=== PATIENT | male | born 1945 | race Caucasian/White ===

== ENCOUNTER 2017-06-11 12:09 | Inpatient (IN) | payer OTHER, MEDICARE ==
--- NOTE | 2017-06-11 15:01 | PDOC ---
History of Present Illness - General Chief Complaint: Weakness Stated Complaint: PCP SENT Time Seen by Provider: 06/11/17 13:31 History Source: Patient, Parent(s) Exam Limitations: No Limitations - History of Present Illness Initial Comments: This is a 71 YOM with h/o chronic worsening anemia, worsening renal function now CKD stage 4, IDDM, CAD with PR, HTN, and HLD who presents with generalized weakness, dizziness, exacerbated chronic dyspnea on exertion, fatigue, and mild intermittent LLQ pain. He was sent by Dr. Leslie with plan for admission for inpatient workup of his worsening anemia and worsening renal function. Reportedly the patient had a colonoscopy scheduled for Sunday which had to be cancelled because his providers did not believe he was stable to do this procedure as an outpatient. The patient's family reports that he has occasional blood in the stool but this is rare to their knowledge. He had an occult blood test positive recently. Past History - Past Medical History Allergies/Adverse Reactions: Allergies Allergy/AdvReac Type Severity Reaction Status Date / Time acetaminophen [From Percocet] AdvReac Intermediate nausea Verified 06/11/17 12: 28 oxycodone HCl [From Percocet] AdvReac Intermediate nausea Verified 06/11/17 12: 28 ticagrelor [From BRILINTA] AdvReac Intermediate Verified 06/11/17 12:28 Home Medications: Ambulatory Orders Cholecalciferol (Vitamin D3) [Vitamin D3] 1,000 unit PO DAILY tablet 09/02/12 Clopidogrel Bisulfate [Clopidogrel] 75 mg PO DAILY #90 tablet 01/10/16 Tamsulosin HCl 0.4 mg PO 2 QPM 05/19/16 Furosemide 40 mg PO DAILY tablet 08/14/16 Aspirin [ASA -] 81 mg PO DAILY 06/11/17 Carvedilol 12.5 mg PO BID 06/11/17 Famotidine 20 mg PO ASDIR 06/11/17 Anemia: Yes (taking iron) Asthma: No Cancer: No Cardiac Disorders: Yes (CAD) CVA: No COPD: No CHF: No Dementia: No Diabetes: Yes (x41 yrs) GI Disorders: Yes (GERD) Disorders: No HTN: Yes Hypercholesterolemia: Yes Liver Disease: No Seizures: No Thyroid Disease: No - Surgical History Abdominal Surgery: Yes (Left Inguinal Hernia Repair) Appendectomy: No Cardiac Surgery: Yes (Bypass Surgery 18 yrs ago, Followed by Stents placement x2 ) Cholecystectomy: No Lung Surgery: No Neurologic Surgery: No Orthopedic Surgery: Yes (Laminectomy) - Immunization History Immunization Up to Date: Yes - Suicide/Smoking/Psychosocial Hx Smoking History: Former smoker Have you smoked in the past 12 months: No If you are a former smoker, when did you quit?: 30YRS Information on smoking cessation initiated: No Hx Alcohol Use: No Drug/Substance Use Hx: No Substance Use Type: None Hx Substance Use Treatment: No Review of Systems - Review of Systems Constitutional: Yes: Weakness. No: Chills, Fever, Unexplained wgt Loss HEENTM: No: Nose Congestion, Throat Pain Respiratory: Yes: SOB with Exertion. No: Cough, Productive cough Cardiac (ROS): Yes: Lightheadedness. No: Chest Pain, Palpitations, Syncope ABD/GI: Yes: Other (mild left lower abdominal pain). No: Constipated, Diarrhea , Nausea, Vomiting : No: Burning, Dysuria Musculoskeletal: Yes: Back Pain (chronic). No: Neck Pain Integumentary: No: Bruising, Rash Neurological: Yes: Dizziness. No: Headache, Numbness, Tingling, Weakness Endocrine: No: Unexplained Weight Gain, Unexplained Weight Loss *Physical Exam - Vital Signs Last Vital Signs Temp Pulse Resp BP Pulse Ox 97.6 F 56 L 18 147/63 97 06/11/17 12:29 06/11/17 12:29 06/11/17 12:29 06/11/17 12:29 06/11/17 12:29 - Physical Exam General Appearance: Yes: Nourished, Appropriately Dressed, Other (pale, conversive, answering questions appropriately). No: Apparent Distress HEENT: positive: EOMI, SRINIVASAN, Normal ENT Inspection, Normal Voice, Hearing Grossly Normal. negative: Scleral Icterus (R), Scleral Icterus (L), Nasal Congestion Neck: positive: Trachea midline, Supple. negative: Tender, Rigid Respiratory/Chest: positive: Lungs Clear, Normal Breath Sounds. negative: Respiratory Distress, Crackles, Rhonchi, Stridor, Wheezing Cardiovascular: positive: Regular Rhythm, Regular Rate. negative: Edema, Murmur Gastrointestinal/Abdominal: positive: Normal Bowel Sounds, Soft. negative: Tender, Organomegaly, Pulsatile Mass, Guarding Musculoskeletal: positive: Normal Inspection. negative: CVA Tenderness, Decreased Range of Motion, Vertebral Tenderness Extremity: positive: Normal Capillary Refill, Normal Inspection, Normal Range of Motion. negative: Tender, Cyanosis Integumentary: positive: Normal Color, Dry, Warm, Pale. negative: Erythema, Rash, Bruising Neurologic: positive: building mover II-XII NML intact (grossly), Fully Oriented, Alert, Normal Mood/Affect, Normal Response, Motor Strength / ED Treatment Course - LABORATORY CBC & Chemistry Diagram: 06/12/17 06:00 06/12/17 06:00 Medical Decision Making - Medical Decision Making 71 YOM with worsening chronic anemia, CKD 4, IDDM, HTN, HLD, CAD with PR. Sent by his OP providers with instructions from Dr. Isac Leslie for admission an inpatient workup. Pt not stable for outpatient workup, colonoscopy cancelled recently for this reason. Pt and family note insidiously worsening pallor, TUCKER, fatigue, dizziness. On exam Pt is pale but otherwise normal exam, no tenderness. Ordered is CBCD, CMP, Mg, Phos, EKG, coags, lactate, FOB, UA cx. 06/11/17 15:[address] Del Valle, Pt's OP provider, who notes patient is to be admitted to hospitalist. Pending lab results. 06/11/17 17:06 Hgb 9.9, INR 1.25, BUN/Cr 104/4.5. Symphony microblogged and Pt admitted. *DC/Admit/Observation/Transfer Diagnosis at time of Disposition: Anemia Qualifiers: Anemia type: unspecified type Qualified Code(s): D64.9 - Anemia, unspecified Chronic kidney disease Qualifiers: Chronic kidney disease stage: stage 4 (severe) Qualified Code(s): N18.4 - Chronic kidney disease, stage 4 (severe) - Discharge Dispostion Condition at time of disposition: Guarded Admit: Yes
[2017-06-11 15:45] LABS: MCHC 33.8 g/dl (32.0-35.9); MEAN CELL VOLUME 85.7 fl (80-96); MEAN PLT VOLUME 7.1 fl (7.5-11.1); NEUTROPHILS 67.5 % (42.8-82.8); PLATELET COUNT 182 K/MM3 (134-434); RDW 15.5 % (11.9-15.9); WHITE BLOOD COUNT 4.7 K/mm3 (4.0-10.0)
[2017-06-11 16:13] LABS: ALBUMIN 3.4 g/dl (3.4-5.0); ANION GAP 13 (8-16); CALCIUM 7.9 mg/dL (8.5-10.1); CO2 23 mmol/L (21-32); CREATININE 4.5 mg/dL (0.7-1.3); GLUCOSE,RANDOM 249 mg/dL (74-106); MAGNESIUM 2.5 mg/dL (1.8-2.4); PHOSPHOROUS 5.6 mg/dL (2.5-4.9); SGOT/AST 16 U/L (15-37); SGPT/ALT 23 U/L (12-78)
[2017-06-11 16:15] LABS: ALK PHOS 108 U/L (45-117); BILIRUBIN,TOTAL 0.4 mg/dL (0.2-1.0); TOT PROT 7.2 g/dl (6.4-8.2)
[2017-06-11 16:36] LABS: INR 1.25 (0.82-1.09); PROTHROMBIN TIME (PATIENT) 14.1 SEC (9.98-11.88)
[2017-06-11 16:39] LABS: ACTIVATED PTT 31.8 SECONDS (26.9-34.4)
--- NOTE | 2017-06-11 17:02 | PDOC ---
Attending Attestation - HPI HPI: 06/11/17 17:05 71 y/o M with a PMHx of HTN, HLD, DM, CKD stage IV sent to ED by wool hanker for worsening anemia and renal function. Patient complains of fatigue and SOB, with occasional chest pain. He also reports LLQ pain and dark red blood per rectum. Patient had a colonoscopy scheduled for Sunday which had to be cancelled because his providers did not believe he was stable to do this procedure as an outpatient. Denies fever, chills. Denies nausea, vomiting, diarrhea. PCP: Dr. Bernardo Del Valle Director Of Restaurant Operations: Dr. Isac Leslie - Physicial Exam PE: 06/11/17 17:05 GENERAL: Awake, alert, and fully oriented, in no acute distress HEAD: No signs of trauma EYES: PERRLA, EOMI, sclera anicteric, conjunctiva clear ENT: Auricles normal inspection, hearing grossly normal, nares patent, oropharynx clear without exudates. Moist mucosa NECK: Normal ROM, supple, no lymphadenopathy, JVD, or masses LUNGS: Breath sounds equal, clear to auscultation bilaterally. No wheezes, and no crackles HEART: Regular rate and rhythm, normal S1 and S2, no murmurs, rubs or gallops ABDOMEN: Mild LLQ tenderness. Soft, normoactive bowel sounds. No guarding, no rebound. No masses EXTREMITIES: Warm, well perfused NEUROLOGICAL: A&Ox3 SKIN: Warm, Dry, normal turgor, no rashes or lesions noted. Pale. - Medical Decision Making 06/11/17 17:05 Documentation prepared by Kierra Zamarripa, acting as diagnostic medical sonographer for Alma Higginbotham MD. <Kierra Zamarripa - Last Filed: 06/11/17 17:05> - Resident Resident Name: Shameka Carver - ED Attending Attestation I have performed the following: I have examined & evaluated the patient, The case was reviewed & discussed with the resident, I agree w/resident's findings & plan, Exceptions are as noted - HPI HPI: 06/11/17 17:01 - Medical Decision Making 06/11/17 17:01 71 YOM with h/o chronic worsening anemia, worsening renal function now CKD stage 4, IDDM, CAD with [place], HTN, and HLD. only c/o worsening fatigue and pallor. denies melena. no f/c no chest pain. differential worsening renal function, gi bleed, electrolyte abnormality, acs. plan ekg labs cxr, will admit . <Alma Higginbotham - Last Filed: 06/11/17 17:09> Heart Score/ECG Review #1 General ECG Interpretation: Sinus Rhythm, Normal Rate, Normal Intervals, No acute ischemic changes (TWi I, AVL) Compared to previous ECG there are: No significant change (comparison 07/23/15) <Alma Higginbotham - Last Filed: 06/11/17 17:09>
[2017-06-11 17:13] LABS: PH,URINE 5.5 (5.0-8.0); URINE APPEARANCE CLEAR; URINE BILIRUBIN NEGATIVE (NEGATIVE); URINE BLOOD 1+ (NEGATIVE); URINE COLOR LT. YELLOW; URINE GLUCOSE (UA) 1+ (NEGATIVE); URINE KETONE NEGATIVE (NEGATIVE); URINE NITRITE NEGATIVE (NEGATIVE); URINE UROBILINOGEN 0.2 mg/dL (0.2-1.0)
[2017-06-11 17:17] LABS: URINE PROTEIN 2+ (NEGATIVE)
--- NOTE | 2017-06-11 18:24 | HP ---
Admitting History and Physical - Primary Care Physician PCP: Bernardo Del Valle - Admission Chief Complaint: sent by PCP History of Present Illness: 71M PMH of chronic anemia on iron, CKD stage 4, IDDM, [place] in the past CAD s/p CABG and subsequent stent x2, HTN, and HLD who presents to the ED sent in by Dr. Fernandez for further work up. Patient was supposed to have EGD/colonoscopy today but that was held as outpatient providers feel like he is too high of a risk to have procedures done as outpatient. patient is also currently being worked up for malignancy, anemia and GI bleed. other than EGD/Colonoscopy patient was supposed to have bone marrow biopsy by Dr. Lisa. According to Dr. Fernandez patient has been having worsening of his renal failure and anemia. He has also been having occasional blood with his stools. The patient reports generalized weakness, dizziness, exacerbated chronic dyspnea on exertion, fatigue, and mild intermittent LLQ pain. Per ED chart the patient's family reports that he has occasional blood in the stool. Patient stated he was told the testing on his stool was positive for blood recently. On review of his recent labs within the last 6 months the patient's Creatinine has been worsening. He also had a positive urine protein electrophoresis in November and January of this year. He denies nausea vomiting fevers chills chest pain or shortness of breath. He does endorse he occasionally coughs up blood. Of note patient seems to be a poor historian. Patient has had his plavix held since 06/07 in anticipation for procedures. History Source: Patient, Medical Record Limitations to Obtaining History: Clinical Condition, Poor Historian - Past Medical History Additional Past Medical History: HTN HLD CAD history of [place] s/p CAG and stent x2 CKD stage 4 iron deficiency anemia GI bleed possible malignancy ? Multiple myeloma - Past Surgical History Additional Past Surgical History: CABG and cath with stent x 2 - Smoking History Smoking history: Former smoker Have you smoked in the past 12 months: No If you are a former smoker, when did you quit?: 30YRS - Alcohol/Substance Use Hx Alcohol Use: No Home Medications - Allergies Allergies/Adverse Reactions: Allergies Allergy/AdvReac Type Severity Reaction Status Date / Time acetaminophen [From Percocet] AdvReac Intermediate nausea Verified 06/11/17 12: 28 oxycodone HCl [From Percocet] AdvReac Intermediate nausea Verified 06/11/17 12: 28 ticagrelor [From BRILINTA] AdvReac Intermediate Verified 06/11/17 12:28 - Home Medications Home Medications: Ambulatory Orders Cholecalciferol (Vitamin D3) [Vitamin D3] 1,000 unit PO DAILY tablet 09/02/12 Clopidogrel Bisulfate [Clopidogrel] 75 mg PO DAILY #90 tablet 01/10/16 Tamsulosin HCl 0.4 mg PO 2 QPM 05/19/16 Furosemide 40 mg PO DAILY tablet 08/14/16 Aspirin [ASA -] 81 mg PO DAILY 06/11/17 Carvedilol 12.5 mg PO BID 06/11/17 Famotidine 20 mg PO ASDIR 06/11/17 Family Disease History - Family Disease History Family Disease History: CA: Mother, Sister Review of Systems Findings/Remarks: ROS positive for weakness dizziness constipation likely from iron dyspnea on exertion LLQ pain fatigue Physical Examination Vital Signs: Vital Signs Temperature 98.4 F 06/11/17 16:33 Pulse Rate 71 06/11/17 16:33 Respiratory Rate 16 06/11/17 16:33 Blood Pressure 184/70 06/11/17 16:33 O2 Sat by Pulse Oximetry (%) 98 06/11/17 16:33 Constitutional: Yes: Well Nourished, No Distress, Other (pale appearing skin) Eyes: Yes: Other (conjunctival pallor) HENT: Yes: Atraumatic Neck: Yes: Supple Cardiovascular: Yes: Regular Rate and Rhythm Respiratory: Yes: CTA Bilaterally Gastrointestinal: Yes: Soft, Other (patient vaguely complained on diffuse tenderness on exama mostly in the LLQ) ...Rectal Exam: Yes: Other (see attending note) Edema: No ...Motor Strength: WNL Psychiatric: Yes: Alert Labs: CBC, BMP 06/11/17 14:50 06/11/17 14:50 Imaging - Results Chest X-ray: Other (ordered) EKG: Report Reviewed, Image Reviewed Assessment/Plan 71M with multiple medical problems presents to the ED for continued evaluation of his worsening anemia and worsening CKD. Problem list: Worsening CKD although it could be CHIARA on CKD Anemia-iron deficiency vs anemia of chronic disease rectal Bleed-likely lower GI bleed-diverticulosis vs fissure vs hemorrhoids HTN HLD IDDM CAD Possible Cancer constipation uremia possibly minimally volume overloaded hemoptysis Plan: Admit to inpatient services Med/surg Hold plavix hold aspirin consult GI for EGD/Colonoscopy consult vascular for AVF consult heme/onc for bone marrow biopsy consult renal for continued evaluation of worsening CKD and evaluation for future dialysis start stool softeners patient possible having platelet dysfunction from uremia hold IVF hold lasix for now but may need it in the near future during this hospital stay CXR Urinalysis urine protein to creatinine ratio renal ultrasound bladder ultrasound will need to verify home meds and restart hold nephrotoxic drugs such as NSAIDs LUZMARIA-inhibitors/ARBs etc no IVF DVT PPx PT consult BGM ISS B12 folate fecal occult repeat Iron studies Case disussed with attending Dr Spicer Case disussed with Dr. Michelle Fernandez Case discussed with admitting partner marketing intern Full H&P to follow Visit type - Emergency Visit Emergency Visit: Yes ED Registration Date: 06/11/17 Care time: The patient presented to the Emergency Department on the above date and was hospitalized for further evaluation of their emergent condition. - New Patient This patient is new to me today: Yes Date on this admission: 06/11/17 - Critical Care Critical Care patient: No
[2017-06-11] MEDS ORDERED: POLYETHYLENE GLYCOL 3350 119 GM BTL PO PRN (19:45)
--- NOTE | 2017-06-11 19:48 | PN ---
Teaching Attending Note Name of Resident: Manuela Chang ATTENDING PHYSICIAN STATEMENT I saw and evaluated the patient. I reviewed the resident's note and discussed the case with the resident. I agree with the resident's findings and plan as documented. SUBJECTIVE: CC: sent by Dr. Henry Fernandez for w/u of anemia and worsening renal failure . he is a poor historian HPI: 71 y/o pleasant gentleman with h/o hypertension, hyperlipidemia, osteomyletis, polyneuropathy,IDDM , CAD status post MD status post CABG status post stents, and status post right hip replacement surgery, who presented for w /u of his anemia and worsening renal failur e He recently had w/u as outpt which indicated worsening labs. he had SPEP and UPEP done in 01/20, and last iron studies in system from 2010.He complains of BRBPR only when he wipes himself. He complains of constipation, he denies hematuria. he reported broan sputum and sometimes hemoptysis , minimal amounts . He has intermittent chronic abd pain in L side , which feels like shooting pain , that lasts 2 min. reports TUCKER. no fever or cough, reports chills. OBJECTIVE: NAD, pleasant and cooperative HEENT: NC, AT. MMM, no JVD. EOMI, round equal pupils , reactive to light . CV: RRR, no MRG Lungs: CTAB Abd: soft, minimal tenderness to palpationin all quadrants, no rebound tenderness or guarding. NL bS Ext: 1+ pitting edema. no tenia pedis. no ulcers on feet Neuro : EOMI, round equal pupils , reactive to light . no facial droop.Nl facial sensation . tongue and uvula at midline . Strength 5/5 in upper and lower extremities proximally and distally. sensation to light touch NL . reflexes 1+ knee jerk and 2+ biceps reflexes b/l Recta: nl hair distribution, no external hemorrhoids , no internal hemorrhoids, . small balls of stool felt in rectum. guaiac + ASSESSMENT AND PLAN: 71 y/o pleasant gentleman with h/o hypertension, hyperlipidemia, osteomyletis, polyneuropathy,IDDM , CAD status post MD status post CABG status post stents, and status post right hip replacement surgery, who presented for w/u of his anemia and worsening renal failure 1- Worsening renal failure: Cr 3.7 in 6/17. Doubt CHIARA. likely progression of his CKD. No renal bx was done before Likely cause of renal disease is HTN and DM, but given his anemia and his age , MM is in DDx. He is not on NSAIDs or ACEi/ARBS. - check renal US ( last one insystem 08/22) - check Urine protein / cr ratio - check UA - renal consult - He has signs and sx of mild fluid overload. but no indication of acute HD now - consult vascular to evaluate for graft - No IVF . - hold home lasix, will probably resume soon 2- Chronic normocytic anemia: Hb at base line. likely due to Dm and renal disease. As above, WARD is in DDX. SPEP in 02/19 with Nl immunofixation. reported rectal bleed could be due to hemorrhoidal bleed in setting of constipation. rectal exam with + OB . no hemorrhoids or masses felt No recent iron studies in system. - check iron studies, B12, folate - Heme consult . - GI consult for colonoscopy - No need to repeat SPEP and UPEP. had a skeletal survey 02/19 no lytic lesions 3- Rectal bleed: likely lower GI bleed from an internal hemorrhoids. I do not suspect diverticular bleed or any ischemic colitis . colon cancer can't be r/o dysfunctional plt might be contributing . - GI consult , will need colonoscopy and EGD - monitor HB 4- reported occasional Hemoptysis. former smoker. - cxray - observe .stable HB . rest as out pt 5- DM : - levemir 20 HS - SSI AC 6- HTN: will confirm meds. - cont coreg - No ARBs or ACEI at this time 7- h/o CAD: - cont BB - hold ASA and plavix for any procedure .( plavix taken 06/07) 8- DVT PX : heparin sq HLOC Will confirm meds
[2017-06-11 20:31] VITALS: BMI 27.5
--- NOTE | 2017-06-11 21:23 | HP ---
CHIEF COMPLAINT: sent by Cable Former PCP: Dr. Del Valle Cable Former: Dr. Isac Seymour Heme-Oncologist: Dr. Lisa HISTORY OF PRESENT ILLNESS: 71yo M with PMH of chronic anemia, worsening CKD stage IV, IDDM, CAD with CO, htn, hld, presents for work-up of his worsening kidney function and chronic anemia. SPEP adn UPEP showing no M spike in 01/2017. Iron studies wnl, last assessed in 2010. Pt reports exacerbated chronic dyspnea on exertion and fatigue. Pt also reports intermittent hemoptysis, intermittent brbpr (small amount on toilet tissue), and intermittent abdominal pain (worse on movement, not present on exam). Pt denies sick contacts. Pt is a poor historian. ER course was notable for: (1) cbc -> H/H 9.9/29.3, cmp -> BUN/Cr 103/4.5, elevated phos and mg (2) UA (-) for UTI Recent Travel: denies PAST MEDICAL HISTORY: chronic anemia CKD Stage IV CAD with CO IDDM x 41 yrs, with neuropathy htn hld GERD osteomyelitis PAST SURGICAL HISTORY: Left inguinal hernia repair CABG s/p 2 stents laminectomy Right hip replacement Social History: Smoking: former, quit 30 yrs ago Alcohol: denies Drugs: denies Family History: mom - DM, of cancer (unknown type) at age 69 sister - of cancer (unknown type) at age 62 son - htn Allergies acetaminophen [From Percocet] Adverse Reaction (Intermediate, Verified 06/11/17 12:28) nausea oxycodone HCl [From Percocet] Adverse Reaction (Intermediate, Verified 06/11/17 12:28) nausea ticagrelor [From BRILINTA] Adverse Reaction (Intermediate, Verified 06/11/17 12: 28) HOME MEDICATIONS: Home Medications Medication Instructions Recorded Cholecalciferol (Vitamin D3) 1,000 unit PO DAILY tablet 09/02/12 [Vitamin D3] Clopidogrel Bisulfate [Clopidogrel] 75 mg PO DAILY #90 tablet 01/10/16 Tamsulosin HCl 0.4 mg PO 2 QPM 05/19/16 Furosemide 40 mg PO DAILY tablet 08/14/16 Aspirin [ASA -] 81 mg PO DAILY 06/11/17 Carvedilol 12.5 mg PO BID 06/11/17 Famotidine 20 mg PO ASDIR 06/11/17 REVIEW OF SYSTEMS CONSTITUTIONAL: Present: generalized weakness Absent: fever, chills, diaphoresis, weight change HEENT: Absent: rhinorrhea, nasal congestion, throat pain,ear pain, eye pain, visual changes CARDIOVASCULAR: Absent: chest pain, syncope, palpitations, irregular heart rate, lightheadedness , peripheral edema RESPIRATORY: Present: dyspnea on exertion (chronic), hemoptysis (intermittent, small amount) Absent: cough, shortness of breath, wheezing, stridor GASTROINTESTINAL: Present: abdominal pain (intermittent), constipation (chronic), hematochezia ( intermittent, small amount) Absent: abdominal distension, nausea, vomiting, diarrhea, melena GENITOURINARY: Absent: dysuria, hematuria SKIN: Absent: rash, itching, pallor HEMATOLOGIC/IMMUNOLOGIC: Absent: easy bleeding, easy bruising PHYSICAL EXAMINATION Vital Signs - 24 hr 06/11/17 18:26 Temperature 97.8 F Pulse Rate [ 60 Left Apical] Respiratory 16 Rate Blood Pressure 185/79 [Right Arm] O2 Sat by Pulse 96 Oximetry (%) GENERAL: Awake, alert, and fully oriented, in no acute distress. HEAD: Normal with no signs of trauma. EYES: Pupils equal, round and reactive to light, extraocular movements intact, sclera anicteric. EARS, NOSE, THROAT: Ears normal, nares patent, oropharynx clear without exudates. Moist mucous membranes. NECK: Supple without lymphadenopathy, JVD, or masses. LUNGS: Breath sounds equal, clear to auscultation bilaterally. No wheezes, and no crackles. No accessory muscle use. HEART: Regular rate and rhythm, normal S1 and S2 without murmur, rub or gallop. ABDOMEN: Soft, nontender, not distended, normoactive bowel sounds, no guarding, no rebound, no masses. MUSCULOSKELETAL: No bony deformities or tenderness. Muscle strength 5/5 for hip flexion, plantar flexion, dorsiflextion, shoulder abduction, elbow flexion/ extension, hand squeeze. UPPER EXTREMITIES: Warm, well-perfused. No cyanosis. No clubbing. No peripheral edema. LOWER EXTREMITIES: 2+ pulses, warm, well-perfused. No calf tenderness. No peripheral edema. NEUROLOGICAL: Sensation intact throughout. Slight decrease in sensation to kylie feet, symmetric. PSYCHIATRIC: Cooperative. Good eye contact. Appropriate mood and affect. SKIN: Warm, dry, normal turgor, no rashes or lesions noted. Laboratory Results - last 24 hr 06/11/17 06/11/17 06/11/17 14:50 14:50 14:50 WBC 4.7 RBC 3.42 L Hgb 9.9 L Hct 29.3 L MCV 85.7 MCH 29.0 MCHC 33.8 RDW 15.5 Plt Count 182 MPV 7.1 L Neutrophils % 67.5 Lymphocytes % 13.6 Monocytes % 14.9 H Eosinophils % 3.0 Basophils % 1.0 Total Absolute Neuts 3.20 PT with INR INR PTT (Actin FS) Sodium 137 Potassium 4.1 Chloride 101 Carbon Dioxide 23 Anion Gap 13 BUN 103 H Creatinine 4.5 H Creat Clearance w eGFR 12.98 Random Glucose 249 H Lactic Acid Calcium 7.9 L Phosphorus 5.6 H Magnesium 2.5 H Total Bilirubin 0.4 AST 16 ALT 23 Alkaline Phosphatase 108 Total Protein 7.2 Albumin 3.4 Urine Color Urine Appearance Urine pH Ur Specific [place] Urine Protein Urine Glucose (UA) Urine Ketones Urine Blood Urine Nitrite Urine Bilirubin Urine Urobilinogen Urine RBC Urine WBC Ur Epithelial Cells Stool Occult Blood Blood Type Antibody Screen 06/11/17 06/11/17 06/11/17 14:50 14:50 14:50 WBC RBC Hgb Hct MCV MCH MCHC RDW Plt Count MPV Neutrophils % Lymphocytes % Monocytes % Eosinophils % Basophils % Total Absolute Neuts PT with INR 14.10 H INR 1.25 H PTT (Actin FS) 31.8 Sodium Potassium Chloride Carbon Dioxide Anion Gap BUN Creatinine Creat Clearance w eGFR Random Glucose Lactic Acid 1.3 Calcium Phosphorus Magnesium Total Bilirubin AST ALT Alkaline Phosphatase Total Protein Albumin Urine Color Urine Appearance Urine pH Ur Specific [place] Urine Protein Urine Glucose (UA) Urine Ketones Urine Blood Urine Nitrite Urine Bilirubin Urine Urobilinogen Urine RBC Urine WBC Ur Epithelial Cells Stool Occult Blood Blood Type B POSITIVE Antibody Screen Negative 06/11/17 06/11/17 17:00 Unknown WBC RBC Hgb Hct MCV MCH MCHC RDW Plt Count MPV Neutrophils % Lymphocytes % Monocytes % Eosinophils % Basophils % Total Absolute Neuts PT with INR INR PTT (Actin FS) Sodium Potassium Chloride Carbon Dioxide Anion Gap BUN Creatinine Creat Clearance w eGFR Random Glucose Lactic Acid Calcium Phosphorus Magnesium Total Bilirubin AST ALT Alkaline Phosphatase Total Protein Albumin Urine Color Lt. yellow Urine Appearance Clear Urine pH 5.5 Ur Specific [place] 1.015 Urine Protein 2+ H Urine Glucose (UA) 1+ H Urine Ketones Negative Urine Blood 1+ H Urine Nitrite Negative Urine Bilirubin Negative Urine Urobilinogen 0.2 Urine RBC 2-5 Urine WBC None Ur Epithelial Cells Rare Stool Occult Blood Negative Blood Type Antibody Screen ASSESSMENT/PLAN: 71yo M with PMH of chronic anemia, worsening CKD stage IV, IDDM, CAD with CO, htn, hld, presents for work-up of his worsening kidney function and chronic anemia. 1) worsening renal failure - likely progressive, Cr 3.7 (01/2017) and 2.1 (07/2015) - Renal Consult - Vascular Surgery Consult - to assess for AV fistula - hold IVFs and diuretics at this time - f/u renal US, compare to most recent (from 08/2016) - f/u Urine Protein:Cr ratio 2) chronic normocytic anemia - likely 2/2 anemia of chronic disease and renal failure causing lack of epogen and bone marrow suppression. Although Ddx includes MM. - hgb at baseline - Heme-Oncology Consult - for bone marrow biopsy - f/u iron studies, vit B12, folate - GI Consult - for EGD 3) bright red blood per rectum - likely lower GI bleed, possibly 2/2 internal hemorrhoidal bleeding due to strain with chronic constipation - per rectal exam performed by Dr. Spicer: no hemorrhoids or masses, bedside stool for occult blood (+) - repeat stool for occult blood - GI Consult - for colonoscopy - GI ppx 4) constipation - add Colace, Senna, and Miralax - monitor for rectal bleeding 5) hemoptysis - former smoker - f/u CXR -> if normal, defer further work-up for outpatient 6) IDDM - Levemir 20U SQ HS - Novolog SSI - BGMs - continue home med of Neurontin for neuropathy - hold Glimepiride 7) htn - continue home med of Carvedilol - hold any ACEi/ARBs 8) hld - continue home med of Lipitor 9) CAD - continue home med of Carvedilol - hold Plavix and ASA 10) FEN - Fluids: po - Electrolytes: hypermagnesemia and hyperphosphatemia noted, continue to monitor - Nutrition: npo, for possible procedure tomorrow 11) Prophylaxis - DVT ppx with Heparin 5,000U SQ TID - GI ppx with Protonix 20mg daily - deconditioning ppx with PT Consult Visit type - Emergency Visit Emergency Visit: Yes ED Registration Date: 06/11/17 Care time: The patient presented to the Emergency Department on the above date and was hospitalized for further evaluation of their emergent condition. - New Patient This patient is new to me today: Yes Date on this admission: 06/11/17 - Critical Care Critical Care patient: No
[2017-06-11] MEDS: DOCUSATE SODIUM 100 MG CAPSULE (FP) PO SCH (21:40)
[2017-06-11] MEDS: SENNOSIDES 8.6MG TABLET (FP) PO SCH (21:41)
[2017-06-11] MEDS: CARVEDILOL 12.5 MG TABLET (FP) PO SCH (21:41)
[2017-06-11] MEDS: TAMSULOSIN HCL 0.4 MG CAP.ER.24H (FP) PO SCH (21:41)
[2017-06-11] MEDS: ATORVASTATIN CA 20 MG TABLET (FP) PO SCH (21:42)
[2017-06-11] MEDS: HEPARIN NA (PORCINE) 5,000 UNITS/ML 1ML VIAL SQ SCH (21:44)
[2017-06-11 21:55] LABS: URINE LEUK ESTERASE Negative (NEGATIVE)
[2017-06-11] MEDS ORDERED: INSULIN DETEMIR 100 UNITS/ML MDV SQ SCH ×2 (22:00)
[2017-06-12] MEDS: DOCUSATE SODIUM 100 MG CAPSULE (FP) PO SCH ×3 (06:10→21:14)
[2017-06-12] MEDS: HEPARIN NA (PORCINE) 5,000 UNITS/ML 1ML VIAL SQ SCH ×3 (06:10→21:14)
[2017-06-12] MEDS: INSULIN SLIDING SCALE (NOVOLOG) 1 VIAL SQ SCH ×3 (06:12→17:14)
[2017-06-12 07:37] LABS: EOSINOPHIL 3.3 % (0-4.5); MCH 28.8 pg (25.7-33.7); MCHC 34.2 g/dl (32.0-35.9); MEAN CELL VOLUME 84.2 fl (80-96); MEAN PLT VOLUME 6.8 fl (7.5-11.1); NEUTROPHILS 66.2 % (42.8-82.8); PLATELET COUNT 176 K/MM3 (134-434); WHITE BLOOD COUNT 4.2 K/mm3 (4.0-10.0)
--- NOTE | 2017-06-12 07:38 | EKG ---
Test Reason : Blood Pressure : / mmHG Vent. Rate : 057 BPM Atrial Rate : 057 BPM P-R Int : 194 ms QRS Dur : 104 ms QT Int : 482 ms P-R-T Axes : 056 -11 141 degrees QTc Int : 469 ms SINUS BRADYCARDIA LEFT VENTRICULAR HYPERTROPHY WITH REPOLARIZATION ABNORMALITY ABNORMAL ECG WHEN COMPARED WITH ECG OF 28-OCT-2010 15:34, NO SIGNIFICANT CHANGE WAS FOUND Confirmed by GERALD AZEVEDO MD ([id number]) on 06/12/2017 7:38:19 AM Referred By: Confirmed By:GERALD AZEVEDO MD
[2017-06-12 07:46] LABS: ANION GAP 9 (8-16); CALCIUM 8.3 mg/dL (8.5-10.1); CO2 28 mmol/L (21-32); GLUCOSE,RANDOM 74 mg/dL (74-106); MAGNESIUM 2.5 mg/dL (1.8-2.4)
[2017-06-12 07:47] LABS: CREATININE 4.1 mg/dL (0.7-1.3); PHOSPHOROUS 4.9 mg/dL (2.5-4.9)
[2017-06-12 07:50] LABS: FERRITIN 45.404 ng/ml (16.4-293.9)
[2017-06-12 08:10] LABS: INR 1.26 (0.82-1.09); PROTHROMBIN TIME (PATIENT) 14.2 SEC (9.98-11.88)
[2017-06-12] MEDS: PANTOPRAZOLE 40 MG TABLET (FP) PO SCH (11:00)
[2017-06-12] MEDS: CITALOPRAM HYDROBROMIDE 20 MG TABLET (FP) PO SCH (11:00)
[2017-06-12] MEDS: amLODIPine BESYLATE 5 MG TABLET (FP) PO SCH (11:00)
[2017-06-12] MEDS: GABAPENTIN 100 MG CAPSULE (FP) PO SCH (11:00)
[2017-06-12] MEDS: SENNOSIDES 8.6MG TABLET (FP) PO SCH ×2 (11:00→21:14)
[2017-06-12] MEDS: CARVEDILOL 12.5 MG TABLET (FP) PO SCH ×2 (11:00→21:14)
--- NOTE | 2017-06-12 11:39 | CON.GI ---
Consult Consult Specialty:: GI Referred by:: service Reason for Consultation:: anemia, hematochezia - History of Present Illness History of Present Illness: Chart, ED, H&P reviewed. A 71 yom with chronic anemia, stage IV CKD, IDDM, CAD with MT, HTN, admitted for worsening anemia, intermittent, painless hematiochezia and generalized, on/ off, mild abdominal pain w/o alleviating, or aggravating factors. No nausea, vomiting, melena, dyspesia, dysphagia, odynophagia, jaundice, fever. The patient has 2 episodes of non-spontaneous, painless, small amounts of BRBPR with brown, formed stools. - History Source History Provided By: Patient, Medical Record - Alcohol/Substance Use Hx Alcohol Use: No - Smoking History Smoking history: Former smoker Have you smoked in the past 12 months: No If you are a former smoker, when did you quit?: 30YRS Home Medications - Allergies Allergies/Adverse Reactions: Allergies Allergy/AdvReac Type Severity Reaction Status Date / Time acetaminophen [From Percocet] AdvReac Intermediate nausea Verified 06/11/17 12: 28 oxycodone HCl [From Percocet] AdvReac Intermediate nausea Verified 06/11/17 12: 28 ticagrelor [From BRILINTA] AdvReac Intermediate Verified 06/11/17 12:28 - Home Medications Home Medications: Ambulatory Orders Cholecalciferol (Vitamin D3) [Vitamin D3] 1,000 unit PO DAILY tablet 09/02/12 Clopidogrel Bisulfate [Clopidogrel] 75 mg PO DAILY #90 tablet 01/10/16 Tamsulosin HCl 0.4 mg PO 2 QPM 05/19/16 Furosemide 40 mg PO DAILY tablet 08/14/16 Aspirin [ASA -] 81 mg PO DAILY 06/11/17 Carvedilol 12.5 mg PO BID 06/11/17 Famotidine 20 mg PO ASDIR 06/11/17 Family Disease History - Family Disease History Family History: Unremarkable Family Disease History: CA: Mother, Sister Review of Systems Findings/Remarks: Jake refer to HPI, ED and H&P records Physical Exam-GI Vital Signs: Vital Signs Temperature 98.2 F 06/12/17 09:00 Pulse Rate 59 L 06/12/17 09:00 Respiratory Rate 18 06/12/17 09:00 Blood Pressure 164/68 06/12/17 09:00 O2 Sat by Pulse Oximetry (%) 96 06/11/17 18:26 Constitutional: Yes: No Distress, Calm Eyes: Yes: Conjunctiva Clear HENT: Yes: Atraumatic Neck: Yes: Supple Cardiovascular: Yes: Regular Rate and Rhythm Respiratory: Yes: Regular Gastrointestinal Inspection: No: Distention ...Auscultate: Yes: Normoactive Bowel Sounds ...Palpate: Yes: Soft. No: Firm/Rigid, Guarding, Mass, Tenderness Neurological: Yes: Alert, Oriented Labs: CBC, BMP 06/12/17 06:00 06/12/17 06:00 INR, PTT INR 1.26 (0.82-1.09) H 06/12/17 06:00 CBCD WBC 4.2 K/mm3 (4.0-10.0) 06/12/17 06:00 RBC 3.52 M/mm3 (4.00-5.60) L 06/12/17 06:00 Hgb 10.1 GM/dL (11.7-16.9) L 06/12/17 06:00 Hct 29.6 % (35.4-49) L 06/12/17 06:00 MCV 84.2 fl (80-96) 06/12/17 06:00 MCHC 34.2 g/dl (32.0-35.9) 06/12/17 06:00 RDW 16.0 % (11.9-15.9) H 06/12/17 06:00 Plt Count 176 K/MM3 (134-434) 06/12/17 06:00 MPV 6.8 fl (7.5-11.1) L 06/12/17 06:00 CMP Sodium 143 mmol/L (136-145) 06/12/17 06:00 Potassium 4.4 mmol/L (3.5-5.1) 06/12/17 06:00 Chloride 106 mmol/L (98-107) 06/12/17 06:00 Carbon Dioxide 28 mmol/L (21-32) D 06/12/17 06:00 Anion Gap 9 (8-16) 06/12/17 06:00 BUN 90 mg/dL (7-18) H 06/12/17 06:00 Creatinine 4.1 mg/dL (0.7-1.3) H 06/12/17 06:00 Creat Clearance w eGFR 12.98 (>60) 06/11/17 14:50 Calcium 8.3 mg/dL (8.5-10.1) L 06/12/17 06:00 Total Bilirubin 0.4 mg/dL (0.2-1.0) 06/11/17 14:50 AST 16 U/L (15-37) 06/11/17 14:50 ALT 23 U/L (12-78) 06/11/17 14:50 Alkaline Phosphatase 108 U/L (45-117) 06/11/17 14:50 Total Protein 7.2 g/dl (6.4-8.2) 06/11/17 14:50 Albumin 3.4 g/dl (3.4-5.0) 06/11/17 14:50 Problem List - Problems (1) Anemia Code(s): D64.9 - ANEMIA, UNSPECIFIED Qualifiers: Anemia type: unspecified type Qualified Code(s): D64.9 - Anemia, unspecified; D64.9 - Anemia, unspecified (2) Hematochezia Code(s): K92.1 - MELENA (3) Chronic anemia Code(s): D64.9 - ANEMIA, UNSPECIFIED (4) Chronic disease anemia Code(s): D63.8 - ANEMIA IN OTHER CHRONIC DISEASES CLASSIFIED ELSEWHERE (5) Generalized abdominal pain Code(s): R10.84 - GENERALIZED ABDOMINAL PAIN Assessment/Plan A 71 yom with multiple, advanced, active medical issues including chronic anemia (CKD, anemia of chronic disease), now presents with hematochezia and mild , nonspecific abdominal pain. Evaluate for upper GI inflammatory states, angiectasia, diverticulosis, colitis , neoplasm. Plan EGD and colonoscopy tomorrow Clear liquid diet to day Agree with PPI other acute issues as per primary team Monitor for bleeding GI plan of care discussed with the patient.
[2017-06-12 13:55] LABS: URINE CREATININE 56.7 mg/dL (20-370)
--- NOTE | 2017-06-12 13:58 | CONSULT ---
Consult Consult Specialty:: Nephrology Reason for Consultation:: CKD - History of Present Illness Chief Complaint: send in for anemia and worsening of renal function History of Present Illness: Pt is a 71 year old male with pmhx of CKD, DM. CAD, HTN, and chol who was sent in to the ER for worsening renal function and anemia. He was scheduled for an outpt endoscopy however was though to be unstable. He has CKD and follows with Dr Fernandez. He does see blood in his stool at times. He complains of malaise and fatigue with ambulation. He does get shortness of breath when exerted. He denies dysuria or hematuria. He says he has appetite. He denies nsaid use. - History Source History Provided By: Patient, Medical Record - Past Medical History Cardio/Vascular: Yes: CAD, HTN, Hyperlipdemia Gastrointestinal: Yes: GI Bleed Renal/: Yes: Renal Inusuff - Alcohol/Substance Use Hx Alcohol Use: No - Smoking History Smoking history: Former smoker Have you smoked in the past 12 months: No If you are a former smoker, when did you quit?: 30YRS Home Medications - Allergies Allergies/Adverse Reactions: Allergies Allergy/AdvReac Type Severity Reaction Status Date / Time acetaminophen [From Percocet] AdvReac Intermediate nausea Verified 06/11/17 12: 28 oxycodone HCl [From Percocet] AdvReac Intermediate nausea Verified 06/11/17 12: 28 ticagrelor [From BRILINTA] AdvReac Intermediate Verified 06/11/17 12:28 - Home Medications Home Medications: Ambulatory Orders Cholecalciferol (Vitamin D3) [Vitamin D3] 1,000 unit PO DAILY tablet 09/02/12 Clopidogrel Bisulfate [Clopidogrel] 75 mg PO DAILY #90 tablet 01/10/16 Tamsulosin HCl 0.4 mg PO 2 QPM 05/19/16 Furosemide 40 mg PO DAILY tablet 08/14/16 Aspirin [ASA -] 81 mg PO DAILY 06/11/17 Carvedilol 12.5 mg PO BID 06/11/17 Famotidine 20 mg PO ASDIR 06/11/17 Family Disease History - Family Disease History Family Disease History: CA: Mother, Sister Review of Systems - Review of Systems Constitutional: reports: Malaise. denies: Loss of Appetite Eyes: reports: No Symptoms HENT: reports: No Symptoms Neck: reports: No Symptoms Cardiovascular: reports: No Symptoms Respiratory: reports: SOB on Exertion Gastrointestinal: reports: Rectal Bleeding Genitourinary: reports: No Symptoms Musculoskeletal: reports: No Symptoms Neurological: reports: No Symptoms Endocrine: reports: No Symptoms Hematology/Lymphatic: reports: No Symptoms Physical Exam Vital Signs: Vital Signs Temperature 98.2 F 06/12/17 09:00 Pulse Rate 59 L 06/12/17 09:00 Respiratory Rate 18 06/12/17 09:00 Blood Pressure 164/68 06/12/17 09:00 O2 Sat by Pulse Oximetry (%) 97 06/12/17 09:00 Constitutional: Yes: Calm Eyes: Yes: Conjunctiva Clear HENT: Yes: Atraumatic Cardiovascular: Yes: S1, S2 Respiratory: Yes: CTA Bilaterally Gastrointestinal: Yes: Soft Renal/: Yes: WNL. No: CVA Tenderness - Left, CVA Tenderness - Right Musculoskeletal: Yes: WNL Edema: No Neurological: Yes: Oriented Psychiatric: Yes: Oriented Labs: CBC, BMP 06/12/17 06:00 06/12/17 06:00 Laboratory Tests 01/29/17 06/11/17 06/11/17 15:19 14:50 14:50 Hgb 9.9 L Sodium Potassium Chloride Carbon Dioxide Anion Gap BUN 103 H Creatinine 4.5 H Phosphorus Urine Protein Urine Blood Stool Occult Blood WILLIAN M-Abel Not observed 06/11/17 06/11/17 06/12/17 17:00 Unknown 06:00 Hgb 10.1 L Sodium Potassium Chloride Carbon Dioxide Anion Gap BUN Creatinine Phosphorus Urine Protein 2+ H Urine Blood 1+ H Stool Occult Blood Negative WILLIAN M-Abel 06/12/17 06:00 Hgb Sodium 143 Potassium 4.4 Chloride 106 Carbon Dioxide 28 D Anion Gap 9 BUN 90 H Creatinine 4.1 H Phosphorus 4.9 Urine Protein Urine Blood Stool Occult Blood WILLIAN M-Abel Imaging - Results Ultrasound: Report Reviewed Assessment/Plan Current Medications Generic Name Dose Route Start Last Admin Trade Name Freq PRN Reason Stop Dose Admin Amlodipine Besylate 5 mg 06/12/17 10:00 06/12/17 11:00 Norvasc - PO 5 mg DAILY ROSIE Administration Atorvastatin Calcium 20 mg 06/11/17 22:00 06/11/17 21:42 Lipitor - PO 20 mg HS ROSIE Administration Carvedilol 12.5 mg 06/11/17 22:00 06/12/17 11:00 Coreg - PO 12.5 mg BID ROSIE Administration Citalopram Hydrobromide 20 mg 06/12/17 10:00 06/12/17 11:00 Celexa - PO 20 mg DAILY ROSIE Administration Docusate Sodium 100 mg 06/11/17 22:00 06/12/17 15:00 Colace - PO 100 mg TID ROSIE Administration Gabapentin 100 mg 06/12/17 10:00 06/12/17 11:00 Neurontin - PO 100 mg DAILY ROSIE Administration Heparin Sodium (Porcine) 5,000 unit 06/11/17 22:00 06/12/17 15:00 Heparin - SQ 5,000 unit TID ROSIE Administration Insulin Aspart 1 vial 06/12/17 07:00 06/12/17 11:00 Novolog Vial Sliding Scale - SQ Not Given TIDAC [facility] Protocol Pantoprazole Sodium 40 mg 06/12/17 11:45 06/12/17 11:00 Protonix - PO 40 mg DAILY ROSIE Administration Polyethylene Glycol 17 gm 06/11/17 19:45 Miralax (For Daily Use) - PO DAILY PRN Senna 1 tab 06/11/17 22:00 06/12/17 11:00 Senna - PO 1 tab BID ROSIE Administration Tamsulosin HCl 0.4 mg 06/11/17 22:00 06/11/17 21:41 Flomax - PO 0.4 mg HS ROSIE Administration Impression 1. CKD 2. anemia 3. HTN 4. Chol 5. DM 6. BPH 7. CAD Plan - renal functions is improved today - renal ultrasound neg for hydro - will obtain outpt labs to review renal workup - hematology follow up - cont current meds - avoid nsaids - will follow Dr Donovan
--- NOTE | 2017-06-12 16:00 | PN ---
Teaching Attending Note Name of Resident: Manuela Chang ATTENDING PHYSICIAN STATEMENT I saw and evaluated the patient. I reviewed the resident's note and discussed the case with the resident. I agree with the resident's findings and plan as documented. SUBJECTIVE: no fever or chills , has no pain. SOB when he lies down OBJECTIVE: NAD, pleasant and cooperative HEENT: NC, AT. MMM, no JVD. CV: RRR, no MRG Lungs: CTAB Abd: soft, NT, NL BD , ND Ext: 1+ pitting edema. no tenia pedis. no ulcers on feet ASSESSMENT AND PLAN: 71 y/o pleasant gentleman with h/o hypertension, hyperlipidemia, osteomyletis, polyneuropathy,IDDM , CAD status post MA status post CABG status post stents, and status post right hip replacement surgery, who presented for w/u of his anemia and worsening renal failure 1- Worsening renal failure: Cr 3.7 in 01/20. likely progression of his CKD. No renal bx was done before Likely cause of renal disease is HTN and DM. SPEP neg 01/20 He is not on NSAIDs or ACEi /ARBS. renal US with no obstruction, but with post void residual - Check post void residula - No indication for urgent HD - protein to Cr ratio dose not indicate nephrotic range protein uria - ? urine sediment - cont to hold lasix , monitor off IVF pending renal Consult - vascular consult 2- Chronic normocytic anemia: Hb at base line. likely anemia of chronic disease and due to renal disease. SPEP neg 01/20, unlikely MM - iron studies pending - B12, folate NL - minimal GI bleed reported with Positive OB on rectal exam , is likely due to hemorrhoidal bleed . Colon cancer can't be r/o fro a scope tomorrow - Heme consult pending 3- Rectal bleed: likely lower GI bleed from internal hemorrhoids. rectal exam with OB + - GI consult appreciated . NPO after MN fro a scope - monitor HB 4- reported occasional Hemoptysis. former smoker. - cxray with no masses - out pt work up 5- DM : hypoglycemic this am , as NPO hold long acting insulin tonight. as NPO after mid night - SSI AC - can resume lower dose of levemir after procedure 6- HTN: will confirm meds. - cont coreg - add norvasc 7- h/o CAD: - cont BB - hold ASA and plavix for any procedure .( plavix taken 06/07) 8- DVT PX : heparin sq HLOC
--- NOTE | 2017-06-12 16:32 | CONSULT ---
Consult - Past Medical History Cardio/Vascular: Yes: CAD, HTN, Hyperlipdemia Gastrointestinal: Yes: GI Bleed Renal/: Yes: Renal Inusuff - Alcohol/Substance Use Hx Alcohol Use: No - Smoking History Smoking history: Former smoker Have you smoked in the past 12 months: No If you are a former smoker, when did you quit?: 30YRS Home Medications - Allergies Allergies/Adverse Reactions: Allergies Allergy/AdvReac Type Severity Reaction Status Date / Time acetaminophen [From Percocet] AdvReac Intermediate nausea Verified 06/11/17 12: 28 oxycodone HCl [From Percocet] AdvReac Intermediate nausea Verified 06/11/17 12: 28 ticagrelor [From BRILINTA] AdvReac Intermediate Verified 06/11/17 12:28 - Home Medications Home Medications: Ambulatory Orders Cholecalciferol (Vitamin D3) [Vitamin D3] 1,000 unit PO DAILY tablet 09/02/12 Clopidogrel Bisulfate [Clopidogrel] 75 mg PO DAILY #90 tablet 01/10/16 Tamsulosin HCl 0.4 mg PO 2 QPM 05/19/16 Furosemide 40 mg PO DAILY tablet 08/14/16 Aspirin [ASA -] 81 mg PO DAILY 06/11/17 Carvedilol 12.5 mg PO BID 06/11/17 Famotidine 20 mg PO ASDIR 06/11/17 Family Disease History - Family Disease History Family Disease History: CA: Mother, Sister Physical Exam Vital Signs: Vital Signs Temperature 97.5 F L 06/12/17 14:36 Pulse Rate 64 06/12/17 14:36 Respiratory Rate 18 06/12/17 14:36 Blood Pressure 149/72 06/12/17 14:36 O2 Sat by Pulse Oximetry (%) 97 06/12/17 09:00 Labs: CBC, BMP 06/12/17 06:00 06/12/17 06:00 Assessment/Plan Vascular Surgery This is a 71 YOM with h/o chronic worsening anemia, worsening renal function now CKD stage 4, IDDM, CAD with NV, HTN, and HLD who presents with generalized weakness, dizziness, exacerbated chronic dyspnea on exertion, fatigue, and mild intermittent LLQ pain. He was sent by Dr. Leslie with plan for admission for inpatient workup of his worsening anemia and worsening renal function. Reportedly the patient had a colonoscopy scheduled for Sunday which had to be cancelled because his providers did not believe he was stable to do this procedure as an outpatient. The patient's family reports that he has occasional blood in the stool but this is rare to their knowledge. He had an occult blood test positive recently. Past History - Past Medical History Allergies/Adverse Reactions: Allergies Allergy/AdvReac Type Severity Reaction Status Date / Time acetaminophen [From Percocet] AdvReac Intermediate nausea Verified 06/11/17 12: 28 oxycodone HCl [From Percocet] AdvReac Intermediate nausea Verified 06/11/17 12: 28 ticagrelor [From BRILINTA] AdvReac Intermediate Verified 06/11/17 12:28 Home Medications: Ambulatory Orders Cholecalciferol (Vitamin D3) [Vitamin D3] 1,000 unit PO DAILY tablet 09/02/12 Clopidogrel Bisulfate [Clopidogrel] 75 mg PO DAILY #90 tablet 01/10/16 Tamsulosin HCl 0.4 mg PO 2 QPM 05/19/16 Furosemide 40 mg PO DAILY tablet 08/14/16 Aspirin [ASA -] 81 mg PO DAILY 06/11/17 Carvedilol 12.5 mg PO BID 06/11/17 Famotidine 20 mg PO ASDIR 06/11/17 PE Head - NC/AT Lung - cTA heart - RRR abd - soft,nt,nd ext -- warm, pink. Pt is right handed. A/P CRF 1. Vein mapping for avf placement 2. Please save left arm. Praful lorenzo DO
--- NOTE | 2017-06-12 16:46 | PN ---
Physical Exam: SUBJECTIVE: Patient seen and examined. Pt denies fever, chills, chest pain. Pt reports feeling fine. No events overnight. OBJECTIVE: Vital Signs Period Temp Pulse Resp BP Sys/Rodriguez Pulse Ox Last 24 Hr 97.5 F-98.2 F 58-66 16-18 149-191/66-80 96-97 GENERAL: The patient is awake, alert, and fully oriented, in no acute distress. HEAD: Normal with no signs of trauma. EYES: PERRL, extraocular movements intact, sclera anicteric, conjunctiva clear. No ptosis. ENT: Ears normal, nares patent, oropharynx clear without exudates, moist mucous membranes. NECK: (-) JVD. Trachea midline, full range of motion, supple. LUNGS: Breath sounds equal, clear to auscultation bilaterally, no wheezes, no crackles, no accessory muscle use. HEART: Regular rate and rhythm, S1, S2 without murmur, rub or gallop. ABDOMEN: Soft, nontender, nondistended, normoactive bowel sounds, no guarding, no rebound, no hepatosplenomegaly, no masses. EXTREMITIES: 2+ pulses, warm, well-perfused, no edema. NEUROLOGICAL: Cranial nerves II through XII grossly intact. Normal speech, gait not observed. PSYCH: Normal mood, normal affect. SKIN: Warm, dry, normal turgor, no rashes or lesions noted ENERAL: Awake, alert, and fully oriented, in no acute distress. HEAD: Normal with no signs of trauma. EYES: Pupils equal, round and reactive to light, extraocular movements intact, sclera anicteric. EARS, NOSE, THROAT: Ears normal, nares patent, oropharynx clear without exudates. Moist mucous membranes. NECK: Supple without lymphadenopathy, JVD, or masses. LUNGS: Breath sounds equal, clear to auscultation bilaterally. No wheezes, and no crackles. No accessory muscle use. HEART: Regular rate and rhythm, normal S1 and S2 without murmur, rub or gallop. ABDOMEN: Soft, nontender, not distended, normoactive bowel sounds, no guarding, no rebound, no masses. MUSCULOSKELETAL: No bony deformities or tenderness. Muscle strength 5/5 for hip flexion, plantar flexion, dorsiflextion, shoulder abduction, elbow flexion/ extension, hand squeeze. UPPER EXTREMITIES: Warm, well-perfused. No cyanosis. No clubbing. No peripheral edema. LOWER EXTREMITIES: 2+ pulses, warm, well-perfused. No calf tenderness. No peripheral edema. NEUROLOGICAL: Sensation intact throughout. Slight decrease in sensation to kylie feet, symmetric. PSYCHIATRIC: Cooperative. Good eye contact. Appropriate mood and affect. SKIN: Warm, dry, normal turgor, no rashes or lesions noted. Laboratory Results - last 24 hr 06/11/17 06/11/17 06/12/17 21:40 Unknown 06:00 WBC 4.2 RBC 3.52 L Hgb 10.1 L Hct 29.6 L MCV 84.2 MCH 28.8 MCHC 34.2 RDW 16.0 H Plt Count 176 MPV 6.8 L Neutrophils % 66.2 Lymphocytes % 17.0 D Monocytes % 12.5 H Eosinophils % 3.3 Basophils % 1.0 PT with INR INR Sodium Potassium Chloride Carbon Dioxide Anion Gap BUN Creatinine POC Glucometer 135 Random Glucose Calcium Phosphorus Magnesium Ferritin Vitamin B12 U Random Total Protein Urine Creatinine Protein/Creatinin Ratio Stool Occult Blood Negative 06/12/17 06/12/17 06/12/17 06:00 06:00 06:00 WBC RBC Hgb Hct MCV MCH MCHC RDW Plt Count MPV Neutrophils % Lymphocytes % Monocytes % Eosinophils % Basophils % PT with INR 14.20 H INR 1.26 H Sodium 143 Potassium 4.4 Chloride 106 Carbon Dioxide 28 D Anion Gap 9 BUN 90 H Creatinine 4.1 H POC Glucometer Random Glucose 74 D Calcium 8.3 L Phosphorus 4.9 Magnesium 2.5 H Ferritin 45.404 Vitamin B12 1249 H D U Random Total Protein Urine Creatinine Protein/Creatinin Ratio Stool Occult Blood 06/12/17 06/12/17 06:07 10:20 WBC RBC Hgb Hct MCV MCH MCHC RDW Plt Count MPV Neutrophils % Lymphocytes % Monocytes % Eosinophils % Basophils % PT with INR INR Sodium Potassium Chloride Carbon Dioxide Anion Gap BUN Creatinine POC Glucometer 88 Random Glucose Calcium Phosphorus Magnesium Ferritin Vitamin B12 U Random Total Protein 132 H Urine Creatinine 56.7 Protein/Creatinin Ratio 2.32 Stool Occult Blood Active Medications Generic Name Dose Route Start Last Admin Trade Name Freq PRN Reason Stop Dose Admin Amlodipine Besylate 5 mg 06/12/17 10:00 06/12/17 11:00 Norvasc - PO 5 mg DAILY ROSIE Administration Atorvastatin Calcium 20 mg 06/11/17 22:00 06/11/17 21:42 Lipitor - PO 20 mg HS ROSIE Administration Carvedilol 12.5 mg 06/11/17 22:00 06/12/17 11:00 Coreg - PO 12.5 mg BID ROSIE Administration Citalopram Hydrobromide 20 mg 06/12/17 10:00 06/12/17 11:00 Celexa - PO 20 mg DAILY ROSIE Administration Docusate Sodium 100 mg 06/11/17 22:00 06/12/17 15:00 Colace - PO 100 mg TID ROSIE Administration Gabapentin 100 mg 06/12/17 10:00 06/12/17 11:00 Neurontin - PO 100 mg DAILY ROSIE Administration Heparin Sodium (Porcine) 5,000 unit 06/11/17 22:00 06/12/17 15:00 Heparin - SQ 5,000 unit TID ROSIE Administration Insulin Aspart 1 vial 06/12/17 07:00 06/12/17 11:00 Novolog Vial Sliding Scale - SQ Not Given TIDAC [facility] Protocol Pantoprazole Sodium 40 mg 06/12/17 11:45 06/12/17 11:00 Protonix - PO 40 mg DAILY ROSIE Administration Polyethylene Glycol 17 gm 06/11/17 19:45 Miralax (For Daily Use) - PO DAILY PRN Senna 1 tab 06/11/17 22:00 06/12/17 11:00 Senna - PO 1 tab BID ROSIE Administration Tamsulosin HCl 0.4 mg 06/11/17 22:00 06/11/17 21:41 Flomax - PO 0.4 mg HS ROSIE Administration IMAGIN06/11/17 CXR -> no acute pathology 06/11/17 Bladder US -> moderate postvoid residual ASSESSMENT/PLAN: 71yo M with PMH of chronic anemia, worsening CKD stage IV, IDDM, CAD with ID, htn, hld, presents for work-up of his worsening kidney function and chronic anemia. 1) worsening renal failure - Renal (Dr. Donovan) recs appreciated: - avoid NSAIDs - continue to hold diuretics - Urine Protein:Cr ratio wnl 2) chronic normocytic anemia - likely 2/2 anemia of chronic disease and renal failure causing lack of epogen and bone marrow suppression. Although Ddx includes MM. - hgb at baseline - Heme-Oncology Consult - for bone marrow biopsy - f/u iron studies, vit B12, folate - GI (Dr. Taylor) recs appreciated: - schedule EGD for tomorrow to assess for upper GI inflammatory states, angiectasia, diverticulosis, colitis, neoplasm - schedule colonoscopy for tomorrow 3) bright red blood per rectum - likely lower GI bleed, possibly 2/2 internal hemorrhoidal bleeding due to strain with chronic constipation - GI ppx 4) constipation - add Colace, Senna, and Miralax - monitor for rectal bleeding 5) IDDM - Levemir 20U SQ HS - Novolog SSI - BGMs - continue home med of Neurontin for neuropathy - hold Glimepiride 6) htn - continue home med of Carvedilol - hold any ACEi/ARBs 7) hld - continue home med of Lipitor 8) CAD - continue home med of Carvedilol - hold Plavix and ASA 9) FEN - Fluids: po - Electrolytes: hypermagnesemia and hyperphosphatemia noted, continue to monitor - Nutrition: clear liquid diet 10) Prophylaxis - DVT ppx with Heparin 5,000U SQ TID - GI ppx with Protonix 20mg daily - deconditioning ppx with PT Consult Visit type - Emergency Visit Emergency Visit: Yes ED Registration Date: 06/11/17 Care time: The patient presented to the Emergency Department on the above date and was hospitalized for further evaluation of their emergent condition. - New Patient This patient is new to me today: No - Critical Care Critical Care patient: No
[2017-06-12] MEDS ORDERED: PEG3350/SOD SULF,BICARB,CL/KCL 4,000 ML SOLN.RECON PO ONE (18:00)
--- NOTE | 2017-06-12 20:11 | PN ---
Progress Note (short form) - Note Progress Note: Patient seen, examined, and consult dictated. Seen in office with progressive renal insufficiency, progressive anemia, mild increase in free kappa/ free lambda light chain ratio. Will check urine light chain ratio in office. Has had some hematest positive stool. Is scheduled for fistulae, GI assessment, probable bone marrow and possible renal biopsy. Likely chronic disease with some component of blood loss. To follow.
[2017-06-12] MEDS: TAMSULOSIN HCL 0.4 MG CAP.ER.24H (FP) PO SCH (21:14)
[2017-06-12] MEDS: ATORVASTATIN CA 20 MG TABLET (FP) PO SCH (21:14)
[2017-06-12] MEDS ORDERED: PT OWN MED DRAWER 7, Y5N ONE (21:30)
--- NOTE | 2017-06-13 00:10 | CONS ---
DATE OF CONSULTATION: 06/12/2017 This 71-year-old presents with progressive anemia and renal insufficiency. Patient has been seen as an outpatient. He has a history of progressive anemia. He has had Hematest positive stools. Has had progressive renal insufficiency and now has stage 4 disease with decreased GFR. He has a history of ASHD, coronary artery disease. There is a history of type 2 diabetes with diabetic retinopathy. He has a history of hypertension, hypercholesterolemia, [place]. There is a history of peripheral vascular disease. PAST SURGICAL HISTORY: Includes fusion of the lumbar spine. There is a history of a bypass graft to the right lower extremity. There is a history of coronary angioplasty with stenting. He has had 5 stents. There is a history of coronary artery bypass graft. He has a history of hip surgery, vascular stents, and hernia repair. FAMILY HISTORY: Includes a mother with stomach cancer, father with stroke, sister with stomach cancer, another sister with liver cancer. SOCIAL HISTORY: Patient is former smoker 3 packs per day for 13 years. He started in 1963, discontinued in 1983. ALLERGIES: Include some vomiting, not true allergy, with PERCOCET. REVIEW OF SYSTEMS: Tired and fatigued. The patient had decreased vision. Patient has shortness of breath with dyspnea on exertion. Patient has had intermittent chest pressure. The patient has had abdominal pain as well as Hematest positive stools. Endocrine negative. Patient has had back pain. Patient's skin negative. Allergies negative. Neurologic negative . PHYSICAL EXAMINATION: Vital signs: Blood pressure 146/65, pulse 60, respirations 18, afebrile. HEENT: [place], EOM intact. Oropharynx unremarkable. No pharyngitis, mucositis. Eyes, no ptosis. Clear conjunctivae. Anicteric sclerae. Neck: Supple. No masses. Trachea midline. No thyromegaly. No cervical supraclavicular, axillary adenopathy . Cardiac: RSR. Systolic murmur . Chest: Clear to percussion and auscultation with no rales or rhonchi. Abdomen: Soft. No masses. Genitourinary: Normal external genitalia. Musculoskeletal: Full range of motion. Skin: Intact without rashes. Extremities: Lower extremity scars. Psychiatric: Alert and cooperative. LABORATORY: Sodium 143, potassium 4.4, chloride 106, CO2 of 28, BUN 90, creatinine 4.5, and now 4.1, glucose 74, calcium 8.3, phosphorus 4.9, magnesium 2.5, AST 16, ALT 23, alkaline phosphatase 108, B12 of 1249, hematocrit 29, WBC 4.2, platelets 176,000, with 66 polycytes, 17 lymphocytes, 12 monocytes. INR 1.26. Chest x-ray, no acute infiltration. MEDICINE: Flomax 0.4, heparin, Neurontin 100, Celexa 20, Coreg 12.5 b.i.d., Colace 100 t.i.d., Miralax, senna, Norvasc 5 a day, Lipitor 20 a day, insulin sliding scale, Protonix 40 a day. Additional laboratory on the outside, patient had been on Plavix IGA 287 which is normal, IGG 1590 which is normal, IGM 57 which is normal. Serum 142, serum free lambda 75, free kappa to lambda ratio 1.88, upper limit of normal 1.65. Uric acid 9.0. IMPRESSION: This 71-year-old male has multiple medical problems. He presents with progressive anemia, Hematest positive stools. He presents with a progressive renal insufficiency. His kappa to lambda ratio is mildly elevated. It is unclear if his anemia is related to his progressive renal failure. Gastrointestinal assessment is to be performed. Progressive renal insufficiency if noted then patient will require fistula. A bone marrow aspiration and possible renal biopsy as well is being entertained. KALLIE LUNDY M.D. LYNN/[id number]
[2017-06-13 07:59] LABS: INR 1.23 (0.82-1.09); PROTHROMBIN TIME (PATIENT) 13.9 SEC (9.98-11.88)
[2017-06-13 08:14] LABS: MCH 28.7 pg (25.7-33.7); MCHC 33.7 g/dl (32.0-35.9); MEAN CELL VOLUME 85.1 fl (80-96); MEAN PLT VOLUME 6.8 fl (7.5-11.1); PLATELET COUNT 171 K/MM3 (134-434); RDW 15.6 % (11.9-15.9)
--- NOTE | 2017-06-13 08:41 | PN ---
Teaching Attending Note Name of Resident: Manuela Chang ATTENDING PHYSICIAN STATEMENT I saw and evaluated the patient. I reviewed the resident's note and discussed the case with the resident. I agree with the resident's findings and plan as documented. SUBJECTIVE: Patient is feeling better with no acute distress. Patient is going for EGD and colonoscopy today. OBJECTIVE: Vital Signs Temperature 97.8 F 06/13/17 01:25 Pulse Rate 54 L 06/13/17 01:25 Respiratory Rate 18 06/13/17 01:25 Blood Pressure 148/69 06/13/17 01:25 O2 Sat by Pulse Oximetry (%) 98 06/12/17 21:00 CBCD WBC 5.0 K/mm3 (4.0-10.0) 06/13/17 07:00 RBC 3.55 M/mm3 (4.00-5.60) L 06/13/17 07:00 Hgb 10.2 GM/dL (11.7-16.9) L 06/13/17 07:00 Hct 30.2 % (35.4-49) L 06/13/17 07:00 MCV 85.1 fl (80-96) 06/13/17 07:00 MCHC 33.7 g/dl (32.0-35.9) 06/13/17 07:00 RDW 15.6 % (11.9-15.9) 06/13/17 07:00 Plt Count 171 K/MM3 (134-434) 06/13/17 07:00 MPV 6.8 fl (7.5-11.1) L 06/13/17 07:00 CMP Sodium 143 mmol/L (136-145) 06/12/17 06:00 Potassium 4.4 mmol/L (3.5-5.1) 06/12/17 06:00 Chloride 106 mmol/L (98-107) 06/12/17 06:00 Carbon Dioxide 28 mmol/L (21-32) D 06/12/17 06:00 Anion Gap 9 (8-16) 06/12/17 06:00 BUN 90 mg/dL (7-18) H 06/12/17 06:00 Creatinine 4.1 mg/dL (0.7-1.3) H 06/12/17 06:00 Creat Clearance w eGFR 12.98 (>60) 06/11/17 14:50 Random Glucose 74 mg/dL (74-106) D 06/12/17 06:00 Calcium 8.3 mg/dL (8.5-10.1) L 06/12/17 06:00 Total Bilirubin 0.4 mg/dL (0.2-1.0) 06/11/17 14:50 AST 16 U/L (15-37) 06/11/17 14:50 ALT 23 U/L (12-78) 06/11/17 14:50 Alkaline Phosphatase 108 U/L (45-117) 06/11/17 14:50 Total Protein 7.2 g/dl (6.4-8.2) 06/11/17 14:50 Albumin 3.4 g/dl (3.4-5.0) 06/11/17 14:50 Current Medications Generic Name Dose Route Start Last Admin Trade Name Freq PRN Reason Stop Dose Admin Amlodipine Besylate 5 mg 06/12/17 10:00 06/12/17 11:00 Norvasc - PO 5 mg DAILY ROSIE Administration Atorvastatin Calcium 20 mg 06/11/17 22:00 06/12/17 21:14 Lipitor - PO 20 mg HS ROSIE Administration Carvedilol 12.5 mg 06/11/17 22:00 06/12/17 21:14 Coreg - PO 12.5 mg BID ROSIE Administration Citalopram Hydrobromide 20 mg 06/12/17 10:00 06/12/17 11:00 Celexa - PO 20 mg DAILY ROSIE Administration Docusate Sodium 100 mg 06/11/17 22:00 06/12/17 21:14 Colace - PO 100 mg TID ROSIE Administration Gabapentin 100 mg 06/12/17 10:00 06/12/17 11:00 Neurontin - PO 100 mg DAILY ROSIE Administration Heparin Sodium (Porcine) 5,000 unit 06/11/17 22:00 06/12/17 21:14 Heparin - SQ 5,000 unit TID ROSIE Administration Insulin Aspart 1 vial 06/12/17 07:00 06/12/17 17:14 Novolog Vial Sliding Scale - SQ 8 units TIDAC ROSIE Administration Protocol Pantoprazole Sodium 40 mg 06/12/17 11:45 06/12/17 11:00 Protonix - PO 40 mg DAILY ROSIE Administration Polyethylene Glycol 17 gm 06/11/17 19:45 Miralax (For Daily Use) - PO DAILY PRN Senna 1 tab 06/11/17 22:00 06/12/17 21:14 Senna - PO 1 tab BID ROSIE Administration Tamsulosin HCl 0.4 mg 06/11/17 22:00 06/12/17 21:14 Flomax - PO 0.4 mg HS ROSIE Administration Home Medications Medication Instructions Recorded Cholecalciferol (Vitamin D3) 1,000 unit PO DAILY tablet 09/02/12 [Vitamin D3] Clopidogrel Bisulfate [Clopidogrel] 75 mg PO DAILY #90 tablet 01/10/16 Tamsulosin HCl 0.4 mg PO 2 QPM 05/19/16 Furosemide 40 mg PO DAILY tablet 08/14/16 Aspirin [ASA -] 81 mg PO DAILY 06/11/17 Carvedilol 12.5 mg PO BID 06/11/17 Famotidine 20 mg PO ASDIR 06/11/17 PE: per resident's note ASSESSMENT AND PLAN: 71 y/o pleasant gentleman with h/o hypertension, hyperlipidemia, osteomyletis, polyneuropathy,IDDM , CAD status post UT status post CABG status post stents, and status post right hip replacement surgery, who presented for w/u of his anemia and worsening renal failure # Acute over chronic Renal Failure , patient has a transplant Kidney on Immunosuppressive therapy continue. # Chronic normocytic anemia: likely anemia of chronic disease and due to renal disease. SPEP neg 01/20, unlikely MM , iron studies pending , B12, folate NL, with minimal GI bleed reported with Positive OB on rectal exam , is likely due to hemorrhoidal bleed . Colon cancer can't be r/o . Patient is going for EGD and colonoscopy today. # Rectal bleed: likely lower GI bleed from internal hemorrhoids. rectal exam with OB + , going for EGD and colonoscopy by dr. Taylor today # DM : SS with coverage # HTN: on coreg and norvasc continue # h/o CAD: cont BB , hold ASA and plavix for any procedure. DVT PX : Hold heparin today
[2017-06-13 08:46] LABS: ANION GAP 14 (8-16); CALCIUM 7.7 mg/dL (8.5-10.1); CO2 25 mmol/L (21-32); CREATININE 3.8 mg/dL (0.7-1.3); GLUCOSE,RANDOM 179 mg/dL (74-106); URIC ACID 8.9 mg/dL (2.6-7.2)
[2017-06-13 08:47] LABS: LDH 266 U/L (87-241)
[2017-06-13] MEDS: PANTOPRAZOLE 40 MG TABLET (FP) PO SCH (10:35)
[2017-06-13] MEDS: CITALOPRAM HYDROBROMIDE 20 MG TABLET (FP) PO SCH (10:35)
[2017-06-13] MEDS: SENNOSIDES 8.6MG TABLET (FP) PO SCH ×2 (10:35→21:26)
[2017-06-13] MEDS: CARVEDILOL 12.5 MG TABLET (FP) PO SCH ×2 (10:35→21:25)
[2017-06-13] MEDS: amLODIPine BESYLATE 5 MG TABLET (FP) PO SCH (10:35)
[2017-06-13] MEDS: GABAPENTIN 100 MG CAPSULE (FP) PO SCH (10:35)
[2017-06-13] MEDS: INSULIN SLIDING SCALE (NOVOLOG) 1 VIAL SQ SCH ×2 (11:28→16:33)
[2017-06-13] MEDS ORDERED: PHENYLEPHRINE HCL 10 MG/1 ML SINGLE DOSE VIAL ONE (11:50)
[2017-06-13] MEDS ORDERED: TETRACAINE/BENZOCAINE/BUTAMBEN 20 GM SPR TP ONE (11:50)
[2017-06-13] MEDS ORDERED: hydrALAZINE HCL 20 MG/ML VIAL ONE (12:07)
--- NOTE | 2017-06-13 12:28 | PN ---
Progress Note, Physician History of Present Illness: Pt seen and examined at bedside. He is awake and alert. He denies shortness of breath or lower ext edema. - Current Medication List Current Medications: Active Medications Amlodipine Besylate (Norvasc -) 5 mg PO DAILY [facility] Last Admin: 06/13/17 10:35 Dose: 5 mg Atorvastatin Calcium (Lipitor -) 20 mg PO HS [facility] Last Admin: 06/12/17 21:14 Dose: 20 mg Carvedilol (Coreg -) 12.5 mg PO BID [facility] Last Admin: 06/13/17 10:35 Dose: 12.5 mg Citalopram Hydrobromide (Celexa -) 20 mg PO DAILY [facility] Last Admin: 06/13/17 10:35 Dose: 20 mg Docusate Sodium (Colace -) 100 mg PO TID [facility] Last Admin: 06/12/17 21:14 Dose: 100 mg Gabapentin (Neurontin -) 100 mg PO DAILY [facility] Last Admin: 06/13/17 10:35 Dose: 100 mg Heparin Sodium (Porcine) (Heparin -) 5,000 unit SQ TID [facility] Last Admin: 06/12/17 21:14 Dose: 5,000 unit Insulin Aspart (Novolog Vial Sliding Scale -) 1 vial SQ TIDAC [facility] PRN Reason: Protocol Last Admin: 06/13/17 11:28 Dose: Not Given Pantoprazole Sodium (Protonix -) 40 mg PO DAILY [facility] Last Admin: 06/13/17 10:35 Dose: 40 mg Polyethylene Glycol (Miralax (For Daily Use) -) 17 gm PO DAILY PRN Senna (Senna -) 1 tab PO BID [facility] Last Admin: 06/13/17 10:35 Dose: 1 tab Tamsulosin HCl (Flomax -) 0.4 mg PO [facility] Last Admin: 06/12/17 21:14 Dose: 0.4 mg - Objective Vital Signs: Vital Signs Temperature 97.8 F 06/13/17 01:25 Pulse Rate 54 L 06/13/17 01:25 Respiratory Rate 18 06/13/17 01:25 Blood Pressure 148/69 06/13/17 01:25 O2 Sat by Pulse Oximetry (%) 98 06/12/17 21:00 Constitutional: Yes: Calm Eyes: Yes: Conjunctiva Clear HENT: Yes: Atraumatic Cardiovascular: Yes: S1, S2 Respiratory: Yes: CTA Bilaterally Gastrointestinal: Yes: Soft Genitourinary: Yes: WNL Musculoskeletal: Yes: WNL Edema: No Integumentary: Yes: WNL Neurological: Yes: Oriented Psychiatric: Yes: Oriented Labs: CBC, BMP 06/13/17 07:00 06/13/17 08:00 INR, PTT INR 1.23 (0.82-1.09) H 06/13/17 07:00 Problem List - Problems (1) Chronic anemia Code(s): D64.9 - ANEMIA, UNSPECIFIED (2) Chronic kidney disease Code(s): N18.9 - CHRONIC KIDNEY DISEASE, UNSPECIFIED Qualifiers: Chronic kidney disease stage: stage 4 (severe) Qualified Code(s): N18.4 - Chronic kidney disease, stage 4 (severe) (3) CAD (coronary artery disease) Code(s): I25.10 - ATHSCL HEART DISEASE OF [place] CORONARY ARTERY W/O ANG PCTRS (4) Hyperlipidemia Code(s): E78.5 - HYPERLIPIDEMIA, UNSPECIFIED Assessment/Plan Current Medications Generic Name Dose Route Start Last Admin Trade Name Freq PRN Reason Stop Dose Admin Amlodipine Besylate 5 mg 06/12/17 10:00 06/13/17 10:35 Norvasc - PO 5 mg DAILY ROSIE Administration Atorvastatin Calcium 20 mg 06/11/17 22:00 06/12/17 21:14 Lipitor - PO 20 mg HS ROSIE Administration Carvedilol 12.5 mg 06/11/17 22:00 06/13/17 10:35 Coreg - PO 12.5 mg BID ROSIE Administration Citalopram Hydrobromide 20 mg 06/12/17 10:00 06/13/17 10:35 Celexa - PO 20 mg DAILY ROSIE Administration Docusate Sodium 100 mg 06/11/17 22:00 06/12/17 21:14 Colace - PO 100 mg TID ROSIE Administration Gabapentin 100 mg 06/12/17 10:00 06/13/17 10:35 Neurontin - PO 100 mg DAILY ROSIE Administration Heparin Sodium (Porcine) 5,000 unit 06/11/17 22:00 06/12/17 21:14 Heparin - SQ 5,000 unit TID ROSIE Administration Insulin Aspart 1 vial 06/12/17 07:00 06/13/17 11:28 Novolog Vial Sliding Scale - SQ Not Given TIDAC [facility] Protocol Pantoprazole Sodium 40 mg 06/12/17 11:45 06/13/17 10:35 Protonix - PO 40 mg DAILY ROSIE Administration Polyethylene Glycol 17 gm 06/11/17 19:45 Miralax (For Daily Use) - PO DAILY PRN Senna 1 tab 06/11/17 22:00 06/13/17 10:35 Senna - PO 1 tab BID ROSIE Administration Tamsulosin HCl 0.4 mg 06/11/17 22:00 06/12/17 21:14 Flomax - PO 0.4 mg HS ROSIE Administration Impression 1. CKD 2. anemia 3. HTN 4. Chol 5. DM 6. BPH 7. CAD Plan - renal function continues to improve - lasix is still on hold, pt appears euvolemic - repeat labs in am - discussed with heme, likely bone marrow on Sunday - pt getting endoscopy today - cont current meds - avoid nsaids - will follow Dr Donovan
--- NOTE | 2017-06-13 12:50 | PROC ---
Endoscopy Procedure Endoscopy procedure completed. Please see scanned procedure report. Normal EGD 0.8 cm ascending colon polyp, removed. Internal hemorrhoids - likey source of hematochezia - otherwise normal colonoscopy.
[2017-06-13] MEDS: DOCUSATE SODIUM 100 MG CAPSULE (FP) PO SCH ×2 (15:54→21:26)
[2017-06-13] MEDS: HEPARIN NA (PORCINE) 5,000 UNITS/ML 1ML VIAL SQ SCH ×2 (15:54→21:27)
--- NOTE | 2017-06-13 18:25 | PN ---
Physical Exam: SUBJECTIVE: Patient seen and examined. Pt denies fever, chills, chest pain, abdominal pain. No events overnight. OBJECTIVE: Vital Signs Period Temp Pulse Resp BP Sys/Rodriguez Pulse Ox Last 24 Hr 97.3 F-98.3 F 54-62 12-18 148-191/64-89 98-100 GENERAL: The patient is awake, alert, and fully oriented, in no acute distress. LUNGS: Breath sounds equal, clear to auscultation bilaterally, no wheezes, no crackles, no accessory muscle use. HEART: Regular rate and rhythm, S1, S2 without murmur, rub or gallop. EXTREMITIES: Warm, well-perfused, no edema. PSYCH: Normal mood, normal affect. SKIN: Warm, dry, normal turgor, no rashes or lesions noted Laboratory Results - last 24 hr 06/12/17 06/12/17 06/12/17 06:00 12:05 17:10 WBC RBC Hgb Hct MCV MCH MCHC RDW Plt Count MPV PT with INR INR Sodium Potassium Chloride Carbon Dioxide Anion Gap BUN Creatinine POC Glucometer 77 305 Random Glucose Uric Acid Calcium Iron 31 L TIBC 314 Iron Saturation 10 L Transferrin 241 LD Total 06/13/17 06/13/17 06/13/17 06:20 07:00 07:00 WBC 5.0 RBC 3.55 L Hgb 10.2 L Hct 30.2 L MCV 85.1 MCH 28.7 MCHC 33.7 RDW 15.6 Plt Count 171 MPV 6.8 L PT with INR 13.90 H INR 1.23 H Sodium Potassium Chloride Carbon Dioxide Anion Gap BUN Creatinine POC Glucometer 186 Random Glucose Uric Acid Calcium Iron TIBC Iron Saturation Transferrin LD Total 06/13/17 06/13/17 06/13/17 08:00 11:27 16:32 WBC RBC Hgb Hct MCV MCH MCHC RDW Plt Count MPV PT with INR INR Sodium 142 Potassium 3.9 Chloride 103 Carbon Dioxide 25 Anion Gap 14 BUN 73 H Creatinine 3.8 H POC Glucometer 181 128 Random Glucose 179 H D Uric Acid 8.9 H Calcium 7.7 L Iron TIBC Iron Saturation Transferrin LD Total 266 H Active Medications Generic Name Dose Route Start Last Admin Trade Name Freq PRN Reason Stop Dose Admin Amlodipine Besylate 5 mg 06/12/17 10:00 06/13/17 10:35 Norvasc - PO 5 mg DAILY ROSIE Administration Atorvastatin Calcium 20 mg 06/11/17 22:00 06/12/17 21:14 Lipitor - PO 20 mg HS ROSIE Administration Carvedilol 12.5 mg 06/11/17 22:00 06/13/17 10:35 Coreg - PO 12.5 mg BID ROSIE Administration Citalopram Hydrobromide 20 mg 06/12/17 10:00 06/13/17 10:35 Celexa - PO 20 mg DAILY ROSIE Administration Docusate Sodium 100 mg 06/11/17 22:00 06/13/17 15:54 Colace - PO Not Given TID ROSIE Gabapentin 100 mg 06/12/17 10:00 06/13/17 10:35 Neurontin - PO 100 mg DAILY ROSIE Administration Heparin Sodium (Porcine) 5,000 unit 06/11/17 22:00 06/13/17 15:54 Heparin - SQ Not Given TID [facility] Insulin Aspart 1 vial 06/12/17 07:00 06/13/17 16:33 Novolog Vial Sliding Scale - SQ Not Given TIDAC [facility] Protocol Pantoprazole Sodium 40 mg 06/12/17 11:45 06/13/17 10:35 Protonix - PO 40 mg DAILY ROSIE Administration Polyethylene Glycol 17 gm 06/11/17 19:45 Miralax (For Daily Use) - PO DAILY PRN Senna 1 tab 06/11/17 22:00 06/13/17 10:35 Senna - PO 1 tab BID ROSIE Administration Tamsulosin HCl 0.4 mg 06/11/17 22:00 06/12/17 21:14 Flomax - PO 0.4 mg HS ROSIE Administration IMAGIN06/13/17 Duplex UE -> patent Left UE vasculature ASSESSMENT/PLAN: 71yo M with PMH of chronic anemia, worsening CKD stage IV, IDDM, CAD with UT, htn, hld, presents for work-up of his worsening kidney function and chronic anemia. 1) worsening renal failure - likely progressive CKD 2/2 DM and htn - pt is not on any NSAIDs or ACEi/ARBS - protein to Cr ratio dose not indicate nephrotic range protein uria - renal function continues to improve - lasix is still on hold, pt appears euvolemic - Vascular Surgery Consult -> Duplex UE -> Left UE vasculature patent for a fistula when needed - Renal following 2) chronic normocytic anemia - likely 2/2 anemia of chronic disease and renal failure causing lack of epogen and bone marrow suppression. Although Ddx includes MM. - hgb at baseline - Heme-Oncology Consult - for bone marrow biopsy, possibly Sunday - EGD normal per GI (Dr. Taylor) 3) bright red blood per rectum - likely lower GI bleed, possibly 2/2 internal hemorrhoidal bleeding due to strain with chronic constipation - Colonoscopy today revealed internal hemorrhoids - likely source of hematochezia - otherwise normal colonoscopy. - GI ppx 4) constipation - add Colace, Senna, and Miralax - monitor for rectal bleeding 5) IDDM - Novolog SSI - BGMs - continue home med of Neurontin for neuropathy - hold Glimepiride 6) htn - continue home med of Carvedilol - Norvasc added - hold any ACEi/ARBs 7) hld - continue home med of Lipitor 8) CAD - continue home med of Carvedilol - hold Plavix and ASA 9) FEN - Fluids: po - Electrolytes: continue to monitor - Nutrition: renal diet 10) Prophylaxis - DVT ppx with Heparin 5,000U SQ TID - GI ppx with Protonix 20mg daily - deconditioning ppx with PT Consult Visit type - Emergency Visit Emergency Visit: Yes ED Registration Date: 06/11/17 Care time: The patient presented to the Emergency Department on the above date and was hospitalized for further evaluation of their emergent condition. - New Patient This patient is new to me today: No - Critical Care Critical Care patient: No
[2017-06-13] MEDS ORDERED: INSULIN (NOVOLOG) ASPART 100 UNITS/ML 10ML VIAL ONE (20:52)
[2017-06-13] MEDS: TAMSULOSIN HCL 0.4 MG CAP.ER.24H (FP) PO SCH (21:26)
[2017-06-13] MEDS: ATORVASTATIN CA 20 MG TABLET (FP) PO SCH (21:26)
[2017-06-14 07:10] LABS: BASOPHIL 0.9 % (0-2.0); EOSINOPHIL 1.9 % (0-4.5); MCH 28.9 pg (25.7-33.7); MCHC 33.4 g/dl (32.0-35.9); MEAN CELL VOLUME 86.7 fl (80-96); MEAN PLT VOLUME 6.8 fl (7.5-11.1); NEUTROPHILS 74.7 % (42.8-82.8); PLATELET COUNT 150 K/MM3 (134-434); RDW 15.5 % (11.9-15.9); WHITE BLOOD COUNT 5.5 K/mm3 (4.0-10.0)
[2017-06-14] MEDS: INSULIN SLIDING SCALE (NOVOLOG) 1 VIAL SQ SCH ×3 (07:20→16:49)
[2017-06-14] MEDS: DOCUSATE SODIUM 100 MG CAPSULE (FP) PO SCH ×3 (07:20→21:40)
[2017-06-14] MEDS: HEPARIN NA (PORCINE) 5,000 UNITS/ML 1ML VIAL SQ SCH ×3 (07:20→21:40)
[2017-06-14 08:09] LABS: HEMATOCRIT 30.8 % (37.5-51.0)
[2017-06-14 08:36] LABS: ANION GAP 5 (8-16); CALCIUM 7.8 mg/dL (8.5-10.1); CO2 30 mmol/L (21-32); CREATININE 3.6 mg/dL (0.7-1.3); GLUCOSE,RANDOM 220 mg/dL (74-106)
--- NOTE | 2017-06-14 10:02 | PN ---
Physical Exam: SUBJECTIVE: Patient seen and examined. No fever, chills. Pt resting comfortably. No events overnight. OBJECTIVE: Vital Signs Period Temp Pulse Resp BP Sys/Rodriguez Pulse Ox Last 24 Hr 97 F-98.9 F 54-72 12-20 130-187/62-89 99-100 GENERAL: The patient is awake, alert, and fully oriented, in no acute distress. LUNGS: Breath sounds equal, clear to auscultation bilaterally, no wheezes, no crackles, no accessory muscle use. HEART: Regular rate and rhythm, S1, S2 without murmur, rub or gallop. EXTREMITIES: Warm, well-perfused, no edema. PSYCH: Normal mood, normal affect. SKIN: Warm, dry, normal turgor, no rashes or lesions noted Laboratory Results - last 24 hr 06/14/17 06/14/17 06/14/17 06:00 06:00 07:19 WBC 5.5 RBC 3.39 L Hgb 9.8 L Hct 29.4 L MCV 86.7 MCH 28.9 MCHC 33.4 RDW 15.5 Plt Count 150 MPV 6.8 L Neutrophils % 74.7 Lymphocytes % 11.7 D Monocytes % 10.8 H Eosinophils % 1.9 Basophils % 0.9 Sodium 142 Potassium 4.6 Chloride 107 Carbon Dioxide 30 Anion Gap 5 L BUN 61 H Creatinine 3.6 H POC Glucometer 211 Random Glucose 220 H D Calcium 7.8 L Transferrin Folate Folate Hemolysate Active Medications Generic Name Dose Route Start Last Admin Trade Name Freq PRN Reason Stop Dose Admin Amlodipine Besylate 5 mg 06/12/17 10:00 06/13/17 10:35 Norvasc - PO 5 mg DAILY ROSIE Administration Atorvastatin Calcium 20 mg 06/11/17 22:00 06/13/17 21:26 Lipitor - PO 20 mg HS ROSIE Administration Carvedilol 12.5 mg 06/11/17 22:00 06/13/17 21:25 Coreg - PO 12.5 mg BID ROSIE Administration Citalopram Hydrobromide 20 mg 06/12/17 10:00 06/13/17 10:35 Celexa - PO 20 mg DAILY ROSIE Administration Docusate Sodium 100 mg 06/11/17 22:00 06/14/17 07:20 Colace - PO 100 mg TID ROSIE Administration Gabapentin 100 mg 06/12/17 10:00 06/13/17 10:35 Neurontin - PO 100 mg DAILY ROSIE Administration Heparin Sodium (Porcine) 5,000 unit 06/11/17 22:00 06/14/17 07:20 Heparin - SQ 5,000 unit TID ROSIE Administration Insulin Aspart 1 vial 06/12/17 07:00 06/14/17 07:20 Novolog Vial Sliding Scale - SQ 4 units TIDAC ROSIE Administration Protocol Pantoprazole Sodium 40 mg 06/12/17 11:45 06/13/17 10:35 Protonix - PO 40 mg DAILY ROSIE Administration Polyethylene Glycol 17 gm 06/11/17 19:45 Miralax (For Daily Use) - PO DAILY PRN Senna 1 tab 06/11/17 22:00 06/13/17 21:26 Senna - PO 1 tab BID ROSIE Administration Tamsulosin HCl 0.4 mg 06/11/17 22:00 06/13/17 21:26 Flomax - PO 0.4 mg HS ROSIE Administration ASSESSMENT/PLAN: 71yo M with PMH of chronic anemia, worsening CKD stage IV, IDDM, CAD with AR, htn, hld, presents for work-up of his worsening kidney function and chronic anemia. 1) worsening renal failure - likely progressive CKD 2/2 DM and htn - pt is not on any NSAIDs or ACEi/ARBS - renal function continues to improve - lasix is still on hold, pt appears euvolemic - Renal following 2) chronic normocytic anemia - likely 2/2 anemia of chronic disease and renal failure causing lack of epogen and bone marrow suppression. Although Ddx includes MM. - hgb stable at baseline - Heme-Oncology Consult - for bone marrow biopsy, possibly Sunday 3) bright red blood per rectum - likely lower GI bleed 2/2 internal hemorrhoids, s/p colonoscopy 06/13/17 - GI ppx 4) constipation - add Colace, Senna, and Miralax - monitor for rectal bleeding 5) IDDM - HS Levemir resumed - Novolog SSI - BGMs - continue home med of Neurontin for neuropathy - hold Glimepiride 6) htn - continue Carvedilol and Norvasc - hold any ACEi/ARBs 7) hld - continue home med of Lipitor 8) CAD - continue home med of Carvedilol - hold Plavix and ASA 9) FEN - Fluids: po - Electrolytes: continue to monitor - Nutrition: renal diet 10) Prophylaxis - DVT ppx with Heparin 5,000U SQ TID - GI ppx with Protonix - deconditioning ppx with PT Consult Visit type - Emergency Visit Emergency Visit: Yes ED Registration Date: 06/11/17 Care time: The patient presented to the Emergency Department on the above date and was hospitalized for further evaluation of their emergent condition. - New Patient This patient is new to me today: No - Critical Care Critical Care patient: No
[2017-06-14] MEDS: GABAPENTIN 100 MG CAPSULE (FP) PO SCH (10:09)
[2017-06-14] MEDS: amLODIPine BESYLATE 5 MG TABLET (FP) PO SCH (10:09)
[2017-06-14] MEDS: CARVEDILOL 12.5 MG TABLET (FP) PO SCH ×2 (10:09→21:40)
[2017-06-14] MEDS: CITALOPRAM HYDROBROMIDE 20 MG TABLET (FP) PO SCH (10:09)
[2017-06-14] MEDS: PANTOPRAZOLE 40 MG TABLET (FP) PO SCH (10:09)
[2017-06-14] MEDS: SENNOSIDES 8.6MG TABLET (FP) PO SCH ×2 (10:09→21:41)
--- NOTE | 2017-06-14 11:01 | PN ---
Progress Note, Physician History of Present Illness: Chart reviewed. No events, No bleeding. Comfortable. - Current Medication List Current Medications: Active Medications Amlodipine Besylate (Norvasc -) 5 mg PO DAILY [facility] Last Admin: 06/14/17 10:09 Dose: 5 mg Atorvastatin Calcium (Lipitor -) 20 mg PO HS [facility] Last Admin: 06/13/17 21:26 Dose: 20 mg Carvedilol (Coreg -) 12.5 mg PO BID [facility] Last Admin: 06/14/17 10:09 Dose: 12.5 mg Citalopram Hydrobromide (Celexa -) 20 mg PO DAILY [facility] Last Admin: 06/14/17 10:09 Dose: 20 mg Docusate Sodium (Colace -) 100 mg PO TID [facility] Last Admin: 06/14/17 07:20 Dose: 100 mg Gabapentin (Neurontin -) 100 mg PO DAILY [facility] Last Admin: 06/14/17 10:09 Dose: 100 mg Heparin Sodium (Porcine) (Heparin -) 5,000 unit SQ TID [facility] Last Admin: 06/14/17 07:20 Dose: 5,000 unit Insulin Aspart (Novolog Vial Sliding Scale -) 1 vial SQ TIDAC [facility] PRN Reason: Protocol Last Admin: 06/14/17 07:20 Dose: 4 units Pantoprazole Sodium (Protonix -) 40 mg PO DAILY [facility] Last Admin: 06/14/17 10:09 Dose: 40 mg Polyethylene Glycol (Miralax (For Daily Use) -) 17 gm PO DAILY PRN Senna (Senna -) 1 tab PO BID [facility] Last Admin: 06/14/17 10:09 Dose: 1 tab Tamsulosin HCl (Flomax -) 0.4 mg PO [facility] Last Admin: 06/13/17 21:26 Dose: 0.4 mg - Objective Vital Signs: Vital Signs Temperature 98.6 F 06/14/17 08:53 Pulse Rate 60 06/14/17 08:53 Respiratory Rate 18 06/14/17 08:53 Blood Pressure 151/62 06/14/17 08:53 O2 Sat by Pulse Oximetry (%) 99 06/13/17 21:15 Constitutional: Yes: No Distress, Calm Eyes: Yes: Conjunctiva Clear Gastrointestinal: Yes: Normal Bowel Sounds, Soft. No: Tenderness Neurological: Yes: Alert, Oriented Labs: CBC, BMP 06/14/17 06:00 11/09/17 06:00 INR, PTT INR 1.23 (0.82-1.09) H 06/13/17 07:00 Problem List - Problems (1) Anemia Code(s): D64.9 - ANEMIA, UNSPECIFIED Qualifiers: Anemia type: unspecified type Qualified Code(s): D64.9 - Anemia, unspecified (2) Chronic disease anemia Code(s): D63.8 - ANEMIA IN OTHER CHRONIC DISEASES CLASSIFIED ELSEWHERE (3) Hematochezia Code(s): K92.1 - MELENA (4) Chronic anemia Code(s): D64.9 - ANEMIA, UNSPECIFIED (5) Generalized abdominal pain Code(s): R10.84 - GENERALIZED ABDOMINAL PAIN Assessment/Plan A 71 yom with multiple, advanced, active medical issues including chronic anemia (CKD, anemia of chronic disease), now presents with hematochezia and mild , nonspecific abdominal pain. Normal EGD, random biopsies taken A polyp was found and removed. Grade II, uncomplicated, internal hemorrhoids noted, otherwise normal colonoscopy. Renal Diet, fiber supplements, or laxatives (i.e Miralax) as needed to avoid hard stools, constipation Follow path results
--- NOTE | 2017-06-14 11:59 | PATH ---
Surgical Pathology Report Patient Name: WILLA FRANCIS [facility]. Rec. #: [id number] /Age/Gender: 1945 (Age: 71) / M Account: [id number] Location: [facility] MED/SURG Taken: 06/13/2017 Received: 06/13/2017 Reported: 06/14/2017 Physicians: Artie Taylor M.D. Specimen(s) Received A: BX SECOND PORTION DUODENUM B: BX ANTRUM / BODY C: ASCENDING COLON POLYP D: BX ASCENDING COLON E: BX DESCENDING COLON Clinical History Anemia, hematochezia Colon polyp, internal hemorrhoids, anemia Final Diagnosis A. DUODENUM, SECOND PORTION, BIOPSY: DUODENAL MUCOSA WITH NO PATHOLOGIC CHANGES. NO HISTOLOGIC EVIDENCE OF GLUTEN SENSITIVE ENTEROPATHY (CELIAC SPRUE) IDENTIFIED. B. STOMACH, ANTRUM AND BODY, BIOPSY: GASTRIC MUCOSA WITH NO PATHOLOGIC CHANGES. IMMUNOSTAIN FOR H. PYLORI IS NEGATIVE. C. COLON, ASCENDING, POLYPECTOMY: MULTIPLE PORTIONS OF TUBULAR ADENOMA. D. COLON, ASCENDING, BIOPSY: COLONIC MUCOSA WITH NO PATHOLOGIC CHANGES. NO ACTIVE COLITIS, ARCHITECTURAL DISTORTION, GRANULOMATA, OR DYSPLASIA IDENTIFIED. NO MICROSCOPIC COLITIS IDENTIFIED (NO LYMPHOCYTIC OR COLLAGENOUS COLITIS IDENTIFIED). E. COLON, DESCENDING, BIOPSY: COLONIC MUCOSA WITH NO PATHOLOGIC CHANGES. NO ACTIVE COLITIS, ARCHITECTURAL DISTORTION, GRANULOMATA, OR DYSPLASIA IDENTIFIED. NO MICROSCOPIC COLITIS IDENTIFIED (NO LYMPHOCYTIC OR COLLAGENOUS COLITIS IDENTIFIED). Comment: Recommend correlation with clinical findings and follow up as clinically indicated. Electronically Signed [place] Thomas M.D. Gross Description A. Received in formalin, labeled "biopsy second portion of duodenum" are 2 jean-baptiste, irregular portions of soft tissue averaging 0.3 cm. in greatest dimension. The specimens are submitted in toto in one cassette. B. Received in formalin, labeled "biopsy antrum/body" are 2 jean-baptiste, irregular portions of soft tissue measuring 0.2 and 0.3 cm. in greatest dimension. The specimens are submitted in toto in one cassette. C. Received in formalin labeled "polyp ascending colon," is a 1.5 x 1.3 x 0.3 cm aggregate of multiple jean-baptiste, irregular to polypoid soft tissue fragments. The formalin is filtered and the specimen is entirely submitted in one cassette. D. Received in formalin, labeled "biopsy ascending colon" are 2 jean-baptiste, irregular portions of soft tissue measuring 0.1 and 0.2 cm. in greatest dimension. The specimens are submitted in toto in one cassette. E. Received in formalin, labeled "biopsy descending colon" are 3 jean-baptiste, irregular portions of soft tissue ranging from 0.2-0.4 cm. in greatest dimension. The specimens are submitted in toto in one cassette. 06/13/201706/13/2017
--- NOTE | 2017-06-14 14:52 | PN ---
Progress Note (short form) - Note Progress Note: Pt seen and examined. Walking in the room Denies any complains. O/E: AAOx3 CTA b/l RRR No LLE edema Last Vital Signs Temp Pulse Resp BP Pulse Ox 97.5 F L 57 L 18 146/58 98 06/14/17 14:26 06/14/17 14:40 06/14/17 14:26 06/14/17 14:40 06/14/17 08:55 CBC, BMP 06/14/17 06:00 06/14/17 06:00 Current Medications Generic Name Dose Route Start Last Admin Trade Name Freq PRN Reason Stop Dose Admin Amlodipine Besylate 5 mg 06/12/17 10:00 06/14/17 10:09 Norvasc - PO 5 mg DAILY ROSIE Administration Atorvastatin Calcium 20 mg 06/11/17 22:00 06/13/17 21:26 Lipitor - PO 20 mg HS ROSIE Administration Carvedilol 12.5 mg 06/11/17 22:00 06/14/17 10:09 Coreg - PO 12.5 mg BID ROSIE Administration Citalopram Hydrobromide 20 mg 06/12/17 10:00 06/14/17 10:09 Celexa - PO 20 mg DAILY ROSIE Administration Docusate Sodium 100 mg 06/11/17 22:00 06/14/17 14:23 Colace - PO 100 mg TID ROSIE Administration Gabapentin 100 mg 06/12/17 10:00 06/14/17 10:09 Neurontin - PO 100 mg DAILY ROSIE Administration Heparin Sodium (Porcine) 5,000 unit 06/11/17 22:00 06/14/17 14:23 Heparin - SQ 5,000 unit TID ROSIE Administration Insulin Aspart 1 vial 06/12/17 07:00 06/14/17 11:27 Novolog Vial Sliding Scale - SQ 2 units TIDAC [facility] Administration Protocol Insulin Detemir 15 units 06/14/17 12:15 Levemir Vial SQ HS [facility] Pantoprazole Sodium 40 mg 06/12/17 11:45 06/14/17 10:09 Protonix - PO 40 mg DAILY ROSIE Administration Polyethylene Glycol 17 gm 06/11/17 19:45 Miralax (For Daily Use) - PO DAILY PRN Senna 1 tab 06/11/17 22:00 06/14/17 10:09 Senna - PO 1 tab BID ROSIE Administration Tamsulosin HCl 0.4 mg 06/11/17 22:00 06/13/17 21:26 Flomax - PO 0.4 mg HS ROSIE Administration Assessment/Plan: CKD stage IV DM CAD htn hld -anemia, 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
[2017-06-14] MEDS ORDERED: FUROSEMIDE 40 MG TABLET (FP) PO ONE (16:28)
--- NOTE | 2017-06-14 16:30 | EKG ---
Test Reason : Blood Pressure : / mmHG Vent. Rate : 059 BPM Atrial Rate : 059 BPM P-R Int : 188 ms QRS Dur : 102 ms QT Int : 476 ms P-R-T Axes : 063 -08 147 degrees QTc Int : 471 ms SINUS BRADYCARDIA LEFT VENTRICULAR HYPERTROPHY WITH REPOLARIZATION ABNORMALITY CANNOT RULE OUT SEPTAL INFARCT , AGE UNDETERMINED ABNORMAL ECG WHEN COMPARED WITH ECG OF 11-JUN-2017 14:39, MINIMAL CRITERIA FOR SEPTAL INFARCT ARE NOW PRESENT Confirmed by SOFY PAUL MD ([id number]) on 06/14/2017 4:30:04 PM Referred By: Confirmed By:SOFY PAUL MD
--- NOTE | 2017-06-14 16:32 | PN ---
Progress Note, Physician History of Present Illness: Pt seen and examined at bedside. He is awake and alert. He had chest discomfort earlier today. He denies shortness of breath. - Current Medication List Current Medications: Active Medications Amlodipine Besylate (Norvasc -) 5 mg PO DAILY [facility] Last Admin: 06/14/17 10:09 Dose: 5 mg Atorvastatin Calcium (Lipitor -) 20 mg PO HS [facility] Last Admin: 06/13/17 21:26 Dose: 20 mg Carvedilol (Coreg -) 12.5 mg PO BID [facility] Last Admin: 06/14/17 10:09 Dose: 12.5 mg Citalopram Hydrobromide (Celexa -) 20 mg PO DAILY [facility] Last Admin: 06/14/17 10:09 Dose: 20 mg Docusate Sodium (Colace -) 100 mg PO TID [facility] Last Admin: 06/14/17 14:23 Dose: 100 mg Furosemide (Lasix -) 40 mg PO ONCE ONE Stop: 06/14/17 16:29 Gabapentin (Neurontin -) 100 mg PO DAILY [facility] Last Admin: 06/14/17 10:09 Dose: 100 mg Heparin Sodium (Porcine) (Heparin -) 5,000 unit SQ TID [facility] Last Admin: 06/14/17 14:23 Dose: 5,000 unit Insulin Aspart (Novolog Vial Sliding Scale -) 1 vial SQ TIDAC [facility] PRN Reason: Protocol Last Admin: 06/14/17 11:27 Dose: 2 units Insulin Detemir (Levemir Vial) 15 units SQ [facility] Pantoprazole Sodium (Protonix -) 40 mg PO DAILY [facility] Last Admin: 06/14/17 10:09 Dose: 40 mg Polyethylene Glycol (Miralax (For Daily Use) -) 17 gm PO DAILY PRN Senna (Senna -) 1 tab PO BID [facility] Last Admin: 06/14/17 10:09 Dose: 1 tab Tamsulosin HCl (Flomax -) 0.4 mg PO [facility] Last Admin: 06/13/17 21:26 Dose: 0.4 mg - Objective Vital Signs: Vital Signs Temperature 97.5 F L 06/14/17 14:26 Pulse Rate 57 L 06/14/17 14:40 Respiratory Rate 18 06/14/17 14:26 Blood Pressure 146/58 06/14/17 14:40 O2 Sat by Pulse Oximetry (%) 98 06/14/17 08:55 Constitutional: Yes: Calm Eyes: Yes: Conjunctiva Clear HENT: Yes: Atraumatic Neck: Yes: Supple Cardiovascular: Yes: S1, S2 Respiratory: Yes: CTA Bilaterally Gastrointestinal: Yes: Normal Bowel Sounds, Soft Genitourinary: Yes: WNL Musculoskeletal: Yes: WNL Edema: Yes Edema: LLE: Trace, RLE: Trace Neurological: Yes: Oriented Psychiatric: Yes: Oriented Labs: CBC, BMP 06/14/17 06:00 06/14/17 06:00 INR, PTT INR 1.23 (0.82-1.09) H 06/13/17 07:00 Problem List - Problems (1) Chronic anemia Code(s): D64.9 - ANEMIA, UNSPECIFIED (2) Chronic kidney disease Code(s): N18.9 - CHRONIC KIDNEY DISEASE, UNSPECIFIED Qualifiers: Chronic kidney disease stage: stage 4 (severe) Qualified Code(s): N18.4 - Chronic kidney disease, stage 4 (severe) (3) CAD (coronary artery disease) Code(s): I25.10 - ATHSCL HEART DISEASE OF CIRCLE CORONARY ARTERY W/O ANG PCTRS (4) Hyperlipidemia Code(s): E78.5 - HYPERLIPIDEMIA, UNSPECIFIED Assessment/Plan Current Medications Generic Name Dose Route Start Last Admin Trade Name David PRN Reason Stop Dose Admin Amlodipine Besylate 5 mg 06/12/17 10:00 06/14/17 10:09 Norvasc - PO 5 mg DAILY ROSIE Administration Atorvastatin Calcium 20 mg 06/11/17 22:00 06/13/17 21:26 Lipitor - PO 20 mg HS ROSIE Administration Carvedilol 12.5 mg 06/11/17 22:00 06/14/17 10:09 Coreg - PO 12.5 mg BID ROSIE Administration Citalopram Hydrobromide 20 mg 06/12/17 10:00 06/14/17 10:09 Celexa - PO 20 mg DAILY ROSIE Administration Docusate Sodium 100 mg 06/11/17 22:00 06/14/17 14:23 Colace - PO 100 mg TID ROSIE Administration Furosemide 40 mg 06/14/17 16:28 Lasix - PO 06/14/17 16:29 ONCE ONE Gabapentin 100 mg 06/12/17 10:00 06/14/17 10:09 Neurontin - PO 100 mg DAILY [facility]IE Administration Heparin Sodium (Porcine) 5,000 unit 06/11/17 22:00 06/14/17 14:23 Heparin - SQ 5,000 unit TID ROSIE Administration Insulin Aspart 1 vial 06/12/17 07:00 06/14/17 11:27 Novolog Vial Sliding Scale - SQ 2 units TIDAC [facility] Administration Protocol Insulin Detemir 15 units 06/14/17 12:15 Levemir Vial SQ HS [facility] Pantoprazole Sodium 40 mg 06/12/17 11:45 06/14/17 10:09 Protonix - PO 40 mg DAILY [facility] Administration Polyethylene Glycol 17 gm 06/11/17 19:45 Miralax (For Daily Use) - PO DAILY PRN Senna 1 tab 06/11/17 22:00 06/14/17 10:09 Senna - PO 1 tab BID ROSIE Administration Tamsulosin HCl 0.4 mg 06/11/17 22:00 06/13/17 21:26 Flomax - PO 0.4 mg HS [facility]IE Administration Impression 1. CKD 2. anemia 3. HTN 4. Chol 5. DM 6. BPH 7. CAD Plan - will give dose of lasix today and evaluate tomorrow - pt for bone marrow biopsy tomorrow - repeat labs in am - follow path from endoscopy - outpt renal workup had a positive spep - will plan further renal workup after reviewing bone marrow - discussed with vascular surgery, they will review vein mapping and follow him as outpt - cont current meds - avoid nsaids - will follow Dr Donovan
[2017-06-14] MEDS ORDERED: INSULIN DETEMIR 100 UNITS/ML MDV SQ ONE (16:50)
[2017-06-14] MEDS: INSULIN DETEMIR 100 UNITS/ML MDV SQ SCH ×2 (16:51→21:41)
[2017-06-14 18:54] LABS: TROPONIN I 0.54 ng/ml (0.00-0.05)
--- NOTE | 2017-06-14 20:25 | PN ---
Teaching Attending Note Name of Resident: Manuela Chang ATTENDING PHYSICIAN STATEMENT I saw and evaluated the patient. I reviewed the resident's note and discussed the case with the resident. I agree with the resident's findings and plan as documented. SUBJECTIVE: Patient is feeling better, going for Bone marrow Bx in am. otherwise no acute distress. OBJECTIVE: Vital Signs Temperature 98 F 06/14/17 18:36 Pulse Rate 61 06/14/17 18:36 Respiratory Rate 20 06/14/17 18:36 Blood Pressure 159/62 06/14/17 18:36 O2 Sat by Pulse Oximetry (%) 98 06/14/17 08:55 CBCD WBC 5.5 K/mm3 (4.0-10.0) 06/14/17 06:00 RBC 3.39 M/mm3 (4.00-5.60) L 06/14/17 06:00 Hgb 9.8 GM/dL (11.7-16.9) L 06/14/17 06:00 Hct 29.4 % (35.4-49) L 06/14/17 06:00 MCV 86.7 fl (80-96) 06/14/17 06:00 MCHC 33.4 g/dl (32.0-35.9) 06/14/17 06:00 RDW 15.5 % (11.9-15.9) 06/14/17 06:00 Plt Count 150 K/MM3 (134-434) 06/14/17 06:00 MPV 6.8 fl (7.5-11.1) L 06/14/17 06:00 CMP Sodium 142 mmol/L (136-145) 06/14/17 06:00 Potassium 4.6 mmol/L (3.5-5.1) 06/14/17 06:00 Chloride 107 mmol/L (98-107) 06/14/17 06:00 Carbon Dioxide 30 mmol/L (21-32) 06/14/17 06:00 Anion Gap 5 (8-16) L 06/14/17 06:00 BUN 61 mg/dL (7-18) H 06/14/17 06:00 Creatinine 3.6 mg/dL (0.7-1.3) H 06/14/17 06:00 Creat Clearance w eGFR 12.98 (>60) 06/11/17 14:50 Random Glucose 220 mg/dL (74-106) H D 06/14/17 06:00 Calcium 7.8 mg/dL (8.5-10.1) L 06/14/17 06:00 Total Bilirubin 0.4 mg/dL (0.2-1.0) 06/11/17 14:50 AST 16 U/L (15-37) 06/11/17 14:50 ALT 23 U/L (12-78) 06/11/17 14:50 Alkaline Phosphatase 108 U/L (45-117) 06/11/17 14:50 Total Protein 7.2 g/dl (6.4-8.2) 06/11/17 14:50 Albumin 3.4 g/dl (3.4-5.0) 06/11/17 14:50 CARDIAC ENZYMES Creatine Kinase 466 IU/L (39-308) H 06/14/17 17:00 Troponin I 0.54 ng/ml (0.00-0.05) H 06/14/17 17:00 Current Medications Generic Name Dose Route Start Last Admin Trade Name Andrzejq PRN Reason Stop Dose Admin Amlodipine Besylate 5 mg 06/12/17 10:00 06/14/17 10:09 Norvasc - PO 5 mg DAILY ROSIE Administration Atorvastatin Calcium 20 mg 06/11/17 22:00 06/13/17 21:26 Lipitor - PO 20 mg HS ROSIE Administration Carvedilol 12.5 mg 06/11/17 22:00 06/14/17 10:09 Coreg - PO 12.5 mg BID ROSIE Administration Citalopram Hydrobromide 20 mg 06/12/17 10:00 06/14/17 10:09 Celexa - PO 20 mg DAILY ROSIE Administration Docusate Sodium 100 mg 06/11/17 22:00 06/14/17 14:23 Colace - PO 100 mg TID ROSIE Administration Gabapentin 100 mg 06/12/17 10:00 06/14/17 10:09 Neurontin - PO 100 mg DAILY ROSIE Administration Heparin Sodium (Porcine) 5,000 unit 06/11/17 22:00 06/14/17 14:23 Heparin - SQ 5,000 unit TID ROSIE Administration Insulin Aspart 1 vial 06/12/17 07:00 06/14/17 16:49 Novolog Vial Sliding Scale - SQ 8 units TIDAC ROSIE Administration Protocol Insulin Detemir 15 units 06/14/17 12:15 06/14/17 16:51 Levemir Vial SQ 15 units HS ROSIE Administration Pantoprazole Sodium 40 mg 06/12/17 11:45 06/14/17 10:09 Protonix - PO 40 mg DAILY ROSIE Administration Polyethylene Glycol 17 gm 06/11/17 19:45 Miralax (For Daily Use) - PO DAILY PRN Senna 1 tab 06/11/17 22:00 06/14/17 10:09 Senna - PO 1 tab BID ROSIE Administration Tamsulosin HCl 0.4 mg 06/11/17 22:00 06/13/17 21:26 Flomax - PO 0.4 mg HS ROSIE Administration Home Medications Medication Instructions Recorded Cholecalciferol (Vitamin D3) 1,000 unit PO DAILY tablet 09/02/12 [Vitamin D3] Clopidogrel Bisulfate [Clopidogrel] 75 mg PO DAILY #90 tablet 01/10/16 Tamsulosin HCl 0.4 mg PO 2 QPM 05/19/16 Furosemide 40 mg PO DAILY tablet 08/14/16 Aspirin [ASA -] 81 mg PO DAILY 06/11/17 Carvedilol 12.5 mg PO BID 06/11/17 Famotidine 20 mg PO ASDIR 06/11/17 PE: per resident's note ASSESSMENT AND PLAN: 71 y/o pleasant gentleman with h/o hypertension, hyperlipidemia, osteomyletis, polyneuropathy,IDDM , CAD status post [place] status post CABG status post stents, and status post right hip replacement surgery, who presented for w/u of his anemia and worsening renal failure # Acute over chronic Renal Failure with transplanted Kidney on Immunosuppressive therapy continue. Nephro on the case will trend Creatinine. # Chronic normocytic anemia: s/p EGD and Colonscopy with negative result. report in the chart. # Rectal bleed: likely lower GI bleed from internal hemorrhoids. s/p EGd and colonoscopy with negative report. # DM : SS with coverage # HTN: on coreg and norvasc continue # h/o CAD: cont BB , hold ASA and plavix since going for Bone marrow Bx ,s/p EGD and colonoscopy DVT PX : heparin sq
[2017-06-14] MEDS: TAMSULOSIN HCL 0.4 MG CAP.ER.24H (FP) PO SCH (21:40)
[2017-06-14] MEDS: ATORVASTATIN CA 20 MG TABLET (FP) PO SCH (21:40)
[2017-06-14 23:30] LABS: TROPONIN I 0.52 ng/ml (0.00-0.05)
[2017-06-15] MEDS: DOCUSATE SODIUM 100 MG CAPSULE (FP) PO SCH ×2 (06:27→15:26)
[2017-06-15] MEDS: HEPARIN NA (PORCINE) 5,000 UNITS/ML 1ML VIAL SQ SCH ×2 (06:27→15:27)
[2017-06-15] MEDS: INSULIN SLIDING SCALE (NOVOLOG) 1 VIAL SQ SCH ×3 (06:28→18:33)
--- NOTE | 2017-06-15 07:24 | PN ---
Progress Note, Physician History of Present Illness: Chart reviewed. Polyp pathology: Tubular Adenoma. Discussed with the patient No events, No bleeding. Comfortable. Bone marrow biopsy today - Current Medication List Current Medications: Active Medications Amlodipine Besylate (Norvasc -) 5 mg PO DAILY [facility] Last Admin: 06/14/17 10:09 Dose: 5 mg Atorvastatin Calcium (Lipitor -) 20 mg PO HS [facility] Last Admin: 06/14/17 21:40 Dose: 20 mg Carvedilol (Coreg -) 12.5 mg PO BID [facility] Last Admin: 06/14/17 21:40 Dose: 12.5 mg Citalopram Hydrobromide (Celexa -) 20 mg PO DAILY [facility] Last Admin: 06/14/17 10:09 Dose: 20 mg Docusate Sodium (Colace -) 100 mg PO TID [facility] Last Admin: 06/15/17 06:27 Dose: 100 mg Gabapentin (Neurontin -) 100 mg PO DAILY [facility] Last Admin: 06/14/17 10:09 Dose: 100 mg Heparin Sodium (Porcine) (Heparin -) 5,000 unit SQ TID [facility] Last Admin: 06/15/17 06:27 Dose: 5,000 unit Insulin Aspart (Novolog Vial Sliding Scale -) 1 vial SQ TIDAC [facility] PRN Reason: Protocol Last Admin: 06/15/17 06:28 Dose: Not Given Insulin Detemir (Levemir Vial) 15 units SQ [facility] Last Admin: 06/14/17 21:41 Dose: 15 units Pantoprazole Sodium (Protonix -) 40 mg PO DAILY [facility] Last Admin: 06/14/17 10:09 Dose: 40 mg Polyethylene Glycol (Miralax (For Daily Use) -) 17 gm PO DAILY PRN Senna (Senna -) 1 tab PO BID [facility] Last Admin: 06/14/17 21:41 Dose: 1 tab Tamsulosin HCl (Flomax -) 0.4 mg PO [facility] Last Admin: 06/14/17 21:40 Dose: 0.4 mg - Objective Vital Signs: Vital Signs Temperature 98.2 F 06/15/17 05:33 Pulse Rate 55 L 06/15/17 05:33 Respiratory Rate 20 06/15/17 02:00 Blood Pressure 157/58 06/15/17 05:33 O2 Sat by Pulse Oximetry (%) 94 L 06/14/17 21:00 Constitutional: Yes: No Distress, Calm Gastrointestinal: Yes: Soft. No: Melena, Rectal Bleeding, Tenderness Neurological: Yes: Alert, Oriented Labs: INR, PTT INR 1.23 (0.82-1.09) H 06/13/17 07:00 CBCD WBC 5.5 K/mm3 (4.0-10.0) 06/14/17 06:00 RBC 3.39 M/mm3 (4.00-5.60) L 06/14/17 06:00 Hgb 9.8 GM/dL (11.7-16.9) L 06/14/17 06:00 Hct 29.4 % (35.4-49) L 06/14/17 06:00 MCV 86.7 fl (80-96) 06/14/17 06:00 MCHC 33.4 g/dl (32.0-35.9) 06/14/17 06:00 RDW 15.5 % (11.9-15.9) 06/14/17 06:00 Plt Count 150 K/MM3 (134-434) 06/14/17 06:00 MPV 6.8 fl (7.5-11.1) L 06/14/17 06:00 CMP Sodium 142 mmol/L (136-145) 06/14/17 06:00 Potassium 4.6 mmol/L (3.5-5.1) 06/14/17 06:00 Chloride 107 mmol/L (98-107) 06/14/17 06:00 Carbon Dioxide 30 mmol/L (21-32) 06/14/17 06:00 Anion Gap 5 (8-16) L 06/14/17 06:00 BUN 61 mg/dL (7-18) H 06/14/17 06:00 Creatinine 3.6 mg/dL (0.7-1.3) H 06/14/17 06:00 Creat Clearance w eGFR 12.98 (>60) 06/11/17 14:50 Calcium 7.8 mg/dL (8.5-10.1) L 06/14/17 06:00 Total Bilirubin 0.4 mg/dL (0.2-1.0) 06/11/17 14:50 AST 16 U/L (15-37) 06/11/17 14:50 ALT 23 U/L (12-78) 06/11/17 14:50 Alkaline Phosphatase 108 U/L (45-117) 06/11/17 14:50 Total Protein 7.2 g/dl (6.4-8.2) 06/11/17 14:50 Albumin 3.4 g/dl (3.4-5.0) 06/11/17 14:50 Problem List - Problems (1) Tubular adenoma of colon Code(s): D12.6 - BENIGN NEOPLASM OF COLON, UNSPECIFIED (2) Anemia Code(s): D64.9 - ANEMIA, UNSPECIFIED Qualifiers: Anemia type: unspecified type Qualified Code(s): D64.9 - Anemia, unspecified (3) Chronic disease anemia Code(s): D63.8 - ANEMIA IN OTHER CHRONIC DISEASES CLASSIFIED ELSEWHERE (4) Hematochezia Code(s): K92.1 - MELENA (5) Chronic anemia Code(s): D64.9 - ANEMIA, UNSPECIFIED (6) Generalized abdominal pain Code(s): R10.84 - GENERALIZED ABDOMINAL PAIN Assessment/Plan Polyp pathology: Tubular Adenoma. Repeat screening colonooscopy in 5 years. Discussed with the patient and he verbalized understanding. Renal Diet, fiber supplements, or laxatives (i.e Miralax) as needed to avoid hard stools, constipation Please recall GI as needed.
[2017-06-15 08:22] LABS: ALBUMIN 2.9 g/dl (3.4-5.0); ANION GAP 11 (8-16); BILIRUBIN,TOTAL 0.4 mg/dL (0.2-1.0); CALCIUM 7.9 mg/dL (8.5-10.1); CO2 24 mmol/L (21-32); CREATININE 3.7 mg/dL (0.7-1.3); GLUCOSE,RANDOM 78 mg/dL (74-106); SGOT/AST 36 U/L (15-37); SGPT/ALT 28 U/L (12-78); TOT PROT 6.3 g/dl (6.4-8.2)
[2017-06-15 08:23] LABS: ALK PHOS 82 U/L (45-117)
[2017-06-15] MEDS: PANTOPRAZOLE 40 MG TABLET (FP) PO SCH (09:16)
[2017-06-15] MEDS: GABAPENTIN 100 MG CAPSULE (FP) PO SCH (09:16)
[2017-06-15] MEDS: amLODIPine BESYLATE 5 MG TABLET (FP) PO SCH (09:16)
[2017-06-15] MEDS: CITALOPRAM HYDROBROMIDE 20 MG TABLET (FP) PO SCH (09:16)
[2017-06-15] MEDS: CARVEDILOL 12.5 MG TABLET (FP) PO SCH (09:17)
[2017-06-15] MEDS: SENNOSIDES 8.6MG TABLET (FP) PO SCH (09:17)
--- NOTE | 2017-06-15 09:30 | PN ---
Progress Note (short form) - Note Progress Note: Renal note appreciated. Vein mapping. Informed to f/u as out-patient for elective out-patient AV fistula.
[2017-06-15 10:34] LABS: BASOPHIL 0.8 % (0-2.0); EOSINOPHIL 4.3 % (0-4.5); MCH 28.5 pg (25.7-33.7); MCHC 33.3 g/dl (32.0-35.9); MEAN CELL VOLUME 85.5 fl (80-96); MEAN PLT VOLUME 7.2 fl (7.5-11.1); NEUTROPHILS 64.7 % (42.8-82.8); PLATELET COUNT 150 K/MM3 (134-434); RDW 15.3 % (11.9-15.9); WHITE BLOOD COUNT 5.3 K/mm3 (4.0-10.0)
[2017-06-15] MEDS ORDERED: LIDOCAINE HCL 1%, 10 MG/ML (20ML VIAL) ONE (11:59)
--- NOTE | 2017-06-15 12:42 | PN ---
Progress Note (short form) - Note Progress Note: Patient seen and examined No specific complaints Last Vital Signs Temp Pulse Resp BP Pulse Ox 97.9 F 56 L 18 160/65 94 L 06/15/17 09:38 06/15/17 09:38 06/15/17 09:38 06/15/17 09:38 06/14/17 21:00 HEENT: ROSEMARY, EOM Intact Oropharynx: No thrush, No mucositis Cor: RSR, No murmurs, No gallops Lungs: Clear to P&A Abd: Soft, Normal bowel sounds, No organomegaly Ext:No significant edema Skin: No rashes, Integument intact 06/15/17 06:00 06/15/17 06:00 Current Medications Generic Name Dose Route Start Last Admin Trade Name Freq PRN Reason Stop Dose Admin Amlodipine Besylate 5 mg 06/12/17 10:00 06/15/17 09:16 Norvasc - PO 5 mg DAILY ROSIE Administration Atorvastatin Calcium 20 mg 06/11/17 22:00 06/14/17 21:40 Lipitor - PO 20 mg HS ROSIE Administration Carvedilol 12.5 mg 06/11/17 22:00 06/15/17 09:17 Coreg - PO 12.5 mg BID ROSIE Administration Citalopram Hydrobromide 20 mg 06/12/17 10:00 06/15/17 09:16 Celexa - PO 20 mg DAILY ROSIE Administration Docusate Sodium 100 mg 06/11/17 22:00 06/15/17 06:27 Colace - PO 100 mg TID ROSIE Administration Gabapentin 100 mg 06/12/17 10:00 06/15/17 09:16 Neurontin - PO 100 mg DAILY ROSIE Administration Heparin Sodium (Porcine) 5,000 unit 06/11/17 22:00 06/15/17 06:27 Heparin - SQ 5,000 unit TID ROSIE Administration Insulin Aspart 1 vial 06/12/17 07:00 06/15/17 06:28 Novolog Vial Sliding Scale - SQ Not Given TIDAC [facility] Protocol Insulin Detemir 15 units 06/14/17 12:15 06/14/17 21:41 Levemir Vial SQ 15 units HS ROSIE Administration Pantoprazole Sodium 40 mg 06/12/17 11:45 06/15/17 09:16 Protonix - PO 40 mg DAILY ROSIE Administration Polyethylene Glycol 17 gm 06/11/17 19:45 Miralax (For Daily Use) - PO DAILY PRN Senna 1 tab 06/11/17 22:00 06/15/17 09:17 Senna - PO 1 tab BID ROSIE Administration Tamsulosin HCl 0.4 mg 06/11/17 22:00 06/14/17 21:40 Flomax - PO 0.4 mg HS ROSIE Administration Impression: Anemia- multifactorial hematest positive stool ;CHIARA, CKD Tubular adenoma DM HPL Plan BM asp and biopsy Renal and follow up
--- NOTE | 2017-06-15 12:43 | PROC ---
Bone Marrow Aspiration/Biopsy - Consent Risks and Benefits Explained: Yes Consent on Chart: Yes - Procedure Location: Right Iliac Crest Anesthesia: 1% Lidocaine Specimen: Obtained Position: Other (decubitus) Patient tolerated procedure: Well with minimal pain Sterile Dressing Applied: Yes (outpatient follow up. )
--- NOTE | 2017-06-15 13:27 | PN ---
Teaching Attending Note Name of Resident: Manuela Chang ATTENDING PHYSICIAN STATEMENT I saw and evaluated the patient. I reviewed the resident's note and discussed the case with the resident. I agree with the resident's findings and plan as documented. SUBJECTIVE: Patient had the Bone marrow Bx by today. comfortable with no acute distress. OBJECTIVE: Vital Signs Temperature 97.9 F 06/15/17 09:38 Pulse Rate 56 L 06/15/17 09:38 Respiratory Rate 18 06/15/17 09:38 Blood Pressure 160/65 06/15/17 09:38 O2 Sat by Pulse Oximetry (%) 94 L 06/14/17 21:00 CBCD WBC 5.3 K/mm3 (4.0-10.0) 06/15/17 06:00 RBC 3.35 M/mm3 (4.00-5.60) L 06/15/17 06:00 Hgb 9.6 GM/dL (11.7-16.9) L 06/15/17 06:00 Hct 28.7 % (35.4-49) L 06/15/17 06:00 MCV 85.5 fl (80-96) 06/15/17 06:00 MCHC 33.3 g/dl (32.0-35.9) 06/15/17 06:00 RDW 15.3 % (11.9-15.9) 06/15/17 06:00 Plt Count 150 K/MM3 (134-434) 06/15/17 06:00 MPV 7.2 fl (7.5-11.1) L 06/15/17 06:00 CMP Sodium 146 mmol/L (136-145) H 06/15/17 06:00 Potassium 4.3 mmol/L (3.5-5.1) 06/15/17 06:00 Chloride 111 mmol/L (98-107) H 06/15/17 06:00 Carbon Dioxide 24 mmol/L (21-32) 06/15/17 06:00 Anion Gap 11 (8-16) 06/15/17 06:00 BUN 62 mg/dL (7-18) H 06/15/17 06:00 Creatinine 3.7 mg/dL (0.7-1.3) H 06/15/17 06:00 Creat Clearance w eGFR 16.28 (>60) 06/15/17 06:00 Random Glucose 78 mg/dL (74-106) D 06/15/17 06:00 Calcium 7.9 mg/dL (8.5-10.1) L 06/15/17 06:00 Total Bilirubin 0.4 mg/dL (0.2-1.0) 06/15/17 06:00 AST 36 U/L (15-37) D 06/15/17 06:00 ALT 28 U/L (12-78) D 06/15/17 06:00 Alkaline Phosphatase 82 U/L (45-117) D 06/15/17 06:00 Total Protein 6.3 g/dl (6.4-8.2) L 06/15/17 06:00 Albumin 2.9 g/dl (3.4-5.0) L 06/15/17 06:00 CARDIAC ENZYMES Creatine Kinase 469 IU/L (39-308) H 06/14/17 20:30 Troponin I 0.52 ng/ml (0.00-0.05) H 06/14/17 20:30 Current Medications Generic Name Dose Route Start Last Admin Trade Name Andrzejq PRN Reason Stop Dose Admin Amlodipine Besylate 5 mg 06/12/17 10:00 06/15/17 09:16 Norvasc - PO 5 mg DAILY ROSIE Administration Atorvastatin Calcium 20 mg 06/11/17 22:00 06/14/17 21:40 Lipitor - PO 20 mg HS ROSIE Administration Carvedilol 12.5 mg 06/11/17 22:00 06/15/17 09:17 Coreg - PO 12.5 mg BID ROSIE Administration Citalopram Hydrobromide 20 mg 06/12/17 10:00 06/15/17 09:16 Celexa - PO 20 mg DAILY ROSIE Administration Docusate Sodium 100 mg 06/11/17 22:00 06/15/17 06:27 Colace - PO 100 mg TID ROSIE Administration Gabapentin 100 mg 06/12/17 10:00 06/15/17 09:16 Neurontin - PO 100 mg DAILY ROSIE Administration Heparin Sodium (Porcine) 5,000 unit 06/11/17 22:00 06/15/17 06:27 Heparin - SQ 5,000 unit TID ROSIE Administration Insulin Aspart 1 vial 06/12/17 07:00 06/15/17 06:28 Novolog Vial Sliding Scale - SQ Not Given TIDAC ROSIE Protocol Insulin Detemir 15 units 06/14/17 12:15 06/14/17 21:41 Levemir Vial SQ 15 units HS ROSIE Administration Pantoprazole Sodium 40 mg 06/12/17 11:45 06/15/17 09:16 Protonix - PO 40 mg DAILY ROSIE Administration Polyethylene Glycol 17 gm 06/11/17 19:45 Miralax (For Daily Use) - PO DAILY PRN Senna 1 tab 06/11/17 22:00 06/15/17 09:17 Senna - PO 1 tab BID ROSIE Administration Tamsulosin HCl 0.4 mg 06/11/17 22:00 06/14/17 21:40 Flomax - PO 0.4 mg HS ROSIE Administration PE: as per resident's note ASSESSMENT AND PLAN: 71 y/o pleasant gentleman with h/o hypertension, hyperlipidemia, osteomyletis, polyneuropathy,IDDM , CAD status post [place] status post CABG status post stents, and status post right hip replacement surgery, who presented for w/u of his anemia and worsening renal failure # s/p Bone Marrow Bx today due to progressive renal insufficiency, progressive anemia, mild increase in free kappa/ free lambda light chain ratio. r/o MM patient will follow with within 10 days. # Acute over chronic Renal Failure with transplanted Kidney on Immunosuppressive therapy continue. Nephro follow up with within a week. # Chronic normocytic anemia: s/p EGD and Colonscopy with negative result. report in the chart. # Rectal bleed: likely lower GI bleed from internal hemorrhoids. s/p EGd and colonoscopy with negative report. # DM : SS with coverage # HTN: on coreg and norvasc continue # h/o CAD: cont BB , hold ASA and plavix for now, restart plavix and ASA TOMORROW.
[2017-06-15] MEDS ORDERED: EPOETIN ALFA 2,000 UNITS/1 ML VIAL SQ ONE (15:11)
[2017-06-15] MEDS ORDERED: EPOETIN ALFA 20,000 UNIT/1 ML VIAL SQ ONE (15:32)
--- NOTE | 2017-06-15 15:37 | PN ---
Progress Note, Physician History of Present Illness: Pt seen and examined at bedside. He is awake and alert. He had the bone marrow done today. - Current Medication List Current Medications: Active Medications Amlodipine Besylate (Norvasc -) 5 mg PO DAILY [facility] Last Admin: 06/15/17 09:16 Dose: 5 mg Atorvastatin Calcium (Lipitor -) 20 mg PO HS [facility] Last Admin: 06/14/17 21:40 Dose: 20 mg Carvedilol (Coreg -) 12.5 mg PO BID [facility] Last Admin: 06/15/17 09:17 Dose: 12.5 mg Citalopram Hydrobromide (Celexa -) 20 mg PO DAILY [facility] Last Admin: 06/15/17 09:16 Dose: 20 mg Docusate Sodium (Colace -) 100 mg PO TID [facility] Last Admin: 06/15/17 15:26 Dose: 100 mg Epoetin Jose Francisco (Epogen -) 20,000 units SQ ONCE ONE Stop: 06/15/17 15:33 Gabapentin (Neurontin -) 100 mg PO DAILY [facility] Last Admin: 06/15/17 09:16 Dose: 100 mg Heparin Sodium (Porcine) (Heparin -) 5,000 unit SQ TID [facility] Last Admin: 06/15/17 15:27 Dose: 5,000 unit Insulin Aspart (Novolog Vial Sliding Scale -) 1 vial SQ TIDAC [facility] PRN Reason: Protocol Last Admin: 06/15/17 11:00 Dose: Not Given Insulin Detemir (Levemir Vial) 15 units SQ [facility] Last Admin: 06/14/17 21:41 Dose: 15 units Pantoprazole Sodium (Protonix -) 40 mg PO DAILY [facility] Last Admin: 06/15/17 09:16 Dose: 40 mg Polyethylene Glycol (Miralax (For Daily Use) -) 17 gm PO DAILY PRN Senna (Senna -) 1 tab PO BID [facility] Last Admin: 06/15/17 09:17 Dose: 1 tab Tamsulosin HCl (Flomax -) 0.4 mg PO HS [facility] Last Admin: 06/14/17 21:40 Dose: 0.4 mg - Objective Vital Signs: Vital Signs Temperature 97.7 F 06/15/17 13:41 Pulse Rate 56 L 06/15/17 13:41 Respiratory Rate 20 06/15/17 13:41 Blood Pressure 120/56 06/15/17 13:41 O2 Sat by Pulse Oximetry (%) 94 L 06/14/17 21:00 Constitutional: Yes: Calm Eyes: Yes: Conjunctiva Clear HENT: Yes: Atraumatic Neck: Yes: Supple Cardiovascular: Yes: S1, S2 Respiratory: Yes: CTA Bilaterally Gastrointestinal: Yes: Soft Genitourinary: Yes: WNL Musculoskeletal: Yes: WNL Edema: Yes Edema: LLE: Trace, RLE: Trace Neurological: Yes: Oriented Psychiatric: Yes: Oriented Labs: CBC, BMP 06/15/17 06:00 06/15/17 06:00 INR, PTT INR 1.23 (0.82-1.09) H 06/13/17 07:00 Problem List - Problems (1) Chronic anemia Code(s): D64.9 - ANEMIA, UNSPECIFIED (2) Chronic kidney disease Code(s): N18.9 - CHRONIC KIDNEY DISEASE, UNSPECIFIED Qualifiers: Chronic kidney disease stage: stage 4 (severe) Qualified Code(s): N18.4 - Chronic kidney disease, stage 4 (severe) (3) CAD (coronary artery disease) Code(s): I25.10 - ATHSCL HEART DISEASE OF [place] CORONARY ARTERY W/O ANG PCTRS (4) Hyperlipidemia Code(s): E78.5 - HYPERLIPIDEMIA, UNSPECIFIED Assessment/Plan Current Medications Generic Name Dose Route Start Last Admin Trade Name Freq PRN Reason Stop Dose Admin Amlodipine Besylate 5 mg 06/12/17 10:00 06/15/17 09:16 Norvasc - PO 5 mg DAILY ROSIE Administration Atorvastatin Calcium 20 mg 06/11/17 22:00 06/14/17 21:40 Lipitor - PO 20 mg HS ROSIE Administration Carvedilol 12.5 mg 06/11/17 22:00 06/15/17 09:17 Coreg - PO 12.5 mg BID ROSIE Administration Citalopram Hydrobromide 20 mg 06/12/17 10:00 06/15/17 09:16 Celexa - PO 20 mg DAILY ROSIE Administration Docusate Sodium 100 mg 06/11/17 22:00 06/15/17 15:26 Colace - PO 100 mg TID ROSIE Administration Epoetin Jose Francisco 20,000 units 06/15/17 15:32 Epogen - SQ 06/15/17 15:33 ONCE ONE Furosemide 60 mg 06/15/17 15:45 Lasix - PO DAILY ROSIE Gabapentin 100 mg 06/12/17 10:00 06/15/17 09:16 Neurontin - PO 100 mg DAILY ROSIE Administration Heparin Sodium (Porcine) 5,000 unit 06/11/17 22:00 06/15/17 15:27 Heparin - SQ 5,000 unit TID ROSIE Administration Insulin Aspart 1 vial 06/12/17 07:00 06/15/17 11:00 Novolog Vial Sliding Scale - SQ Not Given TIDAC [facility] Protocol Insulin Detemir 15 units 06/14/17 12:15 06/14/17 21:41 Levemir Vial SQ 15 units HS ROSIE Administration Pantoprazole Sodium 40 mg 06/12/17 11:45 06/15/17 09:16 Protonix - PO 40 mg DAILY ROSIE Administration Polyethylene Glycol 17 gm 06/11/17 19:45 Miralax (For Daily Use) - PO DAILY PRN Senna 1 tab 06/11/17 22:00 06/15/17 09:17 Senna - PO 1 tab BID ROSIE Administration Tamsulosin HCl 0.4 mg 06/11/17 22:00 06/14/17 21:40 Flomax - PO 0.4 mg HS ROSIE Administration Impression 1. CKD 2. anemia 3. HTN 4. Chol 5. DM 6. BPH 7. CAD Plan - pt had bone marrow done today, follow results - he will follow with Dr Fernandez in the office - procrit dose today - can restart lasix - follow path from endoscopy - outpt renal workup had a positive spep - cont current meds - avoid nsaids - will follow Dr Donovan
[2017-06-15] MEDS ORDERED: FUROSEMIDE 40 MG TABLET (FP) PO SCH ×2 (15:45)
[2017-06-15 16:55] VITALS: BP 153/66; PULSE 62; TEMP 97.8
--- NOTE | 2017-06-15 22:34 | DS ---
Physical Exam: SUBJECTIVE: Patient seen and examined. Pt denies fever, chills, chest pain, abdominal pain. Pt feeling fine and wants to go home today. No events overnight. OBJECTIVE: Vital Signs Period Temp Pulse Resp BP Sys/Rodriguez Pulse Ox Last 24 Hr 97.7 F-98.2 F 55-64 18-20 120-183/56-70 97 PHYSICAL EXAM GENERAL: The patient is awake, alert, and fully oriented, in no acute distress. HEAD: Normal with no signs of trauma. EYES: Extraocular movements intact, sclera anicteric, conjunctiva clear. ENT: EMoist mucous membranes. NECK: Trachea midline, supple. LUNGS: Breath sounds equal, clear to auscultation bilaterally, no wheezes, no crackles, no accessory muscle use. HEART: Regular rate and rhythm, S1, S2 without murmur, rub or gallop. ABDOMEN: Soft, nontender, nondistended, normoactive bowel sounds, no guarding, no rebound, no masses. EXTREMITIES: Warm, well-perfused, no edema. NEUROLOGICAL: Cranial nerves II through XII grossly intact. Normal speech, gait not observed. PSYCH: Normal mood, normal affect. SKIN: Warm, dry, normal turgor, no rashes or lesions noted. LABS Laboratory Results - last 24 hr 06/14/17 06/15/17 06/15/17 20:30 06:00 06:00 WBC 5.3 RBC 3.35 L Hgb 9.6 L Hct 28.7 L MCV 85.5 MCH 28.5 MCHC 33.3 RDW 15.3 Plt Count 150 MPV 7.2 L Neutrophils % 64.7 Lymphocytes % 17.4 D Monocytes % 12.8 H Eosinophils % 4.3 D Basophils % 0.8 Sodium 146 H Potassium 4.3 Chloride 111 H Carbon Dioxide 24 Anion Gap 11 BUN 62 H Creatinine 3.7 H Creat Clearance w eGFR 16.28 POC Glucometer Random Glucose 78 D Calcium 7.9 L Total Bilirubin 0.4 AST 36 D ALT 28 D Alkaline Phosphatase 82 D Creatine Kinase 469 H Creatine Kinase Index 1.1 CK-MB (CK-2) 5.414 H Troponin I 0.52 H Total Protein 6.3 L Albumin 2.9 L 06/15/17 06/15/17 06:26 11:46 WBC RBC Hgb Hct MCV MCH MCHC RDW Plt Count MPV Neutrophils % Lymphocytes % Monocytes % Eosinophils % Basophils % Sodium Potassium Chloride Carbon Dioxide Anion Gap BUN Creatinine Creat Clearance w eGFR POC Glucometer 81 123 Random Glucose Calcium Total Bilirubin AST ALT Alkaline Phosphatase Creatine Kinase Creatine Kinase Index CK-MB (CK-2) Troponin I Total Protein Albumin HOSPITAL COURSE: Date of Admission:06/11/17 Date of Discharge: 06/15/17 71yo M with PMH of chronic anemia, worsening CKD stage IV, IDDM, CAD with [place], htn, hld, presents for work-up of his worsening kidney function and chronic anemia. Hypertroponemia noted, likely 2/2 demand ischemia related to chronic kidney disease and chronic anemia. Troponins trending down prior to discharge. 06/11/17 CXR -> no active disease 06/11/17 US bladder -> moderate post void residual noted 06/13/17 Duplex kylie UE -> patent Left UE vasculature for future fistula 06/13/17 EGD -> multiple random biopsies taken, normal EGD 06/13/17 Colonoscopy -> polyp removed -> Tubular Adenoma. Repeat screening colonoscopy in 5 yrs. Internal hemorrhoids noted, otherwise normal colonoscopy. 06/15/17 Bone Marrow Biopsy -> pending. Pt to f/u with Heme/Onc (Dr. Lisa) as an outpatient. Nephrology (Dr. Donovan) recommends avoid NSAIDs. Chronic constipation treated with Colace, Senna, and prn Miralax. Pt ambulated 200 feet with PT on 06/15/17. Pt stable for discharge home. Minutes to complete discharge: 35 Discharge Summary Reason For Visit: ANEMIA, CKD Condition: Improved - Instructions Diet, Activity, Other Instructions: You were treated for progressive kidney disease and chronic anemia. You received an EsophagoGastroDuodenoscopy (EGD), a colonoscopy, and a bone marrow biopsy. Your EGD was normal. During your colonoscopy a polyp was found and removed. The polyp was biopsied and found to be Tubular Adenoma, a follow up colonoscopy is recommended in 5 years. The results of your bone marrow biopsy are still pending. Please continue to take your medications as prescribed. The Norvasc is a new medication you should take once a day to help decrease your blood pressure. Colace is a stool soften and Miralax is a laxative to help with your chronic constipation. Please resume your Plavix and Aspirin tomorrow. Please eat a renal, diabetic diet. Please resume physical activity as tolerated. Please schedule a follow-up appointment with your Primary Care Physician (Dr. Del Valle) within 1 week of leaving the hospital. Please schedule a follow-up appointment with your Fire Tower Keeper (Dr. Leslie) within 1 week of leaving the hospital. Please return to the hospital immediately if you experience persistent or increased weakness, difficulty breathing, abdominal pain, or for any medical emergency. Referrals: Isac Leslie MD [Staff Physician] - 1 Week Bernardo Del Valle MD [Primary Care Provider] - 1 Week Disposition: HOME - Home Medications Comprehensive Discharge Medication List: Ambulatory Orders Cholecalciferol (Vitamin D3) [Vitamin D3] 1,000 unit PO DAILY tablet 09/02/12 Clopidogrel Bisulfate [Clopidogrel] 75 mg PO DAILY #90 tablet 01/10/16 Tamsulosin HCl 0.4 mg PO 2 QPM 05/19/16 Furosemide 40 mg PO DAILY tablet 08/14/16 Aspirin [ASA -] 81 mg PO DAILY 06/11/17 Carvedilol 12.5 mg PO BID 06/11/17 Famotidine 20 mg PO ASDIR 06/11/17 Amlodipine Besylate [Norvasc -] 5 mg PO DAILY #30 tablet 06/15/17 Docusate Sodium [Colace -] 100 mg PO TID #90 capsule 06/15/17 Polyethylene Glycol 3350 [Miralax 119 gm Btl -] 17 gm PO DAILY PRN #1 bottle 05/22 This patient is new to me today: No Emergency Visit: Yes ED Registration Date: 06/11/17 Care time: The patient presented to the Emergency Department on the above date and was hospitalized for further evaluation of their emergent condition. Critical Care patient: No - Discharge Referral Referred to [facility] Yes Physician Referral: Isac Leslie DO (Neph)
--- NOTE | 2017-06-22 20:12 | PATH ---
Surgical Pathology Report Patient Name: WILLA FRANCIS Med. Rec. #: [id number] /Age/Gender: 1945 (Age: 71) / M Account: [id number] Location: [facility] MED/SURG Taken: 06/15/2017 Received: 06/15/2017 Reported: 06/22/2017 Physicians: Manish Lisa M.D. Specimen(s) Received A: BONE MARROW BIOPSY B: BONE MARROW ASPIRATION SMEARS C: BONE MARROW BLOOD Clinical History Dysproteinemia, renal failure, anemia Final Diagnosis A & B. BONE MARROW, CORE BIOPSY AND ASPIRATE SMEARS: NORMOCELLULAR BONE MARROW WITH ADEQUATELY MATURING TRILINEAGE HEMATOPOIESIS. NO EVIDENCE OF PLASMA CELL NEOPLASM OR OVERT DYSPLASIA, SEE COMMENT. DECREASED STAINABLE STORAGE IRON. Comment: This case was seen in consultation with Dr. David Thomas, staff hematopathologist, from [place], [place] ([id number]). The diagnosis above reflects the consultation opinion. The plasma cells represent <5% of the bone marrow elements and clonal populations cannot be demonstrated by flow cytometry immunophenotyping or immunohistochemistry. Serum immuno fixation and quantitative immuno globulins may be a more sensitive methodology for detection of low plasma cell gammopathies. Although no overt or advance myelodysplastic changes are evident, these results should be correlated with cytogenetic studies for complete diagnostic interpretation. Evolving low grade myelodysplastic process cannot be completely ruled out. Unable to perform Congo red stain due to tissue loss (attempted twice). Aspirate smear: Cellularity: cellular, spicular Myeloid Precursors; Complete granulocytic maturation to segmented neutrophils without significant shift or dysplasia. Myeloblasts are not increased. Erythroid precursors: with mild NC asynchrony and focal dyspoiesis. Megakaryocytes: Unremarkable. Lymphoid cells: Focally slightly increased, small-medium sized. Plasma cells: Mildly increased, mature-appearing, polymorphous, including forms and abundant basophilic cytoplasm. Iron: Decreased (1+, focal). No ringed sideroblasts are seen. Core Biopsy /clot: Normocellular (25-30%) bone marrow with adequately maturing trilineage hematopoiesis. The M:E ratio is within normal limits to focally slightly decreased. CD34 + myeloblasts are not increased. The megakaryocytes are morphologically unremarkable, proportional to the cellularity, highlighted with CD61 immunostain. No significant lymphoid or plasma cell infiltrates are present. Immunostains for CD138 and MUM-1 have been performed. The plasma cells are 2-3% of bone marrow elements, with focal cluster formation. The bony trabeculae are unremarkable. Reticulin: Not increased. Iron: Stainable iron is not detected. Iron stain core biopsy may not be as sensitive as on the aspirate smear partially due to decalcification artifact. C. BONE MARROW FLOW CYTOMETRY COMPREHENSIVE FLOW PANEL performed and interpreted at [place], [place] ([id number]) shows the following: INTERPRETATION: In the sample analyzed, there is no evidence for abnormal myeloid maturation or an increased blast population. There is no evidence for a lymphoproliferative disorder or plasma cell dyscrasia. MULTIPLE MYELOMA FISH PANEL performed and interpreted at [place], [place] ([id number]) shows the following: INTERPRETATION: No evidence of deletion of RB1 (13q14) No evidence of a deletion of the p53 (17p13) locus. No evidence of duplication of 1q21 is present No CCND1/IGH t(11;14) translocation is detected No FGFR3/IGH t(4;14) translocation is detected No IGH/MAF t(14;16) translocation is detected. See [facility] reports for additional details. Cytogenetics report pending and will be reported as an addendum. Electronically Signed Erin Zavaleta M.D. Addendum Reported: 06/26/2017 Addendum Diagnosis Cytogenetic Karyotype Analysis performed and interpreted at [place], [place] ([id number]) shows the following: RESULTS: 46,XY[20] INTERPRETATION: Normal karyotype. Within the limits of the cytogenetic methods, the chromosomes had normal G-banding patterns with no evidence of an acquired clonal numerical or structural abnormality. This normal result does not rule out a neoplasm. Subtle rearrangements or the presence of an aberrant clone in a low proportion of cells cannot be ruled out. Correlation with other clinical and hematologic data is suggested. Analysis was performed on cells from an unstimulated tissue culture and a tissue culture that was stimulated with lymphoid mitogens. See [facility] report for additional details. Erin Zavaleta M.D. Gross Description A. Received in formalin, labeled with the patient's name and indicated on the requisition to be a bone marrow biopsy are 2 jean-baptiste, cylindrical portions of bone averaging 1.1 cm in length and 0.2 cm in diameter, with attached blood clot. The specimen is submitted in toto in one cassette, following decalcification. B. Received are 8 bone marrow aspiration smear slides. C. Received are 2 green top tubes of bone marrow blood which are sent to [facility]. 06/15/2017 [facility]/2017
== END 2017-06-15 18:45 | disposition home or self-care (01) | DRG 683 ==
LOC: JER 12:09 → JERBED 17:23 → J7W 19:37
PROVIDERS: ADMIT Internal Medicine; ATTEND Internal Medicine
PROC: 0DBK8ZX Excision of Ascending Colon, Via Natural or Artificial Opening Endoscopic, Diagnostic (ICD-10-PCS; 2017-06-13)
PROC: 0DDK8ZX Extraction of Ascending Colon, Via Natural or Artificial Opening Endoscopic, Diagnostic (ICD-10-PCS; 2017-06-13)
PROC: 0DDM8ZX Extraction of Descending Colon, Via Natural or Artificial Opening Endoscopic, Diagnostic (ICD-10-PCS; 2017-06-13)
PROC: 0DD68ZX Extraction of Stomach, Via Natural or Artificial Opening Endoscopic, Diagnostic (ICD-10-PCS; principal; 2017-06-13 12:00)
PROC: 07DR3ZX Extraction of Iliac Bone Marrow, Percutaneous Approach, Diagnostic (ICD-10-PCS; 2017-06-15)
DX: N17.9 Acute kidney failure, unspecified (principal); R04.2 Hemoptysis; K92.1 Melena; D63.1 Anemia in chronic kidney disease; N18.4 Chronic kidney disease, stage 4 (severe); I25.10 Atherosclerotic heart disease of native coronary artery without angina pectoris; K21.9 Gastro-esophageal reflux disease without esophagitis; E78.00 Pure hypercholesterolemia, unspecified; M54.89 Other dorsalgia; I12.9 Hypertensive chronic kidney disease with stage 1 through stage 4 chronic kidney disease, or unspecified chronic kidney disease; E11.22 Type 2 diabetes mellitus with diabetic chronic kidney disease; I25.2 Old myocardial infarction; K64.8 Other hemorrhoids; E83.41 Hypermagnesemia; E83.39 Other disorders of phosphorus metabolism; D12.6 Benign neoplasm of colon, unspecified; K59.09 Other constipation; D63.8 Anemia in other chronic diseases classified elsewhere; R10.84 Generalized abdominal pain; E11.40 Type 2 diabetes mellitus with diabetic neuropathy, unspecified; Z96.641 Presence of right artificial hip joint; Z87.891 Personal history of nicotine dependence; Z95.1 Presence of aortocoronary bypass graft; Z95.5 Presence of coronary angioplasty implant and graft
CPT/HCPCS: 36415; 71020-TC; 76775-TC; 76856-TC; 80048; 80053; 81003; 81015; 82272; 82550; 82553; 82570; 82607; 82728; 82747; 83540; 83550; 83605; 83615; 83735; 84100; 84156; 84466; 84484; 84550; 85014; 85025; 85027; 85610; 85730; 86850; 86900; 86901; 88300-TC; 88305-TC; 88311-TC; 88313-TC; 93005; 93010; 93931; 93971; 97116-GP; 97161-GP; 99285-25; J0885; J1644

== ENCOUNTER 2017-07-14 16:47 | Observation (INO) | payer OTHER, MEDICARE ==
--- NOTE | 2017-07-14 17:08 | PDOC ---
History of Present Illness - General History Source: Patient Exam Limitations: No Limitations - History of Present Illness Initial Comments: 07/14/17 18:21 Patient is a 71 year old male with a significant past medical history of stage 4 CKD, chronic anemia (on iron), IDDM, [place] in the past CAD s/p CABG and subsequent stents x2, HTN, and HLD who presents to the ED with complaints of back pain that began last night. Patient reports getting discharged from hospital home, afternoon s/p chronic kidney disease. He than reports returning to work sunday, requiring him to stand all day, before experiencing intense lower back pain after returning home. Patient does not rate pain on a scale but does state he is unable to walk properly or move in any direction without causing pain. As per patient's , patient's PCP was called and advised patient to get admitted to the hospital if the pain is severe. Patient states experiencing bilateral hip pain secondary to lower back pain and state back pain radiates down his left leg. Patient reports experiencing episodes of constipation stating that is increased the pain of his lower back. As per patient's , patient went to see chiropractor this morning but states that only made the problem worse. Denies Allergies: acetaminophen , oxycodone HCl , ticagrelor Social history: Lives with . Former smoker (30 years). No alcohol. No illicit drugs. Surgical history: Lumbar surgery, Right hip surgery. PMD: Dr. lambert Burning Supervisor: Dr. Isac Leslie Mail List Librarian: Dr. Lisa Cab Driver: not affiliated <Frederick Cifuentes - Last Filed: 07/14/17 18:21> <Emilio Ball - Last Filed: 07/14/17 19:01> - General Chief Complaint: Back Pain Stated Complaint: BACK PAIN Time Seen by Provider: 07/14/17 16:58 Past History <Frederick Cifuentes - Last Filed: 07/14/17 18:21> - Past Medical History Anemia: Yes (taking iron) Asthma: No Cancer: No Cardiac Disorders: Yes (CAD, CABG, stents) CVA: No COPD: No CHF: No DVT: No Dementia: No Diabetes: Yes (x41 yrs) GI Disorders: Yes (GERD, G-I bleed) Disorders: No HTN: Yes Hypercholesterolemia: Yes Liver Disease: No Seizures: No Thyroid Disease: No - Surgical History Abdominal Surgery: Yes (Left Inguinal Hernia Repair) Appendectomy: No Cardiac Surgery: Yes (Bypass Surgery 18 yrs ago, Followed by Stents placement x2 ) Cholecystectomy: No Lung Surgery: No Neurologic Surgery: No Orthopedic Surgery: Yes (Laminectomy) - Immunization History Immunization Up to Date: Yes - Suicide/Smoking/Psychosocial Hx Smoking History: Never smoked Have you smoked in the past 12 months: No If you are a former smoker, when did you quit?: 30YRS Information on smoking cessation initiated: No Hx Alcohol Use: No Drug/Substance Use Hx: No Substance Use Type: None Hx Substance Use Treatment: No <Emilio Ball - Last Filed: 07/14/17 19:01> - Past Medical History Allergies/Adverse Reactions: Allergies Allergy/AdvReac Type Severity Reaction Status Date / Time acetaminophen [From Percocet] AdvReac Intermediate nausea Verified 07/14/17 16: 48 oxycodone HCl [From Percocet] AdvReac Intermediate nausea Verified 07/14/17 16: 48 ticagrelor [From BRILINTA] AdvReac Intermediate Verified 07/14/17 16:48 Home Medications: Ambulatory Orders Cholecalciferol (Vitamin D3) [Vitamin D3] 1,000 unit PO DAILY tablet 09/02/12 Clopidogrel Bisulfate [Clopidogrel] 75 mg PO HS #90 tablet 01/10/16 Tamsulosin HCl 0.8 mg PO HS 05/19/16 Aspirin [ASA -] 81 mg PO DAILY 06/11/17 Carvedilol 12.5 mg PO BID 06/11/17 Famotidine 20 mg PO ASDIR 06/11/17 Ferrous Sulfate [Feosol] 325 mg PO DAILY ud 07/12/17 Furosemide [Lasix -] 40 mg PO BID #60 tablet 07/12/17 Docusate Sodium [Colace -] 100 mg PO TID PRN 07/14/17 Insulin Glargine,Hum.rec.anlog [Lantus Solostar PEN (NF)] 15 units SQ HS Review of Systems - Review of Systems Able to Perform ROS?: Yes Comments:: 07/14/17 18:22 CONSTITUTIONAL: Absent: Fever, Chills, Diaphoresis, Generalized Weakness, Malaise, Loss of Appetite HEENT: Absent: Rhinorrhea, Nasal Congestion, Throat Pain, Throat Swelling, Difficulty Swallowing, Mouth Swelling, Ear Pain, Eye Pain, Visual Changes CARDIOVASCULAR: Absent: Chest Pain, Syncope, Palpitations, Irregular Heart Rate, Lightheadedness , Peripheral Edema RESPIRATORY: Absent: Cough, Shortness of Breath, SOB with Exertion, Orthopnea, Wheezing, Stridor, Hemoptysis GASTROINTESTINAL: Absent: Abdominal pain, Abdominal Distension, Nausea, Vomiting, Diarrhea, Constipation, Melena, Hematochezia GENITOURINARY: Absent: Dysuria, Frequency, Urgency, Hesitancy, Flank Pain, Genital Pain MUSCULOSKELETAL: +Lower back pain. +Bilateral hip pain. +Left leg pain. Absent: Myalgia, Arthralgia, Joint Swelling, Neck Pain SKIN: Absent: Rash, Itching, PalloR HEMATOLOGIC/IMMUNOLOGIC: Absent: Easy Bleeding, Easy Bruising, Lymphadenopathy, Frequent infections ENDOCRINE: Absent: Unexplained Weight Gain, Unexplained Weight Loss, Heat Intolerance, Cold Intolerance NEUROLOGIC: Absent: Headache, Focal Weakness, Paresthesias, Vertigo, Lightheadedness, Unsteady Gait, Seizure, Mental Status Changes, Incontinence PSYCHIATRIC: Absent: Anxiety, Depression All Other Systems: Reviewed and Negative <Frederick Cifuentes - Last Filed: 07/14/17 18:21> *Physical Exam - Vital Signs Last Vital Signs Temp Pulse Resp BP Pulse Ox 97.7 F 75 16 143/67 95 07/14/17 16:48 07/14/17 16:48 07/14/17 16:48 07/14/17 16:48 07/14/17 16:48 - Physical Exam Comments: 07/14/17 18:22 GENERAL: The patient is awake, alert, and fully oriented, in no acute distress while lying still on the stretcher. When attempting to sit up patient has extreme lumbar pain and difficulty moving due to pain on motion. HEAD: Normal with no signs of trauma. EYES: Pupils equal, round and reactive to light, extraocular movements intact, sclera anicteric, conjunctiva clear. ENT: Ears normal, nares patent, oropharynx clear without exudates. Moist mucous membranes. NECK: Normal range of motion, supple without lymphadenopathy, JVD, or masses. LUNGS: Breath sounds equal, clear to auscultation bilaterally. No wheezes, and no crackles. HEART: Regular rate and rhythm, normal S1 and S2 without murmur, rub or gallop. ABDOMEN: Soft, nontender, normoactive bowel sounds. No guarding, no rebound. No masses. BACK: +Well healed lumbar surgical scar. +Diffuse lumbar and paralumbar tenderness bilaterally. EXTREMITIES: Normal range of motion, no edema. No clubbing or cyanosis. No cords , erythema, or tenderness. NEUROLOGICAL: Cranial nerves II through XII grossly intact. Normal speech, normal gait. PSYCH: Normal mood, normal affect. SKIN: Warm, Dry, normal turgor, no rashes or lesions noted. <Frederick Cifuentes - Last Filed: 07/14/17 18:21> - Vital Signs Last Vital Signs Temp Pulse Resp BP Pulse Ox 97.7 F 75 16 143/67 95 07/14/17 16:48 07/14/17 16:48 07/14/17 16:48 07/14/17 16:48 07/14/17 16:48 <Emilio Ball - Last Filed: 07/14/17 19:01> ED Treatment Course - LABORATORY CBC & Chemistry Diagram: 07/14/17 18:40 07/14/17 18:40 <Emilio Ball - Last Filed: 07/14/17 19:01> Medical Decision Making - Medical Decision Making 07/14/17 18:59 Patient was recently admitted for volume overload in the setting of progressive renal failure. He was discharged 2 days ago. He now comes in after having tried to go back to work yesterday. Last night he developed lumbar back pain radiating to both hips. He has extreme pain when he tries to sit up or move or change position. When he tries to stand, the lumbar pain becomes excruciating. He tried Tylenol without relief. He cannot take nonsteroidals due to his severe renal disease. He is ALLERGIC to oxycodone. On examination, there is diffuse lumbar and paralumbar pain and tenderness. There is no point tenderness. His neurological examination of the lower extremities reveals no sensory deficits, and no motor deficits. His left leg is not quite as strong as the right, but this is limited by severe pain in his lumbar region. Impression: Chronic kidney disease Lumbar back pain Plan: Pain medication given, start with hydrocodone 0.5 mg Follow-up labs for renal failure Lumbosacral spine x-rays 07/14/17 19:[address] Aida Jean at change of shift 7 PM. <Emilio Ball - Last Filed: 07/14/17 19:01> *DC/Admit/Observation/Transfer - Attestations Scribe Attestion: 07/14/17 18:23 Documentation prepared by Frederick Cifuentes, acting as medical illustrator for Emilio Ball MD/DO. <Frederick Cifuentes - Last Filed: 07/14/17 18:21> - Attestations Physician Attestion: 07/14/17 19:01 The scribe's documentation has been prepared under my direction and personally reviewed by me in its entirety. I have confirmed that the note above accurately reflects all work, treatment, procedures, and medical decision- making performed by me. <Emilio Ball - Last Filed: 07/14/17 19:01> Diagnosis at time of Disposition: Lumbar back pain Chronic kidney disease Qualifiers: Chronic kidney disease stage: unspecified stage Qualified Code(s): N18.9 - Chronic kidney disease, unspecified - Discharge Dispostion Condition at time of disposition: Fair
[2017-07-14] MEDS ORDERED: HYDROmorphone HCL CARPU-JECT 1 MG/1 ML DISP.SYRIN IVPUSH ONE (18:24)
[2017-07-14] MEDS ORDERED: HYDROmorphone HCL CARPU-JECT 1 MG/1 ML DISP.SYRIN ONE (18:30)
[2017-07-14 18:58] LABS: EOSINOPHIL 0.5 % (0-4.5); MCH 28.5 pg (25.7-33.7); MCHC 33.4 g/dl (32.0-35.9); MEAN CELL VOLUME 85.4 fl (80-96); MEAN PLT VOLUME 7.5 fl (7.5-11.1); NEUTROPHILS 87.8 % (42.8-82.8); PLATELET COUNT 210 K/MM3 (134-434); RDW 15.8 % (11.9-15.9); WHITE BLOOD COUNT 6.7 K/mm3 (4.0-10.8)
[2017-07-14 19:07] LABS: ANION GAP 12 (8-16); CALCIUM 8.3 mg/dl (8.4-10.2); CO2 21 mmol/L (22-28); CREATININE 4.3 mg/dl (0.6-1.3); GLUCOSE,RANDOM 279 mg/dl (74-106)
--- NOTE | 2017-07-14 20:06 | PDOC ---
*Physical Exam - Vital Signs Last Vital Signs Temp Pulse Resp BP Pulse Ox 97.7 F 75 16 143/67 95 07/14/17 16:48 07/14/17 16:48 07/14/17 16:48 07/14/17 16:48 07/14/17 16:48 ED Treatment Course - LABORATORY CBC & Chemistry Diagram: 07/14/17 18:40 07/14/17 18:40 - ADDITIONAL ORDERS Additional order review: Laboratory Results 07/14/17 07/14/17 18:40 18:40 WBC 6.7 RBC 3.01 L Hgb 8.6 L Hct 25.7 L MCV 85.4 MCH 28.5 MCHC 33.4 RDW 15.8 Plt Count 210 MPV 7.5 Neutrophils % 87.8 H Lymphocytes % 5.5 L D Monocytes % 6.2 Eosinophils % 0.5 Basophils % 0.0 Sodium 134 L Potassium 4.4 Chloride 101 Carbon Dioxide 21 L Anion Gap 12 BUN 116 H* Creatinine 4.3 H Random Glucose 279 H D Calcium 8.3 L 07/14/17 18:40 RBC 3.01 L MCV 85.4 MCHC 33.4 RDW 15.8 MPV 7.5 Neutrophils % 87.8 H Lymphocytes % 5.5 L D Monocytes % 6.2 Eosinophils % 0.5 Basophils % 0.0 - Medications Given in the ED: ED Medications Discontinued Medications Generic Name Dose Route Start Last Admin Trade Name Freq PRN Reason Stop Dose Admin Hydromorphone HCl 0.5 mg 07/14/17 18:24 07/14/17 18:39 Dilaudid Injection - IVPUSH 07/14/17 18:25 0.5 mg ONCE ONE Administration Medical Decision Making - Medical Decision Making 07/14/17 20:18 Care of this patient received from Dr. Ball Lumbosacral x-rays show extensive DJD and evidence of previous L5-S1 surgical procedure; hardware appears intact No evidence of acute compression fracture Patient somnolent after dose of Dilaudid 0.5 milligrams IV 07/14/17 20:29 Case discussed with from [facility] service. Patient will be admitted under observation status for further diagnostic evaluation and treatment of his intractable lower back pain 07/14/17 21:24 Portable chest x-ray reveals no evidence of infiltrate/effusion or other acute process. Cardiomegaly present. 12-lead electrocardiogram is performed and interpreted by me. Normal sinus rhythm at 77 bpm is present. No significant difference from EKG tracing dated 07/09/70 *DC/Admit/Observation/Transfer Diagnosis at time of Disposition: Lumbar back pain, Intractable back pain Chronic kidney disease Qualifiers: Chronic kidney disease stage: unspecified stage Qualified Code(s): N18.9 - Chronic kidney disease, unspecified - Discharge Dispostion Condition at time of disposition: Fair Admit: Yes - Referrals - Patient Instructions - Post Discharge Activity
--- NOTE | 2017-07-14 22:16 | HP ---
CHIEF COMPLAINT: Back Pain PCP: Dr. Del Valle HISTORY OF PRESENT ILLNESS: This is a 71 y/o man with a past medical history of DJD, CKD Stage 4, DM. Who presents to the ED with lower back pain,B/L hip pain, radiating to left leg since Sunday night. Patient also reports difficulty ambulating secondary to back pain. Patient reports recent admission- 07/09-07/12 for CKD. Patient reports returning to work on Sunday with periods of prolonged standing which aggravated his back. Patient reports going to a Chiropractor today with no relief. Patient denies fall or trauma. Patient denies fever, cough, chills, SOB, dizziness, CP, AP, N/V/D, dysuria. ER course was notable for: (1) LSP Xray- No acute fx or dislocation (2) CKD- BUN 116, Cr 4.3 (3) Recent Travel: None PAST MEDICAL HISTORY: CAD HTN CKD Stage 4 HLD DM PAD PAST SURGICAL HISTORY: Triple Bypass Angiography Social History: Smoking: None Alcohol: None Drugs: None Lives with spouse, employed [employer] Family History: Non-contributory Allergies acetaminophen [From Percocet] Adverse Reaction (Intermediate, Verified 07/14/17 16:48) nausea oxycodone HCl [From Percocet] Adverse Reaction (Intermediate, Verified 07/14/17 16:48) nausea ticagrelor [From BRILINTA] Adverse Reaction (Intermediate, Verified 07/14/17 16: 48) HOME MEDICATIONS: Home Medications Medication Instructions Recorded Cholecalciferol (Vitamin D3) 1,000 unit PO DAILY tablet 09/02/12 [Vitamin D3] Clopidogrel Bisulfate [Clopidogrel] 75 mg PO HS #90 tablet 01/10/16 Tamsulosin HCl 0.8 mg PO HS 05/19/16 Aspirin [ASA -] 81 mg PO DAILY 06/11/17 Carvedilol 12.5 mg PO BID 06/11/17 Famotidine 20 mg PO ASDIR 06/11/17 Ferrous Sulfate [Feosol] 325 mg PO DAILY ud 07/12/17 Furosemide [Lasix -] 40 mg PO BID #60 tablet 07/12/17 Docusate Sodium [Colace -] 100 mg PO TID PRN 07/14/17 Insulin Glargine,Hum.rec.anlog 15 units SQ HS 07/14/17 [Lantus Solostar PEN (NF)] REVIEW OF SYSTEMS CONSTITUTIONAL: Absent: fever, chills, diaphoresis, generalized weakness, malaise, loss of appetite, weight change HEENT: Absent: rhinorrhea, nasal congestion, throat pain, throat swelling, difficulty swallowing, mouth swelling, ear pain, eye pain, visual changes CARDIOVASCULAR: Absent: chest pain, syncope, palpitations, irregular heart rate, lightheadedness , peripheral edema RESPIRATORY: Absent: cough, shortness of breath, dyspnea with exertion, orthopnea, wheezing, stridor, hemoptysis GASTROINTESTINAL: Absent: abdominal pain, abdominal distension, nausea, vomiting, diarrhea, constipation, melena, hematochezia GENITOURINARY: Absent: dysuria, frequency, urgency, hesitancy, hematuria, flank pain, genital pain MUSCULOSKELETAL: back pain, left leg pain Absent: myalgia, arthralgia, joint swelling, neck pain SKIN: Absent: rash, itching, pallor HEMATOLOGIC/IMMUNOLOGIC: Absent: easy bleeding, easy bruising, lymphadenopathy, frequent infections ENDOCRINE: Absent: unexplained weight gain, unexplained weight loss, heat intolerance, cold intolerance NEUROLOGIC: Absent: headache, focal weakness or paresthesias, dizziness, unsteady gait, seizure, mental status changes, bladder or bowel incontinence PSYCHIATRIC: Absent: anxiety, depression, suicidal or homicidal ideation, hallucinations. PHYSICAL EXAMINATION Vital Signs - 24 hr 07/14/17 07/14/17 16:48 22:02 Temperature 97.7 F Pulse Rate 75 Pulse Rate [ 75 Left Radial] Respiratory 16 18 Rate Blood Pressure 143/67 Blood Pressure 172/72 [Left Arm] O2 Sat by Pulse 95 99 Oximetry (%) GENERAL: Awake, alert, and fully oriented, in no acute distress. HEAD: Normal with no signs of trauma. EYES: Pupils equal, round and reactive to light, extraocular movements intact, sclera anicteric, conjunctiva clear. No lid lag. EARS, NOSE, THROAT: Ears normal, nares patent, oropharynx clear without exudates. Dry mucous membranes. NECK: Normal range of motion, supple without lymphadenopathy, JVD, or masses. LUNGS: Breath sounds equal, clear to auscultation bilaterally. No wheezes, and no crackles. No accessory muscle use. HEART: Regular rate and rhythm, normal S1 and S2 without murmur, rub or gallop. ABDOMEN: Obese, soft, nontender, not distended, normoactive bowel sounds, no guarding, no rebound, no masses. No hepatomegaly or splenomegaly. MUSCULOSKELETAL: Normal range of motion at all joints. No bony deformities. No CVA tenderness +tenderness to lower lumbar on palpation. +SLR test UPPER EXTREMITIES: 2+ pulses, warm, well-perfused. No cyanosis. No clubbing. No peripheral edema. LOWER EXTREMITIES: 2+ pulses, warm, well-perfused. No calf tenderness. +2 pitting L>R peripheral edema. NEUROLOGICAL: Cranial nerves II-XII intact. Normal speech. Gait not observed. PSYCHIATRIC: Cooperative. Good eye contact. Appropriate mood and affect. SKIN: Warm, dry, normal turgor, no rashes or lesions noted, normal capillary refill. Laboratory Results - last 24 hr 07/14/17 07/14/17 18:40 18:40 WBC 6.7 RBC 3.01 L Hgb 8.6 L Hct 25.7 L MCV 85.4 MCH 28.5 MCHC 33.4 RDW 15.8 Plt Count 210 MPV 7.5 Neutrophils % 87.8 H Lymphocytes % 5.5 L D Monocytes % 6.2 Eosinophils % 0.5 Basophils % 0.0 Sodium 134 L Potassium 4.4 Chloride 101 Carbon Dioxide 21 L Anion Gap 12 BUN 116 H* Creatinine 4.3 H Random Glucose 279 H D Calcium 8.3 L ASSESSMENT/PLAN: This is a 71 y/o man with a PMHx of: HTN, HLD, CAD s/p stent (PCI), CKD Stage 4 , Anemia, GI Bleed. Placed in Observation for Intractable Back Pain, Acute on Chronic Renal Failure. Plan: 1. Intractable Back Pain - Likely secondary to overuse vs DJD vs Infection vs Malignancy - s/p Laminectomy 12 yrs ago for disc herniation - LSP Xray- no fx, no cord compression - Dilaudid given in ED - Pain Mgmt- Lidoderm Patch, Tylenol - Consider Dilaudid only for periods of breakthrough pain, no NSAIDs secondary to CKD - PT for gait strengthening and conditioning - Monitor vitals - f/u with ortho in outpatient - Repeat CBC, BMP in am 2. Acute on Chronic Renal Failure - CKD Stage 4 hx - BUN 116 above baseline - Cr 4.3 above baseline - Appreciate Nephrology Consult - Avoid Nephrotoxic drugs - Monitor renal function 3. Anemia - Secondary to CKD - Hgb 8.6 at baseline - Will transfuse if Hgb < 7.0 - Continue Ferrous Sulfate - Monitor CBC 4. HTN - Controlled - Monitor BP - Continue Carvedilol 5. CAD - s/p PCI stent - Continue Plavix, Carvedilol - EKG reviewed 6. HLD - Continue Lipitor 7. Diabetes Mellitus - Not Controlled - Serum glucose- 279 - BGMs - ISS with meals 8. FEN - Replete lytes prn - Low Na, Diabetic Diet 9. DVT Prophylaxis - SCDs - Consider ACs if LOS > 48 hrs Code Status: Full Code Dispo: Observation Problem List - Problem (1) Intractable back pain Assessment/Plan: - Likely secondary to overuse - On exam: TN to palpation, +SLR - LSP Xray- Code(s): M54.9 - DORSALGIA, UNSPECIFIED (2) CKD (chronic kidney disease) Code(s): N18.9 - CHRONIC KIDNEY DISEASE, UNSPECIFIED Qualifiers: Chronic kidney disease stage: unspecified stage Qualified Code(s): N18.9 - Chronic kidney disease, unspecified (3) Acute on chronic renal failure Code(s): N17.9 - ACUTE KIDNEY FAILURE, UNSPECIFIED; N18.9 - CHRONIC KIDNEY DISEASE, UNSPECIFIED (4) Diabetes Code(s): E11.9 - TYPE 2 DIABETES MELLITUS WITHOUT COMPLICATIONS Qualifiers: (5) Hx of CABG Code(s): Z95.1 - PRESENCE OF AORTOCORONARY BYPASS GRAFT (6) PAD (peripheral artery disease) Code(s): I73.9 - PERIPHERAL VASCULAR DISEASE, UNSPECIFIED Visit type - Emergency Visit Emergency Visit: Yes ED Registration Date: 07/14/17 Care time: The patient presented to the Emergency Department on the above date and was hospitalized for further evaluation of their emergent condition. - New Patient This patient is new to me today: Yes Date on this admission: 07/14/17 - Critical Care Critical Care patient: No
[2017-07-14 23:34] VITALS: BMI 28.3
[2017-07-15] MEDS ORDERED: DOCUSATE SODIUM 100 MG CAPSULE (FP) PO PRN (00:15)
[2017-07-15] MEDS ORDERED: CLOPIDOGREL BISULFATE 75 MG TABLET (FP) PO ONE (00:21)
[2017-07-15] MEDS: INSULIN SLIDING SCALE (NOVOLOG) 1 VIAL SQ SCH ×5 (00:33→16:56)
[2017-07-15] MEDS ORDERED: INSULIN (NOVOLOG) ASPART 100 UNITS/ML 10ML VIAL ONE ×3 (00:36→16:53)
[2017-07-15] MEDS: CARVEDILOL 12.5 MG TABLET (FP) PO SCH ×3 (00:39→21:40)
[2017-07-15] MEDS: FUROSEMIDE 40 MG TABLET (FP) PO SCH ×3 (00:40→21:41)
--- NOTE | 2017-07-15 08:18 | EKG ---
Test Reason : Blood Pressure : / mmHG Vent. Rate : 077 BPM Atrial Rate : 077 BPM P-R Int : 186 ms QRS Dur : 100 ms QT Int : 430 ms P-R-T Axes : 058 -25 127 degrees QTc Int : 486 ms NORMAL SINUS RHYTHM LEFT VENTRICULAR HYPERTROPHY WITH REPOLARIZATION ABNORMALITY CANNOT RULE OUT SEPTAL INFARCT , AGE UNDETERMINED ABNORMAL ECG WHEN COMPARED WITH ECG OF 09-JUL-2017 17:14, NO SIGNIFICANT CHANGE WAS FOUND Confirmed by ALVERTO ROSALES, OMKAR ([id number]) on 07/15/2017 8:18:12 AM Referred By: EDD ROPER Confirmed By:OMKAR DEL TORO MD
[2017-07-15 09:08] LABS: BASOPHIL 0.7 % (0-2.0); EOSINOPHIL 2.4 % (0-4.5); MCHC 33.2 g/dl (32.0-35.9); MEAN CELL VOLUME 87.4 fl (80-96); NEUTROPHILS 80.8 % (42.8-82.8); RDW 16.1 % (11.9-15.9)
[2017-07-15 09:14] LABS: MEAN PLT VOLUME 7.6 fl (7.5-11.1); PLATELET COUNT 222 K/MM3 (134-434)
[2017-07-15 09:59] LABS: ANION GAP 12 (8-16); CALCIUM 8.6 mg/dl (8.4-10.2); CO2 22 mmol/L (22-28); CREATININE 4.1 mg/dl (0.6-1.3); GLUCOSE,RANDOM 116 mg/dl (74-106)
[2017-07-15] MEDS: CITALOPRAM HYDROBROMIDE 20 MG TABLET (FP) PO SCH (10:00)
[2017-07-15] MEDS: CHOLECALCIFEROL (VITAMIN D3) 1,000 UNIT TABLET (FP) PO SCH (10:00)
[2017-07-15] MEDS: FERROUS SO4 325 MG TABLET (FP) PO SCH (10:00)
[2017-07-15] MEDS: LIDOCAINE 5% TOPICAL PATCH TP SCH (10:00)
[2017-07-15] MEDS: ATORVASTATIN CA 20 MG TABLET (FP) PO SCH (10:00)
[2017-07-15] MEDS: GABAPENTIN 100 MG CAPSULE (FP) PO SCH (10:00)
[2017-07-15] MEDS: FAMOTIDINE 20 MG TABLET PO SCH (10:00)
[2017-07-15] MEDS ORDERED: oxyCODONE HCL 5 MG TABLET PO PRN (12:28)
--- NOTE | 2017-07-15 12:34 | DS ---
Physical Exam: SUBJECTIVE: Patient seen and examined. Back pain improved. OBJECTIVE: Vital Signs Period Temp Pulse Resp BP Sys/Rodriguez Pulse Ox Last 24 Hr 97.7 F-98.1 F 67-75 16-19 143-172/62-72 94-99 PHYSICAL EXAM GENERAL: The patient is awake, alert, and fully oriented, in no acute distress. HEAD: Normal with no signs of trauma. EYES: PERRL, extraocular movements intact, sclera anicteric, conjunctiva clear. ENT: Ears normal, nares patent, oropharynx clear without exudates, moist mucous membranes. NECK: Trachea midline, full range of motion, supple. LUNGS: Breath sounds equal, clear to auscultation bilaterally, no wheezes, no crackles, no accessory muscle use. HEART: Regular rate and rhythm, S1, S2 without murmur, rub or gallop. ABDOMEN: Soft, nontender, nondistended, normoactive bowel sounds, no guarding, no rebound, no hepatosplenomegaly, no masses. EXTREMITIES: 2+ pulses, warm, well-perfused, no edema. NEUROLOGICAL: Cranial nerves II through XII grossly intact. Normal speech, gait not observed. PSYCH: Normal mood, normal affect. SKIN: Warm, dry, normal turgor, no rashes or lesions noted. LABS Laboratory Results - last 24 hr 07/14/17 07/14/17 07/14/17 18:40 18:40 22:58 WBC 6.7 RBC 3.01 L Hgb 8.6 L Hct 25.7 L MCV 85.4 MCH 28.5 MCHC 33.4 RDW 15.8 Plt Count 210 MPV 7.5 Neutrophils % 87.8 H Lymphocytes % 5.5 L D Monocytes % 6.2 Eosinophils % 0.5 Basophils % 0.0 Sodium 134 L Potassium 4.4 Chloride 101 Carbon Dioxide 21 L Anion Gap 12 BUN 116 H* Creatinine 4.3 H POC Glucometer 219 Random Glucose 279 H D Calcium 8.3 L 07/15/17 07/15/17 07/15/17 06:30 06:30 06:56 WBC 6.0 RBC 2.91 L Hgb 8.4 L Hct 25.4 L MCV 87.4 MCH 29.0 MCHC 33.2 RDW 16.1 H Plt Count 222 MPV 7.6 Neutrophils % 80.8 Lymphocytes % 7.1 L D Monocytes % 9.0 Eosinophils % 2.4 D Basophils % 0.7 D Sodium 142 Potassium 4.0 Chloride 108 H Carbon Dioxide 22 Anion Gap 12 BUN 92 H D Creatinine 4.1 H POC Glucometer 123 Random Glucose 116 H D Calcium 8.6 07/15/17 11:30 WBC RBC Hgb Hct MCV MCH MCHC RDW Plt Count MPV Neutrophils % Lymphocytes % Monocytes % Eosinophils % Basophils % Sodium Potassium Chloride Carbon Dioxide Anion Gap BUN Creatinine POC Glucometer 303 Random Glucose Calcium HOSPITAL COURSE: This is a 71 year old male with a history of DJD, CKD Stage 4 s /p recent admission for volume overload, and IDDM who presented to the ED on with low back pain after standing all day at work. He did not have lower extremity weakness, numbness, or change in bladder/bowel function. He was placed in observation. Course was notable for: 1) Anemia and CKD, baseline 2) LS spine xray: degenerative changes 3) Improved with Lidocaine patch, Tramadol, and diazepam 4) Ambulatory without difficulty Will dc with PCP followup, suggestion for PT, and Tramadol/lidocaine rx. Return precautions reviewed. Date of Admission:07/14/17 Date of Discharge: 07/15/17 Discharge Summary Reason For Visit: INTRACTABLE BACK PAIN,CKD & LUMBAR BACK PAIN Current Active Problems CKD (chronic kidney disease) (Acute) Intractable back pain (Acute) Lumbar back pain (Acute) Condition: Fair - Instructions - Home Medications Comprehensive Discharge Medication List: Ambulatory Orders Cholecalciferol (Vitamin D3) [Vitamin D3] 1,000 unit PO DAILY tablet 09/02/12 Clopidogrel Bisulfate [Clopidogrel] 75 mg PO HS #90 tablet 01/10/16 Tamsulosin HCl 0.8 mg PO HS 05/19/16 Aspirin [ASA -] 81 mg PO DAILY 06/11/17 Carvedilol 12.5 mg PO BID 06/11/17 Famotidine 20 mg PO ASDIR 06/11/17 Ferrous Sulfate [Feosol] 325 mg PO DAILY ud 07/12/17 Furosemide [Lasix -] 40 mg PO BID #60 tablet 07/12/17 Docusate Sodium [Colace -] 100 mg PO TID PRN 07/14/17 Insulin Glargine,Hum.rec.anlog [Lantus Solostar PEN (NF)] 15 units SQ HS
[2017-07-15] MEDS ORDERED: traMADol HCL 50 MG TABLET PO PRN (12:38)
[2017-07-15] MEDS ORDERED: diazePAM 2 MG TABLET PO ONE (13:48)
[2017-07-15] MEDS ORDERED: LIDOCAINE PATCH REMOVAL MC SCH (22:00)
[2017-07-15] MEDS ORDERED: TAMSULOSIN HCL 0.4 MG CAP.ER.24H (FP) PO SCH (22:00)
[2017-07-15] MEDS ORDERED: CLOPIDOGREL BISULFATE 75 MG TABLET (FP) PO SCH (22:00)
[2017-07-16] MEDS: INSULIN SLIDING SCALE (NOVOLOG) 1 VIAL SQ SCH ×3 (06:08→17:20)
[2017-07-16] MEDS ORDERED: INSULIN (NOVOLOG) ASPART 100 UNITS/ML 10ML VIAL ONE ×3 (06:35→17:10)
[2017-07-16] MEDS: FUROSEMIDE 40 MG TABLET (FP) PO SCH (10:36)
[2017-07-16] MEDS: FERROUS SO4 325 MG TABLET (FP) PO SCH (10:36)
[2017-07-16] MEDS: ATORVASTATIN CA 20 MG TABLET (FP) PO SCH (10:36)
[2017-07-16] MEDS: FAMOTIDINE 20 MG TABLET PO SCH (10:36)
[2017-07-16] MEDS: CHOLECALCIFEROL (VITAMIN D3) 1,000 UNIT TABLET (FP) PO SCH (10:36)
[2017-07-16] MEDS: CARVEDILOL 12.5 MG TABLET (FP) PO SCH (10:36)
[2017-07-16] MEDS: GABAPENTIN 100 MG CAPSULE (FP) PO SCH (10:36)
[2017-07-16] MEDS: CITALOPRAM HYDROBROMIDE 20 MG TABLET (FP) PO SCH (10:36)
[2017-07-16] MEDS: LIDOCAINE 5% TOPICAL PATCH TP SCH (10:37)
[2017-07-16 14:33] VITALS: BP 147/58; PULSE 59; TEMP 97.3
[2017-07-16] MEDS ORDERED: PT OWN MED DRAWER 7, Y5N ONE (18:54)
== END 2017-07-16 17:40 | disposition home or self-care (01) ==
LOC: FER 16:47 → FM/S 21:50
PROVIDERS: ADMIT Internal Medicine; ATTEND Nurse Practitioner Family
PROC: 3E033NZ Introduction of Analgesics, Hypnotics, Sedatives into Peripheral Vein, Percutaneous Approach (ICD-10-PCS; principal; 2017-07-13)
DX: M54.5 Low back pain (principal); I25.10 Atherosclerotic heart disease of native coronary artery without angina pectoris; I13.10 Hypertensive heart and chronic kidney disease without heart failure, with stage 1 through stage 4 chronic kidney disease, or unspecified chronic kidney disease; N18.4 Chronic kidney disease, stage 4 (severe); Z95.1 Presence of aortocoronary bypass graft; Z95.5 Presence of coronary angioplasty implant and graft; E11.9 Type 2 diabetes mellitus without complications; Z79.4 Long term (current) use of insulin; I73.9 Peripheral vascular disease, unspecified; M25.551 Pain in right hip; M25.552 Pain in left hip
CPT/HCPCS: 36415; 71010-TC; 72100-TC; 80048; 85025; 93005; 96374; 99283-25; G0378

== ENCOUNTER 2017-07-18 15:29 | Inpatient (IN) | payer OTHER, MEDICARE ==
--- NOTE | 2017-07-18 16:19 | PDOC ---
History of Present Illness - General History Source: Patient (Presents with 5 days of urinary urgency, urinary retention, constipation, ESRD and abdominal pain.) Exam Limitations: No Limitations - History of Present Illness Severity: moderate Associated Symptoms: reports: weakness <Frederick Cfiuentes - Last Filed: 07/18/17 16:19> <Davon Christie - Last Filed: 07/27/17 13:00> - General Chief Complaint: Constipation Stated Complaint: CONSTIPATION, BACK PAIN Time Seen by Provider: 07/18/17 15:43 Past History <Frederick Cifuentes - Last Filed: 07/18/17 16:19> - Past Medical History Anemia: Yes (taking iron) Asthma: No Cancer: No Cardiac Disorders: Yes (CAD, CABG, stents) CVA: No COPD: No CHF: No DVT: No Dementia: No Diabetes: Yes (x41 yrs) GI Disorders: Yes (GERD, G-I bleed) Disorders: No HTN: Yes Hypercholesterolemia: Yes Liver Disease: No Seizures: No Thyroid Disease: No - Surgical History Abdominal Surgery: Yes (Left Inguinal Hernia Repair) Appendectomy: No Cardiac Surgery: Yes (Bypass Surgery 18 yrs ago, Followed by Stents placement x2 ) Cholecystectomy: No Lung Surgery: No Neurologic Surgery: No Orthopedic Surgery: Yes (Laminectomy) - Immunization History Immunization Up to Date: Yes - Suicide/Smoking/Psychosocial Hx Smoking History: Never smoked Have you smoked in the past 12 months: No If you are a former smoker, when did you quit?: 30YRS Hx Alcohol Use: No Drug/Substance Use Hx: No Substance Use Type: None Hx Substance Use Treatment: No <Davon Christie - Last Filed: 07/27/17 13:00> - Past Medical History Allergies/Adverse Reactions: Allergies Allergy/AdvReac Type Severity Reaction Status Date / Time tramadol Allergy Verified 07/23/17 07:06 acetaminophen [From Percocet] AdvReac Intermediate nausea Verified 07/23/17 07: 06 oxycodone HCl [From Percocet] AdvReac Intermediate nausea Verified 07/23/17 07: 06 ticagrelor [From BRILINTA] AdvReac Intermediate Verified 07/23/17 07:06 Home Medications: Ambulatory Orders Cholecalciferol (Vitamin D3) [Vitamin D3] 1,000 unit PO DAILY tablet 09/02/12 Clopidogrel Bisulfate [Clopidogrel] 75 mg PO HS #90 tablet 01/10/16 Carvedilol 12.5 mg PO BID 06/11/17 Ferrous Sulfate [Feosol] 325 mg PO DAILY ud 07/12/17 Docusate Sodium [Colace -] 300 mg PO HS 07/14/17 Insulin Glargine,Hum.rec.anlog [Lantus Solostar PEN -] 15 units SQ HS 07/14/17 Lidocaine 5% Patch [Lidoderm -] 1 patch TP DAILY #7 patch 07/15/17 Nifedipine ER [Procardia XL -] 30 mg PO DAILY tab.er.24 07/22/17 Polyethylene Glycol 3350 [Miralax 119 gm Btl -] 17 gm PO DAILY bottle 07/22/17 Acetaminophen [Non-Aspirin Pain Relief] 650 mg PO Q6H PRN 07/23/17 Furosemide [Lasix -] 40 mg PO BID 07/23/17 Insulin Sliding Scale [Novolog Vial Sliding Scale -] 1 vial SQ TIDAC PRN Simvastatin 40 mg PO HS 07/23/17 Pantoprazole Sodium [Protonix -] 40 mg PO DAILY #30 tablet.ec 07/25/17 Sucralfate [Carafate -] 1 gm PO BID #60 tablet 07/25/17 Tamsulosin HCl [Flomax -] 0.4 mg PO HS cap.er.24h 07/25/17 Review of Systems - Review of Systems Able to Perform ROS?: Yes Constitutional: Yes: Weakness HEENTM: Yes: Blurred Vision, Double Vision ABD/GI: Yes: Other (Abdominal pain. ) : Yes: Urgency, Other (Urinary Retention) Musculoskeletal: Yes: Back Pain All Other Systems: Reviewed and Negative <Frederick Cifuentes - Last Filed: 07/18/17 16:19> *Physical Exam - Physical Exam Gastrointestinal/Abdominal: positive: Distended <Frederick Cifuentes - Last Filed: 07/18/17 16:19> - Physical Exam General Appearance: Yes: Moderate Distress, Thin HEENT: positive: SRINIVASAN Neck: positive: Trachea midline Respiratory/Chest: positive: Decreased Breath Sounds Cardiovascular: positive: S1, S2 Gastrointestinal/Abdominal: positive: Distended (Distended abdomen, mainly in the suprapubic area) <Moucha,Remus S - Last Filed: 07/27/17 13:00> ED Treatment Course - LABORATORY CBC & Chemistry Diagram: 07/21/17 07:40 07/22/17 06:00 <Davon Christie - Last Filed: 07/27/17 13:00> Medical Decision Making - Medical Decision Making 07/18/17 16:25 urinary catheter inserted, 1.3 liters of urine released. 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
[2017-07-18] MEDS ORDERED: DOCUSATE SODIUM 100 MG CAPSULE (FP) PO ONE ×2 (16:38→17:22)
[2017-07-18 16:39] VITALS: BMI 28.2
[2017-07-18 16:53] LABS: PH,URINE 5.5 (4.5-8); URINE APPEARANCE Clear; URINE BILIRUBIN Negative (NEGATIVE); URINE BLOOD 1+ (NEGATIVE); URINE COLOR YELLOW; URINE GLUCOSE (UA) 1+ (NEGATIVE); URINE KETONE Negative (NEGATIVE); URINE NITRITE Negative (NEGATIVE); URINE PROTEIN 2+ (NEGATIVE); URINE UROBILINOGEN 0.2 (0.2-1.0)
[2017-07-18 18:07] LABS: URINE BACTERIA FEW /hpf (NEGATIVE); URINE WBC 0-1 (0-2)
--- NOTE | 2017-07-18 19:13 | PDOC ---
*Physical Exam - Vital Signs Last Vital Signs Temp Pulse Resp BP Pulse Ox 98.5 F 63 20 153/73 98 07/18/17 15:36 07/18/17 15:36 07/18/17 15:36 07/18/17 15:36 07/18/17 15:36 ED Treatment Course - LABORATORY CBC & Chemistry Diagram: 07/18/17 19:21 07/18/17 19:21 - ADDITIONAL ORDERS Additional order review: Laboratory Results 07/18/17 16:30 Urine Color Yellow Urine Appearance Clear Urine pH 5.5 Ur Specific [place] 1.015 Urine Protein 2+ H Urine Glucose (UA) 1+ H Urine Ketones Negative Urine Blood 1+ H Urine Nitrite Negative Urine Bilirubin Negative Urine Urobilinogen 0.2 Ur Leukocyte Esterase Negative Urine RBC 2-5 Urine WBC 0-1 Urine Bacteria Few - Medications Given in the ED: ED Medications Discontinued Medications Generic Name Dose Route Start Last Admin Trade Name Freq PRN Reason Stop Dose Admin Docusate Sodium 200 mg 07/18/17 16:38 07/18/17 17:24 Colace - PO 07/18/17 16:39 200 mg ONCE ONE Administration Progress Note - Progress Note Progress Note: This is an elderly male with multiple chronic medical problems including renal failure, constipation, urinary retention who came in evening for urinary retention and constipation. Patient had a workup and was discharged shortly after I arrived in the emergency room. However prior to discharge patient vomited and his was concerned that she would be unable to manage him at home if he continued to vomit. Patient will be admitted to an observation bed overnight. I will also discuss with the admitting doctor placement for this patient as he does not appear to be able to be at home anymore and his does not appear to be able to take care of him at home anymore. As patient was admitted for observation a few days ago and it took him 2 days to leave the facility after he was discharged. 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 Qualified Code(s): E11.21 - Type 2 diabetes mellitus with diabetic nephropathy Constipation Qualifiers: Constipation type: unspecified constipation type Qualified Code(s): K59.00 - Constipation, unspecified - Discharge Dispostion Condition at time of disposition: Improved Admit: Yes - Referrals Referrals: Bernardo Del Valle MD [Primary Care Provider] - Steven Elizabeth MD [Staff Physician] - - Patient Instructions Printed Discharge Instructions: Constipation, DI for Urinary Retention in Men Additional Instructions: Follow up with your doctor , A Ivon and your Urologist Take Miralax as directed everyday to treat your constipation. - Post Discharge Activity
[2017-07-18 19:49] LABS: BASO % 0.3 % (0-2.0); EOS % 0.9 % (0-4.5); HEMATOCRIT 27.6 % (35.4-49); HEMOGLOBIN 9.1 GM/dl (11.7-16.9); LYMPH % 6.2 % (8-40); MCH 28.4 pg (25.7-33.7); MEAN CELL VOLUME 86.1 fl (80-96); MONO % 8.1 % (3.8-10.2); NEUT % 84.5 % (42.8-82.8); PLATELET COUNT 255 K/MM3 (134-434); RBC 3.21 M/mm3 (4.00-5.60); RDW 15.3 % (11.9-15.9); WHITE BLOOD COUNT 6.6 K/mm3 (4.0-10.8)
[2017-07-18 20:03] LABS: ALBUMIN 3.6 g/dl (3.5-5.0); ALK PHOS 88 U/L (32-92); ANION GAP 11 (8-16); BILIRUBIN,TOTAL 0.6 mg/dl (0.2-1.0); BLOOD UREA NITROGEN 102 mg/dl (7-18); CALCIUM 8.6 mg/dl (8.4-10.2); CHLORIDE 100 mmol/L (98-107); CO2 21 mmol/L (22-28); CREATININE 3.9 mg/dl (0.6-1.3); GLUCOSE,RANDOM 245 mg/dl (74-106); POTASSIUM 4.1 mmol/L (3.5-5.1); SGOT/AST 24 U/L (10-42); SGPT/ALT 20 U/L (10-40); SODIUM 132 mmol/L (136-145); TOT PROT 6.6 g/dl (6.4-8.3)
[2017-07-18 20:41] LABS: TROPONIN I (DFP) 1.22 ng/ml (0.03-0.50)
--- NOTE | 2017-07-18 23:56 | HP ---
Admitting History and Physical - Primary Care Physician PCP: Bernardo Del Valle - Admission Chief Complaint: Constipation, Vomiting History of Present Illness: This is a 71 y/o man with a significant past medical history of CAD (stent x2, CABG), PAD, HTN, Hypercholesterolermia, CKD Stage 4 ( no HD), Urinary Retention , Chronic Back Pain(s/p laminectomy, fusions), Constipation, 3 hospital admissions 06/11-06/15 Anemia, CD, 07/09-07/12 ARF,SOB, 07/14-07/16 Intractable Lumbar Pain, CKD. Who presents to the ED for urinary retention and constipation. Patient was seen and treated in the ED, d/c, patient had an episode of vomiting, and per the ED record, the patient's , did not feel she would be able to care for him at home in his current condition. During further workup, patient was found to have an elevated Troponin I 1.07. Patient denies chest pain, palpitations or SOB on exam. Will admit the patient to Telemetry, for Elevated Troponin, CKD, Urinary retention and Constipation, for further evaluation of their emergent condition History Source: Patient, Medical Record Limitations to Obtaining History: No Limitations - Past Medical History Cardiovascular: Yes: CAD, CHF, HTN, Hyperlipdemia, [place] Gastrointestinal: Yes: GI Bleed Renal/: Yes: Renal Inusuff, Other (Urinary Retention) Heme/Onc: Yes: Anemia Endocrine: Yes: Diabetes Mellitus - Past Surgical History Past Surgical History: Yes: Bypass (Lower extremity), CABG, Hernia Repair, Stent (PCI) - Smoking History Smoking history: Former smoker Have you smoked in the past 12 months: No If you are a former smoker, when did you quit?: 30YRS - Alcohol/Substance Use Hx Alcohol Use: No History of Substance Use: reports: None - Social History Usual Living Arrangement: Yes: With Spouse ADL: Family Assistance History of Recent Travel: No Home Medications - Allergies Allergies/Adverse Reactions: Allergies Allergy/AdvReac Type Severity Reaction Status Date / Time tramadol Allergy Verified 07/18/17 19:54 acetaminophen [From Percocet] AdvReac Intermediate nausea Verified 07/14/17 16: 48 oxycodone HCl [From Percocet] AdvReac Intermediate nausea Verified 07/14/17 16: 48 ticagrelor [From BRILINTA] AdvReac Intermediate Verified 07/14/17 16:48 - Home Medications Home Medications: Ambulatory Orders Cholecalciferol (Vitamin D3) [Vitamin D3] 1,000 unit PO DAILY tablet 09/02/12 Clopidogrel Bisulfate [Clopidogrel] 75 mg PO HS #90 tablet 01/10/16 Tamsulosin HCl 0.8 mg PO HS 05/19/16 Aspirin [ASA -] 81 mg PO DAILY 06/11/17 Carvedilol 12.5 mg PO BID 06/11/17 Famotidine 20 mg PO ASDIR 06/11/17 Ferrous Sulfate [Feosol] 325 mg PO DAILY ud 07/12/17 Furosemide [Lasix -] 40 mg PO BID #60 tablet 07/12/17 Docusate Sodium [Colace -] 100 mg PO TID PRN 07/14/17 Insulin Glargine,Hum.rec.anlog [Lantus Solostar PEN -] 15 units SQ HS 07/14/17 Insulin Sliding Scale [Novolog Vial Sliding Scale -] 1 vial SQ TIDAC units 05/22 Lidocaine 5% Patch [Lidoderm Patch -] 1 patch TP DAILY #7 patch 07/15/17 Family Disease History - Family Disease History Family Disease History: [place]: Mother, Sister Review of Systems - Review of Systems Constitutional: reports: No Symptoms Eyes: reports: No Symptoms HENT: reports: No Symptoms Neck: reports: No Symptoms Cardiovascular: reports: No Symptoms Respiratory: reports: No Symptoms Gastrointestinal: reports: Bloating, Constipation, Vomiting Genitourinary: reports: Other (urinary retention) Breasts: reports: No Symptoms Reported Musculoskeletal: reports: Back Pain, Decreased ROM Neurological: reports: Unsteady Gait Endocrine: reports: No Symptoms Hematology/Lymphatic: reports: No Symptoms Psychiatric: reports: No Symptoms Physical Examination Vital Signs: Vital Signs Temperature 98.5 F 07/18/17 15:36 Pulse Rate 63 07/18/17 15:36 Respiratory Rate 14 07/18/17 23:37 Blood Pressure 153/73 07/18/17 15:36 O2 Sat by Pulse Oximetry (%) 98 07/18/17 15:36 Constitutional: Yes: Well Nourished, No Distress, Obese Eyes: Yes: WNL, Conjunctiva Clear, EOM Intact, PERRL HENT: Yes: WNL, Atraumatic, Normocephalic Neck: Yes: WNL, Supple, Trachea Midline Cardiovascular: Yes: WNL, Regular Rate and Rhythm, Murmur (grade 1), S1, S2 Respiratory: Yes: WNL, Regular, CTA Bilaterally Gastrointestinal: Yes: Normal Bowel Sounds, Soft, Abdomen, Obese ...Rectal Exam: Yes: Deferred Renal/: Yes: Chen Present (with yellow urine in leg bag) Breast(s): Yes: WNL Musculoskeletal: Yes: Back Pain Extremities: Yes: WNL Edema: No Peripheral Pulses WNL: Yes Integumentary: Yes: Venous Stasis Changes (b/l legs) Neurological: Yes: WNL, Alert, Oriented, Cran Nerves II-XII Intact, Other (gait not observed) ...Motor Strength: WNL Psychiatric: Yes: WNL, Alert, Oriented Labs: CBC, BMP 07/18/17 19:21 07/18/17 19:21 Laboratory Results - last 24 hr 07/18/17 07/18/17 07/18/17 16:30 19:21 19:21 WBC 6.6 RBC 3.21 L Hgb 9.1 L Hct 27.6 L MCV 86.1 MCH 28.4 MCHC 33.0 RDW 15.3 Plt Count 255 MPV 7.0 L Neutrophils % 84.5 H Lymphocytes % 6.2 L Monocytes % 8.1 Eosinophils % 0.9 Basophils % 0.3 Sodium 132 L Potassium 4.1 Chloride 100 Carbon Dioxide 21 L Anion Gap 11 BUN 102 H Creatinine 3.9 H Creat Clearance w eGFR 15.32 POC Glucometer Random Glucose 245 H D Calcium 8.6 Phosphorus Magnesium Total Bilirubin 0.6 D AST 24 ALT 20 D Alkaline Phosphatase 88 Creatine Kinase Creatine Kinase Index CK-MB (CK-2) Troponin I B-Natriuretic Peptide Total Protein 6.6 Albumin 3.6 Urine Color Yellow Urine Appearance Clear Urine pH 5.5 Ur Specific [place] 1.015 Urine Protein 2+ H Urine Glucose (UA) 1+ H Urine Ketones Negative Urine Blood 1+ H Urine Nitrite Negative Urine Bilirubin Negative Urine Urobilinogen 0.2 Ur Leukocyte Esterase Negative Urine RBC 2-5 Urine WBC 0-1 Urine Bacteria Few 07/18/17 19:21 WBC RBC Hgb Hct MCV MCH MCHC RDW Plt Count MPV Neutrophils % Lymphocytes % Monocytes % Eosinophils % Basophils % Sodium Potassium Chloride Carbon Dioxide Anion Gap BUN Creatinine Creat Clearance w eGFR POC Glucometer Random Glucose Calcium Phosphorus Magnesium Total Bilirubin AST ALT Alkaline Phosphatase Creatine Kinase 237 Creatine Kinase Index 3.4 CK-MB (CK-2) 8.1 H Troponin I 1.22 H* B-Natriuretic Peptide Total Protein Albumin Urine Color Urine Appearance Urine pH Ur Specific [place] Urine Protein Urine Glucose (UA) Urine Ketones Urine Blood Urine Nitrite Urine Bilirubin Urine Urobilinogen Ur Leukocyte Esterase Urine RBC Urine WBC Urine Bacteria Intake & Output 07/16/17 07/17/17 07/18/17 07/19/17 23:59 23:59 23:59 23:59 Output Total 1275 Balance -1275 Weight 77 kg 77 kg Imaging - Results Chest X-ray: Report Reviewed, Image Reviewed EKG: Image Reviewed Problem List - Problems (1) Elevated troponin I level Code(s): R74.8 - ABNORMAL LEVELS OF OTHER SERUM ENZYMES (2) CAD (coronary artery disease) Code(s): I25.10 - ATHSCL HEART DISEASE OF [place] CORONARY ARTERY W/O ANG PCTRS Qualifiers: Coronary Disease-Associated Artery/Lesion type: [place] artery [place] vs. transplanted heart: [place] heart Associated angina: without angina Qualified Code(s): I25.10 - Atherosclerotic heart disease of [place] coronary artery without angina pectoris (3) HTN (hypertension) Code(s): I10 - ESSENTIAL (PRIMARY) HYPERTENSION Qualifiers: Hypertension type: essential hypertension Qualified Code(s): I10 - Essential (primary) hypertension (4) CKD (chronic kidney disease) Code(s): N18.9 - CHRONIC KIDNEY DISEASE, UNSPECIFIED Qualifiers: Chronic kidney disease stage: unspecified stage Qualified Code(s): N18.9 - Chronic kidney disease, unspecified (5) Urinary retention Code(s): R33.9 - RETENTION OF URINE, UNSPECIFIED (6) Constipation Code(s): K59.00 - CONSTIPATION, UNSPECIFIED Qualifiers: Constipation type: unspecified constipation type Qualified Code(s): K59.00 - Constipation, unspecified (7) Hypercholesterolemia Code(s): E78.00 - PURE HYPERCHOLESTEROLEMIA, UNSPECIFIED (8) Diabetes Code(s): E11.9 - TYPE 2 DIABETES MELLITUS WITHOUT COMPLICATIONS Qualifiers: 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 type: type 2 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 complication status: with kidney complications 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 complication detail: with nephropathy 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 group home insulin use: unspecified [place] insulin use status Qualified Code(s): E11.21 - Type 2 diabetes mellitus with diabetic nephropathy (9) Hx of CABG Code(s): Z95.1 - PRESENCE OF AORTOCORONARY BYPASS GRAFT (10) PAD (peripheral artery disease) Code(s): I73.9 - PERIPHERAL VASCULAR DISEASE, UNSPECIFIED (11) DVT prophylaxis Code(s): CYM8474 - Assessment/Plan This is a 71 y/o man with a PMHx of: CAD (s/p stent x2, CABG), HTN, Hypercholesterolemia, CKD Stage 4, DM, PAD, Anemia, Chronic Back Pain. Admitted to Telemetry for Elevated Troponin I, CKD, Urinary Retention, Constipation. Plan: 1. Cardiology: Elevated Troponin CAD Acute/Chronic HF HTN HLD PAD - s/p stents x2 - s/p CABG - Elevated Troponin likely secondary to demand ischemia vs CKD - Serial Cardiac Enzymes, continued - EKG reviewed- non specific ST segment in Anterior leads - Appreciate Cardiology Consult - Continue Asa, Plavix, Lasix - Continue Coreg - Continue Cardiac Monitoring - Echo 07/2017- LV, Severe Pulmonary HTN, Severe TR 2. Nephrology: CKD - Cr 3.9 at baseline -Appreciate Renal Consult - Monitor BMP 3. Urology: Urinary Retention - Chen Cath with leg bag noted - Continue Flomax - Monitor INOs - UA - f/u with Urology in outpatient 4. GI: Constipation - On exam: abd soft, BS present - Continue Colace - Miralax prn 5. Endocrinology: Diabetes Mellitus - Not Controlled - BGMs - ISS - Lantus HS - HgbA1C 6. Heme: Anemia - Secondary to CKD - 9.4 at baseline - Continue Ferrous Sulfate - Will transfuse if Hgb < 7.0 7. Chronic Back Pain - Continue Lidoderm Patch 8. FEN - Fluid Restriction - Replete lytes prn - Renal, Diabetic, Low Na Diet 9. DVT Prophylaxis - Heparin SQ Code Status: Full Code Dispo: Requires Inpatient Care Visit type - Emergency Visit Emergency Visit: Yes ED Registration Date: 07/18/17 Care time: The patient presented to the Emergency Department on the above date and was hospitalized for further evaluation of their emergent condition. - New Patient This patient is new to me today: Yes Date on this admission: 07/18/17 - Critical Care Critical Care patient: No
[2017-07-19] MEDS ORDERED: DOCUSATE SODIUM 100 MG CAPSULE (FP) PO PRN (03:22)
[2017-07-19] MEDS ORDERED: CLOPIDOGREL BISULFATE 75 MG TABLET (FP) PO ONE (03:25)
[2017-07-19] MEDS: FUROSEMIDE 40 MG TABLET (FP) PO SCH ×2 (06:11→14:24)
[2017-07-19] MEDS: INSULIN SLIDING SCALE (NOVOLOG) 1 VIAL SQ SCH ×3 (06:11→17:03)
--- NOTE | 2017-07-19 07:43 | PN ---
Physical Exam: SUBJECTIVE: Patient seen and examined, resting comfortably in bed, reports lower back pain, denies any chest pain or shortness of breath. OBJECTIVE: patient is a 71 y/o male with a past medical history of CAD (stent x 2, cabag), hypertension, lower back pain (s/p laminictomy and fusions), and hernia repair. Patient was admitted from the emergency department for elevated troponins. Vital Signs Period Temp Pulse Resp BP Sys/Rodriguez Pulse Ox Last 24 Hr 97.8 F-98.5 F 60-67 14-20 153-168/61-73 95-98 GENERAL: The patient is awake, alert, and fully oriented, in no acute distress. HEAD: Normal with no signs of trauma. EYES: PERRL, extraocular movements intact, sclera anicteric, conjunctiva clear. No ptosis. ENT: Ears normal, nares patent, oropharynx clear without exudates, moist mucous membranes. NECK: Trachea midline, full range of motion, supple. LUNGS: Breath sounds equal, clear to auscultation bilaterally, no wheezes, no crackles, no accessory muscle use. HEART: Regular rate and rhythm, S1, S2 without murmur, rub or gallop. ABDOMEN: Soft, nontender, nondistended, normoactive bowel sounds, no guarding, no rebound, no hepatosplenomegaly, no masses. : witt cather in place, clear yellow urine draining. EXTREMITIES: 2+ pulses, warm, well-perfused, no edema. NEUROLOGICAL: Cranial nerves II through XII grossly intact. Normal speech, gait not observed. PSYCH: Normal mood, normal affect. SKIN: Warm, dry, normal turgor, no rashes or lesions noted Laboratory Results - last 24 hr 07/18/17 07/18/17 07/18/17 16:30 19:21 19:21 WBC 6.6 RBC 3.21 L Hgb 9.1 L Hct 27.6 L MCV 86.1 MCH 28.4 MCHC 33.0 RDW 15.3 Plt Count 255 MPV 7.0 L Neutrophils % 84.5 H Lymphocytes % 6.2 L Monocytes % 8.1 Eosinophils % 0.9 Basophils % 0.3 Sodium 132 L Potassium 4.1 Chloride 100 Carbon Dioxide 21 L Anion Gap 11 BUN 102 H Creatinine 3.9 H Creat Clearance w eGFR 15.32 POC Glucometer Random Glucose 245 H D Calcium 8.6 Total Bilirubin 0.6 D AST 24 ALT 20 D Alkaline Phosphatase 88 Creatine Kinase Creatine Kinase Index CK-MB (CK-2) Troponin I Total Protein 6.6 Albumin 3.6 Urine Color Yellow Urine Appearance Clear Urine pH 5.5 Ur Specific [place] 1.015 Urine Protein 2+ H Urine Glucose (UA) 1+ H Urine Ketones Negative Urine Blood 1+ H Urine Nitrite Negative Urine Bilirubin Negative Urine Urobilinogen 0.2 Ur Leukocyte Esterase Negative Urine RBC 2-5 Urine WBC 0-1 Urine Bacteria Few 07/18/17 07/19/17 07/19/17 19:21 02:00 05:58 WBC RBC Hgb Hct MCV MCH MCHC RDW Plt Count MPV Neutrophils % Lymphocytes % Monocytes % Eosinophils % Basophils % Sodium Potassium Chloride Carbon Dioxide Anion Gap BUN Creatinine Creat Clearance w eGFR POC Glucometer 190 Random Glucose Calcium Total Bilirubin AST ALT Alkaline Phosphatase Creatine Kinase 237 177 Creatine Kinase Index 3.4 2.4 CK-MB (CK-2) 8.1 H 4.416 H Troponin I 1.22 H* 2.74 H* D Total Protein Albumin Urine Color Urine Appearance Urine pH Ur Specific [place] Urine Protein Urine Glucose (UA) Urine Ketones Urine Blood Urine Nitrite Urine Bilirubin Urine Urobilinogen Ur Leukocyte Esterase Urine RBC Urine WBC Urine Bacteria Active Medications Generic Name Dose Route Start Last Admin Trade Name Freq PRN Reason Stop Dose Admin Aspirin 81 mg 07/19/17 10:00 Asa - PO DAILY [facility] Atorvastatin Calcium 20 mg 07/19/17 10:00 Lipitor - PO DAILY [facility] Carvedilol 12.5 mg 07/19/17 10:00 Coreg - PO BID [facility] Cholecalciferol 1,000 unit 07/19/17 10:00 Vitamin D3 - PO DAILY [facility] Citalopram Hydrobromide 20 mg 07/19/17 10:00 Celexa - PO DAILY [facility] Clopidogrel Bisulfate 75 mg 07/19/17 22:00 Plavix - PO HS [facility] Docusate Sodium 100 mg 07/19/17 03:22 Colace - PO TID PRN CONSTIPATION Ferrous Sulfate 325 mg 07/19/17 10:00 Feosol - PO DAILY [facility] Furosemide 40 mg 07/19/17 06:00 07/19/17 06:11 Lasix - PO 40 mg BIDLASIX ROSIE Administration Gabapentin 100 mg 07/19/17 10:00 Neurontin - PO DAILY ROSIE Insulin Aspart 1 vial 07/19/17 07:00 07/19/17 06:11 Novolog Vial Sliding Scale - SQ 2 units TIDAC ROSIE Administration Protocol Tamsulosin HCl 0.8 mg 07/19/17 22:00 Flomax - PO HS [facility] IMAGING chest xray: no acute pathology ASSESSMENT/PLAN: 1) cardiovascular elevated troponin - troponin 2.74, likely secondary to ischemic demand and ckd, repeat ekg nsr, lvh unchanged from prior ekg continuous cardiac monitoring, - continue plavix and asa - echo 07/22, lv, severe pulmonary hypertension, severe TR - case discussed with Dr Brothers, astronautical engineer, will evaluate patient today hypertension - b/p above goal, increase coreg, strict monitoring, b/p q4h. cad - continue plavix, lipitor and asa diastolic congestive heart failure - pt appears euvolemic on exam, continue home dose lasix 2) nephrology chronic kidney disease - creatine 3.9 unchanged from baseline of 3.7 - appreciate nephrology input, Dr Overton 3) MS chronic lower back pain - avoid nsaids, continue neurontin and lidoderm patch 4) niddm - continue home dose lantus, fingersticks achs - pending hemoglobin a1c 5) chronic urinary retention - continue witt cather and flomax, will require outpatient follow up with urology 6) heme normocytic anemia -hgb 9.1 baseline 10, secondary to anemia of chronic disease - continue iron supplements, strict monitoring, will transfuse if less than 7. f/e/n - diabetic/low sodium renal diet - replete lytes prn ppx - oob - pt - scd dispo: requires inpatient admission Visit type - Emergency Visit Emergency Visit: Yes ED Registration Date: 07/18/17 Care time: The patient presented to the Emergency Department on the above date and was hospitalized for further evaluation of their emergent condition. - New Patient This patient is new to me today: No - Critical Care Critical Care patient: No - Discharge Referral Referred to [facility] Med P.C.: No
[2017-07-19 09:21] LABS: BASO % 0.4 % (0-2.0); EOS % 2.1 % (0-4.5); HEMATOCRIT 25.4 % (35.4-49); HEMOGLOBIN 8.4 GM/dl (11.7-16.9); MCH 28.8 pg (25.7-33.7); MCHC 33.3 g/dl (32.0-35.9); MEAN CELL VOLUME 86.5 fl (80-96); MEAN PLT VOLUME 7.6 fl (7.5-11.1); MONO % 11.3 % (3.8-10.2); NEUT % 79.2 % (42.8-82.8); PLATELET COUNT 226 K/MM3 (134-434); RBC 2.94 M/mm3 (4.00-5.60); RDW 15.4 % (11.9-15.9); WHITE BLOOD COUNT 5.9 K/mm3 (4.0-10.8)
[2017-07-19 09:44] LABS: ANION GAP 9 (8-16); BLOOD UREA NITROGEN 92 mg/dl (7-18); CALCIUM 8.5 mg/dl (8.4-10.2); CHLORIDE 104 mmol/L (98-107); CO2 24 mmol/L (22-28); CREATININE 3.6 mg/dl (0.6-1.3); GLUCOSE,RANDOM 150 mg/dl (74-106); POTASSIUM 3.6 mmol/L (3.5-5.1); SODIUM 137 mmol/L (136-145)
[2017-07-19] MEDS ORDERED: PT OWN MED DRAWER 7, Y5N ONE (09:55)
[2017-07-19] MEDS: GABAPENTIN 100 MG CAPSULE (FP) PO SCH (09:58)
[2017-07-19] MEDS: ASPIRIN 81 MG CHEWABLE TABLETS PO SCH (09:59)
[2017-07-19] MEDS: ATORVASTATIN CA 20 MG TABLET (FP) PO SCH (09:59)
[2017-07-19] MEDS: CHOLECALCIFEROL (VITAMIN D3) 1,000 UNIT TABLET (FP) PO SCH (09:59)
[2017-07-19] MEDS: CARVEDILOL 25 MG TABLET (FP) PO SCH ×2 (09:59→21:21)
[2017-07-19] MEDS: FERROUS SO4 325 MG TABLET (FP) PO SCH (09:59)
[2017-07-19] MEDS: FAMOTIDINE 20 MG TABLET PO SCH ×2 (09:59→21:21)
[2017-07-19] MEDS: LIDOCAINE 5% TOPICAL PATCH TP SCH (10:00)
[2017-07-19] MEDS ORDERED: CARVEDILOL 12.5 MG TABLET (FP) PO SCH (10:00)
[2017-07-19] MEDS: CITALOPRAM HYDROBROMIDE 20 MG TABLET (FP) PO SCH (10:00)
[2017-07-19 10:14] LABS: TROPONIN I (DFP) 1.07 ng/ml (0.03-0.50)
--- NOTE | 2017-07-19 10:19 | CON.CARD ---
Consult Consult Specialty:: Cardiology Referred by:: Hospitalist Reason for Consultation:: Cardiac evaluation - History of Present Illness Chief Complaint: Elevated troponin, admitted with urinary retention and back pain History of Present Illness: Patient is a 71 year old male who was seen in the beginning of the month at [facility], underlying history of CAD, CABG, angina pectoris, [place] ( followed by Dr. Ángel Murguia of [facility]), history of PCI/stents, hypertension, hypercholesterolemia, diabetes mellitus (Insulin requiring), PAD post bypass surgery, anemia and CKD (not on HD). He presents to [facility] with urinary retention and constipation. He complains of back pain and body ache. He denies chest pain, shortness of breath or palpitations. He denies paroxysmal nocturnal dyspnea or orthopnea. He denies fever or chills. Patient had an episode of nausea and vomiting. Denies diarrhea or abdominal pain. Denies headache or lightheadedness. Blood work revealed elevation of troponin to 2.74 now reduced to 1.07. Cardiology consultation was called for further evaluation. - History Source History Provided By: Patient, Medical Record Limitations to Obtaining History: No Limitations - Past Medical History Cardio/Vascular: Yes: CAD, CHF, HTN, Hyperlipdemia, [place] Gastrointestinal: Yes: GI Bleed Renal/: Yes: Renal Inusuff Heme/Onc: Yes: Anemia Endocrine: Yes: Diabetes Mellitus - Past Surgical History Past Surgical History: Yes: Bypass (Lower extremity), CABG, Hernia Repair, Stent (PCI) - Alcohol/Substance Use Hx Alcohol Use: No History of Substance Use: reports: None - Smoking History Smoking history: Never smoked Have you smoked in the past 12 months: No If you are a former smoker, when did you quit?: 30YRS Home Medications - Allergies Allergies/Adverse Reactions: Allergies Allergy/AdvReac Type Severity Reaction Status Date / Time tramadol Allergy Verified 07/18/17 19:54 acetaminophen [From Percocet] AdvReac Intermediate nausea Verified 07/14/17 16: 48 oxycodone HCl [From Percocet] AdvReac Intermediate nausea Verified 07/14/17 16: 48 ticagrelor [From BRILINTA] AdvReac Intermediate Verified 07/14/17 16:48 - Home Medications Home Medications: Ambulatory Orders Cholecalciferol (Vitamin D3) [Vitamin D3] 1,000 unit PO DAILY tablet 09/02/12 Clopidogrel Bisulfate [Clopidogrel] 75 mg PO HS #90 tablet 01/10/16 Tamsulosin HCl 0.8 mg PO HS 05/19/16 Aspirin [ASA -] 81 mg PO DAILY 06/11/17 Carvedilol 12.5 mg PO BID 06/11/17 Famotidine 20 mg PO ASDIR 06/11/17 Ferrous Sulfate [Feosol] 325 mg PO DAILY ud 07/12/17 Furosemide [Lasix -] 40 mg PO BID #60 tablet 07/12/17 Docusate Sodium [Colace -] 100 mg PO TID PRN 07/14/17 Insulin Glargine,Hum.rec.anlog [Lantus Solostar PEN -] 15 units SQ HS 07/14/17 Insulin Sliding Scale [Novolog Vial Sliding Scale -] 1 vial SQ TIDAC units 05/22 Lidocaine 5% Patch [Lidoderm Patch -] 1 patch TP DAILY #7 patch 07/15/17 Family Disease History - Family Disease History Family Disease History: [place]: Mother, Sister Review of Systems - Review of Systems Constitutional: denies: Chills, Fever Cardiovascular: denies: Chest Pain, Palpitations, Shortness of Breath Respiratory: denies: Cough, Hemoptysis, Orthopnea, PND, SOB, SOB on Exertion Gastrointestinal: reports: Constipation, Vomiting. denies: Abdominal Pain, Diarrhea, Dysphagia, Melena, Nausea, Rectal Bleeding Genitourinary: denies: Dysuria, Hematuria Neurological: denies: Dizziness, Headache, Seizure, Syncope Vital Signs: Vital Signs Temperature 97.8 F 07/19/17 06:00 Pulse Rate 60 07/19/17 06:00 Respiratory Rate 20 07/19/17 06:00 Blood Pressure 162/61 07/19/17 06:00 O2 Sat by Pulse Oximetry (%) 97 07/19/17 08:28 Eyes: Yes: PERRL HENT: Yes: Atraumatic Neck: Yes: Supple Respiratory: Yes: Diminished Gastrointestinal: Yes: Normal Bowel Sounds, Soft. No: Tenderness Cardiovascular: Yes: Regular Rate and Rhythm JVD: No Carotid Bruit: No PMI: Non-Displaced Heart Sounds: Yes: S1, S2. No: Gallop Murmur: Yes: Systolic Murmur, Grade 1 Edema: No - Other Data Labs, Other Data: CBC, BMP 07/19/17 07:30 07/19/17 07:30 Troponin, BNP 07/18/17 07/19/17 07/19/17 19:21 02:00 07:30 Troponin I 1.22 H* 2.74 H* D 1.07 H* Laboratory Results - last 24 hr 07/18/17 07/18/17 07/18/17 16:30 19:21 19:21 WBC 6.6 RBC 3.21 L Hgb 9.1 L Hct 27.6 L MCV 86.1 MCH 28.4 MCHC 33.0 RDW 15.3 Plt Count 255 MPV 7.0 L Neutrophils % 84.5 H Lymphocytes % 6.2 L Monocytes % 8.1 Eosinophils % 0.9 Basophils % 0.3 Sodium 132 L Potassium 4.1 Chloride 100 Carbon Dioxide 21 L Anion Gap 11 BUN 102 H Creatinine 3.9 H Creat Clearance w eGFR 15.32 POC Glucometer Random Glucose 245 H D Calcium 8.6 Total Bilirubin 0.6 D AST 24 ALT 20 D Alkaline Phosphatase 88 Creatine Kinase Creatine Kinase Index CK-MB (CK-2) Troponin I Total Protein 6.6 Albumin 3.6 Urine Color Yellow Urine Appearance Clear Urine pH 5.5 Ur Specific [place] 1.015 Urine Protein 2+ H Urine Glucose (UA) 1+ H Urine Ketones Negative Urine Blood 1+ H Urine Nitrite Negative Urine Bilirubin Negative Urine Urobilinogen 0.2 Ur Leukocyte Esterase Negative Urine RBC 2-5 Urine WBC 0-1 Urine Bacteria Few 07/18/17 07/19/17 07/19/17 19:21 02:00 05:58 WBC RBC Hgb Hct MCV MCH MCHC RDW Plt Count MPV Neutrophils % Lymphocytes % Monocytes % Eosinophils % Basophils % Sodium Potassium Chloride Carbon Dioxide Anion Gap BUN Creatinine Creat Clearance w eGFR POC Glucometer 190 Random Glucose Calcium Total Bilirubin AST ALT Alkaline Phosphatase Creatine Kinase 237 177 Creatine Kinase Index 3.4 2.4 CK-MB (CK-2) 8.1 H 4.416 H Troponin I 1.22 H* 2.74 H* D Total Protein Albumin Urine Color Urine Appearance Urine pH Ur Specific Biggers Urine Protein Urine Glucose (UA) Urine Ketones Urine Blood Urine Nitrite Urine Bilirubin Urine Urobilinogen Ur Leukocyte Esterase Urine RBC Urine WBC Urine Bacteria 07/19/17 07/19/17 07/19/17 07:30 07:30 07:30 WBC 5.9 RBC 2.94 L Hgb 8.4 L Hct 25.4 L MCV 86.5 MCH 28.8 MCHC 33.3 RDW 15.4 Plt Count 226 MPV 7.6 Neutrophils % 79.2 Lymphocytes % 7.0 L Monocytes % 11.3 H Eosinophils % 2.1 D Basophils % 0.4 Sodium 137 Potassium 3.6 Chloride 104 Carbon Dioxide 24 Anion Gap 9 BUN 92 H Creatinine 3.6 H Creat Clearance w eGFR POC Glucometer Random Glucose 150 H D Calcium 8.5 Total Bilirubin AST ALT Alkaline Phosphatase Creatine Kinase 144 Creatine Kinase Index CK-MB (CK-2) Troponin I 1.07 H* Total Protein Albumin Urine Color Urine Appearance Urine pH Ur Specific Biggers Urine Protein Urine Glucose (UA) Urine Ketones Urine Blood Urine Nitrite Urine Bilirubin Urine Urobilinogen Ur Leukocyte Esterase Urine RBC Urine WBC Urine Bacteria Sinus rhythm with nonspecific ST-T abnormalithy Imaging - Results Chest X-ray: Report Reviewed (Unremarkable) EKG: Report Reviewed Problem List - Problems (1) CAD (coronary artery disease) Code(s): I25.10 - ATHSCL HEART DISEASE OF [place] CORONARY ARTERY W/O ANG PCTRS Qualifiers: Coronary Disease-Associated Artery/Lesion type: [place] artery [place] vs. transplanted heart: [place] heart Associated angina: without angina Qualified Code(s): I25.10 - Atherosclerotic heart disease of [place] coronary artery without angina pectoris (2) HTN (hypertension) Code(s): I10 - ESSENTIAL (PRIMARY) HYPERTENSION Qualifiers: Hypertension type: essential hypertension Qualified Code(s): I10 - Essential (primary) hypertension (3) Hypercholesterolemia Code(s): E78.00 - PURE HYPERCHOLESTEROLEMIA, UNSPECIFIED (4) Constipation Code(s): K59.00 - CONSTIPATION, UNSPECIFIED Qualifiers: Constipation type: unspecified constipation type Qualified Code(s): K59.00 - Constipation, unspecified (5) ESRD (end stage renal disease) Code(s): N18.6 - END STAGE RENAL DISEASE (6) Urinary retention Code(s): R33.9 - RETENTION OF URINE, UNSPECIFIED (7) CKD (chronic kidney disease) Code(s): N18.9 - CHRONIC KIDNEY DISEASE, UNSPECIFIED Qualifiers: Chronic kidney disease stage: unspecified stage Qualified Code(s): N18.9 - Chronic kidney disease, unspecified (8) Diabetes Code(s): E11.9 - TYPE 2 DIABETES MELLITUS WITHOUT COMPLICATIONS Qualifiers: 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 type: type 2 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 complication status: with kidney complications 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 complication detail: with nephropathy 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 combat 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 insulin use: unspecified retirement insulin use status Qualified Code(s): E11.21 - Type 2 diabetes mellitus with diabetic nephropathy (9) Hx of CABG Code(s): Z95.1 - PRESENCE OF AORTOCORONARY BYPASS GRAFT (10) PAD (peripheral artery disease) Code(s): I73.9 - PERIPHERAL VASCULAR DISEASE, UNSPECIFIED (11) Lumbar back pain Code(s): M54.5 - LOW BACK PAIN (12) Acute on chronic diastolic heart failure Code(s): I50.33 - ACUTE ON CHRONIC DIASTOLIC (CONGESTIVE) HEART FAILURE (13) Acute on chronic renal failure Code(s): N17.9 - ACUTE KIDNEY FAILURE, UNSPECIFIED; N18.9 - CHRONIC KIDNEY DISEASE, UNSPECIFIED Assessment/Plan 1. CAD, s/p CABG, angina pectoris - demand ischemia 2. Hypertension 3. Hypercholesterolemia 4. 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 5. PAD s/p bypass surgery 6. CKD 7. Anemia PLAN: 1. Trend cardiac enzyme. Would favor optimizing medical therapy. Patient remains asymptomatic and troponins are trending down and in view of CKD, would not pursue further cardiac intervention at this time 2. Carvedilol was increased - continue as tolerated 3. Continue ASA and Plavix 4. Continue Atorvastatin 5. Chen catheter in place. Monitor urine output (I/Os) and renal function. Monitor electrolytes 6. Continue diuretics - Lasix 7. 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 Further plans are to follow Magno Hernandez MD
[2017-07-19 10:30] LABS: MAGNESIUM 2.2 mg/dL (1.8-2.4); PHOSPHOROUS 5.2 mg/dl (2.5-4.6)
--- NOTE | 2017-07-19 12:47 | EKG ---
Test Reason : Blood Pressure : / mmHG Vent. Rate : 063 BPM Atrial Rate : 063 BPM P-R Int : 182 ms QRS Dur : 114 ms QT Int : 436 ms P-R-T Axes : 055 -18 153 degrees QTc Int : 446 ms POOR DATA QUALITY, INTERPRETATION MAY BE ADVERSELY AFFECTED NORMAL SINUS RHYTHM LEFT VENTRICULAR HYPERTROPHY WITH REPOLARIZATION ABNORMALITY POOR R WAVE PROGRESSION ABNORMAL ECG WHEN COMPARED WITH ECG OF 14-JUL-2017 21:15, MINIMAL CRITERIA FOR SEPTAL INFARCT ARE NO LONGER PRESENT NON-SPECIFIC CHANGE IN ST SEGMENT IN ANTERIOR LEADS Confirmed by OMKAR DEL TORO MD ([id number]) on 07/19/2017 12:47:18 PM Referred By: MD CONTRERAS Confirmed By:OMKAR DEL TORO MD
--- NOTE | 2017-07-19 12:49 | EKG ---
Test Reason : Blood Pressure : / mmHG Vent. Rate : 062 BPM Atrial Rate : 062 BPM P-R Int : 188 ms QRS Dur : 110 ms QT Int : 400 ms P-R-T Axes : 063 -18 144 degrees QTc Int : 407 ms NORMAL SINUS RHYTHM CANNOT RULE OUT SEPTAL INFARCT LEFT VENTRICULAR HYPERTROPHY WITH REPOLARIZATION ABNORMALITY POOR R WAVE PROGRESSION ABNORMAL ECG WHEN COMPARED WITH ECG OF 18-JUL-2017 19:44, NO SIGNIFICANT CHANGE WAS FOUND Loss of R wave in V2 (possibly due to lead placement) Confirmed by OMKAR DEL TORO MD ([id number]) on 07/19/2017 12:49:00 PM Referred By: Confirmed By:OMKAR DEL TORO MD
--- NOTE | 2017-07-19 13:00 | CONSULT ---
Consult Consult Specialty:: Nephrology Reason for Consultation:: CKD with acute component - History of Present Illness Chief Complaint: abdominal pain History of Present Illness: Pt is a 71 year old male with pmhx of CAD, PAD, HTN, chol, CKD, and anemia who presents to the ER with abdominal pain. He was found to have urinary retention. A witt was placed and he started to feel better. He has history of CKD but is not yet on HD. He denies shortness of breath. He denies chest pain or palpitations. He denies nsaid use. He was found to have elevated troponins. I was called to evaluate him for elevated creatinine. - History Source History Provided By: Patient, Medical Record - Past Medical History Cardio/Vascular: Yes: CAD, CHF, HTN, Hyperlipdemia, [place] Gastrointestinal: Yes: GI Bleed Renal/: Yes: Renal Inusuff Endocrine: Yes: Diabetes Mellitus - Past Surgical History Past Surgical History: Yes: Bypass (Lower extremity), CABG, Hernia Repair, Stent (PCI) - Alcohol/Substance Use Hx Alcohol Use: No History of Substance Use: reports: None - Smoking History Smoking history: Never smoked Have you smoked in the past 12 months: No If you are a former smoker, when did you quit?: 30YRS Home Medications - Allergies Allergies/Adverse Reactions: Allergies Allergy/AdvReac Type Severity Reaction Status Date / Time tramadol Allergy Verified 07/18/17 19:54 acetaminophen [From Percocet] AdvReac Intermediate nausea Verified 07/14/17 16: 48 oxycodone HCl [From Percocet] AdvReac Intermediate nausea Verified 07/14/17 16: 48 ticagrelor [From BRILINTA] AdvReac Intermediate Verified 07/14/17 16:48 - Home Medications Home Medications: Ambulatory Orders Cholecalciferol (Vitamin D3) [Vitamin D3] 1,000 unit PO DAILY tablet 09/02/12 Clopidogrel Bisulfate [Clopidogrel] 75 mg PO HS #90 tablet 01/10/16 Tamsulosin HCl 0.8 mg PO HS 05/19/16 Aspirin [ASA -] 81 mg PO DAILY 06/11/17 Carvedilol 12.5 mg PO BID 06/11/17 Famotidine 20 mg PO ASDIR 06/11/17 Ferrous Sulfate [Feosol] 325 mg PO DAILY ud 07/12/17 Furosemide [Lasix -] 40 mg PO BID #60 tablet 07/12/17 Docusate Sodium [Colace -] 100 mg PO TID PRN 07/14/17 Insulin Glargine,Hum.rec.anlog [Lantus Solostar PEN -] 15 units SQ HS 07/14/17 Insulin Sliding Scale [Novolog Vial Sliding Scale -] 1 vial SQ TIDAC units 05/22 Lidocaine 5% Patch [Lidoderm Patch -] 1 patch TP DAILY #7 patch 07/15/17 Family Disease History - Family Disease History Family Disease History: [place]: Mother, Sister Review of Systems - Review of Systems Constitutional: reports: Malaise Eyes: reports: No Symptoms HENT: reports: No Symptoms Neck: reports: No Symptoms Cardiovascular: reports: No Symptoms Respiratory: reports: No Symptoms Gastrointestinal: reports: Abdominal Pain Genitourinary: reports: Other Musculoskeletal: reports: No Symptoms Integumentary: reports: No Symptoms Neurological: reports: No Symptoms Endocrine: reports: No Symptoms Hematology/Lymphatic: reports: No Symptoms Psychiatric: reports: No Symptoms Physical Exam Vital Signs: Vital Signs Temperature 97.8 F 07/19/17 06:00 Pulse Rate 60 07/19/17 06:00 Respiratory Rate 20 07/19/17 06:00 Blood Pressure 162/61 07/19/17 06:00 O2 Sat by Pulse Oximetry (%) 97 07/19/17 08:28 Constitutional: Yes: Calm Eyes: Yes: Conjunctiva Clear HENT: Yes: Atraumatic Neck: Yes: Supple Cardiovascular: Yes: S1, S2 Respiratory: Yes: CTA Bilaterally Gastrointestinal: Yes: Soft Renal/: Yes: Witt Present Musculoskeletal: Yes: WNL Extremities: Yes: WNL Edema: No Neurological: Yes: Oriented Psychiatric: Yes: Oriented Labs: CBC, BMP 07/19/17 07:30 07/19/17 07:30 Laboratory Tests 07/09/17 07/10/17 07/11/17 17:30 07:20 07:20 Hgb Creatinine 4.2 H 4.3 H 4.0 H 07/12/17 07/14/17 07/15/17 06:35 18:40 06:30 Hgb Creatinine 4.0 H 4.3 H 4.1 H 07/18/17 07/18/17 07/19/17 19:21 19:21 07:30 Hgb 9.1 L 8.4 L Creatinine 3.9 H 07/19/17 07:30 Hgb Creatinine 3.6 H Imaging - Results Chest X-ray: Report Reviewed Problem List - Problems (1) CAD (coronary artery disease) Code(s): I25.10 - ATHSCL HEART DISEASE OF [place] CORONARY ARTERY W/O ANG PCTRS Qualifiers: Coronary Disease-Associated Artery/Lesion type: [place] artery [place] vs. transplanted heart: [place] heart Associated angina: without angina Qualified Code(s): I25.10 - Atherosclerotic heart disease of [place] coronary artery without angina pectoris (2) DVT prophylaxis Code(s): [id number] - (3) HTN (hypertension) Code(s): I10 - ESSENTIAL (PRIMARY) HYPERTENSION Qualifiers: Hypertension type: essential hypertension Qualified Code(s): I10 - Essential (primary) hypertension (4) Hypercholesterolemia Code(s): E78.00 - PURE HYPERCHOLESTEROLEMIA, UNSPECIFIED (5) Constipation Code(s): K59.00 - CONSTIPATION, UNSPECIFIED Qualifiers: Constipation type: unspecified constipation type Qualified Code(s): K59.00 - Constipation, unspecified (6) Urinary retention Code(s): R33.9 - RETENTION OF URINE, UNSPECIFIED Assessment/Plan Current Medications Generic Name Dose Route Start Last Admin Trade Name Freq PRN Reason Stop Dose Admin Aspirin 81 mg 07/19/17 10:00 07/19/17 09:59 Asa - PO 81 mg DAILY ROSIE Administration Atorvastatin Calcium 20 mg 07/19/17 10:00 07/19/17 09:59 Lipitor - PO 20 mg DAILY ROSIE Administration Carvedilol 25 mg 07/19/17 10:00 07/19/17 09:59 Coreg - PO 25 mg BID ROSIE Administration Cholecalciferol 1,000 unit 07/19/17 10:00 07/19/17 09:59 Vitamin D3 - PO 1,000 unit DAILY ROSIE Administration Citalopram Hydrobromide 20 mg 07/19/17 10:00 07/19/17 10:00 Celexa - PO 20 mg DAILY ROSIE Administration Clopidogrel Bisulfate 75 mg 07/19/17 22:00 Plavix - PO HS ROSIE Docusate Sodium 100 mg 07/19/17 03:22 Colace - PO TID PRN CONSTIPATION Famotidine 20 mg 07/19/17 10:00 07/19/17 09:59 Pepcid - PO 20 mg BID ROSIE Administration Ferrous Sulfate 325 mg 07/19/17 10:00 07/19/17 09:59 Feosol - PO 325 mg DAILY ROSIE Administration Furosemide 40 mg 07/19/17 06:00 07/19/17 06:11 Lasix - PO 40 mg BIDLASIX ROSIE Administration Gabapentin 100 mg 07/19/17 10:00 07/19/17 09:58 Neurontin - PO 100 mg DAILY ROSIE Administration Insulin Aspart 1 vial 07/19/17 07:00 07/19/17 11:23 Novolog Vial Sliding Scale - SQ 4 units TIDAC ROSIE Administration Protocol Insulin Detemir 15 units 07/19/17 22:00 Levemir Vial SQ HS ROSIE Lidocaine 1 patch 07/19/17 10:00 07/19/17 10:00 Lidoderm Patch - TP 1 patch DAILY ROSIE Administration Miscellaneous 1 each 07/19/17 22:00 Lidoderm Patch Removal MC DAILY@2200 RSOIE Tamsulosin HCl 0.8 mg 07/19/17 22:00 Flomax - PO HS ROSIE Impression 1. CKD 2. anemia 3. HTN 4. Chol 5. DM 6. BPH 7. CAD 8. urinary retention Plan - renal function is stable - maintain witt - recommend urology eval - follow up cardiology - cont lasix - daily weights - renal diet Dr Donovan
[2017-07-19] MEDS: CLOPIDOGREL BISULFATE 75 MG TABLET (FP) PO SCH (21:21)
[2017-07-19] MEDS: TAMSULOSIN HCL 0.4 MG CAP.ER.24H (FP) PO SCH (21:21)
[2017-07-19] MEDS: INSULIN DETEMIR 100 UNITS/ML MDV SQ SCH (21:21)
[2017-07-19] MEDS: LIDOCAINE PATCH REMOVAL MC SCH (21:22)
[2017-07-19] MEDS ORDERED: PATIENT'S OWN MEDICATION (NON-FORMULARY) (Insulin Glargine,Hum.Rec.Anlog 15 UNITS) SQ SCH (22:00)
[2017-07-20] MEDS: FUROSEMIDE 40 MG TABLET (FP) PO SCH ×2 (06:15→13:54)
[2017-07-20] MEDS: INSULIN SLIDING SCALE (NOVOLOG) 1 VIAL SQ SCH ×3 (06:16→16:57)
--- NOTE | 2017-07-20 08:30 | CON.GU ---
Consult Consult Specialty:: Referred by:: Medicine Reason for Consultation:: urinary retention - History of Present Illness Chief Complaint: urinary retention History of Present Illness: 71 year old male with severe constipation and urinary retention. He has an extensive spinal history with multiple fusion surgeries and uses a walker to assist in ambulation. He had an MRI earlier this year which also noted a very distended bladder. He has chronic renal insufficiency and here has a creatinine of 3.6. He notes that for the last few days he has not had a bowel movement and that urination has also been more difficult than usual - History Source History Provided By: Patient, Medical Record Limitations to Obtaining History: No Limitations - Past Medical History Cardio/Vascular: Yes: CAD, CHF, HTN, Hyperlipdemia, [place] Gastrointestinal: Yes: Constipation, GI Bleed Renal/: Yes: Renal Inusuff, Neurogenic Bladder Endocrine: Yes: Diabetes Mellitus - Past Surgical History Past Surgical History: Yes: Bypass (Lower extremity), CABG, Hernia Repair, Stent (PCI) - Alcohol/Substance Use Hx Alcohol Use: No History of Substance Use: reports: None - Smoking History Smoking history: Never smoked Have you smoked in the past 12 months: No If you are a former smoker, when did you quit?: 30YRS - Social History ADL: Family Assistance History of Recent Travel: No Home Medications - Allergies Allergies/Adverse Reactions: Allergies Allergy/AdvReac Type Severity Reaction Status Date / Time tramadol Allergy Verified 07/18/17 19:54 acetaminophen [From Percocet] AdvReac Intermediate nausea Verified 07/14/17 16: 48 oxycodone HCl [From Percocet] AdvReac Intermediate nausea Verified 07/14/17 16: 48 ticagrelor [From BRILINTA] AdvReac Intermediate Verified 07/14/17 16:48 - Home Medications Home Medications: Ambulatory Orders Cholecalciferol (Vitamin D3) [Vitamin D3] 1,000 unit PO DAILY tablet 09/02/12 Clopidogrel Bisulfate [Clopidogrel] 75 mg PO HS #90 tablet 01/10/16 Tamsulosin HCl 0.8 mg PO HS 05/19/16 Aspirin [ASA -] 81 mg PO DAILY 06/11/17 Carvedilol 12.5 mg PO BID 06/11/17 Famotidine 20 mg PO ASDIR 06/11/17 Ferrous Sulfate [Feosol] 325 mg PO DAILY ud 07/12/17 Furosemide [Lasix -] 40 mg PO BID #60 tablet 07/12/17 Docusate Sodium [Colace -] 100 mg PO TID PRN 07/14/17 Insulin Glargine,Hum.rec.anlog [Lantus Solostar PEN -] 15 units SQ HS 07/14/17 Insulin Sliding Scale [Novolog Vial Sliding Scale -] 1 vial SQ TIDAC units 05/22 Lidocaine 5% Patch [Lidoderm Patch -] 1 patch TP DAILY #7 patch 07/15/17 Family Disease History - Family Disease History Family Disease History: [place]: Mother, Sister Review of Systems - Review of Systems Gastrointestinal: reports: Constipation Genitourinary: reports: Frequency, Urgency Physical Exam- Vital Signs: Vital Signs Temperature 97.8 F 07/20/17 06:00 Pulse Rate 57 L 07/20/17 06:00 Respiratory Rate 07/20/17 06:00 Blood Pressure 156/52 07/20/17 06:00 O2 Sat by Pulse Oximetry (%) 96 07/19/17 22:08 Constitutional: Yes: Well Nourished, No Distress, Calm Gastrointestinal: Yes: Soft Renal/: Yes: Witt Present. No: Bladder Distention, CVA Tenderness - Left, CVA Tenderness - Right, Hematuria Labs: CBC, BMP 07/19/17 07:30 07/19/17 07:30 Imaging - Results MRI: Report Reviewed Problem List - Problems (1) Urinary retention Assessment/Plan: by history patient likely has a neurogenic bladder with renal insufficiency. Recommend leaving in the current witt cath until he is disimpacted/has BMs and until his creatinine nadirs. He will benefit from outpatient cystometric/ Urodynamics. Code(s): R33.9 - RETENTION OF URINE, UNSPECIFIED (2) Neurogenic bladder Assessment/Plan: as above./ flomax and bethanechol Code(s): N31.9 - NEUROMUSCULAR DYSFUNCTION OF BLADDER, UNSPECIFIED (3) Constipation Assessment/Plan: aggressive bowel management Code(s): K59.00 - CONSTIPATION, UNSPECIFIED Qualifiers: Constipation type: unspecified constipation type Qualified Code(s): K59.00 - Constipation, unspecified
[2017-07-20] MEDS: CHOLECALCIFEROL (VITAMIN D3) 1,000 UNIT TABLET (FP) PO SCH (09:40)
[2017-07-20] MEDS: CITALOPRAM HYDROBROMIDE 20 MG TABLET (FP) PO SCH (09:40)
[2017-07-20] MEDS: FERROUS SO4 325 MG TABLET (FP) PO SCH (09:41)
[2017-07-20] MEDS: LIDOCAINE 5% TOPICAL PATCH TP SCH (09:41)
[2017-07-20] MEDS: GABAPENTIN 100 MG CAPSULE (FP) PO SCH (09:41)
[2017-07-20] MEDS: ASPIRIN 81 MG CHEWABLE TABLETS PO SCH (09:41)
[2017-07-20] MEDS: ATORVASTATIN CA 20 MG TABLET (FP) PO SCH (09:41)
[2017-07-20] MEDS: FAMOTIDINE 20 MG TABLET PO SCH ×2 (09:41→21:39)
[2017-07-20] MEDS: CARVEDILOL 25 MG TABLET (FP) PO SCH ×2 (09:41→21:40)
--- NOTE | 2017-07-20 10:25 | PN ---
Physical Exam: SUBJECTIVE: Patient seen and examined, reports feeling well, denies any chest pain or shortness of breath. OBJECTIVE: patient is a 71 y/o male with a past medical history of CAD (stent x 2, cabag), hypertension, lower back pain (s/p laminictomy and fusions), and hernia repair. Patient was admitted from the emergency department for elevated troponins. Vital Signs Period Temp Pulse Resp BP Sys/Rodriguez Pulse Ox Last 24 Hr 97.8 F-98.8 F 57-64 17-18 152-156/46-52 96-96 GENERAL: The patient is awake, alert, and fully oriented, in no acute distress. HEAD: Normal with no signs of trauma. EYES: PERRL, extraocular movements intact, sclera anicteric, conjunctiva clear. No ptosis. ENT: Ears normal, nares patent, oropharynx clear without exudates, moist mucous membranes. NECK: Trachea midline, full range of motion, supple. LUNGS: Breath sounds equal, clear to auscultation bilaterally, no wheezes, no crackles, no accessory muscle use. HEART: Regular rate and rhythm, S1, S2 without murmur, rub or gallop. ABDOMEN: Soft, nontender, nondistended, normoactive bowel sounds, no guarding, no rebound, no hepatosplenomegaly, no masses. : witt cather in place, clear yellow urine draining. EXTREMITIES: 2+ pulses, warm, well-perfused, no edema. NEUROLOGICAL: Cranial nerves II through XII grossly intact. Normal speech, gait not observed. PSYCH: Normal mood, normal affect. SKIN: Warm, dry, normal turgor, no rashes or lesions noted Laboratory Results - last 24 hr 07/19/17 07/19/17 07/19/17 07:30 07:30 11:22 POC Glucometer 222 Phosphorus 5.2 H Magnesium 2.2 B-Natriuretic Peptide 10685.96 H 07/19/17 07/19/17 07/20/17 17:02 20:21 05:59 POC Glucometer 310 218 108 Phosphorus Magnesium B-Natriuretic Peptide CBC WBC 6.9 K/mm3 (4.0-10.8) 07/20/17 10:30 RBC 3.09 M/mm3 (4.00-5.60) L 07/20/17 10:30 Hgb 8.8 GM/dl (11.7-16.9) L 07/20/17 10:30 Hct 26.6 % (35.4-49) L 07/20/17 10:30 MCV 86.1 fl (80-96) 07/20/17 10:30 MCH 28.5 pg (25.7-33.7) 07/20/17 10:30 MCHC 33.1 g/dl (32.0-35.9) 07/20/17 10:30 RDW 15.9 % (11.9-15.9) 07/20/17 10:30 Plt Count 246 K/MM3 (134-434) 07/20/17 10:30 MPV 7.5 fl (7.5-11.1) 07/20/17 10:30 Neutrophils % 81.5 % (42.8-82.8) 07/20/17 10:30 Lymphocytes % 7.3 % (8-40) L 07/20/17 10:30 Monocytes % 8.0 % (3.8-10.2) 07/20/17 10:30 Eosinophils % 2.4 % (0-4.5) 07/20/17 10:30 Basophils % 0.8 % (0-2.0) 07/20/17 10:30 CMP Sodium 135 mmol/L (136-145) L 07/20/17 10:30 Potassium 4.0 mmol/L (3.5-5.1) 07/20/17 10:30 Chloride 103 mmol/L (98-107) 07/20/17 10:30 Carbon Dioxide 24 mmol/L (22-28) 07/20/17 10:30 Anion Gap 8 (8-16) 07/20/17 10:30 BUN 87 mg/dl (7-18) H 07/20/17 10:30 Creatinine 3.8 mg/dl (0.6-1.3) H 07/20/17 10:30 Creat Clearance w eGFR 15.78 (>60) 07/20/17 10:30 POC Glucometer 363 UNITS (80-120) 07/20/17 12:41 Random Glucose 273 mg/dl (74-106) H D 07/20/17 10:30 Calcium 8.2 mg/dl (8.4-10.2) L 07/20/17 10:30 Phosphorus 5.2 mg/dl (2.5-4.6) H 07/19/17 07:30 Magnesium 2.2 mg/dL (1.8-2.4) 07/19/17 07:30 Total Bilirubin 0.5 mg/dl (0.2-1.0) 07/20/17 10:30 AST 17 U/L (10-42) D 07/20/17 10:30 ALT 17 U/L (10-40) 07/20/17 10:30 Alkaline Phosphatase 90 U/L (32-92) 07/20/17 10:30 Creatine Kinase 89 IU/L (39-308) 07/20/17 10:24 Creatine Kinase Index 2.4 % (0.0-5.0) 07/19/17 02:00 CK-MB (CK-2) 4.416 ng/mL (0.5-3.6) H 07/19/17 02:00 Troponin I 0.71 ng/ml (0.03-0.50) H* D 07/20/17 10:24 B-Natriuretic Peptide 95472.96 pg/ml (5-125) H 07/19/17 07:30 Total Protein 6.0 g/dl (6.4-8.3) L 07/20/17 10:30 Albumin 3.0 g/dl (3.5-5.0) L 07/20/17 10:30 Active Medications Generic Name Dose Route Start Last Admin Trade Name Freq PRN Reason Stop Dose Admin Aspirin 81 mg 07/19/17 10:00 07/20/17 09:41 Asa - PO 81 mg DAILY ROSIE Administration Atorvastatin Calcium 20 mg 07/19/17 10:00 07/20/17 09:41 Lipitor - PO 20 mg DAILY ROSIE Administration Bethanechol Chloride 10 mg 07/20/17 14:00 Urecholine - PO TID ROSIE Carvedilol 25 mg 07/19/17 10:00 07/20/17 09:41 Coreg - PO 25 mg BID ROSIE Administration Cholecalciferol 1,000 unit 07/19/17 10:00 07/20/17 09:40 Vitamin D3 - PO 1,000 unit DAILY ROSIE Administration Citalopram Hydrobromide 20 mg 07/19/17 10:00 07/20/17 09:40 Celexa - PO 20 mg DAILY ROSIE Administration Clopidogrel Bisulfate 75 mg 07/19/17 22:00 07/19/17 21:21 Plavix - PO 75 mg HS ROSIE Administration Docusate Sodium 100 mg 07/19/17 03:22 Colace - PO TID PRN CONSTIPATION Famotidine 20 mg 07/19/17 10:00 07/20/17 09:41 Pepcid - PO 20 mg BID ROSIE Administration Ferrous Sulfate 325 mg 07/19/17 10:00 07/20/17 09:41 Feosol - PO 325 mg DAILY ROSIE Administration Furosemide 40 mg 07/19/17 06:00 07/20/17 06:15 Lasix - PO 40 mg BIDLASIX ROSIE Administration Gabapentin 100 mg 07/19/17 10:00 07/20/17 09:41 Neurontin - PO 100 mg DAILY ROSIE Administration Insulin Aspart 1 vial 07/19/17 07:00 07/20/17 06:16 Novolog Vial Sliding Scale - SQ Not Given TIDAC [facility] Protocol Insulin Detemir 15 units 07/19/17 22:00 07/19/17 21:21 Levemir Vial SQ 15 units HS ROSIE Administration Lidocaine 1 patch 07/19/17 10:00 07/20/17 09:41 Lidoderm Patch - TP 1 patch DAILY ROSIE Administration Miscellaneous 1 each 07/19/17 22:00 07/19/17 21:22 Lidoderm Patch Removal MC 1 each DAILY@2200 ROSIE Administration Tamsulosin HCl 0.8 mg 07/19/17 22:00 07/19/17 21:21 Flomax - PO 0.8 mg HS ROSIE Administration Microbiology 07/18/17 16:30 Urine - Urine Witt Urine Culture - Final NO GROWTH OBTAINED IMAGING ekg nsr 07/19, nsr w/lvh chest xray: no infilitrate no effusions abd xray: air distention consistent with constipation ASSESSMENT/PLAN: 1) cardiovascular elevated troponin - troponin downtrending 0.71, , likely secondary to ischemic demand and ckd, continue to trend - echo 07/22, lv, severe pulmonary hypertension, severe TR - cardiology, Dr Brothers, consulted and following hypertension - b/p above goal, continue coreg and start procardia as per cardiology. - strict b/p monitoring q4h. 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 7) GI constipation - mag citrate and enema ordered, miralax daily f/e/n - diabetic/low sodium renal diet - replete lytes prn ppx - oob - pt - scd dispo: lengthy discussion in patient and , requesting short term rehab, requesting [facility], bed available on 07/22/17 requires inpatient admission Visit type - Emergency Visit Emergency Visit: Yes ED Registration Date: 07/18/17 Care time: The patient presented to the Emergency Department on the above date and was hospitalized for further evaluation of their emergent condition. - New Patient This patient is new to me today: No - Critical Care Critical Care patient: No - Discharge Referral Referred to [facility] Med P.C.: No
--- NOTE | 2017-07-20 10:51 | PN ---
Progress Note, Physician History of Present Illness: Feels better after witt catheter bladder decompression, denies chest pain or dyspnea. Constipated for last 5 days, previously on Ultram, suspect side effects. - Current Medication List Current Medications: Active Medications Aspirin (Asa -) 81 mg PO DAILY [facility] Last Admin: 07/20/17 09:41 Dose: 81 mg Atorvastatin Calcium (Lipitor -) 20 mg PO DAILY [facility] Last Admin: 07/20/17 09:41 Dose: 20 mg Bethanechol Chloride (Urecholine -) 10 mg PO TID [facility] Carvedilol (Coreg -) 25 mg PO BID [facility] Last Admin: 07/20/17 09:41 Dose: 25 mg Cholecalciferol (Vitamin D3 -) 1,000 unit PO DAILY [facility] Last Admin: 07/20/17 09:40 Dose: 1,000 unit Citalopram Hydrobromide (Celexa -) 20 mg PO DAILY [facility] Last Admin: 07/20/17 09:40 Dose: 20 mg Clopidogrel Bisulfate (Plavix -) 75 mg PO HS [facility] Last Admin: 07/19/17 21:21 Dose: 75 mg Docusate Sodium (Colace -) 100 mg PO TID PRN PRN Reason: CONSTIPATION Famotidine (Pepcid -) 20 mg PO BID [facility] Last Admin: 07/20/17 09:41 Dose: 20 mg Ferrous Sulfate (Feosol -) 325 mg PO DAILY [facility] Last Admin: 07/20/17 09:41 Dose: 325 mg Furosemide (Lasix -) 40 mg PO BIDLASIX [facility] Last Admin: 07/20/17 06:15 Dose: 40 mg Gabapentin (Neurontin -) 100 mg PO DAILY [facility] Last Admin: 07/20/17 09:41 Dose: 100 mg Insulin Aspart (Novolog Vial Sliding Scale -) 1 vial SQ TIDAC [facility] PRN Reason: Protocol Last Admin: 07/20/17 06:16 Dose: Not Given Insulin Detemir (Levemir Vial) 15 units SQ [facility] Last Admin: 07/19/17 21:21 Dose: 15 units Lidocaine (Lidoderm Patch -) 1 patch TP DAILY [facility] Last Admin: 07/20/17 09:41 Dose: 1 patch Miscellaneous (Lidoderm Patch Removal) 1 each MC DAILY@2200 [facility] Last Admin: 07/19/17 21:22 Dose: 1 each Tamsulosin HCl (Flomax -) 0.8 mg PO HS [facility] Last Admin: 07/19/17 21:21 Dose: 0.8 mg - Objective Vital Signs: Vital Signs Temperature 97.8 F 07/20/17 06:00 Pulse Rate 57 L 07/20/17 06:00 Respiratory Rate 07/20/17 06:00 Blood Pressure 156/52 07/20/17 06:00 O2 Sat by Pulse Oximetry (%) 96 07/19/17 22:08 Constitutional: Yes: No Distress, Calm Neck: Yes: Supple Cardiovascular: Yes: Regular Rate and Rhythm Respiratory: Yes: Regular, CTA Bilaterally Gastrointestinal: Yes: Normal Bowel Sounds, Soft Edema: No Labs: CBC, BMP 07/19/17 07:30 07/19/17 07:30 - ....Imaging EKG: Report Reviewed (Tele: SR) Problem List - Problems (1) Demand ischemia Code(s): I24.8 - OTHER FORMS OF ACUTE ISCHEMIC HEART DISEASE (2) Anemia Code(s): D64.9 - ANEMIA, UNSPECIFIED Qualifiers: Anemia type: due to chronic kidney disease Chronic kidney disease stage: stage 4 (severe) Qualified Code(s): N18.4 - Chronic kidney disease, stage 4 ( severe); D63.1 - Anemia in chronic kidney disease; D63.1 - Anemia in chronic kidney disease (3) CAD (coronary artery disease) Code(s): I25.10 - ATHSCL HEART DISEASE OF [place] CORONARY ARTERY W/O ANG PCTRS Qualifiers: Coronary Disease-Associated Artery/Lesion type: [place] artery [place] vs. transplanted heart: [place] heart Associated angina: without angina Qualified Code(s): I25.10 - Atherosclerotic heart disease of [place] coronary artery without angina pectoris (4) Elevated troponin I level Code(s): R74.8 - ABNORMAL LEVELS OF OTHER SERUM ENZYMES (5) HTN (hypertension) Code(s): I10 - ESSENTIAL (PRIMARY) HYPERTENSION Qualifiers: Hypertension type: essential hypertension Qualified Code(s): I10 - Essential (primary) hypertension (6) Hypercholesterolemia Code(s): E78.00 - PURE HYPERCHOLESTEROLEMIA, UNSPECIFIED (7) Neurogenic bladder Code(s): N31.9 - NEUROMUSCULAR DYSFUNCTION OF [place], UNSPECIFIED (8) Constipation Code(s): K59.00 - CONSTIPATION, UNSPECIFIED Qualifiers: Constipation type: unspecified constipation type Qualified Code(s): K59.00 - Constipation, unspecified (9) Urinary retention Code(s): R33.9 - RETENTION OF URINE, UNSPECIFIED (10) CKD (chronic kidney disease) Code(s): N18.9 - CHRONIC KIDNEY DISEASE, UNSPECIFIED Qualifiers: Chronic kidney disease stage: unspecified stage Qualified Code(s): N18.9 - Chronic kidney disease, unspecified (11) Diabetes Code(s): E11.9 - TYPE 2 DIABETES MELLITUS WITHOUT COMPLICATIONS Qualifiers: 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 type: type 2 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 complication status: with kidney complications 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 complication detail: with nephropathy 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 CAD, s/p CABG, angina pectoris - demand ischemia 2. Hypertension/HCVD, BP not at goal 3. Hypercholesterolemia 4. 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 5. PAD s/p bypass surgery 6. CKD 7. Anemia of CKD 8. BPH, urinary retention with neurogenic bladder due to Ultram 9. Constipation due to Ultram PLAN: 1. Cardiac enzyme have peaked. Would favor optimizing medical therapy. Patient remains asymptomatic and troponins are trending down and in view of CKD, would not pursue further cardiac intervention at this time 2. Continue Carvedilol 25 bid and add Procardia XL 30 qd with uptitration as tolerated 3. Continue ASA 81 qd and Plavix 75 qd 4. Continue Atorvastatin 20 qd 5. Witt catheter in place. Monitor urine output (I/Os) and renal function. Monitor electrolytes 6. Continue Lasix 40 bid 7. Urology input appreciated, would benefit from outpatient cystometric/ Urodynamics. 8. Aggressive bowel regimen like Miralax, avoid opiod agonists Upon discharge, patient is to follow up with electrophysiology scientist: Dr. Ángel Murguia ( [facility])
[2017-07-20 11:47] LABS: BASO % 0.8 % (0-2.0); EOS % 2.4 % (0-4.5); HEMATOCRIT 26.6 % (35.4-49); HEMOGLOBIN 8.8 GM/dl (11.7-16.9); LYMPH % 7.3 % (8-40); MCH 28.5 pg (25.7-33.7); MCHC 33.1 g/dl (32.0-35.9); MEAN CELL VOLUME 86.1 fl (80-96); MEAN PLT VOLUME 7.5 fl (7.5-11.1); NEUT % 81.5 % (42.8-82.8); PLATELET COUNT 246 K/MM3 (134-434); RBC 3.09 M/mm3 (4.00-5.60); RDW 15.9 % (11.9-15.9); WHITE BLOOD COUNT 6.9 K/mm3 (4.0-10.8)
[2017-07-20 11:58] LABS: ALK PHOS 90 U/L (32-92); ANION GAP 8 (8-16); BILIRUBIN,TOTAL 0.5 mg/dl (0.2-1.0); BLOOD UREA NITROGEN 87 mg/dl (7-18); CALCIUM 8.2 mg/dl (8.4-10.2); CHLORIDE 103 mmol/L (98-107); CO2 24 mmol/L (22-28); CREATININE 3.8 mg/dl (0.6-1.3); GLUCOSE,RANDOM 273 mg/dl (74-106); SGOT/AST 17 U/L (10-42); SGPT/ALT 17 U/L (10-40); SODIUM 135 mmol/L (136-145)
[2017-07-20] MEDS ORDERED: MAGNESIUM CITRATE 300 ML BOTTLE PO ONE (12:00)
[2017-07-20 12:01] LABS: TROPONIN I (DFP) 0.71 ng/ml (0.03-0.50)
[2017-07-20] MEDS: NIFEdipine E.R. 30 MG TABLET (FP) PO SCH (12:48)
[2017-07-20] MEDS ORDERED: PT OWN MED DRAWER 7, Y5N ONE ×2 (13:51→21:37)
[2017-07-20] MEDS: BETHANECHOL CHLORIDE 10 MG TABLET PO SCH ×2 (13:54→21:39)
[2017-07-20] MEDS: CLOPIDOGREL BISULFATE 75 MG TABLET (FP) PO SCH (21:39)
[2017-07-20] MEDS: LIDOCAINE PATCH REMOVAL MC SCH (21:40)
[2017-07-20] MEDS: INSULIN DETEMIR 100 UNITS/ML MDV SQ SCH (21:40)
[2017-07-20] MEDS: TAMSULOSIN HCL 0.4 MG CAP.ER.24H (FP) PO SCH (21:40)
[2017-07-21] MEDS ORDERED: PT OWN MED DRAWER 7, Y5N ONE ×2 (06:37→21:05)
[2017-07-21] MEDS: FUROSEMIDE 40 MG TABLET (FP) PO SCH (06:41)
[2017-07-21] MEDS: BETHANECHOL CHLORIDE 10 MG TABLET PO SCH ×3 (06:42→21:08)
[2017-07-21] MEDS: INSULIN SLIDING SCALE (NOVOLOG) 1 VIAL SQ SCH ×3 (06:42→17:00)
[2017-07-21 08:27] LABS: BASO % 0.7 % (0-2.0); EOS % 3.2 % (0-4.5); HEMOGLOBIN 8.9 GM/dl (11.7-16.9); MCH 28.5 pg (25.7-33.7); MCHC 32.8 g/dl (32.0-35.9); MEAN CELL VOLUME 86.8 fl (80-96); MEAN PLT VOLUME 7.3 fl (7.5-11.1); MONO % 8.2 % (3.8-10.2); NEUT % 79.9 % (42.8-82.8); PLATELET COUNT 255 K/MM3 (134-434); RBC 3.12 M/mm3 (4.00-5.60); RDW 15.5 % (11.9-15.9); WHITE BLOOD COUNT 6.7 K/mm3 (4.0-10.8)
[2017-07-21 08:28] LABS: ANION GAP 9 (8-16); BLOOD UREA NITROGEN 88 mg/dl (7-18); CALCIUM 8.3 mg/dl (8.4-10.2); CHLORIDE 103 mmol/L (98-107); CO2 26 mmol/L (22-28); GLUCOSE,RANDOM 150 mg/dl (74-106); POTASSIUM 4.1 mmol/L (3.5-5.1); SODIUM 138 mmol/L (136-145)
[2017-07-21] MEDS: ASPIRIN 81 MG CHEWABLE TABLETS PO SCH (10:05)
[2017-07-21] MEDS: CITALOPRAM HYDROBROMIDE 20 MG TABLET (FP) PO SCH (10:05)
[2017-07-21] MEDS: CARVEDILOL 25 MG TABLET (FP) PO SCH ×2 (10:05→21:08)
--- NOTE | 2017-07-21 10:05 | PN ---
Physical Exam: SUBJECTIVE: Patient seen and examined No pain constipation resolved OBJECTIVE: Vital Signs Period Temp Pulse Resp BP Sys/Rodriguez Pulse Ox Last 24 Hr 97.3 F-98.6 F 58-64 18-19 121-156/51-55 96-97 Eyes: Yes: PERRL HENT: Yes: Atraumatic Neck: Yes: Supple Respiratory: Yes: Diminished Gastrointestinal: Yes: Normal Bowel Sounds, Soft. No: Tenderness Cardiovascular: Yes: Regular Rate and Rhythm JVD: No Carotid Bruit: No PMI: Non-Displaced Heart Sounds: Yes: S1, S2. No: Gallop Murmur: Yes: Systolic Murmur, Grade 1 Edema: No Laboratory Results - last 24 hr 07/21/17 07/21/17 07:40 07:40 WBC 6.7 RBC 3.12 L Hgb 8.9 L Hct 27.0 L MCV 86.8 MCH 28.5 MCHC 32.8 RDW 15.5 Plt Count 255 MPV 7.3 L Neutrophils % 79.9 Lymphocytes % 8.0 Monocytes % 8.2 Eosinophils % 3.2 Basophils % 0.7 Sodium 138 Potassium 4.1 Chloride 103 Carbon Dioxide 26 Anion Gap 9 BUN 88 H Creatinine 4.0 H Creat Clearance w eGFR POC Glucometer Random Glucose 150 H D Calcium 8.3 L Total Bilirubin AST ALT Alkaline Phosphatase Creatine Kinase Troponin I Total Protein Albumin Active Medications Generic Name Dose Route Start Last Admin Trade Name Freq PRN Reason Stop Dose Admin Aspirin 81 mg 07/19/17 10:00 07/20/17 09:41 Asa - PO 81 mg DAILY ROSIE Administration Atorvastatin Calcium 20 mg 07/19/17 10:00 07/20/17 09:41 Lipitor - PO 20 mg DAILY ROSIE Administration Bethanechol Chloride 10 mg 07/20/17 14:00 07/21/17 06:42 Urecholine - PO 10 mg TID ROSIE Administration Carvedilol 25 mg 07/19/17 10:00 07/20/17 21:40 Coreg - PO 25 mg BID ROSIE Administration Cholecalciferol 1,000 unit 07/19/17 10:00 07/20/17 09:40 Vitamin D3 - PO 1,000 unit DAILY ROSIE Administration Citalopram Hydrobromide 20 mg 07/19/17 10:00 07/20/17 09:40 Celexa - PO 20 mg DAILY ROSIE Administration Clopidogrel Bisulfate 75 mg 07/19/17 22:00 07/20/17 21:39 Plavix - PO 75 mg HS ROSIE Administration Docusate Sodium 100 mg 07/19/17 03:22 Colace - PO TID PRN CONSTIPATION Famotidine 20 mg 07/19/17 10:00 07/20/17 21:39 Pepcid - PO 20 mg BID ROSIE Administration Ferrous Sulfate 325 mg 07/19/17 10:00 07/20/17 09:41 Feosol - PO 325 mg DAILY ROSIE Administration Furosemide 40 mg 07/19/17 06:00 07/21/17 06:41 Lasix - PO 40 mg BIDLASIX ROSIE Administration Gabapentin 100 mg 07/19/17 10:00 07/20/17 09:41 Neurontin - PO 100 mg DAILY ROSIE Administration Insulin Aspart 1 vial 07/19/17 07:00 07/21/17 06:42 Novolog Vial Sliding Scale - SQ 2 units TIDAC ROSIE Administration Protocol Insulin Detemir 15 units 07/19/17 22:00 07/20/17 21:40 Levemir Vial SQ 15 units HS ROSIE Administration Lidocaine 1 patch 07/19/17 10:00 07/20/17 09:41 Lidoderm Patch - TP 1 patch DAILY ROSIE Administration Miscellaneous 1 each 07/19/17 22:00 07/20/17 21:40 Lidoderm Patch Removal MC 1 each DAILY@2200 ROSIE Administration Nifedipine 30 mg 07/20/17 11:15 07/20/17 12:48 Procardia Xl - PO 30 mg DAILY ROSIE Administration Polyethylene Glycol 17 gm 07/21/17 10:00 Miralax (For Daily Use) - PO DAILY ROSIE Tamsulosin HCl 0.8 mg 07/19/17 22:00 07/20/17 21:40 Flomax - PO 0.8 mg HS ROSIE Administration ASSESSMENT/PLAN: 1. Acute on Chronic Renal Failure - likely secondary to neurogenic bladder/ BPH / urinary retention and underlyiong DM nephropathy - obstruction is now relieved and Witt catheter should remain in place . Despite this his creatinine has increased today . This could be due to diuretics . - witt to remain inserted - urodynamics as outpatient - fomax PO - decrease dose of lasix to 40 daily in view of worsening cretinine - nephrology evaluation 2. Constipation- resolved , patient had BM this morning - PRN laxatives 3. NSTEMI / Demand ischemia - elevated troponin upon presentation in the setting of acute renal failure. History of CAD . Remains asymptomatic. No acute EKG changes. - Continue medical management and optimization of BP - c/w carvedilol / ASA/ statins/ plavix - optimize DM control and continue DM diet 4. DM - uncontrolled - will avoid increasing lantus in the setting of worsening creatinine - manage with sliding scale for now 5. HTN - better controlled Visit type - Emergency Visit Emergency Visit: Yes ED Registration Date: 07/18/17 Care time: The patient presented to the Emergency Department on the above date and was hospitalized for further evaluation of their emergent condition. - New Patient This patient is new to me today: Yes Date on this admission: 07/21/17 - Critical Care Critical Care patient: No - Discharge Referral Referred to [facility] Med P.C.: No
[2017-07-21] MEDS: CHOLECALCIFEROL (VITAMIN D3) 1,000 UNIT TABLET (FP) PO SCH (10:06)
[2017-07-21] MEDS: FAMOTIDINE 20 MG TABLET PO SCH ×2 (10:06→21:08)
[2017-07-21] MEDS: GABAPENTIN 100 MG CAPSULE (FP) PO SCH (10:06)
[2017-07-21] MEDS: FERROUS SO4 325 MG TABLET (FP) PO SCH (10:06)
[2017-07-21] MEDS: NIFEdipine E.R. 30 MG TABLET (FP) PO SCH (10:06)
[2017-07-21] MEDS: ATORVASTATIN CA 20 MG TABLET (FP) PO SCH (10:06)
[2017-07-21] MEDS: LIDOCAINE 5% TOPICAL PATCH TP SCH (10:07)
[2017-07-21] MEDS: POLYETHYLENE GLYCOL 3350 119 GM BTL PO SCH (10:07)
--- NOTE | 2017-07-21 12:26 | PN ---
Progress Note, Physician Chief Complaint: Feels better History of Present Illness: Patient was seen and examined. Awake and alert. Chart was reviewed Denies chest pain, SOB or palpitations - Current Medication List Current Medications: Active Medications Aspirin (Asa -) 81 mg PO DAILY [facility] Last Admin: 07/21/17 10:05 Dose: 81 mg Atorvastatin Calcium (Lipitor -) 20 mg PO DAILY [facility] Last Admin: 07/21/17 10:06 Dose: 20 mg Bethanechol Chloride (Urecholine -) 10 mg PO TID [facility] Last Admin: 07/21/17 06:42 Dose: 10 mg Carvedilol (Coreg -) 25 mg PO BID [facility] Last Admin: 07/21/17 10:05 Dose: 25 mg Cholecalciferol (Vitamin D3 -) 1,000 unit PO DAILY [facility] Last Admin: 07/21/17 10:06 Dose: 1,000 unit Citalopram Hydrobromide (Celexa -) 20 mg PO DAILY [facility] Last Admin: 07/21/17 10:05 Dose: 20 mg Clopidogrel Bisulfate (Plavix -) 75 mg PO HS [facility] Last Admin: 07/20/17 21:39 Dose: 75 mg Docusate Sodium (Colace -) 100 mg PO TID PRN PRN Reason: CONSTIPATION Famotidine (Pepcid -) 20 mg PO BID [facility] Last Admin: 07/21/17 10:06 Dose: 20 mg Ferrous Sulfate (Feosol -) 325 mg PO DAILY [facility] Last Admin: 07/21/17 10:06 Dose: 325 mg Furosemide (Lasix -) 40 mg PO DAILY [facility] Gabapentin (Neurontin -) 100 mg PO DAILY [facility] Last Admin: 07/21/17 10:06 Dose: 100 mg Insulin Aspart (Novolog Vial Sliding Scale -) 1 vial SQ TIDAC [facility] PRN Reason: Protocol Last Admin: 07/21/17 11:38 Dose: 4 units Insulin Detemir (Levemir Vial) 15 units SQ HS [facility] Last Admin: 07/20/17 21:40 Dose: 15 units Lidocaine (Lidoderm Patch -) 1 patch TP DAILY [facility] Last Admin: 07/21/17 10:07 Dose: 1 patch Miscellaneous (Lidoderm Patch Removal) 1 each MC DAILY@2200 [facility] Last Admin: 07/20/17 21:40 Dose: 1 each Nifedipine (Procardia Xl -) 30 mg PO DAILY [facility] Last Admin: 07/21/17 10:06 Dose: 30 mg Polyethylene Glycol (Miralax (For Daily Use) -) 17 gm PO DAILY [facility] Last Admin: 07/21/17 10:07 Dose: Not Given Tamsulosin HCl (Flomax -) 0.8 mg PO HS [facility] Last Admin: 07/20/17 21:40 Dose: 0.8 mg - Objective Vital Signs: Vital Signs Temperature 97.8 F 07/21/17 06:00 Pulse Rate 58 L 07/21/17 06:00 Respiratory Rate 18 07/21/17 08:49 Blood Pressure 121/51 07/21/17 06:00 O2 Sat by Pulse Oximetry (%) 97 07/21/17 08:49 Constitutional: Yes: Well Nourished Eyes: Yes: PERRL HENT: Yes: Atraumatic Neck: Yes: Supple Cardiovascular: Yes: Regular Rate and Rhythm, S1, S2 Respiratory: Yes: CTA Bilaterally Gastrointestinal: Yes: Normal Bowel Sounds, Soft. No: Tenderness Edema: No Additional Findings/Remarks: - Review of Systems Constitutional: denies: Chills, Fever Cardiovascular: denies: Chest Pain, Palpitations, Shortness of Breath Respiratory: denies: Cough, Hemoptysis, Orthopnea, PND, SOB, SOB on Exertion Gastrointestinal: reports: Constipation, Vomiting. denies: Abdominal Pain, Diarrhea, Dysphagia, Melena, Nausea, Rectal Bleeding Genitourinary: denies: Dysuria, Hematuria Neurological: denies: Dizziness, Headache, Seizure, Syncope Labs: CBC, BMP 07/21/17 07:40 07/21/17 07:40 Problem List - Problems (1) CAD (coronary artery disease) Code(s): I25.10 - ATHSCL HEART DISEASE OF [place] CORONARY ARTERY W/O ANG PCTRS Qualifiers: Coronary Disease-Associated Artery/Lesion type: [place] artery [place] vs. transplanted heart: [place] heart Associated angina: without angina Qualified Code(s): I25.10 - Atherosclerotic heart disease of [place] coronary artery without angina pectoris (2) HTN (hypertension) Code(s): I10 - ESSENTIAL (PRIMARY) HYPERTENSION Qualifiers: Hypertension type: essential hypertension Qualified Code(s): I10 - Essential (primary) hypertension (3) Hypercholesterolemia Code(s): E78.00 - PURE HYPERCHOLESTEROLEMIA, UNSPECIFIED (4) Constipation Code(s): K59.00 - CONSTIPATION, UNSPECIFIED Qualifiers: Constipation type: unspecified constipation type Qualified Code(s): K59.00 - Constipation, unspecified (5) ESRD (end stage renal disease) Code(s): N18.6 - END STAGE RENAL DISEASE (6) Urinary retention Code(s): R33.9 - RETENTION OF URINE, UNSPECIFIED (7) CKD (chronic kidney disease) Code(s): N18.9 - CHRONIC KIDNEY DISEASE, UNSPECIFIED Qualifiers: Chronic kidney disease stage: unspecified stage Qualified Code(s): N18.9 - Chronic kidney disease, unspecified (8) Diabetes Code(s): E11.9 - TYPE 2 DIABETES MELLITUS WITHOUT COMPLICATIONS Qualifiers: 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 type: type 2 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 complication status: with kidney complications 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 complication detail: with nephropathy 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 half-way insulin use: unspecified half-way insulin use status Qualified Code(s): E11.21 - Type 2 diabetes mellitus with diabetic nephropathy (9) Hx of CABG Code(s): Z95.1 - PRESENCE OF AORTOCORONARY BYPASS GRAFT (10) PAD (peripheral artery disease) Code(s): I73.9 - PERIPHERAL VASCULAR DISEASE, UNSPECIFIED (11) Lumbar back pain Code(s): M54.5 - LOW BACK PAIN (12) Acute on chronic diastolic heart failure Code(s): I50.33 - ACUTE ON CHRONIC DIASTOLIC (CONGESTIVE) HEART FAILURE (13) Acute on chronic renal failure Code(s): N17.9 - ACUTE KIDNEY FAILURE, UNSPECIFIED; N18.9 - CHRONIC KIDNEY DISEASE, UNSPECIFIED Assessment/Plan 1. CAD, s/p CABG, angina pectoris - demand ischemia 2. Hypertension 3. Hypercholesterolemia 4. 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 5. PAD s/p bypass surgery 6. CKD 7. Anemia PLAN: 1. Would favor optimizing medical therapy. 2. Continue Carvedilol 3. Continue ASA and Plavix 4. Continue Atorvastatin 5. 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 Ángel Murguia ( [facility]) Further plans are to follow Magno Hernandez MD
[2017-07-21] MEDS: TAMSULOSIN HCL 0.4 MG CAP.ER.24H (FP) PO SCH (21:08)
[2017-07-21] MEDS: CLOPIDOGREL BISULFATE 75 MG TABLET (FP) PO SCH (21:08)
[2017-07-21] MEDS: INSULIN DETEMIR 100 UNITS/ML MDV SQ SCH (21:09)
[2017-07-21] MEDS: LIDOCAINE PATCH REMOVAL MC SCH (21:09)
[2017-07-22 06:14] VITALS: BP 134/51; PULSE 74; TEMP 97.6
[2017-07-22] MEDS ORDERED: PT OWN MED DRAWER 7, Y5N ONE (06:18)
[2017-07-22] MEDS: BETHANECHOL CHLORIDE 10 MG TABLET PO SCH (06:20)
[2017-07-22] MEDS ORDERED: INSULIN (NOVOLOG) ASPART 100 UNITS/ML 10ML VIAL ONE (06:54)
[2017-07-22] MEDS: INSULIN SLIDING SCALE (NOVOLOG) 1 VIAL SQ SCH (06:55)
[2017-07-22 09:07] LABS: ANION GAP 10 (8-16); BLOOD UREA NITROGEN 95 mg/dl (7-18); CALCIUM 8.1 mg/dl (8.4-10.2); CHLORIDE 103 mmol/L (98-107); CO2 23 mmol/L (22-28); CREATININE 4.3 mg/dl (0.6-1.3); GLUCOSE,RANDOM 173 mg/dl (74-106); POTASSIUM 4.5 mmol/L (3.5-5.1); SODIUM 136 mmol/L (136-145)
--- NOTE | 2017-07-22 09:20 | DS ---
Physical Exam: SUBJECTIVE: Patient seen and examined. Had a BM this morning but complains that it is still "hard." No abdominal pain. OBJECTIVE: Vital Signs Period Temp Pulse Resp BP Sys/Rodriguez Pulse Ox Last 24 Hr 97.6 F-98.4 F 55-74 18-18 117-136/47-55 96-98 PHYSICAL EXAM GENERAL: The patient is awake, alert, and fully oriented, in no acute distress. HEAD: Normal with no signs of trauma. EYES: PERRL, extraocular movements intact, sclera anicteric, conjunctiva clear. ENT: Ears normal, nares patent, oropharynx clear without exudates, moist mucous membranes. NECK: Trachea midline, full range of motion, supple. LUNGS: Breath sounds equal, clear to auscultation bilaterally, no wheezes, no crackles, no accessory muscle use. HEART: Regular rate and rhythm, S1, S2 without murmur, rub or gallop. ABDOMEN: Soft, nontender, nondistended, normoactive bowel sounds, no guarding, no rebound, no hepatosplenomegaly, no masses. EXTREMITIES: 2+ pulses, warm, well-perfused, no edema. NEUROLOGICAL: Cranial nerves II through XII grossly intact. Normal speech, gait not observed. PSYCH: Normal mood, normal affect. SKIN: Warm, dry, normal turgor, no rashes or lesions noted. LABS Laboratory Results - last 24 hr 07/21/17 07/21/17 07/21/17 11:36 16:33 20:59 Sodium Potassium Chloride Carbon Dioxide Anion Gap BUN Creatinine POC Glucometer 246 271 178 Random Glucose Calcium 07/22/17 07/22/17 06:00 06:22 Sodium 136 Potassium 4.5 Chloride 103 Carbon Dioxide 23 Anion Gap 10 BUN 95 H Creatinine 4.3 H POC Glucometer 181 Random Glucose 173 H Calcium 8.1 L HOSPITAL COURSE: This is a 71 year old male with CAD (s/p stent x2, CABG), PAD, HTN, HLD, CKD 4, and chronic back pain (s/p laminectomy, fusions), and chronic constipation. He has had three recent hospital admissions: 06/11-06/15 for anemia and CHIARA-on CKD, 07/09-07/12 with SOB and CHIARA-on CKD, and 07/14-07/16 with intractable back pain. He presented to the ED on 07/18 with urinary retention and constipation. As During further workup, patient was found to have an elevated Troponin I of 1.07. He did not have chest pain, palpitations, or SOB on exam. He was admitted to telemetry and remained asymptomatic. Troponin peaked at 2.74 and then trended down to 0.71. Cardiology was consulted and determined no further intervention was necessary, particularly in light of CKD. Microbiology 07/18/17 16:30 Urine - Urine Witt Urine Culture - Final NO GROWTH OBTAINED IMAGING ekg nsr 07/19, nsr w/lvh chest xray: no infilitrate no effusions abd xray: some small bowel distention consistent with constipation ASSESSMENT/PLAN: 1) cardiovascular elevated troponin - trended down - medical management only per cardiology - continue plavix, lipitor and asa - echo 07/22, lv, severe pulmonary hypertension, severe TR - pt appears euvolemic on exam, continue Lasix 40mg once daily 2) renal chronic kidney disease - creatine 3.8 unchanged from baseline of 3.7 - evaluated by nephrology team; creatinine stable, no further intervention necessary 3) musculoskeletal chronic lower back pain - avoid nsaids, continue neurontin and lidoderm patch 4) niddm - continue home dose lantus, fingersticks achs - diabetic diet 5) chronic urinary retention - evaluated by neurology; likely secondary to neurogenic bladder - continue witt cather and flomax - will require outpatient follow up with urology 6) heme normocytic anemia -hgb 8.8 baseline 10, secondary to anemia of chronic disease - continue iron supplements, strict monitoring, will transfuse if less than 7. 7) GI constipation - mag citrate and enema ordered, miralax daily f/e/n - diabetic/low sodium renal diet - replete lytes prn For discharge to [facility] today. Date of Admission:07/18/17 Date of Discharge: 07/22/17 Minutes to complete discharge: 35 Discharge Summary Reason For Visit: CONSTIPATION/URINE RETENTION/DIABETES MELLITUS Current Active Problems Anemia (Acute) CAD (coronary artery disease) (Acute) DVT prophylaxis (Acute) Demand ischemia (Acute) Elevated troponin I level (Acute) HTN (hypertension) (Acute) Hypercholesterolemia (Acute) Neurogenic bladder (Acute) Condition: Improved - Instructions Diet, Activity, Other Instructions: Continue daily Miralax Keep Witt catheter in place until followup with a urologist can be arranged Return for weakness/numbness in the legs or incontinence of stool as these could be signs of a serious condition Referrals: Bernardo Del Valle MD [Primary Care Provider] - Steven Elizabeth MD [Staff Physician] - Disposition: [facility] - Home Medications Comprehensive Discharge Medication List: Ambulatory Orders Cholecalciferol (Vitamin D3) [Vitamin D3] 1,000 unit PO DAILY tablet 09/02/12 Clopidogrel Bisulfate [Clopidogrel] 75 mg PO HS #90 tablet 01/10/16 Tamsulosin HCl 0.8 mg PO HS 05/19/16 Aspirin [ASA -] 81 mg PO DAILY 06/11/17 Carvedilol 12.5 mg PO BID 06/11/17 Famotidine 20 mg PO ASDIR 06/11/17 Ferrous Sulfate [Feosol] 325 mg PO DAILY ud 07/12/17 Furosemide [Lasix -] 40 mg PO BID #60 tablet 07/12/17 Docusate Sodium [Colace -] 100 mg PO TID PRN 07/14/17 Insulin Glargine,Hum.rec.anlog [Lantus Solostar PEN -] 15 units SQ HS 07/14/17 Insulin Sliding Scale [Novolog Vial Sliding Scale -] 1 vial SQ TIDAC units 05/22 Lidocaine 5% Patch [Lidoderm Patch -] 1 patch TP DAILY #7 patch 07/15/17 This patient is new to me today: Yes Date on this admission: 07/22/17 Emergency Visit: Yes ED Registration Date: 07/18/17 Care time: The patient presented to the Emergency Department on the above date and was hospitalized for further evaluation of their emergent condition. Critical Care patient: No - Discharge Referral Referred to [facility] Med [facility] No
[2017-07-22] MEDS: FAMOTIDINE 20 MG TABLET PO SCH (09:57)
[2017-07-22] MEDS: FERROUS SO4 325 MG TABLET (FP) PO SCH (09:57)
[2017-07-22] MEDS: GABAPENTIN 100 MG CAPSULE (FP) PO SCH (09:58)
[2017-07-22] MEDS: CHOLECALCIFEROL (VITAMIN D3) 1,000 UNIT TABLET (FP) PO SCH (09:58)
[2017-07-22] MEDS: ATORVASTATIN CA 20 MG TABLET (FP) PO SCH (09:58)
[2017-07-22] MEDS: CARVEDILOL 25 MG TABLET (FP) PO SCH (09:58)
[2017-07-22] MEDS: NIFEdipine E.R. 30 MG TABLET (FP) PO SCH (09:58)
[2017-07-22] MEDS: CITALOPRAM HYDROBROMIDE 20 MG TABLET (FP) PO SCH (09:58)
[2017-07-22] MEDS: LIDOCAINE 5% TOPICAL PATCH TP SCH (09:58)
[2017-07-22] MEDS: ASPIRIN 81 MG CHEWABLE TABLETS PO SCH (09:58)
[2017-07-22] MEDS ORDERED: FUROSEMIDE 40 MG TABLET (FP) PO SCH (10:00)
[2017-07-22] MEDS: POLYETHYLENE GLYCOL 3350 119 GM BTL PO SCH (10:01)
--- NOTE | 2017-07-22 17:31 | EKG ---
Test Reason : Blood Pressure : / mmHG Vent. Rate : 059 BPM Atrial Rate : 170 BPM P-R Int : 190 ms QRS Dur : 100 ms QT Int : 456 ms P-R-T Axes : 054 -11 167 degrees QTc Int : 451 ms SINUS TACHYCARDIA LEFT VENTRICULAR HYPERTROPHY WITH REPOLARIZATION ABNORMALITY POOR R WAVE PROGRESSION ABNORMAL ECG WHEN COMPARED WITH ECG OF 19-JUL-2017 03:22, Criteria for septal infarct is no longer present Confirmed by OMKAR DEL TORO MD ([id number] on 07/22/2017 5:30:56 PM Referred By: VERONIKA AYALA Confirmed By:OMKAR DEL TORO MD
== END 2017-07-22 11:19 | DRG 281 ==
LOC: SUPCPDRO 15:29 → FER 15:29 → FM/S 20:11 → UNDOADMIN 07-19 00:38 → FM/S 07-19 00:38
PROVIDERS: ADMIT Internal Medicine; ATTEND Registered Nurse Emergency
DX: I21.A1 Myocardial infarction type 2 (principal); I13.0 Hypertensive heart and chronic kidney disease with heart failure and stage 1 through stage 4 chronic kidney disease, or unspecified chronic kidney disease; N18.4 Chronic kidney disease, stage 4 (severe); N17.9 Acute kidney failure, unspecified; I50.32 Chronic diastolic (congestive) heart failure; I25.10 Atherosclerotic heart disease of native coronary artery without angina pectoris; Z95.1 Presence of aortocoronary bypass graft; E11.21 Type 2 diabetes mellitus with diabetic nephropathy; K59.00 Constipation, unspecified; E78.00 Pure hypercholesterolemia, unspecified; Z79.4 Long term (current) use of insulin; E66.9 Obesity, unspecified; R33.9 Retention of urine, unspecified; E11.22 Type 2 diabetes mellitus with diabetic chronic kidney disease; D63.1 Anemia in chronic kidney disease; N31.9 Neuromuscular dysfunction of bladder, unspecified; I27.20 Pulmonary hypertension, unspecified; I36.1 Nonrheumatic tricuspid (valve) insufficiency; M54.5 Low back pain; D64.9 Anemia, unspecified; E11.65 Type 2 diabetes mellitus with hyperglycemia; Z68.27 Body mass index [BMI] 27.0-27.9, adult
CPT/HCPCS: 36415; 71010-TC; 72100-TC; 72131-TC; 74020-TC; 80048; 80053; 81003; 81015; 82550; 82553; 83735; 83880; 84100; 84484; 85025; 87086; 93005; 96374; 97116-GP; 97162-GP; 99283-25; G0378

== ENCOUNTER 2017-07-23 07:00 | Observation (INO) | payer OTHER, MEDICARE ==
[2017-07-23 07:08] VITALS: BMI 26.8
--- NOTE | 2017-07-23 08:20 | PDOC ---
History of Present Illness - General Chief Complaint: Rectal Bleed Stated Complaint: GI BLEED Time Seen by Provider: 07/23/17 07:09 History Source: Patient Exam Limitations: No Limitations - History of Present Illness Initial Comments: 07/23/17 08:14 The patient is a 71M with a PMH of CAD s/p stents with CABG, PAD, HTN, HLD, CKD 4, chronic anemia and constipation who presented to the ED after having 2 bouts of coffee ground emesis at 0500 this morning. [facility], recently discharged from our facility yesterday, when he felt a heartburn sensation overnight and was given a liquid. He has had both upper and lower GI scopes with nothing abnormal found on upper GI scope and polyps removed from colonoscopy. He denies LOC, CP, SOB, abd pain, headache, changes in vision. He only complains of generalized weakness. Soc: quit smoking 30 years ago, occasional drinking, no drugs Allergies: listed Past History - Past Medical History Allergies/Adverse Reactions: Allergies Allergy/AdvReac Type Severity Reaction Status Date / Time tramadol Allergy Verified 07/23/17 07:06 acetaminophen [From Percocet] AdvReac Intermediate nausea Verified 07/23/17 07: 06 oxycodone HCl [From Percocet] AdvReac Intermediate nausea Verified 07/23/17 07: 06 ticagrelor [From BRILINTA] AdvReac Intermediate Verified 07/23/17 07:06 Home Medications: Ambulatory Orders Cholecalciferol (Vitamin D3) [Vitamin D3] 1,000 unit PO DAILY tablet 09/02/12 Clopidogrel Bisulfate [Clopidogrel] 75 mg PO HS #90 tablet 01/10/16 Tamsulosin HCl 2 cap PO HS 05/19/16 Aspirin [ASA -] 81 mg PO DAILY 06/11/17 Carvedilol 12.5 mg PO BID 06/11/17 Ferrous Sulfate [Feosol] 325 mg PO DAILY ud 07/12/17 Docusate Sodium [Colace -] 300 mg PO HS 07/14/17 Insulin Glargine,Hum.rec.anlog [Lantus Solostar PEN -] 15 units SQ HS 07/14/17 Lidocaine 5% Patch [Lidoderm -] 1 patch TP DAILY #7 patch 07/15/17 Nifedipine ER [Procardia XL -] 30 mg PO DAILY tab.er.24 07/22/17 Polyethylene Glycol 3350 [Miralax 119 gm Btl -] 17 gm PO DAILY bottle 07/22/17 Acetaminophen [Non-Aspirin Pain Relief] 650 mg PO Q6H PRN 07/23/17 Famotidine 2.5 ml PO DAILY PRN 07/23/17 Furosemide [Lasix -] 40 mg PO BID 07/23/17 Insulin Sliding Scale [Novolog Vial Sliding Scale -] 1 vial SQ TIDAC PRN Simvastatin 40 mg PO HS 07/23/17 Anemia: Yes (taking iron) Asthma: No Cancer: No Cardiac Disorders: Yes (CAD, CABG, stents) CVA: No COPD: No CHF: No DVT: No Dementia: No Diabetes: Yes (x41 yrs) GI Disorders: Yes (GERD, G-I bleed) Disorders: No HTN: Yes Hypercholesterolemia: Yes Liver Disease: No Seizures: No Thyroid Disease: No - Surgical History Abdominal Surgery: Yes (Left Inguinal Hernia Repair) Appendectomy: No Cardiac Surgery: Yes (Bypass Surgery 18 yrs ago, Followed by Stents placement x2 ) Cholecystectomy: No Lung Surgery: No Neurologic Surgery: No Orthopedic Surgery: Yes (Laminectomy) - Immunization History Immunization Up to Date: Yes - Suicide/Smoking/Psychosocial Hx Smoking History: Never smoked Have you smoked in the past 12 months: No If you are a former smoker, when did you quit?: 30YRS Information on smoking cessation initiated: No Hx Alcohol Use: No Drug/Substance Use Hx: No Substance Use Type: None Hx Substance Use Treatment: No Review of Systems - Review of Systems Able to Perform ROS?: Yes Is the patient limited Sinhala proficient: No Constitutional: No: Chills, Fever HEENTM: No: Blurred Vision, Recent change in vision Respiratory: No: Cough, Shortness of Breath, SOB at Rest Cardiac (ROS): No: Chest Pain, Lightheadedness, Syncope ABD/GI: Yes: Constipated, Vomiting. No: Nausea Musculoskeletal: Yes: Back Pain (chronic), Muscle Pain Integumentary: No: Bruising, Rash Neurological: Yes: Weakness (generalized). No: Headache, Numbness Hematologic/Lymphatic: Yes: Anemia (chronic). No: Easy Bleeding *Physical Exam - Vital Signs Last Vital Signs Temp Pulse Resp BP Pulse Ox 98.1 F 59 L 14 144/66 95 07/23/17 07:06 07/23/17 07:06 07/23/17 07:06 07/23/17 07:06 07/23/17 07:06 - Physical Exam Comments: 07/23/17 08:19 GENERAL: Well developed, well nourished. Awake and alert. No acute distress. Pale. HEENT: Normocephalic, atraumatic. Hearing grossly normal. Moist mucous membranes. PERRLA, EOMI. No conjunctival pallor. Sclera are non-icteric. Oropharynx is clear. CARDIOVASCULAR: Regular rate and rhythm. No murmurs, rubs, or gallops. Distal pulses are 2+ and symmetric. PULMONARY: No evidence of respiratory distress. Lungs clear to auscultation bilaterally. No wheezing, rales or rhonchi. ABDOMINAL: Soft. Non-tender. Non-distended. No rebound or guarding. No organomegaly. Normoactive bowel sounds. MUSCULOSKELETAL: Normal range of motion at all joints. No bony deformities or tenderness. EXTREMITIES: No cyanosis. No clubbing. No edema. No calf tenderness. SKIN: Warm and dry. Normal capillary refill. No rashes. No jaundice. NEUROLOGICAL: Alert, awake, appropriate. Cranial nerves 2-12 intact. No motor deficits in the in face, upper extremities and lower extremities. Normal speech. Gait is unobserved. PSYCHIATRIC: Cooperative. Good eye contact. Appropriate mood and affect. Heart Score/ECG Review #1 ECG reviewed & interpreted by me at: 08:21 General ECG Interpretation: Sinus Rhythm, Normal Rate, Normal Intervals, No acute ischemic changes Compared to previous ECG there are: Changes noted (new q waves in v1 and v2; likely old septal infarct) 07/23/17 08:22 New q wave changes in V1 and V2 Rate 60 QRS 96 QTc 446 ED Treatment Course - LABORATORY CBC & Chemistry Diagram: 07/24/17 05:05 07/23/17 08:15 - RADIOLOGY Radiology Studies Ordered: Category Date Time Status CHEST X-RAY PORTABLE* [RAD] Stat Radiology 07/23/17 07:41 Ordered Medical Decision Making - Medical Decision Making 07/23/17 08:23 The patient is a 71M with an extensive PMH who presents to the ED after 2 bouts of coffee ground emesis. The patient was recently discharged from our facility after having an increase in his troponins, which eventually were downtrending, and sent to [facility]. I am concerned from an UGIB, as well as ACS. EKG shows new q waves in V1 and V2 concerning for an old infarct. Labs pending: - CBC, CMP, PT, PTT, cardiac profile - EKG, CXR Will reassess when labs/imaging return. 07/23/17 08:30 Stool occult negative. 07/23/17 08:56 Trop 0.97. Will discuss results with attending. 07/23/17 09:33 CXR negative. Hgb stable at 8.9, CHIRAA worsening. Will admit to tele-obs for cardiac workup. Will consult Dr. Fernandez for nephrology. *DC/Admit/Observation/Transfer Diagnosis at time of Disposition: Troponin level elevated Anemia Qualifiers: Anemia type: iron deficiency Iron deficiency anemia type: other iron deficiency Qualified Code(s): D50.8 - Other iron deficiency anemias - Discharge Dispostion Condition at time of disposition: Stable Admit: Yes - Referrals - Patient Instructions - Post Discharge Activity
[2017-07-23 08:27] LABS: BASO % 0.7 % (0-2.0); EOS % 1.5 % (0-4.5); MCH 28.4 pg (25.7-33.7); MCHC 33.1 g/dl (32.0-35.9); MEAN CELL VOLUME 85.8 fl (80-96); MEAN PLT VOLUME 6.8 fl (7.5-11.1); PLATELET COUNT 231 K/MM3 (134-434); RDW 16.3 % (11.9-15.9); WHITE BLOOD COUNT 7.3 K/mm3 (4.0-10.0)
[2017-07-23 08:39] LABS: ANION GAP 11 (8-16); BILIRUBIN,TOTAL 0.3 mg/dL (0.2-1.0); CALCIUM 8.5 mg/dL (8.5-10.1); CO2 25 mmol/L (21-32); CREATININE 4.7 mg/dL (0.7-1.3); GLUCOSE,RANDOM 255 mg/dL (74-106); SGOT/AST 11 U/L (15-37); SGPT/ALT 25 U/L (12-78); TOT PROT 6.6 g/dl (6.4-8.2)
[2017-07-23 08:40] LABS: ALK PHOS 126 U/L (45-117)
[2017-07-23 08:42] LABS: INR 1.27 (0.82-1.09); PROTHROMBIN TIME (PATIENT) 14.3 SEC (9.98-11.88)
[2017-07-23 08:45] LABS: ACTIVATED PTT 31.9 SECONDS (26.9-34.4)
--- NOTE | 2017-07-23 08:54 | PDOC ---
Attending Attestation - Resident Resident Name: Ángel Che - ED Attending Attestation I have performed the following: I have examined & evaluated the patient, The case was reviewed & discussed with the resident, I agree w/resident's findings & plan, Exceptions are as noted - HPI HPI: 07/23/17 08:53 71-year-old male with multiple medical problems presents from rehabilitation facility complaining of heartburn followed by 2 episodes of dark vomit this morning. Patient was recently discharged yesterday after 4 day hospitalization for elevated troponins attributed to his chronic kidney disease. Patient reports lightheadedness with this episode, now improved. - Physicial Exam PE: 07/23/17 09:00 VSS, HR 60 pale skin abdomen benign/soft neuro nonfocal - Medical Decision Making 07/23/17 09:01 Patient seen and evaluated with the resident. I agree with the overall evaluation, assessment, and management with the following summary of visit: 71-year-old male with recent hospitalization and multiple medical problems including CK D and heart disease presents with episode of heartburn/chest discomfort followed by 2 episodes of dark vomiting. Symptoms now improved, vital signs within normal limits. EKG done immediately on arrival, some concern for Q waves in the septal leads that were not present on prior admission. Labs, EKG Chest x-ray Transfuse as needed, check troponin given recent elevated levels Reassess, likely readmission
[2017-07-23 08:56] LABS: TROPONIN I 0.97 ng/ml (0.00-0.05)
[2017-07-23] MEDS ORDERED: FAMOTIDINE PO PRN (10:53)
[2017-07-23] MEDS ORDERED: DOCUSATE SODIUM 100 MG CAPSULE (FP) PO PRN (10:53)
--- NOTE | 2017-07-23 10:53 | HP ---
CHIEF COMPLAINT: vomiting coffee ground emesis PCP: HISTORY OF PRESENT ILLNESS: Patient is a 71 year old male with a significant past medical history of CKD stage 4, CAD s/p CABG (s/p stent x2, CABG), [place], diabetes, chronic back pain (s/ p laminectomy, fusions) and chronic constipation. He presented to the ER from rehab facility after complaining of heartburn followed by 2 episodes of dark vomitus this morning. Patient was recently discharged from [facility] yesterday after 4 day hospitalization for elevated troponins attributed to his chronic kidney disease. On admission patient reported feeling lightheaded, now improved. Patient was recently admitted on 07/18/17 with urinary retention and constipation and was found to have an elevated troponin of 1.07. Troponin peaked at 2.74 and then trended down to 0.71. Cardiology followed patient during hospitalization and no further intervention was necessary due to CKD. Upon discharge, patient was to follow up with electrical tech/project manager Dr. Ángel Murguia. ER course was notable for: (1) hmg/hct 8.9/26.8 (2) trop 0.97 (3) bun 94/4.7 (4) EKG ST with 2nd degree AV block with 3.1 AV conduction Recent Travel: none PAST MEDICAL HISTORY: CKD stage 4, CAD s/p CABG, MN and diabetes PAST SURGICAL HISTORY: Social History: Smoking: n/a Alcohol: n/a Drugs: n/a Family History: Allergies tramadol Allergy (Verified 07/23/17 07:06) acetaminophen [From Percocet] Adverse Reaction (Intermediate, Verified 07/23/17 07:06) nausea oxycodone HCl [From Percocet] Adverse Reaction (Intermediate, Verified 07/23/17 07:06) nausea ticagrelor [From BRILINTA] Adverse Reaction (Intermediate, Verified 07/23/17 07: 06) HOME MEDICATIONS: Home Medications Medication Instructions Recorded Cholecalciferol (Vitamin D3) 1,000 unit PO DAILY tablet 09/02/12 [Vitamin D3] Clopidogrel Bisulfate [Clopidogrel] 75 mg PO HS #90 tablet 01/10/16 Tamsulosin HCl 0.4 mg PO HS 05/19/16 Aspirin [ASA -] 81 mg PO DAILY 06/11/17 Carvedilol 12.5 mg PO BID 06/11/17 Ferrous Sulfate [Feosol] 325 mg PO DAILY ud 07/12/17 Docusate Sodium [Colace -] 100 mg PO TID PRN 07/14/17 Insulin Glargine,Hum.rec.anlog 15 units SQ HS 07/14/17 [Lantus Solostar PEN -] Lidocaine 5% Patch [Lidoderm -] 1 patch TP DAILY #7 patch 07/15/17 Furosemide [Lasix -] 40 mg PO DAILY tablet 07/22/17 Insulin Sliding Scale [Novolog 1 vial SQ TIDAC units 07/22/17 Vial Sliding Scale -] Lidocaine Patch Removal [Lidoderm 1 each MC DAILY@2200 each 07/22/17 Patch Removal] Nifedipine ER [Procardia XL -] 30 mg PO DAILY tab.er.24 07/22/17 Polyethylene Glycol 3350 [Miralax 17 gm PO DAILY bottle 07/22/17 119 gm Btl -] Famotidine 50 ml PO DAILY PRN 07/23/17 Simvastatin 40 mg PO HS 07/23/17 REVIEW OF SYSTEMS CONSTITUTIONAL: Absent: fever, chills, diaphoresis, generalized weakness, malaise, loss of appetite, weight change HEENT: Absent: rhinorrhea, nasal congestion, throat pain, throat swelling, difficulty swallowing, mouth swelling, ear pain, eye pain, visual changes CARDIOVASCULAR: Absent: chest pain, syncope, palpitations, irregular heart rate, lightheadedness , peripheral edema RESPIRATORY: Absent: cough, shortness of breath, dyspnea with exertion, orthopnea, wheezing, stridor, hemoptysis GASTROINTESTINAL: Absent: abdominal pain, abdominal distension, nausea, vomiting, diarrhea, constipation, melena, hematochezia GENITOURINARY: Absent: dysuria, frequency, urgency, hesitancy, hematuria, flank pain, genital pain MUSCULOSKELETAL: Absent: myalgia, arthralgia, joint swelling, back pain, neck pain SKIN: Absent: rash, itching, pallor HEMATOLOGIC/IMMUNOLOGIC: Absent: easy bleeding, easy bruising, lymphadenopathy, frequent infections ENDOCRINE: Absent: unexplained weight gain, unexplained weight loss, heat intolerance, cold intolerance NEUROLOGIC: Absent: headache, focal weakness or paresthesias, dizziness, unsteady gait, seizure, mental status changes, bladder or bowel incontinence PSYCHIATRIC: Absent: anxiety, depression, suicidal or homicidal ideation, hallucinations. PHYSICAL EXAMINATION Vital Signs - 24 hr 07/23/17 07:06 Temperature 98.1 F Pulse Rate 59 L Respiratory 14 Rate Blood Pressure 144/66 O2 Sat by Pulse 95 Oximetry (%) GENERAL: Awake, alert, and fully oriented, in no acute distress. HEAD: Normal with no signs of trauma. EYES: Pupils equal, round and reactive to light, extraocular movements intact, sclera anicteric, conjunctiva clear. No lid lag. EARS, NOSE, THROAT: Ears normal, nares patent, oropharynx clear without exudates. Moist mucous membranes. NECK: Normal range of motion, supple without lymphadenopathy, JVD, or masses. LUNGS: Breath sounds equal, clear to auscultation bilaterally. No wheezes, and no crackles. No accessory muscle use. HEART: Regular rate and rhythm ABDOMEN: Soft, nontender, not distended, + bowel sounds MUSCULOSKELETAL: Normal range of motion at all joints. No bony deformities or tenderness. No CVA tenderness. UPPER EXTREMITIES: No peripheral edema. LOWER EXTREMITIES: No peripheral edema. NEUROLOGICAL: Normal speech. Normal gait. PSYCHIATRIC: Cooperative. Good eye contact. Appropriate mood and affect. SKIN: Warm, dry, normal turgor, no rashes or lesions noted, normal capillary refill. Laboratory Results - last 24 hr 07/23/17 07/23/17 07/23/17 08:00 08:15 08:15 WBC 7.3 D RBC 3.13 L Hgb 8.9 L Hct 26.8 L MCV 85.8 MCH 28.4 MCHC 33.1 RDW 16.3 H Plt Count 231 D MPV 6.8 L Neutrophils % 83.0 H D Lymphocytes % 6.2 L D Monocytes % 8.6 Eosinophils % 1.5 Basophils % 0.7 PT with INR 14.30 H INR 1.27 H PTT (Actin FS) 31.9 Sodium Potassium Chloride Carbon Dioxide Anion Gap BUN Creatinine Creat Clearance w eGFR Random Glucose Calcium Total Bilirubin AST ALT Alkaline Phosphatase Creatine Kinase Troponin I Total Protein Albumin Stool Occult Blood Negative Blood Type Antibody Screen 07/23/17 07/23/17 07/23/17 08:15 08:15 08:15 WBC RBC Hgb Hct MCV MCH MCHC RDW Plt Count MPV Neutrophils % Lymphocytes % Monocytes % Eosinophils % Basophils % PT with INR INR PTT (Actin FS) Sodium 142 Potassium 4.8 Chloride 106 Carbon Dioxide 25 Anion Gap 11 BUN 94 H Creatinine 4.7 H Creat Clearance w eGFR 12.35 Random Glucose 255 H D Calcium 8.5 Total Bilirubin 0.3 D AST 11 L ALT 25 Alkaline Phosphatase 126 H D Creatine Kinase 74 Troponin I 0.97 H* D Total Protein 6.6 Albumin 3.0 L Stool Occult Blood Blood Type B POSITIVE Antibody Screen Negative ASSESSMENT/PLAN: Patient is a 71 year old male with a significant past medical history of CKD stage 4, CAD s/p CABG (s/p stent x2, CABG), [place], diabetes, chronic back pain (s/ p laminectomy, fusions) and chronic constipation. He presented to the ER from rehab facility after complaining of heartburn followed by 2 episodes of dark vomitus this morning. Patient was recently discharged from [facility] yesterday after 4 day hospitalization for elevated troponins attributed to his chronic kidney disease. On admission patient reported feeling lightheaded, now improved. Cardiology Elevated troponin @ 0.97, on previous admission was found to have an elevated troponin of 1.07. Troponin peaked at 2.74 and then trended down to 0.71. EKG ST with 2nd degree AV block with 3.1 AV conduction Sinus concepcion 60s on radiographer cardiac catheterization Trending troponins 0.71, 0.88 Cardiology consulted On Plavix and ASA, but ASA on hold secondary to possible coffee ground emesis Echo on 07/22 shows severe pulmonary hypertension, severe TR Lasix on hold 2/2 to worsening CKD GI: Coffee Ground emesis, acute Reported to have had 2 episodes of coffee ground emesis at nursing facility, none since On IV Protonix daily GI consult CT scan of abdomen ordered on Clears for now Renal CKD Baseline creatinen 3.7, presents to ER with creat of 4.7 Nephrology consulted and following Hold lasix Chronic urinary retention Neurogenic bladder history Has indwelling chronic witt catheter UA and UC ordered Skeletal Chronic back pain On Neurontin, Lidoderm patches Endocrine Diabetes Langus, Novolog diabetic diet Hematology Anemia hmg/hct, low at 8.9/26.8 On iron supplements Monitor and transfuse if hmg <7 F.E.N. Fluids: PO intake Electrolytes: monitor Nutrition: clears Prophylaxis DVT: SCDS Gi: Protonix Full code
[2017-07-23] MEDS ORDERED: INSULIN SLIDING SCALE (NOVOLOG) 1 VIAL SQ SCH (11:00)
--- NOTE | 2017-07-23 12:05 | CON.CARD ---
Consult Consult Specialty:: Cardiology Referred by:: Hospitalist Medicine Reason for Consultation:: Elevated troponins - History of Present Illness Chief Complaint: hematemesis History of Present Illness: Patient is a 71 year old male with history of CAD s/p CABG, angina pectoris, [place] (followed by Dr. Ángel Murguia of [facility]), history of PCI/stents, hypertension, hypercholesterolemia, insulin requiring diabetes mellitus, PAD post bypass surgery, anemia of CKD, and CKD recent discharge from hospital due to urinary retention with neurogenic bladder and constipation due to Ultram, transferred from SNF for 2 bouts of coffee ground emesis at 0500 this morning. Patient felt a heartburn sensation overnight and was given antacid with relief. He has had both upper and lower GI scopes 1 month ago with nothing abnormal found on upper GI scope and polyps removed from colonoscopy. He denies LOC, CP, SOB, abd pain, orthopnea, PND or LE edema. Nausea and emesis since resolved, patient is hungry. - History Source History Provided By: Patient Limitations to Obtaining History: No Limitations - Past Medical History Cardio/Vascular: Yes: CAD, CHF, HTN, Hyperlipdemia, [place] Gastrointestinal: Yes: Constipation, GI Bleed Renal/: Yes: Renal Inusuff, Neurogenic Bladder Endocrine: Yes: Diabetes Mellitus - Past Surgical History Past Surgical History: Yes: Bypass (Lower extremity), CABG, Hernia Repair, Stent (PCI) - Alcohol/Substance Use Hx Alcohol Use: No History of Substance Use: reports: None - Smoking History Smoking history: Never smoked Have you smoked in the past 12 months: No If you are a former smoker, when did you quit?: 30YRS - Social History ADL: Family Assistance History of Recent Travel: No Home Medications - Allergies Allergies/Adverse Reactions: Allergies Allergy/AdvReac Type Severity Reaction Status Date / Time tramadol Allergy Verified 07/23/17 07:06 acetaminophen [From Percocet] AdvReac Intermediate nausea Verified 07/23/17 07: 06 oxycodone HCl [From Percocet] AdvReac Intermediate nausea Verified 07/23/17 07: 06 ticagrelor [From BRILINTA] AdvReac Intermediate Verified 07/23/17 07:06 - Home Medications Home Medications: Ambulatory Orders Cholecalciferol (Vitamin D3) [Vitamin D3] 1,000 unit PO DAILY tablet 09/02/12 Clopidogrel Bisulfate [Clopidogrel] 75 mg PO HS #90 tablet 01/10/16 Tamsulosin HCl 0.4 mg PO HS 05/19/16 Aspirin [ASA -] 81 mg PO DAILY 06/11/17 Carvedilol 12.5 mg PO BID 06/11/17 Ferrous Sulfate [Feosol] 325 mg PO DAILY ud 07/12/17 Docusate Sodium [Colace -] 100 mg PO TID PRN 07/14/17 Insulin Glargine,Hum.rec.anlog [Lantus Solostar PEN -] 15 units SQ HS 07/14/17 Lidocaine 5% Patch [Lidoderm -] 1 patch TP DAILY #7 patch 07/15/17 Furosemide [Lasix -] 40 mg PO DAILY tablet 07/22/17 Insulin Sliding Scale [Novolog Vial Sliding Scale -] 1 vial SQ TIDAC units Lidocaine Patch Removal [Lidoderm Patch Removal] 1 each MC DAILY@2200 each Nifedipine ER [Procardia XL -] 30 mg PO DAILY tab.er.24 07/22/17 Polyethylene Glycol 3350 [Miralax 119 gm Btl -] 17 gm PO DAILY bottle 07/22/17 Famotidine 50 ml PO DAILY PRN 07/23/17 Simvastatin 40 mg PO HS 07/23/17 Family Disease History - Family Disease History Family Disease History: [place]: Mother, Sister Review of Systems - Review of Systems Gastrointestinal: reports: Indigestion, Nausea, Vomiting Vital Signs: Vital Signs Temperature 98.1 F 07/23/17 07:06 Pulse Rate 59 L 07/23/17 07:06 Respiratory Rate 14 07/23/17 07:06 Blood Pressure 144/66 07/23/17 07:06 O2 Sat by Pulse Oximetry (%) 95 07/23/17 07:06 Constitutional: Yes: No Distress, Calm Neck: Yes: Supple Respiratory: Yes: Regular, CTA Bilaterally Gastrointestinal: Yes: Normal Bowel Sounds, Soft Cardiovascular: Yes: Regular Rate and Rhythm JVD: No Carotid Bruit: No Heart Sounds: Yes: S1, S2 Murmur: Yes: Systolic Murmur, Grade 1 Edema: No - Other Data Labs, Other Data: CBC, BMP 07/23/17 08:15 07/23/17 08:15 INR, PTT INR 1.27 (0.82-1.09) H 07/23/17 08:15 Troponin, BNP 07/23/17 08:15 Troponin I 0.97 H* D Troponin, BNP 07/23/17 08:15 Troponin I 0.97 H* D NSR @ 61 LVH with repol abnl Imaging - Results Chest X-ray: Report Reviewed (NAD) Problem List - Problems (1) Troponin level elevated Code(s): R74.8 - ABNORMAL LEVELS OF OTHER SERUM ENZYMES (2) Anemia Code(s): D64.9 - ANEMIA, UNSPECIFIED Qualifiers: Anemia type: iron deficiency Iron deficiency anemia type: other iron deficiency Qualified Code(s): D50.8 - Other iron deficiency anemias (3) Urinary retention Code(s): R33.9 - RETENTION OF URINE, UNSPECIFIED (4) CAD (coronary artery disease) Code(s): I25.10 - ATHSCL HEART DISEASE OF [place] CORONARY ARTERY W/O ANG PCTRS Qualifiers: Coronary Disease-Associated Artery/Lesion type: [place] artery [place] vs. transplanted heart: [place] heart Associated angina: without angina Qualified Code(s): I25.10 - Atherosclerotic heart disease of [place] coronary artery without angina pectoris (5) CKD (chronic kidney disease) Code(s): N18.9 - CHRONIC KIDNEY DISEASE, UNSPECIFIED Qualifiers: Chronic kidney disease stage: unspecified stage Qualified Code(s): N18.9 - Chronic kidney disease, unspecified (6) Diabetes Code(s): E11.9 - TYPE 2 DIABETES MELLITUS WITHOUT COMPLICATIONS Qualifiers: 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 type: type 2 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 complication status: with kidney complications 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 complication detail: with nephropathy 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 use: unspecified mcc insulin use status Qualified Code(s): E11.21 - Type 2 diabetes mellitus with diabetic nephropathy (7) ESRD (end stage renal disease) Code(s): N18.6 - END STAGE RENAL DISEASE (8) HTN (hypertension) Code(s): I10 - ESSENTIAL (PRIMARY) HYPERTENSION Qualifiers: Hypertension type: essential hypertension Qualified Code(s): I10 - Essential (primary) hypertension (9) Hx of CABG Code(s): Z95.1 - PRESENCE OF AORTOCORONARY BYPASS GRAFT (10) Hypercholesterolemia Code(s): E78.00 - PURE HYPERCHOLESTEROLEMIA, UNSPECIFIED (11) PAD (peripheral artery disease) Code(s): I73.9 - PERIPHERAL VASCULAR DISEASE, UNSPECIFIED (12) Neurogenic bladder Code(s): N31.9 - NEUROMUSCULAR DYSFUNCTION OF BLAD[place], UNSPECIFIED (13) Demand ischemia Code(s): I24.8 - OTHER FORMS OF ACUTE ISCHEMIC HEART DISEASE (14) Acute on chronic renal failure Code(s): N17.9 - ACUTE KIDNEY FAILURE, UNSPECIFIED; N18.9 - CHRONIC KIDNEY DISEASE, UNSPECIFIED Qualifiers: Chronic kidney disease stage: stage 4 (severe) Assessment/Plan 1. Hematemesis r/o UGI bleed, ASA-associated gastritis 2. CAD, s/p CABG, angina pectoris - demand ischemia 3. Hypertension/HCVD 4. Hypercholesterolemia 5. 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 6. PAD s/p bypass surgery 7. Acute on CKD 8. Anemia of CKD 9. BPH, urinary retention with neurogenic bladder due to Ultram 10. Constipation due to Ultram PLAN: 1. Trend cardiac enzymes. Would favor optimizing medical therapy. Patient remains asymptomatic and troponins are trending down and in view of CKD, would not pursue further cardiac intervention at this time 2. Continue Carvedilol 25 bid and Procardia XL 30 qd with uptitration as tolerated 3. D/c ASA 81 qd and continue Plavix 75 qd and Lasix 40 qd with caution, continue Atorvastatin 20 qd 4. Chen catheter in place. Monitor urine output (I/Os) and renal function. Monitor electrolytes, bowel regimen. 5. GI protection, recent EGD negative, consider small bowel evaluation, monitor Hgb, start clear liquid diet 6. Plan for outpatient cystometric/Urodynamics. Upon discharge, patient is to follow up with bible teacher: Dr. Ángel Murguia ( [facility])
--- NOTE | 2017-07-23 13:53 | CONSULT ---
Consultation: REQUESTING PROVIDER: CONSULT REQUEST: We have been asked to medically evaluate this patient for CKD. HISTORY OF PRESENT ILLNESS: This is a 71 yo M with PMH of CKD 4, chronic anemia, CAD s/p stents, CABG, PAD, HTN, HLD, and constipation, dcd from [facility] yesterday after 4 d hospitalization for elevated trop attributed to CKD, who presents to the ED from [facility] due to coffee ground emesis x2 at 0500 this morning. Vomiting was preceded by epigastric burning sensation overnight. he denies prior episodes of similar symptoms. He has had endoscopy and colonoscopy done 1 mo ago with normal findings other than a few colonic polyps for which he received polypectomy. he reports daily dark stools attributed to iron supplements and denies hematochezia. He reports malaise. He denies current abd pain, weight loss, dizziness, cp, loc, sob, n/a, f/c, dysuria, hematuria, flank pain, oliguria. REVIEW OF SYSTEMS: CONSTITUTIONAL: Absent: fever, chills, diaphoresis, loss of appetite, weight change HEENT: Absent: rhinorrhea, nasal congestion, throat pain CARDIOVASCULAR: Absent: chest pain, syncope, palpitations, lightheadedness, peripheral edema RESPIRATORY: Absent: cough, shortness of breath, dyspnea with exertion, orthopnea, hemoptysis GASTROINTESTINAL: Absent: abdominal pain, abdominal distension, nausea, diarrhea, constipation, hematochezia GENITOURINARY: Absent: dysuria, hematuria, flank pain MUSCULOSKELETAL: Absent: myalgia, arthralgia, joint swelling, back pain, neck pain SKIN: Absent: rash, itching, pallor HEMATOLOGIC/IMMUNOLOGIC: Absent: easy bleeding, easy bruising, lymphadenopathy, frequent infections ENDOCRINE: Absent: unexplained weight gain, unexplained weight loss, heat intolerance, cold intolerance NEUROLOGIC: Absent: headache, focal weakness or paresthesias PSYCHIATRIC: Absent: anxiety, depression PHYSICAL EXAMINATION Vital Signs - 24 hr 07/23/ 07:06 Temperature 98.1 F Pulse Rate 59 L Respiratory 14 Rate Blood Pressure 144/66 O2 Sat by Pulse 95 Oximetry (%) GENERAL: Awake, alert, and fully oriented, in no acute distress. HEAD: Normal with no signs of trauma. EYES: Pupils equal, round and reactive to light, extraocular movements intact, sclera anicteric, conjunctiva clear. No lid lag. EARS, NOSE, THROAT: Moist mucous membranes. NECK: supple without JVD LUNGS: Breath sounds equal, clear to auscultation bilaterally. mild bibasilar crackles HEART: Regular rate and rhythm, normal S1 and S2 ABDOMEN: Soft, nontender, not distended, normoactive bowel sounds, no mass MUSCULOSKELETAL: No CVA tenderness. UPPER EXTREMITIES: 2+ pulses, warm, well-perfused. No cyanosis. No clubbing. Cap refill <2 seconds. No peripheral edema. LOWER EXTREMITIES: 1+ pulses, warm, well-perfused. No calf tenderness. No peripheral edema. NEUROLOGICAL: Cranial nerves II-XII grossly intact. Normal speech. PSYCHIATRIC: Cooperative. Good eye contact. Appropriate mood and affect. SKIN: Warm, dry Laboratory Results - last 24 hr 07/23/17 07/23/17 07/23/17 08:00 08:15 08:15 WBC 7.3 D RBC 3.13 L Hgb 8.9 L Hct 26.8 L MCV 85.8 MCH 28.4 MCHC 33.1 RDW 16.3 H Plt Count 231 D MPV 6.8 L Neutrophils % 83.0 H D Lymphocytes % 6.2 L D Monocytes % 8.6 Eosinophils % 1.5 Basophils % 0.7 PT with INR 14.30 H INR 1.27 H PTT (Actin FS) 31.9 Sodium Potassium Chloride Carbon Dioxide Anion Gap BUN Creatinine Creat Clearance w eGFR POC Glucometer Random Glucose Calcium Total Bilirubin AST ALT Alkaline Phosphatase Creatine Kinase Troponin I Total Protein Albumin Stool Occult Blood Negative Blood Type Antibody Screen 07/23/17 07/23/17 07/23/17 08:15 08:15 08:15 WBC RBC Hgb Hct MCV MCH MCHC RDW Plt Count MPV Neutrophils % Lymphocytes % Monocytes % Eosinophils % Basophils % PT with INR INR PTT (Actin FS) Sodium 142 Potassium 4.8 Chloride 106 Carbon Dioxide 25 Anion Gap 11 BUN 94 H Creatinine 4.7 H Creat Clearance w eGFR 12.35 POC Glucometer Random Glucose 255 H D Calcium 8.5 Total Bilirubin 0.3 D AST 11 L ALT 25 Alkaline Phosphatase 126 H D Creatine Kinase 74 Troponin I 0.97 H* D Total Protein 6.6 Albumin 3.0 L Stool Occult Blood Blood Type B POSITIVE Antibody Screen Negative 07/23/17 12:53 WBC RBC Hgb Hct MCV MCH MCHC RDW Plt Count MPV Neutrophils % Lymphocytes % Monocytes % Eosinophils % Basophils % PT with INR INR PTT (Actin FS) Sodium Potassium Chloride Carbon Dioxide Anion Gap BUN Creatinine Creat Clearance w eGFR POC Glucometer [id number] Random Glucose Calcium Total Bilirubin AST ALT Alkaline Phosphatase Creatine Kinase Troponin I Total Protein Albumin Stool Occult Blood Blood Type Antibody Screen Active Medications Generic Name Dose Route Start Last Admin Trade Name Freq PRN Reason Stop Dose Admin Atorvastatin Calcium 20 mg 07/23/17 22:00 Lipitor - PO HS [facility] Carvedilol 12.5 mg 07/23/17 22:00 Coreg - PO BID [facility] Cholecalciferol 1,000 unit 07/24/17 10:00 Vitamin D3 - PO DAILY [facility] Citalopram Hydrobromide 20 mg 07/24/17 10:00 Celexa - PO DAILY [facility] Clopidogrel Bisulfate 75 mg 07/23/17 22:00 Plavix - PO HS [facility] Docusate Sodium 100 mg 07/23/17 10:53 Colace - PO TID PRN CONSTIPATION Ferrous Sulfate 325 mg 07/24/17 10:00 Feosol - PO DAILY [facility] Furosemide 40 mg 07/24/17 10:00 Lasix - PO DAILY [facility] Gabapentin 100 mg 07/24/17 10:00 Neurontin - PO DAILY [facility] Glimepiride 4 mg 07/24/17 07:00 Amaryl - PO AM [facility] Insulin Aspart 1 vial 07/23/17 12:58 Novolog Vial Sliding Scale - SQ ACHS [facility] Protocol Lidocaine 1 patch 07/24/17 10:00 Lidoderm Patch - TP DAILY [facility] Miscellaneous 1 each 07/23/17 22:00 Lidoderm Patch Removal MC DAILY@2200 [facility] Nifedipine 30 mg 07/24/17 10:00 Procardia Xl - PO DAILY [facility] Pantoprazole Sodium 40 mg 07/23/17 13:00 Protonix - PO DAILY [facility] Tamsulosin HCl 0.4 mg 07/23/17 22:00 Flomax - PO [facility] ASSESSMENT/PLAN: This is a 71 yo M with PMH of CKD 4, chronic anemia, CAD s/p stents, CABG, PAD, HTN, HLD, and constipation, dcd from [facility] yesterday after 4 d hospitalization for elevated trop attributed to CKD, who [facility] due to coffee ground emesis x2 at 0500 this morning. Hematemesis secondary to Upper GIB -possible ASA gastritis; d/c asa, constinue plavix -has been placed on clears diet -recommend GI consult Anemia -at baseline Hgb 8.9 -trend h/h CKD -slightly worsening creat 4.7, bun 94, likely prerenal -hold lasix -po hydration, no IVF urinary retention in setting of BPH with neurogenic bladder -secondary to Ultram -maintain witt -daily I and O Elevated troponin -likely ty to CKD -trop 0.94, trend -medical optimization w/o aggressive intervention at this time per cardiology recommendation HTN HLD -resume home meds Thank you for consultative opportunity; we will follow this patient Problem List - Problems (1) Upper GI bleed Code(s): K92.2 - GASTROINTESTINAL HEMORRHAGE, UNSPECIFIED (2) Troponin level elevated Code(s): R74.8 - ABNORMAL LEVELS OF OTHER SERUM ENZYMES (3) Anemia Code(s): D64.9 - ANEMIA, UNSPECIFIED Qualifiers: Anemia type: iron deficiency Iron deficiency anemia type: other iron deficiency Qualified Code(s): D50.8 - Other iron deficiency anemias (4) Constipation Code(s): K59.00 - CONSTIPATION, UNSPECIFIED Qualifiers: Constipation type: unspecified constipation type Qualified Code(s): K59.00 - Constipation, unspecified (5) Urinary retention Code(s): R33.9 - RETENTION OF URINE, UNSPECIFIED (6) CAD (coronary artery disease) Code(s): I25.10 - ATHSCL HEART DISEASE OF [place] CORONARY ARTERY W/O ANG PCTRS Qualifiers: Coronary Disease-Associated Artery/Lesion type: [place] artery [place] vs. transplanted heart: [place] heart Associated angina: without angina Qualified Code(s): I25.10 - Atherosclerotic heart disease of [place] coronary artery without angina pectoris (7) CKD (chronic kidney disease) Code(s): N18.9 - CHRONIC KIDNEY DISEASE, UNSPECIFIED Qualifiers: Chronic kidney disease stage: unspecified stage Qualified Code(s): N18.9 - Chronic kidney disease, unspecified (8) HTN (hypertension) Code(s): I10 - ESSENTIAL (PRIMARY) HYPERTENSION Qualifiers: Hypertension type: essential hypertension Qualified Code(s): I10 - Essential (primary) hypertension (9) Hypercholesterolemia Code(s): E78.00 - PURE HYPERCHOLESTEROLEMIA, UNSPECIFIED (10) PAD (peripheral artery disease) Code(s): I73.9 - PERIPHERAL VASCULAR DISEASE, UNSPECIFIED (11) Neurogenic bladder Code(s): N31.9 - NEUROMUSCULAR DYSFUNCTION OF [place], UNSPECIFIED Visit type - Emergency Visit Emergency Visit: Yes ED Registration Date: 07/23/17 Care time: The patient presented to the Emergency Department on the above date and was hospitalized for further evaluation of their emergent condition. - New Patient This patient is new to me today: Yes Date on this admission: 07/23/17 - Critical Care Critical Care patient: No
--- NOTE | 2017-07-23 14:56 | PN ---
Teaching Attending Note Name of Resident: Mary Aguilar (Nephrology) ATTENDING PHYSICIAN STATEMENT I saw and evaluated the patient. I reviewed the resident's note and discussed the case with the resident. I agree with the resident's findings and plan as documented. Nephrology Pt seen and examined at bedside. He presented to the ER after an episode of vomiting up what he though looked like coffee grounds. He was discharged from [facility] to the [place] on Sunday and was transferred to [facility] today. He was found to have elevated creatinine. Current Medications Generic Name Dose Route Start Last Admin Trade Name Freq PRN Reason Stop Dose Admin Atorvastatin Calcium 20 mg 07/23/17 22:00 Lipitor - PO HS [facility] Carvedilol 12.5 mg 07/23/17 22:00 Coreg - PO BID [facility] Cholecalciferol 1,000 unit 07/24/17 10:00 Vitamin D3 - PO DAILY [facility] Citalopram Hydrobromide 20 mg 07/24/17 10:00 Celexa - PO DAILY [facility] Clopidogrel Bisulfate 75 mg 07/23/17 22:00 Plavix - PO HS [facility] Docusate Sodium 100 mg 07/23/17 10:53 Colace - PO TID PRN CONSTIPATION Ferrous Sulfate 325 mg 07/24/17 10:00 Feosol - PO DAILY [facility] Furosemide 40 mg 07/24/17 10:00 Lasix - PO DAILY [facility] Gabapentin 100 mg 07/24/17 10:00 Neurontin - PO DAILY [facility] Glimepiride 4 mg 07/24/17 07:00 Amaryl - PO AM [facility] Insulin Aspart 1 vial 07/23/17 12:58 Novolog Vial Sliding Scale - SQ ACHS [facility] Protocol Lidocaine 1 patch 07/24/17 10:00 Lidoderm Patch - TP DAILY [facility] Miscellaneous 1 each 07/23/17 22:00 Lidoderm Patch Removal MC DAILY@2200 [facility] Nifedipine 30 mg 07/24/17 10:00 Procardia Xl - PO DAILY [facility] Pantoprazole Sodium 40 mg 07/23/17 13:00 Protonix - PO DAILY [facility] Tamsulosin HCl 0.4 mg 07/23/17 22:00 Flomax - PO HS [facility] Laboratory Tests 07/20/17 07/21/17 07/23/17 10:30 07:40 08:15 Hgb 8.8 L 8.9 L 8.9 L Plt Count 231 D Sodium Potassium Chloride Carbon Dioxide Anion Gap BUN Creatinine 07/23/17 08:15 Hgb Plt Count Sodium 142 Potassium 4.8 Chloride 106 Carbon Dioxide 25 Anion Gap 11 BUN 94 H Creatinine 4.7 H cardio s1s2 reg pulm clear GI soft ext neg edema neuro awake and alert skin neg rash Impression 1. CKD 2. anemia 3. HTN 4. Chol 5. DM 6. BPH 7. CAD 8. urinary retention 9. GI bleed Plan - hold lasix as he was vomitting and creatinine is higher - repeat lab sin am - maintain witt as he has obstruction - serial cbc - will follow Dr Donovan
[2017-07-23] MEDS ORDERED: PANTOPRAZOLE 40 MG TABLET (FP) ONE (15:38)
[2017-07-23] MEDS: PANTOPRAZOLE 40 MG TABLET (FP) PO SCH (15:55)
--- NOTE | 2017-07-23 16:07 | CON.GI ---
Consult Consult Specialty:: GI - History of Present Illness History of Present Illness: Chart reviewed. Known to GI service from admission in June of this year for anemia and CKD. 71 year old male with Stage 4 CKD, CABG (s/p stent x2, CABG), [place], diabetes, chronic back pain (s/p laminectomy, fusions) and chronic constipation. He presented to the ER from rehab facility after complaining of heartburn followed by 2 episodes of dark vomitus this morning. Patient was recently discharged from [facility] after 4-day hospitalization for elevated troponin attributed to CKD. On admission patient reported feeling lightheaded. EGD on 06/13/2017 revealed normal duodenal and gastric biopsies; colonoscopy revealed a tubular adenoma. There were no evidence of ulcers, gastritis, duodenitis, esiphagitis, colitis. Hgb ranges between 10-9 g/dl in the last 2 months, Hemocult negative on this admission. - History Source History Provided By: Patient, Medical Record - Past Medical History Cardio/Vascular: Yes: CAD, CHF, HTN, Hyperlipdemia, [place] Gastrointestinal: Yes: Constipation, GI Bleed Renal/: Yes: Renal Inusuff, Neurogenic Bladder Endocrine: Yes: Diabetes Mellitus - Past Surgical History Past Surgical History: Yes: Bypass (Lower extremity), CABG, Hernia Repair, Stent (PCI) - Alcohol/Substance Use Hx Alcohol Use: No History of Substance Use: reports: None - Smoking History Smoking history: Former smoker Have you smoked in the past 12 months: No If you are a former smoker, when did you quit?: 30YRS - Social History ADL: Family Assistance History of Recent Travel: No Home Medications - Allergies Allergies/Adverse Reactions: Allergies Allergy/AdvReac Type Severity Reaction Status Date / Time tramadol Allergy Verified 07/23/17 07:06 acetaminophen [From Percocet] AdvReac Intermediate nausea Verified 07/23/17 07: 06 oxycodone HCl [From Percocet] AdvReac Intermediate nausea Verified 07/23/17 07: 06 ticagrelor [From BRILINTA] AdvReac Intermediate Verified 07/23/17 07:06 - Home Medications Home Medications: Ambulatory Orders Cholecalciferol (Vitamin D3) [Vitamin D3] 1,000 unit PO DAILY tablet 09/02/12 Clopidogrel Bisulfate [Clopidogrel] 75 mg PO HS #90 tablet 01/10/16 Tamsulosin HCl 2 cap PO HS 05/19/16 Aspirin [ASA -] 81 mg PO DAILY 06/11/17 Carvedilol 12.5 mg PO BID 06/11/17 Ferrous Sulfate [Feosol] 325 mg PO DAILY ud 07/12/17 Docusate Sodium [Colace -] 300 mg PO HS 07/14/17 Insulin Glargine,Hum.rec.anlog [Lantus Solostar PEN -] 15 units SQ HS 07/14/17 Lidocaine 5% Patch [Lidoderm -] 1 patch TP DAILY #7 patch 07/15/17 Nifedipine ER [Procardia XL -] 30 mg PO DAILY tab.er.24 07/22/17 Polyethylene Glycol 3350 [Miralax 119 gm Btl -] 17 gm PO DAILY bottle 07/22/17 Acetaminophen [Non-Aspirin Pain Relief] 650 mg PO Q6H PRN 07/23/17 Famotidine 2.5 ml PO DAILY PRN 07/23/17 Furosemide [Lasix -] 40 mg PO BID 07/23/17 Insulin Sliding Scale [Novolog Vial Sliding Scale -] 1 vial SQ TIDAC PRN Simvastatin 40 mg PO HS 07/23/17 Family Disease History - Family Disease History Family Disease History: CA: Mother, Sister Review of Systems Findings/Remarks: please refer o H&P Physical Exam-GI Vital Signs: Vital Signs Temperature 97.8 F 07/23/17 15:28 Pulse Rate 60 07/23/17 15:37 Respiratory Rate 18 07/23/17 15:37 Blood Pressure 145/64 07/23/17 15:37 O2 Sat by Pulse Oximetry (%) 95 07/23/17 15:37 Constitutional: Yes: No Distress, Calm Eyes: Yes: Conjunctiva Clear HENT: Yes: Atraumatic Neck: Yes: Supple Respiratory: Yes: Regular ...Auscultate: Yes: Normoactive Bowel Sounds Neurological: Yes: Alert, Oriented Labs: CBC, BMP 07/23/17 08:15 07/23/17 08:15 INR, PTT INR 1.27 (0.82-1.09) H 07/23/17 08:15 Laboratory Tests 07/23/17 07/23/17 07/23/17 08:00 08:15 08:15 WBC 7.3 D RBC 3.13 L Hgb 8.9 L Hct 26.8 L MCV 85.8 MCH 28.4 MCHC 33.1 RDW 16.3 H Plt Count 231 D MPV 6.8 L Neutrophils % 83.0 H D Lymphocytes % 6.2 L D Monocytes % 8.6 Eosinophils % 1.5 Basophils % 0.7 PT with INR 14.30 H INR 1.27 H PTT (Actin FS) 31.9 Sodium Potassium Chloride Carbon Dioxide Anion Gap BUN Creatinine Creat Clearance w eGFR POC Glucometer Random Glucose Calcium Total Bilirubin AST ALT Alkaline Phosphatase Creatine Kinase Troponin I Total Protein Albumin Stool Occult Blood Negative Blood Type Antibody Screen 07/23/17 07/23/17 07/23/17 08:15 08:15 08:15 WBC RBC Hgb Hct MCV MCH MCHC RDW Plt Count MPV Neutrophils % Lymphocytes % Monocytes % Eosinophils % Basophils % PT with INR INR PTT (Actin FS) Sodium 142 Potassium 4.8 Chloride 106 Carbon Dioxide 25 Anion Gap 11 BUN 94 H Creatinine 4.7 H Creat Clearance w eGFR 12.35 POC Glucometer Random Glucose 255 H D Calcium 8.5 Total Bilirubin 0.3 D AST 11 L ALT 25 Alkaline Phosphatase 126 H D Creatine Kinase 74 Troponin I 0.97 H* D Total Protein 6.6 Albumin 3.0 L Stool Occult Blood Blood Type B POSITIVE Antibody Screen Negative 07/23/17 12:53 WBC RBC Hgb Hct MCV MCH MCHC RDW Plt Count MPV Neutrophils % Lymphocytes % Monocytes % Eosinophils % Basophils % PT with INR INR PTT (Actin FS) Sodium Potassium Chloride Carbon Dioxide Anion Gap BUN Creatinine Creat Clearance w eGFR POC Glucometer [id number] Random Glucose Calcium Total Bilirubin AST ALT Alkaline Phosphatase Creatine Kinase Troponin I Total Protein Albumin Stool Occult Blood Blood Type Antibody Screen Problem List - Problems (1) Anemia Code(s): D64.9 - ANEMIA, UNSPECIFIED Qualifiers: Anemia type: iron deficiency Iron deficiency anemia type: other iron deficiency Qualified Code(s): D50.8 - Other iron deficiency anemias Assessment/Plan A 71 yom with AHD adn multiple active medial issues presented with dark matrerial emesis. Recent EGD revealed no significant patholgy. Hemoccult negative with low, stable hgb. Do not suspect acute, ongoing GI bleeding at this tiem. Continue Protonix, Iron. Consider carafate 1 gm bid if not contraindicated. Avoid NSAIDs Miralax PRN Renal, cardiac diet as tolerated will follow
[2017-07-23] MEDS: INSULIN SLIDING SCALE (NOVOLOG) 1 VIAL SQ SCH ×2 (18:14→21:52)
[2017-07-23 18:48] LABS: BASO % 0.9 % (0-2.0); EOS % 2.5 % (0-4.5); MCH 28.3 pg (25.7-33.7); MCHC 32.3 g/dl (32.0-35.9); MEAN CELL VOLUME 87.6 fl (80-96); MEAN PLT VOLUME 7.5 fl (7.5-11.1); NEUT % 74.4 % (42.8-82.8); PLATELET COUNT 223 K/MM3 (134-434); RDW 16.1 % (11.9-15.9); WHITE BLOOD COUNT 5.8 K/mm3 (4.0-10.0)
[2017-07-23] MEDS: CLOPIDOGREL BISULFATE 75 MG TABLET (FP) PO SCH (21:52)
[2017-07-23] MEDS: TAMSULOSIN HCL 0.4 MG CAP.ER.24H (FP) PO SCH (21:52)
[2017-07-23] MEDS: LIDOCAINE PATCH REMOVAL MC SCH (21:52)
[2017-07-23] MEDS: ATORVASTATIN CA 20 MG TABLET (FP) PO SCH (21:52)
[2017-07-23] MEDS: CARVEDILOL 12.5 MG TABLET (FP) PO SCH (21:52)
--- NOTE | 2017-07-24 01:25 | EKG ---
Test Reason : Blood Pressure : / mmHG Vent. Rate : 060 BPM Atrial Rate : 178 BPM P-R Int : 190 ms QRS Dur : 096 ms QT Int : 446 ms P-R-T Axes : 057 -17 140 degrees QTc Int : 446 ms SINUS RHYTHM MINIMAL VOLTAGE CRITERIA FOR LVH, MAY BE NORMAL VARIANT CANNOT RULE OUT SEPTAL INFARCT , AGE UNDETERMINED ABNORMAL ECG WHEN COMPARED WITH ECG OF 19-JUL-2017 11:36, NO SIGNIFICANT CHANGE WAS FOUND Confirmed by GERALD AZEVEDO MD ([id number]) on 07/24/2017 1:25:40 AM Referred By: Confirmed By:GERALD AZEVEDO MD
[2017-07-24] MEDS: GLIMEPIRIDE 4 MG TABLET (FP) PO SCH (06:04)
[2017-07-24] MEDS: INSULIN SLIDING SCALE (NOVOLOG) 1 VIAL SQ SCH ×4 (06:05→21:55)
--- NOTE | 2017-07-24 06:58 | PN ---
Progress Note (short form) - Note Progress Note: Chief Complaint: Events noted, notes reviewed, denies any chest pain or dyspnea , no hematemesis reported, dropping H/H noted History of Present Illness: Seen and examined on telemetry. Events noted, notes reviewed, denies any chest pain or dyspnea, no hematemesis reported, dropping H/H noted Medications: Current Medications Atorvastatin Calcium (Lipitor -) 20 mg PO HS [facility] Last Admin: 07/23/17 21:52 Dose: 20 mg Carvedilol (Coreg -) 12.5 mg PO BID [facility] Last Admin: 07/24/17 09:43 Dose: 12.5 mg Cholecalciferol (Vitamin D3 -) 1,000 unit PO DAILY [facility] Last Admin: 07/24/17 09:42 Dose: 1,000 unit Citalopram Hydrobromide (Celexa -) 20 mg PO DAILY [facility] Last Admin: 07/24/17 09:42 Dose: 20 mg Clopidogrel Bisulfate (Plavix -) 75 mg PO [facility] Last Admin: 07/23/17 21:52 Dose: 75 mg Docusate Sodium (Colace -) 100 mg PO TID PRN PRN Reason: CONSTIPATION Ferrous Sulfate (Feosol -) 325 mg PO DAILY [facility] Last Admin: 07/24/17 09:42 Dose: 325 mg Gabapentin (Neurontin -) 100 mg PO DAILY [facility] Last Admin: 07/24/17 09:42 Dose: 100 mg Glimepiride (Amaryl -) 4 mg PO AM [facility] Last Admin: 07/24/17 06:04 Dose: 4 mg Insulin Aspart (Novolog Vial Sliding Scale -) 1 vial SQ ACHS [facility] PRN Reason: Protocol Last Admin: 07/24/17 12:17 Dose: 4 units Lidocaine (Lidoderm Patch -) 1 patch TP DAILY [facility] Last Admin: 07/24/17 09:42 Dose: 1 patch Miscellaneous (Lidoderm Patch Removal) 1 each MC DAILY@2200 [facility] Last Admin: 07/23/17 21:52 Dose: 1 each Nifedipine (Procardia Xl -) 30 mg PO DAILY [facility] Last Admin: 07/24/17 09:42 Dose: 30 mg Pantoprazole Sodium (Protonix -) 40 mg PO DAILY [facility] Last Admin: 07/24/17 09:42 Dose: 40 mg Tamsulosin HCl (Flomax -) 0.4 mg PO [facility] Last Admin: 07/23/17 21:52 Dose: 0.4 mg Review of Systems Constitutional: Denies: Chills or Fever Cardiovascular: Denies: chest pain, shortness of breath, palpitations Respiratory: Denies: cough, sputum production, hemoptysis Gastrointestinal: Denies: Nausea, Vomiting, Diarrhea, Constipation, abdominal pain Neurology: No seizures or syncope Vital Signs: Last Vital Signs Temp Pulse Resp BP Pulse Ox 98.2 F 58 L 14 158/74 96 07/24/17 08:00 07/24/17 08:00 07/24/17 09:00 07/24/17 08:00 07/24/17 09:00 Intake & Output 07/21/17 07/22/17 07/23/17 07/24/17 23:59 23:59 23:59 23:59 Intake Total 230 330 Output Total 350 Balance 230 -20 Weight 161 lb Constitutional: No Distress, Calm Neck: Supple Respiratory: CTA Bilaterally Cardiovascular: S1 S2 Regular Rate and Rhythm Grade 1-2/6 SM Gastrointestinal: Soft Benign Normal Bowel Sounds Ext: No Edema Labs: CBC, BMP 07/24/17 05:05 07/24/17 05:05 Hepatic Panel Total Bilirubin 0.6 mg/dL (0.2-1.0) D 07/24/17 05:05 AST 11 U/L (15-37) L 07/24/17 05:05 ALT 19 U/L (12-78) D 07/24/17 05:05 Alkaline Phosphatase 118 U/L (45-117) H 07/24/17 05:05 Albumin 2.8 g/dl (3.4-5.0) L 07/24/17 05:05 Assessment/Plan ASSESSMENT: 1. Hematemesis/upper gastro-intestinal bleed, probable ASA-associated gastritis 2. CAD post CABG, angina pectoris with evidence of demand ischemic injury, related to above 3. Diastolic LV dysfunction with class 0 NYHA classification LV failure 4. Hypertension/HCVD 5. 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 6. Hypercholesterolemia 7. PAD post peripheral bypass surgery 8. Acute on CKD 9. Anemia PLAN: 1. As outlined in the initial consultation to optimize medical therapy considering that he is asymptomatic with down-trending Troponin I, would not pursue any further cardiac intervention 2. Continue Carvedilol 3. Continue Procardia XL 4. Continue Plavix with caution 5. Hold Lasix pending renal function recovery and stabilization 6. Continue Atorvastatin 7. 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 Ángel Murguia ([facility]) Umu Grace MD
[2017-07-24 07:22] LABS: BASO % 0.9 % (0-2.0); EOS % 2.9 % (0-4.5); MCH 28.4 pg (25.7-33.7); MCHC 32.9 g/dl (32.0-35.9); MEAN CELL VOLUME 86.3 fl (80-96); MEAN PLT VOLUME 7.2 fl (7.5-11.1); NEUT % 76.6 % (42.8-82.8); PLATELET COUNT 214 K/MM3 (134-434); RDW 16.1 % (11.9-15.9); WHITE BLOOD COUNT 6.4 K/mm3 (4.0-10.0)
[2017-07-24 08:34] LABS: ALBUMIN 2.8 g/dl (3.4-5.0); ANION GAP 7 (8-16); BILIRUBIN,TOTAL 0.6 mg/dL (0.2-1.0); CO2 26 mmol/L (21-32); CREATININE 4.1 mg/dL (0.7-1.3); GLUCOSE,RANDOM 168 mg/dL (74-106); SGOT/AST 11 U/L (15-37); TOT PROT 6.1 g/dl (6.4-8.2)
--- NOTE | 2017-07-24 08:44 | PN ---
Physical Exam: SUBJECTIVE: Patient seen and examined at the bedside. OBJECTIVE: 1 unit of prbc for hmg/hct of 7.9/24: discussed with alcoholic counselor Vital Signs Period Temp Pulse Resp BP Sys/Rodriguez Pulse Ox Last 24 Hr 97.4 F-98.9 F 57-63 14-20 142-162/63-78 95-98 GENERAL: Awake, alert, and fully oriented, in no acute distress. HEAD: Normal with no signs of trauma. EYES: Pupils equal, round and reactive to light, extraocular movements intact, sclera anicteric, conjunctiva clear. No lid lag. EARS, NOSE, THROAT: Ears normal, nares patent, oropharynx clear without exudates. Moist mucous membranes. NECK: Normal range of motion, supple without lymphadenopathy, JVD, or masses. LUNGS: Breath sounds equal, clear to auscultation bilaterally. No wheezes, and no crackles. No accessory muscle use. HEART: Regular rate and rhythm ABDOMEN: Soft, nontender, not distended, + bowel sounds MUSCULOSKELETAL: Normal range of motion at all joints. No bony deformities or tenderness. No CVA tenderness. UPPER EXTREMITIES: No peripheral edema. LOWER EXTREMITIES: No peripheral edema. NEUROLOGICAL: Normal speech. Normal gait. PSYCHIATRIC: Cooperative. Good eye contact. Appropriate mood and affect. SKIN: Warm, dry, normal turgor, no rashes or lesions noted, normal capillary refill. Laboratory Results - last 24 hr 07/23/17 07/23/17 07/23/17 08:15 08:15 08:15 WBC RBC Hgb Hct MCV MCH MCHC RDW Plt Count MPV Neutrophils % Lymphocytes % Monocytes % Eosinophils % Basophils % PT with INR 14.30 H INR 1.27 H PTT (Actin FS) 31.9 POC Glucometer Creatine Kinase 74 Troponin I 0.97 H* D Blood Type B POSITIVE Antibody Screen Negative 07/23/17 07/23/17 07/23/17 12:53 15:38 18:00 WBC 5.8 RBC 2.83 L Hgb 8.0 L D Hct 24.8 L MCV 87.6 MCH 28.3 MCHC 32.3 RDW 16.1 H Plt Count 223 MPV 7.5 D Neutrophils % 74.4 Lymphocytes % 10.8 D Monocytes % 11.4 H Eosinophils % 2.5 Basophils % 0.9 PT with INR INR PTT (Actin FS) POC Glucometer 260.78293 Creatine Kinase Troponin I 0.88 H* Blood Type Antibody Screen 07/23/17 07/23/17 07/23/17 18:13 21:10 21:37 WBC RBC Hgb Hct MCV MCH MCHC RDW Plt Count MPV Neutrophils % Lymphocytes % Monocytes % Eosinophils % Basophils % PT with INR INR PTT (Actin FS) POC Glucometer 357 329 Creatine Kinase Troponin I 0.83 H* Blood Type Antibody Screen 07/24/17 07/24/17 05:05 05:12 WBC 6.4 RBC 2.79 L Hgb 7.9 L Hct 24.0 L MCV 86.3 MCH 28.4 MCHC 32.9 RDW 16.1 H Plt Count 214 MPV 7.2 L Neutrophils % 76.6 Lymphocytes % 10.3 Monocytes % 9.3 Eosinophils % 2.9 Basophils % 0.9 PT with INR INR PTT (Actin FS) POC Glucometer 194 Creatine Kinase Troponin I Blood Type Antibody Screen Active Medications Generic Name Dose Route Start Last Admin Trade Name Freq PRN Reason Stop Dose Admin Atorvastatin Calcium 20 mg 07/23/17 22:00 07/23/17 21:52 Lipitor - PO 20 mg HS ROSIE Administration Carvedilol 12.5 mg 07/23/17 22:00 07/23/17 21:52 Coreg - PO 12.5 mg BID ROSIE Administration Cholecalciferol 1,000 unit 07/24/17 10:00 Vitamin D3 - PO DAILY [facility] Citalopram Hydrobromide 20 mg 07/24/17 10:00 Celexa - PO DAILY ROSIE Clopidogrel Bisulfate 75 mg 07/23/17 22:00 07/23/17 21:52 Plavix - PO 75 mg HS ROSIE Administration Docusate Sodium 100 mg 07/23/17 10:53 Colace - PO TID PRN CONSTIPATION Ferrous Sulfate 325 mg 07/24/17 10:00 Feosol - PO DAILY ROSIE Gabapentin 100 mg 07/24/17 10:00 Neurontin - PO DAILY ROSIE Glimepiride 4 mg 07/24/17 07:00 07/24/17 06:04 Amaryl - PO 4 mg AM [facility]IE Administration Insulin Aspart 1 vial 07/23/17 12:58 07/24/17 06:05 Novolog Vial Sliding Scale - SQ 2 units ACHS ROSIE Administration Protocol Lidocaine 1 patch 07/24/17 10:00 Lidoderm Patch - TP DAILY ROSIE Miscellaneous 1 each 07/23/17 22:00 07/23/17 21:52 Lidoderm Patch Removal MC 1 each DAILY@2200 [facility]IE Administration Nifedipine 30 mg 07/24/17 10:00 Procardia Xl - PO DAILY [facility]IE Pantoprazole Sodium 40 mg 07/23/17 13:00 07/23/17 15:55 Protonix - PO 40 mg DAILY [facility] Administration Tamsulosin HCl 0.4 mg 07/23/17 22:00 07/23/17 21:52 Flomax - PO 0.4 mg HS ROSIE Administration ASSESSMENT/PLAN: Patient is a 71 year old male with a significant past medical history of CKD stage 4, CAD s/p CABG (s/p stent x2, CABG), [place], diabetes, chronic back pain (s/ p laminectomy, fusions) and chronic constipation. He presented to the ER from rehab facility after complaining of heartburn followed by 2 episodes of dark vomitus. Patient was recently discharged from [facility] on 07/22 after 4 day hospitalization for elevated troponins attributed to his chronic kidney disease. On admission patient reported feeling lightheaded, now improved. Patient was recently admitted on 07/18/17 with urinary retention and constipation and was found to have an elevated troponin of 1.07. Troponin peaked at 2.74 and then trended down to 0.71. Cardiology followed patient during hospitalization and no further intervention was necessary due to CKD. Upon discharge, patient was to follow up with alcoholic counselor Dr. Ángel Murguia. Cardiology Rule out ACS Troponin trended to 0.97, 0.88, 0.[address] with 2nd degree AV block with 3.1 AV conduction Sinus concepcion 60s on bus driver/monitor On Plavix and ASA, but ASA on hold secondary to possible coffee ground emesis Echo on 07/22 shows severe pulmonary hypertension, severe TR Lasix on hold 2/2 to worsening CKD As per cardiology, optimize medical therapy since pt remains asymptomatic with downtrending troponins No further cardiac intervention On Procardia XL, Carvedilol, Plavix, Lasix on hold d/t compromised renal function GI: Coffee Ground emesis, resolved Reported to have had 2 episodes of coffee ground emesis at nursing facility, none since admission, however his hmg/hct lower than admission 1 unit of prbc now to keep hmg> 8.0 Protonix IV daily, started on Carafate GI following Patient had a recent EGD on 06/13/2017 with showed no significant pathology or acute GI bleed Renal CKD Baseline creat. 3.7, presents to ER with creat of 4.7, now 4.1 Nephrology consulted and following Hold lasix Chronic urinary retention Neurogenic bladder history Has indwelling chronic witt catheter UA and UC ordered Skeletal Chronic back pain On Neurontin, Lidoderm patches Endocrine Diabetes Lantus, Novolog diabetic diet Hematology Anemia hmg/hct downtrending, for 1 unit of prbc today, repeat cbc after prbc On iron supplements Monitor and transfuse if hmg <8 F.E.N. Fluids: PO intake Electrolytes: monitor Nutrition: clears Prophylaxis DVT: SCDS Gi: Protonix Visit type - Emergency Visit Emergency Visit: Yes ED Registration Date: 07/23/17 Care time: The patient presented to the Emergency Department on the above date and was hospitalized for further evaluation of their emergent condition. - New Patient This patient is new to me today: No - Critical Care Critical Care patient: No - Discharge Referral Referred to [facility] Med P.C.: No
[2017-07-24 08:48] LABS: ALK PHOS 118 U/L (45-117); SGPT/ALT 19 U/L (12-78)
[2017-07-24 08:55] LABS: TROPONIN I 0.83 ng/ml (0.00-0.05)
[2017-07-24] MEDS: NIFEdipine E.R. 30 MG TABLET (FP) PO SCH (09:42)
[2017-07-24] MEDS: CHOLECALCIFEROL (VITAMIN D3) 1,000 UNIT TABLET (FP) PO SCH (09:42)
[2017-07-24] MEDS: LIDOCAINE 5% TOPICAL PATCH TP SCH (09:42)
[2017-07-24] MEDS: CITALOPRAM HYDROBROMIDE 20 MG TABLET (FP) PO SCH (09:42)
[2017-07-24] MEDS: GABAPENTIN 100 MG CAPSULE (FP) PO SCH (09:42)
[2017-07-24] MEDS: PANTOPRAZOLE 40 MG TABLET (FP) PO SCH (09:42)
[2017-07-24] MEDS: FERROUS SO4 325 MG TABLET (FP) PO SCH (09:42)
[2017-07-24] MEDS: CARVEDILOL 12.5 MG TABLET (FP) PO SCH ×2 (09:43→21:55)
--- NOTE | 2017-07-24 09:55 | PN ---
Progress Note, Physician History of Present Illness: Chart reviewed. No events. comfortable - Current Medication List Current Medications: Active Medications Atorvastatin Calcium (Lipitor -) 20 mg PO HS [facility] Last Admin: 07/23/17 21:52 Dose: 20 mg Carvedilol (Coreg -) 12.5 mg PO BID [facility] Last Admin: 07/24/17 09:43 Dose: 12.5 mg Cholecalciferol (Vitamin D3 -) 1,000 unit PO DAILY [facility] Last Admin: 07/24/17 09:42 Dose: 1,000 unit Citalopram Hydrobromide (Celexa -) 20 mg PO DAILY [facility] Last Admin: 07/24/17 09:42 Dose: 20 mg Clopidogrel Bisulfate (Plavix -) 75 mg PO HS [facility] Last Admin: 07/23/17 21:52 Dose: 75 mg Docusate Sodium (Colace -) 100 mg PO TID PRN PRN Reason: CONSTIPATION Ferrous Sulfate (Feosol -) 325 mg PO DAILY [facility] Last Admin: 07/24/17 09:42 Dose: 325 mg Gabapentin (Neurontin -) 100 mg PO DAILY [facility] Last Admin: 07/24/17 09:42 Dose: 100 mg Glimepiride (Amaryl -) 4 mg PO AM [facility] Last Admin: 07/24/17 06:04 Dose: 4 mg Insulin Aspart (Novolog Vial Sliding Scale -) 1 vial SQ ACHS [facility] PRN Reason: Protocol Last Admin: 07/24/17 06:05 Dose: 2 units Lidocaine (Lidoderm Patch -) 1 patch TP DAILY [facility] Last Admin: 07/24/17 09:42 Dose: 1 patch Miscellaneous (Lidoderm Patch Removal) 1 each MC DAILY@2200 [facility] Last Admin: 07/23/17 21:52 Dose: 1 each Nifedipine (Procardia Xl -) 30 mg PO DAILY [facility] Last Admin: 07/24/17 09:42 Dose: 30 mg Pantoprazole Sodium (Protonix -) 40 mg PO DAILY [facility] Last Admin: 07/24/17 09:42 Dose: 40 mg Tamsulosin HCl (Flomax -) 0.4 mg PO HS [facility] Last Admin: 07/23/17 21:52 Dose: 0.4 mg - Objective Vital Signs: Vital Signs Temperature 98.2 F 07/24/17 08:00 Pulse Rate 58 L 07/24/17 08:00 Respiratory Rate 14 07/24/17 08:00 Blood Pressure 158/74 07/24/17 08:00 O2 Sat by Pulse Oximetry (%) 96 07/23/17 21:00 Constitutional: Yes: No Distress Eyes: Yes: Conjunctiva Clear HENT: Yes: Atraumatic Neck: Yes: Supple Gastrointestinal: Yes: Soft. No: Melena, Rectal Bleeding, Tenderness, Tenderness, Epigastrium, Vomiting Neurological: Yes: Alert, Oriented Labs: CBC, BMP 07/24/17 05:05 07/24/17 05:05 INR, PTT INR 1.27 (0.82-1.09) H 07/23/17 08:15 CBCD WBC 6.4 K/mm3 (4.0-10.0) 07/24/17 05:05 RBC 2.79 M/mm3 (4.00-5.60) L 07/24/17 05:05 Hgb 7.9 GM/dL (11.7-16.9) L 07/24/17 05:05 Hct 24.0 % (35.4-49) L 07/24/17 05:05 MCV 86.3 fl (80-96) 07/24/17 05:05 MCHC 32.9 g/dl (32.0-35.9) 07/24/17 05:05 RDW 16.1 % (11.9-15.9) H 07/24/17 05:05 Plt Count 214 K/MM3 (134-434) 07/24/17 05:05 MPV 7.2 fl (7.5-11.1) L 07/24/17 05:05 CMP Sodium 139 mmol/L (136-145) 07/24/17 05:05 Potassium 4.8 mmol/L (3.5-5.1) 07/24/17 05:05 Chloride 106 mmol/L (98-107) 07/24/17 05:05 Carbon Dioxide 26 mmol/L (21-32) 07/24/17 05:05 Anion Gap 7 (8-16) L 07/24/17 05:05 BUN 77 mg/dL (7-18) H 07/24/17 05:05 Creatinine 4.1 mg/dL (0.7-1.3) H 07/24/17 05:05 Creat Clearance w eGFR 14.46 (>60) 07/24/17 05:05 Calcium 8.0 mg/dL (8.5-10.1) L 07/24/17 05:05 Total Bilirubin 0.6 mg/dL (0.2-1.0) D 07/24/17 05:05 AST 11 U/L (15-37) L 07/24/17 05:05 ALT 19 U/L (12-78) D 07/24/17 05:05 Alkaline Phosphatase 118 U/L (45-117) H 07/24/17 05:05 Total Protein 6.1 g/dl (6.4-8.2) L 07/24/17 05:05 Albumin 2.8 g/dl (3.4-5.0) L 07/24/17 05:05 Problem List - Problems (1) Anemia Code(s): D64.9 - ANEMIA, UNSPECIFIED Qualifiers: Anemia type: iron deficiency Iron deficiency anemia type: other iron deficiency Qualified Code(s): D50.8 - Other iron deficiency anemias Assessment/Plan Anemia of chronic disease, CKD Continue Protonix, Iron. Consider carafate 1 gm bid if not contraindicated. Avoid NSAIDs Miralax PRN Renal, cardiac diet as tolerated will follow
[2017-07-24] MEDS ORDERED: ASPIRIN 81 MG CHEWABLE TABLETS PO SCH (10:00)
[2017-07-24] MEDS ORDERED: FUROSEMIDE 40 MG TABLET (FP) PO SCH (10:00)
--- NOTE | 2017-07-24 13:31 | PN ---
Progress Note, Physician History of Present Illness: Pt seen and examined at bedside. He is awake and alert. He denies shortness of breath. He is currently getting a blood transfusion. - Current Medication List Current Medications: Active Medications Atorvastatin Calcium (Lipitor -) 20 mg PO HS [facility] Last Admin: 07/23/17 21:52 Dose: 20 mg Carvedilol (Coreg -) 12.5 mg PO BID [facility] Last Admin: 07/24/17 09:43 Dose: 12.5 mg Cholecalciferol (Vitamin D3 -) 1,000 unit PO DAILY [facility] Last Admin: 07/24/17 09:42 Dose: 1,000 unit Citalopram Hydrobromide (Celexa -) 20 mg PO DAILY [facility] Last Admin: 07/24/17 09:42 Dose: 20 mg Clopidogrel Bisulfate (Plavix -) 75 mg PO HS [facility] Last Admin: 07/23/17 21:52 Dose: 75 mg Docusate Sodium (Colace -) 100 mg PO TID PRN PRN Reason: CONSTIPATION Ferrous Sulfate (Feosol -) 325 mg PO DAILY [facility] Last Admin: 07/24/17 09:42 Dose: 325 mg Gabapentin (Neurontin -) 100 mg PO DAILY [facility] Last Admin: 07/24/17 09:42 Dose: 100 mg Glimepiride (Amaryl -) 4 mg PO AM [facility] Last Admin: 07/24/17 06:04 Dose: 4 mg Insulin Aspart (Novolog Vial Sliding Scale -) 1 vial SQ ACHS [facility] PRN Reason: Protocol Last Admin: 07/24/17 12:17 Dose: 4 units Lidocaine (Lidoderm Patch -) 1 patch TP DAILY [facility] Last Admin: 07/24/17 09:42 Dose: 1 patch Miscellaneous (Lidoderm Patch Removal) 1 each MC DAILY@2200 [facility] Last Admin: 07/23/17 21:52 Dose: 1 each Nifedipine (Procardia Xl -) 30 mg PO DAILY [facility] Last Admin: 07/24/17 09:42 Dose: 30 mg Pantoprazole Sodium (Protonix -) 40 mg PO DAILY [facility] Last Admin: 07/24/17 09:42 Dose: 40 mg Tamsulosin HCl (Flomax -) 0.4 mg PO HS [facility] Last Admin: 07/23/17 21:52 Dose: 0.4 mg - Objective Vital Signs: Vital Signs Temperature 98.2 F 07/24/17 08:00 Pulse Rate 58 L 07/24/17 08:00 Respiratory Rate 14 07/24/17 09:00 Blood Pressure 158/74 07/24/17 08:00 O2 Sat by Pulse Oximetry (%) 96 07/24/17 09:00 Constitutional: Yes: Calm Eyes: Yes: Conjunctiva Clear HENT: Yes: Atraumatic Neck: Yes: Supple Cardiovascular: Yes: S1, S2 Respiratory: Yes: CTA Bilaterally Gastrointestinal: Yes: Soft Genitourinary: Yes: WNL Musculoskeletal: Yes: WNL Edema: No Neurological: Yes: Oriented Psychiatric: Yes: Oriented Labs: CBC, BMP 07/24/17 05:05 07/24/17 05:05 INR, PTT INR 1.27 (0.82-1.09) H 07/23/17 08:15 Problem List - Problems (1) Anemia Code(s): D64.9 - ANEMIA, UNSPECIFIED Qualifiers: Anemia type: iron deficiency Iron deficiency anemia type: other iron deficiency Qualified Code(s): D50.8 - Other iron deficiency anemias (2) CAD (coronary artery disease) Code(s): I25.10 - ATHSCL HEART DISEASE OF [place] CORONARY ARTERY W/O ANG PCTRS Qualifiers: Coronary Disease-Associated Artery/Lesion type: [place] artery [place] vs. transplanted heart: [place] heart Associated angina: without angina Qualified Code(s): I25.10 - Atherosclerotic heart disease of [place] coronary artery without angina pectoris (3) CKD (chronic kidney disease) Code(s): N18.9 - CHRONIC KIDNEY DISEASE, UNSPECIFIED Qualifiers: Chronic kidney disease stage: unspecified stage Qualified Code(s): N18.9 - Chronic kidney disease, unspecified (4) HTN (hypertension) Code(s): I10 - ESSENTIAL (PRIMARY) HYPERTENSION Qualifiers: Hypertension type: essential hypertension Qualified Code(s): I10 - Essential (primary) hypertension Assessment/Plan Current Medications Generic Name Dose Route Start Last Admin Trade Name Freq PRN Reason Stop Dose Admin Atorvastatin Calcium 20 mg 07/23/17 22:00 07/23/17 21:52 Lipitor - PO 20 mg HS ROSIE Administration Carvedilol 12.5 mg 07/23/17 22:00 07/24/17 09:43 Coreg - PO 12.5 mg BID ROSIE Administration Cholecalciferol 1,000 unit 07/24/17 10:00 07/24/17 09:42 Vitamin D3 - PO 1,000 unit DAILY ROSIE Administration Citalopram Hydrobromide 20 mg 07/24/17 10:00 07/24/17 09:42 Celexa - PO 20 mg DAILY ROSIE Administration Clopidogrel Bisulfate 75 mg 07/23/17 22:00 07/23/17 21:52 Plavix - PO 75 mg HS ROSIE Administration Docusate Sodium 100 mg 07/23/17 10:53 Colace - PO TID PRN CONSTIPATION Ferrous Sulfate 325 mg 07/24/17 10:00 07/24/17 09:42 Feosol - PO 325 mg DAILY ROSIE Administration Gabapentin 100 mg 07/24/17 10:00 07/24/17 09:42 Neurontin - PO 100 mg DAILY ROSIE Administration Glimepiride 4 mg 07/24/17 07:00 07/24/17 06:04 Amaryl - PO 4 mg AM ROSIE Administration Insulin Aspart 1 vial 07/23/17 12:58 07/24/17 12:17 Novolog Vial Sliding Scale - SQ 4 units ACHS ROSIE Administration Protocol Lidocaine 1 patch 07/24/17 10:00 07/24/17 09:42 Lidoderm Patch - TP 1 patch DAILY ROSIE Administration Miscellaneous 1 each 07/23/17 22:00 07/23/17 21:52 Lidoderm Patch Removal MC 1 each DAILY@2200 ROSIE Administration Nifedipine 30 mg 07/24/17 10:00 07/24/17 09:42 Procardia Xl - PO 30 mg DAILY ROSIE Administration Pantoprazole Sodium 40 mg 07/23/17 13:00 07/24/17 09:42 Protonix - PO 40 mg DAILY ROSIE Administration Tamsulosin HCl 0.4 mg 07/23/17 22:00 07/23/17 21:52 Flomax - PO 0.4 mg HS ROSIE Administration Impression 1. CKD 2. anemia 3. HTN 4. Chol 5. DM 6. BPH 7. CAD 8. urinary retention 9. GI bleed Plan - can restart lasix - pt is getting PRBCs now - will give a dose of procrit - maintain witt as he has obstruction - serial cbc - will follow Dr Donovan
[2017-07-24] MEDS ORDERED: EPOETIN ALFA 10,000 UNIT/1 ML VIAL SQ ONE (14:00)
[2017-07-24] MEDS: FUROSEMIDE 40 MG TABLET (FP) PO SCH (14:37)
[2017-07-24] MEDS: SUCRALFATE 1 GM TABLET (FP) PO SCH ×2 (14:37→21:55)
[2017-07-24 17:39] LABS: BASO % 1.1 % (0-2.0); EOS % 2.6 % (0-4.5); MCH 28.6 pg (25.7-33.7); MCHC 33.3 g/dl (32.0-35.9); MEAN CELL VOLUME 85.9 fl (80-96); MEAN PLT VOLUME 7.3 fl (7.5-11.1); NEUT % 72.2 % (42.8-82.8); PLATELET COUNT 214 K/MM3 (134-434); RDW 15.6 % (11.9-15.9); WHITE BLOOD COUNT 5.7 K/mm3 (4.0-10.0)
[2017-07-24] MEDS: TAMSULOSIN HCL 0.4 MG CAP.ER.24H (FP) PO SCH (21:55)
[2017-07-24] MEDS: ATORVASTATIN CA 20 MG TABLET (FP) PO SCH (21:55)
[2017-07-24] MEDS: CLOPIDOGREL BISULFATE 75 MG TABLET (FP) PO SCH (21:55)
[2017-07-24] MEDS: LIDOCAINE PATCH REMOVAL MC SCH (21:58)
[2017-07-24] MEDS ORDERED: INSULIN DETEMIR 100 UNITS/ML MDV SQ SCH (22:00)
[2017-07-25] MEDS: INSULIN SLIDING SCALE (NOVOLOG) 1 VIAL SQ SCH ×2 (06:13→11:44)
[2017-07-25] MEDS: GLIMEPIRIDE 4 MG TABLET (FP) PO SCH (06:15)
[2017-07-25 07:41] LABS: EOS % 2.4 % (0-4.5); MCH 28.4 pg (25.7-33.7); MCHC 33.2 g/dl (32.0-35.9); MEAN CELL VOLUME 85.7 fl (80-96); NEUT % 71.8 % (42.8-82.8); PLATELET COUNT 221 K/MM3 (134-434); RDW 15.5 % (11.9-15.9)
[2017-07-25 08:30] LABS: ANION GAP 9 (8-16); CO2 28 mmol/L (21-32)
[2017-07-25 08:36] LABS: ALBUMIN 2.8 g/dl (3.4-5.0); ALK PHOS 120 U/L (45-117); BILIRUBIN,TOTAL 0.9 mg/dL (0.2-1.0); CALCIUM 8.1 mg/dL (8.5-10.1); CREATININE 3.8 mg/dL (0.7-1.3); GLUCOSE,RANDOM 124 mg/dL (74-106); SGOT/AST 10 U/L (15-37); SGPT/ALT 17 U/L (12-78); TOT PROT 6.2 g/dl (6.4-8.2)
[2017-07-25] MEDS: CHOLECALCIFEROL (VITAMIN D3) 1,000 UNIT TABLET (FP) PO SCH (09:48)
[2017-07-25] MEDS: SUCRALFATE 1 GM TABLET (FP) PO SCH (09:48)
[2017-07-25] MEDS: PANTOPRAZOLE 40 MG TABLET (FP) PO SCH (09:48)
[2017-07-25] MEDS: CARVEDILOL 12.5 MG TABLET (FP) PO SCH (09:49)
[2017-07-25] MEDS: FUROSEMIDE 40 MG TABLET (FP) PO SCH (09:49)
[2017-07-25] MEDS: NIFEdipine E.R. 30 MG TABLET (FP) PO SCH (09:49)
[2017-07-25] MEDS: GABAPENTIN 100 MG CAPSULE (FP) PO SCH (09:49)
[2017-07-25] MEDS: LIDOCAINE 5% TOPICAL PATCH TP SCH (09:49)
[2017-07-25] MEDS: CITALOPRAM HYDROBROMIDE 20 MG TABLET (FP) PO SCH (09:49)
[2017-07-25] MEDS: FERROUS SO4 325 MG TABLET (FP) PO SCH (09:49)
--- NOTE | 2017-07-25 09:50 | PN ---
Progress Note, Physician History of Present Illness: No further heartburn or emesis. - Current Medication List Current Medications: Active Medications Atorvastatin Calcium (Lipitor -) 20 mg PO HS [facility] Last Admin: 07/24/17 21:55 Dose: 20 mg Carvedilol (Coreg -) 12.5 mg PO BID [facility] Last Admin: 07/24/17 21:55 Dose: 12.5 mg Cholecalciferol (Vitamin D3 -) 1,000 unit PO DAILY [facility] Last Admin: 07/24/17 09:42 Dose: 1,000 unit Citalopram Hydrobromide (Celexa -) 20 mg PO DAILY [facility] Last Admin: 07/24/17 09:42 Dose: 20 mg Clopidogrel Bisulfate (Plavix -) 75 mg PO HS [facility] Last Admin: 07/24/17 21:55 Dose: 75 mg Docusate Sodium (Colace -) 100 mg PO TID PRN PRN Reason: CONSTIPATION Ferrous Sulfate (Feosol -) 325 mg PO DAILY [facility] Last Admin: 07/24/17 09:42 Dose: 325 mg Furosemide (Lasix -) 40 mg PO DAILY [facility] Last Admin: 07/24/17 14:37 Dose: 40 mg Gabapentin (Neurontin -) 100 mg PO DAILY [facility] Last Admin: 07/24/17 09:42 Dose: 100 mg Glimepiride (Amaryl -) 4 mg PO AM [facility] Last Admin: 07/25/17 06:15 Dose: 4 mg Insulin Aspart (Novolog Vial Sliding Scale -) 1 vial SQ ACHS [facility] PRN Reason: Protocol Last Admin: 07/25/17 06:13 Dose: 2 units Insulin Detemir (Levemir Vial) 15 units SQ HS [facility] Last Admin: 07/24/17 21:55 Dose: 15 units Lidocaine (Lidoderm Patch -) 1 patch TP DAILY [facility] Last Admin: 07/24/17 09:42 Dose: 1 patch Miscellaneous (Lidoderm Patch Removal) 1 each MC DAILY@2200 [facility] Last Admin: 07/24/17 21:58 Dose: 1 each Nifedipine (Procardia Xl -) 30 mg PO DAILY [facility] Last Admin: 07/24/17 09:42 Dose: 30 mg Pantoprazole Sodium (Protonix -) 40 mg PO DAILY [facility] Last Admin: 07/24/17 09:42 Dose: 40 mg Sucralfate (Carafate -) 1 gm PO BID [facility] Last Admin: 07/24/17 21:55 Dose: 1 gm Tamsulosin HCl (Flomax -) 0.4 mg PO HS [facility] Last Admin: 07/24/17 21:55 Dose: 0.4 mg - Objective Vital Signs: Vital Signs Temperature 98.1 F 07/25/17 06:00 Pulse Rate 55 L 07/25/17 06:00 Respiratory Rate 18 07/25/17 06:00 Blood Pressure 140/64 07/25/17 06:00 O2 Sat by Pulse Oximetry (%) 96 07/24/17 21:00 Constitutional: Yes: No Distress, Calm Neck: Yes: Supple Cardiovascular: Yes: Regular Rate and Rhythm Respiratory: Yes: Regular, CTA Bilaterally Gastrointestinal: Yes: Soft, Hypoactive Bowel Sounds Edema: No Labs: CBC, BMP 07/25/17 05:25 07/25/17 05:25 INR, PTT INR 1.27 (0.82-1.09) H 07/23/17 08:15 - ....Imaging EKG: Report Reviewed (Tele: NSR) Problem List - Problems (1) Troponin level elevated Code(s): R74.8 - ABNORMAL LEVELS OF OTHER SERUM ENZYMES (2) Anemia Code(s): D64.9 - ANEMIA, UNSPECIFIED Qualifiers: Anemia type: iron deficiency Iron deficiency anemia type: other iron deficiency Qualified Code(s): D50.8 - Other iron deficiency anemias (3) Urinary retention Code(s): R33.9 - RETENTION OF URINE, UNSPECIFIED (4) CAD (coronary artery disease) Code(s): I25.10 - ATHSCL HEART DISEASE OF [place] CORONARY ARTERY W/O ANG PCTRS Qualifiers: Coronary Disease-Associated Artery/Lesion type: [place] artery [place] vs. transplanted heart: [place] heart Associated angina: without angina Qualified Code(s): I25.10 - Atherosclerotic heart disease of [place] coronary artery without angina pectoris (5) CKD (chronic kidney disease) Code(s): N18.9 - CHRONIC KIDNEY DISEASE, UNSPECIFIED Qualifiers: Chronic kidney disease stage: unspecified stage Qualified Code(s): N18.9 - Chronic kidney disease, unspecified (6) Diabetes Code(s): E11.9 - TYPE 2 DIABETES MELLITUS WITHOUT COMPLICATIONS Qualifiers: 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 type: type 2 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 complication status: with kidney complications 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 complication detail: with nephropathy 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 retirement insulin use: unspecified retirement insulin use status Qualified Code(s): E11.21 - Type 2 diabetes mellitus with diabetic nephropathy (7) HTN (hypertension) Code(s): I10 - ESSENTIAL (PRIMARY) HYPERTENSION Qualifiers: Hypertension type: essential hypertension Qualified Code(s): I10 - Essential (primary) hypertension (8) Hx of CABG Code(s): Z95.1 - PRESENCE OF AORTOCORONARY BYPASS GRAFT (9) Hypercholesterolemia Code(s): E78.00 - PURE HYPERCHOLESTEROLEMIA, UNSPECIFIED (10) PAD (peripheral artery disease) Code(s): I73.9 - PERIPHERAL VASCULAR DISEASE, UNSPECIFIED (11) Neurogenic bladder Code(s): N31.9 - NEUROMUSCULAR DYSFUNCTION OF [place], UNSPECIFIED (12) Demand ischemia Code(s): I24.8 - OTHER FORMS OF ACUTE ISCHEMIC HEART DISEASE (13) Acute on chronic renal failure Code(s): N17.9 - ACUTE KIDNEY FAILURE, UNSPECIFIED; N18.9 - CHRONIC KIDNEY DISEASE, UNSPECIFIED Qualifiers: Chronic kidney disease stage: stage 4 (severe) Assessment/Plan 1. Hematemesis/upper gastro-intestinal bleed, probable ASA-associated gastritis since resolved 2. CAD post CABG, angina pectoris with evidence of demand ischemic injury, related to above 3. Diastolic LV dysfunction with class 0 NYHA classification LV failure 4. Hypertension/HCVD 5. 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 6. Hypercholesterolemia 7. PAD post peripheral bypass surgery 8. Acute on CKD resolving 9. Anemia of chronic disease post transfusion 10. BPH, urinary retention PLAN: 1. As outlined in the initial consultation to optimize medical therapy considering that he is asymptomatic with down-trending Troponin I, would not pursue any further cardiac intervention 2. Continue Carvedilol 12.5 bid 3. Continue Procardia XL 30 qd 4. Continue Plavix 75 qd with caution 5. Resume Lasix 40 qd given renal function recovery and stabilization 6. Continue Atorvastatin 20 qhs 7. Transfuse to maintain Hg equal or > 8.0, GI protection with PPI and carafate 8. Maintain Chen 9. Advance diet, D/c planning, f/u with Dr. Ángel Murguia at [facility]
--- NOTE | 2017-07-25 10:27 | PN ---
Progress Note, Physician History of Present Illness: Chart reviewed. No events. comfortable. C/o constipation - Current Medication List Current Medications: Active Medications Atorvastatin Calcium (Lipitor -) 20 mg PO HS [facility] Last Admin: 07/24/17 21:55 Dose: 20 mg Carvedilol (Coreg -) 12.5 mg PO BID [facility] Last Admin: 07/25/17 09:49 Dose: 12.5 mg Cholecalciferol (Vitamin D3 -) 1,000 unit PO DAILY [facility] Last Admin: 07/25/17 09:48 Dose: 1,000 unit Citalopram Hydrobromide (Celexa -) 20 mg PO DAILY [facility] Last Admin: 07/25/17 09:49 Dose: 20 mg Clopidogrel Bisulfate (Plavix -) 75 mg PO HS [facility] Last Admin: 07/24/17 21:55 Dose: 75 mg Docusate Sodium (Colace -) 100 mg PO TID PRN PRN Reason: CONSTIPATION Ferrous Sulfate (Feosol -) 325 mg PO DAILY [facility] Last Admin: 07/25/17 09:49 Dose: 325 mg Furosemide (Lasix -) 40 mg PO DAILY [facility] Last Admin: 07/25/17 09:49 Dose: 40 mg Gabapentin (Neurontin -) 100 mg PO DAILY [facility] Last Admin: 07/25/17 09:49 Dose: 100 mg Glimepiride (Amaryl -) 4 mg PO AM [facility] Last Admin: 07/25/17 06:15 Dose: 4 mg Insulin Aspart (Novolog Vial Sliding Scale -) 1 vial SQ ACHS [facility] PRN Reason: Protocol Last Admin: 07/25/17 06:13 Dose: 2 units Insulin Detemir (Levemir Vial) 15 units SQ HS [facility] Last Admin: 07/24/17 21:55 Dose: 15 units Lidocaine (Lidoderm Patch -) 1 patch TP DAILY [facility] Last Admin: 07/25/17 09:49 Dose: 1 patch Miscellaneous (Lidoderm Patch Removal) 1 each MC DAILY@2200 [facility] Last Admin: 07/24/17 21:58 Dose: 1 each Nifedipine (Procardia Xl -) 30 mg PO DAILY [facility] Last Admin: 07/25/17 09:49 Dose: 30 mg Pantoprazole Sodium (Protonix -) 40 mg PO DAILY [facility] Last Admin: 07/25/17 09:48 Dose: 40 mg Sucralfate (Carafate -) 1 gm PO BID [facility] Last Admin: 07/25/17 09:48 Dose: 1 gm Tamsulosin HCl (Flomax -) 0.4 mg PO HS [facility] Last Admin: 07/24/17 21:55 Dose: 0.4 mg - Objective Vital Signs: Vital Signs Temperature 97.8 F 07/25/17 10:00 Pulse Rate 65 07/25/17 10:00 Respiratory Rate 22 07/25/17 10:00 Blood Pressure 145/56 07/25/17 10:00 O2 Sat by Pulse Oximetry (%) 97 07/25/17 09:00 Constitutional: Yes: No Distress, Calm Eyes: Yes: Conjunctiva Clear HENT: Yes: Atraumatic Neck: Yes: Supple Cardiovascular: Yes: Regular Rate and Rhythm Respiratory: Yes: Regular Gastrointestinal: Yes: Soft. No: Melena, Rectal Bleeding, Tenderness, Tenderness, Epigastrium, Vomiting Labs: CBC, BMP 07/25/17 05:25 07/25/17 05:25 INR, PTT INR 1.27 (0.82-1.09) H 07/23/17 08:15 CBCD WBC 6.0 K/mm3 (4.0-10.0) 07/25/17 05:25 RBC 3.13 M/mm3 (4.00-5.60) L 07/25/17 05:25 Hgb 8.9 GM/dL (11.7-16.9) L 07/25/17 05:25 Hct 26.8 % (35.4-49) L 07/25/17 05:25 MCV 85.7 fl (80-96) 07/25/17 05:25 MCHC 33.2 g/dl (32.0-35.9) 07/25/17 05:25 RDW 15.5 % (11.9-15.9) 07/25/17 05:25 Plt Count 221 K/MM3 (134-434) 07/25/17 05:25 MPV 7.0 fl (7.5-11.1) L 07/25/17 05:25 CMP Sodium 141 mmol/L (136-145) 07/25/17 05:25 Potassium 4.4 mmol/L (3.5-5.1) 07/25/17 05:25 Chloride 104 mmol/L (98-107) 07/25/17 05:25 Carbon Dioxide 28 mmol/L (21-32) 07/25/17 05:25 Anion Gap 9 (8-16) 07/25/17 05:25 BUN 66 mg/dL (7-18) H 07/25/17 05:25 Creatinine 3.8 mg/dL (0.7-1.3) H 07/25/17 05:25 Creat Clearance w eGFR 15.78 (>60) 07/25/17 05:25 Calcium 8.1 mg/dL (8.5-10.1) L 07/25/17 05:25 Total Bilirubin 0.9 mg/dL (0.2-1.0) D 07/25/17 05:25 AST 10 U/L (15-37) L 07/25/17 05:25 ALT 17 U/L (12-78) 07/25/17 05:25 Alkaline Phosphatase 120 U/L (45-117) H 07/25/17 05:25 Total Protein 6.2 g/dl (6.4-8.2) L 07/25/17 05:25 Albumin 2.8 g/dl (3.4-5.0) L 07/25/17 05:25 Problem List - Problems (1) Anemia Code(s): D64.9 - ANEMIA, UNSPECIFIED Qualifiers: Anemia type: iron deficiency Iron deficiency anemia type: other iron deficiency Qualified Code(s): D50.8 - Other iron deficiency anemias Assessment/Plan Anemia of chronic disease, CKD Continue Protonix, Iron. Avoid NSAIDs Miralax PRN Renal, cardiac diet as tolerated
[2017-07-25] MEDS ORDERED: POLYETHYLENE GLYCOL 3350 119 GM BTL PO SCH (10:30)
--- NOTE | 2017-07-25 12:12 | DS ---
Physical Examination Vital Signs: Vital Signs Temperature 97.8 F 07/25/17 10:00 Pulse Rate 65 07/25/17 10:00 Respiratory Rate 22 07/25/17 10:00 Blood Pressure 145/56 07/25/17 10:00 O2 Sat by Pulse Oximetry (%) 97 07/25/17 09:00 Labs: CBC, BMP 07/25/17 05:25 07/25/17 05:25 Discharge Summary Reason For Visit: ANEMIA,ELEVATED TROPONIN LEVEL Current Active Problems Troponin level elevated (Acute) Upper GI bleed (Acute) Anemia (Chronic) Condition: Stable - Instructions Diet, Activity, Other Instructions: Please return to the ED with new, persistent, or worsening symptoms. Please follow-up with providers as indicated. Please follow-up with Dr. Ángel Murguia within 1 week. Avoid all NSAIDS Do NOT take aspirin until you follow-up with Dr. Taylor and he states it is ok to resume. Referrals: Artie Taylor MD [Staff Physician] - (Please follow-up with Dr. Taylor within 1 week. ) Bernardo Del Valle MD [Primary Care Provider] - 1 Week Disposition: HOME - Home Medications Comprehensive Discharge Medication List: Ambulatory Orders Cholecalciferol (Vitamin D3) [Vitamin D3] 1,000 unit PO DAILY tablet 09/02/12 Clopidogrel Bisulfate [Clopidogrel] 75 mg PO HS #90 tablet 01/10/16 Carvedilol 12.5 mg PO BID 06/11/17 Ferrous Sulfate [Feosol] 325 mg PO DAILY ud 07/12/17 Docusate Sodium [Colace -] 300 mg PO HS 07/14/17 Insulin Glargine,Hum.rec.anlog [Lantus Solostar PEN -] 15 units SQ HS 07/14/17 Lidocaine 5% Patch [Lidoderm -] 1 patch TP DAILY #7 patch 07/15/17 Nifedipine ER [Procardia XL -] 30 mg PO DAILY tab.er.24 07/22/17 Polyethylene Glycol 3350 [Miralax 119 gm Btl -] 17 gm PO DAILY bottle 07/22/17 Acetaminophen [Non-Aspirin Pain Relief] 650 mg PO Q6H PRN 07/23/17 Furosemide [Lasix -] 40 mg PO BID 07/23/17 Insulin Sliding Scale [Novolog Vial Sliding Scale -] 1 vial SQ TIDAC PRN Simvastatin 40 mg PO HS 07/23/17 Pantoprazole Sodium [Protonix -] 40 mg PO DAILY #30 tablet.ec 07/25/17 Sucralfate [Carafate -] 1 gm PO BID #60 tablet 07/25/17 Tamsulosin HCl [Flomax -] 0.4 mg PO HS cap.er.24h 07/25/17 - Discharge Referral Referred to [facility] No
--- NOTE | 2017-07-25 13:35 | PN ---
Progress Note, Physician History of Present Illness: Pt seen and examined at bedside. He is awake and alert. He is tolerating diet. - Current Medication List Current Medications: Active Medications Atorvastatin Calcium (Lipitor -) 20 mg PO HS PENDING SALE TO [facility] Last Admin: 07/24/17 21:55 Dose: 20 mg Carvedilol (Coreg -) 12.5 mg PO BID PENDING SALE TO [facility] Last Admin: 07/25/17 09:49 Dose: 12.5 mg Cholecalciferol (Vitamin D3 -) 1,000 unit PO DAILY PENDING SALE TO [facility] Last Admin: 07/25/17 09:48 Dose: 1,000 unit Citalopram Hydrobromide (Celexa -) 20 mg PO DAILY PENDING SALE TO [facility] Last Admin: 07/25/17 09:49 Dose: 20 mg Clopidogrel Bisulfate (Plavix -) 75 mg PO HS PENDING SALE TO [facility] Last Admin: 07/24/17 21:55 Dose: 75 mg Docusate Sodium (Colace -) 100 mg PO TID PRN PRN Reason: CONSTIPATION Ferrous Sulfate (Feosol -) 325 mg PO DAILY PENDING SALE TO [facility] Last Admin: 07/25/17 09:49 Dose: 325 mg Furosemide (Lasix -) 40 mg PO BID@0600,1400 PENDING SALE TO [facility] Gabapentin (Neurontin -) 100 mg PO DAILY PENDING SALE TO [facility] Last Admin: 07/25/17 09:49 Dose: 100 mg Glimepiride (Amaryl -) 4 mg PO AM PENDING SALE TO [facility] Last Admin: 07/25/17 06:15 Dose: 4 mg Insulin Aspart (Novolog Vial Sliding Scale -) 1 vial SQ ACHS PENDING SALE TO [facility] PRN Reason: Protocol Last Admin: 07/25/17 11:44 Dose: Not Given Insulin Detemir (Levemir Vial) 15 units SQ HS PENDING SALE TO [facility] Last Admin: 07/24/17 21:55 Dose: 15 units Lidocaine (Lidoderm Patch -) 1 patch TP DAILY PENDING SALE TO [facility] Last Admin: 07/25/17 09:49 Dose: 1 patch Miscellaneous (Lidoderm Patch Removal) 1 each MC DAILY@2200 PENDING SALE TO [facility] Last Admin: 07/24/17 21:58 Dose: 1 each Nifedipine (Procardia Xl -) 30 mg PO DAILY PENDING SALE TO [facility] Last Admin: 07/25/17 09:49 Dose: 30 mg Pantoprazole Sodium (Protonix -) 40 mg PO DAILY PENDING SALE TO [facility] Last Admin: 07/25/17 09:48 Dose: 40 mg Polyethylene Glycol (Miralax (For Daily Use) -) 17 gm PO BID PENDING SALE TO [facility] Last Admin: 07/25/17 11:44 Dose: 17 gm Sucralfate (Carafate -) 1 gm PO BID PENDING SALE TO [facility] Last Admin: 07/25/17 09:48 Dose: 1 gm Tamsulosin HCl (Flomax -) 0.4 mg PO HS PENDING SALE TO [facility] Last Admin: 07/24/17 21:55 Dose: 0.4 mg - Objective Vital Signs: Vital Signs Temperature 97.8 F 07/25/17 10:00 Pulse Rate 65 07/25/17 10:00 Respiratory Rate 22 07/25/17 10:00 Blood Pressure 145/56 07/25/17 10:00 O2 Sat by Pulse Oximetry (%) 97 07/25/17 09:00 Constitutional: Yes: Calm Eyes: Yes: Conjunctiva Clear HENT: Yes: Atraumatic Neck: Yes: Supple Cardiovascular: Yes: S1, S2 Respiratory: Yes: CTA Bilaterally Gastrointestinal: Yes: Soft Genitourinary: Yes: WNL Musculoskeletal: Yes: WNL Edema: No Neurological: Yes: Oriented Psychiatric: Yes: Oriented Labs: CBC, BMP 07/25/17 05:25 07/25/17 05:25 INR, PTT INR 1.27 (0.82-1.09) H 07/23/17 08:15 Problem List - Problems (1) Anemia Code(s): D64.9 - ANEMIA, UNSPECIFIED Qualifiers: Anemia type: iron deficiency Iron deficiency anemia type: other iron deficiency Qualified Code(s): D50.8 - Other iron deficiency anemias (2) CAD (coronary artery disease) Code(s): I25.10 - ATHSCL HEART DISEASE OF [place] CORONARY ARTERY W/O ANG PCTRS Qualifiers: Coronary Disease-Associated Artery/Lesion type: [place] artery [place] vs. transplanted heart: [place] heart Associated angina: without angina Qualified Code(s): I25.10 - Atherosclerotic heart disease of [place] coronary artery without angina pectoris (3) CKD (chronic kidney disease) Code(s): N18.9 - CHRONIC KIDNEY DISEASE, UNSPECIFIED Qualifiers: Chronic kidney disease stage: unspecified stage Qualified Code(s): N18.9 - Chronic kidney disease, unspecified (4) HTN (hypertension) Code(s): I10 - ESSENTIAL (PRIMARY) HYPERTENSION Qualifiers: Hypertension type: essential hypertension Qualified Code(s): I10 - Essential (primary) hypertension Assessment/Plan Current Medications Generic Name Dose Route Start Last Admin Trade Name [place] PRN Reason Stop Dose Admin Atorvastatin Calcium 20 mg 07/23/17 22:00 07/24/17 21:55 Lipitor - PO 20 mg HS ROSIE Administration Carvedilol 12.5 mg 07/23/17 22:00 07/25/17 09:49 Coreg - PO 12.5 mg BID ROSIE Administration Cholecalciferol 1,000 unit 07/24/17 10:00 07/25/17 09:48 Vitamin D3 - PO 1,000 unit DAILY ROSIE Administration Citalopram Hydrobromide 20 mg 07/24/17 10:00 07/25/17 09:49 Celexa - PO 20 mg DAILY ROSIE Administration Clopidogrel Bisulfate 75 mg 07/23/17 22:00 07/24/17 21:55 Plavix - PO 75 mg HS ROSIE Administration Docusate Sodium 100 mg 07/23/17 10:53 Colace - PO TID PRN CONSTIPATION Ferrous Sulfate 325 mg 07/24/17 10:00 07/25/17 09:49 Feosol - PO 325 mg DAILY ROSIE Administration Furosemide 40 mg 07/25/17 14:00 Lasix - PO BID@0600,1400 ROSIE Gabapentin 100 mg 07/24/17 10:00 07/25/17 09:49 Neurontin - PO 100 mg DAILY ROSIE Administration Glimepiride 4 mg 07/24/17 07:00 07/25/17 06:15 Amaryl - PO 4 mg AM ROSIE Administration Insulin Aspart 1 vial 07/23/17 12:58 07/25/17 11:44 Novolog Vial Sliding Scale - SQ Not Given ACHS PENDING SALE TO [facility] Protocol Insulin Detemir 15 units 07/24/17 22:00 07/24/17 21:55 Levemir Vial SQ 15 units HS PENDING SALE TO [facility] Administration Lidocaine 1 patch 07/24/17 10:00 07/25/17 09:49 Lidoderm Patch - TP 1 patch DAILY ROSIE Administration Miscellaneous 1 each 07/23/17 22:00 07/24/17 21:58 Lidoderm Patch Removal MC 1 each DAILY@2200 ROSIE Administration Nifedipine 30 mg 07/24/17 10:00 07/25/17 09:49 Procardia Xl - PO 30 mg DAILY ROSIE Administration Pantoprazole Sodium 40 mg 07/23/17 13:00 07/25/17 09:48 Protonix - PO 40 mg DAILY ROISE Administration Polyethylene Glycol 17 gm 07/25/17 10:30 07/25/17 11:44 Miralax (For Daily Use) - PO 17 gm BID ROSIE Administration Sucralfate 1 gm 07/24/17 13:45 07/25/17 09:48 Carafate - PO 1 gm BID ROSIE Administration Tamsulosin HCl 0.4 mg 07/23/17 22:00 07/24/17 21:55 Flomax - PO 0.4 mg HS ROSIE Administration Impression 1. CKD 2. anemia 3. HTN 4. Chol 5. DM 6. BPH 7. CAD 8. urinary retention 9. GI bleed Plan - cont lasix - will need outpt follow up with Dr Fernandez - pt received a dose of procrit yesterday - maintain witt as he has obstruction - serial cbc - will follow Dr Donovan
[2017-07-25] MEDS ORDERED: FUROSEMIDE 40 MG TABLET (FP) PO SCH (14:00)
[2017-07-25 15:39] VITALS: BP 147/56; PULSE 57; TEMP 98
== END 2017-07-25 16:42 | disposition home or self-care (01) ==
LOC: JER 07:00 → JERBED 09:48 → J4W 15:56
PROVIDERS: ADMIT Internal Medicine; ATTEND Registered Nurse
PROC: 3E013VG Introduction of Insulin into Subcutaneous Tissue, Percutaneous Approach (ICD-10-PCS; principal; 2017-07-23)
PROC: 3E013GC Introduction of Other Therapeutic Substance into Subcutaneous Tissue, Percutaneous Approach (ICD-10-PCS; 2017-07-23)
DX: D50.8 Other iron deficiency anemias (principal); R77.8 Other specified abnormalities of plasma proteins; I12.9 Hypertensive chronic kidney disease with stage 1 through stage 4 chronic kidney disease, or unspecified chronic kidney disease; E11.22 Type 2 diabetes mellitus with diabetic chronic kidney disease; N18.6 End stage renal disease; Z79.4 Long term (current) use of insulin; I25.10 Atherosclerotic heart disease of native coronary artery without angina pectoris; I25.2 Old myocardial infarction; I44.2 Atrioventricular block, complete; E78.5 Hyperlipidemia, unspecified; K21.9 Gastro-esophageal reflux disease without esophagitis; Z95.1 Presence of aortocoronary bypass graft; Z95.5 Presence of coronary angioplasty implant and graft; Z88.8 Allergy status to other drugs, medicaments and biological substances; Z79.82 Long term (current) use of aspirin; R00.1 Bradycardia, unspecified; R33.9 Retention of urine, unspecified; I73.9 Peripheral vascular disease, unspecified; N31.9 Neuromuscular dysfunction of bladder, unspecified; I24.8 Other forms of acute ischemic heart disease
CPT/HCPCS: 36415; 36430; 71010-TC; 80053; 82272; 82550; 83735; 84484; 85025; 85610; 85730; 86850; 86900; 86901; 86922; 93005; 93010; 96372; 99284-25; G0378; J0885; P9038; P9058

== ENCOUNTER 2017-09-05 17:31 | Inpatient (IN) | payer OTHER, MEDICARE ==
--- NOTE | 2017-09-05 18:11 | PDOC ---
Attending Attestation - [facility] HPI: 09/05/17 18:26 The patient is a 71 year old male, with a significant past medical history of anemia, CAD(s/p CABG and stents), CHF, renal insufficiency, diabetes, GERD, GI bleed, hypertension, and hyperlipidemia, who presents to the emergency department from Rehab facility with changes in mental status, cough, and decreased appetite since this morning. Patient endorses a nonproductive cough and associated shortness of breath. He denies any chest pain, diaphoresis, or palpitations. Patient reports he has not been eating at his baseline. He reports a subjective fever, but denies any chills, headache, or dizziness. He denies any abdominal pain, nausea, vomiting, diarrhea, constipation, or changes in bowel movement. He denies any dysuria, hematuria, frequency, or urgency. Per EMS, patient was diagnosed with Influenza approximately 2 days ago. - Physicial Exam PE: 09/05/17 18:26 Constitutional: Awake, alert, oriented. Mild respiratory distress. Warm to the touch. Lethargic. Head: Normocephalic. Atraumatic Eyes: PERRL. EOMI. Conjunctivae are not pale. ENT: Mucous membranes are dry. Posterior pharynx without exudates or erythema. Uvula midline. Neck: Supple. Full ROM. No lymphadenopathy. Cardiovascular: Regular rate. Regular rhythm. S1, S2 regular. Distal pulses are 2+ and symmetric. Pulmonary/Chest: Tachypneic. Hypoxic. Coarse breath sounds bilaterally. No wheezing, rales or rhonchi. Abdominal: Lower abdomen mildly distended. Palpable bladder. Diaphragmatic breathing. Soft. No rebound, guarding or rigidity. No organomegaly. No palpable masses. Good bowel sounds. Back: No CVA tenderness. Musculoskeletal: No edema. No cyanosis. No clubbing. Full range of motion in all extremities, but lethargic. No calf tenderness. Radial/pedal pulses are intact and 2+ bilaterally Skin: Skin is warm and dry. No petechiae. No purpura. Neurological: Alert and oriented to person, place, and time. Cranial nerves II -XII are grossly intact. Normal speech. Strength is grossly symmetric. No sensory deficits. Psychiatric: Good eye contact. Normal interaction, affect and behavior. - Medical Decision Making 09/05/17 18:26 EXAM: CXR INTERPRETED BY: Dr. Beebe REVIEWED BY: Dr. Billy IMPRESSION: Mild pulmonary vascular congestion. Stable enlargement of the cardiac silhouette. No evidence of acute infiltrate or pleural effusion. Case discussed with hospitalists at 19:25. Case discussed with Dr. Donovan at 19:27. Documentation prepared by Sandra Tamayo, acting as center medical director for Sally Billy DO. <Sandra Tamayo - Last Filed: 09/05/17 19:27> - Resident Resident Name: WenShameka - ED Attending Attestation I have performed the following: I have examined & evaluated the patient, The case was reviewed & discussed with the resident, I agree w/resident's findings & plan, Exceptions are as noted - Critical Care Time Total Critical Care Time: 30 Critical Care Statement: The care of this patient involved high complexity decision making to prevent further life threatening deterioration of the patient 's condition and/or to evaluate & treat vital organ system(s) failure or risk of failure. - Medical Decision Making 09/05/17 18:11 I, Dr. Sally Billy, DO, attest that this document has been prepared under my direction and personally reviewed by me in its entirety. I further attest, that it accurately reflects all work, treatment, procedures and medical decision -making performed by me. 09/05/17 18:31 a/p: 71yo male with recent flu + sent by MD for eval of change in MS -coarse bs, concern for poss PNA vs resp distress from flu -febrile despite tamilfu -concern for sepsis -severely dehydrated on exam -sepsis fluids ordered -iv tylenol -broad spectrum abx -will send labs, cultures, cxr, ekg, will need admission -lactate pending -witt for strict i/o 09/05/17 19:33 family updated will obtain blood consent and transfuse case discussed with Dr. Carr who accepts pt to service case discussed with dr. donovan agrees with transfusion, will see in consult strict i/o no tamiflu since crcl <10 will see in consult will obtain renal ultrasound witt in place uti abx started <Sally Billy - Last Filed: 09/05/17 19:35> Discharge Disposition <Sandra Tamayo - Last Filed: 09/05/17 19:27> - Discharge Dispostion Last Admission D/C Date: 07/22/17 Admit: Yes <Sally Billy - Last Filed: 09/05/17 19:35> - Diagnosis Anemia, UTI (urinary tract infection), Confusion, Influenza, Respiratory difficulty - Discharge Dispostion Condition at time of disposition: Guarded - Referrals Referrals: Bernardo Del Valle MD [Primary Care Provider] - - Patient Instructions - Post Discharge Activity
[2017-09-05] MEDS ORDERED: SODIUM CHLORIDE 0.9% 1000 ML INFUS.BAG IV SCH (18:15)
[2017-09-05] MEDS ORDERED: PIPERACILLIN/TAZOB 2.25 GM/50 ML PREMIX BAG IVPB ONE (18:16)
[2017-09-05] MEDS ORDERED: ACETAMINOPHEN 1000 MG/100 ML VIAL (NON FORMULARY) IVPB ONE (18:16)
[2017-09-05] MEDS ORDERED: ALBUTEROL SO4 2.5/IPRATROPIUM 0.5 INH SOL 3 ML VIAL.NEB. NEB ONE ×2 (18:16→18:17)
[2017-09-05] MEDS ORDERED: VANCOMYCIN 1 GRAM (PRE-DOCKED) 1,000 MG/250 ML BAG IVPB ONE ×2 (18:16→18:52)
[2017-09-05] MEDS ORDERED: ACETAMINOPHEN INJECTION 100 ML IVPB ONE (18:17)
[2017-09-05 18:28] LABS: BASO % 0.2 % (0-2.0); HEMOGLOBIN 7.5 GM/dL (11.7-16.9); LYMPH % 4.5 % (8-40); MCH 27.3 pg (25.7-33.7); MCHC 32.6 g/dl (32.0-35.9); MEAN CELL VOLUME 83.9 fl (80-96); MEAN PLT VOLUME 7.5 fl (7.5-11.1); MONO % 5.3 % (3.8-10.2); PLATELET COUNT 212 K/MM3 (134-434); RBC 2.75 M/mm3 (4.00-5.60); RDW 16.3 % (11.9-15.9); WHITE BLOOD COUNT 11.8 K/mm3 (4.0-10.0)
[2017-09-05 18:42] LABS: INR 1.39 (0.82-1.09); PROTHROMBIN TIME (PATIENT) 15.7 SEC (9.98-11.88)
[2017-09-05 18:44] LABS: ACTIVATED PTT 37.2 SECONDS (26.9-34.4)
[2017-09-05 18:53] LABS: URINE APPEARANCE TURBID; URINE BILIRUBIN NEGATIVE (NEGATIVE); URINE BLOOD 1+ (NEGATIVE); URINE COLOR YELLOW; URINE GLUCOSE (UA) 1+ (NEGATIVE); URINE KETONE NEGATIVE (NEGATIVE); URINE NITRITE NEGATIVE (NEGATIVE); URINE UROBILINOGEN NEGATIVE mg/dL (0.2-1.0)
[2017-09-05 18:53] LABS: ALBUMIN 2.7 g/dl (3.4-5.0); ALK PHOS 138 U/L (45-117); ANION GAP 11 (8-16); BILIRUBIN,TOTAL 0.4 mg/dL (0.2-1.0); CALCIUM 7.1 mg/dL (8.5-10.1); CHLORIDE 104 mmol/L (98-107); CO2 20 mmol/L (21-32); CREATININE 6.4 mg/dL (0.7-1.3); POTASSIUM 4.4 mmol/L (3.5-5.1); SGOT/AST 21 U/L (15-37); SGPT/ALT 48 U/L (12-78); SODIUM 135 mmol/L (136-145); TOT PROT 6.7 g/dl (6.4-8.2)
[2017-09-05] MEDS ORDERED: PIPERACILLIN/TAZOBACTAM 2.25 GM VIAL IVPB ONE (18:53)
[2017-09-05 18:54] LABS: URINE LEUK ESTERASE 3+ (NEGATIVE); URINE PROTEIN 2+ (NEGATIVE)
[2017-09-05 18:59] LABS: EPI CELLS RARE /HPF (FEW); URINE BACTERIA MANY /hpf (NONE SEEN)
[2017-09-05 18:59] LABS: BLOOD UREA NITROGEN 149 mg/dL (7-18); GLUCOSE,RANDOM 300 mg/dL (74-106)
[2017-09-05 19:08] LABS: N-TERMINAL BNP 95781.02 pg/ml (5-125)
[2017-09-05 19:08] LABS: ARTERIAL BLD GAS O2 SATURATION 84.5 % (90-98.9); ARTERIAL BLOOD GAS BASE EXCESS -6.6 meq/l (-2-2); ARTERIAL BLOOD GAS PCO2 31.8 mmHg (35-45); ARTERIAL BLOOD GAS PO2 52.7 mmHg (70-100); ARTERIAL BLOOD GAS pH 7.36 (7.35-7.45)
[2017-09-05 19:11] LABS: MAGNESIUM 2.2 mg/dL (1.8-2.4)
[2017-09-05 19:12] LABS: ALLENS TEST POSITIVE
[2017-09-05 19:13] LABS: CARBOXYHEMOGLOBIN 1.2 gm% (0.5-2.0)
--- NOTE | 2017-09-05 19:27 | PDOC ---
History of Present Illness - General Chief Complaint: Respiratory Stated Complaint: FLU Time Seen by Provider: 09/05/17 18:07 History Source: Patient, EMS, Family Exam Limitations: Clinical Condition - History of Present Illness Initial Comments: This is a 71 YOM diagnosed with influenza in the past 2-3 days and discharged to a rehabilitation facility. He has h/o CAD s/p CABG, CHF, DM, GERD, HTN, HLD, CKD, and anemia. He was found to have decreased level of consciousness, decreased appetite, fever, cough, and SOB at his facility this afternoon and was found to be febrile. EMS was called to bring him into the ED. The patient himself is altered but able to answer simple questions, and denies any abdominal pain, vomiting, diarrhea, constipation, urinary symptoms, or other symptoms. Past History - Past Medical History Allergies/Adverse Reactions: Allergies Allergy/AdvReac Type Severity Reaction Status Date / Time tramadol Allergy Verified 09/05/17 18:04 oxycodone HCl [From Percocet] AdvReac Intermediate nausea Verified 09/05/17 18: 04 ticagrelor [From BRILINTA] AdvReac Intermediate Verified 09/05/17 18:04 Home Medications: Ambulatory Orders Cholecalciferol (Vitamin D3) [Vitamin D3] 1,000 unit PO DAILY tablet 09/02/12 Clopidogrel Bisulfate [Clopidogrel] 75 mg PO HS #90 tablet 01/10/16 Carvedilol 12.5 mg PO BID 06/11/17 Ferrous Sulfate [Feosol] 325 mg PO DAILY ud 07/12/17 Docusate Sodium [Colace -] 300 mg PO HS 07/14/17 Insulin Glargine,Hum.rec.anlog [Lantus Solostar PEN -] 15 units SQ HS 07/14/17 Lidocaine 5% Patch [Lidoderm -] 1 patch TP DAILY #7 patch 07/15/17 Nifedipine ER [Procardia XL -] 30 mg PO DAILY tab.er.24 07/22/17 Furosemide [Lasix -] 40 mg PO BID 07/23/17 Insulin Sliding Scale [Novolog Vial Sliding Scale -] 1 vial SQ TIDAC PRN Simvastatin 40 mg PO HS 07/23/17 Pantoprazole Sodium [Protonix -] 40 mg PO DAILY #30 tablet.ec 12/20/17 Sucralfate [Carafate -] 1 gm PO BID #60 tablet 07/25/17 Tamsulosin HCl [Flomax -] 0.4 mg PO HS cap.er.24h 07/25/17 Polyethylene Glycol 3350 [Miralax (For Daily Use) -] 17 gm PO DAILY 09/03/17 Oseltamivir Phosphate [Tamiflu] 75 mg PO BID 09/05/17 Anemia: Yes (taking iron) Asthma: No Cancer: No Cardiac Disorders: Yes (CAD, CABG, stents) CVA: No COPD: No CHF: No DVT: No Dementia: No Diabetes: Yes (x41 yrs) GI Disorders: Yes (GERD, G-I bleed) Disorders: No HTN: Yes Hypercholesterolemia: Yes Liver Disease: No Psychiatric Problems: Yes Seizures: No Thyroid Disease: No - Surgical History Abdominal Surgery: Yes (Left Inguinal Hernia Repair) Appendectomy: No Cardiac Surgery: Yes (Bypass Surgery 18 yrs ago, Followed by Stents placement x2 ) Cholecystectomy: No Lung Surgery: No Neurologic Surgery: No Orthopedic Surgery: Yes (Laminectomy) - Immunization History Immunization Up to Date: Yes - Suicide/Smoking/Psychosocial Hx Smoking History: Former smoker Have you smoked in the past 12 months: No If you are a former smoker, when did you quit?: 30YRS Information on smoking cessation initiated: No Hx Alcohol Use: No Drug/Substance Use Hx: No Substance Use Type: None Hx Substance Use Treatment: No Review of Systems - Review of Systems Able to Perform ROS?: Yes Constitutional: Yes: Chills, Fever, Malaise, Weakness, Other (fatigue). No: Unexplained wgt Loss HEENTM: No: Nose Congestion, Throat Pain Respiratory: Yes: Cough, Shortness of Breath Cardiac (ROS): Yes: Palpitations. No: Chest Pain ABD/GI: No: Constipated, Diarrhea, Nausea, Vomiting : No: Burning, Dysuria Musculoskeletal: No: Back Pain, Neck Pain Integumentary: No: Bruising, Rash Neurological: No: Headache, Numbness, Tingling, Weakness, Dizziness Endocrine: No: Unexplained Weight Gain, Unexplained Weight Loss *Physical Exam - Vital Signs Last Vital Signs Temp Pulse Resp BP Pulse Ox 101.2 F H 60 26 H 137/53 96 09/05/17 18:15 09/05/17 17:35 09/05/17 17:35 09/05/17 17:35 09/05/17 18:32 - Physical Exam General Appearance: Yes: Nourished, Other (sleeping but does arouse to loud voice, drowsy). No: Apparent Distress HEENT: positive: EOMI, Normal Voice, Hearing Grossly Normal. negative: Scleral Icterus (R), Scleral Icterus (L), Nasal Congestion Neck: positive: Trachea midline, Supple. negative: Tender, Rigid Respiratory/Chest: positive: Lungs Clear, Normal Breath Sounds. negative: Respiratory Distress, Crackles, Rhonchi, Stridor, Wheezing Cardiovascular: positive: Regular Rhythm, Regular Rate. negative: Murmur Gastrointestinal/Abdominal: positive: Normal Bowel Sounds, Soft. negative: Tender, Organomegaly, Pulsatile Mass, Guarding Musculoskeletal: positive: Normal Inspection. negative: Decreased Range of Motion, Vertebral Tenderness Extremity: positive: Normal Capillary Refill, Normal Inspection, Normal Range of Motion. negative: Tender, Cyanosis Integumentary: positive: Normal Color, Dry, Warm. negative: Erythema, Rash, Bruising Neurologic: positive: window covering sales consultant II-XII NML intact, Fully Oriented, Alert, Normal Mood/ Affect, Normal Response, Motor Strength 12/08 ED Treatment Course - LABORATORY CBC & Chemistry Diagram: 09/05/17 18:00 09/05/17 18:00 - ADDITIONAL ORDERS Additional order review: Laboratory Results 09/05/17 09/05/17 09/05/17 18:55 18:55 18:40 PT with INR INR PTT (Actin FS) Anticoagulation Therapy No Result Required. Puncture Site Right radial ABG pH 7.36 ABG pCO2 at Pt Temp 31.8 L ABG pO2 at Pt Temp 52.7 L ABG HCO3 17.6 L ABG O2 Sat (Measured) 84.5 L ABG O2 Content 8.9 L* ABG Base Excess -6.6 L Mono Test Positive Carboxyhemoglobin 1.2 Methemoglobin 1.0 O2 Delivery Device No Result Required. Oxygen Flow Rate Room air Vent Mode No Result Required. Vent Rate No Result Required. Mechanical Rate No Result Required. Pressure Support Vent No Result Required. Sodium Potassium Chloride Carbon Dioxide Anion Gap BUN Creatinine Creat Clearance w eGFR Random Glucose Lactic Acid Calcium Magnesium Total Bilirubin AST ALT Alkaline Phosphatase B-Natriuretic Peptide Total Protein Albumin Urine Color Yellow Urine Appearance Turbid Urine pH 5.0 Ur Specific [place] 1.011 Urine Protein 2+ H Urine Glucose (UA) 1+ H Urine Ketones Negative Urine Blood 1+ H Urine Nitrite Negative Urine Bilirubin Negative Urine Urobilinogen Negative Ur Leukocyte Esterase 3+ H Urine WBC (Auto) 1706 Urine RBC (Auto) None Ur Epithelial Cells Rare Urine Bacteria Many 09/05/17 09/05/17 09/05/17 18:00 18:00 18:00 PT with INR 15.70 H INR 1.39 H PTT (Actin FS) 37.2 H Anticoagulation Therapy Puncture Site ABG pH ABG pCO2 at Pt Temp ABG pO2 at Pt Temp ABG HCO3 ABG O2 Sat (Measured) ABG O2 Content ABG Base Excess Mono Test Carboxyhemoglobin Methemoglobin O2 Delivery Device Oxygen Flow Rate Vent Mode Vent Rate Mechanical Rate Pressure Support Vent Sodium 135 L Potassium 4.4 Chloride 104 Carbon Dioxide 20 L D Anion Gap 11 BUN 149 H* D Creatinine 6.4 H D Creat Clearance w eGFR 8.65 Random Glucose 300 H D Lactic Acid 1.2 Calcium 7.1 L Magnesium Total Bilirubin 0.4 D AST 21 D ALT 48 D Alkaline Phosphatase 138 H B-Natriuretic Peptide Total Protein 6.7 Albumin 2.7 L Urine Color Urine Appearance Urine pH Ur Specific [place] Urine Protein Urine Glucose (UA) Urine Ketones Urine Blood Urine Nitrite Urine Bilirubin Urine Urobilinogen Ur Leukocyte Esterase Urine WBC (Auto) Urine RBC (Auto) Ur Epithelial Cells Urine Bacteria 09/05/17 18:00 PT with INR INR PTT (Actin FS) Anticoagulation Therapy Puncture Site ABG pH ABG pCO2 at Pt Temp ABG pO2 at Pt Temp ABG HCO3 ABG O2 Sat (Measured) ABG O2 Content ABG Base Excess Mono Test Carboxyhemoglobin Methemoglobin O2 Delivery Device Oxygen Flow Rate Vent Mode Vent Rate Mechanical Rate Pressure Support Vent Sodium Potassium Chloride Carbon Dioxide Anion Gap BUN Creatinine Creat Clearance w eGFR Random Glucose Lactic Acid Calcium Magnesium 2.2 D Total Bilirubin AST ALT Alkaline Phosphatase B-Natriuretic Peptide 10079.02 H Total Protein Albumin Urine Color Urine Appearance Urine pH Ur Specific [place] Urine Protein Urine Glucose (UA) Urine Ketones Urine Blood Urine Nitrite Urine Bilirubin Urine Urobilinogen Ur Leukocyte Esterase Urine WBC (Auto) Urine RBC (Auto) Ur Epithelial Cells Urine Bacteria 09/05/17 18:00 RBC 2.75 L MCV 83.9 MCHC 32.6 RDW 16.3 H MPV 7.5 Neutrophils % 90.0 H D Lymphocytes % 4.5 L D Monocytes % 5.3 Eosinophils % 0.0 D Basophils % 0.2 - Medications Given in the ED: ED Medications Discontinued Medications Generic Name Dose Route Start Last Admin Trade Name David PRN Reason Stop Dose Admin Acetaminophen 1,000 mg 09/05/17 18:16 09/05/17 18:31 Ofirmev Injection - IVPB 09/05/17 18:17 1,000 mg ONCE ONE Administration Albuterol/Ipratropium 1 amp 09/05/17 18:16 09/05/17 18:51 Duoneb - NEB 09/05/17 18:17 1 amp ONCE ONE Administration Piperacillin/Tazobactam/Dextrose 2.25 gm 09/05/17 18:16 09/05/17 19:08 Zosyn 2.25gm Ivpb (Premix) IVPB 09/05/17 18:17 2.25 gm ONCE ONE Administration *DC/Admit/Observation/Transfer Diagnosis at time of Disposition: Confusion, Influenza, Respiratory difficulty Anemia Qualifiers: Anemia type: unspecified type Qualified Code(s): D64.9 - Anemia, unspecified UTI (urinary tract infection) Qualifiers: Urinary tract infection type: site unspecified Hematuria presence: without hematuria Qualified Code(s): N39.0 - Urinary tract infection, site not specified - Discharge Dispostion Condition at time of disposition: Guarded Admit: Yes - Referrals Referrals: Bernardo Del Valle MD [Primary Care Provider] - - Patient Instructions - Post Discharge Activity
--- NOTE | 2017-09-05 19:33 | PN ---
Teaching Attending Note Name of Resident: Agusto Barnes ATTENDING PHYSICIAN STATEMENT I saw and evaluated the patient. I reviewed the resident's note and discussed the case with the resident. I agree with the resident's findings and plan as documented. SUBJECTIVE: 71 yo M with anemia on procrit, CAD s/p CABG/stents, GERD, HLD, CKD- Stg 4, DM, Chronic back pain (s/p laminectomy and fusions) and chronic constipations. States he recently was daignosed with the flu and had taken two days of Michelle- Flu. Also notes decreased Po intake. States he has a dry cough, but denies any current shortness of breath, chest pain, or pressure. No dizziness or lightheadedness OBJECTIVE: Physical: VS: Vital Signs Period Temp Pulse Resp BP Sys/Rodriguez Pulse Ox Last 24 Hr 99.6 F-101.2 F 60 26 137/53 92-96 GEN: NAD, Resting in bed, AAOX3, Able to speak full sentences HEENT: NCAT, PERRL, Oral mucous with dry mucous membranes, lips skin cracked with dried blood, throat without erythema or exudates. CARD: RRR S1, S2 RESP: Crackles at bases bilaterally ABD: BSx4, NTD to palpation EXT: +2 Pitting edema, bilateral and equal RECTAL- Deffered CBCD WBC 11.8 K/mm3 (4.0-10.0) H D 09/05/17 18:00 RBC 2.75 M/mm3 (4.00-5.60) L 09/05/17 18:00 Hgb 7.5 GM/dL (11.7-16.9) L D 09/05/17 18:00 Hct 23.0 % (35.4-49) L 09/05/17 18:00 MCV 83.9 fl (80-96) 09/05/17 18:00 MCHC 32.6 g/dl (32.0-35.9) 09/05/17 18:00 RDW 16.3 % (11.9-15.9) H 09/05/17 18:00 Plt Count 212 K/MM3 (134-434) 09/05/17 18:00 MPV 7.5 fl (7.5-11.1) 09/05/17 18:00 CMP Sodium 135 mmol/L (136-145) L 09/05/17 18:00 Potassium 4.4 mmol/L (3.5-5.1) 09/05/17 18:00 Chloride 104 mmol/L (98-107) 09/05/17 18:00 Carbon Dioxide 20 mmol/L (21-32) L D 09/05/17 18:00 Anion Gap 11 (8-16) 09/05/17 18:00 BUN 149 mg/dL (7-18) H* D 09/05/17 18:00 Creatinine 6.4 mg/dL (0.7-1.3) H D 09/05/17 18:00 Creat Clearance w eGFR 8.65 (>60) 09/05/17 18:00 Calcium 7.1 mg/dL (8.5-10.1) L 09/05/17 18:00 Total Bilirubin 0.4 mg/dL (0.2-1.0) D 09/05/17 18:00 AST 21 U/L (15-37) D 09/05/17 18:00 ALT 48 U/L (12-78) D 09/05/17 18:00 Alkaline Phosphatase 138 U/L (45-117) H 09/05/17 18:00 Total Protein 6.7 g/dl (6.4-8.2) 09/05/17 18:00 Albumin 2.7 g/dl (3.4-5.0) L 09/05/17 18:00 Home Medications Medication Instructions Recorded Cholecalciferol (Vitamin D3) 1,000 unit PO DAILY tablet 09/02/12 [Vitamin D3] Clopidogrel Bisulfate [Clopidogrel] 75 mg PO HS #90 tablet 01/10/16 Carvedilol 12.5 mg PO BID 06/11/17 Ferrous Sulfate [Feosol] 325 mg PO DAILY ud 07/12/17 Docusate Sodium [Colace -] 300 mg PO HS 07/14/17 Insulin Glargine,Hum.rec.anlog 15 units SQ HS 07/14/17 [Lantus Solostar PEN -] Lidocaine 5% Patch [Lidoderm -] 1 patch TP DAILY #7 patch 07/15/17 Nifedipine ER [Procardia XL -] 30 mg PO DAILY tab.er.24 07/22/17 Furosemide [Lasix -] 40 mg PO BID 07/23/17 Insulin Sliding Scale [Novolog 1 vial SQ TIDAC PRN 07/23/17 Vial Sliding Scale -] Simvastatin 40 mg PO HS 07/23/17 Pantoprazole Sodium [Protonix -] 40 mg PO DAILY #30 tablet.ec 07/25/17 Sucralfate [Carafate -] 1 gm PO BID #60 tablet 07/25/17 Tamsulosin HCl [Flomax -] 0.4 mg PO HS cap.er.24h 07/25/17 Polyethylene Glycol 3350 [Miralax 17 gm PO DAILY 09/03/17 (For Daily Use) -] Oseltamivir Phosphate [Tamiflu] 75 mg PO BID 09/05/17 ASSESSMENT AND PLAN: 71 yo M with anemia on procrit, CAD s/p CABG/stents, GERD, HLD, CKD- Stg 4, DM, Chronic back pain (s/p laminectomy and fusions) and chronic constipations, who presents with cough and shortness of breath, recently treated for the flu, found to be Septic 1.) Sepsis - Most Likely due to UTI - Ellison Cx - Repeat LA - Gentle IVF - Vanco/Zosyn given in ED, can c/w Ceftriaxone in am 2.) Influenza Positive - S/P 2 days with [place]-Flu - Isolation Percautions - Cannot administer Michelle-Flu, due to poor renal clearance 3.) CHIARA on CKD - U lytes - Gentle Hydration - Renal US - Nephro consult for possible HD 4.) Anemia Normocytic - Chk. EPO - most likely due to renal failure - Was on Procrit - Transfuse to Hgb>8 5.) Troponin Elevation - NSTEMI VS. Demand/Renal Failure - ASA induced Gastritis on earlier admission, - C/W Plavix due to strong hx. (with caution, as anemia most likely due to Renal Failure and not acute bleed) - C/W Coreg/Procardia, Statin - Trend Trop/EKG - Due to Anemia and pt. recieving transfusion will hold off Hep. gtt, but trend troponin - Cardiology Consult - Echo if not r - CAD S/P CABG - C/W Home meds 6.) Acute Diastolic Congestive Heart Failure - Echo 07/12- Ef 58 % - Lasix 20 IV post- transfusion 7.) DM II - FS - RAISS - Diabetic Diet 8.) Dvt Ppx - SCDS Place in Med-Tele
[2017-09-05] MEDS ORDERED: ASPIRIN 300 MG SUPP.RECT PR ONE (20:22)
[2017-09-05] MEDS ORDERED: ASPIRIN 81 MG CHEWABLE TABLETS PO ONE (20:22)
[2017-09-05] MEDS ORDERED: INSULIN SLIDING SCALE (NOVOLOG) 1 VIAL SQ SCH (22:00)
--- NOTE | 2017-09-05 22:03 | HP ---
CHIEF COMPLAINT: Sent from [place] with AMS, decreased PO, flu PCP: Bernardo Del Valle MD Cardio: Mary/Sanjay/Deneen Renal: Venus HISTORY OF PRESENT ILLNESS: Hx taken from records, pt, and family. Pt is a 71 y/o M with extensive cardiac history significant for CAD s/p CABG, CHF (last echo 07/11/17 w/ low normal LV function), also ESRD (on HD), DM, hx GI bleed who was sent to ED from [place] because of AMS, cough, decreased PO x 2d. Pt states he feels fine. Reportedly, pt has had nonproductive cough, and subjective fevers in [place], though he does not report that at this time. Note: Family would like pt to go to a different [place] on d/c. ER course was notable for: (1) WBC 11.9, Hb 7.5, Na 135, K 4.4, BUN 149, Siderographer 6.4 (baseline ~4), INR 1.39, Tn 1.52, rand glc 300, BNP 96,000, UA 2+ prot / 1+ glucose / 1+blood / 3+ LE / WBC 1706 / many ethan (2) CXR mild congestion and increased cardiac silhouette, EKG slightly prolonged QTc / Ant Q waves (old) with Ant TWI (new) (3) Pt received nebs, vanc, zosyn Recent Travel: denies PAST MEDICAL HISTORY: Anemia, CAD (s/p CABG stent), CHF, Renal insufficiency, DM, GERD, GIB, HTN, HLD PAST SURGICAL HISTORY: Social History: Smoking: denies Alcohol: denies Drugs: denies Family History: denies Allergies tramadol Allergy (Verified 09/05/17 18:04) oxycodone HCl [From Percocet] Adverse Reaction (Intermediate, Verified 09/05/17 18:04) nausea ticagrelor [From BRILINTA] Adverse Reaction (Intermediate, Verified 09/05/17 18: 04) HOME MEDICATIONS: Home Medications Medication Instructions Recorded Cholecalciferol (Vitamin D3) 1,000 unit PO DAILY tablet 09/02/12 [Vitamin D3] Clopidogrel Bisulfate [Clopidogrel] 75 mg PO HS #90 tablet 01/10/16 Carvedilol 12.5 mg PO BID 06/11/17 Ferrous Sulfate [Feosol] 325 mg PO DAILY ud 07/12/17 Docusate Sodium [Colace -] 300 mg PO HS 07/14/17 Insulin Glargine,Hum.rec.anlog 15 units SQ HS 07/14/17 [Lantus Solostar PEN -] Lidocaine 5% Patch [Lidoderm -] 1 patch TP DAILY #7 patch 07/15/17 Nifedipine ER [Procardia XL -] 30 mg PO DAILY tab.er.24 07/22/17 Furosemide [Lasix -] 40 mg PO BID 07/23/17 Insulin Sliding Scale [Novolog 1 vial SQ TIDAC PRN 07/23/17 Vial Sliding Scale -] Simvastatin 40 mg PO HS 07/23/17 Pantoprazole Sodium [Protonix -] 40 mg PO DAILY #30 tablet.ec 07/25/17 Sucralfate [Carafate -] 1 gm PO BID #60 tablet 07/25/17 Tamsulosin HCl [Flomax -] 0.4 mg PO HS cap.er.24h 07/25/17 Polyethylene Glycol 3350 [Miralax 17 gm PO DAILY 09/03/17 (For Daily Use) -] Oseltamivir Phosphate [Tamiflu] 75 mg PO BID 09/05/17 REVIEW OF SYSTEMS CONSTITUTIONAL: subj fever Absent: HEENT: Absent: rhinorrhea, nasal congestion, throat pain, throat swelling, difficulty swallowing, CARDIOVASCULAR: chest pain, peripheral edema Absent: , syncope, palpitations, RESPIRATORY: cough, wheezing Absent: , shortness of breath, GASTROINTESTINAL: abdominal distension Absent: abdominal pain, nausea, vomiting, diarrhea, GENITOURINARY: Absent: dysuria, urgency, hematuria MUSCULOSKELETAL: Absent: myalgia, arthralgia, SKIN: Absent: rash, NEUROLOGIC: Absent: headache, focal weakness or paresthesias PSYCHIATRIC: Absent: anxiety, depression, suicidal or homicidal ideation, hallucinations. PHYSICAL EXAMINATION Vital Signs - 24 hr 09/05/17 09/05/17 09/05/17 17:35 18:15 18:32 Temperature 99.6 F 101.2 F H Pulse Rate 60 Pulse Rate [ Apical] Respiratory 26 H Rate Blood Pressure 137/53 Blood Pressure [Left Arm] O2 Sat by Pulse 92 L 93 L Oximetry (%) 09/05/17 09/05/17 09/05/17 19:00 19:30 20:54 Temperature Pulse Rate Pulse Rate [ 58 L 56 L Apical] Respiratory 24 24 Rate Blood Pressure Blood Pressure 140/50 132/60 [Left Arm] O2 Sat by Pulse 95 96 95 Oximetry (%) GENERAL: Awake, alert, and fully oriented, in no acute distress. HEAD: Normal with no signs of trauma. EYES: Pupils equal, round and reactive to light, extraocular movements intact, sclera anicteric, conjunctiva clear. No lid lag. EARS, NOSE, THROAT: oropharynx clear without exudates. Moist mucous membranes. NECK: Normal range of motion, supple without lymphadenopathy, JVD, or masses. LUNGS: diffuse coarse breath sounds. No wheezes, and crackles. No accessory muscle use. HEART: Regular rate and rhythm, normal S1 and S2 without murmur, rub or gallop. ABDOMEN: Soft, nontender, not distended, normoactive bowel sounds, no guarding, no rebound, no masses. No hepatomegaly or splenomegaly. MUSCULOSKELETAL: Normal range of motion at all joints. No bony deformities or tenderness. No CVA tenderness. UPPER EXTREMITIES: 2+ pulses, warm, well-perfused. No cyanosis. No clubbing. No peripheral edema. LOWER EXTREMITIES: 1+ pulses b/l (slow cap refill), warm, well-perfused. No calf tenderness. 1+ peripheral edema. NEUROLOGICAL: Cranial nerves II-XII intact. Normal speech. Normal gait. PSYCHIATRIC: Cooperative. Good eye contact. Appropriate mood and affect. SKIN: Warm, dry, normal turgor, no rashes or lesions noted, normal capillary refill. Laboratory Results - last 24 hr 09/05/17 09/05/17 09/05/17 18:00 18:00 18:00 WBC 11.8 H D RBC 2.75 L Hgb 7.5 L D Hct 23.0 L MCV 83.9 MCH 27.3 MCHC 32.6 RDW 16.3 H Plt Count 212 MPV 7.5 Neutrophils % 90.0 H D Lymphocytes % 4.5 L D Monocytes % 5.3 Eosinophils % 0.0 D Basophils % 0.2 PT with INR INR PTT (Actin FS) Anticoagulation Therapy Puncture Site ABG pH ABG pCO2 at Pt Temp ABG pO2 at Pt Temp ABG HCO3 ABG O2 Sat (Measured) ABG O2 Content ABG Base Excess Mono Test Carboxyhemoglobin Methemoglobin O2 Delivery Device Oxygen Flow Rate Vent Mode Vent Rate Mechanical Rate Pressure Support Vent Sodium Potassium Chloride Carbon Dioxide Anion Gap BUN Creatinine Creat Clearance w eGFR Random Glucose Lactic Acid Calcium Magnesium 2.2 D Total Bilirubin AST ALT Alkaline Phosphatase Creatine Kinase Troponin I B-Natriuretic Peptide 54473.02 H Total Protein Albumin Urine Color Urine Appearance Urine pH Ur Specific [place] Urine Protein Urine Glucose (UA) Urine Ketones Urine Blood Urine Nitrite Urine Bilirubin Urine Urobilinogen Ur Leukocyte Esterase Urine WBC (Auto) Urine RBC (Auto) Ur Epithelial Cells Urine Bacteria Blood Type B POSITIVE Antibody Screen Negative Crossmatch See Detail 09/05/17 09/05/17 09/05/17 18:00 18:00 18:00 WBC RBC Hgb Hct MCV MCH MCHC RDW Plt Count MPV Neutrophils % Lymphocytes % Monocytes % Eosinophils % Basophils % PT with INR 15.70 H INR 1.39 H PTT (Actin FS) 37.2 H Anticoagulation Therapy Puncture Site ABG pH ABG pCO2 at Pt Temp ABG pO2 at Pt Temp ABG HCO3 ABG O2 Sat (Measured) ABG O2 Content ABG Base Excess Mono Test Carboxyhemoglobin Methemoglobin O2 Delivery Device Oxygen Flow Rate Vent Mode Vent Rate Mechanical Rate Pressure Support Vent Sodium 135 L Potassium 4.4 Chloride 104 Carbon Dioxide 20 L D Anion Gap 11 BUN 149 H* D Creatinine 6.4 H D Creat Clearance w eGFR 8.65 Random Glucose 300 H D Lactic Acid 1.2 Calcium 7.1 L Magnesium Total Bilirubin 0.4 D AST 21 D ALT 48 D Alkaline Phosphatase 138 H Creatine Kinase Troponin I B-Natriuretic Peptide Total Protein 6.7 Albumin 2.7 L Urine Color Urine Appearance Urine pH Ur Specific [place] Urine Protein Urine Glucose (UA) Urine Ketones Urine Blood Urine Nitrite Urine Bilirubin Urine Urobilinogen Ur Leukocyte Esterase Urine WBC (Auto) Urine RBC (Auto) Ur Epithelial Cells Urine Bacteria Blood Type Antibody Screen Crossmatch 09/05/17 09/05/17 09/05/17 18:00 18:40 18:55 WBC RBC Hgb Hct MCV MCH MCHC RDW Plt Count MPV Neutrophils % Lymphocytes % Monocytes % Eosinophils % Basophils % PT with INR INR PTT (Actin FS) Anticoagulation Therapy No Result Required. Puncture Site Right radial ABG pH 7.36 ABG pCO2 at Pt Temp 31.8 L ABG pO2 at Pt Temp 52.7 L ABG HCO3 17.6 L ABG O2 Sat (Measured) 84.5 L ABG O2 Content 8.9 L* ABG Base Excess -6.6 L Mono Test Positive Carboxyhemoglobin Methemoglobin O2 Delivery Device No Result Required. Oxygen Flow Rate Room air Vent Mode No Result Required. Vent Rate No Result Required. Mechanical Rate No Result Required. Pressure Support Vent No Result Required. Sodium Potassium Chloride Carbon Dioxide Anion Gap BUN Creatinine Creat Clearance w eGFR Random Glucose Lactic Acid Calcium Magnesium Total Bilirubin AST ALT Alkaline Phosphatase Creatine Kinase 270 Troponin I 1.52 H* D B-Natriuretic Peptide Total Protein Albumin Urine Color Yellow Urine Appearance Turbid Urine pH 5.0 Ur Specific [place] 1.011 Urine Protein 2+ H Urine Glucose (UA) 1+ H Urine Ketones Negative Urine Blood 1+ H Urine Nitrite Negative Urine Bilirubin Negative Urine Urobilinogen Negative Ur Leukocyte Esterase 3+ H Urine WBC (Auto) 1706 Urine RBC (Auto) None Ur Epithelial Cells Rare Urine Bacteria Many Blood Type Antibody Screen Crossmatch 09/05/17 18:55 WBC RBC Hgb Hct MCV MCH MCHC RDW Plt Count MPV Neutrophils % Lymphocytes % Monocytes % Eosinophils % Basophils % PT with INR INR PTT (Actin FS) Anticoagulation Therapy Puncture Site ABG pH ABG pCO2 at Pt Temp ABG pO2 at Pt Temp ABG HCO3 ABG O2 Sat (Measured) ABG O2 Content ABG Base Excess Mono Test Carboxyhemoglobin 1.2 Methemoglobin 1.0 O2 Delivery Device Oxygen Flow Rate Vent Mode Vent Rate Mechanical Rate Pressure Support Vent Sodium Potassium Chloride Carbon Dioxide Anion Gap BUN Creatinine Creat Clearance w eGFR Random Glucose Lactic Acid Calcium Magnesium Total Bilirubin AST ALT Alkaline Phosphatase Creatine Kinase Troponin I B-Natriuretic Peptide Total Protein Albumin Urine Color Urine Appearance Urine pH Ur Specific [place] Urine Protein Urine Glucose (UA) Urine Ketones Urine Blood Urine Nitrite Urine Bilirubin Urine Urobilinogen Ur Leukocyte Esterase Urine WBC (Auto) Urine RBC (Auto) Ur Epithelial Cells Urine Bacteria Blood Type Antibody Screen Crossmatch ASSESSMENT/PLAN: Pt is a 71 y/o M with extensive cardiac history, renal insufficiency, HTN, DM who was sent from [place] for AMS, cough, and decreased PO intake with a diagnosis of flu 2 days prior. In ED pt was found to have UTI, pulm crackles, dehydration , leukocytosis, and Troponinemia. #Sepsis -Flu pos, tachypnea, leukocytosis -Abx in ED -careful hydration in pt with CHIARA (possible obstruction) and CHF -follow [place] #Flu -likely cause of lung crackles -pt cannot receive Tamiflu as Siderographer Cl is too low -mild tachypnea. No resp distress on exam #CHF -last echo with "low normal" LV function in Jul 2017 -crackles on lung exam -1+ pedal edema -pt may need lasix post PRBC infusion #NSTEMI -trop pos -old ant Q w/ new ant TWI -likely demand vs CHIARA with decreased clearance -cardio consult #CHIARA on CKD -Siderographer 6.4 baseline 4 -Renal U/S. Pt has hist of obstruction -nephro consult #decreased volume status -decreased PO intake x 3d -Na 135 -Pt will receive 1 PRBC in ED #anemia -Hb 7.5 -1 PRBC ordered in ED -f/u CBC #UTI -likely cause of AMS in [place]. Pt AAO x2 at this time -Vanc Zosyn given in ED -likely switch to Ceftriaxone in am #DM -BGM -ISS #FEN -receiving fluids w/ Abx -lytes wnl at this time. Will monitor K closely -NPO for now #PPx -no Hep in setting of anemia -SCDs #Dispo -admit to tele Visit type - Emergency Visit Emergency Visit: Yes Care time: The patient presented to the Emergency Department on the above date and was hospitalized for further evaluation of their emergent condition. - New Patient This patient is new to me today: Yes Date on this admission: 09/05/17 - Critical Care Critical Care patient: No
[2017-09-05 23:57] LABS: ALBUMIN 2.4 g/dl (3.4-5.0); ANION GAP 13 (8-16); BILIRUBIN,TOTAL 0.4 mg/dL (0.2-1.0); CHLORIDE 105 mmol/L (98-107); CO2 19 mmol/L (21-32); CREATININE 6.1 mg/dL (0.7-1.3); GLUCOSE,RANDOM 298 mg/dL (74-106); POTASSIUM 4.1 mmol/L (3.5-5.1); SGOT/AST 20 U/L (15-37); SGPT/ALT 42 U/L (12-78); SODIUM 137 mmol/L (136-145); TOT PROT 6.2 g/dl (6.4-8.2)
[2017-09-06 00:10] LABS: ALK PHOS 115 U/L (45-117)
[2017-09-06 00:18] LABS: BLOOD UREA NITROGEN 144 mg/dL (7-18)
[2017-09-06 06:48] LABS: BASO % 0.2 % (0-2.0); HEMATOCRIT 26.7 % (35.4-49); HEMOGLOBIN 8.8 GM/dL (11.7-16.9); LYMPH % 4.8 % (8-40); MCHC 32.9 g/dl (32.0-35.9); MEAN CELL VOLUME 84.9 fl (80-96); MEAN PLT VOLUME 7.5 fl (7.5-11.1); MONO % 5.6 % (3.8-10.2); NEUT % 89.4 % (42.8-82.8); PLATELET COUNT 183 K/MM3 (134-434); RBC 3.15 M/mm3 (4.00-5.60)
[2017-09-06] MEDS: INSULIN SLIDING SCALE (NOVOLOG) 1 VIAL SQ SCH ×3 (07:17→21:57)
[2017-09-06] MEDS ORDERED: INSULIN REGULAR HUMAN 100 UNITS/ML *VIAL ONE (07:18)
[2017-09-06] MEDS ORDERED: FUROSEMIDE 40 MG/4 ML INJECTABLE VIAL IVPUSH ONE (07:20)
[2017-09-06 07:44] LABS: ALBUMIN 2.6 g/dl (3.4-5.0); ANION GAP 11 (8-16); BILIRUBIN,TOTAL 0.5 mg/dL (0.2-1.0); CALCIUM 7.1 mg/dL (8.5-10.1); CHLORIDE 106 mmol/L (98-107); CO2 21 mmol/L (21-32); CREATININE 6.1 mg/dL (0.7-1.3); GLUCOSE,RANDOM 246 mg/dL (74-106); MAGNESIUM 2.2 mg/dL (1.8-2.4); PHOSPHOROUS 5.3 mg/dL (2.5-4.9); POTASSIUM 4.4 mmol/L (3.5-5.1); SGOT/AST 18 U/L (15-37); SGPT/ALT 41 U/L (12-78); SODIUM 138 mmol/L (136-145); TOT PROT 6.4 g/dl (6.4-8.2)
[2017-09-06 07:59] LABS: ALK PHOS 118 U/L (45-117)
[2017-09-06 08:05] LABS: BLOOD UREA NITROGEN 142 mg/dL (7-18)
--- NOTE | 2017-09-06 10:52 | CON.CARD ---
Consult Consult Specialty:: Cardiology Referred by:: Hospitalist Medicine Reason for Consultation:: CAD s/p CABG - History of Present Illness Chief Complaint: Flu History of Present Illness: Patient is a 71 year old male with history of CAD s/p [place], CABG, PCI(Stent), angina pectoris (followed by Dr. Ángel Murguia of [facility]), hypertension, hypercholesterolemia, insulin requiring diabetes mellitus, PAD post bypass surgery, anemia of CKD, CKD, urinary retention with neurogenic bladder and constipation due to Ultram, ASA-associated gastritis, chronic back pain (s/p laminectomy and fusions) referred for cough, anorexia, states he recently was daignosed with the flu and had taken two days of TamiFlu. States he has a dry cough with chills, but denies any current shortness of breath, chest pain, orthopnea, PND, LE edema, near or true syncope or palpitations, fevers. - History Source History Provided By: Patient Limitations to Obtaining History: Clinical Condition - Past Medical History Cardio/Vascular: Yes: CAD, CHF, HTN, Hyperlipdemia, ME Gastrointestinal: Yes: Constipation, GI Bleed Renal/: Yes: Renal Inusuff, Neurogenic Bladder Endocrine: Yes: Diabetes Mellitus - Past Surgical History Past Surgical History: Yes: Bypass (Lower extremity), CABG, Hernia Repair, Stent (PCI) - Alcohol/Substance Use Hx Alcohol Use: No History of Substance Use: reports: None - Smoking History Smoking history: Former smoker Have you smoked in the past 12 months: No If you are a former smoker, when did you quit?: 30YRS - Social History ADL: Family Assistance History of Recent Travel: No Home Medications - Allergies Allergies/Adverse Reactions: Allergies Allergy/AdvReac Type Severity Reaction Status Date / Time tramadol Allergy Verified 09/05/17 18:04 oxycodone HCl [From Percocet] AdvReac Intermediate nausea Verified 09/05/17 18: 04 ticagrelor [From BRILINTA] AdvReac Intermediate Verified 09/05/17 18:04 - Home Medications Home Medications: Ambulatory Orders Cholecalciferol (Vitamin D3) [Vitamin D3] 1,000 unit PO DAILY tablet 09/02/12 Clopidogrel Bisulfate [Clopidogrel] 75 mg PO HS #90 tablet 01/10/16 Carvedilol 12.5 mg PO BID 06/11/17 Ferrous Sulfate [Feosol] 325 mg PO DAILY ud 07/12/17 Docusate Sodium [Colace -] 300 mg PO HS 07/14/17 Insulin Glargine,Hum.rec.anlog [Lantus Solostar PEN -] 15 units SQ HS 07/14/17 Lidocaine 5% Patch [Lidoderm -] 1 patch TP DAILY #7 patch 07/15/17 Nifedipine ER [Procardia XL -] 30 mg PO DAILY tab.er.24 07/22/17 Furosemide [Lasix -] 40 mg PO BID 07/23/17 Insulin Sliding Scale [Novolog Vial Sliding Scale -] 1 vial SQ TIDAC PRN Simvastatin 40 mg PO HS 07/23/17 Pantoprazole Sodium [Protonix -] 40 mg PO DAILY #30 tablet.ec 07/25/17 Sucralfate [Carafate -] 1 gm PO BID #60 tablet 07/25/17 Tamsulosin HCl [Flomax -] 0.4 mg PO HS cap.er.24h 07/25/17 Polyethylene Glycol 3350 [Miralax (For Daily Use) -] 17 gm PO DAILY 09/03/17 Oseltamivir Phosphate [Tamiflu] 75 mg PO BID 09/05/17 Family Disease History - Family Disease History Family Disease History: [place]: Mother, Sister Review of Systems - Review of Systems Constitutional: reports: Loss of Appetite Respiratory: reports: Cough Vital Signs: Vital Signs Temperature 98.6 F 09/06/17 04:00 Pulse Rate 56 L 09/06/17 07:59 Respiratory Rate 22 09/06/17 07:59 Blood Pressure 132/65 09/06/17 07:59 O2 Sat by Pulse Oximetry (%) 99 09/06/17 07:59 Constitutional: Yes: No Distress, Calm, Thin Neck: Yes: Supple Respiratory: Yes: Regular, Diminished Gastrointestinal: Yes: Soft, Hypoactive Bowel Sounds Cardiovascular: Yes: Regular Rate and Rhythm JVD: No Carotid Bruit: No Heart Sounds: Yes: S1, S2 Murmur: Yes: Systolic Murmur, Grade 2 Edema: No - Other Data Labs, Other Data: CBC, BMP 09/06/17 06:22 09/06/17 06:22 INR, PTT INR 1.39 (0.82-1.09) H 09/05/17 18:00 Troponin, BNP 09/05/17 09/05/17 09/05/17 18:00 18:00 23:15 Troponin I 1.52 H* D 1.29 H* B-Natriuretic Peptide 21422.02 H 09/06/17 06:22 Troponin I 1.43 H* B-Natriuretic Peptide Troponin, BNP 09/05/17 09/05/17 09/05/17 18:00 18:00 23:15 Troponin I 1.52 H* D 1.29 H* B-Natriuretic Peptide 46293.02 H 09/06/17 06:22 Troponin I 1.43 H* B-Natriuretic Peptide SB @ 53 LAD anteroseptal infarct Ejection Fraction %: LVEF > or = 40 % Imaging - Results Chest X-ray: Report Reviewed (Mild congestion) Ultrasound: Report Reviewed (Renal U/S: No hydronephrosis, + medicorenal disease ) Problem List - Problems (1) Diastolic dysfunction Code(s): I51.9 - HEART DISEASE, UNSPECIFIED (2) Influenza Code(s): J11.1 - FLU DUE TO UNIDENTIFIED INFLUENZA VIRUS W OTH RESP MANIFEST (3) UTI (urinary tract infection) Code(s): N39.0 - URINARY TRACT INFECTION, SITE NOT SPECIFIED Qualifiers: Urinary tract infection type: site unspecified Hematuria presence: without hematuria Qualified Code(s): N39.0 - Urinary tract infection, site not specified (4) Anemia Code(s): D64.9 - ANEMIA, UNSPECIFIED Qualifiers: Anemia type: due to chronic kidney disease Chronic kidney disease stage: stage 4 (severe) Qualified Code(s): N18.4 - Chronic kidney disease, stage 4 ( severe); D63.1 - Anemia in chronic kidney disease; D63.1 - Anemia in chronic kidney disease (5) Troponin level elevated Code(s): R74.8 - ABNORMAL LEVELS OF OTHER SERUM ENZYMES (6) CAD (coronary artery disease) Code(s): I25.10 - ATHSCL HEART DISEASE OF [place] CORONARY ARTERY W/O ANG PCTRS Qualifiers: Coronary Disease-Associated Artery/Lesion type: [place] artery [place] vs. transplanted heart: [place] heart Associated angina: without angina Qualified Code(s): I25.10 - Atherosclerotic heart disease of [place] coronary artery without angina pectoris (7) CKD (chronic kidney disease) Code(s): N18.9 - CHRONIC KIDNEY DISEASE, UNSPECIFIED Qualifiers: Chronic kidney disease stage: stage 4 (severe) Qualified Code(s): N18.4 - Chronic kidney disease, stage 4 (severe) (8) Diabetes Code(s): E11.9 - TYPE 2 DIABETES MELLITUS WITHOUT COMPLICATIONS Qualifiers: 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 type: type 2 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 complication status: with kidney complications 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 complication detail: with nephropathy 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 intermediate designer insulin use: unspecified jail insulin use status Qualified Code(s): E11.21 - Type 2 diabetes mellitus with diabetic nephropathy (9) HTN (hypertension) Code(s): I10 - ESSENTIAL (PRIMARY) HYPERTENSION Qualifiers: Hypertension type: essential hypertension Qualified Code(s): I10 - Essential (primary) hypertension (10) Hx of CABG Code(s): Z95.1 - PRESENCE OF AORTOCORONARY BYPASS GRAFT (11) Hypercholesterolemia Code(s): E78.00 - PURE HYPERCHOLESTEROLEMIA, UNSPECIFIED (12) PAD (peripheral artery disease) Code(s): I73.9 - PERIPHERAL VASCULAR DISEASE, UNSPECIFIED (13) Demand ischemia Code(s): I24.8 - OTHER FORMS OF ACUTE ISCHEMIC HEART DISEASE (14) Acute on chronic renal failure Code(s): N17.9 - ACUTE KIDNEY FAILURE, UNSPECIFIED; N18.9 - CHRONIC KIDNEY DISEASE, UNSPECIFIED Qualifiers: Chronic kidney disease stage: stage 4 (severe) Assessment/Plan 07/11/2017 Low normal LV fxn, abnl LV compliance, mod MR, mod-severe TR, severe pulm HTN, mild [place] 1. Sepsis suspect source, Influenza positive 2. ASA-associated gastritis 2. CAD post CABG, angina pectoris with evidence of demand ischemic injury, related to above 3. Diastolic LV dysfunction with class 0 NYHA classification LV failure 4. Hypertension/HCVD 5. 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 6. Hypercholesterolemia 7. PAD post peripheral bypass surgery 8. Acute on CKD, uremia associated anorexia 9. Anemia of chronic disease with h/o transfusion 10. BPH, urinary retention PLAN: 1. Optimize medical therapy considering that he is asymptomatic with downtrending Troponin I, would not pursue any further cardiac intervention 2. Abx per C&S, judicious IVF, d/c diuretics and monitor renal recovery and electrolytes, renal-dosed Tamiflu 3. Continue Carvedilol 12.5 bid 3. Continue Procardia XL 30 qd 4. Continue Plavix 75 qd with caution 5. Hold Lasix 40 bid until renal function recovers and stabilizes 6. Continue Atorvastatin 20 qhs 7. Transfuse to maintain Hg equal or > 8.0, GI protection with PPI and carafate 8. Trops have peaked 9. Encourage oral intake, f/u with Dr. Ángel Murguia at [facility] upn d/c 10. Thank you for consultative opportunity
--- NOTE | 2017-09-06 10:59 | EKG ---
Test Reason : Blood Pressure : / mmHG Vent. Rate : 053 BPM Atrial Rate : 053 BPM P-R Int : 174 ms QRS Dur : 098 ms QT Int : 504 ms P-R-T Axes : 067 -30 139 degrees QTc Int : 472 ms SINUS BRADYCARDIA LEFT AXIS DEVIATION ANTEROSEPTAL INFARCT (CITED ON OR BEFORE 23-JUL-2017) T WAVE ABNORMALITY, CONSIDER LATERAL ISCHEMIA ABNORMAL ECG WHEN COMPARED WITH ECG OF 05-SEP-2017 18:35, NO SIGNIFICANT CHANGE WAS FOUND Confirmed by SOFY PAUL MD ([id number]) on 09/06/2017 10:59:37 AM Referred By: Confirmed By:SOFY PAUL MD
--- NOTE | 2017-09-06 11:00 | EKG ---
Test Reason : Blood Pressure : / mmHG Vent. Rate : 060 BPM Atrial Rate : 060 BPM P-R Int : 180 ms QRS Dur : 092 ms QT Int : 500 ms P-R-T Axes : 064 -27 149 degrees QTc Int : 500 ms NORMAL SINUS RHYTHM MINIMAL VOLTAGE CRITERIA FOR LVH, MAY BE NORMAL VARIANT ANTEROSEPTAL INFARCT (CITED ON OR BEFORE 23-JUL-2017) PROLONGED QT ABNORMAL ECG WHEN COMPARED WITH ECG OF 23-JUL-2017 07:48, T WAVE INVERSION NOW EVIDENT IN ANTERIOR LEADS QT HAS LENGTHENED Confirmed by HUMBERTO ROSALES, SOFY ([id number]) on 09/06/2017 11:00:21 AM Referred By: Confirmed By:SOFY PAUL MD
--- NOTE | 2017-09-06 11:50 | PN ---
Physical Exam: SUBJECTIVE: Patient seen and examined at bedside. Reports SOB, denies any chest pain , palpitations, headache, blurry vision, OBJECTIVE: Vital Signs Period Temp Pulse Resp BP Sys/Rodriguez Pulse Ox Last 24 Hr 98.4 F-101.2 F 53-60 16-26 132-145/50-66 92-99 GENERAL: AAOx3 in NAD HEAD: NC/AT EYES: EOMI, Conductive clear, sclera anicteric ENT : dry mucous membrane NECK:Supple, no JVD LUNGS: B/L base crackles , difuse coarse breath sounds. HEART: RRR, NSR, normal s1,s2 , soft murmur 1-2/6 LUSB, no R/G ABDOMEN: Soft , ND, NT, +BS 4 Q, no CVA Tenderness LOWER EXTREMITIES: no edema, +2 pulse , B/L scar medial side. NEUROLOGICAL: Cranial nerves II-XII intact. Normal speech. gait not observed. PSYCHIATRIC: Cooperative. Good eye contact. Appropriate mood and affect. SKIN: Warm, dry, Laboratory Results - last 24 hr 09/05/17 09/05/17 09/05/17 18:00 18:00 18:00 WBC 11.8 H D RBC 2.75 L Hgb 7.5 L D Hct 23.0 L MCV 83.9 MCH 27.3 MCHC 32.6 RDW 16.3 H Plt Count 212 MPV 7.5 Neutrophils % 90.0 H D Lymphocytes % 4.5 L D Monocytes % 5.3 Eosinophils % 0.0 D Basophils % 0.2 PT with INR INR PTT (Actin FS) Anticoagulation Therapy Puncture Site ABG pH ABG pCO2 at Pt Temp ABG pO2 at Pt Temp ABG HCO3 ABG O2 Sat (Measured) ABG O2 Content ABG Base Excess Mono Test Carboxyhemoglobin Methemoglobin O2 Delivery Device Oxygen Flow Rate Vent Mode Vent Rate Mechanical Rate Pressure Support Vent Sodium Potassium Chloride Carbon Dioxide Anion Gap BUN Creatinine Creat Clearance w eGFR POC Glucometer Random Glucose Lactic Acid Calcium Phosphorus Magnesium 2.2 D Total Bilirubin AST ALT Alkaline Phosphatase Creatine Kinase Creatine Kinase Index CK-MB (CK-2) Troponin I B-Natriuretic Peptide 95559.02 H Total Protein Albumin Urine Color Urine Appearance Urine pH Ur Specific [employer] Urine Protein Urine Glucose (UA) Urine Ketones Urine Blood Urine Nitrite Urine Bilirubin Urine Urobilinogen Ur Leukocyte Esterase Urine WBC (Auto) Urine RBC (Auto) Ur Epithelial Cells Urine Bacteria Blood Type B POSITIVE Antibody Screen Negative Crossmatch See Detail 09/05/17 09/05/17 09/05/17 18:00 18:00 18:00 WBC RBC Hgb Hct MCV MCH MCHC RDW Plt Count MPV Neutrophils % Lymphocytes % Monocytes % Eosinophils % Basophils % PT with INR 15.70 H INR 1.39 H PTT (Actin FS) 37.2 H Anticoagulation Therapy Puncture Site ABG pH ABG pCO2 at Pt Temp ABG pO2 at Pt Temp ABG HCO3 ABG O2 Sat (Measured) ABG O2 Content ABG Base Excess Mono Test Carboxyhemoglobin Methemoglobin O2 Delivery Device Oxygen Flow Rate Vent Mode Vent Rate Mechanical Rate Pressure Support Vent Sodium 135 L Potassium 4.4 Chloride 104 Carbon Dioxide 20 L D Anion Gap 11 BUN 149 H* D Creatinine 6.4 H D Creat Clearance w eGFR 8.65 POC Glucometer Random Glucose 300 H D Lactic Acid 1.2 Calcium 7.1 L Phosphorus Magnesium Total Bilirubin 0.4 D AST 21 D ALT 48 D Alkaline Phosphatase 138 H Creatine Kinase Creatine Kinase Index CK-MB (CK-2) Troponin I B-Natriuretic Peptide Total Protein 6.7 Albumin 2.7 L Urine Color Urine Appearance Urine pH Ur Specific [employer] Urine Protein Urine Glucose (UA) Urine Ketones Urine Blood Urine Nitrite Urine Bilirubin Urine Urobilinogen Ur Leukocyte Esterase Urine WBC (Auto) Urine RBC (Auto) Ur Epithelial Cells Urine Bacteria Blood Type Antibody Screen Crossmatch 09/05/17 09/05/17 09/05/17 18:00 18:40 18:55 WBC RBC Hgb Hct MCV MCH MCHC RDW Plt Count MPV Neutrophils % Lymphocytes % Monocytes % Eosinophils % Basophils % PT with INR INR PTT (Actin FS) Anticoagulation Therapy No Result Required. Puncture Site Right radial ABG pH 7.36 ABG pCO2 at Pt Temp 31.8 L ABG pO2 at Pt Temp 52.7 L ABG HCO3 17.6 L ABG O2 Sat (Measured) 84.5 L ABG O2 Content 8.9 L* ABG Base Excess -6.6 L Mono Test Positive Carboxyhemoglobin Methemoglobin O2 Delivery Device No Result Required. Oxygen Flow Rate Room air Vent Mode No Result Required. Vent Rate No Result Required. Mechanical Rate No Result Required. Pressure Support Vent No Result Required. Sodium Potassium Chloride Carbon Dioxide Anion Gap BUN Creatinine Creat Clearance w eGFR POC Glucometer Random Glucose Lactic Acid Calcium Phosphorus Magnesium Total Bilirubin AST ALT Alkaline Phosphatase Creatine Kinase 270 Creatine Kinase Index 0.6 CK-MB (CK-2) 1.880 Troponin I 1.52 H* D B-Natriuretic Peptide Total Protein Albumin Urine Color Yellow Urine Appearance Turbid Urine pH 5.0 Ur Specific [employer] 1.011 Urine Protein 2+ H Urine Glucose (UA) 1+ H Urine Ketones Negative Urine Blood 1+ H Urine Nitrite Negative Urine Bilirubin Negative Urine Urobilinogen Negative Ur Leukocyte Esterase 3+ H Urine WBC (Auto) 1706 Urine RBC (Auto) None Ur Epithelial Cells Rare Urine Bacteria Many Blood Type Antibody Screen Crossmatch 09/05/17 09/05/17 09/06/17 18:55 23:15 06:22 WBC 11.0 H RBC 3.15 L Hgb 8.8 L D Hct 26.7 L D MCV 84.9 MCH 28.0 MCHC 32.9 RDW 16.0 H Plt Count 183 MPV 7.5 Neutrophils % 89.4 H Lymphocytes % 4.8 L Monocytes % 5.6 Eosinophils % 0.0 Basophils % 0.2 PT with INR INR PTT (Actin FS) Anticoagulation Therapy Puncture Site ABG pH ABG pCO2 at Pt Temp ABG pO2 at Pt Temp ABG HCO3 ABG O2 Sat (Measured) ABG O2 Content ABG Base Excess Mono Test Carboxyhemoglobin 1.2 Methemoglobin 1.0 O2 Delivery Device Oxygen Flow Rate Vent Mode Vent Rate Mechanical Rate Pressure Support Vent Sodium 137 Potassium 4.1 Chloride 105 Carbon Dioxide 19 L Anion Gap 13 BUN 144 H* Creatinine 6.1 H Creat Clearance w eGFR 9.14 POC Glucometer Random Glucose 298 H Lactic Acid Calcium 7.0 L Phosphorus Magnesium Total Bilirubin 0.4 AST 20 ALT 42 Alkaline Phosphatase 115 Creatine Kinase 270 Creatine Kinase Index 0.6 CK-MB (CK-2) 1.784 Troponin I 1.29 H* B-Natriuretic Peptide Total Protein 6.2 L Albumin 2.4 L Urine Color Urine Appearance Urine pH Ur Specific [employer] Urine Protein Urine Glucose (UA) Urine Ketones Urine Blood Urine Nitrite Urine Bilirubin Urine Urobilinogen Ur Leukocyte Esterase Urine WBC (Auto) Urine RBC (Auto) Ur Epithelial Cells Urine Bacteria Blood Type Antibody Screen Crossmatch 09/06/17 09/06/17 06:22 07:14 WBC RBC Hgb Hct MCV MCH MCHC RDW Plt Count MPV Neutrophils % Lymphocytes % Monocytes % Eosinophils % Basophils % PT with INR INR PTT (Actin FS) Anticoagulation Therapy Puncture Site ABG pH ABG pCO2 at Pt Temp ABG pO2 at Pt Temp ABG HCO3 ABG O2 Sat (Measured) ABG O2 Content ABG Base Excess Mono Test Carboxyhemoglobin Methemoglobin O2 Delivery Device Oxygen Flow Rate Vent Mode Vent Rate Mechanical Rate Pressure Support Vent Sodium 138 Potassium 4.4 Chloride 106 Carbon Dioxide 21 Anion Gap 11 BUN 142 H* Creatinine 6.1 H Creat Clearance w eGFR 9.14 POC Glucometer 282.44664 Random Glucose 246 H Lactic Acid Calcium 7.1 L Phosphorus 5.3 H Magnesium 2.2 Total Bilirubin 0.5 D AST 18 ALT 41 Alkaline Phosphatase 118 H Creatine Kinase Creatine Kinase Index CK-MB (CK-2) Troponin I 1.43 H* B-Natriuretic Peptide Total Protein 6.4 Albumin 2.6 L Urine Color Urine Appearance Urine pH Ur Specific [employer] Urine Protein Urine Glucose (UA) Urine Ketones Urine Blood Urine Nitrite Urine Bilirubin Urine Urobilinogen Ur Leukocyte Esterase Urine WBC (Auto) Urine RBC (Auto) Ur Epithelial Cells Urine Bacteria Blood Type Antibody Screen Crossmatch Active Medications Generic Name Dose Route Start Last Admin Trade Name Freq PRN Reason Stop Dose Admin Sodium Chloride 1,000 mls @ 75 mls/hr 09/06/17 12:00 1/2 Normal Saline IV 09/07/17 01:19 ASDIR [facility] Insulin Aspart 1 vial 09/06/17 07:00 09/06/17 07:17 Novolog Vial Sliding Scale - SQ 6 unit ACHS [facility] Administration Protocol Oseltamivir Phosphate 30 mg 09/06/17 10:45 Tamiflu - PO 09/11/17 10:44 BID [facility] CBC, BMP 09/06/17 06:22 09/06/17 06:22 CXR : mild vascular congestion, no infiltrate or pleural effusion , mild enlarge cardiac sellout Renal US : mild renal disease, right kidney atrophy, left kidney cyst 2.4 cm ASSESSMENT/PLAN: 71 yo M with anemia on procrit, CAD s/p CABG/stents, GERD, HLD, CKD- Stg 4, DM, Chronic back pain (s/p laminectomy and fusions) and chronic constipations, who presents with cough and shortness of breath, recently treated for the flu, found to be Septic #Sepsis likely 2/2 UTI vs flue * duron cx Blood ,urine and sputum * Vanco/zosyn in ED * continue with ceftriaxone 1 gm daily per ID * IV fluids with cautions due to DCHF (1/2 NS @ 83 cc/hr one bag ) * LA 1.2 #Flu B positive * S/P 2 days of tamiflue * continue renal dose 30 mg BID for 3 days * droplet precautions # Acute on chronic diastolic CHF * daily weight * I& O * cardiology on board * ECKo with EF 39.5 * Hold lasix for now till CHIARA improved # elevated troponin likely NSTEMI vs demand ischemia vs Renal failure * trop 1.52....1.29.....1.43 peaked * old ant Q w/ new ant TWI * cardiology on board * start ASA and statin #CHIARA on CKD stage 4 likely pre renal due to volume depletion # Urinary retension 2/2 BPH * Surgical Attendant 6.4 baseline 4 * Renal U/S. mild renal disease, right kidney atrophy, left kidney cyst 2.4 cm * nephrology on board * IV fluids 1/2 NS @ 83 cc/hr one bag * low sodium diabetic renal diet * Chen in place * Might need HD per nephro # Normocytic anemia likely 2/2 ESRD vs blood loss vs low oral intake * H/H 7.5/23 * S/p one PRBC transfusion , H/H 8.8 /26.7 * transfuse if hgb below 8 (pt has h/o CAD ) * monitor H/H * occult blood * hold plavix # DM * hold home meds * ISS * BGM TID * diabetic diet * * # H/O CAD S/p CABG * c/w ASA and statin , plavix 75 mg po qd with cautions # HTN * c/w home meds : Coreg 12.5 mg po daily , pradaxa 70 po daily * # HLD : * C/o statin 40 mg po daily # FEN * F: gentle hydration one bag of 1/2 NS @ 83 cc/hr * E: WNL monitor * Low sodium diabetic diet, renal diet * # Proph * DVT : SCDs , no chemical due to anemia * GI : c/w brotonix 40 mg daily home dose * # Dispo : * admit to tele Visit type - Emergency Visit Emergency Visit: Yes ED Registration Date: 09/05/17 Care time: The patient presented to the Emergency Department on the above date and was hospitalized for further evaluation of their emergent condition. - New Patient This patient is new to me today: Yes Date on this admission: 09/07/17 - Critical Care Critical Care patient: No - Discharge Referral Referred to [facility] Med P.C.: No
[2017-09-06] MEDS ORDERED: SODIUM CHLORIDE 0.45% 1,000 ML IV SCH ×2 (12:00→12:12)
--- NOTE | 2017-09-06 12:04 | CONSULT ---
Consult Consult Specialty:: Nephrology Reason for Consultation:: CKD with ANITA - History of Present Illness Chief Complaint: sent in for the Flu History of Present Illness: Pt is a 71 year old male with pmhx of CAD, CABG, CKD, HTN, CHold, and anemia who was sent in to the ER for positive Flu. He has had decrease PO intake for the last week and complains of fatigue and weakness. He says that he has not eaten anything in days. He was found to have elevated creatinine and elevated BUN. He had a flye for retention in the past however it was removed before admission. He complains of dry mouth and of cough. He denies lower ext edema. He appears very frail and weak. He denies dysuria but says he has been making less urine. He denies nsaid use. He has been on lasix in the [place]. He did not have a fistula placed yet. - History Source History Provided By: Patient, Medical Record - Past Medical History Cardio/Vascular: Yes: CAD, CHF, HTN, Hyperlipdemia, [place] Gastrointestinal: Yes: Constipation, GI Bleed Renal/: Yes: Renal Inusuff, Neurogenic Bladder Endocrine: Yes: Diabetes Mellitus - Past Surgical History Past Surgical History: Yes: Bypass (Lower extremity), CABG, Hernia Repair, Stent (PCI) - Alcohol/Substance Use Hx Alcohol Use: No History of Substance Use: reports: None - Smoking History Smoking history: Former smoker Have you smoked in the past 12 months: No If you are a former smoker, when did you quit?: 30YRS - Social History ADL: Family Assistance History of Recent Travel: No Home Medications - Allergies Allergies/Adverse Reactions: Allergies Allergy/AdvReac Type Severity Reaction Status Date / Time tramadol Allergy Verified 09/05/17 18:04 oxycodone HCl [From Percocet] AdvReac Intermediate nausea Verified 09/05/17 18: 04 ticagrelor [From BRILINTA] AdvReac Intermediate Verified 09/05/17 18:04 - Home Medications Home Medications: Ambulatory Orders Cholecalciferol (Vitamin D3) [Vitamin D3] 1,000 unit PO DAILY tablet 09/02/12 Clopidogrel Bisulfate [Clopidogrel] 75 mg PO HS #90 tablet 01/10/16 Carvedilol 12.5 mg PO BID 06/11/17 Ferrous Sulfate [Feosol] 325 mg PO DAILY ud 07/12/17 Docusate Sodium [Colace -] 300 mg PO HS 07/14/17 Insulin Glargine,Hum.rec.anlog [Lantus Solostar PEN -] 15 units SQ HS 07/14/17 Lidocaine 5% Patch [Lidoderm -] 1 patch TP DAILY #7 patch 07/15/17 Nifedipine ER [Procardia XL -] 30 mg PO DAILY tab.er.24 07/22/17 Furosemide [Lasix -] 40 mg PO BID 07/23/17 Insulin Sliding Scale [Novolog Vial Sliding Scale -] 1 vial SQ TIDAC PRN Simvastatin 40 mg PO HS 07/23/17 Pantoprazole Sodium [Protonix -] 40 mg PO DAILY #30 tablet.ec 07/25/17 Sucralfate [Carafate -] 1 gm PO BID #60 tablet 07/25/17 Tamsulosin HCl [Flomax -] 0.4 mg PO HS cap.er.24h 07/25/17 Polyethylene Glycol 3350 [Miralax (For Daily Use) -] 17 gm PO DAILY 09/03/17 Oseltamivir Phosphate [Tamiflu] 75 mg PO BID 09/05/17 Family Disease History - Family Disease History Family Disease History: [place]: Mother, Sister Review of Systems - Review of Systems Constitutional: reports: Chills, Fever, Malaise Eyes: reports: No Symptoms HENT: reports: No Symptoms Neck: reports: No Symptoms Cardiovascular: reports: No Symptoms. denies: Edema, Palpitations, Shortness of Breath Respiratory: reports: Cough Gastrointestinal: reports: No Symptoms Genitourinary: reports: No Symptoms Musculoskeletal: reports: Muscle Weakness Neurological: reports: No Symptoms Endocrine: reports: No Symptoms Physical Exam Vital Signs: Vital Signs Temperature 98.6 F 09/06/17 04:00 Pulse Rate 56 L 09/06/17 07:59 Respiratory Rate 22 09/06/17 07:59 Blood Pressure 132/65 09/06/17 07:59 O2 Sat by Pulse Oximetry (%) 99 09/06/17 07:59 Constitutional: Yes: Calm Eyes: Yes: Conjunctiva Clear HENT: Yes: Atraumatic Neck: Yes: Supple Cardiovascular: Yes: S1, S2 Respiratory: Yes: On Nasal O2, Rales Renal/: Yes: Chen Present Musculoskeletal: Yes: Muscle Weakness Edema: No Neurological: Yes: Oriented Psychiatric: Yes: Oriented Labs: CBC, BMP 09/06/17 06:22 09/06/17 06:22 Laboratory Tests 09/05/17 09/05/17 09/05/17 18:00 18:00 18:40 WBC 11.8 H D Hgb BUN 149 H* D Creatinine 6.4 H D Urine Protein 2+ H Urine Glucose (UA) 1+ H Urine Blood 1+ H Ur Leukocyte Esterase 3+ H Urine WBC (Auto) 1706 Urine RBC (Auto) None Urine Bacteria Many 09/05/17 09/06/17 09/06/17 23:15 06:22 06:22 WBC 11.0 H Hgb 8.8 L D BUN 144 H* 142 H* Creatinine 6.1 H 6.1 H Urine Protein Urine Glucose (UA) Urine Blood Ur Leukocyte Esterase Urine WBC (Auto) Urine RBC (Auto) Urine Bacteria Imaging - Results Chest X-ray: Report Reviewed Problem List - Problems (1) Influenza Code(s): J11.1 - FLU DUE TO UNIDENTIFIED INFLUENZA VIRUS W OTH RESP MANIFEST (2) UTI (urinary tract infection) Code(s): N39.0 - URINARY TRACT INFECTION, SITE NOT SPECIFIED Qualifiers: Urinary tract infection type: site unspecified Hematuria presence: without hematuria Qualified Code(s): N39.0 - Urinary tract infection, site not specified (3) CAD (coronary artery disease) Code(s): I25.10 - ATHSCL HEART DISEASE OF [place] CORONARY ARTERY W/O ANG PCTRS Qualifiers: Coronary Disease-Associated Artery/Lesion type: [place] artery [place] vs. transplanted heart: [place] heart Associated angina: without angina Qualified Code(s): I25.10 - Atherosclerotic heart disease of [place] coronary artery without angina pectoris (4) CKD (chronic kidney disease) Code(s): N18.9 - CHRONIC KIDNEY DISEASE, UNSPECIFIED Qualifiers: Chronic kidney disease stage: stage 4 (severe) Qualified Code(s): N18.4 - Chronic kidney disease, stage 4 (severe) (5) Diabetes Code(s): E11.9 - TYPE 2 DIABETES MELLITUS WITHOUT COMPLICATIONS Qualifiers: 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 type: type 2 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 complication status: with kidney complications 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 complication detail: with nephropathy 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 mcfp insulin use: unspecified mcfp insulin use status Qualified Code(s): E11.21 - Type 2 diabetes mellitus with diabetic nephropathy Assessment/Plan Current Medications Generic Name Dose Route Start Last Admin Trade Name David PRN Reason Stop Dose Admin Sodium Chloride 1,000 mls @ 75 mls/hr 09/06/17 12:00 1/2 Normal Saline IV 09/07/17 01:19 ASDIR [facility] Insulin Aspart 1 vial 09/06/17 07:00 09/06/17 07:17 Novolog Vial Sliding Scale - SQ 6 unit ACHS [facility] Administration Protocol Oseltamivir Phosphate 30 mg 09/06/17 10:45 Tamiflu - PO 09/11/17 10:44 BID ROSIE reviewed chart reviewed labs reviewed meds Impression 1. CKD 2. anemia 3. HTN 4. Chol 5. DM 6. BPH 7. CAD 8. urinary retention 9. GI bleed 10. positive for Flu 11. UTI 12. ANITA Plan - cont with IV fluids - hold diuretics, pt had been on lasix - will need to monitor volume status closely - may need to start HD if function does not improve - send urine cultures and start abx - ID eval - pt clinically appears dehydrated - admit to hospital - discussed with ER team last night - discussed with Dr Fernandez - cardio input appreciated - likely anita on CKD from dehydration and pre-renal disease - will follow
[2017-09-06] MEDS: OSELTAMIVIR PHOSPHATE 30 MG CAPSULE PO SCH ×2 (14:55→22:07)
--- NOTE | 2017-09-06 16:38 | CON.ID ---
Consult Consult Specialty:: infectious disease Referred by:: hospitalist Reason for Consultation:: cough, change in mental status - History of Present Illness Chief Complaint: cough, decreased appetite, fever 101.2 History of Present Illness: 71 year old man with CKD and DM, admitted from SNF with changed in mental status , cough and poor apetite denies vomiting denies diarrhea currently alert diagnosed with influenza B at the CT and started on tamiflu found to have acute on chronic renal failure and positive troponins here in ED witt placed in ED no chest pain, no abdominal pain saw dr lorenzo on 09/02 for evaluation for fistula placement received vanco/zosyn in ED placed on tamiflu - History Source History Provided By: Patient, Medical Record Limitations to Obtaining History: Clinical Condition - Past Medical History Cardio/Vascular: Yes: CAD, CHF, HTN, Hyperlipdemia, [place] Gastrointestinal: Yes: Constipation, GI Bleed Renal/: Yes: Renal Inusuff, Neurogenic Bladder Endocrine: Yes: Diabetes Mellitus - Past Surgical History Past Surgical History: Yes: Bypass (Lower extremity), CABG, Hernia Repair, Laminectomy, Stent (PCI) - Alcohol/Substance Use Hx Alcohol Use: No History of Substance Use: reports: None - Smoking History Smoking history: Former smoker Have you smoked in the past 12 months: No If you are a former smoker, when did you quit?: 30YRS - Social History Usual Living Arrangement: Half-Way ADL: Support Services History of Recent Travel: No Home Medications - Allergies Allergies/Adverse Reactions: Allergies Allergy/AdvReac Type Severity Reaction Status Date / Time tramadol Allergy Verified 09/05/17 18:04 oxycodone HCl [From Percocet] AdvReac Intermediate nausea Verified 09/05/17 18: 04 ticagrelor [From BRILINTA] AdvReac Intermediate Verified 09/05/17 18:04 - Home Medications Home Medications: Ambulatory Orders Cholecalciferol (Vitamin D3) [Vitamin D3] 1,000 unit PO DAILY tablet 09/02/12 Clopidogrel Bisulfate [Clopidogrel] 75 mg PO HS #90 tablet 01/10/16 Carvedilol 12.5 mg PO BID 06/11/17 Ferrous Sulfate [Feosol] 325 mg PO DAILY ud 07/12/17 Docusate Sodium [Colace -] 300 mg PO HS 07/14/17 Insulin Glargine,Hum.rec.anlog [Lantus Solostar PEN -] 15 units SQ HS 07/14/17 Lidocaine 5% Patch [Lidoderm -] 1 patch TP DAILY #7 patch 07/15/17 Nifedipine ER [Procardia XL -] 30 mg PO DAILY tab.er.24 07/22/17 Furosemide [Lasix -] 40 mg PO BID 07/23/17 Insulin Sliding Scale [Novolog Vial Sliding Scale -] 1 vial SQ TIDAC PRN Simvastatin 40 mg PO HS 07/23/17 Pantoprazole Sodium [Protonix -] 40 mg PO DAILY #30 tablet.ec 07/25/17 Sucralfate [Carafate -] 1 gm PO BID #60 tablet 07/25/17 Tamsulosin HCl [Flomax -] 0.4 mg PO HS cap.er.24h 07/25/17 Polyethylene Glycol 3350 [Miralax (For Daily Use) -] 17 gm PO DAILY 09/03/17 Oseltamivir Phosphate [Tamiflu] 75 mg PO BID 09/05/17 Family Disease History - Family Disease History Family Disease History: [place]: Mother, Sister Review of Systems - Review of Systems Constitutional: reports: Lethargy, Loss of Appetite, Weakness Eyes: reports: No Symptoms HENT: reports: No Symptoms. denies: Difficult Swallowing, Throat Pain Neck: reports: No Symptoms Cardiovascular: reports: No Symptoms. denies: Chest Pain Respiratory: reports: Cough Gastrointestinal: denies: Constipation, Diarrhea Genitourinary: reports: No Symptoms Breasts: reports: No Symptoms Reported Musculoskeletal: reports: No Symptoms Physical Exam Vital Signs: Vital Signs Temperature 98.3 F 09/06/17 08:00 Pulse Rate 58 L 09/06/17 14:00 Respiratory Rate 22 09/06/17 14:00 Blood Pressure 149/66 09/06/17 14:00 O2 Sat by Pulse Oximetry (%) 98 09/06/17 14:00 Constitutional: Yes: Well Nourished, No Distress, Calm Eyes: Yes: Conjunctiva Clear HENT: Yes: Atraumatic, Normocephalic. No: Thrush Neck: Yes: Supple, Trachea Midline Cardiovascular: Yes: Regular Rate and Rhythm Respiratory: Yes: Regular, CTA Bilaterally Gastrointestinal: Yes: Normal Bowel Sounds, Soft. No: Tenderness ...Rectal Exam: Yes: Deferred Renal/: Yes: Witt Present. No: CVA Tenderness - Left, CVA Tenderness - Right Extremities: Yes: WNL Edema: No Psychiatric: Yes: Alert, Oriented Labs: CBC, BMP 09/06/17 06:22 09/06/17 06:22 blood culture and urine culture sent UA with 1706 wbc Imaging - Results Chest X-ray: Report Reviewed, Image Reviewed Ultrasound: Report Reviewed (no hydronephrosis) Other: Report Reviewed (duplex no devt) Problem List - Problems (1) Influenza B Code(s): J10.1 - FLU DUE TO OTH IDENT INFLUENZA VIRUS W OTH RESP MANIFEST (2) UTI (urinary tract infection) Code(s): N39.0 - URINARY TRACT INFECTION, SITE NOT SPECIFIED Qualifiers: Urinary tract infection type: site unspecified Hematuria presence: without hematuria Qualified Code(s): N39.0 - Urinary tract infection, site not specified (3) Acute on chronic renal failure Code(s): N17.9 - ACUTE KIDNEY FAILURE, UNSPECIFIED; N18.9 - CHRONIC KIDNEY DISEASE, UNSPECIFIED Qualifiers: Chronic kidney disease stage: stage 4 (severe) (4) Anemia Code(s): D64.9 - ANEMIA, UNSPECIFIED Qualifiers: Anemia type: due to chronic kidney disease Chronic kidney disease stage: stage 4 (severe) Qualified Code(s): N18.4 - Chronic kidney disease, stage 4 ( severe); D63.1 - Anemia in chronic kidney disease; D63.1 - Anemia in chronic kidney disease (5) Elevated troponin I level Code(s): R74.8 - ABNORMAL LEVELS OF OTHER SERUM ENZYMES Assessment/Plan continue tamiflu for influenza start rocephin for UTI-no history of resistant organisms- f/u cultures droplet isolation continue fluids, good urine output noted positive troponins per cardiology anemia- transfuse as needed overall prognosis is guarded
[2017-09-06] MEDS ORDERED: cefTRIAXone 1 GM/50 ML BAG (PRE-DOCKED) IVPB SCH (16:45)
[2017-09-06 18:44] VITALS: BMI 23.8
--- NOTE | 2017-09-06 19:33 | PN ---
Teaching Attending Note Name of Resident: Fred Davis ATTENDING PHYSICIAN STATEMENT I saw and evaluated the patient. I reviewed the resident's note and discussed the case with the resident. I agree with the resident's findings and plan as documented. SUBJECTIVE: Patient is feeling better with no acute distress. No fever or chills. OBJECTIVE: Vital Signs Temperature 97.5 F L 09/06/17 18:22 Pulse Rate 58 L 09/06/17 18:22 Respiratory Rate 18 09/06/17 18:22 Blood Pressure 158/65 09/06/17 18:22 O2 Sat by Pulse Oximetry (%) 95 09/06/17 18:51 CBCD WBC 11.0 K/mm3 (4.0-10.0) H 09/06/17 06:22 RBC 3.15 M/mm3 (4.00-5.60) L 09/06/17 06:22 Hgb 8.8 GM/dL (11.7-16.9) L D 09/06/17 06:22 Hct 26.7 % (35.4-49) L D 09/06/17 06:22 MCV 84.9 fl (80-96) 09/06/17 06:22 MCHC 32.9 g/dl (32.0-35.9) 09/06/17 06:22 RDW 16.0 % (11.9-15.9) H 09/06/17 06:22 Plt Count 183 K/MM3 (134-434) 09/06/17 06:22 MPV 7.5 fl (7.5-11.1) 09/06/17 06:22 CMP Sodium 138 mmol/L (136-145) 09/06/17 06:22 Potassium 4.4 mmol/L (3.5-5.1) 09/06/17 06:22 Chloride 106 mmol/L (98-107) 09/06/17 06:22 Carbon Dioxide 21 mmol/L (21-32) 09/06/17 06:22 Anion Gap 11 (8-16) 09/06/17 06:22 BUN 142 mg/dL (7-18) H* 09/06/17 06:22 Creatinine 6.1 mg/dL (0.7-1.3) H 09/06/17 06:22 Creat Clearance w eGFR 9.14 (>60) 09/06/17 06:22 Random Glucose 246 mg/dL (74-106) H 09/06/17 06:22 Calcium 7.1 mg/dL (8.5-10.1) L 09/06/17 06:22 Total Bilirubin 0.5 mg/dL (0.2-1.0) D 09/06/17 06:22 AST 18 U/L (15-37) 09/06/17 06:22 ALT 41 U/L (12-78) 09/06/17 06:22 Alkaline Phosphatase 118 U/L (45-117) H 09/06/17 06:22 Total Protein 6.4 g/dl (6.4-8.2) 09/06/17 06:22 Albumin 2.6 g/dl (3.4-5.0) L 09/06/17 06:22 CARDIAC ENZYMES Creatine Kinase 270 IU/L (39-308) 09/05/17 23:15 Troponin I 1.43 ng/ml (0.00-0.05) H* 09/06/17 06:22 Current Medications Generic Name Dose Route Start Last Admin Trade Name Freq PRN Reason Stop Dose Admin Sodium Chloride 1,000 mls @ 83 mls/hr 09/06/17 12:12 09/06/17 13:35 1/2 Normal Saline IV 09/07/17 00:03 83 mls/hr ASDIR ROSIE Administration CEFTRIAXONE 1 G/50 ML PREMIX 50 mls @ 100 mls/hr 09/06/17 17:00 Ceftriaxone 1 Gm-D5w Bag IVPB DAILY [facility] Insulin Aspart 1 vial 09/06/17 07:00 09/06/17 13:35 Novolog Vial Sliding Scale - SQ 2 unit ACHS ROSIE Administration Protocol Oseltamivir Phosphate 30 mg 09/06/17 10:45 09/06/17 14:55 Tamiflu - PO 09/11/17 10:44 30 mg BID [facility] Administration Home Medications Medication Instructions Recorded Cholecalciferol (Vitamin D3) 1,000 unit PO DAILY tablet 09/02/12 [Vitamin D3] Clopidogrel Bisulfate [Clopidogrel] 75 mg PO HS #90 tablet 01/10/16 Carvedilol 12.5 mg PO BID 06/11/17 Ferrous Sulfate [Feosol] 325 mg PO DAILY ud 07/12/17 Docusate Sodium [Colace -] 300 mg PO HS 07/14/17 Insulin Glargine,Hum.rec.anlog 15 units SQ HS 07/14/17 [Lantus Solostar PEN -] Lidocaine 5% Patch [Lidoderm -] 1 patch TP DAILY #7 patch 07/15/17 Nifedipine ER [Procardia XL -] 30 mg PO DAILY tab.er.24 07/22/17 Furosemide [Lasix -] 40 mg PO BID 07/23/17 Insulin Sliding Scale [Novolog 1 vial SQ TIDAC PRN 07/23/17 Vial Sliding Scale -] Simvastatin 40 mg PO HS 07/23/17 Pantoprazole Sodium [Protonix -] 40 mg PO DAILY #30 tablet.ec 07/25/17 Sucralfate [Carafate -] 1 gm PO BID #60 tablet 07/25/17 Tamsulosin HCl [Flomax -] 0.4 mg PO HS cap.er.24h 07/25/17 Polyethylene Glycol 3350 [Miralax 17 gm PO DAILY 09/03/17 (For Daily Use) -] Oseltamivir Phosphate [Tamiflu] 75 mg PO BID 09/05/17 PE: NAD, lying in bed with no difficulties Chest decreased BS BL Heart: S1s2 positive abdomen: soft, NT Ext: pulses are positive ASSESSMENT AND PLAN: Patient is a 71 yo M with anemia on procrit, CAD s/p CABG/stents, GERD, HLD, CKD - Stg 4, DM, Chronic back pain (s/p laminectomy and fusions) and chronic constipations, who presents with cough and shortness of breath, recently treated for the flu, found to be Septic # Acute Sepsis due to UTI on IV antibiotic continue on IV Rocephin # Influenza Positive continue Tamiflu # CHIARA on CKD on IVF, nephro consult # Anemia Normocytic EPO per Nephro dr Jin appreciated #NSTEMI with Troponin Elevation vs Demand Ischemia # Acute Diastolic Congestive Heart Failure Echo 07/12- Ef 58 % # DM II, FS, RAISS, Diabetic Diet Dvt Ppx: SCDS place in [employer]
[2017-09-06] MEDS ORDERED: ATORVASTATIN CA 40 MG TABLET (FP) PO SCH (22:00)
[2017-09-06] MEDS ORDERED: CLOPIDOGREL BISULFATE 75 MG TABLET (FP) PO SCH (22:00)
[2017-09-06] MEDS: ATORVASTATIN CA 20 MG TABLET (FP) PO SCH (22:07)
[2017-09-06] MEDS: CARVEDILOL 12.5 MG TABLET (FP) PO SCH (22:07)
[2017-09-06] MEDS: CEFTRIAXONE 1 G/50 ML PREMIX 50 ML IVPB SCH (22:08)
[2017-09-06] MEDS: SUCRALFATE 1 GM TABLET (FP) PO SCH (22:52)
[2017-09-06] MEDS: DOCUSATE SODIUM 100 MG CAPSULE (FP) PO SCH (22:52)
--- NOTE | 2017-09-07 04:56 | PN ---
Physical Exam: SUBJECTIVE: Patient seen and examined at bedside. breathing is better, denies any chest pain , palpitation . N/V/D/C, still NPO. No acute events over night , S/P 1 PRBC. H/H stable OBJECTIVE: Vital Signs Period Temp Pulse Resp BP Sys/Rodriguez Pulse Ox Last 24 Hr 97.5 F-98.3 F 53-86 18-22 132-164/54-80 95-99 GENERAL: AAOx3 in NAD HEAD: NC/AT EYES: EOMI, Conjuctive clear, sclera anicteric ENT : dry mucous membrane NECK:Supple, no JVD LUNGS: B/L base crackles , difuse coarse breath sounds. HEART: RRR, NSR, normal s1,s2 , soft murmur 1-2/6 LUSB, no R/G ABDOMEN: Soft , ND, NT, +BS 4 Q, no CVA Tenderness LOWER EXTREMITIES: no edema, +2 pulse , B/L scar medial side. NEUROLOGICAL: Cranial nerves II-XII intact. Normal speech. gait not observed. PSYCHIATRIC: Cooperative. Good eye contact. Appropriate mood and affect. SKIN: Warm, dry, Laboratory Results - last 24 hr 09/06/17 09/06/17 09/06/17 06:22 06:22 07:14 WBC 11.0 H RBC 3.15 L Hgb 8.8 L D Hct 26.7 L D MCV 84.9 MCH 28.0 MCHC 32.9 RDW 16.0 H Plt Count 183 MPV 7.5 Neutrophils % 89.4 H Lymphocytes % 4.8 L Monocytes % 5.6 Eosinophils % 0.0 Basophils % 0.2 Sodium 138 Potassium 4.4 Chloride 106 Carbon Dioxide 21 Anion Gap 11 BUN 142 H* Creatinine 6.1 H Creat Clearance w eGFR 9.14 POC Glucometer [phone] Random Glucose 246 H Calcium 7.1 L Phosphorus 5.3 H Magnesium 2.2 Total Bilirubin 0.5 D AST 18 ALT 41 Alkaline Phosphatase 118 H Troponin I 1.43 H* Total Protein 6.4 Albumin 2.6 L 09/06/17 13:25 WBC RBC Hgb Hct MCV MCH MCHC RDW Plt Count MPV Neutrophils % Lymphocytes % Monocytes % Eosinophils % Basophils % Sodium Potassium Chloride Carbon Dioxide Anion Gap BUN Creatinine Creat Clearance w eGFR POC Glucometer [phone] Random Glucose Calcium Phosphorus Magnesium Total Bilirubin AST ALT Alkaline Phosphatase Troponin I Total Protein Albumin Active Medications Generic Name Dose Route Start Last Admin Trade Name David PRN Reason Stop Dose Admin Atorvastatin Calcium 20 mg 09/06/17 22:00 09/06/17 22:07 Lipitor - PO 20 mg HS ROSIE Administration Carvedilol 12.5 mg 09/06/17 22:00 09/06/17 22:07 Coreg - PO 12.5 mg BID [facility] Administration Cholecalciferol 1,000 unit 09/07/17 10:00 Vitamin D3 - PO DAILY [facility] Citalopram Hydrobromide 20 mg 09/07/17 10:00 Celexa - PO DAILY [facility] Clopidogrel Bisulfate 75 mg 09/06/17 22:00 09/06/17 22:07 Plavix - PO 75 mg HS [facility] Administration Docusate Sodium 300 mg 09/06/17 22:00 09/06/17 22:52 Colace - PO 300 mg HS [facility] Administration Ferrous Sulfate 325 mg 09/07/17 10:00 Feosol - PO DAILY [facility] Gabapentin 100 mg 09/07/17 10:00 Neurontin - PO DAILY [facility] CEFTRIAXONE 1 G/50 ML PREMIX 50 mls @ 100 mls/hr 09/06/17 17:00 09/06/17 22: 08 Ceftriaxone 1 Gm-D5w Bag IVPB 100 mls/hr DAILY [facility] Administration Insulin Aspart 1 vial 09/06/17 07:00 09/06/17 21:57 Novolog Vial Sliding Scale - SQ Not Given ACHS [facility] Protocol Nifedipine 30 mg 09/07/17 10:00 Procardia Xl - PO DAILY [facility] Oseltamivir Phosphate 30 mg 09/06/17 10:45 09/06/17 22:07 Tamiflu - PO 09/11/17 10:44 30 mg BID [facility] Administration Pantoprazole Sodium 40 mg 09/07/17 10:00 Protonix - PO DAILY [facility] Polyethylene Glycol 17 gm 09/07/17 10:00 Miralax (For Daily Use) - PO DAILY [facility] Sucralfate 1 gm 09/06/17 22:00 09/06/17 22:52 Carafate - PO 1 gm BID [facility] Administration Tamsulosin HCl 0.4 mg 09/07/17 08:30 Flomax - PO DAILY@0830 [facility] CXR : mild vascular congestion, no infiltrate or pleural effusion , mild enlarge cardiac sellout Renal US : mild renal disease, right kidney atrophy, left kidney cyst 2.4 cm ASSESSMENT/PLAN: 71 yo M with anemia on procrit, CAD s/p CABG/stents, GERD, HLD, CKD- Stg 4, DM, Chronic back pain (s/p laminectomy and fusions) and chronic constipations, who presents with cough and shortness of breath, recently treated for the flu, found to be Septic #Sepsis likely 2/2 UTI vs flue * duron cx Blood ,urine and sputum * Vanco/zosyn in ED * continue with ceftriaxone 1 gm daily per ID * IV fluids with cautions due to DCHF (1/2 NS @ 83 cc/hr one bag ) * LA 1.2 #Flu B positive * S/P 2 days of tamiflue * continue renal dose 30 mg BID for 3 days * droplet precautions # Acute on chronic diastolic CHF * daily weight * I& O * cardiology on board * ECKo with EF 39.5 * Hold lasix for now till CHIARA improved # elevated troponin likely NSTEMI vs demand ischemia vs Renal failure * trop 1.52....1.29.....1.43 peaked * old ant Q w/ new ant TWI * cardiology on board * start ASA and statin #CHIARA on CKD stage 4 likely pre renal due to volume depletion # Urinary retension 2/2 BPH * [employer] 6.4 baseline 4 * Renal U/S. mild renal disease, right kidney atrophy, left kidney cyst 2.4 cm * nephrology on board * IV fluids 1/2 NS @ 83 cc/hr one bag * low sodium diabetic renal diet * Chen in place * Might need HD per nephro # Normocytic anemia likely 2/2 ESRD vs blood loss vs low oral intake * H/H 7.5/23 * S/p one PRBC transfusion , H/H 8.8 /26.7 * transfuse if hgb below 8 (pt has h/o CAD ) * monitor H/H * occult blood * hold plavix # DM * hold home meds * ISS * BGM TID * diabetic diet * * # H/O CAD S/p CABG * c/w ASA and statin , plavix 75 mg po qd with cautions # HTN * c/w home meds : Coreg 12.5 mg po daily , pradaxa 70 po daily * # HLD : * C/o statin 40 mg po daily # FEN * F: gentle hydration one bag of 1/2 NS @ 83 cc/hr * E: WNL monitor * Low sodium diabetic diet, renal diet * # Proph * DVT : SCDs , no chemical due to anemia * GI : c/w brotonix 40 mg daily home dose * # Dispo : * admit to tele Visit type - Emergency Visit Emergency Visit: Yes ED Registration Date: 09/05/17 Care time: The patient presented to the Emergency Department on the above date and was hospitalized for further evaluation of their emergent condition. - New Patient This patient is new to me today: No - Critical Care Critical Care patient: No - Discharge Referral Referred to [facility] Med P.C.: No
[2017-09-07] MEDS: INSULIN SLIDING SCALE (NOVOLOG) 1 VIAL SQ SCH ×4 (06:24→21:00)
[2017-09-07 06:47] LABS: BASO % 0.3 % (0-2.0); EOS % 0.6 % (0-4.5); HEMATOCRIT 26.9 % (35.4-49); LYMPH % 7.2 % (8-40); MCH 28.5 pg (25.7-33.7); MCHC 33.4 g/dl (32.0-35.9); MEAN CELL VOLUME 85.4 fl (80-96); MEAN PLT VOLUME 7.5 fl (7.5-11.1); MONO % 6.8 % (3.8-10.2); NEUT % 85.1 % (42.8-82.8); PLATELET COUNT 218 K/MM3 (134-434); RBC 3.16 M/mm3 (4.00-5.60); RDW 16.2 % (11.9-15.9); WHITE BLOOD COUNT 7.9 K/mm3 (4.0-10.0)
[2017-09-07 07:13] LABS: ALBUMIN 2.4 g/dl (3.4-5.0); ANION GAP 12 (8-16); CALCIUM 7.9 mg/dL (8.5-10.1); CHLORIDE 109 mmol/L (98-107); CO2 23 mmol/L (21-32); CREATININE 5.4 mg/dL (0.7-1.3); GLUCOSE,RANDOM 88 mg/dL (74-106); MAGNESIUM 2.4 mg/dL (1.8-2.4); PHOSPHOROUS 5.5 mg/dL (2.5-4.9); POTASSIUM 4.1 mmol/L (3.5-5.1); SGOT/AST 21 U/L (15-37); SGPT/ALT 36 U/L (12-78); SODIUM 144 mmol/L (136-145)
[2017-09-07 07:16] LABS: ALK PHOS 106 U/L (45-117); BILIRUBIN,TOTAL 0.5 mg/dL (0.2-1.0); TOT PROT 6.6 g/dl (6.4-8.2)
[2017-09-07 07:29] LABS: BLOOD UREA NITROGEN 129 mg/dL (7-18)
--- NOTE | 2017-09-07 08:01 | PN ---
Teaching Attending Note Name of Resident: Fred Davis ATTENDING PHYSICIAN STATEMENT I saw and evaluated the patient. I reviewed the resident's note and discussed the case with the resident. I agree with the resident's findings and plan as documented. SUBJECTIVE: Patient is feeling better with no acute distress. OBJECTIVE: Vital Signs Temperature 98.3 F 09/07/17 06:00 Pulse Rate 57 L 09/07/17 06:00 Respiratory Rate 18 09/07/17 06:00 Blood Pressure 165/55 09/07/17 06:00 O2 Sat by Pulse Oximetry (%) 98 09/06/17 21:00 CBCD WBC 7.9 K/mm3 (4.0-10.0) 09/07/17 06:30 RBC 3.16 M/mm3 (4.00-5.60) L 09/07/17 06:30 Hgb 9.0 GM/dL (11.7-16.9) L 09/07/17 06:30 Hct 26.9 % (35.4-49) L 09/07/17 06:30 MCV 85.4 fl (80-96) 09/07/17 06:30 MCHC 33.4 g/dl (32.0-35.9) 09/07/17 06:30 RDW 16.2 % (11.9-15.9) H 09/07/17 06:30 Plt Count 218 K/MM3 (134-434) 09/07/17 06:30 MPV 7.5 fl (7.5-11.1) 09/07/17 06:30 CMP Sodium 144 mmol/L (136-145) 09/07/17 06:30 Potassium 4.1 mmol/L (3.5-5.1) 09/07/17 06:30 Chloride 109 mmol/L (98-107) H 09/07/17 06:30 Carbon Dioxide 23 mmol/L (21-32) 09/07/17 06:30 Anion Gap 12 (8-16) 09/07/17 06:30 BUN 129 mg/dL (7-18) H* 09/07/17 06:30 Creatinine 5.4 mg/dL (0.7-1.3) H 09/07/17 06:30 Creat Clearance w eGFR 10.52 (>60) 09/07/17 06:30 Random Glucose 88 mg/dL (74-106) D 09/07/17 06:30 Calcium 7.9 mg/dL (8.5-10.1) L 09/07/17 06:30 Total Bilirubin 0.5 mg/dL (0.2-1.0) 09/07/17 06:30 AST 21 U/L (15-37) 09/07/17 06:30 ALT 36 U/L (12-78) 09/07/17 06:30 Alkaline Phosphatase 106 U/L (45-117) 09/07/17 06:30 Total Protein 6.6 g/dl (6.4-8.2) 09/07/17 06:30 Albumin 2.4 g/dl (3.4-5.0) L 09/07/17 06:30 CARDIAC ENZYMES Creatine Kinase 270 IU/L (39-308) 09/05/17 23:15 Troponin I 1.43 ng/ml (0.00-0.05) H* 09/06/17 06:22 Current Medications Generic Name Dose Route Start Last Admin Trade Name Andrzejq PRN Reason Stop Dose Admin Atorvastatin Calcium 20 mg 09/06/17 22:00 09/06/17 22:07 Lipitor - PO 20 mg HS ROSIE Administration Carvedilol 12.5 mg 09/06/17 22:00 09/06/17 22:07 Coreg - PO 12.5 mg BID ROSIE Administration Cholecalciferol 1,000 unit 09/07/17 10:00 Vitamin D3 - PO DAILY [facility] Citalopram Hydrobromide 20 mg 09/07/17 10:00 Celexa - PO DAILY [facility] Clopidogrel Bisulfate 75 mg 09/07/17 10:00 Plavix - PO DAILY [facility] Docusate Sodium 300 mg 09/06/17 22:00 09/06/17 22:52 Colace - PO 300 mg HS ROSIE Administration Ferrous Sulfate 325 mg 09/07/17 10:00 Feosol - PO DAILY [facility] Gabapentin 100 mg 09/07/17 10:00 Neurontin - PO DAILY [facility] CEFTRIAXONE 1 G/50 ML PREMIX 50 mls @ 100 mls/hr 09/06/17 17:00 09/06/17 22: 08 Ceftriaxone 1 Gm-D5w Bag IVPB 100 mls/hr DAILY ROSIE Administration Insulin Aspart 1 vial 09/06/17 07:00 09/07/17 06:24 Novolog Vial Sliding Scale - SQ Not Given ACHS [facility] Protocol Nifedipine 30 mg 09/07/17 10:00 Procardia Xl - PO DAILY [facility] Oseltamivir Phosphate 30 mg 09/06/17 10:45 09/06/17 22:07 Tamiflu - PO 09/11/17 10:44 30 mg BID ROSIE Administration Pantoprazole Sodium 40 mg 09/07/17 10:00 Protonix - PO DAILY [facility] Polyethylene Glycol 17 gm 09/07/17 10:00 Miralax (For Daily Use) - PO DAILY [facility] Sucralfate 1 gm 09/06/17 22:00 09/06/17 22:52 Carafate - PO 1 gm BID [facility] Administration Tamsulosin HCl 0.4 mg 09/07/17 08:30 Flomax - PO DAILY@0830 [facility] Home Medications Medication Instructions Recorded Cholecalciferol (Vitamin D3) 1,000 unit PO DAILY tablet 09/02/12 [Vitamin D3] Clopidogrel Bisulfate [Clopidogrel] 75 mg PO HS #90 tablet 01/10/16 Carvedilol 12.5 mg PO BID 06/11/17 Ferrous Sulfate [Feosol] 325 mg PO DAILY ud 07/12/17 Docusate Sodium [Colace -] 300 mg PO HS 07/14/17 Insulin Glargine,Hum.rec.anlog 15 units SQ HS 07/14/17 [Lantus Solostar PEN -] Lidocaine 5% Patch [Lidoderm -] 1 patch TP DAILY #7 patch 07/15/17 Nifedipine ER [Procardia XL -] 30 mg PO DAILY tab.er.24 07/22/17 Furosemide [Lasix -] 40 mg PO BID 07/23/17 Insulin Sliding Scale [Novolog 1 vial SQ TIDAC PRN 07/23/17 Vial Sliding Scale -] Simvastatin 40 mg PO HS 07/23/17 Pantoprazole Sodium [Protonix -] 40 mg PO DAILY #30 tablet.ec 07/25/17 Sucralfate [Carafate -] 1 gm PO BID #60 tablet 07/25/17 Tamsulosin HCl [Flomax -] 0.4 mg PO HS cap.er.24h 07/25/17 Polyethylene Glycol 3350 [Miralax 17 gm PO DAILY 09/03/17 (For Daily Use) -] Oseltamivir Phosphate [Tamiflu] 75 mg PO BID 09/05/17 PE: per resident's note ASSESSMENT AND PLAN: Patient is a 71 yo M with anemia on procrit, CAD s/p CABG/stents, GERD, HLD, CKD - Stg 4, DM, Chronic back pain (s/p laminectomy and fusions) and chronic constipations, who presents with cough and shortness of breath, recently treated for the flu, found to be Septic. # Influenza B Positive continue Tamiflu renally dosed, ID on the case discussed with. #s/p Sepsis due to UTI continue IV antibiotic, Rocephin. #Acute UTi on Rocephin continue # CHIARA on CKD on IVF improving , nephro consult appreciated # Normocytic Anemia ; further management per Nephro dr Jin. #NSTEMI with Troponin Elevation vs Demand Ischemia # Acute Diastolic Congestive Heart Failure Echo 07/12- Ef 58 % # T2DM contine with sliding scale with coverage, Diabetic Diet Dvt Ppx: SCDS
[2017-09-07] MEDS: TAMSULOSIN HCL 0.4 MG CAP.ER.24H (FP) PO SCH (08:16)
[2017-09-07] MEDS ORDERED: PT OWN MED DRAWER 7, Y5N ONE ×2 (08:47→09:29)
[2017-09-07] MEDS: CEFTRIAXONE 1 G/50 ML PREMIX 50 ML IVPB SCH (09:32)
[2017-09-07] MEDS: FERROUS SO4 325 MG TABLET (FP) PO SCH (09:32)
[2017-09-07] MEDS: CHOLECALCIFEROL (VITAMIN D3) 1,000 UNIT TABLET (FP) PO SCH (09:32)
[2017-09-07] MEDS: PANTOPRAZOLE 40 MG TABLET (FP) PO SCH (09:32)
[2017-09-07] MEDS: CITALOPRAM HYDROBROMIDE 20 MG TABLET (FP) PO SCH (09:32)
[2017-09-07] MEDS: GABAPENTIN 100 MG CAPSULE (FP) PO SCH (09:33)
[2017-09-07] MEDS: CLOPIDOGREL BISULFATE 75 MG TABLET (FP) PO SCH (09:33)
[2017-09-07] MEDS: CARVEDILOL 12.5 MG TABLET (FP) PO SCH ×2 (09:33→21:00)
[2017-09-07] MEDS: NIFEdipine E.R. 30 MG TABLET (FP) PO SCH (09:33)
[2017-09-07] MEDS: POLYETHYLENE GLYCOL 3350 119 GM BTL PO SCH (09:34)
[2017-09-07] MEDS: OSELTAMIVIR PHOSPHATE 30 MG CAPSULE PO SCH ×2 (09:34→21:38)
[2017-09-07] MEDS: SUCRALFATE 1 GM TABLET (FP) PO SCH ×2 (09:38→20:59)
[2017-09-07] MEDS ORDERED: HEMOQUE TEST 1 EACH EACH ONE (11:15)
[2017-09-07] MEDS ORDERED: INSULIN (NOVOLOG) ASPART 100 UNITS/ML 10ML VIAL ONE (11:44)
--- NOTE | 2017-09-07 12:02 | PN ---
Progress Note (short form) - Note Progress Note: doing well alert nofever ate breakfast Vital Signs Period Temp Pulse Resp BP Sys/Rodriguez Pulse Ox Last 24 Hr 97.5 F-98.3 F 56-60 18-22 140-172/54-70 95-99 cor-rrr lungs clear abd soft,nt witt ext no edema CBC, BMP 09/07/17 06:30 09/07/17 06:30 Microbiology 09/05/17 18:40 Urine - Urine - Catheterized Urine Culture - Preliminary Lactose Fermenting Neg Bacilli Group D Strep Or Entero Coccus 09/05/17 18:00 Blood - Peripheral Venous Blood Culture - Preliminary NO GROWTH OBTAINED AFTER 24 HOURS, INCUBATION TO CONTINUE FOR 4 DAYS. 09/05/17 18:00 Blood - Peripheral Venous Blood Culture - Preliminary NO GROWTH OBTAINED AFTER 24 HOURS, INCUBATION TO CONTINUE FOR 4 DAYS. Current Medications Atorvastatin Calcium (Lipitor -) 20 mg PO HS [facility] Last Admin: 09/06/17 22:07 Dose: 20 mg Carvedilol (Coreg -) 12.5 mg PO BID [facility] Last Admin: 09/07/17 09:33 Dose: 12.5 mg Cholecalciferol (Vitamin D3 -) 1,000 unit PO DAILY [facility] Last Admin: 09/07/17 09:32 Dose: 1,000 unit Citalopram Hydrobromide (Celexa -) 20 mg PO DAILY [facility] Last Admin: 09/07/17 09:32 Dose: 20 mg Clopidogrel Bisulfate (Plavix -) 75 mg PO DAILY [facility] Last Admin: 09/07/17 09:33 Dose: 75 mg Docusate Sodium (Colace -) 300 mg PO [facility] Last Admin: 09/06/17 22:52 Dose: 300 mg Ferrous Sulfate (Feosol -) 325 mg PO DAILY [facility] Last Admin: 09/07/17 09:32 Dose: 325 mg Gabapentin (Neurontin -) 100 mg PO DAILY [facility] Last Admin: 09/07/17 09:33 Dose: 100 mg CEFTRIAXONE 1 G/50 ML PREMIX (Ceftriaxone 1 Gm-D5w Bag) 50 mls @ 100 mls/hr IVPB DAILY [facility] Last Admin: 09/07/17 09:32 Dose: 100 mls/hr Insulin Aspart (Novolog Vial Sliding Scale -) 1 vial SQ ACHS [facility] PRN Reason: Protocol Last Admin: 09/07/17 06:24 Dose: Not Given Nifedipine (Procardia Xl -) 30 mg PO DAILY [facility] Last Admin: 09/07/17 09:33 Dose: 30 mg Oseltamivir Phosphate (Tamiflu -) 30 mg PO BID [facility] Stop: 09/11/17 10:44 Last Admin: 09/07/17 09:34 Dose: 30 mg Pantoprazole Sodium (Protonix -) 40 mg PO DAILY [facility] Last Admin: 09/07/17 09:32 Dose: 40 mg Polyethylene Glycol (Miralax (For Daily Use) -) 17 gm PO DAILY [facility] Last Admin: 09/07/17 09:34 Dose: 17 gm Sucralfate (Carafate -) 1 gm PO BID [facility] Last Admin: 09/07/17 09:38 Dose: 1 gm Tamsulosin HCl (Flomax -) 0.4 mg PO DAILY@0830 [facility] Last Admin: 09/07/17 08:16 Dose: 0.4 mg a/p influenza B- doing well, lethargy resolved, continue tamiflu acute on chronic renal failure with urinary retention and UTI +troponins anemia continue tamiflu and rocephin, f/u cultures Problem List - Problems (1) Influenza B Code(s): J10.1 - FLU DUE TO OTH IDENT INFLUENZA VIRUS W OTH RESP MANIFEST (2) UTI (urinary tract infection) Code(s): N39.0 - URINARY TRACT INFECTION, SITE NOT SPECIFIED Qualifiers: Urinary tract infection type: site unspecified Hematuria presence: without hematuria Qualified Code(s): N39.0 - Urinary tract infection, site not specified (3) Acute on chronic renal failure Code(s): N17.9 - ACUTE KIDNEY FAILURE, UNSPECIFIED; N18.9 - CHRONIC KIDNEY DISEASE, UNSPECIFIED Qualifiers: Chronic kidney disease stage: stage 4 (severe) (4) Anemia Code(s): D64.9 - ANEMIA, UNSPECIFIED Qualifiers: Anemia type: due to chronic kidney disease Chronic kidney disease stage: stage 4 (severe) Qualified Code(s): N18.4 - Chronic kidney disease, stage 4 ( severe); D63.1 - Anemia in chronic kidney disease; D63.1 - Anemia in chronic kidney disease (5) Elevated troponin I level Code(s): R74.8 - ABNORMAL LEVELS OF OTHER SERUM ENZYMES
--- NOTE | 2017-09-07 13:27 | PN ---
Progress Note, Physician History of Present Illness: Cough resolving, denies dyspnea. - Current Medication List Current Medications: Active Medications Atorvastatin Calcium (Lipitor -) 20 mg PO HS [facility] Last Admin: 09/06/17 22:07 Dose: 20 mg Carvedilol (Coreg -) 12.5 mg PO BID [facility] Last Admin: 09/07/17 09:33 Dose: 12.5 mg Cholecalciferol (Vitamin D3 -) 1,000 unit PO DAILY [facility] Last Admin: 09/07/17 09:32 Dose: 1,000 unit Citalopram Hydrobromide (Celexa -) 20 mg PO DAILY [facility] Last Admin: 09/07/17 09:32 Dose: 20 mg Clopidogrel Bisulfate (Plavix -) 75 mg PO DAILY [facility] Last Admin: 09/07/17 09:33 Dose: 75 mg Docusate Sodium (Colace -) 300 mg PO HS [facility] Last Admin: 09/06/17 22:52 Dose: 300 mg Ferrous Sulfate (Feosol -) 325 mg PO DAILY [facility] Last Admin: 09/07/17 09:32 Dose: 325 mg Gabapentin (Neurontin -) 100 mg PO DAILY [facility] Last Admin: 09/07/17 09:33 Dose: 100 mg CEFTRIAXONE 1 G/50 ML PREMIX (Ceftriaxone 1 Gm-D5w Bag) 50 mls @ 100 mls/hr IVPB DAILY [facility] Last Admin: 09/07/17 09:32 Dose: 100 mls/hr Insulin Aspart (Novolog Vial Sliding Scale -) 1 vial SQ ACHS [facility] PRN Reason: Protocol Last Admin: 09/07/17 12:28 Dose: 2 unit Nifedipine (Procardia Xl -) 30 mg PO DAILY [facility] Last Admin: 09/07/17 09:33 Dose: 30 mg Oseltamivir Phosphate (Tamiflu -) 30 mg PO BID [facility] Stop: 09/11/17 10:44 Last Admin: 09/07/17 09:34 Dose: 30 mg Pantoprazole Sodium (Protonix -) 40 mg PO DAILY [facility] Last Admin: 09/07/17 09:32 Dose: 40 mg Polyethylene Glycol (Miralax (For Daily Use) -) 17 gm PO DAILY [facility] Last Admin: 09/07/17 09:34 Dose: 17 gm Sucralfate (Carafate -) 1 gm PO BID [facility] Last Admin: 09/07/17 09:38 Dose: 1 gm Tamsulosin HCl (Flomax -) 0.4 mg PO DAILY@0830 [facility] Last Admin: 09/07/17 08:16 Dose: 0.4 mg - Objective Vital Signs: Vital Signs Temperature 97.8 F 09/07/17 08:02 Pulse Rate 60 09/07/17 12:41 Respiratory Rate 18 09/07/17 12:41 Blood Pressure 168/68 09/07/17 12:41 O2 Sat by Pulse Oximetry (%) 98 09/07/17 09:00 Constitutional: Yes: No Distress, Thin Neck: Yes: Supple Cardiovascular: Yes: Regular Rate and Rhythm Respiratory: Yes: Regular, Diminished, On Nasal O2 Gastrointestinal: Yes: Normal Bowel Sounds, Soft Edema: No Labs: CBC, BMP 09/07/17 06:30 09/07/17 06:30 INR, PTT INR 1.39 (0.82-1.09) H 09/05/17 18:00 - ....Imaging Chest X-ray: Report Reviewed (NAD) Problem List - Problems (1) Diastolic dysfunction Code(s): I51.9 - HEART DISEASE, UNSPECIFIED (2) Influenza Code(s): J11.1 - FLU DUE TO UNIDENTIFIED INFLUENZA VIRUS W OTH RESP MANIFEST (3) UTI (urinary tract infection) Code(s): N39.0 - URINARY TRACT INFECTION, SITE NOT SPECIFIED Qualifiers: Urinary tract infection type: site unspecified Hematuria presence: without hematuria Qualified Code(s): N39.0 - Urinary tract infection, site not specified (4) Anemia Code(s): D64.9 - ANEMIA, UNSPECIFIED Qualifiers: Anemia type: due to chronic kidney disease Chronic kidney disease stage: stage 4 (severe) Qualified Code(s): N18.4 - Chronic kidney disease, stage 4 ( severe); D63.1 - Anemia in chronic kidney disease; D63.1 - Anemia in chronic kidney disease (5) Troponin level elevated Code(s): R74.8 - ABNORMAL LEVELS OF OTHER SERUM ENZYMES (6) CAD (coronary artery disease) Code(s): I25.10 - ATHSCL HEART DISEASE OF [place] CORONARY ARTERY W/O ANG PCTRS Qualifiers: Coronary Disease-Associated Artery/Lesion type: [place] artery [place] vs. transplanted heart: [place] heart Associated angina: without angina Qualified Code(s): I25.10 - Atherosclerotic heart disease of [place] coronary artery without angina pectoris (7) CKD (chronic kidney disease) Code(s): N18.9 - CHRONIC KIDNEY DISEASE, UNSPECIFIED Qualifiers: Chronic kidney disease stage: stage 4 (severe) Qualified Code(s): N18.4 - Chronic kidney disease, stage 4 (severe) (8) Diabetes Code(s): E11.9 - TYPE 2 DIABETES MELLITUS WITHOUT COMPLICATIONS Qualifiers: 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 type: type 2 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 complication status: with kidney complications 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 complication detail: with nephropathy 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 chcf insulin use: unspecified watermaster insulin use status Qualified Code(s): E11.21 - Type 2 diabetes mellitus with diabetic nephropathy (9) HTN (hypertension) Code(s): I10 - ESSENTIAL (PRIMARY) HYPERTENSION Qualifiers: Hypertension type: essential hypertension Qualified Code(s): I10 - Essential (primary) hypertension (10) Hx of CABG Code(s): Z95.1 - PRESENCE OF AORTOCORONARY BYPASS GRAFT (11) Hypercholesterolemia Code(s): E78.00 - PURE HYPERCHOLESTEROLEMIA, UNSPECIFIED (12) PAD (peripheral artery disease) Code(s): I73.9 - PERIPHERAL VASCULAR DISEASE, UNSPECIFIED (13) Demand ischemia Code(s): I24.8 - OTHER FORMS OF ACUTE ISCHEMIC HEART DISEASE (14) Acute on chronic renal failure Code(s): N17.9 - ACUTE KIDNEY FAILURE, UNSPECIFIED; N18.9 - CHRONIC KIDNEY DISEASE, UNSPECIFIED Qualifiers: Chronic kidney disease stage: stage 4 (severe) Assessment/Plan 07/11/2017 Low normal LV fxn, abnl LV compliance, mod MR, mod-severe TR, severe pulm HTN, mild MT 1. Sepsis suspect source, Influenza positive 2. ASA-associated gastritis 3. CAD post CABG, angina pectoris with evidence of demand ischemic injury, related to above 4. Diastolic LV dysfunction with class 0 NYHA classification LV failure 5. Hypertension/HCVD 6. 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 7. Hypercholesterolemia 8. PAD post peripheral bypass surgery 9. Acute on CKD improving 10. Anemia of chronic disease with h/o transfusion 11. BPH, urinary retention PLAN: 1. Optimize medical therapy considering that he is asymptomatic with downtrending Troponin I, would not pursue any further cardiac intervention 2. Abx per C&S, judicious IVF, d/c diuretics and monitor renal recovery and electrolytes, Tamiflu 3. Continue Carvedilol 12.5 bid 4. Continue Procardia XL 30 qd 5. Continue Plavix 75 qd with caution 6. Hold Lasix 40 bid until renal function recovers and stabilizes 7. Continue Atorvastatin 20 qhs 8. Transfuse to maintain Hg equal or > 8.0, GI protection with PPI and carafate 9. Trops have peaked 10. Encourage oral intake, f/u with Dr. Ángel Murguia at [facility] upn d/c
--- NOTE | 2017-09-07 15:49 | PN ---
Progress Note, Physician History of Present Illness: Pt seen and examined at bedside. He is more awake and alert than he was yesterday. He does not remember much of yesterday. - Current Medication List Current Medications: Active Medications Atorvastatin Calcium (Lipitor -) 20 mg PO HS [facility] Last Admin: 09/06/17 22:07 Dose: 20 mg Carvedilol (Coreg -) 12.5 mg PO BID [facility] Last Admin: 09/07/17 09:33 Dose: 12.5 mg Cholecalciferol (Vitamin D3 -) 1,000 unit PO DAILY [facility] Last Admin: 09/07/17 09:32 Dose: 1,000 unit Citalopram Hydrobromide (Celexa -) 20 mg PO DAILY [facility] Last Admin: 09/07/17 09:32 Dose: 20 mg Clopidogrel Bisulfate (Plavix -) 75 mg PO DAILY [facility] Last Admin: 09/07/17 09:33 Dose: 75 mg Docusate Sodium (Colace -) 300 mg PO [facility] Last Admin: 09/06/17 22:52 Dose: 300 mg Ferrous Sulfate (Feosol -) 325 mg PO DAILY [facility] Last Admin: 09/07/17 09:32 Dose: 325 mg Gabapentin (Neurontin -) 100 mg PO DAILY [facility] Last Admin: 09/07/17 09:33 Dose: 100 mg CEFTRIAXONE 1 G/50 ML PREMIX (Ceftriaxone 1 Gm-D5w Bag) 50 mls @ 100 mls/hr IVPB DAILY [facility] Last Admin: 09/07/17 09:32 Dose: 100 mls/hr Insulin Aspart (Novolog Vial Sliding Scale -) 1 vial SQ ACHS [facility] PRN Reason: Protocol Last Admin: 09/07/17 12:28 Dose: 2 unit Nifedipine (Procardia Xl -) 30 mg PO DAILY [facility] Last Admin: 09/07/17 09:33 Dose: 30 mg Oseltamivir Phosphate (Tamiflu -) 30 mg PO BID [facility] Stop: 09/11/17 10:44 Last Admin: 09/07/17 09:34 Dose: 30 mg Pantoprazole Sodium (Protonix -) 40 mg PO DAILY [facility] Last Admin: 09/07/17 09:32 Dose: 40 mg Polyethylene Glycol (Miralax (For Daily Use) -) 17 gm PO DAILY [facility] Last Admin: 09/07/17 09:34 Dose: 17 gm Sucralfate (Carafate -) 1 gm PO BID [facility] Last Admin: 09/07/17 09:38 Dose: 1 gm Tamsulosin HCl (Flomax -) 0.4 mg PO DAILY@0830 [facility] Last Admin: 09/07/17 08:16 Dose: 0.4 mg - Objective Vital Signs: Vital Signs Temperature 97.8 F 09/07/17 08:02 Pulse Rate 60 09/07/17 12:41 Respiratory Rate 18 09/07/17 12:41 Blood Pressure 168/68 09/07/17 12:41 O2 Sat by Pulse Oximetry (%) 98 09/07/17 09:00 Constitutional: Yes: Calm Eyes: Yes: Conjunctiva Clear HENT: Yes: Atraumatic Cardiovascular: Yes: S1, S2 Respiratory: Yes: CTA Bilaterally Gastrointestinal: Yes: Normal Bowel Sounds, Soft Genitourinary: Yes: Chen Present Musculoskeletal: Yes: Muscle Weakness Edema: LLE: Trace, RLE: Trace Neurological: Yes: Confusion Labs: CBC, BMP 09/07/17 06:30 09/07/17 06:30 INR, PTT INR 1.39 (0.82-1.09) H 09/05/17 18:00 - ....Imaging Chest X-ray: Report Reviewed Problem List - Problems (1) Influenza Code(s): J11.1 - FLU DUE TO UNIDENTIFIED INFLUENZA VIRUS W OTH RESP MANIFEST (2) UTI (urinary tract infection) Code(s): N39.0 - URINARY TRACT INFECTION, SITE NOT SPECIFIED Qualifiers: Urinary tract infection type: site unspecified Hematuria presence: without hematuria Qualified Code(s): N39.0 - Urinary tract infection, site not specified (3) CAD (coronary artery disease) Code(s): I25.10 - ATHSCL HEART DISEASE OF [place] CORONARY ARTERY W/O ANG PCTRS Qualifiers: Coronary Disease-Associated Artery/Lesion type: [place] artery [place] vs. transplanted heart: [place] heart Associated angina: without angina Qualified Code(s): I25.10 - Atherosclerotic heart disease of [place] coronary artery without angina pectoris (4) CKD (chronic kidney disease) Code(s): N18.9 - CHRONIC KIDNEY DISEASE, UNSPECIFIED Qualifiers: Chronic kidney disease stage: stage 4 (severe) Qualified Code(s): N18.4 - Chronic kidney disease, stage 4 (severe) (5) Diabetes Code(s): E11.9 - TYPE 2 DIABETES MELLITUS WITHOUT COMPLICATIONS Qualifiers: 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 type: type 2 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 complication status: with kidney complications 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 complication detail: with nephropathy 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 shelter insulin use: unspecified shelter insulin use status Qualified Code(s): E11.21 - Type 2 diabetes mellitus with diabetic nephropathy Assessment/Plan Current Medications Generic Name Dose Route Start Last Admin Trade Name Freq PRN Reason Stop Dose Admin Atorvastatin Calcium 20 mg 09/06/17 22:00 09/06/17 22:07 Lipitor - PO 20 mg HS [facility] Administration Carvedilol 12.5 mg 09/06/17 22:00 09/07/17 09:33 Coreg - PO 12.5 mg BID [facility] Administration Cholecalciferol 1,000 unit 09/07/17 10:00 09/07/17 09:32 Vitamin D3 - PO 1,000 unit DAILY [facility] Administration Citalopram Hydrobromide 20 mg 09/07/17 10:00 09/07/17 09:32 Celexa - PO 20 mg DAILY [facility] Administration Clopidogrel Bisulfate 75 mg 09/07/17 10:00 09/07/17 09:33 Plavix - PO 75 mg DAILY [facility] Administration Docusate Sodium 300 mg 09/06/17 22:00 09/06/17 22:52 Colace - PO 300 mg HS [facility] Administration Ferrous Sulfate 325 mg 09/07/17 10:00 09/07/17 09:32 Feosol - PO 325 mg DAILY [facility] Administration Gabapentin 100 mg 09/07/17 10:00 09/07/17 09:33 Neurontin - PO 100 mg DAILY [facility] Administration CEFTRIAXONE 1 G/50 ML PREMIX 50 mls @ 100 mls/hr 09/06/17 17:00 09/07/17 09: 32 Ceftriaxone 1 Gm-D5w Bag IVPB 100 mls/hr DAILY [facility] Administration Insulin Aspart 1 vial 09/06/17 07:00 09/07/17 12:28 Novolog Vial Sliding Scale - SQ 2 unit ACHS [facility] Administration Protocol Nifedipine 30 mg 09/07/17 10:00 09/07/17 09:33 Procardia Xl - PO 30 mg DAILY [facility] Administration Oseltamivir Phosphate 30 mg 09/06/17 10:45 09/07/17 09:34 Tamiflu - PO 09/11/17 10:44 30 mg BID [facility] Administration Pantoprazole Sodium 40 mg 09/07/17 10:00 09/07/17 09:32 Protonix - PO 40 mg DAILY [facility] Administration Polyethylene Glycol 17 gm 09/07/17 10:00 09/07/17 09:34 Miralax (For Daily Use) - PO 17 gm DAILY [facility] Administration Sucralfate 1 gm 09/06/17 22:00 09/07/17 09:38 Carafate - PO 1 gm BID [facility] Administration Tamsulosin HCl 0.4 mg 09/07/17 08:30 09/07/17 08:16 Flomax - PO 0.4 mg DAILY@0830 [facility] Administration Impression 1. CKD 2. anemia 3. HTN 4. Chol 5. DM 6. BPH 7. CAD 8. urinary retention 9. GI bleed 10. positive for Flu 11. UTI 12. CHIARA Plan - restart fluids - repeat labs in am - renal function is improving, will continue to monitor - lasix on hold - cont abx - volume status is improving - cardio input appreciated - likely chiara on CKD from dehydration and pre-renal disease - will follow
[2017-09-07] MEDS ORDERED: SODIUM CHLORIDE 0.45% 1,000 ML IV SCH (16:00)
[2017-09-07] MEDS: DOCUSATE SODIUM 100 MG CAPSULE (FP) PO SCH (20:59)
[2017-09-07] MEDS: ATORVASTATIN CA 20 MG TABLET (FP) PO SCH (21:00)
[2017-09-08 06:15] LABS: BASO % 0.2 % (0-2.0); EOS % 1.1 % (0-4.5); HEMATOCRIT 27.4 % (35.4-49); HEMOGLOBIN 9.3 GM/dL (11.7-16.9); LYMPH % 6.4 % (8-40); MCH 28.6 pg (25.7-33.7); MCHC 33.7 g/dl (32.0-35.9); MEAN CELL VOLUME 84.9 fl (80-96); MEAN PLT VOLUME 7.3 fl (7.5-11.1); MONO % 7.4 % (3.8-10.2); NEUT % 84.9 % (42.8-82.8); PLATELET COUNT 237 K/MM3 (134-434); RBC 3.23 M/mm3 (4.00-5.60); RDW 16.4 % (11.9-15.9); WHITE BLOOD COUNT 8.1 K/mm3 (4.0-10.0)
[2017-09-08 06:50] LABS: ANION GAP 10 (8-16); CALCIUM 7.4 mg/dL (8.5-10.1); CHLORIDE 106 mmol/L (98-107); CO2 26 mmol/L (21-32); CREATININE 4.7 mg/dL (0.7-1.3); GLUCOSE,RANDOM 272 mg/dL (74-106); POTASSIUM 4.1 mmol/L (3.5-5.1); SODIUM 142 mmol/L (136-145)
--- NOTE | 2017-09-08 07:01 | PN ---
Progress Note (short form) - Note Progress Note: Chief Complaint: Events noted, notes reviewed, denies any chest pain or dyspnea , cough improved History of Present Illness: Seen and examined on telemetry. Events noted, notes reviewed, denies any chest pain or dyspnea, cough improved Echocardiography dated 07/11/2017 revealed Low normal LV function, abnormal LV compliance, moderate MR, moderate-severe TR, severe pulmonary HTN Medications: Current Medications Atorvastatin Calcium (Lipitor -) 20 mg PO HS [facility] Last Admin: 09/07/17 21:00 Dose: 20 mg Carvedilol (Coreg -) 12.5 mg PO BID [facility] Last Admin: 09/07/17 21:00 Dose: 12.5 mg Cholecalciferol (Vitamin D3 -) 1,000 unit PO DAILY [facility] Last Admin: 09/07/17 09:32 Dose: 1,000 unit Citalopram Hydrobromide (Celexa -) 20 mg PO DAILY [facility] Last Admin: 09/07/17 09:32 Dose: 20 mg Clopidogrel Bisulfate (Plavix -) 75 mg PO DAILY [facility] Last Admin: 09/07/17 09:33 Dose: 75 mg Docusate Sodium (Colace -) 300 mg PO HS [facility] Last Admin: 09/07/17 20:59 Dose: 300 mg Ferrous Sulfate (Feosol -) 325 mg PO DAILY [facility] Last Admin: 09/07/17 09:32 Dose: 325 mg Gabapentin (Neurontin -) 100 mg PO DAILY [facility] Last Admin: 09/07/17 09:33 Dose: 100 mg CEFTRIAXONE 1 G/50 ML PREMIX (Ceftriaxone 1 Gm-D5w Bag) 50 mls @ 100 mls/hr IVPB DAILY [facility] Last Admin: 09/07/17 09:32 Dose: 100 mls/hr Sodium Chloride (1/2 Normal Saline) 1,000 mls @ 50 mls/hr IV ASDIR [facility] Stop: 09/08/17 15:49 Last Admin: 09/07/17 16:11 Dose: 50 mls/hr Insulin Aspart (Novolog Vial Sliding Scale -) 1 vial SQ ACHS [facility] PRN Reason: Protocol Last Admin: 09/07/17 21:00 Dose: 4 unit Nifedipine (Procardia Xl -) 30 mg PO DAILY [facility] Last Admin: 09/07/17 09:33 Dose: 30 mg Oseltamivir Phosphate (Tamiflu -) 30 mg PO BID [facility] Stop: 09/11/17 10:44 Last Admin: 09/07/17 21:38 Dose: 30 mg Pantoprazole Sodium (Protonix -) 40 mg PO DAILY [facility] Last Admin: 09/07/17 09:32 Dose: 40 mg Polyethylene Glycol (Miralax (For Daily Use) -) 17 gm PO DAILY [facility] Last Admin: 09/07/17 09:34 Dose: 17 gm Sucralfate (Carafate -) 1 gm PO BID [facility] Last Admin: 09/07/17 20:59 Dose: 1 gm Tamsulosin HCl (Flomax -) 0.4 mg PO DAILY@0830 [facility] Last Admin: 09/07/17 08:16 Dose: 0.4 mg Review of Systems Constitutional: Denies: Chills or Fever Cardiovascular: Denies: chest pain, shortness of breath, palpitations Respiratory: Reports: cough Gastrointestinal: Denies: Nausea, Vomiting, Diarrhea, Constipation, abdominal pain Neurology: No seizures or syncope Vital Signs: Last Vital Signs Temp Pulse Resp BP Pulse Ox 98.0 F 62 20 157/61 99 09/08/17 06:04 09/07/17 22:41 09/08/17 06:04 09/08/17 06:04 09/07/17 21:00 Intake & Output 09/05/17 09/06/17 09/07/17 09/08/17 23:59 23:59 23:59 23:59 Intake Total 1500 50 3100 1850 Output Total 300 3700 1900 900 Balance 1200 -3650 1200 950 Weight 176 lb 143 lb 6.4 oz 138 lb 1.6 oz 138 lb 1.6 oz Constitutional: No Distress, Calm Neck: Supple Respiratory: Diminished Breath Sounds at the Bases Bilaterally Cardiovascular: S1 S2 Regular Rate and Rhythm Grade 1-2/6 SM Gastrointestinal: Soft Benign Normal Bowel Sounds Ext: No Edema Labs: CBC, BMP 09/08/17 05:35 09/08/17 05:35 ABG Results ABG pH 7.36 (7.35-7.45) 09/05/17 18:55 ABG pCO2 at Pt Temp 31.8 mmHg (35-45) L 09/05/17 18:55 ABG pO2 at Pt Temp 52.7 mmHg (70-100) L 09/05/17 18:55 ABG HCO3 17.6 meq/L (22-26) L 09/05/17 18:55 ABG O2 Sat (Measured) 84.5 % (90-98.9) L 09/05/17 18:55 ABG O2 Content 8.9 % vol (15-22) L* 09/05/17 18:55 ABG Base Excess -6.6 meq/l (-2-2) L 09/05/17 18:55 Assessment/Plan ASSESSMENT: 1. Sepsis syndrome, suspect source 2. Influenza B 3. CAD post CABG, angina pectoris with evidence of demand ischemic injury, related to above 4. Systolic/diastolic LV dysfunction with class 0 NYHA classification LV failure , compensated/euvolemic 5. Moderate MR 6. Moderate to severe TR with severe pulmonary HTN 7. Hypertension/HCVD 8. 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 9. Hypercholesterolemia 10. PAD post peripheral bypass surgery 11. Acute on CKD improving 12. History of ASA associated gastritis 13. Anemia of chronic disease with history of transfusion PLAN: 1. As outlined in prior note to optimize medical therapy considering that he is asymptomatic with down-trending Troponin I, would not pursue any further cardiac intervention 2. Continue Carvedilol 3. Continue Procardia XL 4. Continue Plavix with caution and close monitoring of Hg maintain Hg equal or > 8.0 5. Hold Lasix pending renal function recovery and stabilization 6. Continue Atorvastatin 7. Antibiotics and Tamiflu as per the ID service Upon discharge, patient is to follow up with his validation specialist: Dr. Ángel Murguia ([facility]) Umu Grace MD
[2017-09-08 07:04] LABS: BLOOD UREA NITROGEN 112 mg/dL (7-18)
--- NOTE | 2017-09-08 07:34 | PN ---
Progress Note, Physician Chief Complaint: ID Subjective improvement Oseltamavir and Ceftriaxone NO fevers Couph improved - Current Medication List Current Medications: Active Medications Atorvastatin Calcium (Lipitor -) 20 mg PO HS [facility] Last Admin: 09/07/17 21:00 Dose: 20 mg Carvedilol (Coreg -) 12.5 mg PO BID [facility] Last Admin: 09/07/17 21:00 Dose: 12.5 mg Cholecalciferol (Vitamin D3 -) 1,000 unit PO DAILY [facility] Last Admin: 09/07/17 09:32 Dose: 1,000 unit Citalopram Hydrobromide (Celexa -) 20 mg PO DAILY [facility] Last Admin: 09/07/17 09:32 Dose: 20 mg Clopidogrel Bisulfate (Plavix -) 75 mg PO DAILY [facility] Last Admin: 09/07/17 09:33 Dose: 75 mg Docusate Sodium (Colace -) 300 mg PO HS [facility] Last Admin: 09/07/17 20:59 Dose: 300 mg Ferrous Sulfate (Feosol -) 325 mg PO DAILY [facility] Last Admin: 09/07/17 09:32 Dose: 325 mg Gabapentin (Neurontin -) 100 mg PO DAILY [facility] Last Admin: 09/07/17 09:33 Dose: 100 mg CEFTRIAXONE 1 G/50 ML PREMIX (Ceftriaxone 1 Gm-D5w Bag) 50 mls @ 100 mls/hr IVPB DAILY [facility] Last Admin: 09/07/17 09:32 Dose: 100 mls/hr Sodium Chloride (1/2 Normal Saline) 1,000 mls @ 50 mls/hr IV ASDIR [facility] Stop: 09/08/17 15:49 Last Admin: 09/07/17 16:11 Dose: 50 mls/hr Insulin Aspart (Novolog Vial Sliding Scale -) 1 vial SQ ACHS [facility] PRN Reason: Protocol Last Admin: 09/07/17 21:00 Dose: 4 unit Nifedipine (Procardia Xl -) 30 mg PO DAILY [facility] Last Admin: 09/07/17 09:33 Dose: 30 mg Oseltamivir Phosphate (Tamiflu -) 30 mg PO BID [facility] Stop: 09/11/17 10:44 Last Admin: 09/07/17 21:38 Dose: 30 mg Pantoprazole Sodium (Protonix -) 40 mg PO DAILY [facility] Last Admin: 09/07/17 09:32 Dose: 40 mg Polyethylene Glycol (Miralax (For Daily Use) -) 17 gm PO DAILY [facility] Last Admin: 09/07/17 09:34 Dose: 17 gm Sucralfate (Carafate -) 1 gm PO BID [facility] Last Admin: 09/07/17 20:59 Dose: 1 gm Tamsulosin HCl (Flomax -) 0.4 mg PO DAILY@0830 [facility] Last Admin: 09/07/17 08:16 Dose: 0.4 mg - Objective Vital Signs: Vital Signs Temperature 98.0 F 09/08/17 06:04 Pulse Rate 62 09/07/17 22:41 Respiratory Rate 20 09/08/17 06:04 Blood Pressure 157/61 09/08/17 06:04 O2 Sat by Pulse Oximetry (%) 99 09/07/17 21:00 Constitutional: Yes: Well Nourished, No Distress HENT: Yes: WNL, Atraumatic Neck: Yes: WNL, Supple Cardiovascular: Yes: Regular Rate and Rhythm, S1, S2. No: Murmur Respiratory: Yes: WNL, Regular, CTA Bilaterally. No: Rales, Rhonchi Gastrointestinal: Yes: WNL, Normal Bowel Sounds, Soft. No: Tenderness, Tenderness, Rebound Extremities: No: Cold, Cool, Cyanosis Edema: No Labs: CBC, BMP 09/08/17 05:35 09/08/17 05:35 INR, PTT INR 1.39 (0.82-1.09) H 09/05/17 18:00 Assessment/Plan Laboratory Tests 09/08/17 09/08/17 05:35 05:35 WBC 8.1 Hgb 9.3 L Hct 27.4 L Plt Count 237 BUN 112 H* Creatinine 4.7 H Microbiology 09/05/17 18:40 Urine - Urine - Catheterized Urine Culture - Preliminary Lactose Fermenting Neg Bacilli Group D Strep Or Entero Coccus 09/05/17 18:00 Blood - Peripheral Venous Blood Culture - Preliminary NO GROWTH OBTAINED AFTER 48 HOURS, INCUBATION TO CONTINUE FOR 3 DAYS. 09/05/17 18:00 Blood - Peripheral Venous Blood Culture - Preliminary NO GROWTH OBTAINED AFTER 48 HOURS, INCUBATION TO CONTINUE FOR 3 DAYS. Assessment Influenza B on therapy Urinary tract infection mixed silvia Acute and chronic renal failure Elevated TNI on telemetry Plan Stop Ceftriaxone Give Zosyn 2.25gr q8 pending culture Tamiflu Respiratory isolation Josiah ROSALES ICU critical care 35 minutes [place] MD
[2017-09-08] MEDS: TAMSULOSIN HCL 0.4 MG CAP.ER.24H (FP) PO SCH (08:14)
[2017-09-08] MEDS ORDERED: PT OWN MED DRAWER 7, Y5N ONE ×3 (08:22→21:54)
[2017-09-08] MEDS ORDERED: INSULIN (NOVOLOG) ASPART 100 UNITS/ML 10ML VIAL ONE ×2 (10:22→16:39)
[2017-09-08] MEDS: NIFEdipine E.R. 30 MG TABLET (FP) PO SCH (10:26)
[2017-09-08] MEDS: PIPERACILLIN/TAZOB 2.25 GM 2.25 GM/50 ML BAG IVPB SCH ×2 (10:26→17:33)
[2017-09-08] MEDS: CLOPIDOGREL BISULFATE 75 MG TABLET (FP) PO SCH (10:28)
[2017-09-08] MEDS: SUCRALFATE 1 GM TABLET (FP) PO SCH (10:28)
[2017-09-08] MEDS: CHOLECALCIFEROL (VITAMIN D3) 1,000 UNIT TABLET (FP) PO SCH (10:28)
[2017-09-08] MEDS: GABAPENTIN 100 MG CAPSULE (FP) PO SCH (10:28)
[2017-09-08] MEDS: OSELTAMIVIR PHOSPHATE 30 MG CAPSULE PO SCH ×2 (10:28→22:22)
[2017-09-08] MEDS: FERROUS SO4 325 MG TABLET (FP) PO SCH (10:29)
[2017-09-08] MEDS: CARVEDILOL 12.5 MG TABLET (FP) PO SCH ×2 (10:29→22:22)
[2017-09-08] MEDS: CITALOPRAM HYDROBROMIDE 20 MG TABLET (FP) PO SCH (10:29)
[2017-09-08] MEDS: PANTOPRAZOLE 40 MG TABLET (FP) PO SCH (10:29)
[2017-09-08] MEDS: INSULIN SLIDING SCALE (NOVOLOG) 1 VIAL SQ SCH ×4 (10:29→22:24)
[2017-09-08] MEDS: POLYETHYLENE GLYCOL 3350 119 GM BTL PO SCH (10:32)
--- NOTE | 2017-09-08 14:54 | PN ---
Progress Note, Physician History of Present Illness: Pt seen and examined at bedside. He is awake and appears comfortable. He denies shortness of breath. - Current Medication List Current Medications: Active Medications Atorvastatin Calcium (Lipitor -) 20 mg PO HS [facility] Last Admin: 09/07/17 21:00 Dose: 20 mg Carvedilol (Coreg -) 12.5 mg PO BID [facility] Last Admin: 09/08/17 10:29 Dose: 12.5 mg Cholecalciferol (Vitamin D3 -) 1,000 unit PO DAILY [facility] Last Admin: 09/08/17 10:28 Dose: 1,000 unit Citalopram Hydrobromide (Celexa -) 20 mg PO DAILY [facility] Last Admin: 09/08/17 10:29 Dose: 20 mg Clopidogrel Bisulfate (Plavix -) 75 mg PO DAILY [facility] Last Admin: 09/08/17 10:28 Dose: 75 mg Docusate Sodium (Colace -) 300 mg PO HS [facility] Last Admin: 09/07/17 20:59 Dose: 300 mg Ferrous Sulfate (Feosol -) 325 mg PO DAILY [facility] Last Admin: 09/08/17 10:29 Dose: 325 mg Gabapentin (Neurontin -) 100 mg PO DAILY [facility] Last Admin: 09/08/17 10:28 Dose: 100 mg Sodium Chloride (1/2 Normal Saline) 1,000 mls @ 50 mls/hr IV ASDIR [facility] Stop: 09/08/17 15:49 Last Admin: 09/07/17 16:11 Dose: 50 mls/hr Piperacillin/Tazobactam/Dextrose (Zosyn 2.25gm Ivpb (Premix)) 2.25 gm in 50 mls @ 100 mls/hr IVPB Q8H-IV ROSIE PRN Reason: Protocol Last Admin: 09/08/17 10:26 Dose: 100 mls/hr Insulin Aspart (Novolog Vial Sliding Scale -) 1 vial SQ ACHS [facility] PRN Reason: Protocol Last Admin: 09/08/17 12:44 Dose: 6 unit Nifedipine (Procardia Xl -) 30 mg PO DAILY [facility] Last Admin: 09/08/17 10:26 Dose: 30 mg Oseltamivir Phosphate (Tamiflu -) 30 mg PO BID [facility] Stop: 09/11/17 10:44 Last Admin: 09/08/17 10:28 Dose: 30 mg Pantoprazole Sodium (Protonix -) 40 mg PO DAILY [facility] Last Admin: 09/08/17 10:29 Dose: 40 mg Polyethylene Glycol (Miralax (For Daily Use) -) 17 gm PO DAILY [facility] Last Admin: 09/08/17 10:32 Dose: 17 gm Sucralfate (Carafate -) 1 gm PO BID [facility] Last Admin: 09/08/17 10:28 Dose: 1 gm Tamsulosin HCl (Flomax -) 0.4 mg PO DAILY@0830 [facility] Last Admin: 09/08/17 08:14 Dose: 0.4 mg - Objective Vital Signs: Vital Signs Temperature 97.8 F 09/08/17 12:50 Pulse Rate 61 09/08/17 12:50 Respiratory Rate 20 09/08/17 12:50 Blood Pressure 132/78 09/08/17 12:50 O2 Sat by Pulse Oximetry (%) 99 09/08/17 09:00 Constitutional: Yes: Calm Eyes: Yes: Conjunctiva Clear HENT: Yes: Atraumatic Neck: Yes: Supple Cardiovascular: Yes: S1, S2 Respiratory: Yes: On Nasal O2 Gastrointestinal: Yes: Soft Genitourinary: Yes: WNL Musculoskeletal: Yes: WNL Edema: No Neurological: Yes: Oriented Psychiatric: Yes: Oriented Labs: CBC, BMP 09/08/17 05:35 09/08/17 05:35 INR, PTT INR 1.39 (0.82-1.09) H 09/05/17 18:00 Problem List - Problems (1) Influenza Code(s): J11.1 - FLU DUE TO UNIDENTIFIED INFLUENZA VIRUS W OTH RESP MANIFEST (2) UTI (urinary tract infection) Code(s): N39.0 - URINARY TRACT INFECTION, SITE NOT SPECIFIED Qualifiers: Urinary tract infection type: site unspecified Hematuria presence: without hematuria Qualified Code(s): N39.0 - Urinary tract infection, site not specified (3) CAD (coronary artery disease) Code(s): I25.10 - ATHSCL HEART DISEASE OF [place] CORONARY ARTERY W/O ANG PCTRS Qualifiers: Coronary Disease-Associated Artery/Lesion type: [place] artery [place] vs. transplanted heart: [place] heart Associated angina: without angina Qualified Code(s): I25.10 - Atherosclerotic heart disease of [place] coronary artery without angina pectoris (4) CKD (chronic kidney disease) Code(s): N18.9 - CHRONIC KIDNEY DISEASE, UNSPECIFIED Qualifiers: Chronic kidney disease stage: stage 4 (severe) Qualified Code(s): N18.4 - Chronic kidney disease, stage 4 (severe) (5) Diabetes Code(s): E11.9 - TYPE 2 DIABETES MELLITUS WITHOUT COMPLICATIONS Qualifiers: 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 type: type 2 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 complication status: with kidney complications 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 complication detail: with nephropathy 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 watermelon inspector insulin use: unspecified watermelon inspector insulin use status Qualified Code(s): E11.21 - Type 2 diabetes mellitus with diabetic nephropathy Assessment/Plan Current Medications Generic Name Dose Route Start Last Admin Trade Name Freq PRN Reason Stop Dose Admin Atorvastatin Calcium 20 mg 09/06/17 22:00 09/07/17 21:00 Lipitor - PO 20 mg HS ROSIE Administration Carvedilol 12.5 mg 09/06/17 22:00 09/08/17 10:29 Coreg - PO 12.5 mg BID ROSIE Administration Cholecalciferol 1,000 unit 09/07/17 10:00 09/08/17 10:28 Vitamin D3 - PO 1,000 unit DAILY ROSIE Administration Citalopram Hydrobromide 20 mg 09/07/17 10:00 09/08/17 10:29 Celexa - PO 20 mg DAILY ROSIE Administration Clopidogrel Bisulfate 75 mg 09/07/17 10:00 09/08/17 10:28 Plavix - PO 75 mg DAILY ROSIE Administration Docusate Sodium 300 mg 09/06/17 22:00 09/07/17 20:59 Colace - PO 300 mg HS ROSIE Administration Ferrous Sulfate 325 mg 09/07/17 10:00 09/08/17 10:29 Feosol - PO 325 mg DAILY ROSIE Administration Gabapentin 100 mg 09/07/17 10:00 09/08/17 10:28 Neurontin - PO 100 mg DAILY ROSIE Administration Sodium Chloride 1,000 mls @ 50 mls/hr 09/07/17 16:00 09/07/17 16:11 1/2 Normal Saline IV 09/08/17 15:49 50 mls/hr ASDIR ROSIE Administration Piperacillin/Tazobactam/Dextrose 2.25 gm in 50 mls @ 100 mls/hr 09/08/17 10: 00 09/08/17 10:26 Zosyn 2.25gm Ivpb (Premix) IVPB 100 mls/hr Q8H-IV ROSIE Administration Protocol Insulin Aspart 1 vial 09/06/17 07:00 09/08/17 12:44 Novolog Vial Sliding Scale - SQ 6 unit ACHS ROSIE Administration Protocol Nifedipine 30 mg 09/07/17 10:00 09/08/17 10:26 Procardia Xl - PO 30 mg DAILY ROSIE Administration Oseltamivir Phosphate 30 mg 09/06/17 10:45 09/08/17 10:28 Tamiflu - PO 09/11/17 10:44 30 mg BID ROSIE Administration Pantoprazole Sodium 40 mg 09/07/17 10:00 09/08/17 10:29 Protonix - PO 40 mg DAILY ROSIE Administration Polyethylene Glycol 17 gm 09/07/17 10:00 09/08/17 10:32 Miralax (For Daily Use) - PO 17 gm DAILY ROSIE Administration Sucralfate 1 gm 09/06/17 22:00 09/08/17 10:28 Carafate - PO 1 gm BID ROSIE Administration Tamsulosin HCl 0.4 mg 09/07/17 08:30 09/08/17 08:14 Flomax - PO 0.4 mg DAILY@0830 ROSIE Administration Impression 1. CKD 2. anemia 3. HTN 4. Chol 5. DM 6. BPH 7. CAD 8. urinary retention 9. GI bleed 10. positive for Flu 11. UTI 12. CHIARA Plan - renal function continues to improve - monitor urine output - repeat labs in am - cont with current fluids - d/c carafate - lasix on hold - cont abx - volume status is improving - likely chiara on CKD from dehydration and pre-renal disease - will follow
--- NOTE | 2017-09-08 17:36 | PN ---
Physical Exam: SUBJECTIVE: Patient seen and examined Patient is feeling better with no acute distress. No shortness of breath, no nausea or vomiting. OBJECTIVE: Vital Signs Period Temp Pulse Resp BP Sys/Rodriguez Pulse Ox Last 24 Hr 97.8 F-98.2 F 58-62 16-20 132-167/54-78 99-99 GENERAL: The patient is awake, alert, and fully oriented, in no acute distress. on NC HEAD: Normal with no signs of trauma. EYES: PERRL, extraocular movements intact, sclera anicteric, conjunctiva clear. ENT: Ears normal, oropharynx clear without exudates, moist mucous membranes. NECK: Trachea midline, full range of motion, supple. LUNGS: Breath sounds equal, clear to auscultation bilaterally, positive for rhonchi bl. No accessory muscle use. HEART: Regular rate and rhythm, S1, S2 positive, REA 2/6 no rub or gallop. ABDOMEN: Soft, nontender, nondistended, normoactive bowel sounds, no guarding, no rebound, no hepatosplenomegaly, no masses. EXTREMITIES: 2+ pulses, warm, well-perfused, no edema. NEUROLOGICAL: Cranial nerves II through XII grossly intact. Normal speech, gait not observed. PSYCH: Normal mood, normal affect. SKIN: Warm, dry, normal turgor, no rashes or lesions noted Laboratory Results - last 24 hr 09/07/17 09/07/17 09/07/17 06:09 11:26 16:34 WBC RBC Hgb Hct MCV MCH MCHC RDW Plt Count MPV Neutrophils % Lymphocytes % Monocytes % Eosinophils % Basophils % Sodium Potassium Chloride Carbon Dioxide Anion Gap BUN Creatinine POC Glucometer [phone] [phone] Random Glucose Calcium 09/08/17 09/08/17 05:35 05:35 WBC 8.1 RBC 3.23 L Hgb 9.3 L Hct 27.4 L MCV 84.9 MCH 28.6 MCHC 33.7 RDW 16.4 H Plt Count 237 MPV 7.3 L Neutrophils % 84.9 H Lymphocytes % 6.4 L Monocytes % 7.4 Eosinophils % 1.1 D Basophils % 0.2 Sodium 142 Potassium 4.1 Chloride 106 Carbon Dioxide 26 Anion Gap 10 BUN 112 H* Creatinine 4.7 H POC Glucometer Random Glucose 272 H D Calcium 7.4 L Active Medications Generic Name Dose Route Start Last Admin Trade Name Andrzejq PRN Reason Stop Dose Admin Atorvastatin Calcium 20 mg 09/06/17 22:00 09/07/17 21:00 Lipitor - PO 20 mg HS ROSIE Administration Carvedilol 12.5 mg 09/06/17 22:00 09/08/17 10:29 Coreg - PO 12.5 mg BID ROSIE Administration Cholecalciferol 1,000 unit 09/07/17 10:00 09/08/17 10:28 Vitamin D3 - PO 1,000 unit DAILY ROSIE Administration Citalopram Hydrobromide 20 mg 09/07/17 10:00 09/08/17 10:29 Celexa - PO 20 mg DAILY ROSIE Administration Clopidogrel Bisulfate 75 mg 09/07/17 10:00 09/08/17 10:28 Plavix - PO 75 mg DAILY ROSIE Administration Docusate Sodium 300 mg 09/06/17 22:00 09/07/17 20:59 Colace - PO 300 mg HS ROSIE Administration Ferrous Sulfate 325 mg 09/07/17 10:00 09/08/17 10:29 Feosol - PO 325 mg DAILY ROSIE Administration Gabapentin 100 mg 09/07/17 10:00 09/08/17 10:28 Neurontin - PO 100 mg DAILY ROSIE Administration Piperacillin/Tazobactam/Dextrose 2.25 gm in 50 mls @ 100 mls/hr 09/08/17 10: 00 09/08/17 10:26 Zosyn 2.25gm Ivpb (Premix) IVPB 100 mls/hr Q8H-IV ROSIE Administration Protocol Insulin Aspart 1 vial 09/06/17 07:00 09/08/17 16:31 Novolog Vial Sliding Scale - SQ 8 unit ACHS ROSIE Administration Protocol Nifedipine 30 mg 09/07/17 10:00 09/08/17 10:26 Procardia Xl - PO 30 mg DAILY ROSIE Administration Oseltamivir Phosphate 30 mg 09/06/17 10:45 09/08/17 10:28 Tamiflu - PO 09/11/17 10:44 30 mg BID ROSIE Administration Pantoprazole Sodium 40 mg 09/07/17 10:00 09/08/17 10:29 Protonix - PO 40 mg DAILY ROSIE Administration Polyethylene Glycol 17 gm 09/07/17 10:00 09/08/17 10:32 Miralax (For Daily Use) - PO 17 gm DAILY ROSIE Administration Tamsulosin HCl 0.4 mg 09/07/17 08:30 09/08/17 08:14 Flomax - PO 0.4 mg DAILY@0830 ROSIE Administration Microbiology 09/05/17 18:00 Blood - Peripheral Venous Blood Culture - Preliminary NO GROWTH OBTAINED AFTER 96 HOURS, INCUBATION TO CONTINUE FOR 1 DAYS. 09/05/17 18:00 Blood - Peripheral Venous Blood Culture - Preliminary NO GROWTH OBTAINED AFTER 96 HOURS, INCUBATION TO CONTINUE FOR 1 DAYS. 09/05/17 18:40 Urine - Urine - Catheterized Urine Culture - Final Enterobacter Aerogenes Enterococcus Faecalis ASSESSMENT/PLAN: Patient is a 71 yo M with anemia on procrit, CAD s/p CABG/stents, GERD, HLD, CKD - Stg 4, DM, Chronic back pain (s/p laminectomy and fusions) and chronic constipations, who presents with cough and shortness of breath, recently treated for the flu, found to be Septic. # Influenza B Positive continue Tamiflu renally dosed, ID on the case discussed with. #s/p Sepsis due to UTI growing Enterobacter Aerogenes, Enterococcus Faecalis , continue IV antibiotic, Rocephin as per ID. #Acute UTi on Rocephin continue # CHIARA on CKD on IVF improving , nephro consult appreciated # Normocytic Anemia ; further management per Nephro dr Jin. #NSTEMI with Troponin Elevation vs Demand Ischemia # Acute Diastolic Congestive Heart Failure Echo 07/12- Ef 58 % # T2DM contine with sliding scale with coverage, Diabetic Diet Dvt Ppx: SCDS possible discharge to rehab. Visit type - Emergency Visit Emergency Visit: Yes ED Registration Date: 09/05/17 Care time: The patient presented to the Emergency Department on the above date and was hospitalized for further evaluation of their emergent condition. - New Patient This patient is new to me today: No - Critical Care Critical Care patient: No - Discharge Referral Referred to [facility] Med [facility].: No
[2017-09-08] MEDS: DOCUSATE SODIUM 100 MG CAPSULE (FP) PO SCH (22:22)
[2017-09-08] MEDS: ATORVASTATIN CA 20 MG TABLET (FP) PO SCH (22:22)
[2017-09-09] MEDS ORDERED: PT OWN MED DRAWER 7, Y5N ONE ×4 (03:03→22:38)
[2017-09-09] MEDS: PIPERACILLIN/TAZOB 2.25 GM 2.25 GM/50 ML BAG IVPB SCH ×3 (03:11→17:02)
[2017-09-09] MEDS: INSULIN SLIDING SCALE (NOVOLOG) 1 VIAL SQ SCH ×4 (07:01→22:47)
--- NOTE | 2017-09-09 07:06 | PN ---
Progress Note (short form) - Note Progress Note: Chief Complaint: Events noted, notes reviewed, denies any chest pain or dyspnea , cough continues to improve History of Present Illness: Seen and examined on telemetry. Events noted, notes reviewed, denies any chest pain or dyspnea, cough continues to improve Echocardiography dated 07/11/2017 revealed Low normal LV function, abnormal LV compliance, moderate MR, moderate-severe TR, severe pulmonary HTN Medications: Current Medications Atorvastatin Calcium (Lipitor -) 20 mg PO HS [facility] Last Admin: 09/08/17 22:22 Dose: 20 mg Carvedilol (Coreg -) 12.5 mg PO BID [facility] Last Admin: 09/08/17 22:22 Dose: 12.5 mg Cholecalciferol (Vitamin D3 -) 1,000 unit PO DAILY [facility] Last Admin: 09/08/17 10:28 Dose: 1,000 unit Citalopram Hydrobromide (Celexa -) 20 mg PO DAILY [facility] Last Admin: 09/08/17 10:29 Dose: 20 mg Clopidogrel Bisulfate (Plavix -) 75 mg PO DAILY [facility] Last Admin: 09/08/17 10:28 Dose: 75 mg Docusate Sodium (Colace -) 300 mg PO HS [facility] Last Admin: 09/08/17 22:22 Dose: 300 mg Ferrous Sulfate (Feosol -) 325 mg PO DAILY [facility] Last Admin: 09/08/17 10:29 Dose: 325 mg Gabapentin (Neurontin -) 100 mg PO DAILY [facility] Last Admin: 09/08/17 10:28 Dose: 100 mg Piperacillin/Tazobactam/Dextrose (Zosyn 2.25gm Ivpb (Premix)) 2.25 gm in 50 mls @ 100 mls/hr IVPB Q8H-IV [facility] PRN Reason: Protocol Last Admin: 09/09/17 03:11 Dose: 100 mls/hr Insulin Aspart (Novolog Vial Sliding Scale -) 1 vial SQ ACHS [facility] PRN Reason: Protocol Last Admin: 09/09/17 07:01 Dose: 2 unit Nifedipine (Procardia Xl -) 30 mg PO DAILY [facility] Last Admin: 09/08/17 10:26 Dose: 30 mg Oseltamivir Phosphate (Tamiflu -) 30 mg PO BID [facility] Stop: 09/11/17 10:44 Last Admin: 09/08/17 22:22 Dose: 30 mg Pantoprazole Sodium (Protonix -) 40 mg PO DAILY [facility] Last Admin: 09/08/17 10:29 Dose: 40 mg Polyethylene Glycol (Miralax (For Daily Use) -) 17 gm PO DAILY [facility] Last Admin: 09/08/17 10:32 Dose: 17 gm Tamsulosin HCl (Flomax -) 0.4 mg PO DAILY@0830 [facility] Last Admin: 09/08/17 08:14 Dose: 0.4 mg Review of Systems Constitutional: Denies: Chills or Fever Cardiovascular: Denies: chest pain, shortness of breath, palpitations Respiratory: Reports: cough Gastrointestinal: Denies: Nausea, Vomiting, Diarrhea, Constipation, abdominal pain Neurology: No seizures or syncope Vital Signs: Last Vital Signs Temp Pulse Resp BP Pulse Ox 98.2 F 60 16 156/92 99 09/08/17 18:18 09/09/17 06:39 09/09/17 06:39 09/09/17 06:39 09/08/17 20:00 Intake & Output 09/06/17 09/07/17 09/08/17 09/09/17 23:59 23:59 23:59 23:59 Intake Total 50 3100 2050 400 Output Total 3700 1900 900 Balance -3650 1200 1150 400 Weight 143 lb 6.4 oz 138 lb 1.6 oz 138 lb 1.6 oz 140 lb Constitutional: No Distress, Calm Neck: Supple Negative JVD No Bruit Respiratory: Diminished Breath Sounds at the Bases Bilaterally Cardiovascular: S1 S2 Regular Rate and Rhythm Grade 1-2/6 SM Gastrointestinal: Soft Benign Normal Bowel Sounds Ext: No Edema Labs: Blood test from this AM pending CBC, BMP 09/08/17 05:35 09/08/17 05:35 Assessment/Plan ASSESSMENT: 1. Sepsis syndrome, suspect source, resolving 2. Influenza B 3. CAD post CABG, angina pectoris with evidence of demand ischemic injury, related to above 4. Systolic/diastolic LV dysfunction with class 0 NYHA classification LV failure , compensated/euvolemic 5. Moderate MR 6. Moderate to severe TR with severe pulmonary HTN 7. Hypertension/HCVD 8. 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 9. Hypercholesterolemia 10. PAD post peripheral bypass surgery 11. Acute on CKD improving 12. History of ASA associated gastritis 13. Anemia of chronic disease with history of transfusion PLAN: 1. As outlined in prior notes to optimize medical therapy considering that he is asymptomatic with down-trending Troponin I, would not pursue any further cardiac intervention 2. Continue Carvedilol and titrate dosage as tolerated/needed 3. Continue Procardia XL and titrate dosage as tolerated/needed 4. Continue Plavix with caution and close monitoring of Hg maintain Hg equal or > 8.0 5. Continue to hold Lasix pending renal function recovery and stabilization 6. Continue Atorvastatin 7. Antibiotics and Tamiflu as per the ID service Upon discharge, patient is to follow up with his hand hide stretcher: Dr. Ángel Murguia ([facility]) Umu Grace MD
[2017-09-09 07:44] LABS: CHLORIDE 108 mmol/L (98-107); POTASSIUM 4.2 mmol/L (3.5-5.1); SODIUM 142 mmol/L (136-145)
[2017-09-09 07:49] LABS: ALBUMIN 2.4 g/dl (3.4-5.0); ALK PHOS 96 U/L (45-117); ANION GAP 10 (8-16); BILIRUBIN,TOTAL 0.4 mg/dL (0.2-1.0); BLOOD UREA NITROGEN 93 mg/dL (7-18); CALCIUM 7.1 mg/dL (8.5-10.1); CO2 24 mmol/L (21-32); CREATININE 4.2 mg/dL (0.7-1.3); GLUCOSE,RANDOM 194 mg/dL (74-106); SGOT/AST 22 U/L (15-37); SGPT/ALT 35 U/L (12-78); TOT PROT 6.4 g/dl (6.4-8.2)
[2017-09-09] MEDS: TAMSULOSIN HCL 0.4 MG CAP.ER.24H (FP) PO SCH (08:44)
[2017-09-09] MEDS: PANTOPRAZOLE 40 MG TABLET (FP) PO SCH (10:19)
[2017-09-09] MEDS: CHOLECALCIFEROL (VITAMIN D3) 1,000 UNIT TABLET (FP) PO SCH (10:19)
[2017-09-09] MEDS: FERROUS SO4 325 MG TABLET (FP) PO SCH (10:19)
[2017-09-09] MEDS: CLOPIDOGREL BISULFATE 75 MG TABLET (FP) PO SCH (10:19)
[2017-09-09] MEDS: GABAPENTIN 100 MG CAPSULE (FP) PO SCH (10:19)
[2017-09-09] MEDS: NIFEdipine E.R. 30 MG TABLET (FP) PO SCH (10:19)
[2017-09-09] MEDS: CITALOPRAM HYDROBROMIDE 20 MG TABLET (FP) PO SCH (10:19)
[2017-09-09] MEDS: CARVEDILOL 25 MG TABLET (FP) PO SCH ×2 (10:20→22:40)
[2017-09-09] MEDS: POLYETHYLENE GLYCOL 3350 119 GM BTL PO SCH (10:22)
[2017-09-09] MEDS: OSELTAMIVIR PHOSPHATE 30 MG CAPSULE PO SCH ×2 (11:17→22:40)
--- NOTE | 2017-09-09 17:37 | PN ---
Progress Note (short form) - Note Progress Note: Patient is doing better. with no acute distress. wants to go back to rehab. Vital Signs Temperature 98.6 F 09/09/17 14:00 Pulse Rate 58 L 09/09/17 17:18 Respiratory Rate 18 09/09/17 14:00 Blood Pressure 189/69 09/09/17 17:18 O2 Sat by Pulse Oximetry (%) 99 09/09/17 10:00 GENERAL: The patient is awake, alert, and fully oriented, in no acute distress. HEAD: Normal with no signs of trauma. EYES: PERRL, extraocular movements intact, sclera anicteric, conjunctiva clear. ENT: Ears normal, oropharynx clear without exudates, moist mucous membranes. NECK: Trachea midline, full range of motion, supple. LUNGS: Breath sounds equal, clear to auscultation bilaterally, no wheezes, no crackles, no accessory muscle use. HEART: Regular rate and rhythm, S1, S2 positive, REA 2/6 no rub or gallop. ABDOMEN: Soft, nontender, nondistended, normoactive bowel sounds, no guarding, no rebound, no hepatosplenomegaly, no masses. EXTREMITIES: 2+ pulses, warm, well-perfused, no edema. NEUROLOGICAL: Cranial nerves II through XII grossly intact. Normal speech, gait not observed. PSYCH: Normal mood, normal affect. SKIN: Warm, dry, normal turgor, no rashes or lesions noted CBCD WBC 8.1 K/mm3 (4.0-10.0) 09/08/17 05:35 RBC 3.23 M/mm3 (4.00-5.60) L 09/08/17 05:35 Hgb 9.3 GM/dL (11.7-16.9) L 09/08/17 05:35 Hct 27.4 % (35.4-49) L 09/08/17 05:35 MCV 84.9 fl (80-96) 09/08/17 05:35 MCHC 33.7 g/dl (32.0-35.9) 09/08/17 05:35 RDW 16.4 % (11.9-15.9) H 09/08/17 05:35 Plt Count 237 K/MM3 (134-434) 09/08/17 05:35 MPV 7.3 fl (7.5-11.1) L 09/08/17 05:35 CMP Sodium 142 mmol/L (136-145) 09/09/17 06:00 Potassium 4.2 mmol/L (3.5-5.1) 09/09/17 06:00 Chloride 108 mmol/L (98-107) H 09/09/17 06:00 Carbon Dioxide 24 mmol/L (21-32) 09/09/17 06:00 Anion Gap 10 (8-16) 09/09/17 06:00 BUN 93 mg/dL (7-18) H 09/09/17 06:00 Creatinine 4.2 mg/dL (0.7-1.3) H 09/09/17 06:00 Creat Clearance w eGFR 14.06 (>60) 09/09/17 06:00 Random Glucose 194 mg/dL (74-106) H D 09/09/17 06:00 Calcium 7.1 mg/dL (8.5-10.1) L 09/09/17 06:00 Total Bilirubin 0.4 mg/dL (0.2-1.0) 09/09/17 06:00 AST 22 U/L (15-37) 09/09/17 06:00 ALT 35 U/L (12-78) 09/09/17 06:00 Alkaline Phosphatase 96 U/L (45-117) 09/09/17 06:00 Total Protein 6.4 g/dl (6.4-8.2) 09/09/17 06:00 Albumin 2.4 g/dl (3.4-5.0) L 09/09/17 06:00 CARDIAC ENZYMES Creatine Kinase 270 IU/L (39-308) 09/05/17 23:15 Troponin I 1.43 ng/ml (0.00-0.05) H* 09/06/17 06:22 Current Medications Generic Name Dose Route Start Last Admin Trade Name Freq PRN Reason Stop Dose Admin Atorvastatin Calcium 20 mg 09/06/17 22:00 09/08/17 22:22 Lipitor - PO 20 mg HS ROSIE Administration Carvedilol 25 mg 09/09/17 10:00 09/09/17 10:20 Coreg - PO 25 mg BID ROSIE Administration Cholecalciferol 1,000 unit 09/07/17 10:00 09/09/17 10:19 Vitamin D3 - PO 1,000 unit DAILY ROSIE Administration Citalopram Hydrobromide 20 mg 09/07/17 10:00 09/09/17 10:19 Celexa - PO 20 mg DAILY ROSIE Administration Clopidogrel Bisulfate 75 mg 09/07/17 10:00 09/09/17 10:19 Plavix - PO 75 mg DAILY ROSIE Administration Docusate Sodium 300 mg 09/06/17 22:00 09/08/17 22:22 Colace - PO 300 mg HS ROSIE Administration Ferrous Sulfate 325 mg 09/07/17 10:00 09/09/17 10:19 Feosol - PO 325 mg DAILY ROSIE Administration Gabapentin 100 mg 09/07/17 10:00 09/09/17 10:19 Neurontin - PO 100 mg DAILY ROSIE Administration Piperacillin/Tazobactam/Dextrose 2.25 gm in 50 mls @ 100 mls/hr 09/08/17 10: 00 09/09/17 17:02 Zosyn 2.25gm Ivpb (Premix) IVPB 100 mls/hr Q8H-IV ROSIE Administration Protocol Insulin Aspart 1 vial 09/06/17 07:00 09/09/17 17:01 Novolog Vial Sliding Scale - SQ 4 unit ACHS ROSIE Administration Protocol Nifedipine 30 mg 09/07/17 10:00 09/09/17 10:19 Procardia Xl - PO 30 mg DAILY ROSIE Administration Oseltamivir Phosphate 30 mg 09/06/17 10:45 09/09/17 11:17 Tamiflu - PO 09/11/17 10:44 30 mg BID ROSIE Administration Pantoprazole Sodium 40 mg 09/07/17 10:00 09/09/17 10:19 Protonix - PO 40 mg DAILY ROSIE Administration Polyethylene Glycol 17 gm 09/07/17 10:00 09/09/17 10:22 Miralax (For Daily Use) - PO 17 gm DAILY ROSIE Administration Tamsulosin HCl 0.4 mg 09/07/17 08:30 09/09/17 08:44 Flomax - PO 0.4 mg DAILY@0830 ROSIE Administration Home Medications Medication Instructions Recorded Cholecalciferol (Vitamin D3) 1,000 unit PO DAILY tablet 09/02/12 [Vitamin D3] Clopidogrel Bisulfate [Clopidogrel] 75 mg PO HS #90 tablet 01/10/16 Carvedilol 12.5 mg PO BID 06/11/17 Ferrous Sulfate [Feosol] 325 mg PO DAILY ud 07/12/17 Docusate Sodium [Colace -] 300 mg PO HS 07/14/17 Insulin Glargine,Hum.rec.anlog 15 units SQ HS 07/14/17 [Lantus Solostar PEN -] Lidocaine 5% Patch [Lidoderm -] 1 patch TP DAILY #7 patch 07/15/17 Nifedipine ER [Procardia XL -] 30 mg PO DAILY tab.er.24 07/22/17 Furosemide [Lasix -] 40 mg PO BID 07/23/17 Insulin Sliding Scale [Novolog 1 vial SQ TIDAC PRN 07/23/17 Vial Sliding Scale -] Simvastatin 40 mg PO HS 07/23/17 Pantoprazole Sodium [Protonix -] 40 mg PO DAILY #30 tablet.ec 07/25/17 Sucralfate [Carafate -] 1 gm PO BID #60 tablet 07/25/17 Tamsulosin HCl [Flomax -] 0.4 mg PO HS cap.er.24h 07/25/17 Polyethylene Glycol 3350 [Miralax 17 gm PO DAILY 09/03/17 (For Daily Use) -] Oseltamivir Phosphate [Tamiflu] 75 mg PO BID 09/05/17 Microbiology 09/05/17 18:00 Blood - Peripheral Venous Blood Culture - Preliminary NO GROWTH OBTAINED AFTER 96 HOURS, INCUBATION TO CONTINUE FOR 1 DAYS. 09/05/17 18:00 Blood - Peripheral Venous Blood Culture - Preliminary NO GROWTH OBTAINED AFTER 96 HOURS, INCUBATION TO CONTINUE FOR 1 DAYS. 09/05/17 18:40 Urine - Urine - Catheterized Urine Culture - Final Enterobacter Aerogenes Enterococcus Faecalis A/P: Patient is a 71 yo M with anemia on procrit, CAD s/p CABG/stents, GERD, HLD, CKD - Stg 4, DM, Chronic back pain (s/p laminectomy and fusions) and chronic constipations, who presents with cough and shortness of breath, recently treated for the flu, found to be Septic. # Influenza B Positive continue Tamiflu which is renally dosed, ID on the case discussed with to continue #s/p Sepsis due to UTI continue IV antibiotic, Zosyn as per ID. #Acute UTi on Zosyn as per ID Enterobacter Aerogenes; Enterococcus Faecalis # CHIARA on CKD on IVF improving will continue to monitor , nephro consult appreciated # Normocytic Anemia ; further management as per Nephro dr Jin. #NSTEMI with Troponin Elevation vs Demand Ischemia # Acute Diastolic Congestive Heart Failure Echo 07/12- Ef 58 % # T2DM contine with sliding scale with coverage, Diabetic Diet # QT prolongation on admission 500 then was 470 repeat QTc. repeat is 455 now. Patient has a hx of Depression on Celexa will continue to monitor. Dvt Ppx: SCDS Visit type - Emergency Visit Emergency Visit: Yes ED Registration Date: 09/05/17 Care time: The patient presented to the Emergency Department on the above date and was hospitalized for further evaluation of their emergent condition. - New Patient This patient is new to me today: No - Critical Care Critical Care patient: No - Discharge Referral Referred to [facility] No
--- NOTE | 2017-09-09 18:29 | PN ---
Progress Note, Physician History of Present Illness: Pt seen and examined at bedside. he is awake and appears comfortable. - Current Medication List Current Medications: Active Medications Atorvastatin Calcium (Lipitor -) 20 mg PO HS [facility] Last Admin: 09/08/17 22:22 Dose: 20 mg Carvedilol (Coreg -) 25 mg PO BID [facility] Last Admin: 09/09/17 10:20 Dose: 25 mg Cholecalciferol (Vitamin D3 -) 1,000 unit PO DAILY [facility] Last Admin: 09/09/17 10:19 Dose: 1,000 unit Citalopram Hydrobromide (Celexa -) 20 mg PO DAILY [facility] Last Admin: 09/09/17 10:19 Dose: 20 mg Clopidogrel Bisulfate (Plavix -) 75 mg PO DAILY [facility] Last Admin: 09/09/17 10:19 Dose: 75 mg Docusate Sodium (Colace -) 300 mg PO HS [facility] Last Admin: 09/08/17 22:22 Dose: 300 mg Ferrous Sulfate (Feosol -) 325 mg PO DAILY [facility] Last Admin: 09/09/17 10:19 Dose: 325 mg Gabapentin (Neurontin -) 100 mg PO DAILY [facility] Last Admin: 09/09/17 10:19 Dose: 100 mg Piperacillin/Tazobactam/Dextrose (Zosyn 2.25gm Ivpb (Premix)) 2.25 gm in 50 mls @ 100 mls/hr IVPB Q8H-IV [facility] PRN Reason: Protocol Last Admin: 09/09/17 17:02 Dose: 100 mls/hr Insulin Aspart (Novolog Vial Sliding Scale -) 1 vial SQ ACHS [facility] PRN Reason: Protocol Last Admin: 09/09/17 17:01 Dose: 4 unit Nifedipine (Procardia Xl -) 30 mg PO DAILY [facility] Last Admin: 09/09/17 10:19 Dose: 30 mg Oseltamivir Phosphate (Tamiflu -) 30 mg PO BID [facility] Stop: 09/11/17 10:44 Last Admin: 09/09/17 11:17 Dose: 30 mg Pantoprazole Sodium (Protonix -) 40 mg PO DAILY [facility] Last Admin: 09/09/17 10:19 Dose: 40 mg Polyethylene Glycol (Miralax (For Daily Use) -) 17 gm PO DAILY [facility] Last Admin: 09/09/17 10:22 Dose: 17 gm Tamsulosin HCl (Flomax -) 0.4 mg PO DAILY@0830 [facility] Last Admin: 09/09/17 08:44 Dose: 0.4 mg - Objective Vital Signs: Vital Signs Temperature 98.6 F 09/09/17 14:00 Pulse Rate 58 L 09/09/17 17:18 Respiratory Rate 18 09/09/17 14:00 Blood Pressure 189/69 09/09/17 17:18 O2 Sat by Pulse Oximetry (%) 99 09/09/17 10:00 Constitutional: Yes: Calm Eyes: Yes: Conjunctiva Clear HENT: Yes: Atraumatic Neck: Yes: Supple Cardiovascular: Yes: S1, S2 Respiratory: Yes: On Nasal O2 Gastrointestinal: Yes: Soft Genitourinary: Yes: Chen Present Musculoskeletal: Yes: WNL Edema: No Integumentary: Yes: WNL Neurological: Yes: Confusion Labs: CBC, BMP 09/08/17 05:35 09/09/17 06:00 INR, PTT INR 1.39 (0.82-1.09) H 09/05/17 18:00 Problem List - Problems (1) Influenza Code(s): J11.1 - FLU DUE TO UNIDENTIFIED INFLUENZA VIRUS W OTH RESP MANIFEST (2) UTI (urinary tract infection) Code(s): N39.0 - URINARY TRACT INFECTION, SITE NOT SPECIFIED Qualifiers: Urinary tract infection type: site unspecified Hematuria presence: without hematuria Qualified Code(s): N39.0 - Urinary tract infection, site not specified (3) CAD (coronary artery disease) Code(s): I25.10 - ATHSCL HEART DISEASE OF [place] CORONARY ARTERY W/O ANG PCTRS Qualifiers: Coronary Disease-Associated Artery/Lesion type: [place] artery [place] vs. transplanted heart: [place] heart Associated angina: without angina Qualified Code(s): I25.10 - Atherosclerotic heart disease of [place] coronary artery without angina pectoris (4) CKD (chronic kidney disease) Code(s): N18.9 - CHRONIC KIDNEY DISEASE, UNSPECIFIED Qualifiers: Chronic kidney disease stage: stage 4 (severe) Qualified Code(s): N18.4 - Chronic kidney disease, stage 4 (severe) (5) Diabetes Code(s): E11.9 - TYPE 2 DIABETES MELLITUS WITHOUT COMPLICATIONS Qualifiers: 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 type: type 2 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 complication status: with kidney complications 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 complication detail: with nephropathy 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 termination clerk insulin use: unspecified termination clerk insulin use status Qualified Code(s): E11.21 - Type 2 diabetes mellitus with diabetic nephropathy Assessment/Plan Current Medications Generic Name Dose Route Start Last Admin Trade Name David PRN Reason Stop Dose Admin Atorvastatin Calcium 20 mg 09/06/17 22:00 09/08/17 22:22 Lipitor - PO 20 mg HS [facility] Administration Carvedilol 25 mg 09/09/17 10:00 09/09/17 10:20 Coreg - PO 25 mg BID [facility] Administration Cholecalciferol 1,000 unit 09/07/17 10:00 09/09/17 10:19 Vitamin D3 - PO 1,000 unit DAILY [facility] Administration Citalopram Hydrobromide 20 mg 09/07/17 10:00 09/09/17 10:19 Celexa - PO 20 mg DAILY [facility] Administration Clopidogrel Bisulfate 75 mg 09/07/17 10:00 09/09/17 10:19 Plavix - PO 75 mg DAILY [facility] Administration Docusate Sodium 300 mg 09/06/17 22:00 09/08/17 22:22 Colace - PO 300 mg HS [facility] Administration Ferrous Sulfate 325 mg 09/07/17 10:00 09/09/17 10:19 Feosol - PO 325 mg DAILY [facility] Administration Gabapentin 100 mg 09/07/17 10:00 09/09/17 10:19 Neurontin - PO 100 mg DAILY [facility] Administration Piperacillin/Tazobactam/Dextrose 2.25 gm in 50 mls @ 100 mls/hr 09/08/17 10: 00 09/09/17 17:02 Zosyn 2.25gm Ivpb (Premix) IVPB 100 mls/hr Q8H-IV [facility] Administration Protocol Insulin Aspart 1 vial 09/06/17 07:00 09/09/17 17:01 Novolog Vial Sliding Scale - SQ 4 unit ACHS [facility] Administration Protocol Nifedipine 30 mg 09/07/17 10:00 09/09/17 10:19 Procardia Xl - PO 30 mg DAILY [facility] Administration Oseltamivir Phosphate 30 mg 09/06/17 10:45 09/09/17 11:17 Tamiflu - PO 09/11/17 10:44 30 mg BID [facility] Administration Pantoprazole Sodium 40 mg 09/07/17 10:00 09/09/17 10:19 Protonix - PO 40 mg DAILY [facility] Administration Polyethylene Glycol 17 gm 09/07/17 10:00 09/09/17 10:22 Miralax (For Daily Use) - PO 17 gm DAILY [facility] Administration Tamsulosin HCl 0.4 mg 09/07/17 08:30 09/09/17 08:44 Flomax - PO 0.4 mg DAILY@0830 [facility] Administration Impression 1. CKD 2. anemia 3. HTN 4. Chol 5. DM 6. BPH 7. CAD 8. urinary retention 9. GI bleed 10. positive for Flu 11. UTI 12. ANITA Plan - renal function is improving - stop fluids - monitor urine output - lasix on hold - cont abx - likely anita on CKD from dehydration and pre-renal disease - will follow
[2017-09-09] MEDS ORDERED: ONDANSETRON 4 MG/2 ML VIAL IVPUSH ONE (21:33)
[2017-09-09] MEDS ORDERED: ONDANSETRON 4 MG/2 ML VIAL ONE (21:37)
[2017-09-09] MEDS: ATORVASTATIN CA 20 MG TABLET (FP) PO SCH (22:39)
[2017-09-09] MEDS: DOCUSATE SODIUM 100 MG CAPSULE (FP) PO SCH (22:40)
[2017-09-09] MEDS ORDERED: ACETAMINOPHEN 325 MG TABLET (FP) PO ONE (23:45)
[2017-09-10] MEDS: PIPERACILLIN/TAZOB 2.25 GM 2.25 GM/50 ML BAG IVPB SCH ×2 (02:54→09:35)
--- NOTE | 2017-09-10 05:03 | HOSP ---
Subjective - Review of Symptoms Events since last encounter: Was called to see pt because of abdominal pain. Pt reportedly had been nauseated and vomiting earlier and was given zofran, which helped. However pt began complaining of abdominal pain several hours later. On exam, pt felt comfortable. No acute distress. Abdomen soft, nontender. Heart and lung exams unremarkable. Pt noted to have high BP 200/80. Per nurse, she had just given BP meds. EKG with anterior Q waves without ST elevations. Unchanged from previous. Abdominal XR ordered. Pt stable, afebrile, in NAD. Physical Examination Vital Signs: Vital Signs Temperature 98 F 09/10/17 02:00 Pulse Rate 64 09/10/17 02:00 Respiratory Rate 20 09/10/17 02:00 Blood Pressure 185/72 09/10/17 02:00 O2 Sat by Pulse Oximetry (%) 99 09/09/17 21:00 Labs: CBC, BMP 09/08/17 05:35 09/09/17 06:00 Visit type - Emergency Visit Emergency Visit: No - New Patient This patient is new to me today: Yes Date on this admission: 09/10/17 - Critical Care Critical Care patient: No
[2017-09-10] MEDS: CITALOPRAM HYDROBROMIDE 20 MG TABLET (FP) PO SCH (09:23)
[2017-09-10] MEDS: FERROUS SO4 325 MG TABLET (FP) PO SCH (09:23)
[2017-09-10] MEDS: CLOPIDOGREL BISULFATE 75 MG TABLET (FP) PO SCH (09:23)
[2017-09-10] MEDS: GABAPENTIN 100 MG CAPSULE (FP) PO SCH (09:23)
[2017-09-10] MEDS: OSELTAMIVIR PHOSPHATE 30 MG CAPSULE PO SCH (09:23)
[2017-09-10] MEDS: CHOLECALCIFEROL (VITAMIN D3) 1,000 UNIT TABLET (FP) PO SCH (09:23)
[2017-09-10] MEDS: NIFEdipine E.R. 30 MG TABLET (FP) PO SCH (09:23)
[2017-09-10] MEDS: TAMSULOSIN HCL 0.4 MG CAP.ER.24H (FP) PO SCH (09:23)
[2017-09-10] MEDS: PANTOPRAZOLE 40 MG TABLET (FP) PO SCH (09:23)
[2017-09-10] MEDS: CARVEDILOL 25 MG TABLET (FP) PO SCH (09:23)
[2017-09-10] MEDS: POLYETHYLENE GLYCOL 3350 119 GM BTL PO SCH (09:25)
[2017-09-10] MEDS ORDERED: PT OWN MED DRAWER 7, Y5N ONE (09:50)
[2017-09-10 11:14] LABS: ANION GAP 10 (8-16); BLOOD UREA NITROGEN 87 mg/dL (7-18); CALCIUM 7.9 mg/dL (8.5-10.1); CHLORIDE 112 mmol/L (98-107); CO2 24 mmol/L (21-32); CREATININE 4.1 mg/dL (0.7-1.3); GLUCOSE,RANDOM 225 mg/dL (74-106); POTASSIUM 4.4 mmol/L (3.5-5.1); SODIUM 146 mmol/L (136-145)
--- NOTE | 2017-09-10 11:47 | PN ---
Progress Note, Physician History of Present Illness: Cough resolving, denies dyspnea. - Current Medication List Current Medications: Active Medications Atorvastatin Calcium (Lipitor -) 20 mg PO HS [facility] Last Admin: 09/09/17 22:39 Dose: 20 mg Carvedilol (Coreg -) 25 mg PO BID [facility] Last Admin: 09/10/17 09:23 Dose: 25 mg Cholecalciferol (Vitamin D3 -) 1,000 unit PO DAILY [facility] Last Admin: 09/10/17 09:23 Dose: 1,000 unit Citalopram Hydrobromide (Celexa -) 20 mg PO DAILY [facility] Last Admin: 09/10/17 09:23 Dose: 20 mg Clopidogrel Bisulfate (Plavix -) 75 mg PO DAILY [facility] Last Admin: 09/10/17 09:23 Dose: 75 mg Docusate Sodium (Colace -) 300 mg PO HS [facility] Last Admin: 09/09/17 22:40 Dose: 300 mg Ferrous Sulfate (Feosol -) 325 mg PO DAILY [facility] Last Admin: 09/10/17 09:23 Dose: 325 mg Gabapentin (Neurontin -) 100 mg PO DAILY [facility] Last Admin: 09/10/17 09:23 Dose: 100 mg Piperacillin/Tazobactam/Dextrose (Zosyn 2.25gm Ivpb (Premix)) 2.25 gm in 50 mls @ 100 mls/hr IVPB Q8H-IV [facility] PRN Reason: Protocol Last Admin: 09/10/17 09:35 Dose: 100 mls/hr Insulin Aspart (Novolog Vial Sliding Scale -) 1 vial SQ ACHS [facility] PRN Reason: Protocol Last Admin: 09/09/17 22:47 Dose: 4 unit Nifedipine (Procardia Xl -) 30 mg PO DAILY [facility] Last Admin: 09/10/17 09:23 Dose: 30 mg Oseltamivir Phosphate (Tamiflu -) 30 mg PO BID [facility] Stop: 09/11/17 10:44 Last Admin: 09/10/17 09:23 Dose: 30 mg Pantoprazole Sodium (Protonix -) 40 mg PO DAILY [facility] Last Admin: 09/10/17 09:23 Dose: 40 mg Polyethylene Glycol (Miralax (For Daily Use) -) 17 gm PO DAILY [facility] Last Admin: 09/10/17 09:25 Dose: Not Given Tamsulosin HCl (Flomax -) 0.4 mg PO DAILY@0830 [facility] Last Admin: 09/10/17 09:23 Dose: 0.4 mg - Objective Vital Signs: Vital Signs Temperature 98.3 F 09/10/17 06:00 Pulse Rate 65 09/10/17 08:10 Respiratory Rate 21 09/10/17 09:00 Blood Pressure 133/54 09/10/17 08:10 O2 Sat by Pulse Oximetry (%) 99 09/10/17 09:00 Constitutional: Yes: No Distress, Calm, Thin Neck: Yes: Supple Cardiovascular: Yes: Regular Rate and Rhythm Respiratory: Yes: Regular, Diminished, On Nasal O2 Gastrointestinal: Yes: Normal Bowel Sounds, Soft Edema: No Labs: CBC, BMP 09/08/17 05:35 09/10/17 10:23 INR, PTT INR 1.39 (0.82-1.09) H 09/05/17 18:00 - ....Imaging EKG: Report Reviewed (Tele: SR) Problem List - Problems (1) Diastolic dysfunction Code(s): I51.9 - HEART DISEASE, UNSPECIFIED (2) Influenza Code(s): J11.1 - FLU DUE TO UNIDENTIFIED INFLUENZA VIRUS W OTH RESP MANIFEST (3) UTI (urinary tract infection) Code(s): N39.0 - URINARY TRACT INFECTION, SITE NOT SPECIFIED Qualifiers: Urinary tract infection type: site unspecified Hematuria presence: without hematuria Qualified Code(s): N39.0 - Urinary tract infection, site not specified (4) Anemia Code(s): D64.9 - ANEMIA, UNSPECIFIED Qualifiers: Anemia type: due to chronic kidney disease Chronic kidney disease stage: stage 4 (severe) Qualified Code(s): N18.4 - Chronic kidney disease, stage 4 ( severe); D63.1 - Anemia in chronic kidney disease; D63.1 - Anemia in chronic kidney disease (5) Troponin level elevated Code(s): R74.8 - ABNORMAL LEVELS OF OTHER SERUM ENZYMES (6) CAD (coronary artery disease) Code(s): I25.10 - ATHSCL HEART DISEASE OF [place] CORONARY ARTERY W/O ANG PCTRS Qualifiers: Coronary Disease-Associated Artery/Lesion type: [place] artery [place] vs. transplanted heart: [place] heart Associated angina: without angina Qualified Code(s): I25.10 - Atherosclerotic heart disease of [place] coronary artery without angina pectoris (7) CKD (chronic kidney disease) Code(s): N18.9 - CHRONIC KIDNEY DISEASE, UNSPECIFIED Qualifiers: Chronic kidney disease stage: stage 4 (severe) Qualified Code(s): N18.4 - Chronic kidney disease, stage 4 (severe) (8) Diabetes Code(s): E11.9 - TYPE 2 DIABETES MELLITUS WITHOUT COMPLICATIONS Qualifiers: 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 type: type 2 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 complication status: with kidney complications 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 complication detail: with nephropathy 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 keno terminal operator insulin use: unspecified skilled nursing insulin use status Qualified Code(s): E11.21 - Type 2 diabetes mellitus with diabetic nephropathy (9) HTN (hypertension) Code(s): I10 - ESSENTIAL (PRIMARY) HYPERTENSION Qualifiers: Hypertension type: essential hypertension Qualified Code(s): I10 - Essential (primary) hypertension (10) Hx of CABG Code(s): Z95.1 - PRESENCE OF AORTOCORONARY BYPASS GRAFT (11) Hypercholesterolemia Code(s): E78.00 - PURE HYPERCHOLESTEROLEMIA, UNSPECIFIED (12) PAD (peripheral artery disease) Code(s): I73.9 - PERIPHERAL VASCULAR DISEASE, UNSPECIFIED (13) Demand ischemia Code(s): I24.8 - OTHER FORMS OF ACUTE ISCHEMIC HEART DISEASE (14) Acute on chronic renal failure Code(s): N17.9 - ACUTE KIDNEY FAILURE, UNSPECIFIED; N18.9 - CHRONIC KIDNEY DISEASE, UNSPECIFIED Qualifiers: Chronic kidney disease stage: stage 4 (severe) Assessment/Plan 07/11/2017 Low normal LV fxn, abnl LV compliance, mod MR, mod-severe TR, severe pulm HTN, mild [place] 1. Sepsis syndrome, suspect source, resolving 2. Influenza B 3. CAD post CABG, angina pectoris with evidence of demand ischemic injury, related to above 4. Systolic/diastolic LV dysfunction with class 0 NYHA classification LV failure , compensated/euvolemic 5. Moderate MR 6. Moderate to severe TR with severe pulmonary HTN 7. Hypertension/HCVD 8. 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 9. Hypercholesterolemia 10. PAD post peripheral bypass surgery 11. Acute on CKD improving 12. History of ASA associated gastritis 13. Anemia of chronic disease with history of transfusion PLAN: 1. As outlined in prior notes to optimize medical therapy considering that he is asymptomatic with down-trending Troponin I, would not pursue any further cardiac intervention 2. Continue Carvedilol 25 bid and titrate dosage as tolerated/needed 3. Increase Procardia XL 60 qd and titrate dosage as tolerated/needed 4. Continue Plavix 75 qd with caution and close monitoring of Hg maintain Hg equal or > 8.0 5. Continue to hold Lasix pending renal function recovery and stabilization 6. Continue Atorvastatin 20 qhs 7. Antibiotics and Tamiflu as per the ID service Upon discharge, patient is to follow up with his seat cover installer: Dr. Ángel Murguia ([facility])
--- NOTE | 2017-09-10 12:42 | EKG ---
Test Reason : Blood Pressure : / mmHG Vent. Rate : 065 BPM Atrial Rate : 065 BPM P-R Int : 168 ms QRS Dur : 086 ms QT Int : 438 ms P-R-T Axes : 053 -32 142 degrees QTc Int : 455 ms NORMAL SINUS RHYTHM LEFT AXIS DEVIATION ANTERIOR INFARCT (CITED ON OR BEFORE 23-JUL-2017) ABNORMAL ECG WHEN COMPARED WITH ECG OF 06-SEP-2017 10:13, T WAVE VARIATION Confirmed by JOLLY ROSALES, GERALD ([id number]) on 09/10/2017 12:42:20 PM Referred By: Confirmed By:GERALD AZEVEDO MD
[2017-09-10 14:04] VITALS: BP 173/64; TEMP 98.6
[2017-09-10 14:39] VITALS: PULSE 69
--- NOTE | 2017-09-10 14:47 | PN ---
Progress Note (short form) - Note Progress Note: no complaints no vomiting afebrile tolerating diet Vital Signs Period Temp Pulse Resp BP Sys/Rodriguez Pulse Ox Last 24 Hr 98 F-98.6 F 58-69 18-22 133-189/54-73 92-99 cor-rrr lungs clear abd soft,nt ext no edema +witt CBC, BMP 09/08/17 05:35 09/10/17 10:23 Microbiology 09/05/17 18:00 Blood - Peripheral Venous Blood Culture - Preliminary NO GROWTH OBTAINED AFTER 96 HOURS, INCUBATION TO CONTINUE FOR 1 DAYS. 09/05/17 18:00 Blood - Peripheral Venous Blood Culture - Preliminary NO GROWTH OBTAINED AFTER 96 HOURS, INCUBATION TO CONTINUE FOR 1 DAYS. 09/05/17 18:40 Urine - Urine - Catheterized Urine Culture - Final Enterobacter Aerogenes Enterococcus Faecalis Current Medications Atorvastatin Calcium (Lipitor -) 20 mg PO HS [facility] Last Admin: 09/09/17 22:39 Dose: 20 mg Carvedilol (Coreg -) 25 mg PO BID [facility] Last Admin: 09/10/17 09:23 Dose: 25 mg Cholecalciferol (Vitamin D3 -) 1,000 unit PO DAILY [facility] Last Admin: 09/10/17 09:23 Dose: 1,000 unit Citalopram Hydrobromide (Celexa -) 20 mg PO DAILY [facility] Last Admin: 09/10/17 09:23 Dose: 20 mg Clopidogrel Bisulfate (Plavix -) 75 mg PO DAILY [facility] Last Admin: 09/10/17 09:23 Dose: 75 mg Docusate Sodium (Colace -) 300 mg PO HS [facility] Last Admin: 09/09/17 22:40 Dose: 300 mg Ferrous Sulfate (Feosol -) 325 mg PO DAILY [facility] Last Admin: 09/10/17 09:23 Dose: 325 mg Gabapentin (Neurontin -) 100 mg PO DAILY [facility] Last Admin: 09/10/17 09:23 Dose: 100 mg Piperacillin/Tazobactam/Dextrose (Zosyn 2.25gm Ivpb (Premix)) 2.25 gm in 50 mls @ 100 mls/hr IVPB Q8H-IV [facility] PRN Reason: Protocol Last Admin: 09/10/17 09:35 Dose: 100 mls/hr Insulin Aspart (Novolog Vial Sliding Scale -) 1 vial SQ ACHS [facility] PRN Reason: Protocol Last Admin: 09/09/17 22:47 Dose: 4 unit Nifedipine (Procardia Xl -) 30 mg PO DAILY [facility] Last Admin: 09/10/17 09:23 Dose: 30 mg Oseltamivir Phosphate (Tamiflu -) 30 mg PO BID [facility] Stop: 09/11/17 10:44 Last Admin: 09/10/17 09:23 Dose: 30 mg Pantoprazole Sodium (Protonix -) 40 mg PO DAILY [facility] Last Admin: 09/10/17 09:23 Dose: 40 mg Polyethylene Glycol (Miralax (For Daily Use) -) 17 gm PO DAILY [facility] Last Admin: 09/10/17 09:25 Dose: Not Given Tamsulosin HCl (Flomax -) 0.4 mg PO DAILY@0830 [facility] Last Admin: 09/10/17 09:23 Dose: 0.4 mg a/p influenza B- doing well, lethargy resolved, continue tamiflu to complete 5 days acute on chronic renal failure with urinary retention and UTI-to switch to po levaquin 250 [id number] to complete total 11 days (now day #3) +troponins anemia Problem List - Problems (1) Influenza B Code(s): J10.1 - FLU DUE TO OTH IDENT INFLUENZA VIRUS W OTH RESP MANIFEST (2) UTI (urinary tract infection) Code(s): N39.0 - URINARY TRACT INFECTION, SITE NOT SPECIFIED Qualifiers: Urinary tract infection type: site unspecified Hematuria presence: without hematuria Qualified Code(s): N39.0 - Urinary tract infection, site not specified (3) Acute on chronic renal failure Code(s): N17.9 - ACUTE KIDNEY FAILURE, UNSPECIFIED; N18.9 - CHRONIC KIDNEY DISEASE, UNSPECIFIED Qualifiers: Chronic kidney disease stage: stage 4 (severe) (4) Anemia Code(s): D64.9 - ANEMIA, UNSPECIFIED Qualifiers: Anemia type: due to chronic kidney disease Chronic kidney disease stage: stage 4 (severe) Qualified Code(s): N18.4 - Chronic kidney disease, stage 4 ( severe); D63.1 - Anemia in chronic kidney disease; D63.1 - Anemia in chronic kidney disease (5) Elevated troponin I level Code(s): R74.8 - ABNORMAL LEVELS OF OTHER SERUM ENZYMES
--- NOTE | 2017-09-10 15:13 | PN ---
Progress Note, Physician History of Present Illness: Pt seen and examined at bedside. He is awake and appears comfortable. He is out of bed to chair. - Current Medication List Current Medications: Active Medications Atorvastatin Calcium (Lipitor -) 20 mg PO HS [facility] Last Admin: 09/09/17 22:39 Dose: 20 mg Carvedilol (Coreg -) 25 mg PO BID [facility] Last Admin: 09/10/17 09:23 Dose: 25 mg Cholecalciferol (Vitamin D3 -) 1,000 unit PO DAILY [facility] Last Admin: 09/10/17 09:23 Dose: 1,000 unit Citalopram Hydrobromide (Celexa -) 20 mg PO DAILY [facility] Last Admin: 09/10/17 09:23 Dose: 20 mg Clopidogrel Bisulfate (Plavix -) 75 mg PO DAILY [facility] Last Admin: 09/10/17 09:23 Dose: 75 mg Docusate Sodium (Colace -) 300 mg PO HS [facility] Last Admin: 09/09/17 22:40 Dose: 300 mg Ferrous Sulfate (Feosol -) 325 mg PO DAILY [facility] Last Admin: 09/10/17 09:23 Dose: 325 mg Gabapentin (Neurontin -) 100 mg PO DAILY [facility] Last Admin: 09/10/17 09:23 Dose: 100 mg Piperacillin/Tazobactam/Dextrose (Zosyn 2.25gm Ivpb (Premix)) 2.25 gm in 50 mls @ 100 mls/hr IVPB Q8H-IV [facility] PRN Reason: Protocol Last Admin: 09/10/17 09:35 Dose: 100 mls/hr Insulin Aspart (Novolog Vial Sliding Scale -) 1 vial SQ ACHS [facility] PRN Reason: Protocol Last Admin: 09/09/17 22:47 Dose: 4 unit Nifedipine (Procardia Xl -) 30 mg PO DAILY [facility] Last Admin: 09/10/17 09:23 Dose: 30 mg Oseltamivir Phosphate (Tamiflu -) 30 mg PO BID [facility] Stop: 09/11/17 10:44 Last Admin: 09/10/17 09:23 Dose: 30 mg Pantoprazole Sodium (Protonix -) 40 mg PO DAILY [facility] Last Admin: 09/10/17 09:23 Dose: 40 mg Polyethylene Glycol (Miralax (For Daily Use) -) 17 gm PO DAILY [facility] Last Admin: 09/10/17 09:25 Dose: Not Given Tamsulosin HCl (Flomax -) 0.4 mg PO DAILY@0830 [facility] Last Admin: 09/10/17 09:23 Dose: 0.4 mg - Objective Vital Signs: Vital Signs Temperature 98.6 F 09/10/17 14:01 Pulse Rate 69 09/10/17 14:37 Respiratory Rate 22 09/10/17 14:01 Blood Pressure 173/64 09/10/17 14:01 O2 Sat by Pulse Oximetry (%) 92 L 09/10/17 14:37 Constitutional: Yes: Calm Eyes: Yes: Conjunctiva Clear HENT: Yes: Atraumatic Neck: Yes: Supple Cardiovascular: Yes: S1, S2 Respiratory: Yes: CTA Bilaterally, On Nasal O2 Gastrointestinal: Yes: Soft Genitourinary: Yes: Chen Present Musculoskeletal: Yes: WNL Edema: No Neurological: Yes: Confusion Labs: CBC, BMP 09/08/17 05:35 09/10/17 10:23 INR, PTT INR 1.39 (0.82-1.09) H 09/05/17 18:00 Problem List - Problems (1) Influenza Code(s): J11.1 - FLU DUE TO UNIDENTIFIED INFLUENZA VIRUS W OTH RESP MANIFEST (2) UTI (urinary tract infection) Code(s): N39.0 - URINARY TRACT INFECTION, SITE NOT SPECIFIED Qualifiers: Urinary tract infection type: site unspecified Hematuria presence: without hematuria Qualified Code(s): N39.0 - Urinary tract infection, site not specified (3) CAD (coronary artery disease) Code(s): I25.10 - ATHSCL HEART DISEASE OF [place] CORONARY ARTERY W/O ANG PCTRS Qualifiers: Coronary Disease-Associated Artery/Lesion type: [place] artery [place] vs. transplanted heart: [place] heart Associated angina: without angina Qualified Code(s): I25.10 - Atherosclerotic heart disease of [place] coronary artery without angina pectoris (4) CKD (chronic kidney disease) Code(s): N18.9 - CHRONIC KIDNEY DISEASE, UNSPECIFIED Qualifiers: Chronic kidney disease stage: stage 4 (severe) Qualified Code(s): N18.4 - Chronic kidney disease, stage 4 (severe) (5) Diabetes Code(s): E11.9 - TYPE 2 DIABETES MELLITUS WITHOUT COMPLICATIONS Qualifiers: 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 type: type 2 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 complication status: with kidney complications 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 complication detail: with nephropathy 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 terminal superintendent insulin use: unspecified terminal superintendent insulin use status Qualified Code(s): E11.21 - Type 2 diabetes mellitus with diabetic nephropathy Assessment/Plan Current Medications Generic Name Dose Route Start Last Admin Trade Name David PRN Reason Stop Dose Admin Atorvastatin Calcium 20 mg 09/06/17 22:00 09/09/17 22:39 Lipitor - PO 20 mg HS [facility] Administration Carvedilol 25 mg 09/09/17 10:00 09/10/17 09:23 Coreg - PO 25 mg BID [facility] Administration Cholecalciferol 1,000 unit 09/07/17 10:00 09/10/17 09:23 Vitamin D3 - PO 1,000 unit DAILY [facility] Administration Citalopram Hydrobromide 20 mg 09/07/17 10:00 09/10/17 09:23 Celexa - PO 20 mg DAILY [facility] Administration Clopidogrel Bisulfate 75 mg 09/07/17 10:00 09/10/17 09:23 Plavix - PO 75 mg DAILY [facility] Administration Docusate Sodium 300 mg 09/06/17 22:00 09/09/17 22:40 Colace - PO 300 mg HS [facility] Administration Ferrous Sulfate 325 mg 09/07/17 10:00 09/10/17 09:23 Feosol - PO 325 mg DAILY [facility] Administration Gabapentin 100 mg 09/07/17 10:00 09/10/17 09:23 Neurontin - PO 100 mg DAILY [facility] Administration Piperacillin/Tazobactam/Dextrose 2.25 gm in 50 mls @ 100 mls/hr 09/08/17 10: 00 09/10/17 09:35 Zosyn 2.25gm Ivpb (Premix) IVPB 100 mls/hr Q8H-IV [facility] Administration Protocol Insulin Aspart 1 vial 09/06/17 07:00 09/09/17 22:47 Novolog Vial Sliding Scale - SQ 4 unit ACHS [facility] Administration Protocol Nifedipine 30 mg 09/07/17 10:00 09/10/17 09:23 Procardia Xl - PO 30 mg DAILY [facility] Administration Oseltamivir Phosphate 30 mg 09/06/17 10:45 09/10/17 09:23 Tamiflu - PO 09/11/17 10:44 30 mg BID [facility] Administration Pantoprazole Sodium 40 mg 09/07/17 10:00 09/10/17 09:23 Protonix - PO 40 mg DAILY [facility] Administration Polyethylene Glycol 17 gm 09/07/17 10:00 09/10/17 09:25 Miralax (For Daily Use) - PO Not Given DAILY [facility] Tamsulosin HCl 0.4 mg 09/07/17 08:30 09/10/17 09:23 Flomax - PO 0.4 mg DAILY@0830 [facility] Administration Impression 1. CKD 2. anemia 3. HTN 4. Chol 5. DM 6. BPH 7. CAD 8. urinary retention 9. GI bleed 10. positive for Flu 11. UTI 12. ANITA 13. hypernatremia Plan - renal function continues to improve - lasix on hold for now, will need to be restart likely within next few day - encourage PO water intake - renal diet - abx for UTI - pt has appointment with vascular for fistula next week - likely anita on CKD from dehydration and pre-renal disease - will follow
--- NOTE | 2017-09-10 16:35 | PN ---
Teaching Attending Note Name of Resident: Romero De La Torre ATTENDING PHYSICIAN STATEMENT I saw and evaluated the patient. I reviewed the resident's note and discussed the case with the resident. I agree with the resident's findings and plan as documented. SUBJECTIVE: Patient is feeling better, with no acute distress. No shortness of breath, wants to go back to Rehab. OBJECTIVE: Vital Signs Temperature 98.6 F 09/10/17 14:01 Pulse Rate 69 09/10/17 14:37 Respiratory Rate 22 09/10/17 14:01 Blood Pressure 173/64 09/10/17 14:01 O2 Sat by Pulse Oximetry (%) 92 L 09/10/17 14:37 CBCD WBC 8.1 K/mm3 (4.0-10.0) 09/08/17 05:35 RBC 3.23 M/mm3 (4.00-5.60) L 09/08/17 05:35 Hgb 9.3 GM/dL (11.7-16.9) L 09/08/17 05:35 Hct 27.4 % (35.4-49) L 09/08/17 05:35 MCV 84.9 fl (80-96) 09/08/17 05:35 MCHC 33.7 g/dl (32.0-35.9) 09/08/17 05:35 RDW 16.4 % (11.9-15.9) H 09/08/17 05:35 Plt Count 237 K/MM3 (134-434) 09/08/17 05:35 MPV 7.3 fl (7.5-11.1) L 09/08/17 05:35 CMP Sodium 146 mmol/L (136-145) H 09/10/17 10:23 Potassium 4.4 mmol/L (3.5-5.1) 09/10/17 10:23 Chloride 112 mmol/L (98-107) H 09/10/17 10:23 Carbon Dioxide 24 mmol/L (21-32) 09/10/17 10:23 Anion Gap 10 (8-16) 09/10/17 10:23 BUN 87 mg/dL (7-18) H 09/10/17 10:23 Creatinine 4.1 mg/dL (0.7-1.3) H 09/10/17 10:23 Creat Clearance w eGFR 14.06 (>60) 09/09/17 06:00 Random Glucose 225 mg/dL (74-106) H 09/10/17 10:23 Calcium 7.9 mg/dL (8.5-10.1) L 09/10/17 10:23 Total Bilirubin 0.4 mg/dL (0.2-1.0) 09/09/17 06:00 AST 22 U/L (15-37) 09/09/17 06:00 ALT 35 U/L (12-78) 09/09/17 06:00 Alkaline Phosphatase 96 U/L (45-117) 09/09/17 06:00 Total Protein 6.4 g/dl (6.4-8.2) 09/09/17 06:00 Albumin 2.4 g/dl (3.4-5.0) L 09/09/17 06:00 CARDIAC ENZYMES Creatine Kinase 270 IU/L (39-308) 09/05/17 23:15 Troponin I 1.24 ng/ml (0.00-0.05) H* 09/10/17 04:00 Current Medications Generic Name Dose Route Start Last Admin Trade Name Freq PRN Reason Stop Dose Admin Atorvastatin Calcium 20 mg 09/06/17 22:00 09/09/17 22:39 Lipitor - PO 20 mg HS [facility] Administration Carvedilol 25 mg 09/09/17 10:00 09/10/17 09:23 Coreg - PO 25 mg BID [facility] Administration Cholecalciferol 1,000 unit 09/07/17 10:00 09/10/17 09:23 Vitamin D3 - PO 1,000 unit DAILY [facility] Administration Citalopram Hydrobromide 20 mg 09/07/17 10:00 09/10/17 09:23 Celexa - PO 20 mg DAILY [facility] Administration Clopidogrel Bisulfate 75 mg 09/07/17 10:00 09/10/17 09:23 Plavix - PO 75 mg DAILY [facility] Administration Docusate Sodium 300 mg 09/06/17 22:00 09/09/17 22:40 Colace - PO 300 mg HS [facility] Administration Ferrous Sulfate 325 mg 09/07/17 10:00 09/10/17 09:23 Feosol - PO 325 mg DAILY [facility] Administration Gabapentin 100 mg 09/07/17 10:00 09/10/17 09:23 Neurontin - PO 100 mg DAILY [facility] Administration Piperacillin/Tazobactam/Dextrose 2.25 gm in 50 mls @ 100 mls/hr 09/08/17 10: 00 09/10/17 09:35 Zosyn 2.25gm Ivpb (Premix) IVPB 100 mls/hr Q8H-IV [facility] Administration Protocol Insulin Aspart 1 vial 09/06/17 07:00 09/09/17 22:47 Novolog Vial Sliding Scale - SQ 4 unit ACHS [facility] Administration Protocol Nifedipine 30 mg 09/07/17 10:00 09/10/17 09:23 Procardia Xl - PO 30 mg DAILY [facility] Administration Oseltamivir Phosphate 30 mg 09/06/17 10:45 09/10/17 09:23 Tamiflu - PO 09/11/17 10:44 30 mg BID [facility] Administration Pantoprazole Sodium 40 mg 09/07/17 10:00 09/10/17 09:23 Protonix - PO 40 mg DAILY [facility] Administration Polyethylene Glycol 17 gm 09/07/17 10:00 09/10/17 09:25 Miralax (For Daily Use) - PO Not Given DAILY [facility] Tamsulosin HCl 0.4 mg 09/07/17 08:30 09/10/17 09:23 Flomax - PO 0.4 mg DAILY@0830 [facility] Administration Home Medications Medication Instructions Recorded Cholecalciferol (Vitamin D3) 1,000 unit PO DAILY tablet 09/02/12 [Vitamin D3] Clopidogrel Bisulfate [Clopidogrel] 75 mg PO HS #90 tablet 01/10/16 Carvedilol 12.5 mg PO BID 06/11/17 Ferrous Sulfate [Feosol] 325 mg PO DAILY ud 07/12/17 Docusate Sodium [Colace -] 300 mg PO HS 07/14/17 Insulin Glargine,Hum.rec.anlog 15 units SQ HS 07/14/17 [Lantus Solostar PEN -] Lidocaine 5% Patch [Lidoderm -] 1 patch TP DAILY #7 patch 07/15/17 Insulin Sliding Scale [Novolog 1 vial SQ TIDAC PRN 07/23/17 Vial Sliding Scale -] Simvastatin 40 mg PO HS 07/23/17 Pantoprazole Sodium [Protonix -] 40 mg PO DAILY #30 tablet.ec 07/25/17 Sucralfate [Carafate -] 1 gm PO BID #60 tablet 07/25/17 Tamsulosin HCl [Flomax -] 0.4 mg PO HS cap.er.24h 07/25/17 Polyethylene Glycol 3350 [Miralax 17 gm PO DAILY 09/03/17 119 gm Btl -] Nifedipine ER [Procardia XL -] 60 mg PO DAILY #30 tab.er.24 09/10/17 Oseltamivir Phosphate [Tamiflu -] 30 mg PO BID capsule 09/10/17 Oseltamivir Phosphate [Tamiflu] 30 mg PO BID #2 capsule 09/10/17 PE: NAD, comfortably lying in bed. HEENT: EOMI, MMM Chest: decreased bs at bases otherwise clear Heart: S1S2 positive Abdomen: Soft, NT, NR Ext: pulses are positive NEURo: AA0x3, nfd. ASSESSMENT AND PLAN: Patient is a 71 yo M with anemia on procrit, CAD s/p CABG/stents, GERD, HLD, CKD - Stg 4, DM, Chronic back pain (s/p laminectomy and fusions) and chronic constipations, who presents with cough and shortness of breath, recently treated for the flu, found to be Septic. # Influenza B Positive continue Tamiflu one more day which is renally dosed 30mg po bid, discussed with ID #s/p Sepsis due to UTI completed the course of IV antibiotic Zosyn discussed with ID , no further IV antibiotic is needed or oral antibiotic is needed since patient is afebrile and responded to the treatment. #Acute UTi s/p Zosyn completed the course of IV antibiotics as per ID and was treated for Enterobacter Aerogenes; Enterococcus Faecalis # CHIARA on CKD on IVF improving follow with correspondence clerk as an outpatient. # Normocytic Anemia ; further management as per Nephro dr Jin. #NSTEMI due to Demand Ischemia follow with banquet pilot as an outpatient . # Acute Diastolic Congestive Heart Failure Echo 07/12- Ef 58 % # T2DM continue with Lantus and Novolog insulin , Diabetic Diet # QT prolongation on admission 500 then was 470 repeat QTc. repeat is 455 repeated again was 495 now. Patient has a hx of Depression on Celexa. avoid drugs that interact with Celexa and prolongs Q-t prolongation. Dvt Ppx: SCDS
--- NOTE | 2017-09-10 16:53 | DS ---
Physical Exam: SUBJECTIVE: Patient seen and examined in ICU. Stated he had a few non-bilious non-bloody vomiting and watery diarrhea but have resolved. No fever, chills, chest pain, sob. OBJECTIVE: Vital Signs Period Temp Pulse Resp BP Sys/Rodriguez Pulse Ox Last 24 Hr 98 F-98.6 F 58-69 18-22 133-189/54-73 92-99 PHYSICAL EXAM GENERAL: The patient is awake, alert, and fully oriented, in no acute distress. HEAD: Normal with no signs of trauma. EYES: PERRL, extraocular movements intact, sclera anicteric, conjunctiva clear. ENT: Ears normal, oropharynx clear without exudates, moist mucous membranes. NECK: Trachea midline, full range of motion, supple. LUNGS: Breath sounds equal, clear to auscultation bilaterally, no wheezes, no crackles, no accessory muscle use. HEART: Regular rate and rhythm, S1, S2 positive, REA 2/6 no rub or gallop. ABDOMEN: Soft, nontender, nondistended, normoactive bowel sounds, no guarding, no rebound, no hepatosplenomegaly, no masses. EXTREMITIES: 2+ pulses, warm, well-perfused, no edema. NEUROLOGICAL: Cranial nerves II through XII grossly intact. Normal speech, gait not observed. PSYCH: Normal mood, normal affect. SKIN: Warm, dry, normal turgor, no rashes or lesions noted LABS Laboratory Results - last 24 hr 09/07/17 09/08/17 09/08/17 20:41 05:20 12:32 Sodium Potassium Chloride Carbon Dioxide Anion Gap BUN Creatinine POC Glucometer 245.83314 319.68029 [phone] Random Glucose Calcium Troponin I 09/08/17 09/08/17 09/10/17 16:26 22:22 04:00 Sodium Potassium Chloride Carbon Dioxide Anion Gap BUN Creatinine POC Glucometer 331.74718 335.12744 Random Glucose Calcium Troponin I 1.24 H* 09/10/17 09/10/17 10:23 10:49 Sodium 146 H Potassium 4.4 Chloride 112 H Carbon Dioxide 24 Anion Gap 10 BUN 87 H Creatinine 4.1 H POC Glucometer 249 Random Glucose 225 H Calcium 7.9 L Troponin I HOSPITAL COURSE: Date of Admission:09/05/17 Patient is a 71 yo M with anemia on procrit, CAD s/p CABG/stents, GERD, HLD, CKD - Stg 4, DM, Chronic back pain (s/p laminectomy and fusions) and chronic constipations, who presents with cough and shortness of breath, recently treated for the flu, found to be Septic due to acute urinary tract infection and influenza infection. He's appropriately treated with tamiflu which is renally dosed at 30mg BID and he's to take 2 more pills after discharge. For his UTI, he's been treated with zosyn for 3 days and will not need any further antibiotics. He also sustained acute kidney injury during hospitalization likely pre-renal etiology and improved after fluid resusitation. His renal function continued to improve during hospitalization. He has a chronic indwelling witt for chronic urinary retention. He's also found to have prolonged QTc, therefore any QT prolongation medications must be avoided. Lasix is held due to acute kidney injury, patient will need to see Dr. Leslie and Dr. Del Valle within a week to discuss lasix is necessary. His Procardia XL dose is increased to 60mg daily. Patient has already had vein mapping done and will need AV fistula done. Appointment is made for him to see Dr. Mcneil at [facility] at 10:20am on Sunday (2017). He's instructed to follow up with his PMD, assistant family teacher (Dr. Leslie), Smoke Inspector within 2 weeks. Date of Discharge: 09/10/17 <Romero De La Torre - Last Filed: 09/10/17 16:42> Minutes to complete discharge: 45 <Lynne Hernadez - Last Filed: 09/10/17 17:58> Discharge Summary Reason For Visit: UTI/ANEMIA/CONFUSION/INFLUENZA Current Active Problems Anemia (Chronic) Diastolic dysfunction (Chronic) - Home Medications Comprehensive Discharge Medication List: Ambulatory Orders Cholecalciferol (Vitamin D3) [Vitamin D3] 1,000 unit PO DAILY tablet 09/02/12 Clopidogrel Bisulfate [Clopidogrel] 75 mg PO HS #90 tablet 01/10/16 Carvedilol 12.5 mg PO BID 06/11/17 Ferrous Sulfate [Feosol] 325 mg PO DAILY ud 07/12/17 Docusate Sodium [Colace -] 300 mg PO HS 07/14/17 Insulin Glargine,Hum.rec.anlog [Lantus Solostar PEN -] 15 units SQ HS 07/14/17 Lidocaine 5% Patch [Lidoderm -] 1 patch TP DAILY #7 patch 07/15/17 Insulin Sliding Scale [Novolog Vial Sliding Scale -] 1 vial SQ TIDAC PRN Simvastatin 40 mg PO HS 07/23/17 Pantoprazole Sodium [Protonix -] 40 mg PO DAILY #30 tablet.ec 07/25/17 Sucralfate [Carafate -] 1 gm PO BID #60 tablet 07/25/17 Tamsulosin HCl [Flomax -] 0.4 mg PO HS cap.er.24h 07/25/17 Polyethylene Glycol 3350 [Miralax 119 gm Btl -] 17 gm PO DAILY 09/03/17 Nifedipine ER [Procardia XL -] 60 mg PO DAILY #30 tab.er.24 09/10/17 Oseltamivir Phosphate [Tamiflu] 30 mg PO BID #2 capsule 09/10/17 <Romero De La Torre - Last Filed: 09/10/17 16:42> - Home Medications Comprehensive Discharge Medication List: Ambulatory Orders Cholecalciferol (Vitamin D3) [Vitamin D3] 1,000 unit PO DAILY tablet 09/02/12 Clopidogrel Bisulfate [Clopidogrel] 75 mg PO HS #90 tablet 01/10/16 Carvedilol 12.5 mg PO BID 06/11/17 Ferrous Sulfate [Feosol] 325 mg PO DAILY ud 07/12/17 Docusate Sodium [Colace -] 300 mg PO HS 07/14/17 Insulin Glargine,Hum.rec.anlog [Lantus Solostar PEN -] 15 units SQ HS 07/14/17 Lidocaine 5% Patch [Lidoderm -] 1 patch TP DAILY #7 patch 07/15/17 Insulin Sliding Scale [Novolog Vial Sliding Scale -] 1 vial SQ TIDAC PRN Simvastatin 40 mg PO HS 07/23/17 Pantoprazole Sodium [Protonix -] 40 mg PO DAILY #30 tablet.ec 07/25/17 Sucralfate [Carafate -] 1 gm PO BID #60 tablet 07/25/17 Tamsulosin HCl [Flomax -] 0.4 mg PO HS cap.er.24h 07/25/17 Polyethylene Glycol 3350 [Miralax 119 gm Btl -] 17 gm PO DAILY 09/03/17 Nifedipine ER [Procardia XL -] 60 mg PO DAILY #30 tab.er.24 09/10/17 Oseltamivir Phosphate [Tamiflu] 30 mg PO BID #2 capsule 09/10/17 <Lynne Hernadez - Last Filed: 09/10/17 17:58> Condition: Critical - Instructions Diet, Activity, Other Instructions: #You were treated in the hospital for flu and urinary tract infection. #In the hospital, we found that you had an acute kidney injury on top of your chronic kidney disease. You were given IV fluids and the acute kidney injury is improving. You will need dialysis. Vein mapping has already been done and AV fistula is what you need next for getting ready for dialysis #We found that you have chronic anemia possibly due to your chronic kidney disease. Please follow up with Dr. Leslie #You were also found to have demand ischemia in your heart but it has resolved after fluid resuscitation. #We changed several medications while you were in the hospital, please bring this form to your primary care provider when you see them in the office. ################################################################################ #### You have a surgery scheduled with Dr. Mcneil at [facility] for AV fistula 10:20am on Sunday (09/14/2017) ################################################################################ #### Medication Changes: 1. Lasix is held due to acute kidney injury, please see Dr. Leslie and Dr. Del Valle within a week to see whether there's a need to restart lasix. 2. Procardia XL dose is increased to 60mg daily 3. Take tamiflu 30mg for 1 more day (2 more doses) Referrals: 1. Make an appointment with your primary care physician, Dr. Bernardo Del Valle within 2 weeks. 2. Cont. to follow up with your grocery store courtesy clerk, Dr. Ángel Murguia ([facility]) 3. Make an appointment with Dr. Isac Leslie to discuss 1. your chronic kidney injury 2. plan for dialysis Referrals: Isac Leslie MD [Staff Physician] - 1 Week Bernardo Del Valle MD [Primary Care Provider] - 1 Week Praful Mcneil MD [Staff Physician] - 1 Week (10:20am on Sunday (09/14/17) for AV fistula) Disposition: [facility] FACILITY This patient is new to me today: No Emergency Visit: No Critical Care patient: No - Discharge Referral Referred to [facility] No <Romero De La Torre - Last Filed: 09/10/17 16:42>
--- NOTE | 2017-09-10 17:36 | EKG ---
Test Reason : Blood Pressure : / mmHG Vent. Rate : 061 BPM Atrial Rate : 061 BPM P-R Int : 174 ms QRS Dur : 096 ms QT Int : 488 ms P-R-T Axes : 058 -20 163 degrees QTc Int : 491 ms NORMAL SINUS RHYTHM MINIMAL VOLTAGE CRITERIA FOR LVH, MAY BE NORMAL VARIANT UGO SEPTAL INFARCT (CITED ON OR BEFORE 23-JUL-2017) ABNORMAL ECG WHEN COMPARED WITH ECG OF 10-SEP-2017 03:52, NO SIGNIFICANT CHANGE WAS FOUND Confirmed by GERALD AZEVEDO MD ([id number]) on 09/10/2017 5:36:15 PM Referred By: Confirmed By:GERALD AZEVEDO MD
== END 2017-09-10 16:47 | DRG 871 ==
LOC: JER 17:31 → JERBED 19:48 → J2W 09-06 17:30
PROVIDERS: ADMIT Internal Medicine; ATTEND Internal Medicine
PROC: 30233N1 Transfusion of Nonautologous Red Blood Cells into Peripheral Vein, Percutaneous Approach (ICD-10-PCS; principal; 2017-09-05)
DX: A41.9 Sepsis, unspecified organism (principal); I50.33 Acute on chronic diastolic (congestive) heart failure; N39.0 Urinary tract infection, site not specified; N17.9 Acute kidney failure, unspecified; I24.8 Other forms of acute ischemic heart disease; E87.0 Hyperosmolality and hypernatremia; I13.0 Hypertensive heart and chronic kidney disease with heart failure and stage 1 through stage 4 chronic kidney disease, or unspecified chronic kidney disease; N18.4 Chronic kidney disease, stage 4 (severe); I25.10 Atherosclerotic heart disease of native coronary artery without angina pectoris; Z95.1 Presence of aortocoronary bypass graft; K21.9 Gastro-esophageal reflux disease without esophagitis; E78.5 Hyperlipidemia, unspecified; E11.22 Type 2 diabetes mellitus with diabetic chronic kidney disease; Z79.4 Long term (current) use of insulin; Z87.891 Personal history of nicotine dependence; J11.1 Influenza due to unidentified influenza virus with other respiratory manifestations; M54.9 Dorsalgia, unspecified; K59.00 Constipation, unspecified; N31.9 Neuromuscular dysfunction of bladder, unspecified; E11.51 Type 2 diabetes mellitus with diabetic peripheral angiopathy without gangrene; D63.1 Anemia in chronic kidney disease; N40.1 Benign prostatic hyperplasia with lower urinary tract symptoms; R33.8 Other retention of urine; I27.20 Pulmonary hypertension, unspecified; I36.1 Nonrheumatic tricuspid (valve) insufficiency; K29.60 Other gastritis without bleeding; I34.0 Nonrheumatic mitral (valve) insufficiency; B95.2 Enterococcus as the cause of diseases classified elsewhere; I45.81 Long QT syndrome
CPT/HCPCS: 36415; 36430; 36600; 71045-TC; 74018-TC-FY; 76775-TC; 80048; 80053; 81003; 81015; 82375; 82550; 82553; 82803; 82962; 83050; 83605; 83735; 83880; 84100; 84484; 85025; 85610; 85730; 86850; 86900; 86901; 86922; 87040; 87086; 87186; 93005; 93010; 93970-TC; 94761; 97116-GP; 97161-GP; 99285-25; G0463-25; P9038; P9058

== ENCOUNTER 2017-09-21 14:41 | Inpatient (IN) | payer OTHER, MEDICARE ==
--- NOTE | 2017-09-21 15:01 | PDOC ---
History of Present Illness - General Chief Complaint: Shortness of Breath Stated Complaint: SOB Time Seen by Provider: 09/21/17 15:01 - History of Present Illness Initial Comments: 09/21/17 15:51 Mr. Perea is a 71 yo male w/ pmh of ESRD (plan for A/V fistula in near future), IDDM, HTN, s/p 3x bypass, CHF presenting w/ shortness of breath and bilateral lower extremity swelling. Per history it was gradual in onset over the last 11 days and the SOB is exacerbated by exertion. Mr. Perea was admitted 09/05 with the flu and worsening kidney function - discharged to [facility] 09/10 for rehab for back pain. Mr. Perea has unfortunately not received his lasix as written by stencil cutter since admission to [place] and reports a 30 lb weight gain over this time period. The patient denies chest pain, headache and dizziness. Denies fever, chills, nausea, vomit, diarrhea and constipation. Denies dysuria, frequency, urgency and hematuria. Allergies: Tramadol, oxycodone, ticagrelor Past History - Past Medical History Allergies/Adverse Reactions: Allergies Allergy/AdvReac Type Severity Reaction Status Date / Time tramadol Allergy Verified 09/21/17 15:04 oxycodone HCl [From Percocet] AdvReac Intermediate nausea Verified 09/21/17 15: 04 ticagrelor [From BRILINTA] AdvReac Intermediate Verified 09/21/17 15:04 Home Medications: Ambulatory Orders Cholecalciferol (Vitamin D3) [Vitamin D3] 1,000 unit PO DAILY tablet 09/02/12 Clopidogrel Bisulfate [Clopidogrel] 75 mg PO HS #90 tablet 01/10/16 Carvedilol 12.5 mg PO BID 06/11/17 Ferrous Sulfate [Feosol] 325 mg PO DAILY ud 07/12/17 Docusate Sodium [Colace -] 300 mg PO HS 07/14/17 Insulin Glargine,Hum.rec.anlog [Lantus Solostar PEN -] 15 units SQ HS 07/14/17 Lidocaine 5% Patch [Lidoderm -] 1 patch TP DAILY #7 patch 07/15/17 Insulin Sliding Scale [Novolog Vial Sliding Scale -] 1 vial SQ TIDAC PRN Simvastatin 40 mg PO HS 07/23/17 Pantoprazole Sodium [Protonix -] 40 mg PO DAILY #30 tablet.ec 07/25/17 Sucralfate [Carafate -] 1 gm PO BID #60 tablet 07/25/17 Tamsulosin HCl [Flomax -] 0.4 mg PO HS cap.er.24h 07/25/17 Polyethylene Glycol 3350 [Miralax 119 gm Btl -] 17 gm PO DAILY 09/03/17 Nifedipine ER [Procardia XL -] 60 mg PO DAILY #30 tab.er.24 09/10/17 Oseltamivir Phosphate [Tamiflu] 30 mg PO BID #2 capsule 09/10/17 Anemia: Yes (taking iron) Asthma: No Cancer: No Cardiac Disorders: Yes (CAD, CABG, stents) CVA: No COPD: No CHF: No DVT: No Dementia: No Diabetes: Yes (x41 yrs) GI Disorders: Yes (GERD, G-I bleed) Disorders: No HTN: Yes Hypercholesterolemia: Yes Liver Disease: No Psychiatric Problems: Yes Seizures: No Thyroid Disease: No - Surgical History Abdominal Surgery: Yes (Left Inguinal Hernia Repair) Appendectomy: No Cardiac Surgery: Yes (Bypass Surgery 18 yrs ago, Followed by Stents placement x2 ) Cholecystectomy: No Lung Surgery: No Neurologic Surgery: No Orthopedic Surgery: Yes (Laminectomy) - Immunization History Immunization Up to Date: Yes - Suicide/Smoking/Psychosocial Hx Smoking History: Former smoker Have you smoked in the past 12 months: No If you are a former smoker, when did you quit?: 30YRS Hx Alcohol Use: No Drug/Substance Use Hx: No Substance Use Type: None Hx Substance Use Treatment: No Review of Systems - Review of Systems Comments:: 09/21/17 16:06 GENERAL/CONSTITUTIONAL: No fever or chills. No weakness. HEAD, EYES, EARS, NOSE AND THROAT: No change in vision. No ear pain or discharge. No sore throat. CARDIOVASCULAR: +Extreme shortness of breath on exertion. RESPIRATORY: No cough, wheezing, or hemoptysis. GASTROINTESTINAL: No nausea, vomiting, diarrhea or constipation. GENITOURINARY: No dysuria, frequency, or change in urination. MUSCULOSKELETAL: +Bilateral leg swelling as described SKIN: No rash NEUROLOGIC: No headache, vertigo, loss of consciousness, or change in strength/ sensation. ENDOCRINE: No increased thirst. No abnormal weight change HEMATOLOGIC/LYMPHATIC: No anemia, easy bleeding, or history of blood clots. ALLERGIC/IMMUNOLOGIC: No hives or skin allergy. *Physical Exam - Physical Exam Comments: 09/21/17 16:06 GENERAL: Awake, alert, and fully oriented, in no acute distress HEAD: No signs of trauma, normocephalic, atraumatic EYES: PERRLA, EOMI, sclera anicteric, conjunctiva clear ENT: Auricles normal inspection, hearing grossly normal, nares patent, oropharynx clear without exudates. Moist mucosa NECK: Normal ROM, supple, no lymphadenopathy, JVD, or masses LUNGS: +Crackles noted to lung bases bilateral HEART: Regular rate and rhythm, normal S1 and S2, no murmurs, rubs or gallops, peripheral pulses normal and equal bilaterally. ABDOMEN: Soft, nontender, normoactive bowel sounds. No guarding, no rebound. No masses EXTREMITIES: +4 pitting edema to legs bilaterally NEUROLOGICAL: Cranial nerves II through XII grossly intact. Normal speech, normal gait, no focal sensorimotor deficits SKIN: Warm, Dry, normal turgor, no rashes or lesions noted. ED Treatment Course - LABORATORY CBC & Chemistry Diagram: 09/21/17 15:42 09/21/17 15:42 Medical Decision Making - Medical Decision Making 09/21/17 16:45 Mr. Perea is a 71 yo male w/ pmh as described who presents w/ 30 lb weight gain / fluid overload. Patient has new onset SOB with significant pedal edema. Nephrology at bedside upon exam; 60 lasix recommended w/ basic labs and coag analysis. Will comply + CXR / EKG. Will admit for diuresis. 09/21/17 17:33 CXR revealed pulmonary vascular congestion with small bilateral pleural effusion consistent with history. 09/21/17 17:54 *DC/Admit/Observation/Transfer Diagnosis at time of Disposition: Fluid overload Qualifiers: Hypervolemia type: other Qualified Code(s): E87.79 - Other fluid overload CKD (chronic kidney disease) Qualifiers: Chronic kidney disease stage: unspecified stage Qualified Code(s): N18.9 - Chronic kidney disease, unspecified - Discharge Dispostion Admit: Yes - Referrals Referrals: Bernardo Del Valle MD [Primary Care Provider] - - Patient Instructions - Post Discharge Activity
[2017-09-21] MEDS ORDERED: FUROSEMIDE 40 MG/4 ML INJECTABLE VIAL IVPUSH ONE (15:37)
[2017-09-21 15:49] LABS: EOS % 1.6 % (0-4.5); HEMATOCRIT 24.2 % (35.4-49); HEMOGLOBIN 7.8 GM/dL (11.7-16.9); LYMPH % 8.3 % (8-40); MCHC 32.2 g/dl (32.0-35.9); MEAN CELL VOLUME 86.8 fl (80-96); MEAN PLT VOLUME 6.9 fl (7.5-11.1); MONO % 11.7 % (3.8-10.2); NEUT % 77.4 % (42.8-82.8); PLATELET COUNT 267 K/MM3 (134-434); RBC 2.78 M/mm3 (4.00-5.60); RDW 17.8 % (11.9-15.9); WHITE BLOOD COUNT 4.9 K/mm3 (4.0-10.0)
[2017-09-21 16:02] LABS: INR 1.31 (0.82-1.09); PROTHROMBIN TIME (PATIENT) 14.8 SEC (9.98-11.88)
[2017-09-21 16:05] LABS: ACTIVATED PTT 35.5 SECONDS (26.9-34.4)
--- NOTE | 2017-09-21 16:13 | PDOC ---
Attending Attestation - Resident Resident Name: Mikey Saeedorn - ED Attending Attestation I have performed the following: I have examined & evaluated the patient, The case was reviewed & discussed with the resident, I agree w/resident's findings & plan, Exceptions are as noted - HPI HPI: 09/21/17 16:13 71y M hx of ESRD (awaiting fistula), htn, cad s/p cabg, dm, CHF, presents with sob and bl LE edema. sob is worse with exertional, worsening gradually as well as his b/l LE edema. Pt is predialysis, and was supposed to be taking lasix but has not been gettin git from staff. pt denies hemopptysis, fever/chills, cp,sob , palpitations, lightheadeness. on arrival pt was noted to be tachypneic and hypoxic. pulm exam noted for rales b/l LE and pitting edema in the LE. no calf tenderness, suspect fluid overload will admitted for further management and diuresis - Physicial Exam PE: 09/28/17 08:11 see above - Medical Decision Making 09/28/17 08:11 see heather
[2017-09-21 16:22] LABS: ALBUMIN 2.9 g/dl (3.4-5.0); ALK PHOS 126 U/L (45-117); ANION GAP 11 (8-16); BILIRUBIN,TOTAL 0.8 mg/dL (0.2-1.0); BLOOD UREA NITROGEN 98 mg/dL (7-18); CALCIUM 7.8 mg/dL (8.5-10.1); CHLORIDE 108 mmol/L (98-107); CO2 20 mmol/L (21-32); CREATININE 4.3 mg/dL (0.7-1.3); GLUCOSE,RANDOM 252 mg/dL (74-106); POTASSIUM 4.3 mmol/L (3.5-5.1); SGOT/AST 19 U/L (15-37); SGPT/ALT 22 U/L (12-78); SODIUM 139 mmol/L (136-145); TOT PROT 6.8 g/dl (6.4-8.2)
--- NOTE | 2017-09-21 18:50 | CONSULT ---
Consult Consult Specialty:: Nephrology Reason for Consultation:: fluid overload - History of Present Illness Chief Complaint: shortness of breath History of Present Illness: Pt is a 71 year old male with pmhx of CKD who presents to the ER with shortness of breath and lower extremity edema. He was recently hospitalized for dehydration and for Influenza. At that time his diuretics were held and he was give fluids. He was supposed to restart diuretics after discharge however it seems he has not been on them. He complains of dyspnea. He denies chest pain. - History Source History Provided By: Patient, Medical Record - Past Medical History Cardio/Vascular: Yes: CAD, CHF, HTN, Hyperlipdemia, [place] Gastrointestinal: Yes: Constipation, GI Bleed Renal/: Yes: Renal Inusuff, Neurogenic Bladder Endocrine: Yes: Diabetes Mellitus - Past Surgical History Past Surgical History: Yes: Bypass (Lower extremity), CABG, Hernia Repair, Laminectomy, Stent (PCI) - Alcohol/Substance Use Hx Alcohol Use: No History of Substance Use: reports: None - Smoking History Smoking history: Former smoker Have you smoked in the past 12 months: No If you are a former smoker, when did you quit?: 30YRS - Social History Usual Living Arrangement: Longterm ADL: Support Services History of Recent Travel: No Home Medications - Allergies Allergies/Adverse Reactions: Allergies Allergy/AdvReac Type Severity Reaction Status Date / Time tramadol Allergy Verified 09/21/17 15:04 oxycodone HCl [From Percocet] AdvReac Intermediate nausea Verified 09/21/17 15: 04 ticagrelor [From BRILINTA] AdvReac Intermediate Verified 09/21/17 15:04 - Home Medications Home Medications: Ambulatory Orders Cholecalciferol (Vitamin D3) [Vitamin D3] 1,000 unit PO DAILY tablet 09/02/12 Clopidogrel Bisulfate [Clopidogrel] 75 mg PO HS #90 tablet 01/10/16 Carvedilol 12.5 mg PO BID 06/11/17 Ferrous Sulfate [Feosol] 325 mg PO DAILY ud 07/12/17 Docusate Sodium [Colace -] 300 mg PO HS 07/14/17 Insulin Glargine,Hum.rec.anlog [Lantus Solostar PEN -] 15 units SQ HS 07/14/17 Lidocaine 5% Patch [Lidoderm -] 1 patch TP DAILY #7 patch 07/15/17 Insulin Sliding Scale [Novolog Vial Sliding Scale -] 1 vial SQ TIDAC PRN Simvastatin 40 mg PO HS 07/23/17 Pantoprazole Sodium [Protonix -] 40 mg PO DAILY #30 tablet.ec 07/25/17 Sucralfate [Carafate -] 1 gm PO BID #60 tablet 07/25/17 Tamsulosin HCl [Flomax -] 0.4 mg PO HS cap.er.24h 07/25/17 Polyethylene Glycol 3350 [Miralax 119 gm Btl -] 17 gm PO DAILY 09/03/17 Nifedipine ER [Procardia XL -] 60 mg PO DAILY #30 tab.er.24 09/10/17 Oseltamivir Phosphate [Tamiflu] 30 mg PO BID #2 capsule 09/10/17 Family Disease History - Family Disease History Family Disease History: [place]: Mother, Sister Review of Systems - Review of Systems Constitutional: reports: No Symptoms Eyes: reports: No Symptoms HENT: reports: No Symptoms Neck: reports: No Symptoms Cardiovascular: reports: Edema Respiratory: reports: Cough, SOB, SOB on Exertion Gastrointestinal: reports: No Symptoms Genitourinary: reports: No Symptoms Integumentary: reports: No Symptoms Neurological: reports: No Symptoms Endocrine: reports: No Symptoms Hematology/Lymphatic: reports: No Symptoms Physical Exam Vital Signs: Vital Signs Temperature 98.0 F 09/21/17 18:38 Pulse Rate 58 L 09/21/17 18:38 Respiratory Rate 18 09/21/17 18:38 Blood Pressure 166/75 09/21/17 18:38 O2 Sat by Pulse Oximetry (%) 97 09/21/17 18:38 Constitutional: Yes: Calm Eyes: Yes: WNL HENT: Yes: WNL Cardiovascular: Yes: S1, S2 Respiratory: Yes: Rhonchi Gastrointestinal: Yes: Soft Renal/: Yes: Witt Present Musculoskeletal: Yes: WNL Edema: Yes Edema: LLE: 2+, RLE: 2+ Neurological: Yes: Oriented Psychiatric: Yes: Oriented Labs: CBC, BMP 09/21/17 15:42 09/21/17 15:42 Laboratory Tests 09/21/17 09/21/17 15:42 15:42 WBC 4.9 D Hgb 7.8 L D Plt Count 267 Sodium 139 Potassium 4.3 Chloride 108 H Carbon Dioxide 20 L Anion Gap 11 BUN 98 H Creatinine 4.3 H Random Glucose 252 H Imaging - Results Chest X-ray: Report Reviewed Problem List - Problems (1) Fluid overload Code(s): E87.70 - FLUID OVERLOAD, UNSPECIFIED Qualifiers: Hypervolemia type: other Qualified Code(s): E87.79 - Other fluid overload (2) CKD (chronic kidney disease) Code(s): N18.9 - CHRONIC KIDNEY DISEASE, UNSPECIFIED Qualifiers: Chronic kidney disease stage: unspecified stage Qualified Code(s): N18.9 - Chronic kidney disease, unspecified (3) Urinary retention Code(s): R33.9 - RETENTION OF URINE, UNSPECIFIED (4) Anemia Code(s): D64.9 - ANEMIA, UNSPECIFIED Qualifiers: Assessment/Plan Impression 1. CKD 2. anemia 3. HTN 4. Chol 5. DM 6. BPH 7. CAD 8. urinary retention with chronic witt 9. GI bleed 10. fluid overload Plan - will give and IV dose of lasix - check iron studies - cont with IV lasix on am - monitor urine output from witt - check iron studies - monitor volume status - discussed with ER team - discussed with medical team - discussed with Dr Fernandez who saw the pt in the office today - monitor bp - resume home meds - check phos in am - renal diet Dr Donovan
--- NOTE | 2017-09-21 18:56 | HP ---
<Isac Moser - Last Filed: 09/21/17 21:06> CHIEF COMPLAINT: edema, SOB PCP: HISTORY OF PRESENT ILLNESS: 71 year old male with a past medical history of ESRD (not on HD), IDDM, HTN, CHF , who was admitted previously several weeks ago with flu and back pain presents to the hospital for worsening shortness of breath and generalized edema. Patient states that when he was previously discharged from [facility], he was sent to a senior care on Lasix, but the senior care never gave him the lasix to take. He has not taken it since arriving at that senior care. Patient endorses a 30 pound weight gain over this time frame as well. Denies overt chest pain, nausea, vomiting, diarrhea, fevers, chills. ER course was notable for: (1) BP 165/75 (2) resp 28 (3) CXR vascular congestion Recent Travel:unknown PAST MEDICAL HISTORY: ESRD (not on HD), IDDM, HTN, CHF Social History: Smoking: quit 30 years ago Alcohol: socially Drugs: none Family History: Allergies tramadol Allergy (Verified 09/21/17 15:04) oxycodone HCl [From Percocet] Adverse Reaction (Intermediate, Verified 09/21/17 15:04) nausea ticagrelor [From BRILINTA] Adverse Reaction (Intermediate, Verified 09/21/17 15: 04) HOME MEDICATIONS: Home Medications Medication Instructions Recorded Cholecalciferol (Vitamin D3) 1,000 unit PO DAILY tablet 09/02/12 [Vitamin D3] Clopidogrel Bisulfate [Clopidogrel] 75 mg PO HS #90 tablet 01/10/16 Carvedilol 12.5 mg PO BID 06/11/17 Ferrous Sulfate [Feosol] 325 mg PO DAILY ud 07/12/17 Docusate Sodium [Colace -] 300 mg PO HS 07/14/17 Insulin Glargine,Hum.rec.anlog 15 units SQ HS 07/14/17 [Lantus Solostar PEN -] Lidocaine 5% Patch [Lidoderm -] 1 patch TP DAILY #7 patch 07/15/17 Insulin Sliding Scale [Novolog 1 vial SQ TIDAC PRN 07/23/17 Vial Sliding Scale -] Simvastatin 40 mg PO HS 07/23/17 Pantoprazole Sodium [Protonix -] 40 mg PO DAILY #30 tablet.ec 07/25/17 Sucralfate [Carafate -] 1 gm PO BID #60 tablet 07/25/17 Tamsulosin HCl [Flomax -] 0.4 mg PO HS cap.er.24h 07/25/17 Polyethylene Glycol 3350 [Miralax 17 gm PO DAILY 09/03/17 119 gm Btl -] Nifedipine ER [Procardia XL -] 60 mg PO DAILY #30 tab.er.24 09/10/17 Oseltamivir Phosphate [Tamiflu] 30 mg PO BID #2 capsule 09/10/17 REVIEW OF SYSTEMS CONSTITUTIONAL: weight gain Absent: fever, chills, diaphoresis, generalized weakness, malaise, loss of appetite, HEENT: Absent: rhinorrhea, nasal congestion, throat pain, throat swelling, difficulty swallowing, mouth swelling, ear pain, eye pain, visual changes CARDIOVASCULAR: peripheral edema Absent: chest pain, syncope, palpitations, irregular heart rate, lightheadedness , RESPIRATORY: shortness of breath, dyspnea with exertion Absent: cough, orthopnea, wheezing, stridor, hemoptysis GASTROINTESTINAL: Absent: abdominal pain, abdominal distension, nausea, vomiting, diarrhea, constipation, melena, hematochezia GENITOURINARY: Absent: dysuria, frequency, urgency, hesitancy, hematuria, flank pain, genital pain MUSCULOSKELETAL: Absent: myalgia, arthralgia, joint swelling, back pain, neck pain SKIN: Absent: rash, itching, pallor HEMATOLOGIC/IMMUNOLOGIC: Absent: easy bleeding, easy bruising, lymphadenopathy, frequent infections ENDOCRINE: Absent: unexplained weight gain, unexplained weight loss, heat intolerance, cold intolerance NEUROLOGIC: Absent: headache, focal weakness or paresthesias, dizziness, unsteady gait, seizure, mental status changes, bladder or bowel incontinence PSYCHIATRIC: Absent: anxiety, depression, suicidal or homicidal ideation, hallucinations. PHYSICAL EXAMINATION Vital Signs - 24 hr 09/21/17 09/21/17 09/21/17 14:45 15:04 16:00 Temperature 97.4 F L Pulse Rate 55 L Pulse Rate [ Apical] Respiratory 28 H Rate Blood Pressure 165/75 Blood Pressure [Right Arm] O2 Sat by Pulse 90 L 98 97 Oximetry (%) 09/21/17 18:38 Temperature 98.0 F Pulse Rate Pulse Rate [ 58 L Apical] Respiratory 18 Rate Blood Pressure Blood Pressure 166/75 [Right Arm] O2 Sat by Pulse 97 Oximetry (%) GENERAL: Awake, alert, and fully oriented, in no acute distress. HEAD: Normal with no signs of trauma. EYES: Pupils equal, round and reactive to light, extraocular movements intact, sclera anicteric, conjunctiva clear. No lid lag. EARS, NOSE, THROAT: Ears normal, nares patent, oropharynx clear without exudates. Moist mucous membranes. NECK: Normal range of motion, supple without lymphadenopathy LUNGS: Breath sounds equal, clear to auscultation bilaterally. mild bibasilar crackles noted on exam HEART: Regular rate and rhythm, normal S1 and S2 without murmur, rub or gallop. ABDOMEN: Soft, distended, nontender, normoactive bowel sounds, no guarding, no rebound, no masses. No hepatomegaly or splenomegaly. MUSCULOSKELETAL: Normal range of motion at all joints. No bony deformities or tenderness. No CVA tenderness. LOWER EXTREMITIES: 2+ pulses, warm, well-perfused. No calf tenderness. 2+ pitting edema noted bilateral legs NEUROLOGICAL: Cranial nerves II-XII intact. Normal speech. Normal gait. PSYCHIATRIC: Cooperative. Good eye contact. Appropriate mood and affect. SKIN: Warm, dry, normal turgor, no rashes or lesions noted, normal capillary refill. Laboratory Results - last 24 hr 09/21/17 09/21/17 09/21/17 15:42 15:42 15:42 WBC 4.9 D RBC 2.78 L Hgb 7.8 L D Hct 24.2 L MCV 86.8 MCH 28.0 MCHC 32.2 RDW 17.8 H Plt Count 267 MPV 6.9 L Neutrophils % 77.4 Lymphocytes % 8.3 D Monocytes % 11.7 H Eosinophils % 1.6 Basophils % 1.0 D PT with INR 14.80 H INR 1.31 H PTT (Actin FS) 35.5 H Sodium 139 Potassium 4.3 Chloride 108 H Carbon Dioxide 20 L Anion Gap 11 BUN 98 H Creatinine 4.3 H Creat Clearance w eGFR 13.68 Random Glucose 252 H Calcium 7.8 L Total Bilirubin 0.8 D AST 19 ALT 22 D Alkaline Phosphatase 126 H D Total Protein 6.8 Albumin 2.9 L D Home Medication List Medication Instructions Recorded Confirmed Type Cholecalciferol (Vitamin D3) 1,000 unit PO DAILY tablet 09/02/12 09/21/17 History [Vitamin D3] Clopidogrel Bisulfate [Clopidogrel] 75 mg PO HS #90 tablet 01/10/16 09/21/17 History Carvedilol 12.5 mg PO BID 06/11/17 09/21/17 History Docusate Sodium [Colace -] 300 mg PO HS 07/14/17 09/21/17 History Insulin Glargine,Hum.rec.anlog 15 units SQ HS 07/14/17 09/21/17 History [Lantus Solostar PEN -] Insulin Sliding Scale [Novolog 1 vial SQ TIDAC PRN 07/23/17 09/21/17 History Vial Sliding Scale -] Simvastatin 40 mg PO HS 07/23/17 09/21/17 History Polyethylene Glycol 3350 [Miralax 17 gm PO DAILY 09/03/17 09/21/17 History 119 gm Btl -] Active Medications Generic Name Dose Route Start Last Admin Trade Name Freq PRN Reason Stop Dose Admin Atorvastatin Calcium 20 mg 09/21/17 22:00 Lipitor - PO HS [facility] Carvedilol 12.5 mg 09/21/17 22:00 Coreg - PO BID [facility] Cholecalciferol 1,000 unit 09/22/17 10:00 Vitamin D3 - PO DAILY [facility] Citalopram Hydrobromide 20 mg 09/22/17 10:00 Celexa - PO DAILY [facility] Clopidogrel Bisulfate 75 mg 09/21/17 22:00 Plavix - PO HS [facility] Docusate Sodium 300 mg 09/21/17 22:00 Colace - PO HS [facility] Ferrous Sulfate 325 mg 09/22/17 10:00 Feosol - PO DAILY [facility] Furosemide 60 mg 09/22/17 06:00 Lasix Injection - IVPUSH BID@0600,1400 [facility] Gabapentin 100 mg 09/22/17 10:00 Neurontin - PO DAILY [facility] Heparin Sodium (Porcine) 5,000 unit 09/21/17 22:00 Heparin - SQ TID [facility] Insulin Aspart 1 vial 09/22/17 07:00 Novolog Vial Sliding Scale - SQ TIDAC [facility] Protocol Insulin Detemir 15 units 09/21/17 22:00 Levemir Vial SQ HS [facility] Nifedipine 60 mg 09/22/17 10:00 Procardia Xl - PO DAILY [facility] Pantoprazole Sodium 40 mg 09/22/17 10:00 Protonix - PO DAILY [facility] Polyethylene Glycol 17 gm 09/22/17 10:00 Miralax (For Daily Use) - PO DAILY [facility] Sucralfate 1 gm 09/21/17 22:00 Carafate - PO BID [facility] Tamsulosin HCl 0.4 mg 09/21/17 22:00 Flomax - PO HS [facility] ASSESSMENT/PLAN: 71 year old male with a past medical history of ESRD (not on HD), IDDM, HTN, CHF is admitted to the hospital for fluid retention 2/2 end-stage renal disease vs CHF #Fluid Retention: likely 2/2 ESRD vs CHF -patient makes urine, eduar is in -ED gave lasix 60mg IV once -CXR showed vascular congestion -Nephro consult appreciated Dr. Donovan -Lasix 60mg IV BID -Flomax 0.4 HS -strict I's/O's -daily weights #CHF: unlikely in this scenario but could be contributing -continue lasix 60 IV BID -f/u BNP -CXR: vascular congestion #Diabetes: insulin dependent, uncontrolled currently -Levemir 15U -ISS -BGMs #Hypertension: needs better control -resume meds -carvedilol 12.5 BID -Nifedipine 60mg PO QD #Hyperlipidemia: -continue atorvastatin 20mg HS #CAD: s/p bypass -continue clopidogrel #Anemia: Hgb 7.8 -continue ferrous sulfate #Depression/Anxiety: chronic -continue citalopram #FEN -No standing fluids -electrolytes within normal limits -renal diet #Prophylaxis -heparin 5000 subQ -on protonix #Disposition -Admit to obs Visit type - Emergency Visit Emergency Visit: Yes ED Registration Date: 09/21/17 Care time: The patient presented to the Emergency Department on the above date and was hospitalized for further evaluation of their emergent condition. - New Patient This patient is new to me today: Yes Date on this admission: 09/21/17 - Critical Care Critical Care patient: No <Lynne Hernadez - Last Filed: 09/21/17 23:32> \ Vital Signs Temperature 98.0 F 09/21/17 18:38 Pulse Rate 58 L 09/21/17 18:38 Respiratory Rate 18 09/21/17 18:38 Blood Pressure 166/75 09/21/17 18:38 O2 Sat by Pulse Oximetry (%) 97 09/21/17 18:38 CBCD WBC 4.9 K/mm3 (4.0-10.0) D 09/21/17 15:42 RBC 2.78 M/mm3 (4.00-5.60) L 09/21/17 15:42 Hgb 7.8 GM/dL (11.7-16.9) L D 09/21/17 15:42 Hct 24.2 % (35.4-49) L 09/21/17 15:42 MCV 86.8 fl (80-96) 09/21/17 15:42 MCHC 32.2 g/dl (32.0-35.9) 09/21/17 15:42 RDW 17.8 % (11.9-15.9) H 09/21/17 15:42 Plt Count 267 K/MM3 (134-434) 09/21/17 15:42 MPV 6.9 fl (7.5-11.1) L 09/21/17 15:42 CMP Sodium 139 mmol/L (136-145) 09/21/17 15:42 Potassium 4.3 mmol/L (3.5-5.1) 09/21/17 15:42 Chloride 108 mmol/L (98-107) H 09/21/17 15:42 Carbon Dioxide 20 mmol/L (21-32) L 09/21/17 15:42 Anion Gap 11 (8-16) 09/21/17 15:42 BUN 98 mg/dL (7-18) H 09/21/17 15:42 Creatinine 4.3 mg/dL (0.7-1.3) H 09/21/17 15:42 Creat Clearance w eGFR 13.68 (>60) 09/21/17 15:42 Random Glucose 252 mg/dL (74-106) H 09/21/17 15:42 Calcium 7.8 mg/dL (8.5-10.1) L 09/21/17 15:42 Total Bilirubin 0.8 mg/dL (0.2-1.0) D 09/21/17 15:42 AST 19 U/L (15-37) 09/21/17 15:42 ALT 22 U/L (12-78) D 09/21/17 15:42 Alkaline Phosphatase 126 U/L (45-117) H D 09/21/17 15:42 Total Protein 6.8 g/dl (6.4-8.2) 09/21/17 15:42 Albumin 2.9 g/dl (3.4-5.0) L D 09/21/17 15:42 Current Medications Generic Name Dose Route Start Last Admin Trade Name David PRN Reason Stop Dose Admin Atorvastatin Calcium 20 mg 09/21/17 22:00 Lipitor - PO HS [facility] Carvedilol 12.5 mg 09/21/17 22:00 Coreg - PO BID [facility] Cholecalciferol 1,000 unit 09/22/17 10:00 Vitamin D3 - PO DAILY [facility] Citalopram Hydrobromide 20 mg 09/22/17 10:00 Celexa - PO DAILY [facility] Clopidogrel Bisulfate 75 mg 09/21/17 22:00 Plavix - PO HS [facility] Docusate Sodium 300 mg 09/21/17 22:00 Colace - PO HS [facility] Ferrous Sulfate 325 mg 09/22/17 10:00 Feosol - PO DAILY [facility] Furosemide 60 mg 09/22/17 06:00 Lasix Injection - IVPUSH BID@0600,1400 [facility] Gabapentin 100 mg 09/22/17 10:00 Neurontin - PO DAILY [facility] Heparin Sodium (Porcine) 5,000 unit 09/21/17 22:00 Heparin - SQ TID [facility] Insulin Aspart 1 vial 09/22/17 07:00 Novolog Vial Sliding Scale - SQ TIDAC [facility] Protocol Insulin Detemir 15 units 09/21/17 22:00 Levemir Vial SQ HS [facility] Nifedipine 60 mg 09/22/17 10:00 Procardia Xl - PO DAILY [facility] Pantoprazole Sodium 40 mg 09/22/17 10:00 Protonix - PO DAILY [facility] Polyethylene Glycol 17 gm 09/22/17 10:00 Miralax (For Daily Use) - PO DAILY [facility] Sucralfate 1 gm 09/21/17 22:00 Carafate - PO BID [facility] Tamsulosin HCl 0.4 mg 09/21/17 22:00 Flomax - PO HS [facility] Home Medications Medication Instructions Recorded Cholecalciferol (Vitamin D3) 1,000 unit PO DAILY tablet 09/02/12 [Vitamin D3] Clopidogrel Bisulfate [Clopidogrel] 75 mg PO HS #90 tablet 01/10/16 Carvedilol 12.5 mg PO BID 06/11/17 Ferrous Sulfate [Feosol] 325 mg PO DAILY 07/12/17 Docusate Sodium [Colace -] 300 mg PO HS 07/14/17 Insulin Glargine,Hum.rec.anlog 15 units SQ HS 07/14/17 [Lantus Solostar PEN -] Lidocaine 5% Patch [Lidoderm -] 1 patch TP DAILY #7 patch 07/15/17 Insulin Sliding Scale [Novolog 1 vial SQ TIDAC PRN 07/23/17 Vial Sliding Scale -] Simvastatin 40 mg PO HS 07/23/17 Pantoprazole Sodium [Protonix -] 40 mg PO DAILY #30 tablet.ec 07/25/17 Sucralfate [Carafate -] 1 gm PO BID #60 tablet 07/25/17 Tamsulosin HCl [Flomax -] 0.4 mg PO HS cap.er.24h 07/25/17 Polyethylene Glycol 3350 [Miralax 17 gm PO DAILY 09/03/17 119 gm Btl -] Nifedipine ER [Procardia XL -] 60 mg PO DAILY #30 tab.er.24 09/10/17 # acute systolic CHF exacerbation # CKD
[2017-09-21] MEDS ORDERED: INSULIN SLIDING SCALE (NOVOLOG) 1 VIAL SQ SCH (22:00)
[2017-09-21] MEDS ORDERED: INSULIN DETEMIR 100 UNITS/ML MDV SQ ONE (23:20)
[2017-09-21] MEDS: INSULIN DETEMIR 100 UNITS/ML MDV SQ SCH (23:31)
[2017-09-21] MEDS: HEPARIN NA (PORCINE) 5,000 UNITS/ML 1ML VIAL SQ SCH (23:31)
[2017-09-21] MEDS: DOCUSATE SODIUM 100 MG CAPSULE (FP) PO SCH (23:32)
[2017-09-21] MEDS: CARVEDILOL 12.5 MG TABLET (FP) PO SCH (23:32)
[2017-09-21] MEDS: TAMSULOSIN HCL 0.4 MG CAP.ER.24H (FP) PO SCH (23:32)
[2017-09-21] MEDS: ATORVASTATIN CA 20 MG TABLET (FP) PO SCH (23:32)
[2017-09-21] MEDS: SUCRALFATE 1 GM TABLET (FP) PO SCH (23:32)
[2017-09-21] MEDS: CLOPIDOGREL BISULFATE 75 MG TABLET (FP) PO SCH (23:32)
[2017-09-22 01:01] VITALS: BMI 30.5
[2017-09-22] MEDS ORDERED: FUROSEMIDE 40 MG TABLET (FP) PO SCH (06:00)
[2017-09-22] MEDS: FUROSEMIDE 40 MG/4 ML INJECTABLE VIAL IVPUSH SCH ×2 (06:14→13:31)
[2017-09-22] MEDS: HEPARIN NA (PORCINE) 5,000 UNITS/ML 1ML VIAL SQ SCH ×3 (06:17→21:32)
[2017-09-22] MEDS: INSULIN SLIDING SCALE (NOVOLOG) 1 VIAL SQ SCH ×3 (06:40→16:45)
[2017-09-22] MEDS ORDERED: INSULIN (NOVOLOG) ASPART 100 UNITS/ML 10ML VIAL ONE ×3 (06:51→16:29)
[2017-09-22 08:18] LABS: BASO % 0.6 % (0-2.0); EOS % 1.5 % (0-4.5); HEMATOCRIT 21.9 % (35.4-49); HEMOGLOBIN 7.2 GM/dL (11.7-16.9); LYMPH % 8.5 % (8-40); MCH 28.5 pg (25.7-33.7); MCHC 32.9 g/dl (32.0-35.9); MEAN CELL VOLUME 86.5 fl (80-96); MEAN PLT VOLUME 6.6 fl (7.5-11.1); MONO % 10.1 % (3.8-10.2); NEUT % 79.3 % (42.8-82.8); PLATELET COUNT 249 K/MM3 (134-434); RBC 2.53 M/mm3 (4.00-5.60); RDW 17.6 % (11.9-15.9); WHITE BLOOD COUNT 4.8 K/mm3 (4.0-10.0)
[2017-09-22 08:54] LABS: CHLORIDE 110 mmol/L (98-107); POTASSIUM 4.4 mmol/L (3.5-5.1); SODIUM 142 mmol/L (136-145)
[2017-09-22 09:02] LABS: ALBUMIN 2.7 g/dl (3.4-5.0); ALK PHOS 115 U/L (45-117); ANION GAP 10 (8-16); BILIRUBIN,TOTAL 0.5 mg/dL (0.2-1.0); BLOOD UREA NITROGEN 100 mg/dL (7-18); CALCIUM 7.5 mg/dL (8.5-10.1); CO2 22 mmol/L (21-32); CREATININE 4.5 mg/dL (0.7-1.3); GLUCOSE,RANDOM 151 mg/dL (74-106); MAGNESIUM 2.2 mg/dL (1.8-2.4); PHOSPHOROUS 4.7 mg/dL (2.5-4.9); SGOT/AST 16 U/L (15-37); SGPT/ALT 20 U/L (12-78); TOT PROT 6.5 g/dl (6.4-8.2)
[2017-09-22] MEDS: POLYETHYLENE GLYCOL 3350 119 GM BTL PO SCH (09:23)
[2017-09-22] MEDS: FERROUS SO4 325 MG TABLET (FP) PO SCH (09:24)
[2017-09-22] MEDS: CHOLECALCIFEROL (VITAMIN D3) 1,000 UNIT TABLET (FP) PO SCH (09:24)
[2017-09-22] MEDS: GABAPENTIN 100 MG CAPSULE (FP) PO SCH (09:24)
[2017-09-22] MEDS: CITALOPRAM HYDROBROMIDE 20 MG TABLET (FP) PO SCH (09:24)
[2017-09-22] MEDS: PANTOPRAZOLE 40 MG TABLET (FP) PO SCH (09:24)
[2017-09-22] MEDS: CARVEDILOL 12.5 MG TABLET (FP) PO SCH ×2 (09:24→21:32)
[2017-09-22] MEDS: SUCRALFATE 1 GM TABLET (FP) PO SCH ×2 (09:25→21:32)
[2017-09-22] MEDS ORDERED: PT OWN MED DRAWER 7, Y5N ONE (09:28)
[2017-09-22] MEDS: NIFEdipine E.R 60 MG TABLET (UD) PO SCH (10:36)
--- NOTE | 2017-09-22 12:14 | EKG ---
Test Reason : Blood Pressure : / mmHG Vent. Rate : 058 BPM Atrial Rate : 058 BPM P-R Int : 182 ms QRS Dur : 096 ms QT Int : 478 ms P-R-T Axes : 062 -12 188 degrees QTc Int : 469 ms SINUS BRADYCARDIA WITH PREMATURE SUPRAVENTRICULAR COMPLEXES LEFT VENTRICULAR HYPERTROPHY WITH REPOLARIZATION ABNORMALITY CANNOT RULE OUT SEPTAL INFARCT (CITED ON OR BEFORE 23-JUL-2017) ABNORMAL ECG WHEN COMPARED WITH ECG OF 10-SEP-2017 15:49, PREMATURE SUPRAVENTRICULAR COMPLEXES ARE NOW PRESENT NONSPECIFIC T WAVE ABNORMALITY NO LONGER EVIDENT IN ANTERIOR LEADS INVERTED T WAVES HAVE REPLACED NONSPECIFIC T WAVE ABNORMALITY IN LATERAL LEADS Confirmed by HUMBERTO ROSALES, SOFY ([id number]) on 09/22/2017 12:14:12 PM Referred By: Confirmed By:SOFY PAUL MD
--- NOTE | 2017-09-22 16:48 | PN ---
Progress Note, Physician History of Present Illness: Pt seen and examined at bedside. He appears comfortable. He says that his breathing has improved. - Current Medication List Current Medications: Active Medications Atorvastatin Calcium (Lipitor -) 20 mg PO HS [facility] Last Admin: 09/21/17 23:32 Dose: 20 mg Carvedilol (Coreg -) 12.5 mg PO BID [facility] Last Admin: 09/22/17 09:24 Dose: 12.5 mg Cholecalciferol (Vitamin D3 -) 1,000 unit PO DAILY [facility] Last Admin: 09/22/17 09:24 Dose: 1,000 unit Citalopram Hydrobromide (Celexa -) 20 mg PO DAILY [facility] Last Admin: 09/22/17 09:24 Dose: 20 mg Clopidogrel Bisulfate (Plavix -) 75 mg PO HS [facility] Last Admin: 09/21/17 23:32 Dose: 75 mg Docusate Sodium (Colace -) 300 mg PO HS [facility] Last Admin: 09/21/17 23:32 Dose: 300 mg Ferrous Sulfate (Feosol -) 325 mg PO DAILY [facility] Last Admin: 09/22/17 09:24 Dose: 325 mg Furosemide (Lasix Injection -) 60 mg IVPUSH BID@0600,1400 [facility] Last Admin: 09/22/17 13:31 Dose: 60 mg Gabapentin (Neurontin -) 100 mg PO DAILY [facility] Last Admin: 09/22/17 09:24 Dose: 100 mg Heparin Sodium (Porcine) (Heparin -) 5,000 unit SQ TID [facility] Last Admin: 09/22/17 13:31 Dose: 5,000 unit Insulin Aspart (Novolog Vial Sliding Scale -) 1 vial SQ TIDAC [facility] PRN Reason: Protocol Last Admin: 09/22/17 16:45 Dose: 2 units Insulin Detemir (Levemir Vial) 15 units SQ HS [facility] Last Admin: 09/21/17 23:31 Dose: 15 units Nifedipine (Procardia Xl -) 60 mg PO DAILY [facility] Last Admin: 09/22/17 10:36 Dose: 60 mg Pantoprazole Sodium (Protonix -) 40 mg PO DAILY [facility] Last Admin: 09/22/17 09:24 Dose: 40 mg Polyethylene Glycol (Miralax (For Daily Use) -) 17 gm PO DAILY [facility] Last Admin: 09/22/17 09:23 Dose: 17 gm Sucralfate (Carafate -) 1 gm PO BID [facility] Last Admin: 09/22/17 09:25 Dose: 1 gm Tamsulosin HCl (Flomax -) 0.4 mg PO [facility] Last Admin: 09/21/17 23:32 Dose: 0.4 mg - Objective Vital Signs: Vital Signs Temperature 98.2 F 09/22/17 14:39 Pulse Rate 61 09/22/17 14:39 Respiratory Rate 18 09/22/17 08:00 Blood Pressure 151/70 09/22/17 14:39 O2 Sat by Pulse Oximetry (%) 96 09/22/17 10:00 Constitutional: Yes: Calm Eyes: Yes: Conjunctiva Clear HENT: Yes: Atraumatic Cardiovascular: Yes: S1, S2 Respiratory: Yes: On Nasal O2 Gastrointestinal: Yes: Soft Genitourinary: Yes: WNL Musculoskeletal: Yes: WNL Edema: Yes Edema: LLE: 1+, RLE: 1+ Neurological: Yes: Oriented Psychiatric: Yes: Oriented Labs: CBC, BMP 09/22/17 07:00 09/22/17 07:00 INR, PTT INR 1.31 (0.82-1.09) H 09/21/17 15:42 Problem List - Problems (1) Fluid overload Code(s): E87.70 - FLUID OVERLOAD, UNSPECIFIED Qualifiers: Hypervolemia type: other Qualified Code(s): E87.79 - Other fluid overload (2) CKD (chronic kidney disease) Code(s): N18.9 - CHRONIC KIDNEY DISEASE, UNSPECIFIED Qualifiers: Chronic kidney disease stage: unspecified stage Qualified Code(s): N18.9 - Chronic kidney disease, unspecified (3) Urinary retention Code(s): R33.9 - RETENTION OF URINE, UNSPECIFIED (4) Anemia Code(s): D64.9 - ANEMIA, UNSPECIFIED Qualifiers: Assessment/Plan Current Medications Generic Name Dose Route Start Last Admin Trade Name Freq PRN Reason Stop Dose Admin Atorvastatin Calcium 20 mg 09/21/17 22:00 09/21/17 23:32 Lipitor - PO 20 mg HS [facility] Administration Carvedilol 12.5 mg 09/21/17 22:00 09/22/17 09:24 Coreg - PO 12.5 mg BID [facility] Administration Cholecalciferol 1,000 unit 09/22/17 10:00 09/22/17 09:24 Vitamin D3 - PO 1,000 unit DAILY [facility] Administration Citalopram Hydrobromide 20 mg 09/22/17 10:00 09/22/17 09:24 Celexa - PO 20 mg DAILY [facility] Administration Clopidogrel Bisulfate 75 mg 09/21/17 22:00 09/21/17 23:32 Plavix - PO 75 mg HS [facility] Administration Docusate Sodium 300 mg 09/21/17 22:00 09/21/17 23:32 Colace - PO 300 mg HS [facility] Administration Ferrous Sulfate 325 mg 09/22/17 10:00 09/22/17 09:24 Feosol - PO 325 mg DAILY [facility] Administration Furosemide 60 mg 09/22/17 06:00 09/22/17 13:31 Lasix Injection - IVPUSH 60 mg BID@0600,1400 [facility] Administration Gabapentin 100 mg 09/22/17 10:00 09/22/17 09:24 Neurontin - PO 100 mg DAILY [facility] Administration Heparin Sodium (Porcine) 5,000 unit 09/21/17 22:00 09/22/17 13:31 Heparin - SQ 5,000 unit TID [facility] Administration Insulin Aspart 1 vial 09/22/17 07:00 09/22/17 16:45 Novolog Vial Sliding Scale - SQ 2 units TIDAC [facility] Administration Protocol Insulin Detemir 15 units 09/21/17 22:00 09/21/17 23:31 Levemir Vial SQ 15 units HS [facility] Administration Nifedipine 60 mg 09/22/17 10:00 09/22/17 10:36 Procardia Xl - PO 60 mg DAILY [facility] Administration Pantoprazole Sodium 40 mg 09/22/17 10:00 09/22/17 09:24 Protonix - PO 40 mg DAILY [facility] Administration Polyethylene Glycol 17 gm 09/22/17 10:00 09/22/17 09:23 Miralax (For Daily Use) - PO 17 gm DAILY [facility] Administration Sucralfate 1 gm 09/21/17 22:00 09/22/17 09:25 Carafate - PO 1 gm BID [facility] Administration Tamsulosin HCl 0.4 mg 09/21/17 22:00 09/21/17 23:32 Flomax - PO 0.4 mg HS [facility] Administration Laboratory Tests 09/22/17 07:00 Phosphorus 4.7 Magnesium 2.2 Impression 1. CKD 2. anemia 3. HTN 4. Chol 5. DM 6. BPH 7. CAD 8. urinary retention with chronic witt 9. GI bleed 10. fluid overload Plan - cont with lasix - repeat labs in am - monitor urine output - monitor hg - cont current meds Dr Donovan
[2017-09-22] MEDS: ATORVASTATIN CA 20 MG TABLET (FP) PO SCH (21:32)
[2017-09-22] MEDS: TAMSULOSIN HCL 0.4 MG CAP.ER.24H (FP) PO SCH (21:32)
[2017-09-22] MEDS: CLOPIDOGREL BISULFATE 75 MG TABLET (FP) PO SCH (21:32)
[2017-09-22] MEDS: DOCUSATE SODIUM 100 MG CAPSULE (FP) PO SCH (21:32)
[2017-09-22] MEDS: INSULIN DETEMIR 100 UNITS/ML MDV SQ SCH (21:37)
--- NOTE | 2017-09-22 22:19 | PN ---
Physical Exam: SUBJECTIVE: Patient seen and examined Patient is feeling better, breathing better, feels his legs are so heavy. OBJECTIVE: Vital Signs Temperature 98.2 F 09/22/17 14:39 Pulse Rate 61 09/22/17 14:39 Respiratory Rate 18 09/22/17 08:00 Blood Pressure 151/70 09/22/17 14:39 O2 Sat by Pulse Oximetry (%) 96 09/22/17 10:00 GENERAL: The patient is awake, alert, and fully oriented, in no acute distress. HEAD: Normal with no signs of trauma. EYES: PERRL, extraocular movements intact, sclera anicteric, conjunctiva clear. ENT: Ears normal, oropharynx clear without exudates, moist mucous membranes. NECK: Trachea midline, full range of motion, supple. LUNGS: decreased BS BL, no wheezes, no crackles, no accessory muscle use. HEART: Regular rate and rhythm, S1, S2 without murmur, rub or gallop. ABDOMEN: Soft, nontender, nondistended, normoactive bowel sounds, no guarding, no rebound, no hepatosplenomegaly, no masses. EXTREMITIES: 2+ pulses, warm, well-perfused, edema 3 plus BL NEUROLOGICAL: Cranial nerves II through XII grossly intact. Normal speech, gait not observed. PSYCH: Normal mood, normal affect. SKIN: Warm, dry, normal turgor, no rashes or lesions noted : positive for Witt Home Medications Medication Instructions Recorded Cholecalciferol (Vitamin D3) 1,000 unit PO DAILY tablet 09/02/12 [Vitamin D3] Clopidogrel Bisulfate [Clopidogrel] 75 mg PO HS #90 tablet 01/10/16 Carvedilol 12.5 mg PO BID 06/11/17 Ferrous Sulfate [Feosol] 325 mg PO DAILY ud 07/12/17 Docusate Sodium [Colace -] 300 mg PO HS 07/14/17 Insulin Glargine,Hum.rec.anlog 15 units SQ HS 07/14/17 [Lantus Solostar PEN -] Lidocaine 5% Patch [Lidoderm -] 1 patch TP DAILY #7 patch 07/15/17 Insulin Sliding Scale [Novolog 1 vial SQ TIDAC PRN 07/23/17 Vial Sliding Scale -] Simvastatin 40 mg PO HS 07/23/17 Pantoprazole Sodium [Protonix -] 40 mg PO DAILY #30 tablet.ec 12/20/17 Sucralfate [Carafate -] 1 gm PO BID #60 tablet 07/25/17 Tamsulosin HCl [Flomax -] 0.4 mg PO HS cap.er.24h 07/25/17 Polyethylene Glycol 3350 [Miralax 17 gm PO DAILY 09/03/17 119 gm Btl -] Nifedipine ER [Procardia XL -] 60 mg PO DAILY #30 tab.er.24 09/10/17 Active Medications Generic Name Dose Route Start Last Admin Trade Name Freq PRN Reason Stop Dose Admin Atorvastatin Calcium 20 mg 09/21/17 22:00 09/22/17 21:32 Lipitor - PO 20 mg HS ROSIE Administration Carvedilol 12.5 mg 09/21/17 22:00 09/22/17 21:32 Coreg - PO 12.5 mg BID ROSIE Administration Cholecalciferol 1,000 unit 09/22/17 10:00 09/22/17 09:24 Vitamin D3 - PO 1,000 unit DAILY ROSIE Administration Citalopram Hydrobromide 20 mg 09/22/17 10:00 09/22/17 09:24 Celexa - PO 20 mg DAILY ROSIE Administration Clopidogrel Bisulfate 75 mg 09/21/17 22:00 09/22/17 21:32 Plavix - PO 75 mg HS ROSIE Administration Docusate Sodium 300 mg 09/21/17 22:00 09/22/17 21:32 Colace - PO 300 mg HS ROSIE Administration Ferrous Sulfate 325 mg 09/22/17 10:00 09/22/17 09:24 Feosol - PO 325 mg DAILY ROSIE Administration Furosemide 60 mg 09/22/17 06:00 09/22/17 13:31 Lasix Injection - IVPUSH 60 mg BID@0600,1400 ROSIE Administration Gabapentin 100 mg 09/22/17 10:00 09/22/17 09:24 Neurontin - PO 100 mg DAILY ROSIE Administration Heparin Sodium (Porcine) 5,000 unit 09/21/17 22:00 09/22/17 21:32 Heparin - SQ 5,000 unit TID ROSIE Administration Insulin Aspart 1 vial 09/22/17 07:00 09/22/17 16:45 Novolog Vial Sliding Scale - SQ 2 units TIDAC ROSIE Administration Protocol Insulin Detemir 15 units 09/21/17 22:00 09/22/17 21:37 Levemir Vial SQ 15 units HS ROSIE Administration Nifedipine 60 mg 09/22/17 10:00 09/22/17 10:36 Procardia Xl - PO 60 mg DAILY ROSIE Administration Pantoprazole Sodium 40 mg 09/22/17 10:00 09/22/17 09:24 Protonix - PO 40 mg DAILY ROSIE Administration Polyethylene Glycol 17 gm 09/22/17 10:00 09/22/17 09:23 Miralax (For Daily Use) - PO 17 gm DAILY ROSIE Administration Sucralfate 1 gm 09/21/17 22:00 09/22/17 21:32 Carafate - PO 1 gm BID ROSIE Administration Tamsulosin HCl 0.4 mg 09/21/17 22:00 09/22/17 21:32 Flomax - PO 0.4 mg HS ROSIE Administration Intake & Output 09/20/17 09/21/17 23:59 23:59 Intake Total 100 Output Total 1600 Balance -1500 Weight 99.79 kg CXR: BL pleural effusion ASSESSMENT/PLAN: Patient is a 71 year old male with a past medical history of CKD stage 5 , IDDM , HTN, CHF is admitted to the hospital for fluid retention of 30 lbs weight gain. # Acute Fluid Overload with 30LB weight gain ,continue witt and Continue Lasix 60mg IV BID , on the case. Strict I's/O's daily weights. #Bl pleural effusion : with hx of CHF , will continue Lasix 60mg BID IV #Diabetes: insulin dependent, uncontrolled currently, continue levemir 15U, bgm #Hypertension Uncontrolled : carvedilol 12.5 BID, Nifedipine 60mg PO QD, and lasix #Hyperlipidemia: continue atorvastatin 20mg HS #CAD: s/p bypass continue clopidogrel #Anemia: Hgb 7.8 continue ferrous sulfate #Depression/Anxiety: continue citalopram # Hx of BPH on Flomax continue Prophylaxis DVT: heparin 5000 subQ GI Px: protonix Visit type - Emergency Visit Emergency Visit: Yes ED Registration Date: 09/22/17 Care time: The patient presented to the Emergency Department on the above date and was hospitalized for further evaluation of their emergent condition. - New Patient This patient is new to me today: Yes Date on this admission: 09/22/17 - Critical Care Critical Care patient: No - Discharge Referral Referred to [facility] No
[2017-09-23] MEDS: FUROSEMIDE 40 MG/4 ML INJECTABLE VIAL IVPUSH SCH ×2 (06:03→13:05)
[2017-09-23] MEDS: HEPARIN NA (PORCINE) 5,000 UNITS/ML 1ML VIAL SQ SCH ×3 (06:04→21:49)
[2017-09-23] MEDS: INSULIN SLIDING SCALE (NOVOLOG) 1 VIAL SQ SCH ×3 (06:38→17:19)
[2017-09-23] MEDS ORDERED: INSULIN (NOVOLOG) ASPART 100 UNITS/ML 10ML VIAL ONE (07:12)
[2017-09-23] MEDS: FERROUS SO4 325 MG TABLET (FP) PO SCH (10:16)
[2017-09-23] MEDS: NIFEdipine E.R 60 MG TABLET (UD) PO SCH (10:16)
[2017-09-23] MEDS: POLYETHYLENE GLYCOL 3350 119 GM BTL PO SCH (10:16)
[2017-09-23] MEDS: CHOLECALCIFEROL (VITAMIN D3) 1,000 UNIT TABLET (FP) PO SCH (10:16)
[2017-09-23] MEDS: CITALOPRAM HYDROBROMIDE 20 MG TABLET (FP) PO SCH (10:16)
[2017-09-23] MEDS: GABAPENTIN 100 MG CAPSULE (FP) PO SCH (10:16)
[2017-09-23] MEDS: PANTOPRAZOLE 40 MG TABLET (FP) PO SCH (10:16)
[2017-09-23] MEDS: CARVEDILOL 12.5 MG TABLET (FP) PO SCH ×2 (10:16→21:49)
[2017-09-23] MEDS: SUCRALFATE 1 GM TABLET (FP) PO SCH ×2 (10:22→21:49)
--- NOTE | 2017-09-23 16:02 | PN ---
Progress Note (short form) - Note Progress Note: Patient is feeling better with no acute distress. No fever or chills, stated that he is tired since was not able to sleep last night. Vital Signs Temperature 98.6 F 09/23/17 06:16 Pulse Rate 60 09/23/17 10:00 Respiratory Rate 20 09/23/17 10:00 Blood Pressure 148/66 09/23/17 10:00 O2 Sat by Pulse Oximetry (%) 96 09/23/17 10:00 GENERAL: The patient is awake, alert, and fully oriented, in no acute distress. HEAD: Normal with no signs of trauma. EYES: PERRL, extraocular movements intact, sclera anicteric, conjunctiva clear. ENT: Ears normal, oropharynx clear without exudates, moist mucous membranes. NECK: Trachea midline, full range of motion, supple. LUNGS: decreased BS BL, no wheezes, no crackles, no accessory muscle use. HEART: Regular rate and rhythm, S1, S2 without murmur, rub or gallop. ABDOMEN: Soft, nontender, nondistended, normoactive bowel sounds, no guarding, no rebound, no hepatosplenomegaly, no masses. EXTREMITIES: 2+ pulses, warm, well-perfused, edema 2 plus BL NEUROLOGICAL: Cranial nerves II through XII grossly intact. Normal speech, gait not observed. PSYCH: Normal mood, normal affect. SKIN: Warm, dry, normal turgor, no rashes or lesions noted : positive for Witt CBCD WBC 4.8 K/mm3 (4.0-10.0) 09/22/17 07:00 RBC 2.53 M/mm3 (4.00-5.60) L 09/22/17 07:00 Hgb 7.2 GM/dL (11.7-16.9) L 09/22/17 07:00 Hct 21.9 % (35.4-49) L 09/22/17 07:00 MCV 86.5 fl (80-96) 09/22/17 07:00 MCHC 32.9 g/dl (32.0-35.9) 09/22/17 07:00 RDW 17.6 % (11.9-15.9) H 09/22/17 07:00 Plt Count 249 K/MM3 (134-434) 09/22/17 07:00 MPV 6.6 fl (7.5-11.1) L 09/22/17 07:00 CMP Sodium 142 mmol/L (136-145) 09/22/17 07:00 Potassium 4.4 mmol/L (3.5-5.1) 09/22/17 07:00 Chloride 110 mmol/L (98-107) H 09/22/17 07:00 Carbon Dioxide 22 mmol/L (21-32) 09/22/17 07:00 Anion Gap 10 (8-16) 09/22/17 07:00 BUN 100 mg/dL (7-18) H 09/22/17 07:00 Creatinine 4.5 mg/dL (0.7-1.3) H 09/22/17 07:00 Creat Clearance w eGFR 12.98 (>60) 09/22/17 07:00 Random Glucose 151 mg/dL (74-106) H D 09/22/17 07:00 Calcium 7.5 mg/dL (8.5-10.1) L 09/22/17 07:00 Total Bilirubin 0.5 mg/dL (0.2-1.0) D 09/22/17 07:00 AST 16 U/L (15-37) 09/22/17 07:00 ALT 20 U/L (12-78) 09/22/17 07:00 Alkaline Phosphatase 115 U/L (45-117) 09/22/17 07:00 Total Protein 6.5 g/dl (6.4-8.2) 09/22/17 07:00 Albumin 2.7 g/dl (3.4-5.0) L 09/22/17 07:00 Current Medications Generic Name Dose Route Start Last Admin Trade Name Freq PRN Reason Stop Dose Admin Atorvastatin Calcium 20 mg 09/21/17 22:00 09/22/17 21:32 Lipitor - PO 20 mg HS ROSIE Administration Carvedilol 12.5 mg 09/21/17 22:00 09/23/17 10:16 Coreg - PO 12.5 mg BID ROSIE Administration Cholecalciferol 1,000 unit 09/22/17 10:00 09/23/17 10:16 Vitamin D3 - PO 1,000 unit DAILY ROSIE Administration Citalopram Hydrobromide 20 mg 09/22/17 10:00 09/23/17 10:16 Celexa - PO 20 mg DAILY ROSIE Administration Clopidogrel Bisulfate 75 mg 09/21/17 22:00 09/22/17 21:32 Plavix - PO 75 mg HS ROSIE Administration Docusate Sodium 300 mg 09/21/17 22:00 09/22/17 21:32 Colace - PO 300 mg HS ROSIE Administration Ferrous Sulfate 325 mg 09/22/17 10:00 09/23/17 10:16 Feosol - PO 325 mg DAILY ROSIE Administration Furosemide 60 mg 09/22/17 06:00 09/23/17 13:05 Lasix Injection - IVPUSH 60 mg BID@0600,1400 ROSIE Administration Gabapentin 100 mg 09/22/17 10:00 09/23/17 10:16 Neurontin - PO 100 mg DAILY ROSIE Administration Heparin Sodium (Porcine) 5,000 unit 09/21/17 22:00 09/23/17 13:05 Heparin - SQ 5,000 unit TID [facility] Administration Insulin Aspart 1 vial 09/22/17 07:00 09/23/17 13:05 Novolog Vial Sliding Scale - SQ Not Given TIDAC [facility] Protocol Insulin Detemir 15 units 09/21/17 22:00 09/22/17 21:37 Levemir Vial SQ 15 units HS [facility] Administration Nifedipine 60 mg 09/22/17 10:00 09/23/17 10:16 Procardia Xl - PO 60 mg DAILY ROSIE Administration Pantoprazole Sodium 40 mg 09/22/17 10:00 09/23/17 10:16 Protonix - PO 40 mg DAILY ROSIE Administration Polyethylene Glycol 17 gm 09/22/17 10:00 09/23/17 10:16 Miralax (For Daily Use) - PO 17 gm DAILY ROSIE Administration Sucralfate 1 gm 09/21/17 22:00 09/23/17 10:22 Carafate - PO 1 gm BID ROSIE Administration Tamsulosin HCl 0.4 mg 09/21/17 22:00 09/22/17 21:32 Flomax - PO 0.4 mg HS ROSIE Administration Home Medications Medication Instructions Recorded Cholecalciferol (Vitamin D3) 1,000 unit PO DAILY tablet 09/02/12 [Vitamin D3] Clopidogrel Bisulfate [Clopidogrel] 75 mg PO HS #90 tablet 01/10/16 Carvedilol 12.5 mg PO BID 06/11/17 Ferrous Sulfate [Feosol] 325 mg PO DAILY ud 07/12/17 Docusate Sodium [Colace -] 300 mg PO HS 07/14/17 Insulin Glargine,Hum.rec.anlog 15 units SQ HS 07/14/17 [Lantus Solostar PEN -] Lidocaine 5% Patch [Lidoderm -] 1 patch TP DAILY #7 patch 07/15/17 Insulin Sliding Scale [Novolog 1 vial SQ TIDAC PRN 07/23/17 Vial Sliding Scale -] Simvastatin 40 mg PO HS 07/23/17 Pantoprazole Sodium [Protonix -] 40 mg PO DAILY #30 tablet.ec 07/25/17 Sucralfate [Carafate -] 1 gm PO BID #60 tablet 07/25/17 Tamsulosin HCl [Flomax -] 0.4 mg PO HS cap.er.24h 07/25/17 Polyethylene Glycol 3350 [Miralax 17 gm PO DAILY 09/03/17 119 gm Btl -] Nifedipine ER [Procardia XL -] 60 mg PO DAILY #30 tab.er.24 09/10/17 Intake & Output 09/20/17 09/21/17 09/22/17 09/23/17 23:59 23:59 23:59 23:59 Intake Total 100 925 875 Output Total 1600 1600 4000 Balance -6560 -991 -6114 Weight 99.79 kg 83.007 kg 83.149 kg CXR: BL pleural effusion ASSESSMENT/PLAN: Patient is a 71 year old male with a past medical history of CKD stage 5 , IDDM , HTN, CHF is admitted to the hospital for fluid retention of 30 lbs weight gain. # Acute Fluid Overload with 30LB weight gain his current weight is 100Kg-->83KG ,continue witt and Continue Lasix 60mg IV BID , on the case. Strict I's/O's, daily weights. WILL MONITOR #Bl pleural effusion : with hx of CHF , will continue Lasix 60mg BID IV, WILL GET CXR FOR AM. #Diabetes: insulin dependent, uncontrolled currently, continue levemir 15U, bgm #Hypertension Uncontrolled : carvedilol 12.5 BID, Nifedipine 60mg PO QD, and lasix #Hyperlipidemia: continue atorvastatin 20mg HS #CAD: s/p bypass continue clopidogrel #Anemia: Hgb 7.8--> 7.2 continue ferrous sulfate #Depression/Anxiety: continue citalopram # Hx of BPH on Flomax continue Prophylaxis DVT: heparin 5000 subQ GI Px: sucralfate, will discontinue protonix Visit type - Emergency Visit Emergency Visit: Yes ED Registration Date: 09/22/17 Care time: The patient presented to the Emergency Department on the above date and was hospitalized for further evaluation of their emergent condition. - New Patient This patient is new to me today: No - Critical Care Critical Care patient: No
--- NOTE | 2017-09-23 19:33 | PN ---
Progress Note, Physician History of Present Illness: Pt seen and examined at bedside. He appears more comfortable. He says that his shortness of breath is improved. - Current Medication List Current Medications: Active Medications Atorvastatin Calcium (Lipitor -) 20 mg PO HS [facility] Last Admin: 09/22/17 21:32 Dose: 20 mg Carvedilol (Coreg -) 12.5 mg PO BID [facility] Last Admin: 09/23/17 10:16 Dose: 12.5 mg Cholecalciferol (Vitamin D3 -) 1,000 unit PO DAILY [facility] Last Admin: 09/23/17 10:16 Dose: 1,000 unit Citalopram Hydrobromide (Celexa -) 20 mg PO DAILY [facility] Last Admin: 09/23/17 10:16 Dose: 20 mg Clopidogrel Bisulfate (Plavix -) [address] [facility] Last Admin: 09/22/17 21:32 Dose: 75 mg Docusate Sodium (Colace -) [address] [facility] Last Admin: 09/22/17 21:32 Dose: 300 mg Ferrous Sulfate (Feosol -) 325 mg PO DAILY [facility] Last Admin: 09/23/17 10:16 Dose: 325 mg Furosemide (Lasix Injection -) 60 mg IVPUSH BID@0600,1400 [facility] Last Admin: 09/23/17 13:05 Dose: 60 mg Gabapentin (Neurontin -) 100 mg PO DAILY [facility] Last Admin: 09/23/17 10:16 Dose: 100 mg Heparin Sodium (Porcine) (Heparin -) 5,000 unit SQ TID [facility] Last Admin: 09/23/17 13:05 Dose: 5,000 unit Insulin Aspart (Novolog Vial Sliding Scale -) 1 vial SQ TIDAC [facility] PRN Reason: Protocol Last Admin: 09/23/17 17:19 Dose: Not Given Insulin Detemir (Levemir Vial) [address] [facility] Last Admin: 09/22/17 21:37 Dose: 15 units Nifedipine (Procardia Xl -) 60 mg PO DAILY [facility] Last Admin: 09/23/17 10:16 Dose: 60 mg Polyethylene Glycol (Miralax (For Daily Use) -) 17 gm PO DAILY [facility] Last Admin: 09/23/17 10:16 Dose: 17 gm Sucralfate (Carafate -) 1 gm PO BID [facility] Last Admin: 09/23/17 10:22 Dose: 1 gm Tamsulosin HCl (Flomax -) 0.4 mg PO HS [facility] Last Admin: 09/22/17 21:32 Dose: 0.4 mg - Objective Vital Signs: Vital Signs Temperature 98.6 F 09/23/17 06:16 Pulse Rate 66 09/23/17 14:00 Respiratory Rate 20 09/23/17 14:00 Blood Pressure 130/80 09/23/17 14:00 O2 Sat by Pulse Oximetry (%) 96 09/23/17 10:00 Constitutional: Yes: Calm Eyes: Yes: Conjunctiva Clear HENT: Yes: Atraumatic Cardiovascular: Yes: S1, S2 Respiratory: Yes: On Nasal O2 Gastrointestinal: Yes: Soft Genitourinary: Yes: Witt Present Musculoskeletal: Yes: WNL Edema: Yes Edema: LLE: 2+, RLE: 2+ Neurological: Yes: Oriented Labs: CBC, BMP 09/22/17 07:00 09/22/17 07:00 INR, PTT INR 1.31 (0.82-1.09) H 09/21/17 15:42 Problem List - Problems (1) Fluid overload Code(s): E87.70 - FLUID OVERLOAD, UNSPECIFIED Qualifiers: Hypervolemia type: other Qualified Code(s): E87.79 - Other fluid overload (2) CKD (chronic kidney disease) Code(s): N18.9 - CHRONIC KIDNEY DISEASE, UNSPECIFIED Qualifiers: Chronic kidney disease stage: unspecified stage Qualified Code(s): N18.9 - Chronic kidney disease, unspecified (3) Urinary retention Code(s): R33.9 - RETENTION OF URINE, UNSPECIFIED (4) Anemia Code(s): D64.9 - ANEMIA, UNSPECIFIED Qualifiers: Assessment/Plan Current Medications Generic Name Dose Route Start Last Admin Trade Name Freq PRN Reason Stop Dose Admin Atorvastatin Calcium 20 mg 09/21/17 22:00 09/22/17 21:32 Lipitor - PO 20 mg HS [facility] Administration Carvedilol 12.5 mg 09/21/17 22:00 09/23/17 10:16 Coreg - PO 12.5 mg BID ROSIE Administration Cholecalciferol 1,000 unit 09/22/17 10:00 09/23/17 10:16 Vitamin D3 - PO 1,000 unit DAILY [facility]IE Administration Citalopram Hydrobromide 20 mg 09/22/17 10:00 09/23/17 10:16 Celexa - PO 20 mg DAILY [facility] Administration Clopidogrel Bisulfate 75 mg 09/21/17 22:00 09/22/17 21:32 Plavix - PO 75 mg HS [facility]IE Administration Docusate Sodium 300 mg 09/21/17 22:00 09/22/17 21:32 Colace - PO 300 mg HS [facility]IE Administration Ferrous Sulfate 325 mg 09/22/17 10:00 09/23/17 10:16 Feosol - PO 325 mg DAILY [facility] Administration Furosemide 60 mg 09/22/17 06:00 09/23/17 13:05 Lasix Injection - IVPUSH 60 mg BID@0600,1400 [facility] Administration Gabapentin 100 mg 09/22/17 10:00 09/23/17 10:16 Neurontin - PO 100 mg DAILY [facility] Administration Heparin Sodium (Porcine) 5,000 unit 09/21/17 22:00 09/23/17 13:05 Heparin - SQ 5,000 unit TID [facility] Administration Insulin Aspart 1 vial 09/22/17 07:00 09/23/17 17:19 Novolog Vial Sliding Scale - SQ Not Given TIDAC [facility] Protocol Insulin Detemir 15 units 09/21/17 22:00 09/22/17 21:37 Levemir Vial SQ 15 units HS [facility] Administration Nifedipine 60 mg 09/22/17 10:00 09/23/17 10:16 Procardia Xl - PO 60 mg DAILY [facility] Administration Polyethylene Glycol 17 gm 09/22/17 10:00 09/23/17 10:16 Miralax (For Daily Use) - PO 17 gm DAILY [facility] Administration Sucralfate 1 gm 09/21/17 22:00 09/23/17 10:22 Carafate - PO 1 gm BID [facility] Administration Tamsulosin HCl 0.4 mg 09/21/17 22:00 09/22/17 21:32 Flomax - PO 0.4 mg HS [facility] Administration Impression 1. CKD 2. anemia 3. HTN 4. Chol 5. DM 6. BPH 7. CAD 8. urinary retention with chronic witt 9. GI bleed 10. fluid overload Plan - check bmp and cbc - cont with IV lasix - pt is making urine - monitor urine output - monitor hg - cont current meds Dr Donovan
[2017-09-23] MEDS: CLOPIDOGREL BISULFATE 75 MG TABLET (FP) PO SCH (21:48)
[2017-09-23] MEDS: ATORVASTATIN CA 20 MG TABLET (FP) PO SCH (21:49)
[2017-09-23] MEDS: DOCUSATE SODIUM 100 MG CAPSULE (FP) PO SCH (21:49)
[2017-09-23] MEDS: TAMSULOSIN HCL 0.4 MG CAP.ER.24H (FP) PO SCH (21:49)
[2017-09-23] MEDS: INSULIN DETEMIR 100 UNITS/ML MDV SQ SCH (23:04)
[2017-09-24] MEDS: INSULIN SLIDING SCALE (NOVOLOG) 1 VIAL SQ SCH ×5 (00:05→21:32)
[2017-09-24] MEDS: HEPARIN NA (PORCINE) 5,000 UNITS/ML 1ML VIAL SQ SCH ×3 (06:13→22:19)
[2017-09-24] MEDS: FUROSEMIDE 40 MG/4 ML INJECTABLE VIAL IVPUSH SCH (06:13)
[2017-09-24 08:26] LABS: BASO % 0.9 % (0-2.0); HEMATOCRIT 22.7 % (35.4-49); HEMOGLOBIN 7.4 GM/dL (11.7-16.9); LYMPH % 10.7 % (8-40); MCH 28.5 pg (25.7-33.7); MCHC 32.7 g/dl (32.0-35.9); MEAN CELL VOLUME 87.2 fl (80-96); MEAN PLT VOLUME 6.2 fl (7.5-11.1); NEUT % 72.4 % (42.8-82.8); PLATELET COUNT 221 K/MM3 (134-434); RDW 18.8 % (11.9-15.9); WHITE BLOOD COUNT 4.9 K/mm3 (4.0-10.0)
[2017-09-24 08:55] LABS: ALBUMIN 2.7 g/dl (3.4-5.0); ANION GAP 8 (8-16); BLOOD UREA NITROGEN 103 mg/dL (7-18); CALCIUM 7.9 mg/dL (8.5-10.1); CHLORIDE 108 mmol/L (98-107); CO2 27 mmol/L (21-32); GLUCOSE,RANDOM 73 mg/dL (74-106); MAGNESIUM 2.1 mg/dL (1.8-2.4); POTASSIUM 4.5 mmol/L (3.5-5.1); SODIUM 143 mmol/L (136-145)
[2017-09-24 08:59] LABS: ALK PHOS 110 U/L (45-117); BILIRUBIN,TOTAL 0.6 mg/dL (0.2-1.0); CREATININE 4.8 mg/dL (0.7-1.3); PHOSPHOROUS 4.8 mg/dL (2.5-4.9); SGOT/AST 14 U/L (15-37); SGPT/ALT 18 U/L (12-78); TOT PROT 6.6 g/dl (6.4-8.2)
[2017-09-24] MEDS ORDERED: PT OWN MED DRAWER 7, Y5N ONE (09:46)
[2017-09-24] MEDS: NIFEdipine E.R 60 MG TABLET (UD) PO SCH (09:53)
[2017-09-24] MEDS: FERROUS SO4 325 MG TABLET (FP) PO SCH (09:53)
[2017-09-24] MEDS: GABAPENTIN 100 MG CAPSULE (FP) PO SCH (09:53)
[2017-09-24] MEDS: CARVEDILOL 12.5 MG TABLET (FP) PO SCH ×2 (09:53→21:31)
[2017-09-24] MEDS: POLYETHYLENE GLYCOL 3350 119 GM BTL PO SCH (09:53)
[2017-09-24] MEDS: CITALOPRAM HYDROBROMIDE 20 MG TABLET (FP) PO SCH (09:53)
[2017-09-24] MEDS: SUCRALFATE 1 GM TABLET (FP) PO SCH ×2 (09:54→21:32)
[2017-09-24] MEDS: CHOLECALCIFEROL (VITAMIN D3) 1,000 UNIT TABLET (FP) PO SCH (09:54)
--- NOTE | 2017-09-24 13:49 | PN ---
Progress Note (short form) - Note Progress Note: Patient is comfortable with no acute distress Vital Signs Temperature 97.5 F L 09/24/17 08:00 Pulse Rate 58 L 09/24/17 08:00 Respiratory Rate 18 09/24/17 08:00 Blood Pressure 167/76 09/24/17 08:00 O2 Sat by Pulse Oximetry (%) 96 09/24/17 08:56 GENERAL: The patient is awake, alert, and fully oriented, in no acute distress. HEAD: Normal with no signs of trauma. EYES: PERRL, extraocular movements intact, sclera anicteric, conjunctiva clear. ENT: Ears normal, oropharynx clear without exudates, moist mucous membranes. NECK: Trachea midline, full range of motion, supple. LUNGS: decreased BS BL, no wheezes, no crackles, no accessory muscle use. HEART: Regular rate and rhythm, S1, S2 without murmur, rub or gallop. ABDOMEN: Soft, nontender, nondistended, normoactive bowel sounds, no guarding, no rebound, no hepatosplenomegaly, no masses. EXTREMITIES: 2+ pulses, warm, well-perfused, edema 2 plus BL NEUROLOGICAL: Cranial nerves II through XII grossly intact. Normal speech, gait not observed. PSYCH: Normal mood, normal affect. SKIN: Warm, dry, normal turgor, no rashes or lesions noted : positive for Witt CBCD WBC 4.9 K/mm3 (4.0-10.0) 09/24/17 08:10 RBC 2.60 M/mm3 (4.00-5.60) L 09/24/17 08:10 Hgb 7.4 GM/dL (11.7-16.9) L 09/24/17 08:10 Hct 22.7 % (35.4-49) L 09/24/17 08:10 MCV 87.2 fl (80-96) 09/24/17 08:10 MCHC 32.7 g/dl (32.0-35.9) 09/24/17 08:10 RDW 18.8 % (11.9-15.9) H 09/24/17 08:10 Plt Count 221 K/MM3 (134-434) 09/24/17 08:10 MPV 6.2 fl (7.5-11.1) L 09/24/17 08:10 CMP Sodium 143 mmol/L (136-145) 09/24/17 08:10 Potassium 4.5 mmol/L (3.5-5.1) 09/24/17 08:10 Chloride 108 mmol/L (98-107) H 09/24/17 08:10 Carbon Dioxide 27 mmol/L (21-32) D 09/24/17 08:10 Anion Gap 8 (8-16) 09/24/17 08:10 BUN 103 mg/dL (7-18) H 09/24/17 08:10 Creatinine 4.8 mg/dL (0.7-1.3) H 09/24/17 08:10 Creat Clearance w eGFR 12.05 (>60) 09/24/17 08:10 Random Glucose 73 mg/dL (74-106) L D 09/24/17 08:10 Calcium 7.9 mg/dL (8.5-10.1) L 09/24/17 08:10 Total Bilirubin 0.6 mg/dL (0.2-1.0) 09/24/17 08:10 AST 14 U/L (15-37) L 09/24/17 08:10 ALT 18 U/L (12-78) 09/24/17 08:10 Alkaline Phosphatase 110 U/L (45-117) 09/24/17 08:10 Total Protein 6.6 g/dl (6.4-8.2) 09/24/17 08:10 Albumin 2.7 g/dl (3.4-5.0) L 09/24/17 08:10 Current Medications Generic Name Dose Route Start Last Admin Trade Name David PRN Reason Stop Dose Admin Atorvastatin Calcium 20 mg 09/21/17 22:00 09/23/17 21:49 Lipitor - PO 20 mg HS ROSIE Administration Carvedilol 12.5 mg 09/21/17 22:00 09/24/17 09:53 Coreg - PO 12.5 mg BID ROSIE Administration Cholecalciferol 1,000 unit 09/22/17 10:00 09/24/17 09:54 Vitamin D3 - PO 1,000 unit DAILY ROSIE Administration Citalopram Hydrobromide 20 mg 09/22/17 10:00 09/24/17 09:53 Celexa - PO 20 mg DAILY ROSIE Administration Clopidogrel Bisulfate 75 mg 09/21/17 22:00 09/23/17 21:48 Plavix - PO 75 mg HS [facility] Administration Docusate Sodium 300 mg 09/21/17 22:00 09/23/17 21:49 Colace - PO 300 mg HS ROSIE Administration Ferrous Sulfate 325 mg 09/22/17 10:00 09/24/17 09:53 Feosol - PO 325 mg DAILY ROSIE Administration Furosemide 60 mg 09/22/17 06:00 09/24/17 06:13 Lasix Injection - IVPUSH 60 mg BID@0600,1400 ROSIE Administration Gabapentin 100 mg 09/22/17 10:00 09/24/17 09:53 Neurontin - PO 100 mg DAILY ROSIE Administration Heparin Sodium (Porcine) 5,000 unit 09/21/17 22:00 09/24/17 06:13 Heparin - SQ 5,000 unit TID ROSIE Administration Insulin Aspart 1 vial 09/24/17 07:00 09/24/17 11:26 Novolog Vial Sliding Scale - SQ 2 units ACHS [facility] Administration Protocol Insulin Detemir 15 units 09/21/17 22:00 09/23/17 23:04 Levemir Vial SQ 15 units HS [facility] Administration Nifedipine 60 mg 09/22/17 10:00 09/24/17 09:53 Procardia Xl - PO 60 mg DAILY ROSIE Administration Polyethylene Glycol 17 gm 09/22/17 10:00 09/24/17 09:53 Miralax (For Daily Use) - PO 17 gm DAILY ROSIE Administration Sucralfate 1 gm 09/21/17 22:00 09/24/17 09:54 Carafate - PO 1 gm BID ROSIE Administration Tamsulosin HCl 0.4 mg 09/21/17 22:00 09/23/17 21:49 Flomax - PO 0.4 mg HS ROSIE Administration Home Medications Medication Instructions Recorded Cholecalciferol (Vitamin D3) 1,000 unit PO DAILY tablet 09/02/12 [Vitamin D3] Clopidogrel Bisulfate [Clopidogrel] 75 mg PO HS #90 tablet 01/10/16 Carvedilol 12.5 mg PO BID 06/11/17 Ferrous Sulfate [Feosol] 325 mg PO DAILY ud 07/12/17 Docusate Sodium [Colace -] 300 mg PO HS 07/14/17 Insulin Glargine,Hum.rec.anlog 15 units SQ HS 07/14/17 [Lantus Solostar PEN -] Lidocaine 5% Patch [Lidoderm -] 1 patch TP DAILY #7 patch 07/15/17 Insulin Sliding Scale [Novolog 1 vial SQ TIDAC PRN 07/23/17 Vial Sliding Scale -] Simvastatin 40 mg PO HS 07/23/17 Pantoprazole Sodium [Protonix -] 40 mg PO DAILY #30 tablet.ec 07/25/17 Sucralfate [Carafate -] 1 gm PO BID #60 tablet 07/25/17 Tamsulosin HCl [Flomax -] 0.4 mg PO HS cap.er.24h 07/25/17 Polyethylene Glycol 3350 [Miralax 17 gm PO DAILY 09/03/17 119 gm Btl -] Nifedipine ER [Procardia XL -] 60 mg PO DAILY #30 tab.er.24 09/10/17 intake & Output 09/21/17 09/22/17 09/23/17 09/24/17 23:59 23:59 23:59 23:59 Intake Total 481 748 8695 177 Output Total 1600 1600 5000 1600 Balance -1500 -665 -0305 -1428 Weight 99.79 kg 83.007 kg 83.149 kg 79.577 kg CXR: BL pleural effusion ASSESSMENT/PLAN: Patient is a 71 year old male with a past medical history of CKD stage 5 , IDDM , HTN, CHF is admitted to the hospital for fluid retention of 30 lbs weight gain. # Acute Fluid Overload with 30LB weight gain his current weight is 100Kg-->83KG- -> 79.5K today ,continue witt and , will discuss with nephro since BUN/cr started to rise no , might need to reduce the dose of Lasix , currently on Lasix 60mg IV BID , on the case. Strict I's/O's, daily weights. WILL MONITOR #Bl pleural effusion : with hx of CHF , will continue Lasix 60mg BID IV, WILL GET CXR FOR AM. Dr. Donovan will readjust his meds. #Diabetes: insulin dependent, uncontrolled currently, continue levemir 15U, bgm #Hypertension Uncontrolled : carvedilol 12.5 BID, Nifedipine 60mg PO QD, and lasix #Hyperlipidemia: continue atorvastatin 20mg HS #CAD: s/p bypass continue clopidogrel #Anemia: Hgb 7.8--> 7.2 continue ferrous sulfate #Depression/Anxiety: continue citalopram # Hx of BPH on Flomax continue Prophylaxis DVT: heparin 5000 subQ GI Px: sucralfate, will discontinue protonix I Visit type - Emergency Visit Emergency Visit: Yes ED Registration Date: 09/22/17 Care time: The patient presented to the Emergency Department on the above date and was hospitalized for further evaluation of their emergent condition. - New Patient This patient is new to me today: No - Critical Care Critical Care patient: No - Discharge Referral Referred to [facility] Med P.C.: No
[2017-09-24] MEDS ORDERED: NIFEdipine E.R 60 MG TABLET (UD) PO SCH (13:55)
--- NOTE | 2017-09-24 19:18 | PN ---
Progress Note, Physician History of Present Illness: Pt seen and examined at bedside. He denies chest pain. - Current Medication List Current Medications: Active Medications Atorvastatin Calcium (Lipitor -) 20 mg PO HS [facility] Last Admin: 09/23/17 21:49 Dose: 20 mg Carvedilol (Coreg -) 12.5 mg PO BID [facility] Last Admin: 09/24/17 09:53 Dose: 12.5 mg Cholecalciferol (Vitamin D3 -) 1,000 unit PO DAILY [facility] Last Admin: 09/24/17 09:54 Dose: 1,000 unit Citalopram Hydrobromide (Celexa -) 20 mg PO DAILY [facility] Last Admin: 09/24/17 09:53 Dose: 20 mg Clopidogrel Bisulfate (Plavix -) 75 mg PO [facility] Last Admin: 09/23/17 21:48 Dose: 75 mg Docusate Sodium (Colace -) 300 mg PO HS [facility] Last Admin: 09/23/17 21:49 Dose: 300 mg Ferrous Sulfate (Feosol -) 325 mg PO DAILY [facility] Last Admin: 09/24/17 09:53 Dose: 325 mg Gabapentin (Neurontin -) 100 mg PO DAILY [facility] Last Admin: 09/24/17 09:53 Dose: 100 mg Heparin Sodium (Porcine) (Heparin -) 5,000 unit SQ TID [facility] Last Admin: 09/24/17 14:06 Dose: 5,000 unit Insulin Aspart (Novolog Vial Sliding Scale -) 1 vial SQ [facility] PRN Reason: Protocol Last Admin: 09/24/17 16:52 Dose: 6 units Insulin Detemir (Levemir Vial) 15 units SQ [facility] Last Admin: 09/23/17 23:04 Dose: 15 units Nifedipine (Procardia Xl -) 60 mg PO DAILY [facility] Polyethylene Glycol (Miralax (For Daily Use) -) 17 gm PO DAILY [facility] Last Admin: 09/24/17 09:53 Dose: 17 gm Sucralfate (Carafate -) 1 gm PO BID [facility] Last Admin: 09/24/17 09:54 Dose: 1 gm Tamsulosin HCl (Flomax -) 0.4 mg PO HS [facility] Last Admin: 09/23/17 21:49 Dose: 0.4 mg - Objective Vital Signs: Vital Signs Temperature 98.1 F 09/24/17 14:00 Pulse Rate 60 09/24/17 14:00 Respiratory Rate 20 09/24/17 14:00 Blood Pressure 144/61 09/24/17 14:00 O2 Sat by Pulse Oximetry (%) 96 09/24/17 08:56 Constitutional: Yes: Calm Eyes: Yes: Conjunctiva Clear HENT: Yes: Atraumatic Cardiovascular: Yes: S1, S2 Respiratory: Yes: On Nasal O2 Gastrointestinal: Yes: Soft Genitourinary: Yes: Witt Present Musculoskeletal: Yes: Muscle Weakness Edema: Yes Edema: LLE: 1+, RLE: 1+ Neurological: Yes: Oriented Labs: CBC, BMP 09/24/17 08:10 09/24/17 08:10 INR, PTT INR 1.31 (0.82-1.09) H 09/21/17 15:42 - ....Imaging Chest X-ray: Report Reviewed Problem List - Problems (1) Fluid overload Code(s): E87.70 - FLUID OVERLOAD, UNSPECIFIED Qualifiers: Hypervolemia type: other Qualified Code(s): E87.79 - Other fluid overload (2) CKD (chronic kidney disease) Code(s): N18.9 - CHRONIC KIDNEY DISEASE, UNSPECIFIED Qualifiers: Chronic kidney disease stage: unspecified stage Qualified Code(s): N18.9 - Chronic kidney disease, unspecified (3) Urinary retention Code(s): R33.9 - RETENTION OF URINE, UNSPECIFIED (4) Anemia Code(s): D64.9 - ANEMIA, UNSPECIFIED Qualifiers: Assessment/Plan Current Medications Generic Name Dose Route Start Last Admin Trade Name Freq PRN Reason Stop Dose Admin Atorvastatin Calcium 20 mg 09/21/17 22:00 09/23/17 21:49 Lipitor - PO 20 mg HS ROSIE Administration Carvedilol 12.5 mg 09/21/17 22:00 09/24/17 09:53 Coreg - PO 12.5 mg BID [facility]IE Administration Cholecalciferol 1,000 unit 09/22/17 10:00 09/24/17 09:54 Vitamin D3 - PO 1,000 unit DAILY [facility] Administration Citalopram Hydrobromide 20 mg 09/22/17 10:00 09/24/17 09:53 Celexa - PO 20 mg DAILY [facility] Administration Clopidogrel Bisulfate 75 mg 09/21/17 22:00 02/18/18 21:48 Plavix - PO 75 mg HS [facility] Administration Docusate Sodium 300 mg 09/21/17 22:00 09/23/17 21:49 Colace - PO 300 mg HS [facility] Administration Ferrous Sulfate 325 mg 09/22/17 10:00 09/24/17 09:53 Feosol - PO 325 mg DAILY [facility] Administration Gabapentin 100 mg 09/22/17 10:00 09/24/17 09:53 Neurontin - PO 100 mg DAILY [facility] Administration Heparin Sodium (Porcine) 5,000 unit 09/21/17 22:00 09/24/17 14:06 Heparin - SQ 5,000 unit TID [facility] Administration Insulin Aspart 1 vial 09/24/17 07:00 09/24/17 16:52 Novolog Vial Sliding Scale - SQ 6 units ACHS [facility] Administration Protocol Insulin Detemir 15 units 09/21/17 22:00 09/23/17 23:04 Levemir Vial SQ 15 units HS [facility] Administration Nifedipine 60 mg 09/25/17 10:00 Procardia Xl - PO DAILY [facility]IE Polyethylene Glycol 17 gm 09/22/17 10:00 09/24/17 09:53 Miralax (For Daily Use) - PO 17 gm DAILY [facility] Administration Sucralfate 1 gm 09/21/17 22:00 09/24/17 09:54 Carafate - PO 1 gm BID [facility] Administration Tamsulosin HCl 0.4 mg 09/21/17 22:00 09/23/17 21:49 Flomax - PO 0.4 mg HS [facility]IE Administration Impression 1. CKD 2. anemia 3. HTN 4. Chol 5. DM 6. BPH 7. CAD 8. urinary retention with chronic witt 9. GI bleed 10. fluid overload Plan - cont with lasix - cxr reviewed - may need to start HD on this admission - monitor urine output Dr Donovan
[2017-09-24] MEDS: INSULIN DETEMIR 100 UNITS/ML MDV SQ SCH (21:27)
[2017-09-24] MEDS: DOCUSATE SODIUM 100 MG CAPSULE (FP) PO SCH (21:30)
[2017-09-24] MEDS: ATORVASTATIN CA 20 MG TABLET (FP) PO SCH (21:31)
[2017-09-24] MEDS: TAMSULOSIN HCL 0.4 MG CAP.ER.24H (FP) PO SCH (21:31)
[2017-09-24] MEDS: CLOPIDOGREL BISULFATE 75 MG TABLET (FP) PO SCH (21:31)
[2017-09-24] MEDS ORDERED: INSULIN (NOVOLOG) ASPART 100 UNITS/ML 10ML VIAL ONE (21:32)
[2017-09-25] MEDS: INSULIN SLIDING SCALE (NOVOLOG) 1 VIAL SQ SCH ×4 (06:01→21:24)
[2017-09-25] MEDS ORDERED: FUROSEMIDE 40 MG/4 ML INJECTABLE VIAL ONE (06:14)
[2017-09-25] MEDS: FUROSEMIDE 100 MG/10 ML INJECTABLE VIAL IVPB SCH ×2 (06:14→14:43)
[2017-09-25] MEDS: HEPARIN NA (PORCINE) 5,000 UNITS/ML 1ML VIAL SQ SCH ×3 (06:14→21:23)
[2017-09-25 08:23] LABS: BASO % 0.7 % (0-2.0); EOS % 2.5 % (0-4.5); HEMATOCRIT 23.7 % (35.4-49); HEMOGLOBIN 7.7 GM/dL (11.7-16.9); LYMPH % 11.3 % (8-40); MCH 28.3 pg (25.7-33.7); MCHC 32.5 g/dl (32.0-35.9); MEAN CELL VOLUME 87.1 fl (80-96); MEAN PLT VOLUME 6.5 fl (7.5-11.1); NEUT % 73.5 % (42.8-82.8); PLATELET COUNT 233 K/MM3 (134-434); RBC 2.72 M/mm3 (4.00-5.60); RDW 19.3 % (11.9-15.9); WHITE BLOOD COUNT 5.4 K/mm3 (4.0-10.0)
[2017-09-25 08:39] LABS: ALBUMIN 2.7 g/dl (3.4-5.0); ALK PHOS 103 U/L (45-117); ANION GAP 7 (8-16); BILIRUBIN,TOTAL 0.5 mg/dL (0.2-1.0); BLOOD UREA NITROGEN 96 mg/dL (7-18); CALCIUM 7.7 mg/dL (8.5-10.1); CHLORIDE 110 mmol/L (98-107); CO2 29 mmol/L (21-32); CREATININE 4.5 mg/dL (0.7-1.3); GLUCOSE,RANDOM 59 mg/dL (74-106); POTASSIUM 4.4 mmol/L (3.5-5.1); SGOT/AST 13 U/L (15-37); SGPT/ALT 17 U/L (12-78); SODIUM 146 mmol/L (136-145); TOT PROT 6.7 g/dl (6.4-8.2)
[2017-09-25] MEDS ORDERED: PT OWN MED DRAWER 7, Y5N ONE (10:56)
[2017-09-25] MEDS: CARVEDILOL 12.5 MG TABLET (FP) PO SCH ×2 (10:59→21:23)
[2017-09-25] MEDS: POLYETHYLENE GLYCOL 3350 119 GM BTL PO SCH (10:59)
[2017-09-25] MEDS: CITALOPRAM HYDROBROMIDE 20 MG TABLET (FP) PO SCH (10:59)
[2017-09-25] MEDS: CHOLECALCIFEROL (VITAMIN D3) 1,000 UNIT TABLET (FP) PO SCH (10:59)
[2017-09-25] MEDS: NIFEdipine E.R 60 MG TABLET (UD) PO SCH (10:59)
[2017-09-25] MEDS: FERROUS SO4 325 MG TABLET (FP) PO SCH (10:59)
[2017-09-25] MEDS: SUCRALFATE 1 GM TABLET (FP) PO SCH ×2 (10:59→21:24)
[2017-09-25] MEDS: GABAPENTIN 100 MG CAPSULE (FP) PO SCH (10:59)
[2017-09-25] MEDS ORDERED: INSULIN (NOVOLOG) ASPART 100 UNITS/ML 10ML VIAL ONE ×2 (11:46→21:22)
--- NOTE | 2017-09-25 12:44 | CONSULT ---
- Consultation REQUESTING PROVIDER: Praful Mcneil DO CONSULT REQUEST: We have been asked to surgically evaluate this patient for permanent HD access PCP: Lynne Hernadez MD HPI: Called to eval 71 yo male with PMHx noted below. Per Renal (Samarvonnieh), he will need an AVF created on this hospital admission. He is right hand dominant. Presents to [facility] ED with c/o SOB and LE swelling. PMHx: CKD, Influenza PSHx: Home Medications Medication Instructions Recorded Cholecalciferol (Vitamin D3) 1,000 unit PO DAILY tablet 09/02/12 [Vitamin D3] Clopidogrel Bisulfate [Clopidogrel] 75 mg PO HS #90 tablet 01/10/16 Carvedilol 12.5 mg PO BID 06/11/17 Ferrous Sulfate [Feosol] 325 mg PO DAILY ud 07/12/17 Docusate Sodium [Colace -] 300 mg PO HS 07/14/17 Insulin Glargine,Hum.rec.anlog 15 units SQ HS 07/14/17 [Lantus Solostar PEN -] Lidocaine 5% Patch [Lidoderm -] 1 patch TP DAILY #7 patch 07/15/17 Insulin Sliding Scale [Novolog 1 vial SQ TIDAC PRN 07/23/17 Vial Sliding Scale -] Simvastatin 40 mg PO HS 07/23/17 Pantoprazole Sodium [Protonix -] 40 mg PO DAILY #30 tablet.ec 07/25/17 Sucralfate [Carafate -] 1 gm PO BID #60 tablet 07/25/17 Tamsulosin HCl [Flomax -] 0.4 mg PO HS cap.er.24h 07/25/17 Polyethylene Glycol 3350 [Miralax 17 gm PO DAILY 09/03/17 119 gm Btl -] Nifedipine ER [Procardia XL -] 60 mg PO DAILY #30 tab.er.24 09/10/17 Allergies Allergy/AdvReac Type Severity Reaction Status Date / Time tramadol Allergy Verified 09/21/17 15:04 oxycodone HCl [From Percocet] AdvReac Intermediate nausea Verified 09/21/17 15: 04 ticagrelor [From BRILINTA] AdvReac Intermediate Verified 09/21/17 15:04 REVIEW OF SYSTEMS: CONSTITUTIONAL: Absent: fever, chills, diaphoresis, generalized weakness, malaise, loss of appetite, weight change CARDIOVASCULAR: Absent: chest pain, syncope, palpitations, irregular heart rate, lightheadedness , peripheral edema RESPIRATORY: Absent: cough, shortness of breath, dyspnea with exertion, wheezing, stridor, hemoptysis GASTROINTESTINAL: Absent: abdominal pain, abdominal distension, nausea, vomiting, diarrhea, constipation, melena, hematochezia GENITOURINARY: Absent: dysuria, frequency, urgency, hesitancy, hematuria, flank pain, genital pain MUSCULOSKELETAL: Absent: myalgia, arthralgia, joint swelling, back pain, neck pain SKIN: Absent: rash, itching, pallor HEMATOLOGIC/IMMUNOLOGIC: Absent: easy bleeding, easy bruising, lymphadenopathy NEUROLOGIC: Absent: headache, focal weakness, paresthesias, dizziness, unsteady gait, seizure, mental status changes, bladder or bowel incontinence PSYCHIATRIC: Absent: anxiety, depression, suicidal or homicidal ideation, hallucinations. PHYSICAL EXAM: GENERAL: Awake, alert, and fully oriented, in no acute distress. HEAD: Normal with no signs of trauma. EYES: PERRL, sclera anicteric, conjunctiva clear. NECK: Normal ROM, supple without lymphadenopathy, JVD, or masses. LUNGS: Clear to auscultation bilat anteriorly. No wheezes, and no crackles. No accessory muscle use. HEART: Regular rate and rhythm. No murmurs ABDOMEN: Soft, nontender, not distended, normoactive bowel sounds, no guarding, no rebound, no masses. No organomegaly. MUSCULOSKELETAL: Normal ROM at all joints. No bony deformities or tenderness. No CVA tenderness. UPPER EXTREMITIES: 2+ pulses, warm, well-perfused. No cyanosis. Cap refill <2 seconds. No peripheral edema. LOWER EXTREMITIES: 2+ pulses, warm, well-perfused. No calf tenderness. No peripheral edema. NEUROLOGICAL: Normal speech, gait not observed. PSYCH: Cooperative. Good eye contact. Appropriate mood and affect. SKIN: Warm, dry, normal turgor, no rashes or lesions noted. Vital Signs Temperature 97.4 F L 09/25/17 09:40 Pulse Rate 62 09/25/17 09:40 Respiratory Rate 17 09/25/17 09:40 Blood Pressure 158/68 09/25/17 09:40 O2 Sat by Pulse Oximetry (%) 95 09/24/17 21:00 Lab Results WBC 5.4 K/mm3 (4.0-10.0) 09/25/17 07:20 RBC 2.72 M/mm3 (4.00-5.60) L 09/25/17 07:20 Hgb 7.7 GM/dL (11.7-16.9) L 09/25/17 07:20 Hct 23.7 % (35.4-49) L 09/25/17 07:20 MCV 87.1 fl (80-96) 09/25/17 07:20 MCHC 32.5 g/dl (32.0-35.9) 09/25/17 07:20 RDW 19.3 % (11.9-15.9) H 09/25/17 07:20 Plt Count 233 K/MM3 (134-434) 09/25/17 07:20 Sodium 146 mmol/L (136-145) H 09/25/17 07:20 Potassium 4.4 mmol/L (3.5-5.1) 09/25/17 07:20 Chloride 110 mmol/L (98-107) H 09/25/17 07:20 Carbon Dioxide 29 mmol/L (21-32) 09/25/17 07:20 Anion Gap 7 (8-16) L 09/25/17 07:20 BUN 96 mg/dL (7-18) H 09/25/17 07:20 Creatinine 4.5 mg/dL (0.7-1.3) H 09/25/17 07:20 Random Glucose 59 mg/dL (74-106) L 09/25/17 07:20 Calcium 7.7 mg/dL (8.5-10.1) L 09/25/17 07:20 INR 1.31 (0.82-1.09) H 09/21/17 15:42 Problem List - Problems (1) CKD (chronic kidney disease) Assessment/Plan: LUE vein mapping ordered Plan on creation ov AVF on this hospital admission Medical optimization / clearance Cont medical management Code(s): N18.9 - CHRONIC KIDNEY DISEASE, UNSPECIFIED Qualifiers: Chronic kidney disease stage: unspecified stage Qualified Code(s): N18.9 - Chronic kidney disease, unspecified (2) Fluid overload Code(s): E87.70 - FLUID OVERLOAD, UNSPECIFIED Qualifiers: Hypervolemia type: other Qualified Code(s): E87.79 - Other fluid overload Visit type - Case Type Case Type: ED Admission - Emergency Emergency Visit: Yes ED Registration Date: 09/22/17 Care time: The patient presented to the Emergency Department on the above date and was hospitalized for further evaluation of their emergent condition. - New patient This patient is new to me today: Yes Date on this admission: 09/25/17
[2017-09-25] MEDS ORDERED: FUROSEMIDE 40 MG/4 ML INJECTABLE VIAL IVPUSH SCH (15:30)
--- NOTE | 2017-09-25 15:54 | PN ---
Progress Note, Physician History of Present Illness: Pt seen and examined at bedside. He feels that his lower extremity edema is improving. - Current Medication List Current Medications: Active Medications Atorvastatin Calcium (Lipitor -) 20 mg PO HS [facility] Last Admin: 09/24/17 21:31 Dose: 20 mg Carvedilol (Coreg -) 12.5 mg PO BID [facility] Last Admin: 09/25/17 10:59 Dose: 12.5 mg Cholecalciferol (Vitamin D3 -) 1,000 unit PO DAILY [facility] Last Admin: 09/25/17 10:59 Dose: 1,000 unit Citalopram Hydrobromide (Celexa -) 20 mg PO DAILY [facility] Last Admin: 09/25/17 10:59 Dose: 20 mg Clopidogrel Bisulfate (Plavix -) 75 mg PO HS [facility] Last Admin: 09/24/17 21:31 Dose: 75 mg Docusate Sodium (Colace -) 300 mg PO HS [facility] Last Admin: 09/24/17 21:30 Dose: 300 mg Ferrous Sulfate (Feosol -) 325 mg PO DAILY [facility] Last Admin: 09/25/17 10:59 Dose: 325 mg Furosemide (Lasix Injection -) 80 mg IVPUSH BIDLASIX [facility] Gabapentin (Neurontin -) 100 mg PO DAILY [facility] Last Admin: 09/25/17 10:59 Dose: 100 mg Heparin Sodium (Porcine) (Heparin -) 5,000 unit SQ TID [facility] Last Admin: 09/25/17 14:37 Dose: Not Given Insulin Aspart (Novolog Vial Sliding Scale -) 1 vial SQ [facility] PRN Reason: Protocol Last Admin: 09/25/17 11:53 Dose: 2 units Insulin Detemir (Levemir Vial) 15 units SQ [facility] Last Admin: 09/24/17 21:27 Dose: 15 units Nifedipine (Procardia Xl -) 60 mg PO DAILY [facility] Last Admin: 09/25/17 10:59 Dose: 60 mg Polyethylene Glycol (Miralax (For Daily Use) -) 17 gm PO DAILY [facility] Last Admin: 09/25/17 10:59 Dose: 17 gm Sucralfate (Carafate -) 1 gm PO BID [facility] Last Admin: 09/25/17 10:59 Dose: 1 gm Tamsulosin HCl (Flomax -) 0.4 mg PO [facility] Last Admin: 02/19/18 21:31 Dose: 0.4 mg - Objective Vital Signs: Vital Signs Temperature 98.6 F 09/25/17 14:00 Pulse Rate 68 09/25/17 14:00 Respiratory Rate 18 09/25/17 14:00 Blood Pressure 185/79 09/25/17 14:00 O2 Sat by Pulse Oximetry (%) 97 09/25/17 09:00 Constitutional: Yes: Calm Eyes: Yes: Conjunctiva Clear HENT: Yes: Atraumatic Neck: Yes: Supple Cardiovascular: Yes: S1, S2 Respiratory: Yes: On Nasal O2 Gastrointestinal: Yes: Soft Genitourinary: Yes: WNL Musculoskeletal: Yes: WNL Edema: LLE: Trace, RLE: Trace Neurological: Yes: Oriented Psychiatric: Yes: Oriented Labs: CBC, BMP 09/25/17 07:20 09/25/17 07:20 INR, PTT INR 1.31 (0.82-1.09) H 09/21/17 15:42 Problem List - Problems (1) Fluid overload Code(s): E87.70 - FLUID OVERLOAD, UNSPECIFIED Qualifiers: Hypervolemia type: other Qualified Code(s): E87.79 - Other fluid overload (2) CKD (chronic kidney disease) Code(s): N18.9 - CHRONIC KIDNEY DISEASE, UNSPECIFIED Qualifiers: Chronic kidney disease stage: unspecified stage Qualified Code(s): N18.9 - Chronic kidney disease, unspecified (3) Urinary retention Code(s): R33.9 - RETENTION OF URINE, UNSPECIFIED (4) Anemia Code(s): D64.9 - ANEMIA, UNSPECIFIED Qualifiers: Assessment/Plan Current Medications Generic Name Dose Route Start Last Admin Trade Name Freq PRN Reason Stop Dose Admin Atorvastatin Calcium 20 mg 09/21/17 22:00 09/24/17 21:31 Lipitor - PO 20 mg HS ROSIE Administration Carvedilol 12.5 mg 09/21/17 22:00 09/25/17 10:59 Coreg - PO 12.5 mg BID ROSIE Administration Cholecalciferol 1,000 unit 09/22/17 10:00 09/25/17 10:59 Vitamin D3 - PO 1,000 unit DAILY [facility]IE Administration Citalopram Hydrobromide 20 mg 09/22/17 10:00 09/25/17 10:59 Celexa - PO 20 mg DAILY [facility]IE Administration Clopidogrel Bisulfate 75 mg 09/21/17 22:00 09/24/17 21:31 Plavix - PO 75 mg HS ROSIE Administration Docusate Sodium 300 mg 09/21/17 22:00 09/24/17 21:30 Colace - PO 300 mg HS ROSIE Administration Ferrous Sulfate 325 mg 09/22/17 10:00 09/25/17 10:59 Feosol - PO 325 mg DAILY [facility] Administration Furosemide 80 mg 09/25/17 15:30 Lasix Injection - IVPUSH BIDLASIX ROSIE Gabapentin 100 mg 09/22/17 10:00 09/25/17 10:59 Neurontin - PO 100 mg DAILY [facility]IE Administration Heparin Sodium (Porcine) 5,000 unit 09/21/17 22:00 09/25/17 14:37 Heparin - SQ Not Given TID [facility] Insulin Aspart 1 vial 09/24/17 07:00 09/25/17 11:53 Novolog Vial Sliding Scale - SQ 2 units ACHS ROSIE Administration Protocol Insulin Detemir 15 units 09/21/17 22:00 09/24/17 21:27 Levemir Vial SQ 15 units HS [facility] Administration Nifedipine 60 mg 09/25/17 10:00 09/25/17 10:59 Procardia Xl - PO 60 mg DAILY [facility]IE Administration Polyethylene Glycol 17 gm 09/22/17 10:00 09/25/17 10:59 Miralax (For Daily Use) - PO 17 gm DAILY [facility] Administration Sucralfate 1 gm 09/21/17 22:00 09/25/17 10:59 Carafate - PO 1 gm BID [facility]IE Administration Tamsulosin HCl 0.4 mg 09/21/17 22:00 09/24/17 21:31 Flomax - PO 0.4 mg HS [facility] Administration Impression 1. CKD 2. anemia 3. HTN 4. Chol 5. DM 6. BPH 7. CAD 8. urinary retention with chronic witt 9. GI bleed 10. fluid overload Plan - will decrease dose of lasix - check cxr - vein mapping for AV fistula - monitor urine output - will follow Dr Donovan
--- NOTE | 2017-09-25 15:56 | PN ---
Physical Exam: SUBJECTIVE: Patient seen and examined at bedside. He states that he has no further SOB and states that his swelling has decreased. Denies chest pain, nausea, vomiting, diarrhea. OBJECTIVE: Vital Signs Period Temp Pulse Resp BP Sys/Rodriguez Pulse Ox Last 24 Hr 97.4 F-98.6 F 56-91 17-20 136-185/65-82 95-97 GENERAL: Awake, alert, and fully oriented, in no acute distress. HEAD: Normal with no signs of trauma. EYES: Pupils equal, round and reactive to light, extraocular movements intact, sclera anicteric, conjunctiva clear. No lid lag. EARS, NOSE, THROAT: Ears normal, nares patent, oropharynx clear without exudates. Moist mucous membranes. NECK: Normal range of motion, supple without lymphadenopathy LUNGS: Breath sounds equal, clear to auscultation bilaterally. improved lung exam from previous examination HEART: Regular rate and rhythm, normal S1 and S2 without murmur, rub or gallop. ABDOMEN: distended but soft and nontender, bowel sounds present MUSCULOSKELETAL: Normal range of motion at all joints. No bony deformities or tenderness. No CVA tenderness. LOWER EXTREMITIES: 2+ pulses, warm, well-perfused. No calf tenderness. 1+ pitting edema noted bilateral legs NEUROLOGICAL: Cranial nerves II-XII intact. Normal speech. Normal gait. PSYCHIATRIC: Cooperative. Good eye contact. Appropriate mood and affect. SKIN: Warm, dry, normal turgor, no rashes or lesions noted, normal capillary refill. Laboratory Results - last 24 hr 09/24/17 09/24/17 09/25/17 16:51 21:25 02:12 WBC RBC Hgb Hct MCV MCH MCHC RDW Plt Count MPV Neutrophils % Lymphocytes % Monocytes % Eosinophils % Basophils % Sodium Potassium Chloride Carbon Dioxide Anion Gap BUN Creatinine Creat Clearance w eGFR POC Glucometer 277 291 182 Random Glucose Calcium Total Bilirubin AST ALT Alkaline Phosphatase Total Protein Albumin 09/25/17 09/25/17 09/25/17 05:58 07:20 07:20 WBC 5.4 RBC 2.72 L Hgb 7.7 L Hct 23.7 L MCV 87.1 MCH 28.3 MCHC 32.5 RDW 19.3 H Plt Count 233 MPV 6.5 L Neutrophils % 73.5 Lymphocytes % 11.3 Monocytes % 12.0 H Eosinophils % 2.5 Basophils % 0.7 Sodium 146 H Potassium 4.4 Chloride 110 H Carbon Dioxide 29 Anion Gap 7 L BUN 96 H Creatinine 4.5 H Creat Clearance w eGFR 12.98 POC Glucometer 86 Random Glucose 59 L Calcium 7.7 L Total Bilirubin 0.5 AST 13 L ALT 17 Alkaline Phosphatase 103 Total Protein 6.7 Albumin 2.7 L 09/25/17 11:22 WBC RBC Hgb Hct MCV MCH MCHC RDW Plt Count MPV Neutrophils % Lymphocytes % Monocytes % Eosinophils % Basophils % Sodium Potassium Chloride Carbon Dioxide Anion Gap BUN Creatinine Creat Clearance w eGFR POC Glucometer 198 Random Glucose Calcium Total Bilirubin AST ALT Alkaline Phosphatase Total Protein Albumin Active Medications Generic Name Dose Route Start Last Admin Trade Name Freq PRN Reason Stop Dose Admin Atorvastatin Calcium 20 mg 09/21/17 22:00 09/24/17 21:31 Lipitor - PO 20 mg HS ROSIE Administration Carvedilol 12.5 mg 09/21/17 22:00 09/25/17 10:59 Coreg - PO 12.5 mg BID ROSIE Administration Cholecalciferol 1,000 unit 09/22/17 10:00 09/25/17 10:59 Vitamin D3 - PO 1,000 unit DAILY ROSIE Administration Citalopram Hydrobromide 20 mg 09/22/17 10:00 09/25/17 10:59 Celexa - PO 20 mg DAILY ROSIE Administration Clopidogrel Bisulfate 75 mg 09/21/17 22:00 09/24/17 21:31 Plavix - PO 75 mg HS ROSIE Administration Docusate Sodium 300 mg 09/21/17 22:00 09/24/17 21:30 Colace - PO 300 mg HS ROSIE Administration Ferrous Sulfate 325 mg 09/22/17 10:00 09/25/17 10:59 Feosol - PO 325 mg DAILY ROSIE Administration Furosemide 40 mg 09/26/17 10:00 Lasix Injection - IVPUSH DAILY ROSIE Gabapentin 100 mg 09/22/17 10:00 09/25/17 10:59 Neurontin - PO 100 mg DAILY ROSIE Administration Heparin Sodium (Porcine) 5,000 unit 09/21/17 22:00 09/25/17 14:37 Heparin - SQ Not Given TID [facility] Insulin Aspart 1 vial 09/24/17 07:00 09/25/17 11:53 Novolog Vial Sliding Scale - SQ 2 units ACHS ROSIE Administration Protocol Insulin Detemir 15 units 09/21/17 22:00 09/24/17 21:27 Levemir Vial SQ 15 units HS ROSIE Administration Nifedipine 60 mg 09/25/17 10:00 09/25/17 10:59 Procardia Xl - PO 60 mg DAILY ROSIE Administration Polyethylene Glycol 17 gm 09/22/17 10:00 09/25/17 10:59 Miralax (For Daily Use) - PO 17 gm DAILY ROSIE Administration Sucralfate 1 gm 09/21/17 22:00 09/25/17 10:59 Carafate - PO 1 gm BID ROSIE Administration Tamsulosin HCl 0.4 mg 09/21/17 22:00 09/24/17 21:31 Flomax - PO 0.4 mg HS ROSIE Administration ASSESSMENT/PLAN: 71 year old male with a past medical history of ESRD (not on HD), IDDM, HTN, CHF is admitted to the hospital for fluid retention 2/2 end-stage renal disease vs CHF #Fluid Retention 2.2 ESRD: likely 2/2 ESRD vs CHF -witt is in, need to renew -continue lasix 40 QD -Nephro consult appreciated Dr. Donovan -will need dialysis on this admission -consult Dr. Mcneil for vascular access -Flomax 0.4 HS -strict I's/O's -daily weights #CHF: possible that CHF is a contributing factor -continue lasix 40 IV QD -CXR: vascular congestion on admission #Diabetes: insulin dependent, uncontrolled currently -Levemir 15U -ISS -BGMs #Hypertension: needs better control, not currently controlled well. -carvedilol 12.5 BID -Nifedipine 60mg PO QD #Hyperlipidemia: -continue atorvastatin 20mg HS #CAD: s/p bypass -continue clopidogrel #Anemia: Hgb 7.8 -continue ferrous sulfate #Depression/Anxiety: chronic -continue citalopram #FEN -No standing fluids -electrolytes within normal limits -renal diet #Prophylaxis -heparin 5000 subQ -on protonix #Disposition -continue to monitor on med surg Visit type - Emergency Visit Emergency Visit: No - New Patient This patient is new to me today: No - Critical Care Critical Care patient: No
--- NOTE | 2017-09-25 19:26 | PN ---
Teaching Attending Note Name of Resident: Isac Moser ATTENDING PHYSICIAN STATEMENT I saw and evaluated the patient. I reviewed the resident's note and discussed the case with the resident. I agree with the resident's findings and plan as documented. SUBJECTIVE: OBJECTIVE: Vital Signs Temperature 98.6 F 09/25/17 14:00 Pulse Rate 68 09/25/17 14:00 Respiratory Rate 18 09/25/17 14:00 Blood Pressure 185/79 09/25/17 14:00 O2 Sat by Pulse Oximetry (%) 97 09/25/17 09:00 CBCD WBC 5.4 K/mm3 (4.0-10.0) 09/25/17 07:20 RBC 2.72 M/mm3 (4.00-5.60) L 09/25/17 07:20 Hgb 7.7 GM/dL (11.7-16.9) L 09/25/17 07:20 Hct 23.7 % (35.4-49) L 09/25/17 07:20 MCV 87.1 fl (80-96) 09/25/17 07:20 MCHC 32.5 g/dl (32.0-35.9) 09/25/17 07:20 RDW 19.3 % (11.9-15.9) H 09/25/17 07:20 Plt Count 233 K/MM3 (134-434) 09/25/17 07:20 MPV 6.5 fl (7.5-11.1) L 09/25/17 07:20 CMP Sodium 146 mmol/L (136-145) H 09/25/17 07:20 Potassium 4.4 mmol/L (3.5-5.1) 09/25/17 07:20 Chloride 110 mmol/L (98-107) H 09/25/17 07:20 Carbon Dioxide 29 mmol/L (21-32) 09/25/17 07:20 Anion Gap 7 (8-16) L 09/25/17 07:20 BUN 96 mg/dL (7-18) H 09/25/17 07:20 Creatinine 4.5 mg/dL (0.7-1.3) H 09/25/17 07:20 Creat Clearance w eGFR 12.98 (>60) 09/25/17 07:20 Random Glucose 59 mg/dL (74-106) L 09/25/17 07:20 Calcium 7.7 mg/dL (8.5-10.1) L 09/25/17 07:20 Total Bilirubin 0.5 mg/dL (0.2-1.0) 09/25/17 07:20 AST 13 U/L (15-37) L 09/25/17 07:20 ALT 17 U/L (12-78) 09/25/17 07:20 Alkaline Phosphatase 103 U/L (45-117) 09/25/17 07:20 Total Protein 6.7 g/dl (6.4-8.2) 09/25/17 07:20 Albumin 2.7 g/dl (3.4-5.0) L 09/25/17 07:20 Current Medications Generic Name Dose Route Start Last Admin Trade Name Freq PRN Reason Stop Dose Admin Atorvastatin Calcium 20 mg 09/21/17 22:00 09/24/17 21:31 Lipitor - PO 20 mg HS ROSIE Administration Carvedilol 12.5 mg 09/21/17 22:00 09/25/17 10:59 Coreg - PO 12.5 mg BID ROSIE Administration Cholecalciferol 1,000 unit 09/22/17 10:00 09/25/17 10:59 Vitamin D3 - PO 1,000 unit DAILY ROSIE Administration Citalopram Hydrobromide 20 mg 09/22/17 10:00 09/25/17 10:59 Celexa - PO 20 mg DAILY ROSIE Administration Clopidogrel Bisulfate 75 mg 09/21/17 22:00 09/24/17 21:31 Plavix - PO 75 mg HS ROSIE Administration Docusate Sodium 300 mg 09/21/17 22:00 09/24/17 21:30 Colace - PO 300 mg HS ROSIE Administration Ferrous Sulfate 325 mg 09/22/17 10:00 09/25/17 10:59 Feosol - PO 325 mg DAILY ROSIE Administration Furosemide 40 mg 09/26/17 10:00 Lasix Injection - IVPUSH DAILY [facility] Gabapentin 100 mg 09/22/17 10:00 09/25/17 10:59 Neurontin - PO 100 mg DAILY ROSIE Administration Heparin Sodium (Porcine) 5,000 unit 09/21/17 22:00 09/25/17 14:37 Heparin - SQ Not Given TID [facility] Insulin Aspart 1 vial 09/24/17 07:00 09/25/17 16:38 Novolog Vial Sliding Scale - SQ 8 units ACHS ROSIE Administration Protocol Insulin Detemir 15 units 09/21/17 22:00 09/24/17 21:27 Levemir Vial SQ 15 units HS ROSIE Administration Nifedipine 60 mg 09/25/17 10:00 09/25/17 10:59 Procardia Xl - PO 60 mg DAILY ROSIE Administration Polyethylene Glycol 17 gm 09/22/17 10:00 09/25/17 10:59 Miralax (For Daily Use) - PO 17 gm DAILY ROSIE Administration Sucralfate 1 gm 09/21/17 22:00 09/25/17 10:59 Carafate - PO 1 gm BID ROSIE Administration Tamsulosin HCl 0.4 mg 09/21/17 22:00 09/24/17 21:31 Flomax - PO 0.4 mg HS ROSIE Administration Intake & Output 09/23/17 09/24/17 09/25/17 09/26/17 23:59 23:59 23:59 23:59 Intake Total 6044 036 3909 Output Total 5000 3600 3750 Balance -6505 -8043 -2550 Weight 83.149 kg 79.577 kg 78.925 kg CXR: BL pleural effusion ASSESSMENT AND PLAN: Patient is a 71 year old male with a past medical history of CKD stage 5 , IDDM , HTN, CHF is admitted to the hospital for fluid retention of 30 lbs weight gain. # Acute Fluid Overload improving with 30LB weight gain his current weight is 100Kg-->83KG--> 79.5K-->78.9KIGHT today ,continue witt and , will discuss with nephro since BUN/cr started to rise no , might need to reduce the dose of Lasix , currently on Lasix 60mg IV BID , on the case. Strict I's/O' s, daily weights. WILL MONITOR #Bl pleural effusion : with hx of CHF , will continue Lasix 60mg BID IV, WILL GET CXR FOR AM. Dr. Donovan will readjust his meds. #Diabetes: insulin dependent, uncontrolled currently, continue levemir 15U, bgm #Hypertension Uncontrolled : carvedilol 12.5 BID, Nifedipine 60mg PO QD, and lasix #Hyperlipidemia: continue atorvastatin 20mg HS #CAD: s/p bypass continue clopidogrel #Anemia: Hgb 7.8--> 7.2 continue ferrous sulfate #Depression/Anxiety: continue citalopram # Hx of BPH on Flomax continue Prophylaxis DVT: heparin 5000 subQ GI Px: sucralfate, will discontinue protonix
[2017-09-25] MEDS: INSULIN DETEMIR 100 UNITS/ML MDV SQ SCH (21:21)
[2017-09-25] MEDS: ATORVASTATIN CA 20 MG TABLET (FP) PO SCH (21:23)
[2017-09-25] MEDS: TAMSULOSIN HCL 0.4 MG CAP.ER.24H (FP) PO SCH (21:23)
[2017-09-25] MEDS: CLOPIDOGREL BISULFATE 75 MG TABLET (FP) PO SCH (21:23)
[2017-09-25] MEDS: DOCUSATE SODIUM 100 MG CAPSULE (FP) PO SCH (21:23)
[2017-09-26] MEDS: HEPARIN NA (PORCINE) 5,000 UNITS/ML 1ML VIAL SQ SCH ×3 (05:59→21:12)
[2017-09-26] MEDS: INSULIN SLIDING SCALE (NOVOLOG) 1 VIAL SQ SCH ×4 (05:59→21:24)
[2017-09-26 07:10] LABS: EOS % 3.4 % (0-4.5); HEMATOCRIT 23.7 % (35.4-49); HEMOGLOBIN 7.7 GM/dL (11.7-16.9); LYMPH % 10.3 % (8-40); MCH 28.2 pg (25.7-33.7); MCHC 32.4 g/dl (32.0-35.9); MEAN CELL VOLUME 87.1 fl (80-96); MEAN PLT VOLUME 6.7 fl (7.5-11.1); MONO % 13.4 % (3.8-10.2); NEUT % 71.9 % (42.8-82.8); PLATELET COUNT 207 K/MM3 (134-434); RBC 2.72 M/mm3 (4.00-5.60); RDW 19.4 % (11.9-15.9)
--- NOTE | 2017-09-26 07:36 | PN ---
Progress Note (short form) - Note Progress Note: CKD Monitor UOP BUN/Cr LUE limb preservation sign over bed as well as wrist band No BP, phlebotomy or IV's to LUE Cont medical management Vein mapping ordered Problem List - Problems (1) CKD (chronic kidney disease) Code(s): N18.9 - CHRONIC KIDNEY DISEASE, UNSPECIFIED Qualifiers: Chronic kidney disease stage: unspecified stage Qualified Code(s): N18.9 - Chronic kidney disease, unspecified (2) Fluid overload Code(s): E87.70 - FLUID OVERLOAD, UNSPECIFIED Qualifiers: Hypervolemia type: other Qualified Code(s): E87.79 - Other fluid overload
[2017-09-26 08:02] LABS: CHLORIDE 105 mmol/L (98-107); POTASSIUM 3.9 mmol/L (3.5-5.1); SODIUM 145 mmol/L (136-145)
[2017-09-26 08:13] LABS: ALBUMIN 2.6 g/dl (3.4-5.0); ALK PHOS 100 U/L (45-117); ANION GAP 12 (8-16); BILIRUBIN,TOTAL 0.6 mg/dL (0.2-1.0); BLOOD UREA NITROGEN 102 mg/dL (7-18); CALCIUM 7.9 mg/dL (8.5-10.1); CO2 28 mmol/L (21-32); CREATININE 4.4 mg/dL (0.7-1.3); GLUCOSE,RANDOM 94 mg/dL (74-106); SGOT/AST 14 U/L (15-37); SGPT/ALT 15 U/L (12-78); TOT PROT 6.5 g/dl (6.4-8.2)
[2017-09-26] MEDS ORDERED: PT OWN MED DRAWER 7, Y5N ONE (10:09)
--- NOTE | 2017-09-26 10:09 | SPA.PREOP ---
- PRE-OP NOTE Dx: ESRD Planned Procedure: LUE AVF, possible graft Surgeon: Jenifer Mcneil DO Consent: To be obtained after surgeon explains all risks, benefits and alternatives. Last Vital Signs Temp Pulse Resp BP Pulse Ox 97.8 F 56 L 20 160/80 96 09/26/17 06:00 09/26/17 06:00 09/26/17 06:00 09/26/17 06:00 09/25/17 20:15 Lab Results WBC 5.0 K/mm3 (4.0-10.0) 09/26/17 05:05 RBC 2.72 M/mm3 (4.00-5.60) L 09/26/17 05:05 Hgb 7.7 GM/dL (11.7-16.9) L 09/26/17 05:05 Hct 23.7 % (35.4-49) L 09/26/17 05:05 MCV 87.1 fl (80-96) 09/26/17 05:05 MCHC 32.4 g/dl (32.0-35.9) 09/26/17 05:05 RDW 19.4 % (11.9-15.9) H 09/26/17 05:05 Plt Count 207 K/MM3 (134-434) 09/26/17 05:05 Sodium 145 mmol/L (136-145) 09/26/17 05:05 Potassium 3.9 mmol/L (3.5-5.1) 09/26/17 05:05 Chloride 105 mmol/L (98-107) 09/26/17 05:05 Carbon Dioxide 28 mmol/L (21-32) 09/26/17 05:05 Anion Gap 12 (8-16) 09/26/17 05:05 BUN 102 mg/dL (7-18) H 09/26/17 05:05 Creatinine 4.4 mg/dL (0.7-1.3) H 09/26/17 05:05 Random Glucose 94 mg/dL (74-106) D 09/26/17 05:05 Calcium 7.9 mg/dL (8.5-10.1) L 09/26/17 05:05 INR 1.31 (0.82-1.09) H 09/21/17 15:42 - ASSESSMENT/PLAN Problem List - Problems (1) CKD (chronic kidney disease) Assessment/Plan: 1. NPO after midnight except po meds 2. GI/DVT PPX 3. Medical optimization / clearance 4. Vein mapping Code(s): N18.9 - CHRONIC KIDNEY DISEASE, UNSPECIFIED Qualifiers: Chronic kidney disease stage: unspecified stage Qualified Code(s): N18.9 - Chronic kidney disease, unspecified Visit type - Case Type Case Type: ED Admission
[2017-09-26] MEDS: POLYETHYLENE GLYCOL 3350 119 GM BTL PO SCH (10:12)
[2017-09-26] MEDS: NIFEdipine E.R 60 MG TABLET (UD) PO SCH (10:12)
[2017-09-26] MEDS: GABAPENTIN 100 MG CAPSULE (FP) PO SCH (10:12)
[2017-09-26] MEDS: FUROSEMIDE 40 MG/4 ML INJECTABLE VIAL IVPUSH SCH (10:12)
[2017-09-26] MEDS: CITALOPRAM HYDROBROMIDE 20 MG TABLET (FP) PO SCH (10:12)
[2017-09-26] MEDS: CARVEDILOL 12.5 MG TABLET (FP) PO SCH ×2 (10:12→21:12)
[2017-09-26] MEDS: SUCRALFATE 1 GM TABLET (FP) PO SCH (10:13)
[2017-09-26] MEDS: CHOLECALCIFEROL (VITAMIN D3) 1,000 UNIT TABLET (FP) PO SCH (10:13)
[2017-09-26] MEDS: FERROUS SO4 325 MG TABLET (FP) PO SCH (10:13)
--- NOTE | 2017-09-26 13:17 | PN ---
Progress Note, Physician History of Present Illness: Pt seen and examined at bedside. He is awake and appears comfortable. - Current Medication List Current Medications: Active Medications Atorvastatin Calcium (Lipitor -) 20 mg PO HS [facility] Last Admin: 09/25/17 21:23 Dose: 20 mg Carvedilol (Coreg -) 12.5 mg PO BID [facility] Last Admin: 09/26/17 10:12 Dose: 12.5 mg Cholecalciferol (Vitamin D3 -) 1,000 unit PO DAILY [facility] Last Admin: 09/26/17 10:13 Dose: 1,000 unit Citalopram Hydrobromide (Celexa -) 20 mg PO DAILY [facility] Last Admin: 09/26/17 10:12 Dose: 20 mg Docusate Sodium (Colace -) 300 mg PO HS [facility] Last Admin: 09/25/17 21:23 Dose: 300 mg Ferrous Sulfate (Feosol -) 325 mg PO DAILY [facility] Last Admin: 09/26/17 10:13 Dose: 325 mg Furosemide (Lasix Injection -) 40 mg IVPUSH DAILY [facility] Last Admin: 09/26/17 10:12 Dose: 40 mg Gabapentin (Neurontin -) 100 mg PO DAILY [facility] Last Admin: 09/26/17 10:12 Dose: 100 mg Heparin Sodium (Porcine) (Heparin -) 5,000 unit SQ TID [facility] Last Admin: 09/26/17 05:59 Dose: 5,000 unit Insulin Aspart (Novolog Vial Sliding Scale -) 1 vial SQ [facility] PRN Reason: Protocol Last Admin: 09/26/17 11:20 Dose: Not Given Insulin Detemir (Levemir Vial) 15 units SQ HS [facility] Last Admin: 09/25/17 21:21 Dose: 15 units Nifedipine (Procardia Xl -) 60 mg PO DAILY [facility] Last Admin: 09/26/17 10:12 Dose: 60 mg Polyethylene Glycol (Miralax (For Daily Use) -) 17 gm PO DAILY [facility] Last Admin: 09/26/17 10:12 Dose: 17 gm Sucralfate (Carafate -) 1 gm PO BID [facility] Last Admin: 09/26/17 10:13 Dose: 1 gm Tamsulosin HCl (Flomax -) 0.4 mg PO HS [facility] Last Admin: 09/25/17 21:23 Dose: 0.4 mg - Objective Vital Signs: Vital Signs Temperature 97.8 F 09/26/17 10:53 Pulse Rate 57 L 09/26/17 10:53 Respiratory Rate 18 09/26/17 10:53 Blood Pressure 148/68 09/26/17 10:53 O2 Sat by Pulse Oximetry (%) 96 09/25/17 20:15 Constitutional: Yes: Calm Eyes: Yes: Conjunctiva Clear HENT: Yes: Atraumatic Cardiovascular: Yes: S1, S2 Respiratory: Yes: On Nasal O2 Gastrointestinal: Yes: Soft Genitourinary: Yes: Witt Present Musculoskeletal: Yes: WNL Edema: Yes Edema: LLE: Trace, RLE: Trace Neurological: Yes: Oriented Psychiatric: Yes: Oriented Labs: CBC, BMP 09/26/17 05:05 09/26/17 05:05 INR, PTT INR 1.31 (0.82-1.09) H 09/21/17 15:42 Problem List - Problems (1) Fluid overload Code(s): E87.70 - FLUID OVERLOAD, UNSPECIFIED Qualifiers: Hypervolemia type: other Qualified Code(s): E87.79 - Other fluid overload (2) CKD (chronic kidney disease) Code(s): N18.9 - CHRONIC KIDNEY DISEASE, UNSPECIFIED Qualifiers: Chronic kidney disease stage: unspecified stage Qualified Code(s): N18.9 - Chronic kidney disease, unspecified (3) Urinary retention Code(s): R33.9 - RETENTION OF URINE, UNSPECIFIED (4) Anemia Code(s): D64.9 - ANEMIA, UNSPECIFIED Qualifiers: Assessment/Plan Current Medications Generic Name Dose Route Start Last Admin Trade Name David PRN Reason Stop Dose Admin Atorvastatin Calcium 20 mg 09/21/17 22:00 09/25/17 21:23 Lipitor - PO 20 mg HS ROSIE Administration Carvedilol 12.5 mg 09/21/17 22:00 09/26/17 10:12 Coreg - PO 12.5 mg BID ROSIE Administration Cholecalciferol 1,000 unit 09/22/17 10:00 09/26/17 10:13 Vitamin D3 - PO 1,000 unit DAILY ROSIE Administration Citalopram Hydrobromide 20 mg 09/22/17 10:00 09/26/17 10:12 Celexa - PO 20 mg DAILY ROSIE Administration Docusate Sodium 300 mg 09/21/17 22:00 09/25/17 21:23 Colace - PO 300 mg HS ROSIE Administration Ferrous Sulfate 325 mg 09/22/17 10:00 09/26/17 10:13 Feosol - PO 325 mg DAILY ROSIE Administration Furosemide 40 mg 09/26/17 10:00 09/26/17 10:12 Lasix Injection - IVPUSH 40 mg DAILY ROSIE Administration Gabapentin 100 mg 09/22/17 10:00 09/26/17 10:12 Neurontin - PO 100 mg DAILY ROSIE Administration Heparin Sodium (Porcine) 5,000 unit 09/21/17 22:00 09/26/17 05:59 Heparin - SQ 5,000 unit TID ROSIE Administration Insulin Aspart 1 vial 09/24/17 07:00 09/26/17 11:20 Novolog Vial Sliding Scale - SQ Not Given ACHS [facility] Protocol Insulin Detemir 15 units 09/21/17 22:00 09/25/17 21:21 Levemir Vial SQ 15 units HS ROSIE Administration Nifedipine 60 mg 09/25/17 10:00 09/26/17 10:12 Procardia Xl - PO 60 mg DAILY ROSIE Administration Polyethylene Glycol 17 gm 09/22/17 10:00 09/26/17 10:12 Miralax (For Daily Use) - PO 17 gm DAILY ROSIE Administration Sucralfate 1 gm 09/21/17 22:00 09/26/17 10:13 Carafate - PO 1 gm BID ROSIE Administration Tamsulosin HCl 0.4 mg 09/21/17 22:00 09/25/17 21:23 Flomax - PO 0.4 mg HS ROSIE Administration Impression 1. CKD 2. anemia 3. HTN 4. Chol 5. DM 6. BPH 7. CAD 8. urinary retention with chronic witt 9. GI bleed 10. fluid overload Plan - recommend stopping carafate - cont lasix - called vascular surgery, pt will get fistula placed tomorrow - vascular will evaluate vein mapping - monitor urine output - will follow Dr Donovan
--- NOTE | 2017-09-26 16:16 | PN ---
Physical Exam: SUBJECTIVE: Patient seen and examined at bedside. states that he is mildly SOB but significantly improved and almost back to normal. No chest pain, no abdominal pain. Gustavo is still in. Pt lost 2550cc net over 24hours and nearly 35 -40 pounds since admission from recovery from fluid overload. OBJECTIVE: Vital Signs Period Temp Pulse Resp BP Sys/Rodriguez Pulse Ox Last 24 Hr 97.5 F-98.2 F 55-66 18-20 144-160/59-80 96-96 GENERAL: Awake, alert, and fully oriented, in no acute distress. HEAD: Normal with no signs of trauma. EYES: Pupils equal, round and reactive to light, extraocular movements intact, sclera anicteric, conjunctiva clear. No lid lag. EARS, NOSE, THROAT: Ears normal, nares patent, oropharynx clear without exudates. Moist mucous membranes. NECK: Normal range of motion, supple without lymphadenopathy LUNGS: Breath sounds equal, clear to auscultation bilaterally. improved lung exam HEART: Regular rate and rhythm, normal S1 and S2 without murmur, rub or gallop. ABDOMEN: less distended, bowel sounds present, non-tender to palpation MUSCULOSKELETAL: Normal range of motion at all joints. No bony deformities or tenderness. No CVA tenderness. LOWER EXTREMITIES: 2+ pulses, warm, well-perfused. No calf tenderness. improved edema in b/l extremities NEUROLOGICAL: Cranial nerves II-XII intact. Normal speech. Normal gait. PSYCHIATRIC: Cooperative. Good eye contact. Appropriate mood and affect. SKIN: Warm, dry, normal turgor, no rashes or lesions noted, normal capillary refill. Laboratory Results - last 24 hr 09/25/17 09/25/17 09/26/17 16:36 21:18 05:05 WBC 5.0 RBC 2.72 L Hgb 7.7 L Hct 23.7 L MCV 87.1 MCH 28.2 MCHC 32.4 RDW 19.4 H Plt Count 207 MPV 6.7 L Neutrophils % 71.9 Lymphocytes % 10.3 Monocytes % 13.4 H Eosinophils % 3.4 Basophils % 1.0 Sodium Potassium Chloride Carbon Dioxide Anion Gap BUN Creatinine Creat Clearance w eGFR POC Glucometer 313 253 Random Glucose Calcium Phosphorus Magnesium Total Bilirubin AST ALT Alkaline Phosphatase Total Protein Albumin 02/21/18 02/21/18 02/21/18 05:05 05:58 11:08 WBC RBC Hgb Hct MCV MCH MCHC RDW Plt Count MPV Neutrophils % Lymphocytes % Monocytes % Eosinophils % Basophils % Sodium 145 Potassium 3.9 Chloride 105 Carbon Dioxide 28 Anion Gap 12 BUN 102 H Creatinine 4.4 H Creat Clearance w eGFR 13.33 POC Glucometer 117 150 Random Glucose 94 D Calcium 7.9 L Phosphorus 5.0 H Magnesium 2.0 Total Bilirubin 0.6 AST 14 L ALT 15 Alkaline Phosphatase 100 Total Protein 6.5 Albumin 2.6 L Active Medications Generic Name Dose Route Start Last Admin Trade Name Andrzejq PRN Reason Stop Dose Admin Atorvastatin Calcium 20 mg 09/21/17 22:00 09/25/17 21:23 Lipitor - PO 20 mg HS ROSIE Administration Carvedilol 12.5 mg 09/21/17 22:00 09/26/17 10:12 Coreg - PO 12.5 mg BID ROSIE Administration Cholecalciferol 1,000 unit 09/22/17 10:00 09/26/17 10:13 Vitamin D3 - PO 1,000 unit DAILY [facility]IE Administration Citalopram Hydrobromide 20 mg 09/22/17 10:00 09/26/17 10:12 Celexa - PO 20 mg DAILY ROSIE Administration Docusate Sodium 300 mg 09/21/17 22:00 09/25/17 21:23 Colace - PO 300 mg HS ROSIE Administration Ferrous Sulfate 325 mg 09/22/17 10:00 09/26/17 10:13 Feosol - PO 325 mg DAILY [facility]IE Administration Furosemide 40 mg 09/26/17 10:00 09/26/17 10:12 Lasix Injection - IVPUSH 40 mg DAILY [facility]IE Administration Gabapentin 100 mg 09/22/17 10:00 09/26/17 10:12 Neurontin - PO 100 mg DAILY [facility]IE Administration Heparin Sodium (Porcine) 5,000 unit 09/21/17 22:00 09/26/17 14:31 Heparin - SQ 5,000 unit TID ROSIE Administration Insulin Aspart 1 vial 09/24/17 07:00 09/26/17 11:20 Novolog Vial Sliding Scale - SQ Not Given ACHS [facility] Protocol Insulin Detemir 15 units 09/21/17 22:00 09/25/17 21:21 Levemir Vial SQ 15 units HS [facility] Administration Nifedipine 60 mg 09/25/17 10:00 02/21/18 10:12 Procardia Xl - PO 60 mg DAILY [facility]IE Administration Polyethylene Glycol 17 gm 09/22/17 10:00 09/26/17 10:12 Miralax (For Daily Use) - PO 17 gm DAILY [facility]IE Administration Tamsulosin HCl 0.4 mg 09/21/17 22:00 09/25/17 21:23 Flomax - PO 0.4 mg HS ROSIE Administration ASSESSMENT/PLAN: 71 year old male with a past medical history of ESRD (not on HD), IDDM, HTN, CHF is admitted to the hospital for fluid retention 2/2 end-stage renal disease vs CHF #Fluid Retention 2.2 ESRD: likely 2/2 ESRD vs CHF -witt is in - monitor I's and O's, consider removing if pt can spontaneously urinate -continue lasix 40 QD -Nephro consult appreciated Dr. Donovan -will need dialysis on this admission -Flomax 0.4 HS -daily weights -NPO after midnight for AVF/graft tomorrow per dr. lorenzo #CHF: possible that CHF is a contributing factor -continue lasix 40 IV QD -CXR: vascular congestion on admission #Diabetes: insulin dependent, uncontrolled currently -Levemir 15U -ISS -BGMs #Hypertension: needs better control, not currently controlled well. -carvedilol 12.5 BID -Nifedipine 60mg PO QD #Hyperlipidemia: -continue atorvastatin 20mg HS #CAD: s/p bypass -continue clopidogrel #Anemia: Hgb 7.8 -continue ferrous sulfate #Depression/Anxiety: chronic -continue citalopram #FEN -No standing fluids -electrolytes within normal limits -renal diet #Prophylaxis -heparin 5000 subQ -on protonix #Disposition -continue to monitor on med surg Visit type - Emergency Visit Emergency Visit: No - New Patient This patient is new to me today: No - Critical Care Critical Care patient: No
--- NOTE | 2017-09-26 18:14 | PN ---
Teaching Attending Note Name of Resident: Isac Moser ATTENDING PHYSICIAN STATEMENT I saw and evaluated the patient. I reviewed the resident's note and discussed the case with the resident. I agree with the resident's findings and plan as documented. SUBJECTIVE: No fever or chills, till has mild SOB , but improved . no abd pain . OBJECTIVE: NAD, AAOx 3 CV: RRR Lungs: bibasilar crackles Ext : no edema ASSESSMENT AND PLAN: 71 year old male with a past medical history of CKD stage 5 , IDDM, HTN, and CHF who presented with fluid overload after missing his out pt diuretics . 1- CKD with fluid overload, improved - lasix 40 daily - taper down o2 - vein mapping done - for AVF tomorrow 2- DM : cont SSI and 15 units of levemir at HS 3- HTN: cont coreg and nifedipine 4- CAD : coreg , statin, hold plavix for procedure dispo : hopefully can dc tomorrow . redd witt .
[2017-09-26] MEDS: TAMSULOSIN HCL 0.4 MG CAP.ER.24H (FP) PO SCH (21:12)
[2017-09-26] MEDS: DOCUSATE SODIUM 100 MG CAPSULE (FP) PO SCH (21:12)
[2017-09-26] MEDS: ATORVASTATIN CA 20 MG TABLET (FP) PO SCH (21:12)
[2017-09-26] MEDS: INSULIN DETEMIR 100 UNITS/ML MDV SQ SCH (21:16)
[2017-09-26] MEDS ORDERED: INSULIN (NOVOLOG) ASPART 100 UNITS/ML 10ML VIAL ONE (21:22)
[2017-09-27] MEDS ORDERED: DEXTROSE 50%-WATER - 25 GM/50 ML VIAL ONE (05:59)
[2017-09-27] MEDS ORDERED: DEXTROSE 50%-WATER - 25 GM/50 ML VIAL IVPUSH ONE (06:01)
[2017-09-27] MEDS: HEPARIN NA (PORCINE) 5,000 UNITS/ML 1ML VIAL SQ SCH ×3 (06:23→21:39)
[2017-09-27] MEDS: INSULIN SLIDING SCALE (NOVOLOG) 1 VIAL SQ SCH ×2 (06:26→11:55)
[2017-09-27 07:44] LABS: HEMATOCRIT 24.7 % (35.4-49); HEMOGLOBIN 7.9 GM/dL (11.7-16.9); MCH 28.1 pg (25.7-33.7); MEAN CELL VOLUME 87.8 fl (80-96); MEAN PLT VOLUME 6.6 fl (7.5-11.1); PLATELET COUNT 211 K/MM3 (134-434); RBC 2.82 M/mm3 (4.00-5.60); RDW 19.5 % (11.9-15.9); WHITE BLOOD COUNT 5.9 K/mm3 (4.0-10.0)
[2017-09-27 08:18] LABS: CALCIUM 8.1 mg/dL (8.5-10.1); CHLORIDE 103 mmol/L (98-107); SODIUM 143 mmol/L (136-145)
[2017-09-27 08:21] LABS: ANION GAP 11 (8-16); BLOOD UREA NITROGEN 102 mg/dL (7-18); CO2 29 mmol/L (21-32); CREATININE 4.3 mg/dL (0.7-1.3); GLUCOSE,RANDOM 119 mg/dL (74-106)
--- NOTE | 2017-09-27 08:42 | PN ---
Physical Exam: SUBJECTIVE: Patient seen and examined at bedside. Overnight patient had a BG of 55, night team gave an amp of D50 and patient improved to >100. Upon examination , patient denies any acute complaints. States that he does not have any chest pain, shortness of breath, nausea, vomiting, diarrhea. States that the swelling has improved. Patient is aware of the procedure he is getting today. OBJECTIVE: Vital Signs Period Temp Pulse Resp BP Sys/Rodriguez Pulse Ox Last 24 Hr 97.8 F-99.1 F 55-63 18-20 121-148/55-68 96-97 GENERAL: Awake, alert, and fully oriented, in no acute distress. NECK: Normal range of motion, supple without lymphadenopathy LUNGS: Breath sounds equal, clear to auscultation bilaterally. improved lung exam HEART: Regular rate and rhythm, normal S1 and S2 without murmur, rub or gallop. ABDOMEN: less distended, bowel sounds present, non-tender to palpation LOWER EXTREMITIES: 2+ pulses, warm, well-perfused. No calf tenderness. no edema palpated bilaterally SKIN: Warm, dry, normal turgor, no rashes or lesions noted, normal capillary refill. Laboratory Results - last 24 hr 09/26/17 09/26/17 09/26/17 11:08 17:04 21:15 WBC RBC Hgb Hct MCV MCH MCHC RDW Plt Count MPV Sodium Potassium Chloride Carbon Dioxide Anion Gap BUN Creatinine POC Glucometer 150 350 327 Random Glucose Calcium 09/27/17 09/27/17 09/27/17 05:53 06:55 06:55 WBC 5.9 RBC 2.82 L Hgb 7.9 L Hct 24.7 L MCV 87.8 MCH 28.1 MCHC 32.0 RDW 19.5 H Plt Count 211 MPV 6.6 L Sodium 143 Potassium 4.0 Chloride 103 Carbon Dioxide 29 Anion Gap 11 BUN 102 H Creatinine 4.3 H POC Glucometer 55 Random Glucose 119 H D Calcium 8.1 L 09/27/17 06:55 WBC RBC Hgb Hct MCV MCH MCHC RDW Plt Count MPV Sodium Potassium Chloride Carbon Dioxide Anion Gap BUN Creatinine POC Glucometer 118 Random Glucose Calcium Active Medications Generic Name Dose Route Start Last Admin Trade Name Freq PRN Reason Stop Dose Admin Atorvastatin Calcium 20 mg 09/21/17 22:00 09/26/17 21:12 Lipitor - PO 20 mg HS ROSIE Administration Carvedilol 12.5 mg 09/21/17 22:00 09/26/17 21:12 Coreg - PO 12.5 mg BID ROSIE Administration Cholecalciferol 1,000 unit 09/22/17 10:00 09/26/17 10:13 Vitamin D3 - PO 1,000 unit DAILY ROSIE Administration Citalopram Hydrobromide 20 mg 09/22/17 10:00 09/26/17 10:12 Celexa - PO 20 mg DAILY ROSIE Administration Docusate Sodium 300 mg 09/21/17 22:00 09/26/17 21:12 Colace - PO 300 mg HS ROSIE Administration Ferrous Sulfate 325 mg 09/22/17 10:00 09/26/17 10:13 Feosol - PO 325 mg DAILY ROSIE Administration Furosemide 40 mg 09/26/17 10:00 09/26/17 10:12 Lasix Injection - IVPUSH 40 mg DAILY ROSIE Administration Gabapentin 100 mg 09/22/17 10:00 09/26/17 10:12 Neurontin - PO 100 mg DAILY ROSIE Administration Heparin Sodium (Porcine) 5,000 unit 09/21/17 22:00 09/27/17 06:23 Heparin - SQ 5,000 unit TID ROSIE Administration Insulin Aspart 1 vial 09/24/17 07:00 09/27/17 06:26 Novolog Vial Sliding Scale - SQ Not Given ACHS [facility] Protocol Insulin Detemir 15 units 09/21/17 22:00 09/26/17 21:16 Levemir Vial SQ 15 units HS ROSIE Administration Nifedipine 60 mg 09/25/17 10:00 09/26/17 10:12 Procardia Xl - PO 60 mg DAILY ROSIE Administration Polyethylene Glycol 17 gm 09/22/17 10:00 09/26/17 10:12 Miralax (For Daily Use) - PO 17 gm DAILY ROSIE Administration Tamsulosin HCl 0.4 mg 09/21/17 22:00 09/26/17 21:12 Flomax - PO 0.4 mg HS ROSIE Administration ASSESSMENT/PLAN: 71 year old male with a past medical history of ESRD (not on HD), IDDM, HTN, CHF is admitted to the hospital for fluid retention 2/2 end-stage renal disease vs CHF #Fluid Retention 2.2 ESRD: likely 2/2 ESRD - to go for AVF today -eduar is in - monitor I's and O's - patient is allegedly retaining if witt is removed. Patient's I's/O's are -4400 recorded in the system, 4900 put out by witt -continue lasix 40 QD -Nephro consult appreciated Dr. Donovan -will need dialysis on this admission -Flomax 0.4 HS -daily weights -NPO TODAY for AVF/graft today per dr. lorenzo - can restart plavix tomorrow after procedure #CHF: possible that CHF is a contributing factor -continue lasix 40 IV QD -CXR: vascular congestion on admission #Diabetes: patient was hypoglycemic overnight - had gotten 23 U (15 levemir and 8 short acting) -May consider decreasing levemir 15 to a lower dose -ISS -BGMs #Hypertension: needs better control, not currently controlled well. -carvedilol 12.5 BID -Nifedipine 60mg PO QD #Hyperlipidemia: -continue atorvastatin 20mg HS #CAD: s/p bypass -continue clopidogrel #Anemia: Hgb 7.8 -continue ferrous sulfate #Depression/Anxiety: chronic -continue citalopram #FEN -No standing fluids -electrolytes within normal limits -renal diet #Prophylaxis -heparin 5000 subQ -on protonix #Disposition -continue to monitor on med surg -may potentially DC later this afternoon if surgery is well. Visit type - Emergency Visit Emergency Visit: No - New Patient This patient is new to me today: No - Critical Care Critical Care patient: No
[2017-09-27] MEDS ORDERED: PT OWN MED DRAWER 7, Y5N ONE (09:37)
[2017-09-27] MEDS: FUROSEMIDE 40 MG/4 ML INJECTABLE VIAL IVPUSH SCH (09:38)
[2017-09-27] MEDS: CITALOPRAM HYDROBROMIDE 20 MG TABLET (FP) PO SCH (09:38)
[2017-09-27] MEDS: NIFEdipine E.R 60 MG TABLET (UD) PO SCH (09:39)
[2017-09-27] MEDS: CHOLECALCIFEROL (VITAMIN D3) 1,000 UNIT TABLET (FP) PO SCH (09:39)
[2017-09-27] MEDS: POLYETHYLENE GLYCOL 3350 119 GM BTL PO SCH (09:39)
[2017-09-27] MEDS: GABAPENTIN 100 MG CAPSULE (FP) PO SCH (09:39)
[2017-09-27] MEDS: CARVEDILOL 12.5 MG TABLET (FP) PO SCH ×2 (09:39→21:39)
[2017-09-27] MEDS: FERROUS SO4 325 MG TABLET (FP) PO SCH (09:39)
--- NOTE | 2017-09-27 10:48 | PN ---
Teaching Attending Note Name of Resident: Isac Moser ATTENDING PHYSICIAN STATEMENT I saw and evaluated the patient. I reviewed the resident's note and discussed the case with the resident. I agree with the resident's findings and plan as documented. SUBJECTIVE: no pain , no SOB, events over night remarkable for hypoglycemia early this am. s /p D50 with improvement in sx and sugar OBJECTIVE: NAD, AAOx 3 CV: RRR Lungs: CTAB today Ext: no edema ASSESSMENT AND PLAN: 71 year old male with a past medical history of CKD stage 5 , IDDM, HTN, CAD, s/ p PCI and stenting , s/p CABG, PAD s/p bypass sx , HLP, anemia of CKD , urinary retention and chronic diastolic CHF who presented with fluid overload after missing his out pt diuretics . 1-Volume overload due to CKD and possible component of acute diastolic CHF . - switch to po lasix 40 daily - check Sat O2 off O2 2- CKD : - for AVF today - No indication for starting HD 3- DM: with hypoglycemia this am. - dc Hs coverage of SSI - decrease levemir to 12 units HS. 3- HTN: cont coreg and nifedipine 4- CAD : coreg , statin, hold plavix for procedure -will check with vascular re. timing to resume plavix dispo : will dc today after the procedure
[2017-09-27] MEDS ORDERED: HEPARIN NA (PORCINE) 5,000 UNITS/ML 1ML VIAL ONE (14:10)
[2017-09-27] MEDS ORDERED: LIDOCAINE HCL 1%, 10 MG/ML (20ML VIAL) ONE (14:10)
[2017-09-27] MEDS ORDERED: ceFAZolin SODIUM 1 GM VIAL ONE (14:47)
[2017-09-27] MEDS ORDERED: PROPOFOL 20 ML ONE ×2 (14:47)
[2017-09-27] MEDS ORDERED: MIDAZOLAM HCL 2 MG/2 ML SINGLE DOSE VIAL ONE (14:48)
[2017-09-27] MEDS ORDERED: ceFAZolin SODIUM 1 GM VIAL IVPB ONE (15:13)
[2017-09-27] MEDS ORDERED: PHENYLEPHRINE HCL 10 MG/1 ML SINGLE DOSE VIAL ONE (15:31)
[2017-09-27] MEDS ORDERED: DEXAMETHASONE SOD PHOSPHATE 4 MG/1 ML VIAL ONE (15:59)
[2017-09-27] MEDS ORDERED: ONDANSETRON 4 MG/2 ML VIAL ONE (15:59)
[2017-09-27] MEDS ORDERED: INSULIN SLIDING SCALE (NOVOLOG) 1 VIAL SQ SCH (16:30)
[2017-09-27] MEDS ORDERED: POVIDONE-IODINE OINTMENT 10% - 28.4 GM TUBE ONE (16:36)
--- NOTE | 2017-09-27 17:12 | OP ---
Operative Note - Note: Operative Date: 09/27/17 Pre-Operative Diagnosis: ESRD Operation: Creation of left AVF Post-Operative Diagnosis: Same as Pre-op Surgeon: Praful Mcneil Anesthesia: General Estimated Blood Loss (mls): 25 Operative Report Dictated: Yes
--- NOTE | 2017-09-27 18:12 | PN ---
Progress Note, Physician History of Present Illness: Pt seen and examined at bedside. He is going for AV fistula today. HE denies shortness of breath. - Current Medication List Current Medications: Active Medications Atorvastatin Calcium (Lipitor -) 20 mg PO HS ROSIE Carvedilol (Coreg -) 12.5 mg PO BID ROSIE Cholecalciferol (Vitamin D3 -) 1,000 unit PO DAILY ROSIE Citalopram Hydrobromide (Celexa -) 20 mg PO DAILY ROSIE Docusate Sodium (Colace -) 300 mg PO HS ROSIE Fentanyl (Sublimaze Injection -) 25 mcg IVPUSH [id number] PRN PRN Reason: PAIN-PACU ORDER X 4 DOSES ONLY Ferrous Sulfate (Feosol -) 325 mg PO DAILY ROSIE Furosemide (Lasix -) 40 mg PO DAILY ROSIE Gabapentin (Neurontin -) 100 mg PO DAILY ROSIE Heparin Sodium (Porcine) (Heparin -) 5,000 unit SQ TID ROSIE Insulin Aspart (Novolog Vial Sliding Scale -) 1 vial SQ TIDAC ROSIE PRN Reason: Protocol Insulin Detemir (Levemir Vial) 12 units SQ HS ROSIE Nifedipine (Procardia Xl -) 60 mg PO DAILY [facility] Polyethylene Glycol (Miralax (For Daily Use) -) 17 gm PO DAILY ROSIE Tamsulosin HCl (Flomax -) 0.4 mg PO 0830 ROSIE - Objective Vital Signs: Vital Signs Temperature 98.4 F 09/27/17 16:58 Pulse Rate 57 L 09/27/17 17:28 Respiratory Rate 16 09/27/17 17:28 Blood Pressure 125/50 09/27/17 17:28 O2 Sat by Pulse Oximetry (%) 97 09/27/17 17:28 Constitutional: Yes: Calm Eyes: Yes: Conjunctiva Clear HENT: Yes: Atraumatic Cardiovascular: Yes: S1, S2 Respiratory: Yes: Rhonchi Gastrointestinal: Yes: Soft Genitourinary: Yes: Witt Present Musculoskeletal: Yes: WNL Edema: LLE: Trace, RLE: Trace Neurological: Yes: Oriented Psychiatric: Yes: Oriented Labs: CBC, BMP 09/27/17 06:55 09/27/17 06:55 INR, PTT INR 1.31 (0.82-1.09) H 09/21/17 15:42 Problem List - Problems (1) Fluid overload Code(s): E87.70 - FLUID OVERLOAD, UNSPECIFIED Qualifiers: Hypervolemia type: other Qualified Code(s): E87.79 - Other fluid overload (2) CKD (chronic kidney disease) Code(s): N18.9 - CHRONIC KIDNEY DISEASE, UNSPECIFIED Qualifiers: Chronic kidney disease stage: unspecified stage Qualified Code(s): N18.9 - Chronic kidney disease, unspecified (3) Urinary retention Code(s): R33.9 - RETENTION OF URINE, UNSPECIFIED (4) Anemia Code(s): D64.9 - ANEMIA, UNSPECIFIED Qualifiers: Assessment/Plan Current Medications Generic Name Dose Route Start Last Admin Trade Name Freq PRN Reason Stop Dose Admin Atorvastatin Calcium 20 mg 09/27/17 22:00 Lipitor - PO HS [facility] Carvedilol 12.5 mg 09/27/17 22:00 Coreg - PO BID [facility] Cholecalciferol 1,000 unit 09/28/17 10:00 Vitamin D3 - PO DAILY [facility] Citalopram Hydrobromide 20 mg 09/28/17 10:00 Celexa - PO DAILY [facility] Docusate Sodium 300 mg 09/27/17 22:00 Colace - PO HS [facility] Fentanyl 25 mcg 09/27/17 17:40 Sublimaze Injection - IVPUSH [id number] PRN PAIN-PACU ORDER X 4 DOSES ONLY Ferrous Sulfate 325 mg 09/28/17 10:00 Feosol - PO DAILY [facility] Furosemide 40 mg 09/28/17 10:00 Lasix - PO DAILY [facility] Gabapentin 100 mg 09/28/17 10:00 Neurontin - PO DAILY [facility] Heparin Sodium (Porcine) 5,000 unit 09/27/17 22:00 Heparin - SQ TID [facility] Insulin Aspart 1 vial 09/28/17 07:00 Novolog Vial Sliding Scale - SQ TIDAC [facility] Protocol Insulin Detemir 12 units 09/27/17 22:00 Levemir Vial SQ HS [facility] Nifedipine 60 mg 09/28/17 10:00 Procardia Xl - PO DAILY [facility] Polyethylene Glycol 17 gm 09/28/17 10:00 Miralax (For Daily Use) - PO DAILY [facility] Tamsulosin HCl 0.4 mg 09/28/17 08:30 Flomax - PO 0830 [facility] Impression 1. CKD 2. anemia 3. HTN 4. Chol 5. DM 6. BPH 7. CAD 8. urinary retention with chronic witt 9. GI bleed 10. fluid overload Plan - av fistula today - cont lasix - renal diet after surgery - maintain witt - monitor urine output - will follow Dr Donovan
[2017-09-27] MEDS ORDERED: INSULIN (NOVOLOG) ASPART 100 UNITS/ML 10ML VIAL ONE (21:38)
[2017-09-27] MEDS ORDERED: DOCUSATE SODIUM 100 MG CAPSULE (FP) PO SCH (22:00)
[2017-09-27] MEDS ORDERED: INSULIN DETEMIR 100 UNITS/ML MDV SQ SCH ×2 (22:00)
[2017-09-27] MEDS ORDERED: ATORVASTATIN CA 20 MG TABLET (FP) PO SCH (22:00)
[2017-09-28] MEDS: INSULIN SLIDING SCALE (NOVOLOG) 1 VIAL SQ SCH ×3 (06:17→16:43)
[2017-09-28] MEDS: HEPARIN NA (PORCINE) 5,000 UNITS/ML 1ML VIAL SQ SCH ×2 (06:18→14:39)
[2017-09-28 07:55] LABS: BASO % 0.2 % (0-2.0); HEMATOCRIT 23.8 % (35.4-49); HEMOGLOBIN 7.7 GM/dL (11.7-16.9); MCH 28.1 pg (25.7-33.7); MCHC 32.1 g/dl (32.0-35.9); MEAN CELL VOLUME 87.6 fl (80-96); MEAN PLT VOLUME 6.8 fl (7.5-11.1); MONO % 8.2 % (3.8-10.2); NEUT % 84.6 % (42.8-82.8); PLATELET COUNT 188 K/MM3 (134-434); RBC 2.72 M/mm3 (4.00-5.60); RDW 19.7 % (11.9-15.9); WHITE BLOOD COUNT 5.2 K/mm3 (4.0-10.0)
[2017-09-28 08:28] LABS: ALBUMIN 2.6 g/dl (3.4-5.0); ANION GAP 14 (8-16); BILIRUBIN,TOTAL 0.5 mg/dL (0.2-1.0); CHLORIDE 99 mmol/L (98-107); CO2 26 mmol/L (21-32); CREATININE 4.6 mg/dL (0.7-1.3); GLUCOSE,RANDOM 293 mg/dL (74-106); POTASSIUM 4.6 mmol/L (3.5-5.1); SGOT/AST 15 U/L (15-37); SGPT/ALT 16 U/L (12-78); SODIUM 139 mmol/L (136-145); TOT PROT 6.7 g/dl (6.4-8.2)
[2017-09-28 08:29] LABS: ALK PHOS 101 U/L (45-117)
[2017-09-28] MEDS ORDERED: TAMSULOSIN HCL 0.4 MG CAP.ER.24H (FP) PO SCH (08:30)
[2017-09-28 08:41] LABS: BLOOD UREA NITROGEN 108 mg/dL (7-18)
--- NOTE | 2017-09-28 09:01 | PN ---
Progress Note (short form) - Note Progress Note: Anesthesiology Post-op POD#1 s/p left AV fistula creation under GA. Pt. feels well, denies pain. VSS. No apparent anesthesia-related issues.
[2017-09-28] MEDS: CARVEDILOL 12.5 MG TABLET (FP) PO SCH (09:13)
[2017-09-28] MEDS ORDERED: FERROUS SO4 325 MG TABLET (FP) PO SCH (10:00)
[2017-09-28] MEDS ORDERED: CHOLECALCIFEROL (VITAMIN D3) 1,000 UNIT TABLET (FP) PO SCH (10:00)
[2017-09-28] MEDS ORDERED: POLYETHYLENE GLYCOL 3350 119 GM BTL PO SCH (10:00)
[2017-09-28] MEDS ORDERED: CITALOPRAM HYDROBROMIDE 20 MG TABLET (FP) PO SCH (10:00)
[2017-09-28] MEDS ORDERED: FUROSEMIDE 40 MG TABLET (FP) PO SCH ×2 (10:00)
[2017-09-28] MEDS ORDERED: CLOPIDOGREL BISULFATE 75 MG TABLET (FP) PO SCH (10:00)
[2017-09-28] MEDS ORDERED: GABAPENTIN 100 MG CAPSULE (FP) PO SCH (10:00)
[2017-09-28] MEDS ORDERED: NIFEdipine E.R. 30 MG TABLET (FP) PO SCH (10:00)
--- NOTE | 2017-09-28 15:50 | DS ---
Physical Exam: SUBJECTIVE: Patient seen and examined at bedside. he is S/p L arm AVF creation. No acute complaints, no pain. OBJECTIVE: Vital Signs Period Temp Pulse Resp BP Sys/Rodriguez Pulse Ox Last 24 Hr 97.5 F-98.6 F 57-74 14-20 105-135/47-71 95-98 PHYSICAL EXAM GENERAL: Awake, alert, and fully oriented, in no acute distress. NECK: Normal range of motion, supple without lymphadenopathy LUNGS: Breath sounds equal, clear to auscultation bilaterally. improved lung exam HEART: Regular rate and rhythm, normal S1 and S2 without murmur, rub or gallop. ABDOMEN: less distended, bowel sounds present, non-tender to palpation LOWER EXTREMITIES: 2+ pulses, warm, well-perfused. No calf tenderness. no edema palpated bilaterally UPPER EXTREMITIES: L arm 2+ pulses, patent AVF auscultated SKIN: Warm, dry, normal turgor, no rashes or lesions noted, normal capillary refill. LABS Laboratory Results - last 24 hr 09/27/17 09/27/17 09/28/17 17:44 21:35 05:45 WBC RBC Hgb Hct MCV MCH MCHC RDW Plt Count MPV Neutrophils % Lymphocytes % Monocytes % Eosinophils % Basophils % Sodium Potassium Chloride Carbon Dioxide Anion Gap BUN Creatinine Creat Clearance w eGFR POC Glucometer 117 365 342 Random Glucose Calcium Total Bilirubin AST ALT Alkaline Phosphatase Total Protein Albumin 09/28/17 09/28/17 09/28/17 07:30 07:30 11:27 WBC 5.2 RBC 2.72 L Hgb 7.7 L Hct 23.8 L MCV 87.6 MCH 28.1 MCHC 32.1 RDW 19.7 H Plt Count 188 MPV 6.8 L Neutrophils % 84.6 H Lymphocytes % 7.0 L D Monocytes % 8.2 Eosinophils % 0.0 D Basophils % 0.2 Sodium 139 Potassium 4.6 Chloride 99 Carbon Dioxide 26 Anion Gap 14 BUN 108 H* Creatinine 4.6 H Creat Clearance w eGFR 12.66 POC Glucometer 306 Random Glucose 293 H D Calcium 8.0 L Total Bilirubin 0.5 AST 15 ALT 16 Alkaline Phosphatase 101 Total Protein 6.7 Albumin 2.6 L IMAGING: CXR 09/24: Cardiomegaly with pulmonary edema and pleural effusions worsened since the prior exam CXR 2/16: At least mild pulmonary vascular congestion and small bilateral pleural effusions with underlying subsegmental atelectasis in both lung bases. HOSPITAL COURSE: Date of Admission:09/22/17 71 year old male with a past medical history of ESRD (not on HD), IDDM, HTN, CHF , who was admitted previously several weeks ago with flu and back pain presents to the hospital for worsening shortness of breath and generalized edema. Patient states that when he was previously discharged from [facility], he was sent to a fdc on Lasix, but the fdc never gave him the lasix to take. He had not taken it since arriving at that fdc. Patient endorsed a 30 pound weight gain over this time frame as well. He was admitted for fluid retention secondary to ESRD. Patient made urine with witt. He was given lasix in the ED and started on a standing dose of 60mg BID. He was given flomax as well. Nephrology was consulted who recommended that patient get AV fistula during this admission. Over the course of 4-5 days, the patient lost nearly 30-40 pounds of weight from diuresis, continuously producing 3500+ cc's of urine per day. Patient's edema had improved and his shortness of breath was also improved. Vascular surgery was consulted. Patient had a L arm AVF creation on 09/27/17. Surgery went uncomplicated and patient was discharged back to his facility with a lasix 40mg daily dose and instructions to follow with nephrology as an outpatient. Date of Discharge: 09/28/17 Minutes to complete discharge: 35 Discharge Summary Reason For Visit: CHRONIC KIDNEY DISEASE/HYPERVOLEMIA Current Active Problems Fluid overload (Acute) CKD (chronic kidney disease) (Chronic) Condition: Improved - Instructions Diet, Activity, Other Instructions: You were admitted to the hospital for fluid retention due to end-stage kidney disease. We treated you with lasix, the water pill, to help reduce the amount of fluid in your body The treatment worked, but your kidneys aren't working well, and so you'll need dialysis in the future. You received an arteriovenous fistula procedure such that you'd be able to get dialysis The fistula takes 6-8 weeks to mature, and you'll have to follow with the vascular surgeon to evaluate patency of the fistula. Medical recommendations: -continue lasix 40mg once a day -continue flomax 0.4mg once a day -continue the rest of your home medications as prescribed -You can remove your dressing on your left arm tomorrow, keep the wound clean -For insulin, take on a sliding scale as follows. Measure your blood sugar before meals and take as follows: Blood sugar Dose (in units) 100-150 0 151-200 2 201-250 4 251-300 6 301-350 8 351-400 10 400+ 12 and CALL YOUR DOCTOR Referrals: Make an appointment with Dr. Caballero, the kidney specialist within 1 week of discharge Make an appointment with Dr. Mcneil, the surgeon who operated to create you AVF, within 1 month of discharge Make an appointment with your primary care physician within 1 week of discharge Referrals: Bernardo Del Valle MD [Primary Care Provider] - 1 Week Praful Mcneil MD [Staff Physician] - 1 Month Ernesto Caballero MD [Staff Physician] - 1 Week Disposition: HOME - Home Medications Comprehensive Discharge Medication List: Ambulatory Orders Cholecalciferol (Vitamin D3) [Vitamin D3] 1,000 unit PO DAILY tablet 09/02/12 Clopidogrel Bisulfate [Clopidogrel] 75 mg PO HS #90 tablet 01/10/16 Carvedilol 12.5 mg PO BID 06/11/17 Ferrous Sulfate [Feosol] 325 mg PO DAILY ud 07/12/17 Docusate Sodium [Colace -] 300 mg PO HS 07/14/17 Insulin Glargine,Hum.rec.anlog [Lantus Solostar PEN -] 15 units SQ HS 07/14/17 Lidocaine 5% Patch [Lidoderm -] 1 patch TP DAILY #7 patch 07/15/17 Insulin Sliding Scale [Novolog Vial Sliding Scale -] 1 vial SQ TIDAC PRN Simvastatin 40 mg PO HS 07/23/17 Pantoprazole Sodium [Protonix -] 40 mg PO DAILY #30 tablet.ec 07/25/17 Sucralfate [Carafate -] 1 gm PO BID #60 tablet 07/25/17 Tamsulosin HCl [Flomax -] 0.4 mg PO HS cap.er.24h 07/25/17 Polyethylene Glycol 3350 [Miralax 119 gm Btl -] 17 gm PO DAILY 09/03/17 Nifedipine ER [Procardia XL -] 60 mg PO DAILY #30 tab.er.24 09/10/17 Furosemide [Lasix] 40 mg PO DAILY #30 tablet 09/27/17 This patient is new to me today: No Emergency Visit: No Critical Care patient: No - Discharge Referral Referred to [facility] Med [facility] No
--- NOTE | 2017-09-28 16:02 | PN ---
Progress Note, Physician History of Present Illness: Pt seen and examined at bedside. He had an AV fistula placed yesterday. - Current Medication List Current Medications: Active Medications Atorvastatin Calcium (Lipitor -) 20 mg PO HS [facility] Last Admin: 09/27/17 21:39 Dose: 20 mg Carvedilol (Coreg -) 12.5 mg PO BID [facility] Last Admin: 09/28/17 09:13 Dose: 12.5 mg Cholecalciferol (Vitamin D3 -) 1,000 unit PO DAILY [facility] Last Admin: 09/28/17 09:13 Dose: 1,000 unit Citalopram Hydrobromide (Celexa -) 20 mg PO DAILY [facility] Last Admin: 09/28/17 09:13 Dose: 20 mg Clopidogrel Bisulfate (Plavix -) 75 mg PO DAILY [facility] Last Admin: 09/28/17 09:12 Dose: 75 mg Docusate Sodium (Colace -) 300 mg PO HS [facility] Last Admin: 09/27/17 21:39 Dose: 300 mg Fentanyl (Sublimaze Injection -) 25 mcg IVPUSH [id number] PRN PRN Reason: PAIN-PACU ORDER X 4 DOSES ONLY Ferrous Sulfate (Feosol -) 325 mg PO DAILY [facility] Last Admin: 09/28/17 09:13 Dose: 325 mg Furosemide (Lasix -) 40 mg PO DAILY [facility] Last Admin: 09/28/17 09:13 Dose: 40 mg Gabapentin (Neurontin -) 100 mg PO DAILY [facility] Last Admin: 09/28/17 09:13 Dose: 100 mg Heparin Sodium (Porcine) (Heparin -) 5,000 unit SQ TID [facility] Last Admin: 09/28/17 14:39 Dose: Not Given Insulin Aspart (Novolog Vial Sliding Scale -) 1 vial SQ TIDAC [facility] PRN Reason: Protocol Last Admin: 09/28/17 11:29 Dose: 8 units Insulin Detemir (Levemir Vial) 12 units SQ HS [facility] Last Admin: 09/27/17 21:40 Dose: 12 units Nifedipine (Procardia Xl -) 60 mg PO DAILY [facility] Last Admin: 09/28/17 09:13 Dose: 60 mg Polyethylene Glycol (Miralax (For Daily Use) -) 17 gm PO DAILY [facility] Last Admin: 09/28/17 09:14 Dose: 17 gm Tamsulosin HCl (Flomax -) 0.4 mg PO 0830 [facility] Last Admin: 09/28/17 09:13 Dose: 0.4 mg - Objective Vital Signs: Vital Signs Temperature 97.5 F L 09/28/17 15:03 Pulse Rate 64 09/28/17 15:03 Respiratory Rate 18 09/28/17 15:03 Blood Pressure 120/55 09/28/17 15:03 O2 Sat by Pulse Oximetry (%) 95 09/28/17 09:00 Constitutional: Yes: Calm Eyes: Yes: Conjunctiva Clear HENT: Yes: Atraumatic Cardiovascular: Yes: S1, S2 Respiratory: Yes: CTA Bilaterally Gastrointestinal: Yes: Soft Genitourinary: Yes: Witt Present Musculoskeletal: Yes: WNL Extremities: Yes: Other (fistula with thrill and bruit) Edema: No Neurological: Yes: Oriented Psychiatric: Yes: Oriented Labs: CBC, BMP 09/28/17 07:30 09/28/17 07:30 INR, PTT INR 1.31 (0.82-1.09) H 09/21/17 15:42 Problem List - Problems (1) Fluid overload Code(s): E87.70 - FLUID OVERLOAD, UNSPECIFIED Qualifiers: Hypervolemia type: other Qualified Code(s): E87.79 - Other fluid overload (2) CKD (chronic kidney disease) Code(s): N18.9 - CHRONIC KIDNEY DISEASE, UNSPECIFIED Qualifiers: Chronic kidney disease stage: unspecified stage Qualified Code(s): N18.9 - Chronic kidney disease, unspecified (3) Urinary retention Code(s): R33.9 - RETENTION OF URINE, UNSPECIFIED (4) Anemia Code(s): D64.9 - ANEMIA, UNSPECIFIED Qualifiers: Assessment/Plan Current Medications Generic Name Dose Route Start Last Admin Trade Name Freq PRN Reason Stop Dose Admin Atorvastatin Calcium 20 mg 09/27/17 22:00 09/27/17 21:39 Lipitor - PO 20 mg HS ROSIE Administration Carvedilol 12.5 mg 09/27/17 22:00 09/28/17 09:13 Coreg - PO 12.5 mg BID ROSIE Administration Cholecalciferol 1,000 unit 09/28/17 10:00 09/28/17 09:13 Vitamin D3 - PO 1,000 unit DAILY ROSIE Administration Citalopram Hydrobromide 20 mg 09/28/17 10:00 09/28/17 09:13 Celexa - PO 20 mg DAILY ROSIE Administration Clopidogrel Bisulfate 75 mg 09/28/17 10:00 09/28/17 09:12 Plavix - PO 75 mg DAILY ROSIE Administration Docusate Sodium 300 mg 09/27/17 22:00 09/27/17 21:39 Colace - PO 300 mg HS ROSIE Administration Fentanyl 25 mcg 09/27/17 17:40 Sublimaze Injection - IVPUSH [id number] PRN PAIN-PACU ORDER X 4 DOSES ONLY Ferrous Sulfate 325 mg 09/28/17 10:00 09/28/17 09:13 Feosol - PO 325 mg DAILY ROSIE Administration Furosemide 40 mg 09/28/17 10:00 09/28/17 09:13 Lasix - PO 40 mg DAILY ROSIE Administration Gabapentin 100 mg 09/28/17 10:00 09/28/17 09:13 Neurontin - PO 100 mg DAILY ROSIE Administration Heparin Sodium (Porcine) 5,000 unit 09/27/17 22:00 09/28/17 14:39 Heparin - SQ Not Given TID [facility] Insulin Aspart 1 vial 09/28/17 07:00 09/28/17 11:29 Novolog Vial Sliding Scale - SQ 8 units TIDAC [facility] Administration Protocol Insulin Detemir 12 units 09/27/17 22:00 09/27/17 21:40 Levemir Vial SQ 12 units HS [facility] Administration Nifedipine 60 mg 09/28/17 10:00 09/28/17 09:13 Procardia Xl - PO 60 mg DAILY ROSIE Administration Polyethylene Glycol 17 gm 09/28/17 10:00 09/28/17 09:14 Miralax (For Daily Use) - PO 17 gm DAILY ROSIE Administration Tamsulosin HCl 0.4 mg 09/28/17 08:30 09/28/17 09:13 Flomax - PO 0.4 mg 0830 [facility] Administration Impression 1. CKD 2. anemia 3. HTN 4. Chol 5. DM 6. BPH 7. CAD 8. urinary retention with chronic witt 9. GI bleed 10. fluid overload Plan - fistula has thrill and bruit - switch lasix over to PO - will need to follow with renal on Sunday to check labs - renal diet - discussed plan with pt - maintain witt - will follow Dr Donovan
[2017-09-28 17:54] VITALS: BP 110/56; PULSE 66; TEMP 97.9
--- NOTE | 2017-09-28 17:58 | PN ---
Teaching Attending Note Name of Resident: Isac Moser ATTENDING PHYSICIAN STATEMENT I saw and evaluated the patient. I reviewed the resident's note and discussed the case with the resident. I agree with the resident's findings and plan as documented. SUBJECTIVE: No fever or chills . no pain or SOB. OBJECTIVE: NAD, AAOx 3 CV: RRR Lungs: CTAB today Ext: no edema ASSESSMENT AND PLAN: 71 year old male with a past medical history of CKD stage 5 , IDDM, HTN, CAD, s/ p PCI and stenting , s/p CABG, PAD s/p bypass sx , HLP, anemia of CKD , urinary retention and chronic diastolic CHF who presented with fluid overload after missing his out pt diuretics . 1-Volume overload due to CKD and possible component of acute diastolic CHF . - po lasix 40 daily - does not require O2 2- CKD : - AVF yesterday - No indication for starting HD , but will need it in near future 3- DM:hyperglycemic again.hypoglycemia resolved . cont SSi and 15 of levemir at dc 3- HTN: cont coreg and nifedipine 4- CAD : coreg , statin, resume plavix today( d/w vascular ) dispo : dc to CT today
--- NOTE | 2017-10-02 07:58 | OP ---
DATE OF OPERATION: 09/27/2017 PREOPERATIVE DIAGNOSIS: End-stage renal disease. POSTOPERATIVE DIAGNOSIS: End-stage renal disease. PROCEDURE: Creation of left brachial artery to cephalic vein fistula. SURGEON: Praful Banks MD ANESTHESIA: Fractional. BLOOD LOSS: 50 mL. DESCRIPTION OF PROCEDURE: The patient is a 71-year-old male who was admitted to the hospital for acute renal failure. He is not on dialysis yet, and he needs dialysis access placement. Patient had a vein mapping performed showing that he had good cephalic vein in his left arm, and it was decided that he would need a fistula there. Patient was consented for the procedure understanding all risks, benefits, and alternatives, and then taken to the operating room. Once in the operative room, he was placed on the operating table in the supine manner, and the area of the left arm was prepped and draped in a sterile surgical manner. Under ultrasound guidance, we were able to map out our cephalic vein and our brachial artery, and those were mapped below the left antecubital fossa, and they were marked with a skin marker, and a transverse incision was drawn across them. Anesthesia then administered general anesthesia to the patient. We then went ahead and took a No. 15 blade and made a 5-cm incision below the antecubital fossa on top of the vein and the artery. Bovie electrocautery was used to control hemostasis, and we were able to get down to through all the subcutaneous tissue, and we dissected out our cephalic vein anteriorly and posteriorly, and all branches were ligated using 4-0 silk. We then went medially and went through the fascia, and we then dissected out our brachial artery. Brachial artery was dissected anteriorly and posteriorly, and vessel loops were placed proximally and distally. We then went ahead and ligated our vein distally, and we then placed a 4-Eritrean feeding tube into the vein all the way up into the arm, and there was good drawback in the vein, dilated up appropriately. We then made a 7-mm venotomy using Mckeon scissors. Then, 5000 units of IV heparin were administered to the patient. After 3 minutes, we got distal and proximal control on the artery. Using a 15-blade, we made an arteriotomy which was extended to 7 mm using Mckeon scissors. We then placed 6-0 Prolene stay sutures on the artery. We then used 6-0 Prolene double-armed, we went outside-in on the vein and inside out on the artery and ran the stitch around forming an anastomosis between the artery and the vein. Once completed, we opened the distal artery first, then the proximal artery, and there was a good thrill in our AV fistula. The wound was well irrigated. We used 3-0 Vicryl, and the subcutaneous tissue was approximated in an interrupted manner, and the skin was closed with skin venkata. Area was wet and dried, 4x4 and Tegaderm were placed. Patient tolerated the procedure with no complications. Patient transferred to PACU in stable condition. Total blood loss 50 mL. PRAFUL BANKS DO [id number]
== END 2017-09-28 18:05 | disposition home or self-care (01) | DRG 264 ==
LOC: JER 14:41 → JERBED 17:30 → J6S 09-22 01:29 → OBSVTOIN 09-22 09:55
PROVIDERS: ADMIT Internal Medicine; ATTEND Internal Medicine
PROC: 03180ZD Bypass Left Brachial Artery to Upper Arm Vein, Open Approach (ICD-10-PCS; principal; 2017-09-27 13:30)
DX: I13.2 Hypertensive heart and chronic kidney disease with heart failure and with stage 5 chronic kidney disease, or end stage renal disease (principal); N18.6 End stage renal disease; I50.31 Acute diastolic (congestive) heart failure; J98.11 Atelectasis; I25.10 Atherosclerotic heart disease of native coronary artery without angina pectoris; K21.9 Gastro-esophageal reflux disease without esophagitis; E78.00 Pure hypercholesterolemia, unspecified; R33.9 Retention of urine, unspecified; D64.9 Anemia, unspecified; E87.79 Other fluid overload; D63.1 Anemia in chronic kidney disease; N40.0 Benign prostatic hyperplasia without lower urinary tract symptoms; E11.22 Type 2 diabetes mellitus with diabetic chronic kidney disease; I25.2 Old myocardial infarction; F41.8 Other specified anxiety disorders; N31.8 Other neuromuscular dysfunction of bladder; K59.09 Other constipation; Z87.891 Personal history of nicotine dependence; Z95.5 Presence of coronary angioplasty implant and graft; Z95.1 Presence of aortocoronary bypass graft; Z99.2 Dependence on renal dialysis
CPT/HCPCS: 36415; 71045-TC-FY; 80048; 80053; 82728; 82947; 82962; 83540; 83735; 83880; 84100; 85025; 85027; 85610; 85730; 93005; 93010; 93931; 93971; 94761; 97116-GP; 97161-GP; 99285-25; G0378; J1644

== ENCOUNTER 2017-10-23 11:25 | Inpatient (IN) | payer OTHER, MEDICARE ==
--- NOTE | 2017-10-23 12:43 | PDOC ---
History of Present Illness - General Stated Complaint: EDEMA Time Seen by Provider: 10/23/17 11:53 History Source: Patient Exam Limitations: No Limitations - History of Present Illness Initial Comments: 10/23/17 12:23 71 year old male with a past medical history of CKD stage 5 , IDDM, HTN, CAD, s/ p PCI and stinting , s/p CABG, PAD s/p bypass sx , HLP, anemia of CKD , and chronic diastolic CHF who presented with fluid overload who is due for first dialyses today at 2.30. Pt isaac any fever, chills, N/V/D/C. denies any headache, lightheaded, chest pain , sob , orthopnea, dyspnea or couph, denies any abdominal pain , flank pain or urinary symptoms. he has fistula tat has been placed last visit, and he was discharged to [facility] on Lasix 40 mh po daily and it has been increased to 80 mg po daily. PMH: CKD stage 5 , IDDM, HTN, CAD, s/p PCI and stinting , s/p CABG, PAD s/p bypass sx , HLP, anemia of CKD , and chronic diastolic CHF PSH : Left inguinal hernia repair,CABG s/p 2 stents,laminectomy,Right hip replacement Allergis :Tramadol, oxycodone, ticagrelor FH: mom - DM, of cancer (unknown type) at age 69 sister - of cancer (unknown type) at age 62 son - htn Social: quit smoking 30 years ago, smoked 2 PPD for 15 years , drink socially, never used any drugs PHysical exam: General : AAOx3 , in NAD Head: NC/At ENT: ROSEMARY , EOMI, sclera anicteric, MM membranes Lungs : left base crackles Heart: RRR, Normal S1, S2, No MRG Abdomen: soft, ND/NT, normal BS , Neuro: no focal deficit, normal speech Legs: + 2 pitting edema, + 2 DP pulse skin: warm dry withB/L surgical scar on legs , and med sternal. DD: Volume overload due to CKD and possible component of acute diastolic CHF . CKD : due for HD today , consulted Work up: CBC, CMP CXR Cosnult nephrology Trop BMP Past History - Past Medical History Allergies/Adverse Reactions: Allergies Allergy/AdvReac Type Severity Reaction Status Date / Time tramadol Allergy Verified 09/21/17 15:04 oxycodone HCl [From Percocet] AdvReac Intermediate nausea Verified 09/21/17 15: 04 ticagrelor [From BRILINTA] AdvReac Intermediate Verified 09/21/17 15:04 Home Medications: Ambulatory Orders Cholecalciferol (Vitamin D3) [Vitamin D3] 1,000 unit PO DAILY tablet 09/02/12 Clopidogrel Bisulfate [Clopidogrel] 75 mg PO HS #90 tablet 01/10/16 Carvedilol 12.5 mg PO BID 06/11/17 Ferrous Sulfate [Feosol] 325 mg PO DAILY ud 07/12/17 Docusate Sodium [Colace -] 300 mg PO HS 07/14/17 Insulin Glargine,Hum.rec.anlog [Lantus Solostar PEN -] 15 units SQ HS 07/14/17 Lidocaine 5% Patch [Lidoderm -] 1 patch TP DAILY #7 patch 07/15/17 Insulin Sliding Scale [Novolog Vial Sliding Scale -] 1 vial SQ TIDAC PRN Simvastatin 40 mg PO HS 07/23/17 Pantoprazole Sodium [Protonix -] 40 mg PO DAILY #30 tablet.ec 07/25/17 Sucralfate [Carafate -] 1 gm PO BID #60 tablet 07/25/17 Tamsulosin HCl [Flomax -] 0.4 mg PO HS cap.er.24h 07/25/17 Polyethylene Glycol 3350 [Miralax 119 gm Btl -] 17 gm PO DAILY 09/03/17 Nifedipine ER [Procardia XL -] 60 mg PO DAILY #30 tab.er.24 09/10/17 Furosemide [Lasix] 40 mg PO DAILY #30 tablet 09/27/17 Anemia: Yes (taking iron) Asthma: No Cancer: No Cardiac Disorders: Yes (CAD, CABG, stents) CVA: No COPD: No CHF: No DVT: No Dementia: No Diabetes: Yes (x41 yrs) GI Disorders: Yes (GERD, G-I bleed) Disorders: No HTN: Yes Hypercholesterolemia: Yes Liver Disease: No Psychiatric Problems: Yes Seizures: No Thyroid Disease: No - Surgical History Abdominal Surgery: Yes (Left Inguinal Hernia Repair) Appendectomy: No Cardiac Surgery: Yes (Bypass Surgery 18 yrs ago, Followed by Stents placement x2 ) Cholecystectomy: No Lung Surgery: No Neurologic Surgery: No Orthopedic Surgery: Yes (Laminectomy) - Immunization History Immunization Up to Date: Yes - Suicide/Smoking/Psychosocial Hx Smoking History: Former smoker Have you smoked in the past 12 months: No If you are a former smoker, when did you quit?: 30YRS Hx Alcohol Use: No Drug/Substance Use Hx: No Substance Use Type: None Hx Substance Use Treatment: No Heart Score/ECG Review - Risk Factors Risk Factors Heart Score: Yes Hx Hypertension, Yes Hx Diabetes, Yes Smoking History - ECG Intrepretation Comment:: 10/23/17 13:14 sinus concepcion 55 , LVH NON SPECIFIC ST, T WAVE CHANGES , QTC 453 ED Treatment Course - LABORATORY CBC & Chemistry Diagram: 10/23/17 12:35 10/23/17 12:35 - RADIOLOGY Radiology Studies Ordered: Category Date Time Status CXRPORT [CHEST X-RAY PORTABLE*] [RAD] Stat Radiology 10/23/17 12:22 Ordered *DC/Admit/Observation/Transfer - Referrals Referrals: Ángel Ramirez MD [Primary Care Provider] - - Patient Instructions - Post Discharge Activity
--- NOTE | 2017-10-23 12:47 | PDOC ---
Attending Attestation - Resident Resident Name: Fred Davis - ED Attending Attestation I have performed the following: I have examined & evaluated the patient, The case was reviewed & discussed with the resident, I agree w/resident's findings & plan, Exceptions are as noted - HPI HPI: 10/23/17 12:46 72-year-old male with history of worsening renal disease presents with worsening volume overload to initiate dialysis. - Physicial Exam PE: 10/23/17 12:46 Vitals as noted, afebrile Upper extremity fistula in place with thrill and no edema or infection Agree with remainder exam - Medical Decision Making 10/23/17 12:46 Patient seen and evaluated with the resident. I agree with the overall evaluation, assessment, and management with the following summary of visit: 72-year-old male for initiation of dialysis in the setting of volume overload secondary to worsening renal failure. Labs Renal consult Admission 10/23/17 14:20 baseline anemia, baseline elevated BUN/Cr, baseline elevated trop. Heart Score/ECG Review #1 General ECG Interpretation: Sinus Rhythm, Normal Rate, Normal Intervals ( lateral TWI, no acute ST changes) Compared to previous ECG there are: No significant change
[2017-10-23 12:58] LABS: BASO % 1.1 % (0-2.0); EOS % 2.2 % (0-4.5); HEMATOCRIT 24.5 % (35.4-49); LYMPH % 12.6 % (8-40); MCH 29.4 pg (25.7-33.7); MCHC 32.8 g/dl (32.0-35.9); MEAN CELL VOLUME 89.6 fl (80-96); MEAN PLT VOLUME 6.8 fl (7.5-11.1); MONO % 16.3 % (3.8-10.2); NEUT % 67.8 % (42.8-82.8); PLATELET COUNT 158 K/MM3 (134-434); RBC 2.73 M/mm3 (4.00-5.60); RDW 20.4 % (11.9-15.9); WHITE BLOOD COUNT 3.9 K/mm3 (4.0-10.0)
[2017-10-23 13:34] LABS: ALBUMIN 2.8 g/dl (3.4-5.0); ANION GAP 16 (8-16); BILIRUBIN,TOTAL 0.5 mg/dL (0.2-1.0); CALCIUM 7.7 mg/dL (8.5-10.1); CHLORIDE 104 mmol/L (98-107); CO2 19 mmol/L (21-32); CREATININE 5.3 mg/dL (0.7-1.3); GLUCOSE,RANDOM 193 mg/dL (74-106); POTASSIUM 3.3 mmol/L (3.5-5.1); SGOT/AST 16 U/L (15-37); SGPT/ALT 27 U/L (12-78); SODIUM 139 mmol/L (136-145); TOT PROT 6.5 g/dl (6.4-8.2)
[2017-10-23 13:35] LABS: ALK PHOS 115 U/L (45-117)
[2017-10-23 13:38] LABS: BLOOD UREA NITROGEN 119 mg/dL (7-18)
[2017-10-23 13:58] LABS: INR 1.5 (0.82-1.09)
[2017-10-23 14:08] LABS: ANION GAP 16 (8-16); CALCIUM 7.6 mg/dL (8.5-10.1); CHLORIDE 106 mmol/L (98-107); CO2 19 mmol/L (21-32); GLUCOSE,RANDOM 208 mg/dL (74-106); POTASSIUM 3.2 mmol/L (3.5-5.1); SODIUM 141 mmol/L (136-145)
[2017-10-23 14:10] LABS: BLOOD UREA NITROGEN 112 mg/dL (7-18)
[2017-10-23 14:14] LABS: CREATININE 5.4 mg/dL (0.7-1.3)
--- NOTE | 2017-10-23 15:05 | HP ---
CHIEF COMPLAINT: Volume overload Nephrology: Dr. Donovan HISTORY OF PRESENT ILLNESS: 72 year-old male with a PMH significant for HTN, CAD s/p stent, diastolic LV dysfunction, PAD s/p lower extremity bypass, IDDM, h/o GI bleed, neurogenic bladder, BPH, and ESRD not previously on HD. Patient was directed to the ED today by Dr. Donovan. He was transported from [facility]. Patient has been progressively SOB and with worsening lower extremity edema despite increased doses of diuretics. He had an AV fistula placed on 09/27/17, but it is not yet mature. Will need permacath placement and initiation of hemodialysis. ER course was notable for: (1) K 3.2 (2) K-dur 10meq x 1 Recent Travel No PAST MEDICAL HISTORY: ESRD not previously on HD Coronary artery disease Hypertension Diastolic LV dysfunction Peripheral arterial disease IDDM GI bleed Neurogenic bladder PAST SURGICAL HISTORY: Hernia repair AV fistula (09/27/17) CABG Lower extremity stent Laminectomy Social History: Smoking: quit 30 years ago Alcohol: socially Drugs: none Family History: Allergies tramadol Allergy (Verified 09/21/17 15:04) oxycodone HCl [From Percocet] Adverse Reaction (Intermediate, Verified 09/21/17 15:04) nausea ticagrelor [From BRILINTA] Adverse Reaction (Intermediate, Verified 09/21/17 15: 04) HOME MEDICATIONS: Home Medications Medication Instructions Recorded Cholecalciferol (Vitamin D3) 1,000 unit PO DAILY tablet 09/02/12 [Vitamin D3] Clopidogrel Bisulfate [Clopidogrel] 75 mg PO HS #90 tablet 01/10/16 Carvedilol 12.5 mg PO BID 06/11/17 Ferrous Sulfate [Feosol] 325 mg PO DAILY ud 07/12/17 Docusate Sodium [Colace -] 300 mg PO HS 07/14/17 Insulin Glargine,Hum.rec.anlog 15 units SQ HS 07/14/17 [Lantus Solostar PEN -] Lidocaine 5% Patch [Lidoderm -] 1 patch TP DAILY #7 patch 07/15/17 Insulin Sliding Scale [Novolog 1 vial SQ TIDAC PRN 07/23/17 Vial Sliding Scale -] Simvastatin 40 mg PO HS 07/23/17 Pantoprazole Sodium [Protonix -] 40 mg PO DAILY #30 tablet.ec 07/25/17 Sucralfate [Carafate -] 1 gm PO BID #60 tablet 07/25/17 Tamsulosin HCl [Flomax -] 0.4 mg PO HS cap.er.24h 07/25/17 Polyethylene Glycol 3350 [Miralax 17 gm PO DAILY 09/03/17 119 gm Btl -] Nifedipine ER [Procardia XL -] 60 mg PO DAILY #30 tab.er.24 09/10/17 Furosemide [Lasix] 40 mg PO DAILY #30 tablet 09/27/17 REVIEW OF SYSTEMS CONSTITUTIONAL: Absent: fever, chills, diaphoresis, generalized weakness, malaise, loss of appetite, weight change HEENT: Absent: rhinorrhea, nasal congestion, throat pain, throat swelling, difficulty swallowing, mouth swelling, ear pain, eye pain, visual changes CARDIOVASCULAR: Absent: chest pain, syncope, palpitations, irregular heart rate, lightheadedness , peripheral edema RESPIRATORY: Absent: cough, shortness of breath, dyspnea with exertion, orthopnea, wheezing, stridor, hemoptysis GASTROINTESTINAL: Absent: abdominal pain, abdominal distension, nausea, vomiting, diarrhea, constipation, melena, hematochezia GENITOURINARY: +bilateral lower extremity edema, increasing SOB due to volume overload Absent: dysuria, frequency, urgency, hesitancy, hematuria, flank pain, genital pain MUSCULOSKELETAL: Absent: myalgia, arthralgia, joint swelling, back pain, neck pain SKIN: Absent: rash, itching, pallor HEMATOLOGIC/IMMUNOLOGIC: Absent: easy bleeding, easy bruising, lymphadenopathy, frequent infections ENDOCRINE: Absent: unexplained weight gain, unexplained weight loss, heat intolerance, cold intolerance NEUROLOGIC: Absent: headache, focal weakness or paresthesias, dizziness, unsteady gait, seizure, mental status changes, bladder or bowel incontinence PSYCHIATRIC: Absent: anxiety, depression, suicidal or homicidal ideation, hallucinations. PHYSICAL EXAMINATION Vital Signs - 24 hr 10/23/17 10/23/17 12:21 12:35 Temperature 98.1 F Pulse Rate 54 L Pulse Rate [ 71 Left Apical] Respiratory 20 16 Rate Blood Pressure 137/47 Blood Pressure 134/78 [Right Arm] O2 Sat by Pulse 96 97 Oximetry (%) GENERAL: Awake, alert, and fully oriented, in no acute distress. HEAD: Normal with no signs of trauma. EYES: Pupils equal, round and reactive to light, extraocular movements intact, sclera anicteric, conjunctiva clear. No lid lag. EARS, NOSE, THROAT: Ears normal, nares patent, oropharynx clear without exudates. Moist mucous membranes. NECK: Normal range of motion, supple without lymphadenopathy, JVD, or masses. LUNGS: Bibasilar crackles HEART: Regular rate and rhythm, normal S1 and S2 without murmur, rub or gallop. ABDOMEN: Soft, nontender, not distended, normoactive bowel sounds, no guarding, no rebound, no masses. No hepatomegaly or splenomegaly. MUSCULOSKELETAL: Normal range of motion at all joints. No bony deformities or tenderness. No CVA tenderness. UPPER EXTREMITIES: 2+ pulses, warm, well-perfused. No cyanosis. No clubbing. No peripheral edema. LOWER EXTREMITIES: 2+ pulses, warm, well-perfused. 3-4+ edema NEUROLOGICAL: Cranial nerves II-XII intact. Normal speech. Normal gait. PSYCHIATRIC: Cooperative. Good eye contact. Appropriate mood and affect. SKIN: Warm, dry, normal turgor, no rashes or lesions noted, normal capillary refill. Laboratory Results - last 24 hr 10/23/17 10/23/17 10/23/17 12:35 12:35 13:14 WBC 3.9 L RBC 2.73 L Hgb 8.0 L Hct 24.5 L MCV 89.6 MCH 29.4 MCHC 32.8 RDW 20.4 H Plt Count 158 MPV 6.8 L Neutrophils % 67.8 Lymphocytes % 12.6 D Monocytes % 16.3 H D Eosinophils % 2.2 D Basophils % 1.1 D PT with INR INR Sodium 139 141 Potassium 3.3 L D 3.2 L Chloride 104 106 Carbon Dioxide 19 L D 19 L Anion Gap 16 16 BUN 119 H* 112 H* Creatinine 5.3 H 5.4 H Creat Clearance w eGFR 10.72 Random Glucose 193 H D 208 H Calcium 7.7 L 7.6 L Total Bilirubin 0.5 AST 16 ALT 27 D Alkaline Phosphatase 115 Troponin I 0.74 H* D Total Protein 6.5 Albumin 2.8 L 10/23/17 10/23/17 13:14 13:14 WBC RBC Hgb Hct MCV MCH MCHC RDW Plt Count MPV Neutrophils % Lymphocytes % Monocytes % Eosinophils % Basophils % PT with INR 17.00 H INR 1.50 H Sodium Potassium Chloride Carbon Dioxide Anion Gap BUN Creatinine Creat Clearance w eGFR Random Glucose Calcium Total Bilirubin AST ALT Alkaline Phosphatase Troponin I Cancelled Total Protein Albumin ASSESSMENT/PLAN: 72 year-old male with a PMH significant for HTN, CAD s/p [place] s/p CABG, diastolic LV dysfunction, PAD s/p lower extremity bypass, IDDM, h/o GI bleed, neurogenic bladder, BPH, and ESRD not previously on HD. AV fistula placed on 09/27/17, but not yet mature. Will need permacath placement and initiation of hemodialysis. ESRD --needs permacath placement and initiation of HD --renal following --vascular following --continue Lasix PO 40mg daily Neurogenic bladder BPH --continue Flomax Hypertension --continue carvedilol, nifedipine Coronary artery disease Peripheral arterial disease --continue carvedilol, Lipitor, Plavix Diastolic LV dysfunction --continue lasix IDDM --Levemir 15U qhs --Novolog sliding scale coverage Hypokalemia --repleted FEN Fluids: PO intake adequate Electrolytes: replete as indicated Nutrition: low sodium, diabetic DVT prophylaxis: subq heparin, oob, ambulation Physical therapy Dispo: continues to require inpatient care. Full code. Visit type - Emergency Visit Emergency Visit: Yes ED Registration Date: 10/23/17 Care time: The patient presented to the Emergency Department on the above date and was hospitalized for further evaluation of their emergent condition. - New Patient This patient is new to me today: Yes Date on this admission: 10/23/17 - Critical Care Critical Care patient: No Hospitalist Screening - Colonoscopy Questionnaire Colonoscopy Questionnaire: Colonoscopy Questionnaire - Patient: 50 - 75 years old and never had a screening colonoscopy: No History of colon or rectal polyps, or CA: No History of IBD, Crohn's disease or UC: No History of abdominal radiation therapy as a child: No - Relative: 1 with colon or rectal CA, or polyps at age 60 or younger: No Colon or rectal CA diagnosed at age 45 or younger: No Multiple relatives with colon or rectal CA: No - Outcome: Screening Result: Negative Screen
--- NOTE | 2017-10-23 16:26 | EKG ---
Test Reason : Blood Pressure : / mmHG Vent. Rate : 055 BPM Atrial Rate : 055 BPM P-R Int : 158 ms QRS Dur : 104 ms QT Int : 474 ms P-R-T Axes : 060 -27 169 degrees QTc Int : 453 ms SINUS BRADYCARDIA MINIMAL VOLTAGE CRITERIA FOR LVH, MAY BE NORMAL VARIANT POSSIBLE ANTERIOR INFARCT (CITED ON OR BEFORE 23-JUL-2017) ABNORMAL ECG WHEN COMPARED WITH ECG OF 21-SEP-2017 14:52, PREMATURE SUPRAVENTRICULAR COMPLEXES ARE NO LONGER PRESENT NONSPECIFIC T WAVE ABNORMALITY HAS REPLACED INVERTED T WAVES IN INFERIOR LEADS Confirmed by Evaristo Sutherland ([id number]) on 10/23/2017 4:26:20 PM Referred By: Confirmed By:Evaristo Sutherland
[2017-10-23] MEDS ORDERED: INSULIN (NOVOLOG) ASPART 100 UNITS/ML 10ML VIAL SQ SCH (16:30)
--- NOTE | 2017-10-23 17:21 | CONSULT ---
Consult Consult Specialty:: Nephrology Reason for Consultation:: CKD stage 5 - History of Present Illness Chief Complaint: dyspnea and fatigue History of Present Illness: Pt is a 72 year old male with pmhx of CKD, DM, HTN, and CAD who we sent to the ER for evaluation of HD. He has been getting shortness of breath and complains of lower ext edema. He denies chest pain or palpitations. He does have a fistula however it is not yet mature. He has been on higher doses of lasix without much change. He denies fevers or chills. He follows with Dr Fernandez as outpt. He has had multiple visits for shortness of breath. - History Source History Provided By: Patient, Medical Record - Past Medical History Cardio/Vascular: Yes: CAD, CHF, HTN, Hyperlipdemia, [place] Gastrointestinal: Yes: Constipation, GI Bleed Renal/: Yes: Renal Inusuff, Neurogenic Bladder Endocrine: Yes: Diabetes Mellitus - Past Surgical History Past Surgical History: Yes: AV Fistula/Graft, Bypass (Lower extremity), CABG, Hernia Repair, Laminectomy, Stent (PCI) - Alcohol/Substance Use Hx Alcohol Use: No History of Substance Use: reports: None - Smoking History Smoking history: Former smoker Have you smoked in the past 12 months: No If you are a former smoker, when did you quit?: 30YRS - Social History Usual Living Arrangement: Assisted ADL: Support Services History of Recent Travel: No Home Medications - Allergies Allergies/Adverse Reactions: Allergies Allergy/AdvReac Type Severity Reaction Status Date / Time tramadol Allergy Verified 09/21/17 15:04 oxycodone HCl [From Percocet] AdvReac Intermediate nausea Verified 09/21/17 15: 04 ticagrelor [From BRILINTA] AdvReac Intermediate Verified 09/21/17 15:04 - Home Medications Home Medications: Ambulatory Orders Cholecalciferol (Vitamin D3) [Vitamin D3] 1,000 unit PO DAILY tablet 09/02/12 Clopidogrel Bisulfate [Clopidogrel] 75 mg PO HS #90 tablet 01/10/16 Carvedilol 12.5 mg PO BID 06/11/17 Ferrous Sulfate [Feosol] 325 mg PO DAILY ud 07/12/17 Docusate Sodium [Colace -] 300 mg PO HS 07/14/17 Insulin Glargine,Hum.rec.anlog [Lantus Solostar PEN -] 15 units SQ HS 07/14/17 Lidocaine 5% Patch [Lidoderm -] 1 patch TP DAILY #7 patch 07/15/17 Insulin Sliding Scale [Novolog Vial Sliding Scale -] 1 vial SQ TIDAC PRN Simvastatin 40 mg PO HS 07/23/17 Pantoprazole Sodium [Protonix -] 40 mg PO DAILY #30 tablet.ec 07/25/17 Sucralfate [Carafate -] 1 gm PO BID #60 tablet 07/25/17 Tamsulosin HCl [Flomax -] 0.4 mg PO HS cap.er.24h 07/25/17 Polyethylene Glycol 3350 [Miralax 119 gm Btl -] 17 gm PO DAILY 09/03/17 Nifedipine ER [Procardia XL -] 60 mg PO DAILY #30 tab.er.24 09/10/17 Furosemide [Lasix] 40 mg PO DAILY #30 tablet 09/27/17 Family Disease History - Family Disease History Family Disease History: CA: Mother, Sister Review of Systems - Review of Systems Constitutional: reports: Malaise. denies: Chills, Fever Eyes: reports: No Symptoms HENT: reports: No Symptoms Neck: reports: No Symptoms Cardiovascular: reports: Edema, Shortness of Breath Respiratory: reports: SOB, SOB on Exertion Gastrointestinal: reports: No Symptoms Genitourinary: reports: No Symptoms Musculoskeletal: reports: No Symptoms Integumentary: reports: No Symptoms Neurological: reports: No Symptoms Endocrine: reports: No Symptoms Hematology/Lymphatic: reports: No Symptoms Psychiatric: reports: No Symptoms Physical Exam Vital Signs: Vital Signs Temperature 98.2 F 10/23/17 16:14 Pulse Rate 58 L 10/23/17 16:14 Respiratory Rate 16 10/23/17 16:14 Blood Pressure 153/63 10/23/17 16:14 O2 Sat by Pulse Oximetry (%) 95 10/23/17 16:14 Constitutional: Yes: Calm Eyes: Yes: Conjunctiva Clear HENT: Yes: Atraumatic Neck: Yes: Supple Cardiovascular: Yes: S1, S2 Respiratory: Yes: On Nasal O2, Rhonchi Gastrointestinal: Yes: Soft Renal/: Yes: WNL Musculoskeletal: Yes: WNL Edema: Yes Edema: LLE: 1+, RLE: 1+ Neurological: Yes: Oriented Psychiatric: Yes: Oriented Labs: CBC, BMP 10/23/17 12:35 10/23/17 13:14 Laboratory Tests 10/23/17 10/23/17 12:35 13:14 WBC 3.9 L Hgb 8.0 L Sodium 141 Potassium 3.2 L Chloride 106 Carbon Dioxide 19 L Anion Gap 16 BUN 112 H* Creatinine 5.4 H Imaging - Results Chest X-ray: Report Reviewed Problem List - Problems (1) Fluid overload Code(s): E87.70 - FLUID OVERLOAD, UNSPECIFIED Qualifiers: Hypervolemia type: other Qualified Code(s): E87.79 - Other fluid overload (2) CKD (chronic kidney disease) Code(s): N18.9 - CHRONIC KIDNEY DISEASE, UNSPECIFIED Qualifiers: Chronic kidney disease stage: unspecified stage Qualified Code(s): N18.9 - Chronic kidney disease, unspecified (3) Diabetes Code(s): E11.9 - TYPE 2 DIABETES MELLITUS WITHOUT COMPLICATIONS Qualifiers: 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 type: type 2 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 penitentiary insulin use: unspecified penitentiary insulin use status 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 complication status : with kidney complications 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 complication detail: with nephropathy Qualified Code(s): E11.21 - Type 2 diabetes mellitus with diabetic nephropathy Assessment/Plan Current Medications Generic Name Dose Route Start Last Admin Trade Name Freq PRN Reason Stop Dose Admin Atorvastatin Calcium 20 mg 10/23/17 22:00 Lipitor - PO HS ROSIE Carvedilol 12.5 mg 10/23/17 22:00 Coreg - PO BID ROSIE Cholecalciferol 1,000 unit 10/24/17 10:00 Vitamin D3 - PO DAILY ROSIE Citalopram Hydrobromide 20 mg 10/24/17 10:00 Celexa - PO DAILY ROSIE Clopidogrel Bisulfate 75 mg 10/23/17 22:00 Plavix - PO HS ROSIE Docusate Sodium 300 mg 10/23/17 22:00 Colace - PO HS ROSIE Ferrous Sulfate 325 mg 10/24/17 10:00 Feosol - PO DAILY ROSIE Furosemide 40 mg 10/24/17 10:00 Lasix - PO DAILY ROSIE Gabapentin 100 mg 10/24/17 10:00 Neurontin - PO DAILY ROSIE Heparin Sodium (Porcine) 5,000 unit 10/23/17 18:00 Heparin - SQ Q8H-IV ROSIE Insulin Aspart 0 units 10/23/17 16:30 Novolog Vial SQ ACHS ROSIE Protocol Insulin Detemir 15 units 10/23/17 22:00 Levemir Vial SQ HS ROSIE Lidocaine 1 patch 10/24/17 10:00 Lidoderm Patch - TP DAILY ROSIE Nifedipine 60 mg 10/24/17 10:00 Procardia Xl - PO DAILY ROSIE Pantoprazole Sodium 40 mg 10/24/17 10:00 Protonix - PO DAILY [facility] Polyethylene Glycol 17 gm 10/24/17 10:00 Miralax (For Daily Use) - PO DAILY ROSIE Sucralfate 1 gm 10/23/17 22:00 Carafate - PO BID ROSIE Tamsulosin HCl 0.4 mg 10/23/17 22:00 Flomax - PO HS ROSIE Impression 1. CKD 2. anemia 3. HTN 4. Chol 5. DM 6. BPH 7. CAD 8. urinary retention 9. GI bleed 10. fluid overload Plan - called vascular surgery and they will see pt for a permacath - volume status has been difficult to control as outpt - fistula not yet mature - resume home meds - cont with lasix - will give a small dose of potassium - check mag level - d/c sucralfate
[2017-10-23] MEDS: HEPARIN NA (PORCINE) 5,000 UNITS/ML 1ML VIAL SQ SCH (17:22)
[2017-10-23] MEDS ORDERED: POTASSIUM CHLORIDE TABS 10 MEQ TABLET.ER (FP) PO ONE (17:30)
[2017-10-23] MEDS ORDERED: POTASSIUM CHLORIDE TABS 10 MEQ TABLET.ER (FP) ONE (18:34)
[2017-10-23] MEDS ORDERED: HEPARIN NA (PORCINE) 5,000 UNITS/ML 1ML VIAL ONE (18:34)
[2017-10-23] MEDS ORDERED: SUCRALFATE 1 GM TABLET (FP) PO SCH (22:00)
[2017-10-23] MEDS ORDERED: INSULIN DETEMIR 100 UNITS/ML MDV SQ ONE (22:31)
[2017-10-23] MEDS: TAMSULOSIN HCL 0.4 MG CAP.ER.24H (FP) PO SCH (22:37)
[2017-10-23] MEDS: CARVEDILOL 12.5 MG TABLET (FP) PO SCH (22:37)
[2017-10-23] MEDS: ATORVASTATIN CA 20 MG TABLET (FP) PO SCH (22:37)
[2017-10-23] MEDS: INSULIN DETEMIR 100 UNITS/ML MDV SQ SCH (22:37)
[2017-10-23] MEDS: DOCUSATE SODIUM 100 MG CAPSULE (FP) PO SCH (22:37)
[2017-10-23] MEDS: CLOPIDOGREL BISULFATE 75 MG TABLET (FP) PO SCH (22:38)
[2017-10-23 23:45] VITALS: BMI 30.1
[2017-10-24] MEDS: HEPARIN NA (PORCINE) 5,000 UNITS/ML 1ML VIAL SQ SCH ×3 (02:24→17:07)
[2017-10-24] MEDS: INSULIN SLIDING SCALE (NOVOLOG) 1 VIAL SQ SCH ×4 (06:48→23:37)
[2017-10-24 09:26] LABS: BASO % 0.7 % (0-2.0); EOS % 0.8 % (0-4.5); HEMATOCRIT 25.8 % (35.4-49); HEMOGLOBIN 8.4 GM/dL (11.7-16.9); LYMPH % 8.2 % (8-40); MCH 29.3 pg (25.7-33.7); MCHC 32.5 g/dl (32.0-35.9); MEAN CELL VOLUME 90.1 fl (80-96); MEAN PLT VOLUME 6.4 fl (7.5-11.1); MONO % 12.2 % (3.8-10.2); NEUT % 78.1 % (42.8-82.8); PLATELET COUNT 163 K/MM3 (134-434); RBC 2.86 M/mm3 (4.00-5.60); RDW 20.4 % (11.9-15.9); WHITE BLOOD COUNT 5.1 K/mm3 (4.0-10.0)
[2017-10-24 10:08] LABS: ALBUMIN 2.8 g/dl (3.4-5.0); ANION GAP 15 (8-16); CALCIUM 7.9 mg/dL (8.5-10.1); CHLORIDE 110 mmol/L (98-107); CO2 21 mmol/L (21-32); GLUCOSE,RANDOM 75 mg/dL (74-106); MAGNESIUM 2.4 mg/dL (1.8-2.4); POTASSIUM 3.3 mmol/L (3.5-5.1); SODIUM 146 mmol/L (136-145)
[2017-10-24] MEDS: FERROUS SO4 325 MG TABLET (FP) PO SCH (10:09)
[2017-10-24] MEDS: NIFEdipine E.R. 30 MG TABLET (FP) PO SCH (10:09)
[2017-10-24] MEDS: FUROSEMIDE 40 MG TABLET (FP) PO SCH (10:09)
[2017-10-24] MEDS: CITALOPRAM HYDROBROMIDE 20 MG TABLET (FP) PO SCH (10:09)
[2017-10-24] MEDS: POLYETHYLENE GLYCOL 3350 119 GM BTL PO SCH (10:11)
[2017-10-24] MEDS: CARVEDILOL 12.5 MG TABLET (FP) PO SCH ×2 (10:11→22:04)
[2017-10-24] MEDS: LIDOCAINE 5% TOPICAL PATCH TP SCH (10:11)
[2017-10-24] MEDS: GABAPENTIN 100 MG CAPSULE (FP) PO SCH (10:11)
[2017-10-24] MEDS: CHOLECALCIFEROL (VITAMIN D3) 1,000 UNIT TABLET (FP) PO SCH (10:11)
[2017-10-24] MEDS: PANTOPRAZOLE 40 MG TABLET (FP) PO SCH (10:11)
[2017-10-24 10:24] LABS: ALK PHOS 105 U/L (45-117); BILIRUBIN,TOTAL 0.5 mg/dL (0.2-1.0); CREATININE 5.1 mg/dL (0.7-1.3); PHOSPHOROUS 4.1 mg/dL (2.5-4.9); SGOT/AST 11 U/L (15-37); SGPT/ALT 24 U/L (12-78); TOT PROT 6.6 g/dl (6.4-8.2)
[2017-10-24 11:10] LABS: BLOOD UREA NITROGEN 111 mg/dL (7-18)
--- NOTE | 2017-10-24 13:57 | PN ---
Progress Note, Physician History of Present Illness: Pt seen and examined at bedside. He is awake and alert. He denies shortness of breath while at rest. - Current Medication List Current Medications: Active Medications Atorvastatin Calcium (Lipitor -) 20 mg PO HS [facility] Last Admin: 10/23/17 22:37 Dose: 20 mg Carvedilol (Coreg -) 12.5 mg PO BID [facility] Last Admin: 10/24/17 10:11 Dose: 12.5 mg Cholecalciferol (Vitamin D3 -) 1,000 unit PO DAILY [facility] Last Admin: 10/24/17 10:11 Dose: 1,000 unit Citalopram Hydrobromide (Celexa -) 20 mg PO DAILY [facility] Last Admin: 10/24/17 10:09 Dose: 20 mg Clopidogrel Bisulfate (Plavix -) 75 mg PO [facility] Last Admin: 10/23/17 22:38 Dose: 75 mg Docusate Sodium (Colace -) 300 mg PO [facility] Last Admin: 10/23/17 22:37 Dose: 300 mg Ferrous Sulfate (Feosol -) 325 mg PO DAILY [facility] Last Admin: 10/24/17 10:09 Dose: 325 mg Furosemide (Lasix -) 40 mg PO DAILY [facility] Last Admin: 10/24/17 10:09 Dose: 40 mg Gabapentin (Neurontin -) 100 mg PO DAILY [facility] Last Admin: 10/24/17 10:11 Dose: 100 mg Heparin Sodium (Porcine) (Heparin -) 5,000 unit SQ Q8H-IV [facility] Last Admin: 10/24/17 10:12 Dose: 5,000 unit Insulin Aspart (Novolog Vial Sliding Scale -) 1 vial SQ [facility] PRN Reason: Protocol Last Admin: 10/24/17 12:12 Dose: 2 units Insulin Detemir (Levemir Vial) 15 units SQ [facility] Last Admin: 10/23/17 22:37 Dose: 15 units Lidocaine (Lidoderm Patch -) 1 patch TP DAILY [facility] Last Admin: 10/24/17 10:11 Dose: 1 patch Nifedipine (Procardia Xl -) 60 mg PO DAILY [facility] Last Admin: 10/24/17 10:09 Dose: 60 mg Pantoprazole Sodium (Protonix -) 40 mg PO DAILY [facility] Last Admin: 10/24/17 10:11 Dose: 40 mg Polyethylene Glycol (Miralax (For Daily Use) -) 17 gm PO DAILY [facility] Last Admin: 10/24/17 10:11 Dose: 17 gm Potassium Chloride (K-Dur -) 10 meq PO ONCE ONE Stop: 10/24/17 13:55 Tamsulosin HCl (Flomax -) 0.4 mg PO HS [facility] Last Admin: 10/23/17 22:37 Dose: 0.4 mg - Objective Vital Signs: Vital Signs Temperature 97.4 F L 10/24/17 08:00 Pulse Rate 60 10/24/17 08:00 Respiratory Rate 19 10/24/17 08:00 Blood Pressure 149/55 10/24/17 08:00 O2 Sat by Pulse Oximetry (%) 95 10/23/17 23:07 Constitutional: Yes: Calm Eyes: Yes: Conjunctiva Clear HENT: Yes: Atraumatic Cardiovascular: Yes: S1, S2 Respiratory: Yes: Rhonchi Gastrointestinal: Yes: Soft Genitourinary: Yes: WNL Musculoskeletal: Yes: WNL Edema: Yes Edema: LLE: 1+, RLE: 1+ Neurological: Yes: Oriented Psychiatric: Yes: Oriented Labs: CBC, BMP 10/24/17 09:13 10/24/17 09:13 INR, PTT INR 1.50 (0.82-1.09) H 10/23/17 13:14 Problem List - Problems (1) Fluid overload Code(s): E87.70 - FLUID OVERLOAD, UNSPECIFIED Qualifiers: Hypervolemia type: other Qualified Code(s): E87.79 - Other fluid overload (2) CKD (chronic kidney disease) Code(s): N18.9 - CHRONIC KIDNEY DISEASE, UNSPECIFIED Qualifiers: Chronic kidney disease stage: unspecified stage Qualified Code(s): N18.9 - Chronic kidney disease, unspecified (3) Diabetes Code(s): E11.9 - TYPE 2 DIABETES MELLITUS WITHOUT COMPLICATIONS Qualifiers: 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 type: type 2 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 senior living insulin use: unspecified senior living insulin use status 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 complication status : with kidney complications 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 complication detail: with nephropathy Qualified Code(s): E11.21 - Type 2 diabetes mellitus with diabetic nephropathy Assessment/Plan Current Medications Generic Name Dose Route Start Last Admin Trade Name Freq PRN Reason Stop Dose Admin Atorvastatin Calcium 20 mg 10/23/17 22:00 10/23/17 22:37 Lipitor - PO 20 mg HS ROSIE Administration Carvedilol 12.5 mg 10/23/17 22:00 10/24/17 10:11 Coreg - PO 12.5 mg BID ROSIE Administration Cholecalciferol 1,000 unit 10/24/17 10:00 10/24/17 10:11 Vitamin D3 - PO 1,000 unit DAILY ROSIE Administration Citalopram Hydrobromide 20 mg 10/24/17 10:00 10/24/17 10:09 Celexa - PO 20 mg DAILY ROSIE Administration Clopidogrel Bisulfate 75 mg 10/23/17 22:00 10/23/17 22:38 Plavix - PO 75 mg HS ROSIE Administration Docusate Sodium 300 mg 10/23/17 22:00 10/23/17 22:37 Colace - PO 300 mg HS ROSIE Administration Ferrous Sulfate 325 mg 10/24/17 10:00 10/24/17 10:09 Feosol - PO 325 mg DAILY ROSIE Administration Furosemide 40 mg 10/24/17 10:00 10/24/17 10:09 Lasix - PO 40 mg DAILY ROSIE Administration Gabapentin 100 mg 10/24/17 10:00 10/24/17 10:11 Neurontin - PO 100 mg DAILY ROSIE Administration Heparin Sodium (Porcine) 5,000 unit 10/23/17 18:00 10/24/17 10:12 Heparin - SQ 5,000 unit Q8H-IV ROSIE Administration Insulin Aspart 1 vial 10/24/17 07:00 10/24/17 12:12 Novolog Vial Sliding Scale - SQ 2 units ACHS ROSIE Administration Protocol Insulin Detemir 15 units 10/23/17 22:00 10/23/17 22:37 Levemir Vial SQ 15 units HS ROSIE Administration Lidocaine 1 patch 10/24/17 10:00 10/24/17 10:11 Lidoderm Patch - TP 1 patch DAILY ROSIE Administration Nifedipine 60 mg 10/24/17 10:00 10/24/17 10:09 Procardia Xl - PO 60 mg DAILY ROSIE Administration Pantoprazole Sodium 40 mg 10/24/17 10:00 10/24/17 10:11 Protonix - PO 40 mg DAILY ROSIE Administration Polyethylene Glycol 17 gm 10/24/17 10:00 10/24/17 10:11 Miralax (For Daily Use) - PO 17 gm DAILY ROSIE Administration Potassium Chloride 10 meq 10/24/17 13:54 K-Dur - PO 10/24/17 13:55 ONCE ONE Tamsulosin HCl 0.4 mg 10/23/17 22:00 10/23/17 22:37 Flomax - PO 0.4 mg HS ROSIE Administration Impression 1. CKD 2. anemia 3. HTN 4. Chol 5. DM 6. BPH 7. CAD 8. urinary retention 9. GI bleed 10. fluid overload Plan - labs reviewed - permacath tomorrow - check hep status - send HD information to [facility] - will dialyze after access in place - will give a small dose of potassium - volume status has been difficult to control as outpt - fistula not yet mature - cont with lasix
[2017-10-24] MEDS ORDERED: POTASSIUM CHLORIDE TABS 10 MEQ TABLET.ER (FP) PO ONE ×2 (16:00→17:00)
--- NOTE | 2017-10-24 18:31 | PN ---
Physical Exam: SUBJECTIVE: Patient seen and examined at bedside. Voices no complaints. OBJECTIVE: Vital Signs Period Temp Pulse Resp BP Sys/Rodriguez Pulse Ox Last 24 Hr 97.4 F-98.9 F 60-72 16-19 142-158/55-80 94-95 GENERAL: Awake, alert, and fully oriented, in no acute distress. HEAD: Normal with no signs of trauma. EYES: Pupils equal, round and reactive to light, extraocular movements intact, sclera anicteric, conjunctiva clear. No lid lag. EARS, NOSE, THROAT: Ears normal, nares patent, oropharynx clear without exudates. Moist mucous membranes. NECK: Normal range of motion, supple without lymphadenopathy, JVD, or masses. LUNGS: Bibasilar crackles HEART: Regular rate and rhythm, normal S1 and S2 without murmur, rub or gallop. ABDOMEN: Soft, nontender, not distended, normoactive bowel sounds, no guarding, no rebound, no masses. No hepatomegaly or splenomegaly. MUSCULOSKELETAL: Normal range of motion at all joints. No bony deformities or tenderness. No CVA tenderness. UPPER EXTREMITIES: 2+ pulses, warm, well-perfused. No cyanosis. No clubbing. No peripheral edema. LOWER EXTREMITIES: 2+ pulses, warm, well-perfused. 3+ edema, mildly improved NEUROLOGICAL: Cranial nerves II-XII intact. Normal speech. Laboratory Results - last 24 hr 10/23/17 10/24/17 10/24/17 22:33 06:35 09:13 WBC 5.1 D RBC 2.86 L Hgb 8.4 L Hct 25.8 L MCV 90.1 MCH 29.3 MCHC 32.5 RDW 20.4 H Plt Count 163 MPV 6.4 L Neutrophils % 78.1 Lymphocytes % 8.2 D Monocytes % 12.2 H Eosinophils % 0.8 Basophils % 0.7 Sodium Potassium Chloride Carbon Dioxide Anion Gap BUN Creatinine Creat Clearance w eGFR POC Glucometer 326 189 Random Glucose Calcium Phosphorus Magnesium Total Bilirubin AST ALT Alkaline Phosphatase Total Protein Albumin 10/24/17 10/24/17 10/24/17 09:13 12:06 17:02 WBC RBC Hgb Hct MCV MCH MCHC RDW Plt Count MPV Neutrophils % Lymphocytes % Monocytes % Eosinophils % Basophils % Sodium 146 H Potassium 3.3 L Chloride 110 H Carbon Dioxide 21 Anion Gap 15 BUN 111 H* Creatinine 5.1 H Creat Clearance w eGFR 11.21 POC Glucometer 173 231 Random Glucose 75 D Calcium 7.9 L Phosphorus 4.1 Magnesium 2.4 Total Bilirubin 0.5 AST 11 L D ALT 24 Alkaline Phosphatase 105 Total Protein 6.6 Albumin 2.8 L Active Medications Generic Name Dose Route Start Last Admin Trade Name David PRN Reason Stop Dose Admin Atorvastatin Calcium 20 mg 10/23/17 22:00 10/23/17 22:37 Lipitor - PO 20 mg HS ROSIE Administration Carvedilol 12.5 mg 10/23/17 22:00 10/24/17 10:11 Coreg - PO 12.5 mg BID ROSIE Administration Cholecalciferol 1,000 unit 10/24/17 10:00 10/24/17 10:11 Vitamin D3 - PO 1,000 unit DAILY ROSIE Administration Citalopram Hydrobromide 20 mg 10/24/17 10:00 10/24/17 10:09 Celexa - PO 20 mg DAILY ROSIE Administration Clopidogrel Bisulfate 75 mg 10/23/17 22:00 10/23/17 22:38 Plavix - PO 75 mg HS ROSIE Administration Docusate Sodium 300 mg 10/23/17 22:00 10/23/17 22:37 Colace - PO 300 mg HS ROSIE Administration Ferrous Sulfate 325 mg 10/24/17 10:00 10/24/17 10:09 Feosol - PO 325 mg DAILY ROSIE Administration Furosemide 40 mg 10/24/17 10:00 10/24/17 10:09 Lasix - PO 40 mg DAILY ROSIE Administration Gabapentin 100 mg 10/24/17 10:00 10/24/17 10:11 Neurontin - PO 100 mg DAILY ROSIE Administration Heparin Sodium (Porcine) 5,000 unit 10/23/17 18:00 10/24/17 17:07 Heparin - SQ 5,000 unit Q8H-IV ROSIE Administration Insulin Aspart 1 vial 10/24/17 07:00 10/24/17 17:04 Novolog Vial Sliding Scale - SQ 4 units ACHS ROSIE Administration Protocol Insulin Detemir 15 units 10/23/17 22:00 10/23/17 22:37 Levemir Vial SQ 15 units HS ROSIE Administration Lidocaine 1 patch 10/24/17 10:00 10/24/17 10:11 Lidoderm Patch - TP 1 patch DAILY ROSIE Administration Nifedipine 60 mg 10/24/17 10:00 10/24/17 10:09 Procardia Xl - PO 60 mg DAILY ROSIE Administration Pantoprazole Sodium 40 mg 10/24/17 10:00 10/24/17 10:11 Protonix - PO 40 mg DAILY ROSIE Administration Polyethylene Glycol 17 gm 10/24/17 10:00 10/24/17 10:11 Miralax (For Daily Use) - PO 17 gm DAILY ROSIE Administration Tamsulosin HCl 0.4 mg 10/23/17 22:00 10/23/17 22:37 Flomax - PO 0.4 mg HS ROSIE Administration ASSESSMENT/PLAN 72 year-old male with a PMH significant for HTN, CAD s/p MA s/p CABG, diastolic LV dysfunction, PAD s/p lower extremity bypass, IDDM, h/o GI bleed, neurogenic bladder, BPH, and ESRD not previously on HD. AV fistula placed on 09/27/17, but not yet mature. Will need permacath placement and initiation of hemodialysis. ESRD --scheduled for permacath and HD tomorrow --renal following --vascular following --continue Lasix PO 40mg daily Neurogenic bladder BPH --continue Flomax Hypertension --continue carvedilol, nifedipine Coronary artery disease Peripheral arterial disease --continue carvedilol, Lipitor, Plavix Diastolic LV dysfunction --continue lasix IDDM --Levemir 15U qhs --Novolog sliding scale coverage Hypokalemia --repleted FEN Fluids: PO intake adequate Electrolytes: replete as indicated Nutrition: low sodium, diabetic DVT prophylaxis: subq heparin, oob, ambulation Physical therapy Dispo: continues to require inpatient care. Full code. Visit type - Emergency Visit Emergency Visit: Yes ED Registration Date: 10/23/17 Care time: The patient presented to the Emergency Department on the above date and was hospitalized for further evaluation of their emergent condition. - New Patient This patient is new to me today: No - Critical Care Critical Care patient: No
--- NOTE | 2017-10-24 21:37 | CONSULT ---
Consult - History of Present Illness History of Present Illness: 72 year old man with renal failure. Recent surgery for left arm AV fistula but access not mature. He has worsening azotemia and needs to begin dialysis. - Past Medical History Cardio/Vascular: Yes: CAD, CHF, HTN, Hyperlipdemia, [place] Gastrointestinal: Yes: Constipation, GI Bleed Renal/: Yes: Renal Inusuff, Neurogenic Bladder Endocrine: Yes: Diabetes Mellitus - Past Surgical History Past Surgical History: Yes: AV Fistula/Graft, Bypass (Lower extremity), CABG, Hernia Repair, Laminectomy, Stent (PCI) - Alcohol/Substance Use Hx Alcohol Use: No History of Substance Use: reports: None - Smoking History Smoking history: Former smoker Have you smoked in the past 12 months: No If you are a former smoker, when did you quit?: 30YRS - Social History Usual Living Arrangement: Fdc ADL: Support Services History of Recent Travel: No Home Medications - Allergies Allergies/Adverse Reactions: Allergies Allergy/AdvReac Type Severity Reaction Status Date / Time tramadol Allergy Verified 09/21/17 15:04 oxycodone HCl [From Percocet] AdvReac Intermediate nausea Verified 09/21/17 15: 04 ticagrelor [From BRILINTA] AdvReac Intermediate Verified 09/21/17 15:04 - Home Medications Home Medications: Ambulatory Orders Cholecalciferol (Vitamin D3) [Vitamin D3] 1,000 unit PO DAILY tablet 09/02/12 Clopidogrel Bisulfate [Clopidogrel] 75 mg PO HS #90 tablet 01/10/16 Carvedilol 12.5 mg PO BID 06/11/17 Ferrous Sulfate [Feosol] 325 mg PO DAILY ud 07/12/17 Docusate Sodium [Colace -] 300 mg PO HS 07/14/17 Insulin Glargine,Hum.rec.anlog [Lantus Solostar PEN -] 15 units SQ HS 07/14/17 Lidocaine 5% Patch [Lidoderm -] 1 patch TP DAILY #7 patch 07/15/17 Insulin Sliding Scale [Novolog Vial Sliding Scale -] 1 vial SQ TIDAC PRN Simvastatin 40 mg PO HS 07/23/17 Pantoprazole Sodium [Protonix -] 40 mg PO DAILY #30 tablet.ec 07/25/17 Sucralfate [Carafate -] 1 gm PO BID #60 tablet 07/25/17 Tamsulosin HCl [Flomax -] 0.4 mg PO HS cap.er.24h 07/25/17 Polyethylene Glycol 3350 [Miralax 119 gm Btl -] 17 gm PO DAILY 09/03/17 Nifedipine ER [Procardia XL -] 60 mg PO DAILY #30 tab.er.24 09/10/17 Furosemide [Lasix] 40 mg PO DAILY #30 tablet 09/27/17 Family Disease History - Family Disease History Family Disease History: CA: Mother, Sister Physical Exam Vital Signs: Vital Signs Temperature 98.7 F 10/24/17 15:25 Pulse Rate 65 10/24/17 15:25 Respiratory Rate 18 10/24/17 15:25 Blood Pressure 142/61 10/24/17 15:25 O2 Sat by Pulse Oximetry (%) 94 L 10/24/17 09:00 Constitutional: Yes: No Distress Eyes: Yes: WNL HENT: Yes: WNL Extremities: Yes: Other (Left arm fistula with thrill. No edema.) Labs: CBC, BMP 10/24/17 09:13 10/24/17 09:13 Problem List - Problems (1) ESRD (end stage renal disease) Assessment/Plan: Plan placement of Permacath for access until fistula is mature. Code(s): N18.6 - END STAGE RENAL DISEASE
[2017-10-24] MEDS: DOCUSATE SODIUM 100 MG CAPSULE (FP) PO SCH (22:02)
[2017-10-24] MEDS: TAMSULOSIN HCL 0.4 MG CAP.ER.24H (FP) PO SCH (22:09)
[2017-10-24] MEDS: ATORVASTATIN CA 20 MG TABLET (FP) PO SCH (22:11)
[2017-10-24] MEDS: CLOPIDOGREL BISULFATE 75 MG TABLET (FP) PO SCH (22:13)
[2017-10-24] MEDS: INSULIN DETEMIR 100 UNITS/ML MDV SQ SCH (23:36)
[2017-10-25] MEDS: HEPARIN NA (PORCINE) 5,000 UNITS/ML 1ML VIAL SQ SCH ×3 (02:59→21:31)
[2017-10-25] MEDS: INSULIN SLIDING SCALE (NOVOLOG) 1 VIAL SQ SCH ×4 (06:32→21:34)
[2017-10-25 08:19] LABS: BASO % 0.8 % (0-2.0); HEMATOCRIT 25.4 % (35.4-49); HEMOGLOBIN 8.2 GM/dL (11.7-16.9); LYMPH % 12.8 % (8-40); MCH 29.4 pg (25.7-33.7); MCHC 32.4 g/dl (32.0-35.9); MEAN CELL VOLUME 90.8 fl (80-96); MEAN PLT VOLUME 6.9 fl (7.5-11.1); MONO % 14.8 % (3.8-10.2); NEUT % 69.6 % (42.8-82.8); PLATELET COUNT 157 K/MM3 (134-434); RDW 20.7 % (11.9-15.9); WHITE BLOOD COUNT 4.6 K/mm3 (4.0-10.0)
[2017-10-25 08:42] LABS: ALBUMIN 2.8 g/dl (3.4-5.0); ANION GAP 13 (8-16); BILIRUBIN,TOTAL 0.6 mg/dL (0.2-1.0); CALCIUM 8.1 mg/dL (8.5-10.1); CHLORIDE 111 mmol/L (98-107); CO2 22 mmol/L (21-32); CREATININE 5.3 mg/dL (0.7-1.3); GLUCOSE,RANDOM 77 mg/dL (74-106); MAGNESIUM 2.3 mg/dL (1.8-2.4); POTASSIUM 3.5 mmol/L (3.5-5.1); SGOT/AST 11 U/L (15-37); SGPT/ALT 25 U/L (12-78); SODIUM 146 mmol/L (136-145); TOT PROT 6.7 g/dl (6.4-8.2)
[2017-10-25 08:43] LABS: ALK PHOS 100 U/L (45-117)
[2017-10-25 08:49] LABS: BLOOD UREA NITROGEN 111 mg/dL (7-18)
[2017-10-25] MEDS: NIFEdipine E.R. 30 MG TABLET (FP) PO SCH (10:23)
[2017-10-25] MEDS: FUROSEMIDE 40 MG TABLET (FP) PO SCH (10:23)
[2017-10-25] MEDS: CARVEDILOL 12.5 MG TABLET (FP) PO SCH ×2 (10:23→21:31)
[2017-10-25] MEDS: PANTOPRAZOLE 40 MG TABLET (FP) PO SCH (10:23)
[2017-10-25] MEDS: CHOLECALCIFEROL (VITAMIN D3) 1,000 UNIT TABLET (FP) PO SCH (10:23)
[2017-10-25] MEDS: GABAPENTIN 100 MG CAPSULE (FP) PO SCH (10:24)
[2017-10-25] MEDS: LIDOCAINE 5% TOPICAL PATCH TP SCH (10:24)
[2017-10-25] MEDS: CITALOPRAM HYDROBROMIDE 20 MG TABLET (FP) PO SCH (10:24)
[2017-10-25] MEDS: POLYETHYLENE GLYCOL 3350 119 GM BTL PO SCH (10:24)
[2017-10-25] MEDS: FERROUS SO4 325 MG TABLET (FP) PO SCH (10:24)
--- NOTE | 2017-10-25 11:42 | PN ---
Physical Exam: SUBJECTIVE: Patient seen and examined. Waiting to go for permacat. OBJECTIVE: Vital Signs Period Temp Pulse Resp BP Sys/Rodriguez Pulse Ox Last 24 Hr 98.2 F-98.8 F 55-65 18-18 126-147/52-64 94 GENERAL: Awake, alert, and fully oriented, in no acute distress. HEAD: Normal with no signs of trauma. EYES: Pupils equal, round and reactive to light, extraocular movements intact, sclera anicteric, conjunctiva clear. No lid lag. EARS, NOSE, THROAT: Ears normal, nares patent, oropharynx clear without exudates. Moist mucous membranes. NECK: Normal range of motion, supple without lymphadenopathy, JVD, or masses. LUNGS: Bibasilar crackles HEART: Regular rate and rhythm, normal S1 and S2 without murmur, rub or gallop. ABDOMEN: Soft, nontender, not distended, normoactive bowel sounds, no guarding, no rebound, no masses. No hepatomegaly or splenomegaly. MUSCULOSKELETAL: Normal range of motion at all joints. No bony deformities or tenderness. No CVA tenderness. UPPER EXTREMITIES: 2+ pulses, warm, well-perfused. No cyanosis. No clubbing. No peripheral edema. LOWER EXTREMITIES: 2+ pulses, warm, well-perfused. 3+ edema, mildly improved NEUROLOGICAL: Cranial nerves II-XII intact. Normal speech. Laboratory Results - last 24 hr 10/24/17 10/24/17 10/24/17 12:06 17:02 23:22 WBC RBC Hgb Hct MCV MCH MCHC RDW Plt Count MPV Neutrophils % Lymphocytes % Monocytes % Eosinophils % Basophils % Sodium Potassium Chloride Carbon Dioxide Anion Gap BUN Creatinine Creat Clearance w eGFR POC Glucometer 173 231 313 Random Glucose Calcium Magnesium Total Bilirubin AST ALT Alkaline Phosphatase Total Protein Albumin 10/25/17 10/25/17 10/25/17 05:48 06:20 06:20 WBC 4.6 RBC 2.80 L Hgb 8.2 L Hct 25.4 L MCV 90.8 MCH 29.4 MCHC 32.4 RDW 20.7 H Plt Count 157 MPV 6.9 L Neutrophils % 69.6 Lymphocytes % 12.8 D Monocytes % 14.8 H Eosinophils % 2.0 D Basophils % 0.8 Sodium 146 H Potassium 3.5 Chloride 111 H Carbon Dioxide 22 Anion Gap 13 BUN 111 H* Creatinine 5.3 H Creat Clearance w eGFR 10.72 POC Glucometer 118 Random Glucose 77 Calcium 8.1 L Magnesium 2.3 Total Bilirubin 0.6 AST 11 L ALT 25 Alkaline Phosphatase 100 Total Protein 6.7 Albumin 2.8 L Active Medications Generic Name Dose Route Start Last Admin Trade Name David PRN Reason Stop Dose Admin Atorvastatin Calcium 20 mg 10/23/17 22:00 10/24/17 22:11 Lipitor - PO 20 mg HS ROSIE Administration Carvedilol 12.5 mg 10/23/17 22:00 10/25/17 10:23 Coreg - PO 12.5 mg BID ROSIE Administration Cholecalciferol 1,000 unit 10/24/17 10:00 10/25/17 10:23 Vitamin D3 - PO 1,000 unit DAILY [facility] Administration Citalopram Hydrobromide 20 mg 10/24/17 10:00 10/25/17 10:24 Celexa - PO 20 mg DAILY ROS[facility] Administration Clopidogrel Bisulfate 75 mg 10/23/17 22:00 10/24/17 22:13 Plavix - PO 75 mg HS ROSIE Administration Docusate Sodium 300 mg 10/23/17 22:00 10/24/17 22:02 Colace - PO 300 mg HS ROSIE Administration Ferrous Sulfate 325 mg 10/24/17 10:00 10/25/17 10:24 Feosol - PO 325 mg DAILY [facility] Administration Furosemide 40 mg 10/24/17 10:00 10/25/17 10:23 Lasix - PO 40 mg DAILY [facility] Administration Gabapentin 100 mg 10/24/17 10:00 10/25/17 10:24 Neurontin - PO 100 mg DAILY [facility] Administration Heparin Sodium (Porcine) 5,000 unit 10/23/17 18:00 10/25/17 10:24 Heparin - SQ Not Given Q8H-IV [facility] Insulin Aspart 1 vial 10/24/17 07:00 10/25/17 06:32 Novolog Vial Sliding Scale - SQ Not Given ACHS [facility] Protocol Insulin Detemir 15 units 10/23/17 22:00 10/24/17 23:36 Levemir Vial SQ 15 units HS [facility] Administration Lidocaine 1 patch 10/24/17 10:00 10/25/17 10:24 Lidoderm Patch - TP 1 patch DAILY [facility] Administration Nifedipine 60 mg 10/24/17 10:00 10/25/17 10:23 Procardia Xl - PO 60 mg DAILY [facility] Administration Pantoprazole Sodium 40 mg 10/24/17 10:00 10/25/17 10:23 Protonix - PO 40 mg DAILY [facility] Administration Polyethylene Glycol 17 gm 10/24/17 10:00 10/25/17 10:24 Miralax (For Daily Use) - PO 17 gm DAILY [facility] Administration Tamsulosin HCl 0.4 mg 10/23/17 22:00 10/24/17 22:09 Flomax - PO 0.4 mg HS ROSIE Administration ASSESSMENT/PLAN: 72 year-old male with a PMH significant for HTN, CAD s/p [place] s/p CABG, diastolic LV dysfunction, PAD s/p lower extremity bypass, IDDM, h/o GI bleed, neurogenic bladder, BPH, and ESRD not previously on HD. AV fistula placed on 09/27/17, but not yet mature. Will need permacath placement and initiation of hemodialysis. ESRD --scheduled for permacath and HD today --renal following --vascular following --continue Lasix PO 40mg daily Neurogenic bladder BPH --continue Flomax Hypertension --continue carvedilol, nifedipine Coronary artery disease Peripheral arterial disease --continue carvedilol, Lipitor, Plavix Diastolic LV dysfunction --continue lasix IDDM --Levemir 15U qhs --Novolog sliding scale coverage Hypokalemia --repleted FEN Fluids: PO intake adequate Electrolytes: replete as indicated Nutrition: low sodium, diabetic DVT prophylaxis: subq heparin, oob, ambulation Physical therapy Dispo: continues to require inpatient care. Full code. Visit type - Emergency Visit Emergency Visit: Yes ED Registration Date: 10/23/17 Care time: The patient presented to the Emergency Department on the above date and was hospitalized for further evaluation of their emergent condition. - New Patient This patient is new to me today: No - Critical Care Critical Care patient: No
[2017-10-25] MEDS ORDERED: LIDOCAINE HCL 1%, 10 MG/ML (20ML VIAL) ONE (14:20)
--- NOTE | 2017-10-25 14:49 | PN ---
Progress Note, Physician History of Present Illness: Pt seen and examined a bedside. He is awake and alert. He is going for permacath today. - Current Medication List Current Medications: Active Medications Atorvastatin Calcium (Lipitor -) 20 mg PO HS [facility] Last Admin: 10/24/17 22:11 Dose: 20 mg Carvedilol (Coreg -) 12.5 mg PO BID [facility] Last Admin: 10/25/17 10:23 Dose: 12.5 mg Cholecalciferol (Vitamin D3 -) 1,000 unit PO DAILY [facility] Last Admin: 10/25/17 10:23 Dose: 1,000 unit Citalopram Hydrobromide (Celexa -) 20 mg PO DAILY [facility] Last Admin: 10/25/17 10:24 Dose: 20 mg Clopidogrel Bisulfate (Plavix -) 75 mg PO HS [facility] Last Admin: 10/24/17 22:13 Dose: 75 mg Docusate Sodium (Colace -) 300 mg PO HS [facility] Last Admin: 10/24/17 22:02 Dose: 300 mg Ferrous Sulfate (Feosol -) 325 mg PO DAILY [facility] Last Admin: 10/25/17 10:24 Dose: 325 mg Furosemide (Lasix -) 40 mg PO DAILY [facility] Last Admin: 10/25/17 10:23 Dose: 40 mg Gabapentin (Neurontin -) 100 mg PO DAILY [facility] Last Admin: 10/25/17 10:24 Dose: 100 mg Heparin Sodium (Porcine) (Heparin -) 5,000 unit SQ Q8H-IV [facility] Last Admin: 10/25/17 10:24 Dose: Not Given Insulin Aspart (Novolog Vial Sliding Scale -) 1 vial SQ [facility] PRN Reason: Protocol Last Admin: 10/25/17 12:27 Dose: Not Given Insulin Detemir (Levemir Vial) 15 units SQ HS [facility] Last Admin: 10/24/17 23:36 Dose: 15 units Lidocaine (Lidoderm Patch -) 1 patch TP DAILY [facility] Last Admin: 10/25/17 10:24 Dose: 1 patch Nifedipine (Procardia Xl -) 60 mg PO DAILY [facility] Last Admin: 10/25/17 10:23 Dose: 60 mg Pantoprazole Sodium (Protonix -) 40 mg PO DAILY [facility] Last Admin: 10/25/17 10:23 Dose: 40 mg Polyethylene Glycol (Miralax (For Daily Use) -) 17 gm PO DAILY [facility] Last Admin: 10/25/17 10:24 Dose: 17 gm Tamsulosin HCl (Flomax -) 0.4 mg PO HS [facility] Last Admin: 10/24/17 22:09 Dose: 0.4 mg - Objective Vital Signs: Vital Signs Temperature 97.8 F 10/25/17 14:18 Pulse Rate 56 L 10/25/17 14:18 Respiratory Rate 18 10/25/17 14:18 Blood Pressure 148/56 10/25/17 14:18 O2 Sat by Pulse Oximetry (%) 94 L 10/25/17 01:14 Constitutional: Yes: Calm Eyes: Yes: Conjunctiva Clear Cardiovascular: Yes: S1, S2 Respiratory: Yes: CTA Bilaterally Gastrointestinal: Yes: Normal Bowel Sounds, Soft Genitourinary: Yes: WNL Musculoskeletal: Yes: WNL Edema: Yes Edema: LLE: 1+, RLE: 1+ Neurological: Yes: Oriented Psychiatric: Yes: Oriented Labs: CBC, BMP 10/25/17 06:20 10/25/17 06:20 INR, PTT INR 1.50 (0.82-1.09) H 10/23/17 13:14 Problem List - Problems (1) Fluid overload Code(s): E87.70 - FLUID OVERLOAD, UNSPECIFIED Qualifiers: Hypervolemia type: other Qualified Code(s): E87.79 - Other fluid overload (2) CKD (chronic kidney disease) Code(s): N18.9 - CHRONIC KIDNEY DISEASE, UNSPECIFIED Qualifiers: Chronic kidney disease stage: unspecified stage Qualified Code(s): N18.9 - Chronic kidney disease, unspecified (3) Diabetes Code(s): E11.9 - TYPE 2 DIABETES MELLITUS WITHOUT COMPLICATIONS Qualifiers: 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 type: type 2 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 residential insulin use: unspecified residential insulin use status 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 complication status : with kidney complications 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 complication detail: with nephropathy Qualified Code(s): E11.21 - Type 2 diabetes mellitus with diabetic nephropathy Assessment/Plan Current Medications Generic Name Dose Route Start Last Admin Trade Name Freq PRN Reason Stop Dose Admin Atorvastatin Calcium 20 mg 10/23/17 22:00 10/24/17 22:11 Lipitor - PO 20 mg HS ROSIE Administration Carvedilol 12.5 mg 10/23/17 22:00 10/25/17 10:23 Coreg - PO 12.5 mg BID ROSIE Administration Cholecalciferol 1,000 unit 10/24/17 10:00 10/25/17 10:23 Vitamin D3 - PO 1,000 unit DAILY [facility]IE Administration Citalopram Hydrobromide 20 mg 10/24/17 10:00 10/25/17 10:24 Celexa - PO 20 mg DAILY [facility] Administration Clopidogrel Bisulfate 75 mg 10/23/17 22:00 10/24/17 22:13 Plavix - PO 75 mg HS ROSIE Administration Docusate Sodium 300 mg 10/23/17 22:00 10/24/17 22:02 Colace - PO 300 mg HS ROSIE Administration Ferrous Sulfate 325 mg 10/24/17 10:00 10/25/17 10:24 Feosol - PO 325 mg DAILY [facility]IE Administration Furosemide 40 mg 10/24/17 10:00 10/25/17 10:23 Lasix - PO 40 mg DAILY [facility]IE Administration Gabapentin 100 mg 10/24/17 10:00 10/25/17 10:24 Neurontin - PO 100 mg DAILY [facility] Administration Heparin Sodium (Porcine) 5,000 unit 10/23/17 18:00 10/25/17 10:24 Heparin - SQ Not Given Q8H-IV [facility] Insulin Aspart 1 vial 10/24/17 07:00 10/25/17 12:27 Novolog Vial Sliding Scale - SQ Not Given ACHS [facility] Protocol Insulin Detemir 15 units 10/23/17 22:00 10/24/17 23:36 Levemir Vial SQ 15 units HS [facility] Administration Lidocaine 1 patch 10/24/17 10:00 10/25/17 10:24 Lidoderm Patch - TP 1 patch DAILY [facility] Administration Nifedipine 60 mg 10/24/17 10:00 10/25/17 10:23 Procardia Xl - PO 60 mg DAILY [facility] Administration Pantoprazole Sodium 40 mg 10/24/17 10:00 10/25/17 10:23 Protonix - PO 40 mg DAILY [facility] Administration Polyethylene Glycol 17 gm 10/24/17 10:00 10/25/17 10:24 Miralax (For Daily Use) - PO 17 gm DAILY [facility] Administration Tamsulosin HCl 0.4 mg 10/23/17 22:00 10/24/17 22:09 Flomax - PO 0.4 mg HS ROSIE Administration Impression 1. CKD 2. anemia 3. HTN 4. Chol 5. DM 6. BPH 7. CAD 8. urinary retention 9. GI bleed 10. fluid overload Plan - pt is going for a permacath today - will likely dialyze tomorrow as he is getting permacath later in the day - check hep status - send HD information to [facility] - volume status has been difficult to control as outpt - fistula not yet mature, vascular to evaluate - cont with lasix
[2017-10-25] MEDS ORDERED: SODIUM CHLORIDE 250 ML IV PRN ×2 (15:41→18:20)
[2017-10-25] MEDS ORDERED: MIDAZOLAM HCL 2 MG/2 ML SINGLE DOSE VIAL ONE (17:15)
[2017-10-25] MEDS ORDERED: LIDOCAINE HCL 1%, 10 MG/ML (20ML VIAL) PNB ONE ×2 (17:29→17:35)
[2017-10-25] MEDS ORDERED: ceFAZolin SODIUM 1 GM VIAL ONE (17:29)
--- NOTE | 2017-10-25 18:06 | OP ---
Operative Note - Note: Operative Date: 10/25/17 Pre-Operative Diagnosis: ESRD Operation: Placement Permacath Findings: Patent Jugular vein Implants: Permacath 19 cm Post-Operative Diagnosis: Same as Pre-op Surgeon: Augustin Schofield Anesthesiologist/DESIZING MACHINE OPERATOR HEAD END: Tosha Richards Anesthesia: Fractional
--- NOTE | 2017-10-25 19:53 | SPEC ---
DATE OF OPERATION: 10/25/2017 OPERATION: Insertion of Perma-Cath, right side placement. SURGEON: Wicho Gil M.D. ANESTHESIA: Fractional ANESTHESIOLOGIST: Tosha Richards D.O. PROCEDURE: Following intravenous sedation, the patient was placed in the Trendelenburg position. The neck and chest were prepped with Betadine solution. 1% Xylocaine was infiltrated subcutaneously in the neck and the internal jugular vein cannulated with a fine needle. A fine flexible wire was passed proximally under fluoroscopic guidance into the superior vena cava. The tract around the wire was dilated and the wire was exchanged for a larger diameter wire. Additional Xylocaine was infiltrated on the chest wall and a stab wound made beneath the clavicle. With the aid of a tunneler, the catheter was passed from chest to neck to exit next the wire. The tract around the wire was again dilated and the introducer placed into the superior vena cava. The wire and the dilator were removed. The Perma-Cath was then passed through the introducer and the tips positioned in the right atrium. The introducer was peeled away, leaving the catheter in place. Each lumen was aspirated for blood and flushed with saline and Heparin solution. The neck wound was closed with a subcuticular suture of 4-0 Vicryl and the catheter was sutured to the skin at the exit site with 3-0 Nylon. Sterile dressings were applied and the patient was taken to the recovery room for a chest x-ray. WICHO GIL M.D. [id number]
[2017-10-25] MEDS: CLOPIDOGREL BISULFATE 75 MG TABLET (FP) PO SCH (21:30)
[2017-10-25] MEDS: TAMSULOSIN HCL 0.4 MG CAP.ER.24H (FP) PO SCH (21:30)
[2017-10-25] MEDS: DOCUSATE SODIUM 100 MG CAPSULE (FP) PO SCH (21:31)
[2017-10-25] MEDS: ATORVASTATIN CA 20 MG TABLET (FP) PO SCH (21:31)
[2017-10-25] MEDS: INSULIN DETEMIR 100 UNITS/ML MDV SQ SCH (21:32)
[2017-10-25] MEDS: LIDOCAINE PATCH REMOVAL MC SCH (21:48)
[2017-10-26 06:07] LABS: HEP.C VIRUS AB 0.1 s/co ratio (0.0-0.9)
[2017-10-26] MEDS: HEPARIN NA (PORCINE) 5,000 UNITS/ML 1ML VIAL SQ SCH ×3 (06:28→21:27)
[2017-10-26] MEDS: INSULIN SLIDING SCALE (NOVOLOG) 1 VIAL SQ SCH ×4 (06:28→21:28)
[2017-10-26] MEDS ORDERED: INSULIN (NOVOLOG) ASPART 100 UNITS/ML 10ML VIAL ONE ×2 (11:19→21:13)
[2017-10-26] MEDS: FERROUS SO4 325 MG TABLET (FP) PO SCH (12:48)
[2017-10-26] MEDS: CITALOPRAM HYDROBROMIDE 20 MG TABLET (FP) PO SCH (12:48)
[2017-10-26] MEDS: GABAPENTIN 100 MG CAPSULE (FP) PO SCH (12:48)
[2017-10-26] MEDS: LIDOCAINE 5% TOPICAL PATCH TP SCH (12:48)
[2017-10-26] MEDS: CARVEDILOL 12.5 MG TABLET (FP) PO SCH ×2 (12:49→21:27)
[2017-10-26] MEDS: PANTOPRAZOLE 40 MG TABLET (FP) PO SCH (12:49)
[2017-10-26] MEDS: NIFEdipine E.R. 30 MG TABLET (FP) PO SCH (12:49)
[2017-10-26] MEDS: CHOLECALCIFEROL (VITAMIN D3) 1,000 UNIT TABLET (FP) PO SCH (12:50)
[2017-10-26] MEDS: POLYETHYLENE GLYCOL 3350 119 GM BTL PO SCH (12:51)
--- NOTE | 2017-10-26 15:11 | PN ---
Physical Exam: SUBJECTIVE: Patient seen and examined after first HD session. Tolerated well. OBJECTIVE: Vital Signs Period Temp Pulse Resp BP Sys/Rodriguez Pulse Ox Last 24 Hr 97.9 F-98.2 F 53-60 10-22 119-169/42-71 96-99 GENERAL: Awake, alert, and fully oriented, in no acute distress. LUNGS: CTA HEART: Regular rate and rhythm, normal S1 and S2 without murmur, rub or gallop; permacath upper right chest ABDOMEN: Soft, nontender, not distended, normoactive bowel sounds, no guarding, no rebound, no masses. MUSCULOSKELETAL: Normal range of motion at all joints. No bony deformities or tenderness. No CVA tenderness. UPPER EXTREMITIES: 2+ pulses, warm, well-perfused. No cyanosis. No clubbing. No peripheral edema. LOWER EXTREMITIES: 2+ pulses, warm, well-perfused. 3+ edema, mildly improved NEUROLOGICAL: Cranial nerves II-XII intact. Normal speech. CBCD WBC 4.6 K/mm3 (4.0-10.0) 10/25/17 06:20 RBC 2.80 M/mm3 (4.00-5.60) L 10/25/17 06:20 Hgb 8.2 GM/dL (11.7-16.9) L 10/25/17 06:20 Hct 25.4 % (35.4-49) L 10/25/17 06:20 MCV 90.8 fl (80-96) 10/25/17 06:20 MCHC 32.4 g/dl (32.0-35.9) 10/25/17 06:20 RDW 20.7 % (11.9-15.9) H 10/25/17 06:20 Plt Count 157 K/MM3 (134-434) 10/25/17 06:20 MPV 6.9 fl (7.5-11.1) L 10/25/17 06:20 CMP Sodium 146 mmol/L (136-145) H 10/25/17 06:20 Potassium 3.5 mmol/L (3.5-5.1) 10/25/17 06:20 Chloride 111 mmol/L (98-107) H 10/25/17 06:20 Carbon Dioxide 22 mmol/L (21-32) 10/25/17 06:20 Anion Gap 13 (8-16) 10/25/17 06:20 BUN 111 mg/dL (7-18) H* 10/25/17 06:20 Creatinine 5.3 mg/dL (0.7-1.3) H 10/25/17 06:20 Creat Clearance w eGFR 10.72 (>60) 10/25/17 06:20 Calcium 8.1 mg/dL (8.5-10.1) L 10/25/17 06:20 Total Bilirubin 0.6 mg/dL (0.2-1.0) 10/25/17 06:20 AST 11 U/L (15-37) L 10/25/17 06:20 ALT 25 U/L (12-78) 10/25/17 06:20 Alkaline Phosphatase 100 U/L (45-117) 10/25/17 06:20 Total Protein 6.7 g/dl (6.4-8.2) 10/25/17 06:20 Albumin 2.8 g/dl (3.4-5.0) L 10/25/17 06:20 Active Medications Generic Name Dose Route Start Last Admin Trade Name Freq PRN Reason Stop Dose Admin Atorvastatin Calcium 20 mg 10/25/17 22:00 10/25/17 21:31 Lipitor - PO 20 mg HS [facility]IE Administration Carvedilol 12.5 mg 10/25/17 22:00 10/26/17 12:49 Coreg - PO 12.5 mg BID [facility]IE Administration Cholecalciferol 1,000 unit 10/26/17 10:00 10/26/17 12:50 Vitamin D3 - PO 1,000 unit DAILY [facility] Administration Citalopram Hydrobromide 20 mg 10/26/17 10:00 10/26/17 12:48 Celexa - PO 20 mg DAILY [facility] Administration Clopidogrel Bisulfate 75 mg 10/25/17 22:00 10/25/17 21:30 Plavix - PO 75 mg HS ROSIE Administration Docusate Sodium 300 mg 10/25/17 22:00 10/25/17 21:31 Colace - PO 300 mg HS [facility]IE Administration Ferrous Sulfate 325 mg 10/26/17 10:00 10/26/17 12:48 Feosol - PO 325 mg DAILY [facility] Administration Furosemide 40 mg 10/26/17 10:00 10/26/17 12:48 Lasix - PO 40 mg DAILY [facility] Administration Gabapentin 100 mg 10/26/17 10:00 10/26/17 12:48 Neurontin - PO 100 mg DAILY [facility] Administration Heparin Sodium (Porcine) 5,000 unit 10/25/17 22:00 10/26/17 14:39 Heparin - SQ 5,000 unit TID [facility]IE Administration Sodium Chloride 250 mls @ 3,000 mls/hr 10/25/17 18:20 Normal Saline - IV 10/26/17 15:41 PRN PRN Hypotension during Dialysis Insulin Aspart 1 vial 10/25/17 22:00 10/26/17 11:50 Novolog Vial Sliding Scale - SQ Not Given ACHS [facility] Protocol Insulin Detemir 15 units 10/25/17 22:00 10/25/17 21:32 Levemir Vial SQ 15 unit HS [facility] Administration Lidocaine 1 patch 10/26/17 10:00 10/26/17 12:48 Lidoderm Patch - TP 1 patch DAILY [facility] Administration Miscellaneous 1 each 10/25/17 22:00 10/25/17 21:48 Lidoderm Patch Removal MC 1 each DAILY@2200 ROSIE Administration Nifedipine 60 mg 10/26/17 10:00 10/26/17 12:49 Procardia Xl - PO 60 mg DAILY [facility] Administration Pantoprazole Sodium 40 mg 10/26/17 10:00 10/26/17 12:49 Protonix - PO 40 mg DAILY [facility] Administration Polyethylene Glycol 17 gm 10/26/17 10:00 10/26/17 12:51 Miralax (For Daily Use) - PO 17 grams DAILY [facility] Administration Tamsulosin HCl 0.4 mg 10/25/17 22:00 10/25/17 21:30 Flomax - PO 0.4 mg HS [facility]IE Administration ASSESSMENT/PLAN: 72 year-old male with a PMH significant for HTN, CAD s/p [place] s/p CABG, diastolic LV dysfunction, PAD s/p lower extremity bypass, IDDM, h/o GI bleed, neurogenic bladder, BPH, and ESRD not previously on HD. AV fistula placed on 09/27/17, but not yet mature. Will need permacath placement and initiation of hemodialysis. ESRD --first HD session today, another session scheduled for tomorrow Neurogenic bladder BPH --continue Flomax Hypertension --continue carvedilol, nifedipine Coronary artery disease Peripheral arterial disease --continue carvedilol, Lipitor, Plavix Diastolic LV dysfunction --continue lasix PO 40mg daily for now IDDM --Levemir 15U qhs --Novolog sliding scale coverage FEN Fluids: PO intake adequate Electrolytes: replete as indicated Nutrition: low sodium, diabetic DVT prophylaxis: subq heparin, oob, ambulation Physical therapy Dispo: can be discharged tomorrow after dialysis; social work associate working on SNF and HD placement. Full code. Visit type - Emergency Visit Emergency Visit: Yes ED Registration Date: 10/23/17 Care time: The patient presented to the Emergency Department on the above date and was hospitalized for further evaluation of their emergent condition. - New Patient This patient is new to me today: No - Critical Care Critical Care patient: No
[2017-10-26] MEDS ORDERED: SODIUM CHLORIDE 250 ML IV PRN (16:15)
--- NOTE | 2017-10-26 16:15 | PN ---
Progress Note, Physician History of Present Illness: Pt seen and examined at bedside. He is awake and alert. He tolerated HD. - Current Medication List Current Medications: Active Medications Atorvastatin Calcium (Lipitor -) 20 mg PO HS [facility] Last Admin: 10/25/17 21:31 Dose: 20 mg Carvedilol (Coreg -) 12.5 mg PO BID [facility] Last Admin: 10/26/17 12:49 Dose: 12.5 mg Cholecalciferol (Vitamin D3 -) 1,000 unit PO DAILY [facility] Last Admin: 10/26/17 12:50 Dose: 1,000 unit Citalopram Hydrobromide (Celexa -) 20 mg PO DAILY [facility] Last Admin: 10/26/17 12:48 Dose: 20 mg Clopidogrel Bisulfate (Plavix -) 75 mg PO HS [facility] Last Admin: 10/25/17 21:30 Dose: 75 mg Docusate Sodium (Colace -) 300 mg PO HS [facility] Last Admin: 10/25/17 21:31 Dose: 300 mg Ferrous Sulfate (Feosol -) 325 mg PO DAILY [facility] Last Admin: 10/26/17 12:48 Dose: 325 mg Furosemide (Lasix -) 40 mg PO DAILY [facility] Last Admin: 10/26/17 12:48 Dose: 40 mg Gabapentin (Neurontin -) 100 mg PO DAILY [facility] Last Admin: 10/26/17 12:48 Dose: 100 mg Heparin Sodium (Porcine) (Heparin -) 5,000 unit SQ TID [facility] Last Admin: 10/26/17 14:39 Dose: 5,000 unit Sodium Chloride (Normal Saline -) 250 mls @ 3,000 mls/hr IV PRN PRN PRN Reason: Hypotension during Dialysis Stop: 10/26/17 15:41 Insulin Aspart (Novolog Vial Sliding Scale -) 1 vial SQ ACHS [facility] PRN Reason: Protocol Last Admin: 10/26/17 11:50 Dose: Not Given Insulin Detemir (Levemir Vial) 15 units SQ HS [facility] Last Admin: 10/25/17 21:32 Dose: 15 unit Lidocaine (Lidoderm Patch -) 1 patch TP DAILY [facility] Last Admin: 10/26/17 12:48 Dose: 1 patch Miscellaneous (Lidoderm Patch Removal) 1 each MC DAILY@2200 [facility] Last Admin: 10/25/17 21:48 Dose: 1 each Nifedipine (Procardia Xl -) 60 mg PO DAILY [facility] Last Admin: 10/26/17 12:49 Dose: 60 mg Pantoprazole Sodium (Protonix -) 40 mg PO DAILY [facility] Last Admin: 10/26/17 12:49 Dose: 40 mg Polyethylene Glycol (Miralax (For Daily Use) -) 17 gm PO DAILY [facility] Last Admin: 10/26/17 12:51 Dose: 17 grams Tamsulosin HCl (Flomax -) 0.4 mg PO HS [facility] Last Admin: 10/25/17 21:30 Dose: 0.4 mg - Objective Vital Signs: Vital Signs Temperature 98 F 10/26/17 15:33 Pulse Rate 63 10/26/17 15:33 Respiratory Rate 17 10/26/17 15:33 Blood Pressure 164/68 10/26/17 15:33 O2 Sat by Pulse Oximetry (%) 96 10/25/17 20:21 Constitutional: Yes: Calm Eyes: Yes: Conjunctiva Clear HENT: Yes: Atraumatic Neck: Yes: Supple Cardiovascular: Yes: S1, S2 Respiratory: Yes: CTA Bilaterally Gastrointestinal: Yes: Normal Bowel Sounds, Soft Genitourinary: Yes: WNL Musculoskeletal: Yes: WNL Edema: Yes Neurological: Yes: Oriented Psychiatric: Yes: Oriented Labs: CBC, BMP 10/25/17 06:20 10/25/17 06:20 INR, PTT INR 1.50 (0.82-1.09) H 10/23/17 13:14 Problem List - Problems (1) Fluid overload Code(s): E87.70 - FLUID OVERLOAD, UNSPECIFIED Qualifiers: Hypervolemia type: other Qualified Code(s): E87.79 - Other fluid overload (2) CKD (chronic kidney disease) Code(s): N18.9 - CHRONIC KIDNEY DISEASE, UNSPECIFIED Qualifiers: Chronic kidney disease stage: unspecified stage Qualified Code(s): N18.9 - Chronic kidney disease, unspecified (3) Diabetes Code(s): E11.9 - TYPE 2 DIABETES MELLITUS WITHOUT COMPLICATIONS Qualifiers: 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 type: type 2 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 usp insulin use: unspecified usp insulin use status 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 complication status : with kidney complications 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 complication detail: with nephropathy Qualified Code(s): E11.21 - Type 2 diabetes mellitus with diabetic nephropathy Assessment/Plan Current Medications Generic Name Dose Route Start Last Admin Trade Name Freq PRN Reason Stop Dose Admin Atorvastatin Calcium 20 mg 10/25/17 22:00 10/25/17 21:31 Lipitor - PO 20 mg HS ROSIE Administration Carvedilol 12.5 mg 10/25/17 22:00 10/26/17 12:49 Coreg - PO 12.5 mg BID [facility] Administration Cholecalciferol 1,000 unit 10/26/17 10:00 10/26/17 12:50 Vitamin D3 - PO 1,000 unit DAILY [facility] Administration Citalopram Hydrobromide 20 mg 10/26/17 10:00 10/26/17 12:48 Celexa - PO 20 mg DAILY [facility] Administration Clopidogrel Bisulfate 75 mg 10/25/17 22:00 10/25/17 21:30 Plavix - PO 75 mg HS ROSIE Administration Docusate Sodium 300 mg 10/25/17 22:00 10/25/17 21:31 Colace - PO 300 mg HS [facility] Administration Ferrous Sulfate 325 mg 10/26/17 10:00 10/26/17 12:48 Feosol - PO 325 mg DAILY [facility] Administration Furosemide 40 mg 10/26/17 10:00 10/26/17 12:48 Lasix - PO 40 mg DAILY [facility] Administration Gabapentin 100 mg 10/26/17 10:00 10/26/17 12:48 Neurontin - PO 100 mg DAILY [facility] Administration Heparin Sodium (Porcine) 5,000 unit 10/25/17 22:00 10/26/17 14:39 Heparin - SQ 5,000 unit TID [facility]IE Administration Sodium Chloride 250 mls @ 3,000 mls/hr 10/25/17 18:20 Normal Saline - IV 10/26/17 15:41 PRN PRN Hypotension during Dialysis Insulin Aspart 1 vial 10/25/17 22:00 10/26/17 11:50 Novolog Vial Sliding Scale - SQ Not Given ACHS [facility] Protocol Insulin Detemir 15 units 10/25/17 22:00 10/25/17 21:32 Levemir Vial SQ 15 unit HS [facility] Administration Lidocaine 1 patch 10/26/17 10:00 10/26/17 12:48 Lidoderm Patch - TP 1 patch DAILY [facility] Administration Miscellaneous 1 each 10/25/17 22:00 10/25/17 21:48 Lidoderm Patch Removal MC 1 each DAILY@2200 [facility] Administration Nifedipine 60 mg 10/26/17 10:00 10/26/17 12:49 Procardia Xl - PO 60 mg DAILY [facility] Administration Pantoprazole Sodium 40 mg 10/26/17 10:00 10/26/17 12:49 Protonix - PO 40 mg DAILY [facility] Administration Polyethylene Glycol 17 gm 10/26/17 10:00 10/26/17 12:51 Miralax (For Daily Use) - PO 17 grams DAILY [facility] Administration Tamsulosin HCl 0.4 mg 10/25/17 22:00 10/25/17 21:30 Flomax - PO 0.4 mg HS [facility] Administration Impression 1. ESRD 2. anemia 3. HTN 4. Chol 5. DM 6. BPH 7. CAD 8. urinary retention 9. GI bleed 10. fluid overload Plan - pt tolerated HD today, had a short run - will arrange for HD again in am - epogen for anemia - 3 k bath - check hep status - send HD information to [facility] - fistula not yet mature, vascular to evaluate
[2017-10-26] MEDS: FUROSEMIDE 40 MG TABLET (FP) PO SCH (16:41)
[2017-10-26] MEDS: DOCUSATE SODIUM 100 MG CAPSULE (FP) PO SCH (21:26)
[2017-10-26] MEDS: TAMSULOSIN HCL 0.4 MG CAP.ER.24H (FP) PO SCH (21:27)
[2017-10-26] MEDS: INSULIN DETEMIR 100 UNITS/ML MDV SQ SCH (21:27)
[2017-10-26] MEDS: ATORVASTATIN CA 20 MG TABLET (FP) PO SCH (21:28)
[2017-10-26] MEDS: CLOPIDOGREL BISULFATE 75 MG TABLET (FP) PO SCH (21:28)
[2017-10-26] MEDS: LIDOCAINE PATCH REMOVAL MC SCH (21:31)
[2017-10-27] MEDS: HEPARIN NA (PORCINE) 5,000 UNITS/ML 1ML VIAL SQ SCH ×4 (06:16→21:43)
[2017-10-27] MEDS: INSULIN SLIDING SCALE (NOVOLOG) 1 VIAL SQ SCH ×4 (06:16→21:42)
[2017-10-27 11:08] LABS: HEMATOCRIT 24.9 % (35.4-49); HEMOGLOBIN 8.1 GM/dL (11.7-16.9); MCH 29.4 pg (25.7-33.7); MCHC 32.4 g/dl (32.0-35.9); MEAN CELL VOLUME 90.6 fl (80-96); MEAN PLT VOLUME 7.4 fl (7.5-11.1); PLATELET COUNT 144 K/MM3 (134-434); RBC 2.74 M/mm3 (4.00-5.60); RDW 20.7 % (11.9-15.9); WHITE BLOOD COUNT 4.4 K/mm3 (4.0-10.0)
[2017-10-27 11:27] LABS: ALBUMIN 2.6 g/dl (3.4-5.0); ANION GAP 14 (8-16); BILIRUBIN,TOTAL 0.6 mg/dL (0.2-1.0); BLOOD UREA NITROGEN 75 mg/dL (7-18); CALCIUM 7.6 mg/dL (8.5-10.1); CHLORIDE 106 mmol/L (98-107); CO2 23 mmol/L (21-32); CREATININE 3.9 mg/dL (0.7-1.3); GLUCOSE,RANDOM 229 mg/dL (74-106); POTASSIUM 3.7 mmol/L (3.5-5.1); SGOT/AST 16 U/L (15-37); SGPT/ALT 19 U/L (12-78); SODIUM 143 mmol/L (136-145); TOT PROT 6.2 g/dl (6.4-8.2)
[2017-10-27 11:28] LABS: ALK PHOS 104 U/L (45-117)
--- NOTE | 2017-10-27 11:54 | PN ---
Progress Note, Physician Chief Complaint: Pt no on HD and is in no distress Pt c/o right heel pain - Current Medication List Current Medications: Active Medications Atorvastatin Calcium (Lipitor -) 20 mg PO HS [facility] Last Admin: 10/26/17 21:28 Dose: 20 mg Carvedilol (Coreg -) 12.5 mg PO BID [facility] Last Admin: 10/26/17 21:27 Dose: 12.5 mg Cholecalciferol (Vitamin D3 -) 1,000 unit PO DAILY [facility] Last Admin: 10/26/17 12:50 Dose: 1,000 unit Citalopram Hydrobromide (Celexa -) 20 mg PO DAILY [facility] Last Admin: 10/26/17 12:48 Dose: 20 mg Clopidogrel Bisulfate (Plavix -) 75 mg PO HS [facility] Last Admin: 10/26/17 21:28 Dose: 75 mg Docusate Sodium (Colace -) 300 mg PO HS [facility] Last Admin: 10/26/17 21:26 Dose: 300 mg Epoetin Jose Francisco (Procrit -) 3,000 unit IVPUSH ONCE ONE Stop: 10/27/17 12:01 Ferrous Sulfate (Feosol -) 325 mg PO DAILY [facility] Last Admin: 10/26/17 12:48 Dose: 325 mg Furosemide (Lasix -) 40 mg PO DAILY [facility] Last Admin: 10/26/17 16:41 Dose: 40 mg Gabapentin (Neurontin -) 100 mg PO DAILY [facility] Last Admin: 10/26/17 12:48 Dose: 100 mg Heparin Sodium (Porcine) (Heparin -) 5,000 unit SQ TID [facility] Last Admin: 10/27/17 06:16 Dose: 5,000 unit Sodium Chloride (Normal Saline -) 250 mls @ 3,000 mls/hr IV PRN PRN PRN Reason: Hypotension during Dialysis Stop: 10/27/17 16:15 Insulin Aspart (Novolog Vial Sliding Scale -) 1 vial SQ ACHS [facility] PRN Reason: Protocol Last Admin: 10/27/17 06:16 Dose: Not Given Insulin Detemir (Levemir Vial) 15 units SQ HS [facility] Last Admin: 10/26/17 21:27 Dose: 15 unit Lidocaine (Lidoderm Patch -) 1 patch TP DAILY [facility] Last Admin: 10/26/17 12:48 Dose: 1 patch Miscellaneous (Lidoderm Patch Removal) 1 each MC DAILY@2200 [facility] Last Admin: 10/26/17 21:31 Dose: 1 each Nifedipine (Procardia Xl -) 60 mg PO DAILY [facility] Last Admin: 10/26/17 12:49 Dose: 60 mg Pantoprazole Sodium (Protonix -) 40 mg PO DAILY [facility] Last Admin: 10/26/17 12:49 Dose: 40 mg Polyethylene Glycol (Miralax (For Daily Use) -) 17 gm PO DAILY [facility] Last Admin: 10/26/17 12:51 Dose: 17 grams Tamsulosin HCl (Flomax -) 0.4 mg PO HS [facility] Last Admin: 10/26/17 21:27 Dose: 0.4 mg - Objective Vital Signs: Vital Signs Temperature 97.2 F L 10/27/17 10:00 Pulse Rate 56 L 10/27/17 10:20 Respiratory Rate 18 10/27/17 10:20 Blood Pressure 144/57 10/27/17 10:20 O2 Sat by Pulse Oximetry (%) 95 10/27/17 09:00 Constitutional: Yes: No Distress Cardiovascular: Yes: S1, S2 Respiratory: Yes: CTA Bilaterally Gastrointestinal: Yes: Soft. No: Tenderness, Rebound Edema: No Integumentary: Yes: Other (Right heel with skin breakdown) Labs: CBC, BMP 10/27/17 09:20 10/27/17 09:20 INR, PTT INR 1.50 (0.82-1.09) H 10/23/17 13:14 Laboratory Tests 10/25/17 13:35 Hepatitis A IgM Ab Negative Hep Bs Antigen Negative Hep B Core IgM Ab Negative Hep C Ab Diagnostic Pending Hepatitis C Antibody 0.1 Assessment/Plan Impression 1. ESRD 2. Anemia 3. HTN 4. Chol 5. DM 6. BPH 7. CAD 8. urinary retention 9. GI bleed 10. fluid overload Plan - HD and Epogen as ordered - 3 k bath - Out patient HD placement - Fistula not yet mature, vascular sx to evaluate - Right heel skin breakdown than will need localized care and consider podiatricevaluation Dr Lloyd
[2017-10-27] MEDS ORDERED: EPOETIN ALFA 3,000 UNIT/1 ML ML IVPUSH ONE (12:00)
[2017-10-27] MEDS: PANTOPRAZOLE 40 MG TABLET (FP) PO SCH (12:57)
[2017-10-27] MEDS: CARVEDILOL 12.5 MG TABLET (FP) PO SCH ×2 (12:57→21:41)
[2017-10-27] MEDS: FERROUS SO4 325 MG TABLET (FP) PO SCH (12:57)
[2017-10-27] MEDS: FUROSEMIDE 40 MG TABLET (FP) PO SCH (12:57)
[2017-10-27] MEDS: LIDOCAINE 5% TOPICAL PATCH TP SCH (12:57)
[2017-10-27] MEDS: CHOLECALCIFEROL (VITAMIN D3) 1,000 UNIT TABLET (FP) PO SCH (12:58)
[2017-10-27] MEDS: GABAPENTIN 100 MG CAPSULE (FP) PO SCH (12:58)
[2017-10-27] MEDS: CITALOPRAM HYDROBROMIDE 20 MG TABLET (FP) PO SCH (12:58)
[2017-10-27] MEDS: POLYETHYLENE GLYCOL 3350 119 GM BTL PO SCH (12:58)
[2017-10-27] MEDS: NIFEdipine E.R. 30 MG TABLET (FP) PO SCH (12:58)
--- NOTE | 2017-10-27 19:01 | PN ---
Physical Exam: SUBJECTIVE: Patient seen and examined. Complaining of pain to right heel. OBJECTIVE: Vital Signs Period Temp Pulse Resp BP Sys/Rodriguez Pulse Ox Last 24 Hr 97.2 F-98.8 F 54-65 16-20 134-158/49-73 95-95 GENERAL: Awake, alert, and fully oriented, in no acute distress. LUNGS: CTA HEART: Regular rate and rhythm, normal S1 and S2 without murmur, rub or gallop; permacath upper right chest ABDOMEN: Soft, nontender, not distended, normoactive bowel sounds, no guarding, no rebound, no masses. MUSCULOSKELETAL: Normal range of motion at all joints. No bony deformities or tenderness. No CVA tenderness. UPPER EXTREMITIES: 2+ pulses, warm, well-perfused. No cyanosis. No clubbing. No peripheral edema. LOWER EXTREMITIES: 2+ pulses, warm, well-perfused. 3+ edema, mildly improved NEUROLOGICAL: Cranial nerves II-XII intact. Normal speech. Laboratory Results - last 24 hr 10/26/17 10/27/17 10/27/17 21:25 06:11 09:20 WBC 4.4 RBC 2.74 L Hgb 8.1 L Hct 24.9 L MCV 90.6 MCH 29.4 MCHC 32.4 RDW 20.7 H Plt Count 144 MPV 7.4 L Sodium Potassium Chloride Carbon Dioxide Anion Gap BUN Creatinine Creat Clearance w eGFR POC Glucometer 249 64 Random Glucose Calcium Total Bilirubin AST ALT Alkaline Phosphatase Total Protein Albumin 10/27/17 10/27/17 10/27/17 09:20 12:49 17:22 WBC RBC Hgb Hct MCV MCH MCHC RDW Plt Count MPV Sodium 143 Potassium 3.7 Chloride 106 Carbon Dioxide 23 Anion Gap 14 BUN 75 H D Creatinine 3.9 H D Creat Clearance w eGFR 15.27 POC Glucometer 251 253 Random Glucose 229 H D Calcium 7.6 L Total Bilirubin 0.6 AST 16 D ALT 19 D Alkaline Phosphatase 104 Total Protein 6.2 L Albumin 2.6 L Active Medications Generic Name Dose Route Start Last Admin Trade Name Freq PRN Reason Stop Dose Admin Atorvastatin Calcium 20 mg 10/25/17 22:00 10/26/17 21:28 Lipitor - PO 20 mg HS [facility]IE Administration Carvedilol 12.5 mg 10/25/17 22:00 10/27/17 12:57 Coreg - PO 12.5 mg BID [facility] Administration Cholecalciferol 1,000 unit 10/26/17 10:00 10/27/17 12:58 Vitamin D3 - PO 1,000 unit DAILY [facility] Administration Citalopram Hydrobromide 20 mg 10/26/17 10:00 10/27/17 12:58 Celexa - PO 20 mg DAILY [facility] Administration Clopidogrel Bisulfate 75 mg 10/25/17 22:00 10/26/17 21:28 Plavix - PO 75 mg HS [facility] Administration Docusate Sodium 300 mg 10/25/17 22:00 10/26/17 21:26 Colace - PO 300 mg HS [facility] Administration Ferrous Sulfate 325 mg 10/26/17 10:00 10/27/17 12:57 Feosol - PO 325 mg DAILY [facility] Administration Furosemide 40 mg 10/26/17 10:00 10/27/17 12:57 Lasix - PO 40 mg DAILY [facility] Administration Gabapentin 100 mg 10/26/17 10:00 10/27/17 12:58 Neurontin - PO 100 mg DAILY [facility] Administration Heparin Sodium (Porcine) 5,000 unit 10/25/17 22:00 10/27/17 14:39 Heparin - SQ 5,000 unit TID [facility] Administration Insulin Aspart 1 vial 10/25/17 22:00 10/27/17 17:22 Novolog Vial Sliding Scale - SQ 6 unit ACHS [facility] Administration Protocol Insulin Detemir 15 units 10/25/17 22:00 10/26/17 21:27 Levemir Vial SQ 15 unit HS [facility] Administration Lidocaine 1 patch 10/26/17 10:00 10/27/17 12:57 Lidoderm Patch - TP 1 patch DAILY [facility] Administration Miscellaneous 1 each 10/25/17 22:00 10/26/17 21:31 Lidoderm Patch Removal MC 1 each DAILY@2200 [facility] Administration Nifedipine 60 mg 10/26/17 10:00 10/27/17 12:58 Procardia Xl - PO 60 mg DAILY [facility] Administration Pantoprazole Sodium 40 mg 10/26/17 10:00 10/27/17 12:57 Protonix - PO 40 mg DAILY [facility] Administration Polyethylene Glycol 17 gm 10/26/17 10:00 10/27/17 12:58 Miralax (For Daily Use) - PO 17 grams DAILY [facility] Administration Tamsulosin HCl 0.4 mg 10/25/17 22:00 03/23/18 21:27 Flomax - PO 0.4 mg HS [facility] Administration ASSESSMENT/PLAN: 72 year-old male with a PMH significant for HTN, CAD s/p IN s/p CABG, diastolic LV dysfunction, PAD s/p lower extremity bypass, IDDM, h/o GI bleed, neurogenic bladder, BPH, and ESRD not previously on HD. Admitted for initiation of HD. ESRD --second HD session today --nephrology following Neurogenic bladder BPH --continue Flomax Hypertension --continue carvedilol, nifedipine Coronary artery disease Peripheral arterial disease --continue carvedilol, Lipitor, Plavix Diastolic LV dysfunction --continue lasix PO 40mg daily IDDM --Levemir 15U qhs --Novolog sliding scale coverage Laceration to right heel --one cm laceration to right heel with surrounding erythema --xray ordered to r/o foreign body --podiatry consult FEN Fluids: PO intake adequate Electrolytes: replete as indicated Nutrition: low sodium, diabetic DVT prophylaxis: subq heparin, oob, ambulation Physical therapy Dispo: duron to discharge to SNF; needs confirmation of HD outpatient placement. Full code. Visit type - Emergency Visit Emergency Visit: Yes ED Registration Date: 10/23/17 Care time: The patient presented to the Emergency Department on the above date and was hospitalized for further evaluation of their emergent condition. - New Patient This patient is new to me today: No - Critical Care Critical Care patient: No
[2017-10-27] MEDS ORDERED: INSULIN (NOVOLOG) ASPART 100 UNITS/ML 10ML VIAL ONE (21:02)
[2017-10-27] MEDS ORDERED: PT OWN MED DRAWER 7, Y5N ONE (21:04)
[2017-10-27] MEDS: ATORVASTATIN CA 20 MG TABLET (FP) PO SCH (21:41)
[2017-10-27] MEDS: INSULIN DETEMIR 100 UNITS/ML MDV SQ SCH (21:41)
[2017-10-27] MEDS: DOCUSATE SODIUM 100 MG CAPSULE (FP) PO SCH (21:41)
[2017-10-27] MEDS: CLOPIDOGREL BISULFATE 75 MG TABLET (FP) PO SCH (21:41)
[2017-10-27] MEDS: TAMSULOSIN HCL 0.4 MG CAP.ER.24H (FP) PO SCH (21:41)
[2017-10-27] MEDS: LIDOCAINE PATCH REMOVAL MC SCH (21:44)
[2017-10-28] MEDS: HEPARIN NA (PORCINE) 5,000 UNITS/ML 1ML VIAL SQ SCH ×3 (06:15→22:14)
[2017-10-28] MEDS: INSULIN SLIDING SCALE (NOVOLOG) 1 VIAL SQ SCH ×4 (06:15→22:15)
--- NOTE | 2017-10-28 09:16 | CONSULT ---
Consult - text type - Consultation Consultation Note: Patient seen in bed vss. Alert and oriented. States he has a cut on right heel since long term after wearing tight shoes. Also complains of pain left lateral foot. Tmax 98.5F non palpable pulses b/l feet, +fissure right heel with localized cellulitis, - drainage, +tender lateral aspect left foot, -ecchymosis, reviewed xray right foot no related pathology noted, wbc=4.4, heel fissure right pvd b/l artharalgia left xray left foot. Heel pads b/l. Daily betadine dressing change to righjt heel. reviewed right foot xray. Will follow. Post op shoe to right foot.
--- NOTE | 2017-10-28 09:20 | PN ---
Physical Exam: SUBJECTIVE: Patient seen and examined. Voices no complaints. OBJECTIVE: Vital Signs Period Temp Pulse Resp BP Sys/Rodriguez Pulse Ox Last 24 Hr 97.2 F-98.8 F 54-65 16-20 134-158/52-82 96 GENERAL: Awake, alert, and fully oriented, in no acute distress. LUNGS: CTA HEART: Regular rate and rhythm, normal S1 and S2 without murmur, rub or gallop; permacath upper right chest ABDOMEN: Soft, nontender, not distended, normoactive bowel sounds, no guarding, no rebound, no masses. MUSCULOSKELETAL: Normal range of motion at all joints. No bony deformities or tenderness. No CVA tenderness. UPPER EXTREMITIES: 2+ pulses, warm, well-perfused. No cyanosis. No clubbing. No peripheral edema. LOWER EXTREMITIES: 2+ pulses, warm, well-perfused. 3+ edema NEUROLOGICAL: Cranial nerves II-XII intact. Normal speech. Laboratory Results - last 24 hr 10/27/17 10/27/17 10/27/17 09:20 09:20 12:49 WBC 4.4 RBC 2.74 L Hgb 8.1 L Hct 24.9 L MCV 90.6 MCH 29.4 MCHC 32.4 RDW 20.7 H Plt Count 144 MPV 7.4 L Sodium 143 Potassium 3.7 Chloride 106 Carbon Dioxide 23 Anion Gap 14 BUN 75 H D Creatinine 3.9 H D Creat Clearance w eGFR 15.27 POC Glucometer 251 Random Glucose 229 H D Calcium 7.6 L Total Bilirubin 0.6 AST 16 D ALT 19 D Alkaline Phosphatase 104 Total Protein 6.2 L Albumin 2.6 L 10/27/17 10/27/17 10/28/17 17:22 21:40 06:13 WBC RBC Hgb Hct MCV MCH MCHC RDW Plt Count MPV Sodium Potassium Chloride Carbon Dioxide Anion Gap BUN Creatinine Creat Clearance w eGFR POC Glucometer 253 232 107 Random Glucose Calcium Total Bilirubin AST ALT Alkaline Phosphatase Total Protein Albumin Active Medications Generic Name Dose Route Start Last Admin Trade Name Freq PRN Reason Stop Dose Admin Atorvastatin Calcium 20 mg 10/25/17 22:00 10/27/17 21:41 Lipitor - PO 20 mg HS ROSIE Administration Carvedilol 12.5 mg 10/25/17 22:00 10/27/17 21:41 Coreg - PO 12.5 mg BID [facility]IE Administration Cephalexin HCl 250 mg 10/28/17 12:00 Keflex - PO Q6HPO [facility] Cholecalciferol 1,000 unit 10/26/17 10:00 10/27/17 12:58 Vitamin D3 - PO 1,000 unit DAILY [facility] Administration Citalopram Hydrobromide 20 mg 10/26/17 10:00 10/27/17 12:58 Celexa - PO 20 mg DAILY [facility] Administration Clopidogrel Bisulfate 75 mg 10/25/17 22:00 10/27/17 21:41 Plavix - PO 75 mg HS [facility] Administration Docusate Sodium 300 mg 10/25/17 22:00 10/27/17 21:41 Colace - PO 300 mg HS [facility] Administration Ferrous Sulfate 325 mg 10/26/17 10:00 10/27/17 12:57 Feosol - PO 325 mg DAILY [facility] Administration Furosemide 40 mg 10/26/17 10:00 10/27/17 12:57 Lasix - PO 40 mg DAILY [facility] Administration Gabapentin 100 mg 10/26/17 10:00 10/27/17 12:58 Neurontin - PO 100 mg DAILY [facility] Administration Heparin Sodium (Porcine) 5,000 unit 10/25/17 22:00 10/28/17 06:15 Heparin - SQ 5,000 unit TID [facility] Administration Insulin Aspart 1 vial 10/25/17 22:00 10/28/17 06:15 Novolog Vial Sliding Scale - SQ Not Given ACHS [facility] Protocol Insulin Detemir 15 units 10/25/17 22:00 10/27/17 21:41 Levemir Vial SQ 15 unit HS [facility] Administration Lidocaine 1 patch 10/26/17 10:00 10/27/17 12:57 Lidoderm Patch - TP 1 patch DAILY [facility] Administration Miscellaneous 1 each 10/25/17 22:00 10/27/17 21:44 Lidoderm Patch Removal MC 1 each DAILY@2200 [facility] Administration Nifedipine 60 mg 10/26/17 10:00 10/27/17 12:58 Procardia Xl - PO 60 mg DAILY [facility] Administration Pantoprazole Sodium 40 mg 10/26/17 10:00 10/27/17 12:57 Protonix - PO 40 mg DAILY [facility] Administration Polyethylene Glycol 17 gm 10/26/17 10:00 10/27/17 12:58 Miralax (For Daily Use) - PO 17 grams DAILY [facility] Administration Tamsulosin HCl 0.4 mg 10/25/17 22:00 10/27/17 21:41 Flomax - PO 0.4 mg HS ROSIE Administration ASSESSMENT/PLAN 72 year-old male with a PMH significant for HTN, CAD s/p RI s/p CABG, diastolic LV dysfunction, PAD s/p lower extremity bypass, IDDM, h/o GI bleed, neurogenic bladder, BPH, and ESRD not previously on HD. Admitted for initiation of HD. ESRD --second HD session yesterday --arrangments being made for outpatient treatment and to be followed by Dr. Donovan Neurogenic bladder BPH --continue Flomax Hypertension --continue carvedilol, nifedipine Coronary artery disease Peripheral arterial disease --continue carvedilol, Lipitor, Plavix Diastolic LV dysfunction --continue lasix PO 40mg daily IDDM --Levemir 15U qhs --Novolog sliding scale coverage Laceration to right heel --one cm laceration to right heel with surrounding erythema --xray: no foreign body; no focal soft tissue injury --daily betadine FEN Fluids: PO intake adequate Electrolytes: replete as indicated Nutrition: low sodium, diabetic DVT prophylaxis: subq heparin, oob, ambulation Physical therapy Dispo: plan to discharge to SNF; needs confirmation of HD outpatient placement. Full code.
[2017-10-28] MEDS: GABAPENTIN 100 MG CAPSULE (FP) PO SCH (09:23)
[2017-10-28] MEDS: NIFEdipine E.R. 30 MG TABLET (FP) PO SCH (09:24)
[2017-10-28] MEDS: FUROSEMIDE 40 MG TABLET (FP) PO SCH (09:24)
[2017-10-28] MEDS: PANTOPRAZOLE 40 MG TABLET (FP) PO SCH (09:24)
[2017-10-28] MEDS: FERROUS SO4 325 MG TABLET (FP) PO SCH (09:24)
[2017-10-28] MEDS: LIDOCAINE 5% TOPICAL PATCH TP SCH (09:24)
[2017-10-28] MEDS: CHOLECALCIFEROL (VITAMIN D3) 1,000 UNIT TABLET (FP) PO SCH (09:24)
[2017-10-28] MEDS: CITALOPRAM HYDROBROMIDE 20 MG TABLET (FP) PO SCH (09:24)
[2017-10-28] MEDS: CARVEDILOL 12.5 MG TABLET (FP) PO SCH ×2 (09:24→22:16)
[2017-10-28] MEDS: POLYETHYLENE GLYCOL 3350 119 GM BTL PO SCH (09:34)
[2017-10-28] MEDS ORDERED: INSULIN (NOVOLOG) ASPART 100 UNITS/ML 10ML VIAL ONE (11:26)
[2017-10-28] MEDS ORDERED: PT OWN MED DRAWER 7, Y5N ONE ×3 (12:03→17:31)
[2017-10-28] MEDS: CEPHALEXIN MONOHYDRATE 250 MG CAPSULE (FP) PO SCH ×2 (12:48→17:32)
--- NOTE | 2017-10-28 14:23 | PN ---
Progress Note, Physician Chief Complaint: Pt seen by podiatry and foot now receiving local care and given an surgical shoe. As a result he has less pain of the right foot - Current Medication List Current Medications: Active Medications Atorvastatin Calcium (Lipitor -) 20 mg PO HS [facility] Last Admin: 10/27/17 21:41 Dose: 20 mg Carvedilol (Coreg -) 12.5 mg PO BID [facility] Last Admin: 10/28/17 09:24 Dose: 12.5 mg Cephalexin HCl (Keflex -) 250 mg PO Q6HPO [facility] Last Admin: 10/28/17 12:48 Dose: 250 mg Cholecalciferol (Vitamin D3 -) 1,000 unit PO DAILY [facility] Last Admin: 10/28/17 09:24 Dose: 1,000 unit Citalopram Hydrobromide (Celexa -) 20 mg PO DAILY [facility] Last Admin: 10/28/17 09:24 Dose: 20 mg Clopidogrel Bisulfate (Plavix -) 75 mg PO HS [facility] Last Admin: 10/27/17 21:41 Dose: 75 mg Docusate Sodium (Colace -) 300 mg PO [facility] Last Admin: 10/27/17 21:41 Dose: 300 mg Ferrous Sulfate (Feosol -) 325 mg PO DAILY [facility] Last Admin: 10/28/17 09:24 Dose: 325 mg Furosemide (Lasix -) 40 mg PO DAILY [facility] Last Admin: 10/28/17 09:24 Dose: 40 mg Gabapentin (Neurontin -) 100 mg PO DAILY [facility] Last Admin: 10/28/17 09:23 Dose: 100 mg Heparin Sodium (Porcine) (Heparin -) 5,000 unit SQ TID [facility] Last Admin: 10/28/17 13:13 Dose: 5,000 unit Insulin Aspart (Novolog Vial Sliding Scale -) 1 vial SQ [facility] PRN Reason: Protocol Last Admin: 10/28/17 12:01 Dose: 2 unit Insulin Detemir (Levemir Vial) 15 units SQ [facility] Last Admin: 10/27/17 21:41 Dose: 15 unit Lidocaine (Lidoderm Patch -) 1 patch TP DAILY [facility] Last Admin: 10/28/17 09:24 Dose: 1 patch Miscellaneous (Lidoderm Patch Removal) 1 each MC DAILY@2200 [facility] Last Admin: 10/27/17 21:44 Dose: 1 each Nifedipine (Procardia Xl -) 60 mg PO DAILY [facility] Last Admin: 10/28/17 09:24 Dose: 60 mg Pantoprazole Sodium (Protonix -) 40 mg PO DAILY [facility] Last Admin: 10/28/17 09:24 Dose: 40 mg Polyethylene Glycol (Miralax (For Daily Use) -) 17 gm PO DAILY [facility] Last Admin: 10/28/17 09:34 Dose: 17 grams Tamsulosin HCl (Flomax -) 0.4 mg PO HS [facility] Last Admin: 10/27/17 21:41 Dose: 0.4 mg - Objective Vital Signs: Vital Signs Temperature 98.5 F 10/28/17 08:38 Pulse Rate 57 L 10/28/17 08:38 Respiratory Rate 18 10/28/17 08:38 Blood Pressure 149/60 10/28/17 08:38 O2 Sat by Pulse Oximetry (%) 96 10/27/17 21:00 Constitutional: Yes: No Distress Cardiovascular: Yes: S1, S2 Respiratory: Yes: CTA Bilaterally Gastrointestinal: Yes: Soft. No: Tenderness, Rebound Extremities: Yes: Other (LUE AVF with thrill though poorly developed Right foot with dressing) Labs: CBC, BMP 10/27/17 09:20 10/27/17 09:20 INR, PTT INR 1.50 (0.82-1.09) H 10/23/17 13:14 Assessment/Plan Impression 1. ESRD 2. Anemia 3. HTN 4. Chol 5. DM 6. BPH 7. CAD 8. urinary retention 9. GI bleed 10. fluid overload improved 11.Right heel fissure with PAD Plan - Next HD 10/30 - To arrange for out patient HD placement - Fistula not yet mature, vascular sx to evaluate - Right heel skin breakdown tappreciate podiatric evaluation Dr Lloyd
--- NOTE | 2017-10-28 19:10 | DS ---
Physical Exam: SUBJECTIVE: Patient seen and examined. Voices no complaints. OBJECTIVE: Vital Signs Period Temp Pulse Resp BP Sys/Rodriguez Pulse Ox Last 24 Hr 97.9 F-98.5 F 57-60 16-20 133-158/56-82 95-96 PHYSICAL EXAM GENERAL: Awake, alert, and fully oriented, in no acute distress. LUNGS: CTA HEART: Regular rate and rhythm, normal S1 and S2 without murmur, rub or gallop; permacath upper right chest ABDOMEN: Soft, nontender, not distended, normoactive bowel sounds, no guarding, no rebound, no masses. MUSCULOSKELETAL: Normal range of motion at all joints. No bony deformities or tenderness. No CVA tenderness. UPPER EXTREMITIES: 2+ pulses, warm, well-perfused. No cyanosis. No clubbing. No peripheral edema. LOWER EXTREMITIES: 2+ pulses, warm, well-perfused. 3+ edema; small 1cm laceration with surrounding erythema right heel NEUROLOGICAL: Cranial nerves II-XII intact. Normal speech. LABS CBCD WBC 4.4 K/mm3 (4.0-10.0) 10/27/17 09:20 RBC 2.74 M/mm3 (4.00-5.60) L 10/27/17 09:20 Hgb 8.1 GM/dL (11.7-16.9) L 10/27/17 09:20 Hct 24.9 % (35.4-49) L 10/27/17 09:20 MCV 90.6 fl (80-96) 10/27/17 09:20 MCHC 32.4 g/dl (32.0-35.9) 10/27/17 09:20 RDW 20.7 % (11.9-15.9) H 10/27/17 09:20 Plt Count 144 K/MM3 (134-434) 10/27/17 09:20 MPV 7.4 fl (7.5-11.1) L 10/27/17 09:20 CMP Sodium 143 mmol/L (136-145) 10/27/17 09:20 Potassium 3.7 mmol/L (3.5-5.1) 10/27/17 09:20 Chloride 106 mmol/L (98-107) 10/27/17 09:20 Carbon Dioxide 23 mmol/L (21-32) 10/27/17 09:20 Anion Gap 14 (8-16) 10/27/17 09:20 BUN 75 mg/dL (7-18) H D 10/27/17 09:20 Creatinine 3.9 mg/dL (0.7-1.3) H D 10/27/17 09:20 Creat Clearance w eGFR 15.27 (>60) 10/27/17 09:20 Calcium 7.6 mg/dL (8.5-10.1) L 10/27/17 09:20 Total Bilirubin 0.6 mg/dL (0.2-1.0) 10/27/17 09:20 AST 16 U/L (15-37) D 10/27/17 09:20 ALT 19 U/L (12-78) D 10/27/17 09:20 Alkaline Phosphatase 104 U/L (45-117) 10/27/17 09:20 Total Protein 6.2 g/dl (6.4-8.2) L 10/27/17 09:20 Albumin 2.6 g/dl (3.4-5.0) L 10/27/17 09:20 HOSPITAL COURSE: Date of Admission:10/23/17 Date of Discharge: 10/28/17 Pre hospital course 72 year-old male with a PMH significant for HTN, CAD s/p stent, diastolic LV dysfunction, PAD s/p lower extremity bypass, IDDM, h/o GI bleed, neurogenic bladder, BPH, and ESRD not previously on HD. Patient was directed to the ED today by Dr. Donovan. He was transported from [facility]. Patient has been progressively SOB and with worsening lower extremity edema despite increased doses of diuretics. He had an AV fistula placed on 09/27/17, but it is not yet mature. Will need permacath placement and initiation of hemodialysis. ER course was notable for: (1) K 3.2 (2) K-dur 10meq x 1 Post hospital curse 72 year-old male with a PMH significant for HTN, CAD s/p [place] s/p CABG, diastolic LV dysfunction, PAD s/p lower extremity bypass, IDDM, h/o GI bleed, neurogenic bladder, BPH, and ESRD not previously on HD. Admitted for initiation of HD. ESRD --second HD session yesterday --arrangments being made for outpatient treatment and to be followed by Dr. Donovan Neurogenic bladder BPH --continue Flomax Hypertension --continue carvedilol, nifedipine Coronary artery disease Peripheral arterial disease --continue carvedilol, Lipitor, Plavix Diastolic LV dysfunction --continue lasix PO 40mg daily IDDM --Levemir 15U qhs --Novolog sliding scale coverage Laceration to right heel --one cm laceration to right heel with surrounding erythema --xray: no foreign body; no focal soft tissue injury --daily betadine Minutes to complete discharge: 35 Discharge Summary Reason For Visit: CHRONIC KIDNEY DISEASE; HYPERVOLEMIA - Instructions Referrals: Kalani Donovan MD [Staff Physician] - Disposition: CARE HOME FACILITY - Home Medications Comprehensive Discharge Medication List: Ambulatory Orders Cholecalciferol (Vitamin D3) [Vitamin D3] 1,000 unit PO DAILY tablet 09/02/12 Clopidogrel Bisulfate [Clopidogrel] 75 mg PO HS #90 tablet 01/10/16 Carvedilol 12.5 mg PO BID 06/11/17 Ferrous Sulfate [Feosol] 325 mg PO DAILY ud 07/12/17 Docusate Sodium [Colace -] 300 mg PO HS 07/14/17 Insulin Glargine,Hum.rec.anlog [Lantus Solostar PEN -] 15 units SQ HS 07/14/17 Lidocaine 5% Patch [Lidoderm -] 1 patch TP DAILY #7 patch 07/15/17 Insulin Sliding Scale [Novolog Vial Sliding Scale -] 1 vial SQ TIDAC PRN Simvastatin 40 mg PO HS 07/23/17 Pantoprazole Sodium [Protonix -] 40 mg PO DAILY #30 tablet.ec 07/25/17 Tamsulosin HCl [Flomax -] 0.4 mg PO HS cap.er.24h 07/25/17 Polyethylene Glycol 3350 [Miralax 119 gm Btl -] 17 gm PO DAILY 09/03/17 Nifedipine ER [Procardia XL -] 60 mg PO DAILY #30 tab.er.24 09/10/17 Furosemide [Lasix] 40 mg PO DAILY #30 tablet 09/27/17 This patient is new to me today: Yes Date on this admission: 10/28/17 Emergency Visit: No Critical Care patient: No - Discharge Referral Referred to [facility] Med [facility] No
[2017-10-28] MEDS: INSULIN DETEMIR 100 UNITS/ML MDV SQ SCH (22:14)
[2017-10-28] MEDS: DOCUSATE SODIUM 100 MG CAPSULE (FP) PO SCH (22:15)
[2017-10-28] MEDS: ATORVASTATIN CA 20 MG TABLET (FP) PO SCH (22:16)
[2017-10-28] MEDS: LIDOCAINE PATCH REMOVAL MC SCH (22:16)
[2017-10-28] MEDS: CLOPIDOGREL BISULFATE 75 MG TABLET (FP) PO SCH (22:16)
[2017-10-28] MEDS: TAMSULOSIN HCL 0.4 MG CAP.ER.24H (FP) PO SCH (22:16)
[2017-10-29] MEDS ORDERED: PT OWN MED DRAWER 7, Y5N ONE ×3 (00:24→12:16)
[2017-10-29] MEDS: CEPHALEXIN MONOHYDRATE 250 MG CAPSULE (FP) PO SCH ×4 (00:27→17:36)
[2017-10-29] MEDS: INSULIN SLIDING SCALE (NOVOLOG) 1 VIAL SQ SCH ×3 (05:59→17:35)
[2017-10-29] MEDS: HEPARIN NA (PORCINE) 5,000 UNITS/ML 1ML VIAL SQ SCH ×2 (06:00→15:33)
[2017-10-29] MEDS: PANTOPRAZOLE 40 MG TABLET (FP) PO SCH (09:04)
[2017-10-29] MEDS: FERROUS SO4 325 MG TABLET (FP) PO SCH (09:04)
[2017-10-29] MEDS: FUROSEMIDE 40 MG TABLET (FP) PO SCH (09:04)
[2017-10-29] MEDS: CHOLECALCIFEROL (VITAMIN D3) 1,000 UNIT TABLET (FP) PO SCH (09:04)
[2017-10-29] MEDS: CITALOPRAM HYDROBROMIDE 20 MG TABLET (FP) PO SCH (09:04)
[2017-10-29] MEDS: CARVEDILOL 12.5 MG TABLET (FP) PO SCH (09:05)
[2017-10-29] MEDS: NIFEdipine E.R. 30 MG TABLET (FP) PO SCH (09:05)
[2017-10-29] MEDS: POLYETHYLENE GLYCOL 3350 119 GM BTL PO SCH (09:05)
[2017-10-29] MEDS: LIDOCAINE 5% TOPICAL PATCH TP SCH (09:05)
[2017-10-29] MEDS: GABAPENTIN 100 MG CAPSULE (FP) PO SCH (09:05)
[2017-10-29] MEDS ORDERED: POVIDONE-IODINE 10% SOLN 118 ML BOTTLE TP SCH (10:00)
[2017-10-29] MEDS ORDERED: SODIUM CHLORIDE 250 ML IV PRN (11:00)
[2017-10-29] MEDS ORDERED: EPOETIN ALFA 10,000 UNIT/1 ML VIAL IVPUSH ONE (13:30)
[2017-10-29 14:03] LABS: HEMATOCRIT 25.7 % (35.4-49); HEMOGLOBIN 8.4 GM/dL (11.7-16.9); MCH 29.6 pg (25.7-33.7); MCHC 32.6 g/dl (32.0-35.9); MEAN CELL VOLUME 90.9 fl (80-96); MEAN PLT VOLUME 7.2 fl (7.5-11.1); PLATELET COUNT 158 K/MM3 (134-434); RBC 2.83 M/mm3 (4.00-5.60); RDW 19.8 % (11.9-15.9); WHITE BLOOD COUNT 5.4 K/mm3 (4.0-10.0)
--- NOTE | 2017-10-29 14:28 | PN ---
Progress Note, Physician History of Present Illness: Pt seen and examined at bedside. He is awake and alert. He is getting HD today as his next HD as outpt will be on Sun. - Current Medication List Current Medications: Active Medications Atorvastatin Calcium (Lipitor -) 20 mg PO HS [facility] Last Admin: 10/28/17 22:16 Dose: 20 mg Carvedilol (Coreg -) 12.5 mg PO BID [facility] Last Admin: 10/29/17 09:05 Dose: 12.5 mg Cephalexin HCl (Keflex -) 250 mg PO Q6HPO [facility] Last Admin: 10/29/17 12:23 Dose: 250 mg Cholecalciferol (Vitamin D3 -) 1,000 unit PO DAILY [facility] Last Admin: 10/29/17 09:04 Dose: 1,000 unit Citalopram Hydrobromide (Celexa -) 20 mg PO DAILY [facility] Last Admin: 10/29/17 09:04 Dose: 20 mg Clopidogrel Bisulfate (Plavix -) 75 mg PO HS [facility] Last Admin: 10/28/17 22:16 Dose: 75 mg Docusate Sodium (Colace -) 300 mg PO [facility] Last Admin: 10/28/17 22:15 Dose: 300 mg Ferrous Sulfate (Feosol -) 325 mg PO DAILY [facility] Last Admin: 10/29/17 09:04 Dose: 325 mg Furosemide (Lasix -) 40 mg PO DAILY [facility] Last Admin: 10/29/17 09:04 Dose: 40 mg Gabapentin (Neurontin -) 100 mg PO DAILY [facility] Last Admin: 10/29/17 09:05 Dose: 100 mg Heparin Sodium (Porcine) (Heparin -) 5,000 unit SQ TID [facility] Last Admin: 10/29/17 06:00 Dose: 5,000 unit Sodium Chloride (Normal Saline -) 250 mls @ 3,000 mls/hr IV PRN PRN PRN Reason: Hypotension during Dialysis Stop: 10/30/17 11:00 Insulin Aspart (Novolog Vial Sliding Scale -) 1 vial SQ ACHS [facility] PRN Reason: Protocol Last Admin: 10/29/17 11:47 Dose: Not Given Insulin Detemir (Levemir Vial) 15 units SQ HS [facility] Last Admin: 10/28/17 22:14 Dose: 15 unit Lidocaine (Lidoderm Patch -) 1 patch TP DAILY [facility] Last Admin: 10/29/17 09:05 Dose: 1 patch Miscellaneous (Lidoderm Patch Removal) 1 each MC DAILY@2200 [facility] Last Admin: 10/28/17 22:16 Dose: 1 each Nifedipine (Procardia Xl -) 60 mg PO DAILY [facility] Last Admin: 10/29/17 09:05 Dose: 60 mg Pantoprazole Sodium (Protonix -) 40 mg PO DAILY [facility] Last Admin: 10/29/17 09:04 Dose: 40 mg Polyethylene Glycol (Miralax (For Daily Use) -) 17 gm PO DAILY [facility] Last Admin: 10/29/17 09:05 Dose: 17 grams Povidone Iodine (Betadine 10% Solution -) 1 applic TP DAILY [facility] Last Admin: 10/29/17 10:55 Dose: 1 applic Tamsulosin HCl (Flomax -) 0.4 mg PO HS [facility] Last Admin: 10/28/17 22:16 Dose: 0.4 mg - Objective Vital Signs: Vital Signs Temperature 98.1 F 10/29/17 09:12 Pulse Rate 64 10/29/17 13:00 Respiratory Rate 18 10/29/17 13:00 Blood Pressure 147/52 10/29/17 13:00 O2 Sat by Pulse Oximetry (%) 94 L 10/29/17 09:00 Constitutional: Yes: Calm Eyes: Yes: Conjunctiva Clear HENT: Yes: Atraumatic Neck: Yes: Supple Cardiovascular: Yes: S1, S2 Respiratory: Yes: CTA Bilaterally Gastrointestinal: Yes: Soft Genitourinary: Yes: WNL Musculoskeletal: Yes: WNL Extremities: Yes: Other (fistula with thrill and bruit) Neurological: Yes: Oriented Psychiatric: Yes: Oriented Labs: CBC, BMP 10/29/17 13:30 INR, PTT INR 1.50 (0.82-1.09) H 10/23/17 13:14 Problem List - Problems (1) Fluid overload Code(s): E87.70 - FLUID OVERLOAD, UNSPECIFIED Qualifiers: Hypervolemia type: other Qualified Code(s): E87.79 - Other fluid overload (2) CKD (chronic kidney disease) Code(s): N18.9 - CHRONIC KIDNEY DISEASE, UNSPECIFIED Qualifiers: Chronic kidney disease stage: unspecified stage Qualified Code(s): N18.9 - Chronic kidney disease, unspecified (3) Diabetes Code(s): E11.9 - TYPE 2 DIABETES MELLITUS WITHOUT COMPLICATIONS Qualifiers: 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 type: type 2 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 longterm insulin use: unspecified exterminator helper insulin use status 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 complication status : with kidney complications 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 complication detail: with nephropathy Qualified Code(s): E11.21 - Type 2 diabetes mellitus with diabetic nephropathy Assessment/Plan Current Medications Generic Name Dose Route Start Last Admin Trade Name Freq PRN Reason Stop Dose Admin Atorvastatin Calcium 20 mg 10/25/17 22:00 10/28/17 22:16 Lipitor - PO 20 mg HS ROSIE Administration Carvedilol 12.5 mg 10/25/17 22:00 10/29/17 09:05 Coreg - PO 12.5 mg BID ROSIE Administration Cephalexin HCl 250 mg 10/28/17 12:00 10/29/17 12:23 Keflex - PO 250 mg Q6HPO ROSIE Administration Cholecalciferol 1,000 unit 10/26/17 10:00 10/29/17 09:04 Vitamin D3 - PO 1,000 unit DAILY ROSIE Administration Citalopram Hydrobromide 20 mg 10/26/17 10:00 10/29/17 09:04 Celexa - PO 20 mg DAILY ROSIE Administration Clopidogrel Bisulfate 75 mg 10/25/17 22:00 10/28/17 22:16 Plavix - PO 75 mg HS ROSIE Administration Docusate Sodium 300 mg 10/25/17 22:00 10/28/17 22:15 Colace - PO 300 mg HS ROSIE Administration Ferrous Sulfate 325 mg 10/26/17 10:00 10/29/17 09:04 Feosol - PO 325 mg DAILY ROSIE Administration Furosemide 40 mg 10/26/17 10:00 10/29/17 09:04 Lasix - PO 40 mg DAILY ROSIE Administration Gabapentin 100 mg 10/26/17 10:00 10/29/17 09:05 Neurontin - PO 100 mg DAILY ROSIE Administration Heparin Sodium (Porcine) 5,000 unit 10/25/17 22:00 10/29/17 06:00 Heparin - SQ 5,000 unit TID ROSIE Administration Sodium Chloride 250 mls @ 3,000 mls/hr 10/29/17 11:00 Normal Saline - IV 10/30/17 11:00 PRN PRN Hypotension during Dialysis Insulin Aspart 1 vial 10/25/17 22:00 10/29/17 11:47 Novolog Vial Sliding Scale - SQ Not Given ACHS ROSIE Protocol Insulin Detemir 15 units 10/25/17 22:00 10/28/17 22:14 Levemir Vial SQ 15 unit HS ROSIE Administration Lidocaine 1 patch 10/26/17 10:00 10/29/17 09:05 Lidoderm Patch - TP 1 patch DAILY ROSIE Administration Miscellaneous 1 each 10/25/17 22:00 10/28/17 22:16 Lidoderm Patch Removal MC 1 each DAILY@2200 ROSIE Administration Nifedipine 60 mg 10/26/17 10:00 10/29/17 09:05 Procardia Xl - PO 60 mg DAILY ROSIE Administration Pantoprazole Sodium 40 mg 10/26/17 10:00 10/29/17 09:04 Protonix - PO 40 mg DAILY ROSIE Administration Polyethylene Glycol 17 gm 10/26/17 10:00 10/29/17 09:05 Miralax (For Daily Use) - PO 17 grams DAILY ROSIE Administration Povidone Iodine 1 applic 10/29/17 10:00 10/29/17 10:55 Betadine 10% Solution - TP 1 applic DAILY ROSIE Administration Tamsulosin HCl 0.4 mg 10/25/17 22:00 10/28/17 22:16 Flomax - PO 0.4 mg HS ROSIE Administration Impression 1. ESRD 2. anemia 3. HTN 4. Chol 5. DM 6. BPH 7. CAD 8. urinary retention 9. GI bleed 10. fluid overload Plan - will arrange for HD today - next HD on Sun as outpt - epogen for anemia - 3 k bath - fistula not yet mature - will follow - discussed with nursing staff
[2017-10-29 14:34] LABS: ANION GAP 12 (8-16); BLOOD UREA NITROGEN 63 mg/dL (7-18); CALCIUM 7.9 mg/dL (8.5-10.1); CHLORIDE 101 mmol/L (98-107); CO2 25 mmol/L (21-32); CREATININE 3.7 mg/dL (0.7-1.3); GLUCOSE,RANDOM 134 mg/dL (74-106); POTASSIUM 3.9 mmol/L (3.5-5.1); SODIUM 138 mmol/L (136-145)
[2017-10-29 15:19] VITALS: TEMP 97.6
[2017-10-29] MEDS ORDERED: INSULIN (NOVOLOG) ASPART 100 UNITS/ML 10ML VIAL ONE (17:32)
[2017-10-29 18:02] VITALS: BP 144/77; PULSE 69
== END 2017-10-29 19:41 | DRG 291 ==
LOC: JER 11:25 → JERBED 13:36 → J5S 10-24 04:36
PROVIDERS: ADMIT Internal Medicine; ATTEND Registered Nurse
PROC: B513ZZA Fluoroscopy of Right Jugular Veins, Guidance (ICD-10-PCS; 2017-10-25)
PROC: 05HM33Z Insertion of Infusion Device into Right Internal Jugular Vein, Percutaneous Approach (ICD-10-PCS; principal; 2017-10-25 17:00)
PROC: 5A1D90Z Performance of Urinary Filtration, Continuous, Greater than 18 hours Per Day (ICD-10-PCS; 2017-10-29)
DX: I13.2 Hypertensive heart and chronic kidney disease with heart failure and with stage 5 chronic kidney disease, or end stage renal disease (principal); N18.6 End stage renal disease; I50.32 Chronic diastolic (congestive) heart failure; L03.115 Cellulitis of right lower limb; E11.22 Type 2 diabetes mellitus with diabetic chronic kidney disease; I25.10 Atherosclerotic heart disease of native coronary artery without angina pectoris; Z95.1 Presence of aortocoronary bypass graft; N31.9 Neuromuscular dysfunction of bladder, unspecified; N40.0 Benign prostatic hyperplasia without lower urinary tract symptoms; I73.9 Peripheral vascular disease, unspecified; E87.6 Hypokalemia; Z98.61 Coronary angioplasty status; D63.1 Anemia in chronic kidney disease; E87.70 Fluid overload, unspecified; Z79.4 Long term (current) use of insulin; R33.9 Retention of urine, unspecified; E78.5 Hyperlipidemia, unspecified
CPT/HCPCS: 36415; 71045-TC-FY; 73630-TC-LT; 73630-TC-RT-FY; 76000-TC-FY; 80048; 80053; 80074; 82962; 83735; 84100; 84484; 85025; 85027; 85610; 85730; 93005; 93010; 94760; 97116-GP; 97161-GP; 99285-25; J0885; J1644

== ENCOUNTER 2017-12-17 19:57 | Observation (INO) | payer OTHER, MEDICARE ==
--- NOTE | 2017-12-17 20:53 | PDOC ---
History of Present Illness - General History Source: Patient Exam Limitations: No Limitations <SaturninoLeila - Last Filed: 12/17/17 22:57> <Manish Warner - Last Filed: 12/18/17 01:06> - General Chief Complaint: Dialysis Shunt Problem Stated Complaint: SHUNT ISSUE Time Seen by Provider: 12/17/17 20:14 - History of Present Illness Initial Comments: 12/17/17 22:57 The patient is a 72 year old male, with a significant past medical history of HTN, CAD s/p 5 stent placements, diastolic LV dysfunction, PAD s/p lower extremity bypass, IDDM, h/o of GI bleed, neurogenic bladder, BPH, and ESRD (on HD) who presents to the emergency department with chest pain while receiving HD today. Patient reports gradual onset of R sided chest pain, radiating into shoulder and neck upon receiving HD. After removing the needle, the pain improved gradually. Patient reports occasional pains in the past during dialysis however was not as persistent today. Patient and family denies any exertional chest pain, SOB, palpitations, nausea or vomiting however presents to the ED for further evaluation. Note, patient was previously admitted on 10/23/17 for worsening renal disease and HD. Patient denies diaphoresis, headache or dizziness. Patient denies fever, chills, abdominal pain, nausea, vomit, diarrhea or constipation. Patient denies dysuria, frequency, urgency or hematuria. Patient denies sick contacts or recent travel. Allergies: tramadol, ocycodone, ticagrelor Past surgical history: Left inguinal hernia repair,CABG s/p 2 stents,laminectomy ,Right hip replacement Social history:denies etoh, smoking, recreational drug use PCP: Dr. Del Valle Neph: Dr. Donovan (Leila Matamoros) Past History <Leila Matamoros - Last Filed: 12/17/17 22:57> - Past Medical History Anemia: Yes (taking iron) Asthma: No Cancer: No Cardiac Disorders: Yes (CAD, CABG, stents) CVA: No COPD: No CHF: No DVT: No Dementia: No Diabetes: Yes GI Disorders: Yes (GERD, G-I bleed) Disorders: No HTN: Yes Hypercholesterolemia: Yes Liver Disease: No Psychiatric Problems: Yes Seizures: No Thyroid Disease: No - Surgical History Abdominal Surgery: Yes (Left Inguinal Hernia Repair) Appendectomy: No Cardiac Surgery: Yes (Bypass Surgery 18 yrs ago, Followed by Stents placement x2 ) Cholecystectomy: No Lung Surgery: No Neurologic Surgery: No Orthopedic Surgery: Yes (Laminectomy) - Immunization History Immunization Up to Date: Yes - Suicide/Smoking/Psychosocial Hx Smoking History: Never smoked Have you smoked in the past 12 months: No If you are a former smoker, when did you quit?: 30YRS Information on smoking cessation initiated: No 'Breaking Loose' booklet given: 10/23/17 Hx Alcohol Use: No Drug/Substance Use Hx: No Substance Use Type: None Hx Substance Use Treatment: No <Manish Warner - Last Filed: 12/18/17 01:06> - Past Medical History Allergies/Adverse Reactions: Allergies Allergy/AdvReac Type Severity Reaction Status Date / Time acetaminophen [From Percocet] Allergy Mild Hives Verified 12/18/17 01:00 oxycodone [From Percocet] Allergy Mild Hives Verified 12/18/17 01:00 Home Medications: Ambulatory Orders Cholecalciferol (Vitamin D3) [Vitamin D3] 1,000 unit PO HS tablet 09/02/12 Clopidogrel Bisulfate [Clopidogrel] 75 mg PO HS #90 tablet 01/10/16 Carvedilol 12.5 mg PO BID 06/11/17 Insulin Glargine,Hum.rec.anlog [Lantus Solostar PEN -] 15 units SQ HS 07/14/17 Simvastatin 40 mg PO HS 07/23/17 Tamsulosin HCl [Flomax -] 0.4 mg PO HS cap.er.24h 07/25/17 Famotidine [Pepcid -] 40 mg PO DAILY 12/18/17 Nifedipine ER [Procardia XL -] 60 mg PO HS 12/18/17 Cardiac Specific PMH - Complaint Specific PMHX Pacemaker: No <Manish Warner - Last Filed: 12/18/17 01:06> Review of Systems - Review of Systems Able to Perform ROS?: Yes <Leila Matamoros - Last Filed: 12/17/17 22:57> <Manish Warner - Last Filed: 12/18/17 01:06> - Review of Systems Comments:: 12/17/17 22:57 CONSTITUTIONAL: No reported: Fever, Chills, Diaphoresis, Generalized Weakness, Malaise, Loss of Appetite HEENT: No reported: Rhinorrhea, Nasal Congestion, Throat Pain, Throat Swelling, Difficulty Swallowing, Mouth Swelling, Ear Pain, Eye Pain, Visual Changes CARDIOVASCULAR: +chest pain. No reported: Chest Pain, Syncope, Palpitations, Irregular Heart Rate, Lightheadedness, Peripheral Edema RESPIRATORY: No reported: Cough, Shortness of Breath, SOB with Exertion, Orthopnea, Wheezing , Stridor, Hemoptysis GASTROINTESTINAL: No reported: Abdominal pain, Abdominal Distension, Nausea, Vomiting, Diarrhea, Constipation, Melena, Hematochezia GENITOURINARY: No reported: Dysuria, Frequency, Urgency, Hesitancy, Flank Pain, Genital Pain MUSCULOSKELETAL: No reported: Myalgia, Arthralgia, Joint Swelling, Back pain, Neck Pain SKIN: No reported: Rash, Itching, Pallor HEMATOLOGIC/IMMUNOLOGIC: No reported: Easy Bleeding, Easy Bruising, Lymphadenopathy, Frequent infections ENDOCRINE: No reported: Unexplained Weight Gain, Unexplained Weight Loss, Heat Intolerance , Cold Intolerance NEUROLOGIC: No reported: Headache, Focal Weakness, Paresthesias, Vertigo, Lightheadedness, Unsteady Gait, Seizure, Mental Status Changes, Incontinence PSYCHIATRIC: No reported: Anxiety, Depression (Leila Matamoros) *Physical Exam <Leila Matamoros - Last Filed: 12/17/17 22:57> <Manish Warner - Last Filed: 12/18/17 01:06> - Vital Signs Last Vital Signs Temp Pulse Resp BP Pulse Ox 98.4 F 61 18 154/60 100 12/17/17 20:31 12/17/17 20:31 12/17/17 20:31 12/17/17 20:31 12/17/17 20:31 - Physical Exam Comments: 12/17/17 22:57 GENERAL: The patient is awake, alert, and fully oriented, Nontoxic - in no acute distress. HEAD: Normocephalic, atraumatic. EYES: extraocular movements intact, sclera anicteric, conjunctiva clear. ENT: Normal voice, Moist mucous membranes. NECK: Normal range of motion, supple LUNGS: Breath sounds equal, clear to auscultation bilaterally. No wheezes, no rhonchi, no rales. HEART: Regular rate and rhythm, normal S1 and S2 without murmur, rub or gallop. ABDOMEN: Soft, nontender No guarding, no rebound. . No CVA tenderness EXTREMITIES: Fistula in the LUE with thrill NEUROLOGICAL: No facial assymetry, Normal speech, PSYCH: Normal mood, normal affect. SKIN: Warm, Dry, normal turgor, (Leila Matamoros) Heart Score/ECG Review <Leila Matamoros - Last Filed: 12/17/17 22:57> <Manish Warner - Last Filed: 12/18/17 01:06> - ECG Impressions Comment:: 12/18/17 00:30 Twelve-lead EKG was performed and reviewed by me. There is normal sinus rhythm with a rate of 59 LVH with repolarization abnormality QTc interval of 493 (Manish Warner) ED Treatment Course - LABORATORY CBC & Chemistry Diagram: 12/17/17 20:56 12/17/17 20:56 <Leila Matamoros - Last Filed: 12/17/17 22:57> - LABORATORY CBC & Chemistry Diagram: 12/17/17 20:56 12/17/17 20:56 <Manish Warner - Last Filed: 12/18/17 01:06> - ADDITIONAL ORDERS Additional order review: Laboratory Results 12/17/17 12/17/17 12/17/17 21:40 21:01 20:56 PT with INR 13.70 H INR 1.21 H Sodium Potassium Chloride Carbon Dioxide Anion Gap BUN Creatinine Creat Clearance w eGFR Random Glucose Calcium Total Bilirubin AST ALT Alkaline Phosphatase Creatine Kinase 65 Troponin I 0.36 H D Total Protein Albumin Blood Type B POSITIVE Antibody Screen Negative 12/17/17 20:56 PT with INR INR Sodium 133 L Potassium 4.1 Chloride 97 L Carbon Dioxide 27 Anion Gap 9 BUN 57 H Creatinine 4.2 H Creat Clearance w eGFR 14.02 Random Glucose 211 H D Calcium 8.1 L Total Bilirubin 0.4 D AST 14 L ALT 19 Alkaline Phosphatase 126 H D Creatine Kinase Troponin I Total Protein 7.8 D Albumin 3.5 D Blood Type Antibody Screen 12/17/17 20:56 RBC 3.96 L D MCV 90.2 MCHC 33.4 RDW 17.7 H D MPV 6.5 L Neutrophils % 75.8 Lymphocytes % 11.5 Monocytes % 10.8 H Eosinophils % 1.3 Basophils % 0.6 - RADIOLOGY Radiology Studies Ordered: Category Date Time Status CHEST X-RAY PORTABLE* [RAD] Stat Radiology 12/18/17 00:19 Taken Medical Decision Making <Leial Matamoros - Last Filed: 12/17/17 22:57> <Manish Warner - Last Filed: 12/18/17 01:06> - Medical Decision Making 12/17/17 20:54 72y M hx of CKD (dialysis MWF, last dialysis today) IDDM, HTN, CAD sp PCI/CABG, PAD s/p bypass, CHF presents with complaint of LUE pain radiating to the chest and neck that started during dialysis, lasting a few hrs (pain started approx 2- 3pm and resolved after they removed needle). Pt endorses similar episode in the past but never this persistent, no associated sob, nv, diaphoresis, vision changes, abd pain, back pain, exertional sob. ddx includes msk, referred pain, consider acs, but highly atypical apolinar ck trops, ekg, labs will reassess A portion of this note was documented by scribe services under my direction. I have reviewed the details of the note, within reason, and agree with the documentation with the following case summary and management plan written by me 12/18/17 01:05 trop slightly eelvated will keep pt for obs tele ekg noted for LVH with strain case dw dr. sandoval agreed with obs tele Patient reassessed currently not in any discomfort or pain. Case discussed in detail with admitting physician including history, physical exam and ancillary studies. Admitting physician has assumed care for the patient, will follow all pending diagnostics and will complete the evaluation and treatment. (Manish Warner) *DC/Admit/Observation/Transfer <Leila Matamoros - Last Filed: 12/17/17 22:57> - Discharge Dispostion Decision to Admit order: Yes <Manish Warner - Last Filed: 12/18/17 01:06> Diagnosis at time of Disposition: ESRD (end stage renal disease) Chest pain Qualifiers: Chest pain type: unspecified Qualified Code(s): R07.9 - Chest pain, unspecified - Discharge Dispostion Condition at time of disposition: Stable Decision to Admit order Date/Time: Decision to Admit Order Category Date Time Status Decision to Admit to Hospital Routine Admission 12/18/17 01:04 Ordered - Referrals Referrals: Bernardo Del Valle MD [Primary Care Provider] - - Attestations Scribe Attestion: 12/17/17 22:57 Documentation prepared by Leila Matamoros, acting as emergency medicine medical director for Manish Warner MD (Leila Matamoros)
[2017-12-17] MEDS ORDERED: ACETAMINOPHEN 325 MG TABLET (FP) PO ONE (20:54)
[2017-12-17 21:09] LABS: BASO % 0.6 % (0-2.0); EOS % 1.3 % (0-4.5); HEMATOCRIT 35.7 % (35.4-49); LYMPH % 11.5 % (8-40); MCH 30.2 pg (25.7-33.7); MCHC 33.4 g/dl (32.0-35.9); MEAN CELL VOLUME 90.2 fl (80-96); MEAN PLT VOLUME 6.5 fl (7.5-11.1); MONO % 10.8 % (3.8-10.2); NEUT % 75.8 % (42.8-82.8); PLATELET COUNT 223 K/MM3 (134-434); RBC 3.96 M/mm3 (4.00-5.60); RDW 17.7 % (11.9-15.9); WHITE BLOOD COUNT 5.9 K/mm3 (4.0-10.0)
[2017-12-17 21:22] LABS: INR 1.21 (0.82-1.09); PROTHROMBIN TIME (PATIENT) 13.7 SEC (9.7-13.0)
[2017-12-17 21:35] LABS: ALBUMIN 3.5 g/dl (3.4-5.0); ANION GAP 9 (8-16); BILIRUBIN,TOTAL 0.4 mg/dL (0.2-1.0); BLOOD UREA NITROGEN 57 mg/dL (7-18); CALCIUM 8.1 mg/dL (8.5-10.1); CHLORIDE 97 mmol/L (98-107); CO2 27 mmol/L (21-32); CREATININE 4.2 mg/dL (0.7-1.3); GLUCOSE,RANDOM 211 mg/dL (74-106); POTASSIUM 4.1 mmol/L (3.5-5.1); SGOT/AST 14 U/L (15-37); SGPT/ALT 19 U/L (12-78); SODIUM 133 mmol/L (136-145); TOT PROT 7.8 g/dl (6.4-8.2)
[2017-12-17 21:36] LABS: ALK PHOS 126 U/L (45-117)
[2017-12-18] MEDS ORDERED: ASPIRIN 81 MG CHEWABLE TABLETS PO ONE (01:03)
--- NOTE | 2017-12-18 01:36 | HP ---
CHIEF COMPLAINT: fistula/chest pain PCP: Dr. Del Valle Tuck Pointer Helper: Dr. Leslie, seen by Dr. Donovan when inpatient. HISTORY OF PRESENT ILLNESS: 72 yr old man with HTN, CAD s/p stents, CABG, ESRD on dialysis BIBEMS from dialysis due to extreme pain in left arm starting at the fistula site radiating to his neck and chest. The pain started with the insertion of the dialysis needles into the fistula which recently started being used, the patient's permacath was recently removed by Dr. Mcneil) and continued during dialysis, went up to his neck and chest. the pain was continuous until the needles were removed and then the pain subsided. a.w dizziness. ER course was notable for: (1) (2) (3) PAST MEDICAL HISTORY: HTN CAD s/p stents, CABG(20yrs ago) ESRD on dialysis DM PAST SURGICAL HISTORY: CABG left arm fistula Social History: Smoking: never Alcohol: denies Drugs: denies Family History: [place] Allergies acetaminophen [From Percocet] Allergy (Mild, Verified 12/18/17 01:00) Hives oxycodone [From Percocet] Allergy (Mild, Verified 12/18/17 01:00) Hives HOME MEDICATIONS: Home Medications Medication Instructions Recorded Cholecalciferol (Vitamin D3) 1,000 unit PO HS tablet 09/02/12 [Vitamin D3] Clopidogrel Bisulfate [Clopidogrel] 75 mg PO HS #90 tablet 01/10/16 Carvedilol 12.5 mg PO BID 06/11/17 Insulin Glargine,Hum.rec.anlog 15 units SQ HS 07/14/17 [Lantus Solostar PEN -] Simvastatin 40 mg PO HS 07/23/17 Tamsulosin HCl [Flomax -] 0.4 mg PO HS cap.er.24h 07/25/17 Famotidine [Pepcid -] 40 mg PO DAILY 12/18/17 Nifedipine ER [Procardia XL -] 60 mg PO HS 12/18/17 REVIEW OF SYSTEMS CONSTITUTIONAL: Absent: fever, chills, diaphoresis, generalized weakness, malaise, loss of appetite, weight change CARDIOVASCULAR: Present: chest pain, Absent: syncope, palpitations, irregular heart rate, lightheadedness, peripheral edema RESPIRATORY: Absent: cough, shortness of breath, dyspnea with exertion, GASTROINTESTINAL: Absent: abdominal pain, abdominal distension, nausea, vomiting, diarrhea, constipation, MUSCULOSKELETAL: Absent: myalgia, arthralgia, joint swelling, back pain, neck pain SKIN: Absent: rash, itching, pallor HEMATOLOGIC/IMMUNOLOGIC: Absent: easy bleeding, easy bruising, lymphadenopathy, frequent infections NEUROLOGIC: Present: dizziness, Absent: headache, focal weakness or paresthesias, unsteady gait, seizure, PHYSICAL EXAMINATION Vital Signs - 24 hr 12/17/17 20:31 Temperature 98.4 F Pulse Rate 61 Respiratory 18 Rate Blood Pressure 154/60 O2 Sat by Pulse 100 Oximetry (%) GENERAL: Awake, alert, in no acute distress. HEAD: Normal with no signs of trauma. EYES: Pupils equal, round and reactive to light, extraocular movements intact, sclera anicteric, conjunctiva clear. No lid lag. EARS, NOSE, THROAT: Moist mucous membranes. NECK: Normal range of motion, supple without lymphadenopathy, JVD, or masses. CHEST: permacath site with scab at incision site, no surrounding erythema, drainage, tenderness. well healed sternum scar LUNGS: Breath sounds equal, clear to auscultation bilaterally. No wheezes, and no crackles. No accessory muscle use. HEART: Regular rate and rhythm, normal S1 and S2 without murmur, rub or gallop. ABDOMEN: Soft, nontender, not distended, normoactive bowel sounds, no guarding, no rebound, no masses. No hepatomegaly or splenomegaly. MUSCULOSKELETAL: Normal range of motion at all joints. No bony deformities or tenderness. UPPER EXTREMITIES: 2+ pulses, warm, well-perfused. No cyanosis. No clubbing. No peripheral edema.left arm with fistula LOWER EXTREMITIES: warm, well-perfused. No calf tenderness. No peripheral edema. dry ulcer on right heel without signs of infection NEUROLOGICAL: Cranial nerves II-XII intact. Normal speech. PSYCHIATRIC: Cooperative. Good eye contact. Appropriate mood and affect. SKIN: Warm, dry, normal turgor, no rashes noted, normal capillary refill. Laboratory Results - last 24 hr 12/17/17 12/17/17 12/17/17 20:56 20:56 20:56 WBC 5.9 RBC 3.96 L D Hgb 12.0 D Hct 35.7 D MCV 90.2 MCH 30.2 MCHC 33.4 RDW 17.7 H D Plt Count 223 D MPV 6.5 L Neutrophils % 75.8 Lymphocytes % 11.5 Monocytes % 10.8 H Eosinophils % 1.3 Basophils % 0.6 PT with INR 13.70 H INR 1.21 H Sodium 133 L Potassium 4.1 Chloride 97 L Carbon Dioxide 27 Anion Gap 9 BUN 57 H Creatinine 4.2 H Creat Clearance w eGFR 14.02 Random Glucose 211 H D Calcium 8.1 L Total Bilirubin 0.4 D AST 14 L ALT 19 Alkaline Phosphatase 126 H D Creatine Kinase Troponin I Total Protein 7.8 D Albumin 3.5 D Blood Type Antibody Screen 12/17/17 12/17/17 21:01 21:40 WBC RBC Hgb Hct MCV MCH MCHC RDW Plt Count MPV Neutrophils % Lymphocytes % Monocytes % Eosinophils % Basophils % PT with INR INR Sodium Potassium Chloride Carbon Dioxide Anion Gap BUN Creatinine Creat Clearance w eGFR Random Glucose Calcium Total Bilirubin AST ALT Alkaline Phosphatase Creatine Kinase 65 Troponin I 0.36 H D Total Protein Albumin Blood Type B POSITIVE Antibody Screen Negative Active Medications Acetaminophen (Tylenol -) 650 mg PO ONCE ONE Stop: 12/17/17 20:55 Last Admin: 12/17/17 21:40 Dose: 650 mg Carvedilol (Coreg -) 12.5 mg PO BID [facility] Cholecalciferol (Vitamin D3 -) 1,000 unit PO HS [facility] Citalopram Hydrobromide (Celexa -) 20 mg PO DAILY [facility] Clopidogrel Bisulfate (Plavix -) 75 mg PO HS [facility] Gabapentin (Neurontin -) 100 mg PO DAILY [facility] Nifedipine (Procardia Xl -) 60 mg PO HS [facility] Non-Formulary Medication (Famotidine [Pepcid -]) 40 mg PO DAILY [facility] Tamsulosin HCl (Flomax -) 0.4 mg PO HS [facility] ASSESSMENT/PLAN: 72 yr old man with extensive cardiac history on dialysis presents with left arm pain radiating to his chest placed on Tele-observation to r.o ACS. #Chest pain, r/o ACS, heart score 6 - trend trops, repeat ekg, echo(last echo 07/2017) in the morning - continuous cardiac monitoring - consult dr. dotson #DM- uncontrolled, last A1c 9.9 in 2014, f/u with PCP for further management - NISS, BGM ACHS #HTN - continue home medications: - coreg 12.5mg po BID - procadia XL 60mg po HS #CAD - Plavix 75mg po HS - simvastatin #DM neuropathy - continue gabapentin #ESRD on HD - consult Dr. Donovan if pt stays until Sunday since he may need dialysis inpatient #continue home meds: flomax and pepcid #diet: diabetic/low sodium/low fat/renal Visit type - Emergency Visit Emergency Visit: Yes ED Registration Date: 12/18/17 Care time: The patient presented to the Emergency Department on the above date and was hospitalized for further evaluation of their emergent condition. - New Patient This patient is new to me today: Yes Date on this admission: 12/18/17 - Critical Care Critical Care patient: No Hospitalist Screening - Colonoscopy Questionnaire Colonoscopy Questionnaire: Colonoscopy Questionnaire - Patient: 50 - 75 years old and never had a screening colonoscopy: Unknown History of colon or rectal polyps, or CA: Unknown History of IBD, Crohn's disease or UC: Unknown History of abdominal radiation therapy as a child: Unknown - Relative: 1 with colon or rectal CA, or polyps at age 60 or younger: Unknown Colon or rectal CA diagnosed at age 45 or younger: Unknown Multiple relatives with colon or rectal CA: Unknown - Outcome: Screening Result: Negative Screen
[2017-12-18] MEDS ORDERED: ASPIRIN 81 MG CHEWABLE TABLETS ONE (01:44)
--- NOTE | 2017-12-18 01:48 | PN ---
Teaching Attending Note Name of Resident: Pam Quiñonez ATTENDING PHYSICIAN STATEMENT I saw and evaluated the patient. I reviewed the resident's note and discussed the case with the resident. I agree with the resident's findings and plan as documented. SUBJECTIVE: 72 M with hx. of HTN, CAD s/p CABG (20 years ago), Diastolic LV dysfxn, PAD s/p LE bypass, IDDM, GIB, Neurogenic bladder, BPH, ESRD on HD (M, W, F), who presents with left arm and chest pain when his AV. fistula was accessed earlier today. Denies any current chest pain, pressure. Pain went away whem HD needle was removed. No nausea, vomiting, or diarrea. No shortness of breath. No fevers or chills. OBJECTIVE: Physical: VS: Vital Signs Period Temp Pulse Resp BP Sys/Rodriguez Pulse Ox Last 24 Hr 98.4 F 61 18 154/60 100 GEN: NAD, Resting in bed, AA0X3 HEENT: NCAT, PERRL, Throat without erythema or exudates CARD: RRR S1, S2 RESP: CTAB ABD: Bsx4, NTD to palpation EXT: -C/C/E CBCD WBC 5.9 K/mm3 (4.0-10.0) 12/17/17 20:56 RBC 3.96 M/mm3 (4.00-5.60) L D 12/17/17 20:56 Hgb 12.0 GM/dL (11.7-16.9) D 12/17/17 20:56 Hct 35.7 % (35.4-49) D 12/17/17 20:56 MCV 90.2 fl (80-96) 12/17/17 20:56 MCHC 33.4 g/dl (32.0-35.9) 12/17/17 20:56 RDW 17.7 % (11.9-15.9) H D 12/17/17 20:56 Plt Count 223 K/MM3 (134-434) D 12/17/17 20:56 MPV 6.5 fl (7.5-11.1) L 12/17/17 20:56 CMP Sodium 133 mmol/L (136-145) L 12/17/17 20:56 Potassium 4.1 mmol/L (3.5-5.1) 12/17/17 20:56 Chloride 97 mmol/L (98-107) L 12/17/17 20:56 Carbon Dioxide 27 mmol/L (21-32) 12/17/17 20:56 Anion Gap 9 (8-16) 12/17/17 20:56 BUN 57 mg/dL (7-18) H 12/17/17 20:56 Creatinine 4.2 mg/dL (0.7-1.3) H 12/17/17 20:56 Creat Clearance w eGFR 14.02 (>60) 12/17/17 20:56 Random Glucose 211 mg/dL (74-106) H D 12/17/17 20:56 Calcium 8.1 mg/dL (8.5-10.1) L 12/17/17 20:56 Total Bilirubin 0.4 mg/dL (0.2-1.0) D 12/17/17 20:56 AST 14 U/L (15-37) L 12/17/17 20:56 ALT 19 U/L (12-78) 12/17/17 20:56 Alkaline Phosphatase 126 U/L (45-117) H D 12/17/17 20:56 Total Protein 7.8 g/dl (6.4-8.2) D 12/17/17 20:56 Albumin 3.5 g/dl (3.4-5.0) D 12/17/17 20:56 CARDIAC ENZYMES Creatine Kinase 65 IU/L (39-308) 12/17/17 21:01 Troponin I 0.36 ng/ml (0.00-0.05) H D 12/17/17 21:01 EK12/18/17 00:30 Twelve-lead EKG was performed and reviewed by me. There is normal sinus rhythm with a rate of 59 LVH with repolarization abnormality QTc interval of 493 CXR: NO acute process Ambulatory Orders Cholecalciferol (Vitamin D3) [Vitamin D3] 1,000 unit PO HS tablet 09/02/12 Clopidogrel Bisulfate [Clopidogrel] 75 mg PO HS #90 tablet 01/10/16 Carvedilol 12.5 mg PO BID 06/11/17 Insulin Glargine,Hum.rec.anlog [Lantus Solostar PEN -] 15 units SQ HS 07/14/17 Simvastatin 40 mg PO HS 07/23/17 Tamsulosin HCl [Flomax -] 0.4 mg PO HS cap.er.24h 07/25/17 Famotidine [Pepcid -] 40 mg PO DAILY 12/18/17 Nifedipine ER [Procardia XL -] 60 mg PO HS 12/18/17 ASSESSMENT AND PLAN: 72 M with hx. of HTN, CAD s/p CABG (20 years ago), Diastolic LV dysfxn, PAD s/p LE bypass, IDDM, GIB, Neurogenic bladder, BPH, ESRD on HD (M, W, F), who presents with left arm and chest pain 1.) Atypical Chest Pain/Troponin Elevation - HEART 6 - Troponin Elevation downtrend since October - Trend Trop/EKG - ASA caused gastritis in pt. prior, Plavix, Coreg - LUZMARIA/ARB as per Cardio - Cardio Consult 2.) CAD s/P CABG - C/W home meds - Coreg, statin - Plavix 3.) HTN - C/W Nifedipine, Coreg 4.) ESRD- HD M/W/F - S/P HD (12/17) 5.) BPH - C/W Flomax 6.) Dvt Ppx - SCDS Place in Obs-Tele
[2017-12-18 04:36] VITALS: BMI 22.6
[2017-12-18] MEDS: INSULIN SLIDING SCALE (NOVOLOG) 1 VIAL SQ SCH ×4 (06:20→21:12)
[2017-12-18] MEDS: RANITIDINE HCL 150 MG TABLET (FP) PO SCH (09:27)
[2017-12-18] MEDS: CITALOPRAM HYDROBROMIDE 20 MG TABLET (FP) PO SCH (09:27)
[2017-12-18] MEDS: CARVEDILOL 12.5 MG TABLET (FP) PO SCH ×2 (09:28→21:08)
[2017-12-18] MEDS: GABAPENTIN 100 MG CAPSULE (FP) PO SCH (09:28)
[2017-12-18] MEDS ORDERED: HEPARIN NA (PORCINE) 5,000 UNITS/ML 1ML VIAL SQ SCH (10:00)
--- NOTE | 2017-12-18 10:35 | CON.CARD ---
Consult Consult Specialty:: Cardiology Referred by:: Hospitalist Reason for Consultation:: Cardiac evaluation - History of Present Illness Chief Complaint: Chest pain History of Present Illness: Patient is a 72 year old male known to our service (patient of Dr. Ángel Murguia (braid folder) with [facility]) with underlying history of CAD, s/ p SC, CABG, PCI/stent, angina pectoris, hypertension, hypercholesterolemia, DM ( insulin requiring), PAD post LE bypass, anemia, CKD and neurogenic bladder who presents from HD unit after dialysis with shoulder pain and chest pressure. Blood work revealed elevation of troponin to 0.36. Patient was reported at the AV fistula site on left arm and improved after the needle was taken out. He reports occasional pains at the site during dialysis in the past but not as persistent as yesterday. Currently, he denies chest pain, shortness of breath or palpitations. He denies paroxysmal nocturnal dyspnea or orthopnea. He denies fever or chills. He denies nausea, vomiting, diarrhea or abdominal pain. He denies headache or lightheadedness. He had not seen Dr. Murguia for over 6 months. - History Source History Provided By: Patient, Medical Record Limitations to Obtaining History: Clinical Condition - Past Medical History Cardio/Vascular: Yes: CAD, CHF, HTN, Hyperlipdemia, SC Gastrointestinal: Yes: Constipation, GI Bleed Renal/: Yes: Renal Inusuff, Neurogenic Bladder Endocrine: Yes: Diabetes Mellitus - Past Surgical History Past Surgical History: Yes: AV Fistula/Graft, Bypass (Lower extremity), CABG, Hernia Repair, Laminectomy, Stent (PCI) - Alcohol/Substance Use Hx Alcohol Use: No History of Substance Use: reports: None - Smoking History Smoking history: Former smoker Have you smoked in the past 12 months: No If you are a former smoker, when did you quit?: 30YRS - Social History Usual Living Arrangement: Alf ADL: Support Services History of Recent Travel: No Home Medications - Allergies Allergies/Adverse Reactions: Allergies Allergy/AdvReac Type Severity Reaction Status Date / Time acetaminophen [From Percocet] Allergy Mild Hives Verified 12/18/17 01:00 oxycodone [From Percocet] Allergy Mild Hives Verified 12/18/17 01:00 - Home Medications Home Medications: Ambulatory Orders Cholecalciferol (Vitamin D3) [Vitamin D3] 1,000 unit PO HS tablet 09/02/12 Clopidogrel Bisulfate [Clopidogrel] 75 mg PO HS #90 tablet 01/10/16 Carvedilol 12.5 mg PO BID 06/11/17 Insulin Glargine,Hum.rec.anlog [Lantus Solostar PEN -] 15 units SQ HS 07/14/17 Simvastatin 40 mg PO HS 07/23/17 Tamsulosin HCl [Flomax -] 0.4 mg PO HS cap.er.24h 07/25/17 Famotidine [Pepcid -] 40 mg PO DAILY 12/18/17 Nifedipine ER [Procardia XL -] 60 mg PO HS 12/18/17 Family Disease History - Family Disease History Family Disease History: CA: Mother, Sister Review of Systems - Review of Systems Constitutional: denies: Chills, Fever Cardiovascular: reports: Chest Pain. denies: Palpitations, Shortness of Breath Respiratory: denies: Cough, Hemoptysis, Orthopnea, PND, SOB, SOB on Exertion, Wheezing Gastrointestinal: denies: Abdominal Pain, Constipation, Diarrhea, Melena, Nausea , Rectal Bleeding, Vomiting Genitourinary: denies: Dysuria, Hematuria Neurological: denies: Dizziness, Headache, Seizure, Syncope Vital Signs: Vital Signs Temperature 97.5 F L 12/18/17 05:37 Pulse Rate 59 L 12/18/17 05:37 Respiratory Rate 18 12/18/17 05:37 Blood Pressure 129/55 12/18/17 05:37 O2 Sat by Pulse Oximetry (%) 99 12/18/17 04:00 HENT: Yes: Atraumatic Neck: Yes: Supple Respiratory: Yes: CTA Bilaterally Gastrointestinal: Yes: Normal Bowel Sounds, Soft. No: Tenderness Cardiovascular: Yes: Regular Rate and Rhythm JVD: No PMI: Non-Displaced Heart Sounds: Yes: S1, S2 Murmur: Yes: Systolic Murmur, Grade 1 Edema: No - Other Data Labs, Other Data: CBC, BMP 12/17/17 20:56 12/17/17 20:56 INR, PTT INR 1.21 (0.82-1.09) H 12/17/17 20:56 Troponin, BNP 12/17/17 12/18/17 21:01 04:00 Troponin I 0.36 H D 0.36 H Laboratory Results - last 24 hr 12/17/17 12/17/17 12/17/17 20:56 20:56 20:56 WBC 5.9 RBC 3.96 L D Hgb 12.0 D Hct 35.7 D MCV 90.2 MCH 30.2 MCHC 33.4 RDW 17.7 H D Plt Count 223 D MPV 6.5 L Neutrophils % 75.8 Lymphocytes % 11.5 Monocytes % 10.8 H Eosinophils % 1.3 Basophils % 0.6 PT with INR 13.70 H INR 1.21 H Sodium 133 L Potassium 4.1 Chloride 97 L Carbon Dioxide 27 Anion Gap 9 BUN 57 H Creatinine 4.2 H Creat Clearance w eGFR 14.02 POC Glucometer Random Glucose 211 H D Calcium 8.1 L Total Bilirubin 0.4 D AST 14 L ALT 19 Alkaline Phosphatase 126 H D Creatine Kinase Troponin I Total Protein 7.8 D Albumin 3.5 D Blood Type Antibody Screen 12/17/17 12/17/17 12/18/17 21:01 21:40 04:00 WBC RBC Hgb Hct MCV MCH MCHC RDW Plt Count MPV Neutrophils % Lymphocytes % Monocytes % Eosinophils % Basophils % PT with INR INR Sodium Potassium Chloride Carbon Dioxide Anion Gap BUN Creatinine Creat Clearance w eGFR POC Glucometer Random Glucose Calcium Total Bilirubin AST ALT Alkaline Phosphatase Creatine Kinase 65 51 Troponin I 0.36 H D 0.36 H Total Protein Albumin Blood Type B POSITIVE Antibody Screen Negative Sinus bradycardia with ST-T abnormality in anterior, lateral and inferior leads Imaging - Results Chest X-ray: Report Reviewed (Improved) EKG: Report Reviewed Problem List - Problems (1) Chest pain Code(s): R07.9 - CHEST PAIN, UNSPECIFIED Qualifiers: Chest pain type: unspecified Qualified Code(s): R07.9 - Chest pain, unspecified (2) ESRD (end stage renal disease) Code(s): N18.6 - END STAGE RENAL DISEASE (3) Troponin level elevated Code(s): R74.8 - ABNORMAL LEVELS OF OTHER SERUM ENZYMES (4) CAD (coronary artery disease) Code(s): I25.10 - ATHSCL HEART DISEASE OF [place] CORONARY ARTERY W/O ANG PCTRS Qualifiers: Coronary Disease-Associated Artery/Lesion type: [place] artery [place] vs. 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 treater helper insulin use: unspecified termite treater helper insulin use status 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 complication status : with kidney complications 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 complication detail: with nephropathy Qualified Code(s): E11.21 - Type 2 diabetes mellitus with diabetic nephropathy (6) Diastolic dysfunction Code(s): I51.9 - HEART DISEASE, UNSPECIFIED (7) HTN (hypertension) Code(s): I10 - ESSENTIAL (PRIMARY) HYPERTENSION Qualifiers: Hypertension type: essential hypertension Qualified Code(s): I10 - Essential (primary) hypertension (8) Hx of CABG Code(s): Z95.1 - PRESENCE OF AORTOCORONARY BYPASS GRAFT (9) Hypercholesterolemia Code(s): E78.00 - PURE HYPERCHOLESTEROLEMIA, UNSPECIFIED (10) PAD (peripheral artery disease) Code(s): I73.9 - PERIPHERAL VASCULAR DISEASE, UNSPECIFIED (11) Neurogenic bladder Code(s): N31.9 - NEUROMUSCULAR DYSFUNCTION OF [place], UNSPECIFIED (12) Demand ischemia Code(s): I24.8 - OTHER FORMS OF ACUTE ISCHEMIC HEART DISEASE (13) Acute on chronic diastolic heart failure Code(s): I50.33 - ACUTE ON CHRONIC DIASTOLIC (CONGESTIVE) HEART FAILURE Assessment/Plan 1. Chest pain with elevation of troponin suggests NSTEMI vs. demand ischemia 2. Underlying CAD post CABG, PCI/stent, angina pectoris 3. Hypertension/HCVD 4. Hypercholesterolemia 5. 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 (Insulin requiring) 6. PAD post LE bypass 7. Diastolic LV dysfunction with class 0 NYHA classification LV failure 8. ESRD on HD 9. Anemia 10. History of urinary retention and BPH PLAN: 1. Trend troponin 2. Optimize medical therapy for now, but may consider further evaluation including pharmacologic nuclear myocardial perfusion imaging at some point vs. catheterization if clinically indicated especially if troponins rise. 3. Continue Carvedilol and Procardia XL 4. Continue Plavix 5. Continue Atorvastatin 6. Transthoracic echocardiography to assess LV/RV and valvular function 7. Monitor renal function and electrolytes. 8. Vascular surgery had seen him last week in the clinic and permacath removed and AV fistular appeared to be functioning normal, but will need to recheck. Further plans are to follow Magno Hernandez MD
--- NOTE | 2017-12-18 11:54 | EKG ---
Test Reason : Blood Pressure : / mmHG Vent. Rate : 059 BPM Atrial Rate : 059 BPM P-R Int : 206 ms QRS Dur : 102 ms QT Int : 498 ms P-R-T Axes : 064 -09 115 degrees QTc Int : 493 ms SINUS BRADYCARDIA LEFT VENTRICULAR HYPERTROPHY WITH REPOLARIZATION ABNORMALITY PROLONGED QT ABNORMAL ECG Confirmed by MD AMY, INDER ([id number]) on 12/18/2017 11:53:34 AM Referred By: Confirmed By:INDER REYES MD
--- NOTE | 2017-12-18 14:21 | DS ---
Physical Exam: SUBJECTIVE: Patient seen and examined at bedside. Pt feels well at this time. Symptoms have resolved. OBJECTIVE: Vital Signs Period Temp Pulse Resp BP Sys/Rodriguez Pulse Ox Last 24 Hr 97.5 F-98.4 F 56-66 17-19 124-154/50-60 98-100 PHYSICAL EXAM GENERAL: The patient is awake, alert, and fully oriented, in no acute distress. HEAD: Normal with no signs of trauma. EYES: sclera anicteric, conjunctiva clear. ENT: oropharynx clear without exudates, moist mucous membranes. NECK: Trachea midline, full range of motion, supple. LUNGS: Breath sounds equal, clear to auscultation bilaterally, no wheezes, no crackles, no accessory muscle use. HEART: Regular rate and rhythm, S1, S2 without murmur, rub or gallop. ABDOMEN: Soft, nontender, nondistended, normoactive bowel sounds, no guarding, no rebound, no hepatosplenomegaly, no masses. EXTREMITIES: 1+ pulses in L radial and b/l DP. 2+ at R radial. L arm fistula with thrill. NEUROLOGICAL: Cranial nerves II through XII grossly intact. Normal speech, gait not observed. PSYCH: Normal mood, normal affect. SKIN: Warm, dry, normal turgor, no rashes or lesions noted. LABS Laboratory Results - last 24 hr 12/17/17 12/17/17 12/17/17 20:56 20:56 20:56 WBC 5.9 RBC 3.96 L D Hgb 12.0 D Hct 35.7 D MCV 90.2 MCH 30.2 MCHC 33.4 RDW 17.7 H D Plt Count 223 D MPV 6.5 L Neutrophils % 75.8 Lymphocytes % 11.5 Monocytes % 10.8 H Eosinophils % 1.3 Basophils % 0.6 PT with INR 13.70 H INR 1.21 H Sodium 133 L Potassium 4.1 Chloride 97 L Carbon Dioxide 27 Anion Gap 9 BUN 57 H Creatinine 4.2 H Creat Clearance w eGFR 14.02 POC Glucometer Random Glucose 211 H D Calcium 8.1 L Total Bilirubin 0.4 D AST 14 L ALT 19 Alkaline Phosphatase 126 H D Creatine Kinase Troponin I Total Protein 7.8 D Albumin 3.5 D Blood Type Antibody Screen 05/14/18 05/14/18 05/15/18 21:01 21:40 04:00 WBC RBC Hgb Hct MCV MCH MCHC RDW Plt Count MPV Neutrophils % Lymphocytes % Monocytes % Eosinophils % Basophils % PT with INR INR Sodium Potassium Chloride Carbon Dioxide Anion Gap BUN Creatinine Creat Clearance w eGFR POC Glucometer Random Glucose Calcium Total Bilirubin AST ALT Alkaline Phosphatase Creatine Kinase 65 51 Troponin I 0.36 H D 0.36 H Total Protein Albumin Blood Type B POSITIVE Antibody Screen Negative 12/18/17 12/18/17 05:58 11:58 WBC RBC Hgb Hct MCV MCH MCHC RDW Plt Count MPV Neutrophils % Lymphocytes % Monocytes % Eosinophils % Basophils % PT with INR INR Sodium Potassium Chloride Carbon Dioxide Anion Gap BUN Creatinine Creat Clearance w eGFR POC Glucometer 207 142 Random Glucose Calcium Total Bilirubin AST ALT Alkaline Phosphatase Creatine Kinase Troponin I Total Protein Albumin Blood Type Antibody Screen HOSPITAL COURSE: Date of Admission:12/18/17 Date of Discharge: 12/18/17 Pt is a 72 y/o M with extensive cardiac history on dialysis presents with left arm pain radiating to his chest who was placed on Tele-observation to r.o ACS. Pt had 2 troponins of 0.36 likely due to his renal disease. His symptoms resolved. Pt was seen by his sole skiver who felt Pt was also seen by cardiology who recommended medical management with Carvedilol, Procardia, Plavix, Atorvastatin Pt had an echo done, which revealed Minutes to complete discharge: 30 Discharge Summary Reason For Visit: ESRD CHEST PAIN Current Active Problems Chest pain (Acute) ESRD (end stage renal disease) (Chronic) Condition: Good - Instructions Diet, Activity, Other Instructions: You need to follow up with your primary care doctor within 1 week. You need to update your medications. You need to follow up with your sole skiver within 1 week or at your next dialysis session. You are being discharged with the following: Citalopram 20mg daily Insulin Glargine 15 units at night Simvastatin 40 mg at night Coreg 12.5 mg twice daily Vitamin D3 1,000 units at night Plavix 75 mg at night Gabapentin 100 mg daily Procardia 60 mg at night Zantac 300 mg daily Flomax 0.4 mg at night Please take all your medications as directed. Make sure you speak with your primary care doctor about your medications. Referrals: Bernardo Del Valle MD [Primary Care Provider] - 1 Week Kalani Donovan MD [Staff Physician] - 1 Week Disposition: HOME - Home Medications Comprehensive Discharge Medication List: Ambulatory Orders Insulin Glargine,Hum.rec.anlog [Lantus Solostar PEN -] 15 units SQ HS 07/14/17 Simvastatin 40 mg PO HS 07/23/17 Carvedilol [Coreg -] 12.5 mg PO BID #60 tablet 12/18/17 Cholecalciferol (Vitamin D3) [Vitamin D3 -] 1,000 unit PO HS #30 tab 12/18/17 Clopidogrel Bisulfate [Plavix -] 75 mg PO HS #30 tablet 12/18/17 Gabapentin [Neurontin -] 100 mg PO DAILY #30 capsule 12/18/17 Nifedipine ER [Procardia XL -] 60 mg PO HS #30 tab.er.24 12/18/17 Ranitidine [Zantac -] 300 mg PO DAILY #30 tablet 12/18/17 Tamsulosin HCl [Flomax -] 0.4 mg PO HS #30 cap.er.24h 12/18/17
--- NOTE | 2017-12-18 14:30 | PN ---
Teaching Attending Note Name of Resident: Emilio Jones ATTENDING PHYSICIAN STATEMENT I saw and evaluated the patient. I reviewed the resident's note and discussed the case with the resident. I agree with the resident's findings and plan as documented. SUBJECTIVE:no repeat episodes of CP. denies CP, SOB, fever, chills, N/V/C/D OBJECTIVE: Last Vital Signs Temp Pulse Resp BP Pulse Ox 98 F 66 18 124/50 98 12/18/17 09:00 12/18/17 09:00 12/18/17 09:00 12/18/17 09:00 12/18/17 09:00 General NAD CV S1 S2 RRR +mumur Lungs CTA B/l no wheezing/rales/rhonchi Extremities B/L UE cool. +palpable thrill LUE. LUE weak pulse RUE 1+ ASSESSMENT AND PLAN: 72 M with hx. of HTN, CAD s/p CABG (20 years ago), Diastolic LV dysfxn, PAD s/p LE bypass, IDDM, GIB, Neurogenic bladder, BPH, ESRD on HD (M, W, F), who presents with left arm and chest pain 1. Atypical CP- elevated troponin 0.36 x2. which is lower than troponin in 2017. (0.74). will likely always have a low troponin due to ESRD. echo ordered. will f/u, if no change from echo 5 months ago can f/u wtih cardio as outpatient.
--- NOTE | 2017-12-18 14:48 | CONSULT ---
Consult Consult Specialty:: Nephrology Reason for Consultation:: ESRD - History of Present Illness Chief Complaint: sent in for chest pain History of Present Illness: Pt is a 72 year old male with pmhx of ESRD who I sent in from HD yesterday. He was complaining of chest discomfort at the end of his treatment. He also had pain in his left arm and radiating to his left neck. He denied shortness of breath. His pain is resolved today. He denies palpitations. He denies fevers or chills. - History Source History Provided By: Patient - Past Medical History Cardio/Vascular: Yes: CAD, CHF, HTN, Hyperlipdemia, [place] Gastrointestinal: Yes: Constipation, GI Bleed Renal/: Yes: Renal Inusuff, Hemodialysis, Neurogenic Bladder Endocrine: Yes: Diabetes Mellitus - Past Surgical History Past Surgical History: Yes: AV Fistula/Graft, Bypass (Lower extremity), CABG, Hernia Repair, Laminectomy, Stent (PCI) - Alcohol/Substance Use Hx Alcohol Use: No History of Substance Use: reports: None - Smoking History Smoking history: Former smoker Have you smoked in the past 12 months: No If you are a former smoker, when did you quit?: 30YRS - Social History Usual Living Arrangement: [facility] ADL: Support Services History of Recent Travel: No Home Medications - Allergies Allergies/Adverse Reactions: Allergies Allergy/AdvReac Type Severity Reaction Status Date / Time acetaminophen [From Percocet] Allergy Mild Hives Verified 12/18/17 01:00 oxycodone [From Percocet] Allergy Mild Hives Verified 12/18/17 01:00 - Home Medications Home Medications: Ambulatory Orders Insulin Glargine,Hum.rec.anlog [Lantus Solostar PEN -] 15 units SQ HS 07/14/17 Simvastatin 40 mg PO HS 07/23/17 Carvedilol [Coreg -] 12.5 mg PO BID #60 tablet 12/18/17 Cholecalciferol (Vitamin D3) [Vitamin D3 -] 1,000 unit PO HS #30 tab 12/18/17 Clopidogrel Bisulfate [Plavix -] 75 mg PO HS #30 tablet 12/18/17 Gabapentin [Neurontin -] 100 mg PO DAILY #30 capsule 12/18/17 Nifedipine ER [Procardia XL -] 60 mg PO HS #30 tab.er.24 12/18/17 Ranitidine [Zantac -] 300 mg PO DAILY #30 tablet 12/18/17 Tamsulosin HCl [Flomax -] 0.4 mg PO HS #30 cap.er.24h 12/18/17 Family Disease History - Family Disease History Family Disease History: CA: Mother, Sister Review of Systems - Review of Systems Constitutional: reports: No Symptoms Eyes: reports: No Symptoms HENT: reports: No Symptoms Neck: reports: No Symptoms Cardiovascular: reports: Chest Pain. denies: Palpitations Respiratory: reports: No Symptoms Gastrointestinal: reports: No Symptoms Genitourinary: reports: No Symptoms Musculoskeletal: reports: No Symptoms Integumentary: reports: No Symptoms Neurological: reports: No Symptoms Endocrine: reports: No Symptoms Hematology/Lymphatic: reports: No Symptoms Psychiatric: reports: No Symptoms Physical Exam Vital Signs: Vital Signs Temperature 98 F 12/18/17 09:00 Pulse Rate 66 12/18/17 09:00 Respiratory Rate 18 12/18/17 09:00 Blood Pressure 124/50 12/18/17 09:00 O2 Sat by Pulse Oximetry (%) 98 12/18/17 09:00 Constitutional: Yes: Calm Eyes: Yes: Conjunctiva Clear HENT: Yes: Atraumatic Cardiovascular: Yes: S1, S2 Respiratory: Yes: CTA Bilaterally Gastrointestinal: Yes: Soft Renal/: Yes: WNL Musculoskeletal: Yes: Other (fistula with thrill and bruit) Edema: No Neurological: Yes: Oriented Psychiatric: Yes: Oriented Labs: CBC, BMP 12/17/17 20:56 12/17/17 20:56 Laboratory Tests 12/17/17 12/17/17 20:56 20:56 WBC 5.9 Hgb 12.0 D Plt Count 223 D Sodium 133 L Potassium 4.1 BUN 57 H Creatinine 4.2 H Imaging - Results Chest X-ray: Report Reviewed Problem List - Problems (1) Chest pain Code(s): R07.9 - CHEST PAIN, UNSPECIFIED Qualifiers: Chest pain type: unspecified Qualified Code(s): R07.9 - Chest pain, unspecified (2) ESRD (end stage renal disease) Code(s): N18.6 - END STAGE RENAL DISEASE Assessment/Plan Current Medications Generic Name Dose Route Start Last Admin Trade Name Freq PRN Reason Stop Dose Admin Atorvastatin Calcium 20 mg 12/18/17 22:00 Lipitor - PO HS ROSIE Carvedilol 12.5 mg 12/18/17 10:00 12/18/17 09:28 Coreg - PO 12.5 mg BID [facility] Administration Cholecalciferol 1,000 unit 12/18/17 22:00 Vitamin D3 - PO HS [facility] Citalopram Hydrobromide 20 mg 12/18/17 10:00 12/18/17 09:27 Celexa - PO 20 mg DAILY [facility]IE Administration Clopidogrel Bisulfate 75 mg 12/18/17 22:00 Plavix - PO HS [facility] Gabapentin 100 mg 12/18/17 10:00 12/18/17 09:28 Neurontin - PO 100 mg DAILY [facility] Administration Insulin Aspart 1 vial 12/18/17 07:00 12/18/17 11:59 Novolog Vial Sliding Scale - SQ Not Given ACHS [facility] Protocol Nifedipine 60 mg 12/18/17 22:00 Procardia Xl - PO HS [facility] Ranitidine HCl 300 mg 12/18/17 10:00 12/18/17 09:27 Zantac - PO 300 mg DAILY [facility] Administration Tamsulosin HCl 0.4 mg 12/18/17 22:00 Flomax - PO HS [facility] Impression 1. ESRD 2. anemia 3. HTN 4. Chol 5. DM 6. BPH 7. CAD 8. chest pain Plan - cardio eval for chest pain - HD tomorrow set up as outpt if discharged, will dialyze here if he isnt - fistula with thrill and bruit - discussed with primary team
[2017-12-18] MEDS ORDERED: INSULIN (NOVOLOG) ASPART 100 UNITS/ML 10ML VIAL ONE (17:15)
[2017-12-18] MEDS ORDERED: ATORVASTATIN CA 20 MG TABLET (FP) PO SCH (22:00)
[2017-12-18] MEDS ORDERED: NIFEdipine E.R 60 MG TABLET (UD) PO SCH (22:00)
[2017-12-18] MEDS ORDERED: TAMSULOSIN HCL 0.4 MG CAP.ER.24H (FP) PO SCH (22:00)
[2017-12-18] MEDS ORDERED: CHOLECALCIFEROL (VITAMIN D3) 1,000 UNIT TABLET (FP) PO SCH (22:00)
[2017-12-18] MEDS ORDERED: CLOPIDOGREL BISULFATE 75 MG TABLET (FP) PO SCH (22:00)
[2017-12-19] MEDS: INSULIN SLIDING SCALE (NOVOLOG) 1 VIAL SQ SCH ×3 (06:32→17:00)
[2017-12-19 07:01] LABS: BASO % 0.8 % (0-2.0); EOS % 1.7 % (0-4.5); HEMOGLOBIN 12.3 GM/dL (11.7-16.9); LYMPH % 14.4 % (8-40); MCH 31.2 pg (25.7-33.7); MEAN CELL VOLUME 91.6 fl (80-96); MEAN PLT VOLUME 6.9 fl (7.5-11.1); MONO % 13.5 % (3.8-10.2); NEUT % 69.6 % (42.8-82.8); PLATELET COUNT 176 K/MM3 (134-434); RBC 3.93 M/mm3 (4.00-5.60); WHITE BLOOD COUNT 6.5 K/mm3 (4.0-10.0)
[2017-12-19 07:17] LABS: ALBUMIN 3.3 g/dl (3.4-5.0); ANION GAP 12 (8-16); BILIRUBIN,TOTAL 0.4 mg/dL (0.2-1.0); BLOOD UREA NITROGEN 82 mg/dL (7-18); CALCIUM 8.1 mg/dL (8.5-10.1); CHLORIDE 100 mmol/L (98-107); CO2 24 mmol/L (21-32); CREATININE 6.1 mg/dL (0.7-1.3); GLUCOSE,RANDOM 153 mg/dL (74-106); POTASSIUM 4.4 mmol/L (3.5-5.1); SGOT/AST 14 U/L (15-37); SODIUM 136 mmol/L (136-145); TOT PROT 7.1 g/dl (6.4-8.2)
[2017-12-19 07:22] LABS: ALK PHOS 102 U/L (45-117); SGPT/ALT 15 U/L (12-78)
[2017-12-19] MEDS ORDERED: PT OWN MED DRAWER 7, Y5N ONE (09:56)
[2017-12-19] MEDS: CITALOPRAM HYDROBROMIDE 20 MG TABLET (FP) PO SCH (10:11)
[2017-12-19] MEDS: GABAPENTIN 100 MG CAPSULE (FP) PO SCH (10:11)
[2017-12-19] MEDS: CARVEDILOL 12.5 MG TABLET (FP) PO SCH (10:11)
[2017-12-19] MEDS: RANITIDINE HCL 150 MG TABLET (FP) PO SCH (10:11)
[2017-12-19] MEDS ORDERED: SODIUM CHLORIDE 250 ML IV PRN (11:40)
--- NOTE | 2017-12-19 12:30 | PN ---
Teaching Attending Note Name of Resident: Emilio Jones ATTENDING PHYSICIAN STATEMENT I saw and evaluated the patient. I reviewed the resident's note and discussed the case with the resident. I agree with the resident's findings and plan as documented. SUBJECTIVE:c/o dizzyness when getting out of bed this AM. also complaining of pain to buttock. denies Cp, SOB, fever, chills, N/V/C/D OBJECTIVE: Last Vital Signs Temp Pulse Resp BP Pulse Ox 98.2 F 62 19 144/44 98 12/19/17 09:00 12/19/17 10:00 12/19/17 10:00 12/19/17 10:00 12/19/17 09:00 General NAD CV S1 S2 RRR +mumur Lungs CTA B/l no wheezing/rales/rhonchi Extremities B/L UE cool. +palpable thrill LUE. LUE weak pulse RUE 1+ buttock, erythema and denuded skin superior to L buttock ASSESSMENT AND PLAN: 72 M with hx. of HTN, CAD s/p CABG (20 years ago), Diastolic LV dysfxn, PAD s/p LE bypass, IDDM, GIB, Neurogenic bladder, BPH, ESRD on HD (M, W, F), who presents with left arm and chest pain 1. Atypical CP- elevated troponin 0.36 x2. which is lower than troponin in 2017. (0.74). will likely always have a low troponin due to ESRD. echo read pending. cont asa/plavix 2. Dizzyness- orthostatics checked and +. will hold AM meds, give NS @500cc. will notify renal to perhaps not pull off as much fluid during HD today. 3. stage 1 ulcer- consult wound care to evaluate. likely can do some offloading. does not appear infected 4. ESRD on HD- scheduled HD today 5. DM- controlled. cont levemir, iss 6. BPH- flomax 7. DVT ppx- EAM 8. d/c planning today if echo normal and dizzyness resolves
--- NOTE | 2017-12-19 13:17 | PN ---
Progress Note, Physician History of Present Illness: Pt seen and examined at bedside. He denies shortness of breath. He denies chest pain. - Current Medication List Current Medications: Active Medications Atorvastatin Calcium (Lipitor -) 20 mg PO HS [facility] Last Admin: 12/18/17 21:08 Dose: 20 mg Carvedilol (Coreg -) 12.5 mg PO BID [facility] Last Admin: 12/19/17 10:11 Dose: 12.5 mg Cholecalciferol (Vitamin D3 -) 1,000 unit PO [facility] Last Admin: 12/18/17 21:09 Dose: 1,000 unit Citalopram Hydrobromide (Celexa -) 20 mg PO DAILY [facility] Last Admin: 12/19/17 10:11 Dose: 20 mg Clopidogrel Bisulfate (Plavix -) 75 mg PO [facility] Last Admin: 12/18/17 21:08 Dose: 75 mg Gabapentin (Neurontin -) 100 mg PO DAILY [facility] Last Admin: 12/19/17 10:11 Dose: 100 mg Sodium Chloride (Normal Saline -) 250 mls @ 3,000 mls/hr IV PRN PRN PRN Reason: Hypotension during Dialysis Stop: 12/20/17 11:40 Insulin Aspart (Novolog Vial Sliding Scale -) 1 vial SQ ACHS [facility] PRN Reason: Protocol Last Admin: 12/19/17 11:48 Dose: 4 units Nifedipine (Procardia Xl -) 60 mg PO [facility] Last Admin: 12/18/17 21:08 Dose: 60 mg Ranitidine HCl (Zantac -) 300 mg PO DAILY [facility] Last Admin: 12/19/17 10:11 Dose: 300 mg Tamsulosin HCl (Flomax -) 0.4 mg PO [facility] Last Admin: 12/18/17 21:08 Dose: 0.4 mg - Objective Vital Signs: Vital Signs Temperature 98.2 F 12/19/17 09:00 Pulse Rate 62 12/19/17 10:00 Respiratory Rate 19 12/19/17 10:00 Blood Pressure 144/44 12/19/17 10:00 O2 Sat by Pulse Oximetry (%) 98 12/19/17 09:00 Constitutional: Yes: Calm Eyes: Yes: Conjunctiva Clear HENT: Yes: Atraumatic Cardiovascular: Yes: S1, S2 Respiratory: Yes: CTA Bilaterally Gastrointestinal: Yes: Soft Genitourinary: Yes: WNL Musculoskeletal: Yes: WNL Extremities: Yes: Other (left arm fistula with thrill and bruit) Edema: No Neurological: Yes: Oriented Psychiatric: Yes: Oriented Labs: CBC, BMP 12/19/17 05:48 12/19/17 05:48 INR, PTT INR 1.21 (0.82-1.09) H 12/17/17 20:56 Problem List - Problems (1) Chest pain Code(s): R07.9 - CHEST PAIN, UNSPECIFIED Qualifiers: Chest pain type: unspecified Qualified Code(s): R07.9 - Chest pain, unspecified (2) ESRD (end stage renal disease) Code(s): N18.6 - END STAGE RENAL DISEASE Assessment/Plan Current Medications Generic Name Dose Route Start Last Admin Trade Name Freq PRN Reason Stop Dose Admin Atorvastatin Calcium 20 mg 12/18/17 22:00 12/18/17 21:08 Lipitor - PO 20 mg HS [facility] Administration Carvedilol 12.5 mg 12/18/17 10:00 12/19/17 10:11 Coreg - PO 12.5 mg BID [facility] Administration Cholecalciferol 1,000 unit 12/18/17 22:00 12/18/17 21:09 Vitamin D3 - PO 1,000 unit HS [facility] Administration Citalopram Hydrobromide 20 mg 12/18/17 10:00 12/19/17 10:11 Celexa - PO 20 mg DAILY [facility] Administration Clopidogrel Bisulfate 75 mg 12/18/17 22:00 12/18/17 21:08 Plavix - PO 75 mg HS [facility] Administration Gabapentin 100 mg 12/18/17 10:00 12/19/17 10:11 Neurontin - PO 100 mg DAILY [facility] Administration Sodium Chloride 250 mls @ 3,000 mls/hr 12/19/17 11:40 Normal Saline - IV 12/20/17 11:40 PRN PRN Hypotension during Dialysis Insulin Aspart 1 vial 12/18/17 07:00 12/19/17 11:48 Novolog Vial Sliding Scale - SQ 4 units ACHS [facility] Administration Protocol Nifedipine 60 mg 12/18/17 22:00 12/18/17 21:08 Procardia Xl - PO 60 mg HS [facility] Administration Ranitidine HCl 300 mg 12/18/17 10:00 12/19/17 10:11 Zantac - PO 300 mg DAILY [facility] Administration Tamsulosin HCl 0.4 mg 12/18/17 22:00 12/18/17 21:08 Flomax - PO 0.4 mg HS [facility] Administration Impression 1. ESRD 2. anemia 3. HTN 4. Chol 5. DM 6. BPH 7. CAD 8. chest pain 9. CHF Plan - echo reviewed, cardio follow up for possible vegetation - HD today - called and discussed plan with his - vascular surgery follow up - pt is calmer today than he was yesterday
--- NOTE | 2017-12-19 14:03 | PN ---
Physical Exam: SUBJECTIVE: Patient seen and examined at bedside. Pt states he feels well, albeit slightly weaker. Complains of pain in L heel. No other complaints. Afebrile. OBJECTIVE: Vital Signs Period Temp Pulse Resp BP Sys/Rodriguez Pulse Ox Last 24 Hr 97.7 F-98.3 F 58-64 18-20 98-148/44-61 98-100 GENERAL: The patient is awake, alert, and fully oriented, in no acute distress. HEAD: Normal with no signs of trauma. EYES: extraocular movements intact, sclera anicteric, conjunctiva clear. No ptosis. ENT: oropharynx clear without exudates, moist mucous membranes. NECK: Trachea midline, full range of motion, supple. LUNGS: Breath sounds equal, clear to auscultation bilaterally, no wheezes, no crackles, no accessory muscle use. HEART: Regular rate and rhythm, S1, S2 without murmur, rub or gallop. ABDOMEN: Soft, nontender, nondistended, normoactive bowel sounds, no guarding, no rebound, no hepatosplenomegaly, no masses. EXTREMITIES: 1+ pulses in L radial and b/l DP. 2+ at R radial. L arm fistula with thrill. Healing lesion on L heel NEUROLOGICAL: Cranial nerves II through XII grossly intact. Normal speech, gait not observed. PSYCH: Normal mood, normal affect. SKIN: Warm, dry, normal turgor, no rashes or lesions noted Laboratory Results - last 24 hr 12/18/17 12/18/17 12/19/17 17:12 21:07 05:31 WBC RBC Hgb Hct MCV MCH MCHC RDW Plt Count MPV Neutrophils % Lymphocytes % Monocytes % Eosinophils % Basophils % Sodium Potassium Chloride Carbon Dioxide Anion Gap BUN Creatinine Creat Clearance w eGFR POC Glucometer 235 182 144 Random Glucose Calcium Total Bilirubin AST ALT Alkaline Phosphatase Total Protein Albumin 12/19/17 12/19/17 12/19/17 05:48 05:48 11:16 WBC 6.5 RBC 3.93 L Hgb 12.3 Hct 36.0 MCV 91.6 MCH 31.2 MCHC 34.0 RDW 18.0 H Plt Count 176 D MPV 6.9 L Neutrophils % 69.6 Lymphocytes % 14.4 D Monocytes % 13.5 H Eosinophils % 1.7 Basophils % 0.8 Sodium 136 Potassium 4.4 Chloride 100 Carbon Dioxide 24 Anion Gap 12 BUN 82 H D Creatinine 6.1 H D Creat Clearance w eGFR 9.11 POC Glucometer 237 Random Glucose 153 H D Calcium 8.1 L Total Bilirubin 0.4 AST 14 L ALT 15 D Alkaline Phosphatase 102 Total Protein 7.1 Albumin 3.3 L Active Medications Generic Name Dose Route Start Last Admin Trade Name Freq PRN Reason Stop Dose Admin Atorvastatin Calcium 20 mg 12/18/17 22:00 12/18/17 21:08 Lipitor - PO 20 mg HS [facility] Administration Carvedilol 12.5 mg 12/18/17 10:00 12/19/17 10:11 Coreg - PO 12.5 mg BID [facility] Administration Cholecalciferol 1,000 unit 12/18/17 22:00 12/18/17 21:09 Vitamin D3 - PO 1,000 unit HS [facility] Administration Citalopram Hydrobromide 20 mg 12/18/17 10:00 12/19/17 10:11 Celexa - PO 20 mg DAILY [facility] Administration Clopidogrel Bisulfate 75 mg 12/18/17 22:00 12/18/17 21:08 Plavix - PO 75 mg HS [facility] Administration Gabapentin 100 mg 12/18/17 10:00 12/19/17 10:11 Neurontin - PO 100 mg DAILY [facility] Administration Sodium Chloride 250 mls @ 3,000 mls/hr 12/19/17 11:40 Normal Saline - IV 12/20/17 11:40 PRN PRN Hypotension during Dialysis Insulin Aspart 1 vial 12/18/17 07:00 12/19/17 11:48 Novolog Vial Sliding Scale - SQ 4 units ACHS [facility] Administration Protocol Nifedipine 60 mg 12/18/17 22:00 12/18/17 21:08 Procardia Xl - PO 60 mg HS [facility] Administration Ranitidine HCl 300 mg 12/18/17 10:00 12/19/17 10:11 Zantac - PO 300 mg DAILY [facility] Administration Tamsulosin HCl 0.4 mg 12/18/17 22:00 12/18/17 21:08 Flomax - PO 0.4 mg HS [facility] Administration ASSESSMENT/PLAN: 72 yr old man with extensive cardiac history on dialysis presents with left arm pain radiating to his chest placed on Tele-observation to r.o ACS. #Chest pain, r/o ACS, heart score 6 Pt had 2 troponins of 0.36 likely due to his renal disease. His symptoms resolved. - repeat ekg with high lateral twi and anterior q waves. Both present on previous EKG - echo(last echo 07/2017) : significant for mild-moderate global hypokinesis of LV, possible vegetation on Mitral leaflet - continuous cardiac monitoring - consult dr. dotson - IE unlikely in absence of emobolic stigmata or infectious symptoms. No fever, chills, leukocytosis. No durant spots/[place] lesions. -cardio made aware of echo result #DM- uncontrolled, last A1c 9.9 in 2014, f/u with PCP for further management - NISS, BGM ACHS #HTN - continue home medications: - coreg 12.5mg po BID - procadia XL 60mg po HS (held this am due to orthostatic hypotension) #AMS -Per primary, pt's states he is not himself -CT head, noncon #orthostatic hypotension -pt has not been eating/drinking adequately in hospital -vital signs positive for orthostatic hypotension -antihypertesives held, except coreg. #CAD - Plavix 75mg po HS - simvastatin #PAD -Poor pulses -? ischemic ulcer -Vascular consult #DM neuropathy - continue gabapentin #ESRD on HD -Pt to have HD today #continue home meds: flomax and pepcid #diet: diabetic/low sodium/low fat/renal #dispo -ACS r/o & HD Emilio Jones MD PGY-1 IM Visit type - Emergency Visit Emergency Visit: No - New Patient This patient is new to me today: No - Critical Care Critical Care patient: No - Discharge Referral Referred to [facility] Med P.C[facility] No
--- NOTE | 2017-12-19 15:23 | PN ---
Progress Note, Physician History of Present Illness: No further chest pain or dyspnea, undergoing HD without complaints. - Current Medication List Current Medications: Active Medications Atorvastatin Calcium (Lipitor -) 20 mg PO [facility] Last Admin: 12/18/17 21:08 Dose: 20 mg Carvedilol (Coreg -) 12.5 mg PO BID [facility] Last Admin: 12/19/17 10:11 Dose: 12.5 mg Cholecalciferol (Vitamin D3 -) 1,000 unit PO [facility] Last Admin: 12/18/17 21:09 Dose: 1,000 unit Citalopram Hydrobromide (Celexa -) 20 mg PO DAILY [facility] Last Admin: 12/19/17 10:11 Dose: 20 mg Clopidogrel Bisulfate (Plavix -) 75 mg PO [facility] Last Admin: 12/18/17 21:08 Dose: 75 mg Gabapentin (Neurontin -) 100 mg PO DAILY [facility] Last Admin: 12/19/17 10:11 Dose: 100 mg Sodium Chloride (Normal Saline -) 250 mls @ 3,000 mls/hr IV PRN PRN PRN Reason: Hypotension during Dialysis Stop: 12/20/17 11:40 Insulin Aspart (Novolog Vial Sliding Scale -) 1 vial SQ ACHS [facility] PRN Reason: Protocol Last Admin: 12/19/17 11:48 Dose: 4 units Nifedipine (Procardia Xl -) 60 mg PO [facility] Last Admin: 12/18/17 21:08 Dose: 60 mg Ranitidine HCl (Zantac -) 300 mg PO DAILY [facility] Last Admin: 12/19/17 10:11 Dose: 300 mg Tamsulosin HCl (Flomax -) 0.4 mg PO [facility] Last Admin: 12/18/17 21:08 Dose: 0.4 mg - Objective Vital Signs: Vital Signs Temperature 98.4 F 12/19/17 14:55 Pulse Rate 58 L 12/19/17 15:00 Respiratory Rate 18 12/19/17 15:00 Blood Pressure 133/62 12/19/17 15:00 O2 Sat by Pulse Oximetry (%) 98 12/19/17 09:00 Constitutional: Yes: No Distress, Calm, Thin Neck: Yes: Supple Cardiovascular: Yes: Regular Rate and Rhythm, Murmur (2/6 SM) Respiratory: Yes: Regular, Diminished Gastrointestinal: Yes: Normal Bowel Sounds, Soft Edema: No Labs: CBC, BMP 12/19/17 05:48 12/19/17 05:48 INR, PTT INR 1.21 (0.82-1.09) H 12/17/17 20:56 - ....Imaging EKG: Report Reviewed (Tele: No events) Problem List - Problems (1) Chest pain Code(s): R07.9 - CHEST PAIN, UNSPECIFIED Qualifiers: Chest pain type: unspecified Qualified Code(s): R07.9 - Chest pain, unspecified (2) ESRD (end stage renal disease) Code(s): N18.6 - END STAGE RENAL DISEASE (3) Anemia Code(s): D64.9 - ANEMIA, UNSPECIFIED Qualifiers: Anemia type: unspecified type Qualified Code(s): D64.9 - Anemia, unspecified (4) CAD (coronary artery disease) Code(s): I25.10 - ATHSCL HEART DISEASE OF [place] CORONARY ARTERY W/O ANG PCTRS Qualifiers: Coronary Disease-Associated Artery/Lesion type: [place] artery [place] vs. transplanted heart: [place] heart Associated angina: without angina Qualified Code(s): I25.10 - Atherosclerotic heart disease of [place] coronary artery without angina pectoris (5) CKD (chronic kidney disease) Code(s): N18.9 - CHRONIC KIDNEY DISEASE, UNSPECIFIED Qualifiers: Chronic kidney disease stage: unspecified stage Qualified Code(s): N18.9 - Chronic kidney disease, unspecified (6) Diabetes Code(s): E11.9 - TYPE 2 DIABETES MELLITUS WITHOUT COMPLICATIONS Qualifiers: 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 type: type 2 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 [place] insulin use: unspecified [place] insulin use status 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 complication status : with kidney complications 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 complication detail: with nephropathy Qualified Code(s): E11.21 - Type 2 diabetes mellitus with diabetic nephropathy (7) Diastolic dysfunction Code(s): I51.9 - HEART DISEASE, UNSPECIFIED (8) HTN (hypertension) Code(s): I10 - ESSENTIAL (PRIMARY) HYPERTENSION Qualifiers: Hypertension type: essential hypertension Qualified Code(s): I10 - Essential (primary) hypertension (9) Hx of CABG Code(s): Z95.1 - PRESENCE OF AORTOCORONARY BYPASS GRAFT (10) Hypercholesterolemia Code(s): E78.00 - PURE HYPERCHOLESTEROLEMIA, UNSPECIFIED (11) PAD (peripheral artery disease) Code(s): I73.9 - PERIPHERAL VASCULAR DISEASE, UNSPECIFIED (12) Demand ischemia Code(s): I24.8 - OTHER FORMS OF ACUTE ISCHEMIC HEART DISEASE Assessment/Plan 12/19/2017 Normal LV size with mild-mod decrease LV fxn, mild STEPHEN, mild TR, MR, can't exclude MV vegetation 1. Chest pain with elevation of troponin suggests demand ischemia 2. Underlying CAD post CABG, PCI/stent, angina pectoris 3. Hypertension/HCVD 4. Hypercholesterolemia 5. 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 (Insulin requiring) 6. PAD post LE bypass 7. Diastolic LV dysfunction with class 0 NYHA classification LV failure 8. ESRD on HD 9. Anemia 10. History of urinary retention and BPH PLAN: 1. Ruled out for RI 2. Optimize medical therapy for now, but may consider further evaluation including pharmacologic nuclear myocardial perfusion imaging at some point vs. catheterization if clinically indicated 3. Continue Carvedilol 12.5 bid and Procardia XL 60 qd 4. Continue Plavix 75 qd 5. Continue Atorvastatin 20 qhs 7. Monitor renal function and electrolytes. 8. Vascular surgery had seen him last week in the clinic and permacath removed and AV fistular appeared to be functioning normal, but will need to recheck.
--- NOTE | 2017-12-19 16:38 | CONSULT ---
Consult Reason for Consultation:: evaluate left avf, sacral excoriation - History Source Limitations to Obtaining History: No Limitations - Past Medical History Cardio/Vascular: Yes: CAD, CHF, HTN, Hyperlipdemia, [place] Gastrointestinal: Yes: Constipation, GI Bleed Renal/: Yes: Renal Inusuff, Hemodialysis, Neurogenic Bladder Endocrine: Yes: Diabetes Mellitus - Past Surgical History Past Surgical History: Yes: AV Fistula/Graft, Bypass (Lower extremity), CABG, Hernia Repair, Laminectomy, Stent (PCI) - Alcohol/Substance Use Hx Alcohol Use: No History of Substance Use: reports: None - Smoking History Smoking history: Former smoker Have you smoked in the past 12 months: No If you are a former smoker, when did you quit?: 30YRS - Social History Usual Living Arrangement: Assisted ADL: Support Services History of Recent Travel: No Home Medications - Allergies Allergies/Adverse Reactions: Allergies Allergy/AdvReac Type Severity Reaction Status Date / Time acetaminophen [From Percocet] Allergy Mild Hives Verified 12/18/17 01:00 oxycodone [From Percocet] Allergy Mild Hives Verified 12/18/17 01:00 - Home Medications Home Medications: Ambulatory Orders Insulin Glargine,Hum.rec.anlog [Lantus Solostar PEN -] 15 units SQ HS 07/14/17 Simvastatin 40 mg PO HS 07/23/17 Carvedilol [Coreg -] 12.5 mg PO BID #60 tablet 12/18/17 Cholecalciferol (Vitamin D3) [Vitamin D3 -] 1,000 unit PO HS #30 tab 12/18/17 Clopidogrel Bisulfate [Plavix -] 75 mg PO HS #30 tablet 12/18/17 Gabapentin [Neurontin -] 100 mg PO DAILY #30 capsule 12/18/17 Nifedipine ER [Procardia XL -] 60 mg PO HS #30 tab.er.24 12/18/17 Ranitidine [Zantac -] 300 mg PO DAILY #30 tablet 12/18/17 Tamsulosin HCl [Flomax -] 0.4 mg PO HS #30 cap.er.24h 12/18/17 Family Disease History - Family Disease History Family Disease History: [place]: Mother, Sister Review of Systems - Review of Systems Constitutional: reports: No Symptoms Eyes: reports: No Symptoms HENT: reports: No Symptoms Neck: reports: No Symptoms Cardiovascular: reports: No Symptoms Respiratory: reports: No Symptoms Gastrointestinal: reports: No Symptoms Genitourinary: reports: No Symptoms Breasts: reports: No Symptoms Reported Musculoskeletal: reports: No Symptoms Integumentary: reports: No Symptoms Neurological: reports: No Symptoms Endocrine: reports: No Symptoms Hematology/Lymphatic: reports: No Symptoms Psychiatric: reports: No Symptoms Physical Exam Vital Signs: Vital Signs Temperature 98.3 F 12/19/17 16:11 Pulse Rate 59 L 12/19/17 16:11 Respiratory Rate 19 12/19/17 16:11 Blood Pressure 127/58 12/19/17 16:11 O2 Sat by Pulse Oximetry (%) 98 12/19/17 09:00 Constitutional: Yes: Well Nourished, No Distress, Calm Eyes: Yes: WNL, Conjunctiva Clear, EOM Intact HENT: Yes: WNL, Atraumatic, Normocephalic Neck: Yes: WNL, Supple, Trachea Midline Cardiovascular: Yes: WNL, Regular Rate and Rhythm Respiratory: Yes: WNL, Regular, CTA Bilaterally Gastrointestinal: Yes: WNL, Normal Bowel Sounds ...Rectal Exam: Yes: WNL Renal/: Yes: WNL Breast(s): Yes: WNL Musculoskeletal: Yes: WNL Extremities: Yes: WNL Integumentary: Yes: WNL Neurological: Yes: WNL, Alert, Oriented ...Motor Strength: WNL Psychiatric: Yes: WNL Labs: CBC, BMP 12/19/17 05:48 12/19/17 05:48 Problem List - Problems (1) ESRD (end stage renal disease) Code(s): N18.6 - END STAGE RENAL DISEASE (2) Fistula Code(s): L98.8 - [facility] DISRD OF THE SKIN AND SUBCUTANEOUS TISSUE Assessment/Plan Pt seen and examined. Left avf is patent. Good bruit and thrill. can place lidocaine cream to the area prior to HD , so that the pt doesnt have any pain. Sacral area evaluated. No open areas. Please offload area. Cont zinc oxide to area. Praful lorenzo DO
--- NOTE | 2017-12-19 16:43 | DS ---
Physical Exam: SUBJECTIVE:Patient seen and examined at bedside. Pt states he feels well. Afebrile. OBJECTIVE: Vital Signs Period Temp Pulse Resp BP Sys/Rodriguez Pulse Ox Last 24 Hr 97.7 F-98.4 F 54-64 18-20 98-148/44-63 98-100 PHYSICAL EXAM GENERAL: The patient is awake, alert, and fully oriented, in no acute distress. HEAD: Normal with no signs of trauma. EYES: extraocular movements intact, sclera anicteric, conjunctiva clear. No ptosis. ENT: oropharynx clear without exudates, moist mucous membranes. NECK: Trachea midline, full range of motion, supple. LUNGS: Breath sounds equal, clear to auscultation bilaterally, no wheezes, no crackles, no accessory muscle use. HEART: Regular rate and rhythm, S1, S2 without murmur, rub or gallop. ABDOMEN: Soft, nontender, nondistended, normoactive bowel sounds, no guarding, no rebound, no hepatosplenomegaly, no masses. EXTREMITIES: 1+ pulses in L radial and b/l DP. 2+ at R radial. L arm fistula with thrill. Healing lesion on L heel NEUROLOGICAL: Cranial nerves II through XII grossly intact. Normal speech, gait not observed. PSYCH: Normal mood, normal affect. SKIN: Warm, dry, normal turgor, no rashes or lesions noted LABS Laboratory Results - last 24 hr 12/18/17 12/18/17 12/19/17 17:12 21:07 05:31 WBC RBC Hgb Hct MCV MCH MCHC RDW Plt Count MPV Neutrophils % Lymphocytes % Monocytes % Eosinophils % Basophils % Sodium Potassium Chloride Carbon Dioxide Anion Gap BUN Creatinine Creat Clearance w eGFR POC Glucometer 235 182 144 Random Glucose Calcium Total Bilirubin AST ALT Alkaline Phosphatase Total Protein Albumin 12/19/17 12/19/17 12/19/17 05:48 05:48 11:16 WBC 6.5 RBC 3.93 L Hgb 12.3 Hct 36.0 MCV 91.6 MCH 31.2 MCHC 34.0 RDW 18.0 H Plt Count 176 D MPV 6.9 L Neutrophils % 69.6 Lymphocytes % 14.4 D Monocytes % 13.5 H Eosinophils % 1.7 Basophils % 0.8 Sodium 136 Potassium 4.4 Chloride 100 Carbon Dioxide 24 Anion Gap 12 BUN 82 H D Creatinine 6.1 H D Creat Clearance w eGFR 9.11 POC Glucometer 237 Random Glucose 153 H D Calcium 8.1 L Total Bilirubin 0.4 AST 14 L ALT 15 D Alkaline Phosphatase 102 Total Protein 7.1 Albumin 3.3 L HOSPITAL COURSE: Date of Admission:12/18/17 Date of Discharge: 12/19/17 Pt is a 72 yr old man with extensive cardiac history on dialysis presents with left arm pain radiating to his chest placed on Tele-observation to r.o ACS. Pt presented to ED sent by Lead Dental Assistant because of chest pain during dialysis. Pt was found to have heart score of 6 on admission. Pt was seen by cardiology, nephrology, and vascular surgery. Pt had 2 troponins of 0.36 likely due to his renal disease. His symptoms resolved. Ekg with high lateral twi and anterior q waves. Both present on previous EKG Echo(last echo 07/2017) : significant for mild-moderate global hypokinesis of LV , possible vegetation on Mitral leaflet IE unlikely in absence of emobolic stigmata or infectious symptoms. No fever, chills, leukocytosis. No durant spots/[place] lesions. Echo was reviewed with 2nd learning services coordinator. Thickening of mitral leaflet was felt to be most likely dystrophic calcification. DM was uncontrolled at home, last A1c 9.9 in 2014 Pt advised to follow up with PCP for further management HTN was managed with home medications. Coreg, procadia (Procardia held this am due to orthostatic hypotension). Pt currently stable. orthostatic hypotension - -pt has not been eating/drinking adequately in hospital Vital signs were positive for orthostatic hypotension. Antihypertesives held, except coreg. AMS: Per primary, pt's states he is not himself CT head, noncon was significant for chronic changes. Moderate atrophy and chronic ischemic changes. Pt's CAD was treated with home medications.Plavix and simvastatin Pt has PAD. Poor pulses. Vascular consult: no intervention. DM neuropathy was treated with home medication: gabapentin ESRD on HD. Pt had HD in hospital. BPH was treated with flomax GERD was treated with pepcid Emilio Jones MD PGY-1 IM Minutes to complete discharge: 30 Discharge Summary Reason For Visit: ESRD CHEST PAIN Current Active Problems Chest pain (Acute) ESRD (end stage renal disease) (Chronic) Condition: Good - Instructions Diet, Activity, Other Instructions: You need to follow up with Dr. Del Valle within 1 week. You need to follow up with Dr. Donovan within 1 week or at your next dialysis session. Continue with your dialysis on your regular scheduled sessions. Follow up with Dr. Shadi Brothers, cardiology or with your own learning services coordinator. Follow up with Dr. Praful Mcneil. You need to put zinc oxide cream on the painful spot on your buttocks. Try not to put pressure on the area. Your fistula is working well. You are being discharged with the following: Citalopram 20mg daily Insulin Glargine 15 units at night Simvastatin 40 mg at night Coreg 12.5 mg twice daily Vitamin D3 1,000 units at night Plavix 75 mg at night Gabapentin 100 mg daily Procardia 60 mg at night Zantac 300 mg daily Flomax 0.4 mg at night Please take all your medications as directed. Make sure you speak with your primary care doctor about your medications. If condition worsens, develop chest pain, sob go to hospital Referrals: Bernardo Del Valle MD [Primary Care Provider] - 1 Week Praful Mcneil MD [Staff Physician] - 1 Week Kalani Donovan MD [Staff Physician] - 1 Week Disposition: HOME - Home Medications Comprehensive Discharge Medication List: Ambulatory Orders Insulin Glargine,Hum.rec.anlog [Lantus Solostar PEN -] 15 units SQ HS 07/14/17 Simvastatin 40 mg PO HS 07/23/17 Carvedilol [Coreg -] 12.5 mg PO BID #60 tablet 12/18/17 Cholecalciferol (Vitamin D3) [Vitamin D3 -] 1,000 unit PO HS #30 tab 12/18/17 Clopidogrel Bisulfate [Plavix -] 75 mg PO HS #30 tablet 12/18/17 Gabapentin [Neurontin -] 100 mg PO DAILY #30 capsule 12/18/17 Nifedipine ER [Procardia XL -] 60 mg PO HS #30 tab.er.24 12/18/17 Ranitidine [Zantac -] 300 mg PO DAILY #30 tablet 12/18/17 Tamsulosin HCl [Flomax -] 0.4 mg PO HS #30 cap.er.24h 12/18/17 This patient is new to me today: No Emergency Visit: No Critical Care patient: No - Discharge Referral Referred to [facility] No
[2017-12-19 18:36] VITALS: TEMP 98.4
[2017-12-19 18:45] VITALS: BP 144/61; PULSE 78
[2017-12-23 06:36] LABS: HBSAG SCREEN Negative (Negative); HEP A AB, IGM Negative (Negative); HEP B CORE AB, TOT Negative (Negative)
== END 2017-12-19 21:07 | disposition home or self-care (01) ==
LOC: JER 19:57 → JERBED 12-18 01:04 → UNDOADMOB 12-18 01:26 → JERBED 12-18 01:26 → J4W 12-18 03:43
PROVIDERS: ADMIT Internal Medicine; ATTEND Internal Medicine
PROC: 3E013VG Introduction of Insulin into Subcutaneous Tissue, Percutaneous Approach (ICD-10-PCS; principal; 2017-12-18)
DX: R07.89 Other chest pain (principal); E11.22 Type 2 diabetes mellitus with diabetic chronic kidney disease; E11.65 Type 2 diabetes mellitus with hyperglycemia; E11.40 Type 2 diabetes mellitus with diabetic neuropathy, unspecified; I12.0 Hypertensive chronic kidney disease with stage 5 chronic kidney disease or end stage renal disease; R77.8 Other specified abnormalities of plasma proteins; N18.6 End stage renal disease; Z99.2 Dependence on renal dialysis; Z79.4 Long term (current) use of insulin; I25.10 Atherosclerotic heart disease of native coronary artery without angina pectoris; I25.2 Old myocardial infarction; I51.9 Heart disease, unspecified; I24.8 Other forms of acute ischemic heart disease; I50.33 Acute on chronic diastolic (congestive) heart failure; I73.9 Peripheral vascular disease, unspecified; I95.1 Orthostatic hypotension; R41.82 Altered mental status, unspecified; L98.8 Other specified disorders of the skin and subcutaneous tissue; N31.9 Neuromuscular dysfunction of bladder, unspecified; N40.0 Benign prostatic hyperplasia without lower urinary tract symptoms; D64.9 Anemia, unspecified; K21.9 Gastro-esophageal reflux disease without esophagitis; E78.5 Hyperlipidemia, unspecified; Z95.5 Presence of coronary angioplasty implant and graft; Z95.1 Presence of aortocoronary bypass graft; Z88.2 Allergy status to sulfonamides; Z87.891 Personal history of nicotine dependence
CPT/HCPCS: 36415; 70450-TC; 71045-TC-FY; 80053; 82550; 82962; 84484; 85025; 85610; 86704; 86706; 86708; 86850; 86900; 86901; 87340; 93005; 93010; 93306-TC; 96372; 99285-25; G0378

== ENCOUNTER 2018-03-28 20:39 | Inpatient (IN) | payer OTHER, MEDICARE ==
--- NOTE | 2018-03-28 21:03 | PDOC ---
Attending Attestation - HPI HPI: 03/28/18 22:07 Patient is a 72 year old male with a significant past medical history of HTN, IDDM, CAD s/p stents, CABG, CKD ( dialysis) BIBA from [facility] s/p hypoglycemia, who was sent to the ED with complaints of syncopal episode that this morning. Patient is a poor historian during attending physician examination. As per prior history, patient was reported to be sitting at home and when he began to stand up fell and woke up on the floor with no recollection of what happened. Patient complained of experiencing associated neck pain, head pain and back pain secondary to fall but stated he did not come into the ED immediately after fall due to thinking he would begin to get better with rest over time. Patient last dialysis appointment was Sunday yesterday morning. Denies chest pain, Sob. Denies nausea, vomiting. Denies fevers,chills. Denies contact with sick individuals, out of state travelling. Denies dysuria. Hematuria. Denies diarrhea, constipation. Denies any other symptoms. Allergies: Acetaminophen, Oxycodone. Social history: No smoking. No alcohol. No illicit drugs. Surgical history: AV Fistula/Graft, Bypass, CABG, Hernia Repair, Laminectomy, Stent PMD: Dr. Bernardo Del Valle. <Frederick Cifuentes - Last Filed: 03/28/18 22:07> - Resident Resident Name: Steven Mejia - ED Attending Attestation I have performed the following: I have examined & evaluated the patient, The case was reviewed & discussed with the resident, I agree w/resident's findings & plan, Exceptions are as noted - Physicial Exam PE: GENERAL: Awake, alert, and oriented to person and place, in no acute distress HEAD: No signs of trauma EYES: PERRLA, EOMI, sclera anicteric, conjunctiva clear ENT: Auricles normal inspection, hearing grossly normal, nares patent, oropharynx clear without exudates. Moist mucosa NECK: Normal ROM, supple, no lymphadenopathy, JVD, or masses LUNGS: Breath sounds equal, clear to auscultation bilaterally. No wheezes, and no crackles HEART: Regular rate and rhythm, normal S1 and S2, no murmurs, rubs or gallops ABDOMEN: Soft, nontender, normoactive bowel sounds. No guarding, no rebound. No masses EXTREMITIES: Normal range of motion, no edema. No clubbing or cyanosis. No cords, erythema, or tenderness NEUROLOGICAL: Cranial nerves II through XII grossly intact. Normal speech. Moving all extremities. Limited by poor cooperation. SKIN: Warm, Dry, normal turgor, no rashes or lesions noted. SPINE: No midline tenderness. - Medical Decision Making Pt is poor historian, but presents s/p syncopal event. Multiple medical comorbidities. Will admit. <Susan Toure - Last Filed: 03/29/18 01:41>
[2018-03-28 22:42] LABS: BASO % 0.6 % (0-2.0); EOS % 1.6 % (0-4.5); HEMATOCRIT 23.5 % (35.4-49); HEMOGLOBIN 8.4 GM/dL (11.7-16.9); LYMPH % 8.8 % (8-40); MCH 33.9 pg (25.7-33.7); MCHC 35.6 g/dl (32.0-35.9); MEAN CELL VOLUME 95.3 fl (80-96); MEAN PLT VOLUME 6.2 fl (7.5-11.1); MONO % 11.4 % (3.8-10.2); NEUT % 77.6 % (42.8-82.8); PLATELET COUNT 232 K/MM3 (134-434); RBC 2.47 M/mm3 (4.00-5.60); RDW 14.7 % (11.9-15.9); WHITE BLOOD COUNT 10.7 K/mm3 (4.0-10.0)
--- NOTE | 2018-03-28 22:48 | PDOC ---
History of Present Illness - General Chief Complaint: Injury Stated Complaint: FALL Time Seen by Provider: 03/28/18 20:49 History Source: Patient Exam Limitations: No Limitations - History of Present Illness Initial Comments: 03/28/18 22:42 Patient is a 72M with a medical history of HTN, IDDM, CABG, ESRD on MWF dialysis here today complaining of neck pain after a fall this morning. Patient states that he was going from a sitting to a standing position when he fell. He denies LOC, but states that he doesn't remember what happened. Denies chest pain and shortness of breath. Denies abdominal pain. Denies leg and hip pain. Denies changes to the amount of fluid taken off during dialysis. Denies fevers, chills, nausea, vomiting. Patient states that he didn't come in right away because he thought he would improve. Past History - Past Medical History Allergies/Adverse Reactions: Allergies Allergy/AdvReac Type Severity Reaction Status Date / Time acetaminophen [From Percocet] Allergy Mild Hives Verified 03/28/18 20:49 oxycodone [From Percocet] Allergy Mild Hives Verified 03/28/18 20:49 Home Medications: Ambulatory Orders Carvedilol [Coreg -] 12.5 mg PO BID #60 tablet 12/18/17 Tamsulosin HCl [Flomax -] 0.4 mg PO HS #30 cap.er.24h 12/18/17 Amlodipine Besylate 10 mg PO DAILY 02/17/18 Aspirin [Adult Aspirin] 81 mg PO DAILY 02/17/18 Atorvastatin Ca [Lipitor] 40 mg PO HS 02/17/18 Collagenase Clostridium Hist. [Santyl -] 1 applic TP DAILY 02/17/18 Divalproex [Depakote -] 125 mg PO BID 02/17/18 Docusate Sodium 300 mg PO HS 02/17/18 Folic Acid 1 mg PO DAILY 02/17/18 Haloperidol 2 mg PO HS 02/17/18 Insulin Glargine,Hum.rec.anlog [Lantus Solostar] 10 unit SQ HS 02/17/18 Calcium Acetate [Phoslo -] 667 mg PO TIDCM 03/28/18 Citalopram Hydrobromide [Celexa -] 20 mg PO DAILY 03/28/18 Clopidogrel Bisulfate [Plavix -] 75 mg PO DAILY 03/28/18 Dextran 70/Hypromellose/Pf [Artificial Tears Drops] 1 each OU BID PRN 03/28/18 Famotidine 20 mg PO DAILY 03/28/18 Gabapentin [Neurontin -] 100 mg PO Q8H 03/28/18 Insulin Lispro [Humalog] unit SQ BID 03/28/18 LORazepam [Ativan] 0.5 mg PO ASDIR 03/28/18 Mirtazapine [Remeron -] 15 mg PO HS 03/28/18 Vitamin B Complex [Balance B-50] 1 each PO DAILY 03/28/18 Zinc Oxide 20% Topical Oint 454 gm NR ASDIR 03/28/18 Anemia: Yes (taking iron) Asthma: No Cancer: No Cardiac Disorders: Yes (CAD, CABG, stents) CVA: No COPD: No CHF: No DVT: No Dementia: No Diabetes: Yes GI Disorders: Yes (GERD, G-I bleed) Disorders: Yes (BPH) HTN: Yes Hypercholesterolemia: Yes Liver Disease: No Psychiatric Problems: Yes Seizures: No Thyroid Disease: No - Surgical History Abdominal Surgery: Yes (Left Inguinal Hernia Repair) Appendectomy: No Cardiac Surgery: Yes (Bypass Surgery 18 yrs ago, Followed by Stents placement x2 ) Cholecystectomy: No Lung Surgery: No Neurologic Surgery: No Orthopedic Surgery: Yes (Laminectomy) - Immunization History Immunization Up to Date: Yes - Suicide/Smoking/Psychosocial Hx Smoking History: Unknown if ever smoked Have you smoked in the past 12 months: No If you are a former smoker, when did you quit?: 30YRS 'Breaking Loose' booklet given: 10/23/17 Hx Alcohol Use: No Drug/Substance Use Hx: No Substance Use Type: None Hx Substance Use Treatment: No Review of Systems - Review of Systems Comments:: 03/28/18 22:44 GENERAL/CONSTITUTIONAL: No fever or chills. No weakness. HEAD, EYES, EARS, NOSE AND THROAT: No change in vision. . No sore throat. CARDIOVASCULAR: No chest pain or shortness of breath RESPIRATORY: No cough, wheezing, or hemoptysis. GASTROINTESTINAL: No nausea, vomiting, diarrhea or constipation. GENITOURINARY: No dysuria, frequency, or change in urination. MUSCULOSKELETAL: No joint or muscle swelling or pain. +neck +back pain. SKIN: No rash NEUROLOGIC: No headache, vertigo, loss of consciousness, or change in strength/ sensation. ENDOCRINE: No increased thirst. No abnormal weight change HEMATOLOGIC/LYMPHATIC: No anemia, easy bleeding, or history of blood clots. ALLERGIC/IMMUNOLOGIC: No hives or skin allergy. *Physical Exam - Vital Signs Last Vital Signs Temp Pulse Resp BP Pulse Ox 97.9 F 67 16 141/73 100 03/28/18 20:40 03/28/18 20:40 03/28/18 20:40 03/28/18 20:40 03/28/18 20:40 - Physical Exam Comments: 03/28/18 22:45 GENERAL: Awake, alert, and fully oriented, in no acute distress. In c-collar HEAD: No signs of trauma, normocephalic, atraumatic EYES: PERRLA, EOMI, sclera anicteric, conjunctiva clear ENT: Auricles normal inspection, hearing grossly normal, nares patent, oropharynx clear without exudates. Moist mucosa NECK: Normal ROM, supple, no lymphadenopathy, JVD, or masses, +midline tenderness BACK: No midline tenderness LUNGS: No distress, speaks full sentences, clear to auscultation bilaterally HEART: Regular rate and rhythm, normal S1 and S2, no murmurs, rubs or gallops, peripheral pulses normal and equal bilaterally. ABDOMEN: Soft, nontender, normoactive bowel sounds. No guarding, no rebound. No masses EXTREMITIES: Normal inspection, Normal range of motion, no edema. No clubbing or cyanosis. NEUROLOGICAL: Cranial nerves II through XII grossly intact. Normal speech, no focal sensorimotor deficits SKIN: Warm, Dry, normal turgor, no rashes or lesions noted. ED Treatment Course - LABORATORY CBC & Chemistry Diagram: 03/28/18 22:22 03/28/18 22:22 - RADIOLOGY Radiology Studies Ordered: Category Date Time Status CERVICAL SPINE CT W/O CONTR [CT] Stat CT Scan 03/28/18 20:[address] WITHOUT CONTRAST [CT] Stat CT Scan 03/28/18 20:57 Ordered CHEST X-RAY PORTABLE* [RAD] Stat Radiology 03/28/18 20:56 Completed Medical Decision Making - Medical Decision Making 03/28/18 22:45 Patient is 72M with history of HTN, IDDM, CABG, ESRD on MWF dialysis here today complaining of syncope. Likely vasovagal but cannot rule out cardiac etiologies of syncope. Unable to clear spine clinically. Will do head ct, cervical ct, and do cardiac workup. 03/29/18 00:55 Laboratory Tests 03/28/18 03/28/18 03/28/18 22:22 22:22 22:22 WBC 10.7 H Hgb 8.4 L Plt Count 232 INR 1.20 H Potassium 3.6 BUN 58 H Creatinine 4.6 H Troponin I 0.19 H CBC shows anemia, at baseline. CMP shows ESRD, K normal. Trop 0.19, patient has consistently detectable trops. Head CT shows possible sinusitis, with a concern for possible malignancy. CA does not fit clinical picture. EKG shows normal sinus rhythm with rate of 72. No st elevations/depressions. T- wave inversions in I and aVL. Leftward axis. Normal intervals. 03/29/18 02:[address] cleared. C-collar removed. 03/29/18 03:[address] Quiñonez for If[facility]. *DC/Admit/Observation/Transfer Diagnosis at time of Disposition: Syncope - Discharge Dispostion Condition at time of disposition: Stable Decision to Admit order: Yes - Referrals Referrals: Bernardo Del Valle MD [Primary Care Provider] - - Patient Instructions - Post Discharge Activity
[2018-03-28 23:16] LABS: INR 1.2 (0.83-1.09); PROTHROMBIN TIME (PATIENT) 13.6 SEC (9.7-13.0)
[2018-03-28 23:51] LABS: ALBUMIN 2.6 g/dl (3.4-5.0); ANION GAP 11 MMOL/L (8-16); CHLORIDE 99 mmol/L (98-107); CO2 28 mmol/L (21-32); CREATININE 4.6 mg/dL (0.7-1.3); GLUCOSE,RANDOM 283 mg/dL (74-106); MAGNESIUM 1.9 mg/dL (1.8-2.4); POTASSIUM 3.6 mmol/L (3.5-5.1); SGOT/AST 18 U/L (15-37); SGPT/ALT 16 U/L (12-78); SODIUM 138 mmol/L (136-145); TOT PROT 6.5 g/dl (6.4-8.2)
[2018-03-29 00:06] LABS: ALK PHOS 105 U/L (45-117); BILIRUBIN,TOTAL 0.2 mg/dL (0.2-1.0); BLOOD UREA NITROGEN 58 mg/dL (7-18)
[2018-03-29] MEDS ORDERED: ACETAMINOPHEN 325 MG TABLET (FP) PO ONE (00:42)
[2018-03-29] MEDS ORDERED: ACETAMINOPHEN 325 MG TABLET (FP) ONE (01:24)
[2018-03-29] MEDS ORDERED: LACTULOSE 20 GM/30 ML UDC (FOR ORAL USE ONLY) PO ONE (02:13)
--- NOTE | 2018-03-29 03:10 | PN ---
Teaching Attending Note Name of Resident: Pam Quiñonez ATTENDING PHYSICIAN STATEMENT I saw and evaluated the patient. I reviewed the resident's note and discussed the case with the resident. I agree with the resident's findings and plan as documented. SUBJECTIVE: Patient is a 72 year old man with a medical history of HTN, insulin-treated DM, CABG, cardiac stents, ESRD on MWF hemodialysis here today complaining of neck pain after a fall this morning. Patient states that he was going from a sitting to a standing position when he fell. He denies LOC, but states that he doesn't remember what happened. Denies chest pain and shortness of breath. Denies abdominal pain. Denies leg and hip pain. Denies changes to the amount of fluid taken off during dialysis. Denies fevers, chills, nausea, vomiting. Patient states that he didn't come in right away because he thought he would improve. OBJECTIVE: Alert. Not orthostatic Vital Signs Period Temp Pulse Resp BP Sys/Rodriguez Pulse Ox Last 24 Hr 97.9 F-98.3 F 67-73 16-17 141-145/55-73 98-100 HEENT: No Jaundice, eye redness or discharge, PERRLA, EOMI. Normocephalic, atraumatic. External ears are normal and hearing is grossly intact. No nasal discharge. Neck: Supple, tender back of neck. No palpable adenopathy or thyromegaly. No JVD Chest: Good effort. Clear to auscultation and percussion. Heart: Regular. No S3, rub or murmur Abdomen: Not distended, soft, nontender and no HSM. No rebound or guarding. Normoactive bowel sounds. Ext: Peripheral pulses intact. Right arm tremors. Left upper arm AVF with good thrill and bruit; bilateral heel ulcers - left worse than right; stage 3/4, looks chronic with eschar, necrotic tissue and erythema - mildly tender. No leg edema. Skin: Warm and dry. No petechiae, rash or ecchymosis. Neuro: Alert. Oriented x3. CN 2-12 grossly intact. Sensation grossly intact in all four extremities and DTR are symmetric. Home Medications Medication Instructions Recorded Carvedilol [Coreg -] 12.5 mg PO BID #60 tablet 12/18/17 Tamsulosin HCl [Flomax -] 0.4 mg PO HS #30 cap.er.24h 12/18/17 Amlodipine Besylate 10 mg PO DAILY 02/17/18 Aspirin [Adult Aspirin] 81 mg PO DAILY 02/17/18 Atorvastatin Ca [Lipitor] 40 mg PO HS 02/17/18 Collagenase Clostridium Hist. 1 applic TP DAILY 02/17/18 [Santyl -] Divalproex [Depakote -] 125 mg PO BID 02/17/18 Docusate Sodium 300 mg PO HS 02/17/18 Folic Acid 1 mg PO DAILY 02/17/18 Haloperidol 2 mg PO HS 02/17/18 Insulin Glargine,Hum.rec.anlog 10 unit SQ HS 02/17/18 [Lantus Solostar] Calcium Acetate [Phoslo -] 667 mg PO TIDCM 03/28/18 Citalopram Hydrobromide [Celexa -] 20 mg PO DAILY 03/28/18 Clopidogrel Bisulfate [Plavix -] 75 mg PO DAILY 03/28/18 Dextran 70/Hypromellose/Pf 1 each OU BID PRN 03/28/18 [Artificial Tears Drops] Famotidine 20 mg PO DAILY 03/28/18 Gabapentin [Neurontin -] 100 mg PO Q8H 03/28/18 Insulin Lispro [Humalog] unit SQ BID 03/28/18 LORazepam [Ativan] 0.5 mg PO ASDIR 03/28/18 Mirtazapine [Remeron -] 15 mg PO HS 03/28/18 Vitamin B Complex [Balance B-50] 1 each PO DAILY 03/28/18 Zinc Oxide 20% Topical Oint 454 gm NR ASDIR 03/28/18 Abnormal Lab Results 03/28/18 03/28/18 03/28/18 22:22 22:22 22:22 WBC 10.7 H RBC 2.47 L Hgb 8.4 L Hct 23.5 L D MCH 33.9 H MPV 6.2 L Absolute Neuts (auto) 8.3 H Monocytes % 11.4 H PT with INR 13.60 H INR 1.20 H BUN 58 H Creatinine 4.6 H Random Glucose 283 H D Calcium 8.0 L Troponin I 0.19 H Albumin 2.6 L ASSESSMENT AND PLAN: 1. Syncope - Workup thus far negative. Severe anemia is likely contributing factor. Will check with his hemodialysis center to find outhis most recent hematocrit. Monitor on telemetry, get brain MRI, ECHO, carotid doppler and neuro checks. Elevated troponin may be due to ESRD and demand ischemia - no EKG changes of ACS - will rule out ACS. Consult cardiology and neurology. Consult nephrology - may need transfusion during next dialysis. Mild leukocytosis may be reactive - monitor closely. Consult podiatry and ID for heel ulcers - needs ? debridement, wound culture and ?antibiotic therapy. Continue daily wound care. 2. Hypoalbuminemia - Possibly due to combined effects of malnutrition and inflammation associated with comorbid chronic conditions. Will ensure adequate dietary protein intake and also consult chinese language professor. 3. DM - For now, we will hold the home diabetes drugs and implement sliding scale insulin regimen. Provide comprehensive diabetes care with patient teaching and counseling about the importance of euglycemia, eye care and foot care. 4. Anemia - Likely chiefly due to ESRD. Will do basic anemia work up including serial stool guaiacs, reticulocyte count and iron studies. Ensure adequate iron stores to maximize response to Procrit. 5. DVT prophylaxis - Heparin 5000u sq tid. 6. Advance directives - Full code
[2018-03-29] MEDS ORDERED: LORazepam 0.5 MG TABLET PO SCH (04:15)
[2018-03-29] MEDS ORDERED: PATIENT'S OWN MEDICATION (NON-FORMULARY) (Zinc Oxide 20% Topical Oint 454 GM) NR SCH ×2 (04:15→04:41)
--- NOTE | 2018-03-29 04:17 | HP ---
CHIEF COMPLAINT: fall PCP: Dr. Del Valle, currently at [facility] under the care of Dr. Juárez HISTORY OF PRESENT ILLNESS: 72 yr old man with HTN, IDDM, HTN, CHF, ESRD on HD (MWF), BIBEMS [facility] fall in [facility]. He was turning to sit on the edge of the bed to eat dinner when he lost his hold on the bed and fell. c/o constipation for past 4 days. c/o b/l heel pain due to ulcers. denies fevers in the last few days. denies LOC, head trauma, chest pain, palpitations, dizziness. ER course was notable for: (1) head ct, cervical spine ct (2) (3) Recent Travel: none PAST MEDICAL HISTORY: HTN, CAD s/p stents, ESRD on HD, IDDM, CAD, PAD, Hypercholesterolermia, Urinary Retention, Chronic Back Pain(s/p laminectomy, fusions), Constipation, Anemia hx of GI bleed, CHF (LV dysfunction) PAST SURGICAL HISTORY: CABG >25yrs ago left arm fistula 09/2017 Social History: Smoking: never Alcohol: denies Drugs: denies Family History: Allergies acetaminophen [From Percocet] Allergy (Mild, Verified 03/28/18 20:49) Hives oxycodone [From Percocet] Allergy (Mild, Verified 03/28/18 20:49) Hives HOME MEDICATIONS: Home Medications Medication Instructions Recorded Carvedilol [Coreg -] 12.5 mg PO BID #60 tablet 12/18/17 Tamsulosin HCl [Flomax -] 0.4 mg PO HS #30 cap.er.24h 12/18/17 Amlodipine Besylate 10 mg PO DAILY 02/17/18 Aspirin [Adult Aspirin] 81 mg PO DAILY 02/17/18 Atorvastatin Ca [Lipitor] 40 mg PO HS 02/17/18 Collagenase Clostridium Hist. 1 applic TP DAILY 02/17/18 [Santyl -] Divalproex [Depakote -] 125 mg PO BID 02/17/18 Docusate Sodium 300 mg PO HS 02/17/18 Folic Acid 1 mg PO DAILY 02/17/18 Haloperidol 2 mg PO HS 02/17/18 Insulin Glargine,Hum.rec.anlog 10 unit SQ HS 02/17/18 [Lantus Solostar] Calcium Acetate [Phoslo -] 667 mg PO TIDCM 03/28/18 Citalopram Hydrobromide [Celexa -] 20 mg PO DAILY 03/28/18 Clopidogrel Bisulfate [Plavix -] 75 mg PO DAILY 03/28/18 Dextran 70/Hypromellose/Pf 1 each OU BID PRN 03/28/18 [Artificial Tears Drops] Famotidine 20 mg PO DAILY 03/28/18 Gabapentin [Neurontin -] 100 mg PO Q8H 03/28/18 Insulin Lispro [Humalog] unit SQ BID 03/28/18 LORazepam [Ativan] 0.5 mg PO ASDIR 03/28/18 Mirtazapine [Remeron -] 15 mg PO HS 03/28/18 Vitamin B Complex [Balance B-50] 1 each PO DAILY 03/28/18 Zinc Oxide 20% Topical Oint 454 gm NR ASDIR 03/28/18 REVIEW OF SYSTEMS CONSTITUTIONAL: Present: weight change Absent: fever, chills, diaphoresis, generalized weakness, malaise, loss of appetite, HEENT: Absent: rhinorrhea, nasal congestion, throat pain, throat swelling, difficulty swallowing, mouth swelling, ear pain, eye pain, visual changes CARDIOVASCULAR: Absent: chest pain, syncope, palpitations, irregular heart rate, lightheadedness , peripheral edema RESPIRATORY: Absent: cough, shortness of breath, dyspnea with exertion, orthopnea, wheezing, stridor, hemoptysis GASTROINTESTINAL: Absent: abdominal pain, abdominal distension, nausea, vomiting, diarrhea, constipation, melena, hematochezia GENITOURINARY: Absent: dysuria, frequency, urgency, hesitancy, hematuria, flank pain, genital pain MUSCULOSKELETAL: Absent: myalgia, arthralgia, joint swelling, back pain, neck pain SKIN: Absent: rash, itching, pallor HEMATOLOGIC/IMMUNOLOGIC: Absent: easy bleeding, easy bruising, lymphadenopathy, frequent infections ENDOCRINE: Absent: unexplained weight gain, unexplained weight loss, heat intolerance, cold intolerance NEUROLOGIC: Absent: headache, focal weakness or paresthesias, dizziness, unsteady gait, seizure, mental status changes, bladder or bowel incontinence PSYCHIATRIC: Absent: anxiety, depression, suicidal or homicidal ideation, hallucinations. PHYSICAL EXAMINATION Vital Signs - 24 hr 03/28/18 03/29/18 20:40 02:42 Temperature 97.9 F 98.3 F Pulse Rate 67 Pulse Rate [ 73 Apical] Respiratory 16 17 Rate Blood Pressure 141/73 Blood Pressure 145/55 [Right Arm] O2 Sat by Pulse 100 98 Oximetry (%) GENERAL: Awake, alert, and fully oriented to person, place, date/day/month/year/ president, situation in no acute distress. HEAD: Normal with no signs of trauma. EYES: Pupils equal, round and reactive to light, extraocular movements intact, sclera anicteric, conjunctiva clear. No lid lag. EARS, NOSE, THROAT: oropharynx clear without exudates. Moist mucous membranes. NECK: Normal range of motion, supple without lymphadenopathy, JVD, or masses. LUNGS: Breath sounds equal, clear to auscultation bilaterally. No wheezes, and no crackles. No accessory muscle use. HEART: Regular rate and rhythm, normal S1 and S2 with murmur heard best at apex ABDOMEN: Soft, nontender, not distended, normoactive bowel sounds, no guarding, no rebound, no masses. No hepatomegaly or splenomegaly. MUSCULOSKELETAL: Normal range of motion at all joints. No bony deformities or tenderness. No CVA tenderness. UPPER EXTREMITIES: 2+ radial pulses, warm, well-perfused. No cyanosis. No clubbing. No peripheral edema. left upper arm with av fistula with palpable thrill and +bruit LOWER EXTREMITIES: 2+ dp pulses, warm, well-perfused. No calf tenderness. No peripheral edema. calf muscular atrophy. b/l heels with foul smelling dark eschars with surrounding 2cm erythema, very tender to palpitation. no expressable drainage, socks soaked with serosangiounous fluid. NEUROLOGICAL: Cranial nerves II-XII intact. Normal speech. facial symmetry PSYCHIATRIC: Cooperative. Good eye contact. Appropriate mood and affect. SKIN: Warm, dry, normal turgor, no rashes or lesions noted, normal capillary refill. Laboratory Results - last 24 hr 03/28/18 03/28/18 03/28/18 22:22 22:22 22:22 WBC 10.7 H RBC 2.47 L Hgb 8.4 L Hct 23.5 L D MCV 95.3 MCH 33.9 H MCHC 35.6 RDW 14.7 D Plt Count 232 MPV 6.2 L Absolute Neuts (auto) 8.3 H Neutrophils % 77.6 Lymphocytes % 8.8 D Monocytes % 11.4 H Eosinophils % 1.6 D Basophils % 0.6 Nucleated RBC % 0 PT with INR 13.60 H INR 1.20 H Sodium 138 Potassium 3.6 Chloride 99 Carbon Dioxide 28 Anion Gap 11 BUN 58 H Creatinine 4.6 H Creat Clearance w eGFR 12.62 Random Glucose 283 H D Calcium 8.0 L Magnesium 1.9 Total Bilirubin 0.2 AST 18 D ALT 16 Alkaline Phosphatase 105 Creatine Kinase 107 Troponin I 0.19 H Total Protein 6.5 Albumin 2.6 L Active Medications Amlodipine Besylate (Norvasc -) 10 mg PO DAILY [facility] Artificial Tears (Artificial Tears) 1 drop OU BID PRN PRN Reason: DRY EYES Aspirin (Ecotrin -) 81 mg PO DAILY [facility] Atorvastatin Calcium (Lipitor -) 40 mg PO HS [facility] Calcium Acetate (Phoslo -) 667 mg PO TIDCM [facility] Carvedilol (Coreg -) 12.5 mg PO BID [facility] Citalopram Hydrobromide (Celexa -) 20 mg PO DAILY [facility] Clopidogrel Bisulfate (Plavix -) 75 mg PO DAILY [facility] Collagenase (Santyl -) 1 applic TP DAILY [facility]; Protocol Divalproex Sodium (Depakote -) 125 mg PO BID [facility] Docusate Sodium (Colace -) 300 mg PO HS [facility] Folic Acid (Folic Acid -) 1 mg PO DAILY [facility] Gabapentin (Neurontin -) 100 mg PO TID [facility] Haloperidol (Haldol -) 2 mg PO HS [facility] Insulin Aspart (Novolog Vial Sliding Scale -) 1 vial SQ ACHS [facility]; Protocol Lorazepam (Ativan -) 0.5 mg PO ASDIR [facility] Last Admin: 03/29/18 05:04 Dose: Not Given Mirtazapine (Remeron -) 15 mg PO HS [facility] Multivitamins (Total B With C -) 1 each PO DAILY [facility] Non-Formulary Medication (Zinc Oxide 20% Topical Oint) 454 gm NR ASDIR [facility] Last Admin: 03/29/18 05:00 Dose: Not Given Ranitidine HCl (Zantac -) 150 mg PO DAILY [facility] Tamsulosin HCl (Flomax -) 0.4 mg PO HS [facility] ASSESSMENT/PLAN: 72 yr old man with multiple co-morbidities presents s/p fall at OR admitted for further evaluation. #fall - concern for syncope, vs mechanical fall - further evaluation for intracranial cause with brain MRI - cardiovascular eval with orthostatic vitals, carotid doppler - recent echo in 12/2017 - telemetry monitoring - discuss with nephrology regarding last HCT count during last dialysis, current HCT has dropped significantly since previous admission, possible syncope is from anemia, or more volume removal during dialysis. #b/l heel ulcers - podiatry and ID consult for evaluation of abx treatment and debridement - monitor off abx for now #ESRD on MWF HD - dr. Donovan consulted for dialysis treatment #chronic anemia - on epogen # continue home medications for HTN, DM - check A1c, as per previous admission, liberal control of DM due to episode of hypoglycemia, NISS coverage starts at 200 - BGM and NISS ACHS Visit type - Emergency Visit Emergency Visit: Yes ED Registration Date: 03/29/18 Care time: The patient presented to the Emergency Department on the above date and was hospitalized for further evaluation of their emergent condition. - New Patient This patient is new to me today: Yes Date on this admission: 03/29/18 - Critical Care Critical Care patient: No Hospitalist Screening - Colonoscopy Questionnaire Colonoscopy Questionnaire: Colonoscopy Questionnaire - Patient: 50 - 75 years old and never had a screening colonoscopy: Unknown History of colon or rectal polyps, or CA: Unknown History of IBD, Crohn's disease or UC: Unknown History of abdominal radiation therapy as a child: Unknown - Relative: 1 with colon or rectal CA, or polyps at age 60 or younger: Unknown Colon or rectal CA diagnosed at age 45 or younger: Unknown Multiple relatives with colon or rectal CA: Unknown - Outcome: Screening Result: Negative Screen
[2018-03-29] MEDS ORDERED: ARTIFICIAL TEARS (POLYVINYL ALCOHOL) OPTH DROPS OU PRN (04:59)
[2018-03-29] MEDS ORDERED: GABAPENTIN 100 MG CAPSULE (FP) ONE (06:31)
[2018-03-29 06:33] LABS: BASO % 0.6 % (0-2.0); HEMATOCRIT 23.1 % (35.4-49); HEMOGLOBIN 7.9 GM/dL (11.7-16.9); LYMPH % 7.1 % (8-40); MCH 32.7 pg (25.7-33.7); MCHC 34.3 g/dl (32.0-35.9); MEAN CELL VOLUME 95.6 fl (80-96); MEAN PLT VOLUME 6.1 fl (7.5-11.1); MONO % 9.5 % (3.8-10.2); NEUT % 81.8 % (42.8-82.8); PLATELET COUNT 218 K/MM3 (134-434); RBC 2.42 M/mm3 (4.00-5.60); RDW 14.6 % (11.9-15.9); WHITE BLOOD COUNT 13.3 K/mm3 (4.0-10.0)
[2018-03-29] MEDS: GABAPENTIN 100 MG CAPSULE (FP) PO SCH ×3 (06:41→23:02)
[2018-03-29 06:55] LABS: ANION GAP 10 MMOL/L (8-16); BLOOD UREA NITROGEN 62 mg/dL (7-18); CALCIUM 8.2 mg/dL (8.5-10.1); CHLORIDE 100 mmol/L (98-107); CO2 28 mmol/L (21-32); GLUCOSE,RANDOM 246 mg/dL (74-106); MAGNESIUM 1.9 mg/dL (1.8-2.4); POTASSIUM 3.8 mmol/L (3.5-5.1); SODIUM 138 mmol/L (136-145)
[2018-03-29 06:56] LABS: CREATININE 4.7 mg/dL (0.7-1.3)
[2018-03-29] MEDS ORDERED: INSULIN (NOVOLOG) ASPART 100 UNITS/ML 10ML VIAL ONE ×2 (09:39→12:02)
[2018-03-29] MEDS: INSULIN SLIDING SCALE (NOVOLOG) 1 VIAL SQ SCH ×4 (09:41→23:41)
[2018-03-29] MEDS: CALCIUM ACETATE 667 MG CAPSULE (FP) PO SCH ×3 (09:42→17:42)
[2018-03-29] MEDS: CARVEDILOL 12.5 MG TABLET (FP) PO SCH ×2 (09:42→23:02)
[2018-03-29] MEDS: CLOPIDOGREL BISULFATE 75 MG TABLET (FP) PO SCH (09:42)
[2018-03-29] MEDS: ASPIRIN COATED 81 MG TABLET.EC PO SCH (09:43)
[2018-03-29] MEDS: FOLIC ACID 1 MG TABLET (FP) PO SCH (09:43)
[2018-03-29] MEDS: amLODIPine BESYLATE 10 MG TABLET (FP) PO SCH (09:43)
[2018-03-29] MEDS: DIVALPROEX SODIUM 125 MG TABLET E.C. PO SCH ×2 (09:43→23:02)
[2018-03-29] MEDS: RANITIDINE HCL 150 MG TABLET (FP) PO SCH (09:43)
[2018-03-29] MEDS: CITALOPRAM HYDROBROMIDE 20 MG TABLET (FP) PO SCH (09:43)
[2018-03-29] MEDS: VITAMIN B COMPLEX W/C COMBO TABLET (FP) PO SCH (09:43)
[2018-03-29] MEDS: COLLAGENASE CLOSTRIDIUM HIST. 30 GRAMS TUBE TP SCH (11:24)
[2018-03-29] MEDS: ZINC OXIDE 20% TOPICAL OINTMENT 454 GM JAR TP SCH (11:25)
--- NOTE | 2018-03-29 12:00 | EKG ---
Test Reason : Blood Pressure : / mmHG Vent. Rate : 072 BPM Atrial Rate : 072 BPM P-R Int : 180 ms QRS Dur : 108 ms QT Int : 418 ms P-R-T Axes : 063 -11 106 degrees QTc Int : 457 ms NORMAL SINUS RHYTHM LEFT VENTRICULAR HYPERTROPHY WITH REPOLARIZATION ABNORMALITY CANNOT RULE OUT SEPTAL INFARCT (CITED ON OR BEFORE 17-FEB-2018) ABNORMAL ECG WHEN COMPARED WITH ECG OF 17-FEB-2018 10:18, COMPARED TO EKG NO SIGNIFICANT CHANGE IS FOUND Confirmed by SCOOTER REICH MD ([id number]) on 03/29/2018 12:00:18 PM Referred By: Confirmed By:SCOOTER REICH MD
--- NOTE | 2018-03-29 12:07 | PN ---
Progress Note (short form) - Note Progress Note: ID consult dictated imp/reccd s/p fall low grade fever infected heel ulcers blood cultures now podiatry to see vancomycin one dose zosyn Problem List - Problems (1) Fever Code(s): R50.9 - FEVER, UNSPECIFIED (2) Infected pressure ulcer Code(s): L89.90 - PRESSURE ULCER OF UNSPECIFIED SITE, UNSPECIFIED STAGE; L08.9 - LOCAL INFECTION OF THE SKIN AND SUBCUTANEOUS TISSUE, UNSP (3) ESRD (end stage renal disease) on dialysis Code(s): N18.6 - END STAGE RENAL DISEASE; Z99.2 - DEPENDENCE ON RENAL DIALYSIS (4) Diabetes Code(s): E11.9 - TYPE 2 DIABETES MELLITUS WITHOUT COMPLICATIONS
[2018-03-29] MEDS ORDERED: PIPERACILLIN/TAZOBACTAM 2.25 GM VIAL IVPB ONE ×2 (12:18→18:04)
[2018-03-29] MEDS: PIPERACILLIN/TAZOB 2.25 GM 2.25 GM in DEXTROSE 5%-WATER - 50 ML IVPB SCH ×2 (12:29→18:07)
[2018-03-29] MEDS ORDERED: VANCOMYCIN 1 GRAM (PRE-DOCKED) 1,000 MG/250 ML BAG IVPB ONE (12:50)
[2018-03-29] MEDS ORDERED: VANCOMYCIN 1 GM PREMIX - 1 GM/200 ML BAG IVPB ONE (13:00)
--- NOTE | 2018-03-29 14:05 | CONS ---
DATE OF CONSULTATION: 03/29/2018 HISTORY OF PRESENT ILLNESS: This is a 72-year-old man currently residing at the [facility] with a past medical history of hypertension, diabetes, end-stage renal disease on dialysis via a left arm fistula. He is an extremely poor historian. He does report that he lives at the [facility]. He apparently was sitting on the edge of his bed to eat dinner and he lost his hold on the bed and fell. He presented to the emergency room after this fall, and he was admitted for possible syncope, telemetry monitoring. He also complained that his heels hurt and he was noted to have bilateral heel ulcers for which I have been asked to see him. He is unable to tell me how long he has the ulcers on his heels. Looking back, he as recently in the hospital last month, and there is no documentation that I can tell from that time he was here that he had ulcers. PAST MEDICAL HISTORY: Notable for history of coronary artery disease, end-stage renal disease, diabetes, coronary artery disease, PAD, hypercholesterolemia, chronic back pain, constipation, anemia. He has a history of GI bleed and CHF. SURGICAL HISTORY: Includes CABG over 25 years ago. He has had a laminectomy. He has a left arm fistula. SOCIAL HISTORY: There is no history of any cigarette or substance use. ALLERGIES: He is allergic to ACETAMINOPHEN, PERCOCET, and OXYCODONE. MEDICATIONS: Include Coreg, Flomax, amlodipine, aspirin, Lipitor, Depakote, he has been getting Santyl to his heels, Colace, folic acid, Haldol, insulin, Plavix, artificial tears, famotidine, Neurontin, Ativan, Remeron, vitamin B, and zinc oxide. REVIEW OF SYSTEMS: He currently has no complaints whatsoever. He is really unable to explain why he has been admitted to the hospital. PHYSICAL EXAMINATION General: He is an elderly man. He is lying flat in bed without any shortness of breath. Vital signs: His maximum temperature is 99.8, his current temp, pulse is 61, blood pressure 143/51, respiratory rate 17, he is saturating 97%. HEENT: He is normocephalic. His eyes are anicteric. Neck: Supple. Lungs: Clear to auscultation. Heart: Regular rate and rhythm. Abdomen: Soft, nontender. Extremities: Notable for a wrapped left AV fistula, and on both heels, he has necrotic heel ulcers that have some serous drainage with some surrounding erythema. DIAGNOSTIC DATA: Labs are notable for a white count of 13.3, hemoglobin 7.9, and platelets of 218. His hemoglobin A1c is 6.9. LFTs are normal. Troponin is positive at 0.34. Urinalysis is negative. Cultures of his feet are pending. Chest x-ray is negative for infiltrates. He had a head CT and cervical spine CT that showed extensive paranasal sinus disease. He has no evidence of any fracture. SUMMARY: 1. This is an elderly man with diabetes, coronary artery disease, peripheral artery disease, admitted status post fall from his bed with bilateral heel ulcers. He has low-grade fever for which I would suggest we obtain blood cultures. Given the leukocytosis and fever, after blood cultures, would suggest we treat him for the heel ulcers as they appear necrotic and foul-smelling with some drainage and are most likely infected. He will need to be seen by Podiatry for debridement. 2. Status post fall. 3. History of end-stage renal disease, on dialysis. 4. Positive troponins. Further recommendations to follow. Connor [id number]
--- NOTE | 2018-03-29 15:07 | CONSULT ---
Consult Consult Specialty:: Nephrology Reason for Consultation:: ESRD - History of Present Illness Chief Complaint: sent in for hypoglycemia and syncope History of Present Illness: Pt is a 72 year old male with pmhx of HTN, DM, CAD, CABG, and ESRD who was sent in from the [place] for an episode of hypoglycemia and syncope. He is now awake and alert. His mental status is at baseline. He denies shortness of breath or palpitations. He denies fevers or chills. He is on a MWF HD schedule. His last dialysis session was on Sunday. He is due for HD today. He denies chest pain. - History Source History Provided By: Patient - Past Medical History Cardio/Vascular: Yes: CAD, CHF, HTN, SD, Hyperlipdemia Gastrointestinal: Yes: Constipation, GI Bleed Renal/: Yes: Renal Inusuff, Hemodialysis (M/W/F), Neurogenic Bladder Endocrine: Yes: Diabetes Mellitus - Past Surgical History Past Surgical History: Yes: AV Fistula/Graft, Bypass, CABG, Hernia Repair, Laminectomy, Stent - Alcohol/Substance Use Hx Alcohol Use: No History of Substance Use: reports: None - Smoking History Smoking history: Unknown if ever smoked Have you smoked in the past 12 months: No If you are a former smoker, when did you quit?: 30YRS - Social History Usual Living Arrangement: Prison ADL: Support Services History of Recent Travel: No Home Medications - Allergies Allergies/Adverse Reactions: Allergies Allergy/AdvReac Type Severity Reaction Status Date / Time acetaminophen [From Percocet] Allergy Mild Hives Verified 03/28/18 20:49 oxycodone [From Percocet] Allergy Mild Hives Verified 03/28/18 20:49 - Home Medications Home Medications: Ambulatory Orders Carvedilol [Coreg -] 12.5 mg PO BID #60 tablet 12/18/17 Tamsulosin HCl [Flomax -] 0.4 mg PO HS #30 cap.er.24h 12/18/17 Amlodipine Besylate 10 mg PO DAILY 02/17/18 Aspirin [Adult Aspirin] 81 mg PO DAILY 02/17/18 Atorvastatin Ca [Lipitor] 40 mg PO HS 02/17/18 Collagenase Clostridium Hist. [Santyl -] 1 applic TP DAILY 02/17/18 Divalproex [Depakote -] 125 mg PO BID 02/17/18 Docusate Sodium 300 mg PO HS 02/17/18 Folic Acid 1 mg PO DAILY 02/17/18 Haloperidol 2 mg PO HS 02/17/18 Insulin Glargine,Hum.rec.anlog [Lantus Solostar] 10 unit SQ HS 02/17/18 Calcium Acetate [Phoslo -] 667 mg PO TIDCM 03/28/18 Citalopram Hydrobromide [Celexa -] 20 mg PO DAILY 03/28/18 Clopidogrel Bisulfate [Plavix -] 75 mg PO DAILY 03/28/18 Dextran 70/Hypromellose/Pf [Artificial Tears Drops] 1 each OU BID PRN 03/28/18 Famotidine 20 mg PO DAILY 03/28/18 Gabapentin [Neurontin -] 100 mg PO Q8H 03/28/18 Insulin Lispro [Humalog] unit SQ BID 03/28/18 LORazepam [Ativan] 0.5 mg PO ASDIR 03/28/18 Mirtazapine [Remeron -] 15 mg PO HS 03/28/18 Vitamin B Complex [Balance B-50] 1 each PO DAILY 03/28/18 Zinc Oxide 20% Topical Oint 454 gm NR ASDIR 03/28/18 Family Disease History - Family Disease History Family Disease History: CA: Mother, Sister Review of Systems - Review of Systems Constitutional: reports: Malaise Eyes: reports: No Symptoms HENT: reports: No Symptoms Neck: reports: No Symptoms Cardiovascular: reports: Other (syncope) Gastrointestinal: reports: Constipation Genitourinary: reports: No Symptoms Musculoskeletal: reports: No Symptoms Integumentary: reports: No Symptoms Endocrine: reports: Other (hypoglycemia) Physical Exam Vital Signs: Vital Signs Temperature 99.8 F H 03/29/18 08:00 Pulse Rate 71 03/29/18 09:55 Respiratory Rate 18 03/29/18 09:55 Blood Pressure 150/61 03/29/18 09:55 O2 Sat by Pulse Oximetry (%) 97 03/29/18 09:55 Constitutional: Yes: Calm Eyes: Yes: Conjunctiva Clear HENT: Yes: Atraumatic Neck: Yes: Supple Cardiovascular: Yes: S1, S2 Respiratory: Yes: CTA Bilaterally Gastrointestinal: Yes: Soft Renal/: Yes: WNL Musculoskeletal: Yes: WNL Edema: Yes Edema: LLE: Trace, RLE: Trace Neurological: Yes: Oriented Psychiatric: Yes: Oriented Labs: CBC, BMP 03/29/18 06:15 03/29/18 06:15 Laboratory Tests 03/28/18 03/28/18 03/29/18 22:22 22:22 06:15 WBC 10.7 H 13.3 H Hgb 8.4 L 7.9 L BUN 58 H Creatinine 4.6 H Troponin I 0.19 H 03/29/18 03/29/18 06:15 06:15 WBC Hgb BUN 62 H Creatinine 4.7 H Troponin I 0.34 H D Imaging - Results Chest X-ray: Report Reviewed Problem List - Problems (1) Diabetes Code(s): E11.9 - TYPE 2 DIABETES MELLITUS WITHOUT COMPLICATIONS (2) ESRD (end stage renal disease) on dialysis Code(s): N18.6 - END STAGE RENAL DISEASE; Z99.2 - DEPENDENCE ON RENAL DIALYSIS (3) Syncope Code(s): R55 - SYNCOPE AND COLLAPSE (4) Anemia Code(s): D64.9 - ANEMIA, UNSPECIFIED Assessment/Plan Current Medications Generic Name Dose Route Start Last Admin Trade Name Freq PRN Reason Stop Dose Admin Amlodipine Besylate 10 mg 03/29/18 10:00 03/29/18 09:43 Norvasc - PO 10 mg DAILY ROSIE Administration Artificial Tears 1 drop 03/29/18 04:59 Artificial Tears OU BID PRN DRY EYES Aspirin 81 mg 03/29/18 10:00 03/29/18 09:43 Ecotrin - PO 81 mg DAILY ROSIE Administration Atorvastatin Calcium 40 mg 03/29/18 22:00 Lipitor - PO HS ROSIE Calcium Acetate 667 mg 03/29/18 08:00 03/29/18 12:05 Phoslo - PO 667 mg TIDCM ROSIE Administration Carvedilol 12.5 mg 03/29/18 10:00 03/29/18 09:42 Coreg - PO 12.5 mg BID ROSIE Administration Citalopram Hydrobromide 20 mg 03/29/18 10:00 03/29/18 09:43 Celexa - PO 20 mg DAILY ROSIE Administration Clopidogrel Bisulfate 75 mg 03/29/18 10:00 03/29/18 09:42 Plavix - PO 75 mg DAILY ROSIE Administration Collagenase 1 applic 03/29/18 10:00 03/29/18 11:24 Santyl - TP Not Given DAILY [facility] Protocol Divalproex Sodium 125 mg 03/29/18 10:00 03/29/18 09:43 Depakote - PO 125 mg BID ROSIE Administration Docusate Sodium 300 mg 03/29/18 22:00 Colace - PO HS [facility] Folic Acid 1 mg 03/29/18 10:00 03/29/18 09:43 Folic Acid - PO 1 mg DAILY ROSIE Administration Gabapentin 100 mg 03/29/18 06:00 03/29/18 06:41 Neurontin - PO 100 mg TID ROSIE Administration Haloperidol 2 mg 03/29/18 22:00 Haldol - PO HS [facility] Piperacillin Sod/Tazobactam 50 mls @ 100 mls/hr 03/29/18 12:15 03/29/18 12:29 Sod 2.25 gm/ Dextrose IVPB 100 mls/hr Q8H-IV RSOIE Administration Protocol Insulin Aspart 1 vial 03/29/18 07:00 03/29/18 12:45 Novolog Vial Sliding Scale - SQ 4 unit ACHS [facility] Administration Protocol Mirtazapine 15 mg 03/29/18 22:00 Remeron - PO [facility] Multi-Ingredient Ointment 1 gm 03/29/18 10:00 03/29/18 11:25 Zinc Oxide 20% Topical Oint TP Not Given DAILY [facility] Multivitamins 1 each 03/29/18 10:00 03/29/18 09:43 Total B With C - PO 1 each DAILY [facility] Administration Ranitidine HCl 150 mg 03/29/18 10:00 03/29/18 09:43 Zantac - PO 150 mg DAILY [facility] Administration Tamsulosin HCl 0.4 mg 03/29/18 22:00 Flomax - PO HS [facility] Impression 1. ESRD 2. anemia 3. HTN 4. Chol 5. DM 6. BPH 7. CAD 8. hypoglycemia 9. CHF 10. syncope 11. depression Plan - will arrange for HD today - monitor blood sugar - monitor vitals - epogen for anemia - monitor hg Dr Donovan
[2018-03-29] MEDS ORDERED: EPOETIN ALFA 10,000 UNIT/1 ML VIAL IVPUSH ONE (15:10)
[2018-03-29] MEDS ORDERED: SODIUM CHLORIDE 250 ML IV PRN (15:10)
[2018-03-29] MEDS ORDERED: DEXTROSE 5%-WATER - 50 ML IVPB ONE (18:04)
[2018-03-29] MEDS ORDERED: EPOETIN ALFA 6,000 UNIT, EPOETIN ALFA 2,000 UNIT IVPUSH ONE (20:30)
[2018-03-29] MEDS ORDERED: HALOPERIDOL 2 MG TABLET PO SCH (22:00)
[2018-03-29] MEDS ORDERED: PT OWN MED DRAWER 7, Y5N ONE ×2 (23:00→23:04)
[2018-03-29] MEDS: ATORVASTATIN CA 40 MG TABLET (FP) PO SCH (23:02)
[2018-03-29] MEDS: TAMSULOSIN HCL 0.4 MG CAP.ER.24H (FP) PO SCH (23:02)
[2018-03-29] MEDS: DOCUSATE SODIUM 100 MG CAPSULE (FP) PO SCH (23:02)
[2018-03-29] MEDS: MIRTAZAPINE 15 MG TABLET (FP) PO SCH (23:02)
[2018-03-29] MEDS: HALOPERIDOL 1 MG TABLET (FP) PO SCH (23:44)
[2018-03-30] MEDS: PIPERACILLIN/TAZOB 2.25 GM 2.25 GM in DEXTROSE 5%-WATER - 50 ML IVPB SCH ×3 (02:45→18:27)
[2018-03-30] MEDS ORDERED: PIPERACILLIN/TAZOBACTAM 2.25 GM VIAL IVPB ONE ×3 (02:53→18:22)
[2018-03-30] MEDS ORDERED: DEXTROSE 5%-WATER - 50 ML IVPB ONE ×3 (02:53→18:23)
[2018-03-30] MEDS: GABAPENTIN 100 MG CAPSULE (FP) PO SCH ×3 (06:29→22:54)
[2018-03-30] MEDS: INSULIN SLIDING SCALE (NOVOLOG) 1 VIAL SQ SCH ×4 (06:35→23:10)
[2018-03-30] MEDS: COLLAGENASE CLOSTRIDIUM HIST. 30 GRAMS TUBE TP SCH (10:00)
[2018-03-30] MEDS: amLODIPine BESYLATE 10 MG TABLET (FP) PO SCH (10:38)
[2018-03-30] MEDS: CARVEDILOL 12.5 MG TABLET (FP) PO SCH ×2 (10:38→22:54)
[2018-03-30] MEDS: VITAMIN B COMPLEX W/C COMBO TABLET (FP) PO SCH (10:38)
[2018-03-30] MEDS: ASPIRIN COATED 81 MG TABLET.EC PO SCH (10:38)
[2018-03-30] MEDS: FOLIC ACID 1 MG TABLET (FP) PO SCH (10:38)
[2018-03-30] MEDS: CALCIUM ACETATE 667 MG CAPSULE (FP) PO SCH ×3 (10:38→18:27)
[2018-03-30] MEDS: CLOPIDOGREL BISULFATE 75 MG TABLET (FP) PO SCH (10:38)
[2018-03-30] MEDS: CITALOPRAM HYDROBROMIDE 20 MG TABLET (FP) PO SCH (10:38)
[2018-03-30] MEDS: RANITIDINE HCL 150 MG TABLET (FP) PO SCH (10:38)
[2018-03-30] MEDS: DIVALPROEX SODIUM 125 MG TABLET E.C. PO SCH (10:39)
[2018-03-30] MEDS: ZINC OXIDE 20% TOPICAL OINTMENT 454 GM JAR TP SCH (10:40)
--- NOTE | 2018-03-30 13:51 | PN ---
Progress Note, Physician History of Present Illness: pt seen/ examined chart reviewed awake/ comfortable no distress chronic ill appearance at bedside Vital Signs Temp 98.2 F 03/29/18 17:00 Pulse 81 03/30/18 06:00 Resp 18 03/30/18 06:00 BP 122/49 03/30/18 06:00 Pulse Ox 97 03/29/18 16:00 Intake & Output 03/29/18 03/30/18 03/30/18 23:59 11:59 23:59 Intake Total 240 Balance 240 Weight 143 lb 8 oz Intake: Oral 240 Other: Voiding Method Diaper Incontinent # Unmeasured Voids Void 1 1 Bowel Movement Yes # Bowel Movements 1 Height 5 ft 4 in Body Mass Index (BMI) 24.6 Active Medications Amlodipine Besylate (Norvasc -) 10 mg PO DAILY [facility] Last Admin: 03/30/18 10:38 Dose: 10 mg Artificial Tears (Artificial Tears) 1 drop OU BID PRN PRN Reason: DRY EYES Aspirin (Ecotrin -) 81 mg PO DAILY [facility] Last Admin: 03/30/18 10:38 Dose: 81 mg Atorvastatin Calcium (Lipitor -) [address] [facility] Last Admin: 03/29/18 23:02 Dose: 40 mg Calcium Acetate (Phoslo -) 667 mg PO TIDCM [facility] Last Admin: 03/30/18 10:38 Dose: 667 mg Carvedilol (Coreg -) 12.5 mg PO BID [facility] Last Admin: 03/30/18 10:38 Dose: 12.5 mg Citalopram Hydrobromide (Celexa -) 20 mg PO DAILY [facility] Last Admin: 03/30/18 10:38 Dose: 20 mg Clopidogrel Bisulfate (Plavix -) 75 mg PO DAILY [facility] Last Admin: 03/30/18 10:38 Dose: 75 mg Collagenase (Santyl -) 1 applic TP DAILY [facility]; Protocol Last Admin: 03/29/18 11:24 Dose: Not Given Divalproex Sodium (Depakote -) 125 mg PO BID [facility] Last Admin: 03/30/18 10:39 Dose: 125 mg Docusate Sodium (Colace -) 300 mg PO HS [facility] Last Admin: 03/29/18 23:02 Dose: 300 mg Folic Acid (Folic Acid -) 1 mg PO DAILY [facility] Last Admin: 03/30/18 10:38 Dose: 1 mg Gabapentin (Neurontin -) 100 mg PO TID [facility] Last Admin: 03/30/18 06:29 Dose: 100 mg Haloperidol (Haldol -) 2 mg PO HS [facility] Last Admin: 03/29/18 23:44 Dose: 2 mg Piperacillin Sod/Tazobactam (Sod 2.25 gm/ Dextrose) 50 mls @ 100 mls/hr IVPB Q8H-IV ROSIE; Protocol Last Admin: 03/30/18 10:39 Dose: 100 mls/hr Sodium Chloride (Normal Saline -) 250 mls @ 3,000 mls/hr IV PRN PRN PRN Reason: Hypotension during Dialysis Stop: 03/30/18 15:10 Insulin Aspart (Novolog Vial Sliding Scale -) 1 vial SQ [facility]; Protocol Last Admin: 03/30/18 06:35 Dose: 4 unit Insulin Detemir (Levemir Vial) 6 units SQ HS [facility] Mirtazapine (Remeron -) 15 mg PO HS [facility] Last Admin: 03/29/18 23:02 Dose: 15 mg Multi-Ingredient Ointment (Zinc Oxide 20% Topical Oint) 1 gm TP DAILY [facility] Last Admin: 03/30/18 10:40 Dose: 1 applic Multivitamins (Total B With C -) 1 each PO DAILY [facility] Last Admin: 03/30/18 10:38 Dose: 1 each Ranitidine HCl (Zantac -) 150 mg PO DAILY [facility] Last Admin: 03/30/18 10:38 Dose: 150 mg Tamsulosin HCl (Flomax -) 0.[address] [facility] Last Admin: 03/29/18 23:02 Dose: 0.4 mg CBC, BMP 03/29/18 06:15 03/29/18 06:15 Hepatic Panel Total Bilirubin 0.2 mg/dL (0.2-1.0) 03/28/18 22:22 AST 18 U/L (15-37) D 03/28/18 22:22 ALT 16 U/L (12-78) 03/28/18 22:22 Alkaline Phosphatase 105 U/L (45-117) 03/28/18 22:22 Albumin 2.6 g/dl (3.4-5.0) L 03/28/18 22:22 Microbiology 03/29/18 12:56 Blood Culture - Preliminary Blood - Peripheral Venous NO GROWTH OBTAINED AFTER 24 HOURS, INCUBATION TO CONTINUE FOR 4 DAYS. 03/29/18 07:44 Gram Stain - Final Foot - Right Heel Wound Culture - Preliminary Presumptive Mssa (Pbp2a Neg) Non Lactose Fermenting Gnb 03/29/18 07:44 Gram Stain - Final Foot - Left Heel Wound Culture - Preliminary Presumptive Mssa (Pbp2a Neg) Non Lactose Fermenting Gnb 03/29/18 11:56 Blood Culture - Preliminary Blood - Peripheral Venous NO GROWTH OBTAINED AFTER 24 HOURS, INCUBATION TO CONTINUE FOR 4 DAYS. - Current Medication List Current Medications: Active Medications Amlodipine Besylate (Norvasc -) 10 mg PO DAILY [facility] Last Admin: 03/30/18 10:38 Dose: 10 mg Artificial Tears (Artificial Tears) 1 drop OU BID PRN PRN Reason: DRY EYES Aspirin (Ecotrin -) 81 mg PO DAILY [facility] Last Admin: 03/30/18 10:38 Dose: 81 mg Atorvastatin Calcium (Lipitor -) 40 mg PO HS [facility] Last Admin: 03/29/18 23:02 Dose: 40 mg Calcium Acetate (Phoslo -) 667 mg PO TIDCM [facility] Last Admin: 03/30/18 10:38 Dose: 667 mg Carvedilol (Coreg -) 12.5 mg PO BID [facility] Last Admin: 03/30/18 10:38 Dose: 12.5 mg Citalopram Hydrobromide (Celexa -) 20 mg PO DAILY [facility] Last Admin: 03/30/18 10:38 Dose: 20 mg Clopidogrel Bisulfate (Plavix -) 75 mg PO DAILY [facility] Last Admin: 03/30/18 10:38 Dose: 75 mg Collagenase (Santyl -) 1 applic TP DAILY [facility]; Protocol Last Admin: 03/29/18 11:24 Dose: Not Given Divalproex Sodium (Depakote -) 125 mg PO BID [facility] Last Admin: 03/30/18 10:39 Dose: 125 mg Docusate Sodium (Colace -) 300 mg PO HS [facility] Last Admin: 03/29/18 23:02 Dose: 300 mg Folic Acid (Folic Acid -) 1 mg PO DAILY [facility] Last Admin: 03/30/18 10:38 Dose: 1 mg Gabapentin (Neurontin -) 100 mg PO TID [facility] Last Admin: 03/30/18 06:29 Dose: 100 mg Haloperidol (Haldol -) 2 mg PO HS [facility] Last Admin: 08/24/18 23:44 Dose: 2 mg Piperacillin Sod/Tazobactam (Sod 2.25 gm/ Dextrose) 50 mls @ 100 mls/hr IVPB Q8H-IV [facility]; Protocol Last Admin: 03/30/18 10:39 Dose: 100 mls/hr Sodium Chloride (Normal Saline -) 250 mls @ 3,000 mls/hr IV PRN PRN PRN Reason: Hypotension during Dialysis Stop: 03/30/18 15:10 Insulin Aspart (Novolog Vial Sliding Scale -) 1 vial SQ [facility]; Protocol Last Admin: 03/30/18 06:35 Dose: 4 unit Insulin Detemir (Levemir Vial) [address] [facility] Mirtazapine (Remeron -) [address] [facility] Last Admin: 03/29/18 23:02 Dose: 15 mg Multi-Ingredient Ointment (Zinc Oxide 20% Topical Oint) 1 gm TP DAILY [facility] Last Admin: 03/30/18 10:40 Dose: 1 applic Multivitamins (Total B With C -) 1 each PO DAILY [facility] Last Admin: 03/30/18 10:38 Dose: 1 each Ranitidine HCl (Zantac -) 150 mg PO DAILY [facility] Last Admin: 03/30/18 10:38 Dose: 150 mg Tamsulosin HCl (Flomax -) 0.[address] [facility] Last Admin: 03/29/18 23:02 Dose: 0.4 mg - Objective Vital Signs: Vital Signs Temperature 98.2 F 03/29/18 17:00 Pulse Rate 81 03/30/18 06:00 Respiratory Rate 18 03/30/18 06:00 Blood Pressure 122/49 03/30/18 06:00 O2 Sat by Pulse Oximetry (%) 97 03/29/18 16:00 Constitutional: Yes: No Distress, Calm Neck: Yes: Supple Cardiovascular: Yes: Regular Rate and Rhythm Respiratory: Yes: Diminished Gastrointestinal: Yes: Soft Edema: No Wound/Incision: Yes: Dressing Dry and Intact Neurological: Yes: Alert Psychiatric: Yes: Alert Labs: CBC, BMP 03/29/18 06:15 03/29/18 06:15 INR, PTT INR 1.20 (0.83-1.09) H 03/28/18 22:22 Problem List - Problems (1) Diabetes Code(s): E11.9 - TYPE 2 DIABETES MELLITUS WITHOUT COMPLICATIONS (2) ESRD (end stage renal disease) on dialysis Code(s): N18.6 - END STAGE RENAL DISEASE; Z99.2 - DEPENDENCE ON RENAL DIALYSIS (3) Infected pressure ulcer Code(s): L89.90 - PRESSURE ULCER OF UNSPECIFIED SITE, UNSPECIFIED STAGE; L08.9 - LOCAL INFECTION OF THE SKIN AND SUBCUTANEOUS TISSUE, UNSP (4) Syncope Code(s): R55 - SYNCOPE AND COLLAPSE (5) Acute metabolic encephalopathy due to hypoglycemia Code(s): G93.41 - METABOLIC ENCEPHALOPATHY; E16.2 - HYPOGLYCEMIA, UNSPECIFIED (6) Anemia Code(s): D64.9 - ANEMIA, UNSPECIFIED (7) CAD (coronary artery disease) Code(s): I25.10 - ATHSCL HEART DISEASE OF [place] CORONARY ARTERY W/O ANG PCTRS (8) ESRD (end stage renal disease) on dialysis Code(s): N18.6 - END STAGE RENAL DISEASE; Z99.2 - DEPENDENCE ON RENAL DIALYSIS Assessment/Plan Discussed with Discussed with i/d Abx Monitor bgm-- start on levemir Podiatry to follow consult vascular also will follow discussed with nursing staff
[2018-03-30] MEDS ORDERED: ACETAMINOPHEN 325 MG TABLET (FP) PO PRN (13:55)
[2018-03-30] MEDS ORDERED: oxyCODONE HCL 5 MG TABLET PO PRN (13:55)
--- NOTE | 2018-03-30 13:58 | CONSULT ---
Consult - text type - Consultation Consultation Note: Podiatry Consultation: Pleasant 72 year old DM, PVD M seen/evaluated at bedside with his for bilateral non-healing diabetic heel ulcers. Patient's states that the wounds have been present for months and have not progressed appropriately. He was seen by a local cargo service supervisor in [place] and management was continued in long term. Patient states that santyl was used on the wounds. He has a complicated vascular history including RLE bypass and recently angioplasty. He denies F/V/N/C/SOB/CP. Currently afebrile. PMHx: IDDM, HTN, HLP, CAD s/p CABG, PAD s/p bypass, ESRD on HD Meds: noted ALL: percocet DONY: Bilateral pedal pulses non-palpable, TG wnl, CFT brisk to all toes. There are bilateral heel diabetic ulcers, unstageable with necrotic eschar, some malodor to the right heel, no purulence, no fluctuance, no soft tissue crepitus, no streaking cellulitis, no signs of acute infection. Moderate tenderness to palpation. B/L Foot XR: no evidence of osteomyelitis, no soft tissue gas Wound Cx: MSSA WBC: 13.3 Imp: 72 year old DM, PVD M with bilateral diabetic heel ulcers 1. IV abx 2. Needs PVRs, vascular consultation 3. Recommend bone scan B/L to rule out osteomyelitis 4. Discussed treatment options with patient and his . They will consider options for now. Will follow. Thank you for the courtesy of this consultation.adi Wilson DPM
--- NOTE | 2018-03-30 14:24 | PN ---
Progress Note (short form) - Note Progress Note: alert feels lousy per , ulcers have really worsened over the last one month ambulates with walker with PT only Vital Signs Period Temp Pulse Resp BP Sys/Rodriguez Pulse Ox Last 24 Hr 98.2 F 67-98 -18 112-132/43-61 97 cor-rrr lungs clear abd soft,nt ext bilateral necrotic heel ulcers-foulsmelling CBC, BMP 03/29/18 06:15 03/29/18 06:15 Microbiology 03/29/18 12:56 Blood - Peripheral Venous Blood Culture - Preliminary NO GROWTH OBTAINED AFTER 24 HOURS, INCUBATION TO CONTINUE FOR 4 DAYS. 03/29/18 07:44 Foot - Right Heel Gram Stain - Final 03/29/18 07:44 Foot - Right Heel Wound Culture - Preliminary Presumptive Mssa (Pbp2a Neg) Non Lactose Fermenting Gnb 03/29/18 07:44 Foot - Left Heel Gram Stain - Final 03/29/18 07:44 Foot - Left Heel Wound Culture - Preliminary Presumptive Mssa (Pbp2a Neg) Non Lactose Fermenting Gnb 03/29/18 11:56 Blood - Peripheral Venous Blood Culture - Preliminary NO GROWTH OBTAINED AFTER 24 HOURS, INCUBATION TO CONTINUE FOR 4 DAYS. imp/reccd s/p fall low grade fever infected heel ulcers continue zosyn f/u cultures podiatry to see d/w dr vazquez Problem List - Problems (1) Fever Code(s): R50.9 - FEVER, UNSPECIFIED (2) Infected pressure ulcer Code(s): L89.90 - PRESSURE ULCER OF UNSPECIFIED SITE, UNSPECIFIED STAGE; L08.9 - LOCAL INFECTION OF THE SKIN AND SUBCUTANEOUS TISSUE, UNSP (3) ESRD (end stage renal disease) on dialysis Code(s): N18.6 - END STAGE RENAL DISEASE; Z99.2 - DEPENDENCE ON RENAL DIALYSIS (4) Diabetes Code(s): E11.9 - TYPE 2 DIABETES MELLITUS WITHOUT COMPLICATIONS
[2018-03-30] MEDS ORDERED: PT OWN MED DRAWER 7, Y5N ONE ×2 (21:16→22:48)
[2018-03-30] MEDS: ATORVASTATIN CA 40 MG TABLET (FP) PO SCH (22:54)
[2018-03-30] MEDS: HALOPERIDOL 1 MG TABLET (FP) PO SCH (22:54)
[2018-03-30] MEDS: TAMSULOSIN HCL 0.4 MG CAP.ER.24H (FP) PO SCH (22:54)
[2018-03-30] MEDS: HEPARIN NA (PORCINE) 5,000 UNITS/ML 1ML VIAL SQ SCH (22:54)
[2018-03-30] MEDS: MIRTAZAPINE 15 MG TABLET (FP) PO SCH (22:54)
[2018-03-30] MEDS ORDERED: INSULIN (LEVEMIR) 100 UNITS/ML UNITS SQ ONE (23:00)
[2018-03-30] MEDS: INSULIN (LEVEMIR) 100 UNITS/ML UNITS SQ SCH (23:09)
[2018-03-30] MEDS: DOCUSATE SODIUM 100 MG CAPSULE (FP) PO SCH (23:10)
[2018-03-31] MEDS: DIVALPROEX SODIUM 125 MG TABLET E.C. PO SCH ×3 (00:39→22:00)
[2018-03-31] MEDS ORDERED: PIPERACILLIN/TAZOBACTAM 2.25 GM VIAL IVPB ONE ×4 (02:32→23:58)
[2018-03-31] MEDS ORDERED: DEXTROSE 5%-WATER - 50 ML IVPB ONE ×4 (02:33→23:59)
[2018-03-31] MEDS: PIPERACILLIN/TAZOB 2.25 GM 2.25 GM in DEXTROSE 5%-WATER - 50 ML IVPB SCH ×3 (02:37→17:26)
[2018-03-31] MEDS: GABAPENTIN 100 MG CAPSULE (FP) PO SCH ×3 (05:37→21:57)
[2018-03-31] MEDS: INSULIN SLIDING SCALE (NOVOLOG) 1 VIAL SQ SCH ×4 (06:30→22:05)
[2018-03-31] MEDS: CALCIUM ACETATE 667 MG CAPSULE (FP) PO SCH ×3 (08:35→17:26)
[2018-03-31] MEDS: RANITIDINE HCL 150 MG TABLET (FP) PO SCH (09:50)
[2018-03-31] MEDS: FOLIC ACID 1 MG TABLET (FP) PO SCH (09:51)
[2018-03-31] MEDS: ASPIRIN COATED 81 MG TABLET.EC PO SCH (09:51)
[2018-03-31] MEDS: CLOPIDOGREL BISULFATE 75 MG TABLET (FP) PO SCH (09:51)
[2018-03-31] MEDS: CARVEDILOL 12.5 MG TABLET (FP) PO SCH ×2 (09:51→21:59)
[2018-03-31] MEDS: amLODIPine BESYLATE 10 MG TABLET (FP) PO SCH (09:52)
[2018-03-31] MEDS: HEPARIN NA (PORCINE) 5,000 UNITS/ML 1ML VIAL SQ SCH ×2 (09:52→22:08)
[2018-03-31] MEDS: ZINC OXIDE 20% TOPICAL OINTMENT 454 GM JAR TP SCH (09:52)
[2018-03-31] MEDS: CITALOPRAM HYDROBROMIDE 20 MG TABLET (FP) PO SCH (09:53)
[2018-03-31] MEDS: COLLAGENASE CLOSTRIDIUM HIST. 30 GRAMS TUBE TP SCH (10:00)
[2018-03-31] MEDS: VITAMIN B COMPLEX W/C COMBO TABLET (FP) PO SCH (10:49)
--- NOTE | 2018-03-31 12:37 | PN ---
Progress Note (short form) - Note Progress Note: RENAL Pt asleep comfortable Last Vital Signs Temp Pulse Resp BP Pulse Ox 97.7 F 59 L 18 99/44 99 03/31/18 10:00 03/31/18 10:00 03/31/18 10:00 03/31/18 10:00 03/31/18 09:00 lungs clear cvs s1s2 ext no edema CBC, BMP 03/29/18 06:15 03/29/18 06:15 Current Medications Generic Name Dose Route Start Last Admin Trade Name Freq PRN Reason Stop Dose Admin Acetaminophen 650 mg 03/30/18 13:55 Tylenol - PO Q6H PRN PAIN LEVEL 1-5 Amlodipine Besylate 10 mg 03/29/18 10:00 03/31/18 09:52 Norvasc - PO Not Given DAILY ROSIE Artificial Tears 1 drop 03/29/18 04:59 Artificial Tears OU BID PRN DRY EYES Aspirin 81 mg 03/29/18 10:00 03/31/18 09:51 Ecotrin - PO 81 mg DAILY ROSIE Administration Atorvastatin Calcium 40 mg 03/29/18 22:00 03/30/18 22:54 Lipitor - PO 40 mg HS ROSIE Administration Calcium Acetate 667 mg 03/29/18 08:00 03/31/18 08:35 Phoslo - PO 667 mg TIDCM ROSIE Administration Carvedilol 12.5 mg 03/29/18 10:00 03/31/18 09:51 Coreg - PO 12.5 mg BID ROSIE Administration Citalopram Hydrobromide 20 mg 03/29/18 10:00 03/31/18 09:53 Celexa - PO Not Given DAILY ROSIE Clopidogrel Bisulfate 75 mg 03/29/18 10:00 03/31/18 09:51 Plavix - PO 75 mg DAILY ROSIE Administration Collagenase 1 applic 03/29/18 10:00 03/30/18 10:00 Santyl - TP Not Given DAILY [facility] Protocol Divalproex Sodium 125 mg 03/29/18 10:00 03/31/18 10:43 Depakote - PO 125 mg BID ROSIE Administration Docusate Sodium 300 mg 03/29/18 22:00 03/30/18 23:10 Colace - PO 300 mg HS ROSIE Administration Folic Acid 1 mg 03/29/18 10:00 03/31/18 09:51 Folic Acid - PO 1 mg DAILY ROSIE Administration Gabapentin 100 mg 03/29/18 06:00 03/31/18 05:37 Neurontin - PO Not Given TID ROSIE Haloperidol 2 mg 03/29/18 23:15 03/30/18 22:54 Haldol - PO Not Given HS ROSIE Heparin Sodium (Porcine) 5,000 unit 03/30/18 22:00 03/31/18 09:52 Heparin - SQ 5,000 unit BID ROSIE Administration Piperacillin Sod/Tazobactam 50 mls @ 100 mls/hr 03/29/18 12:15 03/31/18 09:50 Sod 2.25 gm/ Dextrose IVPB 100 mls/hr Q8H-IV ROSIE Administration Protocol Insulin Aspart 1 vial 03/29/18 07:00 03/31/18 06:30 Novolog Vial Sliding Scale - SQ Not Given ACHS [facility] Protocol Insulin Detemir 6 units 03/30/18 22:00 03/30/18 23:09 Levemir Vial SQ 6 units HS [facility] Administration Mirtazapine 15 mg 03/29/18 22:00 03/30/18 22:54 Remeron - PO 15 mg HS [facility] Administration Multi-Ingredient Ointment 1 gm 03/29/18 10:00 03/31/18 09:52 Zinc Oxide 20% Topical Oint TP 1 applic DAILY ROSIE Administration Multivitamins 1 each 03/29/18 10:00 03/31/18 10:49 Total B With C - PO 1 each DAILY ROSIE Administration Oxycodone HCl 5 mg 03/30/18 13:55 Roxicodone - PO Q6H PRN PAIN LEVEL 6-10 Ranitidine HCl 150 mg 03/29/18 10:00 03/31/18 09:50 Zantac - PO 150 mg DAILY ROSIE Administration Tamsulosin HCl 0.4 mg 03/29/18 22:00 03/30/18 22:54 Flomax - PO 0.4 mg HS [facility] Administration Impression 1. ESRD 2. anemia 3. HTN 4. Chol 5. DM 6. BPH 7. CAD 8. hypoglycemia 9. CHF 10. syncope 11. depression Plan - will arrange for HD tomorrow - monitor blood sugar - monitor vitals - epogen for anemia MV
--- NOTE | 2018-03-31 14:14 | PN ---
Progress Note (short form) - Note Progress Note: pt seen/examined comfortable / sleeping all f/u noted Vital Signs Temp 97.7 F 03/31/18 10:00 Pulse 59 L 03/31/18 10:00 Resp 18 03/31/18 10:00 BP 99/44 03/31/18 10:00 Pulse Ox 99 03/31/18 09:00 Intake & Output 03/30/18 03/31/18 03/31/18 23:59 11:59 23:59 Other: Voiding Method Incontinent Incontinent # Unmeasured Voids Void 1 Bowel Movement Yes Yes # Bowel Movements 1 1 Active Medications Acetaminophen (Tylenol -) 650 mg PO Q6H PRN PRN Reason: PAIN LEVEL 1-5 Amlodipine Besylate (Norvasc -) 10 mg PO DAILY [facility] Last Admin: 03/31/18 09:52 Dose: Not Given Artificial Tears (Artificial Tears) 1 drop OU BID PRN PRN Reason: DRY EYES Aspirin (Ecotrin -) 81 mg PO DAILY [facility] Last Admin: 03/31/18 09:51 Dose: 81 mg Atorvastatin Calcium (Lipitor -) 40 mg PO [facility] Last Admin: 03/30/18 22:54 Dose: 40 mg Calcium Acetate (Phoslo -) 667 mg PO TIDCM [facility] Last Admin: 03/31/18 12:56 Dose: Not Given Carvedilol (Coreg -) 12.5 mg PO BID [facility] Last Admin: 03/31/18 09:51 Dose: 12.5 mg Citalopram Hydrobromide (Celexa -) 20 mg PO DAILY [facility] Last Admin: 03/31/18 09:53 Dose: Not Given Clopidogrel Bisulfate (Plavix -) 75 mg PO DAILY [facility] Last Admin: 03/31/18 09:51 Dose: 75 mg Collagenase (Santyl -) 1 applic TP DAILY [facility]; Protocol Last Admin: 03/30/18 10:00 Dose: Not Given Divalproex Sodium (Depakote -) 125 mg PO BID [facility] Last Admin: 03/31/18 10:43 Dose: 125 mg Docusate Sodium (Colace -) 300 mg PO [facility] Last Admin: 03/30/18 23:10 Dose: 300 mg Epoetin Jose Francisco (Procrit -) 10,000 unit SQ ONCE ONE Stop: 03/31/18 12:39 Folic Acid (Folic Acid -) 1 mg PO DAILY [facility] Last Admin: 03/31/18 09:51 Dose: 1 mg Gabapentin (Neurontin -) 100 mg PO TID [facility] Last Admin: 03/31/18 13:09 Dose: 100 mg Haloperidol (Haldol -) 2 mg PO [facility] Last Admin: 03/30/18 22:54 Dose: Not Given Heparin Sodium (Porcine) (Heparin -) 5,000 unit SQ BID [facility] Last Admin: 03/31/18 09:52 Dose: 5,000 unit Piperacillin Sod/Tazobactam (Sod 2.25 gm/ Dextrose) 50 mls @ 100 mls/hr IVPB Q8H-IV [facility]; Protocol Last Admin: 03/31/18 09:50 Dose: 100 mls/hr Sodium Chloride (Normal Saline -) 250 mls @ 3,000 mls/hr IV PRN PRN PRN Reason: Hypotension during Dialysis Stop: 04/01/18 12:38 Insulin Aspart (Novolog Vial Sliding Scale -) 1 vial SQ [facility]; Protocol Last Admin: 03/31/18 12:55 Dose: Not Given Insulin Detemir (Levemir Vial) 6 units SQ [facility] Last Admin: 03/30/18 23:09 Dose: 6 units Mirtazapine (Remeron -) 15 mg PO [facility] Last Admin: 03/30/18 22:54 Dose: 15 mg Multi-Ingredient Ointment (Zinc Oxide 20% Topical Oint) 1 gm TP DAILY [facility] Last Admin: 03/31/18 09:52 Dose: 1 applic Multivitamins (Total B With C -) 1 each PO DAILY [facility] Last Admin: 03/31/18 10:49 Dose: 1 each Oxycodone HCl (Roxicodone -) 5 mg PO Q6H PRN PRN Reason: PAIN LEVEL 6-10 Ranitidine HCl (Zantac -) 150 mg PO DAILY [facility] Last Admin: 03/31/18 09:50 Dose: 150 mg Tamsulosin HCl (Flomax -) 0.4 mg PO [facility] Last Admin: 03/30/18 22:54 Dose: 0.4 mg CBC, BMP 03/29/18 06:15 03/29/18 06:15 Abnormal Lab Results 03/30/18 18:00 ESR > 140 H Physical exam. Constitutional: Yes: No Distress, Comfortable. Neck: Yes: Supple Cardiovascular: Yes: Regular Rate and Rhythm Respiratory: Yes: Diminished Gastrointestinal: Yes: Soft Edema: No Wound/Incision: Yes: Dressing Dry and Intact-- Neurological: Yes: Alert Psychiatric: Yes: Alert Labs: Assessment/Plan Bilateral necrotic foul smelling ulcers Likely Osteo Esr >140 Bone scan pending Vascular work up ordered Consult Vascular Abx Monitor bgm-- will follow \ Problem List - Problems (1) Diabetes Code(s): E11.9 - TYPE 2 DIABETES MELLITUS WITHOUT COMPLICATIONS (2) ESRD (end stage renal disease) on dialysis Code(s): N18.6 - END STAGE RENAL DISEASE; Z99.2 - DEPENDENCE ON RENAL DIALYSIS (3) Infected pressure ulcer Code(s): L89.90 - PRESSURE ULCER OF UNSPECIFIED SITE, UNSPECIFIED STAGE; L08.9 - LOCAL INFECTION OF THE SKIN AND SUBCUTANEOUS TISSUE, UNSP (4) Syncope Code(s): R55 - SYNCOPE AND COLLAPSE (5) Acute metabolic encephalopathy due to hypoglycemia Code(s): G93.41 - METABOLIC ENCEPHALOPATHY; E16.2 - HYPOGLYCEMIA, UNSPECIFIED (6) Anemia Code(s): D64.9 - ANEMIA, UNSPECIFIED (7) CAD (coronary artery disease) Code(s): I25.10 - ATHSCL HEART DISEASE OF [place] CORONARY ARTERY W/O ANG PCTRS (8) ESRD (end stage renal disease) on dialysis Code(s): N18.6 - END STAGE RENAL DISEASE; Z99.2 - DEPENDENCE ON RENAL DIALYSIS
[2018-03-31] MEDS: DOCUSATE SODIUM 100 MG CAPSULE (FP) PO SCH (21:56)
[2018-03-31] MEDS: MIRTAZAPINE 15 MG TABLET (FP) PO SCH (21:58)
[2018-03-31] MEDS: TAMSULOSIN HCL 0.4 MG CAP.ER.24H (FP) PO SCH (21:58)
[2018-03-31] MEDS: HALOPERIDOL 1 MG TABLET (FP) PO SCH (22:02)
[2018-03-31] MEDS: ATORVASTATIN CA 40 MG TABLET (FP) PO SCH (22:02)
[2018-03-31] MEDS: INSULIN (LEVEMIR) 100 UNITS/ML UNITS SQ SCH (22:15)
[2018-04-01] MEDS: PIPERACILLIN/TAZOB 2.25 GM 2.25 GM in DEXTROSE 5%-WATER - 50 ML IVPB SCH ×4 (02:39→19:24)
[2018-04-01] MEDS: GABAPENTIN 100 MG CAPSULE (FP) PO SCH ×3 (05:38→21:03)
[2018-04-01] MEDS: INSULIN SLIDING SCALE (NOVOLOG) 1 VIAL SQ SCH ×4 (06:02→21:06)
[2018-04-01] MEDS: CALCIUM ACETATE 667 MG CAPSULE (FP) PO SCH ×3 (08:23→17:44)
[2018-04-01] MEDS ORDERED: PIPERACILLIN/TAZOBACTAM 2.25 GM VIAL IVPB ONE ×2 (08:34→18:17)
[2018-04-01] MEDS ORDERED: DEXTROSE 5%-WATER - 50 ML IVPB ONE ×2 (08:34→18:17)
[2018-04-01] MEDS ORDERED: PT OWN MED DRAWER 7, Y5N ONE ×2 (10:58→20:33)
[2018-04-01] MEDS: CLOPIDOGREL BISULFATE 75 MG TABLET (FP) PO SCH (11:06)
[2018-04-01] MEDS: HEPARIN NA (PORCINE) 5,000 UNITS/ML 1ML VIAL SQ SCH ×2 (11:06→21:05)
[2018-04-01] MEDS: RANITIDINE HCL 150 MG TABLET (FP) PO SCH (11:06)
[2018-04-01] MEDS: amLODIPine BESYLATE 10 MG TABLET (FP) PO SCH (11:07)
[2018-04-01] MEDS: CITALOPRAM HYDROBROMIDE 20 MG TABLET (FP) PO SCH (11:07)
[2018-04-01] MEDS: FOLIC ACID 1 MG TABLET (FP) PO SCH (11:07)
[2018-04-01] MEDS: ASPIRIN COATED 81 MG TABLET.EC PO SCH (11:07)
[2018-04-01] MEDS: CARVEDILOL 12.5 MG TABLET (FP) PO SCH ×2 (11:07→21:04)
[2018-04-01] MEDS: DIVALPROEX SODIUM 125 MG TABLET E.C. PO SCH ×2 (11:11→21:08)
[2018-04-01] MEDS: VITAMIN B COMPLEX W/C COMBO TABLET (FP) PO SCH (11:11)
--- NOTE | 2018-04-01 11:32 | CONSULT ---
- Consultation REQUESTING PROVIDER: Praful Mcneil CONSULT REQUEST: We have been asked to surgically evaluate this patient for chronic heel wounds (bilateral) PCP: Tierney Juárez HPI: 72 yr old man with HTN, IDDM, HTN, CHF, ESRD on HD (MWF), BIBEMS s/p fall in shelter. He was turning to sit on the edge of the bed to eat dinner when he lost his hold on the bed and fell. c/o constipation for past 4 days. c/o b/l heel pain due to ulcers. denies fevers in the last few days. denies LOC, head trauma, chest pain, palpitations, dizziness. PMHx: HTN, CAD s/p stents, ESRD on HD, IDDM, CAD, PAD, Hypercholesterolermia, Urinary Retention, Chronic LBP, Constipation, Anemia, GI Bleed, CHF (LV dysfunction) PSHx: CABG > 25yrs ago. MORENITA AVF 09/2017 Home Meds Carvedilol [Coreg -] 12.5 mg PO BID #60 tablet 12/18/17 Tamsulosin HCl [Flomax -] 0.4 mg PO HS #30 cap.er.24h 12/18/17 Amlodipine Besylate 10 mg PO DAILY 02/17/18 Aspirin [Adult Aspirin] 81 mg PO DAILY 02/17/18 Atorvastatin Ca [Lipitor] 40 mg PO HS 02/17/18 Collagenase Clostridium Hist. [Santyl -] 1 applic TP DAILY 02/17/18 Divalproex [Depakote -] 125 mg PO BID 02/17/18 Docusate Sodium 300 mg PO HS 02/17/18 Folic Acid 1 mg PO DAILY 02/17/18 Haloperidol 2 mg PO HS 02/17/18 Insulin Glargine,Hum.rec.anlog [Lantus Solostar] 10 unit SQ HS 02/17/18 Calcium Acetate [Phoslo -] 667 mg PO TIDCM 03/28/18 Citalopram Hydrobromide [Celexa -] 20 mg PO DAILY 03/28/18 Clopidogrel Bisulfate [Plavix -] 75 mg PO DAILY 03/28/18 Dextran 70/Hypromellose/Pf [Artificial Tears Drops] 1 each OU BID PRN 03/28/18 Famotidine 20 mg PO DAILY 03/28/18 Gabapentin [Neurontin -] 100 mg PO Q8H 03/28/18 Insulin Lispro [Humalog] unit SQ BID 03/28/18 LORazepam [Ativan] 0.5 mg PO ASDIR 03/28/18 Mirtazapine [Remeron -] 15 mg PO HS 03/28/18 Vitamin B Complex [Balance B-50] 1 each PO DAILY 03/28/18 Zinc Oxide 20% Topical Oint 454 gm NR ASDIR 03/28/18 Allergies: Percocet --> hives ROS CONSTITUTIONAL: Absent: fever, chills, diaphoresis, generalized weakness, malaise, loss of appetite, HEENT: Absent: rhinorrhea, nasal congestion, throat pain, throat swelling, difficulty swallowing, mouth swelling, ear pain, eye pain, visual changes CARDIOVASCULAR: Absent: chest pain, syncope, palpitations, irregular heart rate , lightheadedness, peripheral edema RESPIRATORY: Absent: cough, shortness of breath, dyspnea with exertion, orthopnea, wheezing, stridor, hemoptysis GASTROINTESTINAL:Absent: abdominal pain, abdominal distension, nausea, vomiting , diarrhea, constipation, melena, hematochezia GENITOURINARY: Absent: dysuria, frequency, urgency, hesitancy, hematuria, flank pain, genital pain MUSCULOSKELETAL: Absent: myalgia, arthralgia, joint swelling, back pain, neck pain SKIN: Absent: rash, itching, pallor HEMATOLOGIC/IMMUNOLOGIC: Absent: easy bleeding, easy bruising, lymphadenopathy, frequent infections ENDOCRINE:Absent: unexplained weight gain, unexplained weight loss, heat intolerance, cold intolerance NEUROLOGIC: Absent: headache, focal weakness or paresthesias, dizziness, unsteady gait, seizure, mental status changes, bladder or bowel incontinence PSYCHIATRIC: Absent: anxiety, depression, suicidal or homicidal ideation, hallucinations. PHYSICAL EXAM: GENERAL: Awake, alert, and fully oriented, in no acute distress. HEAD: Normal with no signs of trauma. EYES: PERRL, sclera anicteric, conjunctiva clear. NECK: Normal ROM, supple without lymphadenopathy, JVD, or masses. LUNGS: CTA bilat anteriorly HEART: RRR ABDOMEN: Soft, NT. ND. MUSCULOSKELETAL: Normal ROM at all joints. No bony deformities or tenderness. No CVA tenderness. UE: 2+ pulses, warm, well-perfused. No cyanosis. Cap refill <2 seconds. No peripheral edema. LUE AVF palpable thrill. Hand warm LE: warm, well-perfused. No calf tenderness. No peripheral edema. 2+ DP/PT bilat. Bilat heel ulcers with eschars. Non-boggy/fluctuance/crepitance. No expressable drainage. No foul odor. No erythema. PSYCH: Cooperative. Good eye contact. Appropriate mood and affect. Vital Signs Temperature 98.3 F 04/01/18 08:59 Pulse Rate 65 04/01/18 08:59 Respiratory Rate 22 04/01/18 09:00 Blood Pressure 123/53 04/01/18 08:59 O2 Sat by Pulse Oximetry (%) 97 04/01/18 09:00 Lab Results WBC 13.3 K/mm3 (4.0-10.0) H 03/29/18 06:15 RBC 2.42 M/mm3 (4.00-5.60) L 03/29/18 06:15 Hgb 7.9 GM/dL (11.7-16.9) L 03/29/18 06:15 Hct 23.1 % (35.4-49) L 03/29/18 06:15 MCV 95.6 fl (80-96) 03/29/18 06:15 MCHC 34.3 g/dl (32.0-35.9) 03/29/18 06:15 RDW 14.6 % (11.9-15.9) 03/29/18 06:15 Plt Count 218 K/MM3 (134-434) 03/29/18 06:15 Sodium 138 mmol/L (136-145) 03/29/18 06:15 Potassium 3.8 mmol/L (3.5-5.1) 03/29/18 06:15 Chloride 100 mmol/L (98-107) 03/29/18 06:15 Carbon Dioxide 28 mmol/L (21-32) 03/29/18 06:15 Anion Gap 10 MMOL/L (8-16) 03/29/18 06:15 BUN 62 mg/dL (7-18) H 03/29/18 06:15 Creatinine 4.7 mg/dL (0.7-1.3) H 03/29/18 06:15 Random Glucose 246 mg/dL (74-106) H 03/29/18 06:15 Calcium 8.2 mg/dL (8.5-10.1) L 03/29/18 06:15 INR 1.20 (0.83-1.09) H 03/28/18 22:22 Problem List - Problems (1) Eschar of heel Assessment/Plan: No need for surgical debridement as wounds do not appear infected. Offload all pressure sensitive areas. Dressings changed on rounds. Heel protectors placed. Cont conservative management Dry dressing changes ordered. No need for surgical intervention - reconsult prn Above plan discussed with Dr. Mcneil and agrees. On behalf of Dr. Mcneil, thank you for the opportunity to participate in your patient's care. Code(s): R23.4 - CHANGES IN SKIN TEXTURE (2) Diabetes Assessment/Plan: Tight glycemic control Code(s): E11.9 - TYPE 2 DIABETES MELLITUS WITHOUT COMPLICATIONS (3) ESRD (end stage renal disease) on dialysis Assessment/Plan: HD per his schedule Code(s): N18.6 - END STAGE RENAL DISEASE; Z99.2 - DEPENDENCE ON RENAL DIALYSIS Visit type - Case Type Case Type: ED Admission - New patient This patient is new to me today: Yes Date on this admission: 04/01/18
[2018-04-01] MEDS: COLLAGENASE CLOSTRIDIUM HIST. 30 GRAMS TUBE TP SCH (11:35)
[2018-04-01] MEDS: ZINC OXIDE 20% TOPICAL OINTMENT 454 GM JAR TP SCH (12:24)
--- NOTE | 2018-04-01 13:13 | PN ---
Progress Note (short form) - Note Progress Note: pt seen/examined. family at bedside pt comfortable mood stable vascular consult noted/ appreciated Vital Signs Temp 98.3 F 04/01/18 08:59 Pulse 65 04/01/18 08:59 Resp 22 04/01/18 09:00 BP 123/53 04/01/18 08:59 Pulse Ox 97 04/01/18 09:00 Intake & Output 03/31/18 04/01/18 04/01/18 23:59 11:59 23:59 Intake Total 200 50 200 Balance 200 50 200 Intake: IVPB 50 Oral 200 200 Other: Voiding Method Incontinent Incontinent Diaper # Unmeasured Voids Void 2 Bowel Movement Yes # Bowel Movements 1 Active Medications Acetaminophen (Tylenol -) 650 mg PO Q6H PRN PRN Reason: PAIN LEVEL 1-5 Amlodipine Besylate (Norvasc -) 10 mg PO DAILY [facility] Last Admin: 04/01/18 11:07 Dose: 10 mg Artificial Tears (Artificial Tears) 1 drop OU BID PRN PRN Reason: DRY EYES Aspirin (Ecotrin -) 81 mg PO DAILY [facility] Last Admin: 04/01/18 11:07 Dose: 81 mg Atorvastatin Calcium (Lipitor -) 40 mg PO HS [facility] Last Admin: 03/31/18 22:02 Dose: 40 mg Calcium Acetate (Phoslo -) 667 mg PO TIDCM [facility] Last Admin: 04/01/18 12:48 Dose: 667 mg Carvedilol (Coreg -) 12.5 mg PO BID [facility] Last Admin: 04/01/18 11:07 Dose: 12.5 mg Citalopram Hydrobromide (Celexa -) 20 mg PO DAILY [facility] Last Admin: 04/01/18 11:07 Dose: 20 mg Clopidogrel Bisulfate (Plavix -) 75 mg PO DAILY [facility] Last Admin: 04/01/18 11:06 Dose: 75 mg Collagenase (Santyl -) 1 applic TP DAILY [facility]; Protocol Last Admin: 04/01/18 11:35 Dose: Not Given Divalproex Sodium (Depakote -) 125 mg PO BID [facility] Last Admin: 04/01/18 11:11 Dose: 125 mg Docusate Sodium (Colace -) 300 mg PO HS [facility] Last Admin: 03/31/18 21:56 Dose: 300 mg Epoetin Jose Francisco (Procrit -) 10,000 unit SQ ONCE ONE Stop: 03/31/18 12:39 Folic Acid (Folic Acid -) 1 mg PO DAILY [facility] Last Admin: 04/01/18 11:07 Dose: 1 mg Gabapentin (Neurontin -) 100 mg PO TID [facility] Last Admin: 04/01/18 05:38 Dose: Not Given Haloperidol (Haldol -) 2 mg PO [facility] Last Admin: 03/31/18 22:02 Dose: Not Given Heparin Sodium (Porcine) (Heparin -) 5,000 unit SQ BID [facility] Last Admin: 04/01/18 11:06 Dose: 5,000 unit Piperacillin Sod/Tazobactam (Sod 2.25 gm/ Dextrose) 50 mls @ 100 mls/hr IVPB Q8H-IV [facility]; Protocol Last Admin: 04/01/18 10:00 Dose: 100 mls/hr Sodium Chloride (Normal Saline -) 250 mls @ 3,000 mls/hr IV PRN PRN PRN Reason: Hypotension during Dialysis Stop: 04/01/18 12:38 Insulin Aspart (Novolog Vial Sliding Scale -) 1 vial SQ [facility]; Protocol Last Admin: 04/01/18 12:48 Dose: 6 unit Insulin Detemir (Levemir Vial) 6 units SQ [facility] Last Admin: 03/31/18 22:15 Dose: 6 units Mirtazapine (Remeron -) 15 mg PO [facility] Last Admin: 03/31/18 21:58 Dose: 15 mg Multi-Ingredient Ointment (Zinc Oxide 20% Topical Oint) 1 gm TP DAILY [facility] Last Admin: 04/01/18 12:24 Dose: 1 applic Multivitamins (Total B With C -) 1 each PO DAILY [facility] Last Admin: 04/01/18 11:11 Dose: 1 each Oxycodone HCl (Roxicodone -) 5 mg PO Q6H PRN PRN Reason: PAIN LEVEL 6-10 Ranitidine HCl (Zantac -) 150 mg PO DAILY [facility] Last Admin: 04/01/18 11:06 Dose: 150 mg Tamsulosin HCl (Flomax -) 0.4 mg PO [facility] Last Admin: 03/31/18 21:58 Dose: 0.4 mg CBC, BMP 03/29/18 06:15 03/29/18 06:15 Physical exam. Constitutional: Yes: No Distress, Comfortable. Neck: Yes: Supple. no jvd Cardiovascular: Yes: Regular Rate and Rhythm Respiratory: Yes: Diminished Gastrointestinal: Yes: Soft Edema: No Wound/Incision: Yes: Bilateral heel ulcers -- examined/ necrotic Neurological: Yes: Alert Psychiatric: Yes: Alert Labs: Assessment/Plan Continue present care abx bone scan discussed with i/d monitor bgm discussed with family. will follow discussed with nursing staff also. Problem List - Problems (1) Diabetes Code(s): E11.9 - TYPE 2 DIABETES MELLITUS WITHOUT COMPLICATIONS (2) ESRD (end stage renal disease) on dialysis Code(s): N18.6 - END STAGE RENAL DISEASE; Z99.2 - DEPENDENCE ON RENAL DIALYSIS (3) Infected pressure ulcer Code(s): L89.90 - PRESSURE ULCER OF UNSPECIFIED SITE, UNSPECIFIED STAGE; L08.9 - LOCAL INFECTION OF THE SKIN AND SUBCUTANEOUS TISSUE, UNSP (4) Syncope Code(s): R55 - SYNCOPE AND COLLAPSE (5) Acute metabolic encephalopathy due to hypoglycemia Code(s): G93.41 - METABOLIC ENCEPHALOPATHY; E16.2 - HYPOGLYCEMIA, UNSPECIFIED (6) Anemia Code(s): D64.9 - ANEMIA, UNSPECIFIED (7) CAD (coronary artery disease) Code(s): I25.10 - ATHSCL HEART DISEASE OF [place] CORONARY ARTERY W/O ANG PCTRS (8) ESRD (end stage renal disease) on dialysis Code(s): N18.6 - END STAGE RENAL DISEASE; Z99.2 - DEPENDENCE ON RENAL DIALYSIS
--- NOTE | 2018-04-01 13:35 | PN ---
Progress Note, Physician History of Present Illness: Pt seen and examined at bedside. He is awake and alert. He denies shortness of breath. - Current Medication List Current Medications: Active Medications Acetaminophen (Tylenol -) 650 mg PO Q6H PRN PRN Reason: PAIN LEVEL 1-5 Amlodipine Besylate (Norvasc -) 10 mg PO DAILY [facility] Last Admin: 04/01/18 11:07 Dose: 10 mg Artificial Tears (Artificial Tears) 1 drop OU BID PRN PRN Reason: DRY EYES Aspirin (Ecotrin -) 81 mg PO DAILY [facility] Last Admin: 04/01/18 11:07 Dose: 81 mg Atorvastatin Calcium (Lipitor -) 40 mg PO HS [facility] Last Admin: 03/31/18 22:02 Dose: 40 mg Calcium Acetate (Phoslo -) 667 mg PO TIDCM [facility] Last Admin: 04/01/18 12:48 Dose: 667 mg Carvedilol (Coreg -) 12.5 mg PO BID [facility] Last Admin: 04/01/18 11:07 Dose: 12.5 mg Citalopram Hydrobromide (Celexa -) 20 mg PO DAILY [facility] Last Admin: 04/01/18 11:07 Dose: 20 mg Clopidogrel Bisulfate (Plavix -) 75 mg PO DAILY [facility] Last Admin: 04/01/18 11:06 Dose: 75 mg Collagenase (Santyl -) 1 applic TP DAILY [facility]; Protocol Last Admin: 04/01/18 11:35 Dose: Not Given Divalproex Sodium (Depakote -) 125 mg PO BID [facility] Last Admin: 04/01/18 11:11 Dose: 125 mg Docusate Sodium (Colace -) 300 mg PO [facility] Last Admin: 03/31/18 21:56 Dose: 300 mg Epoetin Jose Francisco (Procrit -) 10,000 unit SQ ONCE ONE Stop: 03/31/18 12:39 Folic Acid (Folic Acid -) 1 mg PO DAILY [facility] Last Admin: 04/01/18 11:07 Dose: 1 mg Gabapentin (Neurontin -) 100 mg PO TID [facility] Last Admin: 04/01/18 05:38 Dose: Not Given Haloperidol (Haldol -) 2 mg PO [facility] Last Admin: 03/31/18 22:02 Dose: Not Given Heparin Sodium (Porcine) (Heparin -) 5,000 unit SQ BID [facility] Last Admin: 04/01/18 11:06 Dose: 5,000 unit Piperacillin Sod/Tazobactam (Sod 2.25 gm/ Dextrose) 50 mls @ 100 mls/hr IVPB Q8H-IV [facility]; Protocol Last Admin: 04/01/18 10:00 Dose: 100 mls/hr Sodium Chloride (Normal Saline -) 250 mls @ 3,000 mls/hr IV PRN PRN PRN Reason: Hypotension during Dialysis Stop: 04/01/18 12:38 Insulin Aspart (Novolog Vial Sliding Scale -) 1 vial SQ [facility]; Protocol Last Admin: 04/01/18 12:48 Dose: 6 unit Insulin Detemir (Levemir Vial) 6 units SQ HS [facility] Last Admin: 03/31/18 22:15 Dose: 6 units Mirtazapine (Remeron -) 15 mg PO HS [facility] Last Admin: 03/31/18 21:58 Dose: 15 mg Multi-Ingredient Ointment (Zinc Oxide 20% Topical Oint) 1 gm TP DAILY [facility] Last Admin: 04/01/18 12:24 Dose: 1 applic Multivitamins (Total B With C -) 1 each PO DAILY [facility] Last Admin: 04/01/18 11:11 Dose: 1 each Oxycodone HCl (Roxicodone -) 5 mg PO Q6H PRN PRN Reason: PAIN LEVEL 6-10 Ranitidine HCl (Zantac -) 150 mg PO DAILY [facility] Last Admin: 04/01/18 11:06 Dose: 150 mg Tamsulosin HCl (Flomax -) 0.4 mg PO [facility] Last Admin: 03/31/18 21:58 Dose: 0.4 mg - Objective Vital Signs: Vital Signs Temperature 98.3 F 04/01/18 08:59 Pulse Rate 65 04/01/18 08:59 Respiratory Rate 22 04/01/18 09:00 Blood Pressure 123/53 04/01/18 08:59 O2 Sat by Pulse Oximetry (%) 97 04/01/18 09:00 Constitutional: Yes: Calm Eyes: Yes: Conjunctiva Clear HENT: Yes: Atraumatic Neck: Yes: Supple Cardiovascular: Yes: S1, S2 Respiratory: Yes: CTA Bilaterally, On Nasal O2 Gastrointestinal: Yes: Soft Genitourinary: Yes: Incontinence Musculoskeletal: Yes: WNL Edema: No Wound/Incision: Yes: Dressing Dry and Intact Neurological: Yes: Confusion Labs: CBC, BMP 03/29/18 06:15 03/29/18 06:15 INR, PTT INR 1.20 (0.83-1.09) H 03/28/18 22:22 Problem List - Problems (1) Diabetes Code(s): E11.9 - TYPE 2 DIABETES MELLITUS WITHOUT COMPLICATIONS (2) ESRD (end stage renal disease) on dialysis Code(s): N18.6 - END STAGE RENAL DISEASE; Z99.2 - DEPENDENCE ON RENAL DIALYSIS (3) Syncope Code(s): R55 - SYNCOPE AND COLLAPSE (4) Anemia Code(s): D64.9 - ANEMIA, UNSPECIFIED Assessment/Plan Current Medications Generic Name Dose Route Start Last Admin Trade Name Freq PRN Reason Stop Dose Admin Acetaminophen 650 mg 03/30/18 13:55 Tylenol - PO Q6H PRN PAIN LEVEL 1-5 Amlodipine Besylate 10 mg 03/29/18 10:00 04/01/18 11:07 Norvasc - PO 10 mg DAILY [facility] Administration Artificial Tears 1 drop 03/29/18 04:59 Artificial Tears OU BID PRN DRY EYES Aspirin 81 mg 03/29/18 10:00 04/01/18 11:07 Ecotrin - PO 81 mg DAILY [facility] Administration Atorvastatin Calcium 40 mg 03/29/18 22:00 03/31/18 22:02 Lipitor - PO 40 mg HS [facility] Administration Calcium Acetate 667 mg 03/29/18 08:00 04/01/18 12:48 Phoslo - PO 667 mg TIDCM [facility] Administration Carvedilol 12.5 mg 03/29/18 10:00 04/01/18 11:07 Coreg - PO 12.5 mg BID [facility] Administration Citalopram Hydrobromide 20 mg 03/29/18 10:00 04/01/18 11:07 Celexa - PO 20 mg DAILY [facility] Administration Clopidogrel Bisulfate 75 mg 03/29/18 10:00 04/01/18 11:06 Plavix - PO 75 mg DAILY [facility] Administration Collagenase 1 applic 03/29/18 10:00 04/01/18 11:35 Santyl - TP Not Given DAILY [facility] Protocol Divalproex Sodium 125 mg 03/29/18 10:00 04/01/18 11:11 Depakote - PO 125 mg BID [facility] Administration Docusate Sodium 300 mg 03/29/18 22:00 03/31/18 21:56 Colace - PO 300 mg HS [facility] Administration Epoetin Jose Francisco 10,000 unit 03/31/18 12:38 Procrit - SQ 03/31/18 12:39 ONCE ONE Folic Acid 1 mg 03/29/18 10:00 04/01/18 11:07 Folic Acid - PO 1 mg DAILY [facility] Administration Gabapentin 100 mg 03/29/18 06:00 04/01/18 05:38 Neurontin - PO Not Given TID [facility] Haloperidol 2 mg 03/29/18 23:15 03/31/18 22:02 Haldol - PO Not Given HS [facility] Heparin Sodium (Porcine) 5,000 unit 03/30/18 22:00 04/01/18 11:06 Heparin - SQ 5,000 unit BID [facility] Administration Piperacillin Sod/Tazobactam 50 mls @ 100 mls/hr 03/29/18 12:15 04/01/18 10:00 Sod 2.25 gm/ Dextrose IVPB 100 mls/hr Q8H-IV [facility] Administration Protocol Sodium Chloride 250 mls @ 3,000 mls/hr 03/31/18 12:38 Normal Saline - IV 04/01/18 12:38 PRN PRN Hypotension during Dialysis Insulin Aspart 1 vial 03/29/18 07:00 04/01/18 12:48 Novolog Vial Sliding Scale - SQ 6 unit ACHS [facility] Administration Protocol Insulin Detemir 6 units 03/30/18 22:00 03/31/18 22:15 Levemir Vial SQ 6 units HS [facility] Administration Mirtazapine 15 mg 03/29/18 22:00 03/31/18 21:58 Remeron - PO 15 mg HS [facility] Administration Multi-Ingredient Ointment 1 gm 03/29/18 10:00 04/01/18 12:24 Zinc Oxide 20% Topical Oint TP 1 applic DAILY [facility] Administration Multivitamins 1 each 03/29/18 10:00 04/01/18 11:11 Total B With C - PO 1 each DAILY [facility] Administration Oxycodone HCl 5 mg 03/30/18 13:55 Roxicodone - PO Q6H PRN PAIN LEVEL 6-10 Ranitidine HCl 150 mg 03/29/18 10:00 04/01/18 11:06 Zantac - PO 150 mg DAILY [facility] Administration Tamsulosin HCl 0.4 mg 03/29/18 22:00 03/31/18 21:58 Flomax - PO 0.4 mg HS [facility] Administration Impression 1. ESRD 2. anemia 3. HTN 4. Chol 5. DM 6. BPH 7. CAD 8. hypoglycemia 9. CHF 10. syncope 11. depression Plan - HD today - cont wound care - monitor blood sugar - discussed plan with family - quinn for anemia - monitor hg Dr Donovan
[2018-04-01] MEDS ORDERED: SODIUM CHLORIDE 250 ML IV PRN (16:34)
[2018-04-01] MEDS ORDERED: EPOETIN ALFA 10,000 UNIT/1 ML VIAL SQ ONE (16:45)
--- NOTE | 2018-04-01 17:11 | PN ---
Progress Note, Physician History of Present Illness: c/o bilateral heel pain low grade temp noted WBC elevated 13K Wound c/s mixed - Current Medication List Current Medications: Active Medications Acetaminophen (Tylenol -) 650 mg PO Q6H PRN PRN Reason: PAIN LEVEL 1-5 Amlodipine Besylate (Norvasc -) 10 mg PO DAILY [facility] Last Admin: 04/01/18 11:07 Dose: 10 mg Artificial Tears (Artificial Tears) 1 drop OU BID PRN PRN Reason: DRY EYES Aspirin (Ecotrin -) 81 mg PO DAILY [facility] Last Admin: 04/01/18 11:07 Dose: 81 mg Atorvastatin Calcium (Lipitor -) 40 mg PO HS [facility] Last Admin: 03/31/18 22:02 Dose: 40 mg Calcium Acetate (Phoslo -) 667 mg PO TIDCM [facility] Last Admin: 04/01/18 12:48 Dose: 667 mg Carvedilol (Coreg -) 12.5 mg PO BID [facility] Last Admin: 04/01/18 11:07 Dose: 12.5 mg Citalopram Hydrobromide (Celexa -) 20 mg PO DAILY [facility] Last Admin: 04/01/18 11:07 Dose: 20 mg Clopidogrel Bisulfate (Plavix -) 75 mg PO DAILY [facility] Last Admin: 04/01/18 11:06 Dose: 75 mg Collagenase (Santyl -) 1 applic TP DAILY [facility]; Protocol Last Admin: 04/01/18 11:35 Dose: Not Given Divalproex Sodium (Depakote -) 125 mg PO BID [facility] Last Admin: 04/01/18 11:11 Dose: 125 mg Docusate Sodium (Colace -) 300 mg PO HS [facility] Last Admin: 03/31/18 21:56 Dose: 300 mg Folic Acid (Folic Acid -) 1 mg PO DAILY [facility] Last Admin: 04/01/18 11:07 Dose: 1 mg Gabapentin (Neurontin -) 100 mg PO TID [facility] Last Admin: 04/01/18 15:43 Dose: Not Given Haloperidol (Haldol -) 2 mg PO HS [facility] Last Admin: 03/31/18 22:02 Dose: Not Given Heparin Sodium (Porcine) (Heparin -) 5,000 unit SQ BID [facility] Last Admin: 04/01/18 11:06 Dose: 5,000 unit Piperacillin Sod/Tazobactam (Sod 2.25 gm/ Dextrose) 50 mls @ 100 mls/hr IVPB Q8H-IV [facility]; Protocol Last Admin: 04/01/18 10:00 Dose: 100 mls/hr Insulin Aspart (Novolog Vial Sliding Scale -) 1 vial SQ [facility]; Protocol Last Admin: 04/01/18 12:48 Dose: 6 unit Insulin Detemir (Levemir Vial) 6 units SQ [facility] Last Admin: 03/31/18 22:15 Dose: 6 units Mirtazapine (Remeron -) 15 mg PO [facility] Last Admin: 03/31/18 21:58 Dose: 15 mg Multi-Ingredient Ointment (Zinc Oxide 20% Topical Oint) 1 gm TP DAILY [facility] Last Admin: 04/01/18 12:24 Dose: 1 applic Multivitamins (Total B With C -) 1 each PO DAILY [facility] Last Admin: 04/01/18 11:11 Dose: 1 each Oxycodone HCl (Roxicodone -) 5 mg PO Q6H PRN PRN Reason: PAIN LEVEL 6-10 Ranitidine HCl (Zantac -) 150 mg PO DAILY [facility] Last Admin: 04/01/18 11:06 Dose: 150 mg Tamsulosin HCl (Flomax -) 0.4 mg PO [facility] Last Admin: 03/31/18 21:58 Dose: 0.4 mg - Objective Vital Signs: Vital Signs Temperature 97.6 F 04/01/18 14:00 Pulse Rate 62 04/01/18 16:15 Respiratory Rate 18 04/01/18 16:15 Blood Pressure 117/60 04/01/18 16:15 O2 Sat by Pulse Oximetry (%) 97 04/01/18 09:00 Constitutional: Yes: No Distress, Pallor Cardiovascular: Yes: Regular Rate and Rhythm, S1, S2 Respiratory: Yes: CTA Bilaterally Gastrointestinal: Yes: Normal Bowel Sounds, Soft Extremities: Yes: Other (bilateral necrotic heel ulcers R> L + foul odor no drainage) Labs: CBC, BMP 03/29/18 06:15 03/29/18 06:15 INR, PTT INR 1.20 (0.83-1.09) H 03/28/18 22:22 Assessment/Plan Bilateral necrotic heel ulcers ESRD Bone scan negative for osteomyelitis Continue Zosyn, local care
[2018-04-01] MEDS ORDERED: INSULIN (NOVOLOG) ASPART 100 UNITS/ML 10ML VIAL ONE (20:33)
[2018-04-01] MEDS: ATORVASTATIN CA 40 MG TABLET (FP) PO SCH (21:03)
[2018-04-01] MEDS: HALOPERIDOL 1 MG TABLET (FP) PO SCH (21:03)
[2018-04-01] MEDS: MIRTAZAPINE 15 MG TABLET (FP) PO SCH (21:03)
[2018-04-01] MEDS: DOCUSATE SODIUM 100 MG CAPSULE (FP) PO SCH (21:04)
[2018-04-01] MEDS: TAMSULOSIN HCL 0.4 MG CAP.ER.24H (FP) PO SCH (21:05)
[2018-04-01] MEDS: INSULIN (LEVEMIR) 100 UNITS/ML UNITS SQ SCH (21:06)
[2018-04-02] MEDS ORDERED: PIPERACILLIN/TAZOBACTAM 2.25 GM VIAL IVPB ONE ×3 (03:09→17:24)
[2018-04-02] MEDS ORDERED: DEXTROSE 5%-WATER - 50 ML IVPB ONE ×3 (03:10→17:24)
[2018-04-02] MEDS: PIPERACILLIN/TAZOB 2.25 GM 2.25 GM in DEXTROSE 5%-WATER - 50 ML IVPB SCH ×3 (03:20→17:35)
[2018-04-02] MEDS: INSULIN SLIDING SCALE (NOVOLOG) 1 VIAL SQ SCH ×4 (06:09→22:15)
[2018-04-02] MEDS: GABAPENTIN 100 MG CAPSULE (FP) PO SCH ×3 (06:11→22:12)
[2018-04-02] MEDS: ASPIRIN COATED 81 MG TABLET.EC PO SCH (10:00)
[2018-04-02] MEDS: DIVALPROEX SODIUM 125 MG TABLET E.C. PO SCH ×2 (10:00→22:48)
[2018-04-02] MEDS: CARVEDILOL 12.5 MG TABLET (FP) PO SCH ×2 (10:00→22:12)
[2018-04-02] MEDS: FOLIC ACID 1 MG TABLET (FP) PO SCH (10:00)
[2018-04-02] MEDS: amLODIPine BESYLATE 10 MG TABLET (FP) PO SCH (10:00)
[2018-04-02] MEDS: CLOPIDOGREL BISULFATE 75 MG TABLET (FP) PO SCH (10:00)
[2018-04-02] MEDS: CITALOPRAM HYDROBROMIDE 20 MG TABLET (FP) PO SCH (10:00)
[2018-04-02] MEDS: VITAMIN B COMPLEX W/C COMBO TABLET (FP) PO SCH (10:00)
[2018-04-02] MEDS: CALCIUM ACETATE 667 MG CAPSULE (FP) PO SCH ×3 (10:00→16:38)
[2018-04-02] MEDS: RANITIDINE HCL 150 MG TABLET (FP) PO SCH (10:00)
--- NOTE | 2018-04-02 11:39 | PN ---
Progress Note (short form) - Note Progress Note: pt seen/ examined comfortable no new issues Vital Signs Temp 98.9 F 04/02/18 06:00 Pulse 60 04/02/18 06:00 Resp 20 04/01/18 22:00 BP 136/47 04/02/18 06:00 Pulse Ox 98 04/02/18 08:46 Intake & Output 04/01/18 04/01/18 04/02/18 11:59 23:59 11:59 Intake Total 50 400 290 Balance 50 400 290 Intake: IVPB 50 50 Oral 400 240 Other: Voiding Method Incontinent Incontinent Diaper # Unmeasured Voids Void 2 2 Active Medications Acetaminophen (Tylenol -) 650 mg PO Q6H PRN PRN Reason: PAIN LEVEL 1-5 Amlodipine Besylate (Norvasc -) 10 mg PO DAILY [facility] Last Admin: 04/01/18 11:07 Dose: 10 mg Artificial Tears (Artificial Tears) 1 drop OU BID PRN PRN Reason: DRY EYES Aspirin (Ecotrin -) 81 mg PO DAILY [facility] Last Admin: 04/01/18 11:07 Dose: 81 mg Atorvastatin Calcium (Lipitor -) 40 mg [address] [facility] Last Admin: 04/01/18 21:03 Dose: 40 mg Calcium Acetate (Phoslo -) 667 mg PO TIDCM [facility] Last Admin: 04/01/18 17:44 Dose: Not Given Carvedilol (Coreg -) 12.5 mg PO BID [facility] Last Admin: 04/01/18 21:04 Dose: 12.5 mg Citalopram Hydrobromide (Celexa -) 20 mg PO DAILY [facility] Last Admin: 04/01/18 11:07 Dose: 20 mg Clopidogrel Bisulfate (Plavix -) 75 mg PO DAILY [facility] Last Admin: 04/01/18 11:06 Dose: 75 mg Collagenase (Santyl -) 1 applic TP DAILY [facility]; Protocol Last Admin: 04/01/18 11:35 Dose: Not Given Divalproex Sodium (Depakote -) 125 mg PO BID [facility] Last Admin: 04/01/18 21:08 Dose: 125 mg Docusate Sodium (Colace -) 300 mg PO HS [facility] Last Admin: 04/01/18 21:04 Dose: 300 mg Folic Acid (Folic Acid -) 1 mg PO DAILY [facility] Last Admin: 04/01/18 11:07 Dose: 1 mg Gabapentin (Neurontin -) 100 mg PO TID [facility] Last Admin: 04/02/18 06:11 Dose: 100 mg Haloperidol (Haldol -) 2 mg PO [facility] Last Admin: 04/01/18 21:03 Dose: 2 mg Heparin Sodium (Porcine) (Heparin -) 5,000 unit SQ BID [facility] Last Admin: 04/01/18 21:05 Dose: 5,000 unit Piperacillin Sod/Tazobactam (Sod 2.25 gm/ Dextrose) 50 mls @ 100 mls/hr IVPB Q8H-IV [facility]; Protocol Last Admin: 04/02/18 03:20 Dose: 100 mls/hr Insulin Aspart (Novolog Vial Sliding Scale -) 1 vial SQ ACHS [facility]; Protocol Last Admin: 04/02/18 06:09 Dose: Not Given Insulin Detemir (Levemir Vial) 6 units SQ [facility] Last Admin: 04/01/18 21:06 Dose: 6 units Mirtazapine (Remeron -) 15 mg PO [facility] Last Admin: 04/01/18 21:03 Dose: 15 mg Multi-Ingredient Ointment (Zinc Oxide 20% Topical Oint) 1 gm TP DAILY [facility] Last Admin: 04/01/18 12:24 Dose: 1 applic Multivitamins (Total B With C -) 1 each PO DAILY [facility] Last Admin: 04/01/18 11:11 Dose: 1 each Oxycodone HCl (Roxicodone -) 5 mg PO Q6H PRN PRN Reason: PAIN LEVEL 6-10 Last Admin: 04/01/18 21:00 Dose: 5 mg Ranitidine HCl (Zantac -) 150 mg PO DAILY [facility] Last Admin: 04/01/18 11:06 Dose: 150 mg Tamsulosin HCl (Flomax -) 0.4 mg PO [facility] Last Admin: 04/01/18 21:05 Dose: 0.4 mg CBC, BMP 03/29/18 06:15 03/29/18 06:15 Microbiology 03/29/18 07:44 Gram Stain - Final Foot - Right Heel Wound Culture - Preliminary Staphylococcus Aureus Morganella Morganii Enterococcus Faecalis Klebsiella Pneumoniae 03/29/18 12:56 Blood Culture - Preliminary Blood - Peripheral Venous NO GROWTH OBTAINED AFTER 72 HOURS, INCUBATION TO CONTINUE FOR 2 DAYS. 03/29/18 11:56 Blood Culture - Preliminary Blood - Peripheral Venous NO GROWTH OBTAINED AFTER 72 HOURS, INCUBATION TO CONTINUE FOR 2 DAYS. Physical exam. Constitutional: Yes: No Distress, Comfortable. Neck: Yes: Supple. no jvd Cardiovascular: Yes: Regular Rate and Rhythm Respiratory: Yes: Diminished Gastrointestinal: Yes: Soft/ non tender Edema: No Wound/Incision: Yes: Bilateral heel ulcers -- dressing + Neurological: Yes: Alert Psychiatric: Yes: Alert Labs: Assessment/Plan Continue present care abx bone scan-ve Arterial doppler-- Atherosclertic disease monitor bgm d/c tele f/u labs dialysis per renal will follow daily oob - chair discussed with nursing staff also. Problem List - Problems (1) Diabetes Code(s): E11.9 - TYPE 2 DIABETES MELLITUS WITHOUT COMPLICATIONS (2) ESRD (end stage renal disease) on dialysis Code(s): N18.6 - END STAGE RENAL DISEASE; Z99.2 - DEPENDENCE ON RENAL DIALYSIS (3) Infected pressure ulcer Code(s): L89.90 - PRESSURE ULCER OF UNSPECIFIED SITE, UNSPECIFIED STAGE; L08.9 - LOCAL INFECTION OF THE SKIN AND SUBCUTANEOUS TISSUE, UNSP (4) Syncope Code(s): R55 - SYNCOPE AND COLLAPSE (5) Acute metabolic encephalopathy due to hypoglycemia Code(s): G93.41 - METABOLIC ENCEPHALOPATHY; E16.2 - HYPOGLYCEMIA, UNSPECIFIED (6) Anemia Code(s): D64.9 - ANEMIA, UNSPECIFIED (7) CAD (coronary artery disease) Code(s): I25.10 - ATHSCL HEART DISEASE OF [place] CORONARY ARTERY W/O ANG PCTRS (8) ESRD (end stage renal disease) on dialysis Code(s): N18.6 - END STAGE RENAL DISEASE; Z99.2 - DEPENDENCE ON RENAL DIALYSIS
[2018-04-02] MEDS: HEPARIN NA (PORCINE) 5,000 UNITS/ML 1ML VIAL SQ SCH ×2 (11:46→22:10)
[2018-04-02] MEDS: COLLAGENASE CLOSTRIDIUM HIST. 30 GRAMS TUBE TP SCH (11:53)
[2018-04-02] MEDS: ZINC OXIDE 20% TOPICAL OINTMENT 454 GM JAR TP SCH (11:53)
[2018-04-02] MEDS ORDERED: ARTIFICIAL TEARS (POLYVINYL ALCOHOL) OPTH DROPS OU PRN (15:12)
--- NOTE | 2018-04-02 15:39 | PN ---
Progress Note (short form) - Note Progress Note: Podiatry F/U: Seen/evaluated at bedside NAD. Denies F/V/N/C/SOB/CP. Did have low grade temp to 100.7 F. Currently afebrile. DONY: R foot: posterolateral pressure ulcer unstageable with dry necrotic eschar, no bogginess, no probing to bone, no purulent drainage, no fluctuance, minimal periwound erythema, no streaking cellulitis, no signs of active infection. Moderate tenderness to palpation. L foot: posterior pressure ulcer unstageable with dry necrotic eschar, no bogginess, no probing to bone, no purulent drainage, no fluctuance, minimal periwound erythema, no streaking cellulitis, no signs of active infection. Moderate tenderness to palpation. Imp: 72 year old DM, PVD M with bilateral heel pressure ulcers 1. IV abx per ID 2. Bone scan negative for osteomyelitis 3. Discussed treatment options with patient. Patient wants me to discuss with as far as treatment goes. 4. Would recommend f/u with his vascular surgeon. 5. Will follow. Lorean Wilson DPM
--- NOTE | 2018-04-02 16:52 | PN ---
Progress Note, Physician History of Present Illness: Pt seen and examined at bedside. He is awake and appears comfortable. - Current Medication List Current Medications: Active Medications Acetaminophen (Tylenol -) 650 mg PO Q6H PRN PRN Reason: PAIN LEVEL 1-5 Amlodipine Besylate (Norvasc -) 10 mg PO DAILY [facility] Artificial Tears (Artificial Tears) 1 drop OU Q12H PRN PRN Reason: DRY EYES Aspirin (Ecotrin -) 81 mg PO DAILY [facility] Atorvastatin Calcium (Lipitor -) 40 mg PO HS [facility] Calcium Acetate (Phoslo -) 667 mg PO TIDCM [facility] Last Admin: 04/02/18 16:38 Dose: Not Given Carvedilol (Coreg -) 12.5 mg PO BID [facility] Citalopram Hydrobromide (Celexa -) 20 mg PO DAILY [facility] Clopidogrel Bisulfate (Plavix -) 75 mg PO DAILY [facility] Collagenase (Santyl -) 1 applic TP DAILY [facility]; Protocol Divalproex Sodium (Depakote -) 125 mg PO BID [facility] Docusate Sodium (Colace -) 300 mg PO HS [facility] Folic Acid (Folic Acid -) 1 mg PO DAILY [facility] Gabapentin (Neurontin -) 100 mg PO TID [facility] Haloperidol (Haldol -) 2 mg PO HS [facility] Heparin Sodium (Porcine) (Heparin -) 5,000 unit SQ BID [facility] Piperacillin Sod/Tazobactam (Sod 2.25 gm/ Dextrose) 50 mls @ 100 mls/hr IVPB Q8H-IV [facility]; Protocol Insulin Aspart (Novolog Vial Sliding Scale -) 1 vial SQ ACHS [facility]; Protocol Insulin Detemir (Levemir Vial) 6 units SQ HS [facility] Mirtazapine (Remeron -) 15 mg PO HS [facility] Multi-Ingredient Ointment (Zinc Oxide 20% Topical Oint) 1 gm TP DAILY [facility] Multivitamins (Total B With C -) 1 each PO DAILY [facility] Ranitidine HCl (Zantac -) 150 mg PO DAILY [facility] Tamsulosin HCl (Flomax -) 0.4 mg PO HS [facility] - Objective Vital Signs: Vital Signs Temperature 98.9 F 04/02/18 06:00 Pulse Rate 60 04/02/18 06:00 Respiratory Rate 20 04/01/18 22:00 Blood Pressure 136/47 04/02/18 06:00 O2 Sat by Pulse Oximetry (%) 98 04/02/18 08:46 Constitutional: Yes: Calm Eyes: Yes: Conjunctiva Clear HENT: Yes: Atraumatic Neck: Yes: Supple Cardiovascular: Yes: S1, S2 Respiratory: Yes: CTA Bilaterally Gastrointestinal: Yes: Normal Bowel Sounds, Soft Genitourinary: Yes: WNL Musculoskeletal: Yes: WNL Edema: No Wound/Incision: Yes: Dressing Dry and Intact Neurological: Yes: Confusion Labs: CBC, BMP 03/29/18 06:15 03/29/18 06:15 INR, PTT INR 1.20 (0.83-1.09) H 03/28/18 22:22 Problem List - Problems (1) Diabetes Code(s): E11.9 - TYPE 2 DIABETES MELLITUS WITHOUT COMPLICATIONS (2) ESRD (end stage renal disease) on dialysis Code(s): N18.6 - END STAGE RENAL DISEASE; Z99.2 - DEPENDENCE ON RENAL DIALYSIS (3) Syncope Code(s): R55 - SYNCOPE AND COLLAPSE (4) Anemia Code(s): D64.9 - ANEMIA, UNSPECIFIED Assessment/Plan Current Medications Generic Name Dose Route Start Last Admin Trade Name Freq PRN Reason Stop Dose Admin Acetaminophen 650 mg 04/02/18 15:12 Tylenol - PO Q6H PRN PAIN LEVEL 1-5 Amlodipine Besylate 10 mg 04/03/18 10:00 Norvasc - PO DAILY [facility] Artificial Tears 1 drop 04/02/18 15:12 Artificial Tears OU Q12H PRN DRY EYES Aspirin 81 mg 04/03/18 10:00 Ecotrin - PO DAILY [facility] Atorvastatin Calcium 40 mg 04/02/18 22:00 Lipitor - PO HS [facility] Calcium Acetate 667 mg 04/02/18 17:30 04/02/18 16:38 Phoslo - PO Not Given TIDCM [facility] Carvedilol 12.5 mg 04/02/18 22:00 Coreg - PO BID [facility] Citalopram Hydrobromide 20 mg 04/03/18 10:00 Celexa - PO DAILY [facility] Clopidogrel Bisulfate 75 mg 04/03/18 10:00 Plavix - PO DAILY [facility] Collagenase 1 applic 04/03/18 10:00 Santyl - TP DAILY [facility] Protocol Divalproex Sodium 125 mg 04/02/18 22:00 Depakote - PO BID [facility] Docusate Sodium 300 mg 04/02/18 22:00 Colace - PO HS [facility] Folic Acid 1 mg 04/03/18 10:00 Folic Acid - PO DAILY [facility] Gabapentin 100 mg 04/02/18 22:00 Neurontin - PO TID [facility] Haloperidol 2 mg 04/02/18 22:00 Haldol - PO HS [facility] Heparin Sodium (Porcine) 5,000 unit 04/02/18 22:00 Heparin - SQ BID [facility] Piperacillin Sod/Tazobactam 50 mls @ 100 mls/hr 04/02/18 18:00 Sod 2.25 gm/ Dextrose IVPB Q8H-IV [facility] Protocol Insulin Aspart 1 vial 04/02/18 16:30 Novolog Vial Sliding Scale - SQ ACHS [facility] Protocol Insulin Detemir 6 units 04/02/18 22:00 Levemir Vial SQ HS [facility] Mirtazapine 15 mg 04/02/18 22:00 Remeron - PO HS [facility] Multi-Ingredient Ointment 1 gm 04/03/18 10:00 Zinc Oxide 20% Topical Oint TP DAILY [facility] Multivitamins 1 each 04/03/18 10:00 Total B With C - PO DAILY [facility] Ranitidine HCl 150 mg 04/03/18 10:00 Zantac - PO DAILY [facility] Tamsulosin HCl 0.4 mg 04/02/18 22:00 Flomax - PO HS [facility] Impression 1. ESRD 2. anemia 3. HTN 4. Chol 5. DM 6. BPH 7. CAD 8. hypoglycemia 9. CHF 10. syncope 11. depression Plan - HD in am - monitor glucose - cont epogen - cont wound care - will follow Dr Donovan
[2018-04-02] MEDS ORDERED: IBUPROFEN 400 MG TABLET (FP) PO ONE (17:30)
[2018-04-02 19:55] LABS: BASO % 0.5 % (0-2.0); EOS % 1.2 % (0-4.5); HEMATOCRIT 20.2 % (35.4-49); LYMPH % 9.2 % (8-40); MCHC 33.9 g/dl (32.0-35.9); MEAN CELL VOLUME 97.3 fl (80-96); MONO % 10.6 % (3.8-10.2); NEUT % 78.5 % (42.8-82.8); PLATELET COUNT 281 K/MM3 (134-434); RBC 2.08 M/mm3 (4.00-5.60); RDW 14.5 % (11.9-15.9); WHITE BLOOD COUNT 10.2 K/mm3 (4.0-10.0)
[2018-04-02 20:01] LABS: HEMOGLOBIN 6.9 GM/dL (11.7-16.9)
[2018-04-02] MEDS: INSULIN (LEVEMIR) 100 UNITS/ML UNITS SQ SCH (22:11)
[2018-04-02] MEDS: ATORVASTATIN CA 40 MG TABLET (FP) PO SCH (22:12)
[2018-04-02] MEDS: TAMSULOSIN HCL 0.4 MG CAP.ER.24H (FP) PO SCH (22:12)
[2018-04-02] MEDS: DOCUSATE SODIUM 100 MG CAPSULE (FP) PO SCH (22:12)
[2018-04-02] MEDS: MIRTAZAPINE 15 MG TABLET (FP) PO SCH (22:47)
[2018-04-02] MEDS: HALOPERIDOL 1 MG TABLET (FP) PO SCH (22:47)
[2018-04-03 00:07] LABS: HBSAG SCREEN Negative (Negative); HEP A AB, IGM Negative (Negative); HEP B CORE AB, TOT Negative (Negative)
[2018-04-03] MEDS ORDERED: DEXTROSE 5%-WATER - 50 ML IVPB ONE ×3 (01:43→18:09)
[2018-04-03] MEDS ORDERED: PIPERACILLIN/TAZOBACTAM 2.25 GM VIAL IVPB ONE ×3 (01:43→18:09)
[2018-04-03] MEDS: PIPERACILLIN/TAZOB 2.25 GM 2.25 GM in DEXTROSE 5%-WATER - 50 ML IVPB SCH ×3 (03:15→18:42)
[2018-04-03] MEDS: GABAPENTIN 100 MG CAPSULE (FP) PO SCH ×3 (06:09→21:15)
[2018-04-03] MEDS: INSULIN SLIDING SCALE (NOVOLOG) 1 VIAL SQ SCH ×4 (06:28→21:17)
[2018-04-03 07:29] LABS: BASO % 0.6 % (0-2.0); EOS % 2.4 % (0-4.5); HEMATOCRIT 23.2 % (35.4-49); LYMPH % 6.5 % (8-40); MCH 32.3 pg (25.7-33.7); MCHC 34.2 g/dl (32.0-35.9); MEAN CELL VOLUME 94.3 fl (80-96); MEAN PLT VOLUME 6.7 fl (7.5-11.1); MONO % 10.9 % (3.8-10.2); NEUT % 79.6 % (42.8-82.8); PLATELET COUNT 221 K/MM3 (134-434); RBC 2.47 M/mm3 (4.00-5.60); WHITE BLOOD COUNT 10.1 K/mm3 (4.0-10.0)
[2018-04-03 07:56] LABS: CHLORIDE 99 mmol/L (98-107); POTASSIUM 3.9 mmol/L (3.5-5.1); SODIUM 141 mmol/L (136-145)
[2018-04-03 08:03] LABS: ALK PHOS 69 U/L (45-117); ANION GAP 8 MMOL/L (8-16); BILIRUBIN,TOTAL 0.4 mg/dL (0.2-1.0); BLOOD UREA NITROGEN 56 mg/dL (7-18); CALCIUM 7.9 mg/dL (8.5-10.1); CO2 34 mmol/L (21-32); CREATININE 5.5 mg/dL (0.7-1.3); GLUCOSE,RANDOM 111 mg/dL (74-106); SGOT/AST 24 U/L (15-37); SGPT/ALT 32 U/L (12-78)
[2018-04-03] MEDS: CALCIUM ACETATE 667 MG CAPSULE (FP) PO SCH ×3 (09:55→18:42)
[2018-04-03] MEDS: HEPARIN NA (PORCINE) 5,000 UNITS/ML 1ML VIAL SQ SCH ×2 (09:55→21:14)
[2018-04-03] MEDS: ASPIRIN COATED 81 MG TABLET.EC PO SCH (09:56)
[2018-04-03] MEDS: VITAMIN B COMPLEX W/C COMBO TABLET (FP) PO SCH (09:56)
[2018-04-03] MEDS: RANITIDINE HCL 150 MG TABLET (FP) PO SCH (09:56)
[2018-04-03] MEDS: FOLIC ACID 1 MG TABLET (FP) PO SCH (09:56)
[2018-04-03] MEDS: CITALOPRAM HYDROBROMIDE 20 MG TABLET (FP) PO SCH (09:57)
[2018-04-03] MEDS: CLOPIDOGREL BISULFATE 75 MG TABLET (FP) PO SCH (09:58)
[2018-04-03] MEDS: DIVALPROEX SODIUM 125 MG TABLET E.C. PO SCH ×2 (09:58→21:15)
[2018-04-03] MEDS: ZINC OXIDE 20% TOPICAL OINTMENT 454 GM JAR TP SCH (09:59)
[2018-04-03] MEDS: COLLAGENASE CLOSTRIDIUM HIST. 30 GRAMS TUBE TP SCH (09:59)
[2018-04-03] MEDS ORDERED: amLODIPine BESYLATE 10 MG TABLET (FP) PO SCH (10:00)
--- NOTE | 2018-04-03 11:14 | PN ---
Progress Note (short form) - Note Progress Note: patient seen and examined. 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 Noriega to see the patient--- we will request Discussed with nursing staff also. Vital Signs Temp 98.8 F 04/03/18 06:00 Pulse 51 L 04/03/18 06:00 Resp 18 04/03/18 06:00 BP 100/42 04/03/18 06:00 Pulse Ox 98 04/02/18 21:00 Intake & Output 04/02/18 04/02/18 04/03/18 11:59 23:59 11:59 Intake Total 290 0 Balance 290 0 Weight 156 lb 3.2 oz Intake: IVPB 50 Oral 240 0 Other: Voiding Method Diaper Diaper Incontinent # Unmeasured Voids Void 2 1 Weight Measurement Method Patient Lift Scale Active Medications Acetaminophen (Tylenol -) 650 mg PO Q6H PRN PRN Reason: PAIN LEVEL 1-5 Amlodipine Besylate (Norvasc -) 10 mg PO DAILY [facility] Artificial Tears (Artificial Tears) 1 drop OU Q12H PRN PRN Reason: DRY EYES Aspirin (Ecotrin -) 81 mg PO DAILY [facility] Last Admin: 04/03/18 09:56 Dose: 81 mg Atorvastatin Calcium (Lipitor -) 40 mg PO HS [facility] Last Admin: 04/02/18 22:12 Dose: 40 mg Calcium Acetate (Phoslo -) 667 mg PO TIDCM [facility] Last Admin: 04/03/18 09:55 Dose: 667 mg Carvedilol (Coreg -) 12.5 mg PO BID [facility] Last Admin: 04/02/18 22:12 Dose: 12.5 mg Citalopram Hydrobromide (Celexa -) 20 mg PO DAILY [facility] Last Admin: 04/03/18 09:57 Dose: 20 mg Clopidogrel Bisulfate (Plavix -) 75 mg PO DAILY [facility] Last Admin: 04/03/18 09:58 Dose: 75 mg Collagenase (Santyl -) 1 applic TP DAILY [facility]; Protocol Last Admin: 04/03/18 09:59 Dose: 1 applic Divalproex Sodium (Depakote -) 125 mg PO BID [facility] Last Admin: 04/03/18 09:58 Dose: 125 mg Docusate Sodium (Colace -) 300 mg PO [facility] Last Admin: 04/02/18 22:12 Dose: 300 mg Epoetin Jose Francisco (Epogen -) 10,000 unit IVPUSH ONCE ONE Stop: 04/03/18 16:56 Folic Acid (Folic Acid -) 1 mg PO DAILY [facility] Last Admin: 04/03/18 09:56 Dose: 1 mg Gabapentin (Neurontin -) 100 mg PO TID [facility] Last Admin: 04/03/18 06:09 Dose: Not Given Haloperidol (Haldol -) 2 mg PO [facility] Last Admin: 04/02/18 22:47 Dose: Not Given Heparin Sodium (Porcine) (Heparin -) 5,000 unit SQ BID [facility] Last Admin: 04/03/18 09:55 Dose: 5,000 unit Piperacillin Sod/Tazobactam (Sod 2.25 gm/ Dextrose) 50 mls @ 100 mls/hr IVPB Q8H-IV [facility]; Protocol Last Admin: 04/03/18 09:59 Dose: 100 mls/hr Sodium Chloride (Normal Saline -) 250 mls @ 3,000 mls/hr IV PRN PRN PRN Reason: Hypotension during Dialysis Stop: 04/03/18 16:55 Insulin Aspart (Novolog Vial Sliding Scale -) 1 vial SQ [facility]; Protocol Last Admin: 04/03/18 06:28 Dose: Not Given Insulin Detemir (Levemir Vial) 6 units SQ [facility] Last Admin: 04/02/18 22:11 Dose: 6 units Mirtazapine (Remeron -) 15 mg PO [facility] Last Admin: 04/02/18 22:47 Dose: Not Given Multi-Ingredient Ointment (Zinc Oxide 20% Topical Oint) 1 gm TP DAILY [facility] Last Admin: 04/03/18 09:59 Dose: 1 applic Multivitamins (Total B With C -) 1 each PO DAILY [facility] Last Admin: 04/03/18 09:56 Dose: 1 each Ranitidine HCl (Zantac -) 150 mg PO DAILY [facility] Last Admin: 04/03/18 09:56 Dose: 150 mg Tamsulosin HCl (Flomax -) 0.4 mg PO [facility] Last Admin: 04/02/18 22:12 Dose: 0.4 mg CBC, BMP 08/29/18 06:40 04/03/18 06:40 Microbiology 03/29/18 07:44 Gram Stain - Final Foot - Right Heel Wound Culture - Final Staphylococcus Aureus Morganella Morganii Enterococcus Faecalis Klebsiella Pneumoniae 03/29/18 12:56 Blood Culture - Preliminary Blood - Peripheral Venous NO GROWTH OBTAINED AFTER 96 HOURS, INCUBATION TO CONTINUE FOR 1 DAYS. 03/29/18 11:56 Blood Culture - Preliminary Blood - Peripheral Venous NO GROWTH OBTAINED AFTER 96 HOURS, INCUBATION TO CONTINUE FOR 1 DAYS. Physical exam. Constitutional: Yes: No Distress, Comfortable. awake Neck: Yes: Supple. no jvd Cardiovascular: Yes: Regular Rate and Rhythm Respiratory: Yes: Diminished Gastrointestinal: Yes: Soft/ non tender Edema: No Wound/Incision: Yes: Bilateral heel ulcers -- dressing +--detailed podiatry-- note reviewed Neurological: Yes: Alert Psychiatric: Yes: Alert Labs: Assessment/Plan clinically stable Continue present care abx bone scan-ve Arterial doppler-- Atherosclertic disease monitor bgm--under control dialysis per renal will follow daily oob - chair consult Dr. Noriega discussed with nursing staff also. Problem List - Problems (1) Diabetes Code(s): E11.9 - TYPE 2 DIABETES MELLITUS WITHOUT COMPLICATIONS (2) ESRD (end stage renal disease) on dialysis Code(s): N18.6 - END STAGE RENAL DISEASE; Z99.2 - DEPENDENCE ON RENAL DIALYSIS (3) Infected pressure ulcer Code(s): L89.90 - PRESSURE ULCER OF UNSPECIFIED SITE, UNSPECIFIED STAGE; L08.9 - LOCAL INFECTION OF THE SKIN AND SUBCUTANEOUS TISSUE, UNSP (4) Syncope Code(s): R55 - SYNCOPE AND COLLAPSE (5) Acute metabolic encephalopathy due to hypoglycemia Code(s): G93.41 - METABOLIC ENCEPHALOPATHY; E16.2 - HYPOGLYCEMIA, UNSPECIFIED (6) Anemia Code(s): D64.9 - ANEMIA, UNSPECIFIED (7) CAD (coronary artery disease) Code(s): I25.10 - ATHSCL HEART DISEASE OF [place] CORONARY ARTERY W/O ANG PCTRS (8) ESRD (end stage renal disease) on dialysis Code(s): N18.6 - END STAGE RENAL DISEASE; Z99.2 - DEPENDENCE ON RENAL DIALYSIS
[2018-04-03] MEDS: CARVEDILOL 12.5 MG TABLET (FP) PO SCH ×2 (12:39→21:17)
--- NOTE | 2018-04-03 12:59 | PN ---
Progress Note, Physician History of Present Illness: Pt seen and examined bedside. He is awake however confused. - Current Medication List Current Medications: Active Medications Acetaminophen (Tylenol -) 650 mg PO Q6H PRN PRN Reason: PAIN LEVEL 1-5 Amlodipine Besylate (Norvasc -) 10 mg PO DAILY [facility] Last Admin: 04/03/18 12:39 Dose: Not Given Artificial Tears (Artificial Tears) 1 drop OU Q12H PRN PRN Reason: DRY EYES Aspirin (Ecotrin -) 81 mg PO DAILY [facility] Last Admin: 04/03/18 09:56 Dose: 81 mg Atorvastatin Calcium (Lipitor -) 40 mg PO HS [facility] Last Admin: 04/02/18 22:12 Dose: 40 mg Calcium Acetate (Phoslo -) 667 mg PO TIDCM [facility] Last Admin: 04/03/18 09:55 Dose: 667 mg Carvedilol (Coreg -) 12.5 mg PO BID [facility] Last Admin: 04/03/18 12:39 Dose: Not Given Citalopram Hydrobromide (Celexa -) 20 mg PO DAILY [facility] Last Admin: 04/03/18 09:57 Dose: 20 mg Clopidogrel Bisulfate (Plavix -) 75 mg PO DAILY [facility] Last Admin: 04/03/18 09:58 Dose: 75 mg Collagenase (Santyl -) 1 applic TP DAILY [facility]; Protocol Last Admin: 04/03/18 09:59 Dose: 1 applic Divalproex Sodium (Depakote -) 125 mg PO BID [facility] Last Admin: 04/03/18 09:58 Dose: 125 mg Docusate Sodium (Colace -) 300 mg PO HS [facility] Last Admin: 04/02/18 22:12 Dose: 300 mg Epoetin Jose Francisco (Epogen -) 10,000 unit IVPUSH ONCE ONE Stop: 04/03/18 16:56 Folic Acid (Folic Acid -) 1 mg PO DAILY [facility] Last Admin: 04/03/18 09:56 Dose: 1 mg Gabapentin (Neurontin -) 100 mg PO TID [facility] Last Admin: 04/03/18 06:09 Dose: Not Given Haloperidol (Haldol -) 2 mg PO HS [facility] Last Admin: 04/02/18 22:47 Dose: Not Given Heparin Sodium (Porcine) (Heparin -) 5,000 unit SQ BID [facility] Last Admin: 08/29/18 09:55 Dose: 5,000 unit Piperacillin Sod/Tazobactam (Sod 2.25 gm/ Dextrose) 50 mls @ 100 mls/hr IVPB Q8H-IV [facility]; Protocol Last Admin: 04/03/18 09:59 Dose: 100 mls/hr Sodium Chloride (Normal Saline -) 250 mls @ 3,000 mls/hr IV PRN PRN PRN Reason: Hypotension during Dialysis Stop: 04/03/18 16:55 Insulin Aspart (Novolog Vial Sliding Scale -) 1 vial SQ [facility]; Protocol Last Admin: 04/03/18 12:38 Dose: Not Given Insulin Detemir (Levemir Vial) 6 units SQ [facility] Last Admin: 04/02/18 22:11 Dose: 6 units Mirtazapine (Remeron -) 15 mg PO HS [facility] Last Admin: 04/02/18 22:47 Dose: Not Given Multi-Ingredient Ointment (Zinc Oxide 20% Topical Oint) 1 gm TP DAILY [facility] Last Admin: 04/03/18 09:59 Dose: 1 applic Multivitamins (Total B With C -) 1 each PO DAILY [facility] Last Admin: 04/03/18 09:56 Dose: 1 each Ranitidine HCl (Zantac -) 150 mg PO DAILY [facility] Last Admin: 04/03/18 09:56 Dose: 150 mg Tamsulosin HCl (Flomax -) 0.4 mg PO [facility] Last Admin: 04/02/18 22:12 Dose: 0.4 mg - Objective Vital Signs: Vital Signs Temperature 98.8 F 04/03/18 06:00 Pulse Rate 51 L 04/03/18 06:00 Respiratory Rate 18 04/03/18 06:00 Blood Pressure 100/42 04/03/18 06:00 O2 Sat by Pulse Oximetry (%) 98 04/02/18 21:00 Constitutional: Yes: Calm Eyes: Yes: Conjunctiva Clear HENT: Yes: Atraumatic Cardiovascular: Yes: S1, S2 Respiratory: Yes: CTA Bilaterally Gastrointestinal: Yes: Soft Genitourinary: Yes: Incontinence Musculoskeletal: Yes: WNL Edema: No Neurological: Yes: Confusion Labs: CBC, BMP 04/03/18 06:40 04/03/18 06:40 INR, PTT INR 1.20 (0.83-1.09) H 03/28/18 22:22 Problem List - Problems (1) Diabetes Code(s): E11.9 - TYPE 2 DIABETES MELLITUS WITHOUT COMPLICATIONS (2) ESRD (end stage renal disease) on dialysis Code(s): N18.6 - END STAGE RENAL DISEASE; Z99.2 - DEPENDENCE ON RENAL DIALYSIS (3) Syncope Code(s): R55 - SYNCOPE AND COLLAPSE (4) Anemia Code(s): D64.9 - ANEMIA, UNSPECIFIED Assessment/Plan Current Medications Generic Name Dose Route Start Last Admin Trade Name Freq PRN Reason Stop Dose Admin Acetaminophen 650 mg 04/02/18 15:12 Tylenol - PO Q6H PRN PAIN LEVEL 1-5 Amlodipine Besylate 10 mg 04/03/18 10:00 04/03/18 12:39 Norvasc - PO Not Given DAILY [facility] Artificial Tears 1 drop 04/02/18 15:12 Artificial Tears OU Q12H PRN DRY EYES Aspirin 81 mg 04/03/18 10:00 04/03/18 09:56 Ecotrin - PO 81 mg DAILY [facility] Administration Atorvastatin Calcium 40 mg 04/02/18 22:00 04/02/18 22:12 Lipitor - PO 40 mg HS [facility] Administration Calcium Acetate 667 mg 04/02/18 17:30 04/03/18 09:55 Phoslo - PO 667 mg TIDCM [facility] Administration Carvedilol 12.5 mg 04/02/18 22:00 04/03/18 12:39 Coreg - PO Not Given BID [facility] Citalopram Hydrobromide 20 mg 04/03/18 10:00 04/03/18 09:57 Celexa - PO 20 mg DAILY [facility] Administration Clopidogrel Bisulfate 75 mg 04/03/18 10:00 04/03/18 09:58 Plavix - PO 75 mg DAILY [facility] Administration Collagenase 1 applic 04/03/18 10:00 04/03/18 09:59 Santyl - TP 1 applic DAILY [facility] Administration Protocol Divalproex Sodium 125 mg 04/02/18 22:00 04/03/18 09:58 Depakote - PO 125 mg BID [facility] Administration Docusate Sodium 300 mg 04/02/18 22:00 04/02/18 22:12 Colace - PO 300 mg HS [facility] Administration Epoetin Jose Francisco 10,000 unit 04/03/18 16:55 Epogen - IVPUSH 04/03/18 16:56 ONCE ONE Folic Acid 1 mg 04/03/18 10:00 04/03/18 09:56 Folic Acid - PO 1 mg DAILY [facility] Administration Gabapentin 100 mg 04/02/18 22:00 04/03/18 06:09 Neurontin - PO Not Given TID [facility] Haloperidol 2 mg 04/02/18 22:00 04/02/18 22:47 Haldol - PO Not Given HS [facility] Heparin Sodium (Porcine) 5,000 unit 04/02/18 22:00 04/03/18 09:55 Heparin - SQ 5,000 unit BID [facility] Administration Piperacillin Sod/Tazobactam 50 mls @ 100 mls/hr 04/02/18 18:00 04/03/18 09:59 Sod 2.25 gm/ Dextrose IVPB 100 mls/hr Q8H-IV [facility] Administration Protocol Sodium Chloride 250 mls @ 3,000 mls/hr 04/02/18 16:55 Normal Saline - IV 04/03/18 16:55 PRN PRN Hypotension during Dialysis Insulin Aspart 1 vial 04/02/18 16:30 04/03/18 12:38 Novolog Vial Sliding Scale - SQ Not Given ACHS [facility] Protocol Insulin Detemir 6 units 04/02/18 22:00 04/02/18 22:11 Levemir Vial SQ 6 units HS [facility] Administration Mirtazapine 15 mg 04/02/18 22:00 04/02/18 22:47 Remeron - PO Not Given HS [facility] Multi-Ingredient Ointment 1 gm 04/03/18 10:00 04/03/18 09:59 Zinc Oxide 20% Topical Oint TP 1 applic DAILY [facility] Administration Multivitamins 1 each 04/03/18 10:00 04/03/18 09:56 Total B With C - PO 1 each DAILY [facility] Administration Ranitidine HCl 150 mg 04/03/18 10:00 04/03/18 09:56 Zantac - PO 150 mg DAILY [facility] Administration Tamsulosin HCl 0.4 mg 04/02/18 22:00 04/02/18 22:12 Flomax - PO 0.4 mg HS [facility] Administration Impression 1. ESRD 2. anemia 3. HTN 4. Chol 5. DM 6. BPH 7. CAD 8. hypoglycemia 9. CHF 10. syncope 11. depression Plan - HD today - cont wound care to legs - cont epogen - hold norvasc as bp has been low - will follow Dr Donovan
[2018-04-03] MEDS ORDERED: SODIUM CHLORIDE 250 ML IV PRN (15:40)
[2018-04-03 15:45] LABS: MCH 32.8 pg (25.7-33.7); MCHC 34.9 g/dl (32.0-35.9); MEAN PLT VOLUME 7.1 fl (7.5-11.1); PLATELET COUNT 243 K/MM3 (134-434); RBC 2.45 M/mm3 (4.00-5.60); RDW 16.2 % (11.9-15.9); WHITE BLOOD COUNT 7.3 K/mm3 (4.0-10.0)
[2018-04-03] MEDS ORDERED: EPOETIN ALFA 10,000 UNIT/1 ML VIAL IVPUSH ONE (15:45)
[2018-04-03 16:11] LABS: ANION GAP 10 MMOL/L (8-16); BLOOD UREA NITROGEN 50 mg/dL (7-18); CALCIUM 7.8 mg/dL (8.5-10.1); CHLORIDE 100 mmol/L (98-107); CO2 31 mmol/L (21-32); CREATININE 4.6 mg/dL (0.7-1.3); GLUCOSE,RANDOM 246 mg/dL (74-106); POTASSIUM 3.9 mmol/L (3.5-5.1); SODIUM 141 mmol/L (136-145)
[2018-04-03] MEDS: MIRTAZAPINE 15 MG TABLET (FP) PO SCH (21:16)
[2018-04-03] MEDS: TAMSULOSIN HCL 0.4 MG CAP.ER.24H (FP) PO SCH (21:16)
[2018-04-03] MEDS: HALOPERIDOL 1 MG TABLET (FP) PO SCH (21:16)
[2018-04-03] MEDS: ATORVASTATIN CA 40 MG TABLET (FP) PO SCH (21:17)
[2018-04-03] MEDS: INSULIN (LEVEMIR) 100 UNITS/ML UNITS SQ SCH (21:17)
[2018-04-03] MEDS: DOCUSATE SODIUM 100 MG CAPSULE (FP) PO SCH (23:47)
[2018-04-04] MEDS ORDERED: DEXTROSE 5%-WATER - 50 ML IVPB ONE ×4 (01:38→18:00)
[2018-04-04] MEDS ORDERED: PIPERACILLIN/TAZOBACTAM 2.25 GM VIAL IVPB ONE ×4 (01:38→17:59)
[2018-04-04] MEDS: PIPERACILLIN/TAZOB 2.25 GM 2.25 GM in DEXTROSE 5%-WATER - 50 ML IVPB SCH ×3 (02:19→17:47)
[2018-04-04] MEDS: GABAPENTIN 100 MG CAPSULE (FP) PO SCH ×3 (05:53→21:53)
[2018-04-04] MEDS: INSULIN SLIDING SCALE (NOVOLOG) 1 VIAL SQ SCH ×4 (06:00→21:53)
--- NOTE | 2018-04-04 08:41 | PN ---
Progress Note (short form) - Note Progress Note: Podiatry F/U: Seen/evaluated at bedside NAD. Denies F/V/N/C/SOB/CP. AFebrile. White count down. 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 DONY: Bilateral necrotic heel ulcers unstageable with dry eschar, no purulent drainage , no fluctuance, mild periwound erythema, no streaking cellulitis, no soft tissue crepitus, no signs of active infection. Moderate tenderness to palpation. Bone scan: negative for osteomyelitis bilaterally Imp: 72 year old DM, PVD M with bilateral necrotic heel ulcers 1. IV abx per ID 2. Continue local wound care 3. Heel offloading measures 4. Discussed treatment options with patient's this morning. Will hold off on aggressive intervention. She understands that if condition worsens or he gets infection will need debridement of the heels. He would benefit from HBO Tx evaluation as outpatient. He needs follow up with me in the wound healing center. [phone]. We should arrange with [facility] upon discharge. Lorena Wilson DPM
[2018-04-04] MEDS: CALCIUM ACETATE 667 MG CAPSULE (FP) PO SCH ×3 (09:15→17:49)
--- NOTE | 2018-04-04 10:52 | PN ---
Progress Note (short form) - Note Progress Note: patient seen and examined. Comfortable. No distress Vital Signs Temp 97.7 F 04/04/18 05:26 Pulse 60 04/04/18 05:26 Resp 18 04/04/18 05:26 BP 129/47 04/04/18 05:26 Pulse Ox 96 04/03/18 21:00 Intake & Output 04/03/18 04/03/18 04/04/18 11:59 23:59 11:59 Intake Total 0 500 450 Balance 0 500 450 Weight 156 lb 3.2 oz Intake: Oral 0 500 450 Other: Voiding Method Incontinent Incontinent Incontinent # Unmeasured Voids Void 1 Bowel Movement Yes No Weight Measurement Method Patient Lift Scale Active Medications Acetaminophen (Tylenol -) 650 mg PO Q6H PRN PRN Reason: PAIN LEVEL 1-5 Artificial Tears (Artificial Tears) 1 drop OU Q12H PRN PRN Reason: DRY EYES Aspirin (Ecotrin -) 81 mg PO DAILY [facility] Last Admin: 04/03/18 09:56 Dose: 81 mg Atorvastatin Calcium (Lipitor -) 40 mg PO [facility] Last Admin: 04/03/18 21:17 Dose: 40 mg Calcium Acetate (Phoslo -) 667 mg PO TIDCM [facility] Last Admin: 04/04/18 09:15 Dose: Not Given Carvedilol (Coreg -) 12.5 mg PO BID [facility] Last Admin: 04/03/18 21:17 Dose: 12.5 mg Citalopram Hydrobromide (Celexa -) 20 mg PO DAILY [facility] Last Admin: 04/03/18 09:57 Dose: 20 mg Clopidogrel Bisulfate (Plavix -) 75 mg PO DAILY [facility] Last Admin: 04/03/18 09:58 Dose: 75 mg Collagenase (Santyl -) 1 applic TP DAILY [facility]; Protocol Last Admin: 04/03/18 09:59 Dose: 1 applic Divalproex Sodium (Depakote -) 125 mg PO BID [facility] Last Admin: 04/03/18 21:15 Dose: 125 mg Docusate Sodium (Colace -) 300 mg PO HS [facility] Last Admin: 04/03/18 23:47 Dose: 300 mg Folic Acid (Folic Acid -) 1 mg PO DAILY [facility] Last Admin: 04/03/18 09:56 Dose: 1 mg Gabapentin (Neurontin -) 100 mg PO TID [facility] Last Admin: 04/04/18 05:53 Dose: 100 mg Haloperidol (Haldol -) 2 mg PO HS [facility] Last Admin: 04/03/18 21:16 Dose: 2 mg Heparin Sodium (Porcine) (Heparin -) 5,000 unit SQ BID [facility] Last Admin: 04/03/18 21:14 Dose: 5,000 unit Piperacillin Sod/Tazobactam (Sod 2.25 gm/ Dextrose) 50 mls @ 100 mls/hr IVPB Q8H-IV [facility]; Protocol Last Admin: 04/04/18 02:19 Dose: 100 mls/hr Insulin Aspart (Novolog Vial Sliding Scale -) 1 vial SQ ACHS [facility]; Protocol Last Admin: 04/04/18 06:00 Dose: 4 units Insulin Detemir (Levemir Vial) 6 units SQ [facility] Last Admin: 04/03/18 21:17 Dose: 6 units Mirtazapine (Remeron -) 15 mg PO [facility] Last Admin: 04/03/18 21:16 Dose: 15 mg Multi-Ingredient Ointment (Zinc Oxide 20% Topical Oint) 1 gm TP DAILY [facility] Last Admin: 04/03/18 09:59 Dose: 1 applic Multivitamins (Total B With C -) 1 each PO DAILY [facility] Last Admin: 04/03/18 09:56 Dose: 1 each Ranitidine HCl (Zantac -) 150 mg PO DAILY [facility] Last Admin: 04/03/18 09:56 Dose: 150 mg Tamsulosin HCl (Flomax -) 0.4 mg PO [facility] Last Admin: 04/03/18 21:16 Dose: 0.4 mg CBC, BMP 04/03/18 15:00 04/03/18 15:00 Microbiology 04/02/18 19:00 Blood Culture - Preliminary Blood - Peripheral Venous NO GROWTH OBTAINED AFTER 24 HOURS, INCUBATION TO CONTINUE FOR 4 DAYS. 04/02/18 19:00 Blood Culture - Preliminary Blood - Peripheral Venous NO GROWTH OBTAINED AFTER 24 HOURS, INCUBATION TO CONTINUE FOR 4 DAYS. 03/29/18 12:56 Blood Culture - Final Blood - Peripheral Venous NO GROWTH AFTER 5 DAYS INCUBATION 03/29/18 11:56 Blood Culture - Final Blood - Peripheral Venous NO GROWTH AFTER 5 DAYS INCUBATION Physical exam. Constitutional: Yes: No Distress, Comfortable. Neck: Yes: Supple. no jvd Cardiovascular: Yes: Regular Rate and Rhythm Respiratory: Yes: Diminished Gastrointestinal: Yes: Soft/ non tender Edema: No Wound/Incision: Yes: Bilateral heel ulcers -- dressing +--detailed podiatry-- note reviewed Neurological: Yes: Alert Psychiatric: Yes: Alert Labs: Assessment/Plan clinically stable Continue present care abx bone scan-ve Arterial doppler-- Atherosclertic disease monitor bgm--under control dialysis per renal will follow daily oob - chair consult Dr. Noriega--Pending discussed with nursing staff also. Problem List - Problems (1) Diabetes Code(s): E11.9 - TYPE 2 DIABETES MELLITUS WITHOUT COMPLICATIONS (2) ESRD (end stage renal disease) on dialysis Code(s): N18.6 - END STAGE RENAL DISEASE; Z99.2 - DEPENDENCE ON RENAL DIALYSIS (3) Infected pressure ulcer Code(s): L89.90 - PRESSURE ULCER OF UNSPECIFIED SITE, UNSPECIFIED STAGE; L08.9 - LOCAL INFECTION OF THE SKIN AND SUBCUTANEOUS TISSUE, UNSP (4) Syncope Code(s): R55 - SYNCOPE AND COLLAPSE (5) Acute metabolic encephalopathy due to hypoglycemia Code(s): G93.41 - METABOLIC ENCEPHALOPATHY; E16.2 - HYPOGLYCEMIA, UNSPECIFIED (6) Anemia Code(s): D64.9 - ANEMIA, UNSPECIFIED (7) CAD (coronary artery disease) Code(s): I25.10 - ATHSCL HEART DISEASE OF [place] CORONARY ARTERY W/O ANG PCTRS (8) ESRD (end stage renal disease) on dialysis Code(s): N18.6 - END STAGE RENAL DISEASE; Z99.2 - DEPENDENCE ON RENAL DIALYSIS
[2018-04-04] MEDS ORDERED: PT OWN MED DRAWER 7, Y5N ONE (11:42)
[2018-04-04] MEDS: CLOPIDOGREL BISULFATE 75 MG TABLET (FP) PO SCH (12:37)
[2018-04-04] MEDS: ASPIRIN COATED 81 MG TABLET.EC PO SCH (12:38)
[2018-04-04] MEDS: FOLIC ACID 1 MG TABLET (FP) PO SCH (12:38)
[2018-04-04] MEDS: RANITIDINE HCL 150 MG TABLET (FP) PO SCH (12:38)
[2018-04-04] MEDS: CITALOPRAM HYDROBROMIDE 20 MG TABLET (FP) PO SCH (12:38)
[2018-04-04] MEDS: VITAMIN B COMPLEX W/C COMBO TABLET (FP) PO SCH (12:38)
[2018-04-04] MEDS: HEPARIN NA (PORCINE) 5,000 UNITS/ML 1ML VIAL SQ SCH ×2 (12:39→21:54)
[2018-04-04] MEDS: DIVALPROEX SODIUM 125 MG TABLET E.C. PO SCH ×2 (12:39→21:55)
[2018-04-04] MEDS: CARVEDILOL 12.5 MG TABLET (FP) PO SCH ×2 (12:39→21:53)
[2018-04-04] MEDS ORDERED: SODIUM CHLORIDE 250 ML IV PRN (17:06)
--- NOTE | 2018-04-04 17:06 | PN ---
Progress Note, Physician History of Present Illness: Pt seen and examined at bedside. He is awake and appears comfortable. - Current Medication List Current Medications: Active Medications Acetaminophen (Tylenol -) 650 mg PO Q6H PRN PRN Reason: PAIN LEVEL 1-5 Artificial Tears (Artificial Tears) 1 drop OU Q12H PRN PRN Reason: DRY EYES Aspirin (Ecotrin -) 81 mg PO DAILY [facility] Last Admin: 04/04/18 12:38 Dose: 81 mg Atorvastatin Calcium (Lipitor -) 40 mg PO HS [facility] Last Admin: 04/03/18 21:17 Dose: 40 mg Calcium Acetate (Phoslo -) 667 mg PO TIDCM [facility] Last Admin: 04/04/18 12:37 Dose: 667 mg Carvedilol (Coreg -) 12.5 mg PO BID [facility] Last Admin: 04/04/18 12:39 Dose: 12.5 mg Citalopram Hydrobromide (Celexa -) 20 mg PO DAILY [facility] Last Admin: 04/04/18 12:38 Dose: 20 mg Clopidogrel Bisulfate (Plavix -) 75 mg PO DAILY [facility] Last Admin: 04/04/18 12:37 Dose: 75 mg Collagenase (Santyl -) 1 applic TP DAILY [facility]; Protocol Last Admin: 04/03/18 09:59 Dose: 1 applic Divalproex Sodium (Depakote -) 125 mg PO BID [facility] Last Admin: 04/04/18 12:39 Dose: 125 mg Docusate Sodium (Colace -) 300 mg PO HS [facility] Last Admin: 04/03/18 23:47 Dose: 300 mg Folic Acid (Folic Acid -) 1 mg PO DAILY [facility] Last Admin: 04/04/18 12:38 Dose: 1 mg Gabapentin (Neurontin -) 100 mg PO TID [facility] Last Admin: 04/04/18 15:20 Dose: Not Given Haloperidol (Haldol -) 2 mg PO HS [facility] Last Admin: 04/03/18 21:16 Dose: 2 mg Heparin Sodium (Porcine) (Heparin -) 5,000 unit SQ BID [facility] Last Admin: 04/04/18 12:39 Dose: 5,000 unit Piperacillin Sod/Tazobactam (Sod 2.25 gm/ Dextrose) 50 mls @ 100 mls/hr IVPB Q8H-IV [facility]; Protocol Last Admin: 04/04/18 12:37 Dose: 100 mls/hr Insulin Aspart (Novolog Vial Sliding Scale -) 1 vial SQ [facility]; Protocol Last Admin: 04/04/18 13:58 Dose: Not Given Insulin Detemir (Levemir Vial) 6 units SQ [facility] Last Admin: 04/03/18 21:17 Dose: 6 units Mirtazapine (Remeron -) 15 mg PO [facility] Last Admin: 04/03/18 21:16 Dose: 15 mg Multi-Ingredient Ointment (Zinc Oxide 20% Topical Oint) 1 gm TP DAILY [facility] Last Admin: 04/03/18 09:59 Dose: 1 applic Multivitamins (Total B With C -) 1 each PO DAILY [facility] Last Admin: 04/04/18 12:38 Dose: 1 each Ranitidine HCl (Zantac -) 150 mg PO DAILY [facility] Last Admin: 04/04/18 12:38 Dose: 150 mg Tamsulosin HCl (Flomax -) 0.4 mg PO [facility] Last Admin: 04/03/18 21:16 Dose: 0.4 mg - Objective Vital Signs: Vital Signs Temperature 99.1 F 04/04/18 15:58 Pulse Rate 62 04/04/18 09:00 Respiratory Rate 18 04/04/18 09:00 Blood Pressure 135/53 04/04/18 09:00 O2 Sat by Pulse Oximetry (%) 96 04/04/18 09:00 Constitutional: Yes: Calm Eyes: Yes: Conjunctiva Clear HENT: Yes: Atraumatic Neck: Yes: Supple Cardiovascular: Yes: S1, S2 Respiratory: Yes: CTA Bilaterally Gastrointestinal: Yes: Normal Bowel Sounds, Soft Genitourinary: Yes: WNL Musculoskeletal: Yes: WNL Edema: No Neurological: Yes: Confusion Labs: CBC, BMP 04/03/18 15:00 04/03/18 15:00 INR, PTT INR 1.20 (0.83-1.09) H 03/28/18 22:22 Problem List - Problems (1) Diabetes Code(s): E11.9 - TYPE 2 DIABETES MELLITUS WITHOUT COMPLICATIONS (2) ESRD (end stage renal disease) on dialysis Code(s): N18.6 - END STAGE RENAL DISEASE; Z99.2 - DEPENDENCE ON RENAL DIALYSIS (3) Syncope Code(s): R55 - SYNCOPE AND COLLAPSE (4) Anemia Code(s): D64.9 - ANEMIA, UNSPECIFIED Assessment/Plan Current Medications Generic Name Dose Route Start Last Admin Trade Name Freq PRN Reason Stop Dose Admin Acetaminophen 650 mg 04/02/18 15:12 Tylenol - PO Q6H PRN PAIN LEVEL 1-5 Artificial Tears 1 drop 04/02/18 15:12 Artificial Tears OU Q12H PRN DRY EYES Aspirin 81 mg 04/03/18 10:00 04/04/18 12:38 Ecotrin - PO 81 mg DAILY [facility] Administration Atorvastatin Calcium 40 mg 04/02/18 22:00 04/03/18 21:17 Lipitor - PO 40 mg HS [facility] Administration Calcium Acetate 667 mg 04/02/18 17:30 04/04/18 12:37 Phoslo - PO 667 mg TIDCM [facility] Administration Carvedilol 12.5 mg 04/02/18 22:00 04/04/18 12:39 Coreg - PO 12.5 mg BID [facility] Administration Citalopram Hydrobromide 20 mg 04/03/18 10:00 04/04/18 12:38 Celexa - PO 20 mg DAILY [facility] Administration Clopidogrel Bisulfate 75 mg 04/03/18 10:00 04/04/18 12:37 Plavix - PO 75 mg DAILY [facility] Administration Collagenase 1 applic 04/03/18 10:00 04/03/18 09:59 Santyl - TP 1 applic DAILY [facility] Administration Protocol Divalproex Sodium 125 mg 04/02/18 22:00 04/04/18 12:39 Depakote - PO 125 mg BID [facility] Administration Docusate Sodium 300 mg 04/02/18 22:00 04/03/18 23:47 Colace - PO 300 mg HS [facility] Administration Folic Acid 1 mg 04/03/18 10:00 04/04/18 12:38 Folic Acid - PO 1 mg DAILY [facility] Administration Gabapentin 100 mg 04/02/18 22:00 04/04/18 15:20 Neurontin - PO Not Given TID [facility] Haloperidol 2 mg 04/02/18 22:00 04/03/18 21:16 Haldol - PO 2 mg HS [facility] Administration Heparin Sodium (Porcine) 5,000 unit 04/02/18 22:00 04/04/18 12:39 Heparin - SQ 5,000 unit BID [facility] Administration Piperacillin Sod/Tazobactam 50 mls @ 100 mls/hr 04/02/18 18:00 04/04/18 12:37 Sod 2.25 gm/ Dextrose IVPB 100 mls/hr Q8H-IV [facility] Administration Protocol Insulin Aspart 1 vial 04/02/18 16:30 04/04/18 13:58 Novolog Vial Sliding Scale - SQ Not Given ACHS [facility] Protocol Insulin Detemir 6 units 04/02/18 22:00 04/03/18 21:17 Levemir Vial SQ 6 units HS [facility] Administration Mirtazapine 15 mg 04/02/18 22:00 04/03/18 21:16 Remeron - PO 15 mg HS [facility] Administration Multi-Ingredient Ointment 1 gm 04/03/18 10:00 04/03/18 09:59 Zinc Oxide 20% Topical Oint TP 1 applic DAILY [facility] Administration Multivitamins 1 each 04/03/18 10:00 04/04/18 12:38 Total B With C - PO 1 each DAILY [facility] Administration Ranitidine HCl 150 mg 04/03/18 10:00 04/04/18 12:38 Zantac - PO 150 mg DAILY [facility] Administration Tamsulosin HCl 0.4 mg 04/02/18 22:00 04/03/18 21:16 Flomax - PO 0.4 mg HS [facility] Administration Impression 1. ESRD 2. anemia 3. HTN 4. Chol 5. DM 6. BPH 7. CAD 8. hypoglycemia 9. CHF 10. syncope 11. depression Plan - HD in am - podiatry input appreciated - cont wound care - bp is better off of norvasc, will monitor - can increase coreg if bp rises and pulse can tolerate it - cont epogen - will follow Dr Donovan
--- NOTE | 2018-04-04 17:16 | CONSULT ---
Consult Consult Specialty:: Vascular Surgery, second opinion - History of Present Illness History of Present Illness: 72 year old man with ESRD on HD and non-healing wounds of both foot. He is unable to give a history but has had vascular surgery in the past according to his chart. I spoke with his daughter - he recently had angioplasty procedure on his right leg at [facility]. He was then sent to SNF. She states that his small right foot wound became worse and new wounds started on the left foot. He is having therapy for ambulation. - Past Medical History Cardio/Vascular: Yes: CAD, CHF, HTN, ME, Hyperlipdemia Gastrointestinal: Yes: Constipation, GI Bleed Renal/: Yes: Renal Inusuff, Hemodialysis (M/W/F), Neurogenic Bladder Endocrine: Yes: Diabetes Mellitus - Past Surgical History Past Surgical History: Yes: AV Fistula/Graft, Bypass, CABG, Hernia Repair, Laminectomy, Stent - Alcohol/Substance Use Hx Alcohol Use: No History of Substance Use: reports: None - Smoking History Smoking history: Unknown if ever smoked Have you smoked in the past 12 months: No If you are a former smoker, when did you quit?: 30YRS - Social History Usual Living Arrangement: [facility] ADL: Support Services History of Recent Travel: No Home Medications - Allergies Allergies/Adverse Reactions: Allergies Allergy/AdvReac Type Severity Reaction Status Date / Time acetaminophen [From Percocet] Allergy Mild Hives Verified 03/28/18 20:49 oxycodone [From Percocet] Allergy Mild Hives Verified 03/28/18 20:49 - Home Medications Home Medications: Ambulatory Orders Carvedilol [Coreg -] 12.5 mg PO BID #60 tablet 12/18/17 Tamsulosin HCl [Flomax -] 0.4 mg PO HS #30 cap.er.24h 12/18/17 Amlodipine Besylate 10 mg PO DAILY 02/17/18 Aspirin [Adult Aspirin] 81 mg PO DAILY 02/17/18 Atorvastatin Ca [Lipitor] 40 mg PO HS 02/17/18 Collagenase Clostridium Hist. [Santyl -] 1 applic TP DAILY 02/17/18 Divalproex [Depakote -] 125 mg PO BID 02/17/18 Docusate Sodium 300 mg PO HS 02/17/18 Folic Acid 1 mg PO DAILY 02/17/18 Haloperidol 2 mg PO HS 02/17/18 Insulin Glargine,Hum.rec.anlog [Lantus Solostar] 10 unit SQ HS 02/17/18 Calcium Acetate [Phoslo -] 667 mg PO TIDCM 03/28/18 Citalopram Hydrobromide [Celexa -] 20 mg PO DAILY 03/28/18 Clopidogrel Bisulfate [Plavix -] 75 mg PO DAILY 03/28/18 Dextran 70/Hypromellose/Pf [Artificial Tears Drops] 1 each OU BID PRN 03/28/18 Famotidine 20 mg PO DAILY 03/28/18 Gabapentin [Neurontin -] 100 mg PO Q8H 03/28/18 Insulin Lispro [Humalog] unit SQ BID 03/28/18 LORazepam [Ativan] 0.5 mg PO ASDIR 03/28/18 Mirtazapine [Remeron -] 15 mg PO HS 03/28/18 Vitamin B Complex [Balance B-50] 1 each PO DAILY 03/28/18 Zinc Oxide 20% Topical Oint 454 gm NR ASDIR 03/28/18 Family Disease History - Family Disease History Family Disease History: CA: Mother, Sister Physical Exam Vital Signs: Vital Signs Temperature 99.1 F 04/04/18 15:58 Pulse Rate 62 04/04/18 09:00 Respiratory Rate 18 04/04/18 09:00 Blood Pressure 135/53 04/04/18 09:00 O2 Sat by Pulse Oximetry (%) 96 04/04/18 09:00 Labs: CBC, BMP 04/03/18 15:00 04/03/18 15:00 Problem List - Problems (1) PAD (peripheral artery disease) Assessment/Plan: There is physical evidence for significant distal arterial disease with old bypass procedures as well as recent angioplasties. Assessment with arterial Doppler and PVR and CTA is pending. Code(s): I73.9 - PERIPHERAL VASCULAR DISEASE, UNSPECIFIED
[2018-04-04] MEDS ORDERED: INSULIN (NOVOLOG) ASPART 100 UNITS/ML 10ML VIAL ONE (17:45)
[2018-04-04] MEDS: ZINC OXIDE 20% TOPICAL OINTMENT 454 GM JAR TP SCH (17:48)
[2018-04-04] MEDS: COLLAGENASE CLOSTRIDIUM HIST. 30 GRAMS TUBE TP SCH ×2 (17:48→19:10)
--- NOTE | 2018-04-04 18:40 | HOSP ---
Physical Examination Vital Signs: Vital Signs Temperature 98.2 F 04/04/18 17:25 Pulse Rate 65 04/04/18 17:25 Respiratory Rate 18 04/04/18 17:25 Blood Pressure 132/51 04/04/18 17:25 O2 Sat by Pulse Oximetry (%) 96 04/04/18 09:00 Labs: CBC, BMP 04/03/18 15:00 04/03/18 15:00 Hospitalist Encounter Assessment: Called to see patient for new onset upper body tremors that began last night. at the bedside and reports that patient left arm and hand are much weaker and at times he is unable to open his left hand. 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 She stats that he has intermittent upper body tremors at rest which she noticed on admission. head ct 03/29: no acute process. exam: GENERAL: Awake, alert, slow to respond but answers appropriately HEAD: Normal with no signs of trauma. EYES: Pupils equal, round and reactive to light EARS, NOSE, THROAT: oropharynx clear without exudates. Moist mucous membranes. NECK: Normal range of motion, supple without lymphadenopathy, JVD, or masses. ABDOMEN: Soft, nontender, not distended, normoactive bowel sounds, no guarding, no rebound, no masses. No hepatomegaly or splenomegaly. UPPER EXTREMITIES: left arm with upper av fistula, bilteral arms equal strength , no weakness noted on either arm, no tremors, or shaking SKIN: Warm, dry, normal turgor, no rashes or lesions noted, normal capillary refill. Plan: Will order repeat head CT No neuro deficits noted on exam, left arm with +bruit and thrill, patient was able to open left hand with good ROM, pupils equal and reactive, speech at baseline. no confusion noted. denies any numbness of left arm. Consider neurology consult, to be decided per primary MD Monitor neuro status and report any changes. Physical therapy
[2018-04-04] MEDS: DOCUSATE SODIUM 100 MG CAPSULE (FP) PO SCH (21:52)
[2018-04-04] MEDS: ATORVASTATIN CA 40 MG TABLET (FP) PO SCH (21:53)
[2018-04-04] MEDS: INSULIN (LEVEMIR) 100 UNITS/ML UNITS SQ SCH (21:54)
[2018-04-04] MEDS: MIRTAZAPINE 15 MG TABLET (FP) PO SCH (21:55)
[2018-04-04] MEDS: HALOPERIDOL 1 MG TABLET (FP) PO SCH (21:55)
[2018-04-04] MEDS: TAMSULOSIN HCL 0.4 MG CAP.ER.24H (FP) PO SCH (21:57)
[2018-04-05] MEDS ORDERED: PIPERACILLIN/TAZOBACTAM 2.25 GM VIAL IVPB ONE ×3 (02:20→18:28)
[2018-04-05] MEDS ORDERED: DEXTROSE 5%-WATER 100 ML IVPB ONE ×3 (02:20→18:28)
[2018-04-05] MEDS: ACETAMINOPHEN 325 MG TABLET (FP) PO PRN ×2 (02:26→23:15)
[2018-04-05] MEDS: PIPERACILLIN/TAZOB 2.25 GM 2.25 GM in DEXTROSE 5%-WATER 100 ML IVPB SCH ×3 (02:26→18:32)
[2018-04-05] MEDS: INSULIN SLIDING SCALE (NOVOLOG) 1 VIAL SQ SCH ×4 (06:43→23:12)
[2018-04-05] MEDS: GABAPENTIN 100 MG CAPSULE (FP) PO SCH ×3 (06:44→23:08)
[2018-04-05] MEDS ORDERED: INSULIN (NOVOLOG) ASPART 100 UNITS/ML 10ML VIAL ONE (06:51)
[2018-04-05] MEDS: CALCIUM ACETATE 667 MG CAPSULE (FP) PO SCH ×3 (09:04→17:29)
[2018-04-05] MEDS ORDERED: PT OWN MED DRAWER 7, Y5N ONE ×2 (10:43→21:27)
[2018-04-05] MEDS: VITAMIN B COMPLEX W/C COMBO TABLET (FP) PO SCH (11:03)
[2018-04-05] MEDS: CITALOPRAM HYDROBROMIDE 20 MG TABLET (FP) PO SCH (11:04)
[2018-04-05] MEDS: ASPIRIN COATED 81 MG TABLET.EC PO SCH (11:04)
[2018-04-05] MEDS: RANITIDINE HCL 150 MG TABLET (FP) PO SCH (11:04)
[2018-04-05] MEDS: DIVALPROEX SODIUM 125 MG TABLET E.C. PO SCH ×2 (11:04→23:11)
[2018-04-05] MEDS: HEPARIN NA (PORCINE) 5,000 UNITS/ML 1ML VIAL SQ SCH ×2 (11:05→23:08)
[2018-04-05] MEDS: FOLIC ACID 1 MG TABLET (FP) PO SCH (11:05)
[2018-04-05] MEDS: CLOPIDOGREL BISULFATE 75 MG TABLET (FP) PO SCH (11:05)
[2018-04-05] MEDS: CARVEDILOL 12.5 MG TABLET (FP) PO SCH ×2 (11:05→23:08)
--- NOTE | 2018-04-05 12:25 | PN ---
Progress Note (short form) - Note Progress Note: pt seen/ examined. comfortable. events noted Hospitalist--- note reviewed. CT head negative Patient's still concerned about left arm weakness exam essentially okay--Except mild swelling Will consult neurology--- per patient's 's request Vital Signs Temp 98 F 04/05/18 09:00 Pulse 53 L 04/05/18 09:00 Resp 18 04/05/18 09:00 BP 108/60 04/05/18 09:00 Pulse Ox 98 04/05/18 09:00 Intake & Output 04/04/18 04/05/18 04/05/18 23:59 11:59 23:59 Intake Total 100 50 Balance 100 50 Weight 158 lb Intake: Oral 100 50 Other: Voiding Method Incontinent Incontinent Bowel Movement Yes Weight Measurement Method Patient Lift Scale Active Medications Acetaminophen (Tylenol -) 650 mg PO Q6H PRN PRN Reason: PAIN LEVEL 1-5 Last Admin: 04/05/18 02:26 Dose: 650 mg Artificial Tears (Artificial Tears) 1 drop OU Q12H PRN PRN Reason: DRY EYES Aspirin (Ecotrin -) 81 mg PO DAILY [facility] Last Admin: 04/05/18 11:04 Dose: 81 mg Atorvastatin Calcium (Lipitor -) 40 mg PO [facility] Last Admin: 04/04/18 21:53 Dose: 40 mg Calcium Acetate (Phoslo -) 667 mg PO TIDCM [facility] Last Admin: 04/05/18 09:04 Dose: Not Given Carvedilol (Coreg -) 12.5 mg PO BID [facility] Last Admin: 04/05/18 11:05 Dose: Not Given Citalopram Hydrobromide (Celexa -) 20 mg PO DAILY [facility] Last Admin: 04/05/18 11:04 Dose: 20 mg Clopidogrel Bisulfate (Plavix -) 75 mg PO DAILY [facility] Last Admin: 04/05/18 11:05 Dose: 75 mg Collagenase (Santyl -) 1 applic TP DAILY [facility]; Protocol Last Admin: 04/04/18 19:10 Dose: Not Given Divalproex Sodium (Depakote -) 125 mg PO BID [facility] Last Admin: 04/05/18 11:04 Dose: 125 mg Docusate Sodium (Colace -) 300 mg PO [facility] Last Admin: 04/04/18 21:52 Dose: 300 mg Epoetin Jose Francisco (Epogen -) 10,000 unit IVPUSH ONCE ONE Stop: 04/05/18 17:07 Folic Acid (Folic Acid -) 1 mg PO DAILY [facility] Last Admin: 04/05/18 11:05 Dose: 1 mg Gabapentin (Neurontin -) 100 mg PO TID [facility] Last Admin: 04/05/18 06:44 Dose: 100 mg Haloperidol (Haldol -) 2 mg PO HS [facility] Last Admin: 04/04/18 21:55 Dose: 2 mg Heparin Sodium (Porcine) (Heparin -) 5,000 unit SQ BID [facility] Last Admin: 04/05/18 11:05 Dose: 5,000 unit Sodium Chloride (Normal Saline -) 250 mls @ 3,000 mls/hr IV PRN PRN PRN Reason: Hypotension during Dialysis Stop: 04/05/18 17:06 Piperacillin Sod/Tazobactam (Sod 2.25 gm/ Dextrose) 100 mls @ 100 mls/hr IVPB Q8H-IV [facility]; Protocol Last Admin: 04/05/18 11:03 Dose: 100 mls/hr Insulin Aspart (Novolog Vial Sliding Scale -) 1 vial SQ [facility]; Protocol Last Admin: 04/05/18 06:43 Dose: 8 units Insulin Detemir (Levemir Vial) 10 units SQ [facility] Mirtazapine (Remeron -) 15 mg PO HS [facility] Last Admin: 04/04/18 21:55 Dose: 15 mg Multi-Ingredient Ointment (Zinc Oxide 20% Topical Oint) 1 gm TP DAILY [facility] Last Admin: 04/04/18 17:48 Dose: 1 applic Multivitamins (Total B With C -) 1 each PO DAILY [facility] Last Admin: 04/05/18 11:03 Dose: 1 each Ranitidine HCl (Zantac -) 150 mg PO DAILY [facility] Last Admin: 04/05/18 11:04 Dose: 150 mg Tamsulosin HCl (Flomax -) 0.4 mg PO [facility] Last Admin: 04/04/18 21:57 Dose: 0.4 mg CBC, BMP 04/03/18 15:00 04/03/18 15:00 Microbiology 04/02/18 19:00 Blood Culture - Preliminary Blood - Peripheral Venous NO GROWTH OBTAINED AFTER 48 HOURS, INCUBATION TO CONTINUE FOR 3 DAYS. 04/02/18 19:00 Blood Culture - Preliminary Blood - Peripheral Venous NO GROWTH OBTAINED AFTER 48 HOURS, INCUBATION TO CONTINUE FOR 3 DAYS. Physical exam. Constitutional: Yes: No Distress, Comfortable. Neck: Yes: Supple. no jvd Cardiovascular: Yes: Regular Rate and Rhythm Respiratory: Yes: Diminished Gastrointestinal: Yes: Soft/ non tender Edema: No Wound/Incision: Yes: Bilateral heel ulcers -- dressing +--detailed podiatry-- note reviewed Neurological: Yes: Alert Psychiatric: Yes: Alert Labs: Assessment/Plan clinically stable Continue present care abx bone scan-ve Arterial doppler-- Atherosclertic disease monitor bgm-borderline elevated--- increase Levemir dialysis per renal will follow daily oob - chair consult Dr. Noriega-noted and appreciated workup in Progress. consults neurology Will follow Problem List - Problems (1) Diabetes Code(s): E11.9 - TYPE 2 DIABETES MELLITUS WITHOUT COMPLICATIONS (2) ESRD (end stage renal disease) on dialysis Code(s): N18.6 - END STAGE RENAL DISEASE; Z99.2 - DEPENDENCE ON RENAL DIALYSIS (3) Infected pressure ulcer Code(s): L89.90 - PRESSURE ULCER OF UNSPECIFIED SITE, UNSPECIFIED STAGE; L08.9 - LOCAL INFECTION OF THE SKIN AND SUBCUTANEOUS TISSUE, UNSP (4) Syncope Code(s): R55 - SYNCOPE AND COLLAPSE (5) Acute metabolic encephalopathy due to hypoglycemia Code(s): G93.41 - METABOLIC ENCEPHALOPATHY; E16.2 - HYPOGLYCEMIA, UNSPECIFIED (6) Anemia Code(s): D64.9 - ANEMIA, UNSPECIFIED (7) CAD (coronary artery disease) Code(s): I25.10 - ATHSCL HEART DISEASE OF [place] CORONARY ARTERY W/O ANG PCTRS (8) ESRD (end stage renal disease) on dialysis Code(s): N18.6 - END STAGE RENAL DISEASE; Z99.2 - DEPENDENCE ON RENAL DIALYSIS
--- NOTE | 2018-04-05 14:48 | PN ---
Progress Note, Physician History of Present Illness: Pt seen and examined at bedside. He denies shortness of breath. - Current Medication List Current Medications: Active Medications Acetaminophen (Tylenol -) 650 mg PO Q6H PRN PRN Reason: PAIN LEVEL 1-5 Last Admin: 04/05/18 02:26 Dose: 650 mg Artificial Tears (Artificial Tears) 1 drop OU Q12H PRN PRN Reason: DRY EYES Aspirin (Ecotrin -) 81 mg PO DAILY [facility] Last Admin: 04/05/18 11:04 Dose: 81 mg Atorvastatin Calcium (Lipitor -) 40 mg PO HS [facility] Last Admin: 04/04/18 21:53 Dose: 40 mg Calcium Acetate (Phoslo -) 667 mg PO TIDCM [facility] Last Admin: 04/05/18 13:16 Dose: Not Given Carvedilol (Coreg -) 12.5 mg PO BID [facility] Last Admin: 04/05/18 11:05 Dose: Not Given Citalopram Hydrobromide (Celexa -) 20 mg PO DAILY [facility] Last Admin: 04/05/18 11:04 Dose: 20 mg Clopidogrel Bisulfate (Plavix -) 75 mg PO DAILY [facility] Last Admin: 04/05/18 11:05 Dose: 75 mg Collagenase (Santyl -) 1 applic TP DAILY [facility]; Protocol Last Admin: 04/04/18 19:10 Dose: Not Given Divalproex Sodium (Depakote -) 125 mg PO BID [facility] Last Admin: 04/05/18 11:04 Dose: 125 mg Docusate Sodium (Colace -) 300 mg PO [facility] Last Admin: 04/04/18 21:52 Dose: 300 mg Epoetin Jose Francisco (Epogen -) 10,000 unit IVPUSH ONCE ONE Stop: 04/05/18 17:07 Folic Acid (Folic Acid -) 1 mg PO DAILY [facility] Last Admin: 04/05/18 11:05 Dose: 1 mg Gabapentin (Neurontin -) 100 mg PO TID [facility] Last Admin: 04/05/18 06:44 Dose: 100 mg Haloperidol (Haldol -) 2 mg PO HS [facility] Last Admin: 04/04/18 21:55 Dose: 2 mg Heparin Sodium (Porcine) (Heparin -) 5,000 unit SQ BID [facility] Last Admin: 04/05/18 11:05 Dose: 5,000 unit Sodium Chloride (Normal Saline -) 250 mls @ 3,000 mls/hr IV PRN PRN PRN Reason: Hypotension during Dialysis Stop: 04/05/18 17:06 Piperacillin Sod/Tazobactam (Sod 2.25 gm/ Dextrose) 100 mls @ 100 mls/hr IVPB Q8H-IV [facility]; Protocol Last Admin: 04/05/18 11:03 Dose: 100 mls/hr Insulin Aspart (Novolog Vial Sliding Scale -) [address] [facility]; Protocol Last Admin: 04/05/18 13:16 Dose: 4 units Insulin Detemir (Levemir Vial) 10 units SQ HS [facility] Mirtazapine (Remeron -) 15 mg PO HS [facility] Last Admin: 04/04/18 21:55 Dose: 15 mg Multi-Ingredient Ointment (Zinc Oxide 20% Topical Oint) 1 gm TP DAILY [facility] Last Admin: 04/04/18 17:48 Dose: 1 applic Multivitamins (Total B With C -) 1 each PO DAILY [facility] Last Admin: 04/05/18 11:03 Dose: 1 each Ranitidine HCl (Zantac -) 150 mg PO DAILY [facility] Last Admin: 04/05/18 11:04 Dose: 150 mg Tamsulosin HCl (Flomax -) 0.4 mg PO HS [facility] Last Admin: 04/04/18 21:57 Dose: 0.4 mg - Objective Vital Signs: Vital Signs Temperature 98 F 04/05/18 09:00 Pulse Rate 53 L 04/05/18 09:00 Respiratory Rate 18 04/05/18 09:00 Blood Pressure 108/60 04/05/18 09:00 O2 Sat by Pulse Oximetry (%) 98 04/05/18 09:00 Constitutional: Yes: Calm Eyes: Yes: Conjunctiva Clear HENT: Yes: Atraumatic Neck: Yes: Supple Cardiovascular: Yes: S1, S2 Respiratory: Yes: CTA Bilaterally Gastrointestinal: Yes: Soft Musculoskeletal: Yes: WNL Edema: No Wound/Incision: Yes: Dressing Dry and Intact Neurological: Yes: Confusion Labs: CBC, BMP 04/03/18 15:00 04/03/18 15:00 INR, PTT INR 1.20 (0.83-1.09) H 03/28/18 22:22 Problem List - Problems (1) Diabetes Code(s): E11.9 - TYPE 2 DIABETES MELLITUS WITHOUT COMPLICATIONS (2) ESRD (end stage renal disease) on dialysis Code(s): N18.6 - END STAGE RENAL DISEASE; Z99.2 - DEPENDENCE ON RENAL DIALYSIS (3) Syncope Code(s): R55 - SYNCOPE AND COLLAPSE (4) Anemia Code(s): D64.9 - ANEMIA, UNSPECIFIED Assessment/Plan Current Medications Generic Name Dose Route Start Last Admin Trade Name Freq PRN Reason Stop Dose Admin Acetaminophen 650 mg 04/02/18 15:12 04/05/18 02:26 Tylenol - PO 650 mg Q6H PRN Administration PAIN LEVEL 1-5 Artificial Tears 1 drop 04/02/18 15:12 Artificial Tears OU Q12H PRN DRY EYES Aspirin 81 mg 04/03/18 10:00 04/05/18 11:04 Ecotrin - PO 81 mg DAILY [facility] Administration Atorvastatin Calcium 40 mg 04/02/18 22:00 04/04/18 21:53 Lipitor - PO 40 mg HS [facility] Administration Calcium Acetate 667 mg 04/02/18 17:30 04/05/18 13:16 Phoslo - PO Not Given TIDCM [facility] Carvedilol 12.5 mg 04/02/18 22:00 04/05/18 11:05 Coreg - PO Not Given BID [facility] Citalopram Hydrobromide 20 mg 04/03/18 10:00 04/05/18 11:04 Celexa - PO 20 mg DAILY [facility] Administration Clopidogrel Bisulfate 75 mg 04/03/18 10:00 04/05/18 11:05 Plavix - PO 75 mg DAILY [facility] Administration Collagenase 1 applic 04/03/18 10:00 04/04/18 19:10 Santyl - TP Not Given DAILY [facility] Protocol Divalproex Sodium 125 mg 04/02/18 22:00 04/05/18 11:04 Depakote - PO 125 mg BID [facility] Administration Docusate Sodium 300 mg 04/02/18 22:00 04/04/18 21:52 Colace - PO 300 mg HS [facility] Administration Epoetin Jose Francisco 10,000 unit 04/05/18 17:06 Epogen - IVPUSH 04/05/18 17:07 ONCE ONE Folic Acid 1 mg 04/03/18 10:00 04/05/18 11:05 Folic Acid - PO 1 mg DAILY [facility] Administration Gabapentin 100 mg 04/02/18 22:00 04/05/18 06:44 Neurontin - PO 100 mg TID [facility] Administration Haloperidol 2 mg 04/02/18 22:00 04/04/18 21:55 Haldol - PO 2 mg HS [facility] Administration Heparin Sodium (Porcine) 5,000 unit 04/02/18 22:00 04/05/18 11:05 Heparin - SQ 5,000 unit BID [facility] Administration Sodium Chloride 250 mls @ 3,000 mls/hr 04/04/18 17:06 Normal Saline - IV 04/05/18 17:06 PRN PRN Hypotension during Dialysis Piperacillin Sod/Tazobactam 100 mls @ 100 mls/hr 04/05/18 02:00 04/05/18 11: 03 Sod 2.25 gm/ Dextrose IVPB 100 mls/hr Q8H-IV [facility] Administration Protocol Insulin Aspart 1 vial 04/02/18 16:30 04/05/18 13:16 Novolog Vial Sliding Scale - SQ 4 units ACHS [facility] Administration Protocol Insulin Detemir 10 units 04/05/18 11:36 Levemir Vial SQ HS [facility] Mirtazapine 15 mg 04/02/18 22:00 04/04/18 21:55 Remeron - PO 15 mg HS [facility] Administration Multi-Ingredient Ointment 1 gm 04/03/18 10:00 04/04/18 17:48 Zinc Oxide 20% Topical Oint TP 1 applic DAILY [facility] Administration Multivitamins 1 each 04/03/18 10:00 04/05/18 11:03 Total B With C - PO 1 each DAILY [facility] Administration Ranitidine HCl 150 mg 04/03/18 10:00 04/05/18 11:04 Zantac - PO 150 mg DAILY [facility] Administration Tamsulosin HCl 0.4 mg 04/02/18 22:00 04/04/18 21:57 Flomax - PO 0.4 mg HS [facility] Administration Impression 1. ESRD 2. anemia 3. HTN 4. Chol 5. DM 6. BPH 7. CAD 8. hypoglycemia 9. CHF 10. syncope 11. depression Plan - HD today - cont wound care - monitor bp - would not restart norvasc - cont epogen - will follow Dr Donovan
[2018-04-05] MEDS ORDERED: EPOETIN ALFA 10,000 UNIT/1 ML VIAL IVPUSH ONE (15:15)
[2018-04-05 15:54] LABS: HEMOGLOBIN 8.7 GM/dL (11.7-16.9); MCH 32.9 pg (25.7-33.7); MCHC 34.6 g/dl (32.0-35.9); MEAN CELL VOLUME 95.1 fl (80-96); MEAN PLT VOLUME 7.1 fl (7.5-11.1); PLATELET COUNT 320 K/MM3 (134-434); RBC 2.63 M/mm3 (4.00-5.60); RDW 15.6 % (11.9-15.9); WHITE BLOOD COUNT 11.7 K/mm3 (4.0-10.0)
[2018-04-05 16:08] LABS: ANION GAP 12 MMOL/L (8-16); BLOOD UREA NITROGEN 71 mg/dL (7-18); CALCIUM 7.4 mg/dL (8.5-10.1); CHLORIDE 97 mmol/L (98-107); CO2 28 mmol/L (21-32); CREATININE 6.4 mg/dL (0.7-1.3); GLUCOSE,RANDOM 235 mg/dL (74-106); SODIUM 137 mmol/L (136-145)
[2018-04-05] MEDS: ZINC OXIDE 20% TOPICAL OINTMENT 454 GM JAR TP SCH (17:23)
[2018-04-05] MEDS: COLLAGENASE CLOSTRIDIUM HIST. 30 GRAMS TUBE TP SCH (17:23)
--- NOTE | 2018-04-05 17:58 | CON.NEURO ---
Consult - Past Medical History Cardio/Vascular: Yes: CAD, CHF, HTN, [place], Hyperlipdemia Gastrointestinal: Yes: Constipation, GI Bleed Renal/: Yes: Renal Inusuff, Hemodialysis (M/W/F), Neurogenic Bladder Endocrine: Yes: Diabetes Mellitus - Past Surgical History Past Surgical History: Yes: AV Fistula/Graft, Bypass, CABG, Hernia Repair, Laminectomy, Stent - Alcohol/Substance Use Hx Alcohol Use: No History of Substance Use: reports: None - Smoking History Smoking history: Unknown if ever smoked Have you smoked in the past 12 months: No If you are a former smoker, when did you quit?: 30YRS - Social History Usual Living Arrangement: Prison ADL: Support Services History of Recent Travel: No Home Medications - Allergies Allergies/Adverse Reactions: Allergies Allergy/AdvReac Type Severity Reaction Status Date / Time acetaminophen [From Percocet] Allergy Mild Hives Verified 03/28/18 20:49 oxycodone [From Percocet] Allergy Mild Hives Verified 03/28/18 20:49 - Home Medications Home Medications: Ambulatory Orders Carvedilol [Coreg -] 12.5 mg PO BID #60 tablet 12/18/17 Tamsulosin HCl [Flomax -] 0.4 mg PO HS #30 cap.er.24h 12/18/17 Amlodipine Besylate 10 mg PO DAILY 02/17/18 Aspirin [Adult Aspirin] 81 mg PO DAILY 02/17/18 Atorvastatin Ca [Lipitor] 40 mg PO HS 02/17/18 Collagenase Clostridium Hist. [Santyl -] 1 applic TP DAILY 02/17/18 Divalproex [Depakote -] 125 mg PO BID 02/17/18 Docusate Sodium 300 mg PO HS 02/17/18 Folic Acid 1 mg PO DAILY 02/17/18 Haloperidol 2 mg PO HS 02/17/18 Insulin Glargine,Hum.rec.anlog [Lantus Solostar] 10 unit SQ HS 02/17/18 Calcium Acetate [Phoslo -] 667 mg PO TIDCM 03/28/18 Citalopram Hydrobromide [Celexa -] 20 mg PO DAILY 03/28/18 Clopidogrel Bisulfate [Plavix -] 75 mg PO DAILY 03/28/18 Dextran 70/Hypromellose/Pf [Artificial Tears Drops] 1 each OU BID PRN 03/28/18 Famotidine 20 mg PO DAILY 03/28/18 Gabapentin [Neurontin -] 100 mg PO Q8H 03/28/18 Insulin Lispro [Humalog] unit SQ BID 03/28/18 LORazepam [Ativan] 0.5 mg PO ASDIR 03/28/18 Mirtazapine [Remeron -] 15 mg PO HS 03/28/18 Vitamin B Complex [Balance B-50] 1 each PO DAILY 03/28/18 Zinc Oxide 20% Topical Oint 454 gm NR ASDIR 03/28/18 Family Disease History - Family Disease History Family Disease History: [place]: Mother, Sister Physical Exam-Neuro Vital Signs: Vital Signs Temperature 98 F 04/05/18 09:00 Pulse Rate 61 04/05/18 16:56 Respiratory Rate 18 04/05/18 16:56 Blood Pressure 141/53 04/05/18 16:56 O2 Sat by Pulse Oximetry (%) 98 04/05/18 09:00 Labs: CBC, BMP 04/05/18 15:00 04/05/18 15:00 INR, PTT INR 1.20 (0.83-1.09) H 03/28/18 22:22 Assessment/Plan cc Possible stroke HPI 72 year old male with multiple comorbidites including DM,HTN,CHF,ESRD ON HD . He came from [place] for fall. He has episode of confusion. His brought to attention that his left sided is weaker. He is able to eat and there has not been any visual changes, aphasia or headhace or seizure like activity. There is no fever. He did have ct head today and it was unremarkable compare to previosu one PAST MEDICAL HISTORY: HTN, CAD s/p stents, ESRD on HD, IDDM, CAD, PAD, Hypercholesterolermia, Urinary Retention, Chronic Back Pain(s/p laminectomy, fusions), Constipation, Anemia hx of GI bleed, CHF (LV dysfunction) PAST SURGICAL HISTORY: CABG >25yrs ago left arm fistula 09/2017 Social History: Smoking: never Alcohol: denies Drugs: denies Allergies acetaminophen [From Percocet] Allergy (Mild, Verified 03/28/18 20:49) Hives oxycodone [From Percocet] Allergy (Mild, Verified 03/28/18 20:49) Hives HOME MEDICATIONS: Home Medications Medication Instructions Recorded Carvedilol [Coreg -] 12.5 mg PO BID #60 tablet 12/18/17 Tamsulosin HCl [Flomax -] 0.4 mg PO HS #30 cap.er.24h 12/18/17 Amlodipine Besylate 10 mg PO DAILY 02/17/18 Aspirin [Adult Aspirin] 81 mg PO DAILY 02/17/18 Atorvastatin Ca [Lipitor] 40 mg PO HS 02/17/18 Collagenase Clostridium Hist. 1 applic TP DAILY 02/17/18 [Santyl -] Divalproex [Depakote -] 125 mg PO BID 02/17/18 Docusate Sodium 300 mg PO HS 02/17/18 Folic Acid 1 mg PO DAILY 02/17/18 Haloperidol 2 mg PO HS 02/17/18 Insulin Glargine,Hum.rec.anlog 10 unit SQ HS 02/17/18 [Lantus Solostar] Calcium Acetate [Phoslo -] 667 mg PO TIDCM 03/28/18 Citalopram Hydrobromide [Celexa -] 20 mg PO DAILY 03/28/18 Clopidogrel Bisulfate [Plavix -] 75 mg PO DAILY 03/28/18 Dextran 70/Hypromellose/Pf 1 each OU BID PRN 03/28/18 [Artificial Tears Drops] Famotidine 20 mg PO DAILY 03/28/18 Gabapentin [Neurontin -] 100 mg PO Q8H 03/28/18 Insulin Lispro [Humalog] unit SQ BID 03/28/18 LORazepam [Ativan] 0.5 mg PO ASDIR 03/28/18 Mirtazapine [Remeron -] 15 mg PO HS 03/28/18 Vitamin B Complex [Balance B-50] 1 each PO DAILY 03/28/18 Zinc Oxide 20% Topical Oint 454 gm NR ASDIR 03/28/18 FH,ROS reviewed in chart Neurological Examination Alert orientedx 2, speech is dysarthric ( not clear if new ) no face asymmetry, Vf normal by confrotation, pupils reactive left upper and lower extremity grade 4 plus sensation is normal ct unchanged Assessment- Possible right sided acute stroke, risk factor include HTN,DM, CHF, He is already on plavix and statin Plan- mri of brain to confirm stroke, if confirm would do carotid ultrasound and further work up It is not clear if this is new symptoms or he has old left sided weakness. Patient is able to swallow I would order mri of brain and would follow up with primary Thanking you so much Jose Angel Blankenship MD
--- NOTE | 2018-04-05 19:35 | CONSULT ---
Consult Consult Specialty:: Podiatry Reason for Consultation:: Necrotic escharotic decubiti ulceration bilateral plantar posterior heel, and nail care. - History of Present Illness Chief Complaint: 71 years old male seen for treatment of necrotic ulceration of bilateral heel. Developed [facility] in [facility]. Also seen for treatment of thickened elongated toenails. Patient is well known to me. 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 states condition recently developed while in penitentiary. Admitted one week ago. - Past Medical History [employer] MAIL [employer]: Yes: Peripheral Neuropathy Cardio/Vascular: Yes: CAD, CHF, HTN, [place], Hyperlipdemia Gastrointestinal: Yes: Constipation, GI Bleed Renal/: Yes: Renal Inusuff, Hemodialysis (M/W/F), Neurogenic Bladder Endocrine: Yes: Diabetes Mellitus - Past Surgical History Past Surgical History: Yes: AV Fistula/Graft, Bypass, CABG, Hernia Repair, Laminectomy, Stent - Alcohol/Substance Use Hx Alcohol Use: No History of Substance Use: reports: None - Smoking History Smoking history: Unknown if ever smoked Have you smoked in the past 12 months: No If you are a former smoker, when did you quit?: 30YRS - Social History Usual Living Arrangement: [facility] ADL: Support Services History of Recent Travel: No Home Medications - Allergies Allergies/Adverse Reactions: Allergies Allergy/AdvReac Type Severity Reaction Status Date / Time acetaminophen [From Percocet] Allergy Mild Hives Verified 03/28/18 20:49 oxycodone [From Percocet] Allergy Mild Hives Verified 03/28/18 20:49 - Home Medications Home Medications: Ambulatory Orders Carvedilol [Coreg -] 12.5 mg PO BID #60 tablet 12/18/17 Tamsulosin HCl [Flomax -] 0.4 mg PO HS #30 cap.er.24h 12/18/17 Amlodipine Besylate 10 mg PO DAILY 02/17/18 Aspirin [Adult Aspirin] 81 mg PO DAILY 02/17/18 Atorvastatin Ca [Lipitor] 40 mg PO HS 02/17/18 Collagenase Clostridium Hist. [Santyl -] 1 applic TP DAILY 02/17/18 Divalproex [Depakote -] 125 mg PO BID 02/17/18 Docusate Sodium 300 mg PO HS 02/17/18 Folic Acid 1 mg PO DAILY 02/17/18 Haloperidol 2 mg PO HS 02/17/18 Insulin Glargine,Hum.rec.anlog [Lantus Solostar] 10 unit SQ HS 02/17/18 Calcium Acetate [Phoslo -] 667 mg PO TIDCM 03/28/18 Citalopram Hydrobromide [Celexa -] 20 mg PO DAILY 03/28/18 Clopidogrel Bisulfate [Plavix -] 75 mg PO DAILY 03/28/18 Dextran 70/Hypromellose/Pf [Artificial Tears Drops] 1 each OU BID PRN 03/28/18 Famotidine 20 mg PO DAILY 03/28/18 Gabapentin [Neurontin -] 100 mg PO Q8H 03/28/18 Insulin Lispro [Humalog] unit SQ BID 03/28/18 LORazepam [Ativan] 0.5 mg PO ASDIR 03/28/18 Mirtazapine [Remeron -] 15 mg PO HS 03/28/18 Vitamin B Complex [Balance B-50] 1 each PO DAILY 03/28/18 Zinc Oxide 20% Topical Oint 454 gm NR ASDIR 03/28/18 Family Disease History - Family Disease History Family Disease History: [place]: Mother, Sister Physical Exam Vital Signs: Vital Signs Temperature 97.5 F L 04/05/18 18:57 Pulse Rate 63 04/05/18 18:57 Respiratory Rate 18 04/05/18 18:57 Blood Pressure 134/51 04/05/18 18:57 O2 Sat by Pulse Oximetry (%) 98 04/05/18 09:00 Labs: CBC, BMP 04/05/18 15:00 04/05/18 15:00 Assessment/Plan Diabetes. PAD. Neuropathy. Decubiti necrotic ulceration bilateral heel. No osteomyelitis. Onychomycosis. - Objective Vital Signs: Vital Signs Temperature 97.5 F L 04/05/18 18:57 Pulse Rate 63 04/05/18 18:57 Respiratory Rate 18 04/05/18 18:57 Blood Pressure 134/51 04/05/18 18:57 O2 Sat by Pulse Oximetry (%) 98 04/05/18 09:00 Extremities: Yes: Cool, Delayed Capillary Refill Edema: No Peripheral Pulses WNL: No Peripheral Pulses: Left Doralis Pedis: 0, Right Dorsalis Pedis: 0 Integumentary: Yes: Pressure Ulcer (Necrotic ulceration posterior plantar right heel 7 cm wide x 5 cm. Fluctuance noted with pain on palpation. No surrounding edema nor erythema. No calor. Malodor. No drainage noted on dressing. Necrotic ulceration plantar posterior left heel 2 cm in diameter with no pain on palpation. No odor, drainage, edema nor erythema. Dry necrotic patch.), Onychomycosis (bilateral toenails.) ...Motor Strength: WNL Labs: CBC, BMP 04/05/18 15:00 04/05/18 15:00 - ....Imaging X-ray: Report Reviewed MRI: Report Reviewed Assessment Plan - Plan Plan: Consent for procedures. Aseptic debridement of onychomycosis bilaterally. Aseptic debridement of eschar necrotic left heel to subucutaneous tissue. Santyl collagenase dressing applied left heel. Aseptic debridement of ulceration right heel to subcutaneous tissue skin full thickness and piercing in several locations. No drainage elicited. Dressing applied. Will start wound vacuum right heel. Continue local wound care left. Continue IVAB. Appreciate vascular consult. Will follow.
[2018-04-05] MEDS: ATORVASTATIN CA 40 MG TABLET (FP) PO SCH (23:08)
[2018-04-05] MEDS: TAMSULOSIN HCL 0.4 MG CAP.ER.24H (FP) PO SCH (23:08)
[2018-04-05] MEDS: HALOPERIDOL 1 MG TABLET (FP) PO SCH (23:11)
[2018-04-05] MEDS: INSULIN (LEVEMIR) 100 UNITS/ML UNITS SQ SCH (23:12)
[2018-04-05] MEDS: DOCUSATE SODIUM 100 MG CAPSULE (FP) PO SCH (23:17)
[2018-04-05] MEDS: MIRTAZAPINE 15 MG TABLET (FP) PO SCH (23:18)
[2018-04-06] MEDS ORDERED: PIPERACILLIN/TAZOBACTAM 2.25 GM VIAL IVPB ONE ×3 (02:38→17:20)
[2018-04-06] MEDS ORDERED: DEXTROSE 5%-WATER 100 ML IVPB ONE ×3 (02:38→17:20)
[2018-04-06] MEDS: PIPERACILLIN/TAZOB 2.25 GM 2.25 GM in DEXTROSE 5%-WATER 100 ML IVPB SCH ×3 (02:54→17:23)
[2018-04-06] MEDS: GABAPENTIN 100 MG CAPSULE (FP) PO SCH ×3 (06:30→21:40)
[2018-04-06] MEDS: INSULIN SLIDING SCALE (NOVOLOG) 1 VIAL SQ SCH ×4 (06:30→21:55)
[2018-04-06] MEDS: CITALOPRAM HYDROBROMIDE 20 MG TABLET (FP) PO SCH (10:28)
[2018-04-06] MEDS: CALCIUM ACETATE 667 MG CAPSULE (FP) PO SCH ×3 (10:28→17:24)
[2018-04-06] MEDS: ASPIRIN COATED 81 MG TABLET.EC PO SCH (10:28)
[2018-04-06] MEDS: FOLIC ACID 1 MG TABLET (FP) PO SCH (10:28)
[2018-04-06] MEDS: CLOPIDOGREL BISULFATE 75 MG TABLET (FP) PO SCH (10:28)
[2018-04-06] MEDS: VITAMIN B COMPLEX W/C COMBO TABLET (FP) PO SCH (10:28)
[2018-04-06] MEDS: CARVEDILOL 12.5 MG TABLET (FP) PO SCH ×2 (10:28→21:40)
[2018-04-06] MEDS: HEPARIN NA (PORCINE) 5,000 UNITS/ML 1ML VIAL SQ SCH ×2 (10:28→21:40)
[2018-04-06] MEDS: RANITIDINE HCL 150 MG TABLET (FP) PO SCH (10:28)
[2018-04-06] MEDS: DIVALPROEX SODIUM 125 MG TABLET E.C. PO SCH ×2 (10:29→21:42)
[2018-04-06] MEDS: COLLAGENASE CLOSTRIDIUM HIST. 30 GRAMS TUBE TP SCH (10:30)
[2018-04-06] MEDS: ZINC OXIDE 20% TOPICAL OINTMENT 454 GM JAR TP SCH (10:45)
[2018-04-06] MEDS ORDERED: INSULIN (NOVOLOG) ASPART 100 UNITS/ML 10ML VIAL ONE ×2 (12:23→21:23)
--- NOTE | 2018-04-06 12:36 | PN ---
Progress Note (short form) - Note Progress Note: patient seen and examined. Comfortable. at bedside. Neurology consult noted and appreciated. MRI of brain ordered Vital Signs Temp 97.7 F 04/06/18 05:51 Pulse 58 L 04/06/18 05:51 Resp 20 04/06/18 05:51 BP 115/49 04/06/18 05:51 Pulse Ox 98 04/05/18 21:00 Intake & Output 04/05/18 04/06/18 04/06/18 23:59 11:59 23:59 Intake Total 600 150 Balance 600 150 Weight 158 lb 152 lb 8 oz Intake: IVPB 200 Oral 400 150 Other: Voiding Method Incontinent Incontinent # Unmeasured Voids Void 1 2 Bowel Movement No Yes Height 5 ft 4 in Body Mass Index (BMI) 27.1 Weight Measurement Method Patient Lift Scale Active Medications Acetaminophen (Tylenol -) 650 mg PO Q6H PRN PRN Reason: PAIN LEVEL 1-5 Last Admin: 04/05/18 23:15 Dose: 650 mg Artificial Tears (Artificial Tears) 1 drop OU Q12H PRN PRN Reason: DRY EYES Aspirin (Ecotrin -) 81 mg PO DAILY [facility] Last Admin: 04/06/18 10:28 Dose: 81 mg Atorvastatin Calcium (Lipitor -) 40 mg PO [facility] Last Admin: 04/05/18 23:08 Dose: 40 mg Calcium Acetate (Phoslo -) 667 mg PO TIDCM [facility] Last Admin: 04/06/18 12:27 Dose: 667 mg Carvedilol (Coreg -) 12.5 mg PO BID [facility] Last Admin: 04/06/18 10:28 Dose: 12.5 mg Citalopram Hydrobromide (Celexa -) 20 mg PO DAILY [facility] Last Admin: 04/06/18 10:28 Dose: 20 mg Clopidogrel Bisulfate (Plavix -) 75 mg PO DAILY [facility] Last Admin: 04/06/18 10:28 Dose: 75 mg Collagenase (Santyl -) 1 applic TP DAILY [facility]; Protocol Last Admin: 04/06/18 10:30 Dose: 1 applic Divalproex Sodium (Depakote -) 125 mg PO BID [facility] Last Admin: 04/06/18 10:29 Dose: 125 mg Docusate Sodium (Colace -) 300 mg PO [facility] Last Admin: 04/05/18 23:17 Dose: 300 mg Folic Acid (Folic Acid -) 1 mg PO DAILY [facility] Last Admin: 04/06/18 10:28 Dose: 1 mg Gabapentin (Neurontin -) 100 mg PO TID [facility] Last Admin: 04/06/18 06:30 Dose: 100 mg Haloperidol (Haldol -) 2 mg PO HS [facility] Last Admin: 04/05/18 23:11 Dose: 2 mg Heparin Sodium (Porcine) (Heparin -) 5,000 unit SQ BID [facility] Last Admin: 04/06/18 10:28 Dose: 5,000 unit Piperacillin Sod/Tazobactam (Sod 2.25 gm/ Dextrose) 100 mls @ 100 mls/hr IVPB Q8H-IV [facility]; Protocol Last Admin: 04/06/18 10:45 Dose: 100 mls/hr Insulin Aspart (Novolog Vial Sliding Scale -) 1 vial SQ ACHS [facility]; Protocol Last Admin: 04/06/18 12:26 Dose: 4 units Insulin Detemir (Levemir Vial) 10 units SQ [facility] Last Admin: 04/05/18 23:12 Dose: 10 unit Mirtazapine (Remeron -) 15 mg PO [facility] Last Admin: 04/05/18 23:18 Dose: 15 mg Multi-Ingredient Ointment (Zinc Oxide 20% Topical Oint) 1 gm TP DAILY [facility] Last Admin: 04/06/18 10:45 Dose: 1 applic Multivitamins (Total B With C -) 1 each PO DAILY [facility] Last Admin: 04/06/18 10:28 Dose: 1 each Ranitidine HCl (Zantac -) 150 mg PO DAILY [facility] Last Admin: 04/06/18 10:28 Dose: 150 mg Tamsulosin HCl (Flomax -) 0.4 mg PO [facility] Last Admin: 04/05/18 23:08 Dose: 0.4 mg CBC, BMP 04/05/18 15:00 04/05/18 15:00 Microbiology 04/02/18 19:00 Blood Culture - Preliminary Blood - Peripheral Venous NO GROWTH OBTAINED AFTER 72 HOURS, INCUBATION TO CONTINUE FOR 2 DAYS. 04/02/18 19:00 Blood Culture - Preliminary Blood - Peripheral Venous NO GROWTH OBTAINED AFTER 72 HOURS, INCUBATION TO CONTINUE FOR 2 DAYS. Physical exam. Constitutional: Yes: No Distress, Comfortable. Neck: Yes: Supple. no jvd Cardiovascular: Yes: Regular Rate and Rhythm Respiratory: Yes: Diminished Gastrointestinal: Yes: Soft/ non tender Edema: No Wound/Incision: Yes: Bilateral heel ulcers -- dressing +--detailed podiatry-- note reviewed Neurological: Yes: Alert Psychiatric: Yes: Alert Labs: Assessment/Plan clinically stable Continue present care abx bone scan-ve Arterial doppler-- Atherosclertic disease monitor bgm-borderline elevated--- monitor dialysis per renal daily oob - chair MRI brain--Pending discussed with --- Was at bedside We will follow Problem List - Problems (1) Diabetes Code(s): E11.9 - TYPE 2 DIABETES MELLITUS WITHOUT COMPLICATIONS Qualifiers: 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 type: type 1 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 complication status: with circulatory complication (2) ESRD (end stage renal disease) on dialysis Code(s): N18.6 - END STAGE RENAL DISEASE; Z99.2 - DEPENDENCE ON RENAL DIALYSIS (3) Infected pressure ulcer Code(s): L89.90 - PRESSURE ULCER OF UNSPECIFIED SITE, UNSPECIFIED STAGE; L08.9 - LOCAL INFECTION OF THE SKIN AND SUBCUTANEOUS TISSUE, UNSP (4) Syncope Code(s): R55 - SYNCOPE AND COLLAPSE (5) Acute metabolic encephalopathy due to hypoglycemia Code(s): G93.41 - METABOLIC ENCEPHALOPATHY; E16.2 - HYPOGLYCEMIA, UNSPECIFIED (6) Anemia Code(s): D64.9 - ANEMIA, UNSPECIFIED (7) CAD (coronary artery disease) Code(s): I25.10 - ATHSCL HEART DISEASE OF [place] CORONARY ARTERY W/O ANG PCTRS (8) ESRD (end stage renal disease) on dialysis Code(s): N18.6 - END STAGE RENAL DISEASE; Z99.2 - DEPENDENCE ON RENAL DIALYSIS
--- NOTE | 2018-04-06 13:20 | PN ---
Progress Note (short form) - Note Progress Note: Thanking for consult, i was asked to evaluate for possible stroke. He is 72 year old male with multiple comorbidites including DM,HTN,CHF,ESRD ON HD . [place]. He has episode of confusion. His brought to attention that his left sided is weaker. He is able to eat and there has not been any visual changes, aphasia or headhace or seizure like activity. There is no fever. He did have ct head today and it was unremarkable compare to previosu one SUBJECTIVE: I saw him with his at bedside , and she says he do have tremors when he tries to do something , not all the time. There is no resting tremors Neurological Examination Alert orientedx 2, speech is dysarthric ( not clear if new ) no face asymmetry, Vf normal by confrotation, pupils reactive left upper and lower extremity grade 4 plus sensation is normal there is no cogwheel rigidty or bradykinesia or resting tremors were not seen ct unchanged mri of brain pending Assessment-1. Possible right sided acute stroke, risk factor include HTN,DM, CHF , He is already on plavix and statin 2. essential tremors , unlikley to be parkinson disease and seizure, tremors seems to be essential tremors. consider medication ( inderal Plan-awaiting for mri , if confirm would do carotid ultrasound and further work up - consider beta malini , if he remains difficulty with tremors, at this time we mutually agre to hold medication, tsh can be obtained. Thanking you so much Jose Angel Blankenship MD
--- NOTE | 2018-04-06 14:20 | PN ---
Progress Note, Physician History of Present Illness: Pt seen and examined at bedside. He is awake and appears comfortable. He denies shortness of breath. - Current Medication List Current Medications: Active Medications Acetaminophen (Tylenol -) 650 mg PO Q6H PRN PRN Reason: PAIN LEVEL 1-5 Last Admin: 04/05/18 23:15 Dose: 650 mg Artificial Tears (Artificial Tears) 1 drop OU Q12H PRN PRN Reason: DRY EYES Aspirin (Ecotrin -) 81 mg PO DAILY [facility] Last Admin: 04/06/18 10:28 Dose: 81 mg Atorvastatin Calcium (Lipitor -) 40 mg PO HS [facility] Last Admin: 04/05/18 23:08 Dose: 40 mg Calcium Acetate (Phoslo -) 667 mg PO TIDCM [facility] Last Admin: 04/06/18 12:27 Dose: 667 mg Carvedilol (Coreg -) 12.5 mg PO BID [facility] Last Admin: 04/06/18 10:28 Dose: 12.5 mg Citalopram Hydrobromide (Celexa -) 20 mg PO DAILY [facility] Last Admin: 04/06/18 10:28 Dose: 20 mg Clopidogrel Bisulfate (Plavix -) 75 mg PO DAILY [facility] Last Admin: 04/06/18 10:28 Dose: 75 mg Collagenase (Santyl -) 1 applic TP DAILY [facility]; Protocol Last Admin: 04/06/18 10:30 Dose: 1 applic Divalproex Sodium (Depakote -) 125 mg PO BID [facility] Last Admin: 04/06/18 10:29 Dose: 125 mg Docusate Sodium (Colace -) 300 mg PO HS [facility] Last Admin: 04/05/18 23:17 Dose: 300 mg Folic Acid (Folic Acid -) 1 mg PO DAILY [facility] Last Admin: 04/06/18 10:28 Dose: 1 mg Gabapentin (Neurontin -) 100 mg PO TID [facility] Last Admin: 04/06/18 14:12 Dose: 100 mg Haloperidol (Haldol -) 2 mg PO HS [facility] Last Admin: 04/05/18 23:11 Dose: 2 mg Heparin Sodium (Porcine) (Heparin -) 5,000 unit SQ BID [facility] Last Admin: 04/06/18 10:28 Dose: 5,000 unit Piperacillin Sod/Tazobactam (Sod 2.25 gm/ Dextrose) 100 mls @ 100 mls/hr IVPB Q8H-IV [facility]; Protocol Last Admin: 04/06/18 10:45 Dose: 100 mls/hr Insulin Aspart (Novolog Vial Sliding Scale -) 1 vial SQ [facility]; Protocol Last Admin: 04/06/18 12:26 Dose: 4 units Insulin Detemir (Levemir Vial) 10 units SQ [facility] Last Admin: 04/05/18 23:12 Dose: 10 unit Mirtazapine (Remeron -) 15 mg PO [facility] Last Admin: 04/05/18 23:18 Dose: 15 mg Multi-Ingredient Ointment (Zinc Oxide 20% Topical Oint) 1 gm TP DAILY [facility] Last Admin: 04/06/18 10:45 Dose: 1 applic Multivitamins (Total B With C -) 1 each PO DAILY [facility] Last Admin: 04/06/18 10:28 Dose: 1 each Ranitidine HCl (Zantac -) 150 mg PO DAILY [facility] Last Admin: 04/06/18 10:28 Dose: 150 mg Tamsulosin HCl (Flomax -) 0.4 mg PO [facility] Last Admin: 04/05/18 23:08 Dose: 0.4 mg - Objective Vital Signs: Vital Signs Temperature 98.6 F 04/06/18 13:36 Pulse Rate 60 04/06/18 13:36 Respiratory Rate 20 04/06/18 13:36 Blood Pressure 113/47 04/06/18 13:36 O2 Sat by Pulse Oximetry (%) 98 04/05/18 21:00 Constitutional: Yes: Calm Eyes: Yes: Conjunctiva Clear HENT: Yes: Atraumatic Cardiovascular: Yes: S1, S2 Respiratory: Yes: CTA Bilaterally Gastrointestinal: Yes: Soft Genitourinary: Yes: WNL Edema: No Wound/Incision: Yes: Other (wound vac in place) Labs: CBC, BMP 04/05/18 15:00 04/05/18 15:00 INR, PTT INR 1.20 (0.83-1.09) H 03/28/18 22:22 Problem List - Problems (1) Diabetes Code(s): E11.9 - TYPE 2 DIABETES MELLITUS WITHOUT COMPLICATIONS (2) ESRD (end stage renal disease) on dialysis Code(s): N18.6 - END STAGE RENAL DISEASE; Z99.2 - DEPENDENCE ON RENAL DIALYSIS (3) Syncope Code(s): R55 - SYNCOPE AND COLLAPSE (4) Anemia Code(s): D64.9 - ANEMIA, UNSPECIFIED Assessment/Plan Current Medications Generic Name Dose Route Start Last Admin Trade Name David PRN Reason Stop Dose Admin Acetaminophen 650 mg 04/02/18 15:12 04/05/18 23:15 Tylenol - PO 650 mg Q6H PRN Administration PAIN LEVEL 1-5 Artificial Tears 1 drop 04/02/18 15:12 Artificial Tears OU Q12H PRN DRY EYES Aspirin 81 mg 04/03/18 10:00 04/06/18 10:28 Ecotrin - PO 81 mg DAILY [facility] Administration Atorvastatin Calcium 40 mg 04/02/18 22:00 04/05/18 23:08 Lipitor - PO 40 mg HS [facility] Administration Calcium Acetate 667 mg 04/02/18 17:30 04/06/18 12:27 Phoslo - PO 667 mg TIDCM [facility] Administration Carvedilol 12.5 mg 04/02/18 22:00 04/06/18 10:28 Coreg - PO 12.5 mg BID [facility] Administration Citalopram Hydrobromide 20 mg 04/03/18 10:00 04/06/18 10:28 Celexa - PO 20 mg DAILY [facility] Administration Clopidogrel Bisulfate 75 mg 04/03/18 10:00 04/06/18 10:28 Plavix - PO 75 mg DAILY [facility] Administration Collagenase 1 applic 04/03/18 10:00 04/06/18 10:30 Santyl - TP 1 applic DAILY [facility] Administration Protocol Divalproex Sodium 125 mg 04/02/18 22:00 04/06/18 10:29 Depakote - PO 125 mg BID [facility] Administration Docusate Sodium 300 mg 04/02/18 22:00 04/05/18 23:17 Colace - PO 300 mg HS [facility] Administration Folic Acid 1 mg 04/03/18 10:00 04/06/18 10:28 Folic Acid - PO 1 mg DAILY [facility] Administration Gabapentin 100 mg 04/02/18 22:00 04/06/18 14:12 Neurontin - PO 100 mg TID [facility] Administration Haloperidol 2 mg 04/02/18 22:00 04/05/18 23:11 Haldol - PO 2 mg HS [facility] Administration Heparin Sodium (Porcine) 5,000 unit 04/02/18 22:00 04/06/18 10:28 Heparin - SQ 5,000 unit BID [facility] Administration Piperacillin Sod/Tazobactam 100 mls @ 100 mls/hr 04/05/18 02:00 04/06/18 10: 45 Sod 2.25 gm/ Dextrose IVPB 100 mls/hr Q8H-IV [facility] Administration Protocol Insulin Aspart 1 vial 04/02/18 16:30 04/06/18 12:26 Novolog Vial Sliding Scale - SQ 4 units ACHS [facility] Administration Protocol Insulin Detemir 10 units 04/05/18 11:36 04/05/18 23:12 Levemir Vial SQ 10 unit HS [facility] Administration Mirtazapine 15 mg 04/02/18 22:00 04/05/18 23:18 Remeron - PO 15 mg HS [facility] Administration Multi-Ingredient Ointment 1 gm 04/03/18 10:00 04/06/18 10:45 Zinc Oxide 20% Topical Oint TP 1 applic DAILY [facility] Administration Multivitamins 1 each 04/03/18 10:00 04/06/18 10:28 Total B With C - PO 1 each DAILY [facility] Administration Ranitidine HCl 150 mg 04/03/18 10:00 04/06/18 10:28 Zantac - PO 150 mg DAILY [facility] Administration Tamsulosin HCl 0.4 mg 04/02/18 22:00 04/05/18 23:08 Flomax - PO 0.4 mg HS [facility] Administration Impression 1. ESRD 2. anemia 3. HTN 4. Chol 5. DM 6. BPH 7. CAD 8. hypoglycemia 9. CHF 10. syncope 11. depression Plan - next HD on Sunday - cont wound care - discussed plan with - monitor bp - cont epogen - will follow Dr Donovan
[2018-04-06] MEDS: ATORVASTATIN CA 40 MG TABLET (FP) PO SCH (21:40)
[2018-04-06] MEDS: TAMSULOSIN HCL 0.4 MG CAP.ER.24H (FP) PO SCH (21:41)
[2018-04-06] MEDS: DOCUSATE SODIUM 100 MG CAPSULE (FP) PO SCH (21:41)
[2018-04-06] MEDS: INSULIN (LEVEMIR) 100 UNITS/ML UNITS SQ SCH (21:42)
[2018-04-06] MEDS: MIRTAZAPINE 15 MG TABLET (FP) PO SCH (21:42)
[2018-04-06] MEDS: HALOPERIDOL 1 MG TABLET (FP) PO SCH (21:43)
[2018-04-06] MEDS ORDERED: INSULIN (NOVOLOG) ASPART 100 UNITS/ML 10ML VIAL SQ ONE (22:00)
[2018-04-06] MEDS: ACETAMINOPHEN 325 MG TABLET (FP) PO PRN (22:21)
[2018-04-07] MEDS ORDERED: DEXTROSE 5%-WATER 100 ML IVPB ONE ×2 (01:15→10:02)
[2018-04-07] MEDS ORDERED: PIPERACILLIN/TAZOBACTAM 2.25 GM VIAL IVPB ONE ×2 (01:15→10:01)
[2018-04-07] MEDS: PIPERACILLIN/TAZOB 2.25 GM 2.25 GM in DEXTROSE 5%-WATER 100 ML IVPB SCH ×3 (01:37→18:00)
[2018-04-07] MEDS: GABAPENTIN 100 MG CAPSULE (FP) PO SCH ×4 (05:43→21:26)
[2018-04-07] MEDS: INSULIN SLIDING SCALE (NOVOLOG) 1 VIAL SQ SCH ×4 (06:53→21:29)
[2018-04-07] MEDS: CARVEDILOL 12.5 MG TABLET (FP) PO SCH ×2 (10:12→21:26)
[2018-04-07] MEDS: VITAMIN B COMPLEX W/C COMBO TABLET (FP) PO SCH (10:12)
[2018-04-07] MEDS: RANITIDINE HCL 150 MG TABLET (FP) PO SCH (10:12)
[2018-04-07] MEDS: CALCIUM ACETATE 667 MG CAPSULE (FP) PO SCH ×3 (10:12→18:00)
[2018-04-07] MEDS: CITALOPRAM HYDROBROMIDE 20 MG TABLET (FP) PO SCH (10:12)
[2018-04-07] MEDS: CLOPIDOGREL BISULFATE 75 MG TABLET (FP) PO SCH (10:12)
[2018-04-07] MEDS: HEPARIN NA (PORCINE) 5,000 UNITS/ML 1ML VIAL SQ SCH ×2 (10:12→21:25)
[2018-04-07] MEDS: FOLIC ACID 1 MG TABLET (FP) PO SCH (10:12)
[2018-04-07] MEDS: ZINC OXIDE 20% TOPICAL OINTMENT 454 GM JAR TP SCH (10:13)
[2018-04-07] MEDS: ASPIRIN COATED 81 MG TABLET.EC PO SCH (10:13)
[2018-04-07] MEDS: COLLAGENASE CLOSTRIDIUM HIST. 30 GRAMS TUBE TP SCH (10:13)
[2018-04-07] MEDS ORDERED: PT OWN MED DRAWER 7, Y5N ONE ×2 (10:16→17:32)
[2018-04-07] MEDS: DIVALPROEX SODIUM 125 MG TABLET E.C. PO SCH ×2 (10:17→21:26)
[2018-04-07] MEDS ORDERED: INSULIN (LEVEMIR) 100 UNITS/ML UNITS SQ SCH (13:11)
--- NOTE | 2018-04-07 13:11 | PN ---
Progress Note (short form) - Note Progress Note: Comfortable no new issues MRI negative for--Acute CVA Vital Signs Temp 98.7 F 04/07/18 05:00 Pulse 58 L 04/07/18 05:00 Resp 20 04/07/18 05:00 BP 117/50 04/07/18 05:00 Pulse Ox 98 04/06/18 21:00 Intake & Output 04/06/18 04/07/18 04/07/18 23:59 11:59 23:59 Intake Total 300 50 Balance 300 50 Weight 152 lb 12.8 oz Intake: IVPB 50 Oral 300 Other: Voiding Method Incontinent Diaper # Unmeasured Voids Void 2 Bowel Movement No Weight Measurement Method Patient Lift Scale Active Medications Acetaminophen (Tylenol -) 650 mg PO Q6H PRN PRN Reason: PAIN LEVEL 1-5 Last Admin: 04/06/18 22:21 Dose: 650 mg Artificial Tears (Artificial Tears) 1 drop OU Q12H PRN PRN Reason: DRY EYES Aspirin (Ecotrin -) 81 mg PO DAILY [facility] Last Admin: 04/07/18 10:13 Dose: 81 mg Atorvastatin Calcium (Lipitor -) 40 mg PO [facility] Last Admin: 04/06/18 21:40 Dose: 40 mg Calcium Acetate (Phoslo -) 667 mg PO TIDCM [facility] Last Admin: 04/07/18 10:12 Dose: 667 mg Carvedilol (Coreg -) 12.5 mg PO BID [facility] Last Admin: 04/07/18 10:12 Dose: 12.5 mg Citalopram Hydrobromide (Celexa -) 20 mg PO DAILY [facility] Last Admin: 04/07/18 10:12 Dose: 20 mg Clopidogrel Bisulfate (Plavix -) 75 mg PO DAILY [facility] Last Admin: 04/07/18 10:12 Dose: 75 mg Collagenase (Santyl -) 1 applic TP DAILY [facility]; Protocol Last Admin: 04/07/18 10:13 Dose: 1 applic Divalproex Sodium (Depakote -) 125 mg PO BID [facility] Last Admin: 04/07/18 10:17 Dose: 125 mg Docusate Sodium (Colace -) 300 mg PO [facility] Last Admin: 04/06/18 21:41 Dose: 300 mg Folic Acid (Folic Acid -) 1 mg PO DAILY [facility] Last Admin: 04/07/18 10:12 Dose: 1 mg Gabapentin (Neurontin -) 100 mg PO TID [facility] Last Admin: 04/07/18 05:51 Dose: Not Given Haloperidol (Haldol -) 2 mg PO [facility] Last Admin: 04/06/18 21:43 Dose: 2 mg Heparin Sodium (Porcine) (Heparin -) 5,000 unit SQ BID [facility] Last Admin: 04/07/18 10:12 Dose: 5,000 unit Piperacillin Sod/Tazobactam (Sod 2.25 gm/ Dextrose) 100 mls @ 100 mls/hr IVPB Q8H-IV [facility]; Protocol Last Admin: 04/07/18 10:17 Dose: 100 mls/hr Insulin Aspart (Novolog Vial Sliding Scale -) 1 vial SQ ACHS [facility]; Protocol Last Admin: 04/07/18 12:55 Dose: 2 units Insulin Detemir (Levemir Vial) 12 units SQ HS [facility] Mirtazapine (Remeron -) 15 mg PO [facility] Last Admin: 04/06/18 21:42 Dose: 15 mg Multi-Ingredient Ointment (Zinc Oxide 20% Topical Oint) 1 gm TP DAILY [facility] Last Admin: 04/07/18 10:13 Dose: 1 applic Multivitamins (Total B With C -) 1 each PO DAILY [facility] Last Admin: 04/07/18 10:12 Dose: 1 each Ranitidine HCl (Zantac -) 150 mg PO DAILY [facility] Last Admin: 04/07/18 10:12 Dose: 150 mg Tamsulosin HCl (Flomax -) 0.4 mg PO [facility] Last Admin: 04/06/18 21:41 Dose: 0.4 mg CBC, BMP 04/05/18 15:00 04/06/18 22:10 Microbiology 04/02/18 19:00 Blood Culture - Preliminary Blood - Peripheral Venous NO GROWTH OBTAINED AFTER 96 HOURS, INCUBATION TO CONTINUE FOR 1 DAYS. 04/02/18 19:00 Blood Culture - Preliminary Blood - Peripheral Venous NO GROWTH OBTAINED AFTER 96 HOURS, INCUBATION TO CONTINUE FOR 1 DAYS. Physical exam. Constitutional: Yes: No Distress, Comfortable. Neck: Yes: Supple. no jvd Cardiovascular: Yes: Regular Rate and Rhythm Respiratory: Yes: Diminished Gastrointestinal: Yes: Soft/ non tender Edema: No Wound/Incision: Yes: Bilateral heel ulcers -- dressing +- Neurological: Yes: Alert Psychiatric: Yes: Alert Labs: Assessment/Plan clinically stable Continue present care abx bone scan-ve Arterial doppler-- Atherosclertic disease monitor bgm- dialysis per renal we will follow Problem List - Problems (1) Diabetes Code(s): E11.9 - TYPE 2 DIABETES MELLITUS WITHOUT COMPLICATIONS Qualifiers: 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 type: type 1 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 complication status: with circulatory complication (2) ESRD (end stage renal disease) on dialysis Code(s): N18.6 - END STAGE RENAL DISEASE; Z99.2 - DEPENDENCE ON RENAL DIALYSIS (3) Infected pressure ulcer Code(s): L89.90 - PRESSURE ULCER OF UNSPECIFIED SITE, UNSPECIFIED STAGE; L08.9 - LOCAL INFECTION OF THE SKIN AND SUBCUTANEOUS TISSUE, UNSP (4) Syncope Code(s): R55 - SYNCOPE AND COLLAPSE (5) Acute metabolic encephalopathy due to hypoglycemia Code(s): G93.41 - METABOLIC ENCEPHALOPATHY; E16.2 - HYPOGLYCEMIA, UNSPECIFIED (6) Anemia Code(s): D64.9 - ANEMIA, UNSPECIFIED (7) CAD (coronary artery disease) Code(s): I25.10 - ATHSCL HEART DISEASE OF [place] CORONARY ARTERY W/O ANG PCTRS (8) ESRD (end stage renal disease) on dialysis Code(s): N18.6 - END STAGE RENAL DISEASE; Z99.2 - DEPENDENCE ON RENAL DIALYSIS
--- NOTE | 2018-04-07 14:06 | PN ---
Progress Note (short form) - Note Progress Note: Thanking for consult, i was asked to evaluate for possible stroke. He is 72 year old male with multiple comorbidites including DM,HTN,CHF,ESRD ON HD . He came from [place] for fall. He has episode of confusion. His brought to attention that his left sided is weaker. He is able to eat and there has not been any visual changes, aphasia or headhace or seizure like activity. There is no fever. He did have ct head today and it was unremarkable compare to previosu one SUBJECTIVE: spoke to nursing and patient is sleepy but no temors, and mri did not show any acute stroke Neurological Examination Alert orientedx 2, speech is dysarthric ( not clear if new ) no face asymmetry, Vf normal by confrotation, pupils reactive left upper and lower extremity grade 4 plus sensation is normal there is no cogwheel rigidty or bradykinesia or resting tremors were not seen ct unchanged mri of brain no acute stroke tsh i s.23 Assessment-1. No acute stroke identified, 2. essential tremors , unlikley to be parkinson disease and seizure, tremors seems to be essential tremors. consider medication ( inderal) there is no tremors seen during exam and would hold medication Plan-no need for further work up. his mild left sided syptoms could be old and he is currently on maximal medical therapy - hold medication for action tremor. Thanking you so much Jose Angel Blankenship MD
[2018-04-07] MEDS ORDERED: SODIUM CHLORIDE 250 ML IV PRN (14:57)
--- NOTE | 2018-04-07 14:57 | PN ---
Progress Note, Physician History of Present Illness: Pt seen and examined at bedside. He is awake and appears comfortable. He denies shortness of breath. - Current Medication List Current Medications: Active Medications Acetaminophen (Tylenol -) 650 mg PO Q6H PRN PRN Reason: PAIN LEVEL 1-5 Last Admin: 04/06/18 22:21 Dose: 650 mg Artificial Tears (Artificial Tears) 1 drop OU Q12H PRN PRN Reason: DRY EYES Aspirin (Ecotrin -) 81 mg PO DAILY [facility] Last Admin: 04/07/18 10:13 Dose: 81 mg Atorvastatin Calcium (Lipitor -) 40 mg PO HS [facility] Last Admin: 04/06/18 21:40 Dose: 40 mg Calcium Acetate (Phoslo -) 667 mg PO TIDCM [facility] Last Admin: 04/07/18 10:12 Dose: 667 mg Carvedilol (Coreg -) 12.5 mg PO BID [facility] Last Admin: 04/07/18 10:12 Dose: 12.5 mg Citalopram Hydrobromide (Celexa -) 20 mg PO DAILY [facility] Last Admin: 04/07/18 10:12 Dose: 20 mg Clopidogrel Bisulfate (Plavix -) 75 mg PO DAILY [facility] Last Admin: 04/07/18 10:12 Dose: 75 mg Collagenase (Santyl -) 1 applic TP DAILY [facility]; Protocol Last Admin: 04/07/18 10:13 Dose: 1 applic Divalproex Sodium (Depakote -) 125 mg PO BID [facility] Last Admin: 04/07/18 10:17 Dose: 125 mg Docusate Sodium (Colace -) 300 mg PO HS [facility] Last Admin: 04/06/18 21:41 Dose: 300 mg Folic Acid (Folic Acid -) 1 mg PO DAILY [facility] Last Admin: 04/07/18 10:12 Dose: 1 mg Gabapentin (Neurontin -) 100 mg PO TID [facility] Last Admin: 04/07/18 05:51 Dose: Not Given Haloperidol (Haldol -) 2 mg PO HS [facility] Last Admin: 04/06/18 21:43 Dose: 2 mg Heparin Sodium (Porcine) (Heparin -) 5,000 unit SQ BID [facility] Last Admin: 04/07/18 10:12 Dose: 5,000 unit Piperacillin Sod/Tazobactam (Sod 2.25 gm/ Dextrose) 100 mls @ 100 mls/hr IVPB Q8H-IV [facility]; Protocol Last Admin: 04/07/18 10:17 Dose: 100 mls/hr Insulin Aspart (Novolog Vial Sliding Scale -) 1 vial SQ [facility]; Protocol Last Admin: 04/07/18 12:55 Dose: 2 units Insulin Detemir (Levemir Vial) 12 units SQ [facility] Mirtazapine (Remeron -) 15 mg PO HS [facility] Last Admin: 04/06/18 21:42 Dose: 15 mg Multi-Ingredient Ointment (Zinc Oxide 20% Topical Oint) 1 gm TP DAILY [facility] Last Admin: 04/07/18 10:13 Dose: 1 applic Multivitamins (Total B With C -) 1 each PO DAILY [facility] Last Admin: 04/07/18 10:12 Dose: 1 each Ranitidine HCl (Zantac -) 150 mg PO DAILY [facility] Last Admin: 04/07/18 10:12 Dose: 150 mg Tamsulosin HCl (Flomax -) 0.4 mg PO [facility] Last Admin: 04/06/18 21:41 Dose: 0.4 mg - Objective Vital Signs: Vital Signs Temperature 98.4 F 04/07/18 13:45 Pulse Rate 61 04/07/18 13:45 Respiratory Rate 18 04/07/18 13:45 Blood Pressure 135/50 04/07/18 13:45 O2 Sat by Pulse Oximetry (%) 98 04/06/18 21:00 Constitutional: Yes: Calm Eyes: Yes: Conjunctiva Clear HENT: Yes: Atraumatic Cardiovascular: Yes: S1, S2 Respiratory: Yes: CTA Bilaterally Gastrointestinal: Yes: Soft Genitourinary: Yes: WNL Musculoskeletal: Yes: WNL Edema: No Wound/Incision: Yes: Other (wound vac) Neurological: Yes: Oriented Psychiatric: Yes: Oriented Labs: CBC, BMP 04/05/18 15:00 04/06/18 22:10 INR, PTT INR 1.20 (0.83-1.09) H 03/28/18 22:22 Problem List - Problems (1) Diabetes Code(s): E11.9 - TYPE 2 DIABETES MELLITUS WITHOUT COMPLICATIONS (2) ESRD (end stage renal disease) on dialysis Code(s): N18.6 - END STAGE RENAL DISEASE; Z99.2 - DEPENDENCE ON RENAL DIALYSIS (3) Syncope Code(s): R55 - SYNCOPE AND COLLAPSE (4) Anemia Code(s): D64.9 - ANEMIA, UNSPECIFIED Assessment/Plan Current Medications Generic Name Dose Route Start Last Admin Trade Name Freq PRN Reason Stop Dose Admin Acetaminophen 650 mg 04/02/18 15:12 04/06/18 22:21 Tylenol - PO 650 mg Q6H PRN Administration PAIN LEVEL 1-5 Artificial Tears 1 drop 04/02/18 15:12 Artificial Tears OU Q12H PRN DRY EYES Aspirin 81 mg 04/03/18 10:00 04/07/18 10:13 Ecotrin - PO 81 mg DAILY [facility] Administration Atorvastatin Calcium 40 mg 04/02/18 22:00 04/06/18 21:40 Lipitor - PO 40 mg HS [facility] Administration Calcium Acetate 667 mg 04/02/18 17:30 04/07/18 10:12 Phoslo - PO 667 mg TIDCM [facility] Administration Carvedilol 12.5 mg 04/02/18 22:00 04/07/18 10:12 Coreg - PO 12.5 mg BID [facility] Administration Citalopram Hydrobromide 20 mg 04/03/18 10:00 04/07/18 10:12 Celexa - PO 20 mg DAILY [facility] Administration Clopidogrel Bisulfate 75 mg 04/03/18 10:00 04/07/18 10:12 Plavix - PO 75 mg DAILY [facility] Administration Collagenase 1 applic 04/03/18 10:00 04/07/18 10:13 Santyl - TP 1 applic DAILY [facility] Administration Protocol Divalproex Sodium 125 mg 04/02/18 22:00 04/07/18 10:17 Depakote - PO 125 mg BID [facility] Administration Docusate Sodium 300 mg 04/02/18 22:00 04/06/18 21:41 Colace - PO 300 mg HS [facility] Administration Folic Acid 1 mg 04/03/18 10:00 04/07/18 10:12 Folic Acid - PO 1 mg DAILY [facility] Administration Gabapentin 100 mg 04/02/18 22:00 04/07/18 05:51 Neurontin - PO Not Given TID [facility] Haloperidol 2 mg 04/02/18 22:00 04/06/18 21:43 Haldol - PO 2 mg HS [facility] Administration Heparin Sodium (Porcine) 5,000 unit 04/02/18 22:00 04/07/18 10:12 Heparin - SQ 5,000 unit BID [facility] Administration Piperacillin Sod/Tazobactam 100 mls @ 100 mls/hr 04/05/18 02:00 04/07/18 10: 17 Sod 2.25 gm/ Dextrose IVPB 100 mls/hr Q8H-IV [facility] Administration Protocol Insulin Aspart 1 vial 04/02/18 16:30 04/07/18 12:55 Novolog Vial Sliding Scale - SQ 2 units ACHS [facility] Administration Protocol Insulin Detemir 12 units 04/07/18 13:11 Levemir Vial SQ HS [facility] Mirtazapine 15 mg 04/02/18 22:00 04/06/18 21:42 Remeron - PO 15 mg HS [facility] Administration Multi-Ingredient Ointment 1 gm 04/03/18 10:00 04/07/18 10:13 Zinc Oxide 20% Topical Oint TP 1 applic DAILY [facility] Administration Multivitamins 1 each 04/03/18 10:00 04/07/18 10:12 Total B With C - PO 1 each DAILY [facility] Administration Ranitidine HCl 150 mg 04/03/18 10:00 04/07/18 10:12 Zantac - PO 150 mg DAILY [facility] Administration Tamsulosin HCl 0.4 mg 04/02/18 22:00 04/06/18 21:41 Flomax - PO 0.4 mg HS [facility] Administration Selected Entries 04/07/18 04/07/18 04/07/18 05:00 10:00 13:45 Blood Pressure 117/50 128/54 135/50 Impression 1. ESRD 2. anemia 3. HTN 4. Chol 5. DM 6. BPH 7. CAD 8. hypoglycemia 9. CHF 10. syncope 11. depression Plan - HD tomorrow - orders written - cont wound care - monitor bp - cont epogen - will follow Dr Donovan
[2018-04-07] MEDS ORDERED: INSULIN (NOVOLOG) ASPART 100 UNITS/ML 10ML VIAL ONE (21:08)
[2018-04-07] MEDS: ATORVASTATIN CA 40 MG TABLET (FP) PO SCH (21:25)
[2018-04-07] MEDS: DOCUSATE SODIUM 100 MG CAPSULE (FP) PO SCH (21:26)
[2018-04-07] MEDS: TAMSULOSIN HCL 0.4 MG CAP.ER.24H (FP) PO SCH (21:26)
[2018-04-07] MEDS: MIRTAZAPINE 15 MG TABLET (FP) PO SCH (21:27)
[2018-04-07] MEDS: HALOPERIDOL 1 MG TABLET (FP) PO SCH (21:27)
[2018-04-08] MEDS ORDERED: DEXTROSE 5%-WATER 100 ML IVPB ONE ×3 (01:06→18:28)
[2018-04-08] MEDS ORDERED: PIPERACILLIN/TAZOBACTAM 2.25 GM VIAL IVPB ONE ×3 (01:06→18:28)
[2018-04-08] MEDS: PIPERACILLIN/TAZOB 2.25 GM 2.25 GM in DEXTROSE 5%-WATER 100 ML IVPB SCH ×3 (01:32→18:34)
[2018-04-08] MEDS: GABAPENTIN 100 MG CAPSULE (FP) PO SCH ×3 (06:05→21:41)
[2018-04-08] MEDS: INSULIN SLIDING SCALE (NOVOLOG) 1 VIAL SQ SCH ×4 (06:10→21:45)
--- NOTE | 2018-04-08 09:52 | PN ---
Progress Note, Physician Chief Complaint: Patient seen for necrotic decubiti ulcerations bilateral heel and cellulitis. 3 days of wound vacuum right heel. No complaints. Less pain of right heel. - Current Medication List Current Medications: Active Medications Acetaminophen (Tylenol -) 650 mg PO Q6H PRN PRN Reason: PAIN LEVEL 1-5 Last Admin: 04/06/18 22:21 Dose: 650 mg Artificial Tears (Artificial Tears) 1 drop OU Q12H PRN PRN Reason: DRY EYES Aspirin (Ecotrin -) 81 mg PO DAILY [facility] Last Admin: 04/07/18 10:13 Dose: 81 mg Atorvastatin Calcium (Lipitor -) 40 mg PO HS [facility] Last Admin: 04/07/18 21:25 Dose: 40 mg Calcium Acetate (Phoslo -) 667 mg PO TIDCM [facility] Last Admin: 04/07/18 18:00 Dose: 667 mg Carvedilol (Coreg -) 12.5 mg PO BID [facility] Last Admin: 04/07/18 21:26 Dose: 12.5 mg Citalopram Hydrobromide (Celexa -) 20 mg PO DAILY [facility] Last Admin: 04/07/18 10:12 Dose: 20 mg Clopidogrel Bisulfate (Plavix -) 75 mg PO DAILY [facility] Last Admin: 04/07/18 10:12 Dose: 75 mg Collagenase (Santyl -) 1 applic TP DAILY [facility]; Protocol Last Admin: 04/07/18 10:13 Dose: 1 applic Divalproex Sodium (Depakote -) 125 mg PO BID [facility] Last Admin: 04/07/18 21:26 Dose: 125 mg Docusate Sodium (Colace -) 300 mg PO HS [facility] Last Admin: 04/07/18 21:26 Dose: 300 mg Epoetin Jose Francisco (Procrit -) 10,000 unit IVPUSH ONCE ONE Stop: 04/08/18 14:58 Folic Acid (Folic Acid -) 1 mg PO DAILY [facility] Last Admin: 04/07/18 10:12 Dose: 1 mg Gabapentin (Neurontin -) 100 mg PO TID [facility] Last Admin: 04/08/18 06:05 Dose: 100 mg Haloperidol (Haldol -) 2 mg PO HS [facility] Last Admin: 04/07/18 21:27 Dose: 2 mg Heparin Sodium (Porcine) (Heparin -) 5,000 unit SQ BID [facility] Last Admin: 04/07/18 21:25 Dose: 5,000 unit Piperacillin Sod/Tazobactam (Sod 2.25 gm/ Dextrose) 100 mls @ 100 mls/hr IVPB Q8H-IV [facility]; Protocol Last Admin: 04/08/18 01:32 Dose: 100 mls/hr Sodium Chloride (Normal Saline -) 250 mls @ 3,000 mls/hr IV PRN PRN PRN Reason: Hypotension during Dialysis Stop: 04/08/18 14:57 Insulin Aspart (Novolog Vial Sliding Scale -) [address] [facility]; Protocol Last Admin: 04/08/18 06:10 Dose: 2 units Insulin Detemir (Levemir Vial) 12 units SQ HS [facility] Last Admin: 04/07/18 21:28 Dose: 12 unit Mirtazapine (Remeron -) 15 mg PO HS [facility] Last Admin: 04/07/18 21:27 Dose: 15 mg Multi-Ingredient Ointment (Zinc Oxide 20% Topical Oint) 1 gm TP DAILY [facility] Last Admin: 04/07/18 10:13 Dose: 1 applic Multivitamins (Total B With C -) 1 each PO DAILY [facility] Last Admin: 04/07/18 10:12 Dose: 1 each Ranitidine HCl (Zantac -) 150 mg PO DAILY [facility] Last Admin: 04/07/18 10:12 Dose: 150 mg Tamsulosin HCl (Flomax -) 0.4 mg PO [facility] Last Admin: 04/07/18 21:26 Dose: 0.4 mg - Objective Vital Signs: Vital Signs Temperature 98.9 F 04/08/18 05:00 Pulse Rate 58 L 04/08/18 05:00 Respiratory Rate 18 04/08/18 05:00 Blood Pressure 127/50 04/08/18 05:00 O2 Sat by Pulse Oximetry (%) 96 04/07/18 21:00 Constitutional: Yes: No Distress, Calm Extremities: Yes: Cool, Delayed Capillary Refill, Pallor Edema: No Peripheral Pulses WNL: No Peripheral Pulses: Left Doralis Pedis: 0, Right Dorsalis Pedis: 0 Integumentary: Yes: Other (Decubiti ulceration with dry necrotic eschar posterior plantar left heel. Size unchanged. No edema, erythema, calor, nor malodor. Decubiti ulceration with necrotic eschar posterior plantar right heel with malodor. Decreased tenderness on palpation. No evidence of fluctuance. Very mild surrounding erythema. Size unchanged. Necrosis extends to fat and subcutaneous tissue.) Labs: CBC, BMP 04/05/18 15:00 04/06/18 22:10 INR, PTT INR 1.20 (0.83-1.09) H 03/28/18 22:22 Problem List - Problems (1) Diabetes Code(s): E11.9 - TYPE 2 DIABETES MELLITUS WITHOUT COMPLICATIONS Qualifiers: 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 type: type 1 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 complication status: with circulatory complication (2) ESRD (end stage renal disease) on dialysis Code(s): N18.6 - END STAGE RENAL DISEASE; Z99.2 - DEPENDENCE ON RENAL DIALYSIS (3) Eschar of heel Code(s): R23.4 - CHANGES IN SKIN TEXTURE (4) Fever Code(s): R50.9 - FEVER, UNSPECIFIED (5) Infected pressure ulcer Code(s): L89.90 - PRESSURE ULCER OF UNSPECIFIED SITE, UNSPECIFIED STAGE; L08.9 - LOCAL INFECTION OF THE SKIN AND SUBCUTANEOUS TISSUE, UNSP Assessment Plan - Diagnosis (1) Diabetes Status: Acute Qualifiers: 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 type: type 1 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 complication status: with circulatory complication (2) ESRD (end stage renal disease) on dialysis Status: Acute (3) Eschar of heel Status: Acute (4) Fever Status: Acute (5) Infected pressure ulcer Status: Acute - Plan Plan: Aseptic scrub bilateral heel. Collagenase Santyl dressing applied right heel with gauze dressing. Consent for debridement of right heel. Aseptic debridement of right heel with 15 blade to fat and subcutaneous tissue. Necrotic eschar removed. Aseptic scrub. Collagenase Santyl dressing applied. Wound vacuum reapplied right heel. Vacuum seal intact. Gauze dressing applied. Continue IVAB for cellulitis. Continue local wound care. Continue wound vacuum right heel. Will follow in 4 days.
[2018-04-08] MEDS: COLLAGENASE CLOSTRIDIUM HIST. 30 GRAMS TUBE TP SCH (10:00)
[2018-04-08] MEDS ORDERED: PT OWN MED DRAWER 7, Y5N ONE (10:02)
[2018-04-08] MEDS: VITAMIN B COMPLEX W/C COMBO TABLET (FP) PO SCH (10:04)
[2018-04-08] MEDS: CARVEDILOL 12.5 MG TABLET (FP) PO SCH ×2 (10:04→21:41)
[2018-04-08] MEDS: CITALOPRAM HYDROBROMIDE 20 MG TABLET (FP) PO SCH (10:04)
[2018-04-08] MEDS: DIVALPROEX SODIUM 125 MG TABLET E.C. PO SCH ×2 (10:04→21:40)
[2018-04-08] MEDS: ASPIRIN COATED 81 MG TABLET.EC PO SCH (10:04)
[2018-04-08] MEDS: CLOPIDOGREL BISULFATE 75 MG TABLET (FP) PO SCH (10:04)
[2018-04-08] MEDS: FOLIC ACID 1 MG TABLET (FP) PO SCH (10:04)
[2018-04-08] MEDS: HEPARIN NA (PORCINE) 5,000 UNITS/ML 1ML VIAL SQ SCH ×2 (10:04→21:42)
[2018-04-08] MEDS: RANITIDINE HCL 150 MG TABLET (FP) PO SCH (10:04)
[2018-04-08] MEDS: CALCIUM ACETATE 667 MG CAPSULE (FP) PO SCH ×3 (10:04→18:34)
--- NOTE | 2018-04-08 10:56 | PN ---
Progress Note (short form) - Note Progress Note: Patient seen and examined comfortable No new issues All follow-ups noted--Podiatry and neurology Afebrile Vital Signs Temp 98.9 F 04/08/18 05:00 Pulse 58 L 04/08/18 05:00 Resp 18 04/08/18 05:00 BP 127/50 04/08/18 05:00 Pulse Ox 96 04/07/18 21:00 Intake & Output 04/07/18 04/07/18 04/08/18 11:59 23:59 11:59 Intake Total 50 450 200 Balance 50 450 200 Weight 152 lb 12.8 oz 157 lb Intake: IVPB 50 100 Oral 450 100 Other: Voiding Method Diaper Diaper Diaper # Unmeasured Voids Void 2 1 Bowel Movement No Yes Yes Weight Measurement Method Patient Lift Scale Patient Lift Scale Active Medications Acetaminophen (Tylenol -) 650 mg PO Q6H PRN PRN Reason: PAIN LEVEL 1-5 Last Admin: 04/06/18 22:21 Dose: 650 mg Artificial Tears (Artificial Tears) 1 drop OU Q12H PRN PRN Reason: DRY EYES Aspirin (Ecotrin -) 81 mg PO DAILY [facility] Last Admin: 04/08/18 10:04 Dose: 81 mg Atorvastatin Calcium (Lipitor -) 40 mg PO HS [facility] Last Admin: 04/07/18 21:25 Dose: 40 mg Calcium Acetate (Phoslo -) 667 mg PO TIDCM [facility] Last Admin: 04/08/18 10:04 Dose: 667 mg Carvedilol (Coreg -) 12.5 mg PO BID [facility] Last Admin: 04/08/18 10:04 Dose: 12.5 mg Citalopram Hydrobromide (Celexa -) 20 mg PO DAILY [facility] Last Admin: 04/08/18 10:04 Dose: 20 mg Clopidogrel Bisulfate (Plavix -) 75 mg PO DAILY [facility] Last Admin: 04/08/18 10:04 Dose: 75 mg Collagenase (Santyl -) 1 applic TP DAILY [facility]; Protocol Last Admin: 04/07/18 10:13 Dose: 1 applic Divalproex Sodium (Depakote -) 125 mg PO BID [facility] Last Admin: 04/08/18 10:04 Dose: 125 mg Docusate Sodium (Colace -) 300 mg PO [facility] Last Admin: 04/07/18 21:26 Dose: 300 mg Epoetin Jose Francisco (Procrit -) 10,000 unit IVPUSH ONCE ONE Stop: 04/08/18 14:58 Folic Acid (Folic Acid -) 1 mg PO DAILY [facility] Last Admin: 04/08/18 10:04 Dose: 1 mg Gabapentin (Neurontin -) 100 mg PO TID [facility] Last Admin: 04/08/18 06:05 Dose: 100 mg Haloperidol (Haldol -) 2 mg PO [facility] Last Admin: 04/07/18 21:27 Dose: 2 mg Heparin Sodium (Porcine) (Heparin -) 5,000 unit SQ BID [facility] Last Admin: 04/08/18 10:04 Dose: 5,000 unit Piperacillin Sod/Tazobactam (Sod 2.25 gm/ Dextrose) 100 mls @ 100 mls/hr IVPB Q8H-IV [facility]; Protocol Last Admin: 04/08/18 10:05 Dose: 100 mls/hr Sodium Chloride (Normal Saline -) 250 mls @ 3,000 mls/hr IV PRN PRN PRN Reason: Hypotension during Dialysis Stop: 04/08/18 14:57 Insulin Aspart (Novolog Vial Sliding Scale -) 1 vial SQ [facility]; Protocol Last Admin: 04/08/18 06:10 Dose: 2 units Insulin Detemir (Levemir Vial) 15 units SQ [facility] Mirtazapine (Remeron -) 15 mg PO [facility] Last Admin: 04/07/18 21:27 Dose: 15 mg Multi-Ingredient Ointment (Zinc Oxide 20% Topical Oint) 1 gm TP DAILY [facility] Last Admin: 04/07/18 10:13 Dose: 1 applic Multivitamins (Total B With C -) 1 each PO DAILY [facility] Last Admin: 04/08/18 10:04 Dose: 1 each Ranitidine HCl (Zantac -) 150 mg PO DAILY [facility] Last Admin: 04/08/18 10:04 Dose: 150 mg Tamsulosin HCl (Flomax -) 0.4 mg PO [facility] Last Admin: 04/07/18 21:26 Dose: 0.4 mg CBC, BMP 04/05/18 15:00 04/06/18 22:10 Microbiology 04/02/18 19:00 Blood Culture - Final Blood - Peripheral Venous NO GROWTH AFTER 5 DAYS INCUBATION 04/02/18 19:00 Blood Culture - Final Blood - Peripheral Venous NO GROWTH AFTER 5 DAYS INCUBATION Physical exam. Constitutional: Yes: No Distress, Comfortable. Neck: Yes: Supple. no jvd Cardiovascular: Yes: Regular Rate and Rhythm Respiratory: Yes: Diminished Gastrointestinal: Yes: Soft/ non tender Edema: No Wound/Incision: Yes: Bilateral heel ulcers -- dressing +--detailed podiatry-- note reviewed Neurological: Yes: Alert Psychiatric: Yes: Alert Labs: Assessment/Plan clinically stable Continue present care abx bone scan-ve Arterial doppler-- Atherosclertic disease monitor bgm- elevated--- increase Levemir dialysis per renal daily oob - chair vascular to follow Will follow Problem List - Problems (1) Diabetes Code(s): E11.9 - TYPE 2 DIABETES MELLITUS WITHOUT COMPLICATIONS Qualifiers: 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 type: type 1 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 complication status: with circulatory complication (2) ESRD (end stage renal disease) on dialysis Code(s): N18.6 - END STAGE RENAL DISEASE; Z99.2 - DEPENDENCE ON RENAL DIALYSIS (3) Infected pressure ulcer Code(s): L89.90 - PRESSURE ULCER OF UNSPECIFIED SITE, UNSPECIFIED STAGE; L08.9 - LOCAL INFECTION OF THE SKIN AND SUBCUTANEOUS TISSUE, UNSP (4) Syncope Code(s): R55 - SYNCOPE AND COLLAPSE (5) Acute metabolic encephalopathy due to hypoglycemia Code(s): G93.41 - METABOLIC ENCEPHALOPATHY; E16.2 - HYPOGLYCEMIA, UNSPECIFIED (6) Anemia Code(s): D64.9 - ANEMIA, UNSPECIFIED (7) CAD (coronary artery disease) Code(s): I25.10 - ATHSCL HEART DISEASE OF [place] CORONARY ARTERY W/O ANG PCTRS (8) ESRD (end stage renal disease) on dialysis Code(s): N18.6 - END STAGE RENAL DISEASE; Z99.2 - DEPENDENCE ON RENAL DIALYSIS
--- NOTE | 2018-04-08 12:59 | PN ---
Progress Note, Physician History of Present Illness: Pt seen and examined at bedside. He is awake and alert. He denies shortness of breath. - Current Medication List Current Medications: Active Medications Acetaminophen (Tylenol -) 650 mg PO Q6H PRN PRN Reason: PAIN LEVEL 1-5 Last Admin: 04/06/18 22:21 Dose: 650 mg Artificial Tears (Artificial Tears) 1 drop OU Q12H PRN PRN Reason: DRY EYES Aspirin (Ecotrin -) 81 mg PO DAILY [facility] Last Admin: 04/08/18 10:04 Dose: 81 mg Atorvastatin Calcium (Lipitor -) 40 mg PO HS [facility] Last Admin: 04/07/18 21:25 Dose: 40 mg Calcium Acetate (Phoslo -) 667 mg PO TIDCM [facility] Last Admin: 04/08/18 12:36 Dose: 667 mg Carvedilol (Coreg -) 12.5 mg PO BID [facility] Last Admin: 04/08/18 10:04 Dose: 12.5 mg Citalopram Hydrobromide (Celexa -) 20 mg PO DAILY [facility] Last Admin: 04/08/18 10:04 Dose: 20 mg Clopidogrel Bisulfate (Plavix -) 75 mg PO DAILY [facility] Last Admin: 04/08/18 10:04 Dose: 75 mg Collagenase (Santyl -) 1 applic TP DAILY [facility]; Protocol Last Admin: 04/07/18 10:13 Dose: 1 applic Divalproex Sodium (Depakote -) 125 mg PO BID [facility] Last Admin: 04/08/18 10:04 Dose: 125 mg Docusate Sodium (Colace -) 300 mg PO HS [facility] Last Admin: 04/07/18 21:26 Dose: 300 mg Epoetin Jose Francisco (Procrit -) 10,000 unit IVPUSH ONCE ONE Stop: 04/08/18 14:58 Folic Acid (Folic Acid -) 1 mg PO DAILY [facility] Last Admin: 04/08/18 10:04 Dose: 1 mg Gabapentin (Neurontin -) 100 mg PO TID [facility] Last Admin: 04/08/18 06:05 Dose: 100 mg Haloperidol (Haldol -) 2 mg PO HS [facility] Last Admin: 04/07/18 21:27 Dose: 2 mg Heparin Sodium (Porcine) (Heparin -) 5,000 unit SQ BID [facility] Last Admin: 04/08/18 10:04 Dose: 5,000 unit Piperacillin Sod/Tazobactam (Sod 2.25 gm/ Dextrose) 100 mls @ 100 mls/hr IVPB Q8H-IV [facility]; Protocol Last Admin: 04/08/18 10:05 Dose: 100 mls/hr Sodium Chloride (Normal Saline -) 250 mls @ 3,000 mls/hr IV PRN PRN PRN Reason: Hypotension during Dialysis Stop: 04/08/18 14:57 Insulin Aspart (Novolog Vial Sliding Scale -) 1 vial SQ [facility]; Protocol Last Admin: 04/08/18 12:36 Dose: 2 units Insulin Detemir (Levemir Vial) 15 units SQ [facility] Mirtazapine (Remeron -) 15 mg PO HS [facility] Last Admin: 04/07/18 21:27 Dose: 15 mg Multi-Ingredient Ointment (Zinc Oxide 20% Topical Oint) 1 gm TP DAILY [facility] Last Admin: 04/07/18 10:13 Dose: 1 applic Multivitamins (Total B With C -) 1 each PO DAILY [facility] Last Admin: 04/08/18 10:04 Dose: 1 each Ranitidine HCl (Zantac -) 150 mg PO DAILY [facility] Last Admin: 04/08/18 10:04 Dose: 150 mg Tamsulosin HCl (Flomax -) 0.4 mg PO [facility] Last Admin: 04/07/18 21:26 Dose: 0.4 mg - Objective Vital Signs: Vital Signs Temperature 98.9 F 04/08/18 05:00 Pulse Rate 58 L 04/08/18 05:00 Respiratory Rate 18 04/08/18 05:00 Blood Pressure 127/50 04/08/18 05:00 O2 Sat by Pulse Oximetry (%) 96 04/07/18 21:00 Constitutional: Yes: Calm Eyes: Yes: Conjunctiva Clear HENT: Yes: Atraumatic Cardiovascular: Yes: S1, S2 Respiratory: Yes: On Nasal O2 Gastrointestinal: Yes: Soft Genitourinary: Yes: WNL Edema: No Wound/Incision: Yes: Dressing Dry and Intact Neurological: Yes: Oriented Labs: CBC, BMP 04/05/18 15:00 04/06/18 22:10 INR, PTT INR 1.20 (0.83-1.09) H 03/28/18 22:22 Problem List - Problems (1) Diabetes Code(s): E11.9 - TYPE 2 DIABETES MELLITUS WITHOUT COMPLICATIONS Qualifiers: 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 type: type 1 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 complication status: with circulatory complication (2) ESRD (end stage renal disease) on dialysis Code(s): N18.6 - END STAGE RENAL DISEASE; Z99.2 - DEPENDENCE ON RENAL DIALYSIS (3) Syncope Code(s): R55 - SYNCOPE AND COLLAPSE (4) Anemia Code(s): D64.9 - ANEMIA, UNSPECIFIED Assessment/Plan Current Medications Generic Name Dose Route Start Last Admin Trade Name Freq PRN Reason Stop Dose Admin Acetaminophen 650 mg 04/02/18 15:12 04/06/18 22:21 Tylenol - PO 650 mg Q6H PRN Administration PAIN LEVEL 1-5 Artificial Tears 1 drop 04/02/18 15:12 Artificial Tears OU Q12H PRN DRY EYES Aspirin 81 mg 04/03/18 10:00 04/08/18 10:04 Ecotrin - PO 81 mg DAILY ROSIE Administration Atorvastatin Calcium 40 mg 04/02/18 22:00 04/07/18 21:25 Lipitor - PO 40 mg HS ROSIE Administration Calcium Acetate 667 mg 04/02/18 17:30 04/08/18 12:36 Phoslo - PO 667 mg TIDCM ROSIE Administration Carvedilol 12.5 mg 04/02/18 22:00 04/08/18 10:04 Coreg - PO 12.5 mg BID ROSIE Administration Citalopram Hydrobromide 20 mg 04/03/18 10:00 04/08/18 10:04 Celexa - PO 20 mg DAILY ROSIE Administration Clopidogrel Bisulfate 75 mg 04/03/18 10:00 04/08/18 10:04 Plavix - PO 75 mg DAILY ROSIE Administration Collagenase 1 applic 04/03/18 10:00 04/07/18 10:13 Santyl - TP 1 applic DAILY ROSIE Administration Protocol Divalproex Sodium 125 mg 04/02/18 22:00 04/08/18 10:04 Depakote - PO 125 mg BID ROSIE Administration Docusate Sodium 300 mg 04/02/18 22:00 04/07/18 21:26 Colace - PO 300 mg HS ROSIE Administration Epoetin Jose Francisco 10,000 unit 04/08/18 14:57 Procrit - IVPUSH 04/08/18 14:58 ONCE ONE Folic Acid 1 mg 04/03/18 10:00 04/08/18 10:04 Folic Acid - PO 1 mg DAILY ROSIE Administration Gabapentin 100 mg 04/02/18 22:00 04/08/18 06:05 Neurontin - PO 100 mg TID ROSIE Administration Haloperidol 2 mg 04/02/18 22:00 04/07/18 21:27 Haldol - PO 2 mg HS ROSIE Administration Heparin Sodium (Porcine) 5,000 unit 04/02/18 22:00 04/08/18 10:04 Heparin - SQ 5,000 unit BID ROSIE Administration Piperacillin Sod/Tazobactam 100 mls @ 100 mls/hr 04/05/18 02:00 04/08/18 10: 05 Sod 2.25 gm/ Dextrose IVPB 100 mls/hr Q8H-IV ROSIE Administration Protocol Sodium Chloride 250 mls @ 3,000 mls/hr 04/07/18 14:57 Normal Saline - IV 04/08/18 14:57 PRN PRN Hypotension during Dialysis Insulin Aspart 1 vial 04/02/18 16:30 04/08/18 12:36 Novolog Vial Sliding Scale - SQ 2 units ACHS ROSIE Administration Protocol Insulin Detemir 15 units 04/08/18 10:54 Levemir Vial SQ HS ROSIE Mirtazapine 15 mg 04/02/18 22:00 04/07/18 21:27 Remeron - PO 15 mg HS ROSIE Administration Multi-Ingredient Ointment 1 gm 04/03/18 10:00 04/07/18 10:13 Zinc Oxide 20% Topical Oint TP 1 applic DAILY [facility]IE Administration Multivitamins 1 each 04/03/18 10:00 04/08/18 10:04 Total B With C - PO 1 each DAILY [facility]IE Administration Ranitidine HCl 150 mg 04/03/18 10:00 04/08/18 10:04 Zantac - PO 150 mg DAILY [facility]IE Administration Tamsulosin HCl 0.4 mg 04/02/18 22:00 04/07/18 21:26 Flomax - PO 0.4 mg HS ROSIE Administration Impression 1. ESRD 2. anemia 3. HTN 4. Chol 5. DM 6. BPH 7. CAD 8. hypoglycemia 9. CHF 10. syncope 11. depression Plan - HD today - podiatry input appreciated - cont wound care - cont epogen - will follow Dr Donovan
[2018-04-08] MEDS ORDERED: EPOETIN ALFA 10,000 UNIT/1 ML VIAL IVPUSH ONE (14:15)
--- NOTE | 2018-04-08 14:15 | PN ---
Progress Note (short form) - Note Progress Note: Thanking for consult, i was asked to evaluate for possible stroke. He is 72 year old male with multiple comorbidites including DM,HTN,CHF,ESRD ON HD . He came from [place] for fall. He has episode of confusion. His brought to attention that his left sided is weaker. He is able to eat and there has not been any visual changes, aphasia or headhace or seizure like activity. There is no fever. He did have ct head today and it was unremarkable compare to previosu one SUBJECTIVE: spoke to nursing and patient is sleepy but no temors, and mri did not show any acute stroke Neurological Examination Alert orientedx 2, speech is dysarthric ( not clear if new ) no face asymmetry, Vf normal by confrotation, pupils reactive left upper and lower extremity grade 4 plus sensation is normal there is no cogwheel rigidty or bradykinesia or resting tremors were not seen ct unchanged mri of brain no acute stroke tsh i s.23 Assessment-1. No acute stroke identified, 2. essential tremors , unlikley to be parkinson disease and seizure, tremors seems to be essential tremors. Not causing any difficulty functioning and would hold medication. Plan I would see him prn basis Thanking you so much Jose Angel Blankenship MD
[2018-04-08 14:56] LABS: HEMATOCRIT 24.1 % (35.4-49); HEMOGLOBIN 8.1 GM/dL (11.7-16.9); MCH 32.3 pg (25.7-33.7); MCHC 33.6 g/dl (32.0-35.9); MEAN CELL VOLUME 96.4 fl (80-96); MEAN PLT VOLUME 6.8 fl (7.5-11.1); PLATELET COUNT 386 K/MM3 (134-434); RDW 15.9 % (11.9-15.9); WHITE BLOOD COUNT 13.3 K/mm3 (4.0-10.0)
[2018-04-08 15:23] LABS: ANION GAP 16 MMOL/L (8-16); BLOOD UREA NITROGEN 95 mg/dL (7-18); CHLORIDE 100 mmol/L (98-107); CO2 25 mmol/L (21-32); GLUCOSE,RANDOM 205 mg/dL (74-106); POTASSIUM 4.5 mmol/L (3.5-5.1); SODIUM 141 mmol/L (136-145)
[2018-04-08 15:27] LABS: CREATININE 8.5 mg/dL (0.7-1.3)
[2018-04-08] MEDS: ZINC OXIDE 20% TOPICAL OINTMENT 454 GM JAR TP SCH (18:58)
[2018-04-08] MEDS ORDERED: INSULIN (NOVOLOG) ASPART 100 UNITS/ML 10ML VIAL ONE (20:31)
[2018-04-08] MEDS: ATORVASTATIN CA 40 MG TABLET (FP) PO SCH (21:40)
[2018-04-08] MEDS: TAMSULOSIN HCL 0.4 MG CAP.ER.24H (FP) PO SCH (21:40)
[2018-04-08] MEDS: HALOPERIDOL 1 MG TABLET (FP) PO SCH (21:41)
[2018-04-08] MEDS: MIRTAZAPINE 15 MG TABLET (FP) PO SCH (21:41)
[2018-04-08] MEDS: DOCUSATE SODIUM 100 MG CAPSULE (FP) PO SCH (21:43)
[2018-04-08] MEDS: INSULIN (LEVEMIR) 100 UNITS/ML UNITS SQ SCH (21:44)
[2018-04-09] MEDS ORDERED: DEXTROSE 5%-WATER 100 ML IVPB ONE ×3 (01:21→17:36)
[2018-04-09] MEDS ORDERED: PIPERACILLIN/TAZOBACTAM 2.25 GM VIAL IVPB ONE ×3 (01:21→17:35)
[2018-04-09] MEDS: PIPERACILLIN/TAZOB 2.25 GM 2.25 GM in DEXTROSE 5%-WATER 100 ML IVPB SCH ×3 (02:03→17:36)
[2018-04-09] MEDS: GABAPENTIN 100 MG CAPSULE (FP) PO SCH ×3 (05:54→21:25)
[2018-04-09] MEDS: INSULIN SLIDING SCALE (NOVOLOG) 1 VIAL SQ SCH ×5 (06:05→21:45)
[2018-04-09] MEDS: CALCIUM ACETATE 667 MG CAPSULE (FP) PO SCH ×3 (10:11→17:36)
[2018-04-09] MEDS ORDERED: PT OWN MED DRAWER 7, Y5N ONE ×2 (11:12→20:14)
[2018-04-09] MEDS: ASPIRIN COATED 81 MG TABLET.EC PO SCH (11:18)
[2018-04-09] MEDS: CITALOPRAM HYDROBROMIDE 20 MG TABLET (FP) PO SCH (11:18)
[2018-04-09] MEDS: FOLIC ACID 1 MG TABLET (FP) PO SCH (11:18)
[2018-04-09] MEDS: HEPARIN NA (PORCINE) 5,000 UNITS/ML 1ML VIAL SQ SCH (11:18)
[2018-04-09] MEDS: CARVEDILOL 12.5 MG TABLET (FP) PO SCH ×2 (11:19→21:25)
[2018-04-09] MEDS: CLOPIDOGREL BISULFATE 75 MG TABLET (FP) PO SCH (11:19)
[2018-04-09] MEDS: VITAMIN B COMPLEX W/C COMBO TABLET (FP) PO SCH (11:19)
[2018-04-09] MEDS: COLLAGENASE CLOSTRIDIUM HIST. 30 GRAMS TUBE TP SCH (11:19)
[2018-04-09] MEDS: DIVALPROEX SODIUM 125 MG TABLET E.C. PO SCH ×2 (11:19→21:25)
[2018-04-09] MEDS: ZINC OXIDE 20% TOPICAL OINTMENT 454 GM JAR TP SCH (11:23)
[2018-04-09] MEDS: RANITIDINE HCL 150 MG TABLET (FP) PO SCH (11:27)
--- NOTE | 2018-04-09 11:56 | DS ---
Physical Examination Vital Signs: Vital Signs Temperature 98.3 F 04/09/18 05:00 Pulse Rate 63 04/09/18 05:00 Respiratory Rate 18 04/09/18 05:00 Blood Pressure 131/48 04/09/18 05:00 O2 Sat by Pulse Oximetry (%) 98 04/08/18 21:00 Labs: CBC, BMP 04/08/18 14:30 04/08/18 14:30 Discharge Summary Reason For Visit: SYNCOPE Current Active Problems Diabetes (Acute) ESRD (end stage renal disease) on dialysis (Acute) Eschar of heel (Acute) Fever (Acute) Infected pressure ulcer (Acute) Syncope (Acute) Condition: Stable - Instructions Referrals: Bernardo Del Valle MD [Primary Care Provider] - - Home Medications Comprehensive Discharge Medication List: Ambulatory Orders Carvedilol [Coreg -] 12.5 mg PO BID #60 tablet 12/18/17 Tamsulosin HCl [Flomax -] 0.4 mg PO HS #30 cap.er.24h 12/18/17 Amlodipine Besylate 10 mg PO DAILY 02/17/18 Aspirin [Adult Aspirin] 81 mg PO DAILY 02/17/18 Atorvastatin Ca [Lipitor] 40 mg PO HS 02/17/18 Collagenase Clostridium Hist. [Santyl -] 1 applic TP DAILY 02/17/18 Divalproex [Depakote -] 125 mg PO BID 02/17/18 Docusate Sodium 300 mg PO HS 02/17/18 Folic Acid 1 mg PO DAILY 02/17/18 Haloperidol 2 mg PO HS 02/17/18 Insulin Glargine,Hum.rec.anlog [Lantus Solostar] 10 unit SQ HS 02/17/18 Calcium Acetate [Phoslo -] 667 mg PO TIDCM 03/28/18 Citalopram Hydrobromide [Celexa -] 20 mg PO DAILY 03/28/18 Clopidogrel Bisulfate [Plavix -] 75 mg PO DAILY 03/28/18 Dextran 70/Hypromellose/Pf [Artificial Tears Drops] 1 each OU BID PRN 03/28/18 Famotidine 20 mg PO DAILY 03/28/18 Gabapentin [Neurontin -] 100 mg PO Q8H 03/28/18 Insulin Lispro [Humalog] unit SQ BID 03/28/18 LORazepam [Ativan] 0.5 mg PO ASDIR 03/28/18 Mirtazapine [Remeron -] 15 mg PO HS 03/28/18 Vitamin B Complex [Balance B-50] 1 each PO DAILY 03/28/18 Zinc Oxide 20% Topical Oint 454 gm NR ASDIR 03/28/18
--- NOTE | 2018-04-09 13:00 | PN ---
Progress Note (short form) - Note Progress Note: - Note Progress Note: Patient seen and examined comfortable No new issues spoke with podiatry Vital Signs - 24 hr 04/08/18 04/08/18 04/08/18 19:25 21:00 21:30 Temperature 97.8 F 98.4 F Pulse Rate 64 69 Respiratory 18 18 18 Rate Blood Pressure 127/55 142/44 O2 Sat by Pulse 98 Oximetry (%) 04/09/18 04/09/18 04/09/18 01:00 05:00 14:20 Temperature 97.9 F 98.3 F 98.4 F Pulse Rate 63 63 63 Respiratory 18 18 18 Rate Blood Pressure 135/48 131/48 122/65 O2 Sat by Pulse Oximetry (%) 04/09/18 17:09 Temperature 98.3 F Pulse Rate 62 Respiratory 18 Rate Blood Pressure 134/50 O2 Sat by Pulse Oximetry (%) Current Medications Generic Name Dose Route Start Last Admin Trade Name Freq PRN Reason Stop Dose Admin Acetaminophen 650 mg 04/02/18 15:12 04/06/18 22:21 Tylenol - PO 650 mg Q6H PRN Administration PAIN LEVEL 1-5 Artificial Tears 1 drop 04/02/18 15:12 Artificial Tears OU Q12H PRN DRY EYES Aspirin 81 mg 04/03/18 10:00 04/09/18 11:18 Ecotrin - PO 81 mg DAILY ROSIE Administration Atorvastatin Calcium 40 mg 04/02/18 22:00 04/08/18 21:40 Lipitor - PO 40 mg HS ROSIE Administration Calcium Acetate 667 mg 04/02/18 17:30 04/09/18 17:36 Phoslo - PO 667 mg TIDCM ROSIE Administration Carvedilol 12.5 mg 04/02/18 22:00 04/09/18 11:19 Coreg - PO 12.5 mg BID ROSIE Administration Citalopram Hydrobromide 20 mg 04/03/18 10:00 04/09/18 11:18 Celexa - PO 20 mg DAILY ROSIE Administration Clopidogrel Bisulfate 75 mg 04/03/18 10:00 04/09/18 11:19 Plavix - PO 75 mg DAILY ROSIE Administration Collagenase 1 applic 04/03/18 10:00 04/09/18 11:19 Santyl - TP 1 applic DAILY ROSIE Administration Protocol Divalproex Sodium 125 mg 04/02/18 22:00 04/09/18 11:19 Depakote - PO 125 mg BID ROSIE Administration Docusate Sodium 300 mg 04/02/18 22:00 04/08/18 21:43 Colace - PO Not Given HS ROSIE Epoetin Jose Francisco 12,000 unit 04/10/18 15:57 Epogen - IVPUSH 04/10/18 15:58 ONCE ONE Folic Acid 1 mg 04/03/18 10:00 04/09/18 11:18 Folic Acid - PO 1 mg DAILY [facility]IE Administration Gabapentin 100 mg 04/02/18 22:00 04/09/18 15:55 Neurontin - PO 100 mg TID ROSIE Administration Haloperidol 2 mg 04/02/18 22:00 04/08/18 21:41 Haldol - PO 2 mg HS ROSIE Administration Heparin Sodium (Porcine) 5,000 unit 04/02/18 22:00 04/09/18 11:18 Heparin - SQ 5,000 unit BID ROSIE Administration Piperacillin Sod/Tazobactam 100 mls @ 100 mls/hr 04/05/18 02:00 04/09/18 17: 36 Sod 2.25 gm/ Dextrose IVPB 100 mls/hr Q8H-IV ROSIE Administration Protocol Sodium Chloride 250 mls @ 3,000 mls/hr 04/09/18 15:57 Normal Saline - IV 04/10/18 15:57 PRN PRN Hypotension during Dialysis Insulin Aspart 1 vial 04/02/18 16:30 04/09/18 17:34 Novolog Vial Sliding Scale - SQ 8 units ACHS ROSIE Administration Protocol Insulin Detemir 15 units 04/08/18 10:54 04/08/18 21:44 Levemir Vial SQ 15 units HS ROSIE Administration Mirtazapine 15 mg 04/02/18 22:00 04/08/18 21:41 Remeron - PO 15 mg HS ROSIE Administration Multi-Ingredient Ointment 1 gm 04/03/18 10:00 04/09/18 11:23 Zinc Oxide 20% Topical Oint TP 1 applic DAILY [facility]IE Administration Multivitamins 1 each 04/03/18 10:00 04/09/18 11:19 Total B With C - PO 1 each DAILY [facility]IE Administration Ranitidine HCl 150 mg 04/03/18 10:00 04/09/18 11:27 Zantac - PO 150 mg DAILY [facility]IE Administration Tamsulosin HCl 0.4 mg 04/02/18 22:00 04/08/18 21:40 Flomax - PO 0.4 mg HS ROSIE Administration Laboratory Results - last 24 hr 04/08/18 04/08/18 04/09/18 18:35 21:24 05:48 POC Glucometer 168 350 145 04/09/18 12:26 POC Glucometer 223 exam- Constitutional: Yes: No Distress, Comfortable. Neck: Yes: Supple. 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 to continue iv antibiotics - still has drainage from right heel wound Arterial doppler-- Atherosclertic disease monitor bgm- elevated--- increase Levemir dialysis per renal daily oob - chair Problem List - Problems (1) Diabetes Code(s): E11.9 - TYPE 2 DIABETES MELLITUS WITHOUT COMPLICATIONS Qualifiers: 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 type: type 1 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 complication status: with circulatory complication (2) ESRD (end stage renal disease) on dialysis Code(s): N18.6 - END STAGE RENAL DISEASE; Z99.2 - DEPENDENCE ON RENAL DIALYSIS (3) Infected pressure ulcer Code(s): L89.90 - PRESSURE ULCER OF UNSPECIFIED SITE, UNSPECIFIED STAGE; L08.9 - LOCAL INFECTION OF THE SKIN AND SUBCUTANEOUS TISSUE, UNSP (4) Syncope Code(s): R55 - SYNCOPE AND COLLAPSE (5) Acute metabolic encephalopathy due to hypoglycemia Code(s): G93.41 - METABOLIC ENCEPHALOPATHY; E16.2 - HYPOGLYCEMIA, UNSPECIFIED (6) Anemia Code(s): D64.9 - ANEMIA, UNSPECIFIED (7) CAD (coronary artery disease) Code(s): I25.10 - ATHSCL HEART DISEASE OF [place] CORONARY ARTERY W/O ANG PCTRS (8) ESRD (end stage renal disease) on dialysis Code(s): N18.6 - END STAGE RENAL DISEASE; Z99.2 - DEPENDENCE ON RENAL DIALYSIS
--- NOTE | 2018-04-09 15:56 | PN ---
Progress Note, Physician History of Present Illness: Pt seen and examined at bedside. He is awake and appears comfortable. - Current Medication List Current Medications: Active Medications Acetaminophen (Tylenol -) 650 mg PO Q6H PRN PRN Reason: PAIN LEVEL 1-5 Last Admin: 04/06/18 22:21 Dose: 650 mg Artificial Tears (Artificial Tears) 1 drop OU Q12H PRN PRN Reason: DRY EYES Aspirin (Ecotrin -) 81 mg PO DAILY [facility] Last Admin: 04/09/18 11:18 Dose: 81 mg Atorvastatin Calcium (Lipitor -) 40 mg PO HS [facility] Last Admin: 04/08/18 21:40 Dose: 40 mg Calcium Acetate (Phoslo -) 667 mg PO TIDCM [facility] Last Admin: 04/09/18 11:18 Dose: 667 mg Carvedilol (Coreg -) 12.5 mg PO BID [facility] Last Admin: 04/09/18 11:19 Dose: 12.5 mg Citalopram Hydrobromide (Celexa -) 20 mg PO DAILY [facility] Last Admin: 04/09/18 11:18 Dose: 20 mg Clopidogrel Bisulfate (Plavix -) 75 mg PO DAILY [facility] Last Admin: 04/09/18 11:19 Dose: 75 mg Collagenase (Santyl -) 1 applic TP DAILY [facility]; Protocol Last Admin: 04/09/18 11:19 Dose: 1 applic Divalproex Sodium (Depakote -) 125 mg PO BID [facility] Last Admin: 04/09/18 11:19 Dose: 125 mg Docusate Sodium (Colace -) 300 mg PO HS [facility] Last Admin: 04/08/18 21:43 Dose: Not Given Folic Acid (Folic Acid -) 1 mg PO DAILY [facility] Last Admin: 04/09/18 11:18 Dose: 1 mg Gabapentin (Neurontin -) 100 mg PO TID [facility] Last Admin: 04/09/18 05:54 Dose: 100 mg Haloperidol (Haldol -) 2 mg PO HS [facility] Last Admin: 04/08/18 21:41 Dose: 2 mg Heparin Sodium (Porcine) (Heparin -) 5,000 unit SQ BID [facility] Last Admin: 04/09/18 11:18 Dose: 5,000 unit Piperacillin Sod/Tazobactam (Sod 2.25 gm/ Dextrose) 100 mls @ 100 mls/hr IVPB Q8H-IV [facility]; Protocol Last Admin: 04/09/18 11:18 Dose: 100 mls/hr Insulin Aspart (Novolog Vial Sliding Scale -) 1 vial SQ [facility]; Protocol Last Admin: 04/09/18 12:58 Dose: 2 units Insulin Detemir (Levemir Vial) 15 units SQ [facility] Last Admin: 04/08/18 21:44 Dose: 15 units Mirtazapine (Remeron -) 15 mg PO [facility] Last Admin: 04/08/18 21:41 Dose: 15 mg Multi-Ingredient Ointment (Zinc Oxide 20% Topical Oint) 1 gm TP DAILY [facility] Last Admin: 04/09/18 11:23 Dose: 1 applic Multivitamins (Total B With C -) 1 each PO DAILY [facility] Last Admin: 04/09/18 11:19 Dose: 1 each Ranitidine HCl (Zantac -) 150 mg PO DAILY [facility] Last Admin: 04/09/18 11:27 Dose: 150 mg Tamsulosin HCl (Flomax -) 0.4 mg PO [facility] Last Admin: 04/08/18 21:40 Dose: 0.4 mg - Objective Vital Signs: Vital Signs Temperature 98.4 F 04/09/18 14:20 Pulse Rate 63 04/09/18 14:20 Respiratory Rate 18 04/09/18 14:20 Blood Pressure 122/65 04/09/18 14:20 O2 Sat by Pulse Oximetry (%) 98 04/08/18 21:00 Constitutional: Yes: Calm Eyes: Yes: Conjunctiva Clear Cardiovascular: Yes: S1, S2 Respiratory: Yes: CTA Bilaterally Gastrointestinal: Yes: Normal Bowel Sounds, Soft Genitourinary: Yes: WNL Extremities: Yes: WNL Edema: No Wound/Incision: Yes: Other (wound vac) Neurological: Yes: Oriented Psychiatric: Yes: Oriented Labs: CBC, BMP 04/08/18 14:30 04/08/18 14:30 INR, PTT INR 1.20 (0.83-1.09) H 03/28/18 22:22 Problem List - Problems (1) Diabetes Code(s): E11.9 - TYPE 2 DIABETES MELLITUS WITHOUT COMPLICATIONS Qualifiers: 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 type: type 1 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 complication status: with circulatory complication (2) ESRD (end stage renal disease) on dialysis Code(s): N18.6 - END STAGE RENAL DISEASE; Z99.2 - DEPENDENCE ON RENAL DIALYSIS (3) Syncope Code(s): R55 - SYNCOPE AND COLLAPSE (4) Anemia Code(s): D64.9 - ANEMIA, UNSPECIFIED Assessment/Plan Current Medications Generic Name Dose Route Start Last Admin Trade Name Freq PRN Reason Stop Dose Admin Acetaminophen 650 mg 04/02/18 15:12 04/06/18 22:21 Tylenol - PO 650 mg Q6H PRN Administration PAIN LEVEL 1-5 Artificial Tears 1 drop 04/02/18 15:12 Artificial Tears OU Q12H PRN DRY EYES Aspirin 81 mg 04/03/18 10:00 04/09/18 11:18 Ecotrin - PO 81 mg DAILY ROSIE Administration Atorvastatin Calcium 40 mg 04/02/18 22:00 04/08/18 21:40 Lipitor - PO 40 mg HS ROSIE Administration Calcium Acetate 667 mg 04/02/18 17:30 04/09/18 11:18 Phoslo - PO 667 mg TIDCM ROSIE Administration Carvedilol 12.5 mg 04/02/18 22:00 04/09/18 11:19 Coreg - PO 12.5 mg BID [facility]IE Administration Citalopram Hydrobromide 20 mg 04/03/18 10:00 04/09/18 11:18 Celexa - PO 20 mg DAILY ROSIE Administration Clopidogrel Bisulfate 75 mg 04/03/18 10:00 04/09/18 11:19 Plavix - PO 75 mg DAILY ROSIE Administration Collagenase 1 applic 04/03/18 10:00 04/09/18 11:19 Santyl - TP 1 applic DAILY [facility]IE Administration Protocol Divalproex Sodium 125 mg 04/02/18 22:00 04/09/18 11:19 Depakote - PO 125 mg BID ROSIE Administration Docusate Sodium 300 mg 04/02/18 22:00 04/08/18 21:43 Colace - PO Not Given HS ROSIE Folic Acid 1 mg 04/03/18 10:00 04/09/18 11:18 Folic Acid - PO 1 mg DAILY [facility]IE Administration Gabapentin 100 mg 04/02/18 22:00 04/09/18 15:55 Neurontin - PO 100 mg TID ROSIE Administration Haloperidol 2 mg 04/02/18 22:00 04/08/18 21:41 Haldol - PO 2 mg HS ROSIE Administration Heparin Sodium (Porcine) 5,000 unit 04/02/18 22:00 04/09/18 11:18 Heparin - SQ 5,000 unit BID ROSIE Administration Piperacillin Sod/Tazobactam 100 mls @ 100 mls/hr 04/05/18 02:00 04/09/18 11: 18 Sod 2.25 gm/ Dextrose IVPB 100 mls/hr Q8H-IV [facility]IE Administration Protocol Insulin Aspart 1 vial 04/02/18 16:30 04/09/18 12:58 Novolog Vial Sliding Scale - SQ 2 units ACHS ROSIE Administration Protocol Insulin Detemir 15 units 04/08/18 10:54 04/08/18 21:44 Levemir Vial SQ 15 units HS ROSIE Administration Mirtazapine 15 mg 04/02/18 22:00 04/08/18 21:41 Remeron - PO 15 mg HS ROSIE Administration Multi-Ingredient Ointment 1 gm 04/03/18 10:00 04/09/18 11:23 Zinc Oxide 20% Topical Oint TP 1 applic DAILY [facility]IE Administration Multivitamins 1 each 04/03/18 10:00 04/09/18 11:19 Total B With C - PO 1 each DAILY [facility]IE Administration Ranitidine HCl 150 mg 04/03/18 10:00 04/09/18 11:27 Zantac - PO 150 mg DAILY [facility]IE Administration Tamsulosin HCl 0.4 mg 04/02/18 22:00 04/08/18 21:40 Flomax - PO 0.4 mg HS ROSIE Administration Impression 1. ESRD 2. anemia 3. HTN 4. Chol 5. DM 6. BPH 7. CAD 8. hypoglycemia 9. CHF 10. syncope 11. depression Plan - pt tolerated HD yesterday - next HD tomorrow - cont wound care - bp is stable - cont epogen - will follow Dr Donovan
[2018-04-09] MEDS ORDERED: SODIUM CHLORIDE 250 ML IV PRN (15:57)
[2018-04-09] MEDS ORDERED: INSULIN (NOVOLOG) ASPART 100 UNITS/ML 10ML VIAL ONE (20:13)
[2018-04-09] MEDS: TAMSULOSIN HCL 0.4 MG CAP.ER.24H (FP) PO SCH (21:25)
[2018-04-09] MEDS: DOCUSATE SODIUM 100 MG CAPSULE (FP) PO SCH (21:25)
[2018-04-09] MEDS: ATORVASTATIN CA 40 MG TABLET (FP) PO SCH (21:25)
[2018-04-09] MEDS: MIRTAZAPINE 15 MG TABLET (FP) PO SCH (21:25)
[2018-04-09] MEDS: HALOPERIDOL 1 MG TABLET (FP) PO SCH (21:26)
[2018-04-09] MEDS: INSULIN (LEVEMIR) 100 UNITS/ML UNITS SQ SCH (21:26)
[2018-04-09] MEDS ORDERED: HEPARIN NA (PORCINE) 5,000 UNITS/ML 1ML VIAL SQ ONE (22:18)
[2018-04-10] MEDS ORDERED: DEXTROSE 5%-WATER 100 ML IVPB ONE ×2 (01:44→09:06)
[2018-04-10] MEDS ORDERED: PIPERACILLIN/TAZOBACTAM 2.25 GM VIAL IVPB ONE ×2 (01:44→09:06)
[2018-04-10] MEDS: PIPERACILLIN/TAZOB 2.25 GM 2.25 GM in DEXTROSE 5%-WATER 100 ML IVPB SCH ×3 (02:21→18:08)
[2018-04-10] MEDS: INSULIN SLIDING SCALE (NOVOLOG) 1 VIAL SQ SCH ×4 (06:23→21:07)
[2018-04-10] MEDS: GABAPENTIN 100 MG CAPSULE (FP) PO SCH ×3 (06:23→21:08)
[2018-04-10] MEDS: CALCIUM ACETATE 667 MG CAPSULE (FP) PO SCH ×3 (09:25→18:08)
[2018-04-10] MEDS ORDERED: EPOETIN ALFA 10,000 UNIT, EPOETIN ALFA 2,000 UNIT IVPUSH ONE (10:00)
--- NOTE | 2018-04-10 10:52 | PN ---
Progress Note, Physician History of Present Illness: Pt seen and examined at bedside. He is awake and appears comfortable. He denies shortness of breath. - Current Medication List Current Medications: Active Medications Acetaminophen (Tylenol -) 650 mg PO Q6H PRN PRN Reason: PAIN LEVEL 1-5 Last Admin: 04/06/18 22:21 Dose: 650 mg Artificial Tears (Artificial Tears) 1 drop OU Q12H PRN PRN Reason: DRY EYES Aspirin (Ecotrin -) 81 mg PO DAILY [facility] Last Admin: 04/09/18 11:18 Dose: 81 mg Atorvastatin Calcium (Lipitor -) 40 mg PO HS [facility] Last Admin: 04/09/18 21:25 Dose: 40 mg Calcium Acetate (Phoslo -) 667 mg PO TIDCM [facility] Last Admin: 04/10/18 09:25 Dose: 667 mg Carvedilol (Coreg -) 12.5 mg PO BID [facility] Last Admin: 04/09/18 21:25 Dose: 12.5 mg Citalopram Hydrobromide (Celexa -) 20 mg PO DAILY [facility] Last Admin: 04/09/18 11:18 Dose: 20 mg Clopidogrel Bisulfate (Plavix -) 75 mg PO DAILY [facility] Last Admin: 04/09/18 11:19 Dose: 75 mg Collagenase (Santyl -) 1 applic TP DAILY [facility]; Protocol Last Admin: 04/09/18 11:19 Dose: 1 applic Divalproex Sodium (Depakote -) 125 mg PO BID [facility] Last Admin: 04/09/18 21:25 Dose: 125 mg Docusate Sodium (Colace -) 300 mg PO HS [facility] Last Admin: 04/09/18 21:25 Dose: 300 mg Folic Acid (Folic Acid -) 1 mg PO DAILY [facility] Last Admin: 04/09/18 11:18 Dose: 1 mg Gabapentin (Neurontin -) 100 mg PO TID [facility] Last Admin: 04/10/18 06:23 Dose: 100 mg Haloperidol (Haldol -) 2 mg PO HS [facility] Last Admin: 04/09/18 21:26 Dose: 2 mg Heparin Sodium (Porcine) (Heparin -) 5,000 unit SQ ONCE ONE Stop: 04/09/18 22:19 Heparin Sodium (Porcine) (Heparin -) 5,000 unit SQ BID [facility] Piperacillin Sod/Tazobactam (Sod 2.25 gm/ Dextrose) 100 mls @ 100 mls/hr IVPB Q8H-IV ROSIE; Protocol Last Admin: 04/10/18 02:21 Dose: 100 mls/hr Sodium Chloride (Normal Saline -) 250 mls @ 3,000 mls/hr IV PRN PRN PRN Reason: Hypotension during Dialysis Stop: 04/10/18 15:57 Insulin Aspart (Novolog Vial Sliding Scale -) [address] [facility]; Protocol Last Admin: 04/10/18 06:23 Dose: 4 units Insulin Detemir (Levemir Vial) 15 units SQ [facility] Last Admin: 04/09/18 21:26 Dose: 15 units Mirtazapine (Remeron -) 15 mg PO HS [facility] Last Admin: 04/09/18 21:25 Dose: 15 mg Multi-Ingredient Ointment (Zinc Oxide 20% Topical Oint) 1 gm TP DAILY [facility] Last Admin: 04/09/18 11:23 Dose: 1 applic Multivitamins (Total B With C -) 1 each PO DAILY [facility] Last Admin: 04/09/18 11:19 Dose: 1 each Ranitidine HCl (Zantac -) 150 mg PO DAILY [facility] Last Admin: 04/09/18 11:27 Dose: 150 mg Tamsulosin HCl (Flomax -) 0.4 mg PO HS [facility] Last Admin: 04/09/18 21:25 Dose: 0.4 mg - Objective Vital Signs: Vital Signs Temperature 98.8 F 04/10/18 10:20 Pulse Rate 59 L 04/10/18 10:25 Respiratory Rate 18 04/10/18 10:25 Blood Pressure 118/54 04/10/18 10:25 O2 Sat by Pulse Oximetry (%) 98 04/09/18 21:00 Constitutional: Yes: Calm Eyes: Yes: Conjunctiva Clear HENT: Yes: Atraumatic Neck: Yes: Supple Cardiovascular: Yes: S1, S2 Respiratory: Yes: CTA Bilaterally Gastrointestinal: Yes: Normal Bowel Sounds, Soft Genitourinary: Yes: WNL Extremities: Yes: WNL Edema: No Wound/Incision: Yes: Other (wound vac) Neurological: Yes: Oriented Labs: CBC, BMP 04/08/18 14:30 04/08/18 14:30 INR, PTT INR 1.20 (0.83-1.09) H 03/28/18 22:22 Problem List - Problems (1) Diabetes Code(s): E11.9 - TYPE 2 DIABETES MELLITUS WITHOUT COMPLICATIONS Qualifiers: 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 type: type 1 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 complication status: with circulatory complication (2) ESRD (end stage renal disease) on dialysis Code(s): N18.6 - END STAGE RENAL DISEASE; Z99.2 - DEPENDENCE ON RENAL DIALYSIS (3) Syncope Code(s): R55 - SYNCOPE AND COLLAPSE (4) Anemia Code(s): D64.9 - ANEMIA, UNSPECIFIED Assessment/Plan Current Medications Generic Name Dose Route Start Last Admin Trade Name Freq PRN Reason Stop Dose Admin Acetaminophen 650 mg 04/02/18 15:12 04/06/18 22:21 Tylenol - PO 650 mg Q6H PRN Administration PAIN LEVEL 1-5 Artificial Tears 1 drop 04/02/18 15:12 Artificial Tears OU Q12H PRN DRY EYES Aspirin 81 mg 04/03/18 10:00 04/09/18 11:18 Ecotrin - PO 81 mg DAILY ROSIE Administration Atorvastatin Calcium 40 mg 04/02/18 22:00 04/09/18 21:25 Lipitor - PO 40 mg HS ROSIE Administration Calcium Acetate 667 mg 04/02/18 17:30 04/10/18 09:25 Phoslo - PO 667 mg TIDCM ROSIE Administration Carvedilol 12.5 mg 04/02/18 22:00 04/09/18 21:25 Coreg - PO 12.5 mg BID ROSIE Administration Citalopram Hydrobromide 20 mg 04/03/18 10:00 04/09/18 11:18 Celexa - PO 20 mg DAILY ROSIE Administration Clopidogrel Bisulfate 75 mg 04/03/18 10:00 04/09/18 11:19 Plavix - PO 75 mg DAILY ROSIE Administration Collagenase 1 applic 04/03/18 10:00 04/09/18 11:19 Santyl - TP 1 applic DAILY ROSIE Administration Protocol Divalproex Sodium 125 mg 04/02/18 22:00 04/09/18 21:25 Depakote - PO 125 mg BID ROSIE Administration Docusate Sodium 300 mg 04/02/18 22:00 04/09/18 21:25 Colace - PO 300 mg HS ROSIE Administration Folic Acid 1 mg 04/03/18 10:00 04/09/18 11:18 Folic Acid - PO 1 mg DAILY ROSIE Administration Gabapentin 100 mg 04/02/18 22:00 04/10/18 06:23 Neurontin - PO 100 mg TID ROSIE Administration Haloperidol 2 mg 04/02/18 22:00 04/09/18 21:26 Haldol - PO 2 mg HS ROSIE Administration Heparin Sodium (Porcine) 5,000 unit 04/09/18 22:18 Heparin - SQ 04/09/18 22:19 ONCE ONE Heparin Sodium (Porcine) 5,000 unit 04/10/18 10:00 Heparin - SQ BID ROSIE Piperacillin Sod/Tazobactam 100 mls @ 100 mls/hr 04/05/18 02:00 04/10/18 02: 21 Sod 2.25 gm/ Dextrose IVPB 100 mls/hr Q8H-IV ROSIE Administration Protocol Sodium Chloride 250 mls @ 3,000 mls/hr 04/09/18 15:57 Normal Saline - IV 04/10/18 15:57 PRN PRN Hypotension during Dialysis Insulin Aspart 1 vial 04/02/18 16:30 04/10/18 06:23 Novolog Vial Sliding Scale - SQ 4 units ACHS ROSIE Administration Protocol Insulin Detemir 15 units 04/08/18 10:54 04/09/18 21:26 Levemir Vial SQ 15 units HS ROSIE Administration Mirtazapine 15 mg 04/02/18 22:00 04/09/18 21:25 Remeron - PO 15 mg HS ROSIE Administration Multi-Ingredient Ointment 1 gm 04/03/18 10:00 04/09/18 11:23 Zinc Oxide 20% Topical Oint TP 1 applic DAILY [facility]IE Administration Multivitamins 1 each 04/03/18 10:00 04/09/18 11:19 Total B With C - PO 1 each DAILY [facility]IE Administration Ranitidine HCl 150 mg 04/03/18 10:00 04/09/18 11:27 Zantac - PO 150 mg DAILY [facility]IE Administration Tamsulosin HCl 0.4 mg 04/02/18 22:00 04/09/18 21:25 Flomax - PO 0.4 mg HS ROSIE Administration Impression 1. ESRD 2. anemia 3. HTN 4. Chol 5. DM 6. BPH 7. CAD 8. hypoglycemia 9. CHF 10. syncope 11. depression Plan - HD today - cont wound care - epogen for anemia - bp is stable - will follow Dr Donovan
[2018-04-10 11:01] LABS: HEMATOCRIT 25.1 % (35.4-49); HEMOGLOBIN 8.6 GM/dL (11.7-16.9); MCH 32.8 pg (25.7-33.7); MCHC 34.2 g/dl (32.0-35.9); MEAN CELL VOLUME 95.7 fl (80-96); MEAN PLT VOLUME 6.7 fl (7.5-11.1); PLATELET COUNT 415 K/MM3 (134-434); RBC 2.62 M/mm3 (4.00-5.60); RDW 15.7 % (11.9-15.9); WHITE BLOOD COUNT 12.1 K/mm3 (4.0-10.0)
[2018-04-10 11:17] LABS: ANION GAP 12 MMOL/L (8-16); BLOOD UREA NITROGEN 75 mg/dL (7-18); CALCIUM 8.2 mg/dL (8.5-10.1); CHLORIDE 100 mmol/L (98-107); CO2 28 mmol/L (21-32); CREATININE 6.7 mg/dL (0.7-1.3); GLUCOSE,RANDOM 156 mg/dL (74-106); SODIUM 140 mmol/L (136-145)
--- NOTE | 2018-04-10 13:09 | PN ---
Progress Note (short form) - Note Progress Note: - Note Progress Note: Patient seen and examined in hd comfortable No new issues Vital Signs - 24 hr 04/10/18 04/10/18 04/10/18 01:00 05:00 08:33 Temperature 98.1 F 98.1 F Pulse Rate 64 60 58 L Respiratory 20 20 18 Rate Blood Pressure 142/72 127/52 119/58 O2 Sat by Pulse Oximetry (%) 04/10/18 04/10/18 04/10/18 09:00 10:20 10:25 Temperature 98.8 F Pulse Rate 58 L 59 L Respiratory 18 18 Rate Blood Pressure 120/56 118/54 O2 Sat by Pulse 98 Oximetry (%) 04/10/18 04/10/18 04/10/18 10:55 11:25 11:55 Temperature Pulse Rate 58 L 58 L 58 L Respiratory 18 18 18 Rate Blood Pressure 114/59 102/52 97/57 O2 Sat by Pulse Oximetry (%) 04/10/18 04/10/18 04/10/18 12:25 12:55 13:25 Temperature Pulse Rate 69 59 L 59 L Respiratory 18 18 18 Rate Blood Pressure 92/44 104/49 90/44 O2 Sat by Pulse Oximetry (%) 04/10/18 04/10/18 04/10/18 13:55 14:00 14:34 Temperature 97.6 F Pulse Rate 60 61 61 Respiratory 18 18 20 Rate Blood Pressure 108/50 117/50 133/49 O2 Sat by Pulse Oximetry (%) 04/10/18 17:49 Temperature 98.0 F Pulse Rate 67 Respiratory 20 Rate Blood Pressure 131/53 O2 Sat by Pulse Oximetry (%) Current Medications Generic Name Dose Route Start Last Admin Trade Name Freq PRN Reason Stop Dose Admin Acetaminophen 650 mg 04/02/18 15:12 04/06/18 22:21 Tylenol - PO 650 mg Q6H PRN Administration PAIN LEVEL 1-5 Artificial Tears 1 drop 04/02/18 15:12 Artificial Tears OU Q12H PRN DRY EYES Aspirin 81 mg 04/03/18 10:00 04/10/18 16:28 Ecotrin - PO 81 mg DAILY [facility]IE Administration Atorvastatin Calcium 40 mg 04/02/18 22:00 04/10/18 21:08 Lipitor - PO 40 mg HS ROSIE Administration Calcium Acetate 667 mg 04/02/18 17:30 04/10/18 18:08 Phoslo - PO 667 mg TIDCM ROSIE Administration Carvedilol 12.5 mg 04/02/18 22:00 04/10/18 21:08 Coreg - PO 12.5 mg BID ROSIE Administration Citalopram Hydrobromide 20 mg 04/03/18 10:00 04/10/18 16:28 Celexa - PO 20 mg DAILY ROSIE Administration Clopidogrel Bisulfate 75 mg 04/03/18 10:00 04/10/18 16:28 Plavix - PO 75 mg DAILY [facility]IE Administration Collagenase 1 applic 04/03/18 10:00 04/10/18 16:29 Santyl - TP 1 applic DAILY [facility]IE Administration Protocol Collagenase 1 applic 04/10/18 19:30 04/10/18 21:05 Santyl - TP 1 applic DAILY [facility]IE Administration Protocol Divalproex Sodium 125 mg 04/02/18 22:00 04/10/18 21:08 Depakote - PO 125 mg BID ROSIE Administration Docusate Sodium 300 mg 04/02/18 22:00 04/10/18 21:08 Colace - PO 300 mg HS ROSIE Administration Folic Acid 1 mg 04/03/18 10:00 04/10/18 16:31 Folic Acid - PO 1 mg DAILY [facility] Administration Gabapentin 100 mg 04/02/18 22:00 04/10/18 21:08 Neurontin - PO 100 mg TID ROSIE Administration Haloperidol 2 mg 04/02/18 22:00 04/10/18 21:09 Haldol - PO 2 mg HS ROSIE Administration Heparin Sodium (Porcine) 5,000 unit 04/09/18 22:18 Heparin - SQ 04/09/18 22:19 ONCE ONE Heparin Sodium (Porcine) 5,000 unit 04/10/18 10:00 04/10/18 21:08 Heparin - SQ 5,000 unit BID [facility]IE Administration Piperacillin Sod/Tazobactam 100 mls @ 100 mls/hr 04/05/18 02:00 04/10/18 18: 08 Sod 2.25 gm/ Dextrose IVPB 100 mls/hr Q8H-IV ROSIE Administration Protocol Insulin Aspart 1 vial 04/02/18 16:30 04/10/18 21:07 Novolog Vial Sliding Scale - SQ 8 units ACHS ROSIE Administration Protocol Insulin Detemir 15 units 04/08/18 10:54 04/10/18 21:07 Levemir Vial SQ 15 units HS ROSIE Administration Mirtazapine 15 mg 04/02/18 22:00 04/10/18 21:08 Remeron - PO 15 mg HS ROSIE Administration Multi-Ingredient Ointment 1 gm 04/03/18 10:00 04/10/18 16:29 Zinc Oxide 20% Topical Oint TP 1 applic DAILY [facility]IE Administration Multivitamins 1 each 04/03/18 10:00 04/10/18 16:29 Total B With C - PO 1 each DAILY [facility]IE Administration Ranitidine HCl 150 mg 04/03/18 10:00 04/10/18 16:28 Zantac - PO 150 mg DAILY ROSIE Administration Tamsulosin HCl 0.4 mg 04/02/18 22:00 04/10/18 21:08 Flomax - PO 0.4 mg HS ROSIE Administration Laboratory Results - last 24 hr 04/10/18 04/10/18 04/10/18 06:20 10:30 10:30 WBC 12.1 H RBC 2.62 L Hgb 8.6 L Hct 25.1 L MCV 95.7 MCH 32.8 MCHC 34.2 RDW 15.7 Plt Count 415 MPV 6.7 L Sodium 140 Potassium 4.0 Chloride 100 Carbon Dioxide 28 Anion Gap 12 BUN 75 H Creatinine 6.7 H Creat Clearance w eGFR 8.18 POC Glucometer 257 Random Glucose 156 H D Calcium 8.2 L Blood Type Antibody Screen 04/10/18 04/10/18 04/10/18 10:30 17:20 21:03 WBC RBC Hgb Hct MCV MCH MCHC RDW Plt Count MPV Sodium Potassium Chloride Carbon Dioxide Anion Gap BUN Creatinine Creat Clearance w eGFR POC Glucometer 282 361 Random Glucose Calcium Blood Type B POSITIVE Antibody Screen Negative exam- Constitutional: Yes: No Distress, Comfortable. Neck: Yes: Supple. no jvd Cardiovascular: Yes: Regular Rate and Rhythm Respiratory: Yes: Diminished Gastrointestinal: Yes: Soft/ non tender Edema: No Wound/Incision: Yes: Bilateral heel ulcers -- dressing +--detailed podiatry-- note reviewed Neurological: Yes: Alert Psychiatric: Yes: Alert Labs: Assessment/Plan clinically stable Continue present care abx bone scan-ve spoke with both ID and Podiatry-- Automation Tester still recommends to continue iv antibiotics - still has drainage from right heel wound Arterial doppler-- Atherosclerotic disease vascular follow up monitor bgm- elevated--- increase Levemir dialysis per renal daily oob - chair Problem List - Problems (1) Diabetes Code(s): E11.9 - TYPE 2 DIABETES MELLITUS WITHOUT COMPLICATIONS Qualifiers: 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 type: type 1 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 complication status: with circulatory complication (2) ESRD (end stage renal disease) on dialysis Code(s): N18.6 - END STAGE RENAL DISEASE; Z99.2 - DEPENDENCE ON RENAL DIALYSIS (3) Infected pressure ulcer Code(s): L89.90 - PRESSURE ULCER OF UNSPECIFIED SITE, UNSPECIFIED STAGE; L08.9 - LOCAL INFECTION OF THE SKIN AND SUBCUTANEOUS TISSUE, UNSP (4) Syncope Code(s): R55 - SYNCOPE AND COLLAPSE (5) Acute metabolic encephalopathy due to hypoglycemia Code(s): G93.41 - METABOLIC ENCEPHALOPATHY; E16.2 - HYPOGLYCEMIA, UNSPECIFIED (6) Anemia Code(s): D64.9 - ANEMIA, UNSPECIFIED (7) CAD (coronary artery disease) Code(s): I25.10 - ATHSCL HEART DISEASE OF [place] CORONARY ARTERY W/O ANG PCTRS (8) ESRD (end stage renal disease) on dialysis Code(s): N18.6 - END STAGE RENAL DISEASE; Z99.2 - DEPENDENCE ON RENAL DIALYSIS
[2018-04-10] MEDS ORDERED: EPOETIN ALFA 2,000 UNIT/1 ML VIAL IVPUSH ONE (15:57)
--- NOTE | 2018-04-10 16:18 | PN ---
Progress Note (short form) - Note Progress Note: appears confused Vital Signs Period Temp Pulse Resp BP Sys/Rodriguez Pulse Ox Last 24 Hr 97.4 F-98.8 F 58-69 18-20 90-150/44-72 98 vac removed, dressings removed bilateral unstageable heel ulcers foul smelling CBC, BMP 04/10/18 10:30 04/10/18 10:30 Microbiology 04/02/18 19:00 Blood - Peripheral Venous Blood Culture - Final NO GROWTH AFTER 5 DAYS INCUBATION 04/02/18 19:00 Blood - Peripheral Venous Blood Culture - Final NO GROWTH AFTER 5 DAYS INCUBATION 03/29/18 12:56 Blood - Peripheral Venous Blood Culture - Final NO GROWTH AFTER 5 DAYS INCUBATION 03/29/18 11:56 Blood - Peripheral Venous Blood Culture - Final NO GROWTH AFTER 5 DAYS INCUBATION 03/29/18 07:44 Foot - Right Heel Gram Stain - Final 03/29/18 07:44 Foot - Right Heel Wound Culture - Final Staphylococcus Aureus Morganella Morganii Enterococcus Faecalis Klebsiella Pneumoniae 03/29/18 07:44 Foot - Left Heel Gram Stain - Final 03/29/18 07:44 Foot - Left Heel Wound Culture - Final Staphylococcus Aureus Morganella Morganii a/p bone scan no osteomyelitis management of bilateral heel pressure ulcers per podiatry continue zosyn for now can switch to po augmentin 500 mg daily when ready for discharge please call back if needed Problem List - Problems (1) Fever Code(s): R50.9 - FEVER, UNSPECIFIED (2) Infected pressure ulcer Code(s): L89.90 - PRESSURE ULCER OF UNSPECIFIED SITE, UNSPECIFIED STAGE; L08.9 - LOCAL INFECTION OF THE SKIN AND SUBCUTANEOUS TISSUE, UNSP (3) ESRD (end stage renal disease) on dialysis Code(s): N18.6 - END STAGE RENAL DISEASE; Z99.2 - DEPENDENCE ON RENAL DIALYSIS (4) Diabetes Code(s): E11.9 - TYPE 2 DIABETES MELLITUS WITHOUT COMPLICATIONS Qualifiers: 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 type: type 1 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 complication status: with circulatory complication
[2018-04-10] MEDS: RANITIDINE HCL 150 MG TABLET (FP) PO SCH (16:28)
[2018-04-10] MEDS: ASPIRIN COATED 81 MG TABLET.EC PO SCH (16:28)
[2018-04-10] MEDS: CITALOPRAM HYDROBROMIDE 20 MG TABLET (FP) PO SCH (16:28)
[2018-04-10] MEDS: CLOPIDOGREL BISULFATE 75 MG TABLET (FP) PO SCH (16:28)
[2018-04-10] MEDS: VITAMIN B COMPLEX W/C COMBO TABLET (FP) PO SCH (16:29)
[2018-04-10] MEDS: HEPARIN NA (PORCINE) 5,000 UNITS/ML 1ML VIAL SQ SCH ×2 (16:29→21:08)
[2018-04-10] MEDS: COLLAGENASE CLOSTRIDIUM HIST. 30 GRAMS TUBE TP SCH ×2 (16:29→21:05)
[2018-04-10] MEDS: ZINC OXIDE 20% TOPICAL OINTMENT 454 GM JAR TP SCH (16:29)
[2018-04-10] MEDS: FOLIC ACID 1 MG TABLET (FP) PO SCH (16:31)
[2018-04-10] MEDS: CARVEDILOL 12.5 MG TABLET (FP) PO SCH ×2 (16:31→21:08)
[2018-04-10] MEDS: DIVALPROEX SODIUM 125 MG TABLET E.C. PO SCH ×2 (16:31→21:08)
[2018-04-10] MEDS: INSULIN (LEVEMIR) 100 UNITS/ML UNITS SQ SCH (21:07)
[2018-04-10] MEDS: MIRTAZAPINE 15 MG TABLET (FP) PO SCH (21:08)
[2018-04-10] MEDS: DOCUSATE SODIUM 100 MG CAPSULE (FP) PO SCH (21:08)
[2018-04-10] MEDS: TAMSULOSIN HCL 0.4 MG CAP.ER.24H (FP) PO SCH (21:08)
[2018-04-10] MEDS: ATORVASTATIN CA 40 MG TABLET (FP) PO SCH (21:08)
[2018-04-10] MEDS: HALOPERIDOL 1 MG TABLET (FP) PO SCH (21:09)
[2018-04-11] MEDS ORDERED: DEXTROSE 5%-WATER 100 ML IVPB ONE ×4 (02:24→23:00)
[2018-04-11] MEDS ORDERED: PIPERACILLIN/TAZOBACTAM 2.25 GM VIAL IVPB ONE ×4 (02:24→23:00)
[2018-04-11] MEDS: PIPERACILLIN/TAZOB 2.25 GM 2.25 GM in DEXTROSE 5%-WATER 100 ML IVPB SCH ×3 (02:57→17:48)
[2018-04-11] MEDS: GABAPENTIN 100 MG CAPSULE (FP) PO SCH ×3 (06:02→21:39)
[2018-04-11] MEDS: INSULIN SLIDING SCALE (NOVOLOG) 1 VIAL SQ SCH ×4 (06:04→21:46)
[2018-04-11] MEDS: HEPARIN NA (PORCINE) 5,000 UNITS/ML 1ML VIAL SQ SCH ×2 (09:34→21:45)
[2018-04-11] MEDS: CALCIUM ACETATE 667 MG CAPSULE (FP) PO SCH ×3 (09:34→17:49)
[2018-04-11] MEDS: CITALOPRAM HYDROBROMIDE 20 MG TABLET (FP) PO SCH (09:34)
[2018-04-11] MEDS: COLLAGENASE CLOSTRIDIUM HIST. 30 GRAMS TUBE TP SCH ×2 (09:34→13:58)
[2018-04-11] MEDS: FOLIC ACID 1 MG TABLET (FP) PO SCH (09:34)
[2018-04-11] MEDS: RANITIDINE HCL 150 MG TABLET (FP) PO SCH (09:34)
[2018-04-11] MEDS: ASPIRIN COATED 81 MG TABLET.EC PO SCH (09:34)
[2018-04-11] MEDS: CLOPIDOGREL BISULFATE 75 MG TABLET (FP) PO SCH (09:34)
[2018-04-11] MEDS: VITAMIN B COMPLEX W/C COMBO TABLET (FP) PO SCH (09:34)
[2018-04-11] MEDS: ZINC OXIDE 20% TOPICAL OINTMENT 454 GM JAR TP SCH (09:36)
[2018-04-11] MEDS ORDERED: PT OWN MED DRAWER 7, Y5N ONE ×2 (09:39→22:58)
[2018-04-11] MEDS: DIVALPROEX SODIUM 125 MG TABLET E.C. PO SCH ×2 (09:40→21:41)
[2018-04-11] MEDS: CARVEDILOL 12.5 MG TABLET (FP) PO SCH ×2 (09:46→21:40)
[2018-04-11] MEDS ORDERED: SODIUM CHLORIDE 250 ML IV PRN (10:54)
--- NOTE | 2018-04-11 12:23 | PN ---
Progress Note (short form) - Note Progress Note: - Note Progress Note: Patient seen and examined comfortable confused No new issues Vital Signs - 24 hr 04/10/18 04/10/18 04/10/18 13:25 13:55 14:00 Temperature Pulse Rate 59 L 60 61 Respiratory 18 18 18 Rate Blood Pressure 90/44 108/50 117/50 O2 Sat by Pulse Oximetry (%) 04/10/18 04/10/18 04/10/18 14:34 17:49 21:00 Temperature 97.6 F 98.0 F 98.6 F Pulse Rate 61 67 65 Respiratory 20 20 22 Rate Blood Pressure 133/49 131/53 135/50 O2 Sat by Pulse 98 Oximetry (%) 04/11/18 04/11/18 04/11/18 01:00 05:00 09:00 Temperature 97.8 F 97.4 F L 98.3 F Pulse Rate 64 61 58 L Respiratory 20 20 18 Rate Blood Pressure 133/51 129/53 119/52 O2 Sat by Pulse Oximetry (%) Current Medications Generic Name Dose Route Start Last Admin Trade Name Freq PRN Reason Stop Dose Admin Acetaminophen 650 mg 04/02/18 15:12 04/06/18 22:21 Tylenol - PO 650 mg Q6H PRN Administration PAIN LEVEL 1-5 Artificial Tears 1 drop 04/02/18 15:12 Artificial Tears OU Q12H PRN DRY EYES Aspirin 81 mg 04/03/18 10:00 04/11/18 09:34 Ecotrin - PO 81 mg DAILY ROSIE Administration Atorvastatin Calcium 40 mg 04/02/18 22:00 04/10/18 21:08 Lipitor - PO 40 mg HS ROSIE Administration Calcium Acetate 667 mg 04/02/18 17:30 04/11/18 09:34 Phoslo - PO 667 mg TIDCM ROSIE Administration Carvedilol 12.5 mg 04/02/18 22:00 04/11/18 09:46 Coreg - PO 12.5 mg BID ROSIE Administration Citalopram Hydrobromide 20 mg 04/03/18 10:00 04/11/18 09:34 Celexa - PO 20 mg DAILY ROSIE Administration Clopidogrel Bisulfate 75 mg 04/03/18 10:00 04/11/18 09:34 Plavix - PO 75 mg DAILY ROSIE Administration Collagenase 1 applic 04/03/18 10:00 04/11/18 09:34 Santyl - TP 1 applic DAILY ROSIE Administration Protocol Collagenase 1 applic 04/10/18 19:30 04/10/18 21:05 Santyl - TP 1 applic DAILY ROSIE Administration Protocol Divalproex Sodium 125 mg 04/02/18 22:00 04/11/18 09:40 Depakote - PO 125 mg BID ROSIE Administration Docusate Sodium 300 mg 04/02/18 22:00 04/10/18 21:08 Colace - PO 300 mg HS ROSIE Administration Folic Acid 1 mg 04/03/18 10:00 04/11/18 09:34 Folic Acid - PO 1 mg DAILY ROSIE Administration Gabapentin 100 mg 04/02/18 22:00 04/11/18 06:02 Neurontin - PO 100 mg TID ROSIE Administration Haloperidol 2 mg 04/02/18 22:00 04/10/18 21:09 Haldol - PO 2 mg HS ROSIE Administration Heparin Sodium (Porcine) 5,000 unit 04/09/18 22:18 Heparin - SQ 04/09/18 22:19 ONCE ONE Heparin Sodium (Porcine) 5,000 unit 04/10/18 10:00 04/11/18 09:34 Heparin - SQ 5,000 unit BID ROSIE Administration Piperacillin Sod/Tazobactam 100 mls @ 100 mls/hr 04/05/18 02:00 04/11/18 09: 33 Sod 2.25 gm/ Dextrose IVPB 100 mls/hr Q8H-IV ROSIE Administration Protocol Insulin Aspart 1 vial 04/02/18 16:30 04/11/18 06:04 Novolog Vial Sliding Scale - SQ 4 units ACHS ROSIE Administration Protocol Insulin Detemir 15 units 04/08/18 10:54 04/10/18 21:07 Levemir Vial SQ 15 units HS ROSIE Administration Mirtazapine 7.5 mg 04/11/18 12:21 Remeron - PO HS ROSIE Multi-Ingredient Ointment 1 gm 04/03/18 10:00 04/11/18 09:36 Zinc Oxide 20% Topical Oint TP 1 applic DAILY ROSIE Administration Multivitamins 1 each 04/03/18 10:00 04/11/18 09:34 Total B With C - PO 1 each DAILY ROSIE Administration Ranitidine HCl 150 mg 04/03/18 10:00 04/11/18 09:34 Zantac - PO 150 mg DAILY ROSIE Administration Tamsulosin HCl 0.4 mg 04/02/18 22:00 04/10/18 21:08 Flomax - PO 0.4 mg HS ROSIE Administration Laboratory Results - last 24 hr 03/30/18 04/03/18 04/03/18 22:56 20:45 20:53 POC Glucometer 433 266 127 04/06/18 04/09/18 04/09/18 21:44 17:20 17:21 POC Glucometer 439 385 381 04/09/18 04/10/18 04/10/18 21:23 17:20 21:03 POC Glucometer 422 282 361 04/11/18 04/11/18 06:01 11:56 POC Glucometer 259 244 exam- Constitutional: Yes: No Distress, Comfortable. Neck: Yes: Supple. no jvd Cardiovascular: Yes: Regular Rate and Rhythm Respiratory: Yes: Diminished Gastrointestinal: Yes: Soft/ non tender Edema: No Wound/Incision: Yes: Bilateral heel ulcers -- dressing + as per nurse and ID-- wounds are fluctuant, necrotic and foul smelling Neurological: Yes: Alert Psychiatric: Yes: Alert Assessment/Plan clinically stable Continue present care abx bone scan-ve spoke with both ID and Podiatry-- Concrete Paving Supervisor still recommends to continue iv antibiotics - still has drainage from right heel wound, foul smelling, needs debridement Arterial doppler-- Atherosclerotic disease vascular follow up - as per RN- advised Jeanine and redd Wound vac, he will speak with pt's with regards to previous vascular surgery monitor bgm dialysis per renal daily oob - chair Problem List - Problems (1) Diabetes Code(s): E11.9 - TYPE 2 DIABETES MELLITUS WITHOUT COMPLICATIONS Qualifiers: 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 type: type 1 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 complication status: with circulatory complication (2) ESRD (end stage renal disease) on dialysis Code(s): N18.6 - END STAGE RENAL DISEASE; Z99.2 - DEPENDENCE ON RENAL DIALYSIS (3) Infected pressure ulcer Code(s): L89.90 - PRESSURE ULCER OF UNSPECIFIED SITE, UNSPECIFIED STAGE; L08.9 - LOCAL INFECTION OF THE SKIN AND SUBCUTANEOUS TISSUE, UNSP (4) Syncope Code(s): R55 - SYNCOPE AND COLLAPSE (5) Acute metabolic encephalopathy due to hypoglycemia Code(s): G93.41 - METABOLIC ENCEPHALOPATHY; E16.2 - HYPOGLYCEMIA, UNSPECIFIED (6) Anemia Code(s): D64.9 - ANEMIA, UNSPECIFIED (7) CAD (coronary artery disease) Code(s): I25.10 - ATHSCL HEART DISEASE OF [place] CORONARY ARTERY W/O ANG PCTRS (8) ESRD (end stage renal disease) on dialysis Code(s): N18.6 - END STAGE RENAL DISEASE; Z99.2 - DEPENDENCE ON RENAL DIALYSIS
[2018-04-11] MEDS ORDERED: INSULIN (LEVEMIR) 100 UNITS/ML UNITS SQ SCH (13:18)
--- NOTE | 2018-04-11 16:42 | PN ---
Progress Note, Physician History of Present Illness: Pt seen and examined at bedside. He is awake and appears comfortable. He remains confused. - Current Medication List Current Medications: Active Medications Acetaminophen (Tylenol -) 650 mg PO Q6H PRN PRN Reason: PAIN LEVEL 1-5 Last Admin: 04/06/18 22:21 Dose: 650 mg Artificial Tears (Artificial Tears) 1 drop OU Q12H PRN PRN Reason: DRY EYES Aspirin (Ecotrin -) 81 mg PO DAILY [facility] Last Admin: 04/11/18 09:34 Dose: 81 mg Atorvastatin Calcium (Lipitor -) 40 mg PO HS [facility] Last Admin: 04/10/18 21:08 Dose: 40 mg Calcium Acetate (Phoslo -) 667 mg PO TIDCM [facility] Last Admin: 04/11/18 14:09 Dose: Not Given Carvedilol (Coreg -) 12.5 mg PO BID [facility] Last Admin: 04/11/18 09:46 Dose: 12.5 mg Citalopram Hydrobromide (Celexa -) 20 mg PO DAILY [facility] Last Admin: 04/11/18 09:34 Dose: 20 mg Clopidogrel Bisulfate (Plavix -) 75 mg PO DAILY [facility] Last Admin: 04/11/18 09:34 Dose: 75 mg Collagenase (Santyl -) 1 applic TP DAILY [facility]; Protocol Last Admin: 04/11/18 13:58 Dose: Not Given Divalproex Sodium (Depakote -) 125 mg PO BID [facility] Last Admin: 04/11/18 09:40 Dose: 125 mg Docusate Sodium (Colace -) [address] [facility] Last Admin: 04/10/18 21:08 Dose: 300 mg Folic Acid (Folic Acid -) 1 mg PO DAILY [facility] Last Admin: 04/11/18 09:34 Dose: 1 mg Gabapentin (Neurontin -) 100 mg PO TID [facility] Last Admin: 04/11/18 14:09 Dose: Not Given Haloperidol (Haldol -) [address] [facility] Last Admin: 04/10/18 21:09 Dose: 2 mg Heparin Sodium (Porcine) (Heparin -) 5,000 unit SQ ONCE ONE Stop: 04/09/18 22:19 Heparin Sodium (Porcine) (Heparin -) 5,000 unit SQ BID [facility] Last Admin: 04/11/18 09:34 Dose: 5,000 unit Piperacillin Sod/Tazobactam (Sod 2.25 gm/ Dextrose) 100 mls @ 100 mls/hr IVPB Q8H-IV [facility]; Protocol Last Admin: 04/11/18 09:33 Dose: 100 mls/hr Insulin Aspart (Novolog Vial Sliding Scale -) 1 vial SQ [facility]; Protocol Last Admin: 04/11/18 14:19 Dose: 2 units Insulin Detemir (Levemir Vial) 18 units SQ HS [facility] Mirtazapine (Remeron -) 7.5 mg PO HS [facility] Multi-Ingredient Ointment (Zinc Oxide 20% Topical Oint) 1 gm TP DAILY [facility] Last Admin: 04/11/18 09:36 Dose: 1 applic Multivitamins (Total B With C -) 1 each PO DAILY [facility] Last Admin: 04/11/18 09:34 Dose: 1 each Ranitidine HCl (Zantac -) 150 mg PO DAILY [facility] Last Admin: 04/11/18 09:34 Dose: 150 mg Tamsulosin HCl (Flomax -) 0.[address] [facility] Last Admin: 04/10/18 21:08 Dose: 0.4 mg - Objective Vital Signs: Vital Signs Temperature 97.2 F L 04/11/18 14:23 Pulse Rate 56 L 04/11/18 14:23 Respiratory Rate 20 04/11/18 14:23 Blood Pressure 125/51 04/11/18 14:23 O2 Sat by Pulse Oximetry (%) 98 04/11/18 09:00 Constitutional: Yes: Calm Eyes: Yes: Conjunctiva Clear HENT: Yes: Atraumatic Neck: Yes: Supple Cardiovascular: Yes: S1, S2 Respiratory: Yes: CTA Bilaterally Gastrointestinal: Yes: Soft Genitourinary: Yes: WNL Musculoskeletal: Yes: WNL Edema: No Neurological: Yes: Confusion Labs: CBC, BMP 04/10/18 10:30 04/10/18 10:30 INR, PTT INR 1.20 (0.83-1.09) H 03/28/18 22:22 Problem List - Problems (1) Diabetes Code(s): E11.9 - TYPE 2 DIABETES MELLITUS WITHOUT COMPLICATIONS Qualifiers: 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 type: type 1 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 complication status: with circulatory complication (2) ESRD (end stage renal disease) on dialysis Code(s): N18.6 - END STAGE RENAL DISEASE; Z99.2 - DEPENDENCE ON RENAL DIALYSIS (3) Syncope Code(s): R55 - SYNCOPE AND COLLAPSE (4) Anemia Code(s): D64.9 - ANEMIA, UNSPECIFIED Assessment/Plan Current Medications Generic Name Dose Route Start Last Admin Trade Name Freq PRN Reason Stop Dose Admin Acetaminophen 650 mg 04/02/18 15:12 04/06/18 22:21 Tylenol - PO 650 mg Q6H PRN Administration PAIN LEVEL 1-5 Artificial Tears 1 drop 04/02/18 15:12 Artificial Tears OU Q12H PRN DRY EYES Aspirin 81 mg 04/03/18 10:00 04/11/18 09:34 Ecotrin - PO 81 mg DAILY [facility] Administration Atorvastatin Calcium 40 mg 04/02/18 22:00 04/10/18 21:08 Lipitor - PO 40 mg HS [facility] Administration Calcium Acetate 667 mg 04/02/18 17:30 04/11/18 14:09 Phoslo - PO Not Given TIDCM [facility] Carvedilol 12.5 mg 04/02/18 22:00 04/11/18 09:46 Coreg - PO 12.5 mg BID [facility] Administration Citalopram Hydrobromide 20 mg 04/03/18 10:00 04/11/18 09:34 Celexa - PO 20 mg DAILY [facility] Administration Clopidogrel Bisulfate 75 mg 04/03/18 10:00 04/11/18 09:34 Plavix - PO 75 mg DAILY [facility] Administration Collagenase 1 applic 04/10/18 19:30 04/11/18 13:58 Santyl - TP Not Given DAILY [facility] Protocol Divalproex Sodium 125 mg 04/02/18 22:00 04/11/18 09:40 Depakote - PO 125 mg BID [facility] Administration Docusate Sodium 300 mg 04/02/18 22:00 04/10/18 21:08 Colace - PO 300 mg HS [facility] Administration Folic Acid 1 mg 04/03/18 10:00 04/11/18 09:34 Folic Acid - PO 1 mg DAILY [facility] Administration Gabapentin 100 mg 04/02/18 22:00 04/11/18 14:09 Neurontin - PO Not Given TID [facility] Haloperidol 2 mg 04/02/18 22:00 04/10/18 21:09 Haldol - PO 2 mg HS [facility] Administration Heparin Sodium (Porcine) 5,000 unit 04/09/18 22:18 Heparin - SQ 04/09/18 22:19 ONCE ONE Heparin Sodium (Porcine) 5,000 unit 04/10/18 10:00 04/11/18 09:34 Heparin - SQ 5,000 unit BID [facility] Administration Piperacillin Sod/Tazobactam 100 mls @ 100 mls/hr 04/05/18 02:00 04/11/18 09: 33 Sod 2.25 gm/ Dextrose IVPB 100 mls/hr Q8H-IV [facility] Administration Protocol Insulin Aspart 1 vial 04/02/18 16:30 04/11/18 14:19 Novolog Vial Sliding Scale - SQ 2 units ACHS [facility] Administration Protocol Insulin Detemir 18 units 04/11/18 13:18 Levemir Vial SQ HS [facility] Mirtazapine 7.5 mg 04/11/18 12:21 Remeron - PO HS [facility] Multi-Ingredient Ointment 1 gm 04/03/18 10:00 04/11/18 09:36 Zinc Oxide 20% Topical Oint TP 1 applic DAILY [facility] Administration Multivitamins 1 each 04/03/18 10:00 04/11/18 09:34 Total B With C - PO 1 each DAILY [facility] Administration Ranitidine HCl 150 mg 04/03/18 10:00 04/11/18 09:34 Zantac - PO 150 mg DAILY [facility] Administration Tamsulosin HCl 0.4 mg 04/02/18 22:00 04/10/18 21:08 Flomax - PO 0.4 mg HS [facility] Administration Selected Entries 04/11/18 14:23 Blood Pressure 125/51 Impression 1. ESRD 2. anemia 3. HTN 4. Chol 5. DM 6. BPH 7. CAD 8. hypoglycemia 9. CHF 10. syncope 11. depression Plan - HD in am - cont with epogen - monitor hg - cont wound care - epogen for anemia - bp is stable - will follow Dr Donovan
[2018-04-11] MEDS ORDERED: INSULIN (NOVOLOG) ASPART 100 UNITS/ML 10ML VIAL ONE (17:38)
[2018-04-11] MEDS: ATORVASTATIN CA 40 MG TABLET (FP) PO SCH (21:39)
[2018-04-11] MEDS: MIRTAZAPINE 15 MG TABLET (FP) PO SCH (21:40)
[2018-04-11] MEDS: TAMSULOSIN HCL 0.4 MG CAP.ER.24H (FP) PO SCH (21:42)
[2018-04-11] MEDS: HALOPERIDOL 1 MG TABLET (FP) PO SCH (21:44)
[2018-04-11] MEDS: DOCUSATE SODIUM 100 MG CAPSULE (FP) PO SCH (22:55)
[2018-04-12] MEDS: PIPERACILLIN/TAZOB 2.25 GM 2.25 GM in DEXTROSE 5%-WATER 100 ML IVPB SCH ×3 (01:15→17:39)
[2018-04-12] MEDS: GABAPENTIN 100 MG CAPSULE (FP) PO SCH ×3 (06:32→22:46)
[2018-04-12] MEDS: INSULIN SLIDING SCALE (NOVOLOG) 1 VIAL SQ SCH ×4 (06:35→22:57)
[2018-04-12] MEDS ORDERED: PT OWN MED DRAWER 7, Y5N ONE ×3 (06:41→22:01)
[2018-04-12] MEDS ORDERED: INSULIN (NOVOLOG) ASPART 100 UNITS/ML 10ML VIAL ONE ×2 (06:41→23:00)
[2018-04-12] MEDS ORDERED: INSULIN (LEVEMIR) 100 UNITS/ML UNITS SQ ONE (06:41)
[2018-04-12] MEDS: CARVEDILOL 12.5 MG TABLET (FP) PO SCH ×2 (09:48→22:48)
[2018-04-12] MEDS: CALCIUM ACETATE 667 MG CAPSULE (FP) PO SCH ×3 (09:48→17:40)
[2018-04-12 10:27] LABS: HEMATOCRIT 25.7 % (35.4-49); HEMOGLOBIN 8.5 GM/dL (11.7-16.9); MCHC 33.1 g/dl (32.0-35.9); MEAN CELL VOLUME 96.6 fl (80-96); MEAN PLT VOLUME 6.7 fl (7.5-11.1); PLATELET COUNT 413 K/MM3 (134-434); RBC 2.66 M/mm3 (4.00-5.60); RDW 15.8 % (11.9-15.9); WHITE BLOOD COUNT 12.4 K/mm3 (4.0-10.0)
[2018-04-12] MEDS ORDERED: INSULIN (LEVEMIR) 100 UNITS/ML UNITS SQ SCH (10:27)
--- NOTE | 2018-04-12 10:28 | PN ---
Progress Note (short form) - Note Progress Note: Pt seen/examined in dialysis today awake/ comfortable chart reviewed afebrile Vital Signs Temp 98.2 F 04/12/18 05:00 Pulse 64 04/12/18 05:00 Resp 20 04/12/18 05:00 BP 151/56 04/12/18 05:00 Pulse Ox 98 04/11/18 21:00 Intake & Output 04/11/18 04/11/18 04/12/18 11:59 23:59 11:59 Intake Total 100 550 350 Balance 100 550 350 Weight 153 lb 12.8 oz 155 lb 6 oz Intake: IVPB 100 100 Oral 550 250 Other: Voiding Method Diaper Diaper Incontinent # Unmeasured Voids Void 2 2 Bowel Movement Yes Weight Measurement Method Patient Lift Scale Patient Lift Scale Active Medications Acetaminophen (Tylenol -) 650 mg PO Q6H PRN PRN Reason: PAIN LEVEL 1-5 Last Admin: 04/06/18 22:21 Dose: 650 mg Artificial Tears (Artificial Tears) 1 drop OU Q12H PRN PRN Reason: DRY EYES Aspirin (Ecotrin -) 81 mg PO DAILY [facility] Last Admin: 04/11/18 09:34 Dose: 81 mg Atorvastatin Calcium (Lipitor -) 40 mg PO [facility] Last Admin: 04/11/18 21:39 Dose: 40 mg Calcium Acetate (Phoslo -) 667 mg PO TIDCM [facility] Last Admin: 04/12/18 09:48 Dose: Not Given Carvedilol (Coreg -) 12.5 mg PO BID [facility] Last Admin: 04/12/18 09:48 Dose: Not Given Citalopram Hydrobromide (Celexa -) 20 mg PO DAILY [facility] Last Admin: 04/11/18 09:34 Dose: 20 mg Clopidogrel Bisulfate (Plavix -) 75 mg PO DAILY [facility] Last Admin: 04/11/18 09:34 Dose: 75 mg Collagenase (Santyl -) 1 applic TP DAILY [facility]; Protocol Last Admin: 04/11/18 13:58 Dose: Not Given Divalproex Sodium (Depakote -) 125 mg PO BID [facility] Last Admin: 04/11/18 21:41 Dose: 125 mg Docusate Sodium (Colace -) 300 mg PO HS [facility] Last Admin: 04/11/18 22:55 Dose: 300 mg Epoetin Jose Francisco (Epogen -) 12,000 unit IVPUSH ONCE ONE Stop: 04/12/18 16:43 Folic Acid (Folic Acid -) 1 mg PO DAILY [facility] Last Admin: 04/11/18 09:34 Dose: 1 mg Gabapentin (Neurontin -) 100 mg PO TID [facility] Last Admin: 04/12/18 06:32 Dose: 100 mg Haloperidol (Haldol -) 2 mg PO HS [facility] Last Admin: 04/11/18 21:44 Dose: 2 mg Heparin Sodium (Porcine) (Heparin -) 5,000 unit SQ ONCE ONE Stop: 04/09/18 22:19 Heparin Sodium (Porcine) (Heparin -) 5,000 unit SQ BID [facility] Last Admin: 04/11/18 21:45 Dose: 5,000 unit Heparin Sodium (Porcine) (Heparin -) 1,000 unit IVPUSH ONCE ONE Stop: 04/12/18 16:43 Piperacillin Sod/Tazobactam (Sod 2.25 gm/ Dextrose) 100 mls @ 100 mls/hr IVPB Q8H-IV [facility]; Protocol Last Admin: 04/12/18 01:15 Dose: 100 mls/hr Sodium Chloride (Normal Saline -) 250 mls @ 3,000 mls/hr IV PRN PRN PRN Reason: Hypotension during Dialysis Stop: 04/12/18 16:42 Insulin Aspart (Novolog Vial Sliding Scale -) 1 vial SQ [facility]; Protocol Last Admin: 04/12/18 06:35 Dose: 6 units Insulin Detemir (Levemir Vial) 22 units SQ [facility] Mirtazapine (Remeron -) 7.5 mg PO [facility] Last Admin: 04/11/18 21:40 Dose: 7.5 mg Multi-Ingredient Ointment (Zinc Oxide 20% Topical Oint) 1 gm TP DAILY [facility] Last Admin: 04/11/18 09:36 Dose: 1 applic Multivitamins (Total B With C -) 1 each PO DAILY [facility] Last Admin: 04/11/18 09:34 Dose: 1 each Ranitidine HCl (Zantac -) 150 mg PO DAILY [facility] Last Admin: 04/11/18 09:34 Dose: 150 mg Tamsulosin HCl (Flomax -) 0.4 mg PO HS [facility] Last Admin: 04/11/18 21:42 Dose: 0.4 mg CBC,CMP WBC 12.1 K/mm3 (4.0-10.0) H 04/10/18 10:30 RBC 2.62 M/mm3 (4.00-5.60) L 04/10/18 10:30 Hgb 8.6 GM/dL (11.7-16.9) L 04/10/18 10:30 Hct 25.1 % (35.4-49) L 04/10/18 10:30 MCV 95.7 fl (80-96) 04/10/18 10:30 MCH 32.8 pg (25.7-33.7) 04/10/18 10:30 MCHC 34.2 g/dl (32.0-35.9) 04/10/18 10:30 RDW 15.7 % (11.9-15.9) 04/10/18 10:30 Plt Count 415 K/MM3 (134-434) 04/10/18 10:30 MPV 6.7 fl (7.5-11.1) L 04/10/18 10:30 Absolute Neuts (auto) 8.1 K/mm3 (1.5-8.0) H 04/03/18 06:40 Neutrophils % 79.6 % (42.8-82.8) 04/03/18 06:40 Lymphocytes % 6.5 % (8-40) L D 04/03/18 06:40 Monocytes % 10.9 % (3.8-10.2) H 04/03/18 06:40 Eosinophils % 2.4 % (0-4.5) D 04/03/18 06:40 Basophils % 0.6 % (0-2.0) 04/03/18 06:40 Nucleated RBC % 0 % (0-0) 04/03/18 06:40 ESR > 140 mm/hr (0-20) H 03/30/18 18:00 Sodium 140 mmol/L (136-145) 04/10/18 10:30 Potassium 4.0 mmol/L (3.5-5.1) 04/10/18 10:30 Chloride 100 mmol/L (98-107) 04/10/18 10:30 Carbon Dioxide 28 mmol/L (21-32) 04/10/18 10:30 Anion Gap 12 MMOL/L (8-16) 04/10/18 10:30 BUN 75 mg/dL (7-18) H 04/10/18 10:30 Creatinine 6.7 mg/dL (0.7-1.3) H 04/10/18 10:30 Creat Clearance w eGFR 8.18 (>60) 04/10/18 10:30 POC Glucometer 341 UNITS (80-120) 04/12/18 06:33 Random Glucose 369 mg/dL (74-106) H* D 04/11/18 21:30 Hemoglobin A1c % 6.9 % (4.8-6.0) H D 03/29/18 06:15 Calcium 8.2 mg/dL (8.5-10.1) L 04/10/18 10:30 Phosphorus 3.0 mg/dL (2.5-4.9) D 03/29/18 06:15 Magnesium 1.9 mg/dL (1.8-2.4) 03/29/18 06:15 Total Bilirubin 0.4 mg/dL (0.2-1.0) 04/03/18 06:40 AST 24 U/L (15-37) D 04/03/18 06:40 ALT 32 U/L (12-78) D 04/03/18 06:40 Alkaline Phosphatase 69 U/L (45-117) D 04/03/18 06:40 Creatine Kinase 107 IU/L (39-308) 03/28/18 22:22 Troponin I 0.34 ng/ml (0.00-0.05) H D 03/29/18 06:15 Total Protein 6.0 g/dl (6.4-8.2) L 04/03/18 06:40 Albumin 2.0 g/dl (3.4-5.0) L 04/03/18 06:40 TSH 0.23 uIU/ml (0.358-3.74) L D 04/07/18 06:00 Physical Constitutional: Yes: No Distress, Comfortable. Neck: Yes: Supple. no jvd Cardiovascular: Yes: Regular Rate and Rhythm Respiratory: Yes: Diminished Gastrointestinal: Yes: Soft/ non tender Edema: No Wound/Incision: Yes: Bilateral heel ulcers -- dressing + Neurological: Yes: Alert Psychiatric: Yes: Alert Assessment/Plan clinically stable Continue present care abx-- podiatry f/u will follow Problem List - Problems (1) Diabetes Code(s): E11.9 - TYPE 2 DIABETES MELLITUS WITHOUT COMPLICATIONS Qualifiers: 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 type: type 1 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 complication status: with circulatory complication (2) ESRD (end stage renal disease) on dialysis Code(s): N18.6 - END STAGE RENAL DISEASE; Z99.2 - DEPENDENCE ON RENAL DIALYSIS (3) Infected pressure ulcer Code(s): L89.90 - PRESSURE ULCER OF UNSPECIFIED SITE, UNSPECIFIED STAGE; L08.9 - LOCAL INFECTION OF THE SKIN AND SUBCUTANEOUS TISSUE, UNSP (4) Syncope Code(s): R55 - SYNCOPE AND COLLAPSE (5) Acute metabolic encephalopathy due to hypoglycemia Code(s): G93.41 - METABOLIC ENCEPHALOPATHY; E16.2 - HYPOGLYCEMIA, UNSPECIFIED (6) Anemia Code(s): D64.9 - ANEMIA, UNSPECIFIED (7) CAD (coronary artery disease) Code(s): I25.10 - ATHSCL HEART DISEASE OF [place] CORONARY ARTERY W/O ANG PCTRS (8) ESRD (end stage renal disease) on dialysis Code(s): N18.6 - END STAGE RENAL DISEASE; Z99.2 - DEPENDENCE ON RENAL DIALYSIS
[2018-04-12] MEDS ORDERED: DEXTROSE 5%-WATER 100 ML IVPB ONE ×3 (10:45→23:57)
[2018-04-12] MEDS ORDERED: PIPERACILLIN/TAZOBACTAM 2.25 GM VIAL IVPB ONE ×3 (10:45→23:56)
[2018-04-12 10:56] LABS: CALCIUM 8.4 mg/dL (8.5-10.1); CHLORIDE 101 mmol/L (98-107); SODIUM 142 mmol/L (136-145)
[2018-04-12 11:00] LABS: ANION GAP 15 MMOL/L (8-16); BLOOD UREA NITROGEN 78 mg/dL (7-18); CO2 26 mmol/L (21-32); CREATININE 6.5 mg/dL (0.7-1.3); GLUCOSE,RANDOM 191 mg/dL (74-106)
[2018-04-12] MEDS ORDERED: EPOETIN ALFA 2,000 UNIT/1 ML VIAL IVPUSH ONE (11:00)
[2018-04-12] MEDS ORDERED: HEPARIN NA (PORCINE) 5,000 UNITS/ML 1ML VIAL IVPUSH ONE (11:00)
--- NOTE | 2018-04-12 14:30 | PN ---
Progress Note (short form) - Note Progress Note: Bilateral heel wounds with necrotic eschar and local erythema. I spoke with his and she stated that he had an angio procedure on the right leg at [facility] but they were unable to treat the blockages completely. He has previously had a bypass n the right leg which failed. I discussed the need to reevaluate the distal vessels with angiography and try to reopen tibial vessels to help healing of the wounds. His agrees and consents. I will schedule angiogram in [place] as soon as possible. Problem List - Problems (1) PAD (peripheral artery disease) Code(s): I73.9 - PERIPHERAL VASCULAR DISEASE, UNSPECIFIED
--- NOTE | 2018-04-12 14:40 | PN ---
Progress Note, Physician History of Present Illness: Pt seen and examined at bedside. He is awake and appears comfortable. He denies shortness of breath. He is currently getting HD. - Current Medication List Current Medications: Active Medications Acetaminophen (Tylenol -) 650 mg PO Q6H PRN PRN Reason: PAIN LEVEL 1-5 Last Admin: 04/06/18 22:21 Dose: 650 mg Artificial Tears (Artificial Tears) 1 drop OU Q12H PRN PRN Reason: DRY EYES Aspirin (Ecotrin -) 81 mg PO DAILY [facility] Last Admin: 04/11/18 09:34 Dose: 81 mg Atorvastatin Calcium (Lipitor -) 40 mg PO HS [facility] Last Admin: 04/11/18 21:39 Dose: 40 mg Calcium Acetate (Phoslo -) 667 mg PO TIDCM [facility] Last Admin: 04/12/18 09:48 Dose: Not Given Carvedilol (Coreg -) 12.5 mg PO BID [facility] Last Admin: 04/12/18 09:48 Dose: Not Given Citalopram Hydrobromide (Celexa -) 20 mg PO DAILY [facility] Last Admin: 04/11/18 09:34 Dose: 20 mg Clopidogrel Bisulfate (Plavix -) 75 mg PO DAILY [facility] Last Admin: 04/11/18 09:34 Dose: 75 mg Collagenase (Santyl -) 1 applic TP DAILY [facility]; Protocol Last Admin: 04/11/18 13:58 Dose: Not Given Divalproex Sodium (Depakote -) 125 mg PO BID [facility] Last Admin: 04/11/18 21:41 Dose: 125 mg Docusate Sodium (Colace -) 300 mg PO HS [facility] Last Admin: 04/11/18 22:55 Dose: 300 mg Folic Acid (Folic Acid -) 1 mg PO DAILY [facility] Last Admin: 04/11/18 09:34 Dose: 1 mg Gabapentin (Neurontin -) 100 mg PO TID [facility] Last Admin: 04/12/18 06:32 Dose: 100 mg Haloperidol (Haldol -) 2 mg PO HS [facility] Last Admin: 04/11/18 21:44 Dose: 2 mg Heparin Sodium (Porcine) (Heparin -) 5,000 unit SQ ONCE ONE Stop: 04/09/18 22:19 Heparin Sodium (Porcine) (Heparin -) 5,000 unit SQ BID [facility] Last Admin: 04/11/18 21:45 Dose: 5,000 unit Piperacillin Sod/Tazobactam (Sod 2.25 gm/ Dextrose) 100 mls @ 100 mls/hr IVPB Q8H-IV [facility]; Protocol Last Admin: 04/12/18 11:47 Dose: 100 mls/hr Insulin Aspart (Novolog Vial Sliding Scale -) 1 vial SQ [facility]; Protocol Last Admin: 04/12/18 11:40 Dose: Not Given Insulin Detemir (Levemir Vial) 22 units SQ [facility] Mirtazapine (Remeron -) 7.5 mg PO HS [facility] Last Admin: 04/11/18 21:40 Dose: 7.5 mg Multi-Ingredient Ointment (Zinc Oxide 20% Topical Oint) 1 gm TP DAILY [facility] Last Admin: 04/11/18 09:36 Dose: 1 applic Multivitamins (Total B With C -) 1 each PO DAILY [facility] Last Admin: 04/11/18 09:34 Dose: 1 each Ranitidine HCl (Zantac -) 150 mg PO DAILY [facility] Last Admin: 04/11/18 09:34 Dose: 150 mg Tamsulosin HCl (Flomax -) 0.4 mg PO [facility] Last Admin: 04/11/18 21:42 Dose: 0.4 mg - Objective Vital Signs: Vital Signs Temperature 98.5 F 04/12/18 09:55 Pulse Rate 58 L 04/12/18 13:35 Respiratory Rate 18 04/12/18 13:35 Blood Pressure 98/47 04/12/18 13:35 O2 Sat by Pulse Oximetry (%) 98 04/11/18 21:00 Constitutional: Yes: Calm Eyes: Yes: Conjunctiva Clear HENT: Yes: Atraumatic Neck: Yes: Supple Cardiovascular: Yes: S1, S2 Respiratory: Yes: CTA Bilaterally Gastrointestinal: Yes: Normal Bowel Sounds, Soft Genitourinary: Yes: WNL Extremities: Yes: WNL Edema: No Neurological: Yes: Confusion Labs: CBC, BMP 04/12/18 10:00 04/12/18 10:00 INR, PTT INR 1.20 (0.83-1.09) H 03/28/18 22:22 Problem List - Problems (1) Diabetes Code(s): E11.9 - TYPE 2 DIABETES MELLITUS WITHOUT COMPLICATIONS Qualifiers: 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 type: type 1 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 complication status: with circulatory complication (2) ESRD (end stage renal disease) on dialysis Code(s): N18.6 - END STAGE RENAL DISEASE; Z99.2 - DEPENDENCE ON RENAL DIALYSIS (3) Syncope Code(s): R55 - SYNCOPE AND COLLAPSE (4) Anemia Code(s): D64.9 - ANEMIA, UNSPECIFIED Assessment/Plan Current Medications Generic Name Dose Route Start Last Admin Trade Name Freq PRN Reason Stop Dose Admin Acetaminophen 650 mg 04/02/18 15:12 04/06/18 22:21 Tylenol - PO 650 mg Q6H PRN Administration PAIN LEVEL 1-5 Artificial Tears 1 drop 04/02/18 15:12 Artificial Tears OU Q12H PRN DRY EYES Aspirin 81 mg 04/03/18 10:00 04/11/18 09:34 Ecotrin - PO 81 mg DAILY [facility] Administration Atorvastatin Calcium 40 mg 04/02/18 22:00 04/11/18 21:39 Lipitor - PO 40 mg HS [facility] Administration Calcium Acetate 667 mg 04/02/18 17:30 04/12/18 09:48 Phoslo - PO Not Given TIDCM [facility] Carvedilol 12.5 mg 04/02/18 22:00 04/12/18 09:48 Coreg - PO Not Given BID [facility] Citalopram Hydrobromide 20 mg 04/03/18 10:00 04/11/18 09:34 Celexa - PO 20 mg DAILY [facility] Administration Clopidogrel Bisulfate 75 mg 04/03/18 10:00 04/11/18 09:34 Plavix - PO 75 mg DAILY [facility] Administration Collagenase 1 applic 04/10/18 19:30 04/11/18 13:58 Santyl - TP Not Given DAILY [facility] Protocol Divalproex Sodium 125 mg 04/02/18 22:00 04/11/18 21:41 Depakote - PO 125 mg BID [facility] Administration Docusate Sodium 300 mg 04/02/18 22:00 04/11/18 22:55 Colace - PO 300 mg HS [facility] Administration Folic Acid 1 mg 04/03/18 10:00 04/11/18 09:34 Folic Acid - PO 1 mg DAILY [facility] Administration Gabapentin 100 mg 04/02/18 22:00 04/12/18 06:32 Neurontin - PO 100 mg TID [facility] Administration Haloperidol 2 mg 04/02/18 22:00 04/11/18 21:44 Haldol - PO 2 mg HS [facility] Administration Heparin Sodium (Porcine) 5,000 unit 04/09/18 22:18 Heparin - SQ 04/09/18 22:19 ONCE ONE Heparin Sodium (Porcine) 5,000 unit 04/10/18 10:00 04/11/18 21:45 Heparin - SQ 5,000 unit BID [facility] Administration Piperacillin Sod/Tazobactam 100 mls @ 100 mls/hr 04/05/18 02:00 04/12/18 11: 47 Sod 2.25 gm/ Dextrose IVPB 100 mls/hr Q8H-IV [facility] Administration Protocol Insulin Aspart 1 vial 04/02/18 16:30 04/12/18 11:40 Novolog Vial Sliding Scale - SQ Not Given ACHS [facility] Protocol Insulin Detemir 22 units 04/12/18 10:27 Levemir Vial SQ HS [facility] Mirtazapine 7.5 mg 04/11/18 12:21 04/11/18 21:40 Remeron - PO 7.5 mg HS [facility] Administration Multi-Ingredient Ointment 1 gm 04/03/18 10:00 04/11/18 09:36 Zinc Oxide 20% Topical Oint TP 1 applic DAILY [facility] Administration Multivitamins 1 each 04/03/18 10:00 04/11/18 09:34 Total B With C - PO 1 each DAILY [facility] Administration Ranitidine HCl 150 mg 04/03/18 10:00 04/11/18 09:34 Zantac - PO 150 mg DAILY [facility] Administration Tamsulosin HCl 0.4 mg 04/02/18 22:00 04/11/18 21:42 Flomax - PO 0.4 mg HS [facility] Administration Impression 1. ESRD 2. anemia 3. HTN 4. Chol 5. DM 6. BPH 7. CAD 8. hypoglycemia 9. CHF 10. syncope 11. depression Plan - pt tolerating HD - next HD on Sunday - cont epo - cnt wound care - monitor blood pressure - renal diet - will follow Dr Donovan
[2018-04-12] MEDS: CLOPIDOGREL BISULFATE 75 MG TABLET (FP) PO SCH (15:02)
[2018-04-12] MEDS: ASPIRIN COATED 81 MG TABLET.EC PO SCH (15:02)
[2018-04-12] MEDS: DIVALPROEX SODIUM 125 MG TABLET E.C. PO SCH ×2 (15:02→22:55)
[2018-04-12] MEDS: CITALOPRAM HYDROBROMIDE 20 MG TABLET (FP) PO SCH (15:03)
[2018-04-12] MEDS: HEPARIN NA (PORCINE) 5,000 UNITS/ML 1ML VIAL SQ SCH ×2 (15:07→22:57)
[2018-04-12] MEDS: FOLIC ACID 1 MG TABLET (FP) PO SCH (15:07)
[2018-04-12] MEDS: COLLAGENASE CLOSTRIDIUM HIST. 30 GRAMS TUBE TP SCH (15:07)
[2018-04-12] MEDS: VITAMIN B COMPLEX W/C COMBO TABLET (FP) PO SCH (15:09)
[2018-04-12] MEDS: RANITIDINE HCL 150 MG TABLET (FP) PO SCH (15:09)
[2018-04-12] MEDS: ZINC OXIDE 20% TOPICAL OINTMENT 454 GM JAR TP SCH (15:09)
[2018-04-12 16:04] LABS: CREATININE 1.5 mg/dL (0.7-1.3)
[2018-04-12] MEDS: DOCUSATE SODIUM 100 MG CAPSULE (FP) PO SCH (22:46)
[2018-04-12] MEDS: TAMSULOSIN HCL 0.4 MG CAP.ER.24H (FP) PO SCH (22:47)
[2018-04-12] MEDS: ATORVASTATIN CA 40 MG TABLET (FP) PO SCH (22:47)
[2018-04-12] MEDS: HALOPERIDOL 1 MG TABLET (FP) PO SCH (22:56)
[2018-04-12] MEDS: MIRTAZAPINE 15 MG TABLET (FP) PO SCH (22:56)
[2018-04-13] MEDS: PIPERACILLIN/TAZOB 2.25 GM 2.25 GM in DEXTROSE 5%-WATER 100 ML IVPB SCH ×3 (01:59→18:16)
[2018-04-13] MEDS: GABAPENTIN 100 MG CAPSULE (FP) PO SCH ×3 (05:33→21:47)
[2018-04-13] MEDS: INSULIN SLIDING SCALE (NOVOLOG) 1 VIAL SQ SCH ×4 (06:51→21:50)
--- NOTE | 2018-04-13 10:15 | PN ---
Progress Note (short form) - Note Progress Note: - Note Progress Note: Patient seen and examined comfortable confused No new issues was agitated last night per RN Vital Signs - 24 hr 04/12/18 04/12/18 04/12/18 19:00 21:00 23:00 Temperature 98.1 F 98 F Pulse Rate 62 70 Respiratory 18 20 Rate Blood Pressure 142/60 137/70 O2 Sat by Pulse 98 Oximetry (%) 04/13/18 04/13/18 04/13/18 02:21 06:00 10:00 Temperature 98.1 F 99.0 F 98 F Pulse Rate 61 59 L 58 L Respiratory 18 18 18 Rate Blood Pressure 121/44 121/47 113/52 O2 Sat by Pulse Oximetry (%) 04/13/18 14:39 Temperature 97.4 F L Pulse Rate 56 L Respiratory 20 Rate Blood Pressure 114/50 O2 Sat by Pulse Oximetry (%) Current Medications Generic Name Dose Route Start Last Admin Trade Name Freq PRN Reason Stop Dose Admin Acetaminophen 650 mg 04/02/18 15:12 04/06/18 22:21 Tylenol - PO 650 mg Q6H PRN Administration PAIN LEVEL 1-5 Artificial Tears 1 drop 04/02/18 15:12 Artificial Tears OU Q12H PRN DRY EYES Aspirin 81 mg 04/03/18 10:00 04/13/18 11:36 Ecotrin - PO 81 mg DAILY ROSIE Administration Atorvastatin Calcium 40 mg 04/02/18 22:00 04/12/18 22:47 Lipitor - PO 40 mg HS ROSIE Administration Calcium Acetate 667 mg 04/02/18 17:30 04/13/18 11:35 Phoslo - PO 667 mg TIDCM ROSIE Administration Carvedilol 12.5 mg 04/02/18 22:00 04/13/18 15:55 Coreg - PO Not Given BID ROSIE Citalopram Hydrobromide 20 mg 04/03/18 10:00 04/13/18 11:37 Celexa - PO 20 mg DAILY ROSIE Administration Clopidogrel Bisulfate 75 mg 04/03/18 10:00 04/13/18 11:34 Plavix - PO 75 mg DAILY ROSIE Administration Collagenase 1 applic 04/10/18 19:30 04/12/18 15:07 Santyl - TP 1 applic DAILY ROSIE Administration Protocol Divalproex Sodium 125 mg 04/02/18 22:00 04/13/18 11:36 Depakote - PO 125 mg BID ROSIE Administration Docusate Sodium 300 mg 04/02/18 22:00 04/12/18 22:46 Colace - PO 300 mg HS ROSIE Administration Folic Acid 1 mg 04/03/18 10:00 04/13/18 11:34 Folic Acid - PO 1 mg DAILY ROSIE Administration Gabapentin 100 mg 04/02/18 22:00 04/13/18 15:54 Neurontin - PO Not Given TID ROSIE Haloperidol 2 mg 04/02/18 22:00 04/12/18 22:56 Haldol - PO 2 mg HS ROSIE Administration Heparin Sodium (Porcine) 5,000 unit 04/10/18 10:00 04/13/18 11:35 Heparin - SQ 5,000 unit BID ROSIE Administration Piperacillin Sod/Tazobactam 100 mls @ 100 mls/hr 04/05/18 02:00 04/13/18 11: 40 Sod 2.25 gm/ Dextrose IVPB 100 mls/hr Q8H-IV ROSIE Administration Protocol Insulin Aspart 1 vial 04/02/18 16:30 04/13/18 12:31 Novolog Vial Sliding Scale - SQ Not Given ACHS [facility] Protocol Insulin Detemir 24 units 04/13/18 10:33 Levemir Vial SQ HS ROSIE Mirtazapine 7.5 mg 04/11/18 12:21 04/12/18 22:56 Remeron - PO 7.5 mg HS ROSIE Administration Multi-Ingredient Ointment 1 gm 04/03/18 10:00 04/13/18 11:38 Zinc Oxide 20% Topical Oint TP 1 applic DAILY ROSIE Administration Multivitamins 1 each 04/03/18 10:00 04/13/18 11:36 Total B With C - PO 1 each DAILY ROSIE Administration Ranitidine HCl 150 mg 04/03/18 10:00 04/13/18 11:38 Zantac - PO 150 mg DAILY ROSIE Administration Tamsulosin HCl 0.4 mg 04/02/18 22:00 04/12/18 22:47 Flomax - PO 0.4 mg HS ROSIE Administration Laboratory Results - last 24 hr 04/12/18 04/12/18 04/13/18 17:37 21:30 05:24 POC Glucometer 339 449 237 04/13/18 11:57 POC Glucometer 84 exam- Constitutional: Yes: No Distress, Comfortable. Neck: Yes: Supple. no jvd Cardiovascular: Yes: Regular Rate and Rhythm Respiratory: Yes: Diminished Gastrointestinal: Yes: Soft/ non tender Edema: No Wound/Incision: Yes: Bilateral heel ulcers -- dressing + Neurological: Yes: Alert Psychiatric: Yes: Alert,calm Assessment/Plan clinically stable Continue present care abx bone scan-ve spoke with both ID and Podiatry-- [employer]ducer still recommends to continue iv antibiotics - still has drainage from right heel wound, foul smelling, Vascular eval noted-- plan for angiogram next week- will need cardiology eval for clearance Arterial doppler-- Atherosclerotic disease monitor bgm-- increase Levemir dialysis per renal daily oob - chair Problem List - Problems (1) Diabetes Code(s): E11.9 - TYPE 2 DIABETES MELLITUS WITHOUT COMPLICATIONS Qualifiers: 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 type: type 1 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 complication status: with circulatory complication (2) ESRD (end stage renal disease) on dialysis Code(s): N18.6 - END STAGE RENAL DISEASE; Z99.2 - DEPENDENCE ON RENAL DIALYSIS (3) Infected pressure ulcer Code(s): L89.90 - PRESSURE ULCER OF UNSPECIFIED SITE, UNSPECIFIED STAGE; L08.9 - LOCAL INFECTION OF THE SKIN AND SUBCUTANEOUS TISSUE, UNSP (4) Syncope Code(s): R55 - SYNCOPE AND COLLAPSE (5) Acute metabolic encephalopathy due to hypoglycemia Code(s): G93.41 - METABOLIC ENCEPHALOPATHY; E16.2 - HYPOGLYCEMIA, UNSPECIFIED (6) Anemia Code(s): D64.9 - ANEMIA, UNSPECIFIED (7) CAD (coronary artery disease) Code(s): I25.10 - ATHSCL HEART DISEASE OF [place] CORONARY ARTERY W/O ANG PCTRS (8) ESRD (end stage renal disease) on dialysis Code(s): N18.6 - END STAGE RENAL DISEASE; Z99.2 - DEPENDENCE ON RENAL DIALYSIS
[2018-04-13] MEDS ORDERED: INSULIN (LEVEMIR) 100 UNITS/ML UNITS SQ SCH (10:33)
[2018-04-13] MEDS: CALCIUM ACETATE 667 MG CAPSULE (FP) PO SCH ×3 (10:51→18:11)
[2018-04-13] MEDS ORDERED: DEXTROSE 5%-WATER 100 ML IVPB ONE ×2 (11:30→18:15)
[2018-04-13] MEDS ORDERED: PIPERACILLIN/TAZOBACTAM 2.25 GM VIAL IVPB ONE ×2 (11:30→18:15)
[2018-04-13] MEDS ORDERED: PT OWN MED DRAWER 7, Y5N ONE (11:30)
[2018-04-13] MEDS: CLOPIDOGREL BISULFATE 75 MG TABLET (FP) PO SCH (11:34)
[2018-04-13] MEDS: FOLIC ACID 1 MG TABLET (FP) PO SCH (11:34)
[2018-04-13] MEDS: CARVEDILOL 12.5 MG TABLET (FP) PO SCH ×3 (11:35→21:45)
[2018-04-13] MEDS: HEPARIN NA (PORCINE) 5,000 UNITS/ML 1ML VIAL SQ SCH ×2 (11:35→21:49)
[2018-04-13] MEDS: ASPIRIN COATED 81 MG TABLET.EC PO SCH (11:36)
[2018-04-13] MEDS: DIVALPROEX SODIUM 125 MG TABLET E.C. PO SCH ×2 (11:36→21:48)
[2018-04-13] MEDS: VITAMIN B COMPLEX W/C COMBO TABLET (FP) PO SCH (11:36)
[2018-04-13] MEDS: CITALOPRAM HYDROBROMIDE 20 MG TABLET (FP) PO SCH (11:37)
[2018-04-13] MEDS: ZINC OXIDE 20% TOPICAL OINTMENT 454 GM JAR TP SCH (11:38)
[2018-04-13] MEDS: RANITIDINE HCL 150 MG TABLET (FP) PO SCH (11:38)
[2018-04-13] MEDS: COLLAGENASE CLOSTRIDIUM HIST. 30 GRAMS TUBE TP SCH ×2 (18:10→18:24)
[2018-04-13] MEDS: DOCUSATE SODIUM 100 MG CAPSULE (FP) PO SCH (21:47)
[2018-04-13] MEDS: TAMSULOSIN HCL 0.4 MG CAP.ER.24H (FP) PO SCH (21:47)
[2018-04-13] MEDS: ATORVASTATIN CA 40 MG TABLET (FP) PO SCH (21:47)
[2018-04-13] MEDS: MIRTAZAPINE 15 MG TABLET (FP) PO SCH (21:47)
[2018-04-13] MEDS: HALOPERIDOL 1 MG TABLET (FP) PO SCH (21:48)
[2018-04-14] MEDS ORDERED: PIPERACILLIN/TAZOBACTAM 2.25 GM VIAL IVPB ONE ×3 (00:50→17:27)
[2018-04-14] MEDS ORDERED: DEXTROSE 5%-WATER 100 ML IVPB ONE ×3 (00:51→17:27)
[2018-04-14] MEDS: PIPERACILLIN/TAZOB 2.25 GM 2.25 GM in DEXTROSE 5%-WATER 100 ML IVPB SCH ×3 (01:17→17:42)
[2018-04-14] MEDS ORDERED: INSULIN (LEVEMIR) 100 UNITS/ML UNITS SQ ONE ×2 (04:58→21:05)
[2018-04-14] MEDS ORDERED: PT OWN MED DRAWER 7, Y5N ONE ×3 (04:59→21:06)
[2018-04-14] MEDS: GABAPENTIN 100 MG CAPSULE (FP) PO SCH ×3 (05:50→21:46)
[2018-04-14] MEDS: INSULIN SLIDING SCALE (NOVOLOG) 1 VIAL SQ SCH ×4 (06:11→21:52)
[2018-04-14] MEDS: CALCIUM ACETATE 667 MG CAPSULE (FP) PO SCH ×3 (08:43→17:43)
--- NOTE | 2018-04-14 10:48 | CON.CARD ---
Consult Consult Specialty:: Cardiology Referred by:: Dr. Dykes Reason for Consultation:: Cardiac evaluation and for cardiac clearance - History of Present Illness Chief Complaint: Heel ulcer History of Present Illness: Patient is a 72 year old male followed by Dr. Ángel Murguia of [facility] with underlying history of CAD, s/p NH, PCI/CABG, angina pectoris, HTN, hypercholesterolemia, DM, PAD s/p LE bypass, anemia, ESRD on HD and neurogenic bladder who presents with lower exteremity heel wound bilaterally and peripheral artery disease. He was seen by Dr. Augustin Schofield already who plans an angiogram and possible attempt to restore circulation. Cardiology consultation was called for clearance. He denies chest pain, SOB or palpitations. He denies paroxysmal nocturnal dyspnea or orthopnea. He denies fever or chills. He denies headache or lightheadedness. He denies nausea, vomiting, diarrhea or abdominal pain. 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: Yes: Peripheral Neuropathy Cardio/Vascular: Yes: CAD, CHF, HTN, NH, Hyperlipdemia Gastrointestinal: Yes: Constipation, GI Bleed Renal/: Yes: Renal Inusuff, Hemodialysis (M/W/F), Neurogenic Bladder Endocrine: Yes: Diabetes Mellitus - Past Surgical History Past Surgical History: Yes: AV Fistula/Graft, Bypass, CABG, Hernia Repair, Laminectomy, Stent - Alcohol/Substance Use Hx Alcohol Use: No History of Substance Use: reports: None - Smoking History Smoking history: Former smoker Have you smoked in the past 12 months: No If you are a former smoker, when did you quit?: 30YRS - Social History Usual Living Arrangement: Alf ADL: Support Services History of Recent Travel: No Home Medications - Allergies Allergies/Adverse Reactions: Allergies Allergy/AdvReac Type Severity Reaction Status Date / Time acetaminophen [From Percocet] Allergy Mild Hives Verified 03/28/18 20:49 oxycodone [From Percocet] Allergy Mild Hives Verified 03/28/18 20:49 - Home Medications Home Medications: Ambulatory Orders Carvedilol [Coreg -] 12.5 mg PO BID #60 tablet 12/18/17 Tamsulosin HCl [Flomax -] 0.4 mg PO HS #30 cap.er.24h 12/18/17 Amlodipine Besylate 10 mg PO DAILY 07/15/18 Aspirin [Adult Aspirin] 81 mg PO DAILY 02/17/18 Atorvastatin Ca [Lipitor] 40 mg PO HS 02/17/18 Collagenase Clostridium Hist. [Santyl -] 1 applic TP DAILY 02/17/18 Divalproex [Depakote -] 125 mg PO BID 02/17/18 Docusate Sodium 300 mg PO HS 02/17/18 Folic Acid 1 mg PO DAILY 02/17/18 Haloperidol 2 mg PO HS 02/17/18 Insulin Glargine,Hum.rec.anlog [Lantus Solostar] 10 unit SQ HS 02/17/18 Calcium Acetate [Phoslo -] 667 mg PO TIDCM 03/28/18 Citalopram Hydrobromide [Celexa -] 20 mg PO DAILY 03/28/18 Clopidogrel Bisulfate [Plavix -] 75 mg PO DAILY 03/28/18 Dextran 70/Hypromellose/Pf [Artificial Tears Drops] 1 each OU BID PRN 03/28/18 Famotidine 20 mg PO DAILY 03/28/18 Gabapentin [Neurontin -] 100 mg PO Q8H 03/28/18 Insulin Lispro [Humalog] unit SQ BID 03/28/18 LORazepam [Ativan] 0.5 mg PO ASDIR 03/28/18 Mirtazapine [Remeron -] 15 mg PO HS 03/28/18 Vitamin B Complex [Balance B-50] 1 each PO DAILY 03/28/18 Zinc Oxide 20% Topical Oint 454 gm NR ASDIR 03/28/18 Family Disease History - Family Disease History Family Disease History: CA: Mother, Sister Review of Systems - Review of Systems Constitutional: denies: Chills, Fever Cardiovascular: denies: Chest Pain, Palpitations, Shortness of Breath Respiratory: denies: Cough, Hemoptysis, Orthopnea, PND, SOB, SOB on Exertion Gastrointestinal: denies: Abdominal Pain, Constipation, Diarrhea, Melena, Nausea , Rectal Bleeding, Vomiting Genitourinary: denies: Dysuria, Hematuria Musculoskeletal: denies: Joint Pain Neurological: denies: Dizziness, Headache, Seizure, Syncope Vital Signs: Vital Signs Temperature 98.1 F 04/14/18 09:21 Pulse Rate 59 L 04/14/18 09:21 Respiratory Rate 17 04/14/18 09:21 Blood Pressure 138/56 04/14/18 09:21 O2 Sat by Pulse Oximetry (%) 100 04/13/18 20:48 Neck: Yes: Supple Respiratory: Yes: Regular, CTA Bilaterally Gastrointestinal: Yes: Normal Bowel Sounds, Soft. No: Tenderness Cardiovascular: Yes: Regular Rate and Rhythm JVD: No Carotid Bruit: No PMI: Non-Displaced Heart Sounds: Yes: S1, S2. No: Gallop Murmur: Yes: Systolic Murmur, Grade 1 Edema: No - Other Data Labs, Other Data: CBC, BMP 04/12/18 10:00 04/12/18 13:30 INR, PTT INR 1.20 (0.83-1.09) H 03/28/18 22:22 NSR, LVH (03/28/18) Problem List - Problems (1) Diabetes Code(s): E11.9 - TYPE 2 DIABETES MELLITUS WITHOUT COMPLICATIONS Qualifiers: 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 type: type 1 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 complication status: with circulatory complication (2) ESRD (end stage renal disease) on dialysis Code(s): N18.6 - END STAGE RENAL DISEASE; Z99.2 - DEPENDENCE ON RENAL DIALYSIS (3) Eschar of heel Code(s): R23.4 - CHANGES IN SKIN TEXTURE (4) Infected pressure ulcer Code(s): L89.90 - PRESSURE ULCER OF UNSPECIFIED SITE, UNSPECIFIED STAGE; L08.9 - LOCAL INFECTION OF THE SKIN AND SUBCUTANEOUS TISSUE, UNSP (5) Altered mental status, unspecified Code(s): R41.82 - ALTERED MENTAL STATUS, UNSPECIFIED Qualifiers: Altered mental status type: transient alteration of awareness Qualified Code(s): R40.4 - Transient alteration of awareness (6) Anemia Code(s): D64.9 - ANEMIA, UNSPECIFIED (7) CAD (coronary artery disease) Code(s): I25.10 - ATHSCL HEART DISEASE OF [place] CORONARY ARTERY W/O ANG PCTRS (8) CKD (chronic kidney disease) Code(s): N18.9 - CHRONIC KIDNEY DISEASE, UNSPECIFIED Qualifiers: Chronic kidney disease stage: unspecified stage Qualified Code(s): N18.9 - Chronic kidney disease, unspecified (9) Diastolic dysfunction Code(s): I51.9 - HEART DISEASE, UNSPECIFIED (10) HTN (hypertension) Code(s): I10 - ESSENTIAL (PRIMARY) HYPERTENSION Qualifiers: Hypertension type: essential hypertension Qualified Code(s): I10 - Essential (primary) hypertension (11) Hx of CABG Code(s): Z95.1 - PRESENCE OF AORTOCORONARY BYPASS GRAFT (12) Hypercholesterolemia Code(s): E78.00 - PURE HYPERCHOLESTEROLEMIA, UNSPECIFIED (13) PAD (peripheral artery disease) Code(s): I73.9 - PERIPHERAL VASCULAR DISEASE, UNSPECIFIED (14) Acute on chronic diastolic heart failure Code(s): I50.33 - ACUTE ON CHRONIC DIASTOLIC (CONGESTIVE) HEART FAILURE Assessment/Plan 1. PAD s/p LE bypass, heel wound (non healing) suggest progressive peripheral artery disease 2. HTN 3. Hypercholesterolemia 4. DM 5. Diastolic LV dysfunction with class 0 NYHA classification LV failure 6. CAD s/p CABG, PCI/stent, demand ischemia 7. ESRD on HD PLAN: 1. No absolute contraindication in proceeding with vascular intervention in view of absence of ischemic symptoms, decompensated congestive heart failure or malignant arrhythmias. Post operative ECG and cardiac enzymes 2. Continue Carvedilol 3. ASA and Plavix 4. Atorvastatin 5. Antibiotics 6. Wound care Further plans are to follow Magno Hernandez MD
[2018-04-14] MEDS: COLLAGENASE CLOSTRIDIUM HIST. 30 GRAMS TUBE TP SCH (11:01)
[2018-04-14] MEDS: VITAMIN B COMPLEX W/C COMBO TABLET (FP) PO SCH (11:01)
[2018-04-14] MEDS: ASPIRIN COATED 81 MG TABLET.EC PO SCH (11:01)
[2018-04-14] MEDS: CLOPIDOGREL BISULFATE 75 MG TABLET (FP) PO SCH (11:01)
[2018-04-14] MEDS: CITALOPRAM HYDROBROMIDE 20 MG TABLET (FP) PO SCH (11:01)
[2018-04-14] MEDS: ZINC OXIDE 20% TOPICAL OINTMENT 454 GM JAR TP SCH (11:01)
[2018-04-14] MEDS: HEPARIN NA (PORCINE) 5,000 UNITS/ML 1ML VIAL SQ SCH ×2 (11:02→21:46)
[2018-04-14] MEDS: FOLIC ACID 1 MG TABLET (FP) PO SCH (11:02)
[2018-04-14] MEDS: CARVEDILOL 12.5 MG TABLET (FP) PO SCH ×2 (11:02→21:45)
[2018-04-14] MEDS: RANITIDINE HCL 150 MG TABLET (FP) PO SCH (11:02)
[2018-04-14] MEDS ORDERED: INSULIN (LEVEMIR) 100 UNITS/ML UNITS SQ SCH (11:03)
--- NOTE | 2018-04-14 11:03 | PN ---
Progress Note (short form) - Note Progress Note: - Note Progress Note: Patient seen and examined with Dr Daniel- Podiatry comfortable confused Vital Signs - 24 hr 04/13/18 04/13/18 04/13/18 14:39 17:34 20:47 Temperature 97.4 F L 97.6 F Pulse Rate 56 L 56 L 57 L Respiratory 20 20 18 Rate Blood Pressure 114/50 135/54 116/56 O2 Sat by Pulse Oximetry (%) 04/13/18 04/14/18 04/14/18 20:48 01:00 06:34 Temperature 97.9 F 98.5 F Pulse Rate 55 L 56 L Respiratory 18 18 Rate Blood Pressure 139/51 135/56 O2 Sat by Pulse 100 Oximetry (%) 04/14/18 09:21 Temperature 98.1 F Pulse Rate 59 L Respiratory 17 Rate Blood Pressure 138/56 O2 Sat by Pulse Oximetry (%) Current Medications Generic Name Dose Route Start Last Admin Trade Name Freq PRN Reason Stop Dose Admin Acetaminophen 650 mg 04/02/18 15:12 04/06/18 22:21 Tylenol - PO 650 mg Q6H PRN Administration PAIN LEVEL 1-5 Artificial Tears 1 drop 04/02/18 15:12 Artificial Tears OU Q12H PRN DRY EYES Aspirin 81 mg 04/03/18 10:00 04/13/18 11:36 Ecotrin - PO 81 mg DAILY ROSIE Administration Atorvastatin Calcium 40 mg 04/02/18 22:00 04/13/18 21:47 Lipitor - PO 40 mg HS ROSIE Administration Calcium Acetate 667 mg 04/02/18 17:30 04/14/18 08:43 Phoslo - PO 667 mg TIDCM ROSIE Administration Carvedilol 12.5 mg 04/02/18 22:00 04/13/18 21:45 Coreg - PO Not Given BID ROSIE Citalopram Hydrobromide 20 mg 04/03/18 10:00 04/13/18 11:37 Celexa - PO 20 mg DAILY ROSIE Administration Clopidogrel Bisulfate 75 mg 04/03/18 10:00 04/13/18 11:34 Plavix - PO 75 mg DAILY ROSIE Administration Collagenase 1 applic 04/10/18 19:30 04/13/18 18:24 Santyl - TP 1 applic DAILY ROSIE Administration Protocol Divalproex Sodium 125 mg 04/02/18 22:00 04/13/18 21:48 Depakote - PO 125 mg BID ROSIE Administration Docusate Sodium 300 mg 04/02/18 22:00 04/13/18 21:47 Colace - PO 300 mg HS ROSIE Administration Folic Acid 1 mg 04/03/18 10:00 04/13/18 11:34 Folic Acid - PO 1 mg DAILY ROSIE Administration Gabapentin 100 mg 04/02/18 22:00 04/14/18 05:50 Neurontin - PO 100 mg TID ROSIE Administration Haloperidol 2 mg 04/02/18 22:00 04/13/18 21:48 Haldol - PO 2 mg HS ROSIE Administration Heparin Sodium (Porcine) 5,000 unit 04/10/18 10:00 04/13/18 21:49 Heparin - SQ 5,000 unit BID ROSIE Administration Piperacillin Sod/Tazobactam 100 mls @ 100 mls/hr 04/05/18 02:00 04/14/18 01: 17 Sod 2.25 gm/ Dextrose IVPB 100 mls/hr Q8H-IV ROSIE Administration Protocol Insulin Aspart 1 vial 04/02/18 16:30 04/14/18 06:11 Novolog Vial Sliding Scale - SQ Not Given ACHS [facility] Protocol Insulin Detemir 24 units 04/13/18 10:33 04/13/18 21:49 Levemir Vial SQ 24 unit HS ROSIE Administration Mirtazapine 7.5 mg 04/11/18 12:21 04/13/18 21:47 Remeron - PO 7.5 mg HS ROSIE Administration Multi-Ingredient Ointment 1 gm 04/03/18 10:00 04/13/18 11:38 Zinc Oxide 20% Topical Oint TP 1 applic DAILY ROSIE Administration Multivitamins 1 each 04/03/18 10:00 04/13/18 11:36 Total B With C - PO 1 each DAILY ROSIE Administration Ranitidine HCl 150 mg 04/03/18 10:00 04/13/18 11:38 Zantac - PO 150 mg DAILY ROSIE Administration Tamsulosin HCl 0.4 mg 04/02/18 22:00 04/13/18 21:47 Flomax - PO 0.4 mg HS ROSIE Administration Laboratory Results - last 24 hr 04/13/18 04/13/18 04/13/18 11:57 17:47 20:46 POC Glucometer 84 266 250 04/14/18 05:47 POC Glucometer 161 exam- Constitutional: Yes: No Distress, Comfortable. Neck: Yes: Supple. no jvd Cardiovascular: Yes: Regular Rate and Rhythm Respiratory: Yes: Diminished Gastrointestinal: Yes: Soft/ non tender Edema: No Wound/Incision: Yes: Bilateral heel ulcers -- necrotic and foul smelling, tender , feet are warm Neurological: Yes: Alert Psychiatric: Yes: Alert,calm Assessment/Plan clinically stable Continue present care abx-- Zosyn bone scan-ve Arterial doppler-- Atherosclerotic disease monitor bgm-- increase Levemir dialysis per renal for OR tomorrow - angiogram Seen b Cardiology today Cleared medically for angiogram Problem List - Problems (1) Diabetes Code(s): E11.9 - TYPE 2 DIABETES MELLITUS WITHOUT COMPLICATIONS Qualifiers: 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 type: type 1 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 complication status: with circulatory complication (2) ESRD (end stage renal disease) on dialysis Code(s): N18.6 - END STAGE RENAL DISEASE; Z99.2 - DEPENDENCE ON RENAL DIALYSIS (3) Infected pressure ulcer Code(s): L89.90 - PRESSURE ULCER OF UNSPECIFIED SITE, UNSPECIFIED STAGE; L08.9 - LOCAL INFECTION OF THE SKIN AND SUBCUTANEOUS TISSUE, UNSP (4) Syncope Code(s): R55 - SYNCOPE AND COLLAPSE (5) Acute metabolic encephalopathy due to hypoglycemia Code(s): G93.41 - METABOLIC ENCEPHALOPATHY; E16.2 - HYPOGLYCEMIA, UNSPECIFIED (6) Anemia Code(s): D64.9 - ANEMIA, UNSPECIFIED (7) CAD (coronary artery disease) Code(s): I25.10 - ATHSCL HEART DISEASE OF [place] CORONARY ARTERY W/O ANG PCTRS (8) ESRD (end stage renal disease) on dialysis Code(s): N18.6 - END STAGE RENAL DISEASE; Z99.2 - DEPENDENCE ON RENAL DIALYSIS
[2018-04-14] MEDS: DIVALPROEX SODIUM 125 MG TABLET E.C. PO SCH ×2 (11:09→21:46)
--- NOTE | 2018-04-14 11:17 | PN ---
Progress Note, Physician Chief Complaint: Patient seen resting comfortably for necrotic decubiti ulceration bilateral heel. - Current Medication List Current Medications: Active Medications Acetaminophen (Tylenol -) 650 mg PO Q6H PRN PRN Reason: PAIN LEVEL 1-5 Last Admin: 04/06/18 22:21 Dose: 650 mg Artificial Tears (Artificial Tears) 1 drop OU Q12H PRN PRN Reason: DRY EYES Aspirin (Ecotrin -) 81 mg PO DAILY [facility] Last Admin: 04/14/18 11:01 Dose: 81 mg Atorvastatin Calcium (Lipitor -) 40 mg PO HS [facility] Last Admin: 04/13/18 21:47 Dose: 40 mg Calcium Acetate (Phoslo -) 667 mg PO TIDCM [facility] Last Admin: 04/14/18 08:43 Dose: 667 mg Carvedilol (Coreg -) 12.5 mg PO BID [facility] Last Admin: 04/14/18 11:02 Dose: 12.5 mg Citalopram Hydrobromide (Celexa -) 20 mg PO DAILY [facility] Last Admin: 04/14/18 11:01 Dose: 20 mg Clopidogrel Bisulfate (Plavix -) 75 mg PO DAILY [facility] Last Admin: 04/14/18 11:01 Dose: 75 mg Collagenase (Santyl -) 1 applic TP DAILY [facility]; Protocol Last Admin: 04/14/18 11:01 Dose: 1 applic Divalproex Sodium (Depakote -) 125 mg PO BID [facility] Last Admin: 04/14/18 11:09 Dose: 125 mg Docusate Sodium (Colace -) 300 mg PO [facility] Last Admin: 04/13/18 21:47 Dose: 300 mg Folic Acid (Folic Acid -) 1 mg PO DAILY [facility] Last Admin: 04/14/18 11:02 Dose: 1 mg Gabapentin (Neurontin -) 100 mg PO TID [facility] Last Admin: 04/14/18 05:50 Dose: 100 mg Haloperidol (Haldol -) 2 mg PO HS [facility] Last Admin: 04/13/18 21:48 Dose: 2 mg Heparin Sodium (Porcine) (Heparin -) 5,000 unit SQ BID [facility] Last Admin: 04/14/18 11:02 Dose: 5,000 unit Piperacillin Sod/Tazobactam (Sod 2.25 gm/ Dextrose) 100 mls @ 100 mls/hr IVPB Q8H-IV [facility]; Protocol Last Admin: 04/14/18 11:01 Dose: 100 mls/hr Insulin Aspart (Novolog Vial Sliding Scale -) 1 vial SQ [facility]; Protocol Last Admin: 04/14/18 06:11 Dose: Not Given Insulin Detemir (Levemir Vial) 26 units SQ HS [facility] Mirtazapine (Remeron -) 7.5 mg PO HS [facility] Last Admin: 04/13/18 21:47 Dose: 7.5 mg Multi-Ingredient Ointment (Zinc Oxide 20% Topical Oint) 1 gm TP DAILY [facility] Last Admin: 04/14/18 11:01 Dose: 1 applic Multivitamins (Total B With C -) 1 each PO DAILY [facility] Last Admin: 04/14/18 11:01 Dose: 1 each Ranitidine HCl (Zantac -) 150 mg PO DAILY [facility] Last Admin: 04/14/18 11:02 Dose: 150 mg Tamsulosin HCl (Flomax -) 0.4 mg PO [facility] Last Admin: 04/13/18 21:47 Dose: 0.4 mg - Objective Vital Signs: Vital Signs Temperature 98.1 F 04/14/18 09:21 Pulse Rate 59 L 04/14/18 09:21 Respiratory Rate 17 04/14/18 09:21 Blood Pressure 138/56 04/14/18 09:21 O2 Sat by Pulse Oximetry (%) 100 04/13/18 20:48 Extremities: Yes: Other (Necrotic decubiti ulceration bilateral heel. Size unchanged. No granulation tissue noted bilaterally. Malodor right foot. No drainage expressed. No improvement.) Edema: No Peripheral Pulses WNL: No (DP and PT non-palpable bilaterally.) Labs: CBC, BMP 04/12/18 10:00 04/12/18 13:30 INR, PTT INR 1.20 (0.83-1.09) H 03/28/18 22:22 Problem List - Problems (1) Diabetes Code(s): E11.9 - TYPE 2 DIABETES MELLITUS WITHOUT COMPLICATIONS Qualifiers: 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 type: type 1 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 complication status: with circulatory complication (2) ESRD (end stage renal disease) on dialysis Code(s): N18.6 - END STAGE RENAL DISEASE; Z99.2 - DEPENDENCE ON RENAL DIALYSIS (3) Eschar of heel Code(s): R23.4 - CHANGES IN SKIN TEXTURE (4) Fever Code(s): R50.9 - FEVER, UNSPECIFIED (5) Infected pressure ulcer Code(s): L89.90 - PRESSURE ULCER OF UNSPECIFIED SITE, UNSPECIFIED STAGE; L08.9 - LOCAL INFECTION OF THE SKIN AND SUBCUTANEOUS TISSUE, UNSP Assessment Plan - Diagnosis (1) Diabetes Status: Acute Qualifiers: 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 type: type 1 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 complication status: with circulatory complication (2) ESRD (end stage renal disease) on dialysis Status: Acute (3) Eschar of heel Status: Acute (4) Fever Status: Acute (5) Infected pressure ulcer Status: Acute - Plan Plan: Agree with Dr. Schofield for angiogram and revascularization. Collagenase dressing applied bilateral heel after aseptic cleansing. Continue IVAB.
--- NOTE | 2018-04-14 11:56 | PN ---
Progress Note (short form) - Note Progress Note: For angiogram tomorrow. Discussed with Problem List - Problems (1) PAD (peripheral artery disease) Code(s): I73.9 - PERIPHERAL VASCULAR DISEASE, UNSPECIFIED
--- NOTE | 2018-04-14 15:48 | PN ---
Progress Note (short form) - Note Progress Note: 1. ESRD 2. anemia 3. HTN 4. Chol 5. DM 6. BPH 7. CAD 8. hypoglycemia 9. CHF 10. syncope 11. depression Current Medications Acetaminophen (Tylenol -) 650 mg PO Q6H PRN PRN Reason: PAIN LEVEL 1-5 Last Admin: 04/06/18 22:21 Dose: 650 mg Artificial Tears (Artificial Tears) 1 drop OU Q12H PRN PRN Reason: DRY EYES Aspirin (Ecotrin -) 81 mg PO DAILY [facility] Last Admin: 04/14/18 11:01 Dose: 81 mg Atorvastatin Calcium (Lipitor -) 40 mg PO HS [facility] Last Admin: 04/13/18 21:47 Dose: 40 mg Calcium Acetate (Phoslo -) 667 mg PO TIDCM [facility] Last Admin: 04/14/18 13:50 Dose: 667 mg Carvedilol (Coreg -) 12.5 mg PO BID [facility] Last Admin: 04/14/18 11:02 Dose: 12.5 mg Citalopram Hydrobromide (Celexa -) 20 mg PO DAILY [facility] Last Admin: 04/14/18 11:01 Dose: 20 mg Clopidogrel Bisulfate (Plavix -) 75 mg PO DAILY [facility] Last Admin: 04/14/18 11:01 Dose: 75 mg Collagenase (Santyl -) 1 applic TP DAILY [facility]; Protocol Last Admin: 04/14/18 11:01 Dose: 1 applic Divalproex Sodium (Depakote -) 125 mg PO BID [facility] Last Admin: 04/14/18 11:09 Dose: 125 mg Docusate Sodium (Colace -) 300 mg PO HS [facility] Last Admin: 04/13/18 21:47 Dose: 300 mg Folic Acid (Folic Acid -) 1 mg PO DAILY [facility] Last Admin: 04/14/18 11:02 Dose: 1 mg Gabapentin (Neurontin -) 100 mg PO TID [facility] Last Admin: 04/14/18 13:50 Dose: 100 mg Haloperidol (Haldol -) 2 mg PO HS [facility] Last Admin: 04/13/18 21:48 Dose: 2 mg Heparin Sodium (Porcine) (Heparin -) 5,000 unit SQ BID [facility] Last Admin: 04/14/18 11:02 Dose: 5,000 unit Piperacillin Sod/Tazobactam (Sod 2.25 gm/ Dextrose) 100 mls @ 100 mls/hr IVPB Q8H-IV [facility]; Protocol Last Admin: 04/14/18 11:01 Dose: 100 mls/hr Insulin Aspart (Novolog Vial Sliding Scale -) 1 vial SQ ACHS [facility]; Protocol Last Admin: 04/14/18 13:50 Dose: Not Given Insulin Detemir (Levemir Vial) 26 units SQ HS [facility] Mirtazapine (Remeron -) 7.5 mg PO HS [facility] Last Admin: 04/13/18 21:47 Dose: 7.5 mg Multi-Ingredient Ointment (Zinc Oxide 20% Topical Oint) 1 gm TP DAILY [facility] Last Admin: 04/14/18 11:01 Dose: 1 applic Multivitamins (Total B With C -) 1 each PO DAILY [facility] Last Admin: 04/14/18 11:01 Dose: 1 each Ranitidine HCl (Zantac -) 150 mg PO DAILY [facility] Last Admin: 04/14/18 11:02 Dose: 150 mg Tamsulosin HCl (Flomax -) 0.4 mg PO [facility] Last Admin: 04/13/18 21:47 Dose: 0.4 mg Last Vital Signs Temp Pulse Resp BP Pulse Ox 97.5 F L 64 20 145/60 100 04/14/18 15:10 04/14/18 15:10 04/14/18 15:10 04/14/18 15:10 04/13/18 20:48 alert in nad lungs clear heart reg abd soft nontender ext no edema CBC, BMP 04/12/18 10:00 04/12/18 13:30 IMP esrd no fluid overload Plan- HD in am
[2018-04-14] MEDS ORDERED: SODIUM CHLORIDE 250 ML IV PRN (15:50)
[2018-04-14] MEDS ORDERED: INSULIN (NOVOLOG) ASPART 100 UNITS/ML 10ML VIAL ONE ×2 (17:46→21:06)
[2018-04-14] MEDS: HALOPERIDOL 1 MG TABLET (FP) PO SCH (21:44)
[2018-04-14] MEDS: ATORVASTATIN CA 40 MG TABLET (FP) PO SCH (21:45)
[2018-04-14] MEDS: MIRTAZAPINE 15 MG TABLET (FP) PO SCH (21:45)
[2018-04-14] MEDS: TAMSULOSIN HCL 0.4 MG CAP.ER.24H (FP) PO SCH (21:45)
[2018-04-14] MEDS: DOCUSATE SODIUM 100 MG CAPSULE (FP) PO SCH (21:45)
[2018-04-15] MEDS ORDERED: PIPERACILLIN/TAZOBACTAM 2.25 GM VIAL IVPB ONE ×2 (02:06→09:35)
[2018-04-15] MEDS ORDERED: DEXTROSE 5%-WATER 100 ML IVPB ONE ×2 (02:06→09:35)
[2018-04-15] MEDS: PIPERACILLIN/TAZOB 2.25 GM 2.25 GM in DEXTROSE 5%-WATER 100 ML IVPB SCH ×3 (02:11→19:23)
[2018-04-15] MEDS: GABAPENTIN 100 MG CAPSULE (FP) PO SCH ×3 (05:10→23:31)
[2018-04-15] MEDS: INSULIN SLIDING SCALE (NOVOLOG) 1 VIAL SQ SCH ×4 (06:05→23:57)
[2018-04-15] MEDS ORDERED: INSULIN (LEVEMIR) 100 UNITS/ML UNITS SQ ONE (06:52)
[2018-04-15 07:31] LABS: HEMATOCRIT 27.1 % (35.4-49); HEMOGLOBIN 9.1 GM/dL (11.7-16.9); MCH 32.6 pg (25.7-33.7); MCHC 33.7 g/dl (32.0-35.9); MEAN CELL VOLUME 96.7 fl (80-96); MEAN PLT VOLUME 6.4 fl (7.5-11.1); PLATELET COUNT 424 K/MM3 (134-434); RDW 16.1 % (11.9-15.9); WHITE BLOOD COUNT 9.6 K/mm3 (4.0-10.0)
[2018-04-15 08:01] LABS: BLOOD UREA NITROGEN 81 mg/dL (7-18); CHLORIDE 98 mmol/L (98-107); GLUCOSE,RANDOM 200 mg/dL (74-106); POTASSIUM 4.9 mmol/L (3.5-5.1); SGOT/AST 17 U/L (15-37); SODIUM 139 mmol/L (136-145)
[2018-04-15 08:04] LABS: ALK PHOS 79 U/L (45-117); ANION GAP 12 MMOL/L (8-16); BILIRUBIN,TOTAL 0.3 mg/dL (0.2-1.0); CO2 29 mmol/L (21-32); CREATININE 7.1 mg/dL (0.7-1.3); SGPT/ALT 23 U/L (12-78); TOT PROT 6.3 g/dl (6.4-8.2)
[2018-04-15] MEDS: CALCIUM ACETATE 667 MG CAPSULE (FP) PO SCH ×3 (09:41→17:20)
[2018-04-15] MEDS: ASPIRIN COATED 81 MG TABLET.EC PO SCH (09:42)
[2018-04-15] MEDS: VITAMIN B COMPLEX W/C COMBO TABLET (FP) PO SCH (09:42)
[2018-04-15] MEDS: FOLIC ACID 1 MG TABLET (FP) PO SCH (09:42)
[2018-04-15] MEDS: CARVEDILOL 12.5 MG TABLET (FP) PO SCH ×2 (09:42→23:32)
[2018-04-15] MEDS: CITALOPRAM HYDROBROMIDE 20 MG TABLET (FP) PO SCH (09:42)
[2018-04-15] MEDS: RANITIDINE HCL 150 MG TABLET (FP) PO SCH (09:42)
[2018-04-15] MEDS: DIVALPROEX SODIUM 125 MG TABLET E.C. PO SCH ×2 (09:43→23:34)
[2018-04-15] MEDS: CLOPIDOGREL BISULFATE 75 MG TABLET (FP) PO SCH (09:44)
[2018-04-15] MEDS: COLLAGENASE CLOSTRIDIUM HIST. 30 GRAMS TUBE TP SCH (09:46)
[2018-04-15] MEDS: ZINC OXIDE 20% TOPICAL OINTMENT 454 GM JAR TP SCH (10:27)
[2018-04-15] MEDS ORDERED: INSULIN (LEVEMIR) 100 UNITS/ML UNITS SQ SCH (10:33)
--- NOTE | 2018-04-15 10:34 | PN ---
Progress Note (short form) - Note Progress Note: pt seen/ examined chart reviewed comfortable overall condition same afebrile for angiogram today Vital Signs Temp 97.6 F 04/15/18 04:00 Pulse 59 L 04/15/18 04:00 Resp 20 04/15/18 04:00 BP 136/53 04/15/18 04:00 Pulse Ox 99 04/14/18 20:50 Intake & Output 04/14/18 04/14/18 04/15/18 11:59 23:59 11:59 Intake Total 100 700 100 Balance 100 700 100 Weight 154 lb 157 lb 6.4 oz Intake: IVPB 100 100 Oral 700 Other: Voiding Method Incontinent Incontinent # Unmeasured Voids Void 2 Bowel Movement Yes # Bowel Movements 1 Weight Measurement Method Patient Lift Scale Patient Lift Scale Active Medications Acetaminophen (Tylenol -) 650 mg PO Q6H PRN PRN Reason: PAIN LEVEL 1-5 Last Admin: 04/06/18 22:21 Dose: 650 mg Artificial Tears (Artificial Tears) 1 drop OU Q12H PRN PRN Reason: DRY EYES Aspirin (Ecotrin -) 81 mg PO DAILY [facility] Last Admin: 04/15/18 09:42 Dose: 81 mg Atorvastatin Calcium (Lipitor -) 40 mg PO [facility] Last Admin: 04/14/18 21:45 Dose: 40 mg Calcium Acetate (Phoslo -) 667 mg PO TIDCM [facility] Last Admin: 04/15/18 09:41 Dose: 667 mg Carvedilol (Coreg -) 12.5 mg PO BID [facility] Last Admin: 04/15/18 09:42 Dose: 12.5 mg Citalopram Hydrobromide (Celexa -) 20 mg PO DAILY [facility] Last Admin: 04/15/18 09:42 Dose: 20 mg Clopidogrel Bisulfate (Plavix -) 75 mg PO DAILY [facility] Last Admin: 04/15/18 09:44 Dose: Not Given Collagenase (Santyl -) 1 applic TP DAILY [facility]; Protocol Last Admin: 04/15/18 09:46 Dose: 1 applic Divalproex Sodium (Depakote -) 125 mg PO BID [facility] Last Admin: 04/15/18 09:43 Dose: 125 mg Docusate Sodium (Colace -) 300 mg PO [facility] Last Admin: 04/14/18 21:45 Dose: 300 mg Folic Acid (Folic Acid -) 1 mg PO DAILY [facility] Last Admin: 04/15/18 09:42 Dose: 1 mg Gabapentin (Neurontin -) 100 mg PO TID [facility] Last Admin: 04/15/18 05:10 Dose: Not Given Haloperidol (Haldol -) 2 mg PO HS [facility] Last Admin: 04/14/18 21:44 Dose: 2 mg Heparin Sodium (Porcine) (Heparin -) 5,000 unit SQ BID [facility] Last Admin: 04/14/18 21:46 Dose: 5,000 unit Piperacillin Sod/Tazobactam (Sod 2.25 gm/ Dextrose) 100 mls @ 100 mls/hr IVPB Q8H-IV [facility]; Protocol Last Admin: 04/15/18 09:41 Dose: 100 mls/hr Sodium Chloride (Normal Saline -) 250 mls @ 3,000 mls/hr IV PRN PRN PRN Reason: Hypotension during Dialysis Stop: 04/15/18 15:50 Insulin Aspart (Novolog Vial Sliding Scale -) 1 vial SQ [facility]; Protocol Last Admin: 04/15/18 06:05 Dose: Not Given Insulin Detemir (Levemir Vial) 30 units SQ [facility] Mirtazapine (Remeron -) 7.5 mg PO [facility] Last Admin: 04/14/18 21:45 Dose: 7.5 mg Multi-Ingredient Ointment (Zinc Oxide 20% Topical Oint) 1 gm TP DAILY [facility] Last Admin: 04/15/18 10:27 Dose: 1 applic Multivitamins (Total B With C -) 1 each PO DAILY [facility] Last Admin: 04/15/18 09:42 Dose: 1 each Ranitidine HCl (Zantac -) 150 mg PO DAILY [facility] Last Admin: 04/15/18 09:42 Dose: 150 mg Tamsulosin HCl (Flomax -) 0.4 mg PO [facility] Last Admin: 04/14/18 21:45 Dose: 0.4 mg CBC, BMP 04/15/18 06:30 04/15/18 06:30 bgb -- noted -- Mainly 200s . Physical Exam. Constitutional: Yes: No Distress, Comfortable. Neck: Yes: Supple. no jvd Cardiovascular: Yes: Regular Rate and Rhythm Respiratory: Yes: Diminished Gastrointestinal: Yes: Soft/ non tender. bs + Edema: No Wound/Incision: Yes: Bilateral heel ulcers -- necrotic and foul smelling, tender , feet are warm Neurological: Yes: Alert Psychiatric: Yes: Alert,calm Assessment/Plan clinically stable Continue present care abx-- Zosyn bone scan-ve Arterial doppler-- Atherosclerotic disease monitor bgm-- increase Levemir dialysis per renal for - angiogram today will follow Problem List - Problems (1) Diabetes Code(s): E11.9 - TYPE 2 DIABETES MELLITUS WITHOUT COMPLICATIONS Qualifiers: 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 type: type 1 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 complication status: with circulatory complication (2) ESRD (end stage renal disease) on dialysis Code(s): N18.6 - END STAGE RENAL DISEASE; Z99.2 - DEPENDENCE ON RENAL DIALYSIS (3) Infected pressure ulcer Code(s): L89.90 - PRESSURE ULCER OF UNSPECIFIED SITE, UNSPECIFIED STAGE; L08.9 - LOCAL INFECTION OF THE SKIN AND SUBCUTANEOUS TISSUE, UNSP (4) Syncope Code(s): R55 - SYNCOPE AND COLLAPSE (5) Acute metabolic encephalopathy due to hypoglycemia Code(s): G93.41 - METABOLIC ENCEPHALOPATHY; E16.2 - HYPOGLYCEMIA, UNSPECIFIED (6) Anemia Code(s): D64.9 - ANEMIA, UNSPECIFIED (7) CAD (coronary artery disease) Code(s): I25.10 - ATHSCL HEART DISEASE OF [place] CORONARY ARTERY W/O ANG PCTRS (8) ESRD (end stage renal disease) on dialysis Code(s): N18.6 - END STAGE RENAL DISEASE; Z99.2 - DEPENDENCE ON RENAL DIALYSIS
--- NOTE | 2018-04-15 11:56 | PN ---
Progress Note, Physician History of Present Illness: Planned for RLE angiogram. Denies chest pain or dyspnea. - Current Medication List Current Medications: Active Medications Acetaminophen (Tylenol -) 650 mg PO Q6H PRN PRN Reason: PAIN LEVEL 1-5 Last Admin: 04/06/18 22:21 Dose: 650 mg Artificial Tears (Artificial Tears) 1 drop OU Q12H PRN PRN Reason: DRY EYES Aspirin (Ecotrin -) 81 mg PO DAILY [facility] Last Admin: 04/15/18 09:42 Dose: 81 mg Atorvastatin Calcium (Lipitor -) 40 mg PO HS [facility] Last Admin: 04/14/18 21:45 Dose: 40 mg Calcium Acetate (Phoslo -) 667 mg PO TIDCM [facility] Last Admin: 04/15/18 09:41 Dose: 667 mg Carvedilol (Coreg -) 12.5 mg PO BID [facility] Last Admin: 04/15/18 09:42 Dose: 12.5 mg Citalopram Hydrobromide (Celexa -) 20 mg PO DAILY [facility] Last Admin: 04/15/18 09:42 Dose: 20 mg Clopidogrel Bisulfate (Plavix -) 75 mg PO DAILY [facility] Last Admin: 04/15/18 09:44 Dose: Not Given Collagenase (Santyl -) 1 applic TP DAILY [facility]; Protocol Last Admin: 04/15/18 09:46 Dose: 1 applic Divalproex Sodium (Depakote -) 125 mg PO BID [facility] Last Admin: 04/15/18 09:43 Dose: 125 mg Docusate Sodium (Colace -) 300 mg PO HS [facility] Last Admin: 04/14/18 21:45 Dose: 300 mg Folic Acid (Folic Acid -) 1 mg PO DAILY [facility] Last Admin: 04/15/18 09:42 Dose: 1 mg Gabapentin (Neurontin -) 100 mg PO TID [facility] Last Admin: 04/15/18 05:10 Dose: Not Given Haloperidol (Haldol -) 2 mg PO HS [facility] Last Admin: 04/14/18 21:44 Dose: 2 mg Heparin Sodium (Porcine) (Heparin -) 5,000 unit SQ BID [facility] Last Admin: 04/14/18 21:46 Dose: 5,000 unit Piperacillin Sod/Tazobactam (Sod 2.25 gm/ Dextrose) 100 mls @ 100 mls/hr IVPB Q8H-IV [facility]; Protocol Last Admin: 04/15/18 09:41 Dose: 100 mls/hr Sodium Chloride (Normal Saline -) 250 mls @ 3,000 mls/hr IV PRN PRN PRN Reason: Hypotension during Dialysis Stop: 04/15/18 15:50 Insulin Aspart (Novolog Vial Sliding Scale -) 1 vial SQ [facility]; Protocol Last Admin: 04/15/18 06:05 Dose: Not Given Insulin Detemir (Levemir Vial) 30 units SQ [facility] Mirtazapine (Remeron -) 7.5 mg PO HS [facility] Last Admin: 04/14/18 21:45 Dose: 7.5 mg Multi-Ingredient Ointment (Zinc Oxide 20% Topical Oint) 1 gm TP DAILY [facility] Last Admin: 04/15/18 10:27 Dose: 1 applic Multivitamins (Total B With C -) 1 each PO DAILY [facility] Last Admin: 04/15/18 09:42 Dose: 1 each Ranitidine HCl (Zantac -) 150 mg PO DAILY [facility] Last Admin: 04/15/18 09:42 Dose: 150 mg Tamsulosin HCl (Flomax -) 0.4 mg PO [facility] Last Admin: 04/14/18 21:45 Dose: 0.4 mg - Objective Vital Signs: Vital Signs Temperature 97.6 F 04/15/18 04:00 Pulse Rate 59 L 04/15/18 04:00 Respiratory Rate 20 04/15/18 04:00 Blood Pressure 136/53 04/15/18 04:00 O2 Sat by Pulse Oximetry (%) 99 04/14/18 20:50 Constitutional: Yes: No Distress, Calm, Thin Neck: Yes: Supple Cardiovascular: Yes: Regular Rate and Rhythm Respiratory: Yes: Regular, Diminished, On Nasal O2 Gastrointestinal: Yes: Normal Bowel Sounds, Soft Edema: No Labs: CBC, BMP 04/15/18 06:30 04/15/18 06:30 INR, PTT INR 1.20 (0.83-1.09) H 03/28/18 22:22 Problem List - Problems (1) Pre-operative cardiovascular examination Code(s): Z01.810 - ENCOUNTER FOR PREPROCEDURAL CARDIOVASCULAR EXAMINATION (2) Diabetes Code(s): E11.9 - TYPE 2 DIABETES MELLITUS WITHOUT COMPLICATIONS Qualifiers: 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 type: type 1 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 complication status: with circulatory complication (3) ESRD (end stage renal disease) on dialysis Code(s): N18.6 - END STAGE RENAL DISEASE; Z99.2 - DEPENDENCE ON RENAL DIALYSIS (4) Eschar of heel Code(s): R23.4 - CHANGES IN SKIN TEXTURE (5) CAD (coronary artery disease) Code(s): I25.10 - ATHSCL HEART DISEASE OF [place] CORONARY ARTERY W/O ANG PCTRS (6) CHF (congestive heart failure) Code(s): I50.9 - HEART FAILURE, UNSPECIFIED (7) CAD (coronary artery disease) Code(s): I25.10 - ATHSCL HEART DISEASE OF [place] CORONARY ARTERY W/O ANG PCTRS Qualifiers: Coronary Disease-Associated Artery/Lesion type: [place] artery [place] vs. transplanted heart: [place] heart Associated angina: without angina Qualified Code(s): I25.10 - Atherosclerotic heart disease of [place] coronary artery without angina pectoris (8) HTN (hypertension) Code(s): I10 - ESSENTIAL (PRIMARY) HYPERTENSION Qualifiers: Hypertension type: essential hypertension Qualified Code(s): I10 - Essential (primary) hypertension (9) Hx of CABG Code(s): Z95.1 - PRESENCE OF AORTOCORONARY BYPASS GRAFT (10) Hypercholesterolemia Code(s): E78.00 - PURE HYPERCHOLESTEROLEMIA, UNSPECIFIED (11) PAD (peripheral artery disease) Code(s): I73.9 - PERIPHERAL VASCULAR DISEASE, UNSPECIFIED Assessment/Plan 12/19/2017 Normal LV size with mild-mod decrease LV fxn, mild STEPHEN, mild TR, MR, can't exclude MV vegetation 1. PAD s/p LE bypass, heel wound (non healing) await RLE angiogram +/- [employer] 2. HTN 3. Hypercholesterolemia 4. DM 5. Diastolic LV dysfunction with class 0 NYHA classification LV failure 6. CAD s/p CABG, PCI/stent, demand ischemia 7. ESRD on HD PLAN: 1. No absolute contraindication in proceeding with vascular intervention in view of absence of ischemic symptoms, decompensated congestive heart failure or malignant arrhythmias. 2. Continue Carvedilol 12.5 bid 3. ASA 81 qd and Plavix 75 qd and Lipitor 40 qhs 4. Empiric antibiotic course and Wound care 5. DVT and GI prophylaxis
--- NOTE | 2018-04-15 13:19 | PN ---
Progress Note, Physician History of Present Illness: Pt seen and examined at bedside. He is awake and alert. He is going for an angiogram today. - Current Medication List Current Medications: Active Medications Acetaminophen (Tylenol -) 650 mg PO Q6H PRN PRN Reason: PAIN LEVEL 1-5 Last Admin: 04/06/18 22:21 Dose: 650 mg Artificial Tears (Artificial Tears) 1 drop OU Q12H PRN PRN Reason: DRY EYES Aspirin (Ecotrin -) [address] [facility] Last Admin: 04/15/18 09:42 Dose: 81 mg Atorvastatin Calcium (Lipitor -) [address] [facility] Last Admin: 04/14/18 21:45 Dose: 40 mg Calcium Acetate (Phoslo -) [address] [facility] Last Admin: 04/15/18 09:41 Dose: 667 mg Carvedilol (Coreg -) 12.[address] [facility] Last Admin: 04/15/18 09:42 Dose: 12.5 mg Citalopram Hydrobromide (Celexa -) [address] [facility] Last Admin: 04/15/18 09:42 Dose: 20 mg Clopidogrel Bisulfate (Plavix -) [address] [facility] Last Admin: 04/15/18 09:44 Dose: Not Given Collagenase (Santyl -) [address] [facility]; Protocol Last Admin: 04/15/18 09:46 Dose: 1 applic Divalproex Sodium (Depakote -) [address] [facility] Last Admin: 04/15/18 09:43 Dose: 125 mg Docusate Sodium (Colace -) [address] [facility] Last Admin: 04/14/18 21:45 Dose: 300 mg Folic Acid (Folic Acid -) [address] [facility] Last Admin: 04/15/18 09:42 Dose: 1 mg Gabapentin (Neurontin -) [address] [facility] Last Admin: 04/15/18 05:10 Dose: Not Given Haloperidol (Haldol -) [address] [facility] Last Admin: 04/14/18 21:44 Dose: 2 mg Heparin Sodium (Porcine) (Heparin -) 5,[address] [facility] Last Admin: 04/14/18 21:46 Dose: 5,000 unit Piperacillin Sod/Tazobactam (Sod 2.25 gm/ Dextrose) 100 mls @ 100 mls/hr IVPB Q8H-IV [facility]; Protocol Last Admin: 04/15/18 09:41 Dose: 100 mls/hr Sodium Chloride (Normal Saline -) 250 mls @ 3,000 mls/hr IV PRN PRN PRN Reason: Hypotension during Dialysis Stop: 04/15/18 15:50 Insulin Aspart (Novolog Vial Sliding Scale -) 1 vial SQ [facility]; Protocol Last Admin: 04/15/18 11:58 Dose: Not Given Insulin Detemir (Levemir Vial) 30 units SQ [facility] Mirtazapine (Remeron -) 7.[address] [facility] Last Admin: 04/14/18 21:45 Dose: 7.5 mg Multi-Ingredient Ointment (Zinc Oxide 20% Topical Oint) [address] [facility] Last Admin: 04/15/18 10:27 Dose: 1 applic Multivitamins (Total B With C -) [address] [facility] Last Admin: 04/15/18 09:42 Dose: 1 each Ranitidine HCl (Zantac -) [address] [facility] Last Admin: 04/15/18 09:42 Dose: 150 mg Tamsulosin HCl (Flomax -) 0.4 mg PO [facility] Last Admin: 04/14/18 21:45 Dose: 0.4 mg - Objective Vital Signs: Vital Signs Temperature 97.5 F L 04/15/18 08:00 Pulse Rate 54 L 04/15/18 08:00 Respiratory Rate 16 04/15/18 08:00 Blood Pressure 139/56 04/15/18 08:00 O2 Sat by Pulse Oximetry (%) 99 04/15/18 09:00 Constitutional: Yes: Calm Eyes: Yes: Conjunctiva Clear HENT: Yes: Atraumatic Cardiovascular: Yes: S1, S2 Respiratory: Yes: CTA Bilaterally Gastrointestinal: Yes: Normal Bowel Sounds, Soft Genitourinary: Yes: WNL Musculoskeletal: Yes: WNL Edema: No Neurological: Yes: Oriented Psychiatric: Yes: Oriented Labs: CBC, BMP 04/15/18 06:30 04/15/18 06:30 INR, PTT INR 1.20 (0.83-1.09) H 03/28/18 22:22 Problem List - Problems (1) Diabetes Code(s): E11.9 - TYPE 2 DIABETES MELLITUS WITHOUT COMPLICATIONS Qualifiers: 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 type: type 1 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 complication status: with circulatory complication (2) ESRD (end stage renal disease) on dialysis Code(s): N18.6 - END STAGE RENAL DISEASE; Z99.2 - DEPENDENCE ON RENAL DIALYSIS (3) Syncope Code(s): R55 - SYNCOPE AND COLLAPSE (4) Anemia Code(s): D64.9 - ANEMIA, UNSPECIFIED Assessment/Plan Current Medications Generic Name Dose Route Start Last Admin Trade Name Freq PRN Reason Stop Dose Admin Acetaminophen 650 mg 04/02/18 15:12 04/06/18 22:21 Tylenol - PO 650 mg Q6H PRN Administration PAIN LEVEL 1-5 Artificial Tears 1 drop 04/02/18 15:12 Artificial Tears OU Q12H PRN DRY EYES Aspirin 81 mg 04/03/18 10:00 04/15/18 09:42 Ecotrin - PO 81 mg DAILY [facility] Administration Atorvastatin Calcium 40 mg 04/02/18 22:00 04/14/18 21:45 Lipitor - PO 40 mg HS [facility] Administration Calcium Acetate 667 mg 04/02/18 17:30 04/15/18 09:41 Phoslo - PO 667 mg TIDCM [facility] Administration Carvedilol 12.5 mg 04/02/18 22:00 04/15/18 09:42 Coreg - PO 12.5 mg BID [facility] Administration Citalopram Hydrobromide 20 mg 04/03/18 10:00 04/15/18 09:42 Celexa - PO 20 mg DAILY [facility] Administration Clopidogrel Bisulfate 75 mg 04/03/18 10:00 04/15/18 09:44 Plavix - PO Not Given DAILY [facility] Collagenase 1 applic 04/10/18 19:30 04/15/18 09:46 Santyl - TP 1 applic DAILY [facility] Administration Protocol Divalproex Sodium 125 mg 04/02/18 22:00 04/15/18 09:43 Depakote - PO 125 mg BID [facility] Administration Docusate Sodium 300 mg 04/02/18 22:00 04/14/18 21:45 Colace - PO 300 mg HS [facility] Administration Folic Acid 1 mg 04/03/18 10:00 04/15/18 09:42 Folic Acid - PO 1 mg DAILY [facility] Administration Gabapentin 100 mg 04/02/18 22:00 04/15/18 05:10 Neurontin - PO Not Given TID [facility] Haloperidol 2 mg 04/02/18 22:00 04/14/18 21:44 Haldol - PO 2 mg HS [facility] Administration Heparin Sodium (Porcine) 5,000 unit 04/10/18 10:00 04/14/18 21:46 Heparin - SQ 5,000 unit BID [facility] Administration Piperacillin Sod/Tazobactam 100 mls @ 100 mls/hr 04/05/18 02:00 04/15/18 09: 41 Sod 2.25 gm/ Dextrose IVPB 100 mls/hr Q8H-IV [facility] Administration Protocol Sodium Chloride 250 mls @ 3,000 mls/hr 04/14/18 15:50 Normal Saline - IV 04/15/18 15:50 PRN PRN Hypotension during Dialysis Insulin Aspart 1 vial 04/02/18 16:30 04/15/18 11:58 Novolog Vial Sliding Scale - SQ Not Given ACHS [facility] Protocol Insulin Detemir 30 units 04/15/18 10:33 Levemir Vial SQ HS [facility] Mirtazapine 7.5 mg 04/11/18 12:21 04/14/18 21:45 Remeron - PO 7.5 mg HS [facility] Administration Multi-Ingredient Ointment 1 gm 04/03/18 10:00 04/15/18 10:27 Zinc Oxide 20% Topical Oint TP 1 applic DAILY [facility] Administration Multivitamins 1 each 04/03/18 10:00 04/15/18 09:42 Total B With C - PO 1 each DAILY [facility] Administration Ranitidine HCl 150 mg 04/03/18 10:00 04/15/18 09:42 Zantac - PO 150 mg DAILY [facility] Administration Tamsulosin HCl 0.4 mg 04/02/18 22:00 04/14/18 21:45 Flomax - PO 0.4 mg HS [facility] Administration Impression 1. ESRD 2. anemia 3. HTN 4. Chol 5. DM 6. BPH 7. CAD 8. hypoglycemia 9. CHF 10. syncope 11. depression Plan - pt going for angio today - HD scheduled for today as well - cont wound care to foot - pt appears comfortable - cont epo - hg improving - monitor blood pressure - renal diet - will follow Dr Donovan
[2018-04-15] MEDS ORDERED: SODIUM CHLORIDE 250 ML IV PRN ×3 (13:20→20:14)
[2018-04-15] MEDS ORDERED: EPOETIN ALFA 2,000 UNIT/1 ML VIAL IVPUSH ONE ×2 (13:20→19:05)
[2018-04-15] MEDS ORDERED: MIDAZOLAM HCL 2 MG/2 ML SINGLE DOSE VIAL ONE (15:25)
[2018-04-15] MEDS ORDERED: PROPOFOL 20 ML ONE (15:30)
[2018-04-15] MEDS ORDERED: LIDOCAINE HCL 1%, 10 MG/ML (20ML VIAL) ONE (15:36)
[2018-04-15] MEDS ORDERED: HEPARIN NA (PORCINE) 5,000 UNITS/ML 1ML VIAL ONE ×3 (15:36→18:12)
[2018-04-15] MEDS ORDERED: DEXTROSE 5%-0.45% SALINE 1,000 ML IV SCH (18:00)
[2018-04-15] MEDS ORDERED: NITROGLYCERIN 50 MG/10 ML VIAL IVPB ONE (18:21)
[2018-04-15] MEDS ORDERED: ePHEDrine SULFATE 50 MG/1 ML AMPULE ONE (18:24)
[2018-04-15] MEDS ORDERED: PROTAMINE SULFATE 50 MG/5 ML VIAL ONE (18:29)
--- NOTE | 2018-04-15 18:47 | OP ---
Operative Note - Note: Operative Date: 04/15/18 Pre-Operative Diagnosis: Gangrene left heel Operation: Revascularization lefty tibial with atherectomy and angioplasty Findings: Severe calcifioc tibial occlusive disease. Runoff to disease plantar arteries Post-Operative Diagnosis: Same as Pre-op Surgeon: Augustin Schofield Anesthesiologist/ORCHESTRA CONDUCTOR: Keon Hardy Anesthesia: Fractional
[2018-04-15] MEDS ORDERED: ARTIFICIAL TEARS (POLYVINYL ALCOHOL) OPTH DROPS OU PRN (19:05)
[2018-04-15] MEDS ORDERED: EPOETIN ALFA 10,000 UNIT, EPOETIN ALFA 2,000 UNIT IVPUSH ONE (20:15)
[2018-04-15 20:30] LABS: HEMATOCRIT 28.2 % (35.4-49); HEMOGLOBIN 9.6 GM/dL (11.7-16.9); MCH 32.7 pg (25.7-33.7); MEAN CELL VOLUME 96.3 fl (80-96); MEAN PLT VOLUME 6.6 fl (7.5-11.1); PLATELET COUNT 429 K/MM3 (134-434); RBC 2.93 M/mm3 (4.00-5.60); RDW 16.1 % (11.9-15.9); WHITE BLOOD COUNT 10.9 K/mm3 (4.0-10.0)
[2018-04-15] MEDS: ATORVASTATIN CA 40 MG TABLET (FP) PO SCH (23:29)
[2018-04-15] MEDS: DOCUSATE SODIUM 100 MG CAPSULE (FP) PO SCH (23:30)
[2018-04-15] MEDS: TAMSULOSIN HCL 0.4 MG CAP.ER.24H (FP) PO SCH (23:32)
[2018-04-15] MEDS: HALOPERIDOL 1 MG TABLET (FP) PO SCH (23:53)
[2018-04-15] MEDS: MIRTAZAPINE 15 MG TABLET (FP) PO SCH (23:55)
[2018-04-15] MEDS: INSULIN (LEVEMIR) 100 UNITS/ML UNITS SQ SCH (23:56)
[2018-04-16] MEDS ORDERED: DEXTROSE 5%-WATER - 50 ML IVPB ONE ×3 (01:24→17:07)
[2018-04-16] MEDS ORDERED: PIPERACILLIN/TAZOBACTAM 2.25 GM VIAL IVPB ONE ×3 (01:24→17:06)
[2018-04-16] MEDS: PIPERACILLIN/TAZOB 2.25 GM 2.25 GM in DEXTROSE 5%-WATER - 50 ML IVPB SCH ×3 (01:38→17:13)
[2018-04-16] MEDS: GABAPENTIN 100 MG CAPSULE (FP) PO SCH ×3 (05:33→21:46)
[2018-04-16] MEDS: INSULIN SLIDING SCALE (NOVOLOG) 1 VIAL SQ SCH ×4 (06:16→21:48)
[2018-04-16] MEDS ORDERED: INSULIN (NOVOLOG) ASPART 100 UNITS/ML 10ML VIAL ONE ×2 (06:19→21:10)
[2018-04-16] MEDS: DEXTROSE 5%-0.45% SALINE 1,000 ML IV SCH ×2 (09:06→19:06)
[2018-04-16] MEDS: ACETAMINOPHEN 325 MG TABLET (FP) PO PRN (09:07)
[2018-04-16] MEDS: VITAMIN B COMPLEX W/C COMBO TABLET (FP) PO SCH (09:07)
[2018-04-16] MEDS: CARVEDILOL 12.5 MG TABLET (FP) PO SCH ×2 (09:08→21:46)
[2018-04-16] MEDS: ASPIRIN COATED 81 MG TABLET.EC PO SCH (09:09)
[2018-04-16] MEDS: CITALOPRAM HYDROBROMIDE 20 MG TABLET (FP) PO SCH (09:09)
[2018-04-16] MEDS: CALCIUM ACETATE 667 MG CAPSULE (FP) PO SCH ×3 (09:09→17:15)
[2018-04-16] MEDS: FOLIC ACID 1 MG TABLET (FP) PO SCH (09:09)
[2018-04-16] MEDS: RANITIDINE HCL 150 MG TABLET (FP) PO SCH (09:09)
[2018-04-16] MEDS: CLOPIDOGREL BISULFATE 75 MG TABLET (FP) PO SCH (09:09)
[2018-04-16] MEDS: ZINC OXIDE 20% TOPICAL OINTMENT 454 GM JAR TP SCH (09:10)
[2018-04-16] MEDS: COLLAGENASE CLOSTRIDIUM HIST. 30 GRAMS TUBE TP SCH (09:10)
[2018-04-16] MEDS: DIVALPROEX SODIUM 125 MG TABLET E.C. PO SCH ×2 (09:17→21:47)
--- NOTE | 2018-04-16 11:16 | PN ---
Progress Note (short form) - Note Progress Note: - Note Progress Note: Patient seen and examined s/p revascularisation comfortable confused Vital Signs - 24 hr 04/15/18 04/15/18 04/15/18 14:47 18:52 19:00 Temperature 97.4 F L 97.8 F Pulse Rate 53 L 59 L 58 L Respiratory 20 18 12 Rate Blood Pressure 138/55 132/62 139/55 O2 Sat by Pulse 96 98 Oximetry (%) 04/15/18 04/15/18 04/15/18 19:15 19:30 19:40 Temperature 97.1 F L Pulse Rate 55 L 58 L 59 L Respiratory 13 16 18 Rate Blood Pressure 125/55 129/51 163/66 O2 Sat by Pulse 100 100 99 Oximetry (%) 04/15/18 04/15/18 04/15/18 19:45 20:15 20:45 Temperature Pulse Rate 58 L 61 60 Respiratory 18 18 18 Rate Blood Pressure 139/62 94/50 94/51 O2 Sat by Pulse Oximetry (%) 04/15/18 04/15/18 04/15/18 21:15 21:45 22:15 Temperature Pulse Rate 66 66 62 Respiratory 18 18 18 Rate Blood Pressure 101/48 94/48 90/44 O2 Sat by Pulse Oximetry (%) 04/15/18 04/15/18 04/15/18 22:45 22:50 23:30 Temperature Pulse Rate 6 L 61 Respiratory 18 18 20 Rate Blood Pressure 94/52 119/53 O2 Sat by Pulse 97 Oximetry (%) 04/16/18 04/16/18 04/16/18 01:57 05:47 09:00 Temperature 97.8 F 98.3 F Pulse Rate 60 72 Respiratory 20 20 Rate Blood Pressure 145/56 145/90 O2 Sat by Pulse 100 Oximetry (%) 04/16/18 10:00 Temperature 98.7 F Pulse Rate 66 Respiratory 18 Rate Blood Pressure 117/47 O2 Sat by Pulse Oximetry (%) Current Medications Generic Name Dose Route Start Last Admin Trade Name Freq PRN Reason Stop Dose Admin Acetaminophen 650 mg 04/15/18 19:05 04/16/18 09:07 Tylenol - PO 650 mg Q6H PRN Administration PAIN LEVEL 1-5 Artificial Tears 1 drop 04/15/18 19:05 Artificial Tears OU Q12H PRN DRY EYES Aspirin 81 mg 04/16/18 10:00 04/16/18 09:09 Ecotrin - PO 81 mg DAILY [facility] Administration Atorvastatin Calcium 40 mg 04/15/18 22:00 04/15/18 23:29 Lipitor - PO 40 mg HS ROSIE Administration Calcium Acetate 667 mg 04/16/18 08:00 04/16/18 09:09 Phoslo - PO 667 mg TIDCM ROSIE Administration Carvedilol 12.5 mg 04/15/18 22:00 04/16/18 09:08 Coreg - PO 12.5 mg BID [facility] Administration Citalopram Hydrobromide 20 mg 04/16/18 10:00 04/16/18 09:09 Celexa - PO 20 mg DAILY [facility] Administration Clopidogrel Bisulfate 75 mg 04/16/18 10:00 04/16/18 09:09 Plavix - PO 75 mg DAILY [facility] Administration Collagenase 1 applic 04/16/18 10:00 04/16/18 09:10 Santyl - TP 1 applic DAILY [facility] Administration Protocol Divalproex Sodium 125 mg 04/15/18 22:00 04/16/18 09:17 Depakote - PO 125 mg BID [facility] Administration Docusate Sodium 300 mg 04/15/18 22:00 04/15/18 23:30 Colace - PO 300 mg HS [facility] Administration Folic Acid 1 mg 04/16/18 10:00 04/16/18 09:09 Folic Acid - PO 1 mg DAILY [facility] Administration Gabapentin 100 mg 04/15/18 22:00 04/16/18 05:33 Neurontin - PO 100 mg TID [facility] Administration Haloperidol 2 mg 04/15/18 22:00 04/15/18 23:53 Haldol - PO 2 mg HS [facility] Administration Sodium Chloride 250 mls @ 3,000 mls/hr 04/15/18 20:14 Normal Saline - IV PRN PRN Hypotension during Dialysis Dextrose/Sodium Chloride 1,000 mls @ 40 mls/hr 04/15/18 19:05 04/16/18 09:06 D5-1/2ns - IV Not Given ASDIR [facility]IE Piperacillin Sod/Tazobactam 50 mls @ 100 mls/hr 04/16/18 02:00 04/16/18 09:07 Sod 2.25 gm/ Dextrose IVPB 100 mls/hr Q8H-IV [facility]IE Administration Protocol Insulin Aspart 1 vial 04/15/18 22:00 04/16/18 06:16 Novolog Vial Sliding Scale - SQ 4 unit ACHS ROSIE Administration Protocol Insulin Detemir 30 units 04/15/18 22:00 04/15/18 23:56 Levemir Vial SQ 30 units HS [facility]IE Administration Mirtazapine 7.5 mg 04/15/18 22:00 04/15/18 23:55 Remeron - PO 7.5 mg HS ROSIE Administration Multi-Ingredient Ointment 1 gm 04/16/18 10:00 04/16/18 09:10 Zinc Oxide 20% Topical Oint TP 1 gm DAILY [facility] Administration Multivitamins 1 each 04/16/18 10:00 04/16/18 09:07 Total B With C - PO 1 each DAILY [facility] Administration Ranitidine HCl 150 mg 04/16/18 10:00 04/16/18 09:09 Zantac - PO 150 mg DAILY [facility] Administration Tamsulosin HCl 0.4 mg 04/15/18 22:00 04/15/18 23:32 Flomax - PO 0.4 mg HS ROSIE Administration Laboratory Results - last 24 hr 04/15/18 04/15/18 04/15/18 11:32 14:33 20:20 WBC 10.9 H RBC 2.93 L Hgb 9.6 L Hct 28.2 L MCV 96.3 H MCH 32.7 MCHC 34.0 RDW 16.1 H Plt Count 429 MPV 6.6 L POC Glucometer 116 74 04/15/18 04/16/18 23:17 05:32 WBC RBC Hgb Hct MCV MCH MCHC RDW Plt Count MPV POC Glucometer 209 269 exam- Constitutional: Yes: No Distress, Comfortable. Neck: Yes: Supple. no jvd Cardiovascular: Yes: Regular Rate and Rhythm Respiratory: Yes: Diminished Gastrointestinal: Yes: Soft/ non tender Edema: No Wound/Incision: Yes: Bilateral heel ulcers -- necrotic and foul smelling, tender , feet are warm Neurological: Yes: Alert Psychiatric: Yes: Alert,calm Assessment/Plan clinically stable Continue present care abx-- Zosyn bone scan-ve Arterial doppler-- Atherosclerotic disease monitor bgm-- increase Levemir dialysis per renal antibiotics pain control Problem List - Problems (1) Diabetes Code(s): E11.9 - TYPE 2 DIABETES MELLITUS WITHOUT COMPLICATIONS Qualifiers: 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 type: type 1 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 complication status: with circulatory complication (2) ESRD (end stage renal disease) on dialysis Code(s): N18.6 - END STAGE RENAL DISEASE; Z99.2 - DEPENDENCE ON RENAL DIALYSIS (3) Infected pressure ulcer Code(s): L89.90 - PRESSURE ULCER OF UNSPECIFIED SITE, UNSPECIFIED STAGE; L08.9 - LOCAL INFECTION OF THE SKIN AND SUBCUTANEOUS TISSUE, UNSP (4) Syncope Code(s): R55 - SYNCOPE AND COLLAPSE (5) Acute metabolic encephalopathy due to hypoglycemia Code(s): G93.41 - METABOLIC ENCEPHALOPATHY; E16.2 - HYPOGLYCEMIA, UNSPECIFIED (6) Anemia Code(s): D64.9 - ANEMIA, UNSPECIFIED (7) CAD (coronary artery disease) Code(s): I25.10 - ATHSCL HEART DISEASE OF [place] CORONARY ARTERY W/O ANG PCTRS (8) ESRD (end stage renal disease) on dialysis Code(s): N18.6 - END STAGE RENAL DISEASE; Z99.2 - DEPENDENCE ON RENAL DIALYSIS
--- NOTE | 2018-04-16 11:21 | PN ---
Progress Note (short form) - Note Progress Note: Anesthesia post op Pt seen and examined S:Alert and awake O: Vital Signs Temperature 98.7 F 04/16/18 10:00 Pulse Rate 66 04/16/18 10:00 Respiratory Rate 04/16/18 10:00 Blood Pressure 117/47 04/16/18 10:00 O2 Sat by Pulse Oximetry (%) 100 04/16/18 09:00 CBC, BMP 04/15/18 20:20 04/15/18 06:30 A/P: Current Active Problems Diabetes (Acute) ESRD (end stage renal disease) on dialysis (Acute) Eschar of heel (Acute) Fever (Acute) Infected pressure ulcer (Acute) Pre-operative cardiovascular examination (Acute) Syncope (Acute) s/p Angiogram/angioplasty RLE Doing well post op Continue current care Isac Giron MD
[2018-04-16] MEDS ORDERED: SODIUM CHLORIDE 250 ML IV PRN (12:02)
--- NOTE | 2018-04-16 12:02 | PN ---
Progress Note, Physician History of Present Illness: Pt seen and examined at bedside. He is awake and alert. He went for angio last night and was dialyzed afterwards. - Current Medication List Current Medications: Active Medications Acetaminophen (Tylenol -) 650 mg PO Q6H PRN PRN Reason: PAIN LEVEL 1-5 Last Admin: 04/16/18 09:07 Dose: 650 mg Artificial Tears (Artificial Tears) 1 drop OU Q12H PRN PRN Reason: DRY EYES Aspirin (Ecotrin -) 81 mg PO DAILY [facility] Last Admin: 04/16/18 09:09 Dose: 81 mg Atorvastatin Calcium (Lipitor -) 40 mg PO HS [facility] Last Admin: 04/15/18 23:29 Dose: 40 mg Calcium Acetate (Phoslo -) 667 mg PO TIDCM [facility] Last Admin: 04/16/18 09:09 Dose: 667 mg Carvedilol (Coreg -) 12.5 mg PO BID [facility] Last Admin: 04/16/18 09:08 Dose: 12.5 mg Citalopram Hydrobromide (Celexa -) 20 mg PO DAILY [facility] Last Admin: 04/16/18 09:09 Dose: 20 mg Clopidogrel Bisulfate (Plavix -) 75 mg PO DAILY [facility] Last Admin: 04/16/18 09:09 Dose: 75 mg Collagenase (Santyl -) 1 applic TP DAILY [facility]; Protocol Last Admin: 04/16/18 09:10 Dose: 1 applic Divalproex Sodium (Depakote -) 125 mg PO BID [facility] Last Admin: 04/16/18 09:17 Dose: 125 mg Docusate Sodium (Colace -) 300 mg PO HS [facility] Last Admin: 04/15/18 23:30 Dose: 300 mg Folic Acid (Folic Acid -) 1 mg PO DAILY [facility] Last Admin: 04/16/18 09:09 Dose: 1 mg Gabapentin (Neurontin -) 100 mg PO TID [facility] Last Admin: 04/16/18 05:33 Dose: 100 mg Haloperidol (Haldol -) 2 mg PO HS [facility] Last Admin: 04/15/18 23:53 Dose: 2 mg Sodium Chloride (Normal Saline -) 250 mls @ 3,000 mls/hr IV PRN PRN PRN Reason: Hypotension during Dialysis Dextrose/Sodium Chloride (D5-1/2ns -) 1,000 mls @ 40 mls/hr IV ASDIR [facility] Last Admin: 04/16/18 09:06 Dose: Not Given Piperacillin Sod/Tazobactam (Sod 2.25 gm/ Dextrose) 50 mls @ 100 mls/hr IVPB Q8H-IV [facility]; Protocol Last Admin: 04/16/18 09:07 Dose: 100 mls/hr Insulin Aspart (Novolog Vial Sliding Scale -) 1 vial SQ [facility]; Protocol Last Admin: 04/16/18 06:16 Dose: 4 unit Insulin Detemir (Levemir Vial) 30 units SQ [facility] Last Admin: 04/15/18 23:56 Dose: 30 units Mirtazapine (Remeron -) 7.5 mg PO HS [facility] Last Admin: 04/15/18 23:55 Dose: 7.5 mg Multi-Ingredient Ointment (Zinc Oxide 20% Topical Oint) 1 gm TP DAILY [facility] Last Admin: 04/16/18 09:10 Dose: 1 gm Multivitamins (Total B With C -) 1 each PO DAILY [facility] Last Admin: 04/16/18 09:07 Dose: 1 each Ranitidine HCl (Zantac -) 150 mg PO DAILY [facility] Last Admin: 04/16/18 09:09 Dose: 150 mg Tamsulosin HCl (Flomax -) 0.4 mg PO [facility] Last Admin: 04/15/18 23:32 Dose: 0.4 mg - Objective Vital Signs: Vital Signs Temperature 98.7 F 04/16/18 10:00 Pulse Rate 66 04/16/18 10:00 Respiratory Rate 18 04/16/18 10:00 Blood Pressure 117/47 04/16/18 10:00 O2 Sat by Pulse Oximetry (%) 100 04/16/18 09:00 Constitutional: Yes: Calm Eyes: Yes: Conjunctiva Clear HENT: Yes: Atraumatic Neck: Yes: Supple Cardiovascular: Yes: S1, S2 Respiratory: Yes: CTA Bilaterally Gastrointestinal: Yes: Soft Genitourinary: Yes: Incontinence Edema: No Integumentary: Yes: Other (dressing in place over ulcers) Neurological: Yes: Confusion Labs: CBC, BMP 04/15/18 20:20 04/15/18 06:30 INR, PTT INR 1.20 (0.83-1.09) H 03/28/18 22:22 Problem List - Problems (1) Diabetes Code(s): E11.9 - TYPE 2 DIABETES MELLITUS WITHOUT COMPLICATIONS Qualifiers: 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 type: type 1 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 complication status: with circulatory complication (2) ESRD (end stage renal disease) on dialysis Code(s): N18.6 - END STAGE RENAL DISEASE; Z99.2 - DEPENDENCE ON RENAL DIALYSIS (3) Syncope Code(s): R55 - SYNCOPE AND COLLAPSE (4) Anemia Code(s): D64.9 - ANEMIA, UNSPECIFIED Assessment/Plan Current Medications Generic Name Dose Route Start Last Admin Trade Name Freq PRN Reason Stop Dose Admin Acetaminophen 650 mg 04/15/18 19:05 04/16/18 09:07 Tylenol - PO 650 mg Q6H PRN Administration PAIN LEVEL 1-5 Artificial Tears 1 drop 04/15/18 19:05 Artificial Tears OU Q12H PRN DRY EYES Aspirin 81 mg 04/16/18 10:00 04/16/18 09:09 Ecotrin - PO 81 mg DAILY ROSIE Administration Atorvastatin Calcium 40 mg 04/15/18 22:00 04/15/18 23:29 Lipitor - PO 40 mg HS ROSIE Administration Calcium Acetate 667 mg 04/16/18 08:00 04/16/18 09:09 Phoslo - PO 667 mg TIDCM ROSIE Administration Carvedilol 12.5 mg 04/15/18 22:00 04/16/18 09:08 Coreg - PO 12.5 mg BID ROSIE Administration Citalopram Hydrobromide 20 mg 04/16/18 10:00 04/16/18 09:09 Celexa - PO 20 mg DAILY [facility]IE Administration Clopidogrel Bisulfate 75 mg 04/16/18 10:00 04/16/18 09:09 Plavix - PO 75 mg DAILY [facility]IE Administration Collagenase 1 applic 04/16/18 10:00 04/16/18 09:10 Santyl - TP 1 applic DAILY [facility]IE Administration Protocol Divalproex Sodium 125 mg 04/15/18 22:00 04/16/18 09:17 Depakote - PO 125 mg BID ROSIE Administration Docusate Sodium 300 mg 04/15/18 22:00 04/15/18 23:30 Colace - PO 300 mg HS ROSIE Administration Folic Acid 1 mg 04/16/18 10:00 04/16/18 09:09 Folic Acid - PO 1 mg DAILY ROSIE Administration Gabapentin 100 mg 04/15/18 22:00 04/16/18 05:33 Neurontin - PO 100 mg TID [facility]IE Administration Haloperidol 2 mg 04/15/18 22:00 04/15/18 23:53 Haldol - PO 2 mg HS ROSIE Administration Sodium Chloride 250 mls @ 3,000 mls/hr 04/15/18 20:14 Normal Saline - IV PRN PRN Hypotension during Dialysis Dextrose/Sodium Chloride 1,000 mls @ 40 mls/hr 04/15/18 19:05 04/16/18 09:06 D5-1/2ns - IV Not Given ASDIR ROSIE Piperacillin Sod/Tazobactam 50 mls @ 100 mls/hr 04/16/18 02:00 04/16/18 09:07 Sod 2.25 gm/ Dextrose IVPB 100 mls/hr Q8H-IV ROSIE Administration Protocol Insulin Aspart 1 vial 04/15/18 22:00 04/16/18 06:16 Novolog Vial Sliding Scale - SQ 4 unit ACHS ROSIE Administration Protocol Insulin Detemir 30 units 04/15/18 22:00 04/15/18 23:56 Levemir Vial SQ 30 units HS ROSIE Administration Mirtazapine 7.5 mg 04/15/18 22:00 04/15/18 23:55 Remeron - PO 7.5 mg HS ROSIE Administration Multi-Ingredient Ointment 1 gm 04/16/18 10:00 04/16/18 09:10 Zinc Oxide 20% Topical Oint TP 1 gm DAILY ROSIE Administration Multivitamins 1 each 04/16/18 10:00 04/16/18 09:07 Total B With C - PO 1 each DAILY ROSIE Administration Ranitidine HCl 150 mg 04/16/18 10:00 04/16/18 09:09 Zantac - PO 150 mg DAILY ROSIE Administration Tamsulosin HCl 0.4 mg 04/15/18 22:00 04/15/18 23:32 Flomax - PO 0.4 mg HS ROSIE Administration Impression 1. ESRD 2. anemia 3. HTN 4. Chol 5. DM 6. BPH 7. CAD 8. hypoglycemia 9. CHF 10. syncope 11. depression 12. PVD Plan - HD in am - vascular input appreciated - cont wound care - pt with PVD - cont epo - hg improving - renal diet - will follow Dr Donovan
--- NOTE | 2018-04-16 12:43 | PN ---
Progress Note, Physician Chief Complaint: Events noted Confused History of Present Illness: Patient was seen and examined. Awake but confused. Chart was reviewed Denies chest pain, SOB or palpitations Vascular surgery input noted - Current Medication List Current Medications: Active Medications Acetaminophen (Tylenol -) 650 mg PO Q6H PRN PRN Reason: PAIN LEVEL 1-5 Last Admin: 04/16/18 09:07 Dose: 650 mg Artificial Tears (Artificial Tears) 1 drop OU Q12H PRN PRN Reason: DRY EYES Aspirin (Ecotrin -) 81 mg PO DAILY [facility] Last Admin: 04/16/18 09:09 Dose: 81 mg Atorvastatin Calcium (Lipitor -) 40 mg PO HS [facility] Last Admin: 04/15/18 23:29 Dose: 40 mg Calcium Acetate (Phoslo -) 667 mg PO TIDCM [facility] Last Admin: 04/16/18 09:09 Dose: 667 mg Carvedilol (Coreg -) 12.5 mg PO BID [facility] Last Admin: 04/16/18 09:08 Dose: 12.5 mg Citalopram Hydrobromide (Celexa -) 20 mg PO DAILY [facility] Last Admin: 04/16/18 09:09 Dose: 20 mg Clopidogrel Bisulfate (Plavix -) 75 mg PO DAILY [facility] Last Admin: 04/16/18 09:09 Dose: 75 mg Collagenase (Santyl -) 1 applic TP DAILY [facility]; Protocol Last Admin: 04/16/18 09:10 Dose: 1 applic Divalproex Sodium (Depakote -) 125 mg PO BID [facility] Last Admin: 04/16/18 09:17 Dose: 125 mg Docusate Sodium (Colace -) 300 mg PO HS [facility] Last Admin: 04/15/18 23:30 Dose: 300 mg Epoetin Jose Francisco (Epogen -) 12,000 unit IVPUSH ONCE ONE Stop: 04/17/18 12:03 Folic Acid (Folic Acid -) 1 mg PO DAILY [facility] Last Admin: 04/16/18 09:09 Dose: 1 mg Gabapentin (Neurontin -) 100 mg PO TID [facility] Last Admin: 04/16/18 05:33 Dose: 100 mg Haloperidol (Haldol -) 2 mg PO HS [facility] Last Admin: 04/15/18 23:53 Dose: 2 mg Sodium Chloride (Normal Saline -) 250 mls @ 3,000 mls/hr IV PRN PRN PRN Reason: Hypotension during Dialysis Dextrose/Sodium Chloride (D5-1/2ns -) 1,000 mls @ 40 mls/hr IV ASDIR [facility] Last Admin: 04/16/18 09:06 Dose: Not Given Piperacillin Sod/Tazobactam (Sod 2.25 gm/ Dextrose) 50 mls @ 100 mls/hr IVPB Q8H-IV [facility]; Protocol Last Admin: 04/16/18 09:07 Dose: 100 mls/hr Sodium Chloride (Normal Saline -) 250 mls @ 3,000 mls/hr IV PRN PRN PRN Reason: Hypotension during Dialysis Stop: 04/17/18 12:02 Insulin Aspart (Novolog Vial Sliding Scale -) 1 vial SQ [facility]; Protocol Last Admin: 04/16/18 12:20 Dose: Not Given Insulin Detemir (Levemir Vial) 30 units SQ HS [facility] Last Admin: 04/15/18 23:56 Dose: 30 units Mirtazapine (Remeron -) 7.5 mg PO HS [facility] Last Admin: 04/15/18 23:55 Dose: 7.5 mg Multi-Ingredient Ointment (Zinc Oxide 20% Topical Oint) 1 gm TP DAILY [facility] Last Admin: 04/16/18 09:10 Dose: 1 gm Multivitamins (Total B With C -) 1 each PO DAILY [facility] Last Admin: 04/16/18 09:07 Dose: 1 each Ranitidine HCl (Zantac -) 150 mg PO DAILY [facility] Last Admin: 04/16/18 09:09 Dose: 150 mg Tamsulosin HCl (Flomax -) 0.4 mg PO [facility] Last Admin: 04/15/18 23:32 Dose: 0.4 mg - Objective Vital Signs: Vital Signs Temperature 98.7 F 04/16/18 10:00 Pulse Rate 66 04/16/18 10:00 Respiratory Rate 18 04/16/18 10:00 Blood Pressure 117/47 04/16/18 10:00 O2 Sat by Pulse Oximetry (%) 100 04/16/18 09:00 Neck: Yes: Supple Cardiovascular: Yes: Regular Rate and Rhythm Respiratory: Yes: CTA Bilaterally Gastrointestinal: Yes: Normal Bowel Sounds, Soft. No: Tenderness Edema: No Labs: CBC, BMP 04/15/18 20:20 04/15/18 06:30 Problem List - Problems (1) Diabetes Code(s): E11.9 - TYPE 2 DIABETES MELLITUS WITHOUT COMPLICATIONS Qualifiers: 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 type: type 1 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 complication status: with circulatory complication (2) ESRD (end stage renal disease) on dialysis Code(s): N18.6 - END STAGE RENAL DISEASE; Z99.2 - DEPENDENCE ON RENAL DIALYSIS (3) Eschar of heel Code(s): R23.4 - CHANGES IN SKIN TEXTURE (4) Infected pressure ulcer Code(s): L89.90 - PRESSURE ULCER OF UNSPECIFIED SITE, UNSPECIFIED STAGE; L08.9 - LOCAL INFECTION OF THE SKIN AND SUBCUTANEOUS TISSUE, UNSP (5) Altered mental status, unspecified Code(s): R41.82 - ALTERED MENTAL STATUS, UNSPECIFIED Qualifiers: Altered mental status type: transient alteration of awareness Qualified Code(s): R40.4 - Transient alteration of awareness (6) Anemia Code(s): D64.9 - ANEMIA, UNSPECIFIED (7) CAD (coronary artery disease) Code(s): I25.10 - ATHSCL HEART DISEASE OF [place] CORONARY ARTERY W/O ANG PCTRS (8) CKD (chronic kidney disease) Code(s): N18.9 - CHRONIC KIDNEY DISEASE, UNSPECIFIED Qualifiers: Chronic kidney disease stage: unspecified stage Qualified Code(s): N18.9 - Chronic kidney disease, unspecified (9) Diastolic dysfunction Code(s): I51.9 - HEART DISEASE, UNSPECIFIED (10) HTN (hypertension) Code(s): I10 - ESSENTIAL (PRIMARY) HYPERTENSION Qualifiers: Hypertension type: essential hypertension Qualified Code(s): I10 - Essential (primary) hypertension (11) Hx of CABG Code(s): Z95.1 - PRESENCE OF AORTOCORONARY BYPASS GRAFT (12) Hypercholesterolemia Code(s): E78.00 - PURE HYPERCHOLESTEROLEMIA, UNSPECIFIED (13) PAD (peripheral artery disease) Code(s): I73.9 - PERIPHERAL VASCULAR DISEASE, UNSPECIFIED (14) Acute on chronic diastolic heart failure Code(s): I50.33 - ACUTE ON CHRONIC DIASTOLIC (CONGESTIVE) HEART FAILURE Assessment/Plan 1. PAD s/p LE bypass, heel wound (non healing) s/p atherectomy 2. HTN 3. Hypercholesterolemia 4. DM 5. Diastolic LV dysfunction with class 0 NYHA classification LV failure 6. CAD s/p CABG, PCI/stent, demand ischemia 7. ESRD on HD PLAN: 1. Post vascular intervention management. Vascular surgery input to follow 2. Continue Carvedilol 3. ASA and Plavix 4. Atorvastatin 5. Antibiotics 6. Wound care Further plans are to follow Magno Hernandez MD
--- NOTE | 2018-04-16 13:30 | PN ---
Progress Note (short form) - Note Progress Note: S/p angioplasty right posterior tibial artery for heel gangrene. Distal vasculature is severely attenuated. On exam today the foot is warm but pale. Groin swelling without pulsation. Continue current wound care. It is unlikely that there will be adequate flow to allow for wound healing. I will discuss possible amputation with in several days. Problem List - Problems (1) PAD (peripheral artery disease) Code(s): I73.9 - PERIPHERAL VASCULAR DISEASE, UNSPECIFIED
[2018-04-16] MEDS ORDERED: PT OWN MED DRAWER 7, Y5N ONE (21:10)
[2018-04-16] MEDS: ATORVASTATIN CA 40 MG TABLET (FP) PO SCH (21:45)
[2018-04-16] MEDS: DOCUSATE SODIUM 100 MG CAPSULE (FP) PO SCH (21:46)
[2018-04-16] MEDS: HALOPERIDOL 1 MG TABLET (FP) PO SCH (21:47)
[2018-04-16] MEDS: TAMSULOSIN HCL 0.4 MG CAP.ER.24H (FP) PO SCH (21:47)
[2018-04-16] MEDS: MIRTAZAPINE 15 MG TABLET (FP) PO SCH (21:48)
[2018-04-16] MEDS: INSULIN (LEVEMIR) 100 UNITS/ML UNITS SQ SCH (21:49)
[2018-04-17] MEDS ORDERED: PIPERACILLIN/TAZOBACTAM 2.25 GM VIAL IVPB ONE ×3 (02:37→18:03)
[2018-04-17] MEDS ORDERED: DEXTROSE 5%-WATER - 50 ML IVPB ONE ×3 (02:38→18:04)
[2018-04-17] MEDS: PIPERACILLIN/TAZOB 2.25 GM 2.25 GM in DEXTROSE 5%-WATER - 50 ML IVPB SCH ×3 (02:43→18:41)
[2018-04-17] MEDS: INSULIN SLIDING SCALE (NOVOLOG) 1 VIAL SQ SCH ×5 (06:12→22:07)
[2018-04-17] MEDS: GABAPENTIN 100 MG CAPSULE (FP) PO SCH ×3 (06:13→22:03)
[2018-04-17] MEDS ORDERED: INSULIN (NOVOLOG) ASPART 100 UNITS/ML 10ML VIAL ONE ×3 (06:22→20:19)
[2018-04-17] MEDS: CALCIUM ACETATE 667 MG CAPSULE (FP) PO SCH ×4 (08:55→18:39)
[2018-04-17] MEDS: DIVALPROEX SODIUM 125 MG TABLET E.C. PO SCH ×2 (09:11→22:03)
[2018-04-17] MEDS: CLOPIDOGREL BISULFATE 75 MG TABLET (FP) PO SCH (09:11)
[2018-04-17] MEDS: FOLIC ACID 1 MG TABLET (FP) PO SCH (09:11)
[2018-04-17] MEDS: RANITIDINE HCL 150 MG TABLET (FP) PO SCH (09:11)
[2018-04-17] MEDS: CITALOPRAM HYDROBROMIDE 20 MG TABLET (FP) PO SCH (09:11)
[2018-04-17] MEDS: VITAMIN B COMPLEX W/C COMBO TABLET (FP) PO SCH (09:11)
[2018-04-17] MEDS: ASPIRIN COATED 81 MG TABLET.EC PO SCH (09:11)
[2018-04-17] MEDS: CARVEDILOL 12.5 MG TABLET (FP) PO SCH ×2 (09:11→22:02)
--- NOTE | 2018-04-17 10:41 | PN ---
Progress Note (short form) - Note Progress Note: - Note Progress Note: Patient seen and examined s/p revascularisation comfortable confused no complaints of pain Vital Signs - 24 hr 04/16/18 04/16/18 04/16/18 15:04 18:00 20:23 Temperature 97.5 F L 98.6 F 97.5 F L Pulse Rate 62 65 71 Respiratory 20 20 18 Rate Blood Pressure 106/52 147/61 144/59 O2 Sat by Pulse Oximetry (%) 04/16/18 04/17/18 04/17/18 20:24 01:36 05:33 Temperature 98.6 F 98.9 F Pulse Rate 70 66 Respiratory 18 20 Rate Blood Pressure 145/58 132/54 O2 Sat by Pulse 97 Oximetry (%) 04/17/18 09:11 Temperature 98.6 F Pulse Rate 61 Respiratory 18 Rate Blood Pressure 142/57 O2 Sat by Pulse Oximetry (%) Current Medications Generic Name Dose Route Start Last Admin Trade Name Freq PRN Reason Stop Dose Admin Acetaminophen 650 mg 04/15/18 19:05 04/16/18 09:07 Tylenol - PO 650 mg Q6H PRN Administration PAIN LEVEL 1-5 Artificial Tears 1 drop 04/15/18 19:05 Artificial Tears OU Q12H PRN DRY EYES Aspirin 81 mg 04/16/18 10:00 04/16/18 09:09 Ecotrin - PO 81 mg DAILY ROSIE Administration Atorvastatin Calcium 40 mg 04/15/18 22:00 04/16/18 21:45 Lipitor - PO 40 mg HS ROSIE Administration Calcium Acetate 667 mg 04/16/18 08:00 04/17/18 08:55 Phoslo - PO 667 mg TIDCM ROSIE Administration Carvedilol 12.5 mg 04/15/18 22:00 04/16/18 21:46 Coreg - PO 12.5 mg BID ROSIE Administration Citalopram Hydrobromide 20 mg 04/16/18 10:00 04/16/18 09:09 Celexa - PO 20 mg DAILY ROSIE Administration Clopidogrel Bisulfate 75 mg 04/16/18 10:00 04/16/18 09:09 Plavix - PO 75 mg DAILY ROSIE Administration Collagenase 1 applic 04/16/18 10:00 04/16/18 09:10 Santyl - TP 1 applic DAILY ROSIE Administration Protocol Divalproex Sodium 125 mg 04/15/18 22:00 09/11/18 21:47 Depakote - PO 125 mg BID ROSIE Administration Docusate Sodium 300 mg 04/15/18 22:00 04/16/18 21:46 Colace - PO 300 mg HS ROSIE Administration Epoetin Jose Francisco 12,000 unit 04/17/18 12:02 Epogen - IVPUSH 04/17/18 12:03 ONCE ONE Folic Acid 1 mg 04/16/18 10:00 04/16/18 09:09 Folic Acid - PO 1 mg DAILY ROSIE Administration Gabapentin 100 mg 04/15/18 22:00 04/17/18 06:13 Neurontin - PO 100 mg TID ROSIE Administration Haloperidol 2 mg 04/15/18 22:00 04/16/18 21:47 Haldol - PO 2 mg HS ROSIE Administration Sodium Chloride 250 mls @ 3,000 mls/hr 04/15/18 20:14 Normal Saline - IV PRN PRN Hypotension during Dialysis Dextrose/Sodium Chloride 1,000 mls @ 40 mls/hr 04/15/18 19:05 04/16/18 19:06 D5-1/2ns - IV Not Given ASDIR ROSIE Piperacillin Sod/Tazobactam 50 mls @ 100 mls/hr 04/16/18 02:00 04/17/18 09:12 Sod 2.25 gm/ Dextrose IVPB 100 mls/hr Q8H-IV ROSIE Administration Protocol Sodium Chloride 250 mls @ 3,000 mls/hr 04/16/18 12:02 Normal Saline - IV 04/17/18 12:02 PRN PRN Hypotension during Dialysis Insulin Aspart 1 vial 04/15/18 22:00 04/17/18 06:12 Novolog Vial Sliding Scale - SQ Not Given ACHS ROSIE Protocol Insulin Detemir 30 units 04/15/18 22:00 04/16/18 21:49 Levemir Vial SQ 30 units HS ROSIE Administration Mirtazapine 7.5 mg 04/15/18 22:00 04/16/18 21:48 Remeron - PO 7.5 mg HS ROSIE Administration Multi-Ingredient Ointment 1 gm 04/16/18 10:00 04/16/18 09:10 Zinc Oxide 20% Topical Oint TP 1 gm DAILY ROSIE Administration Multivitamins 1 each 04/16/18 10:00 04/16/18 09:07 Total B With C - PO 1 each DAILY ROSIE Administration Ranitidine HCl 150 mg 04/16/18 10:00 04/16/18 09:09 Zantac - PO 150 mg DAILY ROSIE Administration Tamsulosin HCl 0.4 mg 04/15/18 22:00 04/16/18 21:47 Flomax - PO 0.4 mg HS ROSIE Administration Laboratory Results - last 24 hr 04/16/18 04/16/18 04/16/18 11:36 16:42 21:43 POC Glucometer 121 194 293 04/17/18 06:11 POC Glucometer 178 exam- Constitutional: Yes: No Distress, Comfortable. Neck: Yes: Supple. no jvd Cardiovascular: Yes: Regular Rate and Rhythm Respiratory: Yes: Diminished Gastrointestinal: Yes: Soft/ non tender Edema: No Wound/Incision: Yes: Bilateral heel ulcers - feet are warm Neurological: Yes: Alert Psychiatric: Yes: Alert,calm Assessment/Plan clinically stable Continue present care abx-- Zosyn bone scan-ve Arterial doppler-- Atherosclerotic disease monitor bgm-- increase Levemir dialysis per renal antibiotics pain control possible amputation per vascular surgeon Problem List - Problems (1) Diabetes Code(s): E11.9 - TYPE 2 DIABETES MELLITUS WITHOUT COMPLICATIONS Qualifiers: 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 type: type 1 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 complication status: with circulatory complication (2) ESRD (end stage renal disease) on dialysis Code(s): N18.6 - END STAGE RENAL DISEASE; Z99.2 - DEPENDENCE ON RENAL DIALYSIS (3) Infected pressure ulcer Code(s): L89.90 - PRESSURE ULCER OF UNSPECIFIED SITE, UNSPECIFIED STAGE; L08.9 - LOCAL INFECTION OF THE SKIN AND SUBCUTANEOUS TISSUE, UNSP (4) Syncope Code(s): R55 - SYNCOPE AND COLLAPSE (5) Acute metabolic encephalopathy due to hypoglycemia Code(s): G93.41 - METABOLIC ENCEPHALOPATHY; E16.2 - HYPOGLYCEMIA, UNSPECIFIED (6) Anemia Code(s): D64.9 - ANEMIA, UNSPECIFIED (7) CAD (coronary artery disease) Code(s): I25.10 - ATHSCL HEART DISEASE OF [place] CORONARY ARTERY W/O ANG PCTRS (8) ESRD (end stage renal disease) on dialysis Code(s): N18.6 - END STAGE RENAL DISEASE; Z99.2 - DEPENDENCE ON RENAL DIALYSIS
[2018-04-17] MEDS ORDERED: EPOETIN ALFA 2,000 UNIT/1 ML VIAL IVPUSH ONE (12:02)
--- NOTE | 2018-04-17 12:53 | PN ---
Progress Note, Physician History of Present Illness: Pt seen and examined at bedside. He is drowsy today. - Current Medication List Current Medications: Active Medications Acetaminophen (Tylenol -) 650 mg PO Q6H PRN PRN Reason: PAIN LEVEL 1-5 Last Admin: 04/16/18 09:07 Dose: 650 mg Artificial Tears (Artificial Tears) 1 drop OU Q12H PRN PRN Reason: DRY EYES Aspirin (Ecotrin -) 81 mg PO DAILY [facility] Last Admin: 04/16/18 09:09 Dose: 81 mg Atorvastatin Calcium (Lipitor -) 40 mg PO HS [facility] Last Admin: 04/16/18 21:45 Dose: 40 mg Calcium Acetate (Phoslo -) 667 mg PO TIDCM [facility] Last Admin: 04/17/18 11:25 Dose: 667 mg Carvedilol (Coreg -) 12.5 mg PO BID [facility] Last Admin: 04/16/18 21:46 Dose: 12.5 mg Citalopram Hydrobromide (Celexa -) 20 mg PO DAILY [facility] Last Admin: 04/16/18 09:09 Dose: 20 mg Clopidogrel Bisulfate (Plavix -) 75 mg PO DAILY [facility] Last Admin: 04/16/18 09:09 Dose: 75 mg Collagenase (Santyl -) 1 applic TP DAILY [facility]; Protocol Last Admin: 04/16/18 09:10 Dose: 1 applic Divalproex Sodium (Depakote -) 125 mg PO BID [facility] Last Admin: 04/16/18 21:47 Dose: 125 mg Docusate Sodium (Colace -) 300 mg PO HS [facility] Last Admin: 04/16/18 21:46 Dose: 300 mg Epoetin Jose Francisco (Epogen -) 12,000 unit IVPUSH ONCE ONE Stop: 04/17/18 12:03 Folic Acid (Folic Acid -) 1 mg PO DAILY [facility] Last Admin: 04/16/18 09:09 Dose: 1 mg Gabapentin (Neurontin -) 100 mg PO TID [facility] Last Admin: 04/17/18 06:13 Dose: 100 mg Haloperidol (Haldol -) 2 mg PO HS [facility] Last Admin: 04/16/18 21:47 Dose: 2 mg Sodium Chloride (Normal Saline -) 250 mls @ 3,000 mls/hr IV PRN PRN PRN Reason: Hypotension during Dialysis Dextrose/Sodium Chloride (D5-1/2ns -) 1,000 mls @ 40 mls/hr IV ASDIR [facility] Last Admin: 04/16/18 19:06 Dose: Not Given Piperacillin Sod/Tazobactam (Sod 2.25 gm/ Dextrose) 50 mls @ 100 mls/hr IVPB Q8H-IV ROSIE; Protocol Last Admin: 04/17/18 09:12 Dose: 100 mls/hr Sodium Chloride (Normal Saline -) 250 mls @ 3,000 mls/hr IV PRN PRN PRN Reason: Hypotension during Dialysis Stop: 04/17/18 12:02 Insulin Aspart (Novolog Vial Sliding Scale -) 1 vial SQ [facility]; Protocol Last Admin: 04/17/18 11:25 Dose: Not Given Insulin Detemir (Levemir Vial) 30 units SQ HS [facility] Last Admin: 04/16/18 21:49 Dose: 30 units Mirtazapine (Remeron -) 7.5 mg PO HS [facility] Last Admin: 04/16/18 21:48 Dose: 7.5 mg Multi-Ingredient Ointment (Zinc Oxide 20% Topical Oint) 1 gm TP DAILY [facility] Last Admin: 04/16/18 09:10 Dose: 1 gm Multivitamins (Total B With C -) 1 each PO DAILY [facility] Last Admin: 04/16/18 09:07 Dose: 1 each Ranitidine HCl (Zantac -) 150 mg PO DAILY [facility] Last Admin: 04/16/18 09:09 Dose: 150 mg Tamsulosin HCl (Flomax -) 0.4 mg PO HS [facility] Last Admin: 04/16/18 21:47 Dose: 0.4 mg - Objective Vital Signs: Vital Signs Temperature 98.6 F 04/17/18 09:11 Pulse Rate 61 04/17/18 09:11 Respiratory Rate 18 04/17/18 09:11 Blood Pressure 142/57 04/17/18 09:11 O2 Sat by Pulse Oximetry (%) 97 04/16/18 20:24 Constitutional: Yes: Calm Eyes: Yes: Conjunctiva Clear HENT: Yes: Atraumatic Neck: Yes: Supple Cardiovascular: Yes: S1, S2 Respiratory: Yes: CTA Bilaterally Gastrointestinal: Yes: Soft Genitourinary: Yes: WNL Edema: No Neurological: Yes: Confusion Psychiatric: Yes: Oriented Labs: CBC, BMP 04/15/18 20:20 09/10/18 06:30 INR, PTT INR 1.20 (0.83-1.09) H 03/28/18 22:22 Problem List - Problems (1) Diabetes Code(s): E11.9 - TYPE 2 DIABETES MELLITUS WITHOUT COMPLICATIONS Qualifiers: 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 type: type 1 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 complication status: with circulatory complication (2) ESRD (end stage renal disease) on dialysis Code(s): N18.6 - END STAGE RENAL DISEASE; Z99.2 - DEPENDENCE ON RENAL DIALYSIS (3) Syncope Code(s): R55 - SYNCOPE AND COLLAPSE (4) Anemia Code(s): D64.9 - ANEMIA, UNSPECIFIED Assessment/Plan Current Medications Generic Name Dose Route Start Last Admin Trade Name Freq PRN Reason Stop Dose Admin Acetaminophen 650 mg 04/15/18 19:05 04/16/18 09:07 Tylenol - PO 650 mg Q6H PRN Administration PAIN LEVEL 1-5 Artificial Tears 1 drop 04/15/18 19:05 Artificial Tears OU Q12H PRN DRY EYES Aspirin 81 mg 04/16/18 10:00 04/16/18 09:09 Ecotrin - PO 81 mg DAILY ROSIE Administration Atorvastatin Calcium 40 mg 04/15/18 22:00 04/16/18 21:45 Lipitor - PO 40 mg HS ROSIE Administration Calcium Acetate 667 mg 04/16/18 08:00 04/17/18 11:25 Phoslo - PO 667 mg TIDCM ROSIE Administration Carvedilol 12.5 mg 04/15/18 22:00 04/16/18 21:46 Coreg - PO 12.5 mg BID ROSIE Administration Citalopram Hydrobromide 20 mg 04/16/18 10:00 04/16/18 09:09 Celexa - PO 20 mg DAILY ROSIE Administration Clopidogrel Bisulfate 75 mg 04/16/18 10:00 04/16/18 09:09 Plavix - PO 75 mg DAILY ROSIE Administration Collagenase 1 applic 04/16/18 10:00 04/16/18 09:10 Santyl - TP 1 applic DAILY ROSIE Administration Protocol Divalproex Sodium 125 mg 04/15/18 22:00 04/16/18 21:47 Depakote - PO 125 mg BID ROSIE Administration Docusate Sodium 300 mg 04/15/18 22:00 04/16/18 21:46 Colace - PO 300 mg HS ROSIE Administration Epoetin Jose Francisco 12,000 unit 04/17/18 12:02 Epogen - IVPUSH 04/17/18 12:03 ONCE ONE Folic Acid 1 mg 04/16/18 10:00 04/16/18 09:09 Folic Acid - PO 1 mg DAILY ROSIE Administration Gabapentin 100 mg 04/15/18 22:00 04/17/18 06:13 Neurontin - PO 100 mg TID ROSIE Administration Haloperidol 2 mg 04/15/18 22:00 04/16/18 21:47 Haldol - PO 2 mg HS ROSIE Administration Sodium Chloride 250 mls @ 3,000 mls/hr 04/15/18 20:14 Normal Saline - IV PRN PRN Hypotension during Dialysis Dextrose/Sodium Chloride 1,000 mls @ 40 mls/hr 04/15/18 19:05 04/16/18 19:06 D5-1/2ns - IV Not Given ASDIR ROSIE Piperacillin Sod/Tazobactam 50 mls @ 100 mls/hr 04/16/18 02:00 04/17/18 09:12 Sod 2.25 gm/ Dextrose IVPB 100 mls/hr Q8H-IV ROSIE Administration Protocol Sodium Chloride 250 mls @ 3,000 mls/hr 04/16/18 12:02 Normal Saline - IV 04/17/18 12:02 PRN PRN Hypotension during Dialysis Insulin Aspart 1 vial 04/15/18 22:00 04/17/18 11:25 Novolog Vial Sliding Scale - SQ Not Given ACHS ROSIE Protocol Insulin Detemir 30 units 04/15/18 22:00 04/16/18 21:49 Levemir Vial SQ 30 units HS ROSIE Administration Mirtazapine 7.5 mg 04/15/18 22:00 04/16/18 21:48 Remeron - PO 7.5 mg HS ROSIE Administration Multi-Ingredient Ointment 1 gm 04/16/18 10:00 04/16/18 09:10 Zinc Oxide 20% Topical Oint TP 1 gm DAILY ROSIE Administration Multivitamins 1 each 04/16/18 10:00 04/16/18 09:07 Total B With C - PO 1 each DAILY ROSIE Administration Ranitidine HCl 150 mg 04/16/18 10:00 04/16/18 09:09 Zantac - PO 150 mg DAILY ROSIE Administration Tamsulosin HCl 0.4 mg 04/15/18 22:00 04/16/18 21:47 Flomax - PO 0.4 mg HS ROSIE Administration Impression 1. ESRD 2. anemia 3. HTN 4. Chol 5. DM 6. BPH 7. CAD 8. hypoglycemia 9. CHF 10. syncope 11. depression 12. PVD Plan - HD today - consider psych follow up to adjust meds as pt is drowsy - d/c fluids - cont wound care - cont epo - renal diet - will follow - monitor hg Dr Donovan
[2018-04-17] MEDS: ZINC OXIDE 20% TOPICAL OINTMENT 454 GM JAR TP SCH (13:10)
[2018-04-17] MEDS: COLLAGENASE CLOSTRIDIUM HIST. 30 GRAMS TUBE TP SCH (13:10)
--- NOTE | 2018-04-17 13:25 | PN ---
Progress Note, Physician History of Present Illness: s/p right infrapopliteal [employer]. Denies chest pain or dyspnea. - Current Medication List Current Medications: Active Medications Acetaminophen (Tylenol -) 650 mg PO Q6H PRN PRN Reason: PAIN LEVEL 1-5 Last Admin: 04/16/18 09:07 Dose: 650 mg Artificial Tears (Artificial Tears) 1 drop OU Q12H PRN PRN Reason: DRY EYES Aspirin (Ecotrin -) [address] [facility] Last Admin: 04/16/18 09:09 Dose: 81 mg Atorvastatin Calcium (Lipitor -) [address] [facility] Last Admin: 04/16/18 21:45 Dose: 40 mg Calcium Acetate (Phoslo -) [address] [facility] Last Admin: 04/17/18 11:25 Dose: 667 mg Carvedilol (Coreg -) 12.[address] [facility] Last Admin: 04/16/18 21:46 Dose: 12.5 mg Citalopram Hydrobromide (Celexa -) [address] [facility] Last Admin: 04/16/18 09:09 Dose: 20 mg Clopidogrel Bisulfate (Plavix -) [address] [facility] Last Admin: 04/16/18 09:09 Dose: 75 mg Collagenase (Santyl -) [address] [facility]; Protocol Last Admin: 04/16/18 09:10 Dose: 1 applic Divalproex Sodium (Depakote -) [address] [facility] Last Admin: 04/16/18 21:47 Dose: 125 mg Docusate Sodium (Colace -) [address] [facility] Last Admin: 04/16/18 21:46 Dose: 300 mg Epoetin Jose Francisco (Epogen -) 12,000 unit IVPUSH ONCE ONE Stop: 04/17/18 12:03 Folic Acid (Folic Acid -) [address] [facility] Last Admin: 04/16/18 09:09 Dose: 1 mg Gabapentin (Neurontin -) [address] [facility] Last Admin: 04/17/18 06:13 Dose: 100 mg Haloperidol (Haldol -) [address] [facility] Last Admin: 04/16/18 21:47 Dose: 2 mg Sodium Chloride (Normal Saline -) 250 mls @ 3,000 mls/hr IV PRN PRN PRN Reason: Hypotension during Dialysis Dextrose/Sodium Chloride (D5-1/2ns -) 1,000 mls @ 40 mls/hr IV ASDIR [facility] Last Admin: 04/16/18 19:06 Dose: Not Given Piperacillin Sod/Tazobactam (Sod 2.25 gm/ Dextrose) 50 mls @ 100 mls/hr IVPB Q8H-IV [facility]IE; Protocol Last Admin: 04/17/18 09:12 Dose: 100 mls/hr Sodium Chloride (Normal Saline -) 250 mls @ 3,000 mls/hr IV PRN PRN PRN Reason: Hypotension during Dialysis Stop: 04/17/18 12:02 Insulin Aspart (Novolog Vial Sliding Scale -) 1 vial SQ [facility]; Protocol Last Admin: 04/17/18 11:25 Dose: Not Given Insulin Detemir (Levemir Vial) [address] [facility] Last Admin: 04/16/18 21:49 Dose: 30 units Mirtazapine (Remeron -) 7.[address] [facility] Last Admin: 04/16/18 21:48 Dose: 7.5 mg Multi-Ingredient Ointment (Zinc Oxide 20% Topical Oint) [address] [facility] Last Admin: 04/16/18 09:10 Dose: 1 gm Multivitamins (Total B With C -) [address] [facility] Last Admin: 04/16/18 09:07 Dose: 1 each Ranitidine HCl (Zantac -) [address] [facility] Last Admin: 04/16/18 09:09 Dose: 150 mg Tamsulosin HCl (Flomax -) 0.[address] [facility] Last Admin: 04/16/18 21:47 Dose: 0.4 mg - Objective Vital Signs: Vital Signs Temperature 98.6 F 04/17/18 09:11 Pulse Rate 61 04/17/18 09:11 Respiratory Rate 18 04/17/18 09:11 Blood Pressure 142/57 04/17/18 09:11 O2 Sat by Pulse Oximetry (%) 97 04/16/18 20:24 Constitutional: Yes: No Distress, Calm, Thin Neck: Yes: Supple Cardiovascular: Yes: Regular Rate and Rhythm Respiratory: Yes: Regular, CTA Bilaterally Gastrointestinal: Yes: Normal Bowel Sounds, Soft Edema: No Labs: CBC, BMP 04/15/18 20:20 04/15/18 06:30 INR, PTT INR 1.20 (0.83-1.09) H 03/28/18 22:22 Problem List - Problems (1) Pre-operative cardiovascular examination Code(s): Z01.810 - ENCOUNTER FOR PREPROCEDURAL CARDIOVASCULAR EXAMINATION (2) Diabetes Code(s): E11.9 - TYPE 2 DIABETES MELLITUS WITHOUT COMPLICATIONS Qualifiers: 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 type: type 1 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 complication status: with circulatory complication (3) ESRD (end stage renal disease) on dialysis Code(s): N18.6 - END STAGE RENAL DISEASE; Z99.2 - DEPENDENCE ON RENAL DIALYSIS (4) Eschar of heel Code(s): R23.4 - CHANGES IN SKIN TEXTURE (5) CAD (coronary artery disease) Code(s): I25.10 - ATHSCL HEART DISEASE OF [place] CORONARY ARTERY W/O ANG PCTRS (6) CHF (congestive heart failure) Code(s): I50.9 - HEART FAILURE, UNSPECIFIED (7) CAD (coronary artery disease) Code(s): I25.10 - ATHSCL HEART DISEASE OF [place] CORONARY ARTERY W/O ANG PCTRS Qualifiers: Coronary Disease-Associated Artery/Lesion type: [place] artery [place] vs. transplanted heart: [place] heart Associated angina: without angina Qualified Code(s): I25.10 - Atherosclerotic heart disease of [place] coronary artery without angina pectoris (8) HTN (hypertension) Code(s): I10 - ESSENTIAL (PRIMARY) HYPERTENSION Qualifiers: Hypertension type: essential hypertension Qualified Code(s): I10 - Essential (primary) hypertension (9) Hx of CABG Code(s): Z95.1 - PRESENCE OF AORTOCORONARY BYPASS GRAFT (10) Hypercholesterolemia Code(s): E78.00 - PURE HYPERCHOLESTEROLEMIA, UNSPECIFIED (11) PAD (peripheral artery disease) Code(s): I73.9 - PERIPHERAL VASCULAR DISEASE, UNSPECIFIED Assessment/Plan 12/19/2017 Normal LV size with mild-mod decrease LV fxn, mild STEPHEN, mild TR, MR, can't exclude MV vegetation 1. PAD s/p LE bypass, heel wound (non healing) s/p angioplasty right posterior tibial artery, plan for possible BKA 2. HTN 3. Hypercholesterolemia 4. DM 5. Diastolic LV dysfunction with class 0 NYHA classification LV failure 6. CAD s/p CABG, PCI/stent, demand ischemia 7. ESRD on HD PLAN: 1. No absolute contraindication in proceeding with vascular intervention in view of absence of ischemic symptoms, decompensated congestive heart failure or malignant arrhythmias. 2. Continue Carvedilol 12.5 bid 3. ASA 81 qd and Plavix 75 qd and Lipitor 40 qhs 4. Empiric antibiotic course and Wound care 5. DVT and GI prophylaxis
[2018-04-17] MEDS ORDERED: EPOETIN ALFA 10,000 UNIT, EPOETIN ALFA 2,000 UNIT IVPUSH ONE (14:15)
--- NOTE | 2018-04-17 14:20 | PN ---
Progress Note (short form) - Note Progress Note: Sleeping Left foot warm. Thigh swelling unchanged. Will wait to see if heel starts to improve. Problem List - Problems (1) PAD (peripheral artery disease) Code(s): I73.9 - PERIPHERAL VASCULAR DISEASE, UNSPECIFIED
--- NOTE | 2018-04-17 15:01 | OP ---
DATE OF OPERATION: 04/15/2018 SURGEON: Augustin Schofield MD PROCEDURE: Revascularization of left posterior tibial artery with atherectomy and angioplasty. PREOPERATIVE DIAGNOSIS: Gangrene of left heel. POSTOPERATIVE DIAGNOSIS: Gangrene of left heel. ANESTHESIA: Fractional. ANESTHESIOLOGIST: . ANGIOGRAPHIC FINDINGS: The left femoral and popliteal arteries were patent with calcified [place]. There was severe calcific tibial artery disease with occlusion of the anterior tibial artery and a severely stenotic perineal artery with limited runoff. The posterior tibial artery was patent. Upper calf occluded with multiple areas of stenosis. There were small plantar vessels seen in the foot and a small reconstituted dorsalis pedis artery. There were very poor collaterals seen going towards the heel. OPERATIVE PROCEDURE: Following routine patient identification with side and site verification, intravenous sedation was established. The left groin, leg, and ankle were prepped with ChloraPrep. A time-out was performed. Using real time duplex imaging, the let posterior tibial artery was identified at the level of the ankle. It had severely calcified but there was arterial flow seen with duplex. Lidocaine was infiltrated into the skin over the distal artery and was cannulated under ultrasound guidance using a micropuncture needle. A wire was passed proximally. The inner cannula of the micropuncture sheath was then advanced over the wire. Angiography was performed to confirm intraluminal placement. The proximal posterior tibia appeared to be narrowed but patent but there was very occlusion distal to the catheter entry site. The incision was made to access antegrade in order to try to open the distal stenosis. The catheter was removed from the distal posterior tibial artery and pressure applied until bleeding ceased. The proximal superficial femoral artery was then identified with ultrasound and it was cannulated with a micropuncture needle in an antegrade fashion. The needle was exchanged over wires and a 5 [place] sheath placed. Angiogram was then obtained. A stiff wire was advanced to the level of the knee and a long flat [place] sheath was advanced over the wire to the popliteal artery. The patient was then systemically heparinized. An angled wire catheter was then advanced into the proximal posterior tibial artery. A 0.014 inch wire was then advanced with the support catheter into the distal posterior tibial artery a cross the occlusion level of the ankle and into the tarsal artery in the foot. The catheter was advanced and the wire was exchange for a ViperWire. A CSI rotational atherectomy was then performed using a 1.25-mm solid crown. Atherectomy of the posterior tibial artery was performed at low and medium speeds. The artery was then balloon dilated with a 2-mm balloon distally and 2.5 mm balloons proximally. Repeat imaging revealed patent posterior tibial artery and sluggish flow at the level of the distal calf and ankle. The catheter was then exchanged back over the wire and nitroglycerin 200 mcg was infused through the catheter into the posterior tibial artery. Repeat imaging appeared unchanged. The catheter was removed. The sheath was then removed over a wire and the access sites sealed with a Mynx device. Pressure was applied until bleeding ceased. A sterile dressing was applied. The patient was taken to the recovery room in stable condition. Connor APARICIO/[id number]
[2018-04-17 15:30] LABS: HEMATOCRIT 26.3 % (35.4-49); HEMOGLOBIN 8.9 GM/dL (11.7-16.9); MCH 32.6 pg (25.7-33.7); MCHC 33.9 g/dl (32.0-35.9); MEAN CELL VOLUME 96.1 fl (80-96); MEAN PLT VOLUME 6.5 fl (7.5-11.1); PLATELET COUNT 382 K/MM3 (134-434); RBC 2.74 M/mm3 (4.00-5.60); RDW 16.6 % (11.9-15.9); WHITE BLOOD COUNT 10.2 K/mm3 (4.0-10.0)
[2018-04-17] MEDS ORDERED: PT OWN MED DRAWER 7, Y5N ONE (20:21)
[2018-04-17] MEDS: ATORVASTATIN CA 40 MG TABLET (FP) PO SCH (22:02)
[2018-04-17] MEDS: DOCUSATE SODIUM 100 MG CAPSULE (FP) PO SCH (22:02)
[2018-04-17] MEDS: MIRTAZAPINE 15 MG TABLET (FP) PO SCH (22:03)
[2018-04-17] MEDS: TAMSULOSIN HCL 0.4 MG CAP.ER.24H (FP) PO SCH (22:03)
[2018-04-17] MEDS: HALOPERIDOL 1 MG TABLET (FP) PO SCH (22:04)
[2018-04-17] MEDS: INSULIN (LEVEMIR) 100 UNITS/ML UNITS SQ SCH (22:07)
[2018-04-17] MEDS: DEXTROSE 5%-0.45% SALINE 1,000 ML IV SCH (22:08)
[2018-04-18] MEDS ORDERED: DEXTROSE 5%-WATER - 50 ML IVPB ONE ×3 (01:05→17:13)
[2018-04-18] MEDS ORDERED: PIPERACILLIN/TAZOBACTAM 2.25 GM VIAL IVPB ONE ×3 (01:05→17:13)
[2018-04-18] MEDS: PIPERACILLIN/TAZOB 2.25 GM 2.25 GM in DEXTROSE 5%-WATER - 50 ML IVPB SCH ×3 (01:29→17:24)
[2018-04-18] MEDS: GABAPENTIN 100 MG CAPSULE (FP) PO SCH ×3 (05:42→21:45)
[2018-04-18] MEDS: INSULIN SLIDING SCALE (NOVOLOG) 1 VIAL SQ SCH ×4 (06:03→21:46)
[2018-04-18] MEDS: CALCIUM ACETATE 667 MG CAPSULE (FP) PO SCH ×4 (10:00→17:24)
[2018-04-18] MEDS: ASPIRIN COATED 81 MG TABLET.EC PO SCH (11:12)
[2018-04-18] MEDS: VITAMIN B COMPLEX W/C COMBO TABLET (FP) PO SCH (11:12)
[2018-04-18] MEDS: CLOPIDOGREL BISULFATE 75 MG TABLET (FP) PO SCH (11:12)
[2018-04-18] MEDS: COLLAGENASE CLOSTRIDIUM HIST. 30 GRAMS TUBE TP SCH (11:12)
[2018-04-18] MEDS: FOLIC ACID 1 MG TABLET (FP) PO SCH (11:13)
[2018-04-18] MEDS: CITALOPRAM HYDROBROMIDE 20 MG TABLET (FP) PO SCH (11:13)
[2018-04-18] MEDS: CARVEDILOL 12.5 MG TABLET (FP) PO SCH ×2 (11:14→21:43)
[2018-04-18] MEDS: RANITIDINE HCL 150 MG TABLET (FP) PO SCH (11:14)
[2018-04-18] MEDS: DIVALPROEX SODIUM 125 MG TABLET E.C. PO SCH ×2 (11:27→21:50)
--- NOTE | 2018-04-18 11:29 | PN ---
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 Denies chest pain or dyspnea. - Current Medication List Current Medications: Active Medications Acetaminophen (Tylenol -) 650 mg PO Q6H PRN PRN Reason: PAIN LEVEL 1-5 Last Admin: 04/16/18 09:07 Dose: 650 mg Artificial Tears (Artificial Tears) 1 drop OU Q12H PRN PRN Reason: DRY EYES Aspirin (Ecotrin -) 81 mg PO DAILY [facility] Last Admin: 04/18/18 11:12 Dose: 81 mg Atorvastatin Calcium (Lipitor -) 40 mg PO HS [facility] Last Admin: 04/17/18 22:02 Dose: 40 mg Calcium Acetate (Phoslo -) 667 mg PO TIDCM [facility] Last Admin: 04/18/18 11:11 Dose: 667 mg Carvedilol (Coreg -) 12.5 mg PO BID [facility] Last Admin: 04/18/18 11:14 Dose: 12.5 mg Citalopram Hydrobromide (Celexa -) 20 mg PO DAILY [facility] Last Admin: 04/18/18 11:13 Dose: 20 mg Clopidogrel Bisulfate (Plavix -) 75 mg PO DAILY [facility] Last Admin: 04/18/18 11:12 Dose: 75 mg Collagenase (Santyl -) 1 applic TP DAILY [facility]; Protocol Last Admin: 04/18/18 11:12 Dose: 1 applic Divalproex Sodium (Depakote -) 125 mg PO BID [facility] Last Admin: 04/18/18 11:27 Dose: 125 mg Docusate Sodium (Colace -) 300 mg PO HS [facility] Last Admin: 04/17/18 22:02 Dose: 300 mg Folic Acid (Folic Acid -) 1 mg PO DAILY [facility] Last Admin: 04/18/18 11:13 Dose: 1 mg Gabapentin (Neurontin -) 100 mg PO TID [facility] Last Admin: 04/18/18 05:42 Dose: 100 mg Haloperidol (Haldol -) 2 mg PO HS [facility] Last Admin: 04/17/18 22:04 Dose: 2 mg Sodium Chloride (Normal Saline -) 250 mls @ 3,000 mls/hr IV PRN PRN PRN Reason: Hypotension during Dialysis Dextrose/Sodium Chloride (D5-1/2ns -) 1,000 mls @ 40 mls/hr IV ASDIR [facility] Last Admin: 04/17/18 22:08 Dose: Not Given Piperacillin Sod/Tazobactam (Sod 2.25 gm/ Dextrose) 50 mls @ 100 mls/hr IVPB Q8H-IV [facility]; Protocol Last Admin: 04/18/18 11:14 Dose: 100 mls/hr Insulin Aspart (Novolog Vial Sliding Scale -) 1 vial SQ [facility]; Protocol Last Admin: 04/18/18 11:26 Dose: Not Given Insulin Detemir (Levemir Vial) 30 units SQ [facility] Last Admin: 04/17/18 22:07 Dose: 30 units Mirtazapine (Remeron -) 7.5 mg PO HS [facility] Last Admin: 04/17/18 22:03 Dose: 7.5 mg Multi-Ingredient Ointment (Zinc Oxide 20% Topical Oint) 1 gm TP DAILY [facility] Last Admin: 04/17/18 13:10 Dose: 1 applic Multivitamins (Total B With C -) 1 each PO DAILY [facility] Last Admin: 04/18/18 11:12 Dose: 1 each Ranitidine HCl (Zantac -) 150 mg PO DAILY [facility] Last Admin: 04/18/18 11:14 Dose: 150 mg Tamsulosin HCl (Flomax -) 0.4 mg PO HS [facility] Last Admin: 04/17/18 22:03 Dose: 0.4 mg - Objective Vital Signs: Vital Signs Temperature 98.4 F 04/18/18 05:56 Pulse Rate 63 04/18/18 05:56 Respiratory Rate 20 04/18/18 05:56 Blood Pressure 136/54 04/18/18 05:56 O2 Sat by Pulse Oximetry (%) 98 04/17/18 21:00 Constitutional: Yes: No Distress, Calm, Thin Neck: Yes: Supple Cardiovascular: Yes: Regular Rate and Rhythm Respiratory: Yes: Regular, Diminished Gastrointestinal: Yes: Normal Bowel Sounds, Soft Edema: No Labs: CBC, BMP 04/17/18 15:15 04/15/18 06:30 INR, PTT INR 1.20 (0.83-1.09) H 03/28/18 22:22 Problem List - Problems (1) Pre-operative cardiovascular examination Code(s): Z01.810 - ENCOUNTER FOR PREPROCEDURAL CARDIOVASCULAR EXAMINATION (2) Diabetes Code(s): E11.9 - TYPE 2 DIABETES MELLITUS WITHOUT COMPLICATIONS Qualifiers: 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 type: type 1 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 complication status: with circulatory complication (3) ESRD (end stage renal disease) on dialysis Code(s): N18.6 - END STAGE RENAL DISEASE; Z99.2 - DEPENDENCE ON RENAL DIALYSIS (4) Eschar of heel Code(s): R23.4 - CHANGES IN SKIN TEXTURE (5) CAD (coronary artery disease) Code(s): I25.10 - ATHSCL HEART DISEASE OF [place] CORONARY ARTERY W/O ANG PCTRS (6) CHF (congestive heart failure) Code(s): I50.9 - HEART FAILURE, UNSPECIFIED (7) CAD (coronary artery disease) Code(s): I25.10 - ATHSCL HEART DISEASE OF [place] CORONARY ARTERY W/O ANG PCTRS Qualifiers: Coronary Disease-Associated Artery/Lesion type: [place] artery [place] vs. transplanted heart: [place] heart Associated angina: without angina Qualified Code(s): I25.10 - Atherosclerotic heart disease of [place] coronary artery without angina pectoris (8) HTN (hypertension) Code(s): I10 - ESSENTIAL (PRIMARY) HYPERTENSION Qualifiers: Hypertension type: essential hypertension Qualified Code(s): I10 - Essential (primary) hypertension (9) Hx of CABG Code(s): Z95.1 - PRESENCE OF AORTOCORONARY BYPASS GRAFT (10) Hypercholesterolemia Code(s): E78.00 - PURE HYPERCHOLESTEROLEMIA, UNSPECIFIED (11) PAD (peripheral artery disease) Code(s): I73.9 - PERIPHERAL VASCULAR DISEASE, UNSPECIFIED Assessment/Plan 12/19/2017 Normal LV size with mild-mod decrease LV fxn, mild STEPHEN, mild TR, MR, can't exclude MV vegetation 1. PAD s/p LE bypass, heel wound (non healing) s/p angioplasty right posterior tibial artery, plan for possible BKA 2. HTN 3. Hypercholesterolemia 4. DM 5. Diastolic LV dysfunction with class 0 NYHA classification LV failure 6. CAD s/p CABG, PCI/stent, demand ischemia 7. ESRD on HD PLAN: 1. No absolute contraindication in proceeding with vascular intervention in view of absence of ischemic symptoms, decompensated congestive heart failure or malignant arrhythmias. 2. Continue Carvedilol 12.5 bid, ASA 81 qd, Plavix 75 qd and Lipitor 40 qhs 3. Empiric antibiotic course and Wound care 4. DVT and GI prophylaxis
--- NOTE | 2018-04-18 11:48 | PN ---
Progress Note (short form) - Note Progress Note: Patient seen and examined s/p revascularisation confused complaints of pain both feet Vital Signs - 24 hr 04/17/18 04/17/18 04/17/18 14:06 14:40 14:45 Temperature 98.2 F 98.1 F Pulse Rate 68 68 67 Respiratory 20 18 18 Rate Blood Pressure 141/56 140/62 153/60 O2 Sat by Pulse Oximetry (%) 04/17/18 04/17/18 04/17/18 15:15 15:45 16:15 Temperature Pulse Rate 64 65 63 Respiratory 18 18 18 Rate Blood Pressure 142/57 144/53 156/61 O2 Sat by Pulse Oximetry (%) 04/17/18 04/17/18 04/17/18 16:45 17:15 17:45 Temperature Pulse Rate 66 63 65 Respiratory 18 18 18 Rate Blood Pressure 146/104 154/55 147/58 O2 Sat by Pulse Oximetry (%) 04/17/18 04/17/18 04/17/18 18:15 18:20 18:40 Temperature 97.7 F Pulse Rate 60 68 67 Respiratory 18 18 20 Rate Blood Pressure 147/57 152/61 153/59 O2 Sat by Pulse Oximetry (%) 04/17/18 04/17/18 04/18/18 21:00 22:00 01:34 Temperature 98.8 F 97.6 F Pulse Rate 74 74 Respiratory 20 20 20 Rate Blood Pressure 143/61 143/57 O2 Sat by Pulse 98 Oximetry (%) 04/18/18 05:56 Temperature 98.4 F Pulse Rate 63 Respiratory 20 Rate Blood Pressure 136/54 O2 Sat by Pulse Oximetry (%) Current Medications Generic Name Dose Route Start Last Admin Trade Name Freq PRN Reason Stop Dose Admin Acetaminophen 650 mg 04/15/18 19:05 04/16/18 09:07 Tylenol - PO 650 mg Q6H PRN Administration PAIN LEVEL 1-5 Artificial Tears 1 drop 04/15/18 19:05 Artificial Tears OU Q12H PRN DRY EYES Aspirin 81 mg 04/16/18 10:00 04/18/18 11:12 Ecotrin - PO 81 mg DAILY [facility] Administration Atorvastatin Calcium 40 mg 04/15/18 22:00 04/17/18 22:02 Lipitor - PO 40 mg HS [facility] Administration Calcium Acetate 667 mg 04/16/18 08:00 04/17/18 18:39 Phoslo - PO 667 mg TIDCM [facility] Administration Carvedilol 12.5 mg 04/15/18 22:00 04/18/18 11:14 Coreg - PO 12.5 mg BID [facility] Administration Citalopram Hydrobromide 20 mg 04/16/18 10:00 04/18/18 11:13 Celexa - PO 20 mg DAILY [facility] Administration Clopidogrel Bisulfate 75 mg 04/16/18 10:00 04/18/18 11:12 Plavix - PO 75 mg DAILY [facility] Administration Collagenase 1 applic 04/16/18 10:00 04/18/18 11:12 Santyl - TP 1 applic DAILY [facility] Administration Protocol Divalproex Sodium 125 mg 04/15/18 22:00 04/18/18 11:27 Depakote - PO 125 mg BID [facility] Administration Docusate Sodium 300 mg 04/15/18 22:00 04/17/18 22:02 Colace - PO 300 mg HS [facility] Administration Folic Acid 1 mg 04/16/18 10:00 04/18/18 11:13 Folic Acid - PO 1 mg DAILY [facility] Administration Gabapentin 100 mg 04/15/18 22:00 04/18/18 05:42 Neurontin - PO 100 mg TID [facility] Administration Haloperidol 2 mg 04/15/18 22:00 04/17/18 22:04 Haldol - PO 2 mg HS [facility] Administration Sodium Chloride 250 mls @ 3,000 mls/hr 04/15/18 20:14 Normal Saline - IV PRN PRN Hypotension during Dialysis Dextrose/Sodium Chloride 1,000 mls @ 40 mls/hr 04/15/18 19:05 04/17/18 22:08 D5-1/2ns - IV Not Given ASDIR [facility] Piperacillin Sod/Tazobactam 50 mls @ 100 mls/hr 04/16/18 02:00 04/18/18 11:14 Sod 2.25 gm/ Dextrose IVPB 100 mls/hr Q8H-IV [facility] Administration Protocol Insulin Aspart 1 vial 04/15/18 22:00 04/18/18 11:26 Novolog Vial Sliding Scale - SQ Not Given ACHS [facility] Protocol Insulin Detemir 30 units 04/15/18 22:00 04/17/18 22:07 Levemir Vial SQ 30 units HS [facility] Administration Mirtazapine 7.5 mg 04/15/18 22:00 04/17/18 22:03 Remeron - PO 7.5 mg HS [facility] Administration Multi-Ingredient Ointment 1 gm 04/16/18 10:00 04/17/18 13:10 Zinc Oxide 20% Topical Oint TP 1 applic DAILY [facility] Administration Multivitamins 1 each 04/16/18 10:00 04/18/18 11:12 Total B With C - PO 1 each DAILY [facility] Administration Ranitidine HCl 150 mg 04/16/18 10:00 04/18/18 11:14 Zantac - PO 150 mg DAILY [facility] Administration Tamsulosin HCl 0.4 mg 04/15/18 22:00 04/17/18 22:03 Flomax - PO 0.4 mg HS [facility] Administration Laboratory Results - last 24 hr 04/17/18 04/17/18 04/17/18 15:15 18:40 22:07 WBC 10.2 H RBC 2.74 L Hgb 8.9 L Hct 26.3 L MCV 96.1 H MCH 32.6 MCHC 33.9 RDW 16.6 H Plt Count 382 MPV 6.5 L POC Glucometer 253 280 04/18/18 04/18/18 05:41 11:25 WBC RBC Hgb Hct MCV MCH MCHC RDW Plt Count MPV POC Glucometer 130 64 exam- Constitutional: Yes: No Distress, Comfortable. Neck: Yes: Supple. no jvd Cardiovascular: Yes: Regular Rate and Rhythm Respiratory: Yes: Diminished Gastrointestinal: Yes: Soft/ non tender Edema: No Wound/Incision: Yes: Bilateral heel ulcers -legs are warm , feet feel cool Neurological: Yes: Alert Psychiatric: Yes: Alert,calm Assessment/Plan clinically stable Continue present care abx-- Zosyn bone scan-ve Arterial doppler-- Atherosclerotic disease monitor bgm dialysis per renal antibiotics pain control As per vascular surgeon , will wait to see if pt needs amputation or not Problem List - Problems (1) Diabetes Code(s): E11.9 - TYPE 2 DIABETES MELLITUS WITHOUT COMPLICATIONS Qualifiers: 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 type: type 1 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 complication status: with circulatory complication (2) ESRD (end stage renal disease) on dialysis Code(s): N18.6 - END STAGE RENAL DISEASE; Z99.2 - DEPENDENCE ON RENAL DIALYSIS (3) Infected pressure ulcer Code(s): L89.90 - PRESSURE ULCER OF UNSPECIFIED SITE, UNSPECIFIED STAGE; L08.9 - LOCAL INFECTION OF THE SKIN AND SUBCUTANEOUS TISSUE, UNSP (4) Syncope Code(s): R55 - SYNCOPE AND COLLAPSE (5) Acute metabolic encephalopathy due to hypoglycemia Code(s): G93.41 - METABOLIC ENCEPHALOPATHY; E16.2 - HYPOGLYCEMIA, UNSPECIFIED (6) Anemia Code(s): D64.9 - ANEMIA, UNSPECIFIED (7) CAD (coronary artery disease) Code(s): I25.10 - ATHSCL HEART DISEASE OF [place] CORONARY ARTERY W/O ANG PCTRS (8) ESRD (end stage renal disease) on dialysis Code(s): N18.6 - END STAGE RENAL DISEASE; Z99.2 - DEPENDENCE ON RENAL DIALYSIS
[2018-04-18] MEDS: ACETAMINOPHEN 325 MG TABLET (FP) PO PRN (12:19)
[2018-04-18] MEDS: ZINC OXIDE 20% TOPICAL OINTMENT 454 GM JAR TP SCH (12:20)
--- NOTE | 2018-04-18 14:21 | PN ---
Progress Note, Physician History of Present Illness: Pt seen and examined at bedside. He appears drowsy today. - Current Medication List Current Medications: Active Medications Acetaminophen (Tylenol -) 650 mg PO Q6H PRN PRN Reason: PAIN LEVEL 1-5 Last Admin: 04/18/18 12:19 Dose: 650 mg Artificial Tears (Artificial Tears) 1 drop OU Q12H PRN PRN Reason: DRY EYES Aspirin (Ecotrin -) 81 mg PO DAILY [facility] Last Admin: 04/18/18 11:12 Dose: 81 mg Atorvastatin Calcium (Lipitor -) 40 mg PO HS [facility] Last Admin: 04/17/18 22:02 Dose: 40 mg Calcium Acetate (Phoslo -) 667 mg PO TIDCM [facility] Last Admin: 04/18/18 13:07 Dose: 667 mg Carvedilol (Coreg -) 12.5 mg PO BID [facility] Last Admin: 04/18/18 11:14 Dose: 12.5 mg Citalopram Hydrobromide (Celexa -) 20 mg PO DAILY [facility] Last Admin: 04/18/18 11:13 Dose: 20 mg Clopidogrel Bisulfate (Plavix -) 75 mg PO DAILY [facility] Last Admin: 04/18/18 11:12 Dose: 75 mg Collagenase (Santyl -) 1 applic TP DAILY [facility]; Protocol Last Admin: 04/18/18 11:12 Dose: 1 applic Divalproex Sodium (Depakote -) 125 mg PO BID [facility] Last Admin: 04/18/18 11:27 Dose: 125 mg Docusate Sodium (Colace -) 300 mg PO [facility] Last Admin: 04/17/18 22:02 Dose: 300 mg Folic Acid (Folic Acid -) 1 mg PO DAILY [facility] Last Admin: 04/18/18 11:13 Dose: 1 mg Gabapentin (Neurontin -) 100 mg PO TID [facility] Last Admin: 04/18/18 05:42 Dose: 100 mg Haloperidol (Haldol -) 2 mg PO HS [facility] Last Admin: 04/17/18 22:04 Dose: 2 mg Sodium Chloride (Normal Saline -) 250 mls @ 3,000 mls/hr IV PRN PRN PRN Reason: Hypotension during Dialysis Dextrose/Sodium Chloride (D5-1/2ns -) 1,000 mls @ 40 mls/hr IV ASDIR [facility] Last Admin: 04/17/18 22:08 Dose: Not Given Piperacillin Sod/Tazobactam (Sod 2.25 gm/ Dextrose) 50 mls @ 100 mls/hr IVPB Q8H-IV [facility]; Protocol Last Admin: 04/18/18 11:14 Dose: 100 mls/hr Insulin Aspart (Novolog Vial Sliding Scale -) 1 vial SQ ACHS [facility]; Protocol Last Admin: 04/18/18 11:26 Dose: Not Given Insulin Detemir (Levemir Vial) 30 units SQ [facility] Last Admin: 04/17/18 22:07 Dose: 30 units Mirtazapine (Remeron -) 7.5 mg PO HS [facility] Last Admin: 04/17/18 22:03 Dose: 7.5 mg Multi-Ingredient Ointment (Zinc Oxide 20% Topical Oint) 1 gm TP DAILY [facility] Last Admin: 04/18/18 12:20 Dose: 1 applic Multivitamins (Total B With C -) 1 each PO DAILY [facility] Last Admin: 04/18/18 11:12 Dose: 1 each Ranitidine HCl (Zantac -) 150 mg PO DAILY [facility] Last Admin: 04/18/18 11:14 Dose: 150 mg Tamsulosin HCl (Flomax -) 0.4 mg PO HS [facility] Last Admin: 04/17/18 22:03 Dose: 0.4 mg - Objective Vital Signs: Vital Signs Temperature 98.6 F 04/18/18 10:00 Pulse Rate 69 04/18/18 10:00 Respiratory Rate 20 04/18/18 10:00 Blood Pressure 156/60 04/18/18 10:00 O2 Sat by Pulse Oximetry (%) 98 04/17/18 21:00 Constitutional: Yes: Calm Eyes: Yes: Conjunctiva Clear HENT: Yes: Atraumatic Cardiovascular: Yes: S1, S2 Respiratory: Yes: CTA Bilaterally Gastrointestinal: Yes: Soft Genitourinary: Yes: WNL Musculoskeletal: Yes: WNL Edema: No Integumentary: Yes: WNL Wound/Incision: Yes: Dressing Dry and Intact Neurological: Yes: Confusion Labs: CBC, BMP 04/17/18 15:15 04/15/18 06:30 INR, PTT INR 1.20 (0.83-1.09) H 03/28/18 22:22 Problem List - Problems (1) Diabetes Code(s): E11.9 - TYPE 2 DIABETES MELLITUS WITHOUT COMPLICATIONS Qualifiers: 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 type: type 1 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 complication status: with circulatory complication (2) ESRD (end stage renal disease) on dialysis Code(s): N18.6 - END STAGE RENAL DISEASE; Z99.2 - DEPENDENCE ON RENAL DIALYSIS (3) Syncope Code(s): R55 - SYNCOPE AND COLLAPSE (4) Anemia Code(s): D64.9 - ANEMIA, UNSPECIFIED Assessment/Plan Current Medications Generic Name Dose Route Start Last Admin Trade Name Freq PRN Reason Stop Dose Admin Acetaminophen 650 mg 04/15/18 19:05 04/18/18 12:19 Tylenol - PO 650 mg Q6H PRN Administration PAIN LEVEL 1-5 Artificial Tears 1 drop 04/15/18 19:05 Artificial Tears OU Q12H PRN DRY EYES Aspirin 81 mg 04/16/18 10:00 04/18/18 11:12 Ecotrin - PO 81 mg DAILY [facility] Administration Atorvastatin Calcium 40 mg 04/15/18 22:00 04/17/18 22:02 Lipitor - PO 40 mg HS [facility] Administration Calcium Acetate 667 mg 04/16/18 08:00 04/18/18 13:07 Phoslo - PO 667 mg TIDCM [facility] Administration Carvedilol 12.5 mg 04/15/18 22:00 04/18/18 11:14 Coreg - PO 12.5 mg BID [facility] Administration Citalopram Hydrobromide 20 mg 04/16/18 10:00 04/18/18 11:13 Celexa - PO 20 mg DAILY [facility] Administration Clopidogrel Bisulfate 75 mg 04/16/18 10:00 04/18/18 11:12 Plavix - PO 75 mg DAILY [facility] Administration Collagenase 1 applic 04/16/18 10:00 04/18/18 11:12 Santyl - TP 1 applic DAILY [facility] Administration Protocol Divalproex Sodium 125 mg 04/15/18 22:00 04/18/18 11:27 Depakote - PO 125 mg BID [facility] Administration Docusate Sodium 300 mg 04/15/18 22:00 04/17/18 22:02 Colace - PO 300 mg HS [facility] Administration Folic Acid 1 mg 04/16/18 10:00 04/18/18 11:13 Folic Acid - PO 1 mg DAILY [facility] Administration Gabapentin 100 mg 04/15/18 22:00 04/18/18 05:42 Neurontin - PO 100 mg TID [facility] Administration Haloperidol 2 mg 04/15/18 22:00 04/17/18 22:04 Haldol - PO 2 mg HS [facility] Administration Sodium Chloride 250 mls @ 3,000 mls/hr 04/15/18 20:14 Normal Saline - IV PRN PRN Hypotension during Dialysis Dextrose/Sodium Chloride 1,000 mls @ 40 mls/hr 04/15/18 19:05 04/17/18 22:08 D5-1/2ns - IV Not Given ASDIR [facility] Piperacillin Sod/Tazobactam 50 mls @ 100 mls/hr 04/16/18 02:00 04/18/18 11:14 Sod 2.25 gm/ Dextrose IVPB 100 mls/hr Q8H-IV [facility] Administration Protocol Insulin Aspart 1 vial 04/15/18 22:00 04/18/18 11:26 Novolog Vial Sliding Scale - SQ Not Given ACHS [facility] Protocol Insulin Detemir 30 units 04/15/18 22:00 04/17/18 22:07 Levemir Vial SQ 30 units HS [facility] Administration Mirtazapine 7.5 mg 04/15/18 22:00 04/17/18 22:03 Remeron - PO 7.5 mg HS [facility] Administration Multi-Ingredient Ointment 1 gm 04/16/18 10:00 04/18/18 12:20 Zinc Oxide 20% Topical Oint TP 1 applic DAILY [facility] Administration Multivitamins 1 each 04/16/18 10:00 04/18/18 11:12 Total B With C - PO 1 each DAILY [facility] Administration Ranitidine HCl 150 mg 04/16/18 10:00 04/18/18 11:14 Zantac - PO 150 mg DAILY [facility] Administration Tamsulosin HCl 0.4 mg 04/15/18 22:00 04/17/18 22:03 Flomax - PO 0.4 mg HS [facility] Administration Impression 1. ESRD 2. anemia 3. HTN 4. Chol 5. DM 6. BPH 7. CAD 8. hypoglycemia 9. CHF 10. syncope 11. depression 12. PVD Plan - HD in am - can stop fluids - psych eval to adjust meds, pt has been more drowsy - cont wound care - cont epo - renal diet Dr Donovan
[2018-04-18] MEDS ORDERED: PT OWN MED DRAWER 7, Y5N ONE (21:15)
[2018-04-18] MEDS: DEXTROSE 5%-0.45% SALINE 1,000 ML IV SCH (21:42)
[2018-04-18] MEDS: MIRTAZAPINE 15 MG TABLET (FP) PO SCH (21:43)
[2018-04-18] MEDS: DOCUSATE SODIUM 100 MG CAPSULE (FP) PO SCH (21:44)
[2018-04-18] MEDS: HALOPERIDOL 1 MG TABLET (FP) PO SCH (21:44)
[2018-04-18] MEDS: INSULIN (LEVEMIR) 100 UNITS/ML UNITS SQ SCH (21:45)
[2018-04-18] MEDS: TAMSULOSIN HCL 0.4 MG CAP.ER.24H (FP) PO SCH (21:45)
[2018-04-18] MEDS: ATORVASTATIN CA 40 MG TABLET (FP) PO SCH (21:45)
[2018-04-19] MEDS ORDERED: DEXTROSE 5%-WATER - 50 ML IVPB ONE ×2 (00:55→20:19)
[2018-04-19] MEDS ORDERED: PIPERACILLIN/TAZOBACTAM 2.25 GM VIAL IVPB ONE ×3 (00:55→20:19)
[2018-04-19] MEDS: PIPERACILLIN/TAZOB 2.25 GM 2.25 GM in DEXTROSE 5%-WATER - 50 ML IVPB SCH ×3 (01:59→22:45)
[2018-04-19] MEDS: GABAPENTIN 100 MG CAPSULE (FP) PO SCH ×3 (05:37→21:04)
[2018-04-19] MEDS: INSULIN SLIDING SCALE (NOVOLOG) 1 VIAL SQ SCH ×4 (06:18→22:52)
[2018-04-19] MEDS ORDERED: PT OWN MED DRAWER 7, Y5N ONE ×2 (08:43→11:03)
[2018-04-19] MEDS ORDERED: DEXTROSE 5%-WATER - 100 ML IVPB ONE (08:44)
--- NOTE | 2018-04-19 09:39 | PN ---
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 Denies chest pain or dyspnea. - Current Medication List Current Medications: Active Medications Acetaminophen (Tylenol -) 650 mg PO Q6H PRN PRN Reason: PAIN LEVEL 1-5 Last Admin: 04/18/18 12:19 Dose: 650 mg Artificial Tears (Artificial Tears) 1 drop OU Q12H PRN PRN Reason: DRY EYES Aspirin (Ecotrin -) 81 mg PO DAILY [facility] Last Admin: 04/18/18 11:12 Dose: 81 mg Atorvastatin Calcium (Lipitor -) 40 mg PO HS [facility] Last Admin: 04/18/18 21:45 Dose: 40 mg Calcium Acetate (Phoslo -) 667 mg PO TIDCM [facility] Last Admin: 04/18/18 17:24 Dose: 667 mg Carvedilol (Coreg -) 12.5 mg PO BID [facility] Last Admin: 04/18/18 21:43 Dose: 12.5 mg Citalopram Hydrobromide (Celexa -) 20 mg PO DAILY [facility] Last Admin: 04/18/18 11:13 Dose: 20 mg Clopidogrel Bisulfate (Plavix -) 75 mg PO DAILY [facility] Last Admin: 04/18/18 11:12 Dose: 75 mg Collagenase (Santyl -) 1 applic TP DAILY [facility]; Protocol Last Admin: 04/18/18 11:12 Dose: 1 applic Divalproex Sodium (Depakote -) 125 mg PO BID [facility] Last Admin: 04/18/18 21:50 Dose: 125 mg Docusate Sodium (Colace -) 300 mg PO HS [facility] Last Admin: 04/18/18 21:44 Dose: 300 mg Epoetin Jose Francisco 10,000 unit/ (Epoetin Jose Francisco 2,000 unit) 12,000 unit IVPUSH ONCE ONE Stop: 04/19/18 10:01 Folic Acid (Folic Acid -) 1 mg PO DAILY [facility] Last Admin: 04/18/18 11:13 Dose: 1 mg Gabapentin (Neurontin -) 100 mg PO TID [facility] Last Admin: 04/19/18 05:37 Dose: 100 mg Haloperidol (Haldol -) 2 mg PO HS [facility] Last Admin: 04/18/18 21:44 Dose: 2 mg Sodium Chloride (Normal Saline -) 250 mls @ 3,000 mls/hr IV PRN PRN PRN Reason: Hypotension during Dialysis Dextrose/Sodium Chloride (D5-1/2ns -) 1,000 mls @ 40 mls/hr IV ASDIR [facility] Last Admin: 04/18/18 21:42 Dose: Not Given Piperacillin Sod/Tazobactam (Sod 2.25 gm/ Dextrose) 50 mls @ 100 mls/hr IVPB Q8H-IV [facility]; Protocol Last Admin: 04/19/18 01:59 Dose: 100 mls/hr Sodium Chloride (Normal Saline -) 250 mls @ 3,000 mls/hr IV PRN PRN PRN Reason: Hypotension during Dialysis Stop: 04/19/18 10:01 Insulin Aspart (Novolog Vial Sliding Scale -) 1 vial SQ [facility]; Protocol Last Admin: 04/19/18 06:18 Dose: Not Given Insulin Detemir (Levemir Vial) 30 units SQ [facility] Last Admin: 04/18/18 21:45 Dose: 30 units Mirtazapine (Remeron -) 7.5 mg PO HS [facility] Last Admin: 04/18/18 21:43 Dose: 7.5 mg Multi-Ingredient Ointment (Zinc Oxide 20% Topical Oint) 1 gm TP DAILY [facility] Last Admin: 04/18/18 12:20 Dose: 1 applic Multivitamins (Total B With C -) 1 each PO DAILY [facility] Last Admin: 04/18/18 11:12 Dose: 1 each Ranitidine HCl (Zantac -) 150 mg PO DAILY [facility] Last Admin: 04/18/18 11:14 Dose: 150 mg Tamsulosin HCl (Flomax -) 0.4 mg PO [facility] Last Admin: 04/18/18 21:45 Dose: 0.4 mg - Objective Vital Signs: Vital Signs Temperature 98.1 F 04/19/18 05:50 Pulse Rate 67 04/19/18 05:50 Respiratory Rate 20 04/19/18 05:50 Blood Pressure 146/56 04/19/18 05:50 O2 Sat by Pulse Oximetry (%) 96 04/18/18 21:56 Constitutional: Yes: No Distress, Calm, Thin Neck: Yes: Supple Cardiovascular: Yes: Regular Rate and Rhythm Respiratory: Yes: Regular, CTA Bilaterally, On Nasal O2 Gastrointestinal: Yes: Normal Bowel Sounds, Soft Edema: No Wound/Incision: Yes: Dressing Dry and Intact Labs: CBC, BMP 04/17/18 15:15 04/15/18 06:30 INR, PTT INR 1.20 (0.83-1.09) H 03/28/18 22:22 Problem List - Problems (1) Pre-operative cardiovascular examination Code(s): Z01.810 - ENCOUNTER FOR PREPROCEDURAL CARDIOVASCULAR EXAMINATION (2) Diabetes Code(s): E11.9 - TYPE 2 DIABETES MELLITUS WITHOUT COMPLICATIONS Qualifiers: 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 type: type 1 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 complication status: with circulatory complication (3) ESRD (end stage renal disease) on dialysis Code(s): N18.6 - END STAGE RENAL DISEASE; Z99.2 - DEPENDENCE ON RENAL DIALYSIS (4) Eschar of heel Code(s): R23.4 - CHANGES IN SKIN TEXTURE (5) CAD (coronary artery disease) Code(s): I25.10 - ATHSCL HEART DISEASE OF [place] CORONARY ARTERY W/O ANG PCTRS (6) CHF (congestive heart failure) Code(s): I50.9 - HEART FAILURE, UNSPECIFIED (7) CAD (coronary artery disease) Code(s): I25.10 - ATHSCL HEART DISEASE OF [place] CORONARY ARTERY W/O ANG PCTRS Qualifiers: Coronary Disease-Associated Artery/Lesion type: [place] artery [place] vs. transplanted heart: [place] heart Associated angina: without angina Qualified Code(s): I25.10 - Atherosclerotic heart disease of [place] coronary artery without angina pectoris (8) HTN (hypertension) Code(s): I10 - ESSENTIAL (PRIMARY) HYPERTENSION Qualifiers: Hypertension type: essential hypertension Qualified Code(s): I10 - Essential (primary) hypertension (9) Hx of CABG Code(s): Z95.1 - PRESENCE OF AORTOCORONARY BYPASS GRAFT (10) Hypercholesterolemia Code(s): E78.00 - PURE HYPERCHOLESTEROLEMIA, UNSPECIFIED (11) PAD (peripheral artery disease) Code(s): I73.9 - PERIPHERAL VASCULAR DISEASE, UNSPECIFIED Assessment/Plan 12/19/2017 Normal LV size with mild-mod decrease LV fxn, mild STEPHEN, mild TR, MR, can't exclude MV vegetation 1. PAD s/p LE bypass, heel wound (non healing) s/p angioplasty right posterior tibial artery, plan for possible BKA 2. HTN 3. Hypercholesterolemia 4. DM 5. Diastolic LV dysfunction with class 0 NYHA classification LV failure 6. CAD s/p CABG, PCI/stent, demand ischemia 7. ESRD on HD 8. Anemia of CKD PLAN: 1. No absolute contraindication in proceeding with vascular intervention in view of absence of ischemic symptoms, decompensated congestive heart failure or malignant arrhythmias. 2. Continue Carvedilol 12.5 bid, ASA 81 qd, Plavix 75 qd and Lipitor 40 qhs 3. Empiric antibiotic course and wound care 4. HD per renal 5. DVT and GI prophylaxis
[2018-04-19] MEDS ORDERED: SODIUM CHLORIDE 250 ML IV PRN (10:00)
[2018-04-19] MEDS ORDERED: DEXTROSE 50%-WATER 25 GM/50 ML DISP.SYRIN IVPUSH ONE (10:00)
[2018-04-19] MEDS ORDERED: EPOETIN ALFA 10,000 UNIT, EPOETIN ALFA 2,000 UNIT IVPUSH ONE (10:00)
[2018-04-19] MEDS ORDERED: DEXTROSE 50%-WATER 25 GM/50 ML DISP.SYRIN ONE (10:12)
--- NOTE | 2018-04-19 11:25 | PN ---
Progress Note (short form) - Note Progress Note: pt seen/ examined periods of hypoglycemia pt also not eating awake. chronic ill appearance Vital Signs Temp 98.1 F 04/19/18 05:50 Pulse 67 04/19/18 05:50 Resp 20 04/19/18 05:50 BP 146/56 04/19/18 05:50 Pulse Ox 96 04/18/18 21:56 Intake & Output 04/18/18 04/18/18 04/19/18 11:59 23:59 11:59 Intake Total 50 600 50 Balance 50 600 50 Weight 151 lb 8 oz 154 lb 6 oz Intake: IVPB 50 100 50 Oral 500 Other: Voiding Method Incontinent Incontinent Incontinent Bowel Movement Yes: 1 Yes # Bowel Movements 1 1 Weight Measurement Method Patient Lift Scale Patient Lift Scale Active Medications Acetaminophen (Tylenol -) 650 mg PO Q6H PRN PRN Reason: PAIN LEVEL 1-5 Last Admin: 04/18/18 12:19 Dose: 650 mg Artificial Tears (Artificial Tears) 1 drop OU Q12H PRN PRN Reason: DRY EYES Aspirin (Ecotrin -) 81 mg PO DAILY [facility] Last Admin: 04/18/18 11:12 Dose: 81 mg Atorvastatin Calcium (Lipitor -) 40 mg PO HS [facility] Last Admin: 04/18/18 21:45 Dose: 40 mg Calcium Acetate (Phoslo -) 667 mg PO TIDCM [facility] Last Admin: 04/18/18 17:24 Dose: 667 mg Carvedilol (Coreg -) 12.5 mg PO BID [facility] Last Admin: 04/18/18 21:43 Dose: 12.5 mg Citalopram Hydrobromide (Celexa -) 20 mg PO DAILY [facility] Last Admin: 04/18/18 11:13 Dose: 20 mg Clopidogrel Bisulfate (Plavix -) 75 mg PO DAILY [facility] Last Admin: 04/18/18 11:12 Dose: 75 mg Collagenase (Santyl -) 1 applic TP DAILY [facility]; Protocol Last Admin: 04/18/18 11:12 Dose: 1 applic Dextrose (D50w (Syringe) -) 25 gm IVPUSH Q4H PRN PRN Reason: HYPOGLYCEMIA Last Admin: 04/19/18 10:15 Dose: 25 gm Divalproex Sodium (Depakote -) 125 mg PO BID [facility] Last Admin: 09/13/18 21:50 Dose: 125 mg Docusate Sodium (Colace -) 300 mg PO [facility] Last Admin: 04/18/18 21:44 Dose: 300 mg Folic Acid (Folic Acid -) 1 mg PO DAILY [facility] Last Admin: 04/18/18 11:13 Dose: 1 mg Gabapentin (Neurontin -) 100 mg PO TID [facility] Last Admin: 04/19/18 05:37 Dose: 100 mg Haloperidol (Haldol -) 2 mg PO HS [facility] Last Admin: 04/18/18 21:44 Dose: 2 mg Sodium Chloride (Normal Saline -) 250 mls @ 3,000 mls/hr IV PRN PRN PRN Reason: Hypotension during Dialysis Dextrose/Sodium Chloride (D5-1/2ns -) 1,000 mls @ 40 mls/hr IV ASDIR [facility] Last Admin: 04/18/18 21:42 Dose: Not Given Piperacillin Sod/Tazobactam (Sod 2.25 gm/ Dextrose) 50 mls @ 100 mls/hr IVPB Q8H-IV [facility]; Protocol Last Admin: 04/19/18 01:59 Dose: 100 mls/hr Insulin Aspart (Novolog Vial Sliding Scale -) 1 vial SQ ACHS [facility]; Protocol Last Admin: 04/19/18 06:18 Dose: Not Given Mirtazapine (Remeron -) 7.5 mg PO [facility] Last Admin: 04/18/18 21:43 Dose: 7.5 mg Multi-Ingredient Ointment (Zinc Oxide 20% Topical Oint) 1 gm TP DAILY [facility] Last Admin: 04/18/18 12:20 Dose: 1 applic Multivitamins (Total B With C -) 1 each PO DAILY [facility] Last Admin: 04/18/18 11:12 Dose: 1 each Ranitidine HCl (Zantac -) 150 mg PO DAILY [facility] Last Admin: 04/18/18 11:14 Dose: 150 mg Tamsulosin HCl (Flomax -) 0.4 mg PO [facility] Last Admin: 04/18/18 21:45 Dose: 0.4 mg CBC, BMP 04/17/18 15:15 04/15/18 06:30 Physical Exam- Constitutional: Yes: No Distress, Comfortable. Neck: Yes: Supple. no jvd Cardiovascular: Yes: Regular Rate and Rhythm Respiratory: Yes: Diminished Gastrointestinal: Yes: Soft/ non tender Edema: No Wound/Incision: Yes: Bilateral heel ulcers -legs are warm , feet feel cool Neurological: Yes: Alert Psychiatric: Yes: awake. calm. Assessment/Plan clinically stable but condition gaurded Continue present care abx-- Zosyn podiatry to follow- requested monitor bgm-- d/c levemir dialysis per renal will follow Problem List - Problems (1) Diabetes Code(s): E11.9 - TYPE 2 DIABETES MELLITUS WITHOUT COMPLICATIONS Qualifiers: 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 type: type 1 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 complication status: with circulatory complication (2) ESRD (end stage renal disease) on dialysis Code(s): N18.6 - END STAGE RENAL DISEASE; Z99.2 - DEPENDENCE ON RENAL DIALYSIS (3) Infected pressure ulcer Code(s): L89.90 - PRESSURE ULCER OF UNSPECIFIED SITE, UNSPECIFIED STAGE; L08.9 - LOCAL INFECTION OF THE SKIN AND SUBCUTANEOUS TISSUE, UNSP (4) Syncope Code(s): R55 - SYNCOPE AND COLLAPSE (5) Acute metabolic encephalopathy due to hypoglycemia Code(s): G93.41 - METABOLIC ENCEPHALOPATHY; E16.2 - HYPOGLYCEMIA, UNSPECIFIED (6) Anemia Code(s): D64.9 - ANEMIA, UNSPECIFIED (7) CAD (coronary artery disease) Code(s): I25.10 - ATHSCL HEART DISEASE OF [place] CORONARY ARTERY W/O ANG PCTRS (8) ESRD (end stage renal disease) on dialysis Code(s): N18.6 - END STAGE RENAL DISEASE; Z99.2 - DEPENDENCE ON RENAL DIALYSIS
[2018-04-19] MEDS: FOLIC ACID 1 MG TABLET (FP) PO SCH (11:35)
[2018-04-19] MEDS: CARVEDILOL 12.5 MG TABLET (FP) PO SCH ×2 (11:35→22:55)
[2018-04-19] MEDS: CITALOPRAM HYDROBROMIDE 20 MG TABLET (FP) PO SCH (11:35)
[2018-04-19] MEDS: ASPIRIN COATED 81 MG TABLET.EC PO SCH (11:35)
[2018-04-19] MEDS: CALCIUM ACETATE 667 MG CAPSULE (FP) PO SCH ×3 (11:35→16:44)
[2018-04-19] MEDS: RANITIDINE HCL 150 MG TABLET (FP) PO SCH (11:35)
[2018-04-19] MEDS: VITAMIN B COMPLEX W/C COMBO TABLET (FP) PO SCH (11:36)
[2018-04-19] MEDS: CLOPIDOGREL BISULFATE 75 MG TABLET (FP) PO SCH (11:36)
[2018-04-19] MEDS: COLLAGENASE CLOSTRIDIUM HIST. 30 GRAMS TUBE TP SCH (11:39)
[2018-04-19] MEDS: DIVALPROEX SODIUM 125 MG TABLET E.C. PO SCH ×2 (11:41→23:21)
[2018-04-19] MEDS: ZINC OXIDE 20% TOPICAL OINTMENT 454 GM JAR TP SCH (11:57)
--- NOTE | 2018-04-19 12:53 | PN ---
Progress Note, Physician History of Present Illness: Pt seen and examined at bedside. He appears comfortable. He denies shortness of breath. - Current Medication List Current Medications: Active Medications Acetaminophen (Tylenol -) 650 mg PO Q6H PRN PRN Reason: PAIN LEVEL 1-5 Last Admin: 04/18/18 12:19 Dose: 650 mg Artificial Tears (Artificial Tears) 1 drop OU Q12H PRN PRN Reason: DRY EYES Aspirin (Ecotrin -) 81 mg PO DAILY [facility] Last Admin: 04/19/18 11:35 Dose: 81 mg Atorvastatin Calcium (Lipitor -) 40 mg PO HS [facility] Last Admin: 04/18/18 21:45 Dose: 40 mg Calcium Acetate (Phoslo -) 667 mg PO TIDCM [facility] Last Admin: 04/19/18 12:12 Dose: 667 mg Carvedilol (Coreg -) 12.5 mg PO BID [facility] Last Admin: 04/19/18 11:35 Dose: 12.5 mg Citalopram Hydrobromide (Celexa -) 20 mg PO DAILY [facility] Last Admin: 04/19/18 11:35 Dose: 20 mg Clopidogrel Bisulfate (Plavix -) 75 mg PO DAILY [facility] Last Admin: 04/19/18 11:36 Dose: 75 mg Collagenase (Santyl -) 1 applic TP DAILY [facility]; Protocol Last Admin: 04/19/18 11:39 Dose: 1 applic Dextrose (D50w (Syringe) -) 25 gm IVPUSH Q4H PRN PRN Reason: HYPOGLYCEMIA Last Admin: 04/19/18 10:15 Dose: 25 gm Divalproex Sodium (Depakote -) 125 mg PO BID [facility] Last Admin: 04/19/18 11:41 Dose: 125 mg Docusate Sodium (Colace -) 300 mg PO HS [facility] Last Admin: 04/18/18 21:44 Dose: 300 mg Folic Acid (Folic Acid -) 1 mg PO DAILY [facility] Last Admin: 04/19/18 11:35 Dose: 1 mg Gabapentin (Neurontin -) 100 mg PO TID [facility] Last Admin: 04/19/18 05:37 Dose: 100 mg Haloperidol (Haldol -) 2 mg PO HS [facility] Last Admin: 04/18/18 21:44 Dose: 2 mg Sodium Chloride (Normal Saline -) 250 mls @ 3,000 mls/hr IV PRN PRN PRN Reason: Hypotension during Dialysis Dextrose/Sodium Chloride (D5-1/2ns -) 1,000 mls @ 40 mls/hr IV ASDIR [facility] Last Admin: 04/18/18 21:42 Dose: Not Given Piperacillin Sod/Tazobactam (Sod 2.25 gm/ Dextrose) 50 mls @ 100 mls/hr IVPB Q8H-IV [facility]; Protocol Last Admin: 04/19/18 11:34 Dose: 100 mls/hr Insulin Aspart (Novolog Vial Sliding Scale -) 1 vial SQ ACHS [facility]; Protocol Last Admin: 04/19/18 11:59 Dose: Not Given Mirtazapine (Remeron -) 7.5 mg PO HS [facility] Last Admin: 04/18/18 21:43 Dose: 7.5 mg Multi-Ingredient Ointment (Zinc Oxide 20% Topical Oint) 1 gm TP DAILY [facility] Last Admin: 04/19/18 11:57 Dose: 1 applic Multivitamins (Total B With C -) 1 each PO DAILY [facility] Last Admin: 04/19/18 11:36 Dose: 1 each Ranitidine HCl (Zantac -) 150 mg PO DAILY [facility] Last Admin: 04/19/18 11:35 Dose: 150 mg Tamsulosin HCl (Flomax -) 0.4 mg PO HS [facility] Last Admin: 04/18/18 21:45 Dose: 0.4 mg - Objective Vital Signs: Vital Signs Temperature 98.1 F 04/19/18 05:50 Pulse Rate 67 04/19/18 05:50 Respiratory Rate 20 04/19/18 09:00 Blood Pressure 146/56 04/19/18 05:50 O2 Sat by Pulse Oximetry (%) 97 04/19/18 09:00 Constitutional: Yes: Calm Eyes: Yes: Conjunctiva Clear HENT: Yes: Atraumatic Neck: Yes: Supple Cardiovascular: Yes: S1, S2 Respiratory: Yes: CTA Bilaterally Gastrointestinal: Yes: Soft Genitourinary: Yes: Incontinence Musculoskeletal: Yes: WNL Edema: No Neurological: Yes: Other (drowsy) Labs: CBC, BMP 04/17/18 15:15 04/15/18 06:30 INR, PTT INR 1.20 (0.83-1.09) H 03/28/18 22:22 Problem List - Problems (1) Diabetes Code(s): E11.9 - TYPE 2 DIABETES MELLITUS WITHOUT COMPLICATIONS Qualifiers: 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 type: type 1 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 complication status: with circulatory complication (2) ESRD (end stage renal disease) on dialysis Code(s): N18.6 - END STAGE RENAL DISEASE; Z99.2 - DEPENDENCE ON RENAL DIALYSIS (3) Syncope Code(s): R55 - SYNCOPE AND COLLAPSE (4) Anemia Code(s): D64.9 - ANEMIA, UNSPECIFIED Assessment/Plan Current Medications Generic Name Dose Route Start Last Admin Trade Name Freq PRN Reason Stop Dose Admin Acetaminophen 650 mg 04/15/18 19:05 04/18/18 12:19 Tylenol - PO 650 mg Q6H PRN Administration PAIN LEVEL 1-5 Artificial Tears 1 drop 04/15/18 19:05 Artificial Tears OU Q12H PRN DRY EYES Aspirin 81 mg 04/16/18 10:00 04/19/18 11:35 Ecotrin - PO 81 mg DAILY [facility] Administration Atorvastatin Calcium 40 mg 04/15/18 22:00 04/18/18 21:45 Lipitor - PO 40 mg HS [facility] Administration Calcium Acetate 667 mg 04/16/18 08:00 04/19/18 12:12 Phoslo - PO 667 mg TIDCM [facility] Administration Carvedilol 12.5 mg 04/15/18 22:00 04/19/18 11:35 Coreg - PO 12.5 mg BID [facility] Administration Citalopram Hydrobromide 20 mg 04/16/18 10:00 04/19/18 11:35 Celexa - PO 20 mg DAILY [facility] Administration Clopidogrel Bisulfate 75 mg 04/16/18 10:00 04/19/18 11:36 Plavix - PO 75 mg DAILY [facility] Administration Collagenase 1 applic 04/16/18 10:00 04/19/18 11:39 Santyl - TP 1 applic DAILY [facility] Administration Protocol Dextrose 25 gm 04/19/18 14:00 04/19/18 10:15 D50w (Syringe) - IVPUSH 25 gm Q4H PRN Administration HYPOGLYCEMIA Divalproex Sodium 125 mg 04/15/18 22:00 04/19/18 11:41 Depakote - PO 125 mg BID [facility] Administration Docusate Sodium 300 mg 04/15/18 22:00 04/18/18 21:44 Colace - PO 300 mg HS [facility] Administration Folic Acid 1 mg 04/16/18 10:00 04/19/18 11:35 Folic Acid - PO 1 mg DAILY [facility] Administration Gabapentin 100 mg 04/15/18 22:00 04/19/18 05:37 Neurontin - PO 100 mg TID [facility] Administration Haloperidol 2 mg 04/15/18 22:00 04/18/18 21:44 Haldol - PO 2 mg HS [facility] Administration Sodium Chloride 250 mls @ 3,000 mls/hr 04/15/18 20:14 Normal Saline - IV PRN PRN Hypotension during Dialysis Dextrose/Sodium Chloride 1,000 mls @ 40 mls/hr 04/15/18 19:05 04/18/18 21:42 D5-1/2ns - IV Not Given ASDIR [facility] Piperacillin Sod/Tazobactam 50 mls @ 100 mls/hr 04/16/18 02:00 04/19/18 11:34 Sod 2.25 gm/ Dextrose IVPB 100 mls/hr Q8H-IV [facility] Administration Protocol Insulin Aspart 1 vial 04/15/18 22:00 04/19/18 11:59 Novolog Vial Sliding Scale - SQ Not Given ACHS [facility] Protocol Mirtazapine 7.5 mg 04/15/18 22:00 04/18/18 21:43 Remeron - PO 7.5 mg HS [facility] Administration Multi-Ingredient Ointment 1 gm 04/16/18 10:00 04/19/18 11:57 Zinc Oxide 20% Topical Oint TP 1 applic DAILY [facility] Administration Multivitamins 1 each 04/16/18 10:00 04/19/18 11:36 Total B With C - PO 1 each DAILY [facility] Administration Ranitidine HCl 150 mg 04/16/18 10:00 04/19/18 11:35 Zantac - PO 150 mg DAILY [facility] Administration Tamsulosin HCl 0.4 mg 04/15/18 22:00 04/18/18 21:45 Flomax - PO 0.4 mg HS [facility] Administration Impression 1. ESRD 2. anemia 3. HTN 4. Chol 5. DM 6. BPH 7. CAD 8. hypoglycemia 9. CHF 10. syncope 11. depression 12. PVD Plan - HD today - psych eval to adjust meds as pt is drowsy - monitor blood sugar - cont wound care - cont epo - renal diet Dr Donovan
[2018-04-19] MEDS ORDERED: DEXTROSE 50%-WATER 25 GM/50 ML DISP.SYRIN IVPUSH PRN (14:00)
[2018-04-19] MEDS ORDERED: EPOETIN ALFA 2,000 UNIT/1 ML VIAL IVPUSH ONE (14:21)
--- NOTE | 2018-04-19 14:39 | PN ---
Progress Note (short form) - Note Progress Note: Pt without complaints today. Vital Signs Period Temp Pulse Resp BP Sys/Rodriguez Pulse Ox Last 24 Hr 97.9 F-98.4 F 65-68 20-20 140-146/53-59 96-97 GEN: alert, NAD Right foot: palpable distal pulse(PT) bypass. Large eschar 6x10cm soft without surrounding erythema to the plantar heel surface extending laterally. Reapplied santly, gauze, abd pad and kerlix. Heel protectors in place. Left foot: warm, left heel with 3x6cm soft eschar, mild surrounding erythema. CBC, BMP 04/17/18 15:15 04/15/18 06:30 A/p: 72 yo male s/p Revascularization lefty tibial with atherectomy and angioplasty for left heel gangrene with a h/o of recent angioplasty to right leg at [facility] Recommend to continue local wound care with santyl, dry dressing. Continue to protect heels with hell protectors and elevated on pillows IV abx as per ID Surgery to monitor the patient for improvement in heels versus need for debridment D/w Dr Schofield
[2018-04-19 17:04] LABS: HEMATOCRIT 30.1 % (35.4-49); HEMOGLOBIN 10.1 GM/dL (11.7-16.9); MCH 32.4 pg (25.7-33.7); MCHC 33.4 g/dl (32.0-35.9); MEAN PLT VOLUME 6.5 fl (7.5-11.1); PLATELET COUNT 382 K/MM3 (134-434); WHITE BLOOD COUNT 15.2 K/mm3 (4.0-10.0)
[2018-04-19 17:30] LABS: ANION GAP 17 MMOL/L (8-16); BLOOD UREA NITROGEN 65 mg/dL (7-18); CALCIUM 8.5 mg/dL (8.5-10.1); CHLORIDE 101 mmol/L (98-107); CO2 25 mmol/L (21-32); POTASSIUM 4.6 mmol/L (3.5-5.1); SODIUM 143 mmol/L (136-145)
[2018-04-19 17:37] LABS: GLUCOSE,RANDOM 315 mg/dL (74-106)
--- NOTE | 2018-04-19 17:43 | PN ---
Progress Note (short form) - Note Progress Note: Patient not seen. In dialysis. Reviewed vascular findings. Continue local wound care and await for signs of healing of gangrenous heel ulcerations. Check with ID for antibiotics. Will follow next week. Problem List - Problems (1) Diabetes Code(s): E11.9 - TYPE 2 DIABETES MELLITUS WITHOUT COMPLICATIONS Qualifiers: 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 type: type 1 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 complication status: with circulatory complication (2) ESRD (end stage renal disease) on dialysis Code(s): N18.6 - END STAGE RENAL DISEASE; Z99.2 - DEPENDENCE ON RENAL DIALYSIS (3) Eschar of heel Code(s): R23.4 - CHANGES IN SKIN TEXTURE (4) Fever Code(s): R50.9 - FEVER, UNSPECIFIED (5) Infected pressure ulcer Code(s): L89.90 - PRESSURE ULCER OF UNSPECIFIED SITE, UNSPECIFIED STAGE; L08.9 - LOCAL INFECTION OF THE SKIN AND SUBCUTANEOUS TISSUE, UNSP
[2018-04-19] MEDS ORDERED: VANCOMYCIN 1,000 MG in DEXTROSE 5%-WATER - 250 ML IVPB ONE (20:39)
--- NOTE | 2018-04-19 20:44 | HOSP ---
Subjective - Review of Symptoms Events since last encounter: Requested by RN to see and evaluate patient for altered mental status. She reports patient is usually feisty, talkative and over the past 24 hours she has noticed patient "staring off in space" and not at all himself. No changes in medication over that period of time. Met and children at bedside. Marked change in patient since they last saw him at baseline 48 hours ago. Physical Exam Vital Signs Temperature 99.2 F 04/19/18 16:05 Pulse Rate 64 04/19/18 20:05 Respiratory Rate 20 04/19/18 20:30 Blood Pressure 123/50 04/19/18 20:30 O2 Sat by Pulse Oximetry (%) 97 04/19/18 09:00 General/Neuro: Patient awake, staring, not making eye contact, not answering questions, yelling out random words; not following commands Lungs: CTA CV: S1, S2, rrr Abd: soft, not tender, not distended Ext: 2+pulses, warm, well-perfused Current Medications Generic Name Dose Route Start Last Admin Trade Name Freq PRN Reason Stop Dose Admin Acetaminophen 650 mg 04/15/18 19:05 04/18/18 12:19 Tylenol - PO 650 mg Q6H PRN Administration PAIN LEVEL 1-5 Artificial Tears 1 drop 04/15/18 19:05 Artificial Tears OU Q12H PRN DRY EYES Aspirin 81 mg 04/16/18 10:00 04/19/18 11:35 Ecotrin - PO 81 mg DAILY [facility] Administration Atorvastatin Calcium 40 mg 04/15/18 22:00 04/18/18 21:45 Lipitor - PO 40 mg HS [facility] Administration Calcium Acetate 667 mg 04/16/18 08:00 04/19/18 16:44 Phoslo - PO Not Given TIDCM [facility] Carvedilol 12.5 mg 04/15/18 22:00 04/19/18 11:35 Coreg - PO 12.5 mg BID [facility] Administration Citalopram Hydrobromide 20 mg 04/16/18 10:00 04/19/18 11:35 Celexa - PO 20 mg DAILY [facility] Administration Clopidogrel Bisulfate 75 mg 04/16/18 10:00 04/19/18 11:36 Plavix - PO 75 mg DAILY [facility] Administration Collagenase 1 applic 04/16/18 10:00 04/19/18 11:39 Santyl - TP 1 applic DAILY [facility] Administration Protocol Dextrose 25 gm 04/19/18 14:00 04/19/18 10:15 D50w (Syringe) - IVPUSH 25 gm Q4H PRN Administration HYPOGLYCEMIA Divalproex Sodium 125 mg 04/15/18 22:00 04/19/18 11:41 Depakote - PO 125 mg BID [facility] Administration Docusate Sodium 300 mg 04/15/18 22:00 04/18/18 21:44 Colace - PO 300 mg HS [facility] Administration Folic Acid 1 mg 04/16/18 10:00 04/19/18 11:35 Folic Acid - PO 1 mg DAILY [facility] Administration Gabapentin 100 mg 04/15/18 22:00 04/19/18 13:41 Neurontin - PO 100 mg TID [facility] Administration Haloperidol 2 mg 04/15/18 22:00 04/18/18 21:44 Haldol - PO 2 mg HS [facility] Administration Sodium Chloride 250 mls @ 3,000 mls/hr 04/15/18 20:14 Normal Saline - IV PRN PRN Hypotension during Dialysis Dextrose/Sodium Chloride 1,000 mls @ 40 mls/hr 04/15/18 19:05 04/18/18 21:42 D5-1/2ns - IV Not Given ASDIR [facility] Piperacillin Sod/Tazobactam 50 mls @ 100 mls/hr 04/16/18 02:00 04/19/18 11:34 Sod 2.25 gm/ Dextrose IVPB 100 mls/hr Q8H-IV [facility] Administration Protocol Vancomycin HCl 1,000 mg/ 250 mls @ 166.667 mls/hr 04/19/18 20:39 Dextrose IVPB 04/19/18 22:08 ONCE ONE Protocol Insulin Aspart 1 vial 04/15/18 22:00 04/19/18 16:44 Novolog Vial Sliding Scale - SQ Not Given ACHS [facility] Protocol Mirtazapine 7.5 mg 04/15/18 22:00 04/18/18 21:43 Remeron - PO 7.5 mg HS [facility] Administration Multi-Ingredient Ointment 1 gm 04/16/18 10:00 04/19/18 11:57 Zinc Oxide 20% Topical Oint TP 1 applic DAILY [facility] Administration Multivitamins 1 each 04/16/18 10:00 04/19/18 11:36 Total B With C - PO 1 each DAILY [facility] Administration Ranitidine HCl 150 mg 04/16/18 10:00 04/19/18 11:35 Zantac - PO 150 mg DAILY [facility] Administration Tamsulosin HCl 0.4 mg 04/15/18 22:00 04/18/18 21:45 Flomax - PO 0.4 mg HS [facility] Administration Assessment & Plan Altered mental status of uncertain etiology --CT head stat --leukocytosis while on Zosyn --blood cultures --Vanc x 1 --re-consult ID --hold haldol, remeron, gabapentin tongight --psych consult to assess medication regimen Physical Examination Vital Signs: Vital Signs Temperature 99.2 F 04/19/18 16:05 Pulse Rate 64 04/19/18 20:05 Respiratory Rate 20 04/19/18 20:30 Blood Pressure 123/50 04/19/18 20:30 O2 Sat by Pulse Oximetry (%) 97 04/19/18 09:00 Labs: CBC, BMP 04/19/18 16:30 04/19/18 16:30
[2018-04-19] MEDS: HALOPERIDOL 1 MG TABLET (FP) PO SCH (21:04)
[2018-04-19] MEDS: MIRTAZAPINE 15 MG TABLET (FP) PO SCH (21:04)
[2018-04-19] MEDS: DEXTROSE 5%-0.45% SALINE 1,000 ML IV SCH (22:46)
[2018-04-19] MEDS: ATORVASTATIN CA 40 MG TABLET (FP) PO SCH (22:54)
[2018-04-19] MEDS: TAMSULOSIN HCL 0.4 MG CAP.ER.24H (FP) PO SCH (22:54)
[2018-04-19] MEDS: DOCUSATE SODIUM 100 MG CAPSULE (FP) PO SCH (22:54)
[2018-04-20] MEDS ORDERED: VANCOMYCIN 1,000 MG in DEXTROSE 5%-WATER - 250 ML IVPB ONE (01:15)
[2018-04-20] MEDS ORDERED: PIPERACILLIN/TAZOBACTAM 2.25 GM VIAL IVPB ONE ×4 (03:35→18:24)
[2018-04-20] MEDS ORDERED: DEXTROSE 5%-WATER - 50 ML IVPB ONE ×3 (03:35→18:24)
[2018-04-20] MEDS: PIPERACILLIN/TAZOB 2.25 GM 2.25 GM in DEXTROSE 5%-WATER - 50 ML IVPB SCH ×3 (03:47→18:06)
[2018-04-20] MEDS: GABAPENTIN 100 MG CAPSULE (FP) PO SCH ×3 (05:37→22:20)
[2018-04-20] MEDS: INSULIN SLIDING SCALE (NOVOLOG) 1 VIAL SQ SCH ×4 (06:17→22:20)
[2018-04-20] MEDS: CALCIUM ACETATE 667 MG CAPSULE (FP) PO SCH ×3 (08:00→18:06)
--- NOTE | 2018-04-20 10:50 | PN ---
Progress Note (short form) - Note Progress Note: Chief Complaint: Events noted, notes reviewed, denies any chest pain or dyspnea History of Present Illness: Seen and examined. Events noted, notes reviewed, denies any chest pain or dyspnea Echocardiography dated 12/19/2017 revealed normal LV size with mild-moderate decrease LV function, mild STEPHEN, mild MR, TR, can't exclude MV vegetation Medications: Current Medications Acetaminophen (Tylenol -) 650 mg PO Q6H PRN PRN Reason: PAIN LEVEL 1-5 Last Admin: 04/18/18 12:19 Dose: 650 mg Artificial Tears (Artificial Tears) 1 drop OU Q12H PRN PRN Reason: DRY EYES Aspirin (Ecotrin -) 81 mg PO DAILY [facility] OF [facility] Last Admin: 04/19/18 11:35 Dose: 81 mg Atorvastatin Calcium (Lipitor -) 40 mg PO HS ON [facility] OF [facility] Last Admin: 04/19/18 22:54 Dose: 40 mg Calcium Acetate (Phoslo -) 667 mg PO TIDCM ON [facility] OF [facility] Last Admin: 04/19/18 16:44 Dose: Not Given Carvedilol (Coreg -) 12.5 mg PO BID ON [facility] Last Admin: 04/19/18 22:55 Dose: 12.5 mg Citalopram Hydrobromide (Celexa -) 20 mg PO DAILY [facility] Last Admin: 04/19/18 11:35 Dose: 20 mg Clopidogrel Bisulfate (Plavix -) 75 mg PO DAILY [facility] Last Admin: 04/19/18 11:36 Dose: 75 mg Collagenase (Santyl -) 1 applic TP DAILY [facility]; Protocol Last Admin: 04/19/18 11:39 Dose: 1 applic Dextrose (D50w (Syringe) -) 25 gm IVPUSH Q4H PRN PRN Reason: HYPOGLYCEMIA Last Admin: 04/19/18 10:15 Dose: 25 gm Divalproex Sodium (Depakote -) 125 mg PO BID [facility] Last Admin: 04/19/18 23:21 Dose: Not Given Docusate Sodium (Colace -) 300 mg PO HS [facility] Last Admin: 04/19/18 22:54 Dose: 300 mg Folic Acid (Folic Acid -) 1 mg PO DAILY [facility] Last Admin: 04/19/18 11:35 Dose: 1 mg Gabapentin (Neurontin -) 100 mg PO TID [facility] Last Admin: 04/20/18 05:37 Dose: Not Given Haloperidol (Haldol -) 2 mg PO HS [facility] Last Admin: 04/19/18 21:04 Dose: Not Given Sodium Chloride (Normal Saline -) 250 mls @ 3,000 mls/hr IV PRN PRN PRN Reason: Hypotension during Dialysis Dextrose/Sodium Chloride (D5-1/2ns -) 1,000 mls @ 40 mls/hr IV ASDIR ON [facility] OF [facility] Last Admin: 04/19/18 22:46 Dose: Not Given Piperacillin Sod/Tazobactam (Sod 2.25 gm/ Dextrose) 50 mls @ 100 mls/hr IVPB Q8H-IV ON [facility] OF [facility]; Protocol Last Admin: 04/20/18 03:47 Dose: 100 mls/hr Insulin Aspart (Novolog Vial Sliding Scale -) 1 vial SQ ACHS ON [facility]; Protocol Last Admin: 04/20/18 06:17 Dose: 8 unit Mirtazapine (Remeron -) 7.5 mg PO [facility] Last Admin: 04/19/18 21:04 Dose: Not Given Multi-Ingredient Ointment (Zinc Oxide 20% Topical Oint) 1 gm TP DAILY [facility] Last Admin: 04/19/18 11:57 Dose: 1 applic Multivitamins (Total B With C -) 1 each PO DAILY [facility] Last Admin: 04/19/18 11:36 Dose: 1 each Ranitidine HCl (Zantac -) 150 mg PO DAILY [facility] Last Admin: 04/19/18 11:35 Dose: 150 mg Tamsulosin HCl (Flomax -) 0.4 mg PO [facility] Last Admin: 04/19/18 22:54 Dose: 0.4 mg Vital Signs: Last Vital Signs Temp Pulse Resp BP Pulse Ox 99.6 F 69 18 131/53 97 04/20/18 05:56 04/20/18 05:56 04/20/18 05:56 04/20/18 05:56 04/19/18 20:40 Intake & Output 04/17/18 04/18/18 04/19/18 04/20/18 23:59 23:59 23:59 23:59 Intake Total 650 650 600 350 Balance 650 650 600 350 Weight 152 lb 12.8 oz 151 lb 8 oz 154 lb 6 oz 151 lb Constitutional: No Distress, Calm Neck: Supple Negative JVD No Bruit Respiratory: Diminished Breath Sounds at the Bases Bilaterally Cardiovascular: S1 S2 Regular Rate and Rhythm Grade 1-2/6 SM Gastrointestinal: Soft Benign Normal Bowel Sounds Ext: No Edema Labs: CBC, BMP 04/19/18 16:30 04/19/18 16:30 Assessment/Plan ASSESSMENT: 1. PAD post lower extremity bypass, heel wound (non healing) post angioplasty right posterior tibial artery, plan for possible BKA 2. CAD post CABG, angina pectoris with history of demand ischemic injury 3. Systolic/diastolic LV dysfunction with class 0 NYHA classification LV failure , compensated/euvolemic 4. Moderate MR 5. TR with pulmonary HTN 6. Hypertension/HCVD 7. 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 8. Hypercholesterolemia 9. ESRD on HD 10. Anemia of chronic disease PLAN: 1. Continue Carvedilol 2. Continue ASA and Plavix 3. Continue Lipitor 4. Antibiotic as per the primary team 5. HD per renal team Umu Grace MD
--- NOTE | 2018-04-20 11:12 | PN ---
Progress Note (short form) - Note Progress Note: VSS Heel wounds necrotic. Will plan OR debridement Sunday. Problem List - Problems (1) PAD (peripheral artery disease) Code(s): I73.9 - PERIPHERAL VASCULAR DISEASE, UNSPECIFIED
--- NOTE | 2018-04-20 11:25 | PN ---
Progress Note (short form) - Note Progress Note: Vital Signs Temp 99.6 F 04/20/18 05:56 Pulse 69 04/20/18 05:56 Resp 18 04/20/18 05:56 BP 131/53 04/20/18 05:56 Pulse Ox 97 04/19/18 20:40 Intake & Output 04/19/18 04/19/18 04/20/18 11:59 23:59 11:59 Intake Total 50 550 350 Balance 50 550 350 Weight 154 lb 6 oz 151 lb Intake: IV 50 saline lock 50 IVPB 50 350 Oral 500 Other: Voiding Method Incontinent Incontinent Incontinent Bowel Movement Yes # Bowel Movements 1 Body Mass Index (BMI) 26.4 Weight Measurement Method Patient Lift Scale Patient Lift Scale Active Medications Acetaminophen (Tylenol -) 650 mg PO Q6H PRN PRN Reason: PAIN LEVEL 1-5 Last Admin: 04/18/18 12:19 Dose: 650 mg Artificial Tears (Artificial Tears) 1 drop OU Q12H PRN PRN Reason: DRY EYES Aspirin (Ecotrin -) 81 mg PO DAILY [facility] Last Admin: 04/19/18 11:35 Dose: 81 mg Atorvastatin Calcium (Lipitor -) 40 mg PO HS [facility] Last Admin: 04/19/18 22:54 Dose: 40 mg Calcium Acetate (Phoslo -) 667 mg PO TIDCM [facility] Last Admin: 04/19/18 16:44 Dose: Not Given Carvedilol (Coreg -) 12.5 mg PO BID [facility] Last Admin: 04/19/18 22:55 Dose: 12.5 mg Citalopram Hydrobromide (Celexa -) 20 mg PO DAILY [facility] Last Admin: 04/19/18 11:35 Dose: 20 mg Clopidogrel Bisulfate (Plavix -) 75 mg PO DAILY [facility] Last Admin: 04/19/18 11:36 Dose: 75 mg Collagenase (Santyl -) 1 applic TP DAILY [facility]; Protocol Last Admin: 04/19/18 11:39 Dose: 1 applic Dextrose (D50w (Syringe) -) 25 gm IVPUSH Q4H PRN PRN Reason: HYPOGLYCEMIA Last Admin: 04/19/18 10:15 Dose: 25 gm Divalproex Sodium (Depakote -) 125 mg PO BID [facility] Last Admin: 04/19/18 23:21 Dose: Not Given Docusate Sodium (Colace -) 300 mg PO HS [facility] Last Admin: 04/19/18 22:54 Dose: 300 mg Folic Acid (Folic Acid -) 1 mg PO DAILY [facility] Last Admin: 04/19/18 11:35 Dose: 1 mg Gabapentin (Neurontin -) 100 mg PO TID [facility] Last Admin: 04/20/18 05:37 Dose: Not Given Haloperidol (Haldol -) 2 mg PO HS [facility] Last Admin: 04/19/18 21:04 Dose: Not Given Sodium Chloride (Normal Saline -) 250 mls @ 3,000 mls/hr IV PRN PRN PRN Reason: Hypotension during Dialysis Dextrose/Sodium Chloride (D5-1/2ns -) 1,000 mls @ 40 mls/hr IV ASDIR [facility] Last Admin: 04/19/18 22:46 Dose: Not Given Piperacillin Sod/Tazobactam (Sod 2.25 gm/ Dextrose) 50 mls @ 100 mls/hr IVPB Q8H-IV [facility]; Protocol Last Admin: 04/20/18 03:47 Dose: 100 mls/hr Insulin Aspart (Novolog Vial Sliding Scale -) 1 vial SQ [facility]; Protocol Last Admin: 04/20/18 06:17 Dose: 8 unit Insulin Detemir (Levemir Vial) 10 units SQ [facility] Mirtazapine (Remeron -) 7.5 mg PO [facility] Last Admin: 04/19/18 21:04 Dose: Not Given Multi-Ingredient Ointment (Zinc Oxide 20% Topical Oint) 1 gm TP DAILY [facility] Last Admin: 04/19/18 11:57 Dose: 1 applic Multivitamins (Total B With C -) 1 each PO DAILY [facility] Last Admin: 04/19/18 11:36 Dose: 1 each Ranitidine HCl (Zantac -) 150 mg PO DAILY [facility] Last Admin: 04/19/18 11:35 Dose: 150 mg Tamsulosin HCl (Flomax -) 0.4 mg PO [facility] Last Admin: 04/19/18 22:54 Dose: 0.4 mg CBC, BMP 04/19/18 16:30 04/19/18 16:30 Problem List - Problems (1) Diabetes Code(s): E11.9 - TYPE 2 DIABETES MELLITUS WITHOUT COMPLICATIONS Qualifiers: 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 type: type 1 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 complication status: with circulatory complication (2) ESRD (end stage renal disease) on dialysis Code(s): N18.6 - END STAGE RENAL DISEASE; Z99.2 - DEPENDENCE ON RENAL DIALYSIS (3) Infected pressure ulcer Code(s): L89.90 - PRESSURE ULCER OF UNSPECIFIED SITE, UNSPECIFIED STAGE; L08.9 - LOCAL INFECTION OF THE SKIN AND SUBCUTANEOUS TISSUE, UNSP (4) Syncope Code(s): R55 - SYNCOPE AND COLLAPSE (5) Acute metabolic encephalopathy due to hypoglycemia Code(s): G93.41 - METABOLIC ENCEPHALOPATHY; E16.2 - HYPOGLYCEMIA, UNSPECIFIED (6) Anemia Code(s): D64.9 - ANEMIA, UNSPECIFIED (7) CAD (coronary artery disease) Code(s): I25.10 - ATHSCL HEART DISEASE OF [place] CORONARY ARTERY W/O ANG PCTRS (8) ESRD (end stage renal disease) on dialysis Code(s): N18.6 - END STAGE RENAL DISEASE; Z99.2 - DEPENDENCE ON RENAL DIALYSIS
[2018-04-20] MEDS: FOLIC ACID 1 MG TABLET (FP) PO SCH (13:29)
[2018-04-20] MEDS: VITAMIN B COMPLEX W/C COMBO TABLET (FP) PO SCH (13:29)
[2018-04-20] MEDS: DIVALPROEX SODIUM 125 MG TABLET E.C. PO SCH ×2 (13:30→22:22)
[2018-04-20] MEDS: ASPIRIN COATED 81 MG TABLET.EC PO SCH ×2 (13:30→13:41)
[2018-04-20] MEDS: CARVEDILOL 12.5 MG TABLET (FP) PO SCH ×2 (13:30→22:20)
[2018-04-20] MEDS: CITALOPRAM HYDROBROMIDE 20 MG TABLET (FP) PO SCH (13:30)
[2018-04-20] MEDS: CLOPIDOGREL BISULFATE 75 MG TABLET (FP) PO SCH (13:30)
[2018-04-20] MEDS: COLLAGENASE CLOSTRIDIUM HIST. 30 GRAMS TUBE TP SCH (13:31)
[2018-04-20] MEDS: ZINC OXIDE 20% TOPICAL OINTMENT 454 GM JAR TP SCH (13:31)
[2018-04-20] MEDS: RANITIDINE HCL 150 MG TABLET (FP) PO SCH (13:31)
[2018-04-20] MEDS ORDERED: INSULIN (NOVOLOG) ASPART 100 UNITS/ML 10ML VIAL ONE (15:14)
--- NOTE | 2018-04-20 17:34 | PN ---
Progress Note, Physician History of Present Illness: Pt seen and examined at bedside. He is awake today and appears comfortable. - Current Medication List Current Medications: Active Medications Acetaminophen (Tylenol -) 650 mg PO Q6H PRN PRN Reason: PAIN LEVEL 1-5 Last Admin: 04/18/18 12:19 Dose: 650 mg Artificial Tears (Artificial Tears) 1 drop OU Q12H PRN PRN Reason: DRY EYES Aspirin (Ecotrin -) 81 mg PO DAILY [facility] Last Admin: 04/20/18 13:41 Dose: Not Given Atorvastatin Calcium (Lipitor -) 40 mg PO HS [facility] Last Admin: 04/19/18 22:54 Dose: 40 mg Calcium Acetate (Phoslo -) 667 mg PO TIDCM [facility] Last Admin: 04/20/18 13:29 Dose: 667 mg Carvedilol (Coreg -) 12.5 mg PO BID [facility] Last Admin: 04/20/18 13:30 Dose: 12.5 mg Citalopram Hydrobromide (Celexa -) 20 mg PO DAILY [facility] Last Admin: 04/20/18 13:30 Dose: 20 mg Clopidogrel Bisulfate (Plavix -) 75 mg PO DAILY [facility] Last Admin: 04/20/18 13:30 Dose: Not Given Collagenase (Santyl -) 1 applic TP DAILY [facility]; Protocol Last Admin: 04/20/18 13:31 Dose: 1 applic Dextrose (D50w (Syringe) -) 25 gm IVPUSH Q4H PRN PRN Reason: HYPOGLYCEMIA Last Admin: 04/19/18 10:15 Dose: 25 gm Divalproex Sodium (Depakote -) 125 mg PO BID [facility] Last Admin: 04/20/18 13:30 Dose: 125 mg Docusate Sodium (Colace -) 300 mg PO HS [facility] Last Admin: 04/19/18 22:54 Dose: 300 mg Folic Acid (Folic Acid -) 1 mg PO DAILY [facility] Last Admin: 04/20/18 13:29 Dose: 1 mg Gabapentin (Neurontin -) 100 mg PO TID [facility] Last Admin: 04/20/18 15:08 Dose: Not Given Haloperidol (Haldol -) 2 mg PO HS [facility] Last Admin: 04/19/18 21:04 Dose: Not Given Sodium Chloride (Normal Saline -) 250 mls @ 3,000 mls/hr IV PRN PRN PRN Reason: Hypotension during Dialysis Dextrose/Sodium Chloride (D5-1/2ns -) 1,000 mls @ 40 mls/hr IV ASDIR [facility] Last Admin: 04/19/18 22:46 Dose: Not Given Piperacillin Sod/Tazobactam (Sod 2.25 gm/ Dextrose) 50 mls @ 100 mls/hr IVPB Q8H-IV [facility]; Protocol Last Admin: 04/20/18 13:28 Dose: 100 mls/hr Insulin Aspart (Novolog Vial Sliding Scale -) 1 vial SQ ACHS [facility]; Protocol Last Admin: 04/20/18 13:35 Dose: 8 unit Insulin Detemir (Levemir Vial) 10 units SQ HS [facility] Mirtazapine (Remeron -) 7.5 mg PO HS [facility] Last Admin: 04/19/18 21:04 Dose: Not Given Multi-Ingredient Ointment (Zinc Oxide 20% Topical Oint) 1 gm TP DAILY [facility] Last Admin: 04/20/18 13:31 Dose: 1 applic Multivitamins (Total B With C -) 1 each PO DAILY [facility] Last Admin: 04/20/18 13:29 Dose: 1 each Ranitidine HCl (Zantac -) 150 mg PO DAILY [facility] Last Admin: 04/20/18 13:31 Dose: 150 mg Tamsulosin HCl (Flomax -) 0.4 mg PO HS [facility] Last Admin: 04/19/18 22:54 Dose: 0.4 mg - Objective Vital Signs: Vital Signs Temperature 98.8 F 04/20/18 14:47 Pulse Rate 65 04/20/18 14:47 Respiratory Rate 18 04/20/18 14:47 Blood Pressure 106/52 04/20/18 14:47 O2 Sat by Pulse Oximetry (%) 97 04/19/18 20:40 Constitutional: Yes: Calm Eyes: Yes: Conjunctiva Clear HENT: Yes: Atraumatic Neck: Yes: Supple Cardiovascular: Yes: S1, S2 Respiratory: Yes: CTA Bilaterally Gastrointestinal: Yes: Soft Genitourinary: Yes: WNL Edema: No Wound/Incision: Yes: Dressing Dry and Intact Neurological: Yes: Confusion Labs: CBC, BMP 04/19/18 16:30 04/19/18 16:30 INR, PTT INR 1.20 (0.83-1.09) H 08/23/18 22:22 Problem List - Problems (1) Diabetes Code(s): E11.9 - TYPE 2 DIABETES MELLITUS WITHOUT COMPLICATIONS Qualifiers: 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 type: type 1 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 complication status: with circulatory complication (2) ESRD (end stage renal disease) on dialysis Code(s): N18.6 - END STAGE RENAL DISEASE; Z99.2 - DEPENDENCE ON RENAL DIALYSIS (3) Syncope Code(s): R55 - SYNCOPE AND COLLAPSE (4) Anemia Code(s): D64.9 - ANEMIA, UNSPECIFIED Assessment/Plan Current Medications Generic Name Dose Route Start Last Admin Trade Name Freq PRN Reason Stop Dose Admin Acetaminophen 650 mg 04/15/18 19:05 04/18/18 12:19 Tylenol - PO 650 mg Q6H PRN Administration PAIN LEVEL 1-5 Artificial Tears 1 drop 04/15/18 19:05 Artificial Tears OU Q12H PRN DRY EYES Aspirin 81 mg 04/16/18 10:00 04/20/18 13:41 Ecotrin - PO Not Given DAILY [facility] Atorvastatin Calcium 40 mg 04/15/18 22:00 04/19/18 22:54 Lipitor - PO 40 mg HS [facility] Administration Calcium Acetate 667 mg 04/16/18 08:00 04/20/18 13:29 Phoslo - PO 667 mg TIDCM [facility] Administration Carvedilol 12.5 mg 04/15/18 22:00 04/20/18 13:30 Coreg - PO 12.5 mg BID [facility] Administration Citalopram Hydrobromide 20 mg 04/16/18 10:00 04/20/18 13:30 Celexa - PO 20 mg DAILY [facility] Administration Clopidogrel Bisulfate 75 mg 04/16/18 10:00 04/20/18 13:30 Plavix - PO Not Given DAILY [facility] Collagenase 1 applic 04/16/18 10:00 04/20/18 13:31 Santyl - TP 1 applic DAILY [facility] Administration Protocol Dextrose 25 gm 04/19/18 14:00 04/19/18 10:15 D50w (Syringe) - IVPUSH 25 gm Q4H PRN Administration HYPOGLYCEMIA Divalproex Sodium 125 mg 04/15/18 22:00 04/20/18 13:30 Depakote - PO 125 mg BID [facility] Administration Docusate Sodium 300 mg 04/15/18 22:00 09/14/18 22:54 Colace - PO 300 mg HS [facility] Administration Folic Acid 1 mg 04/16/18 10:00 04/20/18 13:29 Folic Acid - PO 1 mg DAILY [facility] Administration Gabapentin 100 mg 04/15/18 22:00 04/20/18 15:08 Neurontin - PO Not Given TID [facility] Haloperidol 2 mg 04/15/18 22:00 04/19/18 21:04 Haldol - PO Not Given HS [facility] Sodium Chloride 250 mls @ 3,000 mls/hr 04/15/18 20:14 Normal Saline - IV PRN PRN Hypotension during Dialysis Dextrose/Sodium Chloride 1,000 mls @ 40 mls/hr 04/15/18 19:05 04/19/18 22:46 D5-1/2ns - IV Not Given ASDIR [facility] Piperacillin Sod/Tazobactam 50 mls @ 100 mls/hr 04/16/18 02:00 04/20/18 13:28 Sod 2.25 gm/ Dextrose IVPB 100 mls/hr Q8H-IV [facility] Administration Protocol Insulin Aspart 1 vial 04/15/18 22:00 04/20/18 13:35 Novolog Vial Sliding Scale - SQ 8 unit ACHS [facility] Administration Protocol Insulin Detemir 10 units 04/20/18 22:00 Levemir Vial SQ HS [facility] Mirtazapine 7.5 mg 04/15/18 22:00 04/19/18 21:04 Remeron - PO Not Given HS [facility] Multi-Ingredient Ointment 1 gm 04/16/18 10:00 04/20/18 13:31 Zinc Oxide 20% Topical Oint TP 1 applic DAILY [facility] Administration Multivitamins 1 each 04/16/18 10:00 04/20/18 13:29 Total B With C - PO 1 each DAILY [facility] Administration Ranitidine HCl 150 mg 04/16/18 10:00 04/20/18 13:31 Zantac - PO 150 mg DAILY [facility] Administration Tamsulosin HCl 0.4 mg 04/15/18 22:00 04/19/18 22:54 Flomax - PO 0.4 mg HS [facility] Administration Impression 1. ESRD 2. anemia 3. HTN 4. Chol 5. DM 6. BPH 7. CAD 8. hypoglycemia 9. CHF 10. syncope 11. depression 12. PVD Plan - pt is more awake and alert today - next HD on Sunday - will coordinate with OR - psych eval to adjust meds - monitor blood sugar - cont wound care - cont epo - renal diet Dr Donovan
[2018-04-20] MEDS: TAMSULOSIN HCL 0.4 MG CAP.ER.24H (FP) PO SCH (22:20)
[2018-04-20] MEDS: DOCUSATE SODIUM 100 MG CAPSULE (FP) PO SCH (22:20)
[2018-04-20] MEDS: INSULIN (LEVEMIR) 100 UNITS/ML UNITS SQ SCH (22:23)
[2018-04-20] MEDS: ATORVASTATIN CA 40 MG TABLET (FP) PO SCH (22:24)
[2018-04-20] MEDS: HALOPERIDOL 1 MG TABLET (FP) PO SCH (23:42)
[2018-04-20] MEDS: MIRTAZAPINE 15 MG TABLET (FP) PO SCH (23:42)
[2018-04-21] MEDS ORDERED: PIPERACILLIN/TAZOBACTAM 2.25 GM VIAL IVPB ONE ×4 (00:58→23:46)
[2018-04-21] MEDS ORDERED: DEXTROSE 5%-WATER - 50 ML IVPB ONE ×4 (00:58→23:47)
[2018-04-21] MEDS: PIPERACILLIN/TAZOB 2.25 GM 2.25 GM in DEXTROSE 5%-WATER - 50 ML IVPB SCH ×3 (02:05→17:16)
[2018-04-21] MEDS: GABAPENTIN 100 MG CAPSULE (FP) PO SCH ×3 (06:58→21:54)
[2018-04-21] MEDS: INSULIN SLIDING SCALE (NOVOLOG) 1 VIAL SQ SCH ×4 (06:59→21:59)
[2018-04-21] MEDS ORDERED: INSULIN (NOVOLOG) ASPART 100 UNITS/ML 10ML VIAL ONE (07:15)
[2018-04-21] MEDS ORDERED: INSULIN (LEVEMIR) 100 UNITS/ML UNITS SQ ONE (07:15)
[2018-04-21 07:35] LABS: BASO % 0.9 % (0-2.0); HEMATOCRIT 25.7 % (35.4-49); HEMOGLOBIN 8.4 GM/dL (11.7-16.9); LYMPH % 8.6 % (8-40); MCH 31.7 pg (25.7-33.7); MCHC 32.9 g/dl (32.0-35.9); MEAN CELL VOLUME 96.4 fl (80-96); MEAN PLT VOLUME 6.3 fl (7.5-11.1); MONO % 8.4 % (3.8-10.2); NEUT % 77.1 % (42.8-82.8); PLATELET COUNT 314 K/MM3 (134-434); RBC 2.66 M/mm3 (4.00-5.60); RDW 16.7 % (11.9-15.9); WHITE BLOOD COUNT 12.1 K/mm3 (4.0-10.0)
[2018-04-21] MEDS: CALCIUM ACETATE 667 MG CAPSULE (FP) PO SCH ×3 (07:50→16:29)
[2018-04-21 07:57] LABS: ANION GAP 13 MMOL/L (8-16); BLOOD UREA NITROGEN 73 mg/dL (7-18); CALCIUM 8.4 mg/dL (8.5-10.1); CHLORIDE 101 mmol/L (98-107); CO2 29 mmol/L (21-32); GLUCOSE,RANDOM 148 mg/dL (74-106); POTASSIUM 3.7 mmol/L (3.5-5.1); SODIUM 143 mmol/L (136-145)
[2018-04-21 08:00] LABS: ALK PHOS 57 U/L (45-117); BILIRUBIN,TOTAL 0.5 mg/dL (0.2-1.0); CREATININE 6.2 mg/dL (0.55-1.3); SGOT/AST 32 U/L (15-37); SGPT/ALT 25 U/L (13-61); TOT PROT 6.4 g/dl (6.4-8.2)
[2018-04-21] MEDS ORDERED: PT OWN MED DRAWER 7, Y5N ONE (09:50)
--- NOTE | 2018-04-21 09:55 | PN ---
Progress Note (short form) - Note Progress Note: Chief Complaint: Events noted, notes reviewed, lethargic but arousable, denies any chest pain or dyspnea History of Present Illness: Seen and examined. Events noted, notes reviewed, lethargic but arousable, denies any chest pain or dyspnea Echocardiography dated 12/19/2017 revealed normal LV size with mild-moderate decrease LV function, mild STEPHEN, mild MR, TR, can't exclude MV vegetation Medications: Current Medications Acetaminophen (Tylenol -) 650 mg PO Q6H PRN PRN Reason: PAIN LEVEL 1-5 Last Admin: 04/18/18 12:19 Dose: 650 mg Artificial Tears (Artificial Tears) 1 drop OU Q12H PRN PRN Reason: DRY EYES Aspirin (Ecotrin -) 81 mg PO DAILY [facility] Last Admin: 04/20/18 13:41 Dose: Not Given Atorvastatin Calcium (Lipitor -) 40 mg PO HS [facility] Last Admin: 04/20/18 22:24 Dose: 40 mg Calcium Acetate (Phoslo -) 667 mg PO TIDCM [facility] Last Admin: 04/21/18 07:50 Dose: 667 mg Carvedilol (Coreg -) 12.5 mg PO BID [facility] Last Admin: 04/20/18 22:20 Dose: 12.5 mg Citalopram Hydrobromide (Celexa -) 20 mg PO DAILY [facility] Last Admin: 04/20/18 13:30 Dose: 20 mg Clopidogrel Bisulfate (Plavix -) 75 mg PO DAILY [facility] Last Admin: 04/20/18 13:30 Dose: Not Given Collagenase (Santyl -) 1 applic TP DAILY [facility]; Protocol Last Admin: 04/20/18 13:31 Dose: 1 applic Dextrose (D50w (Syringe) -) 25 gm IVPUSH Q4H PRN PRN Reason: HYPOGLYCEMIA Last Admin: 04/19/18 10:15 Dose: 25 gm Divalproex Sodium (Depakote -) 125 mg PO BID [facility] Last Admin: 04/20/18 22:22 Dose: 125 mg Docusate Sodium (Colace -) 300 mg PO HS [facility] Last Admin: 04/20/18 22:20 Dose: 300 mg Folic Acid (Folic Acid -) 1 mg PO DAILY [facility] Last Admin: 04/20/18 13:29 Dose: 1 mg Gabapentin (Neurontin -) 100 mg PO TID [facility] Last Admin: 04/21/18 06:58 Dose: Not Given Haloperidol (Haldol -) 2 mg PO HS [facility] Last Admin: 04/20/18 23:42 Dose: Not Given Sodium Chloride (Normal Saline -) 250 mls @ 3,000 mls/hr IV PRN PRN PRN Reason: Hypotension during Dialysis Dextrose/Sodium Chloride (D5-1/2ns -) 1,000 mls @ 40 mls/hr IV ASDIR [facility] Last Admin: 04/19/18 22:46 Dose: Not Given Piperacillin Sod/Tazobactam (Sod 2.25 gm/ Dextrose) 50 mls @ 100 mls/hr IVPB Q8H-IV [facility]; Protocol Last Admin: 04/21/18 02:05 Dose: 100 mls/hr Insulin Aspart (Novolog Vial Sliding Scale -) 1 vial SQ [facility]; Protocol Last Admin: 04/21/18 06:59 Dose: Not Given Insulin Detemir (Levemir Vial) [address] [facility] Last Admin: 04/20/18 22:23 Dose: 10 unit Mirtazapine (Remeron -) 7.5 mg PO HS [facility] Last Admin: 04/20/18 23:42 Dose: Not Given Multi-Ingredient Ointment (Zinc Oxide 20% Topical Oint) 1 gm TP DAILY [facility] Last Admin: 04/20/18 13:31 Dose: 1 applic Multivitamins (Total B With C -) 1 each PO DAILY [facility] Last Admin: 04/20/18 13:29 Dose: 1 each Ranitidine HCl (Zantac -) 150 mg PO DAILY [facility] Last Admin: 04/20/18 13:31 Dose: 150 mg Tamsulosin HCl (Flomax -) 0.4 mg PO HS [facility] Last Admin: 04/20/18 22:20 Dose: 0.4 mg Vital Signs: Last Vital Signs Temp Pulse Resp BP Pulse Ox 98.0 F 60 18 132/55 97 04/21/18 06:09 04/21/18 06:09 04/21/18 06:09 04/21/18 06:09 04/20/18 21:00 Intake & Output 04/18/18 04/19/18 04/20/18 04/21/18 23:59 23:59 23:59 23:59 Intake Total 650 600 350 250 Balance 650 600 350 250 Weight 151 lb 8 oz 154 lb 6 oz 151 lb Constitutional: No Distress, Calm Neck: Supple Negative JVD No Bruit Respiratory: Diminished Breath Sounds at the Bases Bilaterally Cardiovascular: S1 S2 Regular Rate and Rhythm Grade 1-2/6 SM Gastrointestinal: Soft Benign Normal Bowel Sounds Ext: No Edema Labs: CBC, BMP 04/21/18 06:15 04/21/18 06:15 Assessment/Plan ASSESSMENT: 1. PAD post lower extremity bypass, heel wound (non healing) post angioplasty right posterior tibial artery, plan for debridment 2. CAD post CABG, angina pectoris with history of demand ischemic injury 3. Systolic/diastolic LV dysfunction with class 0 NYHA classification LV failure , compensated/euvolemic 4. Moderate MR 5. TR with pulmonary HTN 6. Hypertension/HCVD 7. 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 8. Hypercholesterolemia 9. ESRD on HD 10. Anemia of chronic disease PLAN: 1. Continue Carvedilol 2. Continue ASA and Plavix 3. Continue Lipitor 4. Antibiotic as per the primary team 5. HD per renal team 6. Wound debridment as per vascular surgery Umu Grace MD
[2018-04-21] MEDS: CARVEDILOL 12.5 MG TABLET (FP) PO SCH ×2 (09:58→21:52)
[2018-04-21] MEDS: RANITIDINE HCL 150 MG TABLET (FP) PO SCH (09:58)
[2018-04-21] MEDS: VITAMIN B COMPLEX W/C COMBO TABLET (FP) PO SCH (09:58)
[2018-04-21] MEDS: FOLIC ACID 1 MG TABLET (FP) PO SCH (09:59)
[2018-04-21] MEDS: DEXTROSE 5%-0.45% SALINE 1,000 ML IV SCH (09:59)
[2018-04-21] MEDS: COLLAGENASE CLOSTRIDIUM HIST. 30 GRAMS TUBE TP SCH (09:59)
[2018-04-21] MEDS: ASPIRIN COATED 81 MG TABLET.EC PO SCH (09:59)
[2018-04-21] MEDS: CLOPIDOGREL BISULFATE 75 MG TABLET (FP) PO SCH (09:59)
[2018-04-21] MEDS: CITALOPRAM HYDROBROMIDE 20 MG TABLET (FP) PO SCH (09:59)
[2018-04-21] MEDS: DIVALPROEX SODIUM 125 MG TABLET E.C. PO SCH ×2 (10:00→21:54)
[2018-04-21] MEDS: ZINC OXIDE 20% TOPICAL OINTMENT 454 GM JAR TP SCH (10:00)
--- NOTE | 2018-04-21 13:27 | PN ---
Progress Note (short form) - Note Progress Note: pt seen/ examined more awake comfortable eating well today for or tomorrow Low grade temp Vital Signs Temp 98.6 F 04/21/18 08:00 Pulse 62 04/21/18 08:00 Resp 18 04/21/18 08:00 BP 143/55 04/21/18 08:00 Pulse Ox 98 04/21/18 09:00 Intake & Output 04/20/18 04/21/18 04/21/18 23:59 11:59 23:59 Intake Total 250 Balance 250 Intake: IVPB 50 Oral 200 Other: Voiding Method Incontinent Incontinent # Unmeasured Voids Void 2 Bowel Movement Yes # Bowel Movements 1 Active Medications Acetaminophen (Tylenol -) 650 mg PO Q6H PRN PRN Reason: PAIN LEVEL 1-5 Last Admin: 04/18/18 12:19 Dose: 650 mg Artificial Tears (Artificial Tears) 1 drop OU Q12H PRN PRN Reason: DRY EYES Aspirin (Ecotrin -) 81 mg PO DAILY [facility] Last Admin: 04/21/18 09:59 Dose: Not Given Atorvastatin Calcium (Lipitor -) 40 mg PO [facility] Last Admin: 04/20/18 22:24 Dose: 40 mg Calcium Acetate (Phoslo -) 667 mg PO TIDCM [facility] Last Admin: 04/21/18 11:16 Dose: 667 mg Carvedilol (Coreg -) 12.5 mg PO BID [facility] Last Admin: 04/21/18 09:58 Dose: 12.5 mg Citalopram Hydrobromide (Celexa -) 20 mg PO DAILY [facility] Last Admin: 04/21/18 09:59 Dose: 20 mg Clopidogrel Bisulfate (Plavix -) 75 mg PO DAILY [facility] Last Admin: 04/21/18 09:59 Dose: Not Given Collagenase (Santyl -) 1 applic TP DAILY [facility]; Protocol Last Admin: 04/21/18 09:59 Dose: 1 applic Dextrose (D50w (Syringe) -) 25 gm IVPUSH Q4H PRN PRN Reason: HYPOGLYCEMIA Last Admin: 04/19/18 10:15 Dose: 25 gm Divalproex Sodium (Depakote -) 125 mg PO BID [facility] Last Admin: 04/21/18 10:00 Dose: 125 mg Docusate Sodium (Colace -) 300 mg PO [facility] Last Admin: 04/20/18 22:20 Dose: 300 mg Folic Acid (Folic Acid -) 1 mg PO DAILY [facility] Last Admin: 04/21/18 09:59 Dose: 1 mg Gabapentin (Neurontin -) 100 mg PO TID [facility] Last Admin: 04/21/18 13:18 Dose: Not Given Haloperidol (Haldol -) 2 mg PO HS [facility] Last Admin: 04/20/18 23:42 Dose: Not Given Sodium Chloride (Normal Saline -) 250 mls @ 3,000 mls/hr IV PRN PRN PRN Reason: Hypotension during Dialysis Dextrose/Sodium Chloride (D5-1/2ns -) 1,000 mls @ 40 mls/hr IV ASDIR [facility] Last Admin: 04/21/18 09:59 Dose: Not Given Piperacillin Sod/Tazobactam (Sod 2.25 gm/ Dextrose) 50 mls @ 100 mls/hr IVPB Q8H-IV [facility]; Protocol Last Admin: 04/21/18 09:58 Dose: 100 mls/hr Insulin Aspart (Novolog Vial Sliding Scale -) 1 vial SQ [facility]; Protocol Last Admin: 04/21/18 11:18 Dose: 2 unit Insulin Detemir (Levemir Vial) 10 units SQ [facility] Last Admin: 04/20/18 22:23 Dose: 10 unit Mirtazapine (Remeron -) 7.5 mg PO HS [facility] Last Admin: 04/20/18 23:42 Dose: Not Given Multi-Ingredient Ointment (Zinc Oxide 20% Topical Oint) 1 gm TP DAILY [facility] Last Admin: 04/21/18 10:00 Dose: 1 applic Multivitamins (Total B With C -) 1 each PO DAILY [facility] Last Admin: 04/21/18 09:58 Dose: 1 each Ranitidine HCl (Zantac -) 150 mg PO DAILY [facility] Last Admin: 04/21/18 09:58 Dose: 150 mg Tamsulosin HCl (Flomax -) 0.4 mg PO [facility] Last Admin: 04/20/18 22:20 Dose: 0.4 mg CBC, BMP 04/21/18 06:15 04/21/18 06:15 Microbiology 04/20/18 00:10 Blood Culture - Preliminary Blood - Peripheral Venous NO GROWTH OBTAINED AFTER 24 HOURS, INCUBATION TO CONTINUE FOR 4 DAYS. 04/20/18 00:10 Blood Culture - Preliminary Blood - Peripheral Venous NO GROWTH OBTAINED AFTER 24 HOURS, INCUBATION TO CONTINUE FOR 4 DAYS. Physical Exam- Constitutional: Yes: No Distress, Comfortable. Neck: Yes: Supple. no jvd Cardiovascular: Yes: Regular Rate and Rhythm Respiratory: Yes: Diminished Gastrointestinal: Yes: Soft/ non tender. bs + Edema: No Wound/Incision: Yes: Bilateral heel ulcers -legs are warm , feet feel cool Neurological: Yes: Alert Psychiatric: Yes: awake. calm. Assessment/Plan clinically stable Continue present care abx-- Zosyn d/c ? has low grade temp/ elevated wbc i/d to follow repeat cultures -ve so far monitor bgm restarted on levemir yesterday - low dose will follow Problem List - Problems (1) Diabetes Code(s): E11.9 - TYPE 2 DIABETES MELLITUS WITHOUT COMPLICATIONS Qualifiers: 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 type: type 1 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 complication status: with circulatory complication (2) ESRD (end stage renal disease) on dialysis Code(s): N18.6 - END STAGE RENAL DISEASE; Z99.2 - DEPENDENCE ON RENAL DIALYSIS (3) Infected pressure ulcer Code(s): L89.90 - PRESSURE ULCER OF UNSPECIFIED SITE, UNSPECIFIED STAGE; L08.9 - LOCAL INFECTION OF THE SKIN AND SUBCUTANEOUS TISSUE, UNSP (4) Syncope Code(s): R55 - SYNCOPE AND COLLAPSE (5) Acute metabolic encephalopathy due to hypoglycemia Code(s): G93.41 - METABOLIC ENCEPHALOPATHY; E16.2 - HYPOGLYCEMIA, UNSPECIFIED (6) Anemia Code(s): D64.9 - ANEMIA, UNSPECIFIED (7) CAD (coronary artery disease) Code(s): I25.10 - ATHSCL HEART DISEASE OF [place] CORONARY ARTERY W/O ANG PCTRS (8) ESRD (end stage renal disease) on dialysis Code(s): N18.6 - END STAGE RENAL DISEASE; Z99.2 - DEPENDENCE ON RENAL DIALYSIS
[2018-04-21] MEDS ORDERED: SODIUM CHLORIDE 250 ML IV PRN (14:38)
--- NOTE | 2018-04-21 14:38 | PN ---
Progress Note, Physician History of Present Illness: Pt seen and examined at bedside. He is drowsy today. - Current Medication List Current Medications: Active Medications Acetaminophen (Tylenol -) 650 mg PO Q6H PRN PRN Reason: PAIN LEVEL 1-5 Last Admin: 04/18/18 12:19 Dose: 650 mg Artificial Tears (Artificial Tears) 1 drop OU Q12H PRN PRN Reason: DRY EYES Aspirin (Ecotrin -) 81 mg PO DAILY [facility] Last Admin: 04/21/18 09:59 Dose: Not Given Atorvastatin Calcium (Lipitor -) 40 mg PO HS [facility] Last Admin: 04/20/18 22:24 Dose: 40 mg Calcium Acetate (Phoslo -) 667 mg PO TIDCM [facility] Last Admin: 04/21/18 11:16 Dose: 667 mg Carvedilol (Coreg -) 12.5 mg PO BID [facility] Last Admin: 04/21/18 09:58 Dose: 12.5 mg Citalopram Hydrobromide (Celexa -) 20 mg PO DAILY [facility] Last Admin: 04/21/18 09:59 Dose: 20 mg Clopidogrel Bisulfate (Plavix -) 75 mg PO DAILY [facility] Last Admin: 04/21/18 09:59 Dose: Not Given Collagenase (Santyl -) 1 applic TP DAILY [facility]; Protocol Last Admin: 04/21/18 09:59 Dose: 1 applic Dextrose (D50w (Syringe) -) 25 gm IVPUSH Q4H PRN PRN Reason: HYPOGLYCEMIA Last Admin: 04/19/18 10:15 Dose: 25 gm Divalproex Sodium (Depakote -) 125 mg PO BID [facility] Last Admin: 04/21/18 10:00 Dose: 125 mg Docusate Sodium (Colace -) 300 mg PO HS [facility] Last Admin: 04/20/18 22:20 Dose: 300 mg Folic Acid (Folic Acid -) 1 mg PO DAILY [facility] Last Admin: 04/21/18 09:59 Dose: 1 mg Gabapentin (Neurontin -) 100 mg PO TID [facility] Last Admin: 04/21/18 13:18 Dose: Not Given Haloperidol (Haldol -) 2 mg PO HS [facility] Last Admin: 04/20/18 23:42 Dose: Not Given Sodium Chloride (Normal Saline -) 250 mls @ 3,000 mls/hr IV PRN PRN PRN Reason: Hypotension during Dialysis Dextrose/Sodium Chloride (D5-1/2ns -) 1,000 mls @ 40 mls/hr IV ASDIR [facility] Last Admin: 04/21/18 09:59 Dose: Not Given Piperacillin Sod/Tazobactam (Sod 2.25 gm/ Dextrose) 50 mls @ 100 mls/hr IVPB Q8H-IV [facility]; Protocol Last Admin: 04/21/18 09:58 Dose: 100 mls/hr Insulin Aspart (Novolog Vial Sliding Scale -) 1 vial SQ [facility]; Protocol Last Admin: 04/21/18 11:18 Dose: 2 unit Insulin Detemir (Levemir Vial) 10 units SQ [facility] Last Admin: 04/20/18 22:23 Dose: 10 unit Mirtazapine (Remeron -) 7.5 mg PO HS [facility] Last Admin: 04/20/18 23:42 Dose: Not Given Multi-Ingredient Ointment (Zinc Oxide 20% Topical Oint) 1 gm TP DAILY [facility] Last Admin: 04/21/18 10:00 Dose: 1 applic Multivitamins (Total B With C -) 1 each PO DAILY [facility] Last Admin: 04/21/18 09:58 Dose: 1 each Ranitidine HCl (Zantac -) 150 mg PO DAILY [facility] Last Admin: 04/21/18 09:58 Dose: 150 mg Tamsulosin HCl (Flomax -) 0.4 mg PO [facility] Last Admin: 04/20/18 22:20 Dose: 0.4 mg - Objective Vital Signs: Vital Signs Temperature 98.6 F 04/21/18 08:00 Pulse Rate 62 04/21/18 08:00 Respiratory Rate 18 04/21/18 08:00 Blood Pressure 143/55 04/21/18 08:00 O2 Sat by Pulse Oximetry (%) 98 04/21/18 09:00 Constitutional: Yes: Calm Eyes: Yes: Conjunctiva Clear HENT: Yes: Atraumatic Neck: Yes: Supple Cardiovascular: Yes: S1, S2 Respiratory: Yes: CTA Bilaterally Gastrointestinal: Yes: Normal Bowel Sounds, Soft Genitourinary: Yes: Incontinence Musculoskeletal: Yes: Muscle Weakness Edema: No Neurological: Yes: Confusion Labs: CBC, BMP 04/21/18 06:15 04/21/18 06:15 INR, PTT INR 1.20 (0.83-1.09) H 03/28/18 22:22 Problem List - Problems (1) Diabetes Code(s): E11.9 - TYPE 2 DIABETES MELLITUS WITHOUT COMPLICATIONS Qualifiers: 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 type: type 1 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 complication status: with circulatory complication (2) ESRD (end stage renal disease) on dialysis Code(s): N18.6 - END STAGE RENAL DISEASE; Z99.2 - DEPENDENCE ON RENAL DIALYSIS (3) Syncope Code(s): R55 - SYNCOPE AND COLLAPSE (4) Anemia Code(s): D64.9 - ANEMIA, UNSPECIFIED Assessment/Plan Current Medications Generic Name Dose Route Start Last Admin Trade Name Freq PRN Reason Stop Dose Admin Acetaminophen 650 mg 04/15/18 19:05 04/18/18 12:19 Tylenol - PO 650 mg Q6H PRN Administration PAIN LEVEL 1-5 Artificial Tears 1 drop 04/15/18 19:05 Artificial Tears OU Q12H PRN DRY EYES Aspirin 81 mg 04/16/18 10:00 04/21/18 09:59 Ecotrin - PO Not Given DAILY [facility] Atorvastatin Calcium 40 mg 04/15/18 22:00 04/20/18 22:24 Lipitor - PO 40 mg HS [facility] Administration Calcium Acetate 667 mg 04/16/18 08:00 04/21/18 11:16 Phoslo - PO 667 mg TIDCM [facility] Administration Carvedilol 12.5 mg 04/15/18 22:00 04/21/18 09:58 Coreg - PO 12.5 mg BID [facility] Administration Citalopram Hydrobromide 20 mg 04/16/18 10:00 04/21/18 09:59 Celexa - PO 20 mg DAILY [facility] Administration Clopidogrel Bisulfate 75 mg 04/16/18 10:00 04/21/18 09:59 Plavix - PO Not Given DAILY [facility] Collagenase 1 applic 04/16/18 10:00 04/21/18 09:59 Santyl - TP 1 applic DAILY [facility] Administration Protocol Dextrose 25 gm 04/19/18 14:00 04/19/18 10:15 D50w (Syringe) - IVPUSH 25 gm Q4H PRN Administration HYPOGLYCEMIA Divalproex Sodium 125 mg 04/15/18 22:00 04/21/18 10:00 Depakote - PO 125 mg BID [facility] Administration Docusate Sodium 300 mg 04/15/18 22:00 04/20/18 22:20 Colace - PO 300 mg HS [facility] Administration Folic Acid 1 mg 04/16/18 10:00 04/21/18 09:59 Folic Acid - PO 1 mg DAILY [facility] Administration Gabapentin 100 mg 04/15/18 22:00 04/21/18 13:18 Neurontin - PO Not Given TID [facility] Haloperidol 2 mg 04/15/18 22:00 04/20/18 23:42 Haldol - PO Not Given HS [facility] Sodium Chloride 250 mls @ 3,000 mls/hr 04/15/18 20:14 Normal Saline - IV PRN PRN Hypotension during Dialysis Dextrose/Sodium Chloride 1,000 mls @ 40 mls/hr 04/15/18 19:05 04/21/18 09:59 D5-1/2ns - IV Not Given ASDIR [facility] Piperacillin Sod/Tazobactam 50 mls @ 100 mls/hr 04/16/18 02:00 04/21/18 09:58 Sod 2.25 gm/ Dextrose IVPB 100 mls/hr Q8H-IV [facility] Administration Protocol Insulin Aspart 1 vial 04/15/18 22:00 04/21/18 11:18 Novolog Vial Sliding Scale - SQ 2 unit ACHS [facility] Administration Protocol Insulin Detemir 10 units 04/20/18 22:00 04/20/18 22:23 Levemir Vial SQ 10 unit HS [facility] Administration Mirtazapine 7.5 mg 04/15/18 22:00 04/20/18 23:42 Remeron - PO Not Given HS [facility] Multi-Ingredient Ointment 1 gm 04/16/18 10:00 04/21/18 10:00 Zinc Oxide 20% Topical Oint TP 1 applic DAILY [facility] Administration Multivitamins 1 each 04/16/18 10:00 04/21/18 09:58 Total B With C - PO 1 each DAILY [facility] Administration Ranitidine HCl 150 mg 04/16/18 10:00 04/21/18 09:58 Zantac - PO 150 mg DAILY [facility] Administration Tamsulosin HCl 0.4 mg 04/15/18 22:00 04/20/18 22:20 Flomax - PO 0.4 mg HS [facility] Administration Impression 1. ESRD 2. anemia 3. HTN 4. Chol 5. DM 6. BPH 7. CAD 8. hypoglycemia 9. CHF 10. syncope 11. depression 12. PVD Plan - HD tomorrow - vascular follow up - psych eval - monitor blood sugar - cont wound care - cont epo - renal diet Dr Donovan
--- NOTE | 2018-04-21 21:51 | PN ---
Progress Note, Physician History of Present Illness: Awake, alert c/o bilateral heel pain Afebrile WBC elevated 13K Wound c/s mixed silvia - Current Medication List Current Medications: Active Medications Acetaminophen (Tylenol -) 650 mg PO Q6H PRN PRN Reason: PAIN LEVEL 1-5 Last Admin: 04/18/18 12:19 Dose: 650 mg Artificial Tears (Artificial Tears) 1 drop OU Q12H PRN PRN Reason: DRY EYES Aspirin (Ecotrin -) 81 mg PO DAILY [facility] Last Admin: 04/21/18 09:59 Dose: Not Given Atorvastatin Calcium (Lipitor -) 40 mg PO HS [facility] Last Admin: 04/20/18 22:24 Dose: 40 mg Calcium Acetate (Phoslo -) 667 mg PO TIDCM [facility] Last Admin: 04/21/18 16:29 Dose: 667 mg Carvedilol (Coreg -) 12.5 mg PO BID [facility] Last Admin: 04/21/18 09:58 Dose: 12.5 mg Citalopram Hydrobromide (Celexa -) 20 mg PO DAILY [facility] Last Admin: 04/21/18 09:59 Dose: 20 mg Clopidogrel Bisulfate (Plavix -) 75 mg PO DAILY [facility] Last Admin: 04/21/18 09:59 Dose: Not Given Collagenase (Santyl -) 1 applic TP DAILY [facility]; Protocol Last Admin: 04/21/18 09:59 Dose: 1 applic Dextrose (D50w (Syringe) -) 25 gm IVPUSH Q4H PRN PRN Reason: HYPOGLYCEMIA Last Admin: 04/19/18 10:15 Dose: 25 gm Divalproex Sodium (Depakote -) 125 mg PO BID [facility] Last Admin: 04/21/18 10:00 Dose: 125 mg Docusate Sodium (Colace -) 300 mg PO HS [facility] Last Admin: 04/20/18 22:20 Dose: 300 mg Epoetin Jose Francisco (Epogen -) 12,000 unit IVPUSH ONCE ONE Stop: 04/22/18 14:39 Folic Acid (Folic Acid -) 1 mg PO DAILY [facility] Last Admin: 04/21/18 09:59 Dose: 1 mg Gabapentin (Neurontin -) 100 mg PO TID [facility] Last Admin: 04/21/18 13:18 Dose: Not Given Haloperidol (Haldol -) 2 mg PO HS [facility] Last Admin: 04/20/18 23:42 Dose: Not Given Sodium Chloride (Normal Saline -) 250 mls @ 3,000 mls/hr IV PRN PRN PRN Reason: Hypotension during Dialysis Dextrose/Sodium Chloride (D5-1/2ns -) 1,000 mls @ 40 mls/hr IV ASDIR [facility] Last Admin: 04/21/18 09:59 Dose: Not Given Piperacillin Sod/Tazobactam (Sod 2.25 gm/ Dextrose) 50 mls @ 100 mls/hr IVPB Q8H-IV [facility]; Protocol Last Admin: 04/21/18 17:16 Dose: 100 mls/hr Sodium Chloride (Normal Saline -) 250 mls @ 3,000 mls/hr IV PRN PRN PRN Reason: Hypotension during Dialysis Stop: 04/22/18 14:38 Insulin Aspart (Novolog Vial Sliding Scale -) 1 vial SQ [facility]; Protocol Last Admin: 04/21/18 16:33 Dose: 4 unit Insulin Detemir (Levemir Vial) 10 units SQ [facility] Last Admin: 04/20/18 22:23 Dose: 10 unit Mirtazapine (Remeron -) 7.5 mg PO HS [facility] Last Admin: 04/20/18 23:42 Dose: Not Given Multi-Ingredient Ointment (Zinc Oxide 20% Topical Oint) 1 gm TP DAILY [facility] Last Admin: 04/21/18 10:00 Dose: 1 applic Multivitamins (Total B With C -) 1 each PO DAILY [facility] Last Admin: 04/21/18 09:58 Dose: 1 each Ranitidine HCl (Zantac -) 150 mg PO DAILY [facility] Last Admin: 04/21/18 09:58 Dose: 150 mg Tamsulosin HCl (Flomax -) 0.4 mg PO HS [facility] Last Admin: 04/20/18 22:20 Dose: 0.4 mg - Objective Vital Signs: Vital Signs Temperature 98 F 04/21/18 18:00 Pulse Rate 56 L 04/21/18 18:00 Respiratory Rate 18 04/21/18 18:00 Blood Pressure 137/54 04/21/18 18:00 O2 Sat by Pulse Oximetry (%) 98 04/21/18 09:00 Constitutional: Yes: No Distress Cardiovascular: Yes: Regular Rate and Rhythm, S1, S2 Respiratory: Yes: Diminished Extremities: Yes: Other (+ necrotic, malodorous heel ulcers) Labs: CBC, BMP 04/21/18 06:15 04/21/18 06:15 INR, PTT INR 1.20 (0.83-1.09) H 03/28/18 22:22 Assessment/Plan Bilateral necrotic heel ulcers ESRD Continue Zosyn For debridement in [place] tomorrow
[2018-04-21] MEDS: ATORVASTATIN CA 40 MG TABLET (FP) PO SCH (21:52)
[2018-04-21] MEDS: TAMSULOSIN HCL 0.4 MG CAP.ER.24H (FP) PO SCH (21:52)
[2018-04-21] MEDS: DOCUSATE SODIUM 100 MG CAPSULE (FP) PO SCH (21:53)
[2018-04-21] MEDS: MIRTAZAPINE 15 MG TABLET (FP) PO SCH (22:00)
[2018-04-21] MEDS: HALOPERIDOL 1 MG TABLET (FP) PO SCH (22:00)
[2018-04-21] MEDS: INSULIN (LEVEMIR) 100 UNITS/ML UNITS SQ SCH (22:00)
[2018-04-22] MEDS: PIPERACILLIN/TAZOB 2.25 GM 2.25 GM in DEXTROSE 5%-WATER - 50 ML IVPB SCH ×2 (01:14→09:25)
[2018-04-22] MEDS: DEXTROSE 5%-0.45% SALINE 1,000 ML IV SCH (01:17)
[2018-04-22] MEDS: GABAPENTIN 100 MG CAPSULE (FP) PO SCH ×3 (05:48→22:34)
[2018-04-22] MEDS: INSULIN SLIDING SCALE (NOVOLOG) 1 VIAL SQ SCH ×4 (06:08→22:38)
[2018-04-22] MEDS: CALCIUM ACETATE 667 MG CAPSULE (FP) PO SCH ×3 (07:30→17:42)
[2018-04-22] MEDS ORDERED: PIPERACILLIN/TAZOBACTAM 2.25 GM VIAL IVPB ONE ×3 (09:05→18:21)
[2018-04-22] MEDS ORDERED: DEXTROSE 5%-WATER - 50 ML IVPB ONE ×2 (09:05→16:57)
[2018-04-22] MEDS ORDERED: PT OWN MED DRAWER 7, Y5N ONE ×3 (09:05→21:12)
[2018-04-22] MEDS: CITALOPRAM HYDROBROMIDE 20 MG TABLET (FP) PO SCH (09:25)
[2018-04-22] MEDS: CARVEDILOL 12.5 MG TABLET (FP) PO SCH ×2 (09:25→22:34)
[2018-04-22] MEDS: RANITIDINE HCL 150 MG TABLET (FP) PO SCH (09:25)
[2018-04-22] MEDS: DIVALPROEX SODIUM 125 MG TABLET E.C. PO SCH ×2 (09:26→22:37)
--- NOTE | 2018-04-22 10:33 | PN ---
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 Denies chest pain or dyspnea. - Current Medication List Current Medications: Active Medications Acetaminophen (Tylenol -) 650 mg PO Q6H PRN PRN Reason: PAIN LEVEL 1-5 Last Admin: 04/18/18 12:19 Dose: 650 mg Artificial Tears (Artificial Tears) 1 drop OU Q12H PRN PRN Reason: DRY EYES Aspirin (Ecotrin -) 81 mg PO DAILY [facility] Last Admin: 04/21/18 09:59 Dose: Not Given Atorvastatin Calcium (Lipitor -) 40 mg PO HS [facility] Last Admin: 04/21/18 21:52 Dose: 40 mg Calcium Acetate (Phoslo -) 667 mg PO TIDCM [facility] Last Admin: 04/22/18 07:30 Dose: Not Given Carvedilol (Coreg -) 12.5 mg PO BID [facility] Last Admin: 04/22/18 09:25 Dose: 12.5 mg Citalopram Hydrobromide (Celexa -) 20 mg PO DAILY [facility] Last Admin: 04/22/18 09:25 Dose: 20 mg Clopidogrel Bisulfate (Plavix -) 75 mg PO DAILY [facility] Last Admin: 04/21/18 09:59 Dose: Not Given Collagenase (Santyl -) 1 applic TP DAILY [facility]; Protocol Last Admin: 04/21/18 09:59 Dose: 1 applic Dextrose (D50w (Syringe) -) 25 gm IVPUSH Q4H PRN PRN Reason: HYPOGLYCEMIA Last Admin: 04/19/18 10:15 Dose: 25 gm Divalproex Sodium (Depakote -) 125 mg PO BID [facility] Last Admin: 04/22/18 09:26 Dose: 125 mg Docusate Sodium (Colace -) 300 mg PO HS [facility] Last Admin: 04/21/18 21:53 Dose: 300 mg Epoetin Jose Francisco (Epogen -) 12,000 unit IVPUSH ONCE ONE Stop: 04/22/18 14:39 Folic Acid (Folic Acid -) 1 mg PO DAILY [facility] Last Admin: 04/21/18 09:59 Dose: 1 mg Gabapentin (Neurontin -) 100 mg PO TID [facility] Last Admin: 04/22/18 05:48 Dose: Not Given Haloperidol (Haldol -) 2 mg PO HS [facility] Last Admin: 04/21/18 22:00 Dose: Not Given Sodium Chloride (Normal Saline -) 250 mls @ 3,000 mls/hr IV PRN PRN PRN Reason: Hypotension during Dialysis Dextrose/Sodium Chloride (D5-1/2ns -) 1,000 mls @ 40 mls/hr IV ASDIR [facility] Last Admin: 04/22/18 01:17 Dose: Not Given Piperacillin Sod/Tazobactam (Sod 2.25 gm/ Dextrose) 50 mls @ 100 mls/hr IVPB Q8H-IV [facility]; Protocol Last Admin: 04/22/18 09:25 Dose: 100 mls/hr Sodium Chloride (Normal Saline -) 250 mls @ 3,000 mls/hr IV PRN PRN PRN Reason: Hypotension during Dialysis Stop: 04/22/18 14:38 Insulin Aspart (Novolog Vial Sliding Scale -) 1 vial SQ [facility]; Protocol Last Admin: 04/22/18 06:08 Dose: 2 unit Insulin Detemir (Levemir Vial) 10 units SQ [facility] Last Admin: 04/21/18 22:00 Dose: 10 unit Mirtazapine (Remeron -) 7.5 mg PO HS [facility] Last Admin: 04/21/18 22:00 Dose: Not Given Multi-Ingredient Ointment (Zinc Oxide 20% Topical Oint) 1 gm TP DAILY [facility] Last Admin: 04/21/18 10:00 Dose: 1 applic Multivitamins (Total B With C -) 1 each PO DAILY [facility] Last Admin: 04/21/18 09:58 Dose: 1 each Ranitidine HCl (Zantac -) 150 mg PO DAILY [facility] Last Admin: 04/22/18 09:25 Dose: 150 mg Tamsulosin HCl (Flomax -) 0.4 mg PO HS [facility] Last Admin: 04/21/18 21:52 Dose: 0.4 mg - Objective Vital Signs: Vital Signs Temperature 98.6 F 04/22/18 06:00 Pulse Rate 62 04/22/18 06:00 Respiratory Rate 18 04/22/18 06:00 Blood Pressure 139/61 04/22/18 06:00 O2 Sat by Pulse Oximetry (%) 98 04/21/18 21:00 Constitutional: Yes: No Distress, Calm, Thin Neck: Yes: Supple Cardiovascular: Yes: Regular Rate and Rhythm Respiratory: Yes: Regular, Diminished, On Nasal O2 Gastrointestinal: Yes: Normal Bowel Sounds, Soft Edema: No Wound/Incision: Yes: Dressing Dry and Intact Labs: CBC, BMP 04/21/18 06:15 04/21/18 06:15 INR, PTT INR 1.20 (0.83-1.09) H 03/28/18 22:22 Problem List - Problems (1) Pre-operative cardiovascular examination Code(s): Z01.810 - ENCOUNTER FOR PREPROCEDURAL CARDIOVASCULAR EXAMINATION (2) Diabetes Code(s): E11.9 - TYPE 2 DIABETES MELLITUS WITHOUT COMPLICATIONS Qualifiers: 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 type: type 1 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 complication status: with circulatory complication (3) ESRD (end stage renal disease) on dialysis Code(s): N18.6 - END STAGE RENAL DISEASE; Z99.2 - DEPENDENCE ON RENAL DIALYSIS (4) Eschar of heel Code(s): R23.4 - CHANGES IN SKIN TEXTURE (5) CAD (coronary artery disease) Code(s): I25.10 - ATHSCL HEART DISEASE OF [place] CORONARY ARTERY W/O ANG PCTRS (6) CHF (congestive heart failure) Code(s): I50.9 - HEART FAILURE, UNSPECIFIED (7) CAD (coronary artery disease) Code(s): I25.10 - ATHSCL HEART DISEASE OF [place] CORONARY ARTERY W/O ANG PCTRS Qualifiers: Coronary Disease-Associated Artery/Lesion type: [place] artery [place] vs. transplanted heart: [place] heart Associated angina: without angina Qualified Code(s): I25.10 - Atherosclerotic heart disease of [place] coronary artery without angina pectoris (8) HTN (hypertension) Code(s): I10 - ESSENTIAL (PRIMARY) HYPERTENSION Qualifiers: Hypertension type: essential hypertension Qualified Code(s): I10 - Essential (primary) hypertension (9) Hx of CABG Code(s): Z95.1 - PRESENCE OF AORTOCORONARY BYPASS GRAFT (10) Hypercholesterolemia Code(s): E78.00 - PURE HYPERCHOLESTEROLEMIA, UNSPECIFIED (11) PAD (peripheral artery disease) Code(s): I73.9 - PERIPHERAL VASCULAR DISEASE, UNSPECIFIED Assessment/Plan 12/19/2017 Normal LV size with mild-mod decrease LV fxn, mild STEPHEN, mild TR, MR, can't exclude MV vegetation 1. PAD s/p LE bypass, heel wound (non healing) s/p angioplasty right posterior tibial artery, plan for debridment 2. HTN 3. Hypercholesterolemia 4. DM 5. Diastolic/Systolic LV dysfunction with class 0 NYHA classification LV failure 6. CAD s/p CABG, PCI/stent, demand ischemia 7. ESRD on HD 8. Anemia of CKD PLAN: 1. No absolute contraindication in proceeding with vascular intervention in view of absence of ischemic symptoms, decompensated congestive heart failure or malignant arrhythmias. 2. Continue Carvedilol 12.5 bid, ASA 81 qd, Plavix 75 qd and Lipitor 40 qhs 3. Empiric antibiotic course and wound care/debridement as per vascular surgery 4. HD per renal 5. DVT and GI prophylaxis
--- NOTE | 2018-04-22 11:59 | PN ---
Progress Note (short form) - Note Progress Note: pt seen/ examined . for or this evening overall condition same. chronic ill appearance awake/ calm mood stable sugar ok-- Vital Signs Temp 98.6 F 04/22/18 06:00 Pulse 62 04/22/18 06:00 Resp 18 04/22/18 06:00 BP 139/61 04/22/18 06:00 Pulse Ox 98 04/21/18 21:00 Intake & Output 04/21/18 04/22/18 04/22/18 23:59 11:59 23:59 Intake Total 300 100 Balance 300 100 Weight 155 lb 8 oz Intake: IVPB 100 100 Oral 200 Other: Voiding Method Incontinent Incontinent # Unmeasured Voids Void 2 2 Bowel Movement Yes: 1 No Weight Measurement Method Patient Lift Scale Active Medications Acetaminophen (Tylenol -) 650 mg PO Q6H PRN PRN Reason: PAIN LEVEL 1-5 Last Admin: 04/18/18 12:19 Dose: 650 mg Artificial Tears (Artificial Tears) 1 drop OU Q12H PRN PRN Reason: DRY EYES Aspirin (Ecotrin -) 81 mg PO DAILY [facility] Last Admin: 04/21/18 09:59 Dose: Not Given Atorvastatin Calcium (Lipitor -) 40 mg PO HS [facility] Last Admin: 04/21/18 21:52 Dose: 40 mg Calcium Acetate (Phoslo -) 667 mg PO TIDCM [facility] Last Admin: 04/22/18 07:30 Dose: Not Given Carvedilol (Coreg -) 12.5 mg PO BID [facility] Last Admin: 04/22/18 09:25 Dose: 12.5 mg Citalopram Hydrobromide (Celexa -) 20 mg PO DAILY [facility] Last Admin: 04/22/18 09:25 Dose: 20 mg Clopidogrel Bisulfate (Plavix -) 75 mg PO DAILY [facility] Last Admin: 04/21/18 09:59 Dose: Not Given Collagenase (Santyl -) 1 applic TP DAILY [facility]; Protocol Last Admin: 04/21/18 09:59 Dose: 1 applic Dextrose (D50w (Syringe) -) 25 gm IVPUSH Q4H PRN PRN Reason: HYPOGLYCEMIA Last Admin: 04/19/18 10:15 Dose: 25 gm Divalproex Sodium (Depakote -) 125 mg PO BID [facility] Last Admin: 04/22/18 09:26 Dose: 125 mg Docusate Sodium (Colace -) 300 mg PO HS [facility] Last Admin: 04/21/18 21:53 Dose: 300 mg Epoetin Jose Francisco (Epogen -) 12,000 unit IVPUSH ONCE ONE Stop: 04/22/18 14:39 Folic Acid (Folic Acid -) 1 mg PO DAILY [facility] Last Admin: 04/21/18 09:59 Dose: 1 mg Gabapentin (Neurontin -) 100 mg PO TID [facility] Last Admin: 04/22/18 05:48 Dose: Not Given Haloperidol (Haldol -) 2 mg PO HS [facility] Last Admin: 04/21/18 22:00 Dose: Not Given Sodium Chloride (Normal Saline -) 250 mls @ 3,000 mls/hr IV PRN PRN PRN Reason: Hypotension during Dialysis Dextrose/Sodium Chloride (D5-1/2ns -) 1,000 mls @ 40 mls/hr IV ASDIR [facility] Last Admin: 04/22/18 01:17 Dose: Not Given Piperacillin Sod/Tazobactam (Sod 2.25 gm/ Dextrose) 50 mls @ 100 mls/hr IVPB Q8H-IV [facility]; Protocol Last Admin: 04/22/18 09:25 Dose: 100 mls/hr Sodium Chloride (Normal Saline -) 250 mls @ 3,000 mls/hr IV PRN PRN PRN Reason: Hypotension during Dialysis Stop: 04/22/18 14:38 Insulin Aspart (Novolog Vial Sliding Scale -) 1 vial SQ [facility]; Protocol Last Admin: 04/22/18 06:08 Dose: 2 unit Insulin Detemir (Levemir Vial) 10 units SQ [facility] Last Admin: 04/21/18 22:00 Dose: 10 unit Mirtazapine (Remeron -) 7.5 mg PO HS [facility] Last Admin: 04/21/18 22:00 Dose: Not Given Multi-Ingredient Ointment (Zinc Oxide 20% Topical Oint) 1 gm TP DAILY [facility] Last Admin: 04/21/18 10:00 Dose: 1 applic Multivitamins (Total B With C -) 1 each PO DAILY [facility] Last Admin: 04/21/18 09:58 Dose: 1 each Ranitidine HCl (Zantac -) 150 mg PO DAILY [facility] Last Admin: 04/22/18 09:25 Dose: 150 mg Tamsulosin HCl (Flomax -) 0.4 mg PO HS [facility] Last Admin: 04/21/18 21:52 Dose: 0.4 mg CBC, BMP 04/21/18 06:15 04/21/18 06:15 Microbiology 04/20/18 00:10 Blood Culture - Preliminary Blood - Peripheral Venous NO GROWTH OBTAINED AFTER 48 HOURS, INCUBATION TO CONTINUE FOR 3 DAYS. 04/20/18 00:10 Blood Culture - Preliminary Blood - Peripheral Venous NO GROWTH OBTAINED AFTER 48 HOURS, INCUBATION TO CONTINUE FOR 3 DAYS. Physical Exam- Constitutional: Yes: No Distress, Comfortable. Neck: Yes: Supple. no jvd Cardiovascular: Yes: Regular Rate and Rhythm Respiratory: Yes: Diminished Gastrointestinal: Yes: Soft/ non tender. bs + Edema: No Wound/Incision: Yes: Bilateral heel ulcers -legs are warm , feet feel cool Neurological: Yes: Alert Psychiatric: Yes: awake. calm. Assessment/Plan clinically stable Continue present care abx-- Zosyn wbc trending down i/d f/u noted monitor bgm dialysis today pt is npo and surgery scheduled later today Concern for hypoglycemia- will start on small fluids after dialysis discussed with nursing staff will follow Problem List - Problems (1) Diabetes Code(s): E11.9 - TYPE 2 DIABETES MELLITUS WITHOUT COMPLICATIONS Qualifiers: 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 type: type 1 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 complication status: with circulatory complication (2) ESRD (end stage renal disease) on dialysis Code(s): N18.6 - END STAGE RENAL DISEASE; Z99.2 - DEPENDENCE ON RENAL DIALYSIS (3) Infected pressure ulcer Code(s): L89.90 - PRESSURE ULCER OF UNSPECIFIED SITE, UNSPECIFIED STAGE; L08.9 - LOCAL INFECTION OF THE SKIN AND SUBCUTANEOUS TISSUE, UNSP (4) Syncope Code(s): R55 - SYNCOPE AND COLLAPSE (5) Acute metabolic encephalopathy due to hypoglycemia Code(s): G93.41 - METABOLIC ENCEPHALOPATHY; E16.2 - HYPOGLYCEMIA, UNSPECIFIED (6) Anemia Code(s): D64.9 - ANEMIA, UNSPECIFIED (7) CAD (coronary artery disease) Code(s): I25.10 - ATHSCL HEART DISEASE OF [place] CORONARY ARTERY W/O ANG PCTRS (8) ESRD (end stage renal disease) on dialysis Code(s): N18.6 - END STAGE RENAL DISEASE; Z99.2 - DEPENDENCE ON RENAL DIALYSIS
[2018-04-22] MEDS: VITAMIN B COMPLEX W/C COMBO TABLET (FP) PO SCH (12:05)
[2018-04-22] MEDS: FOLIC ACID 1 MG TABLET (FP) PO SCH (12:05)
[2018-04-22] MEDS: ASPIRIN COATED 81 MG TABLET.EC PO SCH (12:05)
[2018-04-22] MEDS: CLOPIDOGREL BISULFATE 75 MG TABLET (FP) PO SCH (12:05)
[2018-04-22] MEDS ORDERED: EPOETIN ALFA 2,000 UNIT/1 ML VIAL IVPUSH ONE ×2 (14:15→14:38)
--- NOTE | 2018-04-22 15:25 | PN ---
Progress Note, Physician History of Present Illness: Pt seen and examined at bedside. He is awake and getting HD. He denies shortness of breath. - Current Medication List Current Medications: Active Medications Acetaminophen (Tylenol -) 650 mg PO Q6H PRN PRN Reason: PAIN LEVEL 1-5 Last Admin: 04/18/18 12:19 Dose: 650 mg Artificial Tears (Artificial Tears) 1 drop OU Q12H PRN PRN Reason: DRY EYES Aspirin (Ecotrin -) 81 mg PO DAILY [facility] Last Admin: 04/22/18 12:05 Dose: Not Given Atorvastatin Calcium (Lipitor -) 40 mg PO HS [facility] Last Admin: 04/21/18 21:52 Dose: 40 mg Calcium Acetate (Phoslo -) 667 mg PO TIDCM [facility] Last Admin: 04/22/18 12:06 Dose: Not Given Carvedilol (Coreg -) 12.5 mg PO BID [facility] Last Admin: 04/22/18 09:25 Dose: 12.5 mg Citalopram Hydrobromide (Celexa -) 20 mg PO DAILY [facility] Last Admin: 04/22/18 09:25 Dose: 20 mg Clopidogrel Bisulfate (Plavix -) 75 mg PO DAILY [facility] Last Admin: 04/22/18 12:05 Dose: Not Given Collagenase (Santyl -) 1 applic TP DAILY [facility]; Protocol Last Admin: 04/21/18 09:59 Dose: 1 applic Dextrose (D50w (Syringe) -) 25 gm IVPUSH Q4H PRN PRN Reason: HYPOGLYCEMIA Last Admin: 04/19/18 10:15 Dose: 25 gm Divalproex Sodium (Depakote -) 125 mg PO BID [facility] Last Admin: 04/22/18 09:26 Dose: 125 mg Docusate Sodium (Colace -) 300 mg PO HS [facility] Last Admin: 04/21/18 21:53 Dose: 300 mg Folic Acid (Folic Acid -) 1 mg PO DAILY [facility] Last Admin: 04/22/18 12:05 Dose: Not Given Gabapentin (Neurontin -) 100 mg PO TID [facility] Last Admin: 04/22/18 13:56 Dose: Not Given Haloperidol (Haldol -) 2 mg PO HS [facility] Last Admin: 04/21/18 22:00 Dose: Not Given Sodium Chloride (Normal Saline -) 250 mls @ 3,000 mls/hr IV PRN PRN PRN Reason: Hypotension during Dialysis Dextrose/Sodium Chloride (D5-1/2ns -) 1,000 mls @ 40 mls/hr IV ASDIR [facility] Last Admin: 04/22/18 01:17 Dose: Not Given Piperacillin Sod/Tazobactam (Sod 2.25 gm/ Dextrose) 50 mls @ 100 mls/hr IVPB Q8H-IV [facility]; Protocol Last Admin: 04/22/18 09:25 Dose: 100 mls/hr Insulin Aspart (Novolog Vial Sliding Scale -) 1 vial SQ [facility]; Protocol Last Admin: 04/22/18 12:06 Dose: Not Given Insulin Detemir (Levemir Vial) 10 units SQ [facility] Last Admin: 04/21/18 22:00 Dose: 10 unit Mirtazapine (Remeron -) 7.5 mg PO HS [facility] Last Admin: 04/21/18 22:00 Dose: Not Given Multi-Ingredient Ointment (Zinc Oxide 20% Topical Oint) 1 gm TP DAILY [facility] Last Admin: 04/21/18 10:00 Dose: 1 applic Multivitamins (Total B With C -) 1 each PO DAILY [facility] Last Admin: 04/22/18 12:05 Dose: Not Given Ranitidine HCl (Zantac -) 150 mg PO DAILY [facility] Last Admin: 04/22/18 09:25 Dose: 150 mg Tamsulosin HCl (Flomax -) 0.4 [address] [facility] Last Admin: 04/21/18 21:52 Dose: 0.4 mg - Objective Vital Signs: Vital Signs Temperature 98.5 F 04/22/18 10:00 Pulse Rate 58 L 04/22/18 14:05 Respiratory Rate 18 04/22/18 14:05 Blood Pressure 126/50 04/22/18 14:05 O2 Sat by Pulse Oximetry (%) 98 04/22/18 10:00 Constitutional: Yes: Calm Eyes: Yes: Conjunctiva Clear HENT: Yes: Atraumatic Cardiovascular: Yes: S1, S2 Respiratory: Yes: CTA Bilaterally, On Nasal O2 Gastrointestinal: Yes: Soft Genitourinary: Yes: Incontinence Edema: No Wound/Incision: Yes: Dressing Dry and Intact Neurological: Yes: Confusion Labs: CBC, BMP 04/21/18 06:15 04/21/18 06:15 INR, PTT INR 1.20 (0.83-1.09) H 03/28/18 22:22 Problem List - Problems (1) Diabetes Code(s): E11.9 - TYPE 2 DIABETES MELLITUS WITHOUT COMPLICATIONS Qualifiers: 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 type: type 1 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 complication status: with circulatory complication (2) ESRD (end stage renal disease) on dialysis Code(s): N18.6 - END STAGE RENAL DISEASE; Z99.2 - DEPENDENCE ON RENAL DIALYSIS (3) Syncope Code(s): R55 - SYNCOPE AND COLLAPSE (4) Anemia Code(s): D64.9 - ANEMIA, UNSPECIFIED Assessment/Plan Current Medications Generic Name Dose Route Start Last Admin Trade Name Freq PRN Reason Stop Dose Admin Acetaminophen 650 mg 04/15/18 19:05 04/18/18 12:19 Tylenol - PO 650 mg Q6H PRN Administration PAIN LEVEL 1-5 Artificial Tears 1 drop 04/15/18 19:05 Artificial Tears OU Q12H PRN DRY EYES Aspirin 81 mg 04/16/18 10:00 04/22/18 12:05 Ecotrin - PO Not Given DAILY [facility] Atorvastatin Calcium 40 mg 04/15/18 22:00 04/21/18 21:52 Lipitor - PO 40 mg HS [facility] Administration Calcium Acetate 667 mg 04/16/18 08:00 04/22/18 12:06 Phoslo - PO Not Given TIDCM [facility] Carvedilol 12.5 mg 04/15/18 22:00 04/22/18 09:25 Coreg - PO 12.5 mg BID [facility] Administration Citalopram Hydrobromide 20 mg 04/16/18 10:00 04/22/18 09:25 Celexa - PO 20 mg DAILY [facility] Administration Clopidogrel Bisulfate 75 mg 04/16/18 10:00 04/22/18 12:05 Plavix - PO Not Given DAILY [facility] Collagenase 1 applic 04/16/18 10:00 04/21/18 09:59 Santyl - TP 1 applic DAILY [facility] Administration Protocol Dextrose 25 gm 04/19/18 14:00 04/19/18 10:15 D50w (Syringe) - IVPUSH 25 gm Q4H PRN Administration HYPOGLYCEMIA Divalproex Sodium 125 mg 04/15/18 22:00 04/22/18 09:26 Depakote - PO 125 mg BID [facility] Administration Docusate Sodium 300 mg 04/15/18 22:00 04/21/18 21:53 Colace - PO 300 mg HS [facility] Administration Folic Acid 1 mg 04/16/18 10:00 04/22/18 12:05 Folic Acid - PO Not Given DAILY [facility] Gabapentin 100 mg 04/15/18 22:00 04/22/18 13:56 Neurontin - PO Not Given TID [facility] Haloperidol 2 mg 04/15/18 22:00 04/21/18 22:00 Haldol - PO Not Given HS [facility] Sodium Chloride 250 mls @ 3,000 mls/hr 04/15/18 20:14 Normal Saline - IV PRN PRN Hypotension during Dialysis Dextrose/Sodium Chloride 1,000 mls @ 40 mls/hr 04/15/18 19:05 04/22/18 01:17 D5-1/2ns - IV Not Given ASDIR [facility] Piperacillin Sod/Tazobactam 50 mls @ 100 mls/hr 04/16/18 02:00 04/22/18 09:25 Sod 2.25 gm/ Dextrose IVPB 100 mls/hr Q8H-IV [facility] Administration Protocol Insulin Aspart 1 vial 04/15/18 22:00 04/22/18 12:06 Novolog Vial Sliding Scale - SQ Not Given ACHS [facility] Protocol Insulin Detemir 10 units 04/20/18 22:00 04/21/18 22:00 Levemir Vial SQ 10 unit HS [facility] Administration Mirtazapine 7.5 mg 04/15/18 22:00 04/21/18 22:00 Remeron - PO Not Given HS [facility] Multi-Ingredient Ointment 1 gm 04/16/18 10:00 04/21/18 10:00 Zinc Oxide 20% Topical Oint TP 1 applic DAILY [facility] Administration Multivitamins 1 each 04/16/18 10:00 04/22/18 12:05 Total B With C - PO Not Given DAILY [facility] Ranitidine HCl 150 mg 04/16/18 10:00 04/22/18 09:25 Zantac - PO 150 mg DAILY [facility] Administration Tamsulosin HCl 0.4 mg 04/15/18 22:00 04/21/18 21:52 Flomax - PO 0.4 mg HS [facility] Administration Impression 1. ESRD 2. anemia 3. HTN 4. Chol 5. DM 6. BPH 7. CAD 8. hypoglycemia 9. CHF 10. syncope 11. depression 12. PVD Plan - HD today - pt going to [place] - monitor blood sugar - psych eval - cont wound care - cont epogen for anemia - renal diet Dr Donovan
[2018-04-22] MEDS ORDERED: CLOTRIMAZOLE 1% CREAM 15 GM TUBE TP PRN ×2 (15:27→19:12)
[2018-04-22] MEDS: COLLAGENASE CLOSTRIDIUM HIST. 30 GRAMS TUBE TP SCH (17:31)
[2018-04-22] MEDS: ZINC OXIDE 20% TOPICAL OINTMENT 454 GM JAR TP SCH (17:32)
[2018-04-22] MEDS ORDERED: ONDANSETRON 4 MG/2 ML VIAL IVPUSH PRN ×2 (17:37→19:12)
[2018-04-22] MEDS ORDERED: SUCCINYLCHOLINE CHLORIDE 200 MG/10 ML VIAL ONE (17:45)
[2018-04-22] MEDS ORDERED: PROPOFOL 20 ML ONE (17:45)
[2018-04-22] MEDS ORDERED: LIDOCAINE HCL/PF 2% SDV 5ML VIAL ONE (17:46)
[2018-04-22] MEDS ORDERED: LIDOCAINE HCL 2% (20ML MULTI-DOSE VIAL) NR ONE (17:47)
--- NOTE | 2018-04-22 18:43 | OP ---
Operative Note - Note: Operative Date: 04/22/18 Pre-Operative Diagnosis: Gangrene bilateral heels Operation: Excisional debridement of heel wounds, bilateral Findings: Left heel wound 4 x 4 cm with necrotic eschar extending into SubQ fat. Right heel wound 10 x 5 cm with full thickness necrosis to calcaneus and periosteum involving muscle. Post-Operative Diagnosis: Same as Pre-op Surgeon: Augustin Schofield Anesthesiologist/SOFTWARE APPLICATIONS ENGINEER: Keon Hardy Anesthesia: General
[2018-04-22] MEDS ORDERED: SODIUM CHLORIDE 250 ML IV PRN (19:12)
[2018-04-22] MEDS ORDERED: DEXTROSE 50%-WATER 25 GM/50 ML DISP.SYRIN IVPUSH PRN (19:12)
[2018-04-22] MEDS ORDERED: DEXTROSE 5%-0.45% SALINE 1,000 ML IV SCH (19:12)
[2018-04-22] MEDS ORDERED: ARTIFICIAL TEARS (POLYVINYL ALCOHOL) OPTH DROPS OU PRN (19:12)
[2018-04-22] MEDS: DOCUSATE SODIUM 100 MG CAPSULE (FP) PO SCH (22:33)
[2018-04-22] MEDS: ATORVASTATIN CA 40 MG TABLET (FP) PO SCH (22:34)
[2018-04-22] MEDS: MIRTAZAPINE 15 MG TABLET (FP) PO SCH (22:34)
[2018-04-22] MEDS: TAMSULOSIN HCL 0.4 MG CAP.ER.24H (FP) PO SCH (22:37)
[2018-04-22] MEDS: HALOPERIDOL 1 MG TABLET (FP) PO SCH (22:38)
[2018-04-22] MEDS: INSULIN (LEVEMIR) 100 UNITS/ML UNITS SQ SCH (22:49)
[2018-04-23 00:10] LABS: BASO % 1.1 % (0-2.0); EOS % 3.9 % (0-4.5); HEMATOCRIT 25.6 % (35.4-49); HEMOGLOBIN 8.6 GM/dL (11.7-16.9); LYMPH % 6.6 % (8-40); MCH 32.2 pg (25.7-33.7); MCHC 33.5 g/dl (32.0-35.9); MEAN CELL VOLUME 96.1 fl (80-96); MEAN PLT VOLUME 6.6 fl (7.5-11.1); NEUT % 83.4 % (42.8-82.8); PLATELET COUNT 337 K/MM3 (134-434); RBC 2.66 M/mm3 (4.00-5.60); RDW 16.6 % (11.9-15.9); WHITE BLOOD COUNT 9.1 K/mm3 (4.0-10.0)
[2018-04-23] MEDS ORDERED: DEXTROSE 5%-WATER - 50 ML IVPB ONE ×3 (02:53→17:31)
[2018-04-23] MEDS ORDERED: PIPERACILLIN/TAZOBACTAM 2.25 GM VIAL IVPB ONE ×3 (02:53→17:31)
[2018-04-23] MEDS: PIPERACILLIN/TAZOB 2.25 GM 2.25 GM in DEXTROSE 5%-WATER - 50 ML IVPB SCH ×3 (02:54→17:32)
[2018-04-23] MEDS: GABAPENTIN 100 MG CAPSULE (FP) PO SCH ×2 (05:30→21:09)
[2018-04-23] MEDS: INSULIN SLIDING SCALE (NOVOLOG) 1 VIAL SQ SCH ×4 (06:13→21:12)
--- NOTE | 2018-04-23 08:23 | PN ---
Progress Note (short form) - Note Progress Note: POD 1 Heel debridement Oozing from wounds overnight. Stopped after platelet transfusion. Dressing change today. Right heel wound extended to calcaneus with necrosis of subcutaneous tissues, muscle and periosteum. There was no viable tissue in the area of debridement which extended onto the plantar forefoot and upper heel. As there are no other options for revascularization leg amputation will be needed to control pain and infection. I have discussed this with patient's family. Left heel wound is stage 3 and should imporve with off-loading and local care. Trial of VAC therapy to be started. Problem List - Problems (1) PAD (peripheral artery disease) Code(s): I73.9 - PERIPHERAL VASCULAR DISEASE, UNSPECIFIED
--- NOTE | 2018-04-23 08:25 | PN ---
Progress Note (short form) - Note Progress Note: Anesthesia Post op Pt seen and examined S:sleeping O: Vital Signs Temperature 97.7 F 04/23/18 05:53 Pulse Rate 61 04/23/18 05:53 Respiratory Rate 18 04/23/18 05:53 Blood Pressure 119/48 04/23/18 05:53 O2 Sat by Pulse Oximetry (%) 100 04/23/18 03:21 CBC, BMP 04/22/18 23:30 04/21/18 06:15 A/P Current Active Problems Diabetes (Acute) ESRD (end stage renal disease) on dialysis (Acute) Eschar of heel (Acute) Fever (Acute) Infected pressure ulcer (Acute) Pre-operative cardiovascular examination (Acute) Syncope (Acute) s/p debridement of heel wound Doing well post op Continue current care Isac Giron MD
--- NOTE | 2018-04-23 09:22 | OP ---
DATE OF OPERATION: 04/22/2018 SURGEON: Augustin Schofield MD PROCEDURE: Excisional debridement of bilateral heel wounds including skin, muscle, and subcutaneous tissues. PREOPERATIVE DIAGNOSIS: Gangrene, bilateral heels. POSTOPERATIVE DIAGNOSIS: Gangrene, bilateral heels. ANESTHESIA: General. ANESTHESIOLOGIST: HI Joshi OPERATIVE FINDINGS: There was a necrotic eschar in the left heel measuring approximately 4 x 4 cm. The necrotic tissue extended into the subcutaneous plane but no deeper. There was a small amount of bleeding from subcutaneous tissues following debridement. The right heel had a necrotic eschar measuring 10 x 5 cm with full-thickness necrosis extending to the periosteum of the calcaneus and into the muscle, extending onto the calcaneus. The wound was extended proximally and distally with no evidence of viable tissue at either end. Small amounts of bleeding were seen from the skin edges, but no significant bleeding was seen in the subcutaneous or muscle tissues. OPERATIVE PROCEDURE: Following routine patient identification, general anesthesia was induced, and the patient was placed in the prone position with appropriate padding. Both feet and lower legs were prepped with Betadine solution. Excisional debridement was performed with scalpel to excise necrotic eschar. The left heel wound was debrided first and extended into subcutaneous tissues which were then further debrided with a curette. Bleeding was controlled with cautery. The wound was covered with a moist saline gauze. Excisional debridement of the right heel eschar was then performed extending into the deep subcutaneous plane. Necrotic tissue and foul odor were present. Further debridement of the skin edges back to try to identify viable tissue was performed, extending the wound to over 15 cm in length. No viable tissue was identified. Muscle was excised where it appeared to be necrotic. The debridement was carried down onto the periosteum of the calcaneus, but the bone was not debrided. The wound was irrigated with saline and covered with a gauze soaked in dilute Betadine. The left heel wound was dressed with saline gauze. Both wounds were covered with Xeroform, dry gauze, ABD pad, and Kerlix, and the patient was then extubated and taken to the recovery room in stable condition. Connor [id number]
[2018-04-23] MEDS ORDERED: ASPIRIN COATED 81 MG TABLET.EC PO SCH (10:00)
[2018-04-23] MEDS ORDERED: CLOPIDOGREL BISULFATE 75 MG TABLET (FP) PO SCH (10:00)
[2018-04-23] MEDS ORDERED: PT OWN MED DRAWER 7, Y5N ONE ×2 (10:07→14:31)
[2018-04-23] MEDS: CALCIUM ACETATE 667 MG CAPSULE (FP) PO SCH ×3 (10:48→17:32)
[2018-04-23] MEDS: CITALOPRAM HYDROBROMIDE 20 MG TABLET (FP) PO SCH (10:50)
[2018-04-23] MEDS: RANITIDINE HCL 150 MG TABLET (FP) PO SCH (10:50)
[2018-04-23] MEDS: FOLIC ACID 1 MG TABLET (FP) PO SCH (10:51)
[2018-04-23] MEDS: DIVALPROEX SODIUM 125 MG TABLET E.C. PO SCH ×2 (10:51→22:31)
[2018-04-23] MEDS: VITAMIN B COMPLEX W/C COMBO TABLET (FP) PO SCH (10:51)
[2018-04-23] MEDS: CARVEDILOL 12.5 MG TABLET (FP) PO SCH ×2 (11:01→21:09)
--- NOTE | 2018-04-23 11:59 | PN ---
Progress Note (short form) - Note Progress Note: - Note Progress Note: Patient seen and examined s/p debridement may need amputation of right as per Vascular spoke with RN Vital Signs - 24 hr 04/22/18 04/22/18 04/22/18 13:00 13:05 13:35 Temperature 98.6 F Pulse Rate 58 L 55 L 56 L Respiratory 18 18 18 Rate Blood Pressure 139/59 137/52 126/55 O2 Sat by Pulse Oximetry (%) 04/22/18 04/22/18 04/22/18 14:05 14:35 15:05 Temperature Pulse Rate 58 L 56 L 58 L Respiratory 18 18 18 Rate Blood Pressure 126/50 126/55 99/45 O2 Sat by Pulse Oximetry (%) 04/22/18 04/22/18 04/22/18 15:35 16:05 16:17 Temperature Pulse Rate 58 L 58 L Respiratory 18 18 18 Rate Blood Pressure 126/55 148/55 164/77 O2 Sat by Pulse Oximetry (%) 04/22/18 04/22/18 04/22/18 16:48 18:00 18:56 Temperature 97.3 F L 97.7 F 98.0 F Pulse Rate 60 63 58 L Respiratory 20 18 20 Rate Blood Pressure 148/54 133/63 125/55 O2 Sat by Pulse 98 Oximetry (%) 04/22/18 04/22/18 04/22/18 19:00 19:15 19:30 Temperature Pulse Rate 59 L 59 L 59 L Respiratory 14 18 20 Rate Blood Pressure 135/41 135/43 149/49 O2 Sat by Pulse 99 99 100 Oximetry (%) 04/22/18 04/22/18 04/22/18 19:45 20:00 20:15 Temperature Pulse Rate 58 L 62 60 Respiratory 11 L 10 L 10 L Rate Blood Pressure 136/46 148/56 138/50 O2 Sat by Pulse 100 100 100 Oximetry (%) 04/22/18 04/22/18 04/23/18 20:30 21:00 03:21 Temperature 98.0 F 97.7 F Pulse Rate 60 63 Respiratory 10 L 18 18 Rate Blood Pressure 140/52 133/63 O2 Sat by Pulse 100 100 Oximetry (%) 04/23/18 04/23/18 05:53 10:00 Temperature 97.7 F 98.2 F Pulse Rate 61 59 L Respiratory 18 18 Rate Blood Pressure 119/48 122/47 O2 Sat by Pulse Oximetry (%) Current Medications Generic Name Dose Route Start Last Admin Trade Name Freq PRN Reason Stop Dose Admin Acetaminophen 650 mg 04/22/18 19:12 Tylenol - PO Q6H PRN PAIN LEVEL 1-5 Artificial Tears 1 drop 04/22/18 19:12 Artificial Tears OU Q12H PRN DRY EYES Atorvastatin Calcium 40 mg 04/22/18 22:00 04/22/18 22:34 Lipitor - PO 40 mg HS ROSIE Administration Calcium Acetate 667 mg 04/23/18 08:00 04/23/18 10:48 Phoslo - PO Not Given TIDCM ROSIE Carvedilol 12.5 mg 04/22/18 22:00 04/23/18 11:01 Coreg - PO Not Given BID ROSIE Citalopram Hydrobromide 20 mg 04/23/18 10:00 04/23/18 10:50 Celexa - PO 20 mg DAILY ROSIE Administration Collagenase 1 applic 04/23/18 10:00 Santyl - TP DAILY ROSIE Protocol Divalproex Sodium 125 mg 04/22/18 22:00 04/23/18 10:51 Depakote - PO 125 mg BID ROSIE Administration Docusate Sodium 300 mg 04/22/18 22:00 04/22/18 22:33 Colace - PO 300 mg HS ROSIE Administration Folic Acid 1 mg 04/23/18 10:00 04/23/18 10:51 Folic Acid - PO 1 mg DAILY ROSIE Administration Gabapentin 100 mg 04/23/18 22:00 Neurontin - PO BID ROSIE Haloperidol 2 mg 04/22/18 22:00 04/22/18 22:38 Haldol - PO 2 mg HS ROSIE Administration Piperacillin Sod/Tazobactam 50 mls @ 100 mls/hr 04/23/18 02:00 04/23/18 10:52 Sod 2.25 gm/ Dextrose IVPB 100 mls/hr Q8H-IV ROSIE Administration Protocol Insulin Aspart 1 vial 04/22/18 22:00 04/23/18 06:13 Novolog Vial Sliding Scale - SQ Not Given ACHS ROSIE Protocol Insulin Detemir 10 units 04/22/18 22:00 04/22/18 22:49 Levemir Vial SQ 10 units HS ROSIE Administration Mirtazapine 7.5 mg 04/22/18 22:00 04/22/18 22:34 Remeron - PO 7.5 mg HS ROSIE Administration Multi-Ingredient Ointment 1 gm 04/23/18 10:00 Zinc Oxide 20% Topical Oint TP DAILY ROSIE Multivitamins 1 each 04/23/18 10:00 04/23/18 10:51 Total B With C - PO 1 each DAILY ROSIE Administration Ondansetron HCl 4 mg 04/22/18 19:12 Zofran Injection IVPUSH Q6H PRN NAUSEA AND/OR VOMITING Ranitidine HCl 150 mg 04/23/18 10:00 04/23/18 10:50 Zantac - PO 150 mg DAILY ROSIE Administration Tamsulosin HCl 0.4 mg 04/22/18 22:00 04/22/18 22:37 Flomax - PO 0.4 mg HS ROSIE Administration Laboratory Results - last 24 hr 04/22/18 04/22/18 04/22/18 16:41 20:51 23:30 WBC 9.1 RBC 2.66 L Hgb 8.6 L Hct 25.6 L MCV 96.1 H MCH 32.2 MCHC 33.5 RDW 16.6 H Plt Count 337 MPV 6.6 L Absolute Neuts (auto) 7.6 Neutrophils % 83.4 H Lymphocytes % 6.6 L D Monocytes % 5.0 Eosinophils % 3.9 Basophils % 1.1 Nucleated RBC % 0 POC Glucometer 172 170 Blood Type Antibody Screen 04/22/18 04/23/18 04/23/18 23:30 05:46 11:42 WBC RBC Hgb Hct MCV MCH MCHC RDW Plt Count MPV Absolute Neuts (auto) Neutrophils % Lymphocytes % Monocytes % Eosinophils % Basophils % Nucleated RBC % POC Glucometer 161 215 Blood Type B POSITIVE Antibody Screen Negative exam- Constitutional: Yes: No Distress, Comfortable. Neck: Yes: Supple. no jvd Cardiovascular: Yes: Regular Rate and Rhythm Respiratory: Yes: Diminished Gastrointestinal: Yes: Soft/ non tender Edema: No Wound/Incision: Yes: Bilateral heel ulcers -legs are warm , feet feel cool Neurological: Yes: Alert Psychiatric: Yes: Alert,calm Assessment/Plan drowsy Continue present care abx-- Zosyn bone scan-ve Arterial doppler-- Atherosclerotic disease psych follow up with regards to meds will be going to OR likely tomorrow for amputation ASA and plavix on hold DC fluids Check repeat CBC-- was bleeding post op and received platelet transfusion Problem List - Problems (1) Diabetes Code(s): E11.9 - TYPE 2 DIABETES MELLITUS WITHOUT COMPLICATIONS Qualifiers: 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 type: type 1 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 complication status: with circulatory complication (2) ESRD (end stage renal disease) on dialysis Code(s): N18.6 - END STAGE RENAL DISEASE; Z99.2 - DEPENDENCE ON RENAL DIALYSIS (3) Infected pressure ulcer Code(s): L89.90 - PRESSURE ULCER OF UNSPECIFIED SITE, UNSPECIFIED STAGE; L08.9 - LOCAL INFECTION OF THE SKIN AND SUBCUTANEOUS TISSUE, UNSP (4) Syncope Code(s): R55 - SYNCOPE AND COLLAPSE (5) Acute metabolic encephalopathy due to hypoglycemia Code(s): G93.41 - METABOLIC ENCEPHALOPATHY; E16.2 - HYPOGLYCEMIA, UNSPECIFIED (6) Anemia Code(s): D64.9 - ANEMIA, UNSPECIFIED (7) CAD (coronary artery disease) Code(s): I25.10 - ATHSCL HEART DISEASE OF [place] CORONARY ARTERY W/O ANG PCTRS (8) ESRD (end stage renal disease) on dialysis Code(s): N18.6 - END STAGE RENAL DISEASE; Z99.2 - DEPENDENCE ON RENAL DIALYSIS
[2018-04-23 12:59] LABS: HEMOGLOBIN 7.6 GM/dL (11.7-16.9); MCHC 33.2 g/dl (32.0-35.9); MEAN CELL VOLUME 96.2 fl (80-96); MEAN PLT VOLUME 6.4 fl (7.5-11.1); PLATELET COUNT 312 K/MM3 (134-434); RBC 2.39 M/mm3 (4.00-5.60); RDW 16.9 % (11.9-15.9); WHITE BLOOD COUNT 7.8 K/mm3 (4.0-10.0)
--- NOTE | 2018-04-23 14:18 | PN ---
Progress Note, Physician Chief Complaint: Events noted Await amputation History of Present Illness: Patient was seen and examined. Arousable with underlying confusion. Chart was reviewed Denies chest pain, SOB or palpitations - Current Medication List Current Medications: Active Medications Acetaminophen (Tylenol -) 650 mg PO Q6H PRN PRN Reason: PAIN LEVEL 1-5 Artificial Tears (Artificial Tears) 1 drop OU Q12H PRN PRN Reason: DRY EYES Atorvastatin Calcium (Lipitor -) 40 mg PO HS [facility] Last Admin: 04/22/18 22:34 Dose: 40 mg Calcium Acetate (Phoslo -) 667 mg PO TIDCM [facility] Last Admin: 04/23/18 13:23 Dose: 667 mg Carvedilol (Coreg -) 12.5 mg PO BID [facility] Last Admin: 04/23/18 11:01 Dose: Not Given Citalopram Hydrobromide (Celexa -) 20 mg PO DAILY [facility] Last Admin: 04/23/18 10:50 Dose: 20 mg Collagenase (Santyl -) 1 applic TP DAILY [facility]; Protocol Divalproex Sodium (Depakote -) 125 mg PO BID [facility] Last Admin: 04/23/18 10:51 Dose: 125 mg Docusate Sodium (Colace -) 300 mg PO [facility] Last Admin: 04/22/18 22:33 Dose: 300 mg Folic Acid (Folic Acid -) 1 mg PO DAILY [facility] Last Admin: 04/23/18 10:51 Dose: 1 mg Gabapentin (Neurontin -) 100 mg PO BID [facility] Haloperidol (Haldol -) 2 mg PO [facility] Last Admin: 04/22/18 22:38 Dose: 2 mg Piperacillin Sod/Tazobactam (Sod 2.25 gm/ Dextrose) 50 mls @ 100 mls/hr IVPB Q8H-IV [facility]; Protocol Last Admin: 04/23/18 10:52 Dose: 100 mls/hr Insulin Aspart (Novolog Vial Sliding Scale -) 1 vial SQ [facility]; Protocol Last Admin: 04/23/18 13:24 Dose: 2 units Insulin Detemir (Levemir Vial) 10 units SQ [facility] Last Admin: 04/22/18 22:49 Dose: 10 units Mirtazapine (Remeron -) 7.5 mg PO [facility] Last Admin: 04/22/18 22:34 Dose: 7.5 mg Multi-Ingredient Ointment (Zinc Oxide 20% Topical Oint) 1 gm TP DAILY [facility] Multivitamins (Total B With C -) 1 each PO DAILY [facility] Last Admin: 04/23/18 10:51 Dose: 1 each Ondansetron HCl (Zofran Injection) 4 mg IVPUSH Q6H PRN PRN Reason: NAUSEA AND/OR VOMITING Ranitidine HCl (Zantac -) 150 mg PO DAILY [facility] Last Admin: 04/23/18 10:50 Dose: 150 mg Tamsulosin HCl (Flomax -) 0.4 mg PO HS [facility] Last Admin: 04/22/18 22:37 Dose: 0.4 mg - Objective Vital Signs: Vital Signs Temperature 98.2 F 04/23/18 10:00 Pulse Rate 59 L 04/23/18 10:00 Respiratory Rate 18 04/23/18 10:00 Blood Pressure 122/47 04/23/18 10:00 O2 Sat by Pulse Oximetry (%) 100 04/23/18 03:21 Neck: Yes: Supple Cardiovascular: Yes: Regular Rate and Rhythm, S1, S2 Respiratory: Yes: Diminished Gastrointestinal: Yes: Normal Bowel Sounds, Soft. No: Tenderness Edema: No Labs: CBC, BMP 04/23/18 12:45 04/21/18 06:15 Problem List - Problems (1) Diabetes Code(s): E11.9 - TYPE 2 DIABETES MELLITUS WITHOUT COMPLICATIONS Qualifiers: 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 type: type 1 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 complication status: with circulatory complication (2) ESRD (end stage renal disease) on dialysis Code(s): N18.6 - END STAGE RENAL DISEASE; Z99.2 - DEPENDENCE ON RENAL DIALYSIS (3) Eschar of heel Code(s): R23.4 - CHANGES IN SKIN TEXTURE (4) Infected pressure ulcer Code(s): L89.90 - PRESSURE ULCER OF UNSPECIFIED SITE, UNSPECIFIED STAGE; L08.9 - LOCAL INFECTION OF THE SKIN AND SUBCUTANEOUS TISSUE, UNSP (5) Altered mental status, unspecified Code(s): R41.82 - ALTERED MENTAL STATUS, UNSPECIFIED Qualifiers: Altered mental status type: transient alteration of awareness Qualified Code(s): R40.4 - Transient alteration of awareness (6) Anemia Code(s): D64.9 - ANEMIA, UNSPECIFIED (7) CAD (coronary artery disease) Code(s): I25.10 - ATHSCL HEART DISEASE OF [place] CORONARY ARTERY W/O ANG PCTRS Qualifiers: Coronary Disease-Associated Artery/Lesion type: [place] artery [place] vs. transplanted heart: [place] heart Associated angina: without angina Qualified Code(s): I25.10 - Atherosclerotic heart disease of [place] coronary artery without angina pectoris (8) CKD (chronic kidney disease) Code(s): N18.9 - CHRONIC KIDNEY DISEASE, UNSPECIFIED Qualifiers: Chronic kidney disease stage: unspecified stage Qualified Code(s): N18.9 - Chronic kidney disease, unspecified (9) Diastolic dysfunction Code(s): I51.9 - HEART DISEASE, UNSPECIFIED (10) HTN (hypertension) Code(s): I10 - ESSENTIAL (PRIMARY) HYPERTENSION Qualifiers: Hypertension type: essential hypertension Qualified Code(s): I10 - Essential (primary) hypertension (11) Hx of CABG Code(s): Z95.1 - PRESENCE OF AORTOCORONARY BYPASS GRAFT (12) Hypercholesterolemia Code(s): E78.00 - PURE HYPERCHOLESTEROLEMIA, UNSPECIFIED (13) PAD (peripheral artery disease) Code(s): I73.9 - PERIPHERAL VASCULAR DISEASE, UNSPECIFIED (14) Acute on chronic diastolic heart failure Code(s): I50.33 - ACUTE ON CHRONIC DIASTOLIC (CONGESTIVE) HEART FAILURE Assessment/Plan 1. PAD s/p LE bypass, heel wound (non healing) s/p angioplasty right posterior tibial artery, plan for debridment/?amputation 2. HTN 3. Hypercholesterolemia 4. DM 5. Diastolic/Systolic LV dysfunction with class 0 NYHA classification LV failure 6. CAD s/p CABG, PCI/stent, demand ischemia 7. ESRD on HD 8. Anemia of CKD PLAN: 1. No absolute contraindication in proceeding with vascular intervention in view of absence of ischemic symptoms, decompensated congestive heart failure or malignant arrhythmias. 2. Continue Carvedilol, ASA, Plavix and Lipitor 3. Empiric antibiotic course and wound care 4. HD per renal 5. DVT and GI prophylaxis Magno Hernandez MD
--- NOTE | 2018-04-23 15:13 | PN ---
Progress Note (short form) - Note Progress Note: Patient seen resting in bed. Reviewed vascular operative report on debridement of both heels. Agree with findings and planned treatment. Will follow as needed. Problem List - Problems (1) Diabetes Code(s): E11.9 - TYPE 2 DIABETES MELLITUS WITHOUT COMPLICATIONS Qualifiers: 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 type: type 1 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 complication status: with circulatory complication (2) ESRD (end stage renal disease) on dialysis Code(s): N18.6 - END STAGE RENAL DISEASE; Z99.2 - DEPENDENCE ON RENAL DIALYSIS (3) Eschar of heel Code(s): R23.4 - CHANGES IN SKIN TEXTURE (4) Fever Code(s): R50.9 - FEVER, UNSPECIFIED (5) Infected pressure ulcer Code(s): L89.90 - PRESSURE ULCER OF UNSPECIFIED SITE, UNSPECIFIED STAGE; L08.9 - LOCAL INFECTION OF THE SKIN AND SUBCUTANEOUS TISSUE, UNSP
--- NOTE | 2018-04-23 16:45 | PN ---
Progress Note, Physician History of Present Illness: Pt seen and examined at bedside. He is less drowsy today. Surgical eval noted. He is going for an amputation tomorrow. - Current Medication List Current Medications: Active Medications Acetaminophen (Tylenol -) 650 mg PO Q6H PRN PRN Reason: PAIN LEVEL 1-5 Artificial Tears (Artificial Tears) 1 drop OU Q12H PRN PRN Reason: DRY EYES Atorvastatin Calcium (Lipitor -) 40 mg PO HS [facility] Last Admin: 04/22/18 22:34 Dose: 40 mg Calcium Acetate (Phoslo -) 667 mg PO TIDCM [facility] Last Admin: 04/23/18 13:23 Dose: 667 mg Carvedilol (Coreg -) 12.5 mg PO BID [facility] Last Admin: 04/23/18 11:01 Dose: Not Given Citalopram Hydrobromide (Celexa -) 20 mg PO DAILY [facility] Last Admin: 04/23/18 10:50 Dose: 20 mg Collagenase (Santyl -) 1 applic TP DAILY [facility]; Protocol Divalproex Sodium (Depakote -) 125 mg PO BID [facility] Last Admin: 04/23/18 10:51 Dose: 125 mg Docusate Sodium (Colace -) 300 mg PO [facility] Last Admin: 04/22/18 22:33 Dose: 300 mg Folic Acid (Folic Acid -) 1 mg PO DAILY [facility] Last Admin: 04/23/18 10:51 Dose: 1 mg Gabapentin (Neurontin -) 100 mg PO BID [facility] Haloperidol (Haldol -) 2 mg PO [facility] Last Admin: 04/22/18 22:38 Dose: 2 mg Piperacillin Sod/Tazobactam (Sod 2.25 gm/ Dextrose) 50 mls @ 100 mls/hr IVPB Q8H-IV [facility]; Protocol Last Admin: 04/23/18 10:52 Dose: 100 mls/hr Insulin Aspart (Novolog Vial Sliding Scale -) 1 vial SQ [facility]; Protocol Last Admin: 04/23/18 13:24 Dose: 2 units Insulin Detemir (Levemir Vial) 10 units SQ [facility] Last Admin: 04/22/18 22:49 Dose: 10 units Mirtazapine (Remeron -) 7.5 mg PO [facility] Last Admin: 04/22/18 22:34 Dose: 7.5 mg Multi-Ingredient Ointment (Zinc Oxide 20% Topical Oint) 1 gm TP DAILY [facility] Multivitamins (Total B With C -) 1 each PO DAILY [facility] Last Admin: 04/23/18 10:51 Dose: 1 each Ondansetron HCl (Zofran Injection) 4 mg IVPUSH Q6H PRN PRN Reason: NAUSEA AND/OR VOMITING Ranitidine HCl (Zantac -) 150 mg PO DAILY [facility] Last Admin: 04/23/18 10:50 Dose: 150 mg Tamsulosin HCl (Flomax -) 0.4 mg PO HS [facility] Last Admin: 04/22/18 22:37 Dose: 0.4 mg - Objective Vital Signs: Vital Signs Temperature 98.2 F 04/23/18 15:00 Pulse Rate 65 04/23/18 15:00 Respiratory Rate 18 04/23/18 15:00 Blood Pressure 122/49 04/23/18 15:00 O2 Sat by Pulse Oximetry (%) 100 04/23/18 03:21 Constitutional: Yes: Calm Eyes: Yes: Conjunctiva Clear HENT: Yes: Atraumatic Cardiovascular: Yes: S1, S2 Respiratory: Yes: CTA Bilaterally Gastrointestinal: Yes: Soft Genitourinary: Yes: Incontinence Edema: No Wound/Incision: Yes: Other (oozing from wound) Labs: CBC, BMP 04/23/18 12:45 04/21/18 06:15 INR, PTT INR 1.20 (0.83-1.09) H 03/28/18 22:22 Problem List - Problems (1) Diabetes Code(s): E11.9 - TYPE 2 DIABETES MELLITUS WITHOUT COMPLICATIONS Qualifiers: 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 type: type 1 Diabetes mellitus complication status: with circulatory complication (2) ESRD (end stage renal disease) on dialysis Code(s): N18.6 - END STAGE RENAL DISEASE; Z99.2 - DEPENDENCE ON RENAL DIALYSIS (3) Syncope Code(s): R55 - SYNCOPE AND COLLAPSE (4) Anemia Code(s): D64.9 - ANEMIA, UNSPECIFIED Assessment/Plan Current Medications Generic Name Dose Route Start Last Admin Trade Name Freq PRN Reason Stop Dose Admin Acetaminophen 650 mg 04/22/18 19:12 Tylenol - PO Q6H PRN PAIN LEVEL 1-5 Artificial Tears 1 drop 04/22/18 19:12 Artificial Tears OU Q12H PRN DRY EYES Atorvastatin Calcium 40 mg 04/22/18 22:00 04/22/18 22:34 Lipitor - PO 40 mg HS ROSIE Administration Calcium Acetate 667 mg 04/23/18 08:00 04/23/18 13:23 Phoslo - PO 667 mg TIDCM [facility]IE Administration Carvedilol 12.5 mg 04/22/18 22:00 04/23/18 11:01 Coreg - PO Not Given BID [facility]IE Citalopram Hydrobromide 20 mg 04/23/18 10:00 04/23/18 10:50 Celexa - PO 20 mg DAILY [facility] Administration Collagenase 1 applic 04/23/18 10:00 Santyl - TP DAILY [facility]IE Protocol Divalproex Sodium 125 mg 04/22/18 22:00 04/23/18 10:51 Depakote - PO 125 mg BID [facility]IE Administration Docusate Sodium 300 mg 04/22/18 22:00 04/22/18 22:33 Colace - PO 300 mg HS ROSIE Administration Folic Acid 1 mg 04/23/18 10:00 04/23/18 10:51 Folic Acid - PO 1 mg DAILY [facility] Administration Gabapentin 100 mg 04/23/18 22:00 Neurontin - PO BID [facility] Haloperidol 2 mg 04/22/18 22:00 04/22/18 22:38 Haldol - PO 2 mg HS [facility]IE Administration Piperacillin Sod/Tazobactam 50 mls @ 100 mls/hr 04/23/18 02:00 04/23/18 10:52 Sod 2.25 gm/ Dextrose IVPB 100 mls/hr Q8H-IV [facility]IE Administration Protocol Insulin Aspart 1 vial 04/22/18 22:00 04/23/18 13:24 Novolog Vial Sliding Scale - SQ 2 units ACHS ROSIE Administration Protocol Insulin Detemir 10 units 04/22/18 22:00 04/22/18 22:49 Levemir Vial SQ 10 units HS [facility] Administration Mirtazapine 7.5 mg 04/22/18 22:00 04/22/18 22:34 Remeron - PO 7.5 mg HS [facility]IE Administration Multi-Ingredient Ointment 1 gm 04/23/18 10:00 Zinc Oxide 20% Topical Oint TP DAILY [facility] Multivitamins 1 each 04/23/18 10:00 04/23/18 10:51 Total B With C - PO 1 each DAILY [facility] Administration Ondansetron HCl 4 mg 04/22/18 19:12 Zofran Injection IVPUSH Q6H PRN NAUSEA AND/OR VOMITING Ranitidine HCl 150 mg 04/23/18 10:00 04/23/18 10:50 Zantac - PO 150 mg DAILY [facility] Administration Tamsulosin HCl 0.4 mg 04/22/18 22:00 04/22/18 22:37 Flomax - PO 0.4 mg HS [facility]IE Administration Impression 1. ESRD 2. anemia 3. HTN 4. Chol 5. DM 6. BPH 7. CAD 8. hypoglycemia 9. CHF 10. syncope 11. depression 12. PVD Plan - HD in am - ok to transfuse prbc - surgery tomorrow for amputation - discussed with family - discussed with primary team - monitor blood sugar - psych eval - cont wound care - cont epogen for anemia - renal diet Dr Donovan
--- NOTE | 2018-04-23 17:18 | PN ---
Progress Note (short form) - Note Progress Note: Surgery Asked by Dr Schofield to place wound vac on patient's left heel Left heel wound grade three with no exposed bone or structures. bleeding wound bed with clean margins. Vac placed and suction set to 100, however unable to test as vac housing not working. awaiting new vac unit, nursing to test vac function. Right heel dressing in tact, plan for OR tomorrow for Amp (TMA Vs. BKA) surgery to follow.
[2018-04-23] MEDS: COLLAGENASE CLOSTRIDIUM HIST. 30 GRAMS TUBE TP SCH (17:30)
[2018-04-23] MEDS: ZINC OXIDE 20% TOPICAL OINTMENT 454 GM JAR TP SCH (17:30)
[2018-04-23] MEDS: DOCUSATE SODIUM 100 MG CAPSULE (FP) PO SCH (21:09)
[2018-04-23] MEDS: TAMSULOSIN HCL 0.4 MG CAP.ER.24H (FP) PO SCH (21:09)
[2018-04-23] MEDS: ATORVASTATIN CA 40 MG TABLET (FP) PO SCH (21:10)
[2018-04-23] MEDS: MIRTAZAPINE 15 MG TABLET (FP) PO SCH (21:10)
[2018-04-23] MEDS: INSULIN (LEVEMIR) 100 UNITS/ML UNITS SQ SCH (21:11)
[2018-04-23] MEDS: HALOPERIDOL 1 MG TABLET (FP) PO SCH (21:11)
[2018-04-24] MEDS ORDERED: PIPERACILLIN/TAZOBACTAM 2.25 GM VIAL IVPB ONE ×3 (02:25→16:53)
[2018-04-24] MEDS ORDERED: DEXTROSE 5%-WATER - 50 ML IVPB ONE ×3 (02:25→16:53)
[2018-04-24] MEDS: PIPERACILLIN/TAZOB 2.25 GM 2.25 GM in DEXTROSE 5%-WATER - 50 ML IVPB SCH ×3 (02:32→17:08)
[2018-04-24] MEDS: INSULIN SLIDING SCALE (NOVOLOG) 1 VIAL SQ SCH ×4 (06:21→21:17)
[2018-04-24 08:20] LABS: HEMATOCRIT 24.6 % (35.4-49); HEMOGLOBIN 8.4 GM/dL (11.7-16.9); MCH 32.4 pg (25.7-33.7); MCHC 34.3 g/dl (32.0-35.9); MEAN CELL VOLUME 94.4 fl (80-96); MEAN PLT VOLUME 6.7 fl (7.5-11.1); PLATELET COUNT 301 K/MM3 (134-434); RBC 2.61 M/mm3 (4.00-5.60); WHITE BLOOD COUNT 9.5 K/mm3 (4.0-10.0)
[2018-04-24] MEDS ORDERED: SODIUM CHLORIDE 250 ML IV PRN (08:20)
[2018-04-24] MEDS: CALCIUM ACETATE 667 MG CAPSULE (FP) PO SCH ×3 (08:54→17:08)
[2018-04-24 10:00] LABS: ANION GAP 9 MMOL/L (8-16); BLOOD UREA NITROGEN 70 mg/dL (7-18); CALCIUM 7.7 mg/dL (8.5-10.1); CHLORIDE 100 mmol/L (98-107); CO2 31 mmol/L (21-32); CREATININE 6.9 mg/dL (0.55-1.3); GLUCOSE,RANDOM 214 mg/dL (74-106); POTASSIUM 4.3 mmol/L (3.5-5.1); SGOT/AST 20 U/L (15-37); SGPT/ALT 23 U/L (13-61); SODIUM 140 mmol/L (136-145)
[2018-04-24] MEDS ORDERED: EPOETIN ALFA 10,000 UNIT, EPOETIN ALFA 2,000 UNIT IVPUSH ONE ×2 (10:00→11:00)
[2018-04-24 10:01] LABS: ALK PHOS 80 U/L (45-117); BILIRUBIN,TOTAL 0.5 mg/dL (0.2-1); TOT PROT 6.2 g/dl (6.4-8.2)
--- NOTE | 2018-04-24 11:32 | PN ---
Progress Note (short form) - Note Progress Note: - Note Progress Note: Patient seen and examined s/p debridement surgery cancelled today pt in dialysis received one unit PRBC yesterday spoke with RN Vital Signs - 24 hr 04/23/18 04/23/18 04/23/18 15:00 18:26 21:00 Temperature 98.2 F 97.7 F Pulse Rate 65 63 Respiratory 18 18 Rate Blood Pressure 122/49 122/60 O2 Sat by Pulse 98 Oximetry (%) 04/23/18 04/24/18 04/24/18 22:00 05:27 07:25 Temperature 99.3 F 99 F 99 F Pulse Rate 67 63 69 Respiratory 16 16 18 Rate Blood Pressure 130/54 137/56 132/60 O2 Sat by Pulse Oximetry (%) 04/24/18 04/24/18 04/24/18 07:30 08:00 08:30 Temperature Pulse Rate 63 60 63 Respiratory 18 18 18 Rate Blood Pressure 130/57 140/58 152/53 O2 Sat by Pulse Oximetry (%) 04/24/18 04/24/18 04/24/18 09:00 09:30 10:00 Temperature Pulse Rate 63 65 61 Respiratory 18 18 18 Rate Blood Pressure 150/62 149/56 130/52 O2 Sat by Pulse Oximetry (%) 04/24/18 04/24/18 04/24/18 10:30 11:00 11:29 Temperature Pulse Rate 60 61 64 Respiratory 18 18 18 Rate Blood Pressure 138/57 132/52 130/69 O2 Sat by Pulse Oximetry (%) Current Medications Generic Name Dose Route Start Last Admin Trade Name Freq PRN Reason Stop Dose Admin Acetaminophen 650 mg 04/22/18 19:12 Tylenol - PO Q6H PRN PAIN LEVEL 1-5 Artificial Tears 1 drop 04/22/18 19:12 Artificial Tears OU Q12H PRN DRY EYES Atorvastatin Calcium 40 mg 04/22/18 22:00 04/23/18 21:10 Lipitor - PO 40 mg HS ROSIE Administration Calcium Acetate 667 mg 04/23/18 08:00 04/24/18 08:54 Phoslo - PO Not Given TIDCM ROSIE Carvedilol 12.5 mg 04/22/18 22:00 04/23/18 21:09 Coreg - PO 12.5 mg BID ROSIE Administration Citalopram Hydrobromide 20 mg 04/23/18 10:00 04/23/18 10:50 Celexa - PO 20 mg DAILY ROSIE Administration Collagenase 1 applic 04/23/18 10:00 04/23/18 17:30 Santyl - TP Not Given DAILY ROSIE Protocol Divalproex Sodium 125 mg 04/22/18 22:00 04/23/18 22:31 Depakote - PO 125 mg BID ROSIE Administration Docusate Sodium 300 mg 04/22/18 22:00 04/23/18 21:09 Colace - PO 300 mg HS ROSIE Administration Folic Acid 1 mg 04/23/18 10:00 04/23/18 10:51 Folic Acid - PO 1 mg DAILY ROSIE Administration Gabapentin 100 mg 04/23/18 22:00 04/23/18 21:09 Neurontin - PO 100 mg BID ROSIE Administration Haloperidol 2 mg 04/22/18 22:00 04/23/18 21:11 Haldol - PO 2 mg HS ROSIE Administration Piperacillin Sod/Tazobactam 50 mls @ 100 mls/hr 04/23/18 02:00 04/24/18 02:32 Sod 2.25 gm/ Dextrose IVPB 100 mls/hr Q8H-IV ROSIE Administration Protocol Insulin Aspart 1 vial 04/22/18 22:00 04/24/18 06:21 Novolog Vial Sliding Scale - SQ Not Given ACHS [facility] Protocol Insulin Detemir 10 units 04/22/18 22:00 04/23/18 21:11 Levemir Vial SQ 10 units HS ROSIE Administration Mirtazapine 7.5 mg 04/22/18 22:00 04/23/18 21:10 Remeron - PO 7.5 mg HS ROSIE Administration Multi-Ingredient Ointment 1 gm 04/23/18 10:00 04/23/18 17:30 Zinc Oxide 20% Topical Oint TP 1 applic DAILY ROSIE Administration Multivitamins 1 each 04/23/18 10:00 04/23/18 10:51 Total B With C - PO 1 each DAILY ROSIE Administration Ondansetron HCl 4 mg 04/22/18 19:12 Zofran Injection IVPUSH Q6H PRN NAUSEA AND/OR VOMITING Ranitidine HCl 150 mg 04/23/18 10:00 04/23/18 10:50 Zantac - PO 150 mg DAILY ROSIE Administration Tamsulosin HCl 0.4 mg 04/22/18 22:00 04/23/18 21:09 Flomax - PO 0.4 mg HS ROSIE Administration Laboratory Results - last 24 hr 04/22/18 04/23/18 04/23/18 23:30 11:42 12:45 WBC 7.8 RBC 2.39 L Hgb 7.6 L Hct 23.0 L MCV 96.2 H MCH 32.0 MCHC 33.2 RDW 16.9 H Plt Count 312 MPV 6.4 L Sodium Potassium Chloride Carbon Dioxide Anion Gap BUN Creatinine Creat Clearance w eGFR POC Glucometer 215 Random Glucose Calcium Total Bilirubin AST ALT Alkaline Phosphatase Total Protein Albumin Blood Type Antibody Screen Crossmatch See Detail 04/23/18 04/23/18 04/23/18 16:50 19:30 21:07 WBC RBC Hgb Hct MCV MCH MCHC RDW Plt Count MPV Sodium Potassium Chloride Carbon Dioxide Anion Gap BUN Creatinine Creat Clearance w eGFR POC Glucometer 317 353 Random Glucose Calcium Total Bilirubin AST ALT Alkaline Phosphatase Total Protein Albumin Blood Type B POSITIVE Antibody Screen Negative Crossmatch See Detail 04/24/18 04/24/18 04/24/18 06:10 07:30 07:30 WBC 9.5 RBC 2.61 L Hgb 8.4 L Hct 24.6 L MCV 94.4 MCH 32.4 MCHC 34.3 RDW 17.0 H Plt Count 301 MPV 6.7 L Sodium 140 Potassium 4.3 Chloride 100 Carbon Dioxide 31 Anion Gap 9 BUN 70 H Creatinine 6.9 H Creat Clearance w eGFR 7.91 POC Glucometer 263 Random Glucose 214 H Calcium 7.7 L Total Bilirubin 0.5 AST 20 ALT 23 Alkaline Phosphatase 80 Total Protein 6.2 L Albumin 2.0 L Blood Type Antibody Screen Crossmatch exam- Constitutional: Yes: No Distress, Comfortable. Neck: Yes: Supple. no jvd Cardiovascular: Yes: Regular Rate and Rhythm Respiratory: Yes: Diminished Gastrointestinal: Yes: Soft/ non tender Edema: No Wound/Incision: Yes: Bilateral heel ulcers -legs are warm , feet feel cool Neurological: Yes: Alert Psychiatric: Yes: Alert,calm Assessment/Plan drowsy Continue present care abx-- Zosyn bone scan-ve Arterial doppler-- Atherosclerotic disease surgery cancelled today ASA and plavix on hold DC fluids s/p PRBC iv antibiotics Problem List - Problems (1) Diabetes Code(s): E11.9 - TYPE 2 DIABETES MELLITUS WITHOUT COMPLICATIONS Qualifiers: Diabetes mellitus type: type 1 Diabetes mellitus complication status: with circulatory complication (2) ESRD (end stage renal disease) on dialysis Code(s): N18.6 - END STAGE RENAL DISEASE; Z99.2 - DEPENDENCE ON RENAL DIALYSIS (3) Infected pressure ulcer Code(s): L89.90 - PRESSURE ULCER OF UNSPECIFIED SITE, UNSPECIFIED STAGE; L08.9 - LOCAL INFECTION OF THE SKIN AND SUBCUTANEOUS TISSUE, UNSP (4) Syncope Code(s): R55 - SYNCOPE AND COLLAPSE (5) Acute metabolic encephalopathy due to hypoglycemia Code(s): G93.41 - METABOLIC ENCEPHALOPATHY; E16.2 - HYPOGLYCEMIA, UNSPECIFIED (6) Anemia Code(s): D64.9 - ANEMIA, UNSPECIFIED (7) CAD (coronary artery disease) Code(s): I25.10 - ATHSCL HEART DISEASE OF [place] CORONARY ARTERY W/O ANG PCTRS (8) ESRD (end stage renal disease) on dialysis Code(s): N18.6 - END STAGE RENAL DISEASE; Z99.2 - DEPENDENCE ON RENAL DIALYSIS
--- NOTE | 2018-04-24 12:03 | PN ---
Progress Note, Physician History of Present Illness: Pt seen and examined at bedside. He is currently getting HD. He denies shortness of breath. - Current Medication List Current Medications: Active Medications Acetaminophen (Tylenol -) 650 mg PO Q6H PRN PRN Reason: PAIN LEVEL 1-5 Artificial Tears (Artificial Tears) 1 drop OU Q12H PRN PRN Reason: DRY EYES Atorvastatin Calcium (Lipitor -) 40 mg PO HS [facility] Last Admin: 04/23/18 21:10 Dose: 40 mg Calcium Acetate (Phoslo -) 667 mg PO TIDCM [facility] Last Admin: 04/24/18 08:54 Dose: Not Given Carvedilol (Coreg -) 12.5 mg PO BID [facility] Last Admin: 04/23/18 21:09 Dose: 12.5 mg Citalopram Hydrobromide (Celexa -) 20 mg PO DAILY [facility] Last Admin: 04/23/18 10:50 Dose: 20 mg Collagenase (Santyl -) 1 applic TP DAILY [facility]; Protocol Last Admin: 04/23/18 17:30 Dose: Not Given Divalproex Sodium (Depakote -) 125 mg PO BID [facility] Last Admin: 04/23/18 22:31 Dose: 125 mg Docusate Sodium (Colace -) 300 mg PO HS [facility] Last Admin: 04/23/18 21:09 Dose: 300 mg Folic Acid (Folic Acid -) 1 mg PO DAILY [facility] Last Admin: 04/23/18 10:51 Dose: 1 mg Gabapentin (Neurontin -) 100 mg PO BID [facility] Last Admin: 04/23/18 21:09 Dose: 100 mg Haloperidol (Haldol -) 2 mg PO [facility] Last Admin: 04/23/18 21:11 Dose: 2 mg Piperacillin Sod/Tazobactam (Sod 2.25 gm/ Dextrose) 50 mls @ 100 mls/hr IVPB Q8H-IV [facility]; Protocol Last Admin: 04/24/18 02:32 Dose: 100 mls/hr Insulin Aspart (Novolog Vial Sliding Scale -) 1 vial SQ [facility]; Protocol Last Admin: 04/24/18 06:21 Dose: Not Given Insulin Detemir (Levemir Vial) 10 units SQ [facility] Last Admin: 04/23/18 21:11 Dose: 10 units Mirtazapine (Remeron -) 7.5 mg PO [facility] Last Admin: 04/23/18 21:10 Dose: 7.5 mg Multi-Ingredient Ointment (Zinc Oxide 20% Topical Oint) 1 gm TP DAILY [facility] Last Admin: 04/23/18 17:30 Dose: 1 applic Multivitamins (Total B With C -) 1 each PO DAILY [facility] Last Admin: 04/23/18 10:51 Dose: 1 each Ondansetron HCl (Zofran Injection) 4 mg IVPUSH Q6H PRN PRN Reason: NAUSEA AND/OR VOMITING Ranitidine HCl (Zantac -) 150 mg PO DAILY [facility] Last Admin: 04/23/18 10:50 Dose: 150 mg Tamsulosin HCl (Flomax -) 0.4 mg PO [facility] Last Admin: 04/23/18 21:09 Dose: 0.4 mg - Objective Vital Signs: Vital Signs Temperature 99 F 04/24/18 07:25 Pulse Rate 64 04/24/18 11:29 Respiratory Rate 18 04/24/18 11:29 Blood Pressure 130/69 04/24/18 11:29 O2 Sat by Pulse Oximetry (%) 98 04/23/18 21:00 Constitutional: Yes: Calm Eyes: Yes: Conjunctiva Clear HENT: Yes: Atraumatic Cardiovascular: Yes: S1, S2 Respiratory: Yes: CTA Bilaterally Gastrointestinal: Yes: Soft Genitourinary: Yes: Incontinence Edema: No Wound/Incision: Yes: Dressing Dry and Intact Labs: CBC, BMP 04/24/18 07:30 04/24/18 07:30 INR, PTT INR 1.20 (0.83-1.09) H 03/28/18 22:22 Problem List - Problems (1) Diabetes Code(s): E11.9 - TYPE 2 DIABETES MELLITUS WITHOUT COMPLICATIONS Qualifiers: Diabetes mellitus type: type 1 Diabetes mellitus complication status: with circulatory complication (2) ESRD (end stage renal disease) on dialysis Code(s): N18.6 - END STAGE RENAL DISEASE; Z99.2 - DEPENDENCE ON RENAL DIALYSIS (3) Syncope Code(s): R55 - SYNCOPE AND COLLAPSE (4) Anemia Code(s): D64.9 - ANEMIA, UNSPECIFIED Assessment/Plan Current Medications Generic Name Dose Route Start Last Admin Trade Name Freq PRN Reason Stop Dose Admin Acetaminophen 650 mg 04/22/18 19:12 Tylenol - PO Q6H PRN PAIN LEVEL 1-5 Artificial Tears 1 drop 04/22/18 19:12 Artificial Tears OU Q12H PRN DRY EYES Atorvastatin Calcium 40 mg 04/22/18 22:00 04/23/18 21:10 Lipitor - PO 40 mg HS ROSIE Administration Calcium Acetate 667 mg 04/23/18 08:00 04/24/18 08:54 Phoslo - PO Not Given TIDCM ROSIE Carvedilol 12.5 mg 04/22/18 22:00 04/23/18 21:09 Coreg - PO 12.5 mg BID ROSIE Administration Citalopram Hydrobromide 20 mg 04/23/18 10:00 04/23/18 10:50 Celexa - PO 20 mg DAILY ROSIE Administration Collagenase 1 applic 04/23/18 10:00 04/23/18 17:30 Santyl - TP Not Given DAILY [facility] Protocol Divalproex Sodium 125 mg 04/22/18 22:00 04/23/18 22:31 Depakote - PO 125 mg BID [facility]IE Administration Docusate Sodium 300 mg 04/22/18 22:00 04/23/18 21:09 Colace - PO 300 mg HS ROSIE Administration Folic Acid 1 mg 04/23/18 10:00 04/23/18 10:51 Folic Acid - PO 1 mg DAILY ROSIE Administration Gabapentin 100 mg 04/23/18 22:00 04/23/18 21:09 Neurontin - PO 100 mg BID ROSIE Administration Haloperidol 2 mg 04/22/18 22:00 04/23/18 21:11 Haldol - PO 2 mg HS ROSIE Administration Piperacillin Sod/Tazobactam 50 mls @ 100 mls/hr 04/23/18 02:00 04/24/18 02:32 Sod 2.25 gm/ Dextrose IVPB 100 mls/hr Q8H-IV ROSIE Administration Protocol Insulin Aspart 1 vial 04/22/18 22:00 04/24/18 06:21 Novolog Vial Sliding Scale - SQ Not Given ACHS [facility] Protocol Insulin Detemir 10 units 04/22/18 22:00 04/23/18 21:11 Levemir Vial SQ 10 units HS ROSIE Administration Mirtazapine 7.5 mg 04/22/18 22:00 04/23/18 21:10 Remeron - PO 7.5 mg HS ROSIE Administration Multi-Ingredient Ointment 1 gm 04/23/18 10:00 04/23/18 17:30 Zinc Oxide 20% Topical Oint TP 1 applic DAILY ROSIE Administration Multivitamins 1 each 04/23/18 10:00 04/23/18 10:51 Total B With C - PO 1 each DAILY [facility]IE Administration Ondansetron HCl 4 mg 04/22/18 19:12 Zofran Injection IVPUSH Q6H PRN NAUSEA AND/OR VOMITING Ranitidine HCl 150 mg 04/23/18 10:00 04/23/18 10:50 Zantac - PO 150 mg DAILY ROSIE Administration Tamsulosin HCl 0.4 mg 04/22/18 22:00 04/23/18 21:09 Flomax - PO 0.4 mg HS ROSIE Administration Impression 1. ESRD 2. anemia 3. HTN 4. Chol 5. DM 6. BPH 7. CAD 8. hypoglycemia 9. CHF 10. syncope 11. depression 12. PVD Plan - HD today - epogen for anemia - pt going to OR today - monitor blood sugar - psych eval - cont wound care - renal diet Dr Donovan
[2018-04-24] MEDS ORDERED: PT OWN MED DRAWER 7, Y5N ONE (13:04)
[2018-04-24] MEDS: CITALOPRAM HYDROBROMIDE 20 MG TABLET (FP) PO SCH (13:10)
[2018-04-24] MEDS: RANITIDINE HCL 150 MG TABLET (FP) PO SCH (13:10)
[2018-04-24] MEDS: CARVEDILOL 12.5 MG TABLET (FP) PO SCH ×2 (13:11→21:16)
[2018-04-24] MEDS: VITAMIN B COMPLEX W/C COMBO TABLET (FP) PO SCH (13:11)
[2018-04-24] MEDS: FOLIC ACID 1 MG TABLET (FP) PO SCH (13:11)
[2018-04-24] MEDS: GABAPENTIN 100 MG CAPSULE (FP) PO SCH ×2 (13:11→21:16)
[2018-04-24] MEDS: ZINC OXIDE 20% TOPICAL OINTMENT 454 GM JAR TP SCH (13:12)
[2018-04-24] MEDS: DIVALPROEX SODIUM 125 MG TABLET E.C. PO SCH ×2 (13:12→21:16)
[2018-04-24] MEDS: COLLAGENASE CLOSTRIDIUM HIST. 30 GRAMS TUBE TP SCH (13:12)
[2018-04-24] MEDS: ACETAMINOPHEN 325 MG TABLET (FP) PO PRN (14:45)
--- NOTE | 2018-04-24 16:12 | PATH ---
Surgical Pathology Report Patient Name: WILLA FRANCIS Med. Rec. #: [id number] /Age/Gender: 1945 (Age: 72) / M Account: [id number] Location: [facility] MED/SURG Taken: 04/20/2018 Received: 04/23/2018 Reported: 04/24/2018 Physicians: Connor Milner M.D. Specimen(s) Received NECROTIC TISSUE BILATERAL HEELS Clinical History Necrotic heels bilateral Final Diagnosis NECROTIC TISSUE, BILATERAL HEELS, DEBRIDEMENT: SOFT TISSUE WITH MARKED ACUTE AND CHRONIC NECROTIZING INFLAMMATION. Electronically Signed Erin Zavaleta M.D. Gross Description Received in formalin labeled "necrotic tissue bilateral heels," is a 10.0 x 9.0 x 2.5 cm aggregate of multiple unoriented portions of necrotic skin and soft tissue. Bead Worker Sewing sections are submitted in one cassette. /04/23/2018 saudi04/23/2018
--- NOTE | 2018-04-24 16:38 | PN ---
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 Denies chest pain or dyspnea. - Current Medication List Current Medications: Active Medications Acetaminophen (Tylenol -) 650 mg PO Q6H PRN PRN Reason: PAIN LEVEL 1-5 Last Admin: 04/24/18 14:45 Dose: 650 mg Artificial Tears (Artificial Tears) 1 drop OU Q12H PRN PRN Reason: DRY EYES Atorvastatin Calcium (Lipitor -) 40 mg PO HS [facility] Last Admin: 04/23/18 21:10 Dose: 40 mg Calcium Acetate (Phoslo -) 667 mg PO TIDCM [facility] Last Admin: 04/24/18 13:11 Dose: 667 mg Carvedilol (Coreg -) 12.5 mg PO BID [facility] Last Admin: 04/24/18 13:11 Dose: 12.5 mg Citalopram Hydrobromide (Celexa -) 20 mg PO DAILY [facility] Last Admin: 04/24/18 13:10 Dose: 20 mg Collagenase (Santyl -) 1 applic TP DAILY [facility]; Protocol Last Admin: 04/24/18 13:12 Dose: 1 applic Divalproex Sodium (Depakote -) 125 mg PO BID [facility] Last Admin: 04/24/18 13:12 Dose: 125 mg Docusate Sodium (Colace -) 300 mg PO HS [facility] Last Admin: 04/23/18 21:09 Dose: 300 mg Folic Acid (Folic Acid -) 1 mg PO DAILY [facility] Last Admin: 04/24/18 13:11 Dose: 1 mg Gabapentin (Neurontin -) 100 mg PO BID [facility] Last Admin: 04/24/18 13:11 Dose: 100 mg Haloperidol (Haldol -) 2 mg PO HS [facility] Last Admin: 04/23/18 21:11 Dose: 2 mg Piperacillin Sod/Tazobactam (Sod 2.25 gm/ Dextrose) 50 mls @ 100 mls/hr IVPB Q8H-IV [facility]; Protocol Last Admin: 04/24/18 13:10 Dose: 100 mls/hr Insulin Aspart (Novolog Vial Sliding Scale -) 1 vial SQ [facility]; Protocol Last Admin: 04/24/18 13:13 Dose: Not Given Insulin Detemir (Levemir Vial) 10 units SQ [facility] Last Admin: 04/23/18 21:11 Dose: 10 units Mirtazapine (Remeron -) 7.5 mg PO [facility] Last Admin: 04/23/18 21:10 Dose: 7.5 mg Multi-Ingredient Ointment (Zinc Oxide 20% Topical Oint) 1 gm TP DAILY [facility] Last Admin: 04/24/18 13:12 Dose: 1 applic Multivitamins (Total B With C -) 1 each PO DAILY [facility] Last Admin: 04/24/18 13:11 Dose: 1 each Ondansetron HCl (Zofran Injection) 4 mg IVPUSH Q6H PRN PRN Reason: NAUSEA AND/OR VOMITING Ranitidine HCl (Zantac -) 150 mg PO DAILY [facility] Last Admin: 04/24/18 13:10 Dose: 150 mg Tamsulosin HCl (Flomax -) 0.4 mg PO [facility] Last Admin: 04/23/18 21:09 Dose: 0.4 mg - Objective Vital Signs: Vital Signs Temperature 97.9 F 04/24/18 14:58 Pulse Rate 70 04/24/18 14:58 Respiratory Rate 18 04/24/18 14:58 Blood Pressure 145/63 04/24/18 14:58 O2 Sat by Pulse Oximetry (%) 98 04/24/18 11:45 Constitutional: Yes: No Distress, Calm, Thin Neck: Yes: Supple Cardiovascular: Yes: Regular Rate and Rhythm Respiratory: Yes: Regular, Diminished Gastrointestinal: Yes: Normal Bowel Sounds, Soft Edema: No Wound/Incision: Yes: Dressing Dry and Intact Labs: CBC, BMP 04/24/18 07:30 04/24/18 07:30 INR, PTT INR 1.20 (0.83-1.09) H 03/28/18 22:22 Problem List - Problems (1) Pre-operative cardiovascular examination Code(s): Z01.810 - ENCOUNTER FOR PREPROCEDURAL CARDIOVASCULAR EXAMINATION (2) Diabetes Code(s): E11.9 - TYPE 2 DIABETES MELLITUS WITHOUT COMPLICATIONS Qualifiers: Diabetes mellitus type: type 1 Diabetes mellitus complication status: with circulatory complication (3) ESRD (end stage renal disease) on dialysis Code(s): N18.6 - END STAGE RENAL DISEASE; Z99.2 - DEPENDENCE ON RENAL DIALYSIS (4) Eschar of heel Code(s): R23.4 - CHANGES IN SKIN TEXTURE (5) CAD (coronary artery disease) Code(s): I25.10 - ATHSCL HEART DISEASE OF [place] CORONARY ARTERY W/O ANG PCTRS Qualifiers: Coronary Disease-Associated Artery/Lesion type: [place] artery [place] vs. transplanted heart: [place] heart Associated angina: without angina Qualified Code(s): I25.10 - Atherosclerotic heart disease of [place] coronary artery without angina pectoris (6) CHF (congestive heart failure) Code(s): I50.9 - HEART FAILURE, UNSPECIFIED (7) CAD (coronary artery disease) Code(s): I25.10 - ATHSCL HEART DISEASE OF [place] CORONARY ARTERY W/O ANG PCTRS Qualifiers: Coronary Disease-Associated Artery/Lesion type: [place] artery [place] vs. transplanted heart: [place] heart Associated angina: without angina Qualified Code(s): I25.10 - Atherosclerotic heart disease of [place] coronary artery without angina pectoris (8) HTN (hypertension) Code(s): I10 - ESSENTIAL (PRIMARY) HYPERTENSION Qualifiers: Hypertension type: essential hypertension Qualified Code(s): I10 - Essential (primary) hypertension (9) Hx of CABG Code(s): Z95.1 - PRESENCE OF AORTOCORONARY BYPASS GRAFT (10) Hypercholesterolemia Code(s): E78.00 - PURE HYPERCHOLESTEROLEMIA, UNSPECIFIED (11) PAD (peripheral artery disease) Code(s): I73.9 - PERIPHERAL VASCULAR DISEASE, UNSPECIFIED (12) S/P coronary artery stent placement Code(s): Z95.5 - PRESENCE OF CORONARY ANGIOPLASTY IMPLANT AND GRAFT Assessment/Plan 12/19/2017 Normal LV size with mild-mod decrease LV fxn, mild STEPHEN, mild TR, MR, can't exclude MV vegetation 1. PAD s/p LE bypass, heel wound (non healing) s/p angioplasty right posterior tibial artery, plan for right TMA vs BKA, left heel wound vac 2. HTN 3. Hypercholesterolemia 4. DM 5. Diastolic/Systolic LV dysfunction with class 0 NYHA classification LV failure 6. CAD s/p CABG, PCI/stent, demand ischemia 7. ESRD on HD 8. Anemia of CKD PLAN: 1. No absolute contraindication in proceeding with vascular intervention in view of absence of ischemic symptoms, decompensated congestive heart failure or malignant arrhythmias. 2. Continue Carvedilol 12.5 bid and Lipitor 40 qhs, ASA and Plavix held pre-op ( had wound ooze post-debridement treated with plt transfusion), will resume ASA 81 qd to minimize risk of very late stent thrombosis, resume Plavix once post- op hemostasis has been achieved, d/w vascular 3. Empiric antibiotic course and right TMA vs BKA as per vascular surgery 4. HD per renal 5. DVT and GI prophylaxis
[2018-04-24] MEDS ORDERED: EPOETIN ALFA 2,000 UNIT/1 ML VIAL IVPUSH ONE (16:45)
[2018-04-24] MEDS: ASPIRIN 81 MG CHEWABLE TABLETS PO SCH (17:08)
[2018-04-24] MEDS ORDERED: INSULIN (NOVOLOG) ASPART 100 UNITS/ML 10ML VIAL ONE (17:13)
--- NOTE | 2018-04-24 17:55 | PN ---
Progress Note (short form) - Note Progress Note: Patient with severe Dementia with aggressiove ulcers, notv resp[onding to conventional tratment. Continues to display acute aggresionj and other bnehavioral disturbances> Patient also gets very sedated on standing psych drugs where staff cant even feed him. Plan.1) D/c Haldol and reneron. 2) seroquel 50mg po bid prn.
[2018-04-24] MEDS: INSULIN (LEVEMIR) 100 UNITS/ML UNITS SQ SCH (21:16)
[2018-04-24] MEDS: DOCUSATE SODIUM 100 MG CAPSULE (FP) PO SCH (21:16)
[2018-04-24] MEDS: TAMSULOSIN HCL 0.4 MG CAP.ER.24H (FP) PO SCH (21:16)
[2018-04-24] MEDS: ATORVASTATIN CA 40 MG TABLET (FP) PO SCH (21:16)
[2018-04-24] MEDS: QUEtiapine FUMARATE 25 MG TABLET (FP) PO PRN (23:04)
[2018-04-25] MEDS ORDERED: DEXTROSE 5%-WATER - 50 ML IVPB ONE ×3 (02:05→17:17)
[2018-04-25] MEDS ORDERED: PIPERACILLIN/TAZOBACTAM 2.25 GM VIAL IVPB ONE ×3 (02:05→17:17)
[2018-04-25] MEDS: PIPERACILLIN/TAZOB 2.25 GM 2.25 GM in DEXTROSE 5%-WATER - 50 ML IVPB SCH ×4 (02:27→17:30)
[2018-04-25] MEDS: INSULIN SLIDING SCALE (NOVOLOG) 1 VIAL SQ SCH ×4 (06:21→23:08)
--- NOTE | 2018-04-25 08:56 | PN ---
Progress Note (short form) - Note Progress Note: Appears comfortable Afebrile Right heel necrotic tissue. Left heel VAC in place. WBC WNL Imp: Stable, no evidence for sepsis. Plan: Await consent for BKA. I spoke with patient's and she is not ready to sign for surgery yet. Problem List - Problems (1) PAD (peripheral artery disease) Code(s): I73.9 - PERIPHERAL VASCULAR DISEASE, UNSPECIFIED
[2018-04-25] MEDS ORDERED: PT OWN MED DRAWER 7, Y5N ONE (10:13)
[2018-04-25] MEDS: CALCIUM ACETATE 667 MG CAPSULE (FP) PO SCH ×3 (10:22→17:30)
--- NOTE | 2018-04-25 10:56 | PN ---
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 Denies chest pain or dyspnea. - Current Medication List Current Medications: Active Medications Acetaminophen (Tylenol -) 650 mg PO Q6H PRN PRN Reason: PAIN LEVEL 1-5 Last Admin: 04/24/18 14:45 Dose: 650 mg Artificial Tears (Artificial Tears) 1 drop OU Q12H PRN PRN Reason: DRY EYES Aspirin (Asa -) 81 mg PO DAILY [facility] Last Admin: 04/24/18 17:08 Dose: 81 mg Atorvastatin Calcium (Lipitor -) 40 mg PO HS [facility] Last Admin: 04/24/18 21:16 Dose: 40 mg Calcium Acetate (Phoslo -) 667 mg PO TIDCM [facility] Last Admin: 04/25/18 10:22 Dose: Not Given Carvedilol (Coreg -) 12.5 mg PO BID [facility] Last Admin: 04/24/18 21:16 Dose: 12.5 mg Citalopram Hydrobromide (Celexa -) 20 mg PO DAILY [facility] Last Admin: 04/24/18 13:10 Dose: 20 mg Collagenase (Santyl -) 1 applic TP DAILY [facility]; Protocol Last Admin: 04/24/18 13:12 Dose: 1 applic Divalproex Sodium (Depakote -) 125 mg PO BID [facility] Last Admin: 04/24/18 21:16 Dose: 125 mg Docusate Sodium (Colace -) 300 mg PO HS [facility] Last Admin: 04/24/18 21:16 Dose: 300 mg Folic Acid (Folic Acid -) 1 mg PO DAILY [facility] Last Admin: 04/24/18 13:11 Dose: 1 mg Gabapentin (Neurontin -) 100 mg PO BID [facility] Last Admin: 04/24/18 21:16 Dose: 100 mg Piperacillin Sod/Tazobactam (Sod 2.25 gm/ Dextrose) 50 mls @ 100 mls/hr IVPB Q8H-IV [facility]; Protocol Last Admin: 04/25/18 10:50 Dose: 100 mls/hr Insulin Aspart (Novolog Vial Sliding Scale -) 1 vial SQ [facility]; Protocol Last Admin: 04/25/18 06:21 Dose: Not Given Insulin Detemir (Levemir Vial) 10 units SQ [facility] Last Admin: 04/24/18 21:16 Dose: 10 units Multi-Ingredient Ointment (Zinc Oxide 20% Topical Oint) 1 gm TP DAILY [facility] Last Admin: 04/24/18 13:12 Dose: 1 applic Multivitamins (Total B With C -) 1 each PO DAILY [facility] Last Admin: 04/24/18 13:11 Dose: 1 each Ondansetron HCl (Zofran Injection) 4 mg IVPUSH Q6H PRN PRN Reason: NAUSEA AND/OR VOMITING Quetiapine Fumarate (Seroquel -) 50 mg PO Q12H PRN PRN Reason: AGITATION Last Admin: 04/24/18 23:04 Dose: 50 mg Ranitidine HCl (Zantac -) 150 mg PO DAILY [facility] Last Admin: 04/24/18 13:10 Dose: 150 mg Tamsulosin HCl (Flomax -) 0.4 mg PO HS [facility] Last Admin: 04/24/18 21:16 Dose: 0.4 mg - Objective Vital Signs: Vital Signs Temperature 97.6 F 04/25/18 06:00 Pulse Rate 62 04/25/18 06:00 Respiratory Rate 20 04/25/18 09:00 Blood Pressure 138/55 04/25/18 06:00 O2 Sat by Pulse Oximetry (%) 98 04/24/18 21:00 Constitutional: Yes: No Distress, Calm, Thin Neck: Yes: Supple Cardiovascular: Yes: Regular Rate and Rhythm Respiratory: Yes: Regular, Diminished Gastrointestinal: Yes: Normal Bowel Sounds, Soft Extremities: Yes: Other (Left wound vac in place) Edema: No Wound/Incision: Yes: Dressing Dry and Intact Labs: CBC, BMP 04/24/18 07:30 04/24/18 07:30 INR, PTT INR 1.20 (0.83-1.09) H 03/28/18 22:22 Problem List - Problems (1) Pre-operative cardiovascular examination Code(s): Z01.810 - ENCOUNTER FOR PREPROCEDURAL CARDIOVASCULAR EXAMINATION (2) Diabetes Code(s): E11.9 - TYPE 2 DIABETES MELLITUS WITHOUT COMPLICATIONS Qualifiers: Diabetes mellitus type: type 1 Diabetes mellitus complication status: with circulatory complication (3) ESRD (end stage renal disease) on dialysis Code(s): N18.6 - END STAGE RENAL DISEASE; Z99.2 - DEPENDENCE ON RENAL DIALYSIS (4) Eschar of heel Code(s): R23.4 - CHANGES IN SKIN TEXTURE (5) CAD (coronary artery disease) Code(s): I25.10 - ATHSCL HEART DISEASE OF [place] CORONARY ARTERY W/O ANG PCTRS Qualifiers: Coronary Disease-Associated Artery/Lesion type: [place] artery [place] vs. transplanted heart: [place] heart Associated angina: without angina Qualified Code(s): I25.10 - Atherosclerotic heart disease of [place] coronary artery without angina pectoris (6) CHF (congestive heart failure) Code(s): I50.9 - HEART FAILURE, UNSPECIFIED (7) CAD (coronary artery disease) Code(s): I25.10 - ATHSCL HEART DISEASE OF [place] CORONARY ARTERY W/O ANG PCTRS Qualifiers: Coronary Disease-Associated Artery/Lesion type: [place] artery [place] vs. transplanted heart: [place] heart Associated angina: without angina Qualified Code(s): I25.10 - Atherosclerotic heart disease of [place] coronary artery without angina pectoris (8) HTN (hypertension) Code(s): I10 - ESSENTIAL (PRIMARY) HYPERTENSION Qualifiers: Hypertension type: essential hypertension Qualified Code(s): I10 - Essential (primary) hypertension (9) Hx of CABG Code(s): Z95.1 - PRESENCE OF AORTOCORONARY BYPASS GRAFT (10) Hypercholesterolemia Code(s): E78.00 - PURE HYPERCHOLESTEROLEMIA, UNSPECIFIED (11) PAD (peripheral artery disease) Code(s): I73.9 - PERIPHERAL VASCULAR DISEASE, UNSPECIFIED (12) S/P coronary artery stent placement Code(s): Z95.5 - PRESENCE OF CORONARY ANGIOPLASTY IMPLANT AND GRAFT Assessment/Plan 12/19/2017 Normal LV size with mild-mod decrease LV fxn, mild STEPHEN, mild TR, MR, can't exclude MV vegetation 1. PAD s/p LE bypass, heel wound (non healing) s/p angioplasty right posterior tibial artery, plan for right TMA vs BKA, left heel wound vac 2. HTN 3. Hypercholesterolemia 4. DM 5. Diastolic/Systolic LV dysfunction with class 0 NYHA classification LV failure 6. CAD s/p CABG, PCI/stent, demand ischemia 7. ESRD on HD 8. Anemia of CKD PLAN: 1. No absolute contraindication in proceeding with vascular intervention in view of absence of ischemic symptoms, decompensated congestive heart failure or malignant arrhythmias. 2. Continue Carvedilol 12.5 bid and Lipitor 40 qhs, ASA and Plavix held pre-op ( had wound ooze post-debridement treated with plt transfusion), continue ASA 81 qd prei-op to minimize risk of very late stent thrombosis, resume Plavix once post-op hemostasis has been achieved, d/w vascular 3. Empiric antibiotic course and right BKA as per vascular surgery, awaiting consent 4. HD per renal 5. DVT and GI prophylaxis
[2018-04-25] MEDS: CARVEDILOL 12.5 MG TABLET (FP) PO SCH ×2 (11:06→22:35)
[2018-04-25] MEDS: ASPIRIN 81 MG CHEWABLE TABLETS PO SCH (11:06)
[2018-04-25] MEDS: FOLIC ACID 1 MG TABLET (FP) PO SCH (11:06)
[2018-04-25] MEDS: RANITIDINE HCL 150 MG TABLET (FP) PO SCH (11:06)
[2018-04-25] MEDS: GABAPENTIN 100 MG CAPSULE (FP) PO SCH ×2 (11:06→22:35)
[2018-04-25] MEDS: VITAMIN B COMPLEX W/C COMBO TABLET (FP) PO SCH (11:07)
[2018-04-25] MEDS: ACETAMINOPHEN 325 MG TABLET (FP) PO PRN (11:07)
[2018-04-25] MEDS: DIVALPROEX SODIUM 125 MG TABLET E.C. PO SCH ×2 (11:07→23:07)
[2018-04-25] MEDS: CITALOPRAM HYDROBROMIDE 20 MG TABLET (FP) PO SCH (11:07)
[2018-04-25] MEDS ORDERED: HALOPERIDOL 2 MG TABLET PO PRN (12:03)
[2018-04-25] MEDS: QUEtiapine FUMARATE 25 MG TABLET (FP) PO PRN (13:04)
--- NOTE | 2018-04-25 13:06 | PN ---
Progress Note (short form) - Note Progress Note: - Note Progress Note: Patient seen and examined spoke with at bedside and I explained to the pt about the amputation pt is aware but is not fully comprehensive-- he knows he has to "cut it off" Vital Signs - 24 hr 04/24/18 04/24/18 04/24/18 14:58 19:27 21:00 Temperature 97.9 F 98.7 F Pulse Rate 70 68 Respiratory 18 18 20 Rate Blood Pressure 145/63 135/66 O2 Sat by Pulse 98 Oximetry (%) 04/24/18 04/25/18 04/25/18 22:00 06:00 09:00 Temperature 98.3 F 97.6 F Pulse Rate 64 62 Respiratory 20 20 20 Rate Blood Pressure 140/51 138/55 O2 Sat by Pulse Oximetry (%) Current Medications Generic Name Dose Route Start Last Admin Trade Name Freq PRN Reason Stop Dose Admin Acetaminophen 650 mg 04/22/18 19:12 04/25/18 11:07 Tylenol - PO 650 mg Q6H PRN Administration PAIN LEVEL 1-5 Artificial Tears 1 drop 04/22/18 19:12 Artificial Tears OU Q12H PRN DRY EYES Aspirin 81 mg 04/24/18 17:00 04/25/18 11:06 Asa - PO 81 mg DAILY [facility] Administration Atorvastatin Calcium 40 mg 04/22/18 22:00 04/24/18 21:16 Lipitor - PO 40 mg HS [facility] Administration Calcium Acetate 667 mg 04/23/18 08:00 04/25/18 11:06 Phoslo - PO 667 mg TIDCM [facility] Administration Carvedilol 12.5 mg 04/22/18 22:00 04/25/18 11:06 Coreg - PO 12.5 mg BID [facility] Administration Citalopram Hydrobromide 20 mg 04/23/18 10:00 04/25/18 11:07 Celexa - PO 20 mg DAILY [facility] Administration Collagenase 1 applic 04/23/18 10:00 04/24/18 13:12 Santyl - TP 1 applic DAILY [facility] Administration Protocol Divalproex Sodium 125 mg 04/22/18 22:00 04/25/18 11:07 Depakote - PO 125 mg BID [facility] Administration Docusate Sodium 300 mg 04/22/18 22:00 04/24/18 21:16 Colace - PO 300 mg HS [facility] Administration Folic Acid 1 mg 04/23/18 10:00 04/25/18 11:06 Folic Acid - PO 1 mg DAILY [facility] Administration Gabapentin 100 mg 04/23/18 22:00 04/25/18 11:06 Neurontin - PO 100 mg BID [facility] Administration Haloperidol 2 mg 04/25/18 12:43 Haldol - PO TID PRN AGITATION Piperacillin Sod/Tazobactam 50 mls @ 100 mls/hr 04/23/18 02:00 04/25/18 10:50 Sod 2.25 gm/ Dextrose IVPB 100 mls/hr Q8H-IV [facility] Administration Protocol Insulin Aspart 1 vial 04/22/18 22:00 04/25/18 11:50 Novolog Vial Sliding Scale - SQ 2 units ACHS [facility] Administration Protocol Insulin Detemir 10 units 04/22/18 22:00 04/24/18 21:16 Levemir Vial SQ 10 units HS [facility] Administration Multi-Ingredient Ointment 1 gm 04/23/18 10:00 04/24/18 13:12 Zinc Oxide 20% Topical Oint TP 1 applic DAILY [facility] Administration Multivitamins 1 each 04/23/18 10:00 04/25/18 11:07 Total B With C - PO 1 each DAILY [facility] Administration Ondansetron HCl 4 mg 04/22/18 19:12 Zofran Injection IVPUSH Q6H PRN NAUSEA AND/OR VOMITING Quetiapine Fumarate 50 mg 04/24/18 17:51 04/25/18 13:04 Seroquel - PO 50 mg Q12H PRN Administration AGITATION Ranitidine HCl 150 mg 04/23/18 10:00 04/25/18 11:06 Zantac - PO 150 mg DAILY [facility] Administration Tamsulosin HCl 0.4 mg 04/22/18 22:00 04/24/18 21:16 Flomax - PO 0.4 mg HS [facility] Administration Laboratory Results - last 24 hr 04/24/18 04/24/18 04/25/18 17:11 21:12 06:19 POC Glucometer 317 255 138 04/25/18 11:39 POC Glucometer 219 exam- Constitutional: Yes: No Distress, Comfortable. Neck: Yes: Supple. no jvd Cardiovascular: Yes: Regular Rate and Rhythm Respiratory: Yes: Diminished Gastrointestinal: Yes: Soft/ non tender Edema: No Wound/Incision: Yes: Bilateral heel ulcers -legs are warm ,left - wound vac Neurological: Yes: Alert Psychiatric: Yes: Alert,calm Assessment/Plan drowsy Continue present care abx-- Zosyn bone scan-ve Arterial doppler-- Atherosclerotic disease is now agreeable to surgery - possible Sunday Psych eval; noted-- will give Haldol prn as he was very agitated this AM as per RN ASA and plavix on hold DC fluids s/p PRBC iv antibiotics Problem List - Problems (1) Diabetes Code(s): E11.9 - TYPE 2 DIABETES MELLITUS WITHOUT COMPLICATIONS Qualifiers: Diabetes mellitus type: type 1 Diabetes mellitus complication status: with circulatory complication (2) ESRD (end stage renal disease) on dialysis Code(s): N18.6 - END STAGE RENAL DISEASE; Z99.2 - DEPENDENCE ON RENAL DIALYSIS (3) Infected pressure ulcer Code(s): L89.90 - PRESSURE ULCER OF UNSPECIFIED SITE, UNSPECIFIED STAGE; L08.9 - LOCAL INFECTION OF THE SKIN AND SUBCUTANEOUS TISSUE, UNSP (4) Syncope Code(s): R55 - SYNCOPE AND COLLAPSE (5) Acute metabolic encephalopathy due to hypoglycemia Code(s): G93.41 - METABOLIC ENCEPHALOPATHY; E16.2 - HYPOGLYCEMIA, UNSPECIFIED (6) Anemia Code(s): D64.9 - ANEMIA, UNSPECIFIED (7) CAD (coronary artery disease) Code(s): I25.10 - ATHSCL HEART DISEASE OF [place] CORONARY ARTERY W/O ANG PCTRS (8) ESRD (end stage renal disease) on dialysis Code(s): N18.6 - END STAGE RENAL DISEASE; Z99.2 - DEPENDENCE ON RENAL DIALYSIS
[2018-04-25] MEDS: COLLAGENASE CLOSTRIDIUM HIST. 30 GRAMS TUBE TP SCH (13:11)
[2018-04-25] MEDS: ZINC OXIDE 20% TOPICAL OINTMENT 454 GM JAR TP SCH (13:11)
[2018-04-25] MEDS ORDERED: INSULIN (NOVOLOG) ASPART 100 UNITS/ML 10ML VIAL ONE (18:31)
[2018-04-25] MEDS ORDERED: SODIUM CHLORIDE 250 ML IV PRN (18:39)
--- NOTE | 2018-04-25 18:39 | PN ---
Progress Note, Physician History of Present Illness: Pt seen and examined at bedside. He did not go to surgery as family were having second thoughts about amputation. - Current Medication List Current Medications: Active Medications Acetaminophen (Tylenol -) 650 mg PO Q6H PRN PRN Reason: PAIN LEVEL 1-5 Last Admin: 04/25/18 11:07 Dose: 650 mg Artificial Tears (Artificial Tears) 1 drop OU Q12H PRN PRN Reason: DRY EYES Aspirin (Asa -) 81 mg PO DAILY [facility] [place] Last Admin: 04/25/18 11:06 Dose: 81 mg Atorvastatin Calcium (Lipitor -) 40 mg PO HS [facility] [place] Last Admin: 04/24/18 21:16 Dose: 40 mg Calcium Acetate (Phoslo -) 667 mg PO TIDCM [facility] [place] Last Admin: 04/25/18 17:30 Dose: 667 mg Carvedilol (Coreg -) 12.5 mg PO BID [facility] [place] Last Admin: 04/25/18 11:06 Dose: 12.5 mg Citalopram Hydrobromide (Celexa -) 20 mg PO DAILY [facility] Last Admin: 04/25/18 11:07 Dose: 20 mg Collagenase (Santyl -) 1 applic TP DAILY [facility]; Protocol Last Admin: 04/25/18 13:11 Dose: 1 applic Divalproex Sodium (Depakote -) 125 mg PO BID [facility] Last Admin: 04/25/18 11:07 Dose: 125 mg Docusate Sodium (Colace -) 300 mg PO HS [facility] Last Admin: 04/24/18 21:16 Dose: 300 mg Folic Acid (Folic Acid -) 1 mg PO DAILY [facility] Last Admin: 04/25/18 11:06 Dose: 1 mg Gabapentin (Neurontin -) 100 mg PO BID [facility] Last Admin: 04/25/18 11:06 Dose: 100 mg Haloperidol (Haldol -) 2 mg PO TID PRN PRN Reason: AGITATION Piperacillin Sod/Tazobactam (Sod 2.25 gm/ Dextrose) 50 mls @ 100 mls/hr IVPB Q8H-IV [facility] [place]; Protocol Last Admin: 04/25/18 17:30 Dose: 100 mls/hr Insulin Aspart (Novolog Vial Sliding Scale -) 1 vial SQ ACHS [facility] [place]; Protocol Last Admin: 04/25/18 17:29 Dose: 4 units Insulin Detemir (Levemir Vial) 10 units SQ HS [facility] Last Admin: 04/24/18 21:16 Dose: 10 units Multi-Ingredient Ointment (Zinc Oxide 20% Topical Oint) 1 gm TP DAILY [facility] Last Admin: 04/25/18 13:11 Dose: 1 applic Multivitamins (Total B With C -) 1 each PO DAILY [facility] Last Admin: 04/25/18 11:07 Dose: 1 each Ondansetron HCl (Zofran Injection) 4 mg IVPUSH Q6H PRN PRN Reason: NAUSEA AND/OR VOMITING Quetiapine Fumarate (Seroquel -) 50 mg PO Q12H PRN PRN Reason: AGITATION Last Admin: 04/25/18 13:04 Dose: 50 mg Ranitidine HCl (Zantac -) 150 mg PO DAILY [facility] Last Admin: 04/25/18 11:06 Dose: 150 mg Tamsulosin HCl (Flomax -) 0.4 mg PO HS [facility] Last Admin: 04/24/18 21:16 Dose: 0.4 mg - Objective Vital Signs: Vital Signs Temperature 98.6 F 04/25/18 18:04 Pulse Rate 60 04/25/18 18:04 Respiratory Rate 20 04/25/18 18:04 Blood Pressure 143/53 04/25/18 18:04 O2 Sat by Pulse Oximetry (%) 98 04/24/18 21:00 Constitutional: Yes: Calm Eyes: Yes: Conjunctiva Clear HENT: Yes: Atraumatic Cardiovascular: Yes: S1, S2 Respiratory: Yes: CTA Bilaterally Gastrointestinal: Yes: Normal Bowel Sounds, Soft Musculoskeletal: Yes: Muscle Weakness Edema: No Wound/Incision: Yes: Dressing Dry and Intact Neurological: Yes: Confusion Labs: CBC, BMP 04/24/18 07:30 04/24/18 07:30 INR, PTT INR 1.20 (0.83-1.09) H 03/28/18 22:22 Problem List - Problems (1) Diabetes Code(s): E11.9 - TYPE 2 DIABETES MELLITUS WITHOUT COMPLICATIONS Qualifiers: Diabetes mellitus type: type 1 Diabetes mellitus complication status: with circulatory complication (2) ESRD (end stage renal disease) on dialysis Code(s): N18.6 - END STAGE RENAL DISEASE; Z99.2 - DEPENDENCE ON RENAL DIALYSIS (3) Syncope Code(s): R55 - SYNCOPE AND COLLAPSE (4) Anemia Code(s): D64.9 - ANEMIA, UNSPECIFIED Assessment/Plan Current Medications Generic Name Dose Route Start Last Admin Trade Name Freq PRN Reason Stop Dose Admin Acetaminophen 650 mg 04/22/18 19:12 04/25/18 11:07 Tylenol - PO 650 mg Q6H PRN Administration PAIN LEVEL 1-5 Artificial Tears 1 drop 04/22/18 19:12 Artificial Tears OU Q12H PRN DRY EYES Aspirin 81 mg 04/24/18 17:00 04/25/18 11:06 Asa - PO 81 mg DAILY [facility] Administration Atorvastatin Calcium 40 mg 04/22/18 22:00 04/24/18 21:16 Lipitor - PO 40 mg HS [facility] Administration Calcium Acetate 667 mg 04/23/18 08:00 04/25/18 17:30 Phoslo - PO 667 mg TIDCM [facility] Administration Carvedilol 12.5 mg 04/22/18 22:00 04/25/18 11:06 Coreg - PO 12.5 mg BID [facility] Administration Citalopram Hydrobromide 20 mg 04/23/18 10:00 04/25/18 11:07 Celexa - PO 20 mg DAILY [facility] Administration Collagenase 1 applic 04/23/18 10:00 04/25/18 13:11 Santyl - TP 1 applic DAILY [facility] Administration Protocol Divalproex Sodium 125 mg 04/22/18 22:00 04/25/18 11:07 Depakote - PO 125 mg BID [facility] Administration Docusate Sodium 300 mg 04/22/18 22:00 04/24/18 21:16 Colace - PO 300 mg HS [facility] Administration Folic Acid 1 mg 04/23/18 10:00 04/25/18 11:06 Folic Acid - PO 1 mg DAILY [facility] Administration Gabapentin 100 mg 04/23/18 22:00 04/25/18 11:06 Neurontin - PO 100 mg BID [facility] Administration Haloperidol 2 mg 04/25/18 12:43 Haldol - PO TID PRN AGITATION Piperacillin Sod/Tazobactam 50 mls @ 100 mls/hr 04/23/18 02:00 04/25/18 17:30 Sod 2.25 gm/ Dextrose IVPB 100 mls/hr Q8H-IV [facility] Administration Protocol Insulin Aspart 1 vial 04/22/18 22:00 04/25/18 17:29 Novolog Vial Sliding Scale - SQ 4 units ACHS [facility] Administration Protocol Insulin Detemir 10 units 04/22/18 22:00 04/24/18 21:16 Levemir Vial SQ 10 units HS [facility] Administration Multi-Ingredient Ointment 1 gm 04/23/18 10:00 04/25/18 13:11 Zinc Oxide 20% Topical Oint TP 1 applic DAILY [facility] Administration Multivitamins 1 each 04/23/18 10:00 04/25/18 11:07 Total B With C - PO 1 each DAILY [facility] Administration Ondansetron HCl 4 mg 04/22/18 19:12 Zofran Injection IVPUSH Q6H PRN NAUSEA AND/OR VOMITING Quetiapine Fumarate 50 mg 04/24/18 17:51 04/25/18 13:04 Seroquel - PO 50 mg Q12H PRN Administration AGITATION Ranitidine HCl 150 mg 04/23/18 10:00 04/25/18 11:06 Zantac - PO 150 mg DAILY [facility] Administration Tamsulosin HCl 0.4 mg 04/22/18 22:00 04/24/18 21:16 Flomax - PO 0.4 mg HS [facility] Administration Impression 1. ESRD 2. anemia 3. HTN 4. Chol 5. DM 6. BPH 7. CAD 8. hypoglycemia 9. CHF 10. syncope 11. depression 12. PVD Plan - HD in am - vascular follow up - cont wound care - epogen for anemia - monitor blood sugar - psych eval Dr Donovan
[2018-04-25] MEDS: DOCUSATE SODIUM 100 MG CAPSULE (FP) PO SCH (22:34)
[2018-04-25] MEDS: INSULIN (LEVEMIR) 100 UNITS/ML UNITS SQ SCH (22:59)
[2018-04-25] MEDS: TAMSULOSIN HCL 0.4 MG CAP.ER.24H (FP) PO SCH (23:00)
[2018-04-25] MEDS: ATORVASTATIN CA 40 MG TABLET (FP) PO SCH (23:08)
[2018-04-26] MEDS ORDERED: PIPERACILLIN/TAZOBACTAM 2.25 GM VIAL IVPB ONE ×3 (00:08→17:08)
[2018-04-26] MEDS ORDERED: DEXTROSE 5%-WATER - 50 ML IVPB ONE ×3 (00:08→17:08)
[2018-04-26] MEDS ORDERED: PT OWN MED DRAWER 7, Y5N ONE ×3 (00:09→21:50)
[2018-04-26] MEDS: PIPERACILLIN/TAZOB 2.25 GM 2.25 GM in DEXTROSE 5%-WATER - 50 ML IVPB SCH ×3 (01:14→17:38)
[2018-04-26] MEDS: INSULIN SLIDING SCALE (NOVOLOG) 1 VIAL SQ SCH ×4 (06:51→22:15)
[2018-04-26] MEDS ORDERED: INSULIN (LEVEMIR) 100 UNITS/ML UNITS SQ ONE (07:03)
[2018-04-26] MEDS ORDERED: INSULIN (NOVOLOG) ASPART 100 UNITS/ML 10ML VIAL ONE (07:03)
[2018-04-26] MEDS: CALCIUM ACETATE 667 MG CAPSULE (FP) PO SCH ×3 (08:52→17:09)
[2018-04-26] MEDS: GABAPENTIN 100 MG CAPSULE (FP) PO SCH ×2 (09:01→21:54)
[2018-04-26] MEDS: COLLAGENASE CLOSTRIDIUM HIST. 30 GRAMS TUBE TP SCH (09:01)
[2018-04-26] MEDS: CARVEDILOL 12.5 MG TABLET (FP) PO SCH ×2 (09:01→21:54)
[2018-04-26] MEDS: FOLIC ACID 1 MG TABLET (FP) PO SCH (09:01)
[2018-04-26] MEDS: VITAMIN B COMPLEX W/C COMBO TABLET (FP) PO SCH (09:01)
[2018-04-26] MEDS: ASPIRIN 81 MG CHEWABLE TABLETS PO SCH (09:01)
[2018-04-26] MEDS: CITALOPRAM HYDROBROMIDE 20 MG TABLET (FP) PO SCH (09:01)
[2018-04-26] MEDS: RANITIDINE HCL 150 MG TABLET (FP) PO SCH (09:01)
[2018-04-26] MEDS: DIVALPROEX SODIUM 125 MG TABLET E.C. PO SCH ×2 (09:02→21:53)
--- NOTE | 2018-04-26 09:59 | PN ---
Progress Note (short form) - Note Progress Note: pt seen/ examined chart reviewed comfortable calm. bka planned for sunday Vital Signs Temp 97.6 F 04/26/18 08:44 Pulse 64 04/26/18 08:44 Resp 18 04/26/18 08:44 BP 148/57 L 04/26/18 08:44 Pulse Ox 100 04/25/18 21:00 Intake & Output 04/25/18 04/25/18 04/26/18 11:59 23:59 11:59 Intake Total 100 50 50 Balance 100 50 50 Weight 150 lb 14.4 oz 149 lb 6 oz Intake: IVPB 100 50 50 Oral 0 Other: Voiding Method Incontinent Incontinent Incontinent # Unmeasured Voids Void 2 Bowel Movement Yes Weight Measurement Method Patient Lift Scale Patient Lift Scale Active Medications Acetaminophen (Tylenol -) 650 mg PO Q6H PRN PRN Reason: PAIN LEVEL 1-5 Last Admin: 04/25/18 11:07 Dose: 650 mg Artificial Tears (Artificial Tears) 1 drop OU Q12H PRN PRN Reason: DRY EYES Aspirin (Asa -) 81 mg PO DAILY [facility] Last Admin: 04/26/18 09:01 Dose: 81 mg Atorvastatin Calcium (Lipitor -) 40 mg PO [facility] Last Admin: 04/25/18 23:08 Dose: 40 mg Calcium Acetate (Phoslo -) 667 mg PO TIDCM [facility] Last Admin: 04/26/18 08:52 Dose: 667 mg Carvedilol (Coreg -) 12.5 mg PO BID [facility] Last Admin: 04/26/18 09:01 Dose: 12.5 mg Citalopram Hydrobromide (Celexa -) 20 mg PO DAILY [facility] Last Admin: 04/26/18 09:01 Dose: 20 mg Collagenase (Santyl -) 1 applic TP DAILY [facility]; Protocol Last Admin: 04/26/18 09:01 Dose: Not Given Divalproex Sodium (Depakote -) 125 mg PO BID [facility] Last Admin: 04/26/18 09:02 Dose: 125 mg Docusate Sodium (Colace -) 300 mg PO [facility] Last Admin: 04/25/18 22:34 Dose: Not Given Epoetin [place] (Epogen -) 12,000 unit IVPUSH ONCE ONE Stop: 04/26/18 18:40 Folic Acid (Folic Acid -) 1 mg PO DAILY [facility] Last Admin: 04/26/18 09:01 Dose: 1 mg Gabapentin (Neurontin -) 100 mg PO BID [facility] Last Admin: 04/26/18 09:01 Dose: 100 mg Haloperidol (Haldol -) 2 mg PO TID PRN PRN Reason: AGITATION Piperacillin Sod/Tazobactam (Sod 2.25 gm/ Dextrose) 50 mls @ 100 mls/hr IVPB Q8H-IV [facility]; Protocol Last Admin: 04/26/18 09:04 Dose: 100 mls/hr Sodium Chloride (Normal Saline -) 250 mls @ 3,000 mls/hr IV PRN PRN PRN Reason: Hypotension during Dialysis Stop: 04/26/18 18:39 Insulin Aspart (Novolog Vial Sliding Scale -) 1 vial SQ [facility]; Protocol Last Admin: 04/26/18 06:51 Dose: Not Given Insulin Detemir (Levemir Vial) 10 units SQ [facility] Last Admin: 04/25/18 22:59 Dose: 10 units Multi-Ingredient Ointment (Zinc Oxide 20% Topical Oint) 1 gm TP DAILY [facility] Last Admin: 04/25/18 13:11 Dose: 1 applic Multivitamins (Total B With C -) 1 each PO DAILY [facility] Last Admin: 04/26/18 09:01 Dose: 1 each Ondansetron HCl (Zofran Injection) 4 mg IVPUSH Q6H PRN PRN Reason: NAUSEA AND/OR VOMITING Quetiapine Fumarate (Seroquel -) 50 mg PO Q12H PRN PRN Reason: AGITATION Last Admin: 04/25/18 13:04 Dose: 50 mg Ranitidine HCl (Zantac -) 150 mg PO DAILY [facility] Last Admin: 04/26/18 09:01 Dose: 150 mg Tamsulosin HCl (Flomax -) 0.4 mg PO HS [facility] Last Admin: 04/25/18 23:00 Dose: 0.4 mg CBC, BMP 04/24/18 07:30 04/24/18 07:30 Physical Exam- Constitutional: Yes: No Distress, Comfortable. Neck: Yes: Supple. no jvd Cardiovascular: Yes: Regular Rate and Rhythm Respiratory: Yes: Diminished Gastrointestinal: Yes: Soft/ non tender Edema: No Wound/Incision: Yes: Bilateral heel ulcers -legs are warm ,left - wound vac Neurological: Yes: Alert Psychiatric: Yes: Alert,calm Assessment/Plan Continue present care abx-- Zosyn bone scan-ve Arterial doppler-- Atherosclerotic disease is now agreeable to surgery -Sunday ASA and plavix on hold continue present care monitor bgm overall condition gaurded due to multiple comorbidities Problem List - Problems (1) Diabetes Code(s): E11.9 - TYPE 2 DIABETES MELLITUS WITHOUT COMPLICATIONS Qualifiers: Diabetes mellitus type: type 1 Diabetes mellitus complication status: with circulatory complication (2) ESRD (end stage renal disease) on dialysis Code(s): N18.6 - END STAGE RENAL DISEASE; Z99.2 - DEPENDENCE ON RENAL DIALYSIS (3) Infected pressure ulcer Code(s): L89.90 - PRESSURE ULCER OF UNSPECIFIED SITE, UNSPECIFIED STAGE; L08.9 - LOCAL INFECTION OF THE SKIN AND SUBCUTANEOUS TISSUE, UNSP (4) Syncope Code(s): R55 - SYNCOPE AND COLLAPSE (5) Acute metabolic encephalopathy due to hypoglycemia Code(s): G93.41 - METABOLIC ENCEPHALOPATHY; E16.2 - HYPOGLYCEMIA, UNSPECIFIED (6) Anemia Code(s): D64.9 - ANEMIA, UNSPECIFIED (7) CAD (coronary artery disease) Code(s): I25.10 - ATHSCL HEART DISEASE OF [place] CORONARY ARTERY W/O ANG PCTRS Qualifiers: Coronary Disease-Associated Artery/Lesion type: [place] artery [place] vs. transplanted heart: [place] heart Associated angina: without angina Qualified Code(s): I25.10 - Atherosclerotic heart disease of [place] coronary artery without angina pectoris (8) ESRD (end stage renal disease) on dialysis Code(s): N18.6 - END STAGE RENAL DISEASE; Z99.2 - DEPENDENCE ON RENAL DIALYSIS
[2018-04-26] MEDS: ZINC OXIDE 20% TOPICAL OINTMENT 454 GM JAR TP SCH (11:18)
[2018-04-26 12:01] LABS: HEMATOCRIT 26.9 % (35.4-49); HEMOGLOBIN 8.8 GM/dL (11.7-16.9); MCH 31.4 pg (25.7-33.7); MCHC 32.9 g/dl (32.0-35.9); MEAN CELL VOLUME 95.2 fl (80-96); MEAN PLT VOLUME 6.7 fl (7.5-11.1); PLATELET COUNT 294 K/MM3 (134-434); RBC 2.82 M/mm3 (4.00-5.60); RDW 16.7 % (11.9-15.9); WHITE BLOOD COUNT 9.6 K/mm3 (4.0-10.0)
[2018-04-26 12:24] LABS: ANION GAP 12 MMOL/L (8-16); BLOOD UREA NITROGEN 61 mg/dL (7-18); CALCIUM 8.5 mg/dL (8.5-10.1); CHLORIDE 103 mmol/L (98-107); CO2 29 mmol/L (21-32); CREATININE 6.9 mg/dL (0.55-1.3); GLUCOSE,RANDOM 191 mg/dL (74-106); POTASSIUM 4.2 mmol/L (3.5-5.1); SODIUM 144 mmol/L (136-145)
[2018-04-26] MEDS ORDERED: EPOETIN ALFA 10,000 UNIT, EPOETIN ALFA 2,000 UNIT IVPUSH ONE (12:30)
--- NOTE | 2018-04-26 14:27 | PN ---
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 Denies chest pain or dyspnea. - Current Medication List Current Medications: Active Medications Acetaminophen (Tylenol -) 650 mg PO Q6H PRN PRN Reason: PAIN LEVEL 1-5 Last Admin: 04/25/18 11:07 Dose: 650 mg Artificial Tears (Artificial Tears) 1 drop OU Q12H PRN PRN Reason: DRY EYES Aspirin (Asa -) 81 mg PO DAILY [facility] Last Admin: 04/26/18 09:01 Dose: 81 mg Atorvastatin Calcium (Lipitor -) 40 mg PO HS [facility] Last Admin: 04/25/18 23:08 Dose: 40 mg Calcium Acetate (Phoslo -) 667 mg PO TIDCM [facility] Last Admin: 04/26/18 08:52 Dose: 667 mg Carvedilol (Coreg -) 12.5 mg PO BID [facility] Last Admin: 04/26/18 09:01 Dose: 12.5 mg Citalopram Hydrobromide (Celexa -) 20 mg PO DAILY [facility] Last Admin: 04/26/18 09:01 Dose: 20 mg Collagenase (Santyl -) 1 applic TP DAILY [facility]; Protocol Last Admin: 04/26/18 09:01 Dose: Not Given Divalproex Sodium (Depakote -) 125 mg PO BID [facility] Last Admin: 04/26/18 09:02 Dose: 125 mg Docusate Sodium (Colace -) 300 mg PO HS [facility] Last Admin: 04/25/18 22:34 Dose: Not Given Folic Acid (Folic Acid -) 1 mg PO DAILY [facility] Last Admin: 04/26/18 09:01 Dose: 1 mg Gabapentin (Neurontin -) 100 mg PO BID [facility] Last Admin: 04/26/18 09:01 Dose: 100 mg Haloperidol (Haldol -) 2 mg PO TID PRN PRN Reason: AGITATION Piperacillin Sod/Tazobactam (Sod 2.25 gm/ Dextrose) 50 mls @ 100 mls/hr IVPB Q8H-IV [facility]; Protocol Last Admin: 04/26/18 09:04 Dose: 100 mls/hr Sodium Chloride (Normal Saline -) 250 mls @ 3,000 mls/hr IV PRN PRN PRN Reason: Hypotension during Dialysis Stop: 04/26/18 18:39 Insulin Aspart (Novolog Vial Sliding Scale -) 1 vial SQ [facility]; Protocol Last Admin: 04/26/18 11:18 Dose: Not Given Insulin Detemir (Levemir Vial) 10 units SQ [facility] Last Admin: 04/25/18 22:59 Dose: 10 units Multi-Ingredient Ointment (Zinc Oxide 20% Topical Oint) 1 gm TP DAILY [facility] Last Admin: 04/26/18 11:18 Dose: 1 applic Multivitamins (Total B With C -) 1 each PO DAILY [facility] Last Admin: 04/26/18 09:01 Dose: 1 each Ondansetron HCl (Zofran Injection) 4 mg IVPUSH Q6H PRN PRN Reason: NAUSEA AND/OR VOMITING Quetiapine Fumarate (Seroquel -) 50 mg PO Q12H PRN PRN Reason: AGITATION Last Admin: 04/25/18 13:04 Dose: 50 mg Ranitidine HCl (Zantac -) 150 mg PO DAILY [facility] Last Admin: 04/26/18 09:01 Dose: 150 mg Tamsulosin HCl (Flomax -) 0.4 mg PO [facility] Last Admin: 04/25/18 23:00 Dose: 0.4 mg - Objective Vital Signs: Vital Signs Temperature 98.8 F 04/26/18 11:20 Pulse Rate 63 04/26/18 13:55 Respiratory Rate 18 04/26/18 13:55 Blood Pressure 112/55 L 04/26/18 13:55 O2 Sat by Pulse Oximetry (%) 99 04/26/18 09:00 Constitutional: Yes: No Distress, Calm, Thin Neck: Yes: Supple Cardiovascular: Yes: Regular Rate and Rhythm Respiratory: Yes: Regular, Diminished Gastrointestinal: Yes: Normal Bowel Sounds, Soft Edema: No Wound/Incision: Yes: Dressing Dry and Intact Labs: CBC, BMP 04/26/18 11:30 04/26/18 11:30 INR, PTT INR 1.20 (0.83-1.09) H 03/28/18 22:22 Problem List - Problems (1) Pre-operative cardiovascular examination Code(s): Z01.810 - ENCOUNTER FOR PREPROCEDURAL CARDIOVASCULAR EXAMINATION (2) Diabetes Code(s): E11.9 - TYPE 2 DIABETES MELLITUS WITHOUT COMPLICATIONS Qualifiers: Diabetes mellitus type: type 1 Diabetes mellitus complication status: with circulatory complication (3) ESRD (end stage renal disease) on dialysis Code(s): N18.6 - END STAGE RENAL DISEASE; Z99.2 - DEPENDENCE ON RENAL DIALYSIS (4) Eschar of heel Code(s): R23.4 - CHANGES IN SKIN TEXTURE (5) CAD (coronary artery disease) Code(s): I25.10 - ATHSCL HEART DISEASE OF [place] CORONARY ARTERY W/O ANG PCTRS Qualifiers: Coronary Disease-Associated Artery/Lesion type: [place] artery [place] vs. transplanted heart: enterprise heart Associated angina: without angina Qualified Code(s): I25.10 - Atherosclerotic heart disease of [place] coronary artery without angina pectoris (6) CHF (congestive heart failure) Code(s): I50.9 - HEART FAILURE, UNSPECIFIED (7) CAD (coronary artery disease) Code(s): I25.10 - ATHSCL HEART DISEASE OF [place] CORONARY ARTERY W/O ANG PCTRS Qualifiers: Coronary Disease-Associated Artery/Lesion type: enterprise artery [place] vs. transplanted heart: enterprise heart Associated angina: without angina Qualified Code(s): I25.10 - Atherosclerotic heart disease of [place] coronary artery without angina pectoris (8) HTN (hypertension) Code(s): I10 - ESSENTIAL (PRIMARY) HYPERTENSION Qualifiers: Hypertension type: essential hypertension Qualified Code(s): I10 - Essential (primary) hypertension (9) Hx of CABG Code(s): Z95.1 - PRESENCE OF AORTOCORONARY BYPASS GRAFT (10) Hypercholesterolemia Code(s): E78.00 - PURE HYPERCHOLESTEROLEMIA, UNSPECIFIED (11) PAD (peripheral artery disease) Code(s): I73.9 - PERIPHERAL VASCULAR DISEASE, UNSPECIFIED (12) S/P coronary artery stent placement Code(s): Z95.5 - PRESENCE OF CORONARY ANGIOPLASTY IMPLANT AND GRAFT Assessment/Plan 12/19/2017 Normal LV size with mild-mod decrease LV fxn, mild STEHPEN, mild TR, MR, can't exclude MV vegetation 1. PAD s/p LE bypass, heel wound (non healing) s/p angioplasty right posterior tibial artery, plan for right TMA vs BKA, left heel wound vac 2. HTN 3. Hypercholesterolemia 4. DM 5. Diastolic/Systolic LV dysfunction with class 0 NYHA classification LV failure 6. CAD s/p CABG, PCI/stent, demand ischemia 7. ESRD on HD 8. Anemia of CKD PLAN: 1. No absolute contraindication in proceeding with vascular intervention in view of absence of ischemic symptoms, decompensated congestive heart failure or malignant arrhythmias. 2. Continue Carvedilol 12.5 bid and Lipitor 40 qhs, Plavix held pre-op (had wound ooze post-debridement treated with plt transfusion), continue ASA 81 qd prei-op to minimize risk of very late stent thrombosis, resume Plavix once post- op hemostasis has been achieved, d/w vascular 3. Empiric antibiotic course and right BKA as per vascular surgery, awaiting consent 4. HD per renal 5. DVT and GI prophylaxis
--- NOTE | 2018-04-26 15:54 | PN ---
Progress Note, Physician History of Present Illness: Pt seen and examined at bedside. He is tolerating HD. He much more awake and alert today. - Current Medication List Current Medications: Active Medications Acetaminophen (Tylenol -) 650 mg PO Q6H PRN PRN Reason: PAIN LEVEL 1-5 Last Admin: 04/25/18 11:07 Dose: 650 mg Artificial Tears (Artificial Tears) 1 drop OU Q12H PRN PRN Reason: DRY EYES Aspirin (Asa -) 81 mg PO DAILY [facility] Last Admin: 04/26/18 09:01 Dose: 81 mg Atorvastatin Calcium (Lipitor -) 40 mg PO HS [facility] Last Admin: 04/25/18 23:08 Dose: 40 mg Calcium Acetate (Phoslo -) 667 mg PO TIDCM [facility] Last Admin: 04/26/18 08:52 Dose: 667 mg Carvedilol (Coreg -) 12.5 mg PO BID [facility] Last Admin: 04/26/18 09:01 Dose: 12.5 mg Citalopram Hydrobromide (Celexa -) 20 mg PO DAILY [facility] Last Admin: 04/26/18 09:01 Dose: 20 mg Collagenase (Santyl -) 1 applic TP DAILY [facility]; Protocol Last Admin: 04/26/18 09:01 Dose: Not Given Divalproex Sodium (Depakote -) 125 mg PO BID [facility] Last Admin: 04/26/18 09:02 Dose: 125 mg Docusate Sodium (Colace -) 300 mg PO HS [facility] Last Admin: 04/25/18 22:34 Dose: Not Given Folic Acid (Folic Acid -) 1 mg PO DAILY [facility] Last Admin: 04/26/18 09:01 Dose: 1 mg Gabapentin (Neurontin -) 100 mg PO BID [facility] Last Admin: 04/26/18 09:01 Dose: 100 mg Haloperidol (Haldol -) 2 mg PO TID PRN PRN Reason: AGITATION Piperacillin Sod/Tazobactam (Sod 2.25 gm/ Dextrose) 50 mls @ 100 mls/hr IVPB Q8H-IV [facility]; Protocol Last Admin: 04/26/18 09:04 Dose: 100 mls/hr Sodium Chloride (Normal Saline -) 250 mls @ 3,000 mls/hr IV PRN PRN PRN Reason: Hypotension during Dialysis Stop: 04/26/18 18:39 Insulin Aspart (Novolog Vial Sliding Scale -) 1 vial SQ [facility]; Protocol Last Admin: 04/26/18 11:18 Dose: Not Given Insulin Detemir (Levemir Vial) 10 units SQ [facility] Last Admin: 04/25/18 22:59 Dose: 10 units Multi-Ingredient Ointment (Zinc Oxide 20% Topical Oint) 1 gm TP DAILY [facility] Last Admin: 04/26/18 11:18 Dose: 1 applic Multivitamins (Total B With C -) 1 each PO DAILY [facility] Last Admin: 04/26/18 09:01 Dose: 1 each Ondansetron HCl (Zofran Injection) 4 mg IVPUSH Q6H PRN PRN Reason: NAUSEA AND/OR VOMITING Quetiapine Fumarate (Seroquel -) 50 mg PO Q12H PRN PRN Reason: AGITATION Last Admin: 04/25/18 13:04 Dose: 50 mg Ranitidine HCl (Zantac -) 150 mg PO DAILY [facility] Last Admin: 04/26/18 09:01 Dose: 150 mg Tamsulosin HCl (Flomax -) 0.4 mg PO [facility] Last Admin: 04/25/18 23:00 Dose: 0.4 mg - Objective Vital Signs: Vital Signs Temperature 98.9 F 04/26/18 15:29 Pulse Rate 66 04/26/18 15:29 Respiratory Rate 20 04/26/18 15:29 Blood Pressure 133/54 L 04/26/18 15:29 O2 Sat by Pulse Oximetry (%) 99 04/26/18 09:00 Constitutional: Yes: Calm Eyes: Yes: Conjunctiva Clear HENT: Yes: Atraumatic Cardiovascular: Yes: S1, S2 Respiratory: Yes: CTA Bilaterally Gastrointestinal: Yes: Soft Genitourinary: Yes: WNL Edema: No Wound/Incision: Yes: Draining, Reddened Neurological: Yes: Confusion Labs: CBC, BMP 04/26/18 11:30 04/26/18 11:30 INR, PTT INR 1.20 (0.83-1.09) H 03/28/18 22:22 Problem List - Problems (1) Diabetes Code(s): E11.9 - TYPE 2 DIABETES MELLITUS WITHOUT COMPLICATIONS Qualifiers: Diabetes mellitus type: type 1 Diabetes mellitus complication status: with circulatory complication (2) ESRD (end stage renal disease) on dialysis Code(s): N18.6 - END STAGE RENAL DISEASE; Z99.2 - DEPENDENCE ON RENAL DIALYSIS (3) Syncope Code(s): R55 - SYNCOPE AND COLLAPSE (4) Anemia Code(s): D64.9 - ANEMIA, UNSPECIFIED Assessment/Plan Current Medications Generic Name Dose Route Start Last Admin Trade Name Freq PRN Reason Stop Dose Admin Acetaminophen 650 mg 04/22/18 19:12 04/25/18 11:07 Tylenol - PO 650 mg Q6H PRN Administration PAIN LEVEL 1-5 Artificial Tears 1 drop 04/22/18 19:12 Artificial Tears OU Q12H PRN DRY EYES Aspirin 81 mg 04/24/18 17:00 04/26/18 09:01 Asa - PO 81 mg DAILY [facility] Administration Atorvastatin Calcium 40 mg 04/22/18 22:00 04/25/18 23:08 Lipitor - PO 40 mg HS [facility] Administration Calcium Acetate 667 mg 04/23/18 08:00 04/26/18 08:52 Phoslo - PO 667 mg TIDCM [facility] Administration Carvedilol 12.5 mg 04/22/18 22:00 04/26/18 09:01 Coreg - PO 12.5 mg BID [facility] Administration Citalopram Hydrobromide 20 mg 04/23/18 10:00 04/26/18 09:01 Celexa - PO 20 mg DAILY [facility] Administration Collagenase 1 applic 04/23/18 10:00 04/26/18 09:01 Santyl - TP Not Given DAILY [facility] Protocol Divalproex Sodium 125 mg 04/22/18 22:00 04/26/18 09:02 Depakote - PO 125 mg BID [facility] Administration Docusate Sodium 300 mg 04/22/18 22:00 04/25/18 22:34 Colace - PO Not Given HS [facility] Folic Acid 1 mg 04/23/18 10:00 04/26/18 09:01 Folic Acid - PO 1 mg DAILY [facility] Administration Gabapentin 100 mg 04/23/18 22:00 04/26/18 09:01 Neurontin - PO 100 mg BID [facility] Administration Haloperidol 2 mg 04/25/18 12:43 Haldol - PO TID PRN AGITATION Piperacillin Sod/Tazobactam 50 mls @ 100 mls/hr 04/23/18 02:00 04/26/18 09:04 Sod 2.25 gm/ Dextrose IVPB 100 mls/hr Q8H-IV [facility] Administration Protocol Sodium Chloride 250 mls @ 3,000 mls/hr 04/25/18 18:39 Normal Saline - IV 04/26/18 18:39 PRN PRN Hypotension during Dialysis Insulin Aspart 1 vial 04/22/18 22:00 04/26/18 11:18 Novolog Vial Sliding Scale - SQ Not Given ACHS [facility] Protocol Insulin Detemir 10 units 04/22/18 22:00 04/25/18 22:59 Levemir Vial SQ 10 units HS [facility] Administration Multi-Ingredient Ointment 1 gm 04/23/18 10:00 04/26/18 11:18 Zinc Oxide 20% Topical Oint TP 1 applic DAILY [facility] Administration Multivitamins 1 each 04/23/18 10:00 04/26/18 09:01 Total B With C - PO 1 each DAILY [facility] Administration Ondansetron HCl 4 mg 04/22/18 19:12 Zofran Injection IVPUSH Q6H PRN NAUSEA AND/OR VOMITING Quetiapine Fumarate 50 mg 04/24/18 17:51 04/25/18 13:04 Seroquel - PO 50 mg Q12H PRN Administration AGITATION Ranitidine HCl 150 mg 04/23/18 10:00 04/26/18 09:01 Zantac - PO 150 mg DAILY [facility] Administration Tamsulosin HCl 0.4 mg 04/22/18 22:00 04/25/18 23:00 Flomax - PO 0.4 mg HS [facility] Administration Impression 1. ESRD 2. anemia 3. HTN 4. Chol 5. DM 6. BPH 7. CAD 8. hypoglycemia 9. CHF 10. syncope 11. depression 12. PVD Plan - HD today - cont wound care - vascular follow up, pt does not have an OR spot scheduled for amputation - monitor hg - epogen for anemia - psych eval appreciated Dr Donovan
--- NOTE | 2018-04-26 16:25 | PN ---
Progress Note (short form) - Note Progress Note: Surgery POD #4 b/l heel debridement patient seen and examined at bedside. Patient resting comfortably. Vital Signs Temp 98.9 F 04/26/18 15:29 Pulse 66 04/26/18 15:29 Resp 20 04/26/18 15:29 BP 133/54 L 04/26/18 15:29 Pulse Ox 99 04/26/18 09:00 Intake & Output 04/25/18 04/26/18 04/26/18 23:59 11:59 23:59 Intake Total 50 300 150 Balance 50 300 150 Weight 149 lb 6 oz Intake: IVPB 50 50 Oral 250 150 Other: Voiding Method Incontinent Incontinent # Unmeasured Voids Void 2 Bowel Movement Yes No Body Mass Index (BMI) 25.5 Weight Measurement Method Patient Lift Scale CBC, BMP 04/26/18 11:30 04/26/18 11:30 PE: resting comfortably Unlabored resp on RA Left heel wound vac in place, scheduled to be changed today per nursing Right heel wound 10 x 5 cm with full thickness necrosis to calcaneus and periosteum involving muscle. slight bleeding seen at lateral edge, resolved with silver nitrate application and pressure. Wound redressed, pressure offloaded and heel pad in place. surgery to follow. Problem List - Problems (1) Eschar of heel Assessment/Plan: B/L heel ulcers and PVD. 1) continue wound vac on Left heel per schedule 2) wet to dry dressing on right heel, plan for BKA next week once family consents 3) offload area and heel pads 4) pain control 5) Plan for OR per Chandu Code(s): R23.4 - CHANGES IN SKIN TEXTURE
[2018-04-26] MEDS: QUEtiapine FUMARATE 25 MG TABLET (FP) PO PRN (16:55)
[2018-04-26] MEDS: ACETAMINOPHEN 325 MG TABLET (FP) PO PRN (17:09)
[2018-04-26] MEDS ORDERED: EPOETIN ALFA 2,000 UNIT/1 ML VIAL IVPUSH ONE (18:39)
[2018-04-26] MEDS: DOCUSATE SODIUM 100 MG CAPSULE (FP) PO SCH (21:53)
[2018-04-26] MEDS: TAMSULOSIN HCL 0.4 MG CAP.ER.24H (FP) PO SCH (21:53)
[2018-04-26] MEDS: ATORVASTATIN CA 40 MG TABLET (FP) PO SCH (21:53)
[2018-04-26] MEDS: INSULIN (LEVEMIR) 100 UNITS/ML UNITS SQ SCH (21:54)
[2018-04-27] MEDS: PIPERACILLIN/TAZOB 2.25 GM 2.25 GM in DEXTROSE 5%-WATER - 50 ML IVPB SCH ×3 (01:47→17:22)
[2018-04-27] MEDS: INSULIN SLIDING SCALE (NOVOLOG) 1 VIAL SQ SCH ×4 (06:41→22:04)
[2018-04-27] MEDS ORDERED: DEXTROSE 5%-WATER - 50 ML IVPB ONE ×2 (09:12→17:11)
[2018-04-27] MEDS ORDERED: PIPERACILLIN/TAZOBACTAM 2.25 GM VIAL IVPB ONE ×2 (09:12→17:10)
--- NOTE | 2018-04-27 09:13 | PN ---
Progress Note (short form) - Note Progress Note: - Note Progress Note: Patient seen and examined no distress Vital Signs - 24 hr 04/27/18 04/27/18 04/27/18 05:35 09:00 10:00 Temperature 98 F 98.9 F Pulse Rate 65 65 Respiratory 20 20 Rate Blood Pressure 119/49 L 151/61 O2 Sat by Pulse 100 Oximetry (%) Current Medications Generic Name Dose Route Start Last Admin Trade Name Freq PRN Reason Stop Dose Admin Acetaminophen 650 mg 04/22/18 19:12 04/26/18 17:09 Tylenol - PO 650 mg Q6H PRN Administration PAIN LEVEL 1-5 Artificial Tears 1 drop 04/22/18 19:12 Artificial Tears OU Q12H PRN DRY EYES Aspirin 81 mg 04/24/18 17:00 04/27/18 09:20 Asa - PO 81 mg DAILY [facility] Administration Atorvastatin Calcium 40 mg 04/22/18 22:00 04/27/18 22:03 Lipitor - PO 40 mg HS [facility] Administration Calcium Acetate 667 mg 04/23/18 08:00 04/27/18 17:22 Phoslo - PO 667 mg TIDCM [facility] Administration Carvedilol 12.5 mg 04/22/18 22:00 04/27/18 22:03 Coreg - PO 12.5 mg BID [facility] Administration Citalopram Hydrobromide 20 mg 04/23/18 10:00 04/27/18 09:19 Celexa - PO 20 mg DAILY [facility] Administration Collagenase 1 applic 04/23/18 10:00 04/27/18 09:21 Santyl - TP 1 applic DAILY [facility] Administration Protocol Divalproex Sodium 125 mg 04/22/18 22:00 04/27/18 22:04 Depakote - PO 125 mg BID [facility] Administration Docusate Sodium 300 mg 04/22/18 22:00 04/27/18 22:03 Colace - PO 300 mg HS [facility] Administration Folic Acid 1 mg 04/23/18 10:00 04/27/18 09:19 Folic Acid - PO 1 mg DAILY [facility] Administration Gabapentin 100 mg 04/23/18 22:00 04/27/18 22:03 Neurontin - PO 100 mg BID [facility] Administration Haloperidol 2 mg 04/25/18 12:43 Haldol - PO TID PRN AGITATION Piperacillin Sod/Tazobactam 50 mls @ 100 mls/hr 04/23/18 02:00 04/27/18 17:22 Sod 2.25 gm/ Dextrose IVPB 100 mls/hr Q8H-IV [facility] Administration Protocol Sodium Chloride 250 mls @ 3,000 mls/hr 04/25/18 18:39 Normal Saline - IV 04/26/18 18:39 PRN PRN Hypotension during Dialysis Insulin Aspart 1 vial 04/22/18 22:00 04/27/18 22:04 Novolog Vial Sliding Scale - SQ 6 units ACHS [facility] Administration Protocol Insulin Detemir 10 units 04/22/18 22:00 04/27/18 22:04 Levemir Vial SQ 10 units HS [facility] Administration Multi-Ingredient Ointment 1 gm 04/23/18 10:00 04/27/18 09:21 Zinc Oxide 20% Topical Oint TP 1 applic DAILY [facility] Administration Multivitamins 1 each 04/23/18 10:00 04/27/18 09:20 Total B With C - PO 1 each DAILY [facility] Administration Ondansetron HCl 4 mg 04/22/18 19:12 Zofran Injection IVPUSH Q6H PRN NAUSEA AND/OR VOMITING Quetiapine Fumarate 50 mg 04/24/18 17:51 04/27/18 09:19 Seroquel - PO 50 mg Q12H PRN Administration AGITATION Ranitidine HCl 150 mg 04/23/18 10:00 04/27/18 09:19 Zantac - PO 150 mg DAILY [facility] Administration Tamsulosin HCl 0.4 mg 04/22/18 22:00 04/27/18 22:03 Flomax - PO 0.4 mg HS [facility] Administration Laboratory Results - last 24 hr 04/27/18 04/27/18 04/27/18 06:19 11:19 16:18 POC Glucometer 161 211 232 04/27/18 22:02 POC Glucometer 347 exam- Constitutional: Yes: No Distress, Comfortable. Neck: Yes: Supple. no jvd Cardiovascular: Yes: Regular Rate and Rhythm Respiratory: Yes: Diminished Gastrointestinal: Yes: Soft/ non tender Edema: No Wound/Incision: Yes: Bilateral heel ulcers -legs are warm ,left - wound vac Neurological: Yes: Alert Psychiatric: Yes: Alert,calm Assessment/Plan drowsy Continue present care abx-- Zosyn bone scan-ve Arterial doppler-- Atherosclerotic disease is now agreeable to surgery - possible Sunday Psych eval; noted-- will give Haldol prn as he was very agitated this AM as per RN ASA and plavix on hold DC fluids s/p PRBC iv antibiotics add bacid Problem List - Problems (1) Diabetes Code(s): E11.9 - TYPE 2 DIABETES MELLITUS WITHOUT COMPLICATIONS Qualifiers: Diabetes mellitus type: type 1 Diabetes mellitus complication status: with circulatory complication (2) ESRD (end stage renal disease) on dialysis Code(s): N18.6 - END STAGE RENAL DISEASE; Z99.2 - DEPENDENCE ON RENAL DIALYSIS (3) Infected pressure ulcer Code(s): L89.90 - PRESSURE ULCER OF UNSPECIFIED SITE, UNSPECIFIED STAGE; L08.9 - LOCAL INFECTION OF THE SKIN AND SUBCUTANEOUS TISSUE, UNSP (4) Syncope Code(s): R55 - SYNCOPE AND COLLAPSE (5) Acute metabolic encephalopathy due to hypoglycemia Code(s): G93.41 - METABOLIC ENCEPHALOPATHY; E16.2 - HYPOGLYCEMIA, UNSPECIFIED (6) Anemia Code(s): D64.9 - ANEMIA, UNSPECIFIED (7) CAD (coronary artery disease) Code(s): I25.10 - ATHSCL HEART DISEASE OF [place] CORONARY ARTERY W/O ANG PCTRS (8) ESRD (end stage renal disease) on dialysis Code(s): N18.6 - END STAGE RENAL DISEASE; Z99.2 - DEPENDENCE ON RENAL DIALYSIS
[2018-04-27] MEDS: CALCIUM ACETATE 667 MG CAPSULE (FP) PO SCH ×3 (09:19→17:22)
[2018-04-27] MEDS: GABAPENTIN 100 MG CAPSULE (FP) PO SCH ×2 (09:19→22:03)
[2018-04-27] MEDS: CITALOPRAM HYDROBROMIDE 20 MG TABLET (FP) PO SCH (09:19)
[2018-04-27] MEDS: FOLIC ACID 1 MG TABLET (FP) PO SCH (09:19)
[2018-04-27] MEDS: RANITIDINE HCL 150 MG TABLET (FP) PO SCH (09:19)
[2018-04-27] MEDS: QUEtiapine FUMARATE 25 MG TABLET (FP) PO PRN (09:19)
[2018-04-27] MEDS: CARVEDILOL 12.5 MG TABLET (FP) PO SCH ×2 (09:20→22:03)
[2018-04-27] MEDS: VITAMIN B COMPLEX W/C COMBO TABLET (FP) PO SCH (09:20)
[2018-04-27] MEDS: ASPIRIN 81 MG CHEWABLE TABLETS PO SCH (09:20)
[2018-04-27] MEDS: COLLAGENASE CLOSTRIDIUM HIST. 30 GRAMS TUBE TP SCH (09:21)
[2018-04-27] MEDS: ZINC OXIDE 20% TOPICAL OINTMENT 454 GM JAR TP SCH (09:21)
[2018-04-27] MEDS: DIVALPROEX SODIUM 125 MG TABLET E.C. PO SCH ×2 (09:45→22:04)
--- NOTE | 2018-04-27 12:42 | PN ---
Progress Note, Physician History of Present Illness: Resting comfortably, denies chest pain or dyspnea. - Current Medication List Current Medications: Active Medications Acetaminophen (Tylenol -) 650 mg PO Q6H PRN PRN Reason: PAIN LEVEL 1-5 Last Admin: 04/26/18 17:09 Dose: 650 mg Artificial Tears (Artificial Tears) 1 drop OU Q12H PRN PRN Reason: DRY EYES Aspirin (Asa -) 81 mg PO DAILY [facility] Last Admin: 04/27/18 09:20 Dose: 81 mg Atorvastatin Calcium (Lipitor -) 40 mg PO HS [facility] Last Admin: 04/26/18 21:53 Dose: 40 mg Calcium Acetate (Phoslo -) 667 mg PO TIDCM [facility] Last Admin: 04/27/18 12:04 Dose: 667 mg Carvedilol (Coreg -) 12.5 mg PO BID [facility] Last Admin: 04/27/18 09:20 Dose: 12.5 mg Citalopram Hydrobromide (Celexa -) 20 mg PO DAILY [facility] Last Admin: 04/27/18 09:19 Dose: 20 mg Collagenase (Santyl -) 1 applic TP DAILY [facility]; Protocol Last Admin: 04/27/18 09:21 Dose: 1 applic Divalproex Sodium (Depakote -) 125 mg PO BID [facility] Last Admin: 04/27/18 09:45 Dose: 125 mg Docusate Sodium (Colace -) 300 mg PO HS [facility] Last Admin: 04/26/18 21:53 Dose: 300 mg Folic Acid (Folic Acid -) 1 mg PO DAILY [facility] Last Admin: 04/27/18 09:19 Dose: 1 mg Gabapentin (Neurontin -) 100 mg PO BID [facility] Last Admin: 04/27/18 09:19 Dose: 100 mg Haloperidol (Haldol -) 2 mg PO TID PRN PRN Reason: AGITATION Piperacillin Sod/Tazobactam (Sod 2.25 gm/ Dextrose) 50 mls @ 100 mls/hr IVPB Q8H-IV [facility]; Protocol Last Admin: 04/27/18 09:18 Dose: 100 mls/hr Sodium Chloride (Normal Saline -) 250 mls @ 3,000 mls/hr IV PRN PRN PRN Reason: Hypotension during Dialysis Stop: 04/26/18 18:39 Insulin Aspart (Novolog Vial Sliding Scale -) 1 vial SQ ACHS [facility]; Protocol Last Admin: 04/27/18 12:04 Dose: 2 units Insulin Detemir (Levemir Vial) 10 units SQ HS [facility] Last Admin: 04/26/18 21:54 Dose: 10 units Multi-Ingredient Ointment (Zinc Oxide 20% Topical Oint) 1 gm TP DAILY [facility] Last Admin: 04/27/18 09:21 Dose: 1 applic Multivitamins (Total B With C -) 1 each PO DAILY [facility] Last Admin: 04/27/18 09:20 Dose: 1 each Ondansetron HCl (Zofran Injection) 4 mg IVPUSH Q6H PRN PRN Reason: NAUSEA AND/OR VOMITING Quetiapine Fumarate (Seroquel -) 50 mg PO Q12H PRN PRN Reason: AGITATION Last Admin: 04/27/18 09:19 Dose: 50 mg Ranitidine HCl (Zantac -) 150 mg PO DAILY [facility] Last Admin: 04/27/18 09:19 Dose: 150 mg Tamsulosin HCl (Flomax -) 0.4 mg PO [facility] Last Admin: 04/26/18 21:53 Dose: 0.4 mg - Objective Vital Signs: Vital Signs Temperature 98.9 F 04/27/18 10:00 Pulse Rate 65 04/27/18 10:00 Respiratory Rate 20 04/27/18 10:00 Blood Pressure 151/61 04/27/18 10:00 O2 Sat by Pulse Oximetry (%) 98 04/26/18 21:00 Constitutional: Yes: No Distress, Calm, Thin Neck: Yes: Supple Cardiovascular: Yes: Regular Rate and Rhythm Respiratory: Yes: Regular, Diminished Gastrointestinal: Yes: Normal Bowel Sounds, Soft Edema: No Wound/Incision: Yes: Dressing Dry and Intact Labs: CBC, BMP 04/26/18 11:30 04/26/18 11:30 INR, PTT INR 1.20 (0.83-1.09) H 03/28/18 22:22 Problem List - Problems (1) Pre-operative cardiovascular examination Code(s): Z01.810 - ENCOUNTER FOR PREPROCEDURAL CARDIOVASCULAR EXAMINATION (2) Diabetes Code(s): E11.9 - TYPE 2 DIABETES MELLITUS WITHOUT COMPLICATIONS Qualifiers: Diabetes mellitus type: type 1 Diabetes mellitus complication status: with circulatory complication (3) ESRD (end stage renal disease) on dialysis Code(s): N18.6 - END STAGE RENAL DISEASE; Z99.2 - DEPENDENCE ON RENAL DIALYSIS (4) Eschar of heel Code(s): R23.4 - CHANGES IN SKIN TEXTURE (5) CAD (coronary artery disease) Code(s): I25.10 - ATHSCL HEART DISEASE OF [place] CORONARY ARTERY W/O ANG PCTRS Qualifiers: Coronary Disease-Associated Artery/Lesion type: [place] artery [place] vs. transplanted heart: [place] heart Associated angina: without angina Qualified Code(s): I25.10 - Atherosclerotic heart disease of [place] coronary artery without angina pectoris (6) CHF (congestive heart failure) Code(s): I50.9 - HEART FAILURE, UNSPECIFIED (7) CAD (coronary artery disease) Code(s): I25.10 - ATHSCL HEART DISEASE OF [place] CORONARY ARTERY W/O ANG PCTRS Qualifiers: Coronary Disease-Associated Artery/Lesion type: [place] artery [place] vs. transplanted heart: [place] heart Associated angina: without angina Qualified Code(s): I25.10 - Atherosclerotic heart disease of [place] coronary artery without angina pectoris (8) HTN (hypertension) Code(s): I10 - ESSENTIAL (PRIMARY) HYPERTENSION Qualifiers: Hypertension type: essential hypertension Qualified Code(s): I10 - Essential (primary) hypertension (9) Hx of CABG Code(s): Z95.1 - PRESENCE OF AORTOCORONARY BYPASS GRAFT (10) Hypercholesterolemia Code(s): E78.00 - PURE HYPERCHOLESTEROLEMIA, UNSPECIFIED (11) PAD (peripheral artery disease) Code(s): I73.9 - PERIPHERAL VASCULAR DISEASE, UNSPECIFIED (12) S/P coronary artery stent placement Code(s): Z95.5 - PRESENCE OF CORONARY ANGIOPLASTY IMPLANT AND GRAFT Assessment/Plan 12/19/2017 Normal LV size with mild-mod decrease LV fxn, mild STEPHEN, mild TR, MR, can't exclude MV vegetation 1. PAD s/p LE bypass, heel wound (non healing) s/p angioplasty right posterior tibial artery, plan for right TMA vs BKA, left heel wound vac 2. HTN 3. Hypercholesterolemia 4. DM 5. Diastolic/Systolic LV dysfunction with class 0 NYHA classification LV failure 6. CAD s/p CABG, PCI/stent, demand ischemia 7. ESRD on HD 8. Anemia of CKD PLAN: 1. No absolute contraindication in proceeding with vascular intervention in view of absence of ischemic symptoms, decompensated congestive heart failure or malignant arrhythmias. 2. Continue Carvedilol 12.5 bid and Lipitor 40 qhs, Plavix held pre-op (had wound ooze post-debridement treated with plt transfusion), continue ASA 81 qd prei-op to minimize risk of very late stent thrombosis, resume Plavix once post- op hemostasis has been achieved, d/w vascular 3. Empiric antibiotic course and right BKA as per vascular surgery, awaiting consent 4. HD per renal 5. DVT and GI prophylaxis
[2018-04-27] MEDS ORDERED: PT OWN MED DRAWER 7, Y5N ONE (20:34)
[2018-04-27] MEDS: ATORVASTATIN CA 40 MG TABLET (FP) PO SCH (22:03)
[2018-04-27] MEDS: DOCUSATE SODIUM 100 MG CAPSULE (FP) PO SCH (22:03)
[2018-04-27] MEDS: TAMSULOSIN HCL 0.4 MG CAP.ER.24H (FP) PO SCH (22:03)
[2018-04-27] MEDS: INSULIN (LEVEMIR) 100 UNITS/ML UNITS SQ SCH (22:04)
[2018-04-28] MEDS ORDERED: DEXTROSE 5%-WATER - 50 ML IVPB ONE ×2 (02:10→10:48)
[2018-04-28] MEDS ORDERED: PIPERACILLIN/TAZOBACTAM 2.25 GM VIAL IVPB ONE ×2 (02:10→10:48)
[2018-04-28] MEDS: PIPERACILLIN/TAZOB 2.25 GM 2.25 GM in DEXTROSE 5%-WATER - 50 ML IVPB SCH ×3 (02:15→17:15)
[2018-04-28] MEDS: ACETAMINOPHEN 325 MG TABLET (FP) PO PRN (06:10)
[2018-04-28] MEDS: INSULIN SLIDING SCALE (NOVOLOG) 1 VIAL SQ SCH ×4 (06:11→22:24)
--- NOTE | 2018-04-28 10:32 | PN ---
Progress Note (short form) - Note Progress Note: RENAL Pt awake and comfortable Last Vital Signs Temp Pulse Resp BP Pulse Ox 98.4 F 63 16 147/53 L 100 04/28/18 05:51 04/28/18 05:51 04/28/18 05:51 04/28/18 05:51 04/27/18 21:00 lungs clear cvs s1s2 ext no edema, has a left heel ulcer CBC, BMP 04/26/18 11:30 04/26/18 11:30 Impression 1. ESRD 2. anemia 3. HTN 4. Chol 5. DM 6. BPH 7. CAD 8. hypoglycemia 9. CHF 10. syncope 11. depression 12. PVD Plan - HD tomorrow - cont wound care - vascular follow up - monitor hg - epogen for anemia - psych eval appreciated MV
[2018-04-28] MEDS ORDERED: SODIUM CHLORIDE 250 ML IV PRN (10:36)
[2018-04-28] MEDS: CALCIUM ACETATE 667 MG CAPSULE (FP) PO SCH ×3 (10:51→16:43)
[2018-04-28] MEDS: FOLIC ACID 1 MG TABLET (FP) PO SCH (10:52)
[2018-04-28] MEDS: GABAPENTIN 100 MG CAPSULE (FP) PO SCH ×2 (10:52→22:24)
[2018-04-28] MEDS: DIVALPROEX SODIUM 125 MG TABLET E.C. PO SCH ×2 (10:52→22:23)
[2018-04-28] MEDS: CITALOPRAM HYDROBROMIDE 20 MG TABLET (FP) PO SCH (10:52)
[2018-04-28] MEDS: ASPIRIN 81 MG CHEWABLE TABLETS PO SCH (10:52)
[2018-04-28] MEDS: RANITIDINE HCL 150 MG TABLET (FP) PO SCH (10:52)
[2018-04-28] MEDS: VITAMIN B COMPLEX W/C COMBO TABLET (FP) PO SCH (10:52)
[2018-04-28] MEDS: CARVEDILOL 12.5 MG TABLET (FP) PO SCH ×2 (10:52→22:24)
[2018-04-28] MEDS: COLLAGENASE CLOSTRIDIUM HIST. 30 GRAMS TUBE TP SCH (10:53)
[2018-04-28] MEDS: ZINC OXIDE 20% TOPICAL OINTMENT 454 GM JAR TP SCH (10:53)
[2018-04-28] MEDS ORDERED: INSULIN (NOVOLOG) ASPART 100 UNITS/ML 10ML VIAL ONE (11:33)
--- NOTE | 2018-04-28 12:19 | PN ---
Progress Note (short form) - Note Progress Note: - Note Progress Note: Patient seen and examined no distress as per RN , pt's is hesitating to sign consent for surgery Vital Signs - 24 hr Vital Signs - 24 hr 04/27/18 04/27/18 04/27/18 16:55 21:00 22:00 Temperature 98.2 F 98.6 F Pulse Rate 66 62 Respiratory 18 16 16 Rate Blood Pressure 145/59 L 135/51 L O2 Sat by Pulse 100 Oximetry (%) 04/28/18 04/28/18 04/28/18 01:10 05:51 09:00 Temperature 97.5 F L 98.4 F Pulse Rate 64 63 Respiratory 16 16 Rate Blood Pressure 139/56 L 147/53 L O2 Sat by Pulse 100 Oximetry (%) 04/28/18 14:41 Temperature 98.3 F Pulse Rate 64 Respiratory 20 Rate Blood Pressure 135/54 L O2 Sat by Pulse Oximetry (%) Current Medications Generic Name Dose Route Start Last Admin Trade Name Freq PRN Reason Stop Dose Admin Acetaminophen 650 mg 04/22/18 19:12 04/28/18 06:10 Tylenol - PO 650 mg Q6H PRN Administration PAIN LEVEL 1-5 Artificial Tears 1 drop 04/22/18 19:12 Artificial Tears OU Q12H PRN DRY EYES Aspirin 81 mg 04/24/18 17:00 04/28/18 10:52 Asa - PO 81 mg DAILY [facility] Administration Atorvastatin Calcium 40 mg 04/22/18 22:00 04/27/18 22:03 Lipitor - PO 40 mg HS [facility] Administration Calcium Acetate 667 mg 04/23/18 08:00 04/28/18 11:37 Phoslo - PO 667 mg TIDCM [facility] Administration Carvedilol 12.5 mg 04/22/18 22:00 04/28/18 10:52 Coreg - PO 12.5 mg BID [facility] Administration Citalopram Hydrobromide 20 mg 04/23/18 10:00 04/28/18 10:52 Celexa - PO 20 mg DAILY [facility] Administration Collagenase 1 applic 04/23/18 10:00 04/28/18 10:53 Santyl - TP 1 applic DAILY [facility] Administration Protocol Divalproex Sodium 125 mg 04/22/18 22:00 04/28/18 10:52 Depakote - PO 125 mg BID [facility] Administration Docusate Sodium 300 mg 04/22/18 22:00 04/27/18 22:03 Colace - PO 300 mg HS [facility] Administration Folic Acid 1 mg 04/23/18 10:00 04/28/18 10:52 Folic Acid - PO 1 mg DAILY [facility] Administration Gabapentin 100 mg 04/23/18 22:00 04/28/18 10:52 Neurontin - PO 100 mg BID [facility] Administration Haloperidol 2 mg 04/25/18 12:43 Haldol - PO TID PRN AGITATION Piperacillin Sod/Tazobactam 50 mls @ 100 mls/hr 04/23/18 02:00 04/28/18 10:51 Sod 2.25 gm/ Dextrose IVPB 100 mls/hr Q8H-IV [facility] Administration Protocol Sodium Chloride 250 mls @ 3,000 mls/hr 04/28/18 10:36 Normal Saline - IV 04/29/18 10:36 PRN PRN Hypotension during Dialysis Insulin Aspart 1 vial 04/22/18 22:00 04/28/18 11:37 Novolog Vial Sliding Scale - SQ 2 units ACHS [facility] Administration Protocol Insulin Detemir 10 units 04/22/18 22:00 04/27/18 22:04 Levemir Vial SQ 10 units HS [facility] Administration Multi-Ingredient Ointment 1 gm 04/23/18 10:00 04/28/18 10:53 Zinc Oxide 20% Topical Oint TP 1 applic DAILY [facility] Administration Multivitamins 1 each 04/23/18 10:00 04/28/18 10:52 Total B With C - PO 1 each DAILY [facility] Administration Ondansetron HCl 4 mg 04/22/18 19:12 Zofran Injection IVPUSH Q6H PRN NAUSEA AND/OR VOMITING Quetiapine Fumarate 50 mg 04/24/18 17:51 04/27/18 09:19 Seroquel - PO 50 mg Q12H PRN Administration AGITATION Ranitidine HCl 150 mg 04/23/18 10:00 04/28/18 10:52 Zantac - PO 150 mg DAILY [facility] Administration Tamsulosin HCl 0.4 mg 04/22/18 22:00 04/27/18 22:03 Flomax - PO 0.4 mg HS [facility] Administration Laboratory Results - last 24 hr 09/22/18 09/22/18 09/23/18 16:18 22:02 06:09 WBC RBC Hgb Hct MCV MCH MCHC RDW Plt Count MPV PT with INR INR Sodium Potassium Chloride Carbon Dioxide Anion Gap BUN Creatinine Creat Clearance w eGFR POC Glucometer 232 347 294 Random Glucose Calcium Total Bilirubin AST ALT Alkaline Phosphatase Total Protein Albumin 04/28/18 04/28/18 04/28/18 11:31 13:10 13:10 WBC 11.4 H RBC 2.56 L Hgb 8.1 L Hct 24.5 L MCV 95.6 MCH 31.6 MCHC 33.0 RDW 16.7 H Plt Count 297 MPV 6.5 L PT with INR 16.00 H INR 1.42 H Sodium Potassium Chloride Carbon Dioxide Anion Gap BUN Creatinine Creat Clearance w eGFR POC Glucometer 250 Random Glucose Calcium Total Bilirubin AST ALT Alkaline Phosphatase Total Protein Albumin 04/28/18 13:10 WBC RBC Hgb Hct MCV MCH MCHC RDW Plt Count MPV PT with INR INR Sodium 140 Potassium 4.0 Chloride 101 Carbon Dioxide 31 Anion Gap 8 BUN 68 H Creatinine 7.7 H* Creat Clearance w eGFR 6.97 POC Glucometer Random Glucose 230 H Calcium 7.9 L Total Bilirubin 0.3 AST 16 ALT 17 Alkaline Phosphatase 89 Total Protein 6.6 Albumin 2.0 L exam- Constitutional: Yes: No Distress, Comfortable. Neck: Yes: Supple. no jvd Cardiovascular: Yes: Regular Rate and Rhythm Respiratory: Yes: Diminished Gastrointestinal: Yes: Soft/ non tender Edema: No Wound/Incision: Yes: Bilateral heel ulcers -legs are warm ,left - wound vac Neurological: Yes: Alert Psychiatric: Yes: Alert,calm Assessment/Plan drowsy Continue present care abx-- Zosyn bone scan-ve Arterial doppler-- Atherosclerotic disease is hesitating to sign consent ASA and plavix on hold DC fluids s/p PRBC iv antibiotics add bacid Problem List - Problems (1) Diabetes Code(s): E11.9 - TYPE 2 DIABETES MELLITUS WITHOUT COMPLICATIONS Qualifiers: Diabetes mellitus type: type 1 Diabetes mellitus complication status: with circulatory complication (2) ESRD (end stage renal disease) on dialysis Code(s): N18.6 - END STAGE RENAL DISEASE; Z99.2 - DEPENDENCE ON RENAL DIALYSIS (3) Infected pressure ulcer Code(s): L89.90 - PRESSURE ULCER OF UNSPECIFIED SITE, UNSPECIFIED STAGE; L08.9 - LOCAL INFECTION OF THE SKIN AND SUBCUTANEOUS TISSUE, UNSP (4) Syncope Code(s): R55 - SYNCOPE AND COLLAPSE (5) Acute metabolic encephalopathy due to hypoglycemia Code(s): G93.41 - METABOLIC ENCEPHALOPATHY; E16.2 - HYPOGLYCEMIA, UNSPECIFIED (6) Anemia Code(s): D64.9 - ANEMIA, UNSPECIFIED (7) CAD (coronary artery disease) Code(s): I25.10 - ATHSCL HEART DISEASE OF [place] CORONARY ARTERY W/O ANG PCTRS (8) ESRD (end stage renal disease) on dialysis Code(s): N18.6 - END STAGE RENAL DISEASE; Z99.2 - DEPENDENCE ON RENAL DIALYSIS
[2018-04-28 13:26] LABS: HEMATOCRIT 24.5 % (35.4-49); HEMOGLOBIN 8.1 GM/dL (11.7-16.9); MCH 31.6 pg (25.7-33.7); MEAN CELL VOLUME 95.6 fl (80-96); MEAN PLT VOLUME 6.5 fl (7.5-11.1); PLATELET COUNT 297 K/MM3 (134-434); RBC 2.56 M/mm3 (4.00-5.60); RDW 16.7 % (11.9-15.9); WHITE BLOOD COUNT 11.4 K/mm3 (4.0-10.0)
[2018-04-28 14:05] LABS: ALK PHOS 89 U/L (45-117); ANION GAP 8 MMOL/L (8-16); BILIRUBIN,TOTAL 0.3 mg/dL (0.2-1); BLOOD UREA NITROGEN 68 mg/dL (7-18); CALCIUM 7.9 mg/dL (8.5-10.1); CHLORIDE 101 mmol/L (98-107); CO2 31 mmol/L (21-32); GLUCOSE,RANDOM 230 mg/dL (74-106); SGOT/AST 16 U/L (15-37); SGPT/ALT 17 U/L (13-61); SODIUM 140 mmol/L (136-145); TOT PROT 6.6 g/dl (6.4-8.2)
[2018-04-28 14:08] LABS: CREATININE 7.7 mg/dL (0.55-1.3)
[2018-04-28 14:11] LABS: INR 1.42 (0.83-1.09)
[2018-04-28] MEDS: LACTOBACILLUS ACIDOPHILUS 1 TABLET PO SCH (17:15)
[2018-04-28] MEDS ORDERED: PT OWN MED DRAWER 7, Y5N ONE (21:04)
[2018-04-28] MEDS: QUEtiapine FUMARATE 25 MG TABLET (FP) PO PRN (22:23)
[2018-04-28] MEDS: DOCUSATE SODIUM 100 MG CAPSULE (FP) PO SCH (22:23)
[2018-04-28] MEDS: TAMSULOSIN HCL 0.4 MG CAP.ER.24H (FP) PO SCH (22:24)
[2018-04-28] MEDS: ATORVASTATIN CA 40 MG TABLET (FP) PO SCH (22:24)
[2018-04-28] MEDS: INSULIN (LEVEMIR) 100 UNITS/ML UNITS SQ SCH (22:26)
[2018-04-28] MEDS: HALOPERIDOL 1 MG TABLET (FP) PO PRN (23:20)
[2018-04-29] MEDS ORDERED: DEXTROSE 5%-WATER - 50 ML IVPB ONE ×2 (02:24→18:26)
[2018-04-29] MEDS ORDERED: PIPERACILLIN/TAZOBACTAM 2.25 GM VIAL IVPB ONE ×3 (02:24→18:26)
[2018-04-29] MEDS: PIPERACILLIN/TAZOB 2.25 GM 2.25 GM in DEXTROSE 5%-WATER - 50 ML IVPB SCH ×3 (02:29→18:50)
[2018-04-29] MEDS: INSULIN SLIDING SCALE (NOVOLOG) 1 VIAL SQ SCH ×4 (06:37→22:56)
[2018-04-29] MEDS ORDERED: INSULIN (NOVOLOG) ASPART 100 UNITS/ML 10ML VIAL ONE ×2 (06:43→16:18)
--- NOTE | 2018-04-29 07:34 | PN ---
Progress Note (short form) - Note Progress Note: Per notes, family hesitant to sign consent for operative procedure (BKA vs. AKA RLE) Cont wound VAV dressing changes as ordered [id number]. Cont medical management. Wound Care / Vascular Surgery to cont following until decision (either way) has been made. Problem List - Problems (1) Eschar of heel Code(s): R23.4 - CHANGES IN SKIN TEXTURE (2) Diabetes Code(s): E11.9 - TYPE 2 DIABETES MELLITUS WITHOUT COMPLICATIONS Qualifiers: Diabetes mellitus type: type 1 Diabetes mellitus complication status: with circulatory complication (3) ESRD (end stage renal disease) on dialysis Code(s): N18.6 - END STAGE RENAL DISEASE; Z99.2 - DEPENDENCE ON RENAL DIALYSIS
[2018-04-29] MEDS ORDERED: PT OWN MED DRAWER 7, Y5N ONE ×2 (09:34→22:31)
[2018-04-29] MEDS ORDERED: DEXTROSE 5%-WATER - 100 ML IVPB ONE (09:34)
--- NOTE | 2018-04-29 09:46 | PN ---
Progress Note, Physician History of Present Illness: Resting comfortably, denies chest pain or dyspnea, undergoing HD - Current Medication List Current Medications: Active Medications Acetaminophen (Tylenol -) 650 mg PO Q6H PRN PRN Reason: PAIN LEVEL 1-5 Last Admin: 04/28/18 06:10 Dose: 650 mg Artificial Tears (Artificial Tears) 1 drop OU Q12H PRN PRN Reason: DRY EYES Aspirin (Asa -) 81 mg PO DAILY [facility] Last Admin: 04/28/18 10:52 Dose: 81 mg Atorvastatin Calcium (Lipitor -) 40 mg PO HS [facility] Last Admin: 04/28/18 22:24 Dose: 40 mg Calcium Acetate (Phoslo -) 667 mg PO TIDCM [facility] Last Admin: 04/28/18 16:43 Dose: 667 mg Carvedilol (Coreg -) 12.5 mg PO BID [facility] Last Admin: 04/28/18 22:24 Dose: 12.5 mg Citalopram Hydrobromide (Celexa -) 20 mg PO DAILY [facility] Last Admin: 04/28/18 10:52 Dose: 20 mg Collagenase (Santyl -) 1 applic TP DAILY [facility]; Protocol Last Admin: 04/28/18 10:53 Dose: 1 applic Divalproex Sodium (Depakote -) 125 mg PO BID [facility] Last Admin: 04/28/18 22:23 Dose: 125 mg Docusate Sodium (Colace -) 300 mg PO HS [facility] Last Admin: 04/28/18 22:23 Dose: 300 mg Folic Acid (Folic Acid -) 1 mg PO DAILY [facility] Last Admin: 04/28/18 10:52 Dose: 1 mg Gabapentin (Neurontin -) 100 mg PO BID [facility] Last Admin: 04/28/18 22:24 Dose: 100 mg Haloperidol (Haldol -) 2 mg PO TID PRN PRN Reason: AGITATION Last Admin: 04/28/18 23:20 Dose: 2 mg Piperacillin Sod/Tazobactam (Sod 2.25 gm/ Dextrose) 50 mls @ 100 mls/hr IVPB Q8H-IV [facility]; Protocol Last Admin: 04/29/18 02:29 Dose: 100 mls/hr Sodium Chloride (Normal Saline -) 250 mls @ 3,000 mls/hr IV PRN PRN PRN Reason: Hypotension during Dialysis Stop: 04/29/18 10:36 Insulin Aspart (Novolog Vial Sliding Scale -) 1 vial SQ [facility]; Protocol Last Admin: 04/29/18 06:37 Dose: 2 units Insulin Detemir (Levemir Vial) 10 units SQ [facility] Last Admin: 04/28/18 22:26 Dose: 10 units Lactobacillus Acidophilus (Bacid -) 1 tab PO DAILY [facility] Last Admin: 04/28/18 17:15 Dose: 1 tab Multi-Ingredient Ointment (Zinc Oxide 20% Topical Oint) 1 gm TP DAILY [facility] Last Admin: 04/28/18 10:53 Dose: 1 applic Multivitamins (Total B With C -) 1 each PO DAILY [facility] Last Admin: 04/28/18 10:52 Dose: 1 each Ondansetron HCl (Zofran Injection) 4 mg IVPUSH Q6H PRN PRN Reason: NAUSEA AND/OR VOMITING Quetiapine Fumarate (Seroquel -) 50 mg PO Q12H PRN PRN Reason: AGITATION Last Admin: 04/28/18 22:23 Dose: 50 mg Ranitidine HCl (Zantac -) 150 mg PO DAILY [facility] Last Admin: 04/28/18 10:52 Dose: 150 mg Tamsulosin HCl (Flomax -) 0.4 mg PO HS [facility] Last Admin: 04/28/18 22:24 Dose: 0.4 mg - Objective Vital Signs: Vital Signs Temperature 97.9 F 04/29/18 06:00 Pulse Rate 68 04/29/18 06:00 Respiratory Rate 20 04/29/18 06:00 Blood Pressure 145/56 L 04/29/18 06:00 O2 Sat by Pulse Oximetry (%) 100 04/28/18 21:00 Constitutional: Yes: No Distress, Calm, Thin Neck: Yes: Supple Cardiovascular: Yes: Regular Rate and Rhythm Respiratory: Yes: Regular, Diminished, On Nasal O2 Gastrointestinal: Yes: Normal Bowel Sounds, Soft Edema: No Wound/Incision: Yes: Dressing Dry and Intact Labs: CBC, BMP 04/28/18 13:10 04/28/18 13:10 INR, PTT INR 1.42 (0.83-1.09) H 04/28/18 13:10 Problem List - Problems (1) Pre-operative cardiovascular examination Code(s): Z01.810 - ENCOUNTER FOR PREPROCEDURAL CARDIOVASCULAR EXAMINATION (2) Diabetes Code(s): E11.9 - TYPE 2 DIABETES MELLITUS WITHOUT COMPLICATIONS Qualifiers: Diabetes mellitus type: type 1 Diabetes mellitus complication status: with circulatory complication (3) ESRD (end stage renal disease) on dialysis Code(s): N18.6 - END STAGE RENAL DISEASE; Z99.2 - DEPENDENCE ON RENAL DIALYSIS (4) Eschar of heel Code(s): R23.4 - CHANGES IN SKIN TEXTURE (5) CAD (coronary artery disease) Code(s): I25.10 - ATHSCL HEART DISEASE OF [place] CORONARY ARTERY W/O ANG PCTRS Qualifiers: Coronary Disease-Associated Artery/Lesion type: [place] artery [place] vs. transplanted heart: [place] heart Associated angina: without angina Qualified Code(s): I25.10 - Atherosclerotic heart disease of [place] coronary artery without angina pectoris (6) CHF (congestive heart failure) Code(s): I50.9 - HEART FAILURE, UNSPECIFIED (7) CAD (coronary artery disease) Code(s): I25.10 - ATHSCL HEART DISEASE OF [place] CORONARY ARTERY W/O ANG PCTRS Qualifiers: Coronary Disease-Associated Artery/Lesion type: [place] artery [place] vs. transplanted heart: [place] heart Associated angina: without angina Qualified Code(s): I25.10 - Atherosclerotic heart disease of [place] coronary artery without angina pectoris (8) HTN (hypertension) Code(s): I10 - ESSENTIAL (PRIMARY) HYPERTENSION Qualifiers: Hypertension type: essential hypertension Qualified Code(s): I10 - Essential (primary) hypertension (9) Hx of CABG Code(s): Z95.1 - PRESENCE OF AORTOCORONARY BYPASS GRAFT (10) Hypercholesterolemia Code(s): E78.00 - PURE HYPERCHOLESTEROLEMIA, UNSPECIFIED (11) PAD (peripheral artery disease) Code(s): I73.9 - PERIPHERAL VASCULAR DISEASE, UNSPECIFIED (12) S/P coronary artery stent placement Code(s): Z95.5 - PRESENCE OF CORONARY ANGIOPLASTY IMPLANT AND GRAFT Assessment/Plan 12/19/2017 Normal LV size with mild-mod decrease LV fxn, mild STEPHEN, mild TR, MR, can't exclude MV vegetation 1. PAD s/p LE bypass, heel wound (non healing) s/p angioplasty right posterior tibial artery, plan for right TMA vs BKA, left heel wound vac 2. HTN 3. Hypercholesterolemia 4. DM 5. Diastolic/Systolic LV dysfunction with class 0 NYHA classification LV failure 6. CAD s/p CABG, PCI/stent, demand ischemia 7. ESRD on HD 8. Anemia of CKD PLAN: 1. No absolute contraindication in proceeding with vascular intervention in view of absence of ischemic symptoms, decompensated congestive heart failure or malignant arrhythmias. 2. Continue Carvedilol 12.5 bid and Lipitor 40 qhs, Plavix held pre-op (had wound ooze post-debridement treated with plt transfusion), continue ASA 81 qd prei-op to minimize risk of very late stent thrombosis, resume Plavix once post- op hemostasis has been achieved, d/w vascular 3. Empiric antibiotic course, left wound vac care and right BKA as per vascular surgery, awaiting consent 4. HD per renal 5. DVT and GI prophylaxis
[2018-04-29] MEDS: ACETAMINOPHEN 325 MG TABLET (FP) PO PRN (10:53)
--- NOTE | 2018-04-29 11:34 | PN ---
Progress Note (short form) - Note Progress Note: pt seen/ examined. events noted all f/u noted comfortable family not consenting for amputation Vital Signs Temp 98.0 F 04/29/18 09:00 Pulse 63 04/29/18 09:00 Resp 20 04/29/18 09:00 BP 119/59 L 04/29/18 09:00 Pulse Ox 100 04/28/18 21:00 Intake & Output 04/28/18 04/28/18 04/29/18 11:59 23:59 11:59 Intake Total 250 700 Balance 250 700 Weight 154 lb 9.6 oz Intake: IVPB 50 Oral 250 650 Other: Voiding Method Incontinent Incontinent Incontinent # Unmeasured Voids Void 1 1 Bowel Movement Yes Yes Yes # Bowel Movements 1 1 Weight Measurement Method Patient Lift Scale Active Medications Acetaminophen (Tylenol -) 650 mg PO Q6H PRN PRN Reason: PAIN LEVEL 1-5 Last Admin: 04/29/18 10:53 Dose: 650 mg Artificial Tears (Artificial Tears) 1 drop OU Q12H PRN PRN Reason: DRY EYES Aspirin (Asa -) 81 mg PO DAILY [facility] Last Admin: 04/28/18 10:52 Dose: 81 mg Atorvastatin Calcium (Lipitor -) 40 mg PO HS [facility] Last Admin: 04/28/18 22:24 Dose: 40 mg Calcium Acetate (Phoslo -) 667 mg PO TIDCM [facility] Last Admin: 04/28/18 16:43 Dose: 667 mg Carvedilol (Coreg -) 12.5 mg PO BID [facility] Last Admin: 04/28/18 22:24 Dose: 12.5 mg Citalopram Hydrobromide (Celexa -) 20 mg PO DAILY [facility] Last Admin: 04/28/18 10:52 Dose: 20 mg Collagenase (Santyl -) 1 applic TP DAILY [facility]; Protocol Last Admin: 04/28/18 10:53 Dose: 1 applic Divalproex Sodium (Depakote -) 125 mg PO BID [facility] Last Admin: 04/28/18 22:23 Dose: 125 mg Docusate Sodium (Colace -) 300 mg PO HS [facility] Last Admin: 04/28/18 22:23 Dose: 300 mg Folic Acid (Folic Acid -) 1 mg PO DAILY [facility] Last Admin: 04/28/18 10:52 Dose: 1 mg Gabapentin (Neurontin -) 100 mg PO BID [facility] Last Admin: 04/28/18 22:24 Dose: 100 mg Haloperidol (Haldol -) 2 mg PO TID PRN PRN Reason: AGITATION Last Admin: 04/28/18 23:20 Dose: 2 mg Piperacillin Sod/Tazobactam (Sod 2.25 gm/ Dextrose) 50 mls @ 100 mls/hr IVPB Q8H-IV [facility]; Protocol Last Admin: 04/29/18 10:53 Dose: 100 mls/hr Sodium Chloride (Normal Saline -) 250 mls @ 3,000 mls/hr IV PRN PRN PRN Reason: Hypotension during Dialysis Stop: 04/29/18 10:36 Insulin Aspart (Novolog Vial Sliding Scale -) 1 vial SQ ACHS [facility]; Protocol Last Admin: 04/29/18 06:37 Dose: 2 units Insulin Detemir (Levemir Vial) 10 units SQ HS [facility] Last Admin: 04/28/18 22:26 Dose: 10 units Lactobacillus Acidophilus (Bacid -) 1 tab PO DAILY [facility] Last Admin: 04/28/18 17:15 Dose: 1 tab Multi-Ingredient Ointment (Zinc Oxide 20% Topical Oint) 1 gm TP DAILY [facility] Last Admin: 04/28/18 10:53 Dose: 1 applic Multivitamins (Total B With C -) 1 each PO DAILY [facility] Last Admin: 04/28/18 10:52 Dose: 1 each Ondansetron HCl (Zofran Injection) 4 mg IVPUSH Q6H PRN PRN Reason: NAUSEA AND/OR VOMITING Quetiapine Fumarate (Seroquel -) 50 mg PO Q12H PRN PRN Reason: AGITATION Last Admin: 04/28/18 22:23 Dose: 50 mg Ranitidine HCl (Zantac -) 150 mg PO DAILY [facility] Last Admin: 04/28/18 10:52 Dose: 150 mg Tamsulosin HCl (Flomax -) 0.4 mg PO HS [facility] Last Admin: 04/28/18 22:24 Dose: 0.4 mg CBC, BMP 04/28/18 13:10 04/28/18 13:10 Physical Exam. Constitutional: Yes: No Distress, Comfortable. Neck: Yes: Supple. Cardiovascular: Yes: Regular Rate and Rhythm Respiratory: Yes: Diminished Gastrointestinal: Yes: Soft/ non tender Edema: No Wound/Incision: Yes: Bilateral heel ulcers -legs are warm ,left - wound vac Neurological: Yes: Alert Psychiatric: Yes: Alert,calm. Assessment/Plan Will discuss with surgery Continue present care if no surgery - then d/c planning abx - per i/d d/c ? continue other meds will follow Problem List - Problems (1) Diabetes Code(s): E11.9 - TYPE 2 DIABETES MELLITUS WITHOUT COMPLICATIONS Qualifiers: Diabetes mellitus type: type 1 Diabetes mellitus complication status: with circulatory complication (2) ESRD (end stage renal disease) on dialysis Code(s): N18.6 - END STAGE RENAL DISEASE; Z99.2 - DEPENDENCE ON RENAL DIALYSIS (3) Infected pressure ulcer Code(s): L89.90 - PRESSURE ULCER OF UNSPECIFIED SITE, UNSPECIFIED STAGE; L08.9 - LOCAL INFECTION OF THE SKIN AND SUBCUTANEOUS TISSUE, UNSP (4) Syncope Code(s): R55 - SYNCOPE AND COLLAPSE (5) Acute metabolic encephalopathy due to hypoglycemia Code(s): G93.41 - METABOLIC ENCEPHALOPATHY; E16.2 - HYPOGLYCEMIA, UNSPECIFIED (6) Anemia Code(s): D64.9 - ANEMIA, UNSPECIFIED (7) CAD (coronary artery disease) Code(s): I25.10 - ATHSCL HEART DISEASE OF [place] CORONARY ARTERY W/O ANG PCTRS Qualifiers: Coronary Disease-Associated Artery/Lesion type: [place] artery [place] vs. transplanted heart: [place] heart Associated angina: without angina Qualified Code(s): I25.10 - Atherosclerotic heart disease of [place] coronary artery without angina pectoris (8) ESRD (end stage renal disease) on dialysis Code(s): N18.6 - END STAGE RENAL DISEASE; Z99.2 - DEPENDENCE ON RENAL DIALYSIS
[2018-04-29] MEDS ORDERED: EPOETIN ALFA 10,000 UNIT/1 ML VIAL IVPUSH ONE (12:38)
--- NOTE | 2018-04-29 12:41 | PN ---
Progress Note, Physician History of Present Illness: Pt seen and examined at bedside. He is tolerating HD. He denies shortness of breath. - Current Medication List Current Medications: Active Medications Acetaminophen (Tylenol -) 650 mg PO Q6H PRN PRN Reason: PAIN LEVEL 1-5 Last Admin: 04/29/18 10:53 Dose: 650 mg Artificial Tears (Artificial Tears) 1 drop OU Q12H PRN PRN Reason: DRY EYES Aspirin (Asa -) 81 mg PO DAILY [facility] Last Admin: 04/28/18 10:52 Dose: 81 mg Atorvastatin Calcium (Lipitor -) 40 mg PO HS [facility] Last Admin: 04/28/18 22:24 Dose: 40 mg Calcium Acetate (Phoslo -) 667 mg PO TIDCM [facility] Last Admin: 04/28/18 16:43 Dose: 667 mg Carvedilol (Coreg -) 12.5 mg PO BID [facility] Last Admin: 04/28/18 22:24 Dose: 12.5 mg Citalopram Hydrobromide (Celexa -) 20 mg PO DAILY [facility] Last Admin: 04/28/18 10:52 Dose: 20 mg Collagenase (Santyl -) 1 applic TP DAILY [facility]; Protocol Last Admin: 04/28/18 10:53 Dose: 1 applic Divalproex Sodium (Depakote -) 125 mg PO BID [facility] Last Admin: 04/28/18 22:23 Dose: 125 mg Docusate Sodium (Colace -) 300 mg PO HS [facility] Last Admin: 04/28/18 22:23 Dose: 300 mg Folic Acid (Folic Acid -) 1 mg PO DAILY [facility] Last Admin: 04/28/18 10:52 Dose: 1 mg Gabapentin (Neurontin -) 100 mg PO BID [facility] Last Admin: 04/28/18 22:24 Dose: 100 mg Haloperidol (Haldol -) 2 mg PO TID PRN PRN Reason: AGITATION Last Admin: 04/28/18 23:20 Dose: 2 mg Piperacillin Sod/Tazobactam (Sod 2.25 gm/ Dextrose) 50 mls @ 100 mls/hr IVPB Q8H-IV [facility]; Protocol Last Admin: 04/29/18 10:53 Dose: 100 mls/hr Sodium Chloride (Normal Saline -) 250 mls @ 3,000 mls/hr IV PRN PRN PRN Reason: Hypotension during Dialysis Stop: 04/29/18 10:36 Insulin Aspart (Novolog Vial Sliding Scale -) 1 vial SQ [facility]; Protocol Last Admin: 04/29/18 06:37 Dose: 2 units Insulin Detemir (Levemir Vial) 10 units SQ HS [facility] Last Admin: 04/28/18 22:26 Dose: 10 units Lactobacillus Acidophilus (Bacid -) 1 tab PO DAILY [facility] Last Admin: 04/28/18 17:15 Dose: 1 tab Multi-Ingredient Ointment (Zinc Oxide 20% Topical Oint) 1 gm TP DAILY [facility] Last Admin: 04/28/18 10:53 Dose: 1 applic Multivitamins (Total B With C -) 1 each PO DAILY [facility] Last Admin: 04/28/18 10:52 Dose: 1 each Ondansetron HCl (Zofran Injection) 4 mg IVPUSH Q6H PRN PRN Reason: NAUSEA AND/OR VOMITING Quetiapine Fumarate (Seroquel -) 50 mg PO Q12H PRN PRN Reason: AGITATION Last Admin: 04/28/18 22:23 Dose: 50 mg Ranitidine HCl (Zantac -) 150 mg PO DAILY [facility] Last Admin: 04/28/18 10:52 Dose: 150 mg Tamsulosin HCl (Flomax -) 0.4 mg PO HS [facility] Last Admin: 04/28/18 22:24 Dose: 0.4 mg - Objective Vital Signs: Vital Signs Temperature 98.1 F 04/29/18 11:25 Pulse Rate 59 L 04/29/18 12:00 Respiratory Rate 18 04/29/18 12:00 Blood Pressure 135/53 L 04/29/18 12:00 O2 Sat by Pulse Oximetry (%) 100 04/28/18 21:00 Constitutional: Yes: Calm Eyes: Yes: Conjunctiva Clear HENT: Yes: Atraumatic Cardiovascular: Yes: S1, S2 Respiratory: Yes: CTA Bilaterally Gastrointestinal: Yes: Soft Genitourinary: Yes: Incontinence Edema: LLE: Trace, RLE: Trace Wound/Incision: Yes: Dressing Dry and Intact Neurological: Yes: Confusion Labs: CBC, BMP 04/28/18 13:10 04/28/18 13:10 INR, PTT INR 1.42 (0.83-1.09) H 04/28/18 13:10 Problem List - Problems (1) Diabetes Code(s): E11.9 - TYPE 2 DIABETES MELLITUS WITHOUT COMPLICATIONS Qualifiers: Diabetes mellitus type: type 1 Diabetes mellitus complication status: with circulatory complication (2) ESRD (end stage renal disease) on dialysis Code(s): N18.6 - END STAGE RENAL DISEASE; Z99.2 - DEPENDENCE ON RENAL DIALYSIS (3) Syncope Code(s): R55 - SYNCOPE AND COLLAPSE (4) Anemia Code(s): D64.9 - ANEMIA, UNSPECIFIED Assessment/Plan Current Medications Generic Name Dose Route Start Last Admin Trade Name Freq PRN Reason Stop Dose Admin Acetaminophen 650 mg 04/22/18 19:12 04/29/18 10:53 Tylenol - PO 650 mg Q6H PRN Administration PAIN LEVEL 1-5 Artificial Tears 1 drop 04/22/18 19:12 Artificial Tears OU Q12H PRN DRY EYES Aspirin 81 mg 04/24/18 17:00 04/28/18 10:52 Asa - PO 81 mg DAILY [facility] Administration Atorvastatin Calcium 40 mg 04/22/18 22:00 04/28/18 22:24 Lipitor - PO 40 mg HS [facility] Administration Calcium Acetate 667 mg 04/23/18 08:00 04/28/18 16:43 Phoslo - PO 667 mg TIDCM [facility] Administration Carvedilol 12.5 mg 04/22/18 22:00 04/28/18 22:24 Coreg - PO 12.5 mg BID [facility] Administration Citalopram Hydrobromide 20 mg 04/23/18 10:00 04/28/18 10:52 Celexa - PO 20 mg DAILY [facility] Administration Collagenase 1 applic 04/23/18 10:00 04/28/18 10:53 Santyl - TP 1 applic DAILY [facility] Administration Protocol Divalproex Sodium 125 mg 04/22/18 22:00 04/28/18 22:23 Depakote - PO 125 mg BID [facility] Administration Docusate Sodium 300 mg 04/22/18 22:00 04/28/18 22:23 Colace - PO 300 mg HS [facility] Administration Epoetin Jose Francisco 12,000 unit 04/29/18 12:38 Procrit - IVPUSH 04/29/18 12:39 ONCE ONE Folic Acid 1 mg 04/23/18 10:00 04/28/18 10:52 Folic Acid - PO 1 mg DAILY [facility] Administration Gabapentin 100 mg 04/23/18 22:00 04/28/18 22:24 Neurontin - PO 100 mg BID [facility] Administration Haloperidol 2 mg 04/25/18 12:43 04/28/18 23:20 Haldol - PO 2 mg TID PRN Administration AGITATION Piperacillin Sod/Tazobactam 50 mls @ 100 mls/hr 04/23/18 02:00 04/29/18 10:53 Sod 2.25 gm/ Dextrose IVPB 100 mls/hr Q8H-IV [facility] Administration Protocol Sodium Chloride 250 mls @ 3,000 mls/hr 04/28/18 10:36 Normal Saline - IV 04/29/18 10:36 PRN PRN Hypotension during Dialysis Insulin Aspart 1 vial 04/22/18 22:00 04/29/18 06:37 Novolog Vial Sliding Scale - SQ 2 units ACHS [facility] Administration Protocol Insulin Detemir 10 units 04/22/18 22:00 04/28/18 22:26 Levemir Vial SQ 10 units HS [facility] Administration Lactobacillus Acidophilus 1 tab 04/28/18 16:15 04/28/18 17:15 Bacid - PO 1 tab DAILY [facility] Administration Multi-Ingredient Ointment 1 gm 04/23/18 10:00 04/28/18 10:53 Zinc Oxide 20% Topical Oint TP 1 applic DAILY [facility] Administration Multivitamins 1 each 04/23/18 10:00 04/28/18 10:52 Total B With C - PO 1 each DAILY [facility] Administration Ondansetron HCl 4 mg 04/22/18 19:12 Zofran Injection IVPUSH Q6H PRN NAUSEA AND/OR VOMITING Quetiapine Fumarate 50 mg 04/24/18 17:51 04/28/18 22:23 Seroquel - PO 50 mg Q12H PRN Administration AGITATION Ranitidine HCl 150 mg 04/23/18 10:00 04/28/18 10:52 Zantac - PO 150 mg DAILY [facility] Administration Tamsulosin HCl 0.4 mg 04/22/18 22:00 04/28/18 22:24 Flomax - PO 0.4 mg HS [facility] Administration Impression 1. ESRD 2. anemia 3. HTN 4. Chol 5. DM 6. BPH 7. CAD 8. hypoglycemia 9. CHF 10. syncope 11. depression 12. PVD Plan - pt tolerating HD - vascular follow up for plan - monitor hg - epogen for anemia - mental status is improved Dr Donovan
[2018-04-29] MEDS ORDERED: EPOETIN ALFA 10,000 UNIT, EPOETIN ALFA 2,000 UNIT IVPUSH ONE (12:45)
[2018-04-29] MEDS: CALCIUM ACETATE 667 MG CAPSULE (FP) PO SCH ×3 (16:12→18:51)
[2018-04-29] MEDS: CITALOPRAM HYDROBROMIDE 20 MG TABLET (FP) PO SCH (16:13)
[2018-04-29] MEDS: RANITIDINE HCL 150 MG TABLET (FP) PO SCH (16:13)
[2018-04-29] MEDS: CARVEDILOL 12.5 MG TABLET (FP) PO SCH ×2 (16:13→22:57)
[2018-04-29] MEDS: FOLIC ACID 1 MG TABLET (FP) PO SCH (16:13)
[2018-04-29] MEDS: ASPIRIN 81 MG CHEWABLE TABLETS PO SCH (16:13)
[2018-04-29] MEDS: LACTOBACILLUS ACIDOPHILUS 1 TABLET PO SCH (16:13)
[2018-04-29] MEDS: VITAMIN B COMPLEX W/C COMBO TABLET (FP) PO SCH (16:13)
[2018-04-29] MEDS: GABAPENTIN 100 MG CAPSULE (FP) PO SCH ×2 (16:13→22:57)
[2018-04-29] MEDS: ZINC OXIDE 20% TOPICAL OINTMENT 454 GM JAR TP SCH (16:14)
[2018-04-29] MEDS: DIVALPROEX SODIUM 125 MG TABLET E.C. PO SCH ×2 (16:14→22:57)
[2018-04-29] MEDS: COLLAGENASE CLOSTRIDIUM HIST. 30 GRAMS TUBE TP SCH (16:14)
--- NOTE | 2018-04-29 17:44 | PN ---
Progress Note (short form) - Note Progress Note: Afebrile Left heel wound clean with rim of granulation. Center of wound pale. No erythema , minimal drainage. Right heel wound has exposed necrotic calcaneus with no evidence for healing. Imp: Gangrene right heel - amputation needed. Family unwilling to consent. I have called and will speak with them when they call back Left heel wound is stable but not improved. Vascular assessment with CTA and Doppler showed severe arterial calcification and diminished flow to the foot. An angiogram will likely be needed to see if any intervention is possible. Problem List - Problems (1) PAD (peripheral artery disease) Code(s): I73.9 - PERIPHERAL VASCULAR DISEASE, UNSPECIFIED
[2018-04-29] MEDS: INSULIN (LEVEMIR) 100 UNITS/ML UNITS SQ SCH (22:56)
[2018-04-29] MEDS: TAMSULOSIN HCL 0.4 MG CAP.ER.24H (FP) PO SCH (22:56)
[2018-04-29] MEDS: QUEtiapine FUMARATE 25 MG TABLET (FP) PO PRN (22:56)
[2018-04-29] MEDS: ATORVASTATIN CA 40 MG TABLET (FP) PO SCH (22:57)
[2018-04-29] MEDS: DOCUSATE SODIUM 100 MG CAPSULE (FP) PO SCH (22:57)
[2018-04-30] MEDS: HALOPERIDOL 1 MG TABLET (FP) PO PRN ×2 (00:16→22:46)
[2018-04-30] MEDS ORDERED: PIPERACILLIN/TAZOBACTAM 2.25 GM VIAL IVPB ONE ×3 (02:11→16:45)
[2018-04-30] MEDS ORDERED: DEXTROSE 5%-WATER - 50 ML IVPB ONE ×3 (02:11→16:45)
[2018-04-30] MEDS: PIPERACILLIN/TAZOB 2.25 GM 2.25 GM in DEXTROSE 5%-WATER - 50 ML IVPB SCH ×3 (02:14→17:32)
[2018-04-30] MEDS: INSULIN SLIDING SCALE (NOVOLOG) 1 VIAL SQ SCH ×4 (06:08→21:31)
--- NOTE | 2018-04-30 08:44 | PN ---
Progress Note (short form) - Note Progress Note: Exam unchanged. I will speak to about proceeding with left leg angiogram in hopes of improving distal flow. Right leg will still need amputation when they decide to consent. Problem List - Problems (1) PAD (peripheral artery disease) Code(s): I73.9 - PERIPHERAL VASCULAR DISEASE, UNSPECIFIED
[2018-04-30] MEDS: CALCIUM ACETATE 667 MG CAPSULE (FP) PO SCH ×3 (08:49→17:32)
[2018-04-30] MEDS: CARVEDILOL 12.5 MG TABLET (FP) PO SCH ×2 (09:46→21:29)
[2018-04-30] MEDS: GABAPENTIN 100 MG CAPSULE (FP) PO SCH ×2 (09:46→21:29)
[2018-04-30] MEDS: CITALOPRAM HYDROBROMIDE 20 MG TABLET (FP) PO SCH (09:46)
[2018-04-30] MEDS: VITAMIN B COMPLEX W/C COMBO TABLET (FP) PO SCH (09:47)
[2018-04-30] MEDS: ASPIRIN 81 MG CHEWABLE TABLETS PO SCH (09:47)
[2018-04-30] MEDS: LACTOBACILLUS ACIDOPHILUS 1 TABLET PO SCH (09:47)
[2018-04-30] MEDS: RANITIDINE HCL 150 MG TABLET (FP) PO SCH (09:47)
[2018-04-30] MEDS: FOLIC ACID 1 MG TABLET (FP) PO SCH (09:47)
[2018-04-30] MEDS: ZINC OXIDE 20% TOPICAL OINTMENT 454 GM JAR TP SCH (09:48)
[2018-04-30] MEDS: COLLAGENASE CLOSTRIDIUM HIST. 30 GRAMS TUBE TP SCH (09:48)
[2018-04-30] MEDS: DIVALPROEX SODIUM 125 MG TABLET E.C. PO SCH ×2 (09:48→21:29)
--- NOTE | 2018-04-30 12:17 | PN ---
Progress Note (short form) - Note Progress Note: - Note Progress Note: Patient seen and examined no distress as per RN , pt's is hesitating to sign consent for surgery Vital Signs - 24 hr Vital Signs - 24 hr 04/30/18 04/30/18 04/30/18 01:26 05:55 09:00 Temperature 98.5 F 98.6 F Pulse Rate 67 60 Respiratory 20 20 20 Rate Blood Pressure 119/51 L 126/57 L O2 Sat by Pulse 100 Oximetry (%) 04/30/18 04/30/18 04/30/18 10:00 14:42 18:59 Temperature 98.6 F 97.7 F 97.5 F L Pulse Rate 59 L 65 65 Respiratory 20 20 20 Rate Blood Pressure 121/57 L 129/49 L 142/54 L O2 Sat by Pulse Oximetry (%) Current Medications Generic Name Dose Route Start Last Admin Trade Name Freq PRN Reason Stop Dose Admin Acetaminophen 650 mg 04/22/18 19:12 04/29/18 10:53 Tylenol - PO 650 mg Q6H PRN Administration PAIN LEVEL 1-5 Artificial Tears 1 drop 04/22/18 19:12 Artificial Tears OU Q12H PRN DRY EYES Aspirin 81 mg 04/24/18 17:00 04/30/18 09:47 Asa - PO 81 mg DAILY [facility] Administration Atorvastatin Calcium 40 mg 04/22/18 22:00 04/30/18 21:28 Lipitor - PO 40 mg HS [facility] Administration Calcium Acetate 667 mg 04/23/18 08:00 04/30/18 17:32 Phoslo - PO 667 mg TIDCM [facility] Administration Carvedilol 12.5 mg 04/22/18 22:00 04/30/18 21:29 Coreg - PO 12.5 mg BID [facility] Administration Citalopram Hydrobromide 20 mg 04/23/18 10:00 04/30/18 09:46 Celexa - PO 20 mg DAILY [facility] Administration Collagenase 1 applic 04/23/18 10:00 04/30/18 09:48 Santyl - TP 1 applic DAILY [facility] Administration Protocol Divalproex Sodium 125 mg 04/22/18 22:00 04/30/18 21:29 Depakote - PO 125 mg BID [facility] Administration Docusate Sodium 300 mg 04/22/18 22:00 04/30/18 21:28 Colace - PO 300 mg HS [facility] Administration Epoetin Jose Francisco 12,000 unit 05/01/18 16:41 Epogen - IVPUSH 05/01/18 16:42 ONCE ONE Folic Acid 1 mg 04/23/18 10:00 04/30/18 09:47 Folic Acid - PO 1 mg DAILY [facility] Administration Gabapentin 100 mg 04/23/18 22:00 04/30/18 21:29 Neurontin - PO 100 mg BID [facility] Administration Haloperidol 2 mg 04/25/18 12:43 04/30/18 00:16 Haldol - PO 2 mg TID PRN Administration AGITATION Piperacillin Sod/Tazobactam 50 mls @ 100 mls/hr 04/23/18 02:00 04/30/18 17:32 Sod 2.25 gm/ Dextrose IVPB 100 mls/hr Q8H-IV [facility] Administration Protocol Sodium Chloride 250 mls @ 3,000 mls/hr 04/30/18 16:41 Normal Saline - IV 05/01/18 16:41 PRN PRN Hypotension during Dialysis Insulin Aspart 1 vial 04/22/18 22:00 04/30/18 21:31 Novolog Vial Sliding Scale - SQ Not Given ACHS [facility] Protocol Insulin Detemir 10 units 04/22/18 22:00 04/29/18 22:56 Levemir Vial SQ 10 units HS [facility] Administration Lactobacillus Acidophilus 1 tab 04/28/18 16:15 04/30/18 09:47 Bacid - PO 1 tab DAILY [facility] Administration Multi-Ingredient Ointment 1 gm 04/23/18 10:00 04/30/18 09:48 Zinc Oxide 20% Topical Oint TP 1 applic DAILY [facility] Administration Multivitamins 1 each 04/23/18 10:00 04/30/18 09:47 Total B With C - PO 1 each DAILY [facility] Administration Ondansetron HCl 4 mg 04/22/18 19:12 Zofran Injection IVPUSH Q6H PRN NAUSEA AND/OR VOMITING Quetiapine Fumarate 50 mg 04/24/18 17:51 04/29/18 22:56 Seroquel - PO 50 mg Q12H PRN Administration AGITATION Ranitidine HCl 150 mg 04/23/18 10:00 04/30/18 09:47 Zantac - PO 150 mg DAILY [facility] Administration Tamsulosin HCl 0.4 mg 04/22/18 22:00 09/25/18 21:30 Flomax - PO 0.4 mg HS [facility] Administration Laboratory Results - last 24 hr 04/29/18 04/29/18 04/30/18 11:30 22:44 05:58 POC Glucometer 375 136 Hep C Ab Diagnostic 0.1 Liver Fibrosis Interp 04/30/18 04/30/18 11:11 16:28 POC Glucometer 141 299 Hep C Ab Diagnostic Liver Fibrosis Interp exam- Constitutional: Yes: No Distress, Comfortable. Neck: Yes: Supple. no jvd Cardiovascular: Yes: Regular Rate and Rhythm Respiratory: Yes: Diminished Gastrointestinal: Yes: Soft/ non tender Edema: No Wound/Incision: Yes: Bilateral heel ulcers -legs are warm ,left - wound vac Neurological: Yes: Alert Psychiatric: Yes: Alert,calm Assessment/Plan drowsy Continue present care abx-- Zosyn bone scan-ve Arterial doppler-- Atherosclerotic disease is hesitating to sign consent ASA and plavix on hold DC fluids s/p PRBC iv antibiotics add bacid angiogram left leg tomorrow Problem List - Problems (1) Diabetes Code(s): E11.9 - TYPE 2 DIABETES MELLITUS WITHOUT COMPLICATIONS Qualifiers: Diabetes mellitus type: type 1 Diabetes mellitus complication status: with circulatory complication (2) ESRD (end stage renal disease) on dialysis Code(s): N18.6 - END STAGE RENAL DISEASE; Z99.2 - DEPENDENCE ON RENAL DIALYSIS (3) Infected pressure ulcer Code(s): L89.90 - PRESSURE ULCER OF UNSPECIFIED SITE, UNSPECIFIED STAGE; L08.9 - LOCAL INFECTION OF THE SKIN AND SUBCUTANEOUS TISSUE, UNSP (4) Syncope Code(s): R55 - SYNCOPE AND COLLAPSE (5) Acute metabolic encephalopathy due to hypoglycemia Code(s): G93.41 - METABOLIC ENCEPHALOPATHY; E16.2 - HYPOGLYCEMIA, UNSPECIFIED (6) Anemia Code(s): D64.9 - ANEMIA, UNSPECIFIED (7) CAD (coronary artery disease) Code(s): I25.10 - ATHSCL HEART DISEASE OF [place] CORONARY ARTERY W/O ANG PCTRS (8) ESRD (end stage renal disease) on dialysis Code(s): N18.6 - END STAGE RENAL DISEASE; Z99.2 - DEPENDENCE ON RENAL DIALYSIS
[2018-04-30] MEDS ORDERED: SODIUM CHLORIDE 250 ML IV PRN (16:41)
--- NOTE | 2018-04-30 16:41 | PN ---
Progress Note, Physician History of Present Illness: Pt seen and examined at bedside. He appears comfortable. - Current Medication List Current Medications: Active Medications Acetaminophen (Tylenol -) 650 mg PO Q6H PRN PRN Reason: PAIN LEVEL 1-5 Last Admin: 04/29/18 10:53 Dose: 650 mg Artificial Tears (Artificial Tears) 1 drop OU Q12H PRN PRN Reason: DRY EYES Aspirin (Asa -) 81 mg PO DAILY [facility] [place] Last Admin: 04/30/18 09:47 Dose: 81 mg Atorvastatin Calcium (Lipitor -) 40 mg PO HS [facility] [place] Last Admin: 04/29/18 22:57 Dose: 40 mg Calcium Acetate (Phoslo -) 667 mg PO TIDCM [facility] [place] Last Admin: 04/30/18 13:30 Dose: 667 mg Carvedilol (Coreg -) 12.5 mg PO BID [facility] [place] Last Admin: 04/30/18 09:46 Dose: 12.5 mg Citalopram Hydrobromide (Celexa -) 20 mg PO DAILY [facility] [place] Last Admin: 04/30/18 09:46 Dose: 20 mg Collagenase (Santyl -) 1 applic TP DAILY [facility] [place]; Protocol Last Admin: 04/30/18 09:48 Dose: 1 applic Divalproex Sodium (Depakote -) 125 mg PO BID [facility] [place] Last Admin: 04/30/18 09:48 Dose: 125 mg Docusate Sodium (Colace -) 300 mg PO HS [facility] [place] Last Admin: 04/29/18 22:57 Dose: 300 mg Folic Acid (Folic Acid -) 1 mg PO DAILY [facility] [place] Last Admin: 04/30/18 09:47 Dose: 1 mg Gabapentin (Neurontin -) 100 mg PO BID [facility] [place] Last Admin: 04/30/18 09:46 Dose: 100 mg Haloperidol (Haldol -) 2 mg PO TID PRN PRN Reason: AGITATION Last Admin: 04/30/18 00:16 Dose: 2 mg Piperacillin Sod/Tazobactam (Sod 2.25 gm/ Dextrose) 50 mls @ 100 mls/hr IVPB Q8H-IV [facility] [place]; Protocol Last Admin: 04/30/18 09:46 Dose: 100 mls/hr Insulin Aspart (Novolog Vial Sliding Scale -) 1 vial SQ ACHS [facility] [place]; Protocol Last Admin: 04/30/18 11:48 Dose: Not Given Insulin Detemir (Levemir Vial) 10 units SQ HS [facility] [place] Last Admin: 04/29/18 22:56 Dose: 10 units Lactobacillus Acidophilus (Bacid -) 1 tab PO DAILY [facility] [place] Last Admin: 04/30/18 09:47 Dose: 1 tab Multi-Ingredient Ointment (Zinc Oxide 20% Topical Oint) 1 gm TP DAILY [facility] [place] Last Admin: 04/30/18 09:48 Dose: 1 applic Multivitamins (Total B With C -) 1 each PO DAILY [facility] [place] Last Admin: 04/30/18 09:47 Dose: 1 each Ondansetron HCl (Zofran Injection) 4 mg IVPUSH Q6H PRN PRN Reason: NAUSEA AND/OR VOMITING Quetiapine Fumarate (Seroquel -) 50 mg PO Q12H PRN PRN Reason: AGITATION Last Admin: 04/29/18 22:56 Dose: 50 mg Ranitidine HCl (Zantac -) 150 mg PO DAILY [facility] [place] Last Admin: 04/30/18 09:47 Dose: 150 mg Tamsulosin HCl (Flomax -) 0.4 mg PO HS [facility] [place] Last Admin: 04/29/18 22:56 Dose: 0.4 mg - Objective Vital Signs: Vital Signs Temperature 97.7 F 04/30/18 14:42 Pulse Rate 65 04/30/18 14:42 Respiratory Rate 20 04/30/18 14:42 Blood Pressure 129/49 L 04/30/18 14:42 O2 Sat by Pulse Oximetry (%) 100 04/30/18 09:00 Constitutional: Yes: Calm Eyes: Yes: Conjunctiva Clear HENT: Yes: Atraumatic Cardiovascular: Yes: S1, S2 Respiratory: Yes: CTA Bilaterally Gastrointestinal: Yes: Normal Bowel Sounds, Soft Genitourinary: Yes: Incontinence Musculoskeletal: Yes: Muscle Weakness Edema: No Wound/Incision: Yes: Dressing Dry and Intact Neurological: Yes: Confusion Labs: CBC, BMP 04/28/18 13:10 04/28/18 13:10 INR, PTT INR 1.42 (0.83-1.09) H 04/28/18 13:10 Problem List - Problems (1) Diabetes Code(s): E11.9 - TYPE 2 DIABETES MELLITUS WITHOUT COMPLICATIONS Qualifiers: Diabetes mellitus type: type 1 Diabetes mellitus complication status: with circulatory complication (2) ESRD (end stage renal disease) on dialysis Code(s): N18.6 - END STAGE RENAL DISEASE; Z99.2 - DEPENDENCE ON RENAL DIALYSIS (3) Syncope Code(s): R55 - SYNCOPE AND COLLAPSE (4) Anemia Code(s): D64.9 - ANEMIA, UNSPECIFIED Assessment/Plan Current Medications Generic Name Dose Route Start Last Admin Trade Name Freq PRN Reason Stop Dose Admin Acetaminophen 650 mg 04/22/18 19:12 04/29/18 10:53 Tylenol - PO 650 mg Q6H PRN Administration PAIN LEVEL 1-5 Artificial Tears 1 drop 04/22/18 19:12 Artificial Tears OU Q12H PRN DRY EYES Aspirin 81 mg 04/24/18 17:00 04/30/18 09:47 Asa - PO 81 mg DAILY [facility] Administration Atorvastatin Calcium 40 mg 04/22/18 22:00 04/29/18 22:57 Lipitor - PO 40 mg HS [facility] Administration Calcium Acetate 667 mg 04/23/18 08:00 04/30/18 13:30 Phoslo - PO 667 mg TIDCM [facility] Administration Carvedilol 12.5 mg 04/22/18 22:00 04/30/18 09:46 Coreg - PO 12.5 mg BID [facility] Administration Citalopram Hydrobromide 20 mg 04/23/18 10:00 04/30/18 09:46 Celexa - PO 20 mg DAILY [facility] Administration Collagenase 1 applic 04/23/18 10:00 04/30/18 09:48 Santyl - TP 1 applic DAILY [facility] Administration Protocol Divalproex Sodium 125 mg 04/22/18 22:00 04/30/18 09:48 Depakote - PO 125 mg BID [facility] Administration Docusate Sodium 300 mg 04/22/18 22:00 04/29/18 22:57 Colace - PO 300 mg HS [facility] Administration Folic Acid 1 mg 04/23/18 10:00 04/30/18 09:47 Folic Acid - PO 1 mg DAILY [facility] Administration Gabapentin 100 mg 04/23/18 22:00 04/30/18 09:46 Neurontin - PO 100 mg BID [facility] Administration Haloperidol 2 mg 04/25/18 12:43 04/30/18 00:16 Haldol - PO 2 mg TID PRN Administration AGITATION Piperacillin Sod/Tazobactam 50 mls @ 100 mls/hr 04/23/18 02:00 04/30/18 09:46 Sod 2.25 gm/ Dextrose IVPB 100 mls/hr Q8H-IV [facility] Administration Protocol Insulin Aspart 1 vial 04/22/18 22:00 04/30/18 11:48 Novolog Vial Sliding Scale - SQ Not Given ACHS [facility] Protocol Insulin Detemir 10 units 04/22/18 22:00 04/29/18 22:56 Levemir Vial SQ 10 units HS [facility] Administration Lactobacillus Acidophilus 1 tab 04/28/18 16:15 04/30/18 09:47 Bacid - PO 1 tab DAILY [facility] Administration Multi-Ingredient Ointment 1 gm 04/23/18 10:00 04/30/18 09:48 Zinc Oxide 20% Topical Oint TP 1 applic DAILY [facility] Administration Multivitamins 1 each 04/23/18 10:00 04/30/18 09:47 Total B With C - PO 1 each DAILY [facility] Administration Ondansetron HCl 4 mg 04/22/18 19:12 Zofran Injection IVPUSH Q6H PRN NAUSEA AND/OR VOMITING Quetiapine Fumarate 50 mg 04/24/18 17:51 04/29/18 22:56 Seroquel - PO 50 mg Q12H PRN Administration AGITATION Ranitidine HCl 150 mg 04/23/18 10:00 04/30/18 09:47 Zantac - PO 150 mg DAILY [facility] Administration Tamsulosin HCl 0.4 mg 04/22/18 22:00 04/29/18 22:56 Flomax - PO 0.4 mg HS [facility] Administration Impression 1. ESRD 2. anemia 3. HTN 4. Chol 5. DM 6. BPH 7. CAD 8. hypoglycemia 9. CHF 10. syncope 11. depression 12. PVD Plan - HD in am - vascular input appreciated - family have not consented yet - monitor hg - epogen for anemia - cont wound care Dr Donovan
[2018-04-30] MEDS ORDERED: INSULIN (NOVOLOG) ASPART 100 UNITS/ML 10ML VIAL ONE (16:45)
[2018-04-30] MEDS ORDERED: Insulin (LOG) Aspart 100 UNITS/ML VIAL SQ ONE (21:02)
[2018-04-30] MEDS: DOCUSATE SODIUM 100 MG CAPSULE (FP) PO SCH (21:28)
[2018-04-30] MEDS: ATORVASTATIN CA 40 MG TABLET (FP) PO SCH (21:28)
[2018-04-30] MEDS: TAMSULOSIN HCL 0.4 MG CAP.ER.24H (FP) PO SCH (21:30)
[2018-04-30] MEDS: INSULIN (LEVEMIR) 100 UNITS/ML UNITS SQ SCH (22:31)
[2018-05-01 00:07] LABS: HBSAG SCREEN Negative (Negative); HEP A AB, IGM Negative (Negative); HEP B CORE AB, TOT Negative (Negative)
[2018-05-01] MEDS ORDERED: PIPERACILLIN/TAZOBACTAM 2.25 GM VIAL IVPB ONE ×2 (02:27→09:27)
[2018-05-01] MEDS ORDERED: DEXTROSE 5%-WATER - 50 ML IVPB ONE ×2 (02:28→09:27)
[2018-05-01] MEDS: PIPERACILLIN/TAZOB 2.25 GM 2.25 GM in DEXTROSE 5%-WATER - 50 ML IVPB SCH ×3 (02:36→19:33)
[2018-05-01] MEDS: INSULIN SLIDING SCALE (NOVOLOG) 1 VIAL SQ SCH ×4 (06:34→21:58)
[2018-05-01] MEDS: CALCIUM ACETATE 667 MG CAPSULE (FP) PO SCH ×3 (09:26→18:25)
--- NOTE | 2018-05-01 11:30 | PN ---
Progress Note (short form) - Note Progress Note: - Note Progress Note: pt s/p angiogram no distress undergoing dialysis Current Medications Generic Name Dose Route Start Last Admin Trade Name Freq PRN Reason Stop Dose Admin Acetaminophen 650 mg 04/22/18 19:12 04/29/18 10:53 Tylenol - PO 650 mg Q6H PRN Administration PAIN LEVEL 1-5 Artificial Tears 1 drop 04/22/18 19:12 Artificial Tears OU Q12H PRN DRY EYES Aspirin 81 mg 04/24/18 17:00 04/30/18 09:47 Asa - PO 81 mg DAILY [facility] Administration Atorvastatin Calcium 40 mg 04/22/18 22:00 04/30/18 21:28 Lipitor - PO 40 mg HS [facility] Administration Calcium Acetate 667 mg 04/23/18 08:00 04/30/18 17:32 Phoslo - PO 667 mg TIDCM [facility] Administration Carvedilol 12.5 mg 04/22/18 22:00 04/30/18 21:29 Coreg - PO 12.5 mg BID [facility] Administration Citalopram Hydrobromide 20 mg 04/23/18 10:00 04/30/18 09:46 Celexa - PO 20 mg DAILY [facility] Administration Collagenase 1 applic 04/23/18 10:00 04/30/18 09:48 Santyl - TP 1 applic DAILY [facility] Administration Protocol Divalproex Sodium 125 mg 04/22/18 22:00 04/30/18 21:29 Depakote - PO 125 mg BID [facility] Administration Docusate Sodium 300 mg 04/22/18 22:00 04/30/18 21:28 Colace - PO 300 mg HS [facility] Administration Epoetin Jose Francisco 12,000 unit 05/01/18 16:41 Epogen - IVPUSH 05/01/18 16:42 ONCE ONE Folic Acid 1 mg 04/23/18 10:00 04/30/18 09:47 Folic Acid - PO 1 mg DAILY [facility] Administration Gabapentin 100 mg 04/23/18 22:00 04/30/18 21:29 Neurontin - PO 100 mg BID [facility] Administration Haloperidol 2 mg 04/25/18 12:43 04/30/18 00:16 Haldol - PO 2 mg TID PRN Administration AGITATION Piperacillin Sod/Tazobactam 50 mls @ 100 mls/hr 04/23/18 02:00 04/30/18 17:32 Sod 2.25 gm/ Dextrose IVPB 100 mls/hr Q8H-IV [facility] Administration Protocol Sodium Chloride 250 mls @ 3,000 mls/hr 04/30/18 16:41 Normal Saline - IV 05/01/18 16:41 PRN PRN Hypotension during Dialysis Insulin Aspart 1 vial 04/22/18 22:00 04/30/18 21:31 Novolog Vial Sliding Scale - SQ Not Given ACHS [facility] Protocol Insulin Detemir 10 units 04/22/18 22:00 04/29/18 22:56 Levemir Vial SQ 10 units HS [facility] Administration Lactobacillus Acidophilus 1 tab 04/28/18 16:15 04/30/18 09:47 Bacid - PO 1 tab DAILY [facility] Administration Multi-Ingredient Ointment 1 gm 04/23/18 10:00 04/30/18 09:48 Zinc Oxide 20% Topical Oint TP 1 applic DAILY [facility] Administration Multivitamins 1 each 04/23/18 10:00 04/30/18 09:47 Total B With C - PO 1 each DAILY [facility] Administration Ondansetron HCl 4 mg 04/22/18 19:12 Zofran Injection IVPUSH Q6H PRN NAUSEA AND/OR VOMITING Quetiapine Fumarate 50 mg 04/24/18 17:51 04/29/18 22:56 Seroquel - PO 50 mg Q12H PRN Administration AGITATION Ranitidine HCl 150 mg 04/23/18 10:00 04/30/18 09:47 Zantac - PO 150 mg DAILY [facility] Administration Tamsulosin HCl 0.4 mg 04/22/18 22:00 04/30/18 21:30 Flomax - PO 0.4 mg HS [facility] Administration exam- Constitutional: Yes: No Distress, Comfortable. Neck: Yes: Supple. no jvd Cardiovascular: Yes: Regular Rate and Rhythm Respiratory: Yes: Diminished Gastrointestinal: Yes: Soft/ non tender Edema: No Wound/Incision: Yes: Bilateral heel ulcers -legs are warm ,left - wound vac Neurological: Yes: Alert Psychiatric: Yes: Alert,calm Assessment/Plan drowsy Continue present care abx-- Zosyn bone scan-ve Arterial doppler-- Atherosclerotic disease possible amputation Sunday as per Surgeon - spoke with PA ASA and plavix on hold DC fluids s/p PRBC iv antibiotics add bacid s/o left angiogram Problem List - Problems (1) Diabetes Code(s): E11.9 - TYPE 2 DIABETES MELLITUS WITHOUT COMPLICATIONS Qualifiers: Diabetes mellitus type: type 1 Diabetes mellitus complication status: with circulatory complication (2) ESRD (end stage renal disease) on dialysis Code(s): N18.6 - END STAGE RENAL DISEASE; Z99.2 - DEPENDENCE ON RENAL DIALYSIS (3) Infected pressure ulcer Code(s): L89.90 - PRESSURE ULCER OF UNSPECIFIED SITE, UNSPECIFIED STAGE; L08.9 - LOCAL INFECTION OF THE SKIN AND SUBCUTANEOUS TISSUE, UNSP (4) Syncope Code(s): R55 - SYNCOPE AND COLLAPSE (5) Acute metabolic encephalopathy due to hypoglycemia Code(s): G93.41 - METABOLIC ENCEPHALOPATHY; E16.2 - HYPOGLYCEMIA, UNSPECIFIED (6) Anemia Code(s): D64.9 - ANEMIA, UNSPECIFIED (7) CAD (coronary artery disease) Code(s): I25.10 - ATHSCL HEART DISEASE OF [place] CORONARY ARTERY W/O ANG PCTRS (8) ESRD (end stage renal disease) on dialysis Code(s): N18.6 - END STAGE RENAL DISEASE; Z99.2 - DEPENDENCE ON RENAL DIALYSIS
[2018-05-01] MEDS ORDERED: MIDAZOLAM HCL 2 MG/2 ML SINGLE DOSE VIAL ONE (12:25)
[2018-05-01] MEDS ORDERED: LIDOCAINE HCL 2% (50ML VIAL) NR ONE (13:05)
[2018-05-01] MEDS ORDERED: HEPARIN NA (PORCINE) 5,000 UNITS/ML 1ML VIAL ONE ×2 (13:08→13:48)
[2018-05-01] MEDS ORDERED: PROPOFOL 20 ML ONE (13:49)
[2018-05-01] MEDS: ASPIRIN 81 MG CHEWABLE TABLETS PO SCH (13:57)
--- NOTE | 2018-05-01 14:13 | OP ---
Operative Note - Note: Operative Date: 05/01/18 Pre-Operative Diagnosis: Left heel ulcer, PAD Operation: Ultrasound guided cannulation left femoral artery. Angiogram left leg. Angioplasty anterior tibial artery Findings: Patent left femoral and popliteal arteries. Patent peroneal to ankle with collaterals to dorsalis pedis. No plantar vessels seen. Occlusion PT and AT with distal reconstitution of a small DPA. Post-Operative Diagnosis: Same as Pre-op Surgeon: Augustin Schofield Anesthesiologist/ONCOLOGY SPECIALIST: Viral Saunders Anesthesia: Fractional Estimated Blood Loss (mls): 10
[2018-05-01] MEDS ORDERED: ONDANSETRON 4 MG/2 ML VIAL IVPUSH PRN ×2 (14:26→14:33)
[2018-05-01] MEDS ORDERED: ACETAMINOPHEN 325 MG TABLET (FP) PO PRN (14:33)
[2018-05-01] MEDS ORDERED: ARTIFICIAL TEARS (POLYVINYL ALCOHOL) OPTH DROPS OU PRN (14:33)
[2018-05-01] MEDS ORDERED: SODIUM CHLORIDE 250 ML IV PRN (14:33)
[2018-05-01] MEDS ORDERED: EPOETIN ALFA 10,000 UNIT/1 ML VIAL IVPUSH ONE (15:45)
[2018-05-01 15:52] LABS: HEMATOCRIT 24.6 % (35.4-49); HEMOGLOBIN 8.2 GM/dL (11.7-16.9); MCH 31.5 pg (25.7-33.7); MCHC 33.2 g/dl (32.0-35.9); MEAN CELL VOLUME 94.8 fl (80-96); MEAN PLT VOLUME 6.8 fl (7.5-11.1); PLATELET COUNT 292 K/MM3 (134-434); RBC 2.59 M/mm3 (4.00-5.60); WHITE BLOOD COUNT 9.8 K/mm3 (4.0-10.0)
[2018-05-01] MEDS ORDERED: EPOETIN ALFA 2,000 UNIT/1 ML VIAL IVPUSH ONE (16:41)
[2018-05-01 16:56] LABS: ANION GAP 12 MMOL/L (8-16); BLOOD UREA NITROGEN 77 mg/dL (7-18); CALCIUM 8.2 mg/dL (8.5-10.1); CHLORIDE 102 mmol/L (98-107); CO2 26 mmol/L (21-32); CREATININE 7.1 mg/dL (0.55-1.3); GLUCOSE,RANDOM 107 mg/dL (74-106); SODIUM 140 mmol/L (136-145)
--- NOTE | 2018-05-01 16:59 | PN ---
Progress Note, Physician History of Present Illness: Pt seen and examined at bedside. He is awake and alert. I saw him in pre-op earlier today before he went for the angio. at bedside and care was discussed with her. - Current Medication List Current Medications: Active Medications Acetaminophen (Tylenol -) 650 mg PO Q6H PRN PRN Reason: PAIN LEVEL 1-5 Artificial Tears (Artificial Tears) 1 drop OU Q12H PRN PRN Reason: DRY EYES Aspirin (Asa -) 81 mg PO DAILY [facility] Atorvastatin Calcium (Lipitor -) 40 mg PO HS [facility] Calcium Acetate (Phoslo -) 667 mg PO TIDCM [facility] Carvedilol (Coreg -) 12.5 mg PO BID [facility] Citalopram Hydrobromide (Celexa -) 20 mg PO DAILY [facility] Collagenase (Santyl -) 1 applic TP DAILY [facility]; Protocol Divalproex Sodium (Depakote -) 125 mg PO BID [facility] Docusate Sodium (Colace -) 300 mg PO HS [facility] Fentanyl (Sublimaze Injection -) 25 mcg IVPUSH [id number] PRN PRN Reason: PAIN-PACU ORDER X 4 DOSES ONLY Folic Acid (Folic Acid -) 1 mg PO DAILY [facility] Gabapentin (Neurontin -) 100 mg PO BID [facility] Haloperidol (Haldol -) 2 mg PO TID PRN PRN Reason: AGITATION Piperacillin Sod/Tazobactam (Sod 2.25 gm/ Dextrose) 50 mls @ 100 mls/hr IVPB Q8H-IV [facility]; Protocol Insulin Aspart (Novolog Vial Sliding Scale -) 1 vial SQ ACHS [facility]; Protocol Insulin Detemir (Levemir Vial) 10 units SQ HS [facility] Lactobacillus Acidophilus (Bacid -) 1 tab PO DAILY [facility] Multi-Ingredient Ointment (Zinc Oxide 20% Topical Oint) 1 gm TP DAILY [facility] Multivitamins (Total B With C -) 1 each PO DAILY [facility] Ondansetron HCl (Zofran Injection) 4 mg IVPUSH Q6H PRN PRN Reason: NAUSEA AND/OR VOMITING Ondansetron HCl (Zofran Injection) 4 mg IVPUSH Q6H PRN PRN Reason: NAUSEA AND/OR VOMITING Quetiapine Fumarate (Seroquel -) 50 mg PO Q12H PRN PRN Reason: AGITATION Ranitidine HCl (Zantac -) 150 mg PO DAILY [facility] Tamsulosin HCl (Flomax -) 0.4 mg PO HS [facility] - Objective Vital Signs: Vital Signs Temperature 97.6 F 05/01/18 15:15 Pulse Rate 58 L 05/01/18 15:50 Respiratory Rate 18 05/01/18 15:50 Blood Pressure 147/62 05/01/18 15:50 O2 Sat by Pulse Oximetry (%) 98 05/01/18 14:50 Constitutional: Yes: Calm Eyes: Yes: Conjunctiva Clear HENT: Yes: Atraumatic Neck: Yes: Supple Cardiovascular: Yes: S1, S2 Respiratory: Yes: CTA Bilaterally Gastrointestinal: Yes: Normal Bowel Sounds, Soft Genitourinary: Yes: Incontinence Edema: No Wound/Incision: Yes: Dressing Dry and Intact Neurological: Yes: Confusion Labs: CBC, BMP 05/01/18 15:30 INR, PTT INR 1.42 (0.83-1.09) H 04/28/18 13:10 Problem List - Problems (1) Diabetes Code(s): E11.9 - TYPE 2 DIABETES MELLITUS WITHOUT COMPLICATIONS Qualifiers: Diabetes mellitus type: type 1 Diabetes mellitus complication status: with circulatory complication (2) ESRD (end stage renal disease) on dialysis Code(s): N18.6 - END STAGE RENAL DISEASE; Z99.2 - DEPENDENCE ON RENAL DIALYSIS (3) Syncope Code(s): R55 - SYNCOPE AND COLLAPSE (4) Anemia Code(s): D64.9 - ANEMIA, UNSPECIFIED Assessment/Plan Current Medications Generic Name Dose Route Start Last Admin Trade Name Freq PRN Reason Stop Dose Admin Acetaminophen 650 mg 05/01/18 14:33 Tylenol - PO Q6H PRN PAIN LEVEL 1-5 Artificial Tears 1 drop 05/01/18 14:33 Artificial Tears OU Q12H PRN DRY EYES Aspirin 81 mg 05/02/18 10:00 Asa - PO DAILY [facility] Atorvastatin Calcium 40 mg 05/01/18 22:00 Lipitor - PO HS [facility] Calcium Acetate 667 mg 05/01/18 17:30 Phoslo - PO TIDCM [facility] Carvedilol 12.5 mg 05/01/18 22:00 Coreg - PO BID [facility] Citalopram Hydrobromide 20 mg 05/02/18 10:00 Celexa - PO DAILY [facility] Collagenase 1 applic 05/02/18 10:00 Santyl - TP DAILY [facility] Protocol Divalproex Sodium 125 mg 05/01/18 22:00 Depakote - PO BID [facility] Docusate Sodium 300 mg 05/01/18 22:00 Colace - PO HS [facility] Fentanyl 25 mcg 05/01/18 14:26 Sublimaze Injection - IVPUSH [id number] PRN PAIN-PACU ORDER X 4 DOSES ONLY Folic Acid 1 mg 05/02/18 10:00 Folic Acid - PO DAILY [facility] Gabapentin 100 mg 05/01/18 22:00 Neurontin - PO BID [facility] Haloperidol 2 mg 05/01/18 14:33 Haldol - PO TID PRN AGITATION Piperacillin Sod/Tazobactam 50 mls @ 100 mls/hr 05/01/18 18:00 Sod 2.25 gm/ Dextrose IVPB Q8H-IV [facility] Protocol Insulin Aspart 1 vial 05/01/18 16:30 Novolog Vial Sliding Scale - SQ ACHS [facility] Protocol Insulin Detemir 10 units 05/01/18 22:00 Levemir Vial SQ HS [facility] Lactobacillus Acidophilus 1 tab 05/02/18 10:00 Bacid - PO DAILY [facility] Multi-Ingredient Ointment 1 gm 05/02/18 10:00 Zinc Oxide 20% Topical Oint TP DAILY [facility] Multivitamins 1 each 05/02/18 10:00 Total B With C - PO DAILY [facility] Ondansetron HCl 4 mg 05/01/18 14:26 Zofran Injection IVPUSH Q6H PRN NAUSEA AND/OR VOMITING Ondansetron HCl 4 mg 05/01/18 14:33 Zofran Injection IVPUSH Q6H PRN NAUSEA AND/OR VOMITING Quetiapine Fumarate 50 mg 05/01/18 14:33 Seroquel - PO Q12H PRN AGITATION Ranitidine HCl 150 mg 05/02/18 10:00 Zantac - PO DAILY [facility] Tamsulosin HCl 0.4 mg 05/01/18 22:00 Flomax - PO HS [facility] Impression 1. ESRD 2. anemia 3. HTN 4. Chol 5. DM 6. BPH 7. CAD 8. hypoglycemia 9. CHF 10. syncope 11. depression 12. PVD Plan - pt for angio today - HD today after angio - family were hesitant to get the amputation done, his wanted to speak to his nephew in [place] who is a medicaid collection specialist. They have decided to go ahead with the amputation - monitor hg - epogen for anemia - cont wound care Dr Donovan
[2018-05-01] MEDS: FOLIC ACID 1 MG TABLET (FP) PO SCH (17:12)
[2018-05-01] MEDS: CITALOPRAM HYDROBROMIDE 20 MG TABLET (FP) PO SCH (17:12)
[2018-05-01] MEDS: DIVALPROEX SODIUM 125 MG TABLET E.C. PO SCH ×2 (17:12→22:01)
[2018-05-01] MEDS: LACTOBACILLUS ACIDOPHILUS 1 TABLET PO SCH (17:12)
[2018-05-01] MEDS: CARVEDILOL 12.5 MG TABLET (FP) PO SCH ×2 (17:12→21:59)
[2018-05-01] MEDS: VITAMIN B COMPLEX W/C COMBO TABLET (FP) PO SCH (17:13)
[2018-05-01] MEDS: RANITIDINE HCL 150 MG TABLET (FP) PO SCH (17:13)
[2018-05-01] MEDS: GABAPENTIN 100 MG CAPSULE (FP) PO SCH ×2 (17:13→22:00)
[2018-05-01] MEDS: COLLAGENASE CLOSTRIDIUM HIST. 30 GRAMS TUBE TP SCH (19:34)
[2018-05-01] MEDS: ZINC OXIDE 20% TOPICAL OINTMENT 454 GM JAR TP SCH (19:34)
[2018-05-01] MEDS: TAMSULOSIN HCL 0.4 MG CAP.ER.24H (FP) PO SCH (22:00)
[2018-05-01] MEDS: ATORVASTATIN CA 40 MG TABLET (FP) PO SCH (22:00)
[2018-05-01] MEDS: DOCUSATE SODIUM 100 MG CAPSULE (FP) PO SCH (22:00)
[2018-05-01] MEDS: INSULIN (LEVEMIR) 100 UNITS/ML UNITS SQ SCH (22:03)
[2018-05-01] MEDS: HALOPERIDOL 1 MG TABLET (FP) PO PRN (22:12)
[2018-05-02] MEDS ORDERED: DEXTROSE 5%-WATER - 50 ML IVPB ONE ×3 (01:30→16:24)
[2018-05-02] MEDS ORDERED: PIPERACILLIN/TAZOBACTAM 2.25 GM VIAL IVPB ONE ×3 (01:30→16:24)
[2018-05-02] MEDS: PIPERACILLIN/TAZOB 2.25 GM 2.25 GM in DEXTROSE 5%-WATER - 50 ML IVPB SCH ×3 (01:57→17:15)
[2018-05-02] MEDS: QUEtiapine FUMARATE 25 MG TABLET (FP) PO PRN (02:38)
[2018-05-02] MEDS: INSULIN SLIDING SCALE (NOVOLOG) 1 VIAL SQ SCH ×4 (07:41→22:18)
[2018-05-02] MEDS: GABAPENTIN 100 MG CAPSULE (FP) PO SCH ×2 (09:36→22:16)
[2018-05-02] MEDS: ASPIRIN 81 MG CHEWABLE TABLETS PO SCH (09:36)
[2018-05-02] MEDS: VITAMIN B COMPLEX W/C COMBO TABLET (FP) PO SCH (09:36)
[2018-05-02] MEDS: RANITIDINE HCL 150 MG TABLET (FP) PO SCH (09:36)
[2018-05-02] MEDS: CALCIUM ACETATE 667 MG CAPSULE (FP) PO SCH ×3 (09:36→16:32)
[2018-05-02] MEDS: CITALOPRAM HYDROBROMIDE 20 MG TABLET (FP) PO SCH (09:36)
[2018-05-02] MEDS: CARVEDILOL 12.5 MG TABLET (FP) PO SCH ×2 (09:37→22:17)
[2018-05-02] MEDS: FOLIC ACID 1 MG TABLET (FP) PO SCH (09:37)
[2018-05-02] MEDS: LACTOBACILLUS ACIDOPHILUS 1 TABLET PO SCH (09:37)
[2018-05-02] MEDS: DIVALPROEX SODIUM 125 MG TABLET E.C. PO SCH ×2 (09:39→22:15)
[2018-05-02] MEDS: ZINC OXIDE 20% TOPICAL OINTMENT 454 GM JAR TP SCH (09:43)
--- NOTE | 2018-05-02 10:54 | PN ---
Progress Note, Physician Chief Complaint: Pt. resting comfortably in bed. No anesthesia complaints. - Current Medication List Current Medications: Active Medications Acetaminophen (Tylenol -) 650 mg PO Q6H PRN PRN Reason: PAIN LEVEL 1-5 Artificial Tears (Artificial Tears) 1 drop OU Q12H PRN PRN Reason: DRY EYES Aspirin (Asa -) 81 mg PO DAILY [facility] Last Admin: 05/02/18 09:36 Dose: 81 mg Atorvastatin Calcium (Lipitor -) 40 mg PO HS [facility] Last Admin: 05/01/18 22:00 Dose: 40 mg Calcium Acetate (Phoslo -) 667 mg PO TIDCM [facility] Last Admin: 05/02/18 09:36 Dose: 667 mg Carvedilol (Coreg -) 12.5 mg PO BID [facility] Last Admin: 05/02/18 09:37 Dose: 12.5 mg Citalopram Hydrobromide (Celexa -) 20 mg PO DAILY [facility] Last Admin: 05/02/18 09:36 Dose: 20 mg Collagenase (Santyl -) 1 applic TP DAILY [facility]; Protocol Divalproex Sodium (Depakote -) 125 mg PO BID [facility] Last Admin: 05/02/18 09:39 Dose: 125 mg Docusate Sodium (Colace -) 300 mg PO HS [facility] Last Admin: 05/01/18 22:00 Dose: 300 mg Folic Acid (Folic Acid -) 1 mg PO DAILY [facility] Last Admin: 05/02/18 09:37 Dose: 1 mg Gabapentin (Neurontin -) 100 mg PO BID [facility] Last Admin: 05/02/18 09:36 Dose: 100 mg Haloperidol (Haldol -) 2 mg PO TID PRN PRN Reason: AGITATION Last Admin: 05/01/18 22:12 Dose: 2 mg Piperacillin Sod/Tazobactam (Sod 2.25 gm/ Dextrose) 50 mls @ 100 mls/hr IVPB Q8H-IV [facility]; Protocol Last Admin: 05/02/18 09:35 Dose: 100 mls/hr Insulin Aspart (Novolog Vial Sliding Scale -) 1 vial SQ ACHS [facility]; Protocol Last Admin: 05/02/18 07:41 Dose: Not Given Insulin Detemir (Levemir Vial) 10 units SQ HS [facility] Last Admin: 05/01/18 22:03 Dose: 10 units Lactobacillus Acidophilus (Bacid -) 1 tab PO DAILY [facility] Last Admin: 05/02/18 09:37 Dose: 1 tab Multi-Ingredient Ointment (Zinc Oxide 20% Topical Oint) 1 gm TP DAILY [facility] Last Admin: 05/02/18 09:43 Dose: 1 applic Multivitamins (Total B With C -) 1 each PO DAILY [facility] Last Admin: 05/02/18 09:36 Dose: 1 each Ondansetron HCl (Zofran Injection) 4 mg IVPUSH Q6H PRN PRN Reason: NAUSEA AND/OR VOMITING Ondansetron HCl (Zofran Injection) 4 mg IVPUSH Q6H PRN PRN Reason: NAUSEA AND/OR VOMITING Quetiapine Fumarate (Seroquel -) 50 mg PO Q12H PRN PRN Reason: AGITATION Last Admin: 05/02/18 02:38 Dose: 50 mg Ranitidine HCl (Zantac -) 150 mg PO DAILY [facility] Last Admin: 05/02/18 09:36 Dose: 150 mg Tamsulosin HCl (Flomax -) 0.4 mg PO HS [facility] Last Admin: 05/01/18 22:00 Dose: 0.4 mg - Objective Vital Signs: Vital Signs Temperature 98.5 F 05/02/18 09:32 Pulse Rate 65 05/02/18 09:32 Respiratory Rate 20 05/02/18 09:32 Blood Pressure 139/55 L 05/02/18 09:32 O2 Sat by Pulse Oximetry (%) 96 05/02/18 09:00 Constitutional: Yes: Well Nourished, No Distress, Calm Neurological: Yes: WNL, Alert, Oriented Labs: CBC, BMP 05/01/18 15:30 05/01/18 15:30 INR, PTT INR 1.42 (0.83-1.09) H 04/28/18 13:10 Assessment/Plan POD#1 s/p angiogram/plasty under MAC. Doing well D/C from anesthesia care.
[2018-05-02] MEDS: COLLAGENASE CLOSTRIDIUM HIST. 30 GRAMS TUBE TP SCH (11:20)
--- NOTE | 2018-05-02 11:35 | PN ---
Progress Note (short form) - Note Progress Note: - Note Progress Note: pt s/p angiogram he is aware that he will need to get the right foot "cut off" he is aware that he has a "tube" for healing the left heel no distress Vital Signs - 24 hr 05/01/18 05/01/18 05/01/18 14:20 14:35 14:50 Temperature 98.1 F Pulse Rate 65 82 76 Respiratory 12 18 18 Rate Blood Pressure 145/55 L 138/78 139/54 L O2 Sat by Pulse 100 99 98 Oximetry (%) 05/01/18 05/01/18 05/01/18 15:00 15:15 15:20 Temperature 98.0 F 97.6 F Pulse Rate 78 102 H 64 Respiratory 18 18 18 Rate Blood Pressure 140/55 L 147/63 149/64 O2 Sat by Pulse Oximetry (%) 05/01/18 05/01/18 05/01/18 15:50 16:20 16:50 Temperature Pulse Rate 58 L 60 60 Respiratory 18 18 18 Rate Blood Pressure 147/62 123/62 135/62 O2 Sat by Pulse Oximetry (%) 05/01/18 05/01/18 05/01/18 17:20 17:50 18:20 Temperature Pulse Rate 60 67 61 Respiratory 18 18 18 Rate Blood Pressure 118/56 L 99/45 L 108/57 L O2 Sat by Pulse Oximetry (%) 05/01/18 05/01/18 05/01/18 18:50 19:10 22:00 Temperature 98.2 F Pulse Rate 62 72 68 Respiratory 18 18 20 Rate Blood Pressure 126/59 L 130/62 130/70 O2 Sat by Pulse 95 Oximetry (%) 05/02/18 05/02/18 05/02/18 01:26 06:00 09:00 Temperature 98.1 F 98.3 F Pulse Rate 69 71 Respiratory 20 20 20 Rate Blood Pressure 127/56 L 127/64 O2 Sat by Pulse 96 Oximetry (%) 05/02/18 09:32 Temperature 98.5 F Pulse Rate 65 Respiratory 20 Rate Blood Pressure 139/55 L O2 Sat by Pulse Oximetry (%) Current Medications Generic Name Dose Route Start Last Admin Trade Name Freq PRN Reason Stop Dose Admin Acetaminophen 650 mg 05/01/18 14:33 Tylenol - PO Q6H PRN PAIN LEVEL 1-5 Artificial Tears 1 drop 05/01/18 14:33 Artificial Tears OU Q12H PRN DRY EYES Aspirin 81 mg 05/02/18 10:00 05/02/18 09:36 Asa - PO 81 mg DAILY ROSIE Administration Atorvastatin Calcium 40 mg 05/01/18 22:00 05/01/18 22:00 Lipitor - PO 40 mg HS ROSIE Administration Calcium Acetate 667 mg 05/01/18 17:30 05/02/18 09:36 Phoslo - PO 667 mg TIDCM ROSIE Administration Carvedilol 12.5 mg 05/01/18 22:00 05/02/18 09:37 Coreg - PO 12.5 mg BID ROSIE Administration Citalopram Hydrobromide 20 mg 05/02/18 10:00 05/02/18 09:36 Celexa - PO 20 mg DAILY ROSIE Administration Collagenase 1 applic 05/02/18 10:00 05/02/18 11:20 Santyl - TP 1 applic DAILY ROSIE Administration Protocol Divalproex Sodium 125 mg 05/01/18 22:00 05/02/18 09:39 Depakote - PO 125 mg BID ROSIE Administration Docusate Sodium 300 mg 05/01/18 22:00 05/01/18 22:00 Colace - PO 300 mg HS ROSIE Administration Folic Acid 1 mg 05/02/18 10:00 05/02/18 09:37 Folic Acid - PO 1 mg DAILY ROSIE Administration Gabapentin 100 mg 05/01/18 22:00 05/02/18 09:36 Neurontin - PO 100 mg BID ROSEI Administration Haloperidol 2 mg 05/01/18 14:33 05/01/18 22:12 Haldol - PO 2 mg TID PRN Administration AGITATION Piperacillin Sod/Tazobactam 50 mls @ 100 mls/hr 05/01/18 18:00 05/02/18 09:35 Sod 2.25 gm/ Dextrose IVPB 100 mls/hr Q8H-IV ROSIE Administration Protocol Insulin Aspart 1 vial 05/01/18 16:30 05/02/18 11:20 Novolog Vial Sliding Scale - SQ 4 units ACHS ROSIE Administration Protocol Insulin Detemir 10 units 05/01/18 22:00 05/01/18 22:03 Levemir Vial SQ 10 units HS ROSIE Administration Lactobacillus Acidophilus 1 tab 05/02/18 10:00 05/02/18 09:37 Bacid - PO 1 tab DAILY ROSIE Administration Multi-Ingredient Ointment 1 gm 05/02/18 10:00 05/02/18 09:43 Zinc Oxide 20% Topical Oint TP 1 applic DAILY ROSIE Administration Multivitamins 1 each 05/02/18 10:00 05/02/18 09:36 Total B With C - PO 1 each DAILY ROSIE Administration Ondansetron HCl 4 mg 05/01/18 14:26 Zofran Injection IVPUSH Q6H PRN NAUSEA AND/OR VOMITING Ondansetron HCl 4 mg 05/01/18 14:33 Zofran Injection IVPUSH Q6H PRN NAUSEA AND/OR VOMITING Quetiapine Fumarate 50 mg 05/01/18 14:33 05/02/18 02:38 Seroquel - PO 50 mg Q12H PRN Administration AGITATION Ranitidine HCl 150 mg 05/02/18 10:00 05/02/18 09:36 Zantac - PO 150 mg DAILY ROSIE Administration Tamsulosin HCl 0.4 mg 05/01/18 22:00 05/01/18 22:00 Flomax - PO 0.4 mg HS ROSIE Administration Laboratory Results - last 24 hr 05/01/18 05/01/18 05/01/18 15:02 15:30 15:30 WBC 9.8 RBC 2.59 L Hgb 8.2 L Hct 24.6 L MCV 94.8 MCH 31.5 MCHC 33.2 RDW 17.0 H Plt Count 292 MPV 6.8 L Sodium 140 Potassium 4.0 Chloride 102 Carbon Dioxide 26 Anion Gap 12 BUN 77 H Creatinine 7.1 H Creat Clearance w eGFR 7.65 POC Glucometer 120 Random Glucose 107 H Calcium 8.2 L Blood Type Antibody Screen 05/01/18 05/01/18 05/02/18 15:30 20:57 05:41 WBC RBC Hgb Hct MCV MCH MCHC RDW Plt Count MPV Sodium Potassium Chloride Carbon Dioxide Anion Gap BUN Creatinine Creat Clearance w eGFR POC Glucometer 188 166 Random Glucose Calcium Blood Type B POSITIVE Antibody Screen Negative exam- Constitutional: Yes: No Distress, Comfortable. Neck: Yes: Supple. no jvd Cardiovascular: Yes: Regular Rate and Rhythm Respiratory: Yes: Diminished Gastrointestinal: Yes: Soft/ non tender Edema: No Wound/Incision: Yes: Bilateral heel ulcers -rt foot cool ,left - wound vac Neurological: Yes: Alert Psychiatric: Yes: Alert,calm Assessment/Plan drowsy Continue present care abx-- Zosyn bone scan-ve Arterial doppler-- Atherosclerotic disease possible amputation Sunday as per Surgeon - spoke with HUMZA LILLY and plavix on hold DC fluids s/p PRBC iv antibiotics s/o left angiogram Problem List - Problems (1) Diabetes Code(s): E11.9 - TYPE 2 DIABETES MELLITUS WITHOUT COMPLICATIONS Qualifiers: Diabetes mellitus type: type 1 Diabetes mellitus complication status: with circulatory complication (2) ESRD (end stage renal disease) on dialysis Code(s): N18.6 - END STAGE RENAL DISEASE; Z99.2 - DEPENDENCE ON RENAL DIALYSIS (3) Infected pressure ulcer Code(s): L89.90 - PRESSURE ULCER OF UNSPECIFIED SITE, UNSPECIFIED STAGE; L08.9 - LOCAL INFECTION OF THE SKIN AND SUBCUTANEOUS TISSUE, UNSP (4) Syncope Code(s): R55 - SYNCOPE AND COLLAPSE (5) Acute metabolic encephalopathy due to hypoglycemia Code(s): G93.41 - METABOLIC ENCEPHALOPATHY; E16.2 - HYPOGLYCEMIA, UNSPECIFIED (6) Anemia Code(s): D64.9 - ANEMIA, UNSPECIFIED (7) CAD (coronary artery disease) Code(s): I25.10 - ATHSCL HEART DISEASE OF [place] CORONARY ARTERY W/O ANG PCTRS (8) ESRD (end stage renal disease) on dialysis Code(s): N18.6 - END STAGE RENAL DISEASE; Z99.2 - DEPENDENCE ON RENAL DIALYSIS
--- NOTE | 2018-05-02 12:17 | PN ---
Progress Note, Physician History of Present Illness: Resting comfortably, denies chest pain or dyspnea, underwent left infrapopliteal [employer] yesterday. - Current Medication List Current Medications: Active Medications Acetaminophen (Tylenol -) 650 mg PO Q6H PRN PRN Reason: PAIN LEVEL 1-5 Artificial Tears (Artificial Tears) 1 drop OU Q12H PRN PRN Reason: DRY EYES Aspirin (Asa -) 81 mg PO DAILY [facility] Last Admin: 05/02/18 09:36 Dose: 81 mg Atorvastatin Calcium (Lipitor -) 40 mg PO HS [facility] Last Admin: 05/01/18 22:00 Dose: 40 mg Calcium Acetate (Phoslo -) 667 mg PO TIDCM [facility] Last Admin: 05/02/18 12:07 Dose: 667 mg Carvedilol (Coreg -) 12.5 mg PO BID [facility] Last Admin: 05/02/18 09:37 Dose: 12.5 mg Citalopram Hydrobromide (Celexa -) 20 mg PO DAILY [facility] Last Admin: 05/02/18 09:36 Dose: 20 mg Collagenase (Santyl -) 1 applic TP DAILY [facility]; Protocol Last Admin: 05/02/18 11:20 Dose: 1 applic Divalproex Sodium (Depakote -) 125 mg PO BID [facility] Last Admin: 05/02/18 09:39 Dose: 125 mg Docusate Sodium (Colace -) 300 mg PO HS [facility] Last Admin: 05/01/18 22:00 Dose: 300 mg Folic Acid (Folic Acid -) 1 mg PO DAILY [facility] Last Admin: 05/02/18 09:37 Dose: 1 mg Gabapentin (Neurontin -) 100 mg PO BID [facility] Last Admin: 05/02/18 09:36 Dose: 100 mg Haloperidol (Haldol -) 2 mg PO TID PRN PRN Reason: AGITATION Last Admin: 05/01/18 22:12 Dose: 2 mg Piperacillin Sod/Tazobactam (Sod 2.25 gm/ Dextrose) 50 mls @ 100 mls/hr IVPB Q8H-IV [facility]; Protocol Last Admin: 05/02/18 09:35 Dose: 100 mls/hr Insulin Aspart (Novolog Vial Sliding Scale -) 1 vial SQ ACHS [facility]; Protocol Last Admin: 05/02/18 11:20 Dose: 4 units Insulin Detemir (Levemir Vial) 10 units SQ [facility] Last Admin: 05/01/18 22:03 Dose: 10 units Lactobacillus Acidophilus (Bacid -) 1 tab PO DAILY [facility] Last Admin: 05/02/18 09:37 Dose: 1 tab Multi-Ingredient Ointment (Zinc Oxide 20% Topical Oint) 1 gm TP DAILY [facility] Last Admin: 05/02/18 09:43 Dose: 1 applic Multivitamins (Total B With C -) 1 each PO DAILY [facility] Last Admin: 05/02/18 09:36 Dose: 1 each Ondansetron HCl (Zofran Injection) 4 mg IVPUSH Q6H PRN PRN Reason: NAUSEA AND/OR VOMITING Ondansetron HCl (Zofran Injection) 4 mg IVPUSH Q6H PRN PRN Reason: NAUSEA AND/OR VOMITING Quetiapine Fumarate (Seroquel -) 50 mg PO Q12H PRN PRN Reason: AGITATION Last Admin: 05/02/18 02:38 Dose: 50 mg Ranitidine HCl (Zantac -) 150 mg PO DAILY [facility] Last Admin: 05/02/18 09:36 Dose: 150 mg Tamsulosin HCl (Flomax -) 0.4 mg PO [facility] Last Admin: 05/01/18 22:00 Dose: 0.4 mg - Objective Vital Signs: Vital Signs Temperature 98.5 F 05/02/18 09:32 Pulse Rate 65 05/02/18 09:32 Respiratory Rate 20 05/02/18 09:32 Blood Pressure 139/55 L 05/02/18 09:32 O2 Sat by Pulse Oximetry (%) 96 05/02/18 09:00 Constitutional: Yes: No Distress, Calm, Thin Neck: Yes: Supple Cardiovascular: Yes: Regular Rate and Rhythm Respiratory: Yes: Regular, Diminished, On Nasal O2 Gastrointestinal: Yes: Normal Bowel Sounds, Soft Edema: No Wound/Incision: Yes: Dressing Dry and Intact Labs: CBC, BMP 05/01/18 15:30 05/01/18 15:30 INR, PTT INR 1.42 (0.83-1.09) H 04/28/18 13:10 Problem List - Problems (1) Pre-operative cardiovascular examination Code(s): Z01.810 - ENCOUNTER FOR PREPROCEDURAL CARDIOVASCULAR EXAMINATION (2) Diabetes Code(s): E11.9 - TYPE 2 DIABETES MELLITUS WITHOUT COMPLICATIONS Qualifiers: Diabetes mellitus type: type 1 Diabetes mellitus complication status: with circulatory complication (3) ESRD (end stage renal disease) on dialysis Code(s): N18.6 - END STAGE RENAL DISEASE; Z99.2 - DEPENDENCE ON RENAL DIALYSIS (4) Eschar of heel Code(s): R23.4 - CHANGES IN SKIN TEXTURE (5) CAD (coronary artery disease) Code(s): I25.10 - ATHSCL HEART DISEASE OF [place] CORONARY ARTERY W/O ANG PCTRS Qualifiers: Coronary Disease-Associated Artery/Lesion type: [place] artery [place] vs. transplanted heart: [place] heart Associated angina: without angina Qualified Code(s): I25.10 - Atherosclerotic heart disease of [place] coronary artery without angina pectoris (6) CHF (congestive heart failure) Code(s): I50.9 - HEART FAILURE, UNSPECIFIED (7) CAD (coronary artery disease) Code(s): I25.10 - ATHSCL HEART DISEASE OF [place] CORONARY ARTERY W/O ANG PCTRS Qualifiers: Coronary Disease-Associated Artery/Lesion type: [place] artery [place] vs. transplanted heart: [place] heart Associated angina: without angina Qualified Code(s): I25.10 - Atherosclerotic heart disease of [place] coronary artery without angina pectoris (8) HTN (hypertension) Code(s): I10 - ESSENTIAL (PRIMARY) HYPERTENSION Qualifiers: Hypertension type: essential hypertension Qualified Code(s): I10 - Essential (primary) hypertension (9) Hx of CABG Code(s): Z95.1 - PRESENCE OF AORTOCORONARY BYPASS GRAFT (10) Hypercholesterolemia Code(s): E78.00 - PURE HYPERCHOLESTEROLEMIA, UNSPECIFIED (11) PAD (peripheral artery disease) Code(s): I73.9 - PERIPHERAL VASCULAR DISEASE, UNSPECIFIED (12) S/P coronary artery stent placement Code(s): Z95.5 - PRESENCE OF CORONARY ANGIOPLASTY IMPLANT AND GRAFT Assessment/Plan 12/19/2017 Normal LV size with mild-mod decrease LV fxn, mild STEPHEN, mild TR, MR, can't exclude MV vegetation 1. PAD s/p LE bypass, heel wound (non healing) s/p angioplasty right posterior tibial artery, s/p angioplasty left anterior tibial artery, plan for right TMA vs BKA, left heel wound vac 2. HTN 3. Hypercholesterolemia 4. DM 5. Diastolic/Systolic LV dysfunction with class 0 NYHA classification LV failure 6. CAD s/p CABG, PCI/stent, demand ischemia 7. ESRD on HD 8. Anemia of CKD PLAN: 1. No absolute contraindication in proceeding with vascular intervention in view of absence of ischemic symptoms, decompensated congestive heart failure or malignant arrhythmias. 2. Continue Carvedilol 12.5 bid and Lipitor 40 qhs, Plavix held pre-op (had wound ooze post-debridement treated with plt transfusion), continue ASA 81 qd prei-op to minimize risk of very late stent thrombosis, resume Plavix once post- op hemostasis has been achieved, d/w vascular 3. Empiric antibiotic course, left wound vac care and right BKA as per vascular surgery, awaiting consent 4. HD per renal 5. DVT and GI prophylaxis
--- NOTE | 2018-05-02 14:56 | PN ---
Progress Note, Physician History of Present Illness: Pt seen and examined at bedside. He is awake and appears comfortable. - Current Medication List Current Medications: Active Medications Acetaminophen (Tylenol -) 650 mg PO Q6H PRN PRN Reason: PAIN LEVEL 1-5 Artificial Tears (Artificial Tears) 1 drop OU Q12H PRN PRN Reason: DRY EYES Aspirin (Asa -) 81 mg PO DAILY [facility] Last Admin: 05/02/18 09:36 Dose: 81 mg Atorvastatin Calcium (Lipitor -) 40 mg PO HS [facility] Last Admin: 05/01/18 22:00 Dose: 40 mg Calcium Acetate (Phoslo -) 667 mg PO TIDCM [facility] Last Admin: 05/02/18 12:07 Dose: 667 mg Carvedilol (Coreg -) 12.5 mg PO BID [facility] Last Admin: 05/02/18 09:37 Dose: 12.5 mg Citalopram Hydrobromide (Celexa -) 20 mg PO DAILY [facility] Last Admin: 05/02/18 09:36 Dose: 20 mg Collagenase (Santyl -) 1 applic TP DAILY [facility]; Protocol Last Admin: 05/02/18 11:20 Dose: 1 applic Divalproex Sodium (Depakote -) 125 mg PO BID [facility] Last Admin: 05/02/18 09:39 Dose: 125 mg Docusate Sodium (Colace -) 300 mg PO HS [facility] Last Admin: 05/01/18 22:00 Dose: 300 mg Folic Acid (Folic Acid -) 1 mg PO DAILY [facility] Last Admin: 05/02/18 09:37 Dose: 1 mg Gabapentin (Neurontin -) 100 mg PO BID [facility] Last Admin: 05/02/18 09:36 Dose: 100 mg Haloperidol (Haldol -) 2 mg PO TID PRN PRN Reason: AGITATION Last Admin: 05/01/18 22:12 Dose: 2 mg Piperacillin Sod/Tazobactam (Sod 2.25 gm/ Dextrose) 50 mls @ 100 mls/hr IVPB Q8H-IV [facility]; Protocol Last Admin: 05/02/18 09:35 Dose: 100 mls/hr Insulin Aspart (Novolog Vial Sliding Scale -) 1 vial SQ [facility]; Protocol Last Admin: 05/02/18 11:20 Dose: 4 units Insulin Detemir (Levemir Vial) 10 units SQ [facility] Last Admin: 05/01/18 22:03 Dose: 10 units Lactobacillus Acidophilus (Bacid -) 1 tab PO DAILY [facility] Last Admin: 05/02/18 09:37 Dose: 1 tab Multi-Ingredient Ointment (Zinc Oxide 20% Topical Oint) 1 gm TP DAILY [facility] Last Admin: 05/02/18 09:43 Dose: 1 applic Multivitamins (Total B With C -) 1 each PO DAILY [facility] Last Admin: 05/02/18 09:36 Dose: 1 each Ondansetron HCl (Zofran Injection) 4 mg IVPUSH Q6H PRN PRN Reason: NAUSEA AND/OR VOMITING Ondansetron HCl (Zofran Injection) 4 mg IVPUSH Q6H PRN PRN Reason: NAUSEA AND/OR VOMITING Quetiapine Fumarate (Seroquel -) 50 mg PO Q12H PRN PRN Reason: AGITATION Last Admin: 05/02/18 02:38 Dose: 50 mg Ranitidine HCl (Zantac -) 150 mg PO DAILY [facility] Last Admin: 05/02/18 09:36 Dose: 150 mg Tamsulosin HCl (Flomax -) 0.4 mg PO [facility] Last Admin: 05/01/18 22:00 Dose: 0.4 mg - Objective Vital Signs: Vital Signs Temperature 98.1 F 05/02/18 14:18 Pulse Rate 67 05/02/18 14:18 Respiratory Rate 20 05/02/18 14:18 Blood Pressure 126/82 05/02/18 14:18 O2 Sat by Pulse Oximetry (%) 96 05/02/18 09:00 Constitutional: Yes: Calm Eyes: Yes: Conjunctiva Clear Neck: Yes: Supple Cardiovascular: Yes: S1, S2 Respiratory: Yes: CTA Bilaterally Gastrointestinal: Yes: Soft Musculoskeletal: Yes: WNL Edema: No Wound/Incision: Yes: Dressing Dry and Intact Neurological: Yes: Confusion Labs: CBC, BMP 05/01/18 15:30 05/01/18 15:30 INR, PTT INR 1.42 (0.83-1.09) H 04/28/18 13:10 Problem List - Problems (1) Diabetes Code(s): E11.9 - TYPE 2 DIABETES MELLITUS WITHOUT COMPLICATIONS Qualifiers: Diabetes mellitus type: type 1 Diabetes mellitus complication status: with circulatory complication (2) ESRD (end stage renal disease) on dialysis Code(s): N18.6 - END STAGE RENAL DISEASE; Z99.2 - DEPENDENCE ON RENAL DIALYSIS (3) Syncope Code(s): R55 - SYNCOPE AND COLLAPSE (4) Anemia Code(s): D64.9 - ANEMIA, UNSPECIFIED Assessment/Plan Current Medications Generic Name Dose Route Start Last Admin Trade Name Freq PRN Reason Stop Dose Admin Acetaminophen 650 mg 05/01/18 14:33 Tylenol - PO Q6H PRN PAIN LEVEL 1-5 Artificial Tears 1 drop 05/01/18 14:33 Artificial Tears OU Q12H PRN DRY EYES Aspirin 81 mg 05/02/18 10:00 05/02/18 09:36 Asa - PO 81 mg DAILY ROSIE Administration Atorvastatin Calcium 40 mg 05/01/18 22:00 05/01/18 22:00 Lipitor - PO 40 mg HS ROSIE Administration Calcium Acetate 667 mg 05/01/18 17:30 05/02/18 12:07 Phoslo - PO 667 mg TIDCM ROSIE Administration Carvedilol 12.5 mg 05/01/18 22:00 05/02/18 09:37 Coreg - PO 12.5 mg BID ROSIE Administration Citalopram Hydrobromide 20 mg 05/02/18 10:00 05/02/18 09:36 Celexa - PO 20 mg DAILY [facility]IE Administration Collagenase 1 applic 05/02/18 10:00 05/02/18 11:20 Santyl - TP 1 applic DAILY ROSIE Administration Protocol Divalproex Sodium 125 mg 05/01/18 22:00 05/02/18 09:39 Depakote - PO 125 mg BID ROSIE Administration Docusate Sodium 300 mg 05/01/18 22:00 05/01/18 22:00 Colace - PO 300 mg HS ROSIE Administration Folic Acid 1 mg 05/02/18 10:00 05/02/18 09:37 Folic Acid - PO 1 mg DAILY ROSIE Administration Gabapentin 100 mg 05/01/18 22:00 05/02/18 09:36 Neurontin - PO 100 mg BID ROSIE Administration Haloperidol 2 mg 05/01/18 14:33 05/01/18 22:12 Haldol - PO 2 mg TID PRN Administration AGITATION Piperacillin Sod/Tazobactam 50 mls @ 100 mls/hr 05/01/18 18:00 09/27/18 09:35 Sod 2.25 gm/ Dextrose IVPB 100 mls/hr Q8H-IV ROSIE Administration Protocol Insulin Aspart 1 vial 05/01/18 16:30 05/02/18 11:20 Novolog Vial Sliding Scale - SQ 4 units ACHS ROSIE Administration Protocol Insulin Detemir 10 units 05/01/18 22:00 05/01/18 22:03 Levemir Vial SQ 10 units HS ROSIE Administration Lactobacillus Acidophilus 1 tab 05/02/18 10:00 05/02/18 09:37 Bacid - PO 1 tab DAILY [facility]IE Administration Multi-Ingredient Ointment 1 gm 05/02/18 10:00 05/02/18 09:43 Zinc Oxide 20% Topical Oint TP 1 applic DAILY [facility] Administration Multivitamins 1 each 05/02/18 10:00 05/02/18 09:36 Total B With C - PO 1 each DAILY [facility] Administration Ondansetron HCl 4 mg 05/01/18 14:26 Zofran Injection IVPUSH Q6H PRN NAUSEA AND/OR VOMITING Ondansetron HCl 4 mg 05/01/18 14:33 Zofran Injection IVPUSH Q6H PRN NAUSEA AND/OR VOMITING Quetiapine Fumarate 50 mg 05/01/18 14:33 05/02/18 02:38 Seroquel - PO 50 mg Q12H PRN Administration AGITATION Ranitidine HCl 150 mg 05/02/18 10:00 05/02/18 09:36 Zantac - PO 150 mg DAILY [facility]IE Administration Tamsulosin HCl 0.4 mg 05/01/18 22:00 05/01/18 22:00 Flomax - PO 0.4 mg HS ROSIE Administration Impression 1. ESRD 2. anemia 3. HTN 4. Chol 5. DM 6. BPH 7. CAD 8. hypoglycemia 9. CHF 10. syncope 11. depression 12. PVD Plan - HD tomorrow - vascular surgery follow up - epogen for anemia - cont wound care Dr Donovan
[2018-05-02 16:13] VITALS: BMI 26.2
[2018-05-02] MEDS ORDERED: PT OWN MED DRAWER 7, Y5N ONE (20:31)
[2018-05-02] MEDS: HEPARIN NA (PORCINE) 5,000 UNITS/ML 1ML VIAL SQ SCH (22:16)
[2018-05-02] MEDS: TAMSULOSIN HCL 0.4 MG CAP.ER.24H (FP) PO SCH (22:17)
[2018-05-02] MEDS: ATORVASTATIN CA 40 MG TABLET (FP) PO SCH (22:17)
[2018-05-02] MEDS: DOCUSATE SODIUM 100 MG CAPSULE (FP) PO SCH (22:17)
[2018-05-02] MEDS: HALOPERIDOL 1 MG TABLET (FP) PO PRN (22:19)
[2018-05-02] MEDS: INSULIN (LEVEMIR) 100 UNITS/ML UNITS SQ SCH (22:23)
[2018-05-03] MEDS ORDERED: DEXTROSE 5%-WATER - 50 ML IVPB ONE ×3 (01:41→19:00)
[2018-05-03] MEDS ORDERED: PIPERACILLIN/TAZOBACTAM 2.25 GM VIAL IVPB ONE ×3 (01:41→19:00)
[2018-05-03] MEDS: PIPERACILLIN/TAZOB 2.25 GM 2.25 GM in DEXTROSE 5%-WATER - 50 ML IVPB SCH ×4 (01:43→20:30)
[2018-05-03] MEDS: INSULIN SLIDING SCALE (NOVOLOG) 1 VIAL SQ SCH ×4 (06:03→23:17)
[2018-05-03] MEDS ORDERED: INSULIN (NOVOLOG) ASPART 100 UNITS/ML 10ML VIAL ONE (07:00)
[2018-05-03] MEDS: CALCIUM ACETATE 667 MG CAPSULE (FP) PO SCH ×3 (09:06→17:01)
[2018-05-03] MEDS: FOLIC ACID 1 MG TABLET (FP) PO SCH (09:07)
[2018-05-03] MEDS: RANITIDINE HCL 150 MG TABLET (FP) PO SCH (09:07)
[2018-05-03] MEDS: HEPARIN NA (PORCINE) 5,000 UNITS/ML 1ML VIAL SQ SCH ×2 (09:07→23:24)
[2018-05-03] MEDS: CITALOPRAM HYDROBROMIDE 20 MG TABLET (FP) PO SCH (09:07)
[2018-05-03] MEDS: ASPIRIN 81 MG CHEWABLE TABLETS PO SCH (09:07)
[2018-05-03] MEDS: LACTOBACILLUS ACIDOPHILUS 1 TABLET PO SCH (09:07)
[2018-05-03] MEDS: VITAMIN B COMPLEX W/C COMBO TABLET (FP) PO SCH (09:07)
[2018-05-03] MEDS: GABAPENTIN 100 MG CAPSULE (FP) PO SCH ×2 (09:07→23:16)
[2018-05-03 09:38] LABS: HEMATOCRIT 23.2 % (35.4-49); HEMOGLOBIN 7.7 GM/dL (11.7-16.9); MCH 31.4 pg (25.7-33.7); MCHC 33.1 g/dl (32.0-35.9); MEAN CELL VOLUME 94.7 fl (80-96); PLATELET COUNT 282 K/MM3 (134-434); RBC 2.45 M/mm3 (4.00-5.60); RDW 16.6 % (11.9-15.9); WHITE BLOOD COUNT 9.3 K/mm3 (4.0-10.0)
[2018-05-03 09:58] LABS: ANION GAP 16 MMOL/L (8-16); BLOOD UREA NITROGEN 62 mg/dL (7-18); CALCIUM 8.2 mg/dL (8.5-10.1); CHLORIDE 98 mmol/L (98-107); CO2 26 mmol/L (21-32); CREATININE 6.1 mg/dL (0.55-1.3); GLUCOSE,RANDOM 243 mg/dL (74-106); POTASSIUM 3.7 mmol/L (3.5-5.1); SODIUM 139 mmol/L (136-145)
[2018-05-03] MEDS ORDERED: SODIUM CHLORIDE 250 ML IV PRN (10:00)
--- NOTE | 2018-05-03 10:13 | PN ---
Progress Note (short form) - Note Progress Note: pt seen/ examined in dialysis today chart reviewed awake/ comfortable for or today Vital Signs Temp 97.8 F 05/03/18 07:30 Pulse 65 05/03/18 09:05 Resp 18 05/03/18 09:05 BP 142/57 L 05/03/18 09:05 Pulse Ox 96 05/02/18 21:00 Intake & Output 05/02/18 05/02/18 05/03/18 11:59 23:59 11:59 Intake Total 50 1087 50 Balance 50 1087 50 Weight 153 lb 1.6 oz 155 lb 3.2 oz Intake: IVPB 50 100 50 Oral 750 Oral Supplement 237 Other: Voiding Method Incontinent Incontinent Incontinent Bowel Movement Yes Yes Body Mass Index (BMI) 26.2 Weight Measurement Method Patient Lift Scale Patient Lift Scale Active Medications Acetaminophen (Tylenol -) 650 mg PO Q6H PRN PRN Reason: PAIN LEVEL 1-5 Artificial Tears (Artificial Tears) 1 drop OU Q12H PRN PRN Reason: DRY EYES Aspirin (Asa -) 81 mg PO DAILY [facility] Last Admin: 05/03/18 09:07 Dose: Not Given Atorvastatin Calcium (Lipitor -) 40 mg PO [facility] Last Admin: 05/02/18 22:17 Dose: 40 mg Calcium Acetate (Phoslo -) 667 mg PO TIDCM [facility] Last Admin: 05/03/18 09:06 Dose: Not Given Carvedilol (Coreg -) 12.5 mg PO BID [facility] Last Admin: 05/02/18 22:17 Dose: 12.5 mg Citalopram Hydrobromide (Celexa -) 20 mg PO DAILY [facility] Last Admin: 05/03/18 09:07 Dose: Not Given Collagenase (Santyl -) 1 applic TP DAILY [facility]; Protocol Last Admin: 05/02/18 11:20 Dose: 1 applic Divalproex Sodium (Depakote -) 125 mg PO BID [facility] Last Admin: 05/02/18 22:15 Dose: 125 mg Docusate Sodium (Colace -) 300 mg PO [facility] Last Admin: 05/02/18 22:17 Dose: 300 mg Epoetin Jose Francisco 10,000 unit/ (Epoetin Jose Francisco 2,000 unit) 12,000 unit IVPUSH ONCE ONE Stop: 05/03/18 10:31 Folic Acid (Folic Acid -) 1 mg PO DAILY [facility] Last Admin: 05/03/18 09:07 Dose: Not Given Gabapentin (Neurontin -) 100 mg PO BID [facility] Last Admin: 05/03/18 09:07 Dose: Not Given Haloperidol (Haldol -) 2 mg PO TID PRN PRN Reason: AGITATION Last Admin: 05/02/18 22:19 Dose: 2 mg Heparin Sodium (Porcine) (Heparin -) 5,000 unit SQ BID [facility] Last Admin: 05/03/18 09:07 Dose: Not Given Piperacillin Sod/Tazobactam (Sod 2.25 gm/ Dextrose) 50 mls @ 100 mls/hr IVPB Q8H-IV [facility]; Protocol Last Admin: 05/03/18 01:43 Dose: 100 mls/hr Insulin Aspart (Novolog Vial Sliding Scale -) 1 vial SQ ACHS [facility]; Protocol Last Admin: 05/03/18 06:03 Dose: Not Given Insulin Detemir (Levemir Vial) 10 units SQ HS [facility] Last Admin: 05/02/18 22:23 Dose: Not Given Lactobacillus Acidophilus (Bacid -) 1 tab PO DAILY [facility] Last Admin: 05/03/18 09:07 Dose: Not Given Multi-Ingredient Ointment (Zinc Oxide 20% Topical Oint) 1 gm TP DAILY [facility] Last Admin: 05/02/18 09:43 Dose: 1 applic Multivitamins (Total B With C -) 1 each PO DAILY [facility] Last Admin: 05/03/18 09:07 Dose: Not Given Ondansetron HCl (Zofran Injection) 4 mg IVPUSH Q6H PRN PRN Reason: NAUSEA AND/OR VOMITING Ondansetron HCl (Zofran Injection) 4 mg IVPUSH Q6H PRN PRN Reason: NAUSEA AND/OR VOMITING Quetiapine Fumarate (Seroquel -) 50 mg PO Q12H PRN PRN Reason: AGITATION Last Admin: 05/02/18 02:38 Dose: 50 mg Ranitidine HCl (Zantac -) 150 mg PO DAILY [facility] Last Admin: 05/03/18 09:07 Dose: Not Given Tamsulosin HCl (Flomax -) 0.4 mg PO HS [facility] Last Admin: 05/02/18 22:17 Dose: 0.4 mg CBC, BMP 05/03/18 08:00 05/03/18 08:00 Physical Exam. Constitutional: Yes: No Distress, Comfortable. Neck: Yes: Supple. no jvd Cardiovascular: Yes: Regular Rate and Rhythm Respiratory: Yes: Diminished Gastrointestinal: Yes: Soft/ non tender. bs + Edema: No Wound/Incision: Yes: Bilateral heel ulcers -rt foot cool ,left - wound vac Neurological: Yes: Alert Psychiatric: Yes: Alert,calm Assessment/Plan comfortable Continue present care abx-- Zosyn bone scan-ve Arterial doppler-- Atherosclerotic disease possible amputation today ASA and plavix on hold DC fluids hb - 7.7-- transfuse one unit with dialysis today continue present care stable for proposed procedure Problem List - Problems (1) Diabetes Code(s): E11.9 - TYPE 2 DIABETES MELLITUS WITHOUT COMPLICATIONS Qualifiers: Diabetes mellitus type: type 1 Diabetes mellitus complication status: with circulatory complication (2) ESRD (end stage renal disease) on dialysis Code(s): N18.6 - END STAGE RENAL DISEASE; Z99.2 - DEPENDENCE ON RENAL DIALYSIS (3) Infected pressure ulcer Code(s): L89.90 - PRESSURE ULCER OF UNSPECIFIED SITE, UNSPECIFIED STAGE; L08.9 - LOCAL INFECTION OF THE SKIN AND SUBCUTANEOUS TISSUE, UNSP (4) Syncope Code(s): R55 - SYNCOPE AND COLLAPSE (5) Acute metabolic encephalopathy due to hypoglycemia Code(s): G93.41 - METABOLIC ENCEPHALOPATHY; E16.2 - HYPOGLYCEMIA, UNSPECIFIED (6) Anemia Code(s): D64.9 - ANEMIA, UNSPECIFIED (7) CAD (coronary artery disease) Code(s): I25.10 - ATHSCL HEART DISEASE OF [place] CORONARY ARTERY W/O ANG PCTRS Qualifiers: Coronary Disease-Associated Artery/Lesion type: [place] artery [place] vs. transplanted heart: [place] heart Associated angina: without angina Qualified Code(s): I25.10 - Atherosclerotic heart disease of [place] coronary artery without angina pectoris (8) ESRD (end stage renal disease) on dialysis Code(s): N18.6 - END STAGE RENAL DISEASE; Z99.2 - DEPENDENCE ON RENAL DIALYSIS
[2018-05-03 10:26] LABS: INR 1.28 (0.83-1.09); PROTHROMBIN TIME (PATIENT) 15.2 SEC (9.7-13.0)
[2018-05-03] MEDS ORDERED: EPOETIN ALFA 10,000 UNIT, EPOETIN ALFA 2,000 UNIT IVPUSH ONE (10:30)
--- NOTE | 2018-05-03 12:00 | PN ---
Progress Note, Physician History of Present Illness: Resting comfortably, denies chest pain or dyspnea, underwent left infrapopliteal [employer] yesterday. - Current Medication List Current Medications: Active Medications Acetaminophen (Tylenol -) 650 mg PO Q6H PRN PRN Reason: PAIN LEVEL 1-5 Artificial Tears (Artificial Tears) 1 drop OU Q12H PRN PRN Reason: DRY EYES Aspirin (Asa -) 81 mg PO DAILY [facility] Last Admin: 05/03/18 09:07 Dose: Not Given Atorvastatin Calcium (Lipitor -) 40 mg PO HS [facility] Last Admin: 05/02/18 22:17 Dose: 40 mg Calcium Acetate (Phoslo -) 667 mg PO TIDCM [facility] Last Admin: 05/03/18 09:06 Dose: Not Given Carvedilol (Coreg -) 12.5 mg PO BID [facility] Last Admin: 05/02/18 22:17 Dose: 12.5 mg Citalopram Hydrobromide (Celexa -) 20 mg PO DAILY [facility] Last Admin: 05/03/18 09:07 Dose: Not Given Collagenase (Santyl -) 1 applic TP DAILY [facility]; Protocol Last Admin: 05/02/18 11:20 Dose: 1 applic Divalproex Sodium (Depakote -) 125 mg PO BID [facility] Last Admin: 05/02/18 22:15 Dose: 125 mg Docusate Sodium (Colace -) 300 mg PO HS [facility] Last Admin: 05/02/18 22:17 Dose: 300 mg Folic Acid (Folic Acid -) 1 mg PO DAILY [facility] Last Admin: 05/03/18 09:07 Dose: Not Given Gabapentin (Neurontin -) 100 mg PO BID [facility] Last Admin: 05/03/18 09:07 Dose: Not Given Haloperidol (Haldol -) 2 mg PO TID PRN PRN Reason: AGITATION Last Admin: 05/02/18 22:19 Dose: 2 mg Heparin Sodium (Porcine) (Heparin -) 5,000 unit SQ BID [facility] Last Admin: 05/03/18 09:07 Dose: Not Given Piperacillin Sod/Tazobactam (Sod 2.25 gm/ Dextrose) 50 mls @ 100 mls/hr IVPB Q8H-IV [facility]; Protocol Last Admin: 05/03/18 01:43 Dose: 100 mls/hr Insulin Aspart (Novolog Vial Sliding Scale -) 1 vial SQ ACHS [facility]; Protocol Last Admin: 05/03/18 06:03 Dose: Not Given Insulin Detemir (Levemir Vial) 10 units SQ [facility] Last Admin: 05/02/18 22:23 Dose: Not Given Lactobacillus Acidophilus (Bacid -) 1 tab PO DAILY [facility] Last Admin: 05/03/18 09:07 Dose: Not Given Multi-Ingredient Ointment (Zinc Oxide 20% Topical Oint) 1 gm TP DAILY [facility] Last Admin: 05/02/18 09:43 Dose: 1 applic Multivitamins (Total B With C -) 1 each PO DAILY [facility] Last Admin: 05/03/18 09:07 Dose: Not Given Ondansetron HCl (Zofran Injection) 4 mg IVPUSH Q6H PRN PRN Reason: NAUSEA AND/OR VOMITING Ondansetron HCl (Zofran Injection) 4 mg IVPUSH Q6H PRN PRN Reason: NAUSEA AND/OR VOMITING Quetiapine Fumarate (Seroquel -) 50 mg PO Q12H PRN PRN Reason: AGITATION Last Admin: 05/02/18 02:38 Dose: 50 mg Ranitidine HCl (Zantac -) 150 mg PO DAILY [facility] Last Admin: 05/03/18 09:07 Dose: Not Given Tamsulosin HCl (Flomax -) 0.4 mg PO [facility] Last Admin: 05/02/18 22:17 Dose: 0.4 mg - Objective Vital Signs: Vital Signs Temperature 97.8 F 05/03/18 07:30 Pulse Rate 68 05/03/18 09:35 Respiratory Rate 18 05/03/18 09:35 Blood Pressure 134/56 L 05/03/18 09:35 O2 Sat by Pulse Oximetry (%) 96 05/02/18 21:00 Constitutional: Yes: No Distress, Calm, Thin Neck: Yes: Supple Cardiovascular: Yes: Regular Rate and Rhythm Respiratory: Yes: Regular, Diminished Gastrointestinal: Yes: Normal Bowel Sounds, Soft Edema: No Wound/Incision: Yes: Dressing Dry and Intact Labs: CBC, BMP 05/03/18 08:00 05/03/18 08:00 INR, PTT INR 1.28 (0.83-1.09) H 05/03/18 09:30 Problem List - Problems (1) Pre-operative cardiovascular examination Code(s): Z01.810 - ENCOUNTER FOR PREPROCEDURAL CARDIOVASCULAR EXAMINATION (2) Diabetes Code(s): E11.9 - TYPE 2 DIABETES MELLITUS WITHOUT COMPLICATIONS Qualifiers: Diabetes mellitus type: type 1 Diabetes mellitus complication status: with circulatory complication (3) ESRD (end stage renal disease) on dialysis Code(s): N18.6 - END STAGE RENAL DISEASE; Z99.2 - DEPENDENCE ON RENAL DIALYSIS (4) Eschar of heel Code(s): R23.4 - CHANGES IN SKIN TEXTURE (5) CAD (coronary artery disease) Code(s): I25.10 - ATHSCL HEART DISEASE OF [place] CORONARY ARTERY W/O ANG PCTRS Qualifiers: Coronary Disease-Associated Artery/Lesion type: [place] artery [place] vs. transplanted heart: [place] heart Associated angina: without angina Qualified Code(s): I25.10 - Atherosclerotic heart disease of [place] coronary artery without angina pectoris (6) CHF (congestive heart failure) Code(s): I50.9 - HEART FAILURE, UNSPECIFIED (7) CAD (coronary artery disease) Code(s): I25.10 - ATHSCL HEART DISEASE OF [place] CORONARY ARTERY W/O ANG PCTRS Qualifiers: Coronary Disease-Associated Artery/Lesion type: [place] artery [place] vs. transplanted heart: [place] heart Associated angina: without angina Qualified Code(s): I25.10 - Atherosclerotic heart disease of [place] coronary artery without angina pectoris (8) HTN (hypertension) Code(s): I10 - ESSENTIAL (PRIMARY) HYPERTENSION Qualifiers: Hypertension type: essential hypertension Qualified Code(s): I10 - Essential (primary) hypertension (9) Hx of CABG Code(s): Z95.1 - PRESENCE OF AORTOCORONARY BYPASS GRAFT (10) Hypercholesterolemia Code(s): E78.00 - PURE HYPERCHOLESTEROLEMIA, UNSPECIFIED (11) PAD (peripheral artery disease) Code(s): I73.9 - PERIPHERAL VASCULAR DISEASE, UNSPECIFIED (12) S/P coronary artery stent placement Code(s): Z95.5 - PRESENCE OF CORONARY ANGIOPLASTY IMPLANT AND GRAFT Assessment/Plan 12/19/2017 Normal LV size with mild-mod decrease LV fxn, mild STEPHEN, mild TR, MR, can't exclude MV vegetation 1. PAD s/p LE bypass, heel wound (non healing) s/p angioplasty right posterior tibial artery, s/p angioplasty left anterior tibial artery, plan for right TMA vs BKA, left heel wound vac 2. HTN 3. Hypercholesterolemia 4. DM 5. Diastolic/Systolic LV dysfunction with class 0 NYHA classification LV failure 6. CAD s/p CABG, PCI/stent, demand ischemia 7. ESRD on HD 8. Anemia of CKD PLAN: 1. No absolute contraindication in proceeding with vascular intervention in view of absence of ischemic symptoms, decompensated congestive heart failure or malignant arrhythmias. 2. Continue Carvedilol 12.5 bid and Lipitor 40 qhs, Plavix held pre-op (had wound ooze post-debridement treated with plt transfusion), continue ASA 81 qd prei-op to minimize risk of very late stent thrombosis, resume Plavix once post- op hemostasis has been achieved, d/w vascular 3. Empiric antibiotic course, left wound vac care and right BKA as per vascular surgery, awaiting consent 4. HD per renal 5. DVT and GI prophylaxis
[2018-05-03] MEDS: CARVEDILOL 12.5 MG TABLET (FP) PO SCH ×2 (13:11→23:15)
[2018-05-03] MEDS: ZINC OXIDE 20% TOPICAL OINTMENT 454 GM JAR TP SCH (13:18)
[2018-05-03] MEDS: DIVALPROEX SODIUM 125 MG TABLET E.C. PO SCH ×2 (14:27→23:15)
[2018-05-03] MEDS: QUEtiapine FUMARATE 25 MG TABLET (FP) PO PRN (14:28)
[2018-05-03] MEDS ORDERED: EPOETIN ALFA 2,000 UNIT/1 ML VIAL IVPUSH ONE (14:56)
--- NOTE | 2018-05-03 14:56 | PN ---
Progress Note, Physician History of Present Illness: Pt seen and examined at bedside. He is awake and appears comfortable. He tolerated HD today. He is going to OR today. - Current Medication List Current Medications: Active Medications Acetaminophen (Tylenol -) 650 mg PO Q6H PRN PRN Reason: PAIN LEVEL 1-5 Artificial Tears (Artificial Tears) 1 drop OU Q12H PRN PRN Reason: DRY EYES Aspirin (Asa -) 81 mg PO DAILY [facility] Last Admin: 05/03/18 09:07 Dose: Not Given Atorvastatin Calcium (Lipitor -) 40 mg PO HS [facility] Last Admin: 05/02/18 22:17 Dose: 40 mg Calcium Acetate (Phoslo -) 667 mg PO TIDCM [facility] Last Admin: 05/03/18 14:27 Dose: Not Given Carvedilol (Coreg -) 12.5 mg PO BID [facility] Last Admin: 05/03/18 13:11 Dose: 12.5 mg Citalopram Hydrobromide (Celexa -) 20 mg PO DAILY [facility] Last Admin: 05/03/18 09:07 Dose: Not Given Collagenase (Santyl -) 1 applic TP DAILY [facility]; Protocol Last Admin: 05/02/18 11:20 Dose: 1 applic Divalproex Sodium (Depakote -) 125 mg PO BID [facility] Last Admin: 05/03/18 14:27 Dose: Not Given Docusate Sodium (Colace -) 300 mg PO HS [facility] Last Admin: 05/02/18 22:17 Dose: 300 mg Folic Acid (Folic Acid -) 1 mg PO DAILY [facility] Last Admin: 05/03/18 09:07 Dose: Not Given Gabapentin (Neurontin -) 100 mg PO BID [facility] Last Admin: 05/03/18 09:07 Dose: Not Given Haloperidol (Haldol -) 2 mg PO TID PRN PRN Reason: AGITATION Last Admin: 05/02/18 22:19 Dose: 2 mg Heparin Sodium (Porcine) (Heparin -) 5,000 unit SQ BID [facility] Last Admin: 05/03/18 09:07 Dose: Not Given Piperacillin Sod/Tazobactam (Sod 2.25 gm/ Dextrose) 50 mls @ 100 mls/hr IVPB Q8H-IV [facility]; Protocol Last Admin: 05/03/18 13:07 Dose: 100 mls/hr Insulin Aspart (Novolog Vial Sliding Scale -) 1 vial SQ ACHS [facility]; Protocol Last Admin: 05/03/18 14:27 Dose: Not Given Insulin Detemir (Levemir Vial) 10 units SQ [facility] Last Admin: 05/02/18 22:23 Dose: Not Given Lactobacillus Acidophilus (Bacid -) 1 tab PO DAILY [facility] Last Admin: 05/03/18 09:07 Dose: Not Given Multi-Ingredient Ointment (Zinc Oxide 20% Topical Oint) 1 gm TP DAILY [facility] Last Admin: 05/02/18 09:43 Dose: 1 applic Multivitamins (Total B With C -) 1 each PO DAILY [facility] Last Admin: 05/03/18 09:07 Dose: Not Given Ondansetron HCl (Zofran Injection) 4 mg IVPUSH Q6H PRN PRN Reason: NAUSEA AND/OR VOMITING Ondansetron HCl (Zofran Injection) 4 mg IVPUSH Q6H PRN PRN Reason: NAUSEA AND/OR VOMITING Quetiapine Fumarate (Seroquel -) 50 mg PO Q12H PRN PRN Reason: AGITATION Last Admin: 05/03/18 14:28 Dose: 50 mg Ranitidine HCl (Zantac -) 150 mg PO DAILY [facility] Last Admin: 05/03/18 09:07 Dose: Not Given Tamsulosin HCl (Flomax -) 0.4 mg PO [facility] Last Admin: 05/02/18 22:17 Dose: 0.4 mg - Objective Vital Signs: Vital Signs Temperature 98.6 F 05/03/18 13:16 Pulse Rate 71 05/03/18 13:16 Respiratory Rate 18 05/03/18 13:16 Blood Pressure 148/65 05/03/18 13:16 O2 Sat by Pulse Oximetry (%) 96 05/03/18 13:00 Constitutional: Yes: Calm Eyes: Yes: Conjunctiva Clear HENT: Yes: Atraumatic Cardiovascular: Yes: S1, S2 Respiratory: Yes: On Nasal O2 Gastrointestinal: Yes: Soft Genitourinary: Yes: Incontinence Musculoskeletal: Yes: WNL Edema: No Wound/Incision: Yes: Dressing Dry and Intact Neurological: Yes: Confusion Labs: CBC, BMP 05/03/18 08:00 05/03/18 08:00 INR, PTT INR 1.28 (0.83-1.09) H 05/03/18 09:30 Problem List - Problems (1) Diabetes Code(s): E11.9 - TYPE 2 DIABETES MELLITUS WITHOUT COMPLICATIONS Qualifiers: Diabetes mellitus type: type 1 Diabetes mellitus complication status: with circulatory complication (2) ESRD (end stage renal disease) on dialysis Code(s): N18.6 - END STAGE RENAL DISEASE; Z99.2 - DEPENDENCE ON RENAL DIALYSIS (3) Syncope Code(s): R55 - SYNCOPE AND COLLAPSE (4) Anemia Code(s): D64.9 - ANEMIA, UNSPECIFIED Assessment/Plan Current Medications Generic Name Dose Route Start Last Admin Trade Name Freq PRN Reason Stop Dose Admin Acetaminophen 650 mg 05/01/18 14:33 Tylenol - PO Q6H PRN PAIN LEVEL 1-5 Artificial Tears 1 drop 05/01/18 14:33 Artificial Tears OU Q12H PRN DRY EYES Aspirin 81 mg 05/02/18 10:00 05/03/18 09:07 Asa - PO Not Given DAILY [facility] Atorvastatin Calcium 40 mg 05/01/18 22:00 05/02/18 22:17 Lipitor - PO 40 mg HS [facility] Administration Calcium Acetate 667 mg 05/01/18 17:30 05/03/18 14:27 Phoslo - PO Not Given TIDCM [facility] Carvedilol 12.5 mg 05/01/18 22:00 05/03/18 13:11 Coreg - PO 12.5 mg BID [facility] Administration Citalopram Hydrobromide 20 mg 05/02/18 10:00 05/03/18 09:07 Celexa - PO Not Given DAILY [facility] Collagenase 1 applic 05/02/18 10:00 05/02/18 11:20 Santyl - TP 1 applic DAILY [facility] Administration Protocol Divalproex Sodium 125 mg 05/01/18 22:00 05/03/18 14:27 Depakote - PO Not Given BID [facility] Docusate Sodium 300 mg 05/01/18 22:00 05/02/18 22:17 Colace - PO 300 mg HS [facility] Administration Folic Acid 1 mg 05/02/18 10:00 05/03/18 09:07 Folic Acid - PO Not Given DAILY [facility] Gabapentin 100 mg 05/01/18 22:00 05/03/18 09:07 Neurontin - PO Not Given BID [facility] Haloperidol 2 mg 05/01/18 14:33 05/02/18 22:19 Haldol - PO 2 mg TID PRN Administration AGITATION Heparin Sodium (Porcine) 5,000 unit 05/02/18 22:00 05/03/18 09:07 Heparin - SQ Not Given BID [facility] Piperacillin Sod/Tazobactam 50 mls @ 100 mls/hr 05/01/18 18:00 05/03/18 13:07 Sod 2.25 gm/ Dextrose IVPB 100 mls/hr Q8H-IV [facility] Administration Protocol Insulin Aspart 1 vial 05/01/18 16:30 05/03/18 14:27 Novolog Vial Sliding Scale - SQ Not Given ACHS [facility] Protocol Insulin Detemir 10 units 05/01/18 22:00 05/02/18 22:23 Levemir Vial SQ Not Given HS [facility] Lactobacillus Acidophilus 1 tab 05/02/18 10:00 05/03/18 09:07 Bacid - PO Not Given DAILY [facility] Multi-Ingredient Ointment 1 gm 05/02/18 10:00 05/02/18 09:43 Zinc Oxide 20% Topical Oint TP 1 applic DAILY [facility] Administration Multivitamins 1 each 05/02/18 10:00 05/03/18 09:07 Total B With C - PO Not Given DAILY [facility] Ondansetron HCl 4 mg 05/01/18 14:26 Zofran Injection IVPUSH Q6H PRN NAUSEA AND/OR VOMITING Ondansetron HCl 4 mg 05/01/18 14:33 Zofran Injection IVPUSH Q6H PRN NAUSEA AND/OR VOMITING Quetiapine Fumarate 50 mg 05/01/18 14:33 05/03/18 14:28 Seroquel - PO 50 mg Q12H PRN Administration AGITATION Ranitidine HCl 150 mg 05/02/18 10:00 05/03/18 09:07 Zantac - PO Not Given DAILY [facility] Tamsulosin HCl 0.4 mg 05/01/18 22:00 05/02/18 22:17 Flomax - PO 0.4 mg HS [facility] Administration Impression 1. ESRD 2. anemia 3. HTN 4. Chol 5. DM 6. BPH 7. CAD 8. hypoglycemia 9. CHF 10. syncope 11. depression 12. PVD Plan - HD today - pt going for surgery - transfused blood on HD, did extend HD time to complete transfusion - epogen for anemia - cont wound care Dr Donovan
[2018-05-03] MEDS ORDERED: ONDANSETRON 4 MG/2 ML VIAL IVPUSH PRN ×4 (15:28→18:00)
[2018-05-03] MEDS ORDERED: PROMETHAZINE HCL 25 MG/1 ML VIAL IVPB PRN ×2 (15:28→18:00)
[2018-05-03] MEDS ORDERED: SODIUM CHLORIDE 1,000 ML IV SCH (15:30)
[2018-05-03] MEDS ORDERED: LIDOCAINE HCL/PF 2% SDV 5ML VIAL ONE (15:34)
[2018-05-03] MEDS ORDERED: PROPOFOL 20 ML ONE (15:34)
--- NOTE | 2018-05-03 16:01 | OP ---
DATE OF OPERATION: 05/01/2018 SURGEON: Augustin Gil M.D. PROCEDURE: Ultrasound guided cannulation of the left femoral artery. Angiogram of the left leg. Angioplasty of the anterior tibial artery. PREOPERATIVE DIAGNOSIS: Nonhealing wound of the left heel with peripheral arterial disease. POSTOPERATIVE DIAGNOSIS: Nonhealing wound of the left heel with peripheral arterial disease. ANESTHESIA: Fractional. ANESTHESIOLOGIST: Viral Saunders M.D. OPERATIVE FINDINGS: The left common, deep, and superficial femoral arteries were patent. There was moderate stenosis of the deep femoral artery. The popliteal artery was patent. There was runoff into it. The distal peroneal artery had collateral flow to the dorsum of the foot with a small dorsalis pedis artery visualized. The anterior tibial, posterior tibial arteries were mainly occluded throughout the calf, and there was no visible reconstitution of the posterior tibial artery. OPERATIVE PROCEDURE: Following routine patient identification with side and site verification, intravenous sedation was established. The left groin was prepped with ChloraPrep. Timeout was performed. Using real time duplex imaging, the left common femoral artery was identified, found to be pulsatile. 1% lidocaine was infiltrated in the skin proximal to the bifurcation of the artery, and the artery was cannulated with a micropuncture needle under ultrasound guidance. A wire was passed into the superficial femoral artery. A 5 [place] catheter was then exchanged over the wire, and then a long wire was advanced into the superficial femoral artery and a 5 [place] sheath placed. Patient was systemically heparinized. Angiography was then performed with dilute contrast using digital technique with the above-noted findings. The wire and catheter were advanced distally to the origin of the anterior tibial artery which was patent. A 0.014 inch wire catheter was then advanced distally through the tract of the anterior tibial artery using road mapping techniques. The catheter was advanced to the distal aspect of the calf but would not cross into the dorsalis pedis artery. Angioplasty of the proximal anterior tibial artery with 2-mm balloon was performed using a pressure insufflator. Repeat imaging revealed improved patency of the proximal anterior artery but no change in the distal artery. Further attempts at crossing into the small dorsalis pedis artery were unsuccessful. The wires were removed. The sheath was removed, and a Perclose device was used to seal the arteriotomy. Pressure dressing was applied, and the patient was taken to the recovery room in stable condition. AUGUSTIN GIL M.D. [id number]
[2018-05-03] MEDS ORDERED: DEXAMETHASONE SOD PHOSPHATE 4 MG/1 ML VIAL ONE (16:20)
--- NOTE | 2018-05-03 17:27 | OP ---
Operative Note - Note: Operative Date: 05/03/18 Pre-Operative Diagnosis: Gangrene right foot Operation: Right below knee amputation Findings: Viable skin, muscle and bone Surgeon: Augustin Schofield Sales Representative Health Insurance: Marty Vasquez Anesthesiologist/CENSUS CLERK: Jose Benítez Anesthesia: General Specimens Removed: Right leg Estimated Blood Loss (mls): 100
[2018-05-03] MEDS ORDERED: MORPHINE SULFATE 2 MG/ML VIAL IVPUSH PRN (17:29)
--- NOTE | 2018-05-03 17:38 | SURG ---
Surgery Used Car Manager Note Used Car Manager: Marty Vasquez PA-C Date of Service: 05/03/18 Diagnosis: Right foot gangrene Procedure: Right below knee amputation I was present for the entirety of the operative procedure. For further detail, please refer to operative report.
[2018-05-03] MEDS ORDERED: ARTIFICIAL TEARS (POLYVINYL ALCOHOL) OPTH DROPS OU PRN (18:00)
[2018-05-03] MEDS ORDERED: ACETAMINOPHEN 325 MG TABLET (FP) PO PRN (18:00)
[2018-05-03] MEDS ORDERED: HALOPERIDOL 1 MG TABLET (FP) PO PRN (18:00)
[2018-05-03] MEDS: COLLAGENASE CLOSTRIDIUM HIST. 30 GRAMS TUBE TP SCH (18:22)
[2018-05-03] MEDS: SODIUM CHLORIDE 1,000 ML IV SCH (21:00)
[2018-05-03] MEDS: DOCUSATE SODIUM 100 MG CAPSULE (FP) PO SCH (23:15)
[2018-05-03] MEDS: TAMSULOSIN HCL 0.4 MG CAP.ER.24H (FP) PO SCH (23:15)
[2018-05-03] MEDS: INSULIN (LEVEMIR) 100 UNITS/ML UNITS SQ SCH (23:16)
[2018-05-03] MEDS: ATORVASTATIN CA 40 MG TABLET (FP) PO SCH (23:16)
[2018-05-04] MEDS ORDERED: PIPERACILLIN/TAZOBACTAM 2.25 GM VIAL IVPB ONE ×4 (02:02→23:39)
[2018-05-04] MEDS ORDERED: DEXTROSE 5%-WATER - 50 ML IVPB ONE ×4 (02:02→23:39)
[2018-05-04] MEDS: PIPERACILLIN/TAZOB 2.25 GM 2.25 GM in DEXTROSE 5%-WATER - 50 ML IVPB SCH ×3 (02:05→17:03)
[2018-05-04] MEDS ORDERED: PT OWN MED DRAWER 7, Y5N ONE ×2 (05:44→23:52)
[2018-05-04] MEDS: MORPHINE SULFATE 2 MG/ML VIAL IVPUSH PRN (05:59)
[2018-05-04] MEDS: INSULIN SLIDING SCALE (NOVOLOG) 1 VIAL SQ SCH ×4 (07:31→22:35)
[2018-05-04] MEDS: CALCIUM ACETATE 667 MG CAPSULE (FP) PO SCH ×3 (07:53→16:47)
--- NOTE | 2018-05-04 09:33 | PN ---
Progress Note (short form) - Note Progress Note: Post op day#1.S/P Right BKA under GA uneventful.Patient stable.No any anesthesia related problem.Patient DC from the anesthesia care.
[2018-05-04 09:48] LABS: BASO % 0.7 % (0-2.0); EOS % 0.7 % (0-4.5); HEMATOCRIT 26.5 % (35.4-49); HEMOGLOBIN 8.9 GM/dL (11.7-16.9); LYMPH % 8.3 % (8-40); MCH 31.4 pg (25.7-33.7); MCHC 33.5 g/dl (32.0-35.9); MEAN CELL VOLUME 93.7 fl (80-96); MEAN PLT VOLUME 6.7 fl (7.5-11.1); NEUT % 80.3 % (42.8-82.8); PLATELET COUNT 284 K/MM3 (134-434); RBC 2.83 M/mm3 (4.00-5.60); RDW 16.8 % (11.9-15.9)
[2018-05-04] MEDS: CARVEDILOL 12.5 MG TABLET (FP) PO SCH ×2 (10:31→22:32)
[2018-05-04] MEDS: RANITIDINE HCL 150 MG TABLET (FP) PO SCH (10:31)
[2018-05-04] MEDS: VITAMIN B COMPLEX W/C COMBO TABLET (FP) PO SCH (10:31)
[2018-05-04] MEDS: ASPIRIN 81 MG CHEWABLE TABLETS PO SCH (10:31)
[2018-05-04] MEDS: CITALOPRAM HYDROBROMIDE 20 MG TABLET (FP) PO SCH (10:32)
[2018-05-04] MEDS: DIVALPROEX SODIUM 125 MG TABLET E.C. PO SCH ×2 (10:32→22:33)
[2018-05-04] MEDS: LACTOBACILLUS ACIDOPHILUS 1 TABLET PO SCH (10:32)
[2018-05-04] MEDS: GABAPENTIN 100 MG CAPSULE (FP) PO SCH ×2 (10:32→22:35)
[2018-05-04] MEDS: FOLIC ACID 1 MG TABLET (FP) PO SCH (10:32)
[2018-05-04] MEDS: ZINC OXIDE 20% TOPICAL OINTMENT 454 GM JAR TP SCH (10:33)
[2018-05-04] MEDS: COLLAGENASE CLOSTRIDIUM HIST. 30 GRAMS TUBE TP SCH (10:33)
[2018-05-04] MEDS: HEPARIN NA (PORCINE) 5,000 UNITS/ML 1ML VIAL SQ SCH ×2 (10:33→22:34)
--- NOTE | 2018-05-04 10:33 | PN ---
Progress Note (short form) - Note Progress Note: POD 1 VSS No complaints Dressing clean and dry Hgb 8.9 Stable OOB Dressing change Sunday. Continue Abx Problem List - Problems (1) PAD (peripheral artery disease) Code(s): I73.9 - PERIPHERAL VASCULAR DISEASE, UNSPECIFIED
--- NOTE | 2018-05-04 10:34 | PN ---
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 awake/ comfortable denies pain Vital Signs Temp 98.1 F 05/04/18 05:33 Pulse 60 05/04/18 05:33 Resp 18 05/04/18 05:33 BP 141/61 05/04/18 05:33 Pulse Ox 99 05/03/18 21:00 Intake & Output 05/03/18 05/03/18 05/04/18 11:59 23:59 11:59 Intake Total 50 232 264 Balance 50 232 264 Weight 155 lb 3.2 oz Intake: IV 182 264 Normal Saline - 1,000 ml 132 264 @ 42 mls/hr IV ASDIR [facility] Rx#:[id number] IVPB 50 50 Other: Voiding Method Incontinent Incontinent Incontinent # Unmeasured Voids Void 1 Bowel Movement Yes # Bowel Movements 1 Weight Measurement Method Patient Lift Scale Active Medications Acetaminophen (Tylenol -) 650 mg PO Q6H PRN PRN Reason: PAIN LEVEL 1-5 Artificial Tears (Artificial Tears) 1 drop OU Q12H PRN PRN Reason: DRY EYES Aspirin (Asa -) 81 mg PO DAILY [facility] Last Admin: 05/04/18 10:31 Dose: 81 mg Atorvastatin Calcium (Lipitor -) 40 mg PO [facility] Last Admin: 05/03/18 23:16 Dose: Not Given Calcium Acetate (Phoslo -) 667 mg PO TIDCM [facility] Last Admin: 05/04/18 07:53 Dose: 667 mg Carvedilol (Coreg -) 12.5 mg PO BID [facility] Last Admin: 05/04/18 10:31 Dose: 12.5 mg Citalopram Hydrobromide (Celexa -) 20 mg PO DAILY [facility] Last Admin: 05/04/18 10:32 Dose: 20 mg Collagenase (Santyl -) 1 applic TP DAILY [facility]; Protocol Last Admin: 05/04/18 10:33 Dose: Not Given Divalproex Sodium (Depakote -) 125 mg PO BID [facility] Last Admin: 05/04/18 10:32 Dose: Not Given Docusate Sodium (Colace -) 300 mg PO [facility] Last Admin: 05/03/18 23:15 Dose: Not Given Folic Acid (Folic Acid -) 1 mg PO DAILY [facility] Last Admin: 05/04/18 10:32 Dose: 1 mg Gabapentin (Neurontin -) 100 mg PO BID [facility] Last Admin: 05/04/18 10:32 Dose: 100 mg Haloperidol (Haldol -) 2 mg PO TID PRN PRN Reason: AGITATION Heparin Sodium (Porcine) (Heparin -) 5,000 unit SQ BID [facility] Last Admin: 05/04/18 10:33 Dose: 5,000 unit Piperacillin Sod/Tazobactam (Sod 2.25 gm/ Dextrose) 50 mls @ 100 mls/hr IVPB Q8H-IV [facility]; Protocol Last Admin: 05/04/18 10:33 Dose: 100 mls/hr Sodium Chloride (Normal Saline -) 1,000 mls @ 42 mls/hr IV ASDIR [facility] Last Admin: 05/03/18 21:00 Dose: 42 mls/hr Insulin Aspart (Novolog Vial Sliding Scale -) 1 vial SQ ACHS [facility]; Protocol Last Admin: 05/04/18 07:31 Dose: Not Given Insulin Detemir (Levemir Vial) 10 units SQ HS [facility] Last Admin: 05/03/18 23:16 Dose: Not Given Lactobacillus Acidophilus (Bacid -) 1 tab PO DAILY [facility] Last Admin: 05/04/18 10:32 Dose: 1 tab Morphine Sulfate (Morphine Sulfate) 1 mg IVPUSH Q3H PRN PRN Reason: PAIN LEVEL 4 - 6 Last Admin: 05/04/18 05:59 Dose: 1 mg Morphine Sulfate (Morphine Sulfate) 2 mg IVPUSH Q3H PRN PRN Reason: PAIN LEVEL 7 - 10 Multi-Ingredient Ointment (Zinc Oxide 20% Topical Oint) 1 gm TP DAILY [facility] Last Admin: 05/04/18 10:33 Dose: 1 applic Multivitamins (Total B With C -) 1 each PO DAILY [facility] Last Admin: 05/04/18 10:31 Dose: 1 each Ondansetron HCl (Zofran Injection) 4 mg IVPUSH Q6H PRN PRN Reason: NAUSEA AND/OR VOMITING Ondansetron HCl (Zofran Injection) 4 mg IVPUSH Q6H PRN PRN Reason: NAUSEA AND/OR VOMITING Promethazine HCl (Phenergan Injection -) 12.5 mg IVPB Q6H PRN PRN Reason: NAUSEA-FOR RESCUE AFTER 15 MIN Quetiapine Fumarate (Seroquel -) 50 mg PO Q12H PRN PRN Reason: AGITATION Ranitidine HCl (Zantac -) 150 mg PO DAILY [facility] Last Admin: 05/04/18 10:31 Dose: 150 mg Tamsulosin HCl (Flomax -) 0.4 mg PO HS [facility] Last Admin: 05/03/18 23:15 Dose: Not Given CBC, BMP 05/04/18 09:30 05/03/18 08:00 Physical Exam. Constitutional: Yes: No Distress, Comfortable. Neck: Yes: Supple. no jvd Cardiovascular: Yes: Regular Rate and Rhythm Respiratory: Yes: Diminished Gastrointestinal: Yes: Soft/ non tender. bs + Edema: No Wound/Incision: Yes: s/p bka-- dressing + Neurological: Yes: Alert Psychiatric: Yes: Alert,calm Assessment/Plan comfortable Continue present care abx-- pain control monitor cbc/ labs hd per renal will follow Problem List - Problems (1) Diabetes Code(s): E11.9 - TYPE 2 DIABETES MELLITUS WITHOUT COMPLICATIONS Qualifiers: Diabetes mellitus type: type 1 Diabetes mellitus complication status: with circulatory complication (2) ESRD (end stage renal disease) on dialysis Code(s): N18.6 - END STAGE RENAL DISEASE; Z99.2 - DEPENDENCE ON RENAL DIALYSIS (3) Infected pressure ulcer Code(s): L89.90 - PRESSURE ULCER OF UNSPECIFIED SITE, UNSPECIFIED STAGE; L08.9 - LOCAL INFECTION OF THE SKIN AND SUBCUTANEOUS TISSUE, UNSP (4) Syncope Code(s): R55 - SYNCOPE AND COLLAPSE (5) Acute metabolic encephalopathy due to hypoglycemia Code(s): G93.41 - METABOLIC ENCEPHALOPATHY; E16.2 - HYPOGLYCEMIA, UNSPECIFIED (6) Anemia Code(s): D64.9 - ANEMIA, UNSPECIFIED (7) CAD (coronary artery disease) Code(s): I25.10 - ATHSCL HEART DISEASE OF [place] CORONARY ARTERY W/O ANG PCTRS Qualifiers: Coronary Disease-Associated Artery/Lesion type: [place] artery [place] vs. transplanted heart: [place] heart Associated angina: without angina Qualified Code(s): I25.10 - Atherosclerotic heart disease of [place] coronary artery without angina pectoris (8) ESRD (end stage renal disease) on dialysis Code(s): N18.6 - END STAGE RENAL DISEASE; Z99.2 - DEPENDENCE ON RENAL DIALYSIS
--- NOTE | 2018-05-04 11:45 | PN ---
Progress Note, Physician Chief Complaint: Events noted History of Present Illness: Patient was seen and examined. Chart was reviewed Denies chest pain, SOB or palpitations - Current Medication List Current Medications: Active Medications Acetaminophen (Tylenol -) 650 mg PO Q6H PRN PRN Reason: PAIN LEVEL 1-5 Artificial Tears (Artificial Tears) 1 drop OU Q12H PRN PRN Reason: DRY EYES Aspirin (Asa -) 81 mg PO DAILY [facility] Last Admin: 05/04/18 10:31 Dose: 81 mg Atorvastatin Calcium (Lipitor -) 40 mg PO HS [facility] Last Admin: 05/03/18 23:16 Dose: Not Given Calcium Acetate (Phoslo -) 667 mg PO TIDCM [facility] Last Admin: 05/04/18 11:01 Dose: 667 mg Carvedilol (Coreg -) 12.5 mg PO BID [facility] Last Admin: 05/04/18 10:31 Dose: 12.5 mg Citalopram Hydrobromide (Celexa -) 20 mg PO DAILY [facility] Last Admin: 05/04/18 10:32 Dose: 20 mg Collagenase (Santyl -) 1 applic TP DAILY [facility]; Protocol Last Admin: 05/04/18 10:33 Dose: Not Given Divalproex Sodium (Depakote -) 125 mg PO BID [facility] Last Admin: 05/04/18 10:32 Dose: Not Given Docusate Sodium (Colace -) 300 mg PO HS [facility] Last Admin: 05/03/18 23:15 Dose: Not Given Folic Acid (Folic Acid -) 1 mg PO DAILY [facility] Last Admin: 05/04/18 10:32 Dose: 1 mg Gabapentin (Neurontin -) 100 mg PO BID [facility] Last Admin: 05/04/18 10:32 Dose: 100 mg Haloperidol (Haldol -) 2 mg PO TID PRN PRN Reason: AGITATION Heparin Sodium (Porcine) (Heparin -) 5,000 unit SQ BID [facility] Last Admin: 05/04/18 10:33 Dose: 5,000 unit Piperacillin Sod/Tazobactam (Sod 2.25 gm/ Dextrose) 50 mls @ 100 mls/hr IVPB Q8H-IV [facility]; Protocol Last Admin: 05/04/18 10:33 Dose: 100 mls/hr Sodium Chloride (Normal Saline -) 1,000 mls @ 42 mls/hr IV ASDIR [facility] Last Admin: 05/03/18 21:00 Dose: 42 mls/hr Insulin Aspart (Novolog Vial Sliding Scale -) 1 vial SQ [facility]; Protocol Last Admin: 05/04/18 11:04 Dose: 4 units Insulin Detemir (Levemir Vial) 10 units SQ [facility] Last Admin: 05/03/18 23:16 Dose: Not Given Lactobacillus Acidophilus (Bacid -) 1 tab PO DAILY [facility] Last Admin: 05/04/18 10:32 Dose: 1 tab Morphine Sulfate (Morphine Sulfate) 1 mg IVPUSH Q3H PRN PRN Reason: PAIN LEVEL 4 - 6 Last Admin: 05/04/18 05:59 Dose: 1 mg Morphine Sulfate (Morphine Sulfate) 2 mg IVPUSH Q3H PRN PRN Reason: PAIN LEVEL 7 - 10 Multi-Ingredient Ointment (Zinc Oxide 20% Topical Oint) 1 gm TP DAILY [facility] Last Admin: 05/04/18 10:33 Dose: 1 applic Multivitamins (Total B With C -) 1 each PO DAILY [facility] Last Admin: 05/04/18 10:31 Dose: 1 each Ondansetron HCl (Zofran Injection) 4 mg IVPUSH Q6H PRN PRN Reason: NAUSEA AND/OR VOMITING Ondansetron HCl (Zofran Injection) 4 mg IVPUSH Q6H PRN PRN Reason: NAUSEA AND/OR VOMITING Promethazine HCl (Phenergan Injection -) 12.5 mg IVPB Q6H PRN PRN Reason: NAUSEA-FOR RESCUE AFTER 15 MIN Quetiapine Fumarate (Seroquel -) 50 mg PO Q12H PRN PRN Reason: AGITATION Ranitidine HCl (Zantac -) 150 mg PO DAILY [facility] Last Admin: 05/04/18 10:31 Dose: 150 mg Tamsulosin HCl (Flomax -) 0.4 mg PO [facility] Last Admin: 05/03/18 23:15 Dose: Not Given - Objective Vital Signs: Vital Signs Temperature 97.9 F 05/04/18 10:00 Pulse Rate 61 05/04/18 10:00 Respiratory Rate 18 05/04/18 10:00 Blood Pressure 150/59 L 05/04/18 10:00 O2 Sat by Pulse Oximetry (%) 96 05/04/18 09:00 HENT: Yes: Atraumatic Cardiovascular: Yes: Regular Rate and Rhythm, S1, S2 Respiratory: Yes: Diminished Gastrointestinal: Yes: Normal Bowel Sounds, Soft. No: Tenderness Edema: No Labs: CBC, BMP 05/04/18 09:30 05/03/18 08:00 INR, PTT INR 1.28 (0.83-1.09) H 05/03/18 09:30 Problem List - Problems (1) Diabetes Code(s): E11.9 - TYPE 2 DIABETES MELLITUS WITHOUT COMPLICATIONS Qualifiers: Diabetes mellitus type: type 1 Diabetes mellitus complication status: with circulatory complication (2) ESRD (end stage renal disease) on dialysis Code(s): N18.6 - END STAGE RENAL DISEASE; Z99.2 - DEPENDENCE ON RENAL DIALYSIS (3) Eschar of heel Code(s): R23.4 - CHANGES IN SKIN TEXTURE (4) Infected pressure ulcer Code(s): L89.90 - PRESSURE ULCER OF UNSPECIFIED SITE, UNSPECIFIED STAGE; L08.9 - LOCAL INFECTION OF THE SKIN AND SUBCUTANEOUS TISSUE, UNSP (5) Altered mental status, unspecified Code(s): R41.82 - ALTERED MENTAL STATUS, UNSPECIFIED Qualifiers: Altered mental status type: transient alteration of awareness Qualified Code(s): R40.4 - Transient alteration of awareness (6) Anemia Code(s): D64.9 - ANEMIA, UNSPECIFIED (7) CAD (coronary artery disease) Code(s): I25.10 - ATHSCL HEART DISEASE OF [place] CORONARY ARTERY W/O ANG PCTRS Qualifiers: Coronary Disease-Associated Artery/Lesion type: [place] artery [place] vs. transplanted heart: [place] heart Associated angina: without angina Qualified Code(s): I25.10 - Atherosclerotic heart disease of [place] coronary artery without angina pectoris (8) CKD (chronic kidney disease) Code(s): N18.9 - CHRONIC KIDNEY DISEASE, UNSPECIFIED Qualifiers: Chronic kidney disease stage: unspecified stage Qualified Code(s): N18.9 - Chronic kidney disease, unspecified (9) Diastolic dysfunction Code(s): I51.9 - HEART DISEASE, UNSPECIFIED (10) HTN (hypertension) Code(s): I10 - ESSENTIAL (PRIMARY) HYPERTENSION Qualifiers: Hypertension type: essential hypertension Qualified Code(s): I10 - Essential (primary) hypertension (11) Hx of CABG Code(s): Z95.1 - PRESENCE OF AORTOCORONARY BYPASS GRAFT (12) Hypercholesterolemia Code(s): E78.00 - PURE HYPERCHOLESTEROLEMIA, UNSPECIFIED (13) PAD (peripheral artery disease) Code(s): I73.9 - PERIPHERAL VASCULAR DISEASE, UNSPECIFIED (14) Acute on chronic diastolic heart failure Code(s): I50.33 - ACUTE ON CHRONIC DIASTOLIC (CONGESTIVE) HEART FAILURE Assessment/Plan 1. PAD s/p LE bypass, heel wound (non healing) s/p angioplasty right posterior tibial artery, s/p angioplasty left anterior tibial artery, plan for right TMA vs BKA, left heel wound vac 2. HTN 3. Hypercholesterolemia 4. DM 5. Diastolic/Systolic LV dysfunction with class 0 NYHA classification LV failure 6. CAD s/p CABG, PCI/stent, demand ischemia 7. ESRD on HD 8. Anemia of CKD PLAN: 1. No absolute contraindication in proceeding with vascular intervention in view of absence of ischemic symptoms, decompensated congestive heart failure or malignant arrhythmias. 2. Continue Carvedilol, Lipitor, ASA and Plavix 3. Empiric antibiotic course, left wound vac care and right BKA as per vascular surgery 4. HD per renal 5. DVT and GI prophylaxis Magno Hernandez MD
--- NOTE | 2018-05-04 15:34 | PN ---
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 ESRD 2. anemia 3. HTN 4. Chol 5. DM 6. BPH 7. CAD 8. hypoglycemia 9. CHF 10. syncope 11. depression Active Medications Acetaminophen (Tylenol -) 650 mg PO Q6H PRN PRN Reason: PAIN LEVEL 1-5 Artificial Tears (Artificial Tears) 1 drop OU Q12H PRN PRN Reason: DRY EYES Aspirin (Asa -) 81 mg PO DAILY [facility] Last Admin: 05/04/18 10:31 Dose: 81 mg Atorvastatin Calcium (Lipitor -) 40 mg PO HS [facility] Last Admin: 05/03/18 23:16 Dose: Not Given Calcium Acetate (Phoslo -) 667 mg PO TIDCM [facility] Last Admin: 05/04/18 11:01 Dose: 667 mg Carvedilol (Coreg -) 12.5 mg PO BID [facility] Last Admin: 05/04/18 10:31 Dose: 12.5 mg Citalopram Hydrobromide (Celexa -) 20 mg PO DAILY [facility] Last Admin: 05/04/18 10:32 Dose: 20 mg Collagenase (Santyl -) 1 applic TP DAILY [facility]; Protocol Last Admin: 05/04/18 10:33 Dose: Not Given Divalproex Sodium (Depakote -) 125 mg PO BID [facility] Last Admin: 05/04/18 10:32 Dose: Not Given Docusate Sodium (Colace -) 300 mg PO HS [facility] Last Admin: 05/03/18 23:15 Dose: Not Given Folic Acid (Folic Acid -) 1 mg PO DAILY [facility] Last Admin: 05/04/18 10:32 Dose: 1 mg Gabapentin (Neurontin -) 100 mg PO BID [facility] Last Admin: 05/04/18 10:32 Dose: 100 mg Haloperidol (Haldol -) 2 mg PO TID PRN PRN Reason: AGITATION Heparin Sodium (Porcine) (Heparin -) 5,000 unit SQ BID [facility] Last Admin: 05/04/18 10:33 Dose: 5,000 unit Piperacillin Sod/Tazobactam (Sod 2.25 gm/ Dextrose) 50 mls @ 100 mls/hr IVPB Q8H-IV [facility]; Protocol Last Admin: 05/04/18 10:33 Dose: 100 mls/hr Sodium Chloride (Normal Saline -) 1,000 mls @ 42 mls/hr IV ASDIR [facility] Last Admin: 05/03/18 21:00 Dose: 42 mls/hr Insulin Aspart (Novolog Vial Sliding Scale -) 1 vial SQ [facility]; Protocol Last Admin: 05/04/18 11:04 Dose: 4 units Insulin Detemir (Levemir Vial) 10 units SQ HS [facility] Last Admin: 05/03/18 23:16 Dose: Not Given Lactobacillus Acidophilus (Bacid -) 1 tab PO DAILY [facility] Last Admin: 05/04/18 10:32 Dose: 1 tab Morphine Sulfate (Morphine Sulfate) 1 mg IVPUSH Q3H PRN PRN Reason: PAIN LEVEL 4 - 6 Last Admin: 05/04/18 05:59 Dose: 1 mg Morphine Sulfate (Morphine Sulfate) 2 mg IVPUSH Q3H PRN PRN Reason: PAIN LEVEL 7 - 10 Multi-Ingredient Ointment (Zinc Oxide 20% Topical Oint) 1 gm TP DAILY [facility] Last Admin: 05/04/18 10:33 Dose: 1 applic Multivitamins (Total B With C -) 1 each PO DAILY [facility] Last Admin: 05/04/18 10:31 Dose: 1 each Ondansetron HCl (Zofran Injection) 4 mg IVPUSH Q6H PRN PRN Reason: NAUSEA AND/OR VOMITING Ondansetron HCl (Zofran Injection) 4 mg IVPUSH Q6H PRN PRN Reason: NAUSEA AND/OR VOMITING Promethazine HCl (Phenergan Injection -) 12.5 mg IVPB Q6H PRN PRN Reason: NAUSEA-FOR RESCUE AFTER 15 MIN Quetiapine Fumarate (Seroquel -) 50 mg PO Q12H PRN PRN Reason: AGITATION Ranitidine HCl (Zantac -) 150 mg PO DAILY [facility] Last Admin: 05/04/18 10:31 Dose: 150 mg Tamsulosin HCl (Flomax -) 0.4 mg PO HS [facility] Last Admin: 05/03/18 23:15 Dose: Not Given Last Vital Signs Temp Pulse Resp BP Pulse Ox 97.6 F 63 18 117/49 L 96 05/04/18 13:42 05/04/18 13:42 05/04/18 13:42 05/04/18 13:42 05/04/18 09:00 CBC, BMP 04/12/18 10:00 04/12/18 13:30 IMP esrd no fluid overload Plan- HD sunday
[2018-05-04] MEDS: SODIUM CHLORIDE 1,000 ML IV SCH (22:30)
[2018-05-04] MEDS: DOCUSATE SODIUM 100 MG CAPSULE (FP) PO SCH (22:31)
[2018-05-04] MEDS: INSULIN (LEVEMIR) 100 UNITS/ML UNITS SQ SCH (22:34)
[2018-05-04] MEDS: TAMSULOSIN HCL 0.4 MG CAP.ER.24H (FP) PO SCH (22:34)
[2018-05-04] MEDS: ATORVASTATIN CA 40 MG TABLET (FP) PO SCH (22:35)
[2018-05-05] MEDS: PIPERACILLIN/TAZOB 2.25 GM 2.25 GM in DEXTROSE 5%-WATER - 50 ML IVPB SCH ×3 (00:58→17:02)
[2018-05-05] MEDS: MORPHINE SULFATE 2 MG/ML VIAL IVPUSH PRN (01:22)
[2018-05-05] MEDS: INSULIN SLIDING SCALE (NOVOLOG) 1 VIAL SQ SCH ×4 (06:15→21:44)
[2018-05-05] MEDS ORDERED: INSULIN (NOVOLOG) ASPART 100 UNITS/ML 10ML VIAL ONE (06:37)
[2018-05-05] MEDS ORDERED: INSULIN (LEVEMIR) 100 UNITS/ML UNITS SQ ONE (06:37)
[2018-05-05 06:56] LABS: BASO % 0.8 % (0-2.0); EOS % 3.6 % (0-4.5); HEMATOCRIT 23.4 % (35.4-49); HEMOGLOBIN 7.9 GM/dL (11.7-16.9); LYMPH % 9.2 % (8-40); MCH 31.5 pg (25.7-33.7); MCHC 33.5 g/dl (32.0-35.9); MEAN CELL VOLUME 93.9 fl (80-96); MEAN PLT VOLUME 6.9 fl (7.5-11.1); MONO % 10.4 % (3.8-10.2); PLATELET COUNT 249 K/MM3 (134-434); RDW 16.5 % (11.9-15.9); WHITE BLOOD COUNT 8.9 K/mm3 (4.0-10.0)
[2018-05-05] MEDS: CALCIUM ACETATE 667 MG CAPSULE (FP) PO SCH ×3 (07:50→16:34)
[2018-05-05] MEDS ORDERED: PIPERACILLIN/TAZOBACTAM 2.25 GM VIAL IVPB ONE ×2 (08:44→16:41)
[2018-05-05] MEDS ORDERED: DEXTROSE 5%-WATER - 50 ML IVPB ONE ×2 (08:44→16:42)
[2018-05-05] MEDS: RANITIDINE HCL 150 MG TABLET (FP) PO SCH (09:47)
[2018-05-05] MEDS: ASPIRIN 81 MG CHEWABLE TABLETS PO SCH (09:47)
[2018-05-05] MEDS: LACTOBACILLUS ACIDOPHILUS 1 TABLET PO SCH (09:47)
[2018-05-05] MEDS: FOLIC ACID 1 MG TABLET (FP) PO SCH (09:47)
[2018-05-05] MEDS: GABAPENTIN 100 MG CAPSULE (FP) PO SCH ×2 (09:47→21:37)
[2018-05-05] MEDS: ZINC OXIDE 20% TOPICAL OINTMENT 454 GM JAR TP SCH (09:47)
[2018-05-05] MEDS: VITAMIN B COMPLEX W/C COMBO TABLET (FP) PO SCH (09:47)
[2018-05-05] MEDS: CARVEDILOL 12.5 MG TABLET (FP) PO SCH ×2 (09:47→21:37)
[2018-05-05] MEDS: CITALOPRAM HYDROBROMIDE 20 MG TABLET (FP) PO SCH (09:47)
[2018-05-05] MEDS: COLLAGENASE CLOSTRIDIUM HIST. 30 GRAMS TUBE TP SCH (09:48)
[2018-05-05] MEDS: DIVALPROEX SODIUM 125 MG TABLET E.C. PO SCH ×2 (09:48→21:37)
[2018-05-05] MEDS: HEPARIN NA (PORCINE) 5,000 UNITS/ML 1ML VIAL SQ SCH ×2 (09:48→21:37)
[2018-05-05 09:57] LABS: ALBUMIN 1.9 g/dl (3.4-5.0); ALK PHOS 59 U/L (45-117); ANION GAP 15 MMOL/L (8-16); BILIRUBIN,TOTAL 0.4 mg/dL (0.2-1); BLOOD UREA NITROGEN 46 mg/dL (7-18); CALCIUM 7.7 mg/dL (8.5-10.1); CHLORIDE 100 mmol/L (98-107); CO2 25 mmol/L (21-32); CREATININE 5.9 mg/dL (0.55-1.3); GLUCOSE,RANDOM 234 mg/dL (74-106); POTASSIUM 4.1 mmol/L (3.5-5.1); SGOT/AST 20 U/L (15-37); SGPT/ALT 18 U/L (13-61); SODIUM 139 mmol/L (136-145)
--- NOTE | 2018-05-05 14:42 | PN ---
Progress Note (short form) - Note Progress Note: pod #2 comfortable alert/ awake denies pain Vital Signs Temp 97.7 F 05/05/18 10:00 Pulse 60 05/05/18 10:00 Resp 18 05/05/18 10:00 BP 124/59 L 05/05/18 10:00 Pulse Ox 100 05/05/18 09:00 Intake & Output 05/04/18 05/05/18 05/05/18 23:59 11:59 23:59 Intake Total 1062 1250 Balance 1062 1250 Intake: IV 462 450 Normal Saline - 1,000 ml 462 450 @ 42 mls/hr IV ASDIR [facility] Rx#:[id number] IVPB 100 100 Oral 500 700 Other: Voiding Method Incontinent Incontinent Active Medications Acetaminophen (Tylenol -) 650 mg PO Q6H PRN PRN Reason: PAIN LEVEL 1-5 Artificial Tears (Artificial Tears) 1 drop OU Q12H PRN PRN Reason: DRY EYES Aspirin (Asa -) 81 mg PO DAILY [facility] Last Admin: 05/05/18 09:47 Dose: 81 mg Atorvastatin Calcium (Lipitor -) 40 mg PO [facility] Last Admin: 05/04/18 22:35 Dose: 40 mg Calcium Acetate (Phoslo -) 667 mg PO TIDCM [facility] Last Admin: 05/05/18 11:05 Dose: 667 mg Carvedilol (Coreg -) 12.5 mg PO BID [facility] Last Admin: 05/05/18 09:47 Dose: 12.5 mg Citalopram Hydrobromide (Celexa -) 20 mg PO DAILY [facility] Last Admin: 05/05/18 09:47 Dose: 20 mg Collagenase (Santyl -) 1 applic TP DAILY [facility]; Protocol Last Admin: 05/05/18 09:48 Dose: Not Given Divalproex Sodium (Depakote -) 125 mg PO BID [facility] Last Admin: 05/05/18 09:48 Dose: 125 mg Docusate Sodium (Colace -) 300 mg PO [facility] Last Admin: 05/04/18 22:31 Dose: Not Given Folic Acid (Folic Acid -) 1 mg PO DAILY [facility] Last Admin: 05/05/18 09:47 Dose: 1 mg Gabapentin (Neurontin -) 100 mg PO BID [facility] Last Admin: 05/05/18 09:47 Dose: 100 mg Haloperidol (Haldol -) 2 mg PO TID PRN PRN Reason: AGITATION Heparin Sodium (Porcine) (Heparin -) 5,000 unit SQ BID [facility] Last Admin: 05/05/18 09:48 Dose: 5,000 unit Piperacillin Sod/Tazobactam (Sod 2.25 gm/ Dextrose) 50 mls @ 100 mls/hr IVPB Q8H-IV [facility]; Protocol Last Admin: 05/05/18 09:46 Dose: 100 mls/hr Sodium Chloride (Normal Saline -) 1,000 mls @ 42 mls/hr IV ASDIR [facility] Last Admin: 05/04/18 22:30 Dose: 42 mls/hr Insulin Aspart (Novolog Vial Sliding Scale -) 1 vial SQ ACHS [facility]; Protocol Last Admin: 05/05/18 11:08 Dose: Not Given Insulin Detemir (Levemir Vial) 10 units SQ HS [facility] Last Admin: 05/04/18 22:34 Dose: 10 unit Lactobacillus Acidophilus (Bacid -) 1 tab PO DAILY [facility] Last Admin: 05/05/18 09:47 Dose: 1 tab Morphine Sulfate (Morphine Sulfate) 1 mg IVPUSH Q3H PRN PRN Reason: PAIN LEVEL 4 - 6 Last Admin: 05/05/18 01:22 Dose: 1 mg Morphine Sulfate (Morphine Sulfate) 2 mg IVPUSH Q3H PRN PRN Reason: PAIN LEVEL 7 - 10 Multi-Ingredient Ointment (Zinc Oxide 20% Topical Oint) 1 gm TP DAILY [facility] Last Admin: 05/05/18 09:47 Dose: 1 applic Multivitamins (Total B With C -) 1 each PO DAILY [facility] Last Admin: 05/05/18 09:47 Dose: 1 each Ondansetron HCl (Zofran Injection) 4 mg IVPUSH Q6H PRN PRN Reason: NAUSEA AND/OR VOMITING Ondansetron HCl (Zofran Injection) 4 mg IVPUSH Q6H PRN PRN Reason: NAUSEA AND/OR VOMITING Promethazine HCl (Phenergan Injection -) 12.5 mg IVPB Q6H PRN PRN Reason: NAUSEA-FOR RESCUE AFTER 15 MIN Quetiapine Fumarate (Seroquel -) 50 mg PO Q12H PRN PRN Reason: AGITATION Ranitidine HCl (Zantac -) 150 mg PO DAILY [facility] Last Admin: 05/05/18 09:47 Dose: 150 mg Tamsulosin HCl (Flomax -) 0.4 mg PO HS [facility] Last Admin: 05/04/18 22:34 Dose: 0.4 mg CBC, BMP 05/05/18 05:30 05/05/18 05:30 Physical Exam. Constitutional: Yes: No Distress, Comfortable. Neck: Yes: Supple. no jvd Cardiovascular: Yes: Regular Rate and Rhythm Respiratory: Yes: Diminished Gastrointestinal: Yes: Soft/ non tender. bs + Edema: No Wound/Incision: Yes: s/p bka-- dressing + Neurological: Yes: Alert Psychiatric: Yes: Alert,calm Assessment/Plan comfortable Continue present care abx-- d/c ? i/d to follow pain control hd per renal d/c planning will follow. Problem List - Problems (1) Diabetes Code(s): E11.9 - TYPE 2 DIABETES MELLITUS WITHOUT COMPLICATIONS Qualifiers: Diabetes mellitus type: type 1 Diabetes mellitus complication status: with circulatory complication (2) ESRD (end stage renal disease) on dialysis Code(s): N18.6 - END STAGE RENAL DISEASE; Z99.2 - DEPENDENCE ON RENAL DIALYSIS (3) Infected pressure ulcer Code(s): L89.90 - PRESSURE ULCER OF UNSPECIFIED SITE, UNSPECIFIED STAGE; L08.9 - LOCAL INFECTION OF THE SKIN AND SUBCUTANEOUS TISSUE, UNSP (4) Syncope Code(s): R55 - SYNCOPE AND COLLAPSE (5) Acute metabolic encephalopathy due to hypoglycemia Code(s): G93.41 - METABOLIC ENCEPHALOPATHY; E16.2 - HYPOGLYCEMIA, UNSPECIFIED (6) Anemia Code(s): D64.9 - ANEMIA, UNSPECIFIED (7) CAD (coronary artery disease) Code(s): I25.10 - ATHSCL HEART DISEASE OF [place] CORONARY ARTERY W/O ANG PCTRS Qualifiers: Coronary Disease-Associated Artery/Lesion type: [place] artery [place] vs. transplanted heart: [place] heart Associated angina: without angina Qualified Code(s): I25.10 - Atherosclerotic heart disease of [place] coronary artery without angina pectoris (8) ESRD (end stage renal disease) on dialysis Code(s): N18.6 - END STAGE RENAL DISEASE; Z99.2 - DEPENDENCE ON RENAL DIALYSIS
[2018-05-05] MEDS: SODIUM CHLORIDE 1,000 ML IV SCH (17:02)
--- NOTE | 2018-05-05 20:37 | PN ---
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 ESRD 2. anemia 3. HTN 4. Chol 5. DM 6. BPH 7. CAD 8. hypoglycemia 9. CHF 10. syncope 11. depression Current Medications Acetaminophen (Tylenol -) 650 mg PO Q6H PRN PRN Reason: PAIN LEVEL 1-5 Artificial Tears (Artificial Tears) 1 drop OU Q12H PRN PRN Reason: DRY EYES Aspirin (Asa -) 81 mg PO DAILY [facility] Last Admin: 05/05/18 09:47 Dose: 81 mg Atorvastatin Calcium (Lipitor -) 40 mg PO HS [facility] Last Admin: 05/04/18 22:35 Dose: 40 mg Calcium Acetate (Phoslo -) 667 mg PO TIDCM [facility] Last Admin: 05/05/18 16:34 Dose: 667 mg Carvedilol (Coreg -) 12.5 mg PO BID [facility] Last Admin: 05/05/18 09:47 Dose: 12.5 mg Citalopram Hydrobromide (Celexa -) 20 mg PO DAILY [facility] Last Admin: 05/05/18 09:47 Dose: 20 mg Collagenase (Santyl -) 1 applic TP DAILY [facility]; Protocol Last Admin: 05/05/18 09:48 Dose: Not Given Divalproex Sodium (Depakote -) 125 mg PO BID [facility] Last Admin: 05/05/18 09:48 Dose: 125 mg Docusate Sodium (Colace -) 300 mg PO HS [facility] Last Admin: 05/04/18 22:31 Dose: Not Given Folic Acid (Folic Acid -) 1 mg PO DAILY [facility] Last Admin: 05/05/18 09:47 Dose: 1 mg Gabapentin (Neurontin -) 100 mg PO BID [facility] Last Admin: 05/05/18 09:47 Dose: 100 mg Haloperidol (Haldol -) 2 mg PO TID PRN PRN Reason: AGITATION Heparin Sodium (Porcine) (Heparin -) 5,000 unit SQ BID [facility] Last Admin: 05/05/18 09:48 Dose: 5,000 unit Piperacillin Sod/Tazobactam (Sod 2.25 gm/ Dextrose) 50 mls @ 100 mls/hr IVPB Q8H-IV [facility]; Protocol Last Admin: 05/05/18 17:02 Dose: 100 mls/hr Sodium Chloride (Normal Saline -) 1,000 mls @ 42 mls/hr IV ASDIR [facility] Last Admin: 05/05/18 17:02 Dose: Not Given Insulin Aspart (Novolog Vial Sliding Scale -) 1 vial SQ [facility]; Protocol Last Admin: 05/05/18 16:37 Dose: 4 units Insulin Detemir (Levemir Vial) 10 units SQ HS [facility] Last Admin: 05/04/18 22:34 Dose: 10 unit Lactobacillus Acidophilus (Bacid -) 1 tab PO DAILY [facility] Last Admin: 05/05/18 09:47 Dose: 1 tab Morphine Sulfate (Morphine Sulfate) 1 mg IVPUSH Q3H PRN PRN Reason: PAIN LEVEL 4 - 6 Last Admin: 05/05/18 01:22 Dose: 1 mg Morphine Sulfate (Morphine Sulfate) 2 mg IVPUSH Q3H PRN PRN Reason: PAIN LEVEL 7 - 10 Multi-Ingredient Ointment (Zinc Oxide 20% Topical Oint) 1 gm TP DAILY [facility] Last Admin: 05/05/18 09:47 Dose: 1 applic Multivitamins (Total B With C -) 1 each PO DAILY [facility] Last Admin: 05/05/18 09:47 Dose: 1 each Ondansetron HCl (Zofran Injection) 4 mg IVPUSH Q6H PRN PRN Reason: NAUSEA AND/OR VOMITING Ondansetron HCl (Zofran Injection) 4 mg IVPUSH Q6H PRN PRN Reason: NAUSEA AND/OR VOMITING Promethazine HCl (Phenergan Injection -) 12.5 mg IVPB Q6H PRN PRN Reason: NAUSEA-FOR RESCUE AFTER 15 MIN Quetiapine Fumarate (Seroquel -) 50 mg PO Q12H PRN PRN Reason: AGITATION Ranitidine HCl (Zantac -) 150 mg PO DAILY [facility] Last Admin: 05/05/18 09:47 Dose: 150 mg Tamsulosin HCl (Flomax -) 0.4 mg PO [facility] Last Admin: 05/04/18 22:34 Dose: 0.4 mg Last Vital Signs Temp Pulse Resp BP Pulse Ox 97.8 F 69 18 134/53 L 100 05/05/18 19:29 05/05/18 19:29 05/05/18 19:29 05/05/18 19:29 05/05/18 09:00 lungs clear heart reg abd soft nontender CBC, BMP 05/05/18 05:30 09/30/18 05:30 IMP esrd no fluid overload pod 2 Plan- HD sunday
[2018-05-05] MEDS ORDERED: SODIUM CHLORIDE 250 ML IV PRN (20:40)
[2018-05-05] MEDS ORDERED: PT OWN MED DRAWER 7, Y5N ONE (21:34)
[2018-05-05] MEDS: TAMSULOSIN HCL 0.4 MG CAP.ER.24H (FP) PO SCH (21:37)
[2018-05-05] MEDS: DOCUSATE SODIUM 100 MG CAPSULE (FP) PO SCH (21:37)
[2018-05-05] MEDS: ATORVASTATIN CA 40 MG TABLET (FP) PO SCH (21:37)
[2018-05-05] MEDS: INSULIN (LEVEMIR) 100 UNITS/ML UNITS SQ SCH (21:38)
[2018-05-06] MEDS ORDERED: PIPERACILLIN/TAZOBACTAM 2.25 GM VIAL IVPB ONE ×3 (02:21→18:33)
[2018-05-06] MEDS ORDERED: DEXTROSE 5%-WATER - 50 ML IVPB ONE ×3 (02:21→18:33)
[2018-05-06] MEDS: PIPERACILLIN/TAZOB 2.25 GM 2.25 GM in DEXTROSE 5%-WATER - 50 ML IVPB SCH ×3 (02:36→18:43)
[2018-05-06] MEDS: INSULIN SLIDING SCALE (NOVOLOG) 1 VIAL SQ SCH ×4 (06:14→22:43)
[2018-05-06] MEDS: CALCIUM ACETATE 667 MG CAPSULE (FP) PO SCH ×3 (07:06→18:43)
[2018-05-06] MEDS: GABAPENTIN 100 MG CAPSULE (FP) PO SCH ×2 (09:43→22:42)
[2018-05-06] MEDS: DIVALPROEX SODIUM 125 MG TABLET E.C. PO SCH ×2 (09:43→23:14)
[2018-05-06] MEDS: VITAMIN B COMPLEX W/C COMBO TABLET (FP) PO SCH (09:43)
[2018-05-06] MEDS: HEPARIN NA (PORCINE) 5,000 UNITS/ML 1ML VIAL SQ SCH ×2 (09:43→22:42)
[2018-05-06] MEDS: CITALOPRAM HYDROBROMIDE 20 MG TABLET (FP) PO SCH (09:43)
[2018-05-06] MEDS: LACTOBACILLUS ACIDOPHILUS 1 TABLET PO SCH (09:43)
[2018-05-06] MEDS: FOLIC ACID 1 MG TABLET (FP) PO SCH (09:43)
[2018-05-06] MEDS: RANITIDINE HCL 150 MG TABLET (FP) PO SCH (09:43)
[2018-05-06] MEDS: ASPIRIN 81 MG CHEWABLE TABLETS PO SCH (09:43)
[2018-05-06] MEDS: CARVEDILOL 12.5 MG TABLET (FP) PO SCH ×2 (09:43→22:42)
[2018-05-06] MEDS: ZINC OXIDE 20% TOPICAL OINTMENT 454 GM JAR TP SCH (09:45)
[2018-05-06] MEDS: COLLAGENASE CLOSTRIDIUM HIST. 30 GRAMS TUBE TP SCH (09:45)
[2018-05-06] MEDS ORDERED: INSULIN (NOVOLOG) ASPART 100 UNITS/ML 10ML VIAL ONE (10:35)
--- NOTE | 2018-05-06 12:17 | PN ---
Progress Note (short form) - Note Progress Note: Pt seen and examined. Laying in bed sleeping in nad. No complaints of pain. Last Vital Signs Temp Pulse Resp BP Pulse Ox 98.4 F 66 20 120/62 96 05/06/18 10:00 05/06/18 10:00 05/06/18 10:00 05/06/18 10:00 05/06/18 09:00 Vital Signs Temp 98.4 F 05/06/18 10:00 Pulse 66 05/06/18 10:00 Resp 20 05/06/18 10:00 BP 120/62 05/06/18 10:00 Pulse Ox 96 05/06/18 09:00 Intake & Output 05/05/18 05/06/18 05/06/18 23:59 11:59 23:59 Intake Total 1012 1000 Balance 1012 1000 Intake: IV 462 1000 Normal Saline - 1,000 ml 462 1000 @ 42 mls/hr IV ASDIR [facility] Rx#:[id number] saline lock 0 IVPB 100 Oral 450 Other: Voiding Method Diaper Diaper Abnormal Lab Results 05/03/18 09:30 Crossmatch See Detail CBC, BMP 05/05/18 05:30 05/05/18 05:30 Gen: resting comfortably, in nad Ext: R bka with Ki in place, stump dressing removed, incision c/d/i, venkata in place, no erythema or active bleeding. Small amount of old clot at medial aspect of incision. Small scab over patella. Redressed with xeroform 4x4, and kerlix, KI secured. A/P: 72 y/o M w/ PMHx CAD c/b NC s/p PCI/CABG, HTN, hypercholesterolemia, DM, PAD, anemia, ESRD on HD and neurogenic bladder admitted 03/29 with b/l le heel ulcers, now s/p excisional debridement of b/l heel wounds (04/22), s/p Angiogram left leg, angioplasty [id number] 05/01, s/p R bka 05/03. Wound stable. H/H 7.9/23.9 today from 8.9/26.5 yesterday, pt s/p 1 unit pRBC . Primary team planning to check labs at HD -change xeroform,/kerlix daily, please keep 4x4 gauze over patellar knee scab when KI is in place to prevent breakdown -Continue abx per primary team/ID -transfuse prn
--- NOTE | 2018-05-06 12:20 | PN ---
Progress Note (short form) - Note Progress Note: comfortable no new issues pod # 3 Vital Signs Temp 98.4 F 05/06/18 10:00 Pulse 66 05/06/18 10:00 Resp 20 05/06/18 10:00 BP 120/62 05/06/18 10:00 Pulse Ox 96 05/06/18 09:00 Intake & Output 05/05/18 05/06/18 05/06/18 23:59 11:59 23:59 Intake Total 1012 1000 Balance 1012 1000 Intake: IV 462 1000 Normal Saline - 1,000 ml 462 1000 @ 42 mls/hr IV ASDIR [facility] Rx#:[id number] saline lock 0 IVPB 100 Oral 450 Other: Voiding Method Diaper Diaper Active Medications Acetaminophen (Tylenol -) 650 mg PO Q6H PRN PRN Reason: PAIN LEVEL 1-5 Artificial Tears (Artificial Tears) 1 drop OU Q12H PRN PRN Reason: DRY EYES Aspirin (Asa -) 81 mg PO DAILY [facility] Last Admin: 05/06/18 09:43 Dose: 81 mg Atorvastatin Calcium (Lipitor -) 40 mg PO HS [facility] Last Admin: 05/05/18 21:37 Dose: 40 mg Calcium Acetate (Phoslo -) 667 mg PO TIDCM [facility] Last Admin: 05/06/18 11:08 Dose: 667 mg Carvedilol (Coreg -) 12.5 mg PO BID [facility] Last Admin: 05/06/18 09:43 Dose: 12.5 mg Citalopram Hydrobromide (Celexa -) 20 mg PO DAILY [facility] Last Admin: 05/06/18 09:43 Dose: 20 mg Collagenase (Santyl -) 1 applic TP DAILY [facility]; Protocol Last Admin: 05/06/18 09:45 Dose: Not Given Divalproex Sodium (Depakote -) 125 mg PO BID [facility] Last Admin: 05/06/18 09:43 Dose: 125 mg Docusate Sodium (Colace -) 300 mg PO HS [facility] Last Admin: 05/05/18 21:37 Dose: 300 mg Folic Acid (Folic Acid -) 1 mg PO DAILY [facility] Last Admin: 05/06/18 09:43 Dose: 1 mg Gabapentin (Neurontin -) 100 mg PO BID [facility] Last Admin: 05/06/18 09:43 Dose: 100 mg Haloperidol (Haldol -) 2 mg PO TID PRN PRN Reason: AGITATION Heparin Sodium (Porcine) (Heparin -) 5,000 unit SQ BID [facility] Last Admin: 05/06/18 09:43 Dose: 5,000 unit Piperacillin Sod/Tazobactam (Sod 2.25 gm/ Dextrose) 50 mls @ 100 mls/hr IVPB Q8H-IV [facility]; Protocol Last Admin: 05/06/18 09:42 Dose: 100 mls/hr Sodium Chloride (Normal Saline -) 1,000 mls @ 42 mls/hr IV ASDIR [facility] Last Admin: 05/05/18 17:02 Dose: Not Given Sodium Chloride (Normal Saline -) 250 mls @ 3,000 mls/hr IV PRN PRN PRN Reason: Hypotension during Dialysis Stop: 05/06/18 20:41 Insulin Aspart (Novolog Vial Sliding Scale -) 1 vial SQ ACHS [facility]; Protocol Last Admin: 05/06/18 11:12 Dose: Not Given Insulin Detemir (Levemir Vial) 10 units SQ HS [facility] Last Admin: 05/05/18 21:38 Dose: 10 unit Lactobacillus Acidophilus (Bacid -) 1 tab PO DAILY [facility] Last Admin: 05/06/18 09:43 Dose: 1 tab Morphine Sulfate (Morphine Sulfate) 1 mg IVPUSH Q3H PRN PRN Reason: PAIN LEVEL 4 - 6 Last Admin: 05/05/18 01:22 Dose: 1 mg Morphine Sulfate (Morphine Sulfate) 2 mg IVPUSH Q3H PRN PRN Reason: PAIN LEVEL 7 - 10 Multi-Ingredient Ointment (Zinc Oxide 20% Topical Oint) 1 gm TP DAILY [facility] Last Admin: 05/06/18 09:45 Dose: 1 applic Multivitamins (Total B With C -) 1 each PO DAILY [facility] Last Admin: 05/06/18 09:43 Dose: 1 each Ondansetron HCl (Zofran Injection) 4 mg IVPUSH Q6H PRN PRN Reason: NAUSEA AND/OR VOMITING Ondansetron HCl (Zofran Injection) 4 mg IVPUSH Q6H PRN PRN Reason: NAUSEA AND/OR VOMITING Promethazine HCl (Phenergan Injection -) 12.5 mg IVPB Q6H PRN PRN Reason: NAUSEA-FOR RESCUE AFTER 15 MIN Quetiapine Fumarate (Seroquel -) 50 mg PO Q12H PRN PRN Reason: AGITATION Ranitidine HCl (Zantac -) 150 mg PO DAILY [facility] Last Admin: 05/06/18 09:43 Dose: 150 mg Tamsulosin HCl (Flomax -) 0.4 mg PO HS [facility] Last Admin: 05/05/18 21:37 Dose: 0.4 mg CBC, BMP 05/05/18 05:30 05/05/18 05:30 Physical Exam. Constitutional: Yes: No Distress, Comfortable. Neck: Yes: Supple. no jvd Cardiovascular: Yes: Regular Rate and Rhythm Respiratory: Yes: Diminished Gastrointestinal: Yes: Soft/ non tender. bs + Edema: No Wound/Incision: Yes: s/p bka-- dressing + Neurological: Yes: Alert Psychiatric: Yes: Alert,calm Assessment/Plan comfortable Continue present care abx-- d/c ? i/d to follow-- discussed with nursing staff check cbc with dialysis today pain control vascular to follow today for dressing change d/c planning discussed with nursing staff will follow. Problem List - Problems (1) Diabetes Code(s): E11.9 - TYPE 2 DIABETES MELLITUS WITHOUT COMPLICATIONS (2) ESRD (end stage renal disease) on dialysis Code(s): N18.6 - END STAGE RENAL DISEASE; Z99.2 - DEPENDENCE ON RENAL DIALYSIS (3) Infected pressure ulcer Code(s): L89.90 - PRESSURE ULCER OF UNSPECIFIED SITE, UNSPECIFIED STAGE; L08.9 - LOCAL INFECTION OF THE SKIN AND SUBCUTANEOUS TISSUE, UNSP (4) Syncope Code(s): R55 - SYNCOPE AND COLLAPSE (5) Acute metabolic encephalopathy due to hypoglycemia Code(s): G93.41 - METABOLIC ENCEPHALOPATHY; E16.2 - HYPOGLYCEMIA, UNSPECIFIED (6) Anemia Code(s): D64.9 - ANEMIA, UNSPECIFIED (7) CAD (coronary artery disease) Code(s): I25.10 - ATHSCL HEART DISEASE OF [place] CORONARY ARTERY W/O ANG PCTRS Qualifiers: Qualified Code(s): I25.10 - Atherosclerotic heart disease of [place] coronary artery without angina pectoris (8) ESRD (end stage renal disease) on dialysis Code(s): N18.6 - END STAGE RENAL DISEASE; Z99.2 - DEPENDENCE ON RENAL DIALYSIS
--- NOTE | 2018-05-06 13:40 | PN ---
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 - Current Medication List Current Medications: Active Medications Acetaminophen (Tylenol -) 650 mg PO Q6H PRN PRN Reason: PAIN LEVEL 1-5 Artificial Tears (Artificial Tears) 1 drop OU Q12H PRN PRN Reason: DRY EYES Aspirin (Asa -) 81 mg PO DAILY [facility] Last Admin: 05/06/18 09:43 Dose: 81 mg Atorvastatin Calcium (Lipitor -) 40 mg PO HS [facility] Last Admin: 05/05/18 21:37 Dose: 40 mg Calcium Acetate (Phoslo -) 667 mg PO TIDCM [facility] Last Admin: 05/06/18 11:08 Dose: 667 mg Carvedilol (Coreg -) 12.5 mg PO BID [facility] Last Admin: 05/06/18 09:43 Dose: 12.5 mg Citalopram Hydrobromide (Celexa -) 20 mg PO DAILY [facility] Last Admin: 05/06/18 09:43 Dose: 20 mg Collagenase (Santyl -) 1 applic TP DAILY [facility]; Protocol Last Admin: 05/06/18 09:45 Dose: Not Given Divalproex Sodium (Depakote -) 125 mg PO BID [facility] Last Admin: 05/06/18 09:43 Dose: 125 mg Docusate Sodium (Colace -) 300 mg PO HS [facility] Last Admin: 05/05/18 21:37 Dose: 300 mg Folic Acid (Folic Acid -) 1 mg PO DAILY [facility] Last Admin: 05/06/18 09:43 Dose: 1 mg Gabapentin (Neurontin -) 100 mg PO BID [facility] Last Admin: 05/06/18 09:43 Dose: 100 mg Haloperidol (Haldol -) 2 mg PO TID PRN PRN Reason: AGITATION Heparin Sodium (Porcine) (Heparin -) 5,000 unit SQ BID [facility] Last Admin: 05/06/18 09:43 Dose: 5,000 unit Piperacillin Sod/Tazobactam (Sod 2.25 gm/ Dextrose) 50 mls @ 100 mls/hr IVPB Q8H-IV [facility]; Protocol Last Admin: 05/06/18 09:42 Dose: 100 mls/hr Sodium Chloride (Normal Saline -) 1,000 mls @ 42 mls/hr IV [facility] Last Admin: 05/05/18 17:02 Dose: Not Given Sodium Chloride (Normal Saline -) 250 mls @ 3,000 mls/hr IV PRN PRN PRN Reason: Hypotension during Dialysis Stop: 05/06/18 20:41 Insulin Aspart (Novolog Vial Sliding Scale -) 1 vial SQ [facility]; Protocol Last Admin: 05/06/18 11:12 Dose: Not Given Insulin Detemir (Levemir Vial) 10 units SQ [facility] Last Admin: 05/05/18 21:38 Dose: 10 unit Lactobacillus Acidophilus (Bacid -) 1 tab PO DAILY [facility] Last Admin: 05/06/18 09:43 Dose: 1 tab Morphine Sulfate (Morphine Sulfate) 1 mg IVPUSH Q3H PRN PRN Reason: PAIN LEVEL 4 - 6 Last Admin: 05/05/18 01:22 Dose: 1 mg Morphine Sulfate (Morphine Sulfate) 2 mg IVPUSH Q3H PRN PRN Reason: PAIN LEVEL 7 - 10 Multi-Ingredient Ointment (Zinc Oxide 20% Topical Oint) 1 gm TP DAILY [facility] Last Admin: 05/06/18 09:45 Dose: 1 applic Multivitamins (Total B With C -) 1 each PO DAILY [facility] Last Admin: 05/06/18 09:43 Dose: 1 each Ondansetron HCl (Zofran Injection) 4 mg IVPUSH Q6H PRN PRN Reason: NAUSEA AND/OR VOMITING Ondansetron HCl (Zofran Injection) 4 mg IVPUSH Q6H PRN PRN Reason: NAUSEA AND/OR VOMITING Promethazine HCl (Phenergan Injection -) 12.5 mg IVPB Q6H PRN PRN Reason: NAUSEA-FOR RESCUE AFTER 15 MIN Quetiapine Fumarate (Seroquel -) 50 mg PO Q12H PRN PRN Reason: AGITATION Ranitidine HCl (Zantac -) 150 mg PO DAILY [facility] Last Admin: 05/06/18 09:43 Dose: 150 mg Tamsulosin HCl (Flomax -) 0.4 mg PO HS [facility] Last Admin: 05/05/18 21:37 Dose: 0.4 mg - Objective Vital Signs: Vital Signs Temperature 98.4 F 05/06/18 10:00 Pulse Rate 66 05/06/18 10:00 Respiratory Rate 20 05/06/18 10:00 Blood Pressure 120/62 05/06/18 10:00 O2 Sat by Pulse Oximetry (%) 96 05/06/18 09:00 Constitutional: Yes: No Distress, Calm, Thin Neck: Yes: Supple Cardiovascular: Yes: Regular Rate and Rhythm Respiratory: Yes: Regular, Diminished Gastrointestinal: Yes: Normal Bowel Sounds, Soft Extremities: Yes: Amputation (Right BKA) Edema: No Wound/Incision: Yes: Dressing Dry and Intact Labs: CBC, BMP 05/05/18 05:30 05/05/18 05:30 INR, PTT INR 1.28 (0.83-1.09) H 05/03/18 09:30 Problem List - Problems (1) Diabetes Code(s): E11.9 - TYPE 2 DIABETES MELLITUS WITHOUT COMPLICATIONS Qualifiers: Diabetes mellitus type: type 1 Diabetes mellitus complication status: with circulatory complication (2) ESRD (end stage renal disease) on dialysis Code(s): N18.6 - END STAGE RENAL DISEASE; Z99.2 - DEPENDENCE ON RENAL DIALYSIS (3) Eschar of heel Code(s): R23.4 - CHANGES IN SKIN TEXTURE (4) CAD (coronary artery disease) Code(s): I25.10 - ATHSCL HEART DISEASE OF [place] CORONARY ARTERY W/O ANG PCTRS Qualifiers: Coronary Disease-Associated Artery/Lesion type: [place] artery [place] vs. transplanted heart: [place] heart Associated angina: without angina Qualified Code(s): I25.10 - Atherosclerotic heart disease of [place] coronary artery without angina pectoris (5) CHF (congestive heart failure) Code(s): I50.9 - HEART FAILURE, UNSPECIFIED (6) CAD (coronary artery disease) Code(s): I25.10 - ATHSCL HEART DISEASE OF [place] CORONARY ARTERY W/O ANG PCTRS Qualifiers: Coronary Disease-Associated Artery/Lesion type: [place] artery [place] vs. transplanted heart: [place] heart Associated angina: without angina Qualified Code(s): I25.10 - Atherosclerotic heart disease of [place] coronary artery without angina pectoris (7) HTN (hypertension) Code(s): I10 - ESSENTIAL (PRIMARY) HYPERTENSION Qualifiers: Hypertension type: essential hypertension Qualified Code(s): I10 - Essential (primary) hypertension (8) Hx of CABG Code(s): Z95.1 - PRESENCE OF AORTOCORONARY BYPASS GRAFT (9) Hypercholesterolemia Code(s): E78.00 - PURE HYPERCHOLESTEROLEMIA, UNSPECIFIED (10) PAD (peripheral artery disease) Code(s): I73.9 - PERIPHERAL VASCULAR DISEASE, UNSPECIFIED (11) S/P coronary artery stent placement Code(s): Z95.5 - PRESENCE OF CORONARY ANGIOPLASTY IMPLANT AND GRAFT Assessment/Plan 12/19/2017 Normal LV size with mild-mod decrease LV fxn, mild STEPHEN, mild TR, MR, can't exclude MV vegetation 1. PAD s/p LE bypass, heel wound (non healing) s/p angioplasty right posterior tibial artery, s/p angioplasty left anterior tibial artery and left heel wound vac, POD#3 right BKA 2. HTN 3. Hypercholesterolemia 4. DM 5. Diastolic/Systolic LV dysfunction with class 0 NYHA classification LV failure 6. CAD s/p CABG, PCI/stent, demand ischemia 7. ESRD on HD 8. Anemia of CKD PLAN: 1. Continue Carvedilol 12.5 bid, Lipitor 40 qhs, ASA 81 qd, resume Plavix 75 qd now that post-op hemostasis has been achieved 2. Complete empiric antibiotic course, left wound vac care and right BKA post- op care as per vascular surgery 3. HD per renal, transfuse to maintain Hgb>8.0 4. DVT and GI prophylaxis
[2018-05-06 15:51] LABS: EOS % 7.8 % (0-4.5); HEMATOCRIT 21.8 % (35.4-49); HEMOGLOBIN 7.2 GM/dL (11.7-16.9); LYMPH % 13.9 % (8-40); MCH 31.3 pg (25.7-33.7); MCHC 33.2 g/dl (32.0-35.9); MEAN CELL VOLUME 94.3 fl (80-96); MEAN PLT VOLUME 6.8 fl (7.5-11.1); MONO % 5.3 % (3.8-10.2); PLATELET COUNT 252 K/MM3 (134-434); RBC 2.31 M/mm3 (4.00-5.60); RDW 16.4 % (11.9-15.9); WHITE BLOOD COUNT 4.5 K/mm3 (4.0-10.0)
--- NOTE | 2018-05-06 16:54 | PN ---
Progress Note, Physician History of Present Illness: Pt seen and examined at bedside. He is tolerating HD. He is awake and appears comfortable. - Current Medication List Current Medications: Active Medications Acetaminophen (Tylenol -) 650 mg PO Q6H PRN PRN Reason: PAIN LEVEL 1-5 Artificial Tears (Artificial Tears) 1 drop OU Q12H PRN PRN Reason: DRY EYES Aspirin (Asa -) 81 mg PO DAILY [facility] Last Admin: 05/06/18 09:43 Dose: 81 mg Atorvastatin Calcium (Lipitor -) 40 mg PO HS [facility] Last Admin: 05/05/18 21:37 Dose: 40 mg Calcium Acetate (Phoslo -) 667 mg PO TIDCM [facility] Last Admin: 05/06/18 11:08 Dose: 667 mg Carvedilol (Coreg -) 12.5 mg PO BID [facility] Last Admin: 05/06/18 09:43 Dose: 12.5 mg Citalopram Hydrobromide (Celexa -) 20 mg PO DAILY [facility] Last Admin: 05/06/18 09:43 Dose: 20 mg Clopidogrel Bisulfate (Plavix -) 75 mg PO DAILY [facility] Collagenase (Santyl -) 1 applic TP DAILY [facility]; Protocol Last Admin: 05/06/18 09:45 Dose: Not Given Divalproex Sodium (Depakote -) 125 mg PO BID [facility] Last Admin: 05/06/18 09:43 Dose: 125 mg Docusate Sodium (Colace -) 300 mg PO HS [facility] Last Admin: 05/05/18 21:37 Dose: 300 mg Folic Acid (Folic Acid -) 1 mg PO DAILY [facility] Last Admin: 05/06/18 09:43 Dose: 1 mg Gabapentin (Neurontin -) 100 mg PO BID [facility] Last Admin: 05/06/18 09:43 Dose: 100 mg Haloperidol (Haldol -) 2 mg PO TID PRN PRN Reason: AGITATION Heparin Sodium (Porcine) (Heparin -) 5,000 unit SQ BID [facility] Last Admin: 05/06/18 09:43 Dose: 5,000 unit Piperacillin Sod/Tazobactam (Sod 2.25 gm/ Dextrose) 50 mls @ 100 mls/hr IVPB Q8H-IV [facility]; Protocol Last Admin: 05/06/18 09:42 Dose: 100 mls/hr Sodium Chloride (Normal Saline -) 1,000 mls @ 42 mls/hr IV ASDIR [facility] Last Admin: 05/05/18 17:02 Dose: Not Given Sodium Chloride (Normal Saline -) 250 mls @ 3,000 mls/hr IV PRN PRN PRN Reason: Hypotension during Dialysis Stop: 05/06/18 20:41 Insulin Aspart (Novolog Vial Sliding Scale -) 1 vial SQ [facility]; Protocol Last Admin: 05/06/18 11:12 Dose: Not Given Insulin Detemir (Levemir Vial) 10 units SQ [facility] Last Admin: 05/05/18 21:38 Dose: 10 unit Lactobacillus Acidophilus (Bacid -) 1 tab PO DAILY [facility] Last Admin: 05/06/18 09:43 Dose: 1 tab Morphine Sulfate (Morphine Sulfate) 1 mg IVPUSH Q3H PRN PRN Reason: PAIN LEVEL 4 - 6 Last Admin: 05/05/18 01:22 Dose: 1 mg Morphine Sulfate (Morphine Sulfate) 2 mg IVPUSH Q3H PRN PRN Reason: PAIN LEVEL 7 - 10 Multi-Ingredient Ointment (Zinc Oxide 20% Topical Oint) 1 gm TP DAILY [facility] Last Admin: 05/06/18 09:45 Dose: 1 applic Multivitamins (Total B With C -) 1 each PO DAILY [facility] Last Admin: 05/06/18 09:43 Dose: 1 each Ondansetron HCl (Zofran Injection) 4 mg IVPUSH Q6H PRN PRN Reason: NAUSEA AND/OR VOMITING Ondansetron HCl (Zofran Injection) 4 mg IVPUSH Q6H PRN PRN Reason: NAUSEA AND/OR VOMITING Promethazine HCl (Phenergan Injection -) 12.5 mg IVPB Q6H PRN PRN Reason: NAUSEA-FOR RESCUE AFTER 15 MIN Quetiapine Fumarate (Seroquel -) 50 mg PO Q12H PRN PRN Reason: AGITATION Ranitidine HCl (Zantac -) 150 mg PO DAILY [facility] Last Admin: 05/06/18 09:43 Dose: 150 mg Tamsulosin HCl (Flomax -) 0.4 mg PO HS [facility] Last Admin: 05/05/18 21:37 Dose: 0.4 mg - Objective Vital Signs: Vital Signs Temperature 98.3 F 05/06/18 15:23 Pulse Rate 62 05/06/18 15:35 Respiratory Rate 18 05/06/18 15:35 Blood Pressure 128/50 L 05/06/18 15:35 O2 Sat by Pulse Oximetry (%) 96 05/06/18 09:00 Constitutional: Yes: Calm Eyes: Yes: Conjunctiva Clear HENT: Yes: Atraumatic Cardiovascular: Yes: S1, S2 Respiratory: Yes: CTA Bilaterally Gastrointestinal: Yes: WNL Genitourinary: Yes: Incontinence Musculoskeletal: Yes: Other (right bka) Neurological: Yes: Confusion Labs: CBC, BMP 05/06/18 14:50 05/05/18 05:30 INR, PTT INR 1.28 (0.83-1.09) H 05/03/18 09:30 Problem List - Problems (1) Diabetes Code(s): E11.9 - TYPE 2 DIABETES MELLITUS WITHOUT COMPLICATIONS Qualifiers: Diabetes mellitus type: type 1 Diabetes mellitus complication status: with circulatory complication (2) ESRD (end stage renal disease) on dialysis Code(s): N18.6 - END STAGE RENAL DISEASE; Z99.2 - DEPENDENCE ON RENAL DIALYSIS (3) Syncope Code(s): R55 - SYNCOPE AND COLLAPSE (4) Anemia Code(s): D64.9 - ANEMIA, UNSPECIFIED Assessment/Plan Current Medications Generic Name Dose Route Start Last Admin Trade Name Freq PRN Reason Stop Dose Admin Acetaminophen 650 mg 05/03/18 18:00 Tylenol - PO Q6H PRN PAIN LEVEL 1-5 Artificial Tears 1 drop 05/03/18 18:00 Artificial Tears OU Q12H PRN DRY EYES Aspirin 81 mg 05/04/18 10:00 05/06/18 09:43 Asa - PO 81 mg DAILY [facility] Administration Atorvastatin Calcium 40 mg 05/03/18 22:00 05/05/18 21:37 Lipitor - PO 40 mg HS [facility] Administration Calcium Acetate 667 mg 05/04/18 08:00 05/06/18 11:08 Phoslo - PO 667 mg TIDCM [facility] Administration Carvedilol 12.5 mg 05/03/18 22:00 05/06/18 09:43 Coreg - PO 12.5 mg BID [facility] Administration Citalopram Hydrobromide 20 mg 05/04/18 10:00 05/06/18 09:43 Celexa - PO 20 mg DAILY [facility] Administration Clopidogrel Bisulfate 75 mg 05/06/18 14:00 Plavix - PO DAILY [facility] Collagenase 1 applic 05/04/18 10:00 05/06/18 09:45 Santyl - TP Not Given DAILY [facility] Protocol Divalproex Sodium 125 mg 05/03/18 22:00 05/06/18 09:43 Depakote - PO 125 mg BID [facility] Administration Docusate Sodium 300 mg 05/03/18 22:00 05/05/18 21:37 Colace - PO 300 mg HS [facility] Administration Folic Acid 1 mg 05/04/18 10:00 05/06/18 09:43 Folic Acid - PO 1 mg DAILY [facility] Administration Gabapentin 100 mg 05/03/18 22:00 05/06/18 09:43 Neurontin - PO 100 mg BID [facility] Administration Haloperidol 2 mg 05/03/18 18:00 Haldol - PO TID PRN AGITATION Heparin Sodium (Porcine) 5,000 unit 05/03/18 22:00 05/06/18 09:43 Heparin - SQ 5,000 unit BID [facility] Administration Piperacillin Sod/Tazobactam 50 mls @ 100 mls/hr 05/03/18 18:00 05/06/18 09:42 Sod 2.25 gm/ Dextrose IVPB 100 mls/hr Q8H-IV [facility] Administration Protocol Sodium Chloride 1,000 mls @ 42 mls/hr 05/03/18 18:00 05/05/18 17:02 Normal Saline - IV Not Given ASDIR [facility] Sodium Chloride 250 mls @ 3,000 mls/hr 05/05/18 20:40 Normal Saline - IV 05/06/18 20:41 PRN PRN Hypotension during Dialysis Insulin Aspart 1 vial 05/03/18 22:00 05/06/18 11:12 Novolog Vial Sliding Scale - SQ Not Given ACHS [facility] Protocol Insulin Detemir 10 units 05/03/18 22:00 05/05/18 21:38 Levemir Vial SQ 10 unit HS [facility] Administration Lactobacillus Acidophilus 1 tab 05/04/18 10:00 05/06/18 09:43 Bacid - PO 1 tab DAILY [facility] Administration Morphine Sulfate 1 mg 05/03/18 17:29 05/05/18 01:22 Morphine Sulfate IVPUSH 1 mg Q3H PRN Administration PAIN LEVEL 4 - 6 Morphine Sulfate 2 mg 05/03/18 17:29 Morphine Sulfate IVPUSH Q3H PRN PAIN LEVEL 7 - 10 Multi-Ingredient Ointment 1 gm 05/04/18 10:00 05/06/18 09:45 Zinc Oxide 20% Topical Oint TP 1 applic DAILY [facility] Administration Multivitamins 1 each 05/04/18 10:00 05/06/18 09:43 Total B With C - PO 1 each DAILY [facility] Administration Ondansetron HCl 4 mg 05/03/18 18:00 Zofran Injection IVPUSH Q6H PRN NAUSEA AND/OR VOMITING Ondansetron HCl 4 mg 05/03/18 18:00 Zofran Injection IVPUSH Q6H PRN NAUSEA AND/OR VOMITING Promethazine HCl 12.5 mg 05/03/18 18:00 Phenergan Injection - IVPB Q6H PRN NAUSEA-FOR RESCUE AFTER 15 MIN Quetiapine Fumarate 50 mg 05/03/18 18:00 Seroquel - PO Q12H PRN AGITATION Ranitidine HCl 150 mg 05/04/18 10:00 05/06/18 09:43 Zantac - PO 150 mg DAILY [facility] Administration Tamsulosin HCl 0.4 mg 05/03/18 22:00 05/05/18 21:37 Flomax - PO 0.4 mg HS [facility] Administration Impression 1. ESRD 2. anemia 3. HTN 4. Chol 5. DM 6. BPH 7. CAD 8. hypoglycemia 9. CHF 10. syncope 11. depression 12. PVD Plan - HD today - cont wound care - monitor hg - epogen for anemia - encourage PO intake Dr Donovan
[2018-05-06] MEDS ORDERED: EPOETIN ALFA 10,000 UNIT/1 ML VIAL IVPUSH ONE (16:55)
[2018-05-06] MEDS ORDERED: EPOETIN ALFA 10,000 UNIT, EPOETIN ALFA 2,000 UNIT IVPUSH ONE (17:00)
[2018-05-06] MEDS: SODIUM CHLORIDE 1,000 ML IV SCH (18:43)
[2018-05-06] MEDS: CLOPIDOGREL BISULFATE 75 MG TABLET (FP) PO SCH (18:43)
--- NOTE | 2018-05-06 21:03 | OP ---
DATE OF OPERATION: 05/03/2018 SURGEON: Augustin Schfoield MD ANY COMMODITY BUYER: Marty Vasquez PA-C PROCEDURE: Right below-knee amputation. PREOPERATIVE DIAGNOSIS: Gangrene, right foot. POSTOPERATIVE DIAGNOSIS: Gangrene, right foot. ANESTHESIA: General. ANESTHESIOLOGIST: Rolando Benítez MD OPERATIVE FINDINGS: Skin, muscle, and bone were viable at the level of amputation below the knee. OPERATIVE PROCEDURE: Following routine patient identification with site and side verification, general anesthesia was induced. The right lower extremity was prepped with ChloraPrep. Timeout was performed. An incision was made in the right lower leg approximately 4 fingerbreadths below the tibial tuberosity. A short anterior/long posterior flap was fashioned and carried through subcutaneous tissue, muscle fascia, and muscle with cautery. The neurovascular bundle of the 3 tibial arteries was individually ligated with ties of silk and divided. The periosteum at the tibia was elevated approximately 2 cm from the skin incision, and the bone was transected with an oscillating saw. The fibula was then transected with a bone cutter approximately 2 cm more proximally. The remaining soft tissue attachments were divided. The sural nerve was ligated with Vicryl high in the stump. Specimen was removed. The stump was irrigated. The anterior edge of the tibia was then beveled with the saw and smoothed with a file. The flaps were then closed with interrupted sutures of 2-0 Vicryl on the muscle fascia and skin venkata. A sterile dressing consisting of Xeroform, gauze fluffs, ABD pad, Kerlix, and Coban was applied, and the leg was placed into a knee immobilizer. The patient was then transported to the recovery room in stable condition. Connor [id number]
[2018-05-06] MEDS ORDERED: QUEtiapine FUMARATE 25 MG TABLET (FP) ONE (22:38)
[2018-05-06] MEDS: TAMSULOSIN HCL 0.4 MG CAP.ER.24H (FP) PO SCH (22:42)
[2018-05-06] MEDS: ATORVASTATIN CA 40 MG TABLET (FP) PO SCH (22:42)
[2018-05-06] MEDS: DOCUSATE SODIUM 100 MG CAPSULE (FP) PO SCH (22:42)
[2018-05-06] MEDS: INSULIN (LEVEMIR) 100 UNITS/ML UNITS SQ SCH (22:43)
[2018-05-06] MEDS: QUEtiapine FUMARATE 50 MG TABLET PO PRN (22:45)
[2018-05-07] MEDS ORDERED: PT OWN MED DRAWER 7, Y5N ONE ×3 (01:48→12:40)
[2018-05-07] MEDS ORDERED: DEXTROSE 5%-WATER - 50 ML IVPB ONE ×3 (01:48→18:22)
[2018-05-07] MEDS ORDERED: PIPERACILLIN/TAZOBACTAM 2.25 GM VIAL IVPB ONE ×3 (01:48→18:22)
[2018-05-07] MEDS: PIPERACILLIN/TAZOB 2.25 GM 2.25 GM in DEXTROSE 5%-WATER - 50 ML IVPB SCH ×3 (01:56→18:26)
[2018-05-07] MEDS: INSULIN SLIDING SCALE (NOVOLOG) 1 VIAL SQ SCH ×4 (06:27→21:31)
[2018-05-07] MEDS ORDERED: INSULIN (NOVOLOG) ASPART 100 UNITS/ML 10ML VIAL ONE (06:47)
[2018-05-07] MEDS: CALCIUM ACETATE 667 MG CAPSULE (FP) PO SCH ×3 (09:30→17:35)
--- NOTE | 2018-05-07 11:33 | PN ---
Progress Note (short form) - Note Progress Note: Patient seen and examined s/p rt BKA 05/03 c/o chest pain this AM - points to left side of chest, SOB noted that pt eats very fast and coughs while eating Vital Signs - 24 hr 05/06/18 05/06/18 05/06/18 14:20 14:35 15:05 Temperature Pulse Rate 61 60 60 Respiratory 18 18 18 Rate Blood Pressure 118/47 L 111/46 L 126/47 L O2 Sat by Pulse Oximetry (%) 05/06/18 05/06/18 05/06/18 15:23 15:35 16:05 Temperature 98.3 F Pulse Rate 61 62 61 Respiratory 18 18 18 Rate Blood Pressure 119/48 L 128/50 L 139/56 L O2 Sat by Pulse Oximetry (%) 05/06/18 05/06/18 05/06/18 16:35 17:05 17:35 Temperature Pulse Rate 63 64 68 Respiratory 18 18 18 Rate Blood Pressure 139/60 147/55 L 155/70 O2 Sat by Pulse Oximetry (%) 05/06/18 05/06/18 05/06/18 18:05 18:20 19:15 Temperature 98.8 F Pulse Rate 61 71 73 Respiratory 18 18 20 Rate Blood Pressure 149/91 131/52 L 128/52 L O2 Sat by Pulse Oximetry (%) 05/06/18 05/06/18 05/07/18 21:00 22:00 05:52 Temperature 98.6 F 97.7 F Pulse Rate 76 68 Respiratory 20 20 20 Rate Blood Pressure 125/61 115/48 L O2 Sat by Pulse 97 Oximetry (%) 05/07/18 10:00 Temperature 98 F Pulse Rate 71 Respiratory 18 Rate Blood Pressure 142/52 L O2 Sat by Pulse Oximetry (%) Current Medications Generic Name Dose Route Start Last Admin Trade Name Freq PRN Reason Stop Dose Admin Acetaminophen 650 mg 05/03/18 18:00 05/06/18 19:51 Tylenol - PO 650 mg Q6H PRN Administration PAIN LEVEL 1-5 Artificial Tears 1 drop 05/03/18 18:00 Artificial Tears OU Q12H PRN DRY EYES Aspirin 81 mg 05/04/18 10:00 05/06/18 09:43 Asa - PO 81 mg DAILY [facility] Administration Atorvastatin Calcium 40 mg 05/03/18 22:00 05/06/18 22:42 Lipitor - PO 40 mg HS [facility] Administration Calcium Acetate 667 mg 05/04/18 08:00 05/07/18 09:30 Phoslo - PO 667 mg TIDCM [facility] Administration Carvedilol 12.5 mg 05/03/18 22:00 05/06/18 22:42 Coreg - PO 12.5 mg BID [facility] Administration Citalopram Hydrobromide 20 mg 05/04/18 10:00 05/06/18 09:43 Celexa - PO 20 mg DAILY [facility] Administration Clopidogrel Bisulfate 75 mg 05/06/18 14:00 05/06/18 18:43 Plavix - PO 75 mg DAILY [facility] Administration Collagenase 1 applic 05/04/18 10:00 05/06/18 09:45 Santyl - TP Not Given DAILY [facility] Protocol Divalproex Sodium 125 mg 05/03/18 22:00 05/06/18 23:14 Depakote - PO 125 mg BID [facility] Administration Docusate Sodium 300 mg 05/03/18 22:00 05/06/18 22:42 Colace - PO 300 mg HS [facility] Administration Folic Acid 1 mg 05/04/18 10:00 05/06/18 09:43 Folic Acid - PO 1 mg DAILY [facility] Administration Gabapentin 100 mg 05/03/18 22:00 05/06/18 22:42 Neurontin - PO 100 mg BID [facility] Administration Haloperidol 2 mg 05/03/18 18:00 Haldol - PO TID PRN AGITATION Heparin Sodium (Porcine) 5,000 unit 05/03/18 22:00 05/06/18 22:42 Heparin - SQ 5,000 unit BID [facility] Administration Piperacillin Sod/Tazobactam 50 mls @ 100 mls/hr 05/03/18 18:00 05/07/18 01:56 Sod 2.25 gm/ Dextrose IVPB 100 mls/hr Q8H-IV [facility] Administration Protocol Sodium Chloride 1,000 mls @ 42 mls/hr 05/03/18 18:00 05/06/18 18:43 Normal Saline - IV Not Given ASDIR [facility] Sodium Chloride 250 mls @ 3,000 mls/hr 05/05/18 20:40 Normal Saline - IV 05/06/18 20:41 PRN PRN Hypotension during Dialysis Insulin Aspart 1 vial 05/03/18 22:00 05/07/18 06:27 Novolog Vial Sliding Scale - SQ Not Given ACHS [facility] Protocol Insulin Detemir 10 units 05/03/18 22:00 05/06/18 22:43 Levemir Vial SQ 10 unit HS [facility] Administration Lactobacillus Acidophilus 1 tab 05/04/18 10:00 05/06/18 09:43 Bacid - PO 1 tab DAILY [facility] Administration Multi-Ingredient Ointment 1 gm 05/04/18 10:00 05/06/18 09:45 Zinc Oxide 20% Topical Oint TP 1 applic DAILY [facility] Administration Multivitamins 1 each 05/04/18 10:00 05/06/18 09:43 Total B With C - PO 1 each DAILY [facility] Administration Ondansetron HCl 4 mg 05/03/18 18:00 Zofran Injection IVPUSH Q6H PRN NAUSEA AND/OR VOMITING Ondansetron HCl 4 mg 05/03/18 18:00 Zofran Injection IVPUSH Q6H PRN NAUSEA AND/OR VOMITING Promethazine HCl 12.5 mg 05/03/18 18:00 Phenergan Injection - IVPB Q6H PRN NAUSEA-FOR RESCUE AFTER 15 MIN Quetiapine Fumarate 50 mg 05/03/18 18:00 05/06/18 22:45 Seroquel - PO 50 mg Q12H PRN Administration AGITATION Ranitidine HCl 150 mg 05/04/18 10:00 05/06/18 09:43 Zantac - PO 150 mg DAILY [facility] Administration Tamsulosin HCl 0.4 mg 05/03/18 22:00 05/06/18 22:42 Flomax - PO 0.4 mg HS [facility] Administration Laboratory Results - last 24 hr 05/06/18 05/06/18 05/06/18 14:50 18:44 22:27 WBC 4.5 RBC 2.31 L Hgb 7.2 L Hct 21.8 L MCV 94.3 MCH 31.3 MCHC 33.2 RDW 16.4 H Plt Count 252 MPV 6.8 L Absolute Neuts (auto) 3.2 Neutrophils % 72.0 Lymphocytes % 13.9 D Monocytes % 5.3 Eosinophils % 7.8 H D Basophils % 1.0 Nucleated RBC % 0 POC Glucometer 192 255 05/07/18 06:23 WBC RBC Hgb Hct MCV MCH MCHC RDW Plt Count MPV Absolute Neuts (auto) Neutrophils % Lymphocytes % Monocytes % Eosinophils % Basophils % Nucleated RBC % POC Glucometer 103 exam- Constitutional: Yes: No Distress, Comfortable. Neck: Yes: Supple. no jvd Cardiovascular: Yes: Regular Rate and Rhythm no chest wall tenderness Respiratory: Yes: Diminished, no ronchi Gastrointestinal: Yes: Soft/ non tender Edema: No Wound/Incision:rt leg-- immobilizer+ Neurological: Yes: Alert Psychiatric: Yes: Alert,calm Assessment/Plan clinically stable Continue present care abx-- Zosyn check CXR EKG done today-- no changes noted, no ST changes check CBC today-- he was anemic-- no PRBC given check cardiac enzymes downgrade diet to soft Problem List - Problems (1) Diabetes Code(s): E11.9 - TYPE 2 DIABETES MELLITUS WITHOUT COMPLICATIONS Qualifiers: Diabetes mellitus type: type 1 Diabetes mellitus complication status: with circulatory complication (2) ESRD (end stage renal disease) on dialysis Code(s): N18.6 - END STAGE RENAL DISEASE; Z99.2 - DEPENDENCE ON RENAL DIALYSIS (3) Infected pressure ulcer Code(s): L89.90 - PRESSURE ULCER OF UNSPECIFIED SITE, UNSPECIFIED STAGE; L08.9 - LOCAL INFECTION OF THE SKIN AND SUBCUTANEOUS TISSUE, UNSP (4) Syncope Code(s): R55 - SYNCOPE AND COLLAPSE (5) Acute metabolic encephalopathy due to hypoglycemia Code(s): G93.41 - METABOLIC ENCEPHALOPATHY; E16.2 - HYPOGLYCEMIA, UNSPECIFIED (6) Anemia Code(s): D64.9 - ANEMIA, UNSPECIFIED (7) CAD (coronary artery disease) Code(s): I25.10 - ATHSCL HEART DISEASE OF [place] CORONARY ARTERY W/O ANG PCTRS (8) ESRD (end stage renal disease) on dialysis Code(s): N18.6 - END STAGE RENAL DISEASE; Z99.2 - DEPENDENCE ON RENAL DIALYSIS
--- NOTE | 2018-05-07 12:03 | PN ---
Progress Note, Physician Chief Complaint: Events noted History of Present Illness: Patient was seen and examined. Chart was reviewed Denies chest pain, SOB or palpitations Right BKA - Current Medication List Current Medications: Active Medications Acetaminophen (Tylenol -) 650 mg PO Q6H PRN PRN Reason: PAIN LEVEL 1-5 Last Admin: 05/06/18 19:51 Dose: 650 mg Artificial Tears (Artificial Tears) 1 drop OU Q12H PRN PRN Reason: DRY EYES Aspirin (Asa -) 81 mg PO DAILY [facility] Last Admin: 05/06/18 09:43 Dose: 81 mg Atorvastatin Calcium (Lipitor -) 40 mg PO HS [facility] Last Admin: 05/06/18 22:42 Dose: 40 mg Calcium Acetate (Phoslo -) 667 mg PO TIDCM [facility] Last Admin: 05/07/18 09:30 Dose: 667 mg Carvedilol (Coreg -) 12.5 mg PO BID [facility] Last Admin: 05/06/18 22:42 Dose: 12.5 mg Citalopram Hydrobromide (Celexa -) 20 mg PO DAILY [facility] Last Admin: 05/06/18 09:43 Dose: 20 mg Clopidogrel Bisulfate (Plavix -) 75 mg PO DAILY [facility] Last Admin: 05/06/18 18:43 Dose: 75 mg Collagenase (Santyl -) 1 applic TP DAILY [facility]; Protocol Last Admin: 05/06/18 09:45 Dose: Not Given Divalproex Sodium (Depakote -) 125 mg PO BID [facility] Last Admin: 05/06/18 23:14 Dose: 125 mg Docusate Sodium (Colace -) 300 mg PO HS [facility] Last Admin: 05/06/18 22:42 Dose: 300 mg Folic Acid (Folic Acid -) 1 mg PO DAILY [facility] Last Admin: 05/06/18 09:43 Dose: 1 mg Gabapentin (Neurontin -) 100 mg PO BID [facility] Last Admin: 05/06/18 22:42 Dose: 100 mg Haloperidol (Haldol -) 2 mg PO TID PRN PRN Reason: AGITATION Heparin Sodium (Porcine) (Heparin -) 5,000 unit SQ BID [facility] Last Admin: 05/06/18 22:42 Dose: 5,000 unit Piperacillin Sod/Tazobactam (Sod 2.25 gm/ Dextrose) 50 mls @ 100 mls/hr IVPB Q8H-IV [facility]; Protocol Last Admin: 05/07/18 01:56 Dose: 100 mls/hr Sodium Chloride (Normal Saline -) 1,000 mls @ 42 mls/hr IV ASDIR [facility] Last Admin: 05/06/18 18:43 Dose: Not Given Sodium Chloride (Normal Saline -) 250 mls @ 3,000 mls/hr IV PRN PRN PRN Reason: Hypotension during Dialysis Stop: 05/06/18 20:41 Insulin Aspart (Novolog Vial Sliding Scale -) [address] [facility]; Protocol Last Admin: 05/07/18 06:27 Dose: Not Given Insulin Detemir (Levemir Vial) 10 units SQ HS [facility] Last Admin: 05/06/18 22:43 Dose: 10 unit Lactobacillus Acidophilus (Bacid -) 1 tab PO DAILY [facility] Last Admin: 05/06/18 09:43 Dose: 1 tab Multi-Ingredient Ointment (Zinc Oxide 20% Topical Oint) 1 gm TP DAILY [facility] Last Admin: 05/06/18 09:45 Dose: 1 applic Multivitamins (Total B With C -) 1 each PO DAILY [facility] Last Admin: 05/06/18 09:43 Dose: 1 each Ondansetron HCl (Zofran Injection) 4 mg IVPUSH Q6H PRN PRN Reason: NAUSEA AND/OR VOMITING Ondansetron HCl (Zofran Injection) 4 mg IVPUSH Q6H PRN PRN Reason: NAUSEA AND/OR VOMITING Promethazine HCl (Phenergan Injection -) 12.5 mg IVPB Q6H PRN PRN Reason: NAUSEA-FOR RESCUE AFTER 15 MIN Quetiapine Fumarate (Seroquel -) 50 mg PO Q12H PRN PRN Reason: AGITATION Last Admin: 05/06/18 22:45 Dose: 50 mg Ranitidine HCl (Zantac -) 150 mg PO DAILY [facility] Last Admin: 05/06/18 09:43 Dose: 150 mg Tamsulosin HCl (Flomax -) 0.4 mg PO [facility] Last Admin: 05/06/18 22:42 Dose: 0.4 mg - Objective Vital Signs: Vital Signs Temperature 98 F 05/07/18 10:00 Pulse Rate 71 05/07/18 10:00 Respiratory Rate 18 05/07/18 10:00 Blood Pressure 142/52 05/07/18 10:00 O2 Sat by Pulse Oximetry (%) 97 05/06/18 21:00 HENT: Yes: Atraumatic Neck: Yes: Supple Cardiovascular: Yes: Regular Rate and Rhythm, S1, S2 Respiratory: Yes: Diminished Gastrointestinal: Yes: Normal Bowel Sounds, Soft. No: Tenderness Extremities: Yes: Amputation Problem List - Problems (1) Diabetes Code(s): E11.9 - TYPE 2 DIABETES MELLITUS WITHOUT COMPLICATIONS Qualifiers: Diabetes mellitus type: type 1 Diabetes mellitus complication status: with circulatory complication (2) ESRD (end stage renal disease) on dialysis Code(s): N18.6 - END STAGE RENAL DISEASE; Z99.2 - DEPENDENCE ON RENAL DIALYSIS (3) Eschar of heel Code(s): R23.4 - CHANGES IN SKIN TEXTURE (4) Infected pressure ulcer Code(s): L89.90 - PRESSURE ULCER OF UNSPECIFIED SITE, UNSPECIFIED STAGE; L08.9 - LOCAL INFECTION OF THE SKIN AND SUBCUTANEOUS TISSUE, UNSP (5) Altered mental status, unspecified Code(s): R41.82 - ALTERED MENTAL STATUS, UNSPECIFIED Qualifiers: Altered mental status type: transient alteration of awareness Qualified Code(s): R40.4 - Transient alteration of awareness (6) Anemia Code(s): D64.9 - ANEMIA, UNSPECIFIED (7) CAD (coronary artery disease) Code(s): I25.10 - ATHSCL HEART DISEASE OF [place] CORONARY ARTERY W/O ANG PCTRS Qualifiers: Coronary Disease-Associated Artery/Lesion type: [place] artery [place] vs. transplanted heart: [place] heart Associated angina: without angina Qualified Code(s): I25.10 - Atherosclerotic heart disease of [place] coronary artery without angina pectoris (8) CKD (chronic kidney disease) Code(s): N18.9 - CHRONIC KIDNEY DISEASE, UNSPECIFIED Qualifiers: Chronic kidney disease stage: unspecified stage Qualified Code(s): N18.9 - Chronic kidney disease, unspecified (9) Diastolic dysfunction Code(s): I51.9 - HEART DISEASE, UNSPECIFIED (10) HTN (hypertension) Code(s): I10 - ESSENTIAL (PRIMARY) HYPERTENSION Qualifiers: Hypertension type: essential hypertension Qualified Code(s): I10 - Essential (primary) hypertension (11) Hx of CABG Code(s): Z95.1 - PRESENCE OF AORTOCORONARY BYPASS GRAFT (12) Hypercholesterolemia Code(s): E78.00 - PURE HYPERCHOLESTEROLEMIA, UNSPECIFIED (13) PAD (peripheral artery disease) Code(s): I73.9 - PERIPHERAL VASCULAR DISEASE, UNSPECIFIED (14) Acute on chronic diastolic heart failure Code(s): I50.33 - ACUTE ON CHRONIC DIASTOLIC (CONGESTIVE) HEART FAILURE Assessment/Plan 1. PAD s/p LE bypass, heel wound (non healing) s/p angioplasty right posterior tibial artery, s/p angioplasty left anterior tibial artery, s/p right BKA 2. HTN 3. Hypercholesterolemia 4. DM 5. Diastolic/Systolic LV dysfunction with class 0 NYHA classification LV failure 6. CAD s/p CABG, PCI/stent, demand ischemia 7. ESRD on HD 8. Anemia of CKD PLAN: 1. Post op management and wound care 2. Continue Carvedilol, Lipitor, ASA and Plavix 3. Empiric antibiotic course 4. HD per renal 5. DVT and GI prophylaxis Magno Hernandez MD
[2018-05-07] MEDS: CITALOPRAM HYDROBROMIDE 20 MG TABLET (FP) PO SCH (12:45)
[2018-05-07] MEDS: VITAMIN B COMPLEX W/C COMBO TABLET (FP) PO SCH (12:45)
[2018-05-07] MEDS: HEPARIN NA (PORCINE) 5,000 UNITS/ML 1ML VIAL SQ SCH ×2 (12:45→21:26)
[2018-05-07] MEDS: GABAPENTIN 100 MG CAPSULE (FP) PO SCH ×2 (12:45→21:26)
[2018-05-07] MEDS: ASPIRIN 81 MG CHEWABLE TABLETS PO SCH (12:45)
[2018-05-07] MEDS: DIVALPROEX SODIUM 125 MG TABLET E.C. PO SCH ×2 (12:46→22:28)
[2018-05-07] MEDS: CARVEDILOL 12.5 MG TABLET (FP) PO SCH ×2 (12:47→21:26)
[2018-05-07] MEDS: FOLIC ACID 1 MG TABLET (FP) PO SCH (12:47)
[2018-05-07] MEDS: LACTOBACILLUS ACIDOPHILUS 1 TABLET PO SCH (12:47)
[2018-05-07] MEDS: CLOPIDOGREL BISULFATE 75 MG TABLET (FP) PO SCH (12:52)
[2018-05-07] MEDS: ZINC OXIDE 20% TOPICAL OINTMENT 454 GM JAR TP SCH (12:54)
[2018-05-07] MEDS: RANITIDINE HCL 150 MG TABLET (FP) PO SCH (12:54)
[2018-05-07] MEDS: COLLAGENASE CLOSTRIDIUM HIST. 30 GRAMS TUBE TP SCH (12:54)
--- NOTE | 2018-05-07 13:04 | EKG ---
Test Reason : Blood Pressure : / mmHG Vent. Rate : 071 BPM Atrial Rate : 071 BPM P-R Int : 176 ms QRS Dur : 096 ms QT Int : 416 ms P-R-T Axes : 054 -18 177 degrees QTc Int : 452 ms NORMAL SINUS RHYTHM LEFT VENTRICULAR HYPERTROPHY WITH REPOLARIZATION ABNORMALITY ABNORMAL ECG Confirmed by Luan Carl MD ([id number]) on 05/07/2018 1:04:24 PM Referred By: ELISSA TOUSSAINT DR Confirmed By:Luan Carl MD
--- NOTE | 2018-05-07 17:50 | PN ---
Progress Note, Physician History of Present Illness: Pt seen and examined at bedside. He is awake and appears comfortable. He is confused. - Current Medication List Current Medications: Active Medications Acetaminophen (Tylenol -) 650 mg PO Q6H PRN PRN Reason: PAIN LEVEL 1-5 Last Admin: 05/06/18 19:51 Dose: 650 mg Artificial Tears (Artificial Tears) 1 drop OU Q12H PRN PRN Reason: DRY EYES Aspirin (Asa -) 81 mg PO DAILY [facility] Last Admin: 05/07/18 12:45 Dose: 81 mg Atorvastatin Calcium (Lipitor -) 40 mg PO HS [facility] Last Admin: 05/06/18 22:42 Dose: 40 mg Calcium Acetate (Phoslo -) 667 mg PO TIDCM [facility] Last Admin: 05/07/18 17:35 Dose: 667 mg Carvedilol (Coreg -) 12.5 mg PO BID [facility] Last Admin: 05/07/18 12:47 Dose: 12.5 mg Citalopram Hydrobromide (Celexa -) 20 mg PO DAILY [facility] Last Admin: 05/07/18 12:45 Dose: 20 mg Clopidogrel Bisulfate (Plavix -) 75 mg PO DAILY [facility] Last Admin: 05/07/18 12:52 Dose: 75 mg Collagenase (Santyl -) 1 applic TP DAILY [facility]; Protocol Last Admin: 05/07/18 12:54 Dose: Not Given Divalproex Sodium (Depakote -) 125 mg PO BID [facility] Last Admin: 05/07/18 12:46 Dose: 125 mg Docusate Sodium (Colace -) 300 mg PO HS [facility] Last Admin: 05/06/18 22:42 Dose: 300 mg Folic Acid (Folic Acid -) 1 mg PO DAILY [facility] Last Admin: 05/07/18 12:47 Dose: 1 mg Gabapentin (Neurontin -) 100 mg PO BID [facility] Last Admin: 05/07/18 12:45 Dose: 100 mg Haloperidol (Haldol -) 2 mg PO TID PRN PRN Reason: AGITATION Heparin Sodium (Porcine) (Heparin -) 5,000 unit SQ BID [facility] Last Admin: 05/07/18 12:45 Dose: 5,000 unit Piperacillin Sod/Tazobactam (Sod 2.25 gm/ Dextrose) 50 mls @ 100 mls/hr IVPB Q8H-IV [facility]; Protocol Last Admin: 05/07/18 12:44 Dose: 100 mls/hr Sodium Chloride (Normal Saline -) 1,000 mls @ 42 mls/hr IV ASDIR [facility] Last Admin: 05/06/18 18:43 Dose: Not Given Sodium Chloride (Normal Saline -) 250 mls @ 3,000 mls/hr IV PRN PRN PRN Reason: Hypotension during Dialysis Stop: 05/06/18 20:41 Insulin Aspart (Novolog Vial Sliding Scale -) [address] [facility]; Protocol Last Admin: 05/07/18 17:38 Dose: 6 units Insulin Detemir (Levemir Vial) 10 units SQ HS [facility] Last Admin: 05/06/18 22:43 Dose: 10 unit Lactobacillus Acidophilus (Bacid -) 1 tab PO DAILY [facility] Last Admin: 05/07/18 12:47 Dose: 1 tab Multi-Ingredient Ointment (Zinc Oxide 20% Topical Oint) 1 gm TP DAILY [facility] Last Admin: 05/07/18 12:54 Dose: 1 applic Multivitamins (Total B With C -) 1 each PO DAILY [facility] Last Admin: 05/07/18 12:45 Dose: 1 each Ondansetron HCl (Zofran Injection) 4 mg IVPUSH Q6H PRN PRN Reason: NAUSEA AND/OR VOMITING Ondansetron HCl (Zofran Injection) 4 mg IVPUSH Q6H PRN PRN Reason: NAUSEA AND/OR VOMITING Promethazine HCl (Phenergan Injection -) 12.5 mg IVPB Q6H PRN PRN Reason: NAUSEA-FOR RESCUE AFTER 15 MIN Quetiapine Fumarate (Seroquel -) 50 mg PO Q12H PRN PRN Reason: AGITATION Last Admin: 05/06/18 22:45 Dose: 50 mg Ranitidine HCl (Zantac -) 150 mg PO DAILY [facility] Last Admin: 05/07/18 12:54 Dose: 150 mg Tamsulosin HCl (Flomax -) 0.4 mg PO [facility] Last Admin: 05/06/18 22:42 Dose: 0.4 mg - Objective Vital Signs: Vital Signs Temperature 97.6 F 05/07/18 16:53 Pulse Rate 67 05/07/18 16:53 Respiratory Rate 18 05/07/18 16:53 Blood Pressure 138/57 L 05/07/18 16:53 O2 Sat by Pulse Oximetry (%) 98 05/07/18 09:00 Constitutional: Yes: Calm Eyes: Yes: Conjunctiva Clear HENT: Yes: Atraumatic Cardiovascular: Yes: S1, S2 Respiratory: Yes: CTA Bilaterally Gastrointestinal: Yes: Soft Genitourinary: Yes: WNL Musculoskeletal: Yes: Other (s/p bka) Edema: No Neurological: Yes: Confusion Labs: CBC, BMP 05/06/18 14:50 05/05/18 05:30 INR, PTT INR 1.28 (0.83-1.09) H 05/03/18 09:30 Problem List - Problems (1) Diabetes Code(s): E11.9 - TYPE 2 DIABETES MELLITUS WITHOUT COMPLICATIONS Qualifiers: Diabetes mellitus type: type 1 Diabetes mellitus complication status: with circulatory complication (2) ESRD (end stage renal disease) on dialysis Code(s): N18.6 - END STAGE RENAL DISEASE; Z99.2 - DEPENDENCE ON RENAL DIALYSIS (3) Syncope Code(s): R55 - SYNCOPE AND COLLAPSE (4) Anemia Code(s): D64.9 - ANEMIA, UNSPECIFIED Assessment/Plan Current Medications Generic Name Dose Route Start Last Admin Trade Name Freq PRN Reason Stop Dose Admin Acetaminophen 650 mg 05/03/18 18:00 05/06/18 19:51 Tylenol - PO 650 mg Q6H PRN Administration PAIN LEVEL 1-5 Artificial Tears 1 drop 05/03/18 18:00 Artificial Tears OU Q12H PRN DRY EYES Aspirin 81 mg 05/04/18 10:00 05/07/18 12:45 Asa - PO 81 mg DAILY [facility] Administration Atorvastatin Calcium 40 mg 05/03/18 22:00 05/06/18 22:42 Lipitor - PO 40 mg HS [facility] Administration Calcium Acetate 667 mg 05/04/18 08:00 05/07/18 17:35 Phoslo - PO 667 mg TIDCM [facility] Administration Carvedilol 12.5 mg 05/03/18 22:00 05/07/18 12:47 Coreg - PO 12.5 mg BID [facility] Administration Citalopram Hydrobromide 20 mg 05/04/18 10:00 05/07/18 12:45 Celexa - PO 20 mg DAILY [facility] Administration Clopidogrel Bisulfate 75 mg 05/06/18 14:00 05/07/18 12:52 Plavix - PO 75 mg DAILY [facility] Administration Collagenase 1 applic 05/04/18 10:00 05/07/18 12:54 Santyl - TP Not Given DAILY [facility] Protocol Divalproex Sodium 125 mg 05/03/18 22:00 05/07/18 12:46 Depakote - PO 125 mg BID [facility] Administration Docusate Sodium 300 mg 05/03/18 22:00 05/06/18 22:42 Colace - PO 300 mg HS [facility] Administration Folic Acid 1 mg 05/04/18 10:00 05/07/18 12:47 Folic Acid - PO 1 mg DAILY [facility] Administration Gabapentin 100 mg 05/03/18 22:00 05/07/18 12:45 Neurontin - PO 100 mg BID [facility] Administration Haloperidol 2 mg 05/03/18 18:00 Haldol - PO TID PRN AGITATION Heparin Sodium (Porcine) 5,000 unit 05/03/18 22:00 05/07/18 12:45 Heparin - SQ 5,000 unit BID [facility] Administration Piperacillin Sod/Tazobactam 50 mls @ 100 mls/hr 05/03/18 18:00 05/07/18 12:44 Sod 2.25 gm/ Dextrose IVPB 100 mls/hr Q8H-IV [facility] Administration Protocol Sodium Chloride 1,000 mls @ 42 mls/hr 05/03/18 18:00 05/06/18 18:43 Normal Saline - IV Not Given ASDIR [facility] Sodium Chloride 250 mls @ 3,000 mls/hr 05/05/18 20:40 Normal Saline - IV 05/06/18 20:41 PRN PRN Hypotension during Dialysis Insulin Aspart 1 vial 05/03/18 22:00 05/07/18 17:38 Novolog Vial Sliding Scale - SQ 6 units ACHS [facility] Administration Protocol Insulin Detemir 10 units 05/03/18 22:00 05/06/18 22:43 Levemir Vial SQ 10 unit HS [facility] Administration Lactobacillus Acidophilus 1 tab 05/04/18 10:00 05/07/18 12:47 Bacid - PO 1 tab DAILY [facility] Administration Multi-Ingredient Ointment 1 gm 05/04/18 10:00 05/07/18 12:54 Zinc Oxide 20% Topical Oint TP 1 applic DAILY [facility] Administration Multivitamins 1 each 05/04/18 10:00 05/07/18 12:45 Total B With C - PO 1 each DAILY [facility] Administration Ondansetron HCl 4 mg 05/03/18 18:00 Zofran Injection IVPUSH Q6H PRN NAUSEA AND/OR VOMITING Ondansetron HCl 4 mg 05/03/18 18:00 Zofran Injection IVPUSH Q6H PRN NAUSEA AND/OR VOMITING Promethazine HCl 12.5 mg 05/03/18 18:00 Phenergan Injection - IVPB Q6H PRN NAUSEA-FOR RESCUE AFTER 15 MIN Quetiapine Fumarate 50 mg 05/03/18 18:00 05/06/18 22:45 Seroquel - PO 50 mg Q12H PRN Administration AGITATION Ranitidine HCl 150 mg 05/04/18 10:00 05/07/18 12:54 Zantac - PO 150 mg DAILY [facility] Administration Tamsulosin HCl 0.4 mg 05/03/18 22:00 05/06/18 22:42 Flomax - PO 0.4 mg HS [facility] Administration Impression 1. ESRD 2. anemia 3. HTN 4. Chol 5. DM 6. BPH 7. CAD 8. hypoglycemia 9. CHF 10. syncope 11. depression 12. PVD Plan - d/c fluids - HD tomorrow - pt being transferred to [facility] give lasix with prbc - monitor cardiac enzymes - HD on tele tomorrow - cardio eval - will follow Dr Donovan
[2018-05-07] MEDS ORDERED: FUROSEMIDE 40 MG/4 ML INJECTABLE VIAL IVPUSH ONE (17:51)
[2018-05-07 18:20] LABS: BASO % 0.7 % (0-2.0); EOS % 2.5 % (0-4.5); HEMATOCRIT 25.1 % (35.4-49); HEMOGLOBIN 8.1 GM/dL (11.7-16.9); LYMPH % 9.9 % (8-40); MCH 30.6 pg (25.7-33.7); MCHC 32.1 g/dl (32.0-35.9); MEAN CELL VOLUME 95.4 fl (80-96); MEAN PLT VOLUME 6.8 fl (7.5-11.1); MONO % 9.9 % (3.8-10.2); PLATELET COUNT 262 K/MM3 (134-434); RBC 2.64 M/mm3 (4.00-5.60); RDW 17.3 % (11.9-15.9); WHITE BLOOD COUNT 7.6 K/mm3 (4.0-10.0)
[2018-05-07] MEDS: QUEtiapine FUMARATE 50 MG TABLET PO PRN (20:48)
[2018-05-07] MEDS: TAMSULOSIN HCL 0.4 MG CAP.ER.24H (FP) PO SCH (21:26)
[2018-05-07] MEDS: ATORVASTATIN CA 40 MG TABLET (FP) PO SCH (21:26)
[2018-05-07] MEDS: DOCUSATE SODIUM 100 MG CAPSULE (FP) PO SCH (21:26)
[2018-05-07] MEDS: INSULIN (LEVEMIR) 100 UNITS/ML UNITS SQ SCH (21:30)
[2018-05-08] MEDS ORDERED: PIPERACILLIN/TAZOBACTAM 2.25 GM VIAL IVPB ONE (00:56)
[2018-05-08] MEDS ORDERED: DEXTROSE 5%-WATER - 50 ML IVPB ONE (00:57)
[2018-05-08] MEDS: PIPERACILLIN/TAZOB 2.25 GM 2.25 GM in DEXTROSE 5%-WATER - 50 ML IVPB SCH (00:59)
[2018-05-08] MEDS: INSULIN SLIDING SCALE (NOVOLOG) 1 VIAL SQ SCH ×4 (06:11→21:13)
--- NOTE | 2018-05-08 09:06 | PN ---
Progress Note (short form) - Note Progress Note: Patient seen and examined s/p rt BKA 05/03 no chest pain currently getting dialysed no SOB now in Telemetry Vital Signs - 24 hr 05/07/18 05/07/18 05/07/18 16:53 20:28 21:00 Temperature 97.6 F 98.4 F Pulse Rate 67 64 Respiratory 18 18 18 Rate Blood Pressure 138/57 L 122/46 L O2 Sat by Pulse 98 Oximetry (%) 05/07/18 05/08/18 05/08/18 22:00 02:00 06:00 Temperature 98.4 F 99.6 F 98.0 F Pulse Rate 64 62 68 Respiratory 18 20 20 Rate Blood Pressure 122/46 L 123/54 L 126/74 O2 Sat by Pulse Oximetry (%) 05/08/18 05/08/18 05/08/18 10:15 10:20 10:50 Temperature 98.2 F Pulse Rate 60 62 64 Respiratory 18 18 18 Rate Blood Pressure 118/64 120/62 123/60 O2 Sat by Pulse Oximetry (%) 05/08/18 05/08/18 05/08/18 11:20 11:50 12:20 Temperature Pulse Rate 60 59 L 60 Respiratory 18 18 18 Rate Blood Pressure 124/60 130/61 150/60 O2 Sat by Pulse Oximetry (%) 05/08/18 05/08/18 05/08/18 12:50 13:20 13:50 Temperature Pulse Rate 59 L 61 60 Respiratory 18 18 18 Rate Blood Pressure 151/59 L 141/60 149/71 O2 Sat by Pulse Oximetry (%) 05/08/18 05/08/18 14:00 14:59 Temperature 97.5 F L Pulse Rate 60 60 Respiratory 18 20 Rate Blood Pressure 151/74 151/74 O2 Sat by Pulse Oximetry (%) Current Medications Generic Name Dose Route Start Last Admin Trade Name Freq PRN Reason Stop Dose Admin Acetaminophen 650 mg 05/03/18 18:00 05/06/18 19:51 Tylenol - PO 650 mg Q6H PRN Administration PAIN LEVEL 1-5 Artificial Tears 1 drop 05/03/18 18:00 Artificial Tears OU Q12H PRN DRY EYES Aspirin 81 mg 05/04/18 10:00 05/07/18 12:45 Asa - PO 81 mg DAILY [facility] Administration Atorvastatin Calcium 40 mg 05/03/18 22:00 05/07/18 21:26 Lipitor - PO 40 mg HS [facility] Administration Calcium Acetate 667 mg 05/04/18 08:00 05/07/18 17:35 Phoslo - PO 667 mg TIDCM [facility] Administration Carvedilol 12.5 mg 05/03/18 22:00 05/07/18 21:26 Coreg - PO 12.5 mg BID [facility] Administration Citalopram Hydrobromide 20 mg 05/04/18 10:00 05/07/18 12:45 Celexa - PO 20 mg DAILY [facility] Administration Clopidogrel Bisulfate 75 mg 05/06/18 14:00 05/07/18 12:52 Plavix - PO 75 mg DAILY [facility] Administration Collagenase 1 applic 05/04/18 10:00 05/07/18 12:54 Santyl - TP Not Given DAILY [facility] Protocol Divalproex Sodium 125 mg 05/03/18 22:00 05/07/18 22:28 Depakote - PO 125 mg BID [facility] Administration Docusate Sodium 300 mg 05/03/18 22:00 05/07/18 21:26 Colace - PO 300 mg HS [facility] Administration Folic Acid 1 mg 05/04/18 10:00 05/07/18 12:47 Folic Acid - PO 1 mg DAILY [facility] Administration Gabapentin 100 mg 05/03/18 22:00 05/07/18 21:26 Neurontin - PO 100 mg BID [facility] Administration Haloperidol 2 mg 05/03/18 18:00 05/07/18 20:47 Haldol - PO 2 mg TID PRN Administration AGITATION Heparin Sodium (Porcine) 5,000 unit 05/03/18 22:00 05/07/18 21:26 Heparin - SQ 5,000 unit BID [facility] Administration Insulin Aspart 1 vial 05/03/18 22:00 05/08/18 06:11 Novolog Vial Sliding Scale - SQ Not Given ACHS [facility] Protocol Insulin Detemir 10 units 05/03/18 22:00 05/07/18 21:30 Levemir Vial SQ 10 unit HS [facility] Administration Lactobacillus Acidophilus 1 tab 05/04/18 10:00 05/07/18 12:47 Bacid - PO 1 tab DAILY [facility] Administration Multi-Ingredient Ointment 1 gm 05/04/18 10:00 05/07/18 12:54 Zinc Oxide 20% Topical Oint TP 1 applic DAILY [facility] Administration Multivitamins 1 each 05/04/18 10:00 05/07/18 12:45 Total B With C - PO 1 each DAILY [facility] Administration Ondansetron HCl 4 mg 05/03/18 18:00 Zofran Injection IVPUSH Q6H PRN NAUSEA AND/OR VOMITING Ondansetron HCl 4 mg 05/03/18 18:00 Zofran Injection IVPUSH Q6H PRN NAUSEA AND/OR VOMITING Promethazine HCl 12.5 mg 05/03/18 18:00 Phenergan Injection - IVPB Q6H PRN NAUSEA-FOR RESCUE AFTER 15 MIN Quetiapine Fumarate 50 mg 05/03/18 18:00 05/07/18 20:48 Seroquel - PO 50 mg Q12H PRN Administration AGITATION Ranitidine HCl 150 mg 05/04/18 10:00 05/07/18 12:54 Zantac - PO 150 mg DAILY [facility] Administration Tamsulosin HCl 0.4 mg 05/03/18 22:00 05/07/18 21:26 Flomax - PO 0.4 mg HS [facility] Administration Laboratory Results - last 24 hr 05/07/18 05/07/18 05/07/18 15:00 17:36 17:50 WBC 7.6 RBC 2.64 L Hgb 8.1 L Hct 25.1 L D MCV 95.4 MCH 30.6 MCHC 32.1 RDW 17.3 H Plt Count 262 MPV 6.8 L Absolute Neuts (auto) 5.9 Neutrophils % 77.0 Lymphocytes % 9.9 D Monocytes % 9.9 D Eosinophils % 2.5 Basophils % 0.7 Nucleated RBC % 0 Sodium Potassium Chloride Carbon Dioxide Anion Gap BUN Creatinine Creat Clearance w eGFR POC Glucometer 315 Random Glucose Calcium Ferritin Creatine Kinase 241 Creatine Kinase Index 2.3 CK-MB (CK-2) 5.6 H Troponin I 2.38 H* Blood Type Antibody Screen Crossmatch 05/07/18 05/08/18 05/08/18 21:30 05:18 06:26 WBC RBC Hgb Hct MCV MCH MCHC RDW Plt Count MPV Absolute Neuts (auto) Neutrophils % Lymphocytes % Monocytes % Eosinophils % Basophils % Nucleated RBC % Sodium Potassium Chloride Carbon Dioxide Anion Gap BUN Creatinine Creat Clearance w eGFR POC Glucometer 313 122 Random Glucose Calcium Ferritin 656.4 H Creatine Kinase Creatine Kinase Index CK-MB (CK-2) Troponin I Blood Type Antibody Screen Crossmatch 05/08/18 05/08/18 05/08/18 11:00 11:00 11:00 WBC 5.7 RBC 2.37 L Hgb 7.3 L Hct 22.4 L MCV 94.5 MCH 30.9 MCHC 32.7 RDW 17.1 H Plt Count 262 MPV 6.9 L Absolute Neuts (auto) Neutrophils % Lymphocytes % Monocytes % Eosinophils % Basophils % Nucleated RBC % Sodium 143 Potassium 3.5 Chloride 105 Carbon Dioxide 27 Anion Gap 11 BUN 43 H Creatinine 4.9 H Creat Clearance w eGFR 11.74 POC Glucometer Random Glucose 63 L Calcium 7.8 L Ferritin Creatine Kinase 190 Creatine Kinase Index 2.0 CK-MB (CK-2) 3.8 H Troponin I 2.10 H* Blood Type B POSITIVE Antibody Screen Negative Crossmatch See Detail exam- Constitutional: Yes: No Distress, Comfortable. Neck: Yes: Supple. no jvd Cardiovascular: Yes: Regular Rate and Rhythm no chest wall tenderness Respiratory: Yes: Diminished, no ronchi Gastrointestinal: Yes: Soft/ non tender Edema: No Wound/Incision:rt leg-- immobilizer+ Neurological: Yes: Alert Psychiatric: Yes: Alert,calm Assessment/Plan clinically stable Continue present care abx-- Zosyn-- dc today CXR - no infiltrate PRBC today cardiac enzymes trending down continue with medical management per Cardiology- ASA , Plavix diabetic control increase Levemir Problem List - Problems (1) Diabetes Code(s): E11.9 - TYPE 2 DIABETES MELLITUS WITHOUT COMPLICATIONS Qualifiers: Diabetes mellitus type: type 1 Diabetes mellitus complication status: with circulatory complication (2) ESRD (end stage renal disease) on dialysis Code(s): N18.6 - END STAGE RENAL DISEASE; Z99.2 - DEPENDENCE ON RENAL DIALYSIS (3) Infected pressure ulcer Code(s): L89.90 - PRESSURE ULCER OF UNSPECIFIED SITE, UNSPECIFIED STAGE; L08.9 - LOCAL INFECTION OF THE SKIN AND SUBCUTANEOUS TISSUE, UNSP (4) Syncope Code(s): R55 - SYNCOPE AND COLLAPSE (5) Acute metabolic encephalopathy due to hypoglycemia Code(s): G93.41 - METABOLIC ENCEPHALOPATHY; E16.2 - HYPOGLYCEMIA, UNSPECIFIED (6) Anemia Code(s): D64.9 - ANEMIA, UNSPECIFIED (7) CAD (coronary artery disease) Code(s): I25.10 - ATHSCL HEART DISEASE OF [place] CORONARY ARTERY W/O ANG PCTRS (8) ESRD (end stage renal disease) on dialysis Code(s): N18.6 - END STAGE RENAL DISEASE; Z99.2 - DEPENDENCE ON RENAL DIALYSIS
--- NOTE | 2018-05-08 10:36 | PN ---
Progress Note, Physician History of Present Illness: Pt seen and examined at bedside. He denies chest pain. He is confused. - Current Medication List Current Medications: Active Medications Acetaminophen (Tylenol -) 650 mg PO Q6H PRN PRN Reason: PAIN LEVEL 1-5 Last Admin: 05/06/18 19:51 Dose: 650 mg Artificial Tears (Artificial Tears) 1 drop OU Q12H PRN PRN Reason: DRY EYES Aspirin (Asa -) 81 mg PO DAILY [facility] Last Admin: 05/07/18 12:45 Dose: 81 mg Atorvastatin Calcium (Lipitor -) 40 mg PO HS [facility] Last Admin: 05/07/18 21:26 Dose: 40 mg Calcium Acetate (Phoslo -) 667 mg PO TIDCM [facility] Last Admin: 05/07/18 17:35 Dose: 667 mg Carvedilol (Coreg -) 12.5 mg PO BID [facility] Last Admin: 05/07/18 21:26 Dose: 12.5 mg Citalopram Hydrobromide (Celexa -) 20 mg PO DAILY [facility] Last Admin: 05/07/18 12:45 Dose: 20 mg Clopidogrel Bisulfate (Plavix -) 75 mg PO DAILY [facility] Last Admin: 05/07/18 12:52 Dose: 75 mg Collagenase (Santyl -) 1 applic TP DAILY [facility]; Protocol Last Admin: 05/07/18 12:54 Dose: Not Given Divalproex Sodium (Depakote -) 125 mg PO BID [facility] Last Admin: 05/07/18 22:28 Dose: 125 mg Docusate Sodium (Colace -) 300 mg PO HS [facility] Last Admin: 05/07/18 21:26 Dose: 300 mg Folic Acid (Folic Acid -) 1 mg PO DAILY [facility] Last Admin: 05/07/18 12:47 Dose: 1 mg Gabapentin (Neurontin -) 100 mg PO BID [facility] Last Admin: 05/07/18 21:26 Dose: 100 mg Haloperidol (Haldol -) 2 mg PO TID PRN PRN Reason: AGITATION Last Admin: 05/07/18 20:47 Dose: 2 mg Heparin Sodium (Porcine) (Heparin -) 5,000 unit SQ BID [facility] Last Admin: 05/07/18 21:26 Dose: 5,000 unit Sodium Chloride (Normal Saline -) 250 mls @ 3,000 mls/hr IV PRN PRN PRN Reason: Hypotension during Dialysis Stop: 05/08/18 17:52 Insulin Aspart (Novolog Vial Sliding Scale -) 1 vial SQ [facility]; Protocol Last Admin: 05/08/18 06:11 Dose: Not Given Insulin Detemir (Levemir Vial) 10 units SQ [facility] Last Admin: 05/07/18 21:30 Dose: 10 unit Lactobacillus Acidophilus (Bacid -) 1 tab PO DAILY [facility] Last Admin: 05/07/18 12:47 Dose: 1 tab Multi-Ingredient Ointment (Zinc Oxide 20% Topical Oint) 1 gm TP DAILY [facility] Last Admin: 05/07/18 12:54 Dose: 1 applic Multivitamins (Total B With C -) 1 each PO DAILY [facility] Last Admin: 05/07/18 12:45 Dose: 1 each Ondansetron HCl (Zofran Injection) 4 mg IVPUSH Q6H PRN PRN Reason: NAUSEA AND/OR VOMITING Ondansetron HCl (Zofran Injection) 4 mg IVPUSH Q6H PRN PRN Reason: NAUSEA AND/OR VOMITING Promethazine HCl (Phenergan Injection -) 12.5 mg IVPB Q6H PRN PRN Reason: NAUSEA-FOR RESCUE AFTER 15 MIN Quetiapine Fumarate (Seroquel -) 50 mg PO Q12H PRN PRN Reason: AGITATION Last Admin: 05/07/18 20:48 Dose: 50 mg Ranitidine HCl (Zantac -) 150 mg PO DAILY [facility] Last Admin: 05/07/18 12:54 Dose: 150 mg Tamsulosin HCl (Flomax -) 0.4 mg PO [facility] Last Admin: 05/07/18 21:26 Dose: 0.4 mg - Objective Vital Signs: Vital Signs Temperature 98.0 F 05/08/18 06:00 Pulse Rate 68 05/08/18 06:00 Respiratory Rate 20 05/08/18 06:00 Blood Pressure 126/74 05/08/18 06:00 O2 Sat by Pulse Oximetry (%) 98 05/07/18 21:00 Constitutional: Yes: Calm Eyes: Yes: Conjunctiva Clear HENT: Yes: Atraumatic Neck: Yes: Supple Cardiovascular: Yes: S1, S2 Respiratory: Yes: On Nasal O2 Gastrointestinal: Yes: Soft Genitourinary: Yes: Incontinence Musculoskeletal: Yes: Muscle Weakness Edema: No Neurological: Yes: Confusion Labs: CBC, BMP 05/07/18 17:50 05/05/18 05:30 INR, PTT INR 1.28 (0.83-1.09) H 05/03/18 09:30 Problem List - Problems (1) Diabetes Code(s): E11.9 - TYPE 2 DIABETES MELLITUS WITHOUT COMPLICATIONS Qualifiers: Diabetes mellitus type: type 1 Diabetes mellitus complication status: with circulatory complication (2) ESRD (end stage renal disease) on dialysis Code(s): N18.6 - END STAGE RENAL DISEASE; Z99.2 - DEPENDENCE ON RENAL DIALYSIS (3) Syncope Code(s): R55 - SYNCOPE AND COLLAPSE (4) Anemia Code(s): D64.9 - ANEMIA, UNSPECIFIED Assessment/Plan Current Medications Generic Name Dose Route Start Last Admin Trade Name Freq PRN Reason Stop Dose Admin Acetaminophen 650 mg 05/03/18 18:00 05/06/18 19:51 Tylenol - PO 650 mg Q6H PRN Administration PAIN LEVEL 1-5 Artificial Tears 1 drop 05/03/18 18:00 Artificial Tears OU Q12H PRN DRY EYES Aspirin 81 mg 05/04/18 10:00 05/07/18 12:45 Asa - PO 81 mg DAILY [facility] Administration Atorvastatin Calcium 40 mg 05/03/18 22:00 05/07/18 21:26 Lipitor - PO 40 mg HS [facility] Administration Calcium Acetate 667 mg 05/04/18 08:00 05/07/18 17:35 Phoslo - PO 667 mg TIDCM [facility] Administration Carvedilol 12.5 mg 05/03/18 22:00 05/07/18 21:26 Coreg - PO 12.5 mg BID [facility] Administration Citalopram Hydrobromide 20 mg 05/04/18 10:00 05/07/18 12:45 Celexa - PO 20 mg DAILY [facility] Administration Clopidogrel Bisulfate 75 mg 05/06/18 14:00 05/07/18 12:52 Plavix - PO 75 mg DAILY [facility] Administration Collagenase 1 applic 05/04/18 10:00 05/07/18 12:54 Santyl - TP Not Given DAILY [facility] Protocol Divalproex Sodium 125 mg 05/03/18 22:00 05/07/18 22:28 Depakote - PO 125 mg BID [facility] Administration Docusate Sodium 300 mg 05/03/18 22:00 05/07/18 21:26 Colace - PO 300 mg HS [facility] Administration Folic Acid 1 mg 05/04/18 10:00 05/07/18 12:47 Folic Acid - PO 1 mg DAILY [facility] Administration Gabapentin 100 mg 05/03/18 22:00 05/07/18 21:26 Neurontin - PO 100 mg BID [facility] Administration Haloperidol 2 mg 05/03/18 18:00 05/07/18 20:47 Haldol - PO 2 mg TID PRN Administration AGITATION Heparin Sodium (Porcine) 5,000 unit 05/03/18 22:00 05/07/18 21:26 Heparin - SQ 5,000 unit BID [facility] Administration Sodium Chloride 250 mls @ 3,000 mls/hr 05/07/18 17:52 Normal Saline - IV 05/08/18 17:52 PRN PRN Hypotension during Dialysis Insulin Aspart 1 vial 05/03/18 22:00 05/08/18 06:11 Novolog Vial Sliding Scale - SQ Not Given ACHS [facility] Protocol Insulin Detemir 10 units 05/03/18 22:00 05/07/18 21:30 Levemir Vial SQ 10 unit HS [facility] Administration Lactobacillus Acidophilus 1 tab 05/04/18 10:00 05/07/18 12:47 Bacid - PO 1 tab DAILY [facility] Administration Multi-Ingredient Ointment 1 gm 05/04/18 10:00 05/07/18 12:54 Zinc Oxide 20% Topical Oint TP 1 applic DAILY [facility] Administration Multivitamins 1 each 05/04/18 10:00 05/07/18 12:45 Total B With C - PO 1 each DAILY [facility] Administration Ondansetron HCl 4 mg 05/03/18 18:00 Zofran Injection IVPUSH Q6H PRN NAUSEA AND/OR VOMITING Ondansetron HCl 4 mg 05/03/18 18:00 Zofran Injection IVPUSH Q6H PRN NAUSEA AND/OR VOMITING Promethazine HCl 12.5 mg 05/03/18 18:00 Phenergan Injection - IVPB Q6H PRN NAUSEA-FOR RESCUE AFTER 15 MIN Quetiapine Fumarate 50 mg 05/03/18 18:00 05/07/18 20:48 Seroquel - PO 50 mg Q12H PRN Administration AGITATION Ranitidine HCl 150 mg 05/04/18 10:00 05/07/18 12:54 Zantac - PO 150 mg DAILY [facility] Administration Tamsulosin HCl 0.4 mg 05/03/18 22:00 05/07/18 21:26 Flomax - PO 0.4 mg HS [facility] Administration Impression 1. ESRD 2. anemia 3. HTN 4. Chol 5. DM 6. BPH 7. CAD 8. hypoglycemia 9. CHF 10. syncope 11. depression 12. PVD Plan - HD today - check bmp - monitor hg - cardio follow up - pt now in tele unit - will follow - HD at bedside in tele Dr Donovan
[2018-05-08] MEDS ORDERED: SODIUM CHLORIDE 250 ML IV PRN (11:15)
[2018-05-08 11:18] LABS: HEMATOCRIT 22.4 % (35.4-49); HEMOGLOBIN 7.3 GM/dL (11.7-16.9); MCH 30.9 pg (25.7-33.7); MCHC 32.7 g/dl (32.0-35.9); MEAN CELL VOLUME 94.5 fl (80-96); MEAN PLT VOLUME 6.9 fl (7.5-11.1); PLATELET COUNT 262 K/MM3 (134-434); RBC 2.37 M/mm3 (4.00-5.60); RDW 17.1 % (11.9-15.9); WHITE BLOOD COUNT 5.7 K/mm3 (4.0-10.0)
--- NOTE | 2018-05-08 11:40 | PN ---
Progress Note, Physician History of Present Illness: Denies chest pain or dyspnea, undergoing HD on telemetry. - Current Medication List Current Medications: Active Medications Acetaminophen (Tylenol -) 650 mg PO Q6H PRN PRN Reason: PAIN LEVEL 1-5 Last Admin: 05/06/18 19:51 Dose: 650 mg Artificial Tears (Artificial Tears) 1 drop OU Q12H PRN PRN Reason: DRY EYES Aspirin (Asa -) 81 mg PO DAILY [facility] Last Admin: 05/07/18 12:45 Dose: 81 mg Atorvastatin Calcium (Lipitor -) 40 mg PO HS [facility] Last Admin: 05/07/18 21:26 Dose: 40 mg Calcium Acetate (Phoslo -) 667 mg PO TIDCM [facility] Last Admin: 05/07/18 17:35 Dose: 667 mg Carvedilol (Coreg -) 12.5 mg PO BID [facility] Last Admin: 05/07/18 21:26 Dose: 12.5 mg Citalopram Hydrobromide (Celexa -) 20 mg PO DAILY [facility] Last Admin: 05/07/18 12:45 Dose: 20 mg Clopidogrel Bisulfate (Plavix -) 75 mg PO DAILY [facility] Last Admin: 05/07/18 12:52 Dose: 75 mg Collagenase (Santyl -) 1 applic TP DAILY [facility]; Protocol Last Admin: 05/07/18 12:54 Dose: Not Given Divalproex Sodium (Depakote -) 125 mg PO BID [facility] Last Admin: 05/07/18 22:28 Dose: 125 mg Docusate Sodium (Colace -) 300 mg PO [facility] Last Admin: 05/07/18 21:26 Dose: 300 mg Folic Acid (Folic Acid -) 1 mg PO DAILY [facility] Last Admin: 05/07/18 12:47 Dose: 1 mg Gabapentin (Neurontin -) 100 mg PO BID [facility] Last Admin: 05/07/18 21:26 Dose: 100 mg Haloperidol (Haldol -) 2 mg PO TID PRN PRN Reason: AGITATION Last Admin: 05/07/18 20:47 Dose: 2 mg Heparin Sodium (Porcine) (Heparin -) 5,000 unit SQ BID [facility] Last Admin: 05/07/18 21:26 Dose: 5,000 unit Insulin Aspart (Novolog Vial Sliding Scale -) 1 vial SQ [facility]; Protocol Last Admin: 05/08/18 06:11 Dose: Not Given Insulin Detemir (Levemir Vial) 10 units SQ HS [facility] Last Admin: 05/07/18 21:30 Dose: 10 unit Lactobacillus Acidophilus (Bacid -) 1 tab PO DAILY [facility] Last Admin: 05/07/18 12:47 Dose: 1 tab Multi-Ingredient Ointment (Zinc Oxide 20% Topical Oint) 1 gm TP DAILY [facility] Last Admin: 05/07/18 12:54 Dose: 1 applic Multivitamins (Total B With C -) 1 each PO DAILY [facility] Last Admin: 05/07/18 12:45 Dose: 1 each Ondansetron HCl (Zofran Injection) 4 mg IVPUSH Q6H PRN PRN Reason: NAUSEA AND/OR VOMITING Ondansetron HCl (Zofran Injection) 4 mg IVPUSH Q6H PRN PRN Reason: NAUSEA AND/OR VOMITING Promethazine HCl (Phenergan Injection -) 12.5 mg IVPB Q6H PRN PRN Reason: NAUSEA-FOR RESCUE AFTER 15 MIN Quetiapine Fumarate (Seroquel -) 50 mg PO Q12H PRN PRN Reason: AGITATION Last Admin: 05/07/18 20:48 Dose: 50 mg Ranitidine HCl (Zantac -) 150 mg PO DAILY [facility] Last Admin: 05/07/18 12:54 Dose: 150 mg Tamsulosin HCl (Flomax -) 0.4 mg PO [facility] Last Admin: 05/07/18 21:26 Dose: 0.4 mg - Objective Vital Signs: Vital Signs Temperature 98.2 F 05/08/18 10:15 Pulse Rate 64 05/08/18 10:50 Respiratory Rate 18 05/08/18 10:50 Blood Pressure 123/60 05/08/18 10:50 O2 Sat by Pulse Oximetry (%) 98 05/07/18 21:00 Constitutional: Yes: No Distress, Calm, Thin Neck: Yes: Supple Cardiovascular: Yes: Regular Rate and Rhythm Respiratory: Yes: Regular, Diminished Gastrointestinal: Yes: Normal Bowel Sounds, Soft Extremities: Yes: Amputation (Right BKA) Edema: No Labs: CBC, BMP 05/08/18 11:00 INR, PTT INR 1.28 (0.83-1.09) H 05/03/18 09:30 - ....Imaging EKG: Report Reviewed (Tele: NSR) Problem List - Problems (1) Diabetes Code(s): E11.9 - TYPE 2 DIABETES MELLITUS WITHOUT COMPLICATIONS Qualifiers: Diabetes mellitus type: type 1 Diabetes mellitus complication status: with circulatory complication (2) ESRD (end stage renal disease) on dialysis Code(s): N18.6 - END STAGE RENAL DISEASE; Z99.2 - DEPENDENCE ON RENAL DIALYSIS (3) Eschar of heel Code(s): R23.4 - CHANGES IN SKIN TEXTURE (4) CAD (coronary artery disease) Code(s): I25.10 - ATHSCL HEART DISEASE OF [place] CORONARY ARTERY W/O ANG PCTRS Qualifiers: Coronary Disease-Associated Artery/Lesion type: [place] artery [place] vs. transplanted heart: [place] heart Associated angina: without angina Qualified Code(s): I25.10 - Atherosclerotic heart disease of [place] coronary artery without angina pectoris (5) CHF (congestive heart failure) Code(s): I50.9 - HEART FAILURE, UNSPECIFIED (6) CAD (coronary artery disease) Code(s): I25.10 - ATHSCL HEART DISEASE OF [place] CORONARY ARTERY W/O ANG PCTRS Qualifiers: Coronary Disease-Associated Artery/Lesion type: [place] artery [place] vs. transplanted heart: [place] heart Associated angina: without angina Qualified Code(s): I25.10 - Atherosclerotic heart disease of [place] coronary artery without angina pectoris (7) HTN (hypertension) Code(s): I10 - ESSENTIAL (PRIMARY) HYPERTENSION Qualifiers: Hypertension type: essential hypertension Qualified Code(s): I10 - Essential (primary) hypertension (8) Hx of CABG Code(s): Z95.1 - PRESENCE OF AORTOCORONARY BYPASS GRAFT (9) Hypercholesterolemia Code(s): E78.00 - PURE HYPERCHOLESTEROLEMIA, UNSPECIFIED (10) PAD (peripheral artery disease) Code(s): I73.9 - PERIPHERAL VASCULAR DISEASE, UNSPECIFIED (11) S/P coronary artery stent placement Code(s): Z95.5 - PRESENCE OF CORONARY ANGIOPLASTY IMPLANT AND GRAFT (12) Demand ischemia Code(s): I24.8 - OTHER FORMS OF ACUTE ISCHEMIC HEART DISEASE Assessment/Plan 12/19/2017 Normal LV size with mild-mod decrease LV fxn, mild STEPHEN, mild TR, MR, can't exclude MV vegetation 1. PAD s/p LE bypass, heel wound (non healing) s/p angioplasty right posterior tibial artery, s/p angioplasty left anterior tibial artery and left heel wound vac, POD#5 right BKA 2. HTN 3. Hypercholesterolemia 4. DM 5. Diastolic/Systolic LV dysfunction with class 0 NYHA classification LV failure 6. CAD s/p CABG, PCI/stent, demand ischemia 7. ESRD on HD 8. Anemia of CKD PLAN: 1. Continue Carvedilol 12.5 bid, Lipitor 40 qhs, ASA 81 qd, Plavix 75 qd 2. Completed empiric antibiotic course, left wound vac care and right BKA post- op care as per vascular surgery 3. HD per renal, transfuse to maintain Hgb>8.0, trend trops to document peak 4. DVT and GI prophylaxis
[2018-05-08 11:44] LABS: ANION GAP 11 MMOL/L (8-16); BLOOD UREA NITROGEN 43 mg/dL (7-18); CALCIUM 7.8 mg/dL (8.5-10.1); CHLORIDE 105 mmol/L (98-107); CO2 27 mmol/L (21-32); CREATININE 4.9 mg/dL (0.55-1.3); GLUCOSE,RANDOM 63 mg/dL (74-106); POTASSIUM 3.5 mmol/L (3.5-5.1); SODIUM 143 mmol/L (136-145)
[2018-05-08] MEDS: FOLIC ACID 1 MG TABLET (FP) PO SCH (16:05)
[2018-05-08] MEDS: ASPIRIN 81 MG CHEWABLE TABLETS PO SCH (16:05)
[2018-05-08] MEDS: DIVALPROEX SODIUM 125 MG TABLET E.C. PO SCH ×2 (16:05→21:11)
[2018-05-08] MEDS: LACTOBACILLUS ACIDOPHILUS 1 TABLET PO SCH (16:05)
[2018-05-08] MEDS: CITALOPRAM HYDROBROMIDE 20 MG TABLET (FP) PO SCH (16:05)
[2018-05-08] MEDS: CARVEDILOL 12.5 MG TABLET (FP) PO SCH ×2 (16:05→21:11)
[2018-05-08] MEDS: GABAPENTIN 100 MG CAPSULE (FP) PO SCH ×2 (16:06→21:11)
[2018-05-08] MEDS: CLOPIDOGREL BISULFATE 75 MG TABLET (FP) PO SCH (16:06)
[2018-05-08] MEDS: HEPARIN NA (PORCINE) 5,000 UNITS/ML 1ML VIAL SQ SCH ×2 (16:06→21:14)
[2018-05-08] MEDS: RANITIDINE HCL 150 MG TABLET (FP) PO SCH (16:07)
[2018-05-08] MEDS: CALCIUM ACETATE 667 MG CAPSULE (FP) PO SCH ×3 (17:37→17:38)
[2018-05-08] MEDS: COLLAGENASE CLOSTRIDIUM HIST. 30 GRAMS TUBE TP SCH (17:38)
[2018-05-08] MEDS: VITAMIN B COMPLEX W/C COMBO TABLET (FP) PO SCH (17:40)
[2018-05-08] MEDS ORDERED: PT OWN MED DRAWER 7, Y5N ONE (20:38)
[2018-05-08] MEDS: QUEtiapine FUMARATE 50 MG TABLET PO PRN (21:10)
[2018-05-08] MEDS: DOCUSATE SODIUM 100 MG CAPSULE (FP) PO SCH (21:10)
[2018-05-08] MEDS: ATORVASTATIN CA 40 MG TABLET (FP) PO SCH (21:11)
[2018-05-08] MEDS: TAMSULOSIN HCL 0.4 MG CAP.ER.24H (FP) PO SCH (21:11)
[2018-05-08] MEDS: INSULIN (LEVEMIR) 100 UNITS/ML UNITS SQ SCH (21:12)
[2018-05-09 06:06] LABS: SERUM IRON SATURATION 27 % (15-55); TOTAL IRON BINDING CAPACITY 113 ug/dL (250-450); UIBC 82 ug/dL (111-343)
[2018-05-09] MEDS: INSULIN SLIDING SCALE (NOVOLOG) 1 VIAL SQ SCH ×2 (06:09→11:00)
[2018-05-09 07:21] LABS: HEMATOCRIT 26.2 % (35.4-49); HEMOGLOBIN 8.7 GM/dL (11.7-16.9); MCH 30.6 pg (25.7-33.7); MCHC 33.3 g/dl (32.0-35.9); MEAN CELL VOLUME 91.8 fl (80-96); MEAN PLT VOLUME 6.7 fl (7.5-11.1); PLATELET COUNT 259 K/MM3 (134-434); RBC 2.85 M/mm3 (4.00-5.60); RDW 17.7 % (11.9-15.9); WHITE BLOOD COUNT 7.4 K/mm3 (4.0-10.0)
--- NOTE | 2018-05-09 08:07 | PN ---
Progress Note (short form) - Note Progress Note: 72M s/p Right BKA POD #5. Pt seen and examined at bedside. Pt awake, but confused at baseline so history difficult. Complains of mild pain at stump. Denies fever, chills. Last Vital Signs Temp Pulse Resp BP Pulse Ox 98.4 F 65 20 148/57 L 96 05/09/18 03:13 05/09/18 03:13 05/09/18 03:13 05/09/18 03:13 05/08/18 21:00 CBC, BMP 05/09/18 05:30 05/08/18 11:00 PE: Gen: Awake, but confused at baseline Resp: breathing comfortably Ext: Vac dressing in place on Left heel with good seal. RLE shows incision site is clean with no erythema, some mild serosanguinous discharge. No purulence or foul odor. Problem List - Problems (1) S/P BKA (below knee amputation) Assessment/Plan: Plan -Incision appears to be clean and healing well. Dressing changed at bedside. -pt being evaluated for possible hyperbaric treatment -pt cleared from vascular surgery standpoint for discharge, should follow up with wound care clinic, Dr. Schofield as outpatient. -discharge as per medicine Code(s): Z89.519 - ACQUIRED ABSENCE OF UNSPECIFIED LEG BELOW KNEE
[2018-05-09] MEDS: RANITIDINE HCL 150 MG TABLET (FP) PO SCH (10:12)
[2018-05-09] MEDS: FOLIC ACID 1 MG TABLET (FP) PO SCH (10:12)
[2018-05-09] MEDS: CITALOPRAM HYDROBROMIDE 20 MG TABLET (FP) PO SCH (10:13)
[2018-05-09] MEDS: CARVEDILOL 12.5 MG TABLET (FP) PO SCH (10:13)
[2018-05-09] MEDS: CALCIUM ACETATE 667 MG CAPSULE (FP) PO SCH ×2 (10:13→12:52)
[2018-05-09] MEDS: CLOPIDOGREL BISULFATE 75 MG TABLET (FP) PO SCH (10:13)
[2018-05-09] MEDS: ASPIRIN 81 MG CHEWABLE TABLETS PO SCH (10:13)
[2018-05-09] MEDS: GABAPENTIN 100 MG CAPSULE (FP) PO SCH (10:13)
[2018-05-09] MEDS: LACTOBACILLUS ACIDOPHILUS 1 TABLET PO SCH (10:13)
[2018-05-09] MEDS: VITAMIN B COMPLEX W/C COMBO TABLET (FP) PO SCH (10:15)
[2018-05-09] MEDS: COLLAGENASE CLOSTRIDIUM HIST. 30 GRAMS TUBE TP SCH (10:15)
[2018-05-09] MEDS: HEPARIN NA (PORCINE) 5,000 UNITS/ML 1ML VIAL SQ SCH (10:15)
[2018-05-09] MEDS ORDERED: PT OWN MED DRAWER 7, Y5N ONE (10:20)
--- NOTE | 2018-05-09 10:57 | DS ---
Physical Examination Vital Signs: Vital Signs Temperature 98.4 F 05/09/18 03:13 Pulse Rate 65 05/09/18 03:13 Respiratory Rate 20 05/09/18 03:13 Blood Pressure 148/57 L 05/09/18 03:13 O2 Sat by Pulse Oximetry (%) 96 05/08/18 21:00 Labs: CBC, BMP 05/09/18 05:30 05/08/18 11:00 Discharge Summary Reason For Visit: SYNCOPE Current Active Problems Diabetes (Acute) ESRD (end stage renal disease) on dialysis (Acute) Eschar of heel (Acute) Fever (Acute) Infected pressure ulcer (Acute) Pre-operative cardiovascular examination (Acute) S/P BKA (below knee amputation) (Acute) S/P coronary artery stent placement (Acute) Syncope (Acute) Procedures: Principal: 05/03/18- right BKA Other Procedures: 04/15/18- left posterior tibial artery revascularisation. 04/22- Debridement of heel ulcers- B/L heels. 05/01/18- angiogram of leg leg Hospital Course: Pt admitted for s/p fall- possible syncope- he was seen by [employer] - telemetry uneventful. He also had B/L heels ulcers-pt underwent the above procedures for it He was under the care of Vascular surgery- Dr Schofield. He had dialysis per Renal Long hospital stay was on iv antibiotics pt ultimately had Right BKA done on 05/03/18 Pt later developed chest pain and had elevated troponins- seen by Cardiology and pt was medically managed. Troponins are trending down. Pt is to continue ASA and Plavix. pt is cleared by Surgeon for discharge- pt needs to follow up with him as an out patient pt needs wound vac for left heel stable for dc to [facility] Condition: Stable - Instructions Referrals: Bernardo Del Valle MD [Primary Care Provider] - [facility] - Home Medications Comprehensive Discharge Medication List: Ambulatory Orders Carvedilol [Coreg -] 12.5 mg PO BID #60 tablet 12/18/17 Tamsulosin HCl [Flomax -] 0.4 mg PO HS #30 cap.er.24h 12/18/17 Amlodipine Besylate 10 mg PO DAILY 02/17/18 Aspirin [Adult Aspirin] 81 mg PO DAILY 02/17/18 Atorvastatin Ca [Lipitor] 40 mg PO HS 02/17/18 Collagenase Clostridium Hist. [Santyl -] 1 applic TP DAILY 02/17/18 Divalproex [Depakote -] 125 mg PO BID 02/17/18 Docusate Sodium 300 mg PO HS 02/17/18 Folic Acid 1 mg PO DAILY 02/17/18 Haloperidol 2 mg PO HS 02/17/18 Insulin Glargine,Hum.rec.anlog [Lantus Solostar] 10 unit SQ HS 02/17/18 Calcium Acetate [Phoslo -] 667 mg PO TIDCM 03/28/18 Citalopram Hydrobromide [Celexa -] 20 mg PO DAILY 03/28/18 Clopidogrel Bisulfate [Plavix -] 75 mg PO DAILY 03/28/18 Dextran 70/Hypromellose/Pf [Artificial Tears Drops] 1 each OU BID PRN 03/28/18 Famotidine 20 mg PO DAILY 03/28/18 Gabapentin [Neurontin -] 100 mg PO Q8H 03/28/18 Insulin Lispro [Humalog] unit SQ BID 03/28/18 LORazepam [Ativan] 0.5 mg PO [facility] 03/28/18 Mirtazapine [Remeron -] 15 mg PO HS 03/28/18 Vitamin B Complex [Balance B-50] 1 each PO DAILY 03/28/18 Zinc Oxide 20% Topical Oint 454 gm NR ASDIR 03/28/18
--- NOTE | 2018-05-09 13:57 | PATH ---
Surgical Pathology Report Patient Name: [facility] FR[facility]IS [facility]. Rec. #: [id number] /Age/Gender: 1945 (Age: 72) / M Account: [id number] Location: 4 TELEMETRY U Taken: 05/03/2018 Received: 05/06/2018 Reported: 05/09/2018 Physicians: Augustin Schofield M.D. Specimen(s) Received RIGHT BELOW KNEE AMPUTATION Clinical History Gangrenous right foot Final Diagnosis RIGHT BELOW KNEE, AMPUTATION: BELOW KNEE AMPUTATION SHOWING SKIN WITH ULCERATION, GANGRENOUS NECROSIS, SEVERE ACUTE AND CHRONIC INFLAMMATION. BONE UNDER THE ULCERATION SHOWING ACUTE OSTEOMYELITIS. TIBIAL AND FIBULAR ARTERIES SHOWING MODERATE TO SEVERE ATHEROSCLEROSIS WITH CALCIFICATION. THE BONE MARROW MARGINS ARE NEGATIVE FOR OSTEOMYELITIS. VIABLE SKIN AND SOFT TISSUE MARGIN. Electronically Signed Ada Padron M.D. Gross Description Specimen labeled "right below knee amputation", received without fixative, is a below knee amputation specimen. The leg measures 32 cm in length from the margin of resection to the heel. The foot measures 26.5 cm in length and 21 cm in circumference. There is an ulcer (9.5 x 6.5 cm) in the plantar aspect of the heel, with focal purulent necrotic center and black necrotic borders. On sectioning necrotic debris and purulent exudate is present. The bone underneath the area of the ulcer appears porous surrounded by yellow exudate. The rest of the leg shows no gross lesions. The surgical soft tissue and bone are hemorrhagic and appear viable. Pieces of bone from areas of ulceration are submitted after fixation and decalcification. In Home Aide sections submitted: 1- skin and soft tissue margin, 2-tibia bone marrow margin, 3- fibular bone marrow margin, 4- ulcer, 5-bone under ulcer, 6-tibial arteries,7- fibular artery. KWS/05/06/2018 sulki/05/06/2018
--- NOTE | 2018-05-09 14:05 | PN ---
Progress Note, Physician History of Present Illness: Pt seen and examined at bedside. He is awake and appears comfortable. He denies shortness of breath. - Current Medication List Current Medications: Active Medications Acetaminophen (Tylenol -) 650 mg PO Q6H PRN PRN Reason: PAIN LEVEL 1-5 Last Admin: 05/06/18 19:51 Dose: 650 mg Artificial Tears (Artificial Tears) 1 drop OU Q12H PRN PRN Reason: DRY EYES Aspirin (Asa -) 81 mg PO DAILY [facility] Last Admin: 05/09/18 10:13 Dose: 81 mg Atorvastatin Calcium (Lipitor -) 40 mg PO HS [facility] Last Admin: 05/08/18 21:11 Dose: 40 mg Calcium Acetate (Phoslo -) 667 mg PO TIDCM [facility] Last Admin: 05/09/18 10:13 Dose: 667 mg Carvedilol (Coreg -) 12.5 mg PO BID [facility] Last Admin: 05/09/18 10:13 Dose: 12.5 mg Citalopram Hydrobromide (Celexa -) 20 mg PO DAILY [facility] Last Admin: 05/09/18 10:13 Dose: 20 mg Clopidogrel Bisulfate (Plavix -) 75 mg PO DAILY [facility] Last Admin: 05/09/18 10:13 Dose: 75 mg Collagenase (Santyl -) 1 applic TP DAILY [facility]; Protocol Last Admin: 05/09/18 10:15 Dose: Not Given Divalproex Sodium (Depakote -) 125 mg PO BID [facility] Last Admin: 05/08/18 21:11 Dose: 125 mg Docusate Sodium (Colace -) 300 mg PO [facility] Last Admin: 05/08/18 21:10 Dose: 300 mg Folic Acid (Folic Acid -) 1 mg PO DAILY [facility] Last Admin: 05/09/18 10:12 Dose: 1 mg Gabapentin (Neurontin -) 100 mg PO BID [facility] Last Admin: 05/09/18 10:13 Dose: 100 mg Haloperidol (Haldol -) 2 mg PO TID PRN PRN Reason: AGITATION Last Admin: 05/07/18 20:47 Dose: 2 mg Heparin Sodium (Porcine) (Heparin -) 5,000 unit SQ BID [facility] Last Admin: 05/09/18 10:15 Dose: 5,000 unit Insulin Aspart (Novolog Vial Sliding Scale -) 1 vial SQ [facility]; Protocol Last Admin: 05/09/18 06:09 Dose: Not Given Insulin Detemir (Levemir Vial) 10 units SQ HS [facility] Last Admin: 05/08/18 21:12 Dose: 10 unit Lactobacillus Acidophilus (Bacid -) 1 tab PO DAILY [facility] Last Admin: 05/09/18 10:13 Dose: 1 tab Multi-Ingredient Ointment (Zinc Oxide 20% Topical Oint) 1 gm TP DAILY [facility] Last Admin: 05/07/18 12:54 Dose: 1 applic Multivitamins (Total B With C -) 1 each PO DAILY [facility] Last Admin: 05/09/18 10:15 Dose: 1 each Ondansetron HCl (Zofran Injection) 4 mg IVPUSH Q6H PRN PRN Reason: NAUSEA AND/OR VOMITING Ondansetron HCl (Zofran Injection) 4 mg IVPUSH Q6H PRN PRN Reason: NAUSEA AND/OR VOMITING Promethazine HCl (Phenergan Injection -) 12.5 mg IVPB Q6H PRN PRN Reason: NAUSEA-FOR RESCUE AFTER 15 MIN Quetiapine Fumarate (Seroquel -) 50 mg PO Q12H PRN PRN Reason: AGITATION Last Admin: 05/08/18 21:10 Dose: 50 mg Ranitidine HCl (Zantac -) 150 mg PO DAILY [facility] Last Admin: 05/09/18 10:12 Dose: 150 mg Tamsulosin HCl (Flomax -) 0.4 mg PO [facility] Last Admin: 05/08/18 21:11 Dose: 0.4 mg - Objective Vital Signs: Vital Signs Temperature 98.4 F 05/09/18 03:13 Pulse Rate 65 05/09/18 03:13 Respiratory Rate 20 05/09/18 03:13 Blood Pressure 148/57 L 05/09/18 03:13 O2 Sat by Pulse Oximetry (%) 96 05/08/18 21:00 Constitutional: Yes: Calm Eyes: Yes: Conjunctiva Clear HENT: Yes: Atraumatic Cardiovascular: Yes: S1, S2 Respiratory: Yes: CTA Bilaterally Gastrointestinal: Yes: Soft Musculoskeletal: Yes: Other (s/p bka) Edema: No Wound/Incision: Yes: Other (wound vac) Neurological: Yes: Confusion Labs: CBC, BMP 05/09/18 05:30 05/08/18 11:00 INR, PTT INR 1.28 (0.83-1.09) H 05/03/18 09:30 Problem List - Problems (1) Diabetes Code(s): E11.9 - TYPE 2 DIABETES MELLITUS WITHOUT COMPLICATIONS Qualifiers: Diabetes mellitus type: type 1 Diabetes mellitus complication status: with circulatory complication (2) ESRD (end stage renal disease) on dialysis Code(s): N18.6 - END STAGE RENAL DISEASE; Z99.2 - DEPENDENCE ON RENAL DIALYSIS (3) Syncope Code(s): R55 - SYNCOPE AND COLLAPSE (4) Anemia Code(s): D64.9 - ANEMIA, UNSPECIFIED Assessment/Plan Current Medications Generic Name Dose Route Start Last Admin Trade Name Freq PRN Reason Stop Dose Admin Acetaminophen 650 mg 05/03/18 18:00 05/06/18 19:51 Tylenol - PO 650 mg Q6H PRN Administration PAIN LEVEL 1-5 Artificial Tears 1 drop 05/03/18 18:00 Artificial Tears OU Q12H PRN DRY EYES Aspirin 81 mg 05/04/18 10:00 05/09/18 10:13 Asa - PO 81 mg DAILY [facility] Administration Atorvastatin Calcium 40 mg 05/03/18 22:00 05/08/18 21:11 Lipitor - PO 40 mg HS [facility] Administration Calcium Acetate 667 mg 05/04/18 08:00 05/09/18 10:13 Phoslo - PO 667 mg TIDCM [facility] Administration Carvedilol 12.5 mg 05/03/18 22:00 05/09/18 10:13 Coreg - PO 12.5 mg BID [facility] Administration Citalopram Hydrobromide 20 mg 05/04/18 10:00 05/09/18 10:13 Celexa - PO 20 mg DAILY [facility] Administration Clopidogrel Bisulfate 75 mg 05/06/18 14:00 05/09/18 10:13 Plavix - PO 75 mg DAILY [facility] Administration Collagenase 1 applic 05/04/18 10:00 05/09/18 10:15 Santyl - TP Not Given DAILY [facility] Protocol Divalproex Sodium 125 mg 05/03/18 22:00 05/08/18 21:11 Depakote - PO 125 mg BID [facility] Administration Docusate Sodium 300 mg 05/03/18 22:00 05/08/18 21:10 Colace - PO 300 mg HS [facility] Administration Folic Acid 1 mg 05/04/18 10:00 05/09/18 10:12 Folic Acid - PO 1 mg DAILY [facility] Administration Gabapentin 100 mg 05/03/18 22:00 05/09/18 10:13 Neurontin - PO 100 mg BID [facility] Administration Haloperidol 2 mg 05/03/18 18:00 05/07/18 20:47 Haldol - PO 2 mg TID PRN Administration AGITATION Heparin Sodium (Porcine) 5,000 unit 05/03/18 22:00 05/09/18 10:15 Heparin - SQ 5,000 unit BID [facility] Administration Insulin Aspart 1 vial 05/03/18 22:00 05/09/18 06:09 Novolog Vial Sliding Scale - SQ Not Given [facility]S [facility] Protocol Insulin Detemir 10 units 05/03/18 22:00 05/08/18 21:12 Levemir Vial SQ 10 unit HS [facility] Administration Lactobacillus Acidophilus 1 tab 05/04/18 10:00 05/09/18 10:13 Bacid - PO 1 tab DAILY [facility] Administration Multi-Ingredient Ointment 1 gm 05/04/18 10:00 05/07/18 12:54 Zinc Oxide 20% Topical Oint TP 1 applic DAILY [facility] Administration Multivitamins 1 each 05/04/18 10:00 05/09/18 10:15 Total B With C - PO 1 each DAILY [facility] Administration Ondansetron HCl 4 mg 05/03/18 18:00 Zofran Injection IVPUSH Q6H PRN NAUSEA AND/OR VOMITING Ondansetron HCl 4 mg 05/03/18 18:00 Zofran Injection IVPUSH Q6H PRN NAUSEA AND/OR VOMITING Promethazine HCl 12.5 mg 05/03/18 18:00 Phenergan Injection - IVPB Q6H PRN NAUSEA-FOR RESCUE AFTER 15 MIN Quetiapine Fumarate 50 mg 05/03/18 18:00 05/08/18 21:10 Seroquel - PO 50 mg Q12H PRN Administration AGITATION Ranitidine HCl 150 mg 05/04/18 10:00 05/09/18 10:12 Zantac - PO 150 mg DAILY [facility] Administration Tamsulosin HCl 0.4 mg 05/03/18 22:00 05/08/18 21:11 Flomax - PO 0.4 mg HS [facility] Administration Impression 1. ESRD 2. anemia 3. HTN 4. Chol 5. DM 6. BPH 7. CAD 8. hypoglycemia 9. CHF 10. syncope 11. depression 12. PVD Plan - pt has HD tomorrow - HD is scheduled as outpt - monitor hg - epogen for anemia - cont wound care - will need podiatry and vascular follow up Dr Donovan
[2018-05-09] MEDS: DIVALPROEX SODIUM 125 MG TABLET E.C. PO SCH (14:51)
[2018-05-09] MEDS: ZINC OXIDE 20% TOPICAL OINTMENT 454 GM JAR TP SCH (14:51)
[2018-05-09 15:31] VITALS: BP 131/64; PULSE 63; TEMP 98.2
--- NOTE | 2018-05-09 15:56 | PN ---
Progress Note, Physician History of Present Illness: Denies chest pain or dyspnea, no events on telemetry. - Current Medication List Current Medications: Active Medications Acetaminophen (Tylenol -) 650 mg PO Q6H PRN PRN Reason: PAIN LEVEL 1-5 Last Admin: 05/06/18 19:51 Dose: 650 mg Artificial Tears (Artificial Tears) 1 drop OU Q12H PRN PRN Reason: DRY EYES Aspirin (Asa -) 81 mg PO DAILY [facility] Last Admin: 05/09/18 10:13 Dose: 81 mg Atorvastatin Calcium (Lipitor -) 40 mg PO HS [facility] Last Admin: 05/08/18 21:11 Dose: 40 mg Calcium Acetate (Phoslo -) 667 mg PO TIDCM [facility] Last Admin: 05/09/18 12:52 Dose: 667 mg Carvedilol (Coreg -) 12.5 mg PO BID [facility] Last Admin: 05/09/18 10:13 Dose: 12.5 mg Citalopram Hydrobromide (Celexa -) 20 mg PO DAILY [facility] Last Admin: 05/09/18 10:13 Dose: 20 mg Clopidogrel Bisulfate (Plavix -) 75 mg PO DAILY [facility] Last Admin: 05/09/18 10:13 Dose: 75 mg Collagenase (Santyl -) 1 applic TP DAILY [facility]; Protocol Last Admin: 05/09/18 10:15 Dose: Not Given Divalproex Sodium (Depakote -) 125 mg PO BID [facility] Last Admin: 05/09/18 14:51 Dose: 125 mg Docusate Sodium (Colace -) 300 mg PO [facility] Last Admin: 05/08/18 21:10 Dose: 300 mg Folic Acid (Folic Acid -) 1 mg PO DAILY [facility] Last Admin: 05/09/18 10:12 Dose: 1 mg Gabapentin (Neurontin -) 100 mg PO BID [facility] Last Admin: 05/09/18 10:13 Dose: 100 mg Haloperidol (Haldol -) 2 mg PO TID PRN PRN Reason: AGITATION Last Admin: 05/07/18 20:47 Dose: 2 mg Heparin Sodium (Porcine) (Heparin -) 5,000 unit SQ BID [facility] Last Admin: 05/09/18 10:15 Dose: 5,000 unit Insulin Aspart (Novolog Vial Sliding Scale -) 1 vial SQ [facility]; Protocol Last Admin: 05/09/18 11:00 Dose: Not Given Insulin Detemir (Levemir Vial) 10 units SQ HS [facility] Last Admin: 05/08/18 21:12 Dose: 10 unit Lactobacillus Acidophilus (Bacid -) 1 tab PO DAILY [facility] Last Admin: 05/09/18 10:13 Dose: 1 tab Multi-Ingredient Ointment (Zinc Oxide 20% Topical Oint) 1 gm TP DAILY [facility] Last Admin: 05/09/18 14:51 Dose: 1 applic Multivitamins (Total B With C -) 1 each PO DAILY [facility] Last Admin: 05/09/18 10:15 Dose: 1 each Ondansetron HCl (Zofran Injection) 4 mg IVPUSH Q6H PRN PRN Reason: NAUSEA AND/OR VOMITING Ondansetron HCl (Zofran Injection) 4 mg IVPUSH Q6H PRN PRN Reason: NAUSEA AND/OR VOMITING Promethazine HCl (Phenergan Injection -) 12.5 mg IVPB Q6H PRN PRN Reason: NAUSEA-FOR RESCUE AFTER 15 MIN Quetiapine Fumarate (Seroquel -) 50 mg PO Q12H PRN PRN Reason: AGITATION Last Admin: 05/08/18 21:10 Dose: 50 mg Ranitidine HCl (Zantac -) 150 mg PO DAILY [facility] Last Admin: 05/09/18 10:12 Dose: 150 mg Tamsulosin HCl (Flomax -) 0.4 mg PO [facility] Last Admin: 05/08/18 21:11 Dose: 0.4 mg - Objective Vital Signs: Vital Signs Temperature 98.2 F 05/09/18 14:10 Pulse Rate 63 05/09/18 14:10 Respiratory Rate 20 05/09/18 14:10 Blood Pressure 131/64 05/09/18 14:10 O2 Sat by Pulse Oximetry (%) 96 05/09/18 10:00 Constitutional: Yes: No Distress, Calm, Thin Neck: Yes: Supple Cardiovascular: Yes: Regular Rate and Rhythm Respiratory: Yes: Regular, Diminished, On Nasal O2 Gastrointestinal: Yes: Normal Bowel Sounds, Soft Extremities: Yes: Amputation (Rt BKA) Edema: No Labs: CBC, BMP 05/09/18 05:30 05/08/18 11:00 INR, PTT INR 1.28 (0.83-1.09) H 05/03/18 09:30 Problem List - Problems (1) Diabetes Code(s): E11.9 - TYPE 2 DIABETES MELLITUS WITHOUT COMPLICATIONS Qualifiers: Diabetes mellitus type: type 1 Diabetes mellitus complication status: with circulatory complication (2) ESRD (end stage renal disease) on dialysis Code(s): N18.6 - END STAGE RENAL DISEASE; Z99.2 - DEPENDENCE ON RENAL DIALYSIS (3) Eschar of heel Code(s): R23.4 - CHANGES IN SKIN TEXTURE (4) CHF (congestive heart failure) Code(s): I50.9 - HEART FAILURE, UNSPECIFIED (5) CAD (coronary artery disease) Code(s): I25.10 - ATHSCL HEART DISEASE OF [place] CORONARY ARTERY W/O ANG PCTRS Qualifiers: Coronary Disease-Associated Artery/Lesion type: hoh artery Circle vs. transplanted heart: hoh heart Associated angina: without angina Qualified Code(s): I25.10 - Atherosclerotic heart disease of [place] coronary artery without angina pectoris (6) HTN (hypertension) Code(s): I10 - ESSENTIAL (PRIMARY) HYPERTENSION Qualifiers: Hypertension type: essential hypertension Qualified Code(s): I10 - Essential (primary) hypertension (7) Hx of CABG Code(s): Z95.1 - PRESENCE OF AORTOCORONARY BYPASS GRAFT (8) Hypercholesterolemia Code(s): E78.00 - PURE HYPERCHOLESTEROLEMIA, UNSPECIFIED (9) PAD (peripheral artery disease) Code(s): I73.9 - PERIPHERAL VASCULAR DISEASE, UNSPECIFIED (10) S/P coronary artery stent placement Code(s): Z95.5 - PRESENCE OF CORONARY ANGIOPLASTY IMPLANT AND GRAFT (11) Demand ischemia Code(s): I24.8 - OTHER FORMS OF ACUTE ISCHEMIC HEART DISEASE Assessment/Plan 12/19/2017 Normal LV size with mild-mod decrease LV fxn, mild STEPHEN, mild TR, MR, can't exclude MV vegetation 1. PAD s/p LE bypass, heel wound (non healing) s/p angioplasty right posterior tibial artery, s/p angioplasty left anterior tibial artery and left heel wound vac, POD#6 right BKA 2. HTN 3. Hypercholesterolemia 4. DM 5. Diastolic/Systolic LV dysfunction with class 0 NYHA classification LV failure 6. CAD s/p CABG, PCI/stent, demand ischemia 7. ESRD on HD 8. Anemia of CKD PLAN: 1. Continue Carvedilol 12.5 bid, Lipitor 40 qhs, ASA 81 qd, Plavix 75 qd 2. Completed empiric antibiotic course, left wound vac care and right BKA post- op care as per vascular surgery 3. HD per renal, transfuse to maintain Hgb>8.0, Trops downtrending 4. DVT and GI prophylaxis
== END 2018-05-09 18:29 | DRG 239 ==
LOC: JER 20:39 → JERBED 03-29 02:33 → OBSVTOIN 03-29 04:13 → J4W 03-29 16:15 → J7W 04-02 14:24 → J4W 05-07 18:45
PROVIDERS: ADMIT Internal Medicine; ATTEND Internal Medicine
PROC: 04CS0ZZ Extirpation of Matter from Left Posterior Tibial Artery, Open Approach (ICD-10-PCS; 2018-04-15)
PROC: 047S0ZZ Dilation of Left Posterior Tibial Artery, Open Approach (ICD-10-PCS; 2018-04-15)
PROC: 0JBQ0ZZ Excision of Right Foot Subcutaneous Tissue and Fascia, Open Approach (ICD-10-PCS; 2018-04-22)
PROC: 0JBR0ZZ Excision of Left Foot Subcutaneous Tissue and Fascia, Open Approach (ICD-10-PCS; 2018-04-22)
PROC: 0KBV0ZZ Excision of Right Foot Muscle, Open Approach (ICD-10-PCS; 2018-04-22)
PROC: 30233R1 Transfusion of Nonautologous Platelets into Peripheral Vein, Percutaneous Approach (ICD-10-PCS; 2018-04-23)
PROC: 30233N1 Transfusion of Nonautologous Red Blood Cells into Peripheral Vein, Percutaneous Approach (ICD-10-PCS; 2018-04-23)
PROC: 047Q3Z6 (ICD-10-PCS; 2018-05-01)
PROC: B40DYZZ Plain Radiography of Aorta and Bilateral Lower Extremity Arteries using Other Contrast (ICD-10-PCS; 2018-05-01)
PROC: 0Y6F0ZZ Detachment at Right Knee Region, Open Approach (ICD-10-PCS; principal; 2018-05-03 14:30)
PROC: 5A1D70Z Performance of Urinary Filtration, Intermittent, Less than 6 Hours Per Day (ICD-10-PCS; 2018-05-08)
DX: E11.52 Type 2 diabetes mellitus with diabetic peripheral angiopathy with gangrene (principal); L89.623 Pressure ulcer of left heel, stage 3; N18.6 End stage renal disease; G93.41 Metabolic encephalopathy; I13.2 Hypertensive heart and chronic kidney disease with heart failure and with stage 5 chronic kidney disease, or end stage renal disease; I50.40 Unspecified combined systolic (congestive) and diastolic (congestive) heart failure; I12.0 Hypertensive chronic kidney disease with stage 5 chronic kidney disease or end stage renal disease; E11.649 Type 2 diabetes mellitus with hypoglycemia without coma; L89.619 Pressure ulcer of right heel, unspecified stage; B35.1 Tinea unguium; I73.9 Peripheral vascular disease, unspecified; I25.10 Atherosclerotic heart disease of native coronary artery without angina pectoris; I10 Essential (primary) hypertension; Z98.61 Coronary angioplasty status; E11.22 Type 2 diabetes mellitus with diabetic chronic kidney disease; Z99.2 Dependence on renal dialysis; Z95.1 Presence of aortocoronary bypass graft; D64.9 Anemia, unspecified; N40.0 Benign prostatic hyperplasia without lower urinary tract symptoms; F32.9 Major depressive disorder, single episode, unspecified
CPT/HCPCS: 36415; 36430; 36511; 70450-TC; 70551-TC; 71045-TC-FY; 72125-TC; 73630-TC-LT; 73630-TC-RT-FY; 75635-TC; 76000-TC-FY; 78315-TC; 80048; 80053; 82550; 82553; 82565; 82728; 82947; 82962; 83036; 83540; 83550; 83735; 84100; 84443; 84484; 84520; 85025; 85027; 85610; 85651; 86704; 86706; 86708; 86803; 86850; 86900; 86901; 86922; 87040; 87070; 87186; 87205; 87340; 88304-TC; 88307-TC; 88311-TC; 93005; 93010; 93880-TC; 93923; 93925-TC; 94760; 97161-GP; 99284-25; A9503; G0378; J0885; J1644; J7030; P9034; P9038; P9058

== ENCOUNTER 2018-06-03 19:59 | Inpatient (IN) | payer OTHER, MEDICARE ==
--- NOTE | 2018-06-03 20:19 | PDOC ---
History of Present Illness - General Stated Complaint: INJURY - History of Present Illness Initial Comments: Gonzalo Perea is a 72yo man with a PMH of ESRD on HD, diastolic CHF, CAD s/ p stents s/p CABG, HTN, HLD, chronic anemia, DM, and PAD, recently hospitalized with b/l heel wounds, who presents today because his family are concerned about the appearance of his left heel wound. 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 He was discharged to [facility] on 05/09/18. Per the discharge summary, he was supposed to have a wound vac on the left heel. However, his and children report that the vac was removed when he was discharged to [facility]. Initially, they were applying santyl to the wound. More recently, the family was told that he "didn't need santyl anymore" and the wound has been painted with betadine. When they asked about the wound vac, they were told that it "pulls skin off the wound" and would not be beneficial. Today, his family arrived to find that his heel was not wrapped or covered at all. They are frustrated and feel that his wound is getting worse rather than better over the past 3 weeks. They all report that it is larger than when he was discharged from the hospital, and they also note a wound on the top of his foot that was not present several days ago. Past History - Past Medical History Allergies/Adverse Reactions: Allergies Allergy/AdvReac Type Severity Reaction Status Date / Time acetaminophen [From Percocet] Allergy Mild Hives Verified 03/28/18 20:49 oxycodone [From Percocet] Allergy Mild Hives Verified 04/15/18 04:46 Home Medications: Ambulatory Orders Carvedilol [Coreg -] 12.5 mg PO BID #60 tablet 12/18/17 Tamsulosin HCl [Flomax -] 0.4 mg PO HS #30 cap.er.24h 12/18/17 Amlodipine Besylate 10 mg PO DAILY 02/17/18 Aspirin [Adult Aspirin] 81 mg PO DAILY 02/17/18 Atorvastatin Ca [Lipitor] 40 mg PO HS 02/17/18 Collagenase Clostridium Hist. [Santyl -] 1 applic TP DAILY 02/17/18 Divalproex [Depakote -] 125 mg PO BID 02/17/18 Docusate Sodium 300 mg PO HS 02/17/18 Folic Acid 1 mg PO DAILY 02/17/18 Insulin Glargine,Hum.rec.anlog [Lantus Solostar] 10 unit SQ HS 02/17/18 Calcium Acetate [Phoslo -] 667 mg PO TIDCM 03/28/18 Citalopram Hydrobromide [Celexa -] 20 mg PO DAILY 03/28/18 Clopidogrel Bisulfate [Plavix -] 75 mg PO DAILY 03/28/18 Dextran 70/Hypromellose/Pf [Artificial Tears Drops] 1 each OU BID PRN 03/28/18 Famotidine 20 mg PO DAILY 03/28/18 Insulin Lispro [Humalog] unit SQ BID 03/28/18 Vitamin B Complex [Balance B-50] 1 each PO DAILY 03/28/18 Zinc Oxide 20% Topical Oint 454 gm NR ASDIR 03/28/18 Gabapentin [Neurontin -] 100 mg PO BID #30 capsule 05/09/18 Haloperidol [Haldol -] 2 mg PO TID PRN #60 tablet 05/09/18 Quetiapine Fumarate [Seroquel -] 50 mg PO Q12H PRN #60 tablet 05/09/18 Anemia: Yes (taking iron) Asthma: No Cancer: No Cardiac Disorders: Yes (CAD, CABG, stents) CVA: No COPD: No CHF: No DVT: No Dementia: No Diabetes: Yes GI Disorders: Yes (GERD, G-I bleed) Disorders: Yes (BPH) HTN: Yes Hypercholesterolemia: Yes Liver Disease: No Psychiatric Problems: Yes Seizures: No Thyroid Disease: No - Surgical History Abdominal Surgery: Yes (Left Inguinal Hernia Repair) Appendectomy: No Cardiac Surgery: Yes (Bypass Surgery 18 yrs ago, Followed by Stents placement x2 ) Cholecystectomy: No Lung Surgery: No Neurologic Surgery: No Orthopedic Surgery: Yes (Laminectomy) - Immunization History Immunization Up to Date: Yes - Suicide/Smoking/Psychosocial Hx Smoking History: Unknown if ever smoked Have you smoked in the past 12 months: No If you are a former smoker, when did you quit?: 30YRS 'Breaking Loose' booklet given: 10/23/17 Hx Alcohol Use: No Drug/Substance Use Hx: No Substance Use Type: None Hx Substance Use Treatment: No Review of Systems - Review of Systems Comments:: Could not obtain. Patient repeats "that's enough" to all questions. *Physical Exam - Vital Signs Last Vital Signs Temp Pulse Resp BP Pulse Ox 97.7 F 70 18 140/74 95 06/03/18 20:01 06/03/18 20:01 06/03/18 20:01 06/03/18 20:01 06/03/18 20:01 - Physical Exam Comments: General: Comfortable, no acute distress HEENT: PERRL, EOMI. Dry mouth and lips. Teeth with jean-baptiste coating. Cards: RRR Pulm: Comfortable on room air, clear to auscultation bilaterally on anterior/ lateral exam Abd: Soft, nontender, nondistended Ext: s/p R BKA with clean kerlix dressing and knee immobilizer in place. LLE with thick, hard eschar on heel approximately 4-5cm in diameter. No surrounding erythema, edema, or drainage. Skin on plantar surface of left foot peeling, loose around edges of eschar. Dorsal surface of L foot with 1x2cm scabbed wound with surrounding erythema/irritation, no drainage. Skin: Pale, no rash, no bruising. Neuro: Awake. Not oriented, repeats several phrases only. CN grossly intact, speaks mix of Mongolian and [place]ese. Motor grossly symmetric Psych: Pleasant, uncooperative. Unclear that he knows where he is - possibly delirious; believes he is in a car. ED Treatment Course - LABORATORY CBC & Chemistry Diagram: 06/03/18 22:43 06/03/18 22:43 Medical Decision Making - Medical Decision Making Gonzalo Perea is a 72yo man with ESRD on HD, CHF, CAD s/p CABG, DM, HTN, HLD , chronic anemia, PAD. He was recently admitted to [facility] following a fall in April and underwent b/l heel debridement, LLE angio, RLE BKA during his admission. He was discharged to a SNF with instructions for a left heel wound vac, but he has not had vac treatment since discharge. He was brought to the ED by his family due to concern for worsening of the left heel wound and poor care at his SNF. - Left heel wound with hard, thick eschar but no obvious signs of infection - no purulence, no surrounding erythema or edema, no drainage - CBC and xray foot ordered to evaluate for underlying infection - CMP, CXR, EKG to rule out acute abnormalities and for possible admission - Pt appears dry. Will evaluate Cr prior to giving IVF as he has a history of CHF. UA and urine culture to r/o UTI as a cause of potential mild dehydration - Page to Dr Schofield regarding wound 06/03/18 22:52 - Spoke with Dr Schofield. Should come to wound care appointment on 06/05/18 - Discussed with family. They adamantly do not want him to return to the same prison and wish to speak to a licensed social worker or patient advocate. Informed the family that social work/case management is not available until morning. - Consider admission to obs pending lab results as patient has new skin breakdown and is not receiving the care noted in his discharge paperwork from the recent admission. 06/03/18 23:55 - Labs notable for potassium 2.9, glucose 243. Positive UA - Potassium 40mEq x2 doses PO and 20mEq IV ordered for repletion - Patient agitated. Takes haldol Q8hr PRN - Will admit to hospitalist service. Text sent via [employer]. Return call pending. Seen and discussed with Dr Harris. Ariana Quinn PGY1 *DC/Admit/Observation/Transfer Diagnosis at time of Disposition: Hypokalemia, Hyperglycemia, UTI (urinary tract infection) - Discharge Dispostion Decision to Admit order: Yes - Referrals - Patient Instructions - Post Discharge Activity
--- NOTE | 2018-06-03 22:06 | PDOC ---
Attending Attestation - HPI HPI: 06/03/18 22:24 The patient is a 72 year old male with a significant past medical history of HTN , IDDM, CABG, ESRD on MWF dialysis, diastolic CHF, CAD s/p stents s/p CABG, chronic anemia, PAD, who presents from [facility] today with family for evaluation of the patients wounds on his foot. The patient denies chest pain, shortness of breath, headache and dizziness. The patient denies fever, chills, nausea, vomit, diarrhea and constipation. The patient denies dysuria, frequency, urgency and hematuria. Allergies: acetaminophen. oxycodone. Past surgical history: R BKA on 05/03/18 PCP - Dr. Bernardo Del Valle - Physicial Exam PE: 06/03/18 23:03 GENERAL: Well-appearing, well-nourished. No apparent distress. HEENT: Normocephalic, atraumatic. PERRL, EOM intact. CARDIOVASCULAR: Normal S1, S2. Regular rate and rhythm. PULMONARY: Clear to auscultation bilaterally. ABDOMEN: Soft, non-distended, non-tender. EXTREMITIES: (+) left dorsal foot has 4cm area of skin breakdown. Entire heel is a large escar. Dry. Normal ROM in all four extremities. No gross deformities. SKIN: (+) See extremities. Warm, dry. No rash NEUROLOGICAL: No focal neurological deficits. - Medical Decision Making 06/03/18 22:26 Documentation prepared by Yenny Yates, acting as medical cost consultant for Kamille Harris MD <Yenny Yates - Last Filed: 06/03/18 23:03> - Resident Resident Name: Ariana Quinn - ED Attending Attestation I have performed the following: I have examined & evaluated the patient, The case was reviewed & discussed with the resident, I agree w/resident's findings & plan, Exceptions are as noted - HPI HPI: 06/03/18 22:04 72-year-old male brought in by ambulance from [facility] for evaluation. Dr. Augustin Schofield date amputation of his right leg and May 06. Upon discharge from the hospital. It was vague and the patient was to receive a wound VAC to his left heel. According to the family was never done in the [place] [facility] when the patient presents with a thick eschar on that foot and a new skin breakdown on the dorsal surface of the right foot - Medical Decision Making 06/03/18 23:55 72-year-old male from [facility] with past medical history of peripheral vascular disease, status post right BKA and May 06 of this year, end-stage renal disease, CHF, coronary artery disease, diabetes p/w large eschar to sole of left foot and healing surgical site from rt BKA Reviewing the patient's labs reveals a UTI, hypokalemia and hyperglycemia -pt to be admitted to hospitalist, consult w Dr Augustin Schofield <Kamille Harris - Last Filed: 06/03/18 23:57>
[2018-06-03 22:53] LABS: BASO % 0.9 % (0-2.0); EOS % 2.2 % (0-4.5); HEMATOCRIT 26.9 % (35.4-49); LYMPH % 12.5 % (8-40); MCH 30.1 pg (25.7-33.7); MCHC 33.4 g/dl (32.0-35.9); MEAN PLT VOLUME 6.2 fl (7.5-11.1); MONO % 8.7 % (3.8-10.2); NEUT % 75.7 % (42.8-82.8); PLATELET COUNT 336 K/MM3 (134-434); RBC 2.99 M/mm3 (4.00-5.60); RDW 18.3 % (11.9-15.9); WHITE BLOOD COUNT 8.7 K/mm3 (4.0-10.0)
[2018-06-03 23:18] LABS: URINE APPEARANCE CLOUDY; URINE BILIRUBIN NEGATIVE (<2.0 mg/dL); URINE COLOR AMBER; URINE GLUCOSE (UA) 1+ (NEGATIVE); URINE KETONE NEGATIVE (NEGATIVE); URINE LEUK ESTERASE TRACE (NEGATIVE); URINE NITRITE NEGATIVE (NEGATIVE); URINE PROTEIN 2+ (NEGATIVE); URINE UROBILINOGEN NEGATIVE mg/dL (0.2-1.0)
[2018-06-03 23:24] LABS: EPI CELLS RARE /HPF (FEW); URINE BACTERIA RARE /hpf (NONE SEEN); URINE HYALINE CAST 16 /lpf; URINE MUCUS RARE
[2018-06-03 23:49] LABS: ALBUMIN 2.5 g/dl (3.4-5.0); ALK PHOS 120 U/L (45-117); ANION GAP 8 MMOL/L (8-16); BILIRUBIN,TOTAL 0.3 mg/dL (0.2-1); BLOOD UREA NITROGEN 34 mg/dL (7-18); CALCIUM 8.3 mg/dL (8.5-10.1); CHLORIDE 98 mmol/L (98-107); CO2 31 mmol/L (21-32); CREATININE 3.4 mg/dL (0.55-1.3); GLUCOSE,RANDOM 243 mg/dL (74-106); SGOT/AST 21 U/L (15-37); SGPT/ALT 19 U/L (13-61); SODIUM 137 mmol/L (136-145); TOT PROT 7.4 g/dl (6.4-8.2)
[2018-06-03] MEDS ORDERED: HALOPERIDOL 2 MG TABLET PO ONE (23:49)
[2018-06-03 23:50] LABS: POTASSIUM 2.9 mmol/L (3.5-5.1)
[2018-06-04] MEDS ORDERED: KCL 10 MEQ IVPB 10 MEQ/100 ML INFUS.BAG IVPB ONE ×2 (00:07→00:09)
[2018-06-04] MEDS ORDERED: POTASSIUM CHLORIDE ORAL LIQUID 20 MEQ/15 ML ONE (00:07)
[2018-06-04] MEDS ORDERED: HALOPERIDOL 1 MG TABLET (FP) PO ONE ×2 (00:15→01:45)
[2018-06-04] MEDS ORDERED: CEFTRIAXONE 1,000 MG in DEXTROSE 5%-WATER - 50 ML IVPB ONE (00:57)
--- NOTE | 2018-06-04 01:34 | HP ---
Admitting History and Physical - Primary Care Physician PCP: Tierney Juárez - Admission Chief Complaint: Necrotic L Heel Wound, Poor healing Wounds to L- foot History of Present Illness: This is a 72 y/o man from [facility] with a past medical history Dementia, ESRD (HD- Mo,We,Fr), CHF, Stents, PVD, HTN, DM, s/p R-BKA (04/2018). Who was brought in by family for poor healing wounds to L- heel and L- dorsal aspect. Patient has Dementia unable to provide HPI. 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: Peripheral Neuropathy Cardiovascular: Yes: CAD, CHF, HTN, [place], Hyperlipdemia Gastrointestinal: Yes: Constipation, GI Bleed Renal/: Yes: Renal Inusuff, Hemodialysis (M/W/F), Neurogenic Bladder Heme/Onc: Yes: Anemia Psych: Yes: Bipolar Endocrine: Yes: Diabetes Mellitus - Past Surgical History Past Surgical History: Yes: AV Fistula/Graft, Bypass, CABG, Hernia Repair, Laminectomy, Stent - Smoking History Smoking history: Former smoker Have you smoked in the past 12 months: No If you are a former smoker, when did you quit?: 30YRS - Alcohol/Substance Use Hx Alcohol Use: No History of Substance Use: reports: None - Social History Usual Living Arrangement: Yes: Half-Way ADL: Support Services History of Recent Travel: No Home Medications - Allergies Allergies/Adverse Reactions: Allergies Allergy/AdvReac Type Severity Reaction Status Date / Time acetaminophen [From Percocet] Allergy Mild Hives Verified 03/28/18 20:49 oxycodone [From Percocet] Allergy Mild Hives Verified 04/15/18 04:46 - Home Medications Home Medications: Ambulatory Orders Carvedilol [Coreg -] 12.5 mg PO BID #60 tablet 12/18/17 Tamsulosin HCl [Flomax -] 0.4 mg PO HS #30 cap.er.24h 12/18/17 Amlodipine Besylate 10 mg PO DAILY 02/17/18 Aspirin [Adult Aspirin] 81 mg PO DAILY 02/17/18 Atorvastatin Ca [Lipitor] 40 mg PO HS 02/17/18 Collagenase Clostridium Hist. [Santyl -] 1 applic TP DAILY 02/17/18 Divalproex [Depakote -] 125 mg PO BID 02/17/18 Docusate Sodium 300 mg PO HS 02/17/18 Folic Acid 1 mg PO DAILY 02/17/18 Insulin Glargine,Hum.rec.anlog [Lantus Solostar] 10 unit SQ HS 02/17/18 Calcium Acetate [Phoslo -] 667 mg PO TIDCM 03/28/18 Citalopram Hydrobromide [Celexa -] 20 mg PO DAILY 03/28/18 Clopidogrel Bisulfate [Plavix -] 75 mg PO DAILY 03/28/18 Dextran 70/Hypromellose/Pf [Artificial Tears Drops] 1 each OU BID PRN 03/28/18 Famotidine 20 mg PO DAILY 03/28/18 Insulin Lispro [Humalog] unit SQ BID 03/28/18 Vitamin B Complex [Balance B-50] 1 each PO DAILY 03/28/18 Zinc Oxide 20% Topical Oint 454 gm NR ASDIR 03/28/18 Gabapentin [Neurontin -] 100 mg PO BID #30 capsule 05/09/18 Haloperidol [Haldol -] 2 mg PO TID PRN #60 tablet 05/09/18 Quetiapine Fumarate [Seroquel -] 50 mg PO Q12H PRN #60 tablet 05/09/18 Family Disease History - Family Disease History Family Disease History: [place]: Mother, Sister Review of Systems Unable to obtain ROS, reason: Dementia - Review of Systems Integumentary: reports: Wound (L- Heel pressure wound) Physical Examination Vital Signs: Vital Signs Temperature 97.7 F 06/03/18 20:01 Pulse Rate 70 06/03/18 20:01 Respiratory Rate 18 06/03/18 20:01 Blood Pressure 140/74 06/03/18 20:01 O2 Sat by Pulse Oximetry (%) 95 06/03/18 20:01 Constitutional: Yes: No Distress, Calm, Thin Eyes: Yes: Conjunctiva Clear, PERRL HENT: Yes: WNL, Atraumatic, Normocephalic Neck: Yes: WNL, Supple, Trachea Midline Cardiovascular: Yes: Regular Rate and Rhythm, S1, S2 Respiratory: Yes: Rhonchi (RUL) Gastrointestinal: Yes: WNL, Normal Bowel Sounds, Soft Renal/: Yes: Incontinence Breast(s): Yes: WNL Musculoskeletal: Yes: WNL Extremities: Yes: Amputation (R- AKA) Edema: No Peripheral Pulses WNL: Yes (DTP +1 to left foot, R- BKA) Integumentary: Yes: Erythema, Pressure Ulcer (necrotic L- Heel), Other (Wound to L- dorsal aspect) Neurological: Yes: Alert, Confusion, Cran Nerves II-XII Intact ...Motor Strength: LUE, LLE, RUE Psychiatric: Yes: Alert (x name and family only) Labs: CBC, BMP 06/03/18 22:43 06/03/18 22:43 Laboratory Results - last 24 hr 06/03/18 06/03/18 06/03/18 22:43 22:43 22:57 WBC 8.7 RBC 2.99 L Hgb 9.0 L Hct 26.9 L MCV 90.0 MCH 30.1 MCHC 33.4 RDW 18.3 H Plt Count 336 D MPV 6.2 L Absolute Neuts (auto) 6.6 Neutrophils % 75.7 Lymphocytes % 12.5 D Monocytes % 8.7 Eosinophils % 2.2 Basophils % 0.9 Nucleated RBC % 0 Sodium 137 Potassium 2.9 L* Chloride 98 Carbon Dioxide 31 Anion Gap 8 BUN 34 H Creatinine 3.4 H Creat Clearance w eGFR 17.89 Random Glucose 243 H Calcium 8.3 L Total Bilirubin 0.3 AST 21 ALT 19 Alkaline Phosphatase 120 H Total Protein 7.4 Albumin 2.5 L Urine Color Renea Urine Appearance Cloudy Urine pH 5.0 Ur Specific [place] 1.015 Urine Protein 2+ H Urine Glucose (UA) 1+ H Urine Ketones Negative Urine Blood Negative Urine Nitrite Negative Urine Bilirubin Negative Urine Urobilinogen Negative Ur Leukocyte Esterase Trace Urine WBC (Auto) 57 Urine RBC (Auto) 17 Ur Epithelial Cells Rare Urine Bacteria Rare Hyaline Casts 16 Urine Mucus Rare Intake & Output 06/01/18 06/02/18 06/03/18 06/04/18 23:59 23:59 23:59 23:59 Weight 57 kg Current Medications Generic Name Dose Route Start Last Admin Trade Name Freq PRN Reason Stop Dose Admin Amlodipine Besylate 10 mg 06/04/18 10:00 Norvasc - PO DAILY [facility] Aspirin 81 mg 06/04/18 10:00 Ecotrin - PO DAILY [facility] Atorvastatin Calcium 40 mg 06/04/18 22:00 Lipitor - PO HS ROSIE Calcium Acetate 667 mg 06/04/18 08:00 Phoslo - PO TIDCM [facility] Carvedilol 12.5 mg 06/04/18 10:00 Coreg - PO BID [facility] Citalopram Hydrobromide 20 mg 06/04/18 10:00 Celexa - PO DAILY [facility] Clopidogrel Bisulfate 75 mg 06/04/18 10:00 Plavix - PO DAILY [facility] Collagenase 1 applic 06/04/18 10:00 Santyl - TP DAILY [facility] Protocol Divalproex Sodium 125 mg 06/04/18 10:00 Depakote - PO BID [facility] Docusate Sodium 300 mg 06/04/18 22:00 Colace - PO HS [facility] Folic Acid 1 mg 06/04/18 10:00 Folic Acid - PO DAILY [facility] Heparin Sodium (Porcine) 5,000 unit 06/04/18 10:00 Heparin - SQ BID [facility] Non-Formulary Medication 1 drop 06/04/18 02:15 Dextran 70/Hypromellose/Pf [Artificial Tears Drops] OU BID PRN DRY EYES Non-Formulary Medication 20 mg 06/04/18 10:00 Famotidine [Famotidine] PO DAILY [facility] Non-Formulary Medication 10 unit 06/04/18 22:00 Insulin Glargine,Hum.Rec.Anlog [Lantus Solostar] SQ HS [facility] Non-Formulary Medication 1 tab 06/04/18 10:00 Vitamin B Complex [Balance B-50] PO DAILY [facility] Non-Formulary Medication 454 gm 06/04/18 02:15 Zinc Oxide 20% Topical Oint NR ASDIR [facility] Quetiapine Fumarate 12.5 mg 06/04/18 10:00 Seroquel - PO BID [facility] Tamsulosin HCl 0.4 mg 06/04/18 22:00 Flomax - PO HS [facility] Imaging - Results Chest X-ray: Image Reviewed EKG: Image Reviewed (NSR, LVH cannot ruleout Septal Infarct, age undetermined) Problem List - Problems (1) Decubitus ulcer, heel Code(s): L89.609 - PRESSURE ULCER OF UNSPECIFIED HEEL, UNSPECIFIED STAGE (2) Hyperglycemia Code(s): R73.9 - HYPERGLYCEMIA, UNSPECIFIED (3) Eschar of heel Code(s): R23.4 - CHANGES IN SKIN TEXTURE (4) ESRD (end stage renal disease) on dialysis Code(s): N18.6 - END STAGE RENAL DISEASE; Z99.2 - DEPENDENCE ON RENAL DIALYSIS (5) Hypokalemia Code(s): E87.6 - HYPOKALEMIA (6) Anemia Code(s): D64.9 - ANEMIA, UNSPECIFIED (7) CAD (coronary artery disease) Code(s): I25.10 - ATHSCL HEART DISEASE OF [place] CORONARY ARTERY W/O ANG PCTRS Qualifiers: Coronary Disease-Associated Artery/Lesion type: [place] artery [place] vs. transplanted heart: [place] heart Associated angina: without angina Qualified Code(s): I25.10 - Atherosclerotic heart disease of [place] coronary artery without angina pectoris (8) S/P BKA (below knee amputation) Code(s): Z89.519 - ACQUIRED ABSENCE OF UNSPECIFIED LEG BELOW KNEE (9) HTN (hypertension) Code(s): I10 - ESSENTIAL (PRIMARY) HYPERTENSION Qualifiers: Hypertension type: essential hypertension Qualified Code(s): I10 - Essential (primary) hypertension (10) Hx of CABG Code(s): Z95.1 - PRESENCE OF AORTOCORONARY BYPASS GRAFT (11) Hypercholesterolemia Code(s): E78.00 - PURE HYPERCHOLESTEROLEMIA, UNSPECIFIED (12) Neurogenic bladder Code(s): N31.9 - NEUROMUSCULAR DYSFUNCTION OF [place], UNSPECIFIED (13) Functional quadriplegia Code(s): R53.2 - FUNCTIONAL QUADRIPLEGIA Assessment/Plan 72 y/o man PMHx of ESRD (Mo,We,Fr), CHF, CAD s/p Stents, PVD, HTN, DM, BKA (2017). Admitted for L- Heel Necrotic Pressure Ulcer, Non Pressure Wounds to L- foot, Hypokalemia, Hyperglycemia for further evaluation of their emergent condition. Plan: Will admit to M/S Appreciate Vascular consult- necrotic L-heel, non-pressure vascular ulcers Appreciate Nephrology consult- for HD Management Wound Care Nurse Appreciate Case Management consult- family request to place pt in another SNF Hypokalemia- likely secondary to ESRD vs Dehydration, repleted in ED with KCL and K-riders, repeat BMP in am and treat accordingly EKG- reviewed NSR with LVH, cannot rule out septal infarct age undetermined, when compared to prior study 03/28/18 no change Hyperglycemia- BGMs, continue home meds, monitor renal function Continue home medications Fall precautions Functional Quadriplegia- Complete immobility due to frailty, end-stage Dementia , Requires total care, Turn Q2h, Irma lift as needed, heel protectors for L- foot, FEN- fluid restriction 1200ml, Repleted lytes with K-riders, Soft Diabetic Diet DVT/PPI ppx- Heparin SQ, PPI Code Status: Full Code Dispo: Requires Inpatient Care Visit type - Emergency Visit Emergency Visit: Yes ED Registration Date: 06/04/18 Care time: The patient presented to the Emergency Department on the above date and was hospitalized for further evaluation of their emergent condition. - New Patient This patient is new to me today: Yes Date on this admission: 06/04/18 - Critical Care Critical Care patient: No
[2018-06-04] MEDS: KCL 10 MEQ IVPB 10 MEQ/100 ML INFUS.BAG IVPB SCH ×2 (01:36→02:41)
[2018-06-04] MEDS: POTASSIUM CHLORIDE ORAL LIQUID 20 MEQ/15 ML PO SCH ×2 (01:36→02:41)
[2018-06-04] MEDS ORDERED: ARTIFICIAL TEARS (POLYVINYL ALCOHOL) OPTH DROPS OU PRN (02:15)
[2018-06-04] MEDS ORDERED: PATIENT'S OWN MEDICATION (NON-FORMULARY) (Zinc Oxide 20% Topical Oint 454 GM) NR SCH (02:15)
[2018-06-04] MEDS ORDERED: CEFTRIAXONE 1 GM/50 ML BAG ONE (02:46)
[2018-06-04 06:03] LABS: BASO % 1.1 % (0-2.0); EOS % 1.9 % (0-4.5); HEMATOCRIT 27.9 % (35.4-49); HEMOGLOBIN 9.3 GM/dL (11.7-16.9); LYMPH % 10.6 % (8-40); MCHC 33.3 g/dl (32.0-35.9); MEAN CELL VOLUME 90.1 fl (80-96); MEAN PLT VOLUME 6.3 fl (7.5-11.1); MONO % 9.8 % (3.8-10.2); NEUT % 76.6 % (42.8-82.8); PLATELET COUNT 323 K/MM3 (134-434); RDW 17.9 % (11.9-15.9); WHITE BLOOD COUNT 9.6 K/mm3 (4.0-10.0)
[2018-06-04 06:25] LABS: ANION GAP 7 MMOL/L (8-16); BLOOD UREA NITROGEN 44 mg/dL (7-18); CALCIUM 8.3 mg/dL (8.5-10.1); CHLORIDE 100 mmol/L (98-107); CO2 29 mmol/L (21-32); CREATININE 3.9 mg/dL (0.55-1.3); GLUCOSE,RANDOM 216 mg/dL (74-106); PHOSPHOROUS 1.9 mg/dL (2.5-4.9); POTASSIUM 3.6 mmol/L (3.5-5.1); SODIUM 137 mmol/L (136-145)
[2018-06-04] MEDS: CITALOPRAM HYDROBROMIDE 20 MG TABLET (FP) PO SCH (10:54)
[2018-06-04] MEDS: QUEtiapine FUMARATE 25 MG TABLET (FP) PO SCH ×2 (10:55→21:04)
[2018-06-04] MEDS: CLOPIDOGREL BISULFATE 75 MG TABLET (FP) PO SCH (10:55)
[2018-06-04] MEDS: CARVEDILOL 12.5 MG TABLET (FP) PO SCH ×2 (10:55→21:03)
[2018-06-04] MEDS: RANITIDINE HCL 150 MG TABLET (FP) PO SCH (10:55)
[2018-06-04] MEDS: FOLIC ACID 1 MG TABLET (FP) PO SCH (10:55)
[2018-06-04] MEDS: ASPIRIN COATED 81 MG TABLET.EC PO SCH (10:55)
[2018-06-04] MEDS: amLODIPine BESYLATE 10 MG TABLET (FP) PO SCH (10:56)
[2018-06-04] MEDS: VITAMIN B COMPLEX W/C COMBO TABLET (FP) PO SCH (10:56)
[2018-06-04] MEDS: HEPARIN NA (PORCINE) 5,000 UNITS/ML 1ML VIAL SQ SCH ×2 (10:56→21:03)
[2018-06-04] MEDS: COLLAGENASE CLOSTRIDIUM HIST. 30 GRAMS TUBE TP SCH (10:57)
[2018-06-04] MEDS: ZINC OXIDE 20% TOPICAL OINTMENT 454 GM JAR TP SCH (10:58)
[2018-06-04] MEDS: CALCIUM ACETATE 667 MG CAPSULE (FP) PO SCH ×3 (10:59→17:25)
--- NOTE | 2018-06-04 11:21 | CONSULT ---
<Jered Melara - Last Filed: 06/04/18 12:07> - Consultation REQUESTING PROVIDER: CONSULT REQUEST: We have been asked to surgically evaluate this patient for Left heel ulcer. PCP:Tierney Juárez HISTORY OF PRESENT ILLNESS: 72 y/o man from [facility] with PMHx Dementia, ESRD (HD- Mo,We,Fr), CHF, Stents, PVD, HTN, DM, s/p R-BKA (Dr Schofield, 05/03/2018). Pt had prolonged admission 03/28-05/09 for evaluation of falls from [place]. Now re-admitted for poor healing wounds to L heel. Information obtained from EMR, pt with dementia. History Source: Medical Record, Transfer Record PMHx: as stated above PSHx: AV Fistula/Graft, LE Bypass, CABG, Hernia Repair, Laminectomy, Stent Home Medications Medication Instructions Recorded Carvedilol [Coreg -] 12.5 mg PO BID #60 tablet 12/18/17 Tamsulosin HCl [Flomax -] 0.4 mg PO HS #30 cap.er.24h 12/18/17 Amlodipine Besylate 10 mg PO DAILY 02/17/18 Aspirin [Adult Aspirin] 81 mg PO DAILY 02/17/18 Atorvastatin Ca [Lipitor] 40 mg PO HS 02/17/18 Collagenase Clostridium Hist. 1 applic TP DAILY 02/17/18 [Santyl -] Divalproex [Depakote -] 125 mg PO BID 02/17/18 Docusate Sodium 300 mg PO HS 02/17/18 Folic Acid 1 mg PO DAILY 02/17/18 Insulin Glargine,Hum.rec.anlog 10 unit SQ HS 02/17/18 [Lantus Solostar] Calcium Acetate [Phoslo -] 667 mg PO TIDCM 03/28/18 Citalopram Hydrobromide [Celexa -] 20 mg PO DAILY 03/28/18 Clopidogrel Bisulfate [Plavix -] 75 mg PO DAILY 03/28/18 Dextran 70/Hypromellose/Pf 1 each OU BID PRN 03/28/18 [Artificial Tears Drops] Famotidine 20 mg PO DAILY 03/28/18 Insulin Lispro [Humalog] unit SQ BID 03/28/18 Vitamin B Complex [Balance B-50] 1 each PO DAILY 03/28/18 Zinc Oxide 20% Topical Oint 454 gm NR ASDIR 03/28/18 Gabapentin [Neurontin -] 100 mg PO BID #30 capsule 05/09/18 Haloperidol [Haldol -] 2 mg PO TID PRN #60 tablet 05/09/18 Quetiapine Fumarate [Seroquel -] 50 mg PO Q12H PRN #60 tablet 05/09/18 Allergies Allergy/AdvReac Type Severity Reaction Status Date / Time acetaminophen [From Percocet] Allergy Mild Hives Verified 03/28/18 20:49 oxycodone [From Percocet] Allergy Mild Hives Verified 04/15/18 04:46 REVIEW OF SYSTEMS: Pt with dementia, unable to obtain ROS PHYSICAL EXAM: GENERAL: Awake, alert, in no acute distress. Sitting in bed reports seeing man coming out of the wall. HEAD: Normal with no signs of trauma. LOWER EXTREMITIES: R BKA stump slightly contracted (Knee immobilizer in place) . BKA incision with milind intact, some scabbing noted at incision site. No dehiscence, no drainage noted from incision site. No erythema. L heel with large stable eschar (completely intact) over entire calcaneous. Some skin desquamation proximally. Skin tear/skin sloughing noted over proximal portion of L foot, no erythema or drainage. No other ulcers noted. Vital Signs Temperature 97.8 F 06/04/18 08:42 Pulse Rate 66 06/04/18 08:42 Respiratory Rate 17 06/04/18 08:42 Blood Pressure 121/55 L 06/04/18 08:42 O2 Sat by Pulse Oximetry (%) 99 06/04/18 07:52 Lab Results WBC 9.6 K/mm3 (4.0-10.0) 06/04/18 05:25 RBC 3.10 M/mm3 (4.00-5.60) L 06/04/18 05:25 Hgb 9.3 GM/dL (11.7-16.9) L 06/04/18 05:25 Hct 27.9 % (35.4-49) L 06/04/18 05:25 MCV 90.1 fl (80-96) 06/04/18 05:25 MCHC 33.3 g/dl (32.0-35.9) 06/04/18 05:25 RDW 17.9 % (11.9-15.9) H 06/04/18 05:25 Plt Count 323 K/MM3 (134-434) 06/04/18 05:25 Sodium 137 mmol/L (136-145) 06/04/18 05:25 Potassium 3.6 mmol/L (3.5-5.1) 06/04/18 05:25 Chloride 100 mmol/L (98-107) 06/04/18 05:25 Carbon Dioxide 29 mmol/L (21-32) 06/04/18 05:25 Anion Gap 7 MMOL/L (8-16) L 06/04/18 05:25 BUN 44 mg/dL (7-18) H 06/04/18 05:25 Creatinine 3.9 mg/dL (0.55-1.3) H 06/04/18 05:25 Random Glucose 216 mg/dL (74-106) H 06/04/18 05:25 Calcium 8.3 mg/dL (8.5-10.1) L 06/04/18 05:25 A/P: 72 y/o man from [facility] with PMHx Dementia, ESRD (HD- Mo,We,Fr ), CHF, Stents, PVD, HTN, DM, s/p R-BKA (Dr Schofield, 05/03/2018), now re- admitted for poor healing wounds to L heel. Afebrile, no leukocytosis. L heel with large stable eschar. No erythema or drainage noted. Milind removed from R BKA incision site. -[place] L heel with Betadine daily, cover with 4x4/kerlix -Offloading to L heel at all times -Remainder of care per primary team above d/w attending Dr Schofield <Augustin Schofield - Last Filed: 06/06/18 08:56> - Consultation REQUESTING PROVIDER: CONSULT REQUEST: We have been asked to surgically evaluate this patient for ( specify). PCP:Tierney Juárez HISTORY OF PRESENT ILLNESS: PMHx: PSHx: Home Medications Medication Instructions Recorded Carvedilol [Coreg -] 12.5 mg PO BID #60 tablet 12/18/17 Tamsulosin HCl [Flomax -] 0.4 mg PO HS #30 cap.er.24h 12/18/17 Amlodipine Besylate 10 mg PO DAILY 07/15/18 Aspirin [Adult Aspirin] 81 mg PO DAILY 02/17/18 Atorvastatin Ca [Lipitor] 40 mg PO HS 02/17/18 Collagenase Clostridium Hist. 1 applic TP DAILY 02/17/18 [Santyl -] Divalproex [Depakote -] 125 mg PO BID 02/17/18 Docusate Sodium 300 mg PO HS 02/17/18 Folic Acid 1 mg PO DAILY 02/17/18 Insulin Glargine,Hum.rec.anlog 10 unit SQ HS 02/17/18 [Lantus Solostar] Calcium Acetate [Phoslo -] 667 mg PO TIDCM 03/28/18 Citalopram Hydrobromide [Celexa -] 20 mg PO DAILY 03/28/18 Clopidogrel Bisulfate [Plavix -] 75 mg PO DAILY 03/28/18 Dextran 70/Hypromellose/Pf 1 each OU BID PRN 03/28/18 [Artificial Tears Drops] Famotidine 20 mg PO DAILY 03/28/18 Insulin Lispro [Humalog Kwikpen unit SQ BID 03/28/18 U-100] Vitamin B Complex [Balance B-50] 1 each PO DAILY 03/28/18 Zinc Oxide 20% Topical Oint 454 gm NR ASDIR 03/28/18 Gabapentin [Neurontin -] 100 mg PO BID #30 capsule 05/09/18 Haloperidol [Haldol -] 2 mg PO TID PRN #60 tablet 05/09/18 Quetiapine Fumarate [Seroquel -] 50 mg PO Q12H PRN #60 tablet 05/09/18 Allergies Allergy/AdvReac Type Severity Reaction Status Date / Time acetaminophen [From Percocet] Allergy Mild Hives Verified 03/28/18 20:49 oxycodone [From Percocet] Allergy Mild Hives Verified 04/15/18 04:46 REVIEW OF SYSTEMS: CONSTITUTIONAL: Absent: fever, chills, diaphoresis, generalized weakness, malaise, loss of appetite, weight change CARDIOVASCULAR: Absent: chest pain, syncope, palpitations, irregular heart rate, lightheadedness , peripheral edema RESPIRATORY: Absent: cough, shortness of breath, dyspnea with exertion, wheezing, stridor, hemoptysis GASTROINTESTINAL: Absent: abdominal pain, abdominal distension, nausea, vomiting, diarrhea, constipation, melena, hematochezia GENITOURINARY: Absent: dysuria, frequency, urgency, hesitancy, hematuria, flank pain, genital pain MUSCULOSKELETAL: Absent: myalgia, arthralgia, joint swelling, back pain, neck pain SKIN: Absent: rash, itching, pallor HEMATOLOGIC/IMMUNOLOGIC: Absent: easy bleeding, easy bruising, lymphadenopathy NEUROLOGIC: Absent: headache, focal weakness, paresthesias, dizziness, unsteady gait, seizure, mental status changes, bladder or bowel incontinence PSYCHIATRIC: Absent: anxiety, depression, suicidal or homicidal ideation, hallucinations. PHYSICAL EXAM: GENERAL: Awake, alert, and fully oriented, in no acute distress. HEAD: Normal with no signs of trauma. EYES: PERRL, sclera anicteric, conjunctiva clear. NECK: Normal ROM, supple without lymphadenopathy, JVD, or masses. LUNGS: Clear to auscultation bilat anteriorly. No wheezes, and no crackles. No accessory muscle use. HEART: Regular rate and rhythm. No murmurs ABDOMEN: Soft, nontender, not distended, normoactive bowel sounds, no guarding, no rebound, no masses. No organomegaly. MUSCULOSKELETAL: Normal ROM at all joints. No bony deformities or tenderness. No CVA tenderness. UPPER EXTREMITIES: 2+ pulses, warm, well-perfused. No cyanosis. Cap refill <2 seconds. No peripheral edema. LOWER EXTREMITIES: 2+ pulses, warm, well-perfused. No calf tenderness. No peripheral edema. NEUROLOGICAL: Normal speech, gait not observed. PSYCH: Cooperative. Good eye contact. Appropriate mood and affect. SKIN: Warm, dry, normal turgor, no rashes or lesions noted. Vital Signs Temperature 97.7 F 06/05/18 14:32 Pulse Rate 62 06/05/18 14:32 Respiratory Rate 20 06/05/18 14:32 Blood Pressure 145/58 L 06/05/18 14:32 O2 Sat by Pulse Oximetry (%) 96 06/05/18 09:00 Lab Results WBC 9.0 K/mm3 (4.0-10.0) 06/05/18 10:20 RBC 2.87 M/mm3 (4.00-5.60) L 06/05/18 10:20 Hgb 8.8 GM/dL (11.7-16.9) L 06/05/18 10:20 Hct 26.0 % (35.4-49) L 06/05/18 10:20 MCV 90.4 fl (80-96) 06/05/18 10:20 MCHC 33.8 g/dl (32.0-35.9) 06/05/18 10:20 RDW 18.3 % (11.9-15.9) H 06/05/18 10:20 Plt Count 321 K/MM3 (134-434) 06/05/18 10:20 Sodium 139 mmol/L (136-145) 06/05/18 10:20 Potassium 3.7 mmol/L (3.5-5.1) 06/05/18 10:20 Chloride 101 mmol/L (98-107) 06/05/18 10:20 Carbon Dioxide 24 mmol/L (21-32) 06/05/18 10:20 Anion Gap 13 MMOL/L (8-16) 06/05/18 10:20 BUN 12 mg/dL (7-18) 06/05/18 12:00 Creatinine 1.2 mg/dL (0.55-1.3) 06/05/18 12:00 Random Glucose 141 mg/dL (74-106) H 06/05/18 10:20 Calcium 8.2 mg/dL (8.5-10.1) L 06/05/18 10:20 Recent right BKA. LEft heel necrotic wound debrided following tibial revascularization. VAC dressing was started but not continued at SNF despite request on transfer and family requests. Heel now necrotic again and is probably not salvageable due to bone involvement. We will continue local care for now. I will speak to patient about options for future care.
--- NOTE | 2018-06-04 11:45 | PN ---
Progress Note (short form) - Note Progress Note: Events noted No complaints of pain no SOB Vital Signs - 24 hr 06/03/18 06/03/18 06/04/18 20:01 23:09 04:42 Temperature 97.7 F 98.2 F 98.1 F Pulse Rate 70 Pulse Rate [ 67 71 Apical] Respiratory 18 18 18 Rate Blood Pressure 140/74 Blood Pressure 133/58 L 138/80 [Right Arm] O2 Sat by Pulse 95 98 98 Oximetry (%) 06/04/18 06/04/18 07:52 08:42 Temperature 98.8 F 97.8 F Pulse Rate 66 Pulse Rate [ 69 Apical] Respiratory 18 17 Rate Blood Pressure 121/55 L Blood Pressure 151/76 [Right Arm] O2 Sat by Pulse 99 Oximetry (%) Current Medications Generic Name Dose Route Start Last Admin Trade Name Freq PRN Reason Stop Dose Admin Amlodipine Besylate 10 mg 06/04/18 10:00 06/04/18 10:56 Norvasc - PO 10 mg DAILY ROSIE Administration Artificial Tears 1 drop 06/04/18 02:15 Artificial Tears OU BID PRN DRY EYES Aspirin 81 mg 06/04/18 10:00 06/04/18 10:55 Ecotrin - PO 81 mg DAILY ROSIE Administration Atorvastatin Calcium 40 mg 06/04/18 22:00 Lipitor - PO HS [facility] Calcium Acetate 667 mg 06/04/18 08:00 06/04/18 10:59 Phoslo - PO Not Given TIDCM ROSIE Carvedilol 12.5 mg 06/04/18 10:00 06/04/18 10:55 Coreg - PO 12.5 mg BID ROSIE Administration Citalopram Hydrobromide 20 mg 06/04/18 10:00 06/04/18 10:54 Celexa - PO 20 mg DAILY ROSIE Administration Clopidogrel Bisulfate 75 mg 06/04/18 10:00 06/04/18 10:55 Plavix - PO 75 mg DAILY ROSIE Administration Collagenase 1 applic 06/04/18 10:00 06/04/18 10:57 Santyl - TP 1 applic DAILY ROSIE Administration Protocol Divalproex Sodium 125 mg 06/04/18 10:00 Depakote - PO BID ROSIE Docusate Sodium 300 mg 06/04/18 22:00 Colace - PO HS ROSIE Folic Acid 1 mg 06/04/18 10:00 06/04/18 10:55 Folic Acid - PO 1 mg DAILY [facility] Administration Heparin Sodium (Porcine) 5,000 unit 06/04/18 10:00 06/04/18 10:56 Heparin - SQ 5,000 unit BID [facility] Administration Insulin Detemir 10 units 06/04/18 22:00 Levemir Vial SQ HS [facility] Multi-Ingredient Ointment 454 gm 06/04/18 10:07 06/04/18 10:58 Zinc Oxide 20% Topical Oint TP 1 applic ASDIR [facility] Administration Multivitamins 1 each 06/04/18 10:00 06/04/18 10:56 Total B With C - PO 1 each DAILY ROSIE Administration Quetiapine Fumarate 12.5 mg 06/04/18 10:00 06/04/18 10:55 Seroquel - PO 12.5 mg BID ROSIE Administration Ranitidine HCl 150 mg 06/04/18 10:00 06/04/18 10:55 Zantac - PO 150 mg DAILY ROSIE Administration Tamsulosin HCl 0.4 mg 06/04/18 22:00 Flomax - PO HS [facility] Laboratory Results - last 24 hr 06/03/18 06/03/18 06/03/18 22:43 22:43 22:57 WBC 8.7 RBC 2.99 L Hgb 9.0 L Hct 26.9 L MCV 90.0 MCH 30.1 MCHC 33.4 RDW 18.3 H Plt Count 336 D MPV 6.2 L Absolute Neuts (auto) 6.6 Neutrophils % 75.7 Lymphocytes % 12.5 D Monocytes % 8.7 Eosinophils % 2.2 Basophils % 0.9 Nucleated RBC % 0 Sodium 137 Potassium 2.9 L* Chloride 98 Carbon Dioxide 31 Anion Gap 8 BUN 34 H Creatinine 3.4 H Creat Clearance w eGFR 17.89 Random Glucose 243 H Calcium 8.3 L Phosphorus Magnesium Total Bilirubin 0.3 AST 21 ALT 19 Alkaline Phosphatase 120 H Total Protein 7.4 Albumin 2.5 L Urine Color Renea Urine Appearance Cloudy Urine pH 5.0 Ur Specific [place] 1.015 Urine Protein 2+ H Urine Glucose (UA) 1+ H Urine Ketones Negative Urine Blood Negative Urine Nitrite Negative Urine Bilirubin Negative Urine Urobilinogen Negative Ur Leukocyte Esterase Trace Urine WBC (Auto) 57 Urine RBC (Auto) 17 Ur Epithelial Cells Rare Urine Bacteria Rare Hyaline Casts 16 Urine Mucus Rare 06/04/18 06/04/18 05:25 05:25 WBC 9.6 RBC 3.10 L Hgb 9.3 L Hct 27.9 L MCV 90.1 MCH 30.0 MCHC 33.3 RDW 17.9 H Plt Count 323 MPV 6.3 L Absolute Neuts (auto) 7.4 Neutrophils % 76.6 Lymphocytes % 10.6 Monocytes % 9.8 Eosinophils % 1.9 Basophils % 1.1 Nucleated RBC % 0 Sodium 137 Potassium 3.6 Chloride 100 Carbon Dioxide 29 Anion Gap 7 L BUN 44 H Creatinine 3.9 H Creat Clearance w eGFR 15.27 Random Glucose 216 H Calcium 8.3 L Phosphorus 1.9 L Magnesium 2.0 Total Bilirubin AST ALT Alkaline Phosphatase Total Protein Albumin Urine Color Urine Appearance Urine pH Ur Specific [place] Urine Protein Urine Glucose (UA) Urine Ketones Urine Blood Urine Nitrite Urine Bilirubin Urine Urobilinogen Ur Leukocyte Esterase Urine WBC (Auto) Urine RBC (Auto) Ur Epithelial Cells Urine Bacteria Hyaline Casts Urine Mucus S1 S2 RRR Lungs decreased Abd- soft, NT Rt BKA- stump wound is clean - no signs of infection Left foot-- dorsum skin tear + Left heel-- necrotic+ Functional quadriplegia ESRD On HD PAD S/p rt BKA left heel wound DM-1 dementia PLAN foot wound Vascular eval may need debridement pain control HD per renal
--- NOTE | 2018-06-04 13:24 | CONSULT ---
Consult Consult Specialty:: Nephrology Reason for Consultation:: ESRD - History of Present Illness Chief Complaint: left heel ulcer History of Present Illness: Pt is a 72 year old male with pmhx of ESRD, anemia, CHF, dementia, PVD, right bka, CABG, HTN, HLD and DM who was brought to the ER for left heel wound that has been getting worse. He has history of PVD and had a right BKA. He is awake but confused. He last went to HD yesterday. He denies shortness of breath. He is accompanies by his who assisted with history. - Past Medical History [employer]: Yes: Peripheral Neuropathy Cardio/Vascular: Yes: CAD, CHF, HTN, GA, Hyperlipdemia Gastrointestinal: Yes: Constipation, GI Bleed Renal/: Yes: Renal Inusuff, Hemodialysis (M/W/F), Neurogenic Bladder Psych: Yes: Bipolar Endocrine: Yes: Diabetes Mellitus - Past Surgical History Past Surgical History: Yes: AV Fistula/Graft, Bypass, CABG, Hernia Repair, Laminectomy, Stent - Alcohol/Substance Use Hx Alcohol Use: No History of Substance Use: reports: None - Smoking History Smoking history: Former smoker Have you smoked in the past 12 months: No If you are a former smoker, when did you quit?: 30YRS - Social History Usual Living Arrangement: Snf ADL: Support Services History of Recent Travel: No Home Medications - Allergies Allergies/Adverse Reactions: Allergies Allergy/AdvReac Type Severity Reaction Status Date / Time acetaminophen [From Percocet] Allergy Mild Hives Verified 03/28/18 20:49 oxycodone [From Percocet] Allergy Mild Hives Verified 04/15/18 04:46 - Home Medications Home Medications: Ambulatory Orders Carvedilol [Coreg -] 12.5 mg PO BID #60 tablet 12/18/17 Tamsulosin HCl [Flomax -] 0.4 mg PO HS #30 cap.er.24h 12/18/17 Amlodipine Besylate 10 mg PO DAILY 02/17/18 Aspirin [Adult Aspirin] 81 mg PO DAILY 02/17/18 Atorvastatin Ca [Lipitor] 40 mg PO HS 02/17/18 Collagenase Clostridium Hist. [Santyl -] 1 applic TP DAILY 02/17/18 Divalproex [Depakote -] 125 mg PO BID 02/17/18 Docusate Sodium 300 mg PO HS 02/17/18 Folic Acid 1 mg PO DAILY 02/17/18 Insulin Glargine,Hum.rec.anlog [Lantus Solostar] 10 unit SQ HS 02/17/18 Calcium Acetate [Phoslo -] 667 mg PO TIDCM 03/28/18 Citalopram Hydrobromide [Celexa -] 20 mg PO DAILY 03/28/18 Clopidogrel Bisulfate [Plavix -] 75 mg PO DAILY 03/28/18 Dextran 70/Hypromellose/Pf [Artificial Tears Drops] 1 each OU BID PRN 03/28/18 Famotidine 20 mg PO DAILY 03/28/18 Insulin Lispro [Humalog] unit SQ BID 03/28/18 Vitamin B Complex [Balance B-50] 1 each PO DAILY 03/28/18 Zinc Oxide 20% Topical Oint 454 gm NR ASDIR 03/28/18 Gabapentin [Neurontin -] 100 mg PO BID #30 capsule 05/09/18 Haloperidol [Haldol -] 2 mg PO TID PRN #60 tablet 05/09/18 Quetiapine Fumarate [Seroquel -] 50 mg PO Q12H PRN #60 tablet 05/09/18 Family Disease History - Family Disease History Family Disease History: CA: Mother, Sister Review of Systems Unable to obtain ROS, reason: pt with dementia - Review of Systems Constitutional: reports: No Symptoms Eyes: reports: No Symptoms HENT: reports: No Symptoms Neck: reports: No Symptoms Cardiovascular: reports: No Symptoms Gastrointestinal: reports: No Symptoms Genitourinary: reports: No Symptoms Endocrine: reports: No Symptoms Psychiatric: reports: No Symptoms Physical Exam Vital Signs: Vital Signs Temperature 97.8 F 06/04/18 08:42 Pulse Rate 66 06/04/18 08:42 Respiratory Rate 17 06/04/18 08:42 Blood Pressure 121/55 L 06/04/18 08:42 O2 Sat by Pulse Oximetry (%) 99 06/04/18 07:52 Constitutional: Yes: Calm Eyes: Yes: Conjunctiva Clear HENT: Yes: Atraumatic Neck: Yes: Supple Cardiovascular: Yes: S1, S2 Respiratory: Yes: CTA Bilaterally Gastrointestinal: Yes: Soft Renal/: Yes: Incontinence Extremities: Yes: Other (right bka, left heel ulcer) Edema: No Neurological: Yes: Confusion Labs: CBC, BMP 06/04/18 05:25 06/04/18 05:25 Laboratory Tests 06/03/18 06/04/18 06/04/18 22:43 05:25 05:25 Hgb 9.0 L 9.3 L Sodium 137 Potassium 3.6 BUN 44 H Creatinine 3.9 H Imaging - Results Chest X-ray: Report Reviewed Problem List - Problems (1) Decubitus ulcer, heel Code(s): L89.609 - PRESSURE ULCER OF UNSPECIFIED HEEL, UNSPECIFIED STAGE (2) Anemia Code(s): D64.9 - ANEMIA, UNSPECIFIED (3) CHF (congestive heart failure) Code(s): I50.9 - HEART FAILURE, UNSPECIFIED (4) ESRD (end stage renal disease) on dialysis Code(s): N18.6 - END STAGE RENAL DISEASE; Z99.2 - DEPENDENCE ON RENAL DIALYSIS Assessment/Plan Current Medications Generic Name Dose Route Start Last Admin Trade Name Freq PRN Reason Stop Dose Admin Amlodipine Besylate 10 mg 06/04/18 10:00 06/04/18 10:56 Norvasc - PO 10 mg DAILY ROSIE Administration Artificial Tears 1 drop 06/04/18 02:15 Artificial Tears OU BID PRN DRY EYES Aspirin 81 mg 06/04/18 10:00 06/04/18 10:55 Ecotrin - PO 81 mg DAILY ROSIE Administration Atorvastatin Calcium 40 mg 06/04/18 22:00 Lipitor - PO HS ROSIE Calcium Acetate 667 mg 06/04/18 08:00 06/04/18 10:59 Phoslo - PO Not Given TIDCM ROSIE Carvedilol 12.5 mg 06/04/18 10:00 06/04/18 10:55 Coreg - PO 12.5 mg BID ROSIE Administration Citalopram Hydrobromide 20 mg 06/04/18 10:00 06/04/18 10:54 Celexa - PO 20 mg DAILY ROSIE Administration Clopidogrel Bisulfate 75 mg 06/04/18 10:00 06/04/18 10:55 Plavix - PO 75 mg DAILY ROSIE Administration Collagenase 1 applic 06/04/18 10:00 06/04/18 10:57 Santyl - TP 1 applic DAILY ROSIE Administration Protocol Divalproex Sodium 125 mg 06/04/18 10:00 Depakote - PO BID ROSIE Docusate Sodium 300 mg 06/04/18 22:00 Colace - PO HS ROSIE Folic Acid 1 mg 06/04/18 10:00 06/04/18 10:55 Folic Acid - PO 1 mg DAILY ROSIE Administration Heparin Sodium (Porcine) 5,000 unit 06/04/18 10:00 06/04/18 10:56 Heparin - SQ 5,000 unit BID ROSIE Administration Insulin Detemir 10 units 06/04/18 22:00 Levemir Vial SQ HS [facility] Multi-Ingredient Ointment 454 gm 06/04/18 10:07 06/04/18 10:58 Zinc Oxide 20% Topical Oint TP 1 applic ASDIR [facility] Administration Multivitamins 1 each 06/04/18 10:00 06/04/18 10:56 Total B With C - PO 1 each DAILY [facility] Administration Quetiapine Fumarate 12.5 mg 06/04/18 10:00 06/04/18 10:55 Seroquel - PO 12.5 mg BID ROSIE Administration Ranitidine HCl 150 mg 06/04/18 10:00 06/04/18 10:55 Zantac - PO 150 mg DAILY ROSIE Administration Tamsulosin HCl 0.4 mg 06/04/18 22:00 Flomax - PO HS [facility] Impression 1. ESRD 2. anemia 3. HTN 4. Chol 5. DM 6. BPH 7. CAD 8. PVD 9. CHF 10. heel ulcer 11. depression Plan - will arrange for HD tomorrow - 3 k bath - encourage PO intake - vascular eval - cont wound care - epogen for anemia - discussed with Dr Donovan
[2018-06-04] MEDS ORDERED: SODIUM CHLORIDE 250 ML IV PRN (13:26)
[2018-06-04] MEDS: DIVALPROEX SODIUM 125 MG TABLET E.C. PO SCH ×3 (14:10→21:44)
[2018-06-04 16:03] VITALS: BMI 23.1
--- NOTE | 2018-06-04 16:14 | EKG ---
Test Reason : Blood Pressure : / mmHG Vent. Rate : 066 BPM Atrial Rate : 066 BPM P-R Int : 170 ms QRS Dur : 098 ms QT Int : 506 ms P-R-T Axes : 051 -11 125 degrees QTc Int : 530 ms NORMAL SINUS RHYTHM LEFT VENTRICULAR HYPERTROPHY WITH REPOLARIZATION ABNORMALITY CANNOT RULE OUT SEPTAL INFARCT , AGE UNDETERMINED ABNORMAL ECG WHEN COMPARED WITH ECG OF 07-MAY-2018 11:17, QT HAS LENGTHENED Confirmed by MD CHARLOTTE, MARLI ([id number]) on 06/04/2018 4:14:37 PM Referred By: Confirmed By:MARLI PORTER MD
[2018-06-04] MEDS ORDERED: TAMSULOSIN HCL 0.4 MG CAP PO SCH (22:00)
[2018-06-04] MEDS ORDERED: INSULIN (LEVEMIR) 100 UNITS/ML UNITS SQ SCH (22:00)
[2018-06-04] MEDS ORDERED: ATORVASTATIN CA 40 MG TABLET (FP) PO SCH (22:00)
[2018-06-04] MEDS ORDERED: DOCUSATE SODIUM 100 MG CAPSULE (FP) PO SCH (22:00)
[2018-06-05] MEDS: CALCIUM ACETATE 667 MG CAPSULE (FP) PO SCH ×3 (09:17→16:35)
[2018-06-05] MEDS ORDERED: EPOETIN ALFA 6,000 UNIT, EPOETIN ALFA 2,000 UNIT IVPUSH ONE (09:45)
[2018-06-05 10:40] LABS: HEMOGLOBIN 8.8 GM/dL (11.7-16.9); MCH 30.6 pg (25.7-33.7); MCHC 33.8 g/dl (32.0-35.9); MEAN CELL VOLUME 90.4 fl (80-96); MEAN PLT VOLUME 6.4 fl (7.5-11.1); PLATELET COUNT 321 K/MM3 (134-434); RBC 2.87 M/mm3 (4.00-5.60); RDW 18.3 % (11.9-15.9)
--- NOTE | 2018-06-05 11:08 | DS ---
Physical Examination Vital Signs: Vital Signs Temperature 98.8 F 06/05/18 10:20 Pulse Rate 58 L 06/05/18 10:50 Respiratory Rate 18 06/05/18 10:50 Blood Pressure 128/50 L 06/05/18 10:50 O2 Sat by Pulse Oximetry (%) 98 06/04/18 21:00 Constitutional: Yes: No Distress, Calm Cardiovascular: Yes: Regular Rate and Rhythm Respiratory: Yes: CTA Bilaterally Gastrointestinal: Yes: Normal Bowel Sounds, Soft. No: Tenderness Edema: No Labs: CBC, BMP 06/05/18 10:20 Discharge Summary Reason For Visit: left heel non healing wound Current Active Problems Decubitus ulcer, heel (Acute) Functional quadriplegia (Acute) Hyperglycemia (Acute) Hypokalemia (Acute) UTI (urinary tract infection) (Acute) Hospital Course: Here for poor wound heeling-- sent by NH- seen by Vascular /wound MD- Dr Schofield Afebrile, no leukocytosis. L heel with large stable eschar. No erythema or drainage noted. Milind removed from R BKA incision site. -[place] L heel with Betadine daily, cover with 4x4/kerlix -Offloading to L heel at all times Pt is clinically stable for dc to [place] Condition: Improved - Instructions Referrals: Bernardo Del Valle MD [Primary Care Provider] - Disposition: [facility] FACILITY - Home Medications Comprehensive Discharge Medication List: Ambulatory Orders Carvedilol [Coreg -] 12.5 mg PO BID #60 tablet 12/18/17 Tamsulosin HCl [Flomax -] 0.4 mg PO HS #30 cap.er.24h 12/18/17 Amlodipine Besylate 10 mg PO DAILY 02/17/18 Aspirin [Adult Aspirin] 81 mg PO DAILY 02/17/18 Atorvastatin Ca [Lipitor] 40 mg PO HS 02/17/18 Collagenase Clostridium Hist. [Santyl -] 1 applic TP DAILY 02/17/18 Divalproex [Depakote -] 125 mg PO BID 02/17/18 Docusate Sodium 300 mg PO HS 02/17/18 Folic Acid 1 mg PO DAILY 02/17/18 Insulin Glargine,Hum.rec.anlog [Lantus Solostar] 10 unit SQ HS 02/17/18 Calcium Acetate [Phoslo -] 667 mg PO TIDCM 03/28/18 Citalopram Hydrobromide [Celexa -] 20 mg PO DAILY 03/28/18 Clopidogrel Bisulfate [Plavix -] 75 mg PO DAILY 03/28/18 Dextran 70/Hypromellose/Pf [Artificial Tears Drops] 1 each OU BID PRN 03/28/18 Famotidine 20 mg PO DAILY 03/28/18 Insulin Lispro [Humalog] unit SQ BID 03/28/18 Vitamin B Complex [Balance B-50] 1 each PO DAILY 03/28/18 Zinc Oxide 20% Topical Oint 454 gm NR ASDIR 03/28/18 Gabapentin [Neurontin -] 100 mg PO BID #30 capsule 05/09/18 Haloperidol [Haldol -] 2 mg PO TID PRN #60 tablet 05/09/18 Quetiapine Fumarate [Seroquel -] 50 mg PO Q12H PRN #60 tablet 05/09/18
[2018-06-05 11:19] LABS: ALBUMIN 2.3 g/dl (3.4-5.0); ALK PHOS 88 U/L (45-117); ANION GAP 13 MMOL/L (8-16); BILIRUBIN,TOTAL 0.5 mg/dL (0.2-1); BLOOD UREA NITROGEN 57 mg/dL (7-18); CALCIUM 8.2 mg/dL (8.5-10.1); CHLORIDE 101 mmol/L (98-107); CO2 24 mmol/L (21-32); CREATININE 5.1 mg/dL (0.55-1.3); GLUCOSE,RANDOM 141 mg/dL (74-106); POTASSIUM 3.7 mmol/L (3.5-5.1); SGOT/AST 17 U/L (15-37); SGPT/ALT 17 U/L (13-61); SODIUM 139 mmol/L (136-145); TOT PROT 6.9 g/dl (6.4-8.2)
[2018-06-05] MEDS ORDERED: EPOETIN ALFA 2,000 UNIT/1 ML VIAL IVPUSH ONE (13:26)
[2018-06-05] MEDS: amLODIPine BESYLATE 10 MG TABLET (FP) PO SCH (14:12)
[2018-06-05] MEDS: VITAMIN B COMPLEX W/C COMBO TABLET (FP) PO SCH (14:12)
[2018-06-05] MEDS: RANITIDINE HCL 150 MG TABLET (FP) PO SCH (14:12)
[2018-06-05] MEDS: ASPIRIN COATED 81 MG TABLET.EC PO SCH (14:12)
[2018-06-05] MEDS: CITALOPRAM HYDROBROMIDE 20 MG TABLET (FP) PO SCH (14:12)
[2018-06-05] MEDS: CLOPIDOGREL BISULFATE 75 MG TABLET (FP) PO SCH (14:12)
[2018-06-05] MEDS: FOLIC ACID 1 MG TABLET (FP) PO SCH (14:12)
[2018-06-05] MEDS ORDERED: PT OWN MED DRAWER 7, Y5N ONE (14:14)
[2018-06-05] MEDS: DIVALPROEX SODIUM 125 MG TABLET E.C. PO SCH (14:15)
[2018-06-05] MEDS: HEPARIN NA (PORCINE) 5,000 UNITS/ML 1ML VIAL SQ SCH (14:15)
[2018-06-05] MEDS: CARVEDILOL 12.5 MG TABLET (FP) PO SCH (14:15)
[2018-06-05] MEDS: QUEtiapine FUMARATE 25 MG TABLET (FP) PO SCH (14:16)
[2018-06-05] MEDS: COLLAGENASE CLOSTRIDIUM HIST. 30 GRAMS TUBE TP SCH (14:16)
[2018-06-05] MEDS: ZINC OXIDE 20% TOPICAL OINTMENT 454 GM JAR TP SCH (14:18)
[2018-06-05 14:30] LABS: CREATININE 1.2 mg/dL (0.55-1.3)
[2018-06-05 14:34] VITALS: BP 145/58; PULSE 62; TEMP 97.7
[2018-06-05] MEDS ORDERED: ACETAMINOPHEN 325 MG TABLET (FP) PO ONE (16:30)
--- NOTE | 2018-06-05 18:33 | PN ---
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 ESRD 2. anemia 3. HTN 4. Chol 5. DM 6. BPH 7. CAD 8. PVD 9. CHF 10. heel ulcer 11. depression Last Vital Signs Temp Pulse Resp BP Pulse Ox 97.7 F 62 20 145/58 L 96 06/05/18 14:32 06/05/18 14:32 06/05/18 14:32 06/05/18 14:32 06/05/18 09:00 Home Medications Medication Instructions Recorded Carvedilol [Coreg -] 12.5 mg PO BID #60 tablet 12/18/17 Tamsulosin HCl [Flomax -] 0.4 mg PO HS #30 cap.er.24h 12/18/17 Amlodipine Besylate 10 mg PO DAILY 02/17/18 Aspirin [Adult Aspirin] 81 mg PO DAILY 02/17/18 Atorvastatin Ca [Lipitor] 40 mg PO HS 02/17/18 Collagenase Clostridium Hist. 1 applic TP DAILY 02/17/18 [Santyl -] Divalproex [Depakote -] 125 mg PO BID 02/17/18 Docusate Sodium 300 mg PO HS 02/17/18 Folic Acid 1 mg PO DAILY 02/17/18 Insulin Glargine,Hum.rec.anlog 10 unit SQ HS 02/17/18 [Lantus Solostar] Calcium Acetate [Phoslo -] 667 mg PO TIDCM 03/28/18 Citalopram Hydrobromide [Celexa -] 20 mg PO DAILY 03/28/18 Clopidogrel Bisulfate [Plavix -] 75 mg PO DAILY 03/28/18 Dextran 70/Hypromellose/Pf 1 each OU BID PRN 03/28/18 [Artificial Tears Drops] Famotidine 20 mg PO DAILY 03/28/18 Insulin Lispro [Humalog Kwikpen unit SQ BID 03/28/18 U-100] Vitamin B Complex [Balance B-50] 1 each PO DAILY 03/28/18 Zinc Oxide 20% Topical Oint 454 gm NR ASDIR 03/28/18 Gabapentin [Neurontin -] 100 mg PO BID #30 capsule 05/09/18 Haloperidol [Haldol -] 2 mg PO TID PRN #60 tablet 05/09/18 Quetiapine Fumarate [Seroquel -] 50 mg PO Q12H PRN #60 tablet 05/09/18 s/p uneventful hemodialysis planning discharge today Plan agree with d/c plans
[2018-06-07 00:10] LABS: HBSAG SCREEN Negative (Negative); HEP A AB, IGM Negative (Negative); HEP B CORE AB, TOT Negative (Negative)
== END 2018-06-05 17:45 | DRG 592 ==
LOC: JER 19:59 → JERBED 06-04 00:06 → UNDOADMIN 06-04 02:09 → J7W 06-04 08:30
PROVIDERS: ADMIT Internal Medicine; ATTEND Internal Medicine
PROC: 5A1D70Z Performance of Urinary Filtration, Intermittent, Less than 6 Hours Per Day (ICD-10-PCS; principal; 2018-06-05)
DX: L89.620 Pressure ulcer of left heel, unstageable (principal); R53.2 Functional quadriplegia; N18.6 End stage renal disease; I13.2 Hypertensive heart and chronic kidney disease with heart failure and with stage 5 chronic kidney disease, or end stage renal disease; I50.30 Unspecified diastolic (congestive) heart failure; E11.22 Type 2 diabetes mellitus with diabetic chronic kidney disease; I25.10 Atherosclerotic heart disease of native coronary artery without angina pectoris; E78.5 Hyperlipidemia, unspecified; E11.51 Type 2 diabetes mellitus with diabetic peripheral angiopathy without gangrene; D64.9 Anemia, unspecified; E11.42 Type 2 diabetes mellitus with diabetic polyneuropathy; I25.2 Old myocardial infarction; N31.9 Neuromuscular dysfunction of bladder, unspecified; F31.9 Bipolar disorder, unspecified; R23.4 Changes in skin texture; E87.6 Hypokalemia; F03.90 Unspecified dementia, unspecified severity, without behavioral disturbance, psychotic disturbance, mood disturbance, and anxiety; F32.9 Major depressive disorder, single episode, unspecified; N40.0 Benign prostatic hyperplasia without lower urinary tract symptoms; Z89.519 Acquired absence of unspecified leg below knee; Z79.4 Long term (current) use of insulin; Z95.1 Presence of aortocoronary bypass graft; Z99.2 Dependence on renal dialysis; Z87.891 Personal history of nicotine dependence
CPT/HCPCS: 36415; 71045-TC-FY; 73630-TC-LT; 80048; 80053; 81003; 81015; 82565; 83735; 84100; 84520; 85025; 85027; 86704; 86706; 86708; 86803; 87086; 87340; 93005; 93010; 99285-25; J0885; J1644